=== PATIENT | male | born 1975 | race American Indian/Alaskan Native ===

== ENCOUNTER 2018-02-04 14:32 | Outpatient (CLI) | payer OTHER ==
[2018-02-04 15:14] LABS: Alanine Aminotransferase 9 units/L (7-56); Albumin 3.5 g/dL (3.9-5); BUN/Creatinine Ratio 11; Blood Urea Nitrogen 36 mg/dL (9-20); Calcium 9.2 mg/dL (8.4-10.2); Hemolysis Index 13
== END 2018-02-04 14:33 | disposition home or self-care (01) ==
LOC: LAB 14:32
PROVIDERS: ATTEND Internal Medicine
DX: E11.65 Type 2 diabetes mellitus with hyperglycemia (principal)
CPT/HCPCS: 36415; 80053

== ENCOUNTER 2018-03-17 09:54 | Emergency (ER) | payer MEDICAID, OTHER ==
[2018-03-17] MEDS ORDERED: ZOFRAN IV ONE (12:42)
[2018-03-17] MEDS ORDERED: PROTONIX IV ONE (12:42)
[2018-03-17] MEDS ORDERED: NACL 0.9% 50 ML ONE (12:56)
[2018-03-17] MEDS ORDERED: PROTONIX 80 MG in NACL 0.9% 100 ML IV SCH (13:00)
[2018-03-17 13:04] LABS: Basophils % (Auto) 0.8 % (0.0-1.8); Eosinophils % (Auto) 0.2 % (0.0-4.3); Hemoglobin 12.8 gm/dl (11.8-15.2); Lymphocytes # (Auto) 0.9 K/mm3 (1.2-5.4); Lymphocytes % (Auto) 19.4 % (13.4-35.0); Mean Corpuscular HGB Conc 34 % (32-34); Mean Corpuscular Hemoglobin 30 pg (28-32); Mean Corpuscular Volume 90 fl (84-94); Monocytes # (Auto) 0.3 K/mm3 (0.0-0.8); Platelet Count 244 K/mm3 (140-440); Red Blood Count 4.22 M/mm3 (3.65-5.03); Red Cell Distribution Width 13.9 % (13.2-15.2)
[2018-03-17 13:12] LABS: INR 0.89 (0.87-1.13)
--- NOTE | 2018-03-17 13:12 | Emergency Department Report ---
ED General Adult HPI - General Chief complaint: High BP Time Seen by Provider: 03/17/18 12:06 Source: patient Mode of arrival: Wheelchair Limitations: Physical Limitation - History of Present Illness Initial comments: Patient presents to the emergency department with a chief complaint of abdominal pain with nausea vomiting. Patient states the symptoms started this morning and after multiple episodes of vomiting he began to have some blood with his emesis. Patient states this has happened to him before and he think is due to his diabetes. Patient describes as normal pain is sharp and diffuse and denies anything making it better or worse. -: Sudden Location: abdomen Radiation: non-radiation Severity scale (0 -10): 8 Quality: burning, sharp Consistency: constant Improves with: none Worsens with: none Associated Symptoms: denies other symptoms Treatments Prior to Arrival: none - Related Data Previous Rx's Medication Instructions Recorded Last Taken Type Esomeprazole Magnesium [NexIUM] 20 mg PO QDAY #30 suspdr.pkt 03/17/18 Unknown Rx HYDROcodone/APAP 5-325 [Anderson 1 each PO Q6HR PRN #15 tablet 03/17/18 Unknown Rx 5/325] Metoclopramide [Reglan] 10 mg PO TID #21 tab 03/17/18 Unknown Rx Ondansetron [Zofran Odt] 4 mg PO Q4HR PRN #20 tab.rapdis 03/17/18 Unknown Rx Allergies Allergy/AdvReac Type Severity Reaction Status Date / Time No Known Allergies Allergy Verified 03/17/18 11:54 ED Review of Systems ROS: Stated complaint: Other details as noted in HPI Comment: All other systems reviewed and negative Constitutional: denies: chills, fever Eyes: denies: eye pain, eye discharge, vision change ENT: denies: ear pain, throat pain Respiratory: denies: cough, shortness of breath, wheezing Cardiovascular: denies: chest pain, palpitations Endocrine: no symptoms reported Gastrointestinal: abdominal pain, nausea, vomiting. denies: diarrhea Genitourinary: denies: urgency, dysuria Musculoskeletal: denies: back pain, joint swelling, arthralgia Skin: denies: rash, lesions Neurological: denies: headache, weakness, paresthesias Psychiatric: denies: anxiety, depression Hematological/Lymphatic: denies: easy bleeding, easy bruising ED Past Medical Hx - Past Medical History Previous Medical History?: Yes Hx Hypertension: Yes Hx Diabetes: Yes Hx Renal Disease: Yes - Surgical History Past Surgical History?: Yes Additional Surgical History: right foot amputation - Social History Smoking Status: Current Every Day Smoker Substance Use Type: None - Medications Home Medications: Home Medications Medication Instructions Recorded Confirmed Last Taken Type Esomeprazole Magnesium [NexIUM] 20 mg PO QDAY #30 suspdr.pkt 03/17/18 Unknown Rx HYDROcodone/APAP 5-325 [Anderson 1 each PO Q6HR PRN #15 tablet 03/17/18 Unknown Rx 5/325] Metoclopramide [Reglan] 10 mg PO TID #21 tab 03/17/18 Unknown Rx Ondansetron [Zofran Odt] 4 mg PO Q4HR PRN #20 tab.rapdis 03/17/18 Unknown Rx ED Physical Exam - General Limitations: Physical Limitation General appearance: alert, in no apparent distress - Head Head exam: Present: atraumatic, normocephalic - Eye Eye exam: Present: normal appearance, PERRL, EOMI - ENT ENT exam: Present: mucous membranes moist - Neck Neck exam: Present: normal inspection - Respiratory Respiratory exam: Present: normal lung sounds bilaterally. Absent: respiratory distress, wheezes, rales, rhonchi - Cardiovascular Cardiovascular Exam: Present: normal rhythm, tachycardia. Absent: systolic murmur, diastolic murmur, rubs, gallop - GI/Abdominal GI/Abdominal exam: Present: soft, tenderness, normal bowel sounds, other ( tenderness to palpation diffusely). Absent: distended - Rectal Rectal exam: Present: deferred - Extremities Exam Extremities exam: Present: normal inspection - Back Exam Back exam: Present: normal inspection - Neurological Exam Neurological exam: Present: alert, oriented X3, CN II-XII intact. Absent: motor sensory deficit - Psychiatric Psychiatric exam: Present: normal affect, normal mood - Skin Skin exam: Present: warm, dry, intact, normal color. Absent: rash ED Course Vital Signs 03/17/18 03/17/18 03/17/18 11:54 12:20 12:21 Temperature 99.2 F Pulse Rate 122 H 107 H Respiratory 16 13 Rate Blood Pressure 193/146 Blood Pressure 168/103 [right] O2 Sat by Pulse 98 99 98 Oximetry 03/17/18 03/17/18 03/17/18 12:30 13:00 13:30 Temperature Pulse Rate 101 H 97 H 102 H Respiratory 14 14 18 Rate Blood Pressure 190/101 159/88 165/96 Blood Pressure [right] O2 Sat by Pulse 96 96 97 Oximetry 03/17/18 03/17/18 03/17/18 14:36 15:00 15:30 Temperature Pulse Rate 108 H 111 H 103 H Respiratory 13 17 Rate Blood Pressure 177/118 177/118 158/106 Blood Pressure [right] O2 Sat by Pulse 98 99 Oximetry 03/17/18 16:00 Temperature Pulse Rate 102 H Respiratory 17 Rate Blood Pressure 177/109 Blood Pressure [right] O2 Sat by Pulse 96 Oximetry ED Medical Decision Making - Lab Data Result diagrams: 03/17/18 12:46 03/17/18 12:46 Lab Results 03/17/18 03/17/18 03/17/18 Range/Units 11:41 12:46 12:46 WBC 4.5 (4.5-11.0) K/mm3 RBC 4.22 (3.65-5.03) M/mm3 Hgb 12.8 (11.8-15.2) gm/dl Hct 38.0 (35.5-45.6) % MCV 90 (84-94) fl MCH 30 (28-32) pg MCHC 34 (32-34) % RDW 13.9 (13.2-15.2) % Plt Count 244 (140-440) K/mm3 Lymph % (Auto) 19.4 (13.4-35.0) % [place] % (Auto) 6.0 (0.0-7.3) % Eos % (Auto) 0.2 (0.0-4.3) % Baso % (Auto) 0.8 (0.0-1.8) % Lymph # 0.9 L (1.2-5.4) K/mm3 [place] # 0.3 (0.0-0.8) K/mm3 Eos # 0.0 (0.0-0.4) K/mm3 Baso # 0.0 (0.0-0.1) K/mm3 Seg Neutrophils % 73.6 H (40.0-70.0) % Seg Neutrophils # 3.3 (1.8-7.7) K/mm3 PT 12.5 (12.2-14.9) Sec. INR 0.89 (0.87-1.13) APTT 21.5 L (24.2-36.6) Sec. Sodium (137-145) mmol/L Potassium (3.6-5.0) mmol/L Chloride (98-107) mmol/L Carbon Dioxide (22-30) mmol/L Anion Gap mmol/L BUN (9-20) mg/dL Creatinine (0.8-1.5) mg/dL Estimated GFR ml/min BUN/Creatinine Ratio % Glucose (75-100) mg/dL POC Glucose 200 H (70-105) Calcium (8.4-10.2) mg/dL Total Bilirubin (0.1-1.2) mg/dL AST (5-40) units/L ALT (7-56) units/L Alkaline Phosphatase (35-129) units/L Total Protein (6.3-8.2) g/dL Albumin (3.9-5) g/dL Albumin/Globulin Ratio % Lipase (13-60) units/L 03/17/18 Range/Units 12:46 WBC (4.5-11.0) K/mm3 RBC (3.65-5.03) M/mm3 Hgb (11.8-15.2) gm/dl Hct (35.5-45.6) % MCV (84-94) fl MCH (28-32) pg MCHC (32-34) % RDW (13.2-15.2) % Plt Count (140-440) K/mm3 Lymph % (Auto) (13.4-35.0) % [place] % (Auto) (0.0-7.3) % Eos % (Auto) (0.0-4.3) % Baso % (Auto) (0.0-1.8) % Lymph # (1.2-5.4) K/mm3 [place] # (0.0-0.8) K/mm3 Eos # (0.0-0.4) K/mm3 Baso # (0.0-0.1) K/mm3 Seg Neutrophils % (40.0-70.0) % Seg Neutrophils # (1.8-7.7) K/mm3 PT (12.2-14.9) Sec. INR (0.87-1.13) APTT (24.2-36.6) Sec. Sodium 144 (137-145) mmol/L Potassium 4.1 (3.6-5.0) mmol/L Chloride 100.8 (98-107) mmol/L Carbon Dioxide 25 (22-30) mmol/L Anion Gap 22 mmol/L BUN 39 H (9-20) mg/dL Creatinine 3.7 H (0.8-1.5) mg/dL Estimated GFR 22 ml/min BUN/Creatinine Ratio 11 % Glucose 226 H (75-100) mg/dL POC Glucose (70-105) Calcium 10.2 (8.4-10.2) mg/dL Total Bilirubin 0.40 (0.1-1.2) mg/dL AST 22 (5-40) units/L ALT 14 (7-56) units/L Alkaline Phosphatase 120 (35-129) units/L Total Protein 7.4 (6.3-8.2) g/dL Albumin 3.7 L (3.9-5) g/dL Albumin/Globulin Ratio 1.0 % Lipase 12 L (13-60) units/L - Radiology Data Referring Physician: DANIELLA SHELTON Patient Name: JAVI SAN Date of : 1975 Sex: Male Report Date: 2018-03-17 Report Status: [place] [id number] Cat Scan Report Signed Patient: JAVI SAN MR#: [id number] : 1975 Acct :[id number] Age/Sex: 42 / M ADM Date: 03/17/18 Loc: ED Attending Dr: Ordering Physician: DANIELLA SHELTON MD Date of Service: 03/17/18 Procedure(s): CT abdomen pelvis wo con Accession Number(s): [id number] cc: DANIELLA SHELTON MD CT ABDOMEN PELVIS WITHOUT CONTRAST: HISTORY: abdominal pain. COMPARISON: none. TECHNIQUE: Helical CT in 1.25mm intervals without IV contrast. Sagittal and coronal reconstructions. FINDINGS: Lung bases: Normal. Liver: Normal. Biliary system: Normal. Pancreas: Normal. Spleen: Normal. Kidneys/ureters/bladder: There is marked distention of the bladder. No bladder filling defect or wall abnormality is appreciated. The kidneys and collecting systems are unremarkable. Adrenal glands: Normal. Aorta: Normal. Intestines: Normal. Appendix: Normal. Pelvic viscera: Normal. Ascites: None. Adenopathy: None. Musculoskeletal: Normal. IMPRESSION: No acute inflammatory process. Distended bladder. Correlate for bladder obstruction. Transcribed By: TTR Dictated By: LÁZARO ORTIZ JR, MD Electronically Authenticated By: LÁZARO ORTIZ JR, MD Signed Date/Time: 02/24 DD/ 13 TD/TT: 03/17/181414 Critical care attestation.: If time is entered above; I have spent that time in minutes in the direct care of this critically ill patient, excluding procedure time. ED Disposition Clinical Impression: Gastritis, Nausea & vomiting, Abdominal pain Disposition: TO HOME OR SELFCARE Is pt being admited?: No Does the pt Need Aspirin: No Condition: Stable Instructions: Gastritis (ED), Abdominal Pain (ED), Acute Nausea and Vomiting ( ED) Additional Instructions: return if worse Prescriptions: Esomeprazole Magnesium [NexIUM] 20 mg PO QDAY #30 suspdr.pkt HYDROcodone/APAP 5-325 [Anderson 5/325] 1 each PO Q6HR PRN #15 tablet PRN Reason: Pain Metoclopramide [Reglan] 10 mg PO TID #21 tab Ondansetron [Zofran Odt] 4 mg PO Q4HR PRN #20 tab.rapdis PRN Reason: Nausea Referrals: [facility] [Provider Group] - 3-5 Days YAZMIN FELIX MD [Staff Physician] - 3-5 Days Time of Disposition: 16:34
[2018-03-17 13:13] LABS: Partial Thromboplastin Time 21.5 Sec. (24.2-36.6)
[2018-03-17 13:27] LABS: Albumin 3.7 g/dL (3.9-5); Calcium 10.2 mg/dL (8.4-10.2)
--- NOTE | 2018-03-17 14:16 | Cat Scan Report ---
CT ABDOMEN PELVIS WITHOUT CONTRAST: HISTORY: abdominal pain. COMPARISON: none. TECHNIQUE: Helical CT in 1.25mm intervals without IV contrast. Sagittal and coronal reconstructions. FINDINGS: Lung bases: Normal. Liver: Normal. Biliary system: Normal. Pancreas: Normal. Spleen: Normal. Kidneys/ureters/bladder: There is marked distention of the bladder. No bladder filling defect or wall abnormality is appreciated. The kidneys and collecting systems are unremarkable. Adrenal glands: Normal. Aorta: Normal. Intestines: Normal. Appendix: Normal. Pelvic viscera: Normal. Ascites: None. Adenopathy: None. Musculoskeletal: Normal. IMPRESSION: No acute inflammatory process. Distended bladder. Correlate for bladder obstruction.
[2018-03-17] MEDS ORDERED: HALDOL IM ONE ×2 (14:27→14:38)
[2018-03-17 17:05] VITALS: BP 173/106
== END 2018-03-17 17:00 | disposition home or self-care (01) ==
LOC: XRAY 09:54 → ED 09:54 → EDSTATUS 10:32 → ED 17:00
DX: K29.70 Gastritis, unspecified, without bleeding (principal); R11.2 Nausea with vomiting, unspecified; I12.9 Hypertensive chronic kidney disease with stage 1 through stage 4 chronic kidney disease, or unspecified chronic kidney disease; E11.22 Type 2 diabetes mellitus with diabetic chronic kidney disease; N18.9 Chronic kidney disease, unspecified; F17.200 Nicotine dependence, unspecified, uncomplicated; Z89.431 Acquired absence of right foot
CPT/HCPCS: 36415; 74176; 80053; 82962; 83690; 85025; 85610; 85730; 96372; 96374; 96375; 99284; C9113; J1630; J2405

== ENCOUNTER 2018-03-27 11:24 | Outpatient (CLI) | payer OTHER ==
--- NOTE | 2018-03-27 17:59 | XRay Report ---
FINAL REPORT EXAM: XR KNEE 1-2V RT HISTORY: DEPRESSION, DIABETES, NERVE DAMAGE, DISABILITY EXAM TECHNIQUE: Frontal and lateral views right knee Comparison: None FINDINGS: t there is no evidence of fracture, subluxation, lytic or blastic change or periosteal reaction. There to be loss of space of the medial and lateral compartments of the tibiofemoral joint. The soft tissues are notable for evidence of atherosclerotic vascular calcification. IMPRESSION: 1. No evidence of acute bony abnormality. 2. Possible degenerative change tibiofemoral joint. If further imaging is required, MRI may be helpful. 3. Atherosclerotic vascular calcification.
--- NOTE | 2018-03-27 18:15 | XRay Report ---
FINAL REPORT EXAM: XR SHOULDER BILAT 2+V HISTORY: DEPRESSION, DIABETES, NERVE DAMAGE, DISABILITY EXAM TECHNIQUE: Frontal and Y-views both shoulders FINDINGS: The bony structures are unremarkable in appearance. The joint spaces appear to be maintained. The soft tissues are unremarkable. IMPRESSION: 1. No plain film evidence of bony or soft tissue abnormality. If further imaging is required, MRI may be helpful.
== END 2018-03-27 11:25 | disposition home or self-care (01) ==
LOC: XRAY 11:24
PROVIDERS: ATTEND Internal Medicine
DX: Z02.71 Encounter for disability determination (principal); I70.0 Atherosclerosis of aorta; E11.9 Type 2 diabetes mellitus without complications; F32.9 Major depressive disorder, single episode, unspecified; I10 Essential (primary) hypertension; Z87.891 Personal history of nicotine dependence

== ENCOUNTER 2018-07-10 17:04 | Outpatient (CLI) | payer MEDICAID ==
[2018-07-10 17:41] LABS: Basophils % (Auto) 0.7 % (0.0-1.8); Eosinophils # (Auto) 0.1 K/mm3 (0.0-0.4); Eosinophils % (Auto) 1.9 % (0.0-4.3); Hematocrit 36.4 % (35.5-45.6); Lymphocytes # (Auto) 1.3 K/mm3 (1.2-5.4); Lymphocytes % (Auto) 28.7 % (13.4-35.0); Mean Corpuscular HGB Conc 33 % (32-34); Mean Corpuscular Volume 91 fl (84-94); Monocytes # (Auto) 0.2 K/mm3 (0.0-0.8); Monocytes % (Auto) 4.7 % (0.0-7.3); Platelet Count 238 K/mm3 (140-440); Red Blood Count 3.98 M/mm3 (3.65-5.03); Red Cell Distribution Width 13.9 % (13.2-15.2)
[2018-07-10 17:50] LABS: Creatinine,Urine 88.3 mg/dL (0.1-20.0)
[2018-07-10 18:01] LABS: BUN/Creatinine Ratio 9; Blood Urea Nitrogen 38 mg/dL (9-20); Calcium 8.4 mg/dL (8.4-10.2)
[2018-07-10 18:02] LABS: Alanine Aminotransferase 9 units/L (7-56); Albumin 3.6 g/dL (3.9-5); Hemolysis Index 11
[2018-07-10 18:03] LABS: Protein/Creatinine Ratio,Urine 3.9
[2018-07-10 18:21] LABS: Bacteria,Urine 1+ /HPF (Negative); Bilirubin,Urine NEG (Negative); Blood,Urine NEG (Negative); Color,Urine Yellow (Yellow); Urobilinogen,Urine < 2.0 mg/dL (<2.0)
[2018-07-10 18:23] LABS: Protein,Urine >500 mg/dL (Negative)
== END 2018-07-10 17:05 | disposition home or self-care (01) ==
LOC: LAB 17:04
PROVIDERS: ATTEND Internal Medicine Nephrology
DX: I12.9 Hypertensive chronic kidney disease with stage 1 through stage 4 chronic kidney disease, or unspecified chronic kidney disease (principal); N18.4 Chronic kidney disease, stage 4 (severe); Z87.891 Personal history of nicotine dependence
CPT/HCPCS: 36415; 80053; 81001; 82570; 83970; 84100; 84156; 85025

== ENCOUNTER 2018-08-22 11:22 | Emergency (ER) | payer MEDICAID ==
[2018-08-22] MEDS ORDERED: HumuLIN R IV ONE ×3 (11:54→18:02)
[2018-08-22] MEDS ORDERED: NACL 0.9% 1000 ML 1,000 ML IV ONE ×4 (11:54→17:39)
--- NOTE | 2018-08-22 11:58 | Emergency Department Report ---
- General Chief complaint: Hyperglycemia Stated complaint: HIGH SUGAR/BLOOD PRESSURE Time Seen by Provider: 08/22/18 11:43 Source: EMS Mode of arrival: Ambulatory Limitations: No Limitations - History of Present Illness Initial comments: 42-year-old male with a past medical history of diabetes currently on insulin, hypertension, and chronic renal insufficiency presents to the hospital for high sugar and high blood pressure. Patient states he feels good other than pain at his left upper arm where AV fistula versus graft was placed 2 days ago. He has somewhat slowed speech but is alert and oriented and requesting water to drink because he is thirsty. He states his family called EMS. He denies nausea, vomiting, abdominal pain, cough, shortness of breath, or fever. 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 Patient states he did not take his blood pressure or insulin this morning but he is having difficulty remembering. EMS reports that family gave unknown dose of 70/30 this morning prior to arrival. - Related Data Previous Rx's Medication Instructions Recorded Last Taken Type Esomeprazole Magnesium [NexIUM] 20 mg PO QDAY #30 suspdr.pkt 03/17/18 Unknown Rx HYDROcodone/APAP 5-325 [[place] 1 each PO Q6HR PRN #15 tablet 03/17/18 Unknown Rx 5/325] Metoclopramide [Reglan] 10 mg PO TID #21 tab 03/17/18 Unknown Rx Ondansetron [Zofran Odt] 4 mg PO Q4HR PRN #20 tab.rapdis 03/17/18 Unknown Rx Allergies Allergy/AdvReac Type Severity Reaction Status Date / Time No Known Allergies Allergy Verified 03/17/18 11:54 ED Review of Systems ROS: Stated complaint: HIGH SUGAR/BLOOD PRESSURE Other details as noted in HPI Comment: All other systems reviewed and negative ED Past Medical Hx - Past Medical History Hx Hypertension: Yes Hx Diabetes: Yes Hx Renal Disease: Yes (chronic renal insufficiency) - Surgical History Additional Surgical History: right foot amputation. 08/2018 left arm AV access for dialysis - Social History Smoking Status: Current Every Day Smoker Substance Use Type: None - Medications Home Medications: Home Medications Medication Instructions Recorded Confirmed Last Taken Type Esomeprazole Magnesium [NexIUM] 20 mg PO QDAY #30 suspdr.pkt 03/17/18 Unknown Rx HYDROcodone/APAP 5-325 [[place] 1 each PO Q6HR PRN #15 tablet 03/17/18 Unknown Rx 5/325] Metoclopramide [Reglan] 10 mg PO TID #21 tab 03/17/18 Unknown Rx Ondansetron [Zofran Odt] 4 mg PO Q4HR PRN #20 tab.rapdis 03/17/18 Unknown Rx ED Physical Exam - General Limitations: No Limitations - Other Other exam information: General: No limitations, patient is alert in no acute distress Head exam: Atraumatic, normocephalic Eyes exam: Normal appearance, pupils equal reactive to light, extraocular movements intact ENT: Moist mucous membrane, normal oropharynx Neck exam: Normal inspection, full range of motion, no meningismus nontender Respiratory exam: Clear to auscultation bilateral, no wheezes, rales, crackles Cardiovascular: Normal rate and rhythm, normal heart sounds Abdomen: Soft, nondistended, and nontender, with normal bowel sounds, no rebound, or guarding Extremity: Full range of motion, left upper arm surgical site of fistula/graft with positive thrill. Some ecchymosis at the site without warmth or erythema. Tender to palpation. Peg intact without wound dehiscence or drainage. Back: Normal Inspection, full range of motion, no tenderness Neurologic: Alert, slow speech but clear, oriented x3, cranial nerves intact, no motor or sensory deficit Psychiatric: normal affect, normal mood Skin: Warm, dry, intact ED Course Vital Signs 08/22/18 08/22/18 08/22/18 11:56 12:00 12:16 Temperature 98 F Pulse Rate 83 Respiratory 16 Rate Blood Pressure 189/107 189/107 Blood Pressure 189/107 [Right] O2 Sat by Pulse 99 98 97 Oximetry 08/22/18 08/22/18 08/22/18 12:30 12:32 12:45 Temperature Pulse Rate 75 Respiratory Rate Blood Pressure 189/107 189/107 Blood Pressure [Right] O2 Sat by Pulse 96 98 Oximetry 08/22/18 08/22/18 08/22/18 12:50 13:00 13:15 Temperature Pulse Rate Respiratory 16 11 L 10 L Rate Blood Pressure 183/108 Blood Pressure [Right] O2 Sat by Pulse 97 98 Oximetry 08/22/18 08/22/18 08/22/18 13:31 13:45 14:00 Temperature Pulse Rate Respiratory 13 11 L 10 L Rate Blood Pressure 183/108 151/92 Blood Pressure [Right] O2 Sat by Pulse 98 97 Oximetry 08/22/18 08/22/18 08/22/18 14:15 14:30 15:00 Temperature Pulse Rate Respiratory 9 L 12 9 L Rate Blood Pressure 148/95 150/89 Blood Pressure [Right] O2 Sat by Pulse 97 96 Oximetry 08/22/18 08/22/18 08/22/18 15:15 15:30 15:45 Temperature Pulse Rate Respiratory 9 L 11 L 14 Rate Blood Pressure 155/91 155/91 Blood Pressure [Right] O2 Sat by Pulse 98 97 97 Oximetry 08/22/18 08/22/18 08/22/18 16:00 16:15 16:30 Temperature Pulse Rate Respiratory 10 L 10 L 10 L Rate Blood Pressure 167/95 155/91 154/87 Blood Pressure [Right] O2 Sat by Pulse 96 98 97 Oximetry 08/22/18 08/22/18 08/22/18 16:45 17:00 17:15 Temperature Pulse Rate Respiratory 9 L 9 L 10 L Rate Blood Pressure 154/87 142/83 154/87 Blood Pressure [Right] O2 Sat by Pulse 97 95 96 Oximetry 08/22/18 08/22/18 08/22/18 17:30 17:49 18:01 Temperature Pulse Rate Respiratory 10 L Rate Blood Pressure 140/81 140/81 140/81 Blood Pressure [Right] O2 Sat by Pulse 94 100 72 L Oximetry 08/22/18 08/22/18 08/22/18 18:31 18:46 19:00 Temperature Pulse Rate Respiratory Rate Blood Pressure 165/90 165/90 156/90 Blood Pressure [Right] O2 Sat by Pulse 97 96 Oximetry ED Medical Decision Making - Lab Data Result diagrams: 08/22/18 12:02 08/22/18 12:02 Lab Results 08/22/18 08/22/18 08/22/18 Range/Units 12:02 12:02 12:02 WBC 3.5 L (4.5-11.0) K/mm3 RBC 4.01 (3.65-5.03) M/mm3 Hgb 12.2 (11.8-15.2) gm/dl Hct 36.7 (35.5-45.6) % MCV 92 (84-94) fl MCH 31 (28-32) pg MCHC 33 (32-34) % RDW 13.1 L (13.2-15.2) % Plt Count 248 (140-440) K/mm3 Lymph % (Auto) 28.7 (13.4-35.0) % [place] % (Auto) 6.6 (0.0-7.3) % Eos % (Auto) 2.2 (0.0-4.3) % Baso % (Auto) 0.6 (0.0-1.8) % Lymph # 1.0 L (1.2-5.4) K/mm3 [place] # 0.2 (0.0-0.8) K/mm3 Eos # 0.1 (0.0-0.4) K/mm3 Baso # 0.0 (0.0-0.1) K/mm3 Seg Neutrophils % 61.9 (40.0-70.0) % Seg Neutrophils # 2.1 (1.8-7.7) K/mm3 VBG pH 7.304 L (7.320-7.420) Sodium 129 L (137-145) mmol/L Potassium 4.5 (3.6-5.0) mmol/L Chloride 91.1 L (98-107) mmol/L Carbon Dioxide 25 (22-30) mmol/L Anion Gap 17 mmol/L BUN 45 H (9-20) mg/dL Creatinine 4.6 H (0.8-1.5) mg/dL Estimated GFR 17 ml/min BUN/Creatinine Ratio 10 % Glucose 563 H* (75-100) mg/dL POC Glucose (70-105) Calcium 9.1 (8.4-10.2) mg/dL Phosphorus (2.5-4.5) mg/dL Magnesium (1.7-2.3) mg/dL Total Bilirubin 0.30 (0.1-1.2) mg/dL AST 18 (5-40) units/L ALT < 5 L (7-56) units/L Alkaline Phosphatase 110 (35-129) units/L Total Protein 7.0 (6.3-8.2) g/dL Albumin 3.7 L (3.9-5) g/dL Albumin/Globulin Ratio 1.1 % Urine Color (Yellow) Urine Turbidity (Clear) Urine pH (5.0-7.0) Ur Specific [place] (1.003-1.030) Urine Protein (Negative) mg/dL Urine Glucose (UA) (Negative) mg/dL Urine Ketones (Negative) mg/dL Urine Blood (Negative) Urine Nitrite (Negative) Urine Bilirubin (Negative) Urine Urobilinogen (<2.0) mg/dL Ur Leukocyte Esterase (Negative) Urine WBC (Auto) (0.0-6.0) /HPF Urine RBC (Auto) (0.0-6.0) /HPF U Epithel Cells (Auto) (0-13.0) /HPF Urine Bacteria (Auto) (Negative) /HPF 08/22/18 08/22/18 08/22/18 Range/Units 12:02 12:12 12:57 WBC (4.5-11.0) K/mm3 RBC (3.65-5.03) M/mm3 Hgb (11.8-15.2) gm/dl Hct (35.5-45.6) % MCV (84-94) fl MCH (28-32) pg MCHC (32-34) % RDW (13.2-15.2) % Plt Count (140-440) K/mm3 Lymph % (Auto) (13.4-35.0) % [place] % (Auto) (0.0-7.3) % Eos % (Auto) (0.0-4.3) % Baso % (Auto) (0.0-1.8) % Lymph # (1.2-5.4) K/mm3 [place] # (0.0-0.8) K/mm3 Eos # (0.0-0.4) K/mm3 Baso # (0.0-0.1) K/mm3 Seg Neutrophils % (40.0-70.0) % Seg Neutrophils # (1.8-7.7) K/mm3 VBG pH (7.320-7.420) Sodium (137-145) mmol/L Potassium (3.6-5.0) mmol/L Chloride (98-107) mmol/L Carbon Dioxide (22-30) mmol/L Anion Gap mmol/L BUN (9-20) mg/dL Creatinine (0.8-1.5) mg/dL Estimated GFR ml/min BUN/Creatinine Ratio % Glucose (75-100) mg/dL POC Glucose 471 H (70-105) Calcium (8.4-10.2) mg/dL Phosphorus 3.40 (2.5-4.5) mg/dL Magnesium 2.30 (1.7-2.3) mg/dL Total Bilirubin (0.1-1.2) mg/dL AST (5-40) units/L ALT (7-56) units/L Alkaline Phosphatase (35-129) units/L Total Protein (6.3-8.2) g/dL Albumin (3.9-5) g/dL Albumin/Globulin Ratio % Urine Color Straw (Yellow) Urine Turbidity Clear (Clear) Urine pH 5.0 (5.0-7.0) Ur Specific [place] 1.013 (1.003-1.030) Urine Protein 100 mg/dl (Negative) mg/dL Urine Glucose (UA) >=500 (Negative) mg/dL Urine Ketones Tr (Negative) mg/dL Urine Blood Sm (Negative) Urine Nitrite Neg (Negative) Urine Bilirubin Neg (Negative) Urine Urobilinogen < 2.0 (<2.0) mg/dL Ur Leukocyte Esterase Neg (Negative) Urine WBC (Auto) 1.0 (0.0-6.0) /HPF Urine RBC (Auto) 1.0 (0.0-6.0) /HPF U Epithel Cells (Auto) < 1.0 (0-13.0) /HPF Urine Bacteria (Auto) 1+ (Negative) /HPF 08/22/18 08/22/18 08/22/18 Range/Units 13:14 14:02 14:52 WBC (4.5-11.0) K/mm3 RBC (3.65-5.03) M/mm3 Hgb (11.8-15.2) gm/dl Hct (35.5-45.6) % MCV (84-94) fl MCH (28-32) pg MCHC (32-34) % RDW (13.2-15.2) % Plt Count (140-440) K/mm3 Lymph % (Auto) (13.4-35.0) % [place] % (Auto) (0.0-7.3) % Eos % (Auto) (0.0-4.3) % Baso % (Auto) (0.0-1.8) % Lymph # (1.2-5.4) K/mm3 [place] # (0.0-0.8) K/mm3 Eos # (0.0-0.4) K/mm3 Baso # (0.0-0.1) K/mm3 Seg Neutrophils % (40.0-70.0) % Seg Neutrophils # (1.8-7.7) K/mm3 VBG pH (7.320-7.420) Sodium (137-145) mmol/L Potassium (3.6-5.0) mmol/L Chloride (98-107) mmol/L Carbon Dioxide (22-30) mmol/L Anion Gap mmol/L BUN (9-20) mg/dL Creatinine (0.8-1.5) mg/dL Estimated GFR ml/min BUN/Creatinine Ratio % Glucose (75-100) mg/dL POC Glucose 436 H 312 H 287 H (70-105) Calcium (8.4-10.2) mg/dL Phosphorus (2.5-4.5) mg/dL Magnesium (1.7-2.3) mg/dL Total Bilirubin (0.1-1.2) mg/dL AST (5-40) units/L ALT (7-56) units/L Alkaline Phosphatase (35-129) units/L Total Protein (6.3-8.2) g/dL Albumin (3.9-5) g/dL Albumin/Globulin Ratio % Urine Color (Yellow) Urine Turbidity (Clear) Urine pH (5.0-7.0) Ur Specific [place] (1.003-1.030) Urine Protein (Negative) mg/dL Urine Glucose (UA) (Negative) mg/dL Urine Ketones (Negative) mg/dL Urine Blood (Negative) Urine Nitrite (Negative) Urine Bilirubin (Negative) Urine Urobilinogen (<2.0) mg/dL Ur Leukocyte Esterase (Negative) Urine WBC (Auto) (0.0-6.0) /HPF Urine RBC (Auto) (0.0-6.0) /HPF U Epithel Cells (Auto) (0-13.0) /HPF Urine Bacteria (Auto) (Negative) /HPF 08/22/18 Range/Units 16:41 WBC (4.5-11.0) K/mm3 RBC (3.65-5.03) M/mm3 Hgb (11.8-15.2) gm/dl Hct (35.5-45.6) % MCV (84-94) fl MCH (28-32) pg MCHC (32-34) % RDW (13.2-15.2) % Plt Count (140-440) K/mm3 Lymph % (Auto) (13.4-35.0) % [place] % (Auto) (0.0-7.3) % Eos % (Auto) (0.0-4.3) % Baso % (Auto) (0.0-1.8) % Lymph # (1.2-5.4) K/mm3 [place] # (0.0-0.8) K/mm3 Eos # (0.0-0.4) K/mm3 Baso # (0.0-0.1) K/mm3 Seg Neutrophils % (40.0-70.0) % Seg Neutrophils # (1.8-7.7) K/mm3 VBG pH (7.320-7.420) Sodium (137-145) mmol/L Potassium (3.6-5.0) mmol/L Chloride (98-107) mmol/L Carbon Dioxide (22-30) mmol/L Anion Gap mmol/L BUN (9-20) mg/dL Creatinine (0.8-1.5) mg/dL Estimated GFR ml/min BUN/Creatinine Ratio % Glucose (75-100) mg/dL POC Glucose 235 H (70-105) Calcium (8.4-10.2) mg/dL Phosphorus (2.5-4.5) mg/dL Magnesium (1.7-2.3) mg/dL Total Bilirubin (0.1-1.2) mg/dL AST (5-40) units/L ALT (7-56) units/L Alkaline Phosphatase (35-129) units/L Total Protein (6.3-8.2) g/dL Albumin (3.9-5) g/dL Albumin/Globulin Ratio % Urine Color (Yellow) Urine Turbidity (Clear) Urine pH (5.0-7.0) Ur Specific [place] (1.003-1.030) Urine Protein (Negative) mg/dL Urine Glucose (UA) (Negative) mg/dL Urine Ketones (Negative) mg/dL Urine Blood (Negative) Urine Nitrite (Negative) Urine Bilirubin (Negative) Urine Urobilinogen (<2.0) mg/dL Ur Leukocyte Esterase (Negative) Urine WBC (Auto) (0.0-6.0) /HPF Urine RBC (Auto) (0.0-6.0) /HPF U Epithel Cells (Auto) (0-13.0) /HPF Urine Bacteria (Auto) (Negative) /HPF - EKG Data -: EKG Interpreted by Me EKG shows normal: sinus rhythm, axis (qrs 51), QRS complexes (rsd 94), ST-T waves (no stemi) Rate: normal (75) - Medical Decision Making Patient had an extended below ED stay. His sugar was elevated but no signs of DKA. His blood pressure was elevated but no signs of hypertensive emergency. BP improved at the clonidine. Creatinine is stable. Patient received several liters of normal saline in the ED before he was able to produce a urine sample. Patient glucose was in the 200s prior to receiving additional insulin. He will be discharged home to take his medications as prescribed. - Differential Diagnosis DKA, infection, hypertensive emergency, HHNK Critical Care Time: No Critical care attestation.: If time is entered above; I have spent that time in minutes in the direct care of this critically ill patient, excluding procedure time. ED Disposition Clinical Impression: Uncontrolled diabetes mellitus, Uncontrolled hypertension Disposition: DC-01 TO HOME OR SELFCARE Is pt being admited?: No Does the pt Need Aspirin: No Condition: Stable Instructions: Hypertension (ED), Diabetes Mellitus Type 2 in Adults (ED) Additional Instructions: Continue your medication as prescribed. Follow up with your doctor or the clinic/doctor provided. Return if symptoms worsen as indicated by your discharge instructions Referrals: DAT MIKE MD [Primary Care Provider] - 3-5 Days Time of Disposition: 19:25
[2018-08-22] MEDS ORDERED: CATAPRES PO ONE (12:06)
[2018-08-22 12:34] LABS: Basophils % (Auto) 0.6 % (0.0-1.8); Eosinophils # (Auto) 0.1 K/mm3 (0.0-0.4); Eosinophils % (Auto) 2.2 % (0.0-4.3); Hematocrit 36.7 % (35.5-45.6); Hemoglobin 12.2 gm/dl (11.8-15.2); Lymphocytes % (Auto) 28.7 % (13.4-35.0); Mean Corpuscular HGB Conc 33 % (32-34); Mean Corpuscular Volume 92 fl (84-94); Monocytes # (Auto) 0.2 K/mm3 (0.0-0.8); Monocytes % (Auto) 6.6 % (0.0-7.3); Platelet Count 248 K/mm3 (140-440); Red Blood Count 4.01 M/mm3 (3.65-5.03); Red Cell Distribution Width 13.1 % (13.2-15.2)
[2018-08-22] MEDS ORDERED: D50W (25GM) Syringe IV PRN (12:43)
[2018-08-22 12:49] LABS: Albumin 3.7 g/dL (3.9-5); BUN/Creatinine Ratio 10; Blood Urea Nitrogen 45 mg/dL (9-20); Calcium 9.1 mg/dL (8.4-10.2); Hemolysis Index 5
[2018-08-22] MEDS ORDERED: HumuLIN R 100 UNITS in NACL 0.9% 99 ML IV SCH (13:00)
[2018-08-22 13:10] LABS: Alanine Aminotransferase < 5 units/L (7-56)
[2018-08-22] MEDS ORDERED: NACL 0.9% 100 ML ONE (15:49)
[2018-08-22 18:51] LABS: Bacteria,Urine 1+ /HPF (Negative); Bilirubin,Urine NEG (Negative); Blood,Urine SM (Negative); Color,Urine Straw (Yellow); Urobilinogen,Urine < 2.0 mg/dL (<2.0)
[2018-08-22 20:52] VITALS: BP 138/74
== END 2018-08-22 20:43 | disposition home or self-care (01) ==
LOC: ED 11:22
DX: E11.65 Type 2 diabetes mellitus with hyperglycemia (principal); I10 Essential (primary) hypertension
CPT/HCPCS: 36415; 80053; 81001; 82805; 82962; 83735; 84100; 85025; 93005; 93010; 96361; 96374; 96376; 99284; J7030; J1815

== ENCOUNTER 2018-11-06 08:08 | Inpatient (IN) | payer MEDICAID ==
[2018-11-06] MEDS ORDERED: CALCIUM CHLORIDE IV ONE ×2 (08:15→10:02)
[2018-11-06] MEDS ORDERED: NACL 0.9% 1000 ML 1,000 ML ONE ×2 (08:15→16:27)
[2018-11-06] MEDS ORDERED: ADRENALIN ONE (08:15)
[2018-11-06] MEDS ORDERED: ARTIFICIAL TEARS OPHTH OINT OU PRN (08:26)
[2018-11-06] MEDS ORDERED: VASELINE LIP THERAPY TP PRN (08:26)
[2018-11-06] MEDS ORDERED: NACL 0.9% 1000 ML 1,000 ML IV ONE ×5 (08:33→13:11)
[2018-11-06] MEDS ORDERED: MAXIPIME/NS 2 GM/100 ML 2 GM/100 ML BAG IV ONE (08:35)
--- NOTE | 2018-11-06 08:35 | Emergency Department Report ---
ED General Adult HPI - General Stated complaint: DIABETIC COMA Time Seen by Provider: 11/06/18 08:08 Source: EMS Mode of arrival: Stretcher Limitations: Altered Mental Status, Physical Limitation - History of Present Illness Initial comments: Patient is a 42-year-old male that presents to the emergency room for unresponsiveness. Patient's last known well time 10 PM night prior. Patient brought in by EMS patient's had his sugar checked by EMS read high. Patient is a known noncompliant diabetic. Illness report received. EMS states the patient was found down in feces and urine. Mother called EMS. Mother stated to EMS that the patient is noncompliant with his insulin. -: Sudden Treatments Prior to Arrival: none - Related Data Previous Rx's Medication Instructions Recorded Last Taken Type Esomeprazole Magnesium [NexIUM] 20 mg PO QDAY #30 suspdr.pkt 03/17/18 Unknown Rx HYDROcodone/APAP 5-325 [[place] 1 each PO Q6HR PRN #15 tablet 03/17/18 Unknown Rx 5/325] Metoclopramide [Reglan] 10 mg PO TID #21 tab 03/17/18 Unknown Rx Ondansetron [Zofran Odt] 4 mg PO Q4HR PRN #20 tab.rapdis 03/17/18 Unknown Rx Allergies Allergy/AdvReac Type Severity Reaction Status Date / Time No Known Allergies Allergy Verified 03/17/18 11:54 ED Review of Systems ROS: Stated complaint: DIABETIC COMA Other details as noted in HPI Comment: Unobtainable due to pts medical conditions ED Past Medical Hx - Past Medical History Previous Medical History?: Yes Hx Hypertension: Yes Hx Diabetes: Yes Hx Renal Disease: Yes (chronic renal insufficiency) - Surgical History Past Surgical History?: Yes Additional Surgical History: right foot amputation. 08/2018 left arm AV access for dialysis - Family History Family history: no significant - Social History Smoking Status: Current Every Day Smoker Substance Use Type: None - Medications Home Medications: Home Medications Medication Instructions Recorded Confirmed Last Taken Type Esomeprazole Magnesium [NexIUM] 20 mg PO QDAY #30 suspdr.pkt 03/17/18 Unknown Rx HYDROcodone/APAP 5-325 [[place] 1 each PO Q6HR PRN #15 tablet 03/17/18 Unknown Rx 5/325] Metoclopramide [Reglan] 10 mg PO TID #21 tab 03/17/18 Unknown Rx Ondansetron [Zofran Odt] 4 mg PO Q4HR PRN #20 tab.rapdis 03/17/18 Unknown Rx ED Physical Exam - General Limitations: Altered Mental Status, Physical Limitation General appearance: obtunded - Head Head exam: Present: atraumatic, normocephalic - Eye Eye exam: Present: other (peoples fixed and dilated) - ENT ENT exam: Present: mucous membranes dry - Neck Neck exam: Present: normal inspection - Respiratory Respiratory exam: Present: decreased breath sounds - Cardiovascular Cardiovascular Exam: Present: regular rate, normal rhythm, tachycardia - GI/Abdominal GI/Abdominal exam: Present: soft - Rectal Rectal exam: Present: deferred - Extremities Exam Extremities exam: Present: normal inspection - Neurological Exam Neurological exam: Present: altered - Expanded Neurological Exam Expanded Best Eye Response (Ericka): (1) no response Best Motor Response (Ericka): (1) no motor response Best Verbal Response ([place]): (1) no verbal response [place] Total: 3 - Skin Skin exam: Present: warm, dry, intact, normal color. Absent: rash ED Course Vital Signs 11/06/18 11/06/18 11/06/18 08:02 08:21 08:28 Temperature Pulse Rate 69 Pulse Rate [ Right Radial] Respiratory 8 L Rate Blood Pressure 95/26 90/44 95/23 Blood Pressure [Left] O2 Sat by Pulse 98 100 Oximetry 11/06/18 11/06/18 11/06/18 08:40 09:00 09:19 Temperature Pulse Rate 122 H 116 H 115 H Pulse Rate [ Right Radial] Respiratory 24 25 H 100 H Rate Blood Pressure 187/62 99/33 126/45 Blood Pressure 91/26 [Left] O2 Sat by Pulse 100 100 100 Oximetry 11/06/18 11/06/18 11/06/18 09:21 09:41 10:01 Temperature Pulse Rate 209 H 188 H Pulse Rate [ Right Radial] Respiratory 26 H 23 24 Rate Blood Pressure 91/26 88/32 83/31 Blood Pressure [Left] O2 Sat by Pulse 100 100 100 Oximetry 11/06/18 11/06/18 11/06/18 10:21 10:38 10:41 Temperature Pulse Rate Pulse Rate [ Right Radial] Respiratory 23 35 H 33 H Rate Blood Pressure 79/21 87/36 Blood Pressure [Left] O2 Sat by Pulse 100 100 100 Oximetry 11/06/18 11/06/18 11/06/18 10:42 11:01 11:05 Temperature 93.2 F L Pulse Rate 105 H Pulse Rate [ Right Radial] Respiratory 41 H Rate Blood Pressure 96/39 Blood Pressure [Left] O2 Sat by Pulse 100 Oximetry 11/06/18 11/06/18 11/06/18 11:25 11:36 11:40 Temperature Pulse Rate 20 L Pulse Rate [ Right Radial] Respiratory 26 H Rate Blood Pressure 96/37 82/34 91/36 Blood Pressure [Left] O2 Sat by Pulse 100 100 100 Oximetry 11/06/18 11/06/18 11/06/18 12:00 12:20 14:22 Temperature Pulse Rate 106 H Pulse Rate [ 105 H Right Radial] Respiratory 24 25 H Rate Blood Pressure 89/37 96/39 Blood Pressure [Left] O2 Sat by Pulse 100 100 Oximetry - Reevaluation(s) Reevaluation #1: Patient brought in by EMS. Report received from EMS. Patient intubated upon arrival. Patient intubated without difficulty, See procedure note. Prior to arrival cardiology consultation for abnormal EKG sent over by EMS. 11/06/18 08:05 Dr. Cevallos cardio at bedside. Patient went into cardiac arrest, see code note./ 11/06/18 08:15 Patient had spontaneous return of circulation. 11/06/18 08:22 Patient's blood pressure better. The patient on the ventilator. Chest x-ray done. 11/06/18 08:40 Central line placed. Timeout done. See procedure note. Central line placed in the right femoral without difficulty. Epi drip will be started after central line placed 11/06/18 09:35 Will be given fluids. Patient's in DKA and will be given DKA protocol along with insulin and calcium. Patient will be given bicarbonate for acidosis. 11/06/18 10:[address] We'll continue to monitor blood pressure and increase e pinephrine drip and give fluids 11/06/18 11:18 Reevaluation #2: Discussed case with family. Family wants everything done and wants patient to be a full code 11/06/18 12:15 Discussed all results with family. Patient will be admitted to the hospitalist service and into the ICU. Family agrees to plan of care. 11/06/18 12:32 She will be given more fluids and Kayexalate. 11/06/18 13:15 - Consultations Consultation #1: Dr. cevallos at bedside 11/06/18 08:20 Discussed case again with Dr. Cevallos and Dr. Cevallos's to see the patient 11/06/18 10:10 Consultation #2: Hospitalist consulted for admission. Hospitalist to admit patient. Hospitalist to assume care patient. 11/06/18 12:32 - Central Line Placement Right Femoral Consent Obtained: emergent situation Time Out Performed: Yes Patient Placed on Monitor/Pulse Ox: Yes MD Prep: mask, gown, gloves Central Line Prep: Chlorhexidine scrub, sterile drapes applied Ultrasound Used for Placement: Yes Central Line Lumen Inserted: triple Bloods Obtained for Lab: Yes Central Line Position: good blood return, all ports aspirated, flus, sutured in place with 2-0 Dressing Applied: Tegaderm Patient Tolerated Procedure: well Complications: none - EJ/Peripheral Line Neck L Time Out Performed: Yes Indications: nurses unable to establis Skin Cleansed in Sterile Fashion: Yes Size: 20 Dressing Placed: Tegaderm Patient Tolerated Procedure: well - Intubation Time Out Performed: Yes Sedative: Etomidate Paralytic: Succinylcholine Laryngoscope: fiberoptic video scope Size: 4 Assist Device Used: fiberoptic device ET Tube Size: 7.5 Tube Secured Depth (cm): 24 Tube Secured Location: teeth Tube Placement Confirmation: visualized tube passing t, equal breath sounds bilat, no breath sounds over epi, confirmation by capnometr Patient Tolerated Procedure: well Intubation Complications: none ED Medical Decision Making - Lab Data Result diagrams: 11/06/18 09:02 11/06/18 14:15 - EKG Data -: EKG Interpreted by Me EKG shows normal: sinus rhythm, axis Rate: tachycardia - EKG Data Interpretation: LVH, other (wide QRS complex. Spiked T waves.) - Radiology Data Radiology results: report reviewed, image reviewed interpreted by me: X-ray done and it shows good position of ET tube. CT HEAD WITHOUT CONTRAST: IMPRESSION: No acute intracranial process. Mild volume loss and chronic white matter changes. Few small chronic lacunar infarcts as described. - Medical Decision Making Patient is a 42-year-old male that presents emergency room for unresponsive episode. Patient minimally responsive upon arrival in the ER. Patient was intubated immediately. After intubation patient had a cardiac arrest and during recess cessation. Had spontaneous return of circulation. Patient placed on epi drip. Patient given multiple saline boluses. Patient has multiple lab abnormalities to include but not limited to metabolic acidosis, DKA, hyperkalemia, elevated WBC. Patient admits since the ICU and to the hospitalist service. Patient's CT of the head negative. Patient's chest x-ray shows ET tube in good place. Patient given patient also had a left EJ placed for immediate access on arrival. - Differential Diagnosis DKA. Acidosis. Unresponsive. Prolonged downtime Critical Care Time: Yes Critical care attestation.: If time is entered above; I have spent that time in minutes in the direct care of this critically ill patient, excluding procedure time. Critical Care Time: 80 minutes ED Disposition Clinical Impression: Unresponsive, Cardiac arrest, Signs of return of spontaneous circulation, Metabolic acidosis DKA (diabetic ketoacidoses) Qualifiers: Diabetes mellitus type: type 2 Diabetes mellitus complication detail: with coma Qualified Code(s): E11.11 - Type 2 diabetes mellitus with ketoacidosis with coma Hypotension Qualifiers: Hypotension type: unspecified hypotension type Qualified Code(s): I95.9 - Hypotension, unspecified Disposition: DC-09 OP ADMIT IP TO THIS HOSP Is pt being admited?: Yes Does the pt Need Aspirin: No Condition: Critical Time of Disposition: 13:16
[2018-11-06] MEDS ORDERED: SUBLIMAZE IV PRN (08:37)
--- NOTE | 2018-11-06 08:46 | XRay Report ---
AP CHEST: HISTORY: Endotracheal tube placement The endotracheal tube terminates 6 cm superior to the rolando. Nasogastric tube terminates in the cardia of the stomach. AP view of the chest demonstrates a normal mediastinal and cardiac contour with clear lungs and normal bony and soft tissue structures. IMPRESSION: Unremarkable AP chest.
[2018-11-06 09:33] LABS: Mean Corpuscular HGB Conc 26 % (32-34); Monocytes % (Auto) 4.1 % (0.0-7.3); Platelet Count 268 K/mm3 (140-440); Red Cell Distribution Width 15.7 % (13.2-15.2)
[2018-11-06 09:38] LABS: Hematocrit 40.4 % (35.5-45.6); Hemoglobin 10.5 gm/dl (11.8-15.2); Mean Corpuscular Volume 119 fl (84-94)
[2018-11-06 09:44] LABS: Albumin 2.9 g/dL (3.9-5)
[2018-11-06] MEDS ORDERED: ADRENALIN 8 MG in NACL 0.9% 250ML 242 ML IV ONE (10:00)
[2018-11-06] MEDS ORDERED: D50W (25GM) Syringe IV PRN ×2 (10:02→13:45)
[2018-11-06 10:54] LABS: Calcium 7.8 mg/dL (8.4-10.2)
--- NOTE | 2018-11-06 10:59 | Consultation ---
History of Present Illness Consult date: 11/06/18 History of present illness: This 42-year-old patient brought in by injection molding supervisor because he was found unconscious on the floor at home. History mainly obtained by talking to your doctor and underwent emergency squad who brought him to the hospital. Because he is known to have diabetes mellitus blood sugar was checked and it is very high. On the way to the hospital patient was bagged for respirations. In the emergency room patient was intubated after giving succinyl choline. EKG was done which revealed wide QRS complexes and there was ST depression in inferior leads and some ST elevation in anterior leads. At this point to STEMI was called. Dr. Francie Olsen was in the catheter builder therefore he requested me to go on to see the patient for evaluation STEMI and any further cardiac intervention to be done. Patient had a bradycardia and wide QRS complexes. Then he went into asystole and pulseless electrical activity. Started CPR. At this point we did not know his laboratory findings. CPR was done along with ACLS. The rhythm was checked intermittently and there was no rhythm. After stopping CPR patient noted to have rhythm. EKG done did not reveal any evidence of acute myocardial infarction. He was noted to have peaked T waves. Subsequently his lab data revealed potassium of 7.7 stage V kidney disease, very high liver enzymes in 1999. Patient was given insulin along with bicarbonate. His glucose came back thousand 419 mg percent. He had marked acidosis and the blood gases and also lactic acidosis was high at 9. Patient was also given IV normal saline and epinephrine drip. Patient was placed on respirator. His pupils were fixed and dilated. At this point I'm waiting to talk to patient his mother to get more history. Also we will talk to report severe anoxic brain damage. Past History Past Medical History: ESRD (patient has AV fistula for hemodialysis since August of this year. It was felt he was not getting it to lately. Patient also has history of amputation of toes for PAD. No definite history of coronary artery disease), hypertension Medications and Allergies Allergies Allergy/AdvReac Type Severity Reaction Status Date / Time No Known Allergies Allergy Verified 03/17/18 11:54 Home Medications Medication Instructions Recorded Confirmed Last Taken Type Esomeprazole Magnesium [NexIUM] 20 mg PO QDAY #30 suspdr.pkt 03/17/18 Unknown Rx HYDROcodone/APAP 5-325 [[place] 1 each PO Q6HR PRN #15 tablet 03/17/18 Unknown Rx 5/325] Metoclopramide [Reglan] 10 mg PO TID #21 tab 03/17/18 Unknown Rx Ondansetron [Zofran Odt] 4 mg PO Q4HR PRN #20 tab.rapdis 03/17/18 Unknown Rx Active Meds: Active Medications Dextrose (D50w (25gm) Syringe) 0 ml IV PRN PRN PRN Reason: Hypoglycemia Fentanyl (Sublimaze) 50 mcg IV Q10MIN PRN PRN Reason: ANALGESIA Hydrophilic Ointment (Vaseline Lip Therapy) 1 applic TP Q2HR PRN PRN Reason: Dry Lips Fentanyl Citrate (Fentanyl Drip Premix) 2,000 mcg in 100 mls @ 4.309 mls/hr IV TITR MARIAJOSE; Protocol Epinephrine 8 mg/ Sodium (Chloride) 250 mls @ 3.75 mls/hr IV TITR ONE; Protocol Stop: 11/09/18 04:39 Last Titration: 11/06/18 10:41 Dose: 4 mcg/min, 7.5 mls/hr Documented by: Insulin Human Regular 100 (units/ Sodium Chloride) 100 mls @ 1 mls/hr IV TITR MARIAJOSE; Protocol Sodium Chloride (Nacl 0.9% 1000 Ml) 1,000 mls @ 999 mls/hr IV BOLUS ONE Stop: 11/06/18 11:02 Last Admin: 11/06/18 10:36 Dose: 999 mls/hr Documented by: Multi-Ingred Cream/Lotion/Oil/Oint (Artificial Tears Ophth Oint) 1 applic OU Q4HR PRN PRN Reason: Dry Eye(s) Physical Examination Vital Signs BP Pulse Ox 95/26 98 11/06/18 08:02 11/06/18 08:02 HEENT: Positive: Other (patient is intubated. Not responsive. Not on any IV sedation. Pupils are fixed and dilated.) Cardiac: Positive: S1/S2. Negative: Audible Murmur Lungs: Positive: clear to auscultation Abdomen: Positive: Unremarkable, Soft, Active Bowel Sounds Extremities: Present: Cool. Absent: edema Results 11/06/18 09:02 11/06/18 09:02 Cardiac Enzymes 11/06/18 Range/Units 09:02 AST 2679 H (5-40) units/L CBC 11/06/18 Range/Units 09:02 WBC 20.1 H (4.5-11.0) K/mm3 RBC 3.40 L (3.65-5.03) M/mm3 Hgb 10.5 L (11.8-15.2) gm/dl Hct 40.4 (35.5-45.6) % Plt Count 268 (140-440) K/mm3 Comprehensive Metabolic Panel 11/06/18 Range/Units 09:02 Sodium 129 L (137-145) mmol/L Potassium 7.7 H* (3.6-5.0) mmol/L Chloride 79.7 L (98-107) mmol/L Carbon Dioxide 4 L* (22-30) mmol/L BUN 93 H (9-20) mg/dL Creatinine 7.4 H (0.8-1.5) mg/dL Glucose 1469 H* (75-100) mg/dL Calcium 9.0 (8.4-10.2) mg/dL AST 2679 H (5-40) units/L ALT 1175 H (7-56) units/L Alkaline Phosphatase 124 (35-129) units/L Total Protein 6.1 L (6.3-8.2) g/dL Albumin 2.9 L (3.9-5) g/dL EKG interpretations - Telemetry EKG Rhythm: Marked Bradycardia - EKG Sinus rhythms and dysrhythmias: sinus arrest or pause Ventricular dysrhythmias: idioventricular escape rh AV and intraventricular conduction: intraventricular conducti Repolarization changes or abnormalities: Suggestive of hyperkalemia (wide QRS complexes and ST depression evaluation probably all due to severe hyperkalemia. The last EKG does not show any ST elevation but continues to show peaked T waves.) Assessment and Plan Cardiopulmonary arrest. Severe hyperkalemia. Lactic acidosis and respiratory acidosis. Diabetic ketoacidosis. End stage renal disease not compliant with the hemodialysis. History of hypertension. History of peripheral vascular disease. Anoxic encephalopathy. Minimal troponin elevation. Discussion; supportive care. When his mother arrives Will discuss and make DO NOT RESUSCITATE and possibility disconnect life support.
[2018-11-06 11:05] LABS: Band Neutrophils # (Manual) 3.6 K/mm3; Basophils % (Manual) 0 % (0.0-1.8); Eosinophils % (Manual) 0 % (0.0-4.3); Total Cells Counted 100
[2018-11-06 11:06] LABS: Macrocytosis 2+; Platelet Estimate Consistent w Auto
[2018-11-06 11:23] LABS: Bilirubin,Urine NEG (Negative); Blood,Urine SM (Negative); Color,Urine Straw (Yellow); Urobilinogen,Urine < 2.0 mg/dL (<2.0); WBC,Urine < 1.0 /HPF (0.0-6.0)
[2018-11-06 11:30] LABS: Amphetamine Screen,Urine PRESUMPTIVE NEGATIVE; Benzodiazepines Screen,Urine PRESUMPTIVE NEGATIVE; Cocaine Screen,Urine PRESUMPTIVE NEGATIVE; Methadone Screen,Urine PRESUMPTIVE NEGATIVE; Opiate Screen,Urine PRESUMPTIVE NEGATIVE
[2018-11-06] MEDS: HumuLIN R 100 UNITS in NACL 0.9% 99 ML IV SCH ×2 (11:32→21:36)
[2018-11-06 11:46] LABS: Cannabinoid Screen,Urine PRESUMPTIVE POSITIVE
--- NOTE | 2018-11-06 11:52 | Cat Scan Report ---
CT HEAD WITHOUT CONTRAST: HISTORY: Altered mental status. TECHNIQUE: Sequential 2.5mm CT images. COMPARISON: MR brain without contrast dated 09/25/18. FINDINGS: Cerebral Parenchyma: Mild cortical volume loss and mild chronic white matter changes are identified. Chronic lacunar infarcts are identified in the left thalamus and right subinsular region. No large chronic infarct. Cerebellum: Within normal limits. Brainstem: Within normal limits. Ventricles: Normal. Sella: Normal. Extra-axial spaces: Normal. Basal Cisterns: Normal. Intracranial Hemorrhage: None. Midline Shift: None. Calvarium: Normal. Sinuses: Normal. Mastoid Air Cells: Normal. Visualized Orbits: Normal. IMPRESSION: No acute intracranial process. Mild volume loss and chronic white matter changes. Few small chronic lacunar infarcts as described.
[2018-11-06 12:38] LABS: Calcium 8.4 mg/dL (8.4-10.2)
[2018-11-06] MEDS ORDERED: SODIUM CHLORIDE FLUSH SYRINGE 10 ML IV PRN (12:42)
--- NOTE | 2018-11-06 12:44 | History and Physical Report ---
History of Present Illness Chief complaint: Unresponsive History of present illness: 42 YO Male with ESRD on HD, HTN, DM, PAD, Nicotine Dependence presents to ED for evaluation. Pt is unable to provide history. Pt history taken from EMS, ED Staff, and patient family who is at bedside during exam. As per family, the carmen harris was in his usual state of health around bedtime at 2200hrs. Pt was found down and unresponsive by family today this morning. EMS notified, and upon arrival the patient was found to be in distress. Pt Intubated and placed on vent support. Pt transported to [facility]. Pt seen and evaluated in ED and found to have STEMI, Acute on Chronic Renal Failure, Acidosis, Acute Respiratory Failure, Sepsis, and DKA. Pt experienced cardiac arrest in ED and was treated IAW ACLS protocol with return of perfusing cardiac rhythm. Pt found to have signs of Anoxic Brain Injury. Pt admitted to ICU and initiated on sepsis protocol and treated with IVF resuscitation therapy, IV pressor support. Pt has poor prognosi s. Neurology consulted in ED, Cardiology consulted in ED, and Nephrology team consulted in ED. No further history obtainable. Past History Past Medical History: ESRD (patient has AV fistula for hemodialysis since August of this year. It was felt he was not getting it to lately. Patient also has history of amputation of toes for PAD. No definite history of coronary artery disease), hypertension Past Surgical History: Other (Right Foot Surgery, AV Fistula) Social history: single, smoking. denies: alcohol abuse, prescription drug abuse Family history: diabetes, hypertension Medications and Allergies Allergies Allergy/AdvReac Type Severity Reaction Status Date / Time No Known Allergies Allergy Verified 03/17/18 11:54 Home Medications Medication Instructions Recorded Confirmed Last Taken Type Esomeprazole Magnesium [NexIUM] 20 mg PO QDAY #30 suspdr.pkt 03/17/18 Unknown Rx HYDROcodone/APAP 5-325 [[place] 1 each PO Q6HR PRN #15 tablet 03/17/18 Unknown Rx 5/325] Metoclopramide [Reglan] 10 mg PO TID #21 tab 03/17/18 Unknown Rx Ondansetron [Zofran Odt] 4 mg PO Q4HR PRN #20 tab.rapdis 03/17/18 Unknown Rx Active Meds: Active Medications Dextrose (D50w (25gm) Syringe) 0 ml IV PRN PRN PRN Reason: Hypoglycemia Fentanyl (Sublimaze) 50 mcg IV Q10MIN PRN PRN Reason: ANALGESIA Hydrophilic Ointment (Vaseline Lip Therapy) 1 applic TP Q2HR PRN PRN Reason: Dry Lips Fentanyl Citrate (Fentanyl Drip Premix) 2,000 mcg in 100 mls @ 4.309 mls/hr IV TITR MARIAJOSE; Protocol Epinephrine 8 mg/ Sodium (Chloride) 250 mls @ 3.75 mls/hr IV TITR ONE; Protocol Stop: 11/09/18 04:39 Last Titration: 11/06/18 11:35 Dose: 7 mcg/min, 13.125 mls/hr Documented by: Insulin Human Regular 100 (units/ Sodium Chloride) 100 mls @ 1 mls/hr IV TITR MARIAJOSE; Protocol Last Admin: 11/06/18 11:32 Dose: 8 units/hr, 8 mls/hr Documented by: Multi-Ingred Cream/Lotion/Oil/Oint (Artificial Tears Ophth Oint) 1 applic OU Q4HR PRN PRN Reason: Dry Eye(s) Review of Systems ROS unobtainable: due to endotracheal tube, due to mental status Exam - Constitutional Vitals: Temp Pulse Resp BP Pulse Ox 93.2 F L 106 H 25 H 96/39 100 11/06/18 10:42 11/06/18 12:20 11/06/18 12:20 11/06/18 12:20 11/06/18 12:20 General appearance: Present: severe distress - EENT Eyes: Present: irregular pupil, mydriasis - Neck Neck: Present: supple, normal ROM - Respiratory Respiratory effort: labored Respiratory: bilateral: diminished, rhonchi - Cardiovascular Heart Sounds: Present: S1 & S2. Absent: rub, click Peripheral Pulses: abnormal (1+,= bilaterally) - Abdominal General gastrointestinal: Present: soft, non-tender, non-distended, normal bowel sounds Male genitourinary: Present: normal - Integumentary Integumentary: Present: clear, dry, clammy, decreased turgor - Musculoskeletal Musculoskeletal: generalized weakness - Psychiatric Psychiatric: no appropriate mood/affect, no intact judgment & insight, no memory intact - Neurologic Neurologic: no CNII-XII intact, focal deficits, no moves all extremities, no gait normal Results - Labs CBC & Chem 7: 11/06/18 09:02 11/06/18 15:21 Labs: Abnormal lab results 11/06/18 11/06/18 11/06/18 Range/Units 08:22 09:02 09:02 WBC 20.1 H (4.5-11.0) K/mm3 RBC 3.40 L (3.65-5.03) M/mm3 Hgb 10.5 L (11.8-15.2) gm/dl MCV 119 H (84-94) fl MCHC 26 L (32-34) % RDW 15.7 H (13.2-15.2) % Seg Neutrophils % 80.1 H (40.0-70.0) % Seg Neuts % (Manual) 76.0 H (40.0-70.0) % Lymphocytes % (Manual) 4.0 L (13.4-35.0) % Nucleated RBC % 1.0 H (0.0-0.9) % Seg Neutrophils # 16.1 H (1.8-7.7) K/mm3 Seg Neutrophils # Man 15.3 H (1.8-7.7) K/mm3 Lymphocytes # (Manual) 0.8 L (1.2-5.4) K/mm3 POC ABG pH (7.35-7.45) Sodium 129 L (137-145) mmol/L Potassium 7.7 H* (3.6-5.0) mmol/L Chloride 79.7 L (98-107) mmol/L Carbon Dioxide 4 L* (22-30) mmol/L BUN 93 H (9-20) mg/dL Creatinine 7.4 H (0.8-1.5) mg/dL Glucose 1469 H* (75-100) mg/dL POC Glucose > 500 H (70-105) Lactic Acid (0.7-2.0) mmol/L Calcium (8.4-10.2) mg/dL Phosphorus (2.5-4.5) mg/dL Magnesium (1.7-2.3) mg/dL AST 2679 H (5-40) units/L ALT 1175 H (7-56) units/L Total Protein 6.1 L (6.3-8.2) g/dL Albumin 2.9 L (3.9-5) g/dL Salicylates (2.8-20.0) mg/dL Acetaminophen (10.0-30.0) ug/mL 11/06/18 11/06/18 11/06/18 Range/Units 09:02 09:02 09:02 WBC (4.5-11.0) K/mm3 RBC (3.65-5.03) M/mm3 Hgb (11.8-15.2) gm/dl MCV (84-94) fl MCHC (32-34) % RDW (13.2-15.2) % Seg Neutrophils % (40.0-70.0) % Seg Neuts % (Manual) (40.0-70.0) % Lymphocytes % (Manual) (13.4-35.0) % Nucleated RBC % (0.0-0.9) % Seg Neutrophils # (1.8-7.7) K/mm3 Seg Neutrophils # Man (1.8-7.7) K/mm3 Lymphocytes # (Manual) (1.2-5.4) K/mm3 POC ABG pH (7.35-7.45) Sodium (137-145) mmol/L Potassium (3.6-5.0) mmol/L Chloride (98-107) mmol/L Carbon Dioxide (22-30) mmol/L BUN (9-20) mg/dL Creatinine (0.8-1.5) mg/dL Glucose (75-100) mg/dL POC Glucose (70-105) Lactic Acid 9.40 H* (0.7-2.0) mmol/L Calcium (8.4-10.2) mg/dL Phosphorus (2.5-4.5) mg/dL Magnesium (1.7-2.3) mg/dL AST (5-40) units/L ALT (7-56) units/L Total Protein (6.3-8.2) g/dL Albumin (3.9-5) g/dL Salicylates < 0.3 L (2.8-20.0) mg/dL Acetaminophen < 5.0 L (10.0-30.0) ug/mL 11/06/18 11/06/18 11/06/18 Range/Units 09:03 10:19 10:19 WBC (4.5-11.0) K/mm3 RBC (3.65-5.03) M/mm3 Hgb (11.8-15.2) gm/dl MCV (84-94) fl MCHC (32-34) % RDW (13.2-15.2) % Seg Neutrophils % (40.0-70.0) % Seg Neuts % (Manual) (40.0-70.0) % Lymphocytes % (Manual) (13.4-35.0) % Nucleated RBC % (0.0-0.9) % Seg Neutrophils # (1.8-7.7) K/mm3 Seg Neutrophils # Man (1.8-7.7) K/mm3 Lymphocytes # (Manual) (1.2-5.4) K/mm3 POC ABG pH 6.841 L (7.35-7.45) Sodium 131 L (137-145) mmol/L Potassium 8.9 H* (3.6-5.0) mmol/L Chloride 85.3 L (98-107) mmol/L Carbon Dioxide 6 L* (22-30) mmol/L BUN 90 H (9-20) mg/dL Creatinine 7.1 H (0.8-1.5) mg/dL Glucose 1353 H* (75-100) mg/dL POC Glucose (70-105) Lactic Acid (0.7-2.0) mmol/L Calcium 7.8 L (8.4-10.2) mg/dL Phosphorus 14.50 H (2.5-4.5) mg/dL Magnesium 2.70 H (1.7-2.3) mg/dL AST (5-40) units/L ALT (7-56) units/L Total Protein (6.3-8.2) g/dL Albumin (3.9-5) g/dL Salicylates (2.8-20.0) mg/dL Acetaminophen (10.0-30.0) ug/mL 11/06/18 Range/Units 12:07 WBC (4.5-11.0) K/mm3 RBC (3.65-5.03) M/mm3 Hgb (11.8-15.2) gm/dl MCV (84-94) fl MCHC (32-34) % RDW (13.2-15.2) % Seg Neutrophils % (40.0-70.0) % Seg Neuts % (Manual) (40.0-70.0) % Lymphocytes % (Manual) (13.4-35.0) % Nucleated RBC % (0.0-0.9) % Seg Neutrophils # (1.8-7.7) K/mm3 Seg Neutrophils # Man (1.8-7.7) K/mm3 Lymphocytes # (Manual) (1.2-5.4) K/mm3 POC ABG pH (7.35-7.45) Sodium 135 L (137-145) mmol/L Potassium (3.6-5.0) mmol/L Chloride 88.4 L (98-107) mmol/L Carbon Dioxide (22-30) mmol/L BUN 89 H (9-20) mg/dL Creatinine 7.2 H (0.8-1.5) mg/dL Glucose (75-100) mg/dL POC Glucose (70-105) Lactic Acid (0.7-2.0) mmol/L Calcium (8.4-10.2) mg/dL Phosphorus (2.5-4.5) mg/dL Magnesium (1.7-2.3) mg/dL AST (5-40) units/L ALT (7-56) units/L Total Protein (6.3-8.2) g/dL Albumin (3.9-5) g/dL Salicylates (2.8-20.0) mg/dL Acetaminophen (10.0-30.0) ug/mL Assessment and Plan - Patient Problems (1) Respiratory failure Current Visit: Yes Status: Acute Qualifiers: Chronicity: acute Respiratory failure complication: hypoxia Qualified Code(s): J96.01 - Acute respiratory failure with hypoxia Plan to address problem: Admit to ICU, Pulmonary consulted in ED, Pt intubated on vent support, wean vent as tolerated, supplemental oxygen, ABG, chest x ray, The high probability of a clinically significant, sudden or life threatening deterioration of the [neuro, cardiac, renal, respiratory] system(s) required my full and direct attention, intervention and personal management. The aggregate critical care time was [65] minutes. This time is in addition to time spent performing reported procedures but includes the following: [x] Data Review and interpretation [x] Patient assessment and monitoring of vital signs [x] Documentation [x] Medication orders and management Extra 35 minutes dedicated to family counseling regarding care plan and patient prognosis. (2) Anoxic brain injury Current Visit: Yes Status: Acute Plan to address problem: CT head, neurology consulted, supportive care. Apnea test as per neurology team. (3) ARF (acute renal failure) with tubular necrosis Current Visit: Yes Status: Acute Plan to address problem: IVF resuscitation therapy, nephrology consulted in ED, repeat bmp, supportive care. (4) Cardiac arrest Current Visit: Yes Status: Acute Plan to address problem: S/P ACLS with return of perfusing rhythm, Cardiology consulted in ED. (5) DKA (diabetic ketoacidoses) Current Visit: Yes Status: Acute Qualifiers: Diabetes mellitus type: type 2 Diabetes mellitus complication detail: with coma Qualified Code(s): E11.11 - Type 2 diabetes mellitus with ketoacidosis with coma Plan to address problem: DKA protocol: IVF resuscitation therapy, serial bmp, insulin drip, serial BMP, monitor uop q shift, monitor anion gap, (6) Metabolic acidosis Current Visit: Yes Status: Acute Plan to address problem: IVF resuscitation therapy, IV bicarbonate therapy (7) ESRD (end stage renal disease) on dialysis Current Visit: Yes Status: Acute Plan to address problem: Nephrology consulted, supportive care, Poor prognosis, dialysis as per renal team. (8) DVT prophylaxis Current Visit: Yes Status: Acute Plan to address problem: SCD to BLE while in bed,
[2018-11-06] MEDS ORDERED: KIONEX PR ONE (13:12)
[2018-11-06] MEDS ORDERED: NACL 0.9% 1000 ML IV ONE (13:45)
[2018-11-06] MEDS ORDERED: VANCOMYCIN 1,750 MG in NACL 0.9% 500 ML 500 ML IV ONE (13:45)
[2018-11-06] MEDS ORDERED: HumuLIN R 100 UNITS in NACL 0.9% 99 ML IV SCH (14:00)
[2018-11-06] MEDS ORDERED: VANCOMYCIN PHARMACY TO DOSE IV SCH (14:00)
[2018-11-06] MEDS: LEVOPHED DRIP 4 MG/NS 250 ML 4 MG/250 ML BAG IV SCH ×2 (14:50→22:28)
[2018-11-06 15:12] LABS: Calcium 8.4 mg/dL (8.4-10.2)
[2018-11-06 16:19] LABS: Calcium 8.2 mg/dL (8.4-10.2)
--- NOTE | 2018-11-06 16:31 | Consultation ---
History of Present Illness - Reason for Consult Consult date: 11/06/18 acute renal failure - History of Present Illness This is a 42 y/o M with PMH of CKD Stage 4 not on HD, s/p left AVF (placed around September of 2018 per mother, maturing, not ready use), HTN, DM Type 2 on insulin, hx of seizure, and PAD who was found unresponsive this morning by his family. Pt was intubated and currently on ventilator in the ICU. Cardiology evaluated pt for STEMI, s/p cardiac arrest, ACLS protocol implemented with return of rhythm. Neurology consulted. We were consulted to evaluate this pt who has GENEVIEVE on CKD. Labs showed worsening renal function with SCr level of 7.3, K+ 6.0, CO2 4, lactic acid 8.5, BS >1200, and phosphorus of 13.00. I spoke with our office staff, last visit was in September of 2018 and lab work in August of 2018 showed SCr level of 4.6 with GFR 17. Pt also had left AVF placed around September of 2018 per mother. Pt seen in ICU intubated on ventilator. Past History Past Medical History: ESRD (patient has AV fistula for hemodialysis since August of this year. It was felt he was not getting it to lately. Patient also has history of amputation of toes for PAD. No definite history of coronary artery disease), hypertension Past Surgical History: Other (Right Foot Surgery, AV Fistula) Social history: single, smoking. denies: alcohol abuse, prescription drug abuse Family history: diabetes, hypertension Medications and Allergies Allergies Allergy/AdvReac Type Severity Reaction Status Date / Time No Known Allergies Allergy Verified 03/17/18 11:54 Home Medications Medication Instructions Recorded Confirmed Last Taken Type Esomeprazole Magnesium [NexIUM] 20 mg PO QDAY #30 suspdr.pkt 03/17/18 Unknown Rx HYDROcodone/APAP 5-325 [[place] 1 each PO Q6HR PRN #15 tablet 03/17/18 Unknown Rx 5/325] Metoclopramide [Reglan] 10 mg PO TID #21 tab 03/17/18 Unknown Rx Ondansetron [Zofran Odt] 4 mg PO Q4HR PRN #20 tab.rapdis 03/17/18 Unknown Rx Active Meds: Active Medications Dextrose (D50w (25gm) Syringe) 0 ml IV PRN PRN PRN Reason: Hypoglycemia Fentanyl (Sublimaze) 50 mcg IV Q10MIN PRN PRN Reason: ANALGESIA Hydrophilic Ointment (Vaseline Lip Therapy) 1 applic TP Q2HR PRN PRN Reason: Dry Lips Fentanyl Citrate (Fentanyl Drip Premix) 2,000 mcg in 100 mls @ 4.309 mls/hr IV TITR MARIAJOSE; Protocol Epinephrine 8 mg/ Sodium (Chloride) 250 mls @ 3.75 mls/hr IV TITR ONE; Protocol Stop: 11/09/18 04:39 Last Titration: 11/06/18 14:50 Dose: 10 mcg/min, 18.75 mls/hr Documented by: Insulin Human Regular 100 (units/ Sodium Chloride) 100 mls @ 1 mls/hr IV TITR MARIAJOSE; Protocol Last Titration: 11/06/18 13:19 Dose: 8 units/hr, 8 mls/hr Documented by: Norepinephrine (Levophed Drip 4 Mg/Ns 250 Ml) 4 mg in 250 mls @ 7.5 mls/hr IV TITR MARIAJOSE; Protocol Multi-Ingred Cream/Lotion/Oil/Oint (Artificial Tears Ophth Oint) 1 applic OU Q4HR PRN PRN Reason: Dry Eye(s) Sodium Chloride (Sodium Chloride Flush Syringe 10 Ml) 10 ml IV BID MARIAJOSE Sodium Chloride (Sodium Chloride Flush Syringe 10 Ml) 10 ml IV PRN PRN PRN Reason: LINE FLUSH Review of Systems ROS unobtainable: due to endotracheal tube, due to mental status Exam - Vital Signs Vital signs: Vital Signs BP Pulse Ox 95/26 98 11/06/18 08:02 11/06/18 08:02 - General Appearance General appearance: intubated EENT: ATNC Respiratory: Decreased Breath Sounds (intubated on ventilator ) Heart: tachycardia, S1S2, other (ACCESS: Left AVF +thrill and bruit noted (maturing not ready for use)) Gastrointestinal: Present: normoactive bowel sounds (orogastric tube intact) Integumentary: warm and dry Neurologic: other (intubated on ventilator) Musculoskeletal: Present: other (no edema to BLE) Psychiatric: other (unable to assess) Results - Lab Results 11/06/18 09:02 11/06/18 15:21 Most recent lab results Calcium 8.2 mg/dL (8.4-10.2) L 11/06/18 15:21 Phosphorus 13.00 mg/dL (2.5-4.5) H 11/06/18 14:15 Magnesium 2.60 mg/dL (1.7-2.3) H 11/06/18 14:15 Assessment and Plan Acute Kidney Injury secondary to ischemic ATN from hypotension, cardiac arrest, in setting of underlying hx CKD 4: High Anion Gap Metabolic Acidosis with elevated lactic acidosis with DKA: Hyperkalemia: Hyperphosphatemia: - Renal function reviewed, SCr level was 7.3 today - Per discussion with our office, pt had a SCr level of 4.6 with GFR 17 from labs in August of 2018 (Last office visit September of 2018) - Pt hemodynamically unstable for initiation of HD at this time, on maximum Epi drip and also started on second pressor Levaphed with BP in low 90s systolic. We will monitor renal function very closely and electrolytes with medical management. If renal function doesn't significantly improve or worsens or if no improvement in electrolytes and acid base disorders, pt will need dialysis catheter placement (AVF maturing and likely not ready to use) and start on HD. Mother agreeable to HD in case needed. - S/p sodium bicarbonate and kayexalate for hyperkalemia management - Started on pressors - S/p NS Boluses - Will defer to primary team for preference on IV fluids in setting of DKA management - Repeat BMP q 4 hrs per DKA protocol - Renally dose meds - Salgado Catheter: Yes - Renal plan d/w Dr Marti S/p Cardiopulmonary arrest. STEMI: - S/p CPR and ACLS protocol - Cardiology on board Diabetic Ketoacidosis. - On insulin drip - IV fluids as per primary team - Serial BMP - As per primary team Acute Encephalopathy - Neurology evaluated pt, Hypoxic brain injury with evidence of brainstem brainstem function being present per neurology note - As per Neurology
--- NOTE | 2018-11-06 16:59 | Consultation ---
Past History Past Medical History: ESRD (patient has AV fistula for hemodialysis since August of this year. It was felt he was not getting it to lately. Patient also has history of amputation of toes for PAD. No definite history of coronary artery disease), hypertension Past Surgical History: Other (Right Foot Surgery, AV Fistula) Social history: single, smoking. denies: alcohol abuse, prescription drug abuse Family history: diabetes, hypertension Medications and Allergies Allergies Allergy/AdvReac Type Severity Reaction Status Date / Time No Known Allergies Allergy Verified 03/17/18 11:54 Home Medications Medication Instructions Recorded Confirmed Last Taken Type Esomeprazole Magnesium [NexIUM] 20 mg PO QDAY #30 suspdr.pkt 03/17/18 Unknown Rx HYDROcodone/APAP 5-325 [[place] 1 each PO Q6HR PRN #15 tablet 03/17/18 Unknown Rx 5/325] Metoclopramide [Reglan] 10 mg PO TID #21 tab 03/17/18 Unknown Rx Ondansetron [Zofran Odt] 4 mg PO Q4HR PRN #20 tab.rapdis 03/17/18 Unknown Rx Active Meds: Active Medications Dextrose (D50w (25gm) Syringe) 0 ml IV PRN PRN PRN Reason: Hypoglycemia Fentanyl (Sublimaze) 50 mcg IV Q10MIN PRN PRN Reason: ANALGESIA Hydrophilic Ointment (Vaseline Lip Therapy) 1 applic TP Q2HR PRN PRN Reason: Dry Lips Fentanyl Citrate (Fentanyl Drip Premix) 2,000 mcg in 100 mls @ 4.309 mls/hr IV TITR MARIAJOSE; Protocol Epinephrine 8 mg/ Sodium (Chloride) 250 mls @ 3.75 mls/hr IV TITR ONE; Protocol Stop: 11/09/18 04:39 Last Titration: 11/06/18 14:50 Dose: 10 mcg/min, 18.75 mls/hr Documented by: Insulin Human Regular 100 (units/ Sodium Chloride) 100 mls @ 1 mls/hr IV TITR MARIAJOSE; Protocol Last Titration: 11/06/18 13:19 Dose: 8 units/hr, 8 mls/hr Documented by: Norepinephrine (Levophed Drip 4 Mg/Ns 250 Ml) 4 mg in 250 mls @ 7.5 mls/hr IV TITR MARIAJOSE; Protocol Last Admin: 11/06/18 14:50 Dose: 2 mcg/min, 7.5 mls/hr Documented by: Levetiracetam 1,000 mg/ (Dextrose) 110 mls @ 400 mls/hr IV DAILY MARIAJOSE Multi-Ingred Cream/Lotion/Oil/Oint (Artificial Tears Ophth Oint) 1 applic OU Q4HR PRN PRN Reason: Dry Eye(s) Sodium Chloride (Sodium Chloride Flush Syringe 10 Ml) 10 ml IV BID MARIAJOSE Sodium Chloride (Sodium Chloride Flush Syringe 10 Ml) 10 ml IV PRN PRN PRN Reason: LINE FLUSH Physical Examination - Vital Signs Vital Signs: Vital Signs BP Pulse Ox 95/26 98 11/06/18 08:02 11/06/18 08:02 Results - Laboratory Findings CBC and BMP: 11/06/18 09:02 11/06/18 15:21 Abnormal Lab Findings: Abnormal Labs 11/06/18 11/06/18 11/06/18 08:22 09:02 09:02 WBC 20.1 H RBC 3.40 L Hgb 10.5 L MCV 119 H MCHC 26 L RDW 15.7 H Seg Neutrophils % 80.1 H Seg Neuts % (Manual) 76.0 H Lymphocytes % (Manual) 4.0 L Nucleated RBC % 1.0 H Seg Neutrophils # 16.1 H Seg Neutrophils # Man 15.3 H Lymphocytes # (Manual) 0.8 L POC ABG pH POC ABG pCO2 POC ABG pO2 VBG pH Sodium 129 L Potassium 7.7 H* Chloride 79.7 L Carbon Dioxide 4 L* BUN 93 H Creatinine 7.4 H Glucose 1469 H* POC Glucose > 500 H Lactic Acid Calcium Phosphorus Magnesium AST 2679 H ALT 1175 H Total Protein 6.1 L Albumin 2.9 L Salicylates Acetaminophen 11/06/18 11/06/18 11/06/18 09:02 09:02 09:02 WBC RBC Hgb MCV MCHC RDW Seg Neutrophils % Seg Neuts % (Manual) Lymphocytes % (Manual) Nucleated RBC % Seg Neutrophils # Seg Neutrophils # Man Lymphocytes # (Manual) POC ABG pH POC ABG pCO2 POC ABG pO2 VBG pH Sodium Potassium Chloride Carbon Dioxide BUN Creatinine Glucose POC Glucose Lactic Acid 9.40 H* Calcium Phosphorus Magnesium AST ALT Total Protein Albumin Salicylates < 0.3 L Acetaminophen < 5.0 L 11/06/18 11/06/18 11/06/18 09:03 10:19 10:19 WBC RBC Hgb MCV MCHC RDW Seg Neutrophils % Seg Neuts % (Manual) Lymphocytes % (Manual) Nucleated RBC % Seg Neutrophils # Seg Neutrophils # Man Lymphocytes # (Manual) POC ABG pH 6.841 L POC ABG pCO2 POC ABG pO2 VBG pH Sodium 131 L Potassium 8.9 H* Chloride 85.3 L Carbon Dioxide 6 L* BUN 90 H Creatinine 7.1 H Glucose 1353 H* POC Glucose Lactic Acid Calcium 7.8 L Phosphorus 14.50 H Magnesium 2.70 H AST ALT Total Protein Albumin Salicylates Acetaminophen 11/06/18 11/06/18 11/06/18 12:07 13:22 13:22 WBC RBC Hgb MCV MCHC RDW Seg Neutrophils % Seg Neuts % (Manual) Lymphocytes % (Manual) Nucleated RBC % Seg Neutrophils # Seg Neutrophils # Man Lymphocytes # (Manual) POC ABG pH POC ABG pCO2 POC ABG pO2 VBG pH 6.982 L* Sodium 135 L Potassium 7.0 H* D Chloride 88.4 L Carbon Dioxide 5 L* BUN 89 H Creatinine 7.2 H Glucose 1326 H* POC Glucose Lactic Acid 8.50 H* Calcium Phosphorus Magnesium AST ALT Total Protein Albumin Salicylates Acetaminophen 11/06/18 11/06/18 11/06/18 14:15 14:15 15:21 WBC RBC Hgb MCV MCHC RDW Seg Neutrophils % Seg Neuts % (Manual) Lymphocytes % (Manual) Nucleated RBC % Seg Neutrophils # Seg Neutrophils # Man Lymphocytes # (Manual) POC ABG pH POC ABG pCO2 POC ABG pO2 VBG pH Sodium Potassium 6.6 H* 6.0 H Chloride 95.3 L 93.3 L Carbon Dioxide 4 L* 6 L* BUN 83 H 91 H Creatinine 6.9 H 7.3 H Glucose 1205 H* 1174 H* POC Glucose Lactic Acid Calcium 8.2 L Phosphorus 13.00 H Magnesium 2.60 H AST ALT Total Protein Albumin Salicylates Acetaminophen 11/06/18 11/06/18 15:21 16:33 WBC RBC Hgb MCV MCHC RDW Seg Neutrophils % Seg Neuts % (Manual) Lymphocytes % (Manual) Nucleated RBC % Seg Neutrophils # Seg Neutrophils # Man Lymphocytes # (Manual) POC ABG pH 7.004 L POC ABG pCO2 33.0 L POC ABG pO2 178 H VBG pH Sodium Potassium Chloride Carbon Dioxide BUN Creatinine Glucose POC Glucose Lactic Acid 7.60 H* Calcium Phosphorus Magnesium AST ALT Total Protein Albumin Salicylates Acetaminophen
[2018-11-06] MEDS ORDERED: KEPPRA 1,000 MG in D5W 100 ML IV SCH (17:00)
--- NOTE | 2018-11-06 17:19 | Consultation ---
Past History Past Medical History: ESRD (patient has AV fistula for hemodialysis since August of this year. It was felt he was not getting it to lately. Patient also has history of amputation of toes for PAD. No definite history of coronary artery disease), hypertension Past Surgical History: Other (Right Foot Surgery, AV Fistula) Social history: single, smoking. denies: alcohol abuse, prescription drug abuse Family history: diabetes, hypertension Medications and Allergies Allergies Allergy/AdvReac Type Severity Reaction Status Date / Time No Known Allergies Allergy Verified 03/17/18 11:54 Home Medications Medication Instructions Recorded Confirmed Last Taken Type Esomeprazole Magnesium [NexIUM] 20 mg PO QDAY #30 suspdr.pkt 03/17/18 Unknown Rx HYDROcodone/APAP 5-325 [[place] 1 each PO Q6HR PRN #15 tablet 03/17/18 Unknown Rx 5/325] Metoclopramide [Reglan] 10 mg PO TID #21 tab 03/17/18 Unknown Rx Ondansetron [Zofran Odt] 4 mg PO Q4HR PRN #20 tab.rapdis 03/17/18 Unknown Rx Active Meds: Active Medications Dextrose (D50w (25gm) Syringe) 0 ml IV PRN PRN PRN Reason: Hypoglycemia Fentanyl (Sublimaze) 50 mcg IV Q10MIN PRN PRN Reason: ANALGESIA Hydrophilic Ointment (Vaseline Lip Therapy) 1 applic TP Q2HR PRN PRN Reason: Dry Lips Fentanyl Citrate (Fentanyl Drip Premix) 2,000 mcg in 100 mls @ 4.309 mls/hr IV TITR MARIAJOSE; Protocol Epinephrine 8 mg/ Sodium (Chloride) 250 mls @ 3.75 mls/hr IV TITR ONE; Protocol Stop: 11/09/18 04:39 Last Titration: 11/06/18 14:50 Dose: 10 mcg/min, 18.75 mls/hr Documented by: Insulin Human Regular 100 (units/ Sodium Chloride) 100 mls @ 1 mls/hr IV TITR MARIAJOSE; Protocol Last Titration: 11/06/18 13:19 Dose: 8 units/hr, 8 mls/hr Documented by: Norepinephrine (Levophed Drip 4 Mg/Ns 250 Ml) 4 mg in 250 mls @ 7.5 mls/hr IV TITR MARIAJOSE; Protocol Last Admin: 11/06/18 14:50 Dose: 2 mcg/min, 7.5 mls/hr Documented by: Levetiracetam (Keppra 1,000 Mg/Ns 0.75% 100ml) 1,000 mg in 100 mls @ 400 mls/hr IV Q24HR MARIAJOSE Multi-Ingred Cream/Lotion/Oil/Oint (Artificial Tears Ophth Oint) 1 applic OU Q4HR PRN PRN Reason: Dry Eye(s) Sodium Chloride (Sodium Chloride Flush Syringe 10 Ml) 10 ml IV BID MARIAJOSE Sodium Chloride (Sodium Chloride Flush Syringe 10 Ml) 10 ml IV PRN PRN PRN Reason: LINE FLUSH Physical Examination - Vital Signs Vital Signs: Vital Signs BP Pulse Ox 95/26 98 11/06/18 08:02 11/06/18 08:02 Results - Laboratory Findings CBC and BMP: 11/06/18 09:02 11/06/18 15:21 Abnormal Lab Findings: Abnormal Labs 11/06/18 11/06/18 11/06/18 08:22 09:02 09:02 WBC 20.1 H RBC 3.40 L Hgb 10.5 L MCV 119 H MCHC 26 L RDW 15.7 H Seg Neutrophils % 80.1 H Seg Neuts % (Manual) 76.0 H Lymphocytes % (Manual) 4.0 L Nucleated RBC % 1.0 H Seg Neutrophils # 16.1 H Seg Neutrophils # Man 15.3 H Lymphocytes # (Manual) 0.8 L POC ABG pH POC ABG pCO2 POC ABG pO2 VBG pH Sodium 129 L Potassium 7.7 H* Chloride 79.7 L Carbon Dioxide 4 L* BUN 93 H Creatinine 7.4 H Glucose 1469 H* POC Glucose > 500 H Lactic Acid Calcium Phosphorus Magnesium AST 2679 H ALT 1175 H Total Protein 6.1 L Albumin 2.9 L Salicylates Acetaminophen 11/06/18 11/06/18 11/06/18 09:02 09:02 09:02 WBC RBC Hgb MCV MCHC RDW Seg Neutrophils % Seg Neuts % (Manual) Lymphocytes % (Manual) Nucleated RBC % Seg Neutrophils # Seg Neutrophils # Man Lymphocytes # (Manual) POC ABG pH POC ABG pCO2 POC ABG pO2 VBG pH Sodium Potassium Chloride Carbon Dioxide BUN Creatinine Glucose POC Glucose Lactic Acid 9.40 H* Calcium Phosphorus Magnesium AST ALT Total Protein Albumin Salicylates < 0.3 L Acetaminophen < 5.0 L 11/06/18 11/06/18 11/06/18 09:03 10:19 10:19 WBC RBC Hgb MCV MCHC RDW Seg Neutrophils % Seg Neuts % (Manual) Lymphocytes % (Manual) Nucleated RBC % Seg Neutrophils # Seg Neutrophils # Man Lymphocytes # (Manual) POC ABG pH 6.841 L POC ABG pCO2 POC ABG pO2 VBG pH Sodium 131 L Potassium 8.9 H* Chloride 85.3 L Carbon Dioxide 6 L* BUN 90 H Creatinine 7.1 H Glucose 1353 H* POC Glucose Lactic Acid Calcium 7.8 L Phosphorus 14.50 H Magnesium 2.70 H AST ALT Total Protein Albumin Salicylates Acetaminophen 11/06/18 11/06/18 11/06/18 12:07 13:22 13:22 WBC RBC Hgb MCV MCHC RDW Seg Neutrophils % Seg Neuts % (Manual) Lymphocytes % (Manual) Nucleated RBC % Seg Neutrophils # Seg Neutrophils # Man Lymphocytes # (Manual) POC ABG pH POC ABG pCO2 POC ABG pO2 VBG pH 6.982 L* Sodium 135 L Potassium 7.0 H* D Chloride 88.4 L Carbon Dioxide 5 L* BUN 89 H Creatinine 7.2 H Glucose 1326 H* POC Glucose Lactic Acid 8.50 H* Calcium Phosphorus Magnesium AST ALT Total Protein Albumin Salicylates Acetaminophen 11/06/18 11/06/18 11/06/18 14:15 14:15 15:21 WBC RBC Hgb MCV MCHC RDW Seg Neutrophils % Seg Neuts % (Manual) Lymphocytes % (Manual) Nucleated RBC % Seg Neutrophils # Seg Neutrophils # Man Lymphocytes # (Manual) POC ABG pH POC ABG pCO2 POC ABG pO2 VBG pH Sodium Potassium 6.6 H* 6.0 H Chloride 95.3 L 93.3 L Carbon Dioxide 4 L* 6 L* BUN 83 H 91 H Creatinine 6.9 H 7.3 H Glucose 1205 H* 1174 H* POC Glucose Lactic Acid Calcium 8.2 L Phosphorus 13.00 H Magnesium 2.60 H AST ALT Total Protein Albumin Salicylates Acetaminophen 11/06/18 11/06/18 15:21 16:33 WBC RBC Hgb MCV MCHC RDW Seg Neutrophils % Seg Neuts % (Manual) Lymphocytes % (Manual) Nucleated RBC % Seg Neutrophils # Seg Neutrophils # Man Lymphocytes # (Manual) POC ABG pH 7.004 L POC ABG pCO2 33.0 L POC ABG pO2 178 H VBG pH Sodium Potassium Chloride Carbon Dioxide BUN Creatinine Glucose POC Glucose Lactic Acid 7.60 H* Calcium Phosphorus Magnesium AST ALT Total Protein Albumin Salicylates Acetaminophen Assessment and Plan Mr. 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 Patient was brought to the emergency room by the family member right away and he developed a cardiac arrest while in the emergency room. Patient was resuscitated and workup showed STEMI. Patient was taken to cardiac Sales Project Manager and transferred to the intensive care unit. Patient has a history of seizure but he stopped taking seizure medication about 6 months ago. Family could not say whether this unresponsiveness was as a result of seizure or not. Physical examination. Patient is verbally unresponsive on ventilator. No spontaneous movement of the extremities. Sternal rub did not elicit any response. Pupils are sluggishly reactive to light. Corneal reflexes present and occasional intermittent eye closure was noted. Reflexes :No reflexes were present in the extremities and plantar response was absent. Impression. 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 Recommendation: Since patient has a history of seizure, he should be started on Keppra thousand milligrams IV daily Continue other supportive care for ketoacidosis and bed side dialysis as needed.
--- NOTE | 2018-11-06 17:44 | Consultation ---
History of Present Illness Consult date: 11/06/18 Requesting physician: ELDA RAMÍREZ Reason for consult: other (Acute Hypoxemic Respiratory Failure; STEMI) History of present illness: PULMONARY/CCM CONSULT NOTE (Full dictation # [id number]) Please see dictated notes for full details The high probability of a clinically significant, sudden or life-threatening deterioration of the [cardiac, neurologic, respiratory and renal] system(s) required my full and direct attention, intervention and personal management. The aggregate critical care time was [40] minutes without overlap. Time includes spent on; [x] Data Review and interpretation [x] Patient assessment and monitoring of vital signs [x] Documentation [x] Medication orders and management Past History Past Medical History: ESRD (patient has AV fistula for hemodialysis since August of this year. It was felt he was not getting it to lately. Patient also has history of amputation of toes for PAD. No definite history of coronary artery disease), hypertension Past Surgical History: Other (Right Foot Surgery, AV Fistula) Social history: single, smoking. denies: alcohol abuse, prescription drug abuse Family history: diabetes, hypertension Medications and Allergies Allergies Allergy/AdvReac Type Severity Reaction Status Date / Time No Known Allergies Allergy Verified 03/17/18 11:54 Home Medications Medication Instructions Recorded Confirmed Last Taken Type Esomeprazole Magnesium [NexIUM] 20 mg PO QDAY #30 suspdr.pkt 03/17/18 Unknown Rx HYDROcodone/APAP 5-325 [[place] 1 each PO Q6HR PRN #15 tablet 03/17/18 Unknown Rx 5/325] Metoclopramide [Reglan] 10 mg PO TID #21 tab 03/17/18 Unknown Rx Ondansetron [Zofran Odt] 4 mg PO Q4HR PRN #20 tab.rapdis 03/17/18 Unknown Rx Active Meds: Active Medications Dextrose (D50w (25gm) Syringe) 0 ml IV PRN PRN PRN Reason: Hypoglycemia Fentanyl (Sublimaze) 50 mcg IV Q10MIN PRN PRN Reason: ANALGESIA Hydrophilic Ointment (Vaseline Lip Therapy) 1 applic TP Q2HR PRN PRN Reason: Dry Lips Fentanyl Citrate (Fentanyl Drip Premix) 2,000 mcg in 100 mls @ 4.309 mls/hr IV TITR MARIAJOSE; Protocol Epinephrine 8 mg/ Sodium (Chloride) 250 mls @ 3.75 mls/hr IV TITR ONE; Protocol Stop: 11/09/18 04:39 Last Titration: 11/06/18 14:50 Dose: 10 mcg/min, 18.75 mls/hr Documented by: Insulin Human Regular 100 (units/ Sodium Chloride) 100 mls @ 1 mls/hr IV TITR MARIAJOSE; Protocol Last Titration: 11/06/18 15:00 Dose: 8 units/hr, 8 mls/hr Documented by: Norepinephrine (Levophed Drip 4 Mg/Ns 250 Ml) 4 mg in 250 mls @ 7.5 mls/hr IV TITR MARIAJOSE; Protocol Last Titration: 11/06/18 15:50 Dose: 10 mcg/min, 37.5 mls/hr Documented by: Levetiracetam (Keppra 1,000 Mg/Ns 0.75% 100ml) 1,000 mg in 100 mls @ 400 mls/hr IV Q24HR MARIAJOSE Sodium Bicarbonate 150 meq/ (Dextrose) 1,150 mls @ 150 mls/hr IV DIRECT MARIAJOSE Stop: 11/09/18 01:39 Multi-Ingred Cream/Lotion/Oil/Oint (Artificial Tears Ophth Oint) 1 applic OU Q4HR PRN PRN Reason: Dry Eye(s) Sodium Chloride (Sodium Chloride Flush Syringe 10 Ml) 10 ml IV BID MARIAJOSE Sodium Chloride (Sodium Chloride Flush Syringe 10 Ml) 10 ml IV PRN PRN PRN Reason: LINE FLUSH Physical Examination Vital signs: Vital Signs BP Pulse Ox 95/26 98 11/06/18 08:02 11/06/18 08:02 Results - Laboratory Findings CBC and BMP: 11/06/18 09:02 11/06/18 17:34 ABG POC ABG pH 7.004 (7.35-7.45) L 11/06/18 16:33 POC ABG pCO2 33.0 (35-45) L 11/06/18 16:33 POC ABG pO2 178 (80-105) H 11/06/18 16:33 POC ABG HCO3 8.2 (22-26 mml/L) 11/06/18 16:33 POC ABG Total CO2 9 (23-27mmol/L) 11/06/18 16:33 POC ABG O2 Sat 99 11/06/18 16:33 Abnormal lab findings: Abnormal Labs 11/06/18 11/06/18 11/06/18 08:22 09:02 09:02 WBC 20.1 H RBC 3.40 L Hgb 10.5 L MCV 119 H MCHC 26 L RDW 15.7 H Seg Neutrophils % 80.1 H Seg Neuts % (Manual) 76.0 H Lymphocytes % (Manual) 4.0 L Nucleated RBC % 1.0 H Seg Neutrophils # 16.1 H Seg Neutrophils # Man 15.3 H Lymphocytes # (Manual) 0.8 L POC ABG pH POC ABG pCO2 POC ABG pO2 VBG pH Sodium 129 L Potassium 7.7 H* Chloride 79.7 L Carbon Dioxide 4 L* BUN 93 H Creatinine 7.4 H Glucose 1469 H* POC Glucose > 500 H Lactic Acid Calcium Phosphorus Magnesium AST 2679 H ALT 1175 H Total Protein 6.1 L Albumin 2.9 L Salicylates Acetaminophen 11/06/18 11/06/18 11/06/18 09:02 09:02 09:02 WBC RBC Hgb MCV MCHC RDW Seg Neutrophils % Seg Neuts % (Manual) Lymphocytes % (Manual) Nucleated RBC % Seg Neutrophils # Seg Neutrophils # Man Lymphocytes # (Manual) POC ABG pH POC ABG pCO2 POC ABG pO2 VBG pH Sodium Potassium Chloride Carbon Dioxide BUN Creatinine Glucose POC Glucose Lactic Acid 9.40 H* Calcium Phosphorus Magnesium AST ALT Total Protein Albumin Salicylates < 0.3 L Acetaminophen < 5.0 L 11/06/18 11/06/18 11/06/18 09:03 10:19 10:19 WBC RBC Hgb MCV MCHC RDW Seg Neutrophils % Seg Neuts % (Manual) Lymphocytes % (Manual) Nucleated RBC % Seg Neutrophils # Seg Neutrophils # Man Lymphocytes # (Manual) POC ABG pH 6.841 L POC ABG pCO2 POC ABG pO2 VBG pH Sodium 131 L Potassium 8.9 H* Chloride 85.3 L Carbon Dioxide 6 L* BUN 90 H Creatinine 7.1 H Glucose 1353 H* POC Glucose Lactic Acid Calcium 7.8 L Phosphorus 14.50 H Magnesium 2.70 H AST ALT Total Protein Albumin Salicylates Acetaminophen 11/06/18 11/06/18 11/06/18 12:07 13:22 13:22 WBC RBC Hgb MCV MCHC RDW Seg Neutrophils % Seg Neuts % (Manual) Lymphocytes % (Manual) Nucleated RBC % Seg Neutrophils # Seg Neutrophils # Man Lymphocytes # (Manual) POC ABG pH POC ABG pCO2 POC ABG pO2 VBG pH 6.982 L* Sodium 135 L Potassium 7.0 H* D Chloride 88.4 L Carbon Dioxide 5 L* BUN 89 H Creatinine 7.2 H Glucose 1326 H* POC Glucose Lactic Acid 8.50 H* Calcium Phosphorus Magnesium AST ALT Total Protein Albumin Salicylates Acetaminophen 11/06/18 11/06/18 11/06/18 14:15 14:15 15:21 WBC RBC Hgb MCV MCHC RDW Seg Neutrophils % Seg Neuts % (Manual) Lymphocytes % (Manual) Nucleated RBC % Seg Neutrophils # Seg Neutrophils # Man Lymphocytes # (Manual) POC ABG pH POC ABG pCO2 POC ABG pO2 VBG pH Sodium Potassium 6.6 H* 6.0 H Chloride 95.3 L 93.3 L Carbon Dioxide 4 L* 6 L* BUN 83 H 91 H Creatinine 6.9 H 7.3 H Glucose 1205 H* 1174 H* POC Glucose Lactic Acid Calcium 8.2 L Phosphorus 13.00 H Magnesium 2.60 H AST ALT Total Protein Albumin Salicylates Acetaminophen 11/06/18 11/06/18 15:21 16:33 WBC RBC Hgb MCV MCHC RDW Seg Neutrophils % Seg Neuts % (Manual) Lymphocytes % (Manual) Nucleated RBC % Seg Neutrophils # Seg Neutrophils # Man Lymphocytes # (Manual) POC ABG pH 7.004 L POC ABG pCO2 33.0 L POC ABG pO2 178 H VBG pH Sodium Potassium Chloride Carbon Dioxide BUN Creatinine Glucose POC Glucose Lactic Acid 7.60 H* Calcium Phosphorus Magnesium AST ALT Total Protein Albumin Salicylates Acetaminophen
[2018-11-06] MEDS: KEPPRA 1,000 MG/NS 0.75% 100ML 1,000 MG/100 ML BAG IV SCH (17:59)
[2018-11-06] MEDS ORDERED: SODIUM BICARBONATE 150 MEQ in D5W 1,000 ML IV SCH (18:00)
[2018-11-06 18:25] LABS: Calcium 7.7 mg/dL (8.4-10.2)
[2018-11-06] MEDS: fentaNYL DRIP Premix 2,000 MCG/100 ML BAG IV SCH (19:05)
[2018-11-06] MEDS ORDERED: VANCOMYCIN/NS 1 GM/250 ML 1 GM/250 ML BAG IV SCH (20:00)
[2018-11-06 20:29] LABS: Calcium 7.4 mg/dL (8.4-10.2)
--- NOTE | 2018-11-06 20:36 | XRay Report ---
PROCEDURE: XR CHEST 1V AP TECHNIQUE: Chest radiograph single view. HISTORY: ETT position COMPARISONS: None . FINDINGS: Heart: Normal. Mediastinum/Vessels: Normal. Lungs/Pleural space: Lungs are expanded. There are no infiltrates, effusions or pneumothoraces.. Bony thorax: No acute osseous abnormality. Life support devices: Endotracheal tube is in the midtrachea. NG tube is in stomach. There is a left- sided central venous catheter. The tip is in superior vena cava.. IMPRESSION: Heart size is normal. Lungs are expanded. There are no infiltrates, effusions or pneumothoraces.. Endotracheal tube is in the midtrachea. NG tube is in stomach. There is a left-sided central venous c atheter. The tip is in superior vena cava.. This document is electronically signed by Jonathan Fuchs MD., Nov 06 2018 09:33:47 PM ET
[2018-11-06] MEDS: STERILE WATER IV SCH (20:38)
[2018-11-06] MEDS: SODIUM BICARBONATE IV SCH (20:38)
[2018-11-06] MEDS: SODIUM CHLORIDE FLUSH SYRINGE 10 ML IV SCH (22:27)
[2018-11-06] MEDS: PROTONIX IV SCH (22:27)
[2018-11-06] MEDS: ZOSYN/NS 2.25 GM/50ML 2.25 GM/50 ML BAG IV SCH (22:27)
[2018-11-06] MEDS: TYLENOL FEEDTUBE PRN (22:33)
[2018-11-06 22:57] LABS: Calcium 7.5 mg/dL (8.4-10.2)
--- NOTE | 2018-11-07 05:04 | XRay Report ---
PROCEDURE: XR CHEST 1V AP TECHNIQUE: Chest radiograph single view. HISTORY: follow up respiratory failure COMPARISONS: November 06 . FINDINGS: ET tube in satisfactory position, unchanged. There is an NG tube in the stomach with the distal end not seen on this radiograph. Cardiac silhouette is not enlarged. No new areas of airspace consolidation or pleural effusions. The pulmonary vasculature is within normal limits. IMPRESSION: ET tube and NG tube in place. Stable radiograph with no evidence of acute disease. This document is electronically signed by Jack Conn MD., November 07 2018 06:02:29 AM ET
[2018-11-07] MEDS: SODIUM BICARBONATE IV SCH ×2 (05:51→14:15)
[2018-11-07] MEDS: STERILE WATER IV SCH ×2 (05:51→14:15)
[2018-11-07 06:51] LABS: Calcium 7.6 mg/dL (8.4-10.2)
[2018-11-07] MEDS: ZOSYN/NS 2.25 GM/50ML 2.25 GM/50 ML BAG IV SCH ×3 (07:15→21:49)
[2018-11-07 07:26] LABS: Calcium 7.6 mg/dL (8.4-10.2)
[2018-11-07] MEDS: D5W/0.45% NACL/KCL 20 MEQ 20 MEQ/1,000 ML BAG IV SCH ×2 (08:35→17:33)
[2018-11-07] MEDS: PROTONIX IV SCH ×2 (09:12→19:55)
[2018-11-07] MEDS: KEPPRA 1,000 MG/NS 0.75% 100ML 1,000 MG/100 ML BAG IV SCH (09:12)
[2018-11-07] MEDS: SODIUM CHLORIDE FLUSH SYRINGE 10 ML IV SCH ×2 (09:16→21:49)
--- NOTE | 2018-11-07 10:08 | Consultation ---
History of Present Illness - Reason for Consult Consult date: 11/07/18 end stage renal disease Past History Past Medical History: ESRD (patient has AV fistula for hemodialysis since August of this year. It was felt he was not getting it to lately. Patient also has history of amputation of toes for PAD. No definite history of coronary artery disease), hypertension Past Surgical History: Other (Right Foot Surgery, AV Fistula) Social history: single, smoking. denies: alcohol abuse, prescription drug abuse Family history: diabetes, hypertension Medications and Allergies Allergies Allergy/AdvReac Type Severity Reaction Status Date / Time No Known Allergies Allergy Verified 03/17/18 11:54 Home Medications Medication Instructions Recorded Confirmed Last Taken Type Esomeprazole Magnesium [NexIUM] 20 mg PO QDAY #30 suspdr.pkt 03/17/18 Unknown Rx HYDROcodone/APAP 5-325 [[place] 1 each PO Q6HR PRN #15 tablet 03/17/18 Unknown Rx 5/325] Metoclopramide [Reglan] 10 mg PO TID #21 tab 03/17/18 Unknown Rx Ondansetron [Zofran Odt] 4 mg PO Q4HR PRN #20 tab.rapdis 03/17/18 Unknown Rx Active Meds: Active Medications Acetaminophen (Tylenol) 650 mg FEEDTUBE Q6H PRN PRN Reason: Fever >101 Last Admin: 11/06/18 22:33 Dose: 650 mg Documented by: Chlorpromazine HCl (Thorazine) 10 mg PO Q6H PRN PRN Reason: Hiccups Dextrose (D50w (25gm) Syringe) 0 ml IV PRN PRN PRN Reason: Hypoglycemia Fentanyl (Sublimaze) 50 mcg IV Q10MIN PRN PRN Reason: ANALGESIA Hydrophilic Ointment (Vaseline Lip Therapy) 1 applic TP Q2HR PRN PRN Reason: Dry Lips Fentanyl Citrate (Fentanyl Drip Premix) 2,000 mcg in 100 mls @ 4.309 mls/hr IV TITR MARIAJOSE; Protocol Last Titration: 11/07/18 08:38 Dose: 1 mcg/kg/hr, 4.309 mls/hr Documented by: Epinephrine 8 mg/ Sodium (Chloride) 250 mls @ 3.75 mls/hr IV TITR ONE; Protocol Stop: 11/09/18 04:39 Last Titration: 11/06/18 23:49 Dose: 0 mcg/min, 0 mls/hr Documented by: Insulin Human Regular 100 (units/ Sodium Chloride) 100 mls @ 1 mls/hr IV TITR MARIAJOSE; Protocol Last Titration: 11/07/18 09:47 Dose: 5 units/hr, 5 mls/hr Documented by: Norepinephrine (Levophed Drip 4 Mg/Ns 250 Ml) 4 mg in 250 mls @ 7.5 mls/hr IV TITR MARIAJOSE; Protocol Last Titration: 11/07/18 05:50 Dose: 0 mcg/min, 0 mls/hr Documented by: Levetiracetam (Keppra 1,000 Mg/Ns 0.75% 100ml) 1,000 mg in 100 mls @ 400 mls/hr IV Q24HR MARIAJOSE Last Admin: 11/07/18 09:12 Dose: 400 mls/hr Documented by: Sodium Bicarbonate 150 meq/ (Sterile Water) 1,150 mls @ 150 mls/hr IV DIRECT MARIAJOSE Stop: 11/09/18 03:39 Last Admin: 11/07/18 05:51 Dose: 150 mls/hr Documented by: Piperacillin Sod/Tazobactam Sod (Zosyn/Ns 2.25 Gm/50ml) 2.25 gm in 50 mls @ 100 mls/hr IV Q8HR MARIAJOSE; Protocol Last Admin: 11/07/18 07:15 Dose: 100 mls/hr Documented by: Potassium Chloride/Dextrose/Sod Cl (D5w/0.45% Nacl/Kcl 20 Meq) 20 meq in 1,000 mls @ 125 mls/hr IV DIRECT MARIAJOSE Last Admin: 11/07/18 08:35 Dose: 125 mls/hr Documented by: Multi-Ingred Cream/Lotion/Oil/Oint (Artificial Tears Ophth Oint) 1 applic OU Q4HR PRN PRN Reason: Dry Eye(s) Pantoprazole Sodium (Protonix) 40 mg IV Q12H MARIAJOSE Last Admin: 11/07/18 09:12 Dose: 40 mg Documented by: Sodium Chloride (Sodium Chloride Flush Syringe 10 Ml) 10 ml IV BID MARIAJOSE Last Admin: 11/07/18 09:16 Dose: 10 ml Documented by: Sodium Chloride (Sodium Chloride Flush Syringe 10 Ml) 10 ml IV PRN PRN PRN Reason: LINE FLUSH Exam - Vital Signs Vital signs: Vital Signs BP Pulse Ox 95/26 98 11/06/18 08:02 11/06/18 08:02 Results - Lab Results 11/06/18 09:02 11/07/18 06:35 Most recent lab results Calcium 7.6 mg/dL (8.4-10.2) L 11/07/18 06:35 Phosphorus 13.00 mg/dL (2.5-4.5) H 11/06/18 14:15 Magnesium 2.60 mg/dL (1.7-2.3) H 11/06/18 14:15
--- NOTE | 2018-11-07 10:16 | Progress Note ---
Assessment and Plan Acute Kidney Injury secondary to ischemic ATN from hypotension, cardiac arrest, in setting of underlying hx CKD 4: S/P High Anion Gap Metabolic Acidosis with elevated lactic acidosis with DKA: S/P Hyperkalemia: Hyperphosphatemia: - Renal function reviewed, SCr level is 8.6 today and yesterday's was 7.3, UOP 325 ml in the last 24 hours - Patient's renal function has not improved and he has minimal urine output, will proceed hemodialysis initiation - Patient has a left AVF that was placed by Dr. Mcnulty on 08/17/18, will cannulate access for dialysis use - Spoke with patient's mother today over the phone who is agreeable for hemodialysis to be initiated today - We will hemodialyze patient today for gentle UF and clearance using his Left AVF - Patient is now off pressor support - Will D/C sodium bicarbonate drip as Acidosis is better - On D5W/0.45%NS/20 meq KCL@ 125 ml/hr for now - Renally dose medications - Salgado Catheter: Yes - Obtain daily weights - Monitor I/O's - Assess dialysis needs daily - Renal plan reviewed Dr. Marti S/p Cardiopulmonary arrest. STEMI: -S/P CPR and ACLS protocol -Now off pressor support -Cardiology on board Diabetic Ketoacidosis. - On insulin drip - On IV fluids - As per primary team Acute Encephalopathy History of Seizure: -Neurology evaluated pt, Hypoxic brain injury with evidence of brainstem brainstem function being present per neurology -On IV Keppra -As per Neurology Subjective Date of service: 11/07/18 Principal diagnosis: CKD, DKA Interval history: Patient seen lying in bed, intubated and unresponsive. No family at bedside. Objective - Vital Signs Vital signs: Vital Signs - 12hr 11/06/18 11/06/18 11/06/18 22:15 22:31 22:45 Temperature Pulse Rate 120 H 118 H 117 H Pulse Rate [ From Monitor] Respiratory 31 H 29 H 29 H Rate Blood Pressure 173/63 154/62 154/62 O2 Sat by Pulse 99 99 Oximetry 11/06/18 11/06/18 11/06/18 23:01 23:15 23:27 Temperature Pulse Rate 116 H 117 H Pulse Rate [ From Monitor] Respiratory 30 H 30 H Rate Blood Pressure 132/56 132/56 142/56 O2 Sat by Pulse 98 100 100 Oximetry 11/06/18 11/06/18 11/07/18 23:31 23:45 00:00 Temperature Pulse Rate 113 H 113 H Pulse Rate [ 109 H From Monitor] Respiratory 30 H 30 H 30 H Rate Blood Pressure 135/54 135/54 O2 Sat by Pulse 99 100 100 Oximetry 11/07/18 11/07/18 11/07/18 00:01 00:09 00:15 Temperature 102.3 F H Pulse Rate 109 H 107 H Pulse Rate [ From Monitor] Respiratory 28 H 29 H Rate Blood Pressure 133/58 133/58 O2 Sat by Pulse 100 Oximetry 11/07/18 11/07/18 11/07/18 00:30 00:45 01:01 Temperature Pulse Rate 108 H 106 H 104 H Pulse Rate [ From Monitor] Respiratory 30 H 30 H 27 H Rate Blood Pressure 125/58 133/58 134/58 O2 Sat by Pulse 99 100 100 Oximetry 11/07/18 11/07/18 11/07/18 01:15 01:30 01:45 Temperature Pulse Rate 104 H 103 H 102 H Pulse Rate [ From Monitor] Respiratory 28 H 28 H 28 H Rate Blood Pressure 125/58 134/58 120/58 O2 Sat by Pulse Oximetry 11/07/18 11/07/18 11/07/18 02:00 02:15 02:31 Temperature Pulse Rate 102 H 102 H 101 H Pulse Rate [ From Monitor] Respiratory 30 H 31 H 30 H Rate Blood Pressure 117/63 114/54 106/55 O2 Sat by Pulse 100 100 100 Oximetry 11/07/18 11/07/18 11/07/18 02:45 03:00 03:15 Temperature Pulse Rate 102 H 100 H 100 H Pulse Rate [ From Monitor] Respiratory 30 H 28 H 31 H Rate Blood Pressure 105/55 113/59 113/59 O2 Sat by Pulse 100 100 Oximetry 11/07/18 11/07/18 11/07/18 03:24 03:30 03:45 Temperature 100.7 F H Pulse Rate 100 H 99 H Pulse Rate [ From Monitor] Respiratory 30 H 30 H Rate Blood Pressure 107/61 107/61 O2 Sat by Pulse 100 Oximetry 11/07/18 11/07/18 11/07/18 04:00 04:15 04:23 Temperature 101.2 F H Pulse Rate 99 H 99 H Pulse Rate [ From Monitor] Respiratory 30 H 30 H Rate Blood Pressure 112/63 122/66 O2 Sat by Pulse 100 100 Oximetry 11/07/18 11/07/18 11/07/18 04:31 04:45 05:01 Temperature Pulse Rate 100 H 101 H 99 H Pulse Rate [ From Monitor] Respiratory 28 H 25 H 28 H Rate Blood Pressure 126/66 126/66 113/52 O2 Sat by Pulse 100 100 Oximetry 11/07/18 11/07/18 11/07/18 05:15 05:30 05:45 Temperature Pulse Rate 99 H 98 H 100 H Pulse Rate [ From Monitor] Respiratory 28 H 31 H 25 H Rate Blood Pressure 113/52 111/57 111/57 O2 Sat by Pulse 100 Oximetry 11/07/18 11/07/18 11/07/18 06:00 06:01 06:15 Temperature Pulse Rate 101 H 105 H Pulse Rate [ 101 H From Monitor] Respiratory 30 H 27 H 30 H Rate Blood Pressure 104/62 104/62 O2 Sat by Pulse 100 100 100 Oximetry 11/07/18 11/07/18 11/07/18 06:31 06:45 07:01 Temperature Pulse Rate 99 H 101 H 102 H Pulse Rate [ From Monitor] Respiratory 30 H 28 H 31 H Rate Blood Pressure 118/63 125/69 137/91 O2 Sat by Pulse 100 100 100 Oximetry 11/07/18 11/07/18 11/07/18 07:15 07:31 07:45 Temperature Pulse Rate 102 H 103 H 107 H Pulse Rate [ From Monitor] Respiratory 25 H 27 H 16 Rate Blood Pressure 137/91 145/83 145/83 O2 Sat by Pulse 100 100 Oximetry 11/07/18 11/07/18 11/07/18 08:00 08:15 08:31 Temperature 99.6 F Pulse Rate 110 H 111 H 109 H Pulse Rate [ From Monitor] Respiratory 30 H 30 H 17 Rate Blood Pressure 166/88 166/88 170/91 O2 Sat by Pulse 100 100 100 Oximetry 11/07/18 11/07/18 11/07/18 08:45 09:01 09:15 Temperature Pulse Rate 106 H 104 H 104 H Pulse Rate [ From Monitor] Respiratory 26 H 30 H 19 Rate Blood Pressure 170/91 136/64 128/71 O2 Sat by Pulse 100 99 100 Oximetry 06/01/19 06/01/19 09:31 09:45 Temperature Pulse Rate 105 H 104 H Pulse Rate [ From Monitor] Respiratory 14 17 Rate Blood Pressure 132/69 132/69 O2 Sat by Pulse 96 Oximetry - General Appearance General appearance: sedated on ventilator, intubated, fatigue EENT: ATNC Neck: no JVD, supple Respiratory: Present: Decreased Breath Sounds, Other (Intubated) Cardiology: S1S2 Gastrointestinal: normoactive bowel sounds Integumentary: warm and dry Neurologic: other (Unresponsive and intubated) Musculoskeletal: other (No edema) - Lab 11/07/18 10:50 11/07/18 06:35 Most recent lab results Calcium 7.6 mg/dL (8.4-10.2) L 11/07/18 06:35 Phosphorus 13.00 mg/dL (2.5-4.5) H 11/06/18 14:15 Magnesium 2.60 mg/dL (1.7-2.3) H 11/06/18 14:15 Medications & Allergies - Medications Allergies/Adverse Reactions: Allergies No Known Allergies Allergy (Verified 03/17/18 11:54) Home Medications: Home Medications Medication Instructions Recorded Confirmed Last Taken Type Esomeprazole Magnesium [NexIUM] 20 mg PO QDAY #30 suspdr.pkt 03/17/18 11/07/18 Unknown Rx HYDROcodone/APAP 5-325 [[place] 1 each PO Q6HR PRN #15 tablet 03/17/18 11/07/18 Unknown Rx 5/325] Metoclopramide [Reglan] 10 mg PO TID #21 tab 03/17/18 11/07/18 Unknown Rx Ondansetron [Zofran Odt] 4 mg PO Q4HR PRN #20 tab.rapdis 03/17/18 11/07/18 Unknown Rx Active Medications: Generic Name Dose Route Start Last Admin Trade Name Freq PRN Reason Stop Dose Admin Acetaminophen 650 mg 11/06/18 22:22 11/06/18 22:33 Tylenol FEEDTUBE 650 mg Q6H PRN Administration Fever >101 Chlorpromazine HCl 10 mg 11/07/18 08:07 Thorazine PO Q6H PRN Hiccups Dextrose 0 ml 11/06/18 13:45 D50w (25gm) Syringe IV PRN PRN Hypoglycemia Fentanyl 50 mcg 11/06/18 08:37 Sublimaze IV Q10MIN PRN ANALGESIA Hydrophilic Ointment 1 applic 11/06/18 08:26 Vaseline Lip Therapy TP Q2HR PRN Dry Lips Fentanyl Citrate 2,000 mcg in 100 mls @ 4.309 mls/hr 11/06/18 10:00 11/07/18 08:38 Fentanyl Drip Premix IV 1 mcg/kg/hr TITR MARIAJOSE 4.309 mls/hr Titration Protocol 1 MCG/KG/HR Epinephrine 8 mg/ Sodium 250 mls @ 3.75 mls/hr 11/06/18 10:00 11/06/18 23:49 Chloride IV 11/09/18 04:39 0 mcg/min TITR ONE 0 mls/hr Titration Protocol 2 MCG/MIN Insulin Human Regular 100 100 mls @ 1 mls/hr 11/06/18 11:00 11/07/18 09:47 units/ Sodium Chloride IV 5 units/hr TITR MRAIAJOSE 5 mls/hr Titration Protocol 1 UNITS/HR Norepinephrine 4 mg in 250 mls @ 7.5 mls/hr 11/06/18 16:00 11/07/18 05:50 Levophed Drip 4 Mg/Ns 250 Ml IV 0 mcg/min TITR MARIAJOSE 0 mls/hr Titration Protocol 2 MCG/MIN Levetiracetam 1,000 mg in 100 mls @ 400 mls/hr 11/06/18 18:00 11/07/18 09:12 Keppra 1,000 Mg/Ns 0.75% 100ml IV 400 mls/hr Q24HR MARIAJOSE Administration Sodium Bicarbonate 150 meq/ 1,150 mls @ 150 mls/hr 11/06/18 20:00 11/07/18 05:51 Sterile Water IV 11/09/18 03:39 150 mls/hr DIRECT MARIAJOSE Administration Piperacillin Sod/Tazobactam Sod 2.25 gm in 50 mls @ 100 mls/hr 11/06/18 22:00 11/07/18 07:15 Zosyn/Ns 2.25 Gm/50ml IV 100 mls/hr Q8HR MARIAJOSE Administration Protocol Potassium Chloride/Dextrose/Sod Cl 20 meq in 1,000 mls @ 125 mls/hr 11/07/18 09:00 11/07/18 08:35 D5w/0.45% Nacl/Kcl 20 Meq IV 125 mls/hr DIRECT MARIAJOSE Administration Multi-Ingred Cream/Lotion/Oil/Oint 1 applic 11/06/18 08:26 Artificial Tears Ophth Oint OU Q4HR PRN Dry Eye(s) Pantoprazole Sodium 40 mg 11/06/18 20:00 11/07/18 09:12 Protonix IV 40 mg Q12H MARIAJOSE Administration Sodium Chloride 10 ml 11/06/18 22:00 11/07/18 09:16 Sodium Chloride Flush Syringe 10 Ml IV 10 ml BID MARIAJOSE Administration Sodium Chloride 10 ml 11/06/18 12:42 Sodium Chloride Flush Syringe 10 Ml IV PRN PRN LINE FLUSH
[2018-11-07 11:05] LABS: Basophils % (Auto) 0.1 % (0.0-1.8); Eosinophils % (Auto) 0.1 % (0.0-4.3); Hematocrit 25.3 % (35.5-45.6); Hemoglobin 8.7 gm/dl (11.8-15.2); Lymphocytes # (Auto) 1.1 K/mm3 (1.2-5.4); Lymphocytes % (Auto) 9.7 % (13.4-35.0); Mean Corpuscular HGB Conc 34 % (32-34); Mean Corpuscular Volume 89 fl (84-94); Monocytes # (Auto) 0.8 K/mm3 (0.0-0.8); Monocytes % (Auto) 6.8 % (0.0-7.3); Platelet Count 150 K/mm3 (140-440); Red Blood Count 2.85 M/mm3 (3.65-5.03); Red Cell Distribution Width 14.1 % (13.2-15.2)
[2018-11-07 11:27] LABS: Calcium 7.3 mg/dL (8.4-10.2)
--- NOTE | 2018-11-07 12:04 | Progress Note ---
Assessment and Plan 42yo AAM: 1. s/p cardiopulmonary arrest * likely multi-factorial * acute and severe electrolyte disturbance * volume overload * unlikely primary cardiac event * hypotension/sinus tachycardia * on pressors 2. DKA/severe metabolic acidemia 3. Prob anoxic brain injury * neurology following 4. Anemia 5. esrd on hd 6. pad 7. tobacco abuse 8. shock liver optimize bg/lytes - per primary and icu team tte pending wean pressors poor prognosis Consider adding heparin for dvt prophylaxis will follow - Patient Problems (1) ARF (acute renal failure) with tubular necrosis Current Visit: Yes Status: Acute (2) Anoxic brain injury Current Visit: Yes Status: Acute (3) Cardiac arrest Current Visit: Yes Status: Acute (4) DKA (diabetic ketoacidoses) Current Visit: Yes Status: Acute Qualifiers: Diabetes mellitus type: type 2 Diabetes mellitus complication detail: with coma Qualified Code(s): E11.11 - Type 2 diabetes mellitus with ketoacidosis w ith coma (5) ESRD (end stage renal disease) on dialysis Current Visit: Yes Status: Acute (6) Hypotension Current Visit: Yes Status: Acute Qualifiers: Hypotension type: unspecified hypotension type Qualified Code(s): I95.9 - Hypotension, unspecified (7) Metabolic acidosis Current Visit: Yes Status: Acute (8) Unresponsive Current Visit: Yes Status: Acute Subjective Date of service: 11/07/18 Principal diagnosis: CKD, DKA Interval history: intubated, nonresponsive Objective Vital Signs Temp Pulse Pulse Pulse Resp BP Pulse Ox 11/07/18 11:15 107 H 30 H 140/71 98 11/07/18 11:01 133 H 19 128/71 99 11/07/18 11:00 105 H 140/71 100 11/07/18 10:45 111 H 17 128/71 100 11/07/18 10:31 108 H 17 128/71 100 11/07/18 10:15 104 H 18 128/71 100 11/07/18 10:01 105 H 18 128/71 97 11/07/18 10:00 113 H 11/07/18 09:45 104 H 17 132/69 11/07/18 09:31 105 H 14 132/69 96 11/07/18 09:15 104 H 19 128/71 100 11/07/18 09:01 104 H 30 H 136/64 99 11/07/18 08:45 106 H 26 H 170/91 100 11/07/18 08:31 109 H 17 170/91 100 11/07/18 08:15 111 H 30 H 166/88 100 11/07/18 08:00 99.6 F 110 H 30 H 166/88 100 11/07/18 07:45 107 H 16 145/83 100 11/07/18 07:31 103 H 27 H 145/83 100 11/07/18 07:15 102 H 25 H 137/91 11/07/18 07:01 102 H 31 H 137/91 100 11/07/18 06:45 101 H 28 H 125/69 100 11/07/18 06:31 99 H 30 H 118/63 100 11/07/18 06:15 105 H 30 H 104/62 100 11/07/18 06:01 101 H 27 H 104/62 100 11/07/18 06:00 101 H 30 H 100 11/07/18 05:45 100 H 25 H 111/57 11/07/18 05:30 98 H 31 H 111/57 100 11/07/18 05:15 99 H 28 H 113/52 11/07/18 05:01 99 H 28 H 113/52 100 11/07/18 04:45 101 H 25 H 126/66 11/07/18 04:31 100 H 28 H 126/66 100 11/07/18 04:23 101.2 F H 11/07/18 04:15 99 H 30 H 122/66 100 11/07/18 04:00 99 H 30 H 112/63 100 11/07/18 03:45 99 H 30 H 107/61 11/07/18 03:30 100 H 30 H 107/61 100 11/07/18 03:24 100.7 F H 11/07/18 03:15 100 H 31 H 113/59 11/07/18 03:00 100 H 28 H 113/59 100 11/07/18 02:45 102 H 30 H 105/55 100 11/07/18 02:31 101 H 30 H 106/55 100 11/07/18 02:15 102 H 31 H 114/54 100 11/07/18 02:00 102 H 30 H 117/63 100 11/07/18 01:45 102 H 28 H 120/58 11/07/18 01:30 103 H 28 H 134/58 11/07/18 01:15 104 H 28 H 125/58 11/07/18 01:01 104 H 27 H 134/58 100 11/07/18 00:45 106 H 30 H 133/58 100 11/07/18 00:30 108 H 30 H 125/58 99 11/07/18 00:15 107 H 29 H 133/58 11/07/18 00:09 102.3 F H 11/07/18 00:01 109 H 28 H 133/58 100 11/07/18 00:00 109 H 30 H 100 11/06/18 23:45 113 H 30 H 135/54 11/06/18 23:31 113 H 30 H 135/54 11/06/18 23:27 142/56 11/06/18 23:15 117 H 30 H 132/56 11/06/18 23:01 116 H 30 H 132/56 98 11/06/18 22:45 117 H 29 H 154/62 11/06/18 22:31 118 H 29 H 154/62 11/06/18 22:15 120 H 31 H 173/63 11/06/18 22:01 129 H 37 H 173/63 11/06/18 22:00 129 H 11/06/18 21:45 126 H 31 H 160/55 11/06/18 21:33 102.6 F H 11/06/18 21:31 127 H 32 H 156/60 11/06/18 21:15 127 H 31 H 150/63 11/06/18 21:01 128 H 34 H 160/55 11/06/18 20:45 130 H 32 H 134/56 11/06/18 20:31 131 H 31 H 134/56 11/06/18 20:15 129 H 32 H 160/56 11/06/18 20:01 129 H 35 H 155/59 11/06/18 20:00 129 H 30 H 100 11/06/18 19:51 131 H 29 H 155/59 11/06/18 19:49 155/59 100 11/06/18 19:41 132 H 31 H 109/40 100 11/06/18 19:31 132 H 31 H 147/60 11/06/18 19:27 98.1 F 11/06/18 19:21 131 H 29 H 145/52 100 11/06/18 19:11 131 H 30 H 109/40 100 11/06/18 19:01 133 H 31 H 109/40 100 11/06/18 18:51 125 H 27 H 109/40 100 11/06/18 18:41 126 H 28 H 116/37 100 11/06/18 18:31 122 H 26 H 116/37 100 11/06/18 18:21 121 H 30 H 123/42 100 11/06/18 18:11 121 H 28 H 108/36 100 11/06/18 18:01 119 H 20 108/36 11/06/18 17:51 118 H 39 H 104/38 11/06/18 17:50 129 H 11/06/18 17:41 118 H 24 91/43 11/06/18 17:31 118 H 24 91/43 11/06/18 17:21 118 H 25 H 102/40 100 11/06/18 17:11 115 H 24 99/36 100 11/06/18 17:01 114 H 24 99/36 100 11/06/18 16:51 114 H 19 92/45 11/06/18 16:41 113 H 21 109/37 100 11/06/18 16:31 114 H 25 H 109/37 100 11/06/18 16:30 100 11/06/18 16:27 114 H 108/38 11/06/18 16:21 113 H 24 108/38 100 11/06/18 16:11 113 H 23 110/33 100 11/06/18 16:01 112 H 26 H 110/33 100 11/06/18 15:57 112 H 26 H 100 11/06/18 15:15 110 H 11/06/18 15:10 99 F 11/06/18 15:05 108 H 76/35 99 11/06/18 14:30 18 88/30 100 11/06/18 14:22 105 H 11/06/18 14:20 22 77/31 100 11/06/18 14:10 104 H 37 H 76/32 100 11/06/18 14:00 103 H 27 H 80/32 100 11/06/18 13:50 105 H 23 85/37 100 11/06/18 13:40 209 H 23 92/28 11/06/18 13:30 207 H 41 H 90/30 11/06/18 13:20 210 H 36 H 89/31 11/06/18 13:10 106 H 20 89/37 11/06/18 13:00 117 H 16 86/36 11/06/18 12:50 115 H 35 H 91/35 11/06/18 12:40 212 H 35 H 92/43 11/06/18 12:30 222 H 23 83/40 11/06/18 12:20 106 H 25 H 96/39 11/06/18 12:00 24 89/37 100 - Physical Examination HEENT: Positive: Other (patient is intubated. Not responsive. Not on any IV sedation. Pupils are fixed and dilated.) Abdomen: Positive: Unremarkable, Soft, Active Bowel Sounds Extremities: Present: Cool. Absent: edema - Labs and Meds CBC 11/07/18 Range/Units 10:50 WBC 11.3 H (4.5-11.0) K/mm3 RBC 2.85 L (3.65-5.03) M/mm3 Hgb 8.7 L (11.8-15.2) gm/dl Hct 25.3 L D (35.5-45.6) % Plt Count 150 (140-440) K/mm3 Lymph # 1.1 L (1.2-5.4) K/mm3 [place] # 0.8 (0.0-0.8) K/mm3 Eos # 0.0 (0.0-0.4) K/mm3 Baso # 0.0 (0.0-0.1) K/mm3 Comprehensive Metabolic Panel 11/06/18 11/06/18 11/06/18 Range/Units 12:07 14:15 15:21 Sodium 135 L 137 138 (137-145) mmol/L Potassium 7.0 H* D 6.6 H* 6.0 H (3.6-5.0) mmol/L Chloride 88.4 L 95.3 L 93.3 L (98-107) mmol/L Carbon Dioxide 5 L* 4 L* 6 L* (22-30) mmol/L BUN 89 H 83 H 91 H (9-20) mg/dL Creatinine 7.2 H 6.9 H 7.3 H (0.8-1.5) mg/dL Glucose 1326 H* 1205 H* 1174 H* (75-100) mg/dL Calcium 8.4 8.4 8.2 L (8.4-10.2) mg/dL 11/06/18 11/06/18 11/06/18 Range/Units 17:34 19:30 20:40 Sodium 140 142 (137-145) mmol/L Potassium 5.5 H 4.9 (3.6-5.0) mmol/L Chloride 97.4 L 97.7 L (98-107) mmol/L Carbon Dioxide 10 L 11 L (22-30) mmol/L BUN 88 H 87 H (9-20) mg/dL Creatinine 7.5 H 7.6 H (0.8-1.5) mg/dL Glucose 1054 H* 954 H* 907 H* (75-100) mg/dL Calcium 7.7 L 7.4 L (8.4-10.2) mg/dL 11/06/18 11/06/18 11/07/18 Range/Units 22:05 23:35 01:25 Sodium 143 (137-145) mmol/L Potassium 4.2 (3.6-5.0) mmol/L Chloride 99.6 (98-107) mmol/L Carbon Dioxide 13 L (22-30) mmol/L BUN 86 H (9-20) mg/dL Creatinine 7.8 H (0.8-1.5) mg/dL Glucose 822 H* 726 H* 602 H* (75-100) mg/dL Calcium 7.5 L (8.4-10.2) mg/dL 11/07/18 11/07/18 11/07/18 Range/Units 03:20 06:35 10:50 Sodium 149 H 153 H 154 H (137-145) mmol/L Potassium 3.7 3.2 L 3.2 L (3.6-5.0) mmol/L Chloride 106.2 109.7 H 110.2 H (98-107) mmol/L Carbon Dioxide 16 L 23 D 26 (22-30) mmol/L BUN 86 H 84 H 82 H (9-20) mg/dL Creatinine 8.3 H 8.6 H 8.3 H (0.8-1.5) mg/dL Glucose 499.2 H 249 H 186 H (75-100) mg/dL Calcium 7.6 L 7.6 L 7.3 L (8.4-10.2) mg/dL - EKG Sinus rhythms and dysrhythmias: sinus arrest or pause Ventricular dysrhythmias: idioventricular escape rh AV and intraventricular conduction: intraventricular conducti Repolarization changes or abnormalities: Suggestive of hyperkalemia (wide QRS complexes and ST depression evaluation probably all due to severe hyperkalemia. The last EKG does not show any ST elevation but continues to show peaked T waves.)
--- NOTE | 2018-11-07 12:28 | Consultation ---
PULMONARY CRITICAL CARE CONSULTATION CONSULTING PHYSICIAN: Dr. Mendoza. REASON FOR CONSULTATION: Acute hypoxemic respiratory failure, on mechanical ventilatory support, status post cardiac arrest. CHIEF COMPLAINT AND HISTORY OF PRESENT ILLNESS: The patient is a 42-year-old male with past medical history indeed significant amongst other things for a diagnosis of end-stage renal disease, on dialysis, but also I believe diabetes, who according to his family was last spoken to by his mother the night before presentation. At that time, he was complaining of having some trouble with his diabetes medications. Reportedly by the time the family got to his house the next time he was found down and unresponsive by his family. There had been suggestion of bloody emesis or hematemesis. Emergency medical services on arrival found the patient in distress. It seems like he was intubated, placed on the ventilator and transported. Reportedly he also had a cardiac arrest while he was in the ambulance. This is per the patient's mother. He was brought into the Emergency Room as a code STEMI. In the Emergency Room here, he again suffered another cardiac arrest. ACLS protocol, CPR and there was return of spontaneous circulation. He was found to be septic, to be in diabetic ketoacidosis. Cardiology was consulted in the Emergency Room. The feeling was that supportive care should be the way to go. His initial rhythm was felt to be a widened QRS complex secondary to hyperkalemia and probably non-ST elevations, but rather peaked Q waves. When I stopped by to see him, he was actually beginning to respond. Earlier arterial blood gases had revealed a severe metabolic acidosis, and we were in the process of replacing his bicarbonate. He was also being hyperventilated in the short term to try and compensate. I do not have any history of tobacco use or abuse at this time, but ultimately his sister in the room describes him as an everyday smoker. I am unable to quantify it. This really is as much of the history of presentation as I have. PAST MEDICAL HISTORY: Hypertension, diabetes, end-stage renal disease, reportedly on dialysis. PAST SURGICAL HISTORY: He has a left upper extremity AV graft. MEDICATIONS: He was on at the time I stopped by to see him were reviewed. Pertinent medications included the following: He was on epinephrine drip going at 10 mcg per minute. Insulin drip, I believe it was going at 3 units per hour. Keppra had been ordered 1 gram IV q.24. Levophed drip was going at 8 mcg per minute. ALLERGIES: No known drug allergies. DIET: Thin gentleman. Family denies acute weight loss or gain in the preceding few weeks to months. FAMILY AND SOCIAL HISTORY: Lives in the community. He is described as a daily smoker. They had denied alcohol or illicit drug use or abuse. Family history is otherwise noncontributory. REVIEW OF SYSTEMS: Unobtainable secondary to patient's medical and mental condition. Since he has been here, no seizure activity. No gross hematochezia or melena. No gross hematuria, no hematemesis, no bloody tracheal secretions. He did have a cardiac arrest in the Emergency Room. PHYSICAL EXAMINATION: VITAL SIGNS: At presentation in the Emergency Room, review of the vital signs shows that initial temperature was 93.2 degrees Fahrenheit rectally with a pulse of 105, respiratory rate of 41, blood pressure was 95/26 at presentation, O2 sats were 98%, inspired oxygen concentration was not recorded. When I stopped by to see him, his O2 sats were 98% and that was on the assist control mode of ventilation, tidal volume 450, set rate of 12, PEEP of 6 on 40% FiO2. GENERAL: He is a middle-aged male. Normocephalic, atraumatic, on the mechanical ventilator with moderately increased respiratory effort even on the ventilator. HEAD, EYES, EARS, NOSE AND THROAT: He is anicteric. No conjunctival erythema. Oropharynx is moist. Endotracheal tube is taped in place around 24 cm at the lips. NECK: Grossly, no palpable lymph nodes in the supraclavicular or submandibular lymph node chains. No gross jugular venous distention. LUNGS: Auscultation of both lung grant, bibasilar inspiratory rhonchi, no wheezing. HEART: Heart sounds 1 and 2 are heard. They were regular in rate and rhythm at the time of my evaluation without overt rubs or murmurs. ABDOMEN: Soft, flat. Bowel sounds are positive, nontender. No palpable hepatosplenomegaly. EXTREMITIES: Without overt digital clubbing, no cyanosis, no pedal edema. Pedal pulses are weak bilaterally in the bases. He does have a left upper extremity AV graft. NEUROLOGIC: Pupils are equal, round, about 3 mm, reactive to light. Extraocular muscle movements could not be assessed. He did have a good cough response to deep suctioning. He had spontaneous movements to all his extremities and appeared to try to localize my hands doing a sternal rub. SKIN: The skin was of poor turgor without overt cellulitis or rash. LABORATORY DATA: From my review, white cell count 20,100, hemoglobin 10.5, hematocrit 40.4, platelet count 268, 18% band neutrophils were reported. Arterial blood gas showed a pH of 6.84 at presentation. PO2 and PCO2 were not recorded. The most recent ABG showed a pH of 7.00, pCO2 of 33, pO2 of 178 that was on 40% FiO2 on the above-mentioned vent settings. Presentation serum sodium was 131, potassium was 8.9, chloride was 85, bicarbonate was 6, BUN was 90, creatinine was 7.1, and glucose was 1353. Anion gap was 49. Lactic acid was 9.4. Phosphorus 14.5, magnesium 2.7. AST was 2679, ALT 1175. Albumin was low at 2.9. Urinalysis was negative for nitrites and leukocyte esterase and really unremarkable. Urine drug screen was positive only for THC. Also, alcohol, aspirin and Tylenol levels were nondetectable. Two sets of blood cultures are no growth to date. A CT scan of his head was done at presentation. I have reviewed the CT report, no acute intracranial abnormality and no obvious evidence of overt anoxic encephalopathy was reported. He does have some small microvascular changes. A chest x-ray shows an endotracheal tube tip right in a little bit high at the upper border of the clavicular heads, maybe about 7 and 8 cm above the rolando. No gross pneumothorax, mild interstitial edema, no gross cardiomegaly, no gross bony fractures that I can see. ASSESSMENT: 1. Acute hypoxemic respiratory failure, on mechanical ventilator support. 2. Diabetic ketoacidosis. 3. Severe metabolic acidosis. 4. Severe sepsis with shock. 5. Acute encephalopathy that appears to be toxic metabolic. 6. End-stage renal disease, on dialysis. 7. Hyperkalemia at presentation. 8. Diabetes. 9. Peripheral vascular disease. 10. Anemia that is macrocytic. 11. Elevated serum transaminases, likely representing shock liver. 12. Mild hyponatremia, pseudohyponatremia actually. 13. Lactic acidosis. PLAN: The elevated liver enzymes suggest a significant amount of shock liver and probably being down for a while; however, he has shown some significant neurologic improvements at this stage. He certainly is not brain and may well show signs of overall improvement. It might be that a neuroglycopenia and not anoxic encephalopathy might be at play here. The plan will be from a respiratory standpoint to increase the set minute ventilation to compensate for the metabolic acidosis. The rate will be increased to 30. We will repeat arterial blood gases in short course. In the meantime, I will push 2 amps of bicarbonate in light of his severe hypotension at this point and I will start him on a bicarbonate drip. I will go ahead and mix that in D5W for now but quickly transition it to mix it in sterile water because of his diabetic ketoacidosis. Oxygen will be weaned to keep sats greater than or equal to 90%. Aspiration precautions will be maintained. Ventilator-associated pneumonia bundle has been introduced. Bronchodilators and pulmonary hygiene will be per the respiratory therapist. Vasopressors will be weaned to keep mean arterial pressures greater than or equal to over 65 mmHg. Aggressive volume resuscitation will also be done in the short course. I will have them bolus him a liter of normal saline at this point and then continue with the D5W with a bicarbonate drip. A CRP level will be ordered. I will empirically start him on broad-spectrum antibiotic therapy, deescalate based on results of clinical and microbiologic data. He is going to be placed on GI prophylaxis as well as DVT prophylaxis. I have a rather low suspicion for venous thromboembolic event at this time. We will follow him clinically for now. Flu and pneumonia vaccination will be addressed per protocol. Thank you very much for the consult dear Dr. Mendoza. We will follow along closely and make further recommendations as picture progresses/becomes clearer. JOB# [id number] CARMEL/VIRGIE ARAGON
[2018-11-07] MEDS: HumuLIN R 100 UNITS in NACL 0.9% 99 ML IV SCH (13:10)
[2018-11-07 13:57] LABS: Calcium 7.4 mg/dL (8.4-10.2)
--- NOTE | 2018-11-07 14:03 | Progress Note ---
Assessment and Plan Assessment and plan: 42 YO Male with ESRD on HD, HTN, DM, PAD, Nicotine Dependence presents to ED for evaluation. Pt is unable to provide history. Pt history taken from EMS, ED Staff, and patient family who is at bedside during exam. As per family, the patient was in his usual state of health around bedtime at 2200hrs. Pt was found down and unresponsive by family today this morning. EMS notified, and upon arrival the patient was found to be in distress. Pt Intubated and placed on vent support. Pt transported to [facility]. Pt seen and evaluated in ED and found to have STEMI, Acute on Chronic Renal Failure, Acidosis, Acute Respiratory Failure, Sepsis, and DKA. Pt experienced cardiac arrest in ED and was treated IAW ACLS protocol with return of perfusing cardiac rhythm. Pt found to have signs of Anoxic Brain Injury. Pt admitted to ICU and initiated on sepsis protocol and treated with IVF resuscitation therapy, IV pressor support. Pt has poor prognosis. Neurology consulted in ED, Cardiology consulted in ED, and Nephrology team consulted in ED. No further history obtainable. Acute Hypoxic Respiratory failure S/P Cardiopulmonary Arrest-unknown etiology DKA Severe metabolic Acidosis Anoxic Encephalopathy Seizure Disorder Acute Kidney Injury secondary to ischemic ATN from hypotension, cardiac arrest, in setting of underlying hx CKD 4 Cardiogenic Shock S/P High Anion Gap Metabolic Acidosis with elevated lactic acidosis with DKA- Improving S/P Hyperkalemia Hypokalemaia Hyperphosphatemia Anemia of chronic disease PAD Shock Liver Plan Continue supportive care Cardiology, Pulmonary and Nephrology input noted Anticipate HD today Switch to D5W/0.45%NS/20 meq KCL@ 125 ml/hr for now Monitor and replace electrolytes as needed IV keppra Poor Prognosis Abx per ID The high probability of a clinically significant, sudden or life threatening deterioration of the [neuro, cardiac, renal, respiratory] system(s) required my full and direct attention, intervention and personal management. The aggregate critical care time was [65] minutes. This time is in addition to time spent performing reported procedures but includes the following: [x] Data Review and interpretation [x] Patient assessment and monitoring of vital signs [x] Documentation [x] Medication orders and management History Interval history: Patient seen and examined, intubated, non responsive, no family present. no other adverse event reported by nursing staff. Hospitalist Physical - Physical exam Narrative exam: VITAL SIGNS: Reviewed. GENERAL: The patient appeared well nourished and normally developed, on full mechanical ventilation and non responsive despite no sedation. Vital signs as documented. HEAD: No signs of head trauma. EYES: Pupils are equal. EARS: unable to assess MOUTH: ETT in place NECK: No adenopathy, no JVD. CHEST: Diminished CARDIAC: Regular rate and rhythm. S1 and S2, without murmurs, gallops, or rubs. VASCULAR: lEFT AV GRAFT. +thrill. Peripheral pulses normal and equal in all extremities. ABDOMEN: Soft, non tender and non distended. No rebound or guarding, and no masses palpated. OGT noted MUSCULOSKELETAL: Good range of motion of all major joints. Extremities without clubbing, cyanosis or edema. NEUROLOGIC EXAM: unresponsive. PSYCHIATRIC: unable to examine. SKIN: No rash or lesions. - Constitutional Vitals: Temp Pulse Resp BP Pulse Ox 100.0 F H 101 H 28 H 147/84 100 11/07/18 12:00 11/07/18 13:45 11/07/18 13:15 11/07/18 13:45 11/07/18 13:15 General appearance: Present: severe distress Results - Labs CBC & Chem 7: 11/07/18 10:50 11/07/18 13:20 Labs: Laboratory Last Values WBC 11.3 K/mm3 (4.5-11.0) H 11/07/18 10:50 RBC 2.85 M/mm3 (3.65-5.03) L 11/07/18 10:50 Hgb 8.7 gm/dl (11.8-15.2) L 11/07/18 10:50 Hct 25.3 % (35.5-45.6) L D 11/07/18 10:50 MCV 89 fl (84-94) 11/07/18 10:50 MCH 30 pg (28-32) 11/07/18 10:50 MCHC 34 % (32-34) 11/07/18 10:50 RDW 14.1 % (13.2-15.2) 11/07/18 10:50 Plt Count 150 K/mm3 (140-440) 11/07/18 10:50 Lymph % (Auto) 9.7 % (13.4-35.0) L 11/07/18 10:50 [place] % (Auto) 6.8 % (0.0-7.3) 11/07/18 10:50 Eos % (Auto) 0.1 % (0.0-4.3) 11/07/18 10:50 Baso % (Auto) 0.1 % (0.0-1.8) 11/07/18 10:50 Lymph # 1.1 K/mm3 (1.2-5.4) L 11/07/18 10:50 [place] # 0.8 K/mm3 (0.0-0.8) 11/07/18 10:50 Eos # 0.0 K/mm3 (0.0-0.4) 11/07/18 10:50 Baso # 0.0 K/mm3 (0.0-0.1) 11/07/18 10:50 Add Manual Diff Complete 11/06/18 09:02 Total Counted 100 11/06/18 09:02 Seg Neutrophils % 83.3 % (40.0-70.0) H 11/07/18 10:50 Seg Neuts % (Manual) 76.0 % (40.0-70.0) H 11/06/18 09:02 18.0 % 11/06/18 09:02 4.0 % (13.4-35.0) L 11/06/18 09:02 Reactive Lymphs % (Man) 0 % 11/06/18 09:02 2.0 % (0.0-7.3) 11/06/18 09:02 0 % (0.0-4.3) 11/06/18 09:02 0 % (0.0-1.8) 11/06/18 09:02 0 % 11/06/18 09:02 0 % 11/06/18 09:02 0 % 11/06/18 09:02 0 % 11/06/18 09:02 Nucleated RBC % 1.0 % (0.0-0.9) H 11/06/18 09:02 Seg Neutrophils # 9.4 K/mm3 (1.8-7.7) H 11/07/18 10:50 Seg Neutrophils # Man 15.3 K/mm3 (1.8-7.7) H 11/06/18 09:02 Band Neutrophils # 3.6 K/mm3 11/06/18 09:02 0.8 K/mm3 (1.2-5.4) L 11/06/18 09:02 Abs React Lymphs (Man) 0.0 K/mm3 11/06/18 09:02 0.4 K/mm3 (0.0-0.8) 11/06/18 09:02 0.0 K/mm3 (0.0-0.4) 11/06/18 09:02 0.0 K/mm3 (0.0-0.1) 11/06/18 09:02 0.0 K/mm3 11/06/18 09:02 0.0 K/mm3 11/06/18 09:02 0.0 K/mm3 11/06/18 09:02 Blast Cells # 0.0 K/mm3 11/06/18 09:02 WBC Morphology Not Reportable 11/06/18 09:02 Hypersegmented Neuts Not Reportable 11/06/18 09:02 Hyposegmented Neuts Not Reportable 11/06/18 09:02 Hypogranular Neuts Not Reportable 11/06/18 09:02 Not Reportable 11/06/18 09:02 Not Reportable 11/06/18 09:02 Not Reportable 11/06/18 09:02 Not Reportable 11/06/18 09:02 Not Reportable 11/06/18 09:02 Not Reportable 11/06/18 09:02 Consistent w auto 11/06/18 09:02 Not Reportable 11/06/18 09:02 Plt Clumps, EDTA Not Reportable 11/06/18 09:02 Not Reportable 11/06/18 09:02 Not Reportable 11/06/18 09:02 Not Reportable 11/06/18 09:02 Plt Morphology Comment Not Reportable 11/06/18 09:02 RBC Morphology Not Reportable 11/06/18 09:02 Dimorphic RBCs Not Reportable 11/06/18 09:02 Not Reportable 11/06/18 09:02 Not Reportable 11/06/18 09:02 Not Reportable 11/06/18 09:02 Not Reportable 11/06/18 09:02 Not Reportable 11/06/18 09:02 2+ 11/06/18 09:02 Not Reportable 11/06/18 09:02 Not Reportable 11/06/18 09:02 Not Reportable 11/06/18 09:02 Not Reportable 11/06/18 09:02 Not Reportable 11/06/18 09:02 Not Reportable 11/06/18 09:02 Not Reportable 11/06/18 09:02 Not Reportable 11/06/18 09:02 Not Reportable 11/06/18 09:02 Not Reportable 11/06/18 09:02 Not Reportable 11/06/18 09:02 Not Reportable 11/06/18 09:02 Not Reportable 11/06/18 09:02 Acanthocytes (Spur) Not Reportable 11/06/18 09:02 Rouleaux Not Reportable 11/06/18 09:02 Not Reportable 11/06/18 09:02 Not Reportable 11/06/18 09:02 Not Reportable 11/06/18 09:02 Not Reportable 11/06/18 09:02 Hem Pathologist Commnt No 11/06/18 09:02 POC ABG pH 7.441 (7.35-7.45) 11/07/18 04:47 POC ABG pCO2 30.3 (35-45) L 11/07/18 04:47 POC ABG pO2 153 (80-105) H 11/07/18 04:47 POC ABG HCO3 20.6 (22-26 mml/L) 11/07/18 04:47 POC ABG Total CO2 22 (23-27mmol/L) 11/07/18 04:47 POC ABG O2 Sat 99 11/07/18 04:47 POC ABG Base Excess -4 ((-2) - (+3)mmol/L) 11/07/18 04:47 VBG pH 6.982 (7.320-7.420) L* 11/06/18 13:22 30 % 11/07/18 04:47 Sodium 154 mmol/L (137-145) H 11/07/18 10:50 Potassium 3.1 mmol/L (3.6-5.0) L 11/07/18 13:20 Chloride 103.1 mmol/L (98-107) 11/07/18 13:20 Carbon Dioxide 26 mmol/L (22-30) 11/07/18 13:20 17 mmol/L 11/07/18 13:20 BUN 50 mg/dL (9-20) H 11/07/18 13:20 5.0 mg/dL (0.8-1.5) H 11/07/18 13:20 Estimated GFR 16 ml/min 11/07/18 13:20 10 % 11/07/18 13:20 Glucose 176 mg/dL (75-100) H 11/07/18 13:20 POC Glucose 190 (70-105) H 11/07/18 13:13 Lactic Acid 2.50 mmol/L (0.7-2.0) H* 11/07/18 12:05 Calcium 7.4 mg/dL (8.4-10.2) L 11/07/18 13:20 Phosphorus 13.00 mg/dL (2.5-4.5) H 11/06/18 14:15 Magnesium 2.60 mg/dL (1.7-2.3) H 11/06/18 14:15 0.20 mg/dL (0.1-1.2) 11/06/18 09:02 AST 2679 units/L (5-40) H 11/06/18 09:02 ALT 1175 units/L (7-56) H 11/06/18 09:02 124 units/L (35-129) 11/06/18 09:02 58 units/L (55-170) 11/06/18 09:02 0.027 ng/mL (0.00-0.029) 11/06/18 09:02 1.90 mg/dL (0.00-1.30) H 11/06/18 19:30 6.1 g/dL (6.3-8.2) L 11/06/18 09:02 2.9 g/dL (3.9-5) L 11/06/18 09:02 0.9 % 11/06/18 09:02 Straw (Yellow) 11/06/18 10:38 Clear (Clear) 11/06/18 10:38 5.0 (5.0-7.0) 11/06/18 10:38 Ur Specific Spur 1.014 (1.003-1.030) 11/06/18 10:38 100 mg/dl mg/dL (Negative) 11/06/18 10:38 >=500 mg/dL (Negative) 11/06/18 10:38 20 mg/dL (Negative) 11/06/18 10:38 Sm (Negative) 11/06/18 10:38 Neg (Negative) 11/06/18 10:38 Neg (Negative) 11/06/18 10:38 < 2.0 mg/dL (<2.0) 11/06/18 10:38 Ur Leukocyte Esterase Neg (Negative) 11/06/18 10:38 < 1.0 /HPF (0.0-6.0) 11/06/18 10:38 2.0 /HPF (0.0-6.0) 11/06/18 10:38 U Epithel Cells (Auto) < 1.0 /HPF (0-13.0) 11/06/18 10:38 Salicylates < 0.3 mg/dL (2.8-20.0) L 11/06/18 09:02 Presumptive negative 11/06/18 10:38 Presumptive negative 11/06/18 10:38 Acetaminophen < 5.0 ug/mL (10.0-30.0) L 11/06/18 09:02 Ur Barbiturates Screen Presumptive negative 11/06/18 10:38 Ur Phencyclidine Scrn Presumptive negative 11/06/18 10:38 Ur Amphetamines Screen Presumptive negative 11/06/18 10:38 U Benzodiazepines Scrn Presumptive negative 11/06/18 10:38 Presumptive negative 11/06/18 10:38 U Marijuana (THC) Screen Presumptive positive 11/06/18 10:38 Disclamer 11/06/18 10:38 Plasma/Serum Alcohol < 0.01 % (0-0.07) 11/06/18 09:02 Blood Type A POSITIVE 11/06/18 14:15 Antibody Screen Not Reportable 11/06/18 14:15 JANIS Antibody Screen Negative 11/06/18 14:15 Active Medications - Current Medications Current Medications: Generic Name Dose Route Start Last Admin Trade Name Freq PRN Reason Stop Dose Admin Acetaminophen 650 mg 11/06/18 22:22 11/06/18 22:33 Tylenol FEEDTUBE 650 mg Q6H PRN Administration Fever >101 Chlorpromazine HCl 10 mg 11/07/18 08:07 Thorazine PO Q6H PRN Hiccups Dextrose 0 ml 11/06/18 13:45 D50w (25gm) Syringe IV PRN PRN Hypoglycemia Fentanyl 50 mcg 11/06/18 08:37 Sublimaze IV Q10MIN PRN ANALGESIA Hydrophilic Ointment 1 applic 11/06/18 08:26 Vaseline Lip Therapy TP Q2HR PRN Dry Lips Fentanyl Citrate 2,000 mcg in 100 mls @ 4.309 mls/hr 11/06/18 10:00 11/07/18 11:00 Fentanyl Drip Premix IV 1 mcg/kg/hr TITR MARIAJOSE 4.309 mls/hr Titration Protocol 1 MCG/KG/HR Epinephrine 8 mg/ Sodium 250 mls @ 3.75 mls/hr 11/06/18 10:00 11/06/18 23:49 Chloride IV 11/09/18 04:39 0 mcg/min TITR ONE 0 mls/hr Titration Protocol 2 MCG/MIN Insulin Human Regular 100 100 mls @ 1 mls/hr 11/06/18 11:00 11/07/18 11:50 units/ Sodium Chloride IV 2.5 units/hr TITR MARIAJOSE 2.5 mls/hr Titration Protocol 1 UNITS/HR Norepinephrine 4 mg in 250 mls @ 7.5 mls/hr 11/06/18 16:00 11/07/18 05:50 Levophed Drip 4 Mg/Ns 250 Ml IV 0 mcg/min TITR MARIAJOSE 0 mls/hr Titration Protocol 2 MCG/MIN Levetiracetam 1,000 mg in 100 mls @ 400 mls/hr 11/06/18 18:00 11/07/18 09:12 Keppra 1,000 Mg/Ns 0.75% 100ml IV 400 mls/hr Q24HR MARIAJOSE Administration Sodium Bicarbonate 150 meq/ 1,150 mls @ 150 mls/hr 11/06/18 20:00 11/07/18 05:51 Sterile Water IV 11/09/18 03:39 150 mls/hr DIRECT MARIAJOSE Administration Piperacillin Sod/Tazobactam Sod 2.25 gm in 50 mls @ 100 mls/hr 11/06/18 22:00 11/07/18 07:15 Zosyn/Ns 2.25 Gm/50ml IV 100 mls/hr Q8HR MARIAJOSE Administration Protocol Potassium Chloride/Dextrose/Sod Cl 20 meq in 1,000 mls @ 125 mls/hr 11/07/18 09:00 11/07/18 08:35 D5w/0.45% Nacl/Kcl 20 Meq IV 125 mls/hr DIRECT MARIAJOSE Administration Multi-Ingred Cream/Lotion/Oil/Oint 1 applic 11/06/18 08:26 Artificial Tears Ophth Oint OU Q4HR PRN Dry Eye(s) Pantoprazole Sodium 40 mg 11/06/18 20:00 11/07/18 09:12 Protonix IV 40 mg Q12H MARIAJOSE Administration Sodium Chloride 10 ml 11/06/18 22:00 11/07/18 09:16 Sodium Chloride Flush Syringe 10 Ml IV 10 ml BID MARIAJOSE Administration Sodium Chloride 10 ml 11/06/18 12:42 Sodium Chloride Flush Syringe 10 Ml IV PRN PRN LINE FLUSH
[2018-11-07 14:08] LABS: Hepatitis B Surface Antigen Non-Reactive (Negative); Hepatitis C Virus Antibody Non-Reactive (NonReactive)
[2018-11-07] MEDS: fentaNYL DRIP Premix 2,000 MCG/100 ML BAG IV SCH (14:14)
--- NOTE | 2018-11-07 14:41 | Progress Note ---
Assessment and Plan Acute hypoxemic respiratory failure, on mechanical ventilator support. Diabetic ketoacidosis. Severe metabolic acidosis. Severe sepsis with shock. Acute encephalopathy that appears to be toxic metabolic. End-stage renal disease, on dialysis. Hyperkalemia at presentation. Diabetes. Peripheral vascular disease. Anemia that is macrocytic. Elevated serum transaminases, likely representing shock liver. Mild hyponatremia, pseudohyponatremia actually. Lactic acidosis. - begin daily SAT's and SBT assessment in am as tolerated - AMS is currently a rate limiting factor to safe extubation - prn sedation target for RASS 0 to -1 - wean off vasopressors for MAP > 65 mmHg - continue to wean supplemental oxygen to keep O2 sats > 90% - continue empiric AB's for now (de-escalate based on clinical and radiologic data) - continue bronchodilators with pulmonary hygiene per RT - Lung protective strategies - VAP bundle addressed - HD/UF as tolerated for toxin and volume clearance - neurology evaluation ongoing - Monitor renal indices closely - continue to avoid nephrotoxic agents, adjust all medications for CrCL - Strict intake and output monitoring - continue enteral nutrition as tolerated - continue accuchecks with glycemic control per SSI for target glucose of 140- 180 mg/dL - Maintenance of sleep -wake cycle - Mobility protocol for pressure ulcer prophylaxis - continue GI & VTE prophylaxis - Influenza and pneumonia vaccination per protocol PROGNOSIS: GUARDED CONDITION: CRITICAL CODE STATUS: FULL CODE The high probability of a clinically significant, sudden or life-threatening deterioration of the [respiratory, neurology, renal] system(s) required my full and direct attention, intervention and personal management. The aggregate critical care time was [35] minutes without overlap. Time includes spent on; [x] Data Review and interpretation [x] Patient assessment and monitoring of vital signs [x] Documentation [x] Medication orders and management Subjective Date of service: 11/07/18 Principal diagnosis: Ac hypoxemic resp failure; DKA; Severe sepsis with shock; ESRD on dialysis Interval history: Patient is seen today for: Acute hypoxemic respiratory failure on MVS; DKA; Severe metabolic acidosis; Severe sepsis with shock; Acute encephalopathy that appears to be toxic metabolic; ESRD on dialysis; DM II; Peripheral vascular disease. Seen and examined at bedside; 24hour events reviewed; nursing and respiratory care staff consulted; no adverse overnight events reported to me; remains on MVS; now with some bothersome myoclonic type jerks and twitches; not following commands; weaning off vasopressors and acid-base balance improved; No emesis or overt aspiration Objective Vital Signs - 12hr 11/07/18 11/07/18 11/07/18 02:45 03:00 03:15 Temperature Pulse Rate 102 H 100 H 100 H Pulse Rate [ From Monitor] Respiratory 30 H 28 H 31 H Rate Blood Pressure 105/55 113/59 113/59 O2 Sat by Pulse 100 100 Oximetry O2 Sat by Pulse Oximetry [ Anterior Bilateral Throughout] 11/07/18 11/07/18 11/07/18 03:24 03:30 03:45 Temperature 100.7 F H Pulse Rate 100 H 99 H Pulse Rate [ From Monitor] Respiratory 30 H 30 H Rate Blood Pressure 107/61 107/61 O2 Sat by Pulse 100 Oximetry O2 Sat by Pulse Oximetry [ Anterior Bilateral Throughout] 11/07/18 11/07/18 11/07/18 04:00 04:15 04:23 Temperature 101.2 F H Pulse Rate 99 H 99 H Pulse Rate [ From Monitor] Respiratory 30 H 30 H Rate Blood Pressure 112/63 122/66 O2 Sat by Pulse 100 100 Oximetry O2 Sat by Pulse Oximetry [ Anterior Bilateral Throughout] 11/07/18 11/07/18 11/07/18 04:31 04:45 05:01 Temperature Pulse Rate 100 H 101 H 99 H Pulse Rate [ From Monitor] Respiratory 28 H 25 H 28 H Rate Blood Pressure 126/66 126/66 113/52 O2 Sat by Pulse 100 100 Oximetry O2 Sat by Pulse Oximetry [ Anterior Bilateral Throughout] 11/07/18 11/07/18 11/07/18 05:15 05:30 05:45 Temperature Pulse Rate 99 H 98 H 100 H Pulse Rate [ From Monitor] Respiratory 28 H 31 H 25 H Rate Blood Pressure 113/52 111/57 111/57 O2 Sat by Pulse 100 Oximetry O2 Sat by Pulse Oximetry [ Anterior Bilateral Throughout] 11/07/18 11/07/18 11/07/18 06:00 06:01 06:15 Temperature Pulse Rate 101 H 105 H Pulse Rate [ 101 H From Monitor] Respiratory 30 H 27 H 30 H Rate Blood Pressure 104/62 104/62 O2 Sat by Pulse 100 100 100 Oximetry O2 Sat by Pulse Oximetry [ Anterior Bilateral Throughout] 11/07/18 11/07/18 11/07/18 06:31 06:45 07:01 Temperature Pulse Rate 99 H 101 H 102 H Pulse Rate [ From Monitor] Respiratory 30 H 28 H 31 H Rate Blood Pressure 118/63 125/69 137/91 O2 Sat by Pulse 100 100 100 Oximetry O2 Sat by Pulse Oximetry [ Anterior Bilateral Throughout] 11/07/18 11/07/18 11/07/18 07:15 07:31 07:45 Temperature Pulse Rate 102 H 103 H 107 H Pulse Rate [ From Monitor] Respiratory 25 H 27 H 16 Rate Blood Pressure 137/91 145/83 145/83 O2 Sat by Pulse 100 100 Oximetry O2 Sat by Pulse Oximetry [ Anterior Bilateral Throughout] 11/07/18 11/07/18 11/07/18 08:00 08:15 08:31 Temperature 99.6 F Pulse Rate 110 H 111 H 109 H Pulse Rate [ From Monitor] Respiratory 30 H 30 H 17 Rate Blood Pressure 166/88 166/88 170/91 O2 Sat by Pulse 100 100 100 Oximetry O2 Sat by Pulse Oximetry [ Anterior Bilateral Throughout] 11/07/18 11/07/18 11/07/18 08:45 09:01 09:15 Temperature Pulse Rate 106 H 104 H 104 H Pulse Rate [ From Monitor] Respiratory 26 H 30 H 19 Rate Blood Pressure 170/91 136/64 128/71 O2 Sat by Pulse 100 99 100 Oximetry O2 Sat by Pulse Oximetry [ Anterior Bilateral Throughout] 11/07/18 11/07/18 11/07/18 09:31 09:45 10:00 Temperature Pulse Rate 105 H 104 H 113 H Pulse Rate [ From Monitor] Respiratory 14 17 Rate Blood Pressure 132/69 132/69 O2 Sat by Pulse 96 Oximetry O2 Sat by Pulse Oximetry [ Anterior Bilateral Throughout] 11/07/18 11/07/18 11/07/18 10:01 10:15 10:31 Temperature Pulse Rate 105 H 104 H 108 H Pulse Rate [ From Monitor] Respiratory 18 18 17 Rate Blood Pressure 128/71 128/71 128/71 O2 Sat by Pulse 97 100 100 Oximetry O2 Sat by Pulse Oximetry [ Anterior Bilateral Throughout] 11/07/18 11/07/18 11/07/18 10:45 11:00 11:01 Temperature Pulse Rate 111 H 105 H 133 H Pulse Rate [ From Monitor] Respiratory 17 19 Rate Blood Pressure 128/71 140/71 128/71 O2 Sat by Pulse 100 100 99 Oximetry O2 Sat by Pulse Oximetry [ Anterior Bilateral Throughout] 11/07/18 11/07/18 11/07/18 11:15 11:30 11:31 Temperature Pulse Rate 107 H 103 H Pulse Rate [ From Monitor] Respiratory 30 H 30 H Rate Blood Pressure 140/71 129/68 O2 Sat by Pulse 98 99 Oximetry O2 Sat by Pulse 100 Oximetry [ Anterior Bilateral Throughout] 11/07/18 11/07/18 11/07/18 11:45 12:00 12:01 Temperature 100.0 F H Pulse Rate 102 H 99 H 99 H Pulse Rate [ From Monitor] Respiratory 30 H 30 H Rate Blood Pressure 134/74 116/68 116/68 O2 Sat by Pulse 99 100 99 Oximetry O2 Sat by Pulse Oximetry [ Anterior Bilateral Throughout] 11/07/18 11/07/18 11/07/18 12:15 12:30 12:31 Temperature Pulse Rate 98 H 101 H 101 H Pulse Rate [ From Monitor] Respiratory 30 H 30 H Rate Blood Pressure 116/68 126/76 126/76 O2 Sat by Pulse 99 Oximetry O2 Sat by Pulse Oximetry [ Anterior Bilateral Throughout] 11/07/18 11/07/18 11/07/18 12:45 13:00 13:01 Temperature Pulse Rate 101 H 100 H 100 H Pulse Rate [ From Monitor] Respiratory 30 H 30 H Rate Blood Pressure 126/76 127/77 127/77 O2 Sat by Pulse 99 Oximetry O2 Sat by Pulse Oximetry [ Anterior Bilateral Throughout] 11/07/18 11/07/18 11/07/18 13:15 13:30 13:45 Temperature Pulse Rate 100 H 100 H 101 H Pulse Rate [ From Monitor] Respiratory 28 H Rate Blood Pressure 127/77 140/80 147/84 O2 Sat by Pulse 100 Oximetry O2 Sat by Pulse Oximetry [ Anterior Bilateral Throughout] Constitutional: appears uncomfortable, other (middle aged AAM, normocephalic and atraumatic on MVS) Eyes: non-icteric ENT: oropharynx moist, other (ETT 25 cm FITO) Neck: supple, no lymphadenopathy, no JVD Effort: mildly labored Ascultation: Bilateral: diminished breath sounds, rhonchi Percussion: Bilateral: not dull Cardiovascular: regular rate and rhythm Gastrointestinal: normoactive bowel sounds, soft, non-tender, non-distended Integumentary: rash Extremities: no cyanosis, no edema, pulses normal, no ischemia or petechiae Neurologic: pupils equal and round (minimally reactive), unable to assess Psychiatric: other (unable to assess re: AMS) CBC and BMP: 11/08/18 04:23 11/08/18 04:23 ABG, PT/INR, D-dimer: ABG POC ABG pH 7.441 (7.35-7.45) 11/07/18 04:47 POC ABG pCO2 30.3 (35-45) L 11/07/18 04:47 POC ABG pO2 153 (80-105) H 11/07/18 04:47 POC ABG HCO3 20.6 (22-26 mml/L) 11/07/18 04:47 POC ABG Total CO2 22 (23-27mmol/L) 11/07/18 04:47 POC ABG O2 Sat 99 11/07/18 04:47 Abnormal lab findings: Abnormal Labs 11/06/18 11/06/18 11/06/18 08:22 09:02 09:02 WBC 20.1 H RBC 3.40 L Hgb 10.5 L Hct MCV 119 H MCHC 26 L RDW 15.7 H Lymph % (Auto) Lymph # Seg Neutrophils % 80.1 H Seg Neuts % (Manual) 76.0 H Lymphocytes % (Manual) 4.0 L Nucleated RBC % 1.0 H Seg Neutrophils # 16.1 H Seg Neutrophils # Man 15.3 H Lymphocytes # (Manual) 0.8 L POC ABG pH POC ABG pCO2 POC ABG pO2 VBG pH Sodium 129 L Potassium 7.7 H* Chloride 79.7 L Carbon Dioxide 4 L* BUN 93 H Creatinine 7.4 H Glucose 1469 H* POC Glucose > 500 H Lactic Acid Calcium Phosphorus Magnesium AST 2679 H ALT 1175 H C-Reactive Protein Total Protein 6.1 L Albumin 2.9 L Salicylates Acetaminophen 11/06/18 11/06/18 11/06/18 09:02 09:02 09:02 WBC RBC Hgb Hct MCV MCHC RDW Lymph % (Auto) Lymph # Seg Neutrophils % Seg Neuts % (Manual) Lymphocytes % (Manual) Nucleated RBC % Seg Neutrophils # Seg Neutrophils # Man Lymphocytes # (Manual) POC ABG pH POC ABG pCO2 POC ABG pO2 VBG pH Sodium Potassium Chloride Carbon Dioxide BUN Creatinine Glucose POC Glucose Lactic Acid 9.40 H* Calcium Phosphorus Magnesium AST ALT C-Reactive Protein Total Protein Albumin Salicylates < 0.3 L Acetaminophen < 5.0 L 11/06/18 11/06/18 11/06/18 09:03 10:19 10:19 WBC RBC Hgb Hct MCV MCHC RDW Lymph % (Auto) Lymph # Seg Neutrophils % Seg Neuts % (Manual) Lymphocytes % (Manual) Nucleated RBC % Seg Neutrophils # Seg Neutrophils # Man Lymphocytes # (Manual) POC ABG pH 6.841 L POC ABG pCO2 POC ABG pO2 VBG pH Sodium 131 L Potassium 8.9 H* Chloride 85.3 L Carbon Dioxide 6 L* BUN 90 H Creatinine 7.1 H Glucose 1353 H* POC Glucose Lactic Acid Calcium 7.8 L Phosphorus 14.50 H Magnesium 2.70 H AST ALT C-Reactive Protein Total Protein Albumin Salicylates Acetaminophen 11/06/18 11/06/18 11/06/18 12:07 13:22 13:22 WBC RBC Hgb Hct MCV MCHC RDW Lymph % (Auto) Lymph # Seg Neutrophils % Seg Neuts % (Manual) Lymphocytes % (Manual) Nucleated RBC % Seg Neutrophils # Seg Neutrophils # Man Lymphocytes # (Manual) POC ABG pH POC ABG pCO2 POC ABG pO2 VBG pH 6.982 L* Sodium 135 L Potassium 7.0 H* D Chloride 88.4 L Carbon Dioxide 5 L* BUN 89 H Creatinine 7.2 H Glucose 1326 H* POC Glucose Lactic Acid 8.50 H* Calcium Phosphorus Magnesium AST ALT C-Reactive Protein Total Protein Albumin Salicylates Acetaminophen 11/06/18 11/06/18 11/06/18 14:15 14:15 15:21 WBC RBC Hgb Hct MCV MCHC RDW Lymph % (Auto) Lymph # Seg Neutrophils % Seg Neuts % (Manual) Lymphocytes % (Manual) Nucleated RBC % Seg Neutrophils # Seg Neutrophils # Man Lymphocytes # (Manual) POC ABG pH POC ABG pCO2 POC ABG pO2 VBG pH Sodium Potassium 6.6 H* 6.0 H Chloride 95.3 L 93.3 L Carbon Dioxide 4 L* 6 L* BUN 83 H 91 H Creatinine 6.9 H 7.3 H Glucose 1205 H* 1174 H* POC Glucose Lactic Acid Calcium 8.2 L Phosphorus 13.00 H Magnesium 2.60 H AST ALT C-Reactive Protein Total Protein Albumin Salicylates Acetaminophen 11/06/18 11/06/18 11/06/18 15:21 16:14 16:33 WBC RBC Hgb Hct MCV MCHC RDW Lymph % (Auto) Lymph # Seg Neutrophils % Seg Neuts % (Manual) Lymphocytes % (Manual) Nucleated RBC % Seg Neutrophils # Seg Neutrophils # Man Lymphocytes # (Manual) POC ABG pH 7.004 L POC ABG pCO2 33.0 L POC ABG pO2 178 H VBG pH Sodium Potassium Chloride Carbon Dioxide BUN Creatinine Glucose POC Glucose > 500 H Lactic Acid 7.60 H* Calcium Phosphorus Magnesium AST ALT C-Reactive Protein Total Protein Albumin Salicylates Acetaminophen 11/06/18 11/06/18 11/06/18 17:34 19:30 19:30 WBC RBC Hgb Hct MCV MCHC RDW Lymph % (Auto) Lymph # Seg Neutrophils % Seg Neuts % (Manual) Lymphocytes % (Manual) Nucleated RBC % Seg Neutrophils # Seg Neutrophils # Man Lymphocytes # (Manual) POC ABG pH POC ABG pCO2 POC ABG pO2 VBG pH Sodium Potassium 5.5 H Chloride 97.4 L 97.7 L Carbon Dioxide 10 L 11 L BUN 88 H 87 H Creatinine 7.5 H 7.6 H Glucose 1054 H* 954 H* POC Glucose Lactic Acid Calcium 7.7 L 7.4 L Phosphorus Magnesium AST ALT C-Reactive Protein 1.90 H Total Protein Albumin Salicylates Acetaminophen 11/06/18 11/06/18 11/06/18 20:31 20:40 20:40 WBC RBC Hgb Hct MCV MCHC RDW Lymph % (Auto) Lymph # Seg Neutrophils % Seg Neuts % (Manual) Lymphocytes % (Manual) Nucleated RBC % Seg Neutrophils # Seg Neutrophils # Man Lymphocytes # (Manual) POC ABG pH 7.245 L POC ABG pCO2 POC ABG pO2 132 H VBG pH Sodium Potassium Chloride Carbon Dioxide BUN Creatinine Glucose 907 H* POC Glucose Lactic Acid 4.40 H* Calcium Phosphorus Magnesium AST ALT C-Reactive Protein Total Protein Albumin Salicylates Acetaminophen 11/06/18 11/06/18 11/06/18 22:05 22:40 23:35 WBC RBC Hgb Hct MCV MCHC RDW Lymph % (Auto) Lymph # Seg Neutrophils % Seg Neuts % (Manual) Lymphocytes % (Manual) Nucleated RBC % Seg Neutrophils # Seg Neutrophils # Man Lymphocytes # (Manual) POC ABG pH POC ABG pCO2 POC ABG pO2 VBG pH Sodium Potassium Chloride Carbon Dioxide 13 L BUN 86 H Creatinine 7.8 H Glucose 822 H* 726 H* POC Glucose Lactic Acid 3.40 H* Calcium 7.5 L Phosphorus Magnesium AST ALT C-Reactive Protein Total Protein Albumin Salicylates Acetaminophen 11/07/18 11/07/18 11/07/18 01:25 01:26 03:15 WBC RBC Hgb Hct MCV MCHC RDW Lymph % (Auto) Lymph # Seg Neutrophils % Seg Neuts % (Manual) Lymphocytes % (Manual) Nucleated RBC % Seg Neutrophils # Seg Neutrophils # Man Lymphocytes # (Manual) POC ABG pH POC ABG pCO2 POC ABG pO2 VBG pH Sodium Potassium Chloride Carbon Dioxide BUN Creatinine Glucose 602 H* POC Glucose > 500 H > 500 H Lactic Acid Calcium Phosphorus Magnesium AST ALT C-Reactive Protein Total Protein Albumin Salicylates Acetaminophen 11/07/18 11/07/18 11/07/18 03:20 04:32 04:47 WBC RBC Hgb Hct MCV MCHC RDW Lymph % (Auto) Lymph # Seg Neutrophils % Seg Neuts % (Manual) Lymphocytes % (Manual) Nucleated RBC % Seg Neutrophils # Seg Neutrophils # Man Lymphocytes # (Manual) POC ABG pH POC ABG pCO2 30.3 L POC ABG pO2 153 H VBG pH Sodium 149 H Potassium Chloride Carbon Dioxide 16 L BUN 86 H Creatinine 8.3 H Glucose 499.2 H POC Glucose 360 H Lactic Acid Calcium 7.6 L Phosphorus Magnesium AST ALT C-Reactive Protein Total Protein Albumin Salicylates Acetaminophen 11/07/18 11/07/18 11/07/18 05:26 06:35 06:36 WBC RBC Hgb Hct MCV MCHC RDW Lymph % (Auto) Lymph # Seg Neutrophils % Seg Neuts % (Manual) Lymphocytes % (Manual) Nucleated RBC % Seg Neutrophils # Seg Neutrophils # Man Lymphocytes # (Manual) POC ABG pH POC ABG pCO2 POC ABG pO2 VBG pH Sodium 153 H Potassium 3.2 L Chloride 109.7 H Carbon Dioxide BUN 84 H Creatinine 8.6 H Glucose 249 H POC Glucose 341 H 274 H Lactic Acid Calcium 7.6 L Phosphorus Magnesium AST ALT C-Reactive Protein Total Protein Albumin Salicylates Acetaminophen 11/07/18 11/07/18 11/07/18 07:33 09:00 09:52 WBC RBC Hgb Hct MCV MCHC RDW Lymph % (Auto) Lymph # Seg Neutrophils % Seg Neuts % (Manual) Lymphocytes % (Manual) Nucleated RBC % Seg Neutrophils # Seg Neutrophils # Man Lymphocytes # (Manual) POC ABG pH POC ABG pCO2 POC ABG pO2 VBG pH Sodium Potassium Chloride Carbon Dioxide BUN Creatinine Glucose POC Glucose 243 H 182 H 227 H Lactic Acid Calcium Phosphorus Magnesium AST ALT C-Reactive Protein Total Protein Albumin Salicylates Acetaminophen 11/07/18 11/07/18 11/07/18 10:50 10:50 10:50 WBC 11.3 H RBC 2.85 L Hgb 8.7 L Hct 25.3 L D MCV MCHC RDW Lymph % (Auto) 9.7 L Lymph # 1.1 L Seg Neutrophils % 83.3 H Seg Neuts % (Manual) Lymphocytes % (Manual) Nucleated RBC % Seg Neutrophils # 9.4 H Seg Neutrophils # Man Lymphocytes # (Manual) POC ABG pH POC ABG pCO2 POC ABG pO2 VBG pH Sodium 154 H Potassium 3.2 L Chloride 110.2 H Carbon Dioxide BUN 82 H Creatinine 8.3 H Glucose 186 H POC Glucose 200 H Lactic Acid Calcium 7.3 L Phosphorus Magnesium AST ALT C-Reactive Protein Total Protein Albumin Salicylates Acetaminophen 11/07/18 11/07/18 11/07/18 12:00 12:05 13:13 WBC RBC Hgb Hct MCV MCHC RDW Lymph % (Auto) Lymph # Seg Neutrophils % Seg Neuts % (Manual) Lymphocytes % (Manual) Nucleated RBC % Seg Neutrophils # Seg Neutrophils # Man Lymphocytes # (Manual) POC ABG pH POC ABG pCO2 POC ABG pO2 VBG pH Sodium Potassium Chloride Carbon Dioxide BUN Creatinine Glucose POC Glucose 179 H 190 H Lactic Acid 2.50 H* Calcium Phosphorus Magnesium AST ALT C-Reactive Protein Total Protein Albumin Salicylates Acetaminophen 11/07/18 13:20 WBC RBC Hgb Hct MCV MCHC RDW Lymph % (Auto) Lymph # Seg Neutrophils % Seg Neuts % (Manual) Lymphocytes % (Manual) Nucleated RBC % Seg Neutrophils # Seg Neutrophils # Man Lymphocytes # (Manual) POC ABG pH POC ABG pCO2 POC ABG pO2 VBG pH Sodium Potassium 3.1 L Chloride Carbon Dioxide BUN 50 H Creatinine 5.0 H Glucose 176 H POC Glucose Lactic Acid Calcium 7.4 L Phosphorus Magnesium AST ALT C-Reactive Protein Total Protein Albumin Salicylates Acetaminophen Chest x-ray: image reviewed (ETT in better position after advancement; no new infiltrates otherwise)
[2018-11-07] MEDS ORDERED: D50W (25GM) Syringe IV PRN (16:46)
[2018-11-07] MEDS: HumuLIN R SUB-Q SCH (18:13)
[2018-11-07] MEDS: THORAZINE PO PRN (22:00)
[2018-11-08] MEDS: HumuLIN R SUB-Q SCH ×5 (00:48→23:33)
[2018-11-08] MEDS: D5W/0.45% NACL/KCL 20 MEQ 20 MEQ/1,000 ML BAG IV SCH (01:27)
[2018-11-08] MEDS: APRESOLINE IV PRN (01:35)
--- NOTE | 2018-11-08 04:32 | XRay Report ---
PROCEDURE: XR CHEST 1V AP TECHNIQUE: Chest radiograph single view. HISTORY: follow up respiratory failure COMPARISONS: November 07, 2018 . FINDINGS: Heart: Normal. Mediastinum/Vessels: Normal. Lungs/Pleural space: Lungs are expanded. There are no infiltrates, effusions or pneumothoraces.. Bony thorax: No acute osseous abnormality. Life support devices: The endotracheal tube is in the mid trachea. NG tube is in the stomach.. IMPRESSION: The heart size is normal.. Lungs are expanded. There are no infiltrates, effusions or pneumothoraces.. The endotracheal tube is in the mid trachea. NG tube is in the stomach.. This document is electronically signed by Jonathan Fuchs MD., November 08 2018 05:30:44 AM ET
[2018-11-08 05:35] LABS: Basophils % (Auto) 0.2 % (0.0-1.8); Eosinophils % (Auto) 0.1 % (0.0-4.3); Hematocrit 26.7 % (35.5-45.6); Hemoglobin 9.3 gm/dl (11.8-15.2); Lymphocytes # (Auto) 1.4 K/mm3 (1.2-5.4); Lymphocytes % (Auto) 14.6 % (13.4-35.0); Mean Corpuscular HGB Conc 35 % (32-34); Mean Corpuscular Volume 90 fl (84-94); Monocytes # (Auto) 0.5 K/mm3 (0.0-0.8); Monocytes % (Auto) 4.8 % (0.0-7.3); Platelet Count 130 K/mm3 (140-440); Red Blood Count 2.98 M/mm3 (3.65-5.03); Red Cell Distribution Width 14.3 % (13.2-15.2)
[2018-11-08] MEDS: ZOSYN/NS 2.25 GM/50ML 2.25 GM/50 ML BAG IV SCH ×3 (06:04→21:12)
[2018-11-08] MEDS: THORAZINE PO PRN ×2 (06:05→21:59)
[2018-11-08 06:08] LABS: Calcium 7.3 mg/dL (8.4-10.2)
[2018-11-08] MEDS ORDERED: NACL 0.9% 1000 ML 1,000 ML IV SCH (08:00)
[2018-11-08] MEDS: PROTONIX IV SCH ×2 (08:23→20:55)
[2018-11-08] MEDS: KCL 10MEQ/100ML 10 MEQ/100 ML BAG IV SCH ×4 (08:26→11:35)
[2018-11-08 09:02] LABS: Albumin 2.6 g/dL (3.9-5); Bilirubin,Direct 0.3 mg/dL (0-0.2)
[2018-11-08] MEDS: SODIUM CHLORIDE FLUSH SYRINGE 10 ML IV SCH ×2 (09:39→21:18)
[2018-11-08] MEDS: KEPPRA 1,000 MG/NS 0.75% 100ML 1,000 MG/100 ML BAG IV SCH (09:39)
--- NOTE | 2018-11-08 10:06 | Progress Note ---
Assessment and Plan Acute Kidney Injury secondary to ischemic ATN from hypotension, cardiac arrest, in setting of underlying hx CKD 4: Severe Renal Failure, requiring hemodialysis initiation: S/P High Anion Gap Metabolic Acidosis with elevated lactic acidosis with DKA: S/P Hyperkalemia: S/P Hyperphosphatemia: Hypokalemia: - Renal function reviewed, SCr level is 6.3 today, yesterday was 8.6. S/P first hemodialysis treatment yesterday - We will hemodialyze patient tomorrow for gentle UF and clearance using his Left AVF (using 17 gauge needles) - Hypokalemia- receiving KCl 10 meq IV x 4 bags. - CXR today-Lungs are expanded. No infiltrates or effusions. - Renally dose medications - Salgado Catheter: Yes - Obtain daily weights - Monitor I/O's- UOP 975 ml recorded - Assess dialysis needs daily - Renal plan reviewed Dr. Marti S/p Cardiopulmonary arrest. STEMI: -S/P CPR and ACLS protocol -Now off pressor support -Cardiology on board 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 per neurology -On IV Keppra -As per Neurology Subjective Date of service: 11/08/18 Principal diagnosis: CKD, DKA Interval history: Patient seen lying in bed, intubated and unresponsive. No family at bedside. Objective - Vital Signs Vital signs: Vital Signs - 12hr 11/07/18 11/07/18 11/07/18 22:31 22:59 23:01 Temperature Pulse Rate 96 H 96 H 104 H Pulse Rate [ From Monitor] Respiratory 19 19 Rate Blood Pressure 179/92 158/86 186/99 O2 Sat by Pulse 100 100 97 Oximetry 11/07/18 11/07/18 11/07/18 23:05 23:31 23:47 Temperature 99.5 F Pulse Rate 104 H 100 H Pulse Rate [ From Monitor] Respiratory 17 20 Rate Blood Pressure 186/99 182/92 O2 Sat by Pulse 100 97 Oximetry 11/08/18 11/08/18 11/08/18 00:00 00:01 00:31 Temperature Pulse Rate 99 H 99 H Pulse Rate [ 99 H From Monitor] Respiratory 20 20 19 Rate Blood Pressure 154/87 182/92 O2 Sat by Pulse 97 97 96 Oximetry 11/08/18 11/08/18 11/08/18 01:01 01:31 01:35 Temperature Pulse Rate 96 H 96 H 105 H Pulse Rate [ From Monitor] Respiratory 20 17 Rate Blood Pressure 175/98 181/103 181/103 O2 Sat by Pulse 98 99 Oximetry 11/08/18 11/08/18 11/08/18 02:01 02:31 03:01 Temperature Pulse Rate 100 H 100 H 98 H Pulse Rate [ From Monitor] Respiratory 18 19 17 Rate Blood Pressure 178/96 159/94 168/94 O2 Sat by Pulse 99 97 98 Oximetry 11/08/18 11/08/18 11/08/18 03:06 03:31 03:38 Temperature 100.3 F H Pulse Rate 100 H 103 H Pulse Rate [ From Monitor] Respiratory 20 Rate Blood Pressure 168/94 171/91 O2 Sat by Pulse 100 96 Oximetry 11/08/18 11/08/18 11/08/18 04:00 04:01 04:31 Temperature Pulse Rate 104 H 100 H Pulse Rate [ 104 H From Monitor] Respiratory 20 20 20 Rate Blood Pressure 166/95 160/95 O2 Sat by Pulse 96 96 96 Oximetry 11/08/18 11/08/18 11/08/18 05:01 05:31 06:01 Temperature Pulse Rate 100 H 99 H 98 H Pulse Rate [ From Monitor] Respiratory 20 20 20 Rate Blood Pressure 153/93 176/89 181/98 O2 Sat by Pulse 97 98 98 Oximetry 11/08/18 11/08/18 11/08/18 06:31 07:01 07:31 Temperature Pulse Rate 96 H 96 H 102 H Pulse Rate [ From Monitor] Respiratory 18 18 20 Rate Blood Pressure 184/101 175/100 178/101 O2 Sat by Pulse 99 98 97 Oximetry 11/08/18 11/08/18 11/08/18 08:00 08:01 08:31 Temperature 100.3 F H Pulse Rate 101 H 102 H 100 H Pulse Rate [ From Monitor] Respiratory 20 20 Rate Blood Pressure 145/85 160/89 160/89 O2 Sat by Pulse 100 95 99 Oximetry 11/08/18 09:01 Temperature Pulse Rate 98 H Pulse Rate [ From Monitor] Respiratory 20 Rate Blood Pressure 145/85 O2 Sat by Pulse 96 Oximetry - General Appearance General appearance: sedated on ventilator, intubated EENT: ATNC Neck: no JVD, supple Respiratory: Present: Decreased Breath Sounds, Other (intubated) Cardiology: tachycardia, S1S2 Gastrointestinal: normoactive bowel sounds Integumentary: warm and dry Neurologic: other (Sedated and intubated) Musculoskeletal: other (has mild non-pitting edema to BLE) - Lab 11/08/18 04:23 11/08/18 04:23 Most recent lab results Calcium 7.3 mg/dL (8.4-10.2) L 11/08/18 04:23 Phosphorus 2.50 mg/dL (2.5-4.5) 11/08/18 04:23 Magnesium 2.60 mg/dL (1.7-2.3) H 11/06/18 14:15 Medications & Allergies - Medications Allergies/Adverse Reactions: Allergies No Known Allergies Allergy (Verified 03/17/18 11:54) Home Medications: Home Medications Medication Instructions Recorded Confirmed Last Taken Type Esomeprazole Magnesium [NexIUM] 20 mg PO QDAY #30 suspdr.pkt 03/17/18 11/07/18 Unknown Rx HYDROcodone/APAP 5-325 [[place] 1 each PO Q6HR PRN #15 tablet 03/17/18 11/07/18 Unknown Rx 5/325] Metoclopramide [Reglan] 10 mg PO TID #21 tab 03/17/18 11/07/18 Unknown Rx Ondansetron [Zofran Odt] 4 mg PO Q4HR PRN #20 tab.rapdis 03/17/18 11/07/18 Unknown Rx Active Medications: Generic Name Dose Route Start Last Admin Trade Name Freq PRN Reason Stop Dose Admin Acetaminophen 650 mg 11/06/18 22:22 11/06/18 22:33 Tylenol FEEDTUBE 650 mg Q6H PRN Administration Fever >101 Chlorpromazine HCl 10 mg 11/07/18 08:07 11/08/18 06:05 Thorazine PO 10 mg Q6H PRN Administration Hiccups Dextrose 50 ml 11/07/18 16:46 D50w (25gm) Syringe IV PRN PRN Hypoglycemia Fentanyl 50 mcg 11/06/18 08:37 Sublimaze IV Q10MIN PRN ANALGESIA Hydralazine HCl 10 mg 11/08/18 00:56 11/08/18 01:35 Apresoline IV 10 mg Q4H PRN Administration Hypertension Hydrophilic Ointment 1 applic 11/06/18 08:26 Vaseline Lip Therapy TP Q2HR PRN Dry Lips Fentanyl Citrate 2,000 mcg in 100 mls @ 4.309 mls/hr 11/06/18 10:00 11/07/18 14:14 Fentanyl Drip Premix IV 1 mcg/kg/hr TITR MARIAJOSE 4.309 mls/hr Administration Protocol 1 MCG/KG/HR Epinephrine 8 mg/ Sodium 250 mls @ 3.75 mls/hr 11/06/18 10:00 11/06/18 23:49 Chloride IV 11/09/18 04:39 0 mcg/min TITR ONE 0 mls/hr Titration Protocol 2 MCG/MIN Norepinephrine 4 mg in 250 mls @ 7.5 mls/hr 11/06/18 16:00 11/07/18 05:50 Levophed Drip 4 Mg/Ns 250 Ml IV 0 mcg/min TITR MARIAJOSE 0 mls/hr Titration Protocol 2 MCG/MIN Levetiracetam 1,000 mg in 100 mls @ 400 mls/hr 11/06/18 18:00 11/08/18 09:39 Keppra 1,000 Mg/Ns 0.75% 100ml IV 400 mls/hr Q24HR MARIAJOSE Administration Sodium Bicarbonate 150 meq/ 1,150 mls @ 150 mls/hr 11/06/18 20:00 11/07/18 14:15 Sterile Water IV 11/09/18 03:39 150 mls/hr DIRECT MARIAJOSE Administration Piperacillin Sod/Tazobactam Sod 2.25 gm in 50 mls @ 100 mls/hr 11/06/18 22:00 11/08/18 06:04 Zosyn/Ns 2.25 Gm/50ml IV 100 mls/hr Q8HR MARIAJOSE Administration Protocol Potassium Chloride 10 meq in 100 mls @ 100 mls/hr 11/08/18 08:00 11/08/18 09:38 Kcl 10meq/100ml IV 11/08/18 11:59 100 mls/hr Q1H MARIAJOSE Administration Sodium Chloride 1,000 mls @ 75 mls/hr 11/08/18 08:00 11/08/18 08:27 Nacl 0.9% 1000 Ml IV 75 mls/hr DIRECT MARIAJOSE Administration Insulin Human Isoph/Insulin Regular 20 unit 11/07/18 18:00 11/08/18 08:23 Humulin 70/30 SUB-Q 20 unit BIDDIAB MARIAJOSE Administration Insulin Human Regular 0 units 11/07/18 18:00 11/08/18 06:04 Humulin R SUB-Q 4 units Q6HR MARIAJOSE Administration Protocol Multi-Ingred Cream/Lotion/Oil/Oint 1 applic 11/06/18 08:26 Artificial Tears Ophth Oint OU Q4HR PRN Dry Eye(s) Pantoprazole Sodium 40 mg 11/06/18 20:00 11/08/18 08:23 Protonix IV 40 mg Q12H MARIAJOSE Administration Sodium Chloride 10 ml 11/06/18 22:00 11/08/18 09:39 Sodium Chloride Flush Syringe 10 Ml IV 10 ml BID MARIAJOSE Administration Sodium Chloride 10 ml 11/06/18 12:42 Sodium Chloride Flush Syringe 10 Ml IV PRN PRN LINE FLUSH
--- NOTE | 2018-11-08 12:20 | Progress Note ---
Assessment and Plan 42yo AAM: 1. s/p cardiopulmonary arrest * likely multi-factorial * acute and severe electrolyte disturbance * volume overload * unlikely primary cardiac event * hypotension/sinus tachycardia * on pressors 2. DKA/severe metabolic acidemia 3. Prob anoxic brain injury * neurology following 4. Anemia 5. esrd on hd 6. pad 7. tobacco abuse 8. shock liver 9. 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 underway * hold heparin products optimize bg/lytes - per primary and icu team tte pending wean pressors poor prognosis will follow - Patient Problems (1) ARF (acute renal failure) with tubular necrosis Current Visit: Yes Status: Acute (2) Anoxic brain injury Current Visit: Yes Status: Acute (3) Cardiac arrest Current Visit: Yes Status: Acute (4) DKA (diabetic ketoacidoses) Current Visit: Yes Status: Acute Qualifiers: Diabetes mellitus type: type 2 Diabetes mellitus complication detail: with coma Qualified Code(s): E11.11 - Type 2 diabetes mellitus with ketoacidosis with coma (5) ESRD (end stage renal disease) on dialysis Current Visit: Yes Status: Acute (6) Hypotension Current Visit: Yes Status: Acute Qualifiers: Hypotension type: unspecified hypotension type Qualified Code(s): I95.9 - Hypotension, unspecified (7) Metabolic acidosis Current Visit: Yes Status: Acute (8) Unresponsive Current Visit: Yes Status: Acute Subjective Principal diagnosis: CKD, DKA Interval history: intubated, nonresponsive >30 min spent in the care of this critically ill pt. Objective Vital Signs Temp Pulse Pulse Resp BP Pulse Ox Pulse Ox 11/08/18 10:31 98 H 20 153/91 100 11/08/18 10:00 102 H 20 153/91 97 11/08/18 09:31 107 H 20 145/85 99 11/08/18 09:01 98 H 20 145/85 96 11/08/18 08:31 100 H 20 160/89 99 11/08/18 08:01 102 H 20 160/89 95 11/08/18 08:00 100.3 F H 101 H 145/85 100 11/08/18 07:31 102 H 20 178/101 97 11/08/18 07:01 96 H 18 175/100 98 11/08/18 06:31 96 H 18 184/101 99 11/08/18 06:01 98 H 20 181/98 98 11/08/18 05:31 99 H 20 176/89 98 11/08/18 05:01 100 H 20 153/93 97 11/08/18 04:31 100 H 20 160/95 96 11/08/18 04:01 104 H 20 166/95 96 11/08/18 04:00 104 H 20 96 11/08/18 03:38 100.3 F H 11/08/18 03:31 103 H 20 171/91 96 11/08/18 03:06 100 H 168/94 100 11/08/18 03:01 98 H 17 168/94 98 11/08/18 02:31 100 H 19 159/94 97 11/08/18 02:01 100 H 18 178/96 99 11/08/18 01:35 105 H 181/103 11/08/18 01:31 96 H 17 181/103 99 11/08/18 01:01 96 H 20 175/98 98 11/08/18 00:31 99 H 19 182/92 96 11/08/18 00:01 99 H 20 154/87 97 11/08/18 00:00 99 H 20 97 11/07/18 23:47 99.5 F 11/07/18 23:31 100 H 20 182/92 97 11/07/18 23:05 104 H 17 186/99 100 11/07/18 23:01 104 H 19 186/99 97 11/07/18 22:59 96 H 158/86 100 11/07/18 22:31 96 H 19 179/92 100 11/07/18 22:01 99 H 17 177/96 97 11/07/18 22:00 96 H 11/07/18 21:31 100 H 18 174/95 97 11/07/18 21:01 99 H 19 169/93 97 11/07/18 20:30 99 H 20 180/89 100 11/07/18 20:01 100 H 17 158/86 11/07/18 20:00 99.4 F 100 H 97 11/07/18 19:55 97 H 158/86 100 11/07/18 19:31 98 H 16 154/84 98 11/07/18 19:01 97 H 17 160/83 97 11/07/18 18:31 98 H 16 159/91 98 11/07/18 18:01 100 H 19 142/78 98 11/07/18 17:45 97 H 22 146/83 100 11/07/18 17:31 103 H 17 145/83 100 11/07/18 17:15 99 H 17 140/80 99 11/07/18 17:01 98 H 20 132/72 97 11/07/18 16:46 101 H 20 145/80 98 11/07/18 16:31 102 H 20 145/80 98 11/07/18 16:15 102 H 20 147/80 100 11/07/18 16:01 100 H 20 131/76 11/07/18 16:00 98.8 F 100 11/07/18 15:45 98 H 22 140/83 11/07/18 15:35 99 H 134/78 100 11/07/18 15:31 99 H 19 134/78 98 11/07/18 15:15 101 H 21 140/83 100 11/07/18 15:07 100.0 F H 102 H 28 H 145/81 100 11/07/18 15:01 105 H 18 140/83 100 11/07/18 14:45 102 H 31 H 142/79 100 11/07/18 14:31 103 H 30 H 142/79 99 11/07/18 14:15 103 H 30 H 136/80 100 11/07/18 14:01 102 H 30 H 136/80 100 11/07/18 14:00 101 H 136/80 11/07/18 13:45 102 H 30 H 140/80 100 11/07/18 13:31 100 H 28 H 140/80 100 11/07/18 13:30 100 H 140/80 11/07/18 13:15 100 H 28 H 127/77 100 11/07/18 13:01 100 H 30 H 127/77 99 11/07/18 13:00 100 H 127/77 11/07/18 12:45 101 H 30 H 126/76 11/07/18 12:31 101 H 30 H 126/76 99 11/07/18 12:30 101 H 126/76 11/07/18 12:15 98 H 30 H 116/68 - Physical Examination HEENT: Positive: Other (patient is intubated. Not responsive. Not on any IV sedation. Pupils are fixed and dilated.) Abdomen: Positive: Unremarkable, Soft, Active Bowel Sounds Extremities: Present: Cool. Absent: edema - Labs and Meds Cardiac Enzymes 11/08/18 Range/Units 08:00 AST 932 H (5-40) units/L CBC 11/08/18 Range/Units 04:23 WBC 9.8 (4.5-11.0) K/mm3 RBC 2.98 L (3.65-5.03) M/mm3 Hgb 9.3 L (11.8-15.2) gm/dl Hct 26.7 L (35.5-45.6) % Plt Count 130 L (140-440) K/mm3 Lymph # 1.4 (1.2-5.4) K/mm3 [place] # 0.5 (0.0-0.8) K/mm3 Eos # 0.0 (0.0-0.4) K/mm3 Baso # 0.0 (0.0-0.1) K/mm3 Comprehensive Metabolic Panel 11/07/18 11/08/18 11/08/18 Range/Units 13:20 04:23 08:00 Sodium 143 D 144 (137-145) mmol/L Potassium 3.1 L 3.0 L (3.6-5.0) mmol/L Chloride 103.1 102.2 (98-107) mmol/L Carbon Dioxide 26 26 (22-30) mmol/L BUN 50 H 44 H (9-20) mg/dL Creatinine 5.0 H 6.3 H (0.8-1.5) mg/dL Glucose 176 H 245 H (75-100) mg/dL Calcium 7.4 L 7.3 L (8.4-10.2) mg/dL Direct Bilirubin 0.3 H (0-0.2) mg/dL Indirect Bilirubin 0.3 mg/dL AST 932 H (5-40) units/L ALT 582 H (7-56) units/L Alkaline Phosphatase 104 (35-129) units/L Total Protein 5.4 L (6.3-8.2) g/dL Albumin 2.6 L (3.9-5) g/dL - EKG Sinus rhythms and dysrhythmias: sinus arrest or pause Ventricular dysrhythmias: idioventricular escape rh AV and intraventricular conduction: intraventricular conducti Repolarization changes or abnormalities: Suggestive of hyperkalemia (wide QRS complexes and ST depression evaluation probably all due to severe hyperkalemia. The last EKG does not show any ST elevation but continues to show peaked T waves.)
[2018-11-08] MEDS: fentaNYL DRIP Premix 2,000 MCG/100 ML BAG IV SCH ×2 (13:42→21:59)
[2018-11-08] MEDS ORDERED: HEPARIN SUB-Q SCH (14:00)
--- NOTE | 2018-11-08 16:18 | Progress Note ---
Assessment and Plan Acute hypoxemic respiratory failure, on mechanical ventilator support. Diabetic ketoacidosis. Severe metabolic acidosis. Severe sepsis with shock. Acute encephalopathy that appears to be toxic metabolic. End-stage renal disease, on dialysis. Hyperkalemia at presentation. Diabetes. Peripheral vascular disease. Anemia that is macrocytic. Elevated serum transaminases, likely representing shock liver. Mild hyponatremia, pseudohyponatremia actually. Lactic acidosis. (AMS is currently a rate limiting factor to safe extubation and he will likely need a tracheostomy) - continue daily SAT's and SBT assessment in am as tolerated - prn sedation target for RASS 0 to -1 - wean off vasopressors for MAP > 65 mmHg (off now) - continue to wean supplemental oxygen to keep O2 sats > 90% - continue empiric AB's for now (de-escalate based on clinical and radiologic data) - continue bronchodilators with pulmonary hygiene per RT - Lung protective strategies - VAP bundle addressed - HD/UF as tolerated for toxin and volume clearance - neurology evaluation ongoing - Monitor renal indices closely - continue to avoid nephrotoxic agents, adjust all medications for CrCL - Strict intake and output monitoring - continue enteral nutrition as tolerated - continue accuchecks with glycemic control per SSI for target glucose of 140- 180 mg/dL - Maintenance of sleep -wake cycle - Mobility protocol for pressure ulcer prophylaxis - continue GI & VTE prophylaxis - Influenza and pneumonia vaccination per protocol PROGNOSIS: GUARDED CONDITION: CRITICAL CODE STATUS: FULL CODE The high probability of a clinically significant, sudden or life-threatening deterioration of the [respiratory, neurology, renal] system(s) required my full and direct attention, intervention and personal management. The aggregate critical care time was [31] minutes without overlap. Time includes spent on; [x] Data Review and interpretation [x] Patient assessment and monitoring of vital signs [x] Documentation [x] Medication orders and management Subjective Date of service: 11/08/18 Principal diagnosis: Ac hypoxemic resp failure; DKA; Severe sepsis with shock; ESRD on dialysis Interval history: Patient is seen today for: Acute hypoxemic respiratory failure on MVS; DKA; Ayah re metabolic acidosis; Severe sepsis with shock; Acute encephalopathy that appears to be toxic metabolic; ESRD on dialysis; DM II; Peripheral vascular disease. Seen and examined at bedside; 24hour events reviewed; nursing and respiratory care staff consulted; no adverse overnight events reported to me; remains on MVS; AMS is persistent; with intermittent myoclonic type jerks; no emesis or overt aspiration. Objective Vital Signs - 12hr 11/08/18 11/08/18 11/08/18 04:31 05:01 05:31 Temperature Pulse Rate 100 H 100 H 99 H Respiratory 20 20 20 Rate Blood Pressure 160/95 153/93 176/89 O2 Sat by Pulse 96 97 98 Oximetry 11/08/18 11/08/18 11/08/18 06:01 06:31 07:01 Temperature Pulse Rate 98 H 96 H 96 H Respiratory 20 18 18 Rate Blood Pressure 181/98 184/101 175/100 O2 Sat by Pulse 98 99 98 Oximetry 11/08/18 11/08/18 11/08/18 07:31 08:00 08:01 Temperature 100.3 F H Pulse Rate 102 H 101 H 102 H Respiratory 20 20 Rate Blood Pressure 178/101 145/85 160/89 O2 Sat by Pulse 97 100 95 Oximetry 11/08/18 11/08/18 11/08/18 08:31 09:01 09:31 Temperature Pulse Rate 100 H 98 H 107 H Respiratory 20 20 20 Rate Blood Pressure 160/89 145/85 145/85 O2 Sat by Pulse 99 96 99 Oximetry 11/08/18 11/08/18 11/08/18 10:00 10:31 11:01 Temperature Pulse Rate 102 H 98 H 96 H Respiratory 20 20 20 Rate Blood Pressure 153/91 153/91 153/91 O2 Sat by Pulse 97 100 100 Oximetry 11/08/18 11/08/18 11/08/18 11:31 12:00 12:01 Temperature 99.1 F Pulse Rate 96 H 98 H Respiratory 20 16 Rate Blood Pressure 154/89 163/92 O2 Sat by Pulse 100 97 98 Oximetry 11/08/18 11/08/18 11/08/18 12:24 12:30 12:31 Temperature Pulse Rate 96 H 95 H 95 H Respiratory 22 19 Rate Blood Pressure 160/87 163/58 160/87 O2 Sat by Pulse 100 100 100 Oximetry 11/08/18 11/08/18 11/08/18 13:01 13:31 15:57 Temperature 100.6 F H Pulse Rate 96 H 96 H Respiratory 17 18 Rate Blood Pressure 160/83 160/83 O2 Sat by Pulse 98 100 Oximetry Constitutional: appears uncomfortable, other (middle aged AAM, normocephalic and atraumatic on MVS) Eyes: non-icteric ENT: oropharynx moist, other (ETT 25 cm FITO) Neck: supple, no lymphadenopathy, no JVD Effort: mildly labored Ascultation: Bilateral: diminished breath sounds, rhonchi Percussion: Bilateral: not dull Cardiovascular: regular rate and rhythm Gastrointestinal: normoactive bowel sounds, soft, non-tender, non-distended Integumentary: rash Extremities: no cyanosis, no edema, pulses normal, no ischemia or petechiae Neurologic: pupils equal and round (minimally reactive), unable to assess, other (intermittent myoclonic type jerks) Psychiatric: other (unable to assess re: AMS) CBC and BMP: 11/09/18 06:02 11/09/18 06:02 ABG, PT/INR, D-dimer: ABG POC ABG pH 7.520 (7.35-7.45) H 11/08/18 04:17 POC ABG pCO2 36.2 (35-45) 11/08/18 04:17 POC ABG pO2 111 (80-105) H 11/08/18 04:17 POC ABG HCO3 29.6 (22-26 mml/L) 11/08/18 04:17 POC ABG Total CO2 31 (23-27mmol/L) 11/08/18 04:17 POC ABG O2 Sat 99 11/08/18 04:17 Abnormal lab findings: Abnormal Labs 11/06/18 11/06/18 11/06/18 08:22 09:02 09:02 WBC 20.1 H RBC 3.40 L Hgb 10.5 L Hct MCV 119 H MCHC 26 L RDW 15.7 H Plt Count Lymph % (Auto) Lymph # Seg Neutrophils % 80.1 H Seg Neuts % (Manual) 76.0 H Lymphocytes % (Manual) 4.0 L Nucleated RBC % 1.0 H Seg Neutrophils # 16.1 H Seg Neutrophils # Man 15.3 H Lymphocytes # (Manual) 0.8 L POC ABG pH POC ABG pCO2 POC ABG pO2 VBG pH Sodium 129 L Potassium 7.7 H* Chloride 79.7 L Carbon Dioxide 4 L* BUN 93 H Creatinine 7.4 H Glucose 1469 H* POC Glucose > 500 H Lactic Acid Calcium Phosphorus Magnesium Direct Bilirubin AST 2679 H ALT 1175 H C-Reactive Protein Total Protein 6.1 L Albumin 2.9 L Salicylates Acetaminophen 11/06/18 11/06/18 11/06/18 09:02 09:02 09:02 WBC RBC Hgb Hct MCV MCHC RDW Plt Count Lymph % (Auto) Lymph # Seg Neutrophils % Seg Neuts % (Manual) Lymphocytes % (Manual) Nucleated RBC % Seg Neutrophils # Seg Neutrophils # Man Lymphocytes # (Manual) POC ABG pH POC ABG pCO2 POC ABG pO2 VBG pH Sodium Potassium Chloride Carbon Dioxide BUN Creatinine Glucose POC Glucose Lactic Acid 9.40 H* Calcium Phosphorus Magnesium Direct Bilirubin AST ALT C-Reactive Protein Total Protein Albumin Salicylates < 0.3 L Acetaminophen < 5.0 L 11/06/18 11/06/18 11/06/18 09:03 10:19 10:19 WBC RBC Hgb Hct MCV MCHC RDW Plt Count Lymph % (Auto) Lymph # Seg Neutrophils % Seg Neuts % (Manual) Lymphocytes % (Manual) Nucleated RBC % Seg Neutrophils # Seg Neutrophils # Man Lymphocytes # (Manual) POC ABG pH 6.841 L POC ABG pCO2 POC ABG pO2 VBG pH Sodium 131 L Potassium 8.9 H* Chloride 85.3 L Carbon Dioxide 6 L* BUN 90 H Creatinine 7.1 H Glucose 1353 H* POC Glucose Lactic Acid Calcium 7.8 L Phosphorus 14.50 H Magnesium 2.70 H Direct Bilirubin AST ALT C-Reactive Protein Total Protein Albumin Salicylates Acetaminophen 11/06/18 11/06/18 11/06/18 12:07 13:22 13:22 WBC RBC Hgb Hct MCV MCHC RDW Plt Count Lymph % (Auto) Lymph # Seg Neutrophils % Seg Neuts % (Manual) Lymphocytes % (Manual) Nucleated RBC % Seg Neutrophils # Seg Neutrophils # Man Lymphocytes # (Manual) POC ABG pH POC ABG pCO2 POC ABG pO2 VBG pH 6.982 L* Sodium 135 L Potassium 7.0 H* D Chloride 88.4 L Carbon Dioxide 5 L* BUN 89 H Creatinine 7.2 H Glucose 1326 H* POC Glucose Lactic Acid 8.50 H* Calcium Phosphorus Magnesium Direct Bilirubin AST ALT C-Reactive Protein Total Protein Albumin Salicylates Acetaminophen 11/06/18 11/06/18 11/06/18 14:15 14:15 15:21 WBC RBC Hgb Hct MCV MCHC RDW Plt Count Lymph % (Auto) Lymph # Seg Neutrophils % Seg Neuts % (Manual) Lymphocytes % (Manual) Nucleated RBC % Seg Neutrophils # Seg Neutrophils # Man Lymphocytes # (Manual) POC ABG pH POC ABG pCO2 POC ABG pO2 VBG pH Sodium Potassium 6.6 H* 6.0 H Chloride 95.3 L 93.3 L Carbon Dioxide 4 L* 6 L* BUN 83 H 91 H Creatinine 6.9 H 7.3 H Glucose 1205 H* 1174 H* POC Glucose Lactic Acid Calcium 8.2 L Phosphorus 13.00 H Magnesium 2.60 H Direct Bilirubin AST ALT C-Reactive Protein Total Protein Albumin Salicylates Acetaminophen 11/06/18 11/06/18 11/06/18 15:21 16:14 16:33 WBC RBC Hgb Hct MCV MCHC RDW Plt Count Lymph % (Auto) Lymph # Seg Neutrophils % Seg Neuts % (Manual) Lymphocytes % (Manual) Nucleated RBC % Seg Neutrophils # Seg Neutrophils # Man Lymphocytes # (Manual) POC ABG pH 7.004 L POC ABG pCO2 33.0 L POC ABG pO2 178 H VBG pH Sodium Potassium Chloride Carbon Dioxide BUN Creatinine Glucose POC Glucose > 500 H Lactic Acid 7.60 H* Calcium Phosphorus Magnesium Direct Bilirubin AST ALT C-Reactive Protein Total Protein Albumin Salicylates Acetaminophen 11/06/18 11/06/18 11/06/18 17:34 19:30 19:30 WBC RBC Hgb Hct MCV MCHC RDW Plt Count Lymph % (Auto) Lymph # Seg Neutrophils % Seg Neuts % (Manual) Lymphocytes % (Manual) Nucleated RBC % Seg Neutrophils # Seg Neutrophils # Man Lymphocytes # (Manual) POC ABG pH POC ABG pCO2 POC ABG pO2 VBG pH Sodium Potassium 5.5 H Chloride 97.4 L 97.7 L Carbon Dioxide 10 L 11 L BUN 88 H 87 H Creatinine 7.5 H 7.6 H Glucose 1054 H* 954 H* POC Glucose Lactic Acid Calcium 7.7 L 7.4 L Phosphorus Magnesium Direct Bilirubin AST ALT C-Reactive Protein 1.90 H Total Protein Albumin Salicylates Acetaminophen 11/06/18 11/06/18 11/06/18 20:31 20:40 20:40 WBC RBC Hgb Hct MCV MCHC RDW Plt Count Lymph % (Auto) Lymph # Seg Neutrophils % Seg Neuts % (Manual) Lymphocytes % (Manual) Nucleated RBC % Seg Neutrophils # Seg Neutrophils # Man Lymphocytes # (Manual) POC ABG pH 7.245 L POC ABG pCO2 POC ABG pO2 132 H VBG pH Sodium Potassium Chloride Carbon Dioxide BUN Creatinine Glucose 907 H* POC Glucose Lactic Acid 4.40 H* Calcium Phosphorus Magnesium Direct Bilirubin AST ALT C-Reactive Protein Total Protein Albumin Salicylates Acetaminophen 11/06/18 11/06/18 11/06/18 22:05 22:40 23:35 WBC RBC Hgb Hct MCV MCHC RDW Plt Count Lymph % (Auto) Lymph # Seg Neutrophils % Seg Neuts % (Manual) Lymphocytes % (Manual) Nucleated RBC % Seg Neutrophils # Seg Neutrophils # Man Lymphocytes # (Manual) POC ABG pH POC ABG pCO2 POC ABG pO2 VBG pH Sodium Potassium Chloride Carbon Dioxide 13 L BUN 86 H Creatinine 7.8 H Glucose 822 H* 726 H* POC Glucose Lactic Acid 3.40 H* Calcium 7.5 L Phosphorus Magnesium Direct Bilirubin AST ALT C-Reactive Protein Total Protein Albumin Salicylates Acetaminophen 11/07/18 11/07/18 11/07/18 01:25 01:26 03:15 WBC RBC Hgb Hct MCV MCHC RDW Plt Count Lymph % (Auto) Lymph # Seg Neutrophils % Seg Neuts % (Manual) Lymphocytes % (Manual) Nucleated RBC % Seg Neutrophils # Seg Neutrophils # Man Lymphocytes # (Manual) POC ABG pH POC ABG pCO2 POC ABG pO2 VBG pH Sodium Potassium Chloride Carbon Dioxide BUN Creatinine Glucose 602 H* POC Glucose > 500 H > 500 H Lactic Acid Calcium Phosphorus Magnesium Direct Bilirubin AST ALT C-Reactive Protein Total Protein Albumin Salicylates Acetaminophen 11/07/18 11/07/18 11/07/18 03:20 04:32 04:47 WBC RBC Hgb Hct MCV MCHC RDW Plt Count Lymph % (Auto) Lymph # Seg Neutrophils % Seg Neuts % (Manual) Lymphocytes % (Manual) Nucleated RBC % Seg Neutrophils # Seg Neutrophils # Man Lymphocytes # (Manual) POC ABG pH POC ABG pCO2 30.3 L POC ABG pO2 153 H VBG pH Sodium 149 H Potassium Chloride Carbon Dioxide 16 L BUN 86 H Creatinine 8.3 H Glucose 499.2 H POC Glucose 360 H Lactic Acid Calcium 7.6 L Phosphorus Magnesium Direct Bilirubin AST ALT C-Reactive Protein Total Protein Albumin Salicylates Acetaminophen 0611/07/18 11/07/18 05:26 06:35 06:36 WBC RBC Hgb Hct MCV MCHC RDW Plt Count Lymph % (Auto) Lymph # Seg Neutrophils % Seg Neuts % (Manual) Lymphocytes % (Manual) Nucleated RBC % Seg Neutrophils # Seg Neutrophils # Man Lymphocytes # (Manual) POC ABG pH POC ABG pCO2 POC ABG pO2 VBG pH Sodium 153 H Potassium 3.2 L Chloride 109.7 H Carbon Dioxide BUN 84 H Creatinine 8.6 H Glucose 249 H POC Glucose 341 H 274 H Lactic Acid Calcium 7.6 L Phosphorus Magnesium Direct Bilirubin AST ALT C-Reactive Protein Total Protein Albumin Salicylates Acetaminophen 11/07/18 11/07/18 11/07/18 07:33 09:00 09:52 WBC RBC Hgb Hct MCV MCHC RDW Plt Count Lymph % (Auto) Lymph # Seg Neutrophils % Seg Neuts % (Manual) Lymphocytes % (Manual) Nucleated RBC % Seg Neutrophils # Seg Neutrophils # Man Lymphocytes # (Manual) POC ABG pH POC ABG pCO2 POC ABG pO2 VBG pH Sodium Potassium Chloride Carbon Dioxide BUN Creatinine Glucose POC Glucose 243 H 182 H 227 H Lactic Acid Calcium Phosphorus Magnesium Direct Bilirubin AST ALT C-Reactive Protein Total Protein Albumin Salicylates Acetaminophen 11/07/18 11/07/18 11/07/18 10:50 10:50 10:50 WBC 11.3 H RBC 2.85 L Hgb 8.7 L Hct 25.3 L D MCV MCHC RDW Plt Count Lymph % (Auto) 9.7 L Lymph # 1.1 L Seg Neutrophils % 83.3 H Seg Neuts % (Manual) Lymphocytes % (Manual) Nucleated RBC % Seg Neutrophils # 9.4 H Seg Neutrophils # Man Lymphocytes # (Manual) POC ABG pH POC ABG pCO2 POC ABG pO2 VBG pH Sodium 154 H Potassium 3.2 L Chloride 110.2 H Carbon Dioxide BUN 82 H Creatinine 8.3 H Glucose 186 H POC Glucose 200 H Lactic Acid Calcium 7.3 L Phosphorus Magnesium Direct Bilirubin AST ALT C-Reactive Protein Total Protein Albumin Salicylates Acetaminophen 11/07/18 11/07/18 11/07/18 12:00 12:05 13:13 WBC RBC Hgb Hct MCV MCHC RDW Plt Count Lymph % (Auto) Lymph # Seg Neutrophils % Seg Neuts % (Manual) Lymphocytes % (Manual) Nucleated RBC % Seg Neutrophils # Seg Neutrophils # Man Lymphocytes # (Manual) POC ABG pH POC ABG pCO2 POC ABG pO2 VBG pH Sodium Potassium Chloride Carbon Dioxide BUN Creatinine Glucose POC Glucose 179 H 190 H Lactic Acid 2.50 H* Calcium Phosphorus Magnesium Direct Bilirubin AST ALT C-Reactive Protein Total Protein Albumin Salicylates Acetaminophen 11/07/18 11/07/18 11/07/18 13:20 14:05 15:18 WBC RBC Hgb Hct MCV MCHC RDW Plt Count Lymph % (Auto) Lymph # Seg Neutrophils % Seg Neuts % (Manual) Lymphocytes % (Manual) Nucleated RBC % Seg Neutrophils # Seg Neutrophils # Man Lymphocytes # (Manual) POC ABG pH POC ABG pCO2 POC ABG pO2 VBG pH Sodium Potassium 3.1 L Chloride Carbon Dioxide BUN 50 H Creatinine 5.0 H Glucose 176 H POC Glucose 189 H 215 H Lactic Acid Calcium 7.4 L Phosphorus Magnesium Direct Bilirubin AST ALT C-Reactive Protein Total Protein Albumin Salicylates Acetaminophen 11/07/18 11/07/18 11/07/18 16:25 17:37 23:23 WBC RBC Hgb Hct MCV MCHC RDW Plt Count Lymph % (Auto) Lymph # Seg Neutrophils % Seg Neuts % (Manual) Lymphocytes % (Manual) Nucleated RBC % Seg Neutrophils # Seg Neutrophils # Man Lymphocytes # (Manual) POC ABG pH POC ABG pCO2 POC ABG pO2 VBG pH Sodium Potassium Chloride Carbon Dioxide BUN Creatinine Glucose POC Glucose 180 H 215 H 234 H Lactic Acid Calcium Phosphorus Magnesium Direct Bilirubin AST ALT C-Reactive Protein Total Protein Albumin Salicylates Acetaminophen 11/08/18 11/08/18 11/08/18 04:17 04:23 04:23 WBC RBC 2.98 L Hgb 9.3 L Hct 26.7 L MCV MCHC 35 H RDW Plt Count 130 L Lymph % (Auto) Lymph # Seg Neutrophils % 80.3 H Seg Neuts % (Manual) Lymphocytes % (Manual) Nucleated RBC % Seg Neutrophils # 7.8 H Seg Neutrophils # Man Lymphocytes # (Manual) POC ABG pH 7.520 H POC ABG pCO2 POC ABG pO2 111 H VBG pH Sodium Potassium 3.0 L Chloride Carbon Dioxide BUN 44 H Creatinine 6.3 H Glucose 245 H POC Glucose Lactic Acid Calcium 7.3 L Phosphorus Magnesium Direct Bilirubin AST ALT C-Reactive Protein Total Protein Albumin Salicylates Acetaminophen 11/08/18 11/08/18 11/08/18 05:19 08:00 08:00 WBC RBC Hgb Hct MCV MCHC RDW Plt Count Lymph % (Auto) Lymph # Seg Neutrophils % Seg Neuts % (Manual) Lymphocytes % (Manual) Nucleated RBC % Seg Neutrophils # Seg Neutrophils # Man Lymphocytes # (Manual) POC ABG pH POC ABG pCO2 POC ABG pO2 VBG pH Sodium Potassium Chloride Carbon Dioxide BUN Creatinine Glucose POC Glucose 253 H Lactic Acid 2.70 H* Calcium Phosphorus Magnesium Direct Bilirubin 0.3 H AST 932 H ALT 582 H C-Reactive Protein Total Protein 5.4 L Albumin 2.6 L Salicylates Acetaminophen 11/08/18 11:36 WBC RBC Hgb Hct MCV MCHC RDW Plt Count Lymph % (Auto) Lymph # Seg Neutrophils % Seg Neuts % (Manual) Lymphocytes % (Manual) Nucleated RBC % Seg Neutrophils # Seg Neutrophils # Man Lymphocytes # (Manual) POC ABG pH POC ABG pCO2 POC ABG pO2 VBG pH Sodium Potassium Chloride Carbon Dioxide BUN Creatinine Glucose POC Glucose 197 H Lactic Acid Calcium Phosphorus Magnesium Direct Bilirubin AST ALT C-Reactive Protein Total Protein Albumin Salicylates Acetaminophen Chest x-ray: image reviewed (no focal infiltrate; ETT in good position) Allied health notes reviewed: nursing
--- NOTE | 2018-11-08 17:50 | Progress Note ---
Assessment and Plan Assessment and plan: 42 YO Male with ESRD on HD, HTN, DM, PAD, Nicotine Dependence presents to ED for evaluation. Pt is unable to provide history. Pt history taken from EMS, ED Staff, and patient family who is at bedside during exam. As per family, the patient was in his usual state of health around bedtime at 2200hrs. Pt was found down and unresponsive by family today this morning. EMS notified, and upon arrival the patient was found to be in distress. Pt Intubated and placed on vent support. Pt transported to [facility]. Pt seen and evaluated in ED and found to have STEMI, Acute on Chronic Renal Failure, Acidosis, Acute Respiratory Failure, Sepsis, and DKA. Pt experienced cardiac arrest in ED and was treated IAW ACLS protocol with return of perfusing cardiac rhythm. Pt found to have signs of Anoxic Brain Injury. Pt admitted to ICU and initiated on sepsis protocol and treated with IVF resuscitation therapy, IV pressor support. Pt has poor prognosis. Neurology consulted in ED, Cardiology consulted in ED, and Nephrology team consulted in ED. No further history obtainable. Acute Hypoxic Respiratory failure S/P Cardiopulmonary Arrest-unknown etiology DKA-corrected Severe metabolic Acidosis Anoxic Encephalopathy Thrombocytopenia possible HIT Seizure Disorder Acute Kidney Injury secondary to ischemic ATN from hypotension, cardiac arrest, in setting of underlying hx CKD 4 Cardiogenic Shock S/P High Anion Gap Metabolic Acidosis with elevated lactic acidosis with DKA- Improving S/P Hyperkalemia Hypokalemaia Hyperphosphatemia Anemia of chronic disease PAD Shock Liver Plan Continue supportive care Hold anticoagulation, check HIT Replace K Stop D5 Check LFT Cardiology, Pulmonary and Nephrology input noted Anticipate HD today again Monitor and replace electrolytes as needed IV keppra Poor Prognosis Abx per ID The high probability of a clinically significant, sudden or life threatening deterioration of the [neuro, cardiac, renal, respiratory] system(s) required my full and direct attention, intervention and personal management. The aggregate critical care time was [65] minutes. This time is in addition to time spent performing reported procedures but includes the following: [x] Data Review and interpretation [x] Patient assessment and monitoring of vital signs [x] Documentation [x] Medication orders and management History Interval history: Patient seen and examined, intubated, non responsive, no family present. grimaces with noxious stimuli no other adverse event reported by nursing staff. Hospitalist Physical - Physical exam Narrative exam: VITAL SIGNS: Reviewed. GENERAL: The patient appeared well nourished and normally developed, on full m echanical ventilation and non responsive despite no sedation. Vital signs as documented. HEAD: No signs of head trauma. EYES: Pupils are equal. EARS: unable to assess MOUTH: ETT in place NECK: No adenopathy, no JVD. CHEST: Diminished CARDIAC: Regular rate and rhythm. S1 and S2, without murmurs, gallops, or rubs. VASCULAR: lEFT AV GRAFT. +thrill. Peripheral pulses normal and equal in all extremities. ABDOMEN: Soft, non tender and non distended. No rebound or guarding, and no masses palpated. OGT noted MUSCULOSKELETAL: Good range of motion of all major joints. Extremities without clubbing, cyanosis or edema. NEUROLOGIC EXAM: unresponsive. PSYCHIATRIC: unable to examine. SKIN: No rash or lesions. - Constitutional Vitals: Temp Pulse Resp BP Pulse Ox 100.6 F H 96 H 18 160/83 100 11/08/18 15:57 11/08/18 13:31 11/08/18 13:31 11/08/18 13:31 11/08/18 13:31 General appearance: Present: severe distress Results - Labs CBC & Chem 7: 11/08/18 04:23 11/08/18 04:23 Labs: Laboratory Last Values WBC 9.8 K/mm3 (4.5-11.0) 11/08/18 04:23 RBC 2.98 M/mm3 (3.65-5.03) L 11/08/18 04:23 Hgb 9.3 gm/dl (11.8-15.2) L 11/08/18 04:23 Hct 26.7 % (35.5-45.6) L 11/08/18 04:23 MCV 90 fl (84-94) 11/08/18 04:23 MCH 31 pg (28-32) 11/08/18 04:23 MCHC 35 % (32-34) H 11/08/18 04:23 RDW 14.3 % (13.2-15.2) 11/08/18 04:23 Plt Count 130 K/mm3 (140-440) L 11/08/18 04:23 Lymph % (Auto) 14.6 % (13.4-35.0) 11/08/18 04:23 [place] % (Auto) 4.8 % (0.0-7.3) 11/08/18 04:23 Eos % (Auto) 0.1 % (0.0-4.3) 11/08/18 04:23 Baso % (Auto) 0.2 % (0.0-1.8) 11/08/18 04:23 Lymph # 1.4 K/mm3 (1.2-5.4) 11/08/18 04:23 Lawrence # 0.5 K/mm3 (0.0-0.8) 11/08/18 04:23 Eos # 0.0 K/mm3 (0.0-0.4) 11/08/18 04: Baso # 0.0 K/mm3 (0.0-0.1) 11/08/18 04:23 Add Manual Diff Complete 11/06/18 09:02 Total Counted 100 11/06/18 09:02 Seg Neutrophils % 80.3 % (40.0-70.0) H 11/08/18 04:23 Seg Neuts % (Manual) 76.0 % (40.0-70.0) H 11/06/18 09:02 18.0 % 11/06/18 09:02 4.0 % (13.4-35.0) L 11/06/18 09:02 Reactive Lymphs % (Man) 0 % 11/06/18 09:02 2.0 % (0.0-7.3) 11/06/18 09:02 0 % (0.0-4.3) 11/06/18 09:02 0 % (0.0-1.8) 11/06/18 09:02 0 % 11/06/18 09:02 0 % 11/06/18 09:02 0 % 11/06/18 09:02 0 % 11/06/18 09:02 Nucleated RBC % 1.0 % (0.0-0.9) H 11/06/18 09:02 Seg Neutrophils # 7.8 K/mm3 (1.8-7.7) H 11/08/18 04:23 Seg Neutrophils # Man 15.3 K/mm3 (1.8-7.7) H 11/06/18 09:02 Band Neutrophils # 3.6 K/mm3 11/06/18 09:02 0.8 K/mm3 (1.2-5.4) L 11/06/18 09:02 Abs React Lymphs (Man) 0.0 K/mm3 11/06/18 09:02 0.4 K/mm3 (0.0-0.8) 11/06/18 09:02 0.0 K/mm3 (0.0-0.4) 11/06/18 09:02 0.0 K/mm3 (0.0-0.1) 11/06/18 09:02 0.0 K/mm3 11/06/18 09:02 0.0 K/mm3 11/06/18 09:02 0.0 K/mm3 11/06/18 09:02 Blast Cells # 0.0 K/mm3 11/06/18 09:02 WBC Morphology Not Reportable 11/06/18 09:02 Hypersegmented Neuts Not Reportable 11/06/18 09:02 Hyposegmented Neuts Not Reportable 11/06/18 09:02 Hypogranular Neuts Not Reportable 11/06/18 09:02 Not Reportable 11/06/18 09:02 Not Reportable 11/06/18 09:02 Not Reportable 11/06/18 09:02 Not Reportable 11/06/18 09:02 Not Reportable 11/06/18 09:02 Not Reportable 11/06/18 09:02 Consistent w auto 11/06/18 09:02 Not Reportable 11/06/18 09:02 Plt Clumps, EDTA Not Reportable 11/06/18 09:02 Not Reportable 11/06/18 09:02 Not Reportable 11/06/18 09:02 Not Reportable 11/06/18 09:02 Plt Morphology Comment Not Reportable 11/06/18 09:02 RBC Morphology Not Reportable 11/06/18 09:02 Dimorphic RBCs Not Reportable 11/06/18 09:02 Not Reportable 11/06/18 09:02 Not Reportable 11/06/18 09:02 Not Reportable 11/06/18 09:02 Not Reportable 11/06/18 09:02 Not Reportable 11/06/18 09:02 2+ 11/06/18 09:02 Not Reportable 11/06/18 09:02 Not Reportable 11/06/18 09:02 Not Reportable 11/06/18 09:02 Not Reportable 11/06/18 09:02 Not Reportable 11/06/18 09:02 Not Reportable 11/06/18 09:02 Not Reportable 11/06/18 09:02 Not Reportable 11/06/18 09:02 Not Reportable 11/06/18 09:02 Not Reportable 11/06/18 09:02 Not Reportable 11/06/18 09:02 Not Reportable 11/06/18 09:02 Not Reportable 11/06/18 09:02 Acanthocytes (Spur) Not Reportable 11/06/18 09:02 Rouleaux Not Reportable 11/06/18 09:02 Not Reportable 11/06/18 09:02 Not Reportable 11/06/18 09:02 Not Reportable 11/06/18 09:02 Not Reportable 11/06/18 09:02 Hem Pathologist Commnt No 11/06/18 09:02 POC ABG pH 7.520 (7.35-7.45) H 11/08/18 04:17 POC ABG pCO2 36.2 (35-45) 11/08/18 04:17 POC ABG pO2 111 (80-105) H 11/08/18 04:17 POC ABG HCO3 29.6 (22-26 mml/L) 11/08/18 04:17 POC ABG Total CO2 31 (23-27mmol/L) 11/08/18 04:17 POC ABG O2 Sat 99 11/08/18 04:17 POC ABG Base Excess 7 ((-2) - (+3)mmol/L) 11/08/18 04:17 VBG pH 6.982 (7.320-7.420) L* 11/06/18 13:22 25 % 11/08/18 04:17 Sodium 144 mmol/L (137-145) 11/08/18 04:23 Potassium 3.0 mmol/L (3.6-5.0) L 11/08/18 04:23 Chloride 102.2 mmol/L (98-107) 11/08/18 04:23 Carbon Dioxide 26 mmol/L (22-30) 11/08/18 04:23 19 mmol/L 11/08/18 04:23 BUN 44 mg/dL (9-20) H 11/08/18 04:23 6.3 mg/dL (0.8-1.5) H 11/08/18 04:23 Estimated GFR 12 ml/min 11/08/18 04:23 7 % 11/08/18 04:23 Glucose 245 mg/dL (75-100) H 11/08/18 04:23 POC Glucose 100 (70-105) 11/08/18 17:04 Lactic Acid 2.70 mmol/L (0.7-2.0) H* 11/08/18 08:00 Calcium 7.3 mg/dL (8.4-10.2) L 11/08/18 04:23 Phosphorus 2.50 mg/dL (2.5-4.5) 11/08/18 04:23 Magnesium 2.60 mg/dL (1.7-2.3) H 11/06/18 14:15 0.60 mg/dL (0.1-1.2) 11/08/18 08:00 0.3 mg/dL (0-0.2) H 11/08/18 08:00 0.3 mg/dL 11/08/18 08:00 AST 932 units/L (5-40) H 11/08/18 08:00 ALT 582 units/L (7-56) H 11/08/18 08:00 104 units/L (35-129) 11/08/18 08:00 58 units/L (55-170) 11/06/18 09:02 0.027 ng/mL (0.00-0.029) 11/06/18 09:02 1.90 mg/dL (0.00-1.30) H 11/06/18 19:30 5.4 g/dL (6.3-8.2) L 11/08/18 08:00 2.6 g/dL (3.9-5) L 11/08/18 08:00 0.9 % 11/08/18 08:00 Straw (Yellow) 11/06/18 10:38 Clear (Clear) 11/06/18 10:38 5.0 (5.0-7.0) 11/06/18 10:38 Ur Specific [place] 1.014 (1.003-1.030) 11/06/18 10:38 100 mg/dl mg/dL (Negative) 11/06/18 10:38 >=500 mg/dL (Negative) 11/06/18 10:38 20 mg/dL (Negative) 11/06/18 10:38 Sm (Negative) 11/06/18 10:38 Neg (Negative) 11/06/18 10:38 Neg (Negative) 11/06/18 10:38 < 2.0 mg/dL (<2.0) 11/06/18 10:38 Ur Leukocyte Esterase Neg (Negative) 11/06/18 10:38 < 1.0 /HPF (0.0-6.0) 11/06/18 10:38 2.0 /HPF (0.0-6.0) 11/06/18 10:38 U Epithel Cells (Auto) < 1.0 /HPF (0-13.0) 11/06/18 10:38 Random Vancomycin 13.2 ug/mL (0-40.0) 11/08/18 04:23 Salicylates < 0.3 mg/dL (2.8-20.0) L 11/06/18 09:02 Presumptive negative 11/06/18 10:38 Presumptive negative 11/06/18 10:38 Acetaminophen < 5.0 ug/mL (10.0-30.0) L 11/06/18 09:02 Ur Barbiturates Screen Presumptive negative 11/06/18 10:38 Ur Phencyclidine Scrn Presumptive negative 11/06/18 10:38 Ur Amphetamines Screen Presumptive negative 11/06/18 10:38 U Benzodiazepines Scrn Presumptive negative 11/06/18 10:38 Presumptive negative 11/06/18 10:38 U Marijuana (THC) Screen Presumptive positive 11/06/18 10:38 Disclamer 11/06/18 10:38 Plasma/Serum Alcohol < 0.01 % (0-0.07) 11/06/18 09:02 Hepatitis A IgM Ab Non-reactive (NonReactive) 11/07/18 13:20 Hep Bs Antigen Non-reactive (Negative) 11/07/18 13:20 Hep B Core IgM Ab Non-reactive (NonReactive) 11/07/18 13:20 Non-reactive (NonReactive) 11/07/18 13:20 Blood Type A POSITIVE 11/06/18 14:15 Antibody Screen Not Reportable 11/06/18 14:15 JANIS Antibody Screen Negative 11/06/18 14:15 Active Medications - Current Medications Current Medications: Generic Name Dose Route Start Last Admin Trade Name Freq PRN Reason Stop Dose Admin Acetaminophen 650 mg 11/06/18 22:22 11/06/18 22:33 Tylenol FEEDTUBE 650 mg Q6H PRN Administration Fever >101 Chlorpromazine HCl 10 mg 11/07/18 08:07 11/08/18 06:05 Thorazine PO 10 mg Q6H PRN Administration Hiccups Dextrose 50 ml 11/07/18 16:46 D50w (25gm) Syringe IV PRN PRN Hypoglycemia Fentanyl 50 mcg 11/06/18 08:37 Sublimaze IV Q10MIN PRN ANALGESIA Hydralazine HCl 10 mg 11/08/18 00:56 11/08/18 01:35 Apresoline IV 10 mg Q4H PRN Administration Hypertension Hydrophilic Ointment 1 applic 11/06/18 08:26 Vaseline Lip Therapy TP Q2HR PRN Dry Lips Fentanyl Citrate 2,000 mcg in 100 mls @ 4.309 mls/hr 11/06/18 10:00 11/08/18 13:42 Fentanyl Drip Premix IV 1 mcg/kg/hr TITR MARIAJOSE 4.309 mls/hr Administration Protocol 1 MCG/KG/HR Epinephrine 8 mg/ Sodium 250 mls @ 3.75 mls/hr 11/06/18 10:00 11/06/18 23:49 Chloride IV 11/09/18 04:39 0 mcg/min TITR ONE 0 mls/hr Titration Protocol 2 MCG/MIN Norepinephrine 4 mg in 250 mls @ 7.5 mls/hr 11/06/18 16:00 11/07/18 05:50 Levophed Drip 4 Mg/Ns 250 Ml IV 0 mcg/min TITR MARIAJOSE 0 mls/hr Titration Protocol 2 MCG/MIN Levetiracetam 1,000 mg in 100 mls @ 400 mls/hr 11/06/18 18:00 11/08/18 09:39 Keppra 1,000 Mg/Ns 0.75% 100ml IV 400 mls/hr Q24HR MARIAJOSE Administration Sodium Bicarbonate 150 meq/ 1,150 mls @ 150 mls/hr 11/06/18 20:00 11/07/18 14 :15 Sterile Water IV 11/09/18 03:39 150 mls/hr DIRECT MARIAJOSE Administration Piperacillin Sod/Tazobactam Sod 2.25 gm in 50 mls @ 100 mls/hr 11/06/18 22:00 11/08/18 13:45 Zosyn/Ns 2.25 Gm/50ml IV 100 mls/hr Q8HR MARIAJOSE Administration Protocol Sodium Chloride 1,000 mls @ 75 mls/hr 11/08/18 08:00 11/08/18 08:27 Nacl 0.9% 1000 Ml IV 75 mls/hr DIRECT MARIAJOSE Administration Insulin Human Isoph/Insulin Regular 20 unit 11/07/18 18:00 11/08/18 08:23 Humulin 70/30 SUB-Q 20 unit BIDDIAB MARIAJOSE Administration Insulin Human Regular 0 units 11/07/18 18:00 11/08/18 12:35 Humulin R SUB-Q 2 units Q6HR MARIAJOSE Administration Protocol Multi-Ingred Cream/Lotion/Oil/Oint 1 applic 11/06/18 08:26 Artificial Tears Ophth Oint OU Q4HR PRN Dry Eye(s) Pantoprazole Sodium 40 mg 11/06/18 20:00 11/08/18 08:23 Protonix IV 40 mg Q12H MARIAJOSE Administration Sodium Chloride 10 ml 11/06/18 22:00 11/08/18 09:39 Sodium Chloride Flush Syringe 10 Ml IV 10 ml BID MARIAJOSE Administration Sodium Chloride 10 ml 11/06/18 12:42 Sodium Chloride Flush Syringe 10 Ml IV PRN PRN LINE FLUSH Nutrition/Malnutrition Assess - Dietary Evaluation Nutrition/Malnutrition Findings: Nutrition Notes Start: 11/07/18 14:40 Freq: Status: Active Protocol: Document 11/07/18 14:41 RM (Rec: 11/07/18 14:51 RM [id number]) Nutrition Notes Need for Assessment generated from: MD Order Initial or Follow up Assessment Current Diagnosis Acute Kidney Injury,Diabetes Other Pertinent Diagnosis ESRD on HD, PAD, Anoxic brain injury, Cardiopulmonary arrest Current Diet No diet ordered Labs/Tests Na 153 Pertinent Medications Reviewed Height 6 ft 2 in Weight 86.183 kg [place] Body Weight (kg) 86.36 BMI 24.3 Subjective/Other Information Consulted for evaluate nutritional intake. Pt on vent. Burn Absent Trauma Absent #1 Nutrition Diagnosis Inadequate oral intake Etiology on vent As Evidenced by Signs and Symptoms no diet ordered Is patient on ventilator? Yes Is Patient Ambulatory and/or Out of Bed No REE-([facility]-confined to bed) [phone] Calculation Used for Recommendations [facility] Additional Notes Protein Needs: 103-172g (1.2- 2g/kg) Fluid Needs: 1 ml/kcal Nutrition Intervention Change Diet Order: TF consult Nutrition Support: Once consulted Glucerna 1.2 at 75 ml/hr Water flush of 200 mls q 4 hrs until hypernatremia resolves. Water flush of 120 mls q 4 hrs once hypernatremia resolves. Kcal 2,160 Protein (gm) 108 Fluid (mL) 1,449 Goal #1 TF consult Anticipated Discharge Needs: Unable to determine at this time Follow-Up By: 11/10/18 Additional Comments Follow for TF consult
[2018-11-08] MEDS ORDERED: SIMPLE SYRUP FEEDTUBE PRN ×2 (18:38)
[2018-11-08] MEDS ORDERED: PANCREAZE DR 10,500 UNIT FEEDTUBE PRN (18:38)
[2018-11-08] MEDS ORDERED: SODIUM BICARBONATE FEEDTUBE PRN (18:38)
[2018-11-09] MEDS ORDERED: NACL 0.9% 500 ML 500 ML IV ONE (00:45)
--- NOTE | 2018-11-09 04:27 | XRay Report ---
PROCEDURE: XR CHEST 1V AP TECHNIQUE: Chest radiograph single view. HISTORY: follow up respiratory failure COMPARISONS: 11/08/2018 . FINDINGS: Satisfactory endotracheal and enteric tubes. No mediastinal shift. Cardiac silhouette is not enlarged . No pneumothorax, effusion, or focal pulmonary opacity identified. No acute skeletal findings. IMPRESSION: Satisfactory appearance of the patient's support apparatus without pneumothorax or significant change compared to 11/08/2018. This document is electronically signed by Oliver Kincaid MD., November 09 2018 05:26:06 AM ET
[2018-11-09] MEDS: HumuLIN R SUB-Q SCH ×4 (05:30→23:55)
[2018-11-09] MEDS: ZOSYN/NS 2.25 GM/50ML 2.25 GM/50 ML BAG IV SCH ×3 (06:13→21:39)
[2018-11-09 06:44] LABS: Hematocrit 26.7 % (35.5-45.6); Hemoglobin 9.2 gm/dl (11.8-15.2); Mean Corpuscular HGB Conc 34 % (32-34); Mean Corpuscular Volume 91 fl (84-94); Platelet Count 101 K/mm3 (140-440); Red Blood Count 2.95 M/mm3 (3.65-5.03); Red Cell Distribution Width 14.1 % (13.2-15.2)
[2018-11-09 06:53] LABS: Albumin 2.6 g/dL (3.9-5); Calcium 7.2 mg/dL (8.4-10.2)
[2018-11-09] MEDS ORDERED: SODIUM BICARBONATE FEEDTUBE PRN (08:05)
[2018-11-09] MEDS ORDERED: PANCREAZE DR 10,500 UNIT FEEDTUBE PRN (08:05)
[2018-11-09] MEDS ORDERED: SIMPLE SYRUP FEEDTUBE PRN ×2 (08:05)
--- NOTE | 2018-11-09 09:38 | Progress Note ---
Assessment and Plan Assessment and plan: --S/P Cardiopulmonary Arrest-unknown etiology Continue supportive care, ventilatory support, nebulizers --Anoxic Encephalopathy; neurology evaluation, supportive care Poor prognosis --Acute Hypoxic Respiratory failure; continue ventilatory support Nebulizers, pulmonary following, wean as tolerated and extubate --Acute kidney injury; secondary to ATN Nephrology following, hemodialysis per schedule --DKA-corrected; closely monitor blood sugars Accu-Chek sliding scale coverage and ADA diet, insulin as needed --Severe metabolic Acidosis; multifactorial closely monitor --Thrombocytopenia possible HIT; hematology oncology evaluation If needed --Seizure Disorder; seizure precautions Antiepileptic medications, urology following --Acute Kidney Injury secondary to ischemic ATN from hypotension, underlying hx CKD 4: Avoid nephrotoxins, nephrology following --Cardiogenic Shock; supportive care, management per cardiology --Anemia of chronic disease; monitor H&H and transfuse as needed --Severe malnutrition/nutritional supplements, nutrition consult; --PAD; continue current management --Shock Liver; with transaminitis, trending down supportive care --DVT prophylaxis; SCDs --Full CODE STATUS Very poor prognosis. plan of care is reviewed with the patient's nurse Critical care time 35 minutes History Interval history: Patient seen and examined medical records reviewed Intubated on ventilatory support No new events reported by the nursing Vital signs noted Hospitalist Physical - Constitutional Vitals: Temp Pulse Resp BP Pulse Ox 99.8 F H 98 H 24 153/69 100 11/09/18 04:00 11/09/18 08:37 11/09/18 06:00 11/09/18 08:37 11/09/18 08:37 General appearance: Present: severe distress, well-nourished, other (intubated on ventilatory support) - EENT Eyes: Present: PERRL, EOM intact - Neck Neck: Present: supple, normal ROM - Respiratory Respiratory effort: normal Respiratory: bilateral: diminished, negative: rales, rhonchi, wheezing - Cardiovascular Rhythm: regular Heart Sounds: Present: S1 & S2 - Extremities Extremities: no ischemia, No edema - Abdominal General gastrointestinal: soft, non-tender, non-distended, normal bowel sounds - Integumentary Integumentary: Present: clear, warm - Psychiatric Psychiatric: other (intubated on vent) - Neurologic Neurologic: other (intubated on vent) Results - Labs CBC & Chem 7: 11/09/18 06:02 11/09/18 06:02 Labs: Laboratory Last Values WBC 9.8 K/mm3 (4.5-11.0) 11/09/18 06:02 RBC 2.95 M/mm3 (3.65-5.03) L 11/09/18 06:02 Hgb 9.2 gm/dl (11.8-15.2) L 11/09/18 06:02 Hct 26.7 % (35.5-45.6) L 11/09/18 06:02 MCV 91 fl (84-94) 11/09/18 06:02 MCH 31 pg (28-32) 11/09/18 06:02 MCHC 34 % (32-34) 11/09/18 06:02 RDW 14.1 % (13.2-15.2) 11/09/18 06:02 Plt Count 101 K/mm3 (140-440) L 11/09/18 06:02 Lymph % (Auto) 14.6 % (13.4-35.0) 11/08/18 04:23 [place] % (Auto) 4.8 % (0.0-7.3) 11/08/18 04:23 Eos % (Auto) 0.1 % (0.0-4.3) 11/08/18 04:23 Baso % (Auto) 0.2 % (0.0-1.8) 11/08/18 04:23 Lymph # 1.4 K/mm3 (1.2-5.4) 11/08/18 04:23 [place] # 0.5 K/mm3 (0.0-0.8) 11/08/18 04:23 Eos # 0.0 K/mm3 (0.0-0.4) 11/08/18 04:23 Baso # 0.0 K/mm3 (0.0-0.1) 11/08/18 04:23 Add Manual Diff Complete 11/06/18 09:02 Total Counted 100 11/06/18 09:02 Seg Neutrophils % 80.3 % (40.0-70.0) H 11/08/18 04:23 Seg Neuts % (Manual) 76.0 % (40.0-70.0) H 11/06/18 09:02 18.0 % 11/06/18 09:02 4.0 % (13.4-35.0) L 11/06/18 09:02 Reactive Lymphs % (Man) 0 % 11/06/18 09:02 2.0 % (0.0-7.3) 11/06/18 09:02 0 % (0.0-4.3) 11/06/18 09:02 0 % (0.0-1.8) 11/06/18 09:02 0 % 11/06/18 09:02 0 % 11/06/18 09:02 0 % 11/06/18 09:02 0 % 11/06/18 09:02 Nucleated RBC % 1.0 % (0.0-0.9) H 11/06/18 09:02 Seg Neutrophils # 7.8 K/mm3 (1.8-7.7) H 11/08/18 04:23 Seg Neutrophils # Man 15.3 K/mm3 (1.8-7.7) H 11/06/18 09:02 Band Neutrophils # 3.6 K/mm3 11/06/18 09:02 0.8 K/mm3 (1.2-5.4) L 11/06/18 09:02 Abs React Lymphs (Man) 0.0 K/mm3 11/06/18 09:02 0.4 K/mm3 (0.0-0.8) 11/06/18 09:02 0.0 K/mm3 (0.0-0.4) 11/06/18 09:02 0.0 K/mm3 (0.0-0.1) 11/06/18 09:02 0.0 K/mm3 11/06/18 09:02 0.0 K/mm3 11/06/18 09:02 0.0 K/mm3 11/06/18 09:02 Blast Cells # 0.0 K/mm3 11/06/18 09:02 WBC Morphology Not Reportable 11/06/18 09:02 Hypersegmented Neuts Not Reportable 11/06/18 09:02 Hyposegmented Neuts Not Reportable 11/06/18 09:02 Hypogranular Neuts Not Reportable 11/06/18 09:02 Not Reportable 11/06/18 09:02 Not Reportable 11/06/18 09:02 Not Reportable 11/06/18 09:02 Not Reportable 11/06/18 09:02 Not Reportable 11/06/18 09:02 Not Reportable 11/06/18 09:02 Consistent w auto 11/06/18 09:02 Not Reportable 11/06/18 09:02 Plt Clumps, EDTA Not Reportable 11/06/18 09:02 Not Reportable 11/06/18 09:02 Not Reportable 11/06/18 09:02 Not Reportable 11/06/18 09:02 Plt Morphology Comment Not Reportable 11/06/18 09:02 RBC Morphology Not Reportable 11/06/18 09:02 Dimorphic RBCs Not Reportable 11/06/18 09:02 Not Reportable 11/06/18 09:02 Not Reportable 11/06/18 09:02 Not Reportable 11/06/18 09:02 Not Reportable 11/06/18 09:02 Not Reportable 11/06/18 09:02 2+ 11/06/18 09:02 Not Reportable 11/06/18 09:02 Not Reportable 11/06/18 09:02 Not Reportable 11/06/18 09:02 Not Reportable 11/06/18 09:02 Not Reportable 11/06/18 09:02 Not Reportable 11/06/18 09:02 Not Reportable 11/06/18 09:02 Not Reportable 11/06/18 09:02 Not Reportable 11/06/18 09:02 Not Reportable 11/06/18 09:02 Not Reportable 11/06/18 09:02 Not Reportable 11/06/18 09:02 Not Reportable 11/06/18 09:02 Acanthocytes (Spur) Not Reportable 11/06/18 09:02 Rouleaux Not Reportable 11/06/18 09:02 Not Reportable 11/06/18 09:02 Not Reportable 11/06/18 09:02 Not Reportable 11/06/18 09:02 Not Reportable 11/06/18 09:02 Hem Pathologist Commnt No 11/06/18 09:02 POC ABG pH 7.437 (7.35-7.45) 11/09/18 03:48 POC ABG pCO2 40.8 (35-45) 11/09/18 03:48 POC ABG pO2 108 (80-105) H 11/09/18 03:48 POC ABG HCO3 27.5 (22-26 mml/L) 11/09/18 03:48 POC ABG Total CO2 29 (23-27mmol/L) 11/09/18 03:48 POC ABG O2 Sat 98 11/09/18 03:48 POC ABG Base Excess 3 ((-2) - (+3)mmol/L) 11/09/18 03:48 VBG pH 6.982 (7.320-7.420) L* 11/06/18 13:22 25 % 11/09/18 03:48 Sodium 150 mmol/L (137-145) H 11/09/18 06:02 Potassium 3.6 mmol/L (3.6-5.0) 11/09/18 06:02 Chloride 108.3 mmol/L (98-107) H 11/09/18 06:02 Carbon Dioxide 27 mmol/L (22-30) 11/09/18 06:02 18 mmol/L 11/09/18 06:02 BUN 44 mg/dL (9-20) H 11/09/18 06:02 7.7 mg/dL (0.8-1.5) H 11/09/18 06:02 Estimated GFR 9 ml/min 11/09/18 06:02 6 % 11/09/18 06:02 Glucose 102 mg/dL (75-100) H 11/09/18 06:02 POC Glucose 100 (70-105) 11/09/18 05:31 Lactic Acid 2.70 mmol/L (0.7-2.0) H* 11/08/18 08:00 Calcium 7.2 mg/dL (8.4-10.2) L 11/09/18 06:02 Phosphorus 2.50 mg/dL (2.5-4.5) 11/08/18 04:23 Magnesium 2.60 mg/dL (1.7-2.3) H 11/06/18 14:15 0.70 mg/dL (0.1-1.2) 11/09/18 06:02 0.3 mg/dL (0-0.2) H 11/08/18 08:00 0.3 mg/dL 11/08/18 08:00 AST 554 units/L (5-40) H 11/09/18 06:02 ALT 461 units/L (7-56) H 11/09/18 06:02 120 units/L (35-129) 11/09/18 06:02 58 units/L (55-170) 11/06/18 09:02 0.027 ng/mL (0.00-0.029) 11/06/18 09:02 1.90 mg/dL (0.00-1.30) H 11/06/18 19:30 5.1 g/dL (6.3-8.2) L 11/09/18 06:02 2.6 g/dL (3.9-5) L 11/09/18 06:02 1.0 % 11/09/18 06:02 Straw (Yellow) 11/06/18 10:38 Clear (Clear) 11/06/18 10:38 5.0 (5.0-7.0) 11/06/18 10:38 Ur Specific [place] 1.014 (1.003-1.030) 11/06/18 10:38 100 mg/dl mg/dL (Negative) 11/06/18 10:38 >=500 mg/dL (Negative) 11/06/18 10:38 20 mg/dL (Negative) 11/06/18 10:38 Sm (Negative) 11/06/18 10:38 Neg (Negative) 11/06/18 10:38 Neg (Negative) 11/06/18 10:38 < 2.0 mg/dL (<2.0) 11/06/18 10:38 Ur Leukocyte Esterase Neg (Negative) 11/06/18 10:38 < 1.0 /HPF (0.0-6.0) 11/06/18 10:38 2.0 /HPF (0.0-6.0) 11/06/18 10:38 U Epithel Cells (Auto) < 1.0 /HPF (0-13.0) 11/06/18 10:38 Random Vancomycin 13.2 ug/mL (0-40.0) 11/08/18 04:23 Salicylates < 0.3 mg/dL (2.8-20.0) L 11/06/18 09:02 Presumptive negative 11/06/18 10:38 Presumptive negative 11/06/18 10:38 Acetaminophen < 5.0 ug/mL (10.0-30.0) L 11/06/18 09:02 Ur Barbiturates Screen Presumptive negative 11/06/18 10:38 Ur Phencyclidine Scrn Presumptive negative 11/06/18 10:38 Ur Amphetamines Screen Presumptive negative 11/06/18 10:38 U Benzodiazepines Scrn Presumptive negative 11/06/18 10:38 Presumptive negative 11/06/18 10:38 U Marijuana (THC) Screen Presumptive positive 11/06/18 10:38 Disclamer 11/06/18 10:38 Plasma/Serum Alcohol < 0.01 % (0-0.07) 11/06/18 09:02 Hepatitis A IgM Ab Non-reactive (NonReactive) 11/07/18 13:20 Hep Bs Antigen Non-reactive (Negative) 11/07/18 13:20 Hep B Core IgM Ab Non-reactive (NonReactive) 11/07/18 13:20 Non-reactive (NonReactive) 11/07/18 13:20 Blood Type A POSITIVE 11/06/18 14:15 Antibody Screen Not Reportable 11/06/18 14:15 JANIS Antibody Screen Negative 11/06/18 14:15 Active Medications - Current Medications Current Medications: Generic Name Dose Route Start Last Admin Trade Name Freq PRN Reason Stop Dose Admin Acetaminophen 650 mg 11/06/18 22:22 11/06/18 22:33 Tylenol FEEDTUBE 650 mg Q6H PRN Administration Fever >101 Lipase/Protease/Amylase 1 each 11/08/18 18:38 Pancreaze 10,500 Unit FEEDTUBE PRN PRN For Clogged Feeding Tube Chlorpromazine HCl 10 mg 11/07/18 08:07 11/08/18 21:59 Thorazine PO 10 mg Q6H PRN Administration Hiccups Dextrose 50 ml 11/07/18 16:46 D50w (25gm) Syringe IV PRN PRN Hypoglycemia Fentanyl 50 mcg 11/06/18 08:37 Sublimaze IV Q10MIN PRN ANALGESIA Hydralazine HCl 10 mg 11/08/18 00:56 11/08/18 01:35 Apresoline IV 10 mg Q4H PRN Administration Hypertension Hydrophilic Ointment 1 applic 11/06/18 08:26 Vaseline Lip Therapy TP Q2HR PRN Dry Lips Fentanyl Citrate 2,000 mcg in 100 mls @ 4.309 mls/hr 11/06/18 10:00 11/08/18 21:59 Fentanyl Drip Premix IV 1 mcg/kg/hr TITR MARIAJOSE 4.309 mls/hr Administration Protocol 1 MCG/KG/HR Norepinephrine 4 mg in 250 mls @ 7.5 mls/hr 11/06/18 16:00 11/07/18 05:50 Levophed Drip 4 Mg/Ns 250 Ml IV 0 mcg/min TITR MARIAJOSE 0 mls/hr Titration Protocol 2 MCG/MIN Piperacillin Sod/Tazobactam Sod 2.25 gm in 50 mls @ 100 mls/hr 11/06/18 22:00 11/09/18 06:13 Zosyn/Ns 2.25 Gm/50ml IV 100 mls/hr Q8HR MARIAJOSE Administration Protocol Levetiracetam 1,000 mg/ 110 mls @ 412.5 mls/hr 11/09/18 10:00 Dextrose IV 11/09/18 23:59 Q12HR [facility] Insulin Human Isoph/Insulin Regular 20 unit 11/07/18 18:00 11/09/18 00:39 Humulin 70/30 SUB-Q 12 unit BIDDIAB [facility] Administration Insulin Human Regular 0 units 11/07/18 18:00 11/09/18 05:30 Humulin R SUB-Q Not Given Q6HR [facility] Protocol Lansoprazole 30 mg 11/09/18 10:00 Prevacid Solutab FEEDTUBE BID [facility] Levetiracetam 1,000 mg 11/10/18 10:00 Keppra PO BID [facility] Multi-Ingred Cream/Lotion/Oil/Oint 1 applic 11/06/18 08:26 Artificial Tears Ophth Oint OU Q4HR PRN Dry Eye(s) Simple Syrup 15 ml 11/08/18 18:38 Simple Syrup FEEDTUBE PRN PRN Hypoglycemia Simple Syrup 30 ml 11/08/18 18:38 Simple Syrup FEEDTUBE PRN PRN Hypoglycemia Sodium Bicarbonate 325 mg 11/08/18 18:38 Sodium Bicarbonate FEEDTUBE PRN PRN For Clogged Feeding Tube Sodium Chloride 10 ml 11/06/18 22:00 11/08/18 21:18 Sodium Chloride Flush Syringe 10 Ml IV 10 ml BID MARIAJOSE Administration Sodium Chloride 10 ml 11/06/18 12:42 Sodium Chloride Flush Syringe 10 Ml IV PRN PRN LINE FLUSH Nutrition/Malnutrition Assess - Dietary Evaluation Nutrition/Malnutrition Findings: Nutrition Notes Start: 11/07/18 14:40 Freq: Status: Active Protocol: Document 11/07/18 14:41 RM (Rec: 11/07/18 14:51 RM [id number]) Nutrition Notes Need for Assessment generated from: MD Order Initial or Follow up Assessment Current Diagnosis Acute Kidney Injury,Diabetes Other Pertinent Diagnosis ESRD on HD, PAD, Anoxic brain injury, Cardiopulmonary arrest Current Diet No diet ordered Labs/Tests Na 153 Pertinent Medications Reviewed Height 6 ft 2 in Weight 86.183 kg [place] Body Weight (kg) 86.36 BMI 24.3 Subjective/Other Information Consulted for evaluate nutritional intake. Pt on vent. Burn Absent Trauma Absent #1 Nutrition Diagnosis Inadequate oral intake Etiology on vent As Evidenced by Signs and Symptoms no diet ordered Is patient on ventilator? Yes Is Patient Ambulatory and/or Out of Bed No REE-([facility]-confined to bed) [phone] Calculation Used for Recommendations [facility] Additional Notes Protein Needs: 103-172g (1.2- 2g/kg) Fluid Needs: 1 ml/kcal Nutrition Intervention Change Diet Order: TF consult Nutrition Support: Once consulted Glucerna 1.2 at 75 ml/hr Water flush of 200 mls q 4 hrs until hypernatremia resolves. Water flush of 120 mls q 4 hrs once hypernatremia resolves. Kcal 2,160 Protein (gm) 108 Fluid (mL) 1,449 Goal #1 TF consult Anticipated Discharge Needs: Unable to determine at this time Follow-Up By: 11/10/18 Additional Comments Follow for TF consult
--- NOTE | 2018-11-09 09:56 | Progress Note ---
Assessment and Plan Acute Kidney Injury secondary to ischemic ATN from hypotension, cardiac arrest, in setting of underlying hx CKD 4: Severe Renal Failure, requiring hemodialysis initiation: S/P High Anion Gap Metabolic Acidosis with elevated lactic acidosis with DKA: S/P Hyperkalemia: S/P Hyperphosphatemia: Hypernatremia: Hypokalemia, Resolving: - Renal function reviewed, SCr level is 7.7 today, yesterday was 6.3. GFR 9 ml/min. - We will hemodialyze patient today for clearance only, using his Left AVF with 17 gauge needles - UOP was 1500 ml last 24 hours and had 700 ml output since 6 a.m this morning per RN - Strict monitoring of I/O's - CXR today-No infiltrates or effusion - Hypernatremia- No UF with HD today. Start free water flushes of 250 ml every 4 hours via NG tube - Monitor BMP daily - Renally dose medications - Avoid Nephrotoxic agents - Obtain daily weights - Salgado Catheter: Yes - Assess dialysis needs daily - Renal plan formulated with Dr. Marti S/p Cardiopulmonary arrest. STEMI: -S/P CPR and ACLS protocol -Now off pressor support -Cardiology on board 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 per neurology -On IV Keppra -As per Neurology Subjective Date of service: 11/09/18 Principal diagnosis: Ac hypoxemic resp failure; DKA; Severe sepsis with shock; ESRD on dialysis Interval history: Patient seen lying in bed, remains intubated and unresponsive. No family at bedside. Objective - Vital Signs Vital signs: Vital Signs - 12hr 11/08/18 11/08/18 11/08/18 22:00 22:01 22:31 Temperature Pulse Rate 108 H 152 H 112 H Pulse Rate [ From Monitor] Respiratory 26 H 20 Rate Respiratory 39 H Rate [ Generalized] Blood Pressure 162/87 184/108 O2 Sat by Pulse 100 100 Oximetry 11/08/18 11/08/18 11/08/18 23:00 23:15 23:31 Temperature Pulse Rate 108 H 105 H 102 H Pulse Rate [ From Monitor] Respiratory 20 20 20 Rate Respiratory Rate [ Generalized] Blood Pressure 132/75 134/73 134/73 O2 Sat by Pulse 97 100 100 Oximetry 11/08/18 11/08/18 11/09/18 23:47 23:55 00:00 Temperature 100.9 F H Pulse Rate 100 H Pulse Rate [ 98 H From Monitor] Respiratory 19 Rate Respiratory Rate [ Generalized] Blood Pressure 134/73 O2 Sat by Pulse 100 98 Oximetry 11/09/18 11/09/18 11/09/18 00:01 00:31 01:01 Temperature Pulse Rate 98 H 99 H 99 H Pulse Rate [ From Monitor] Respiratory 19 21 17 Rate Respiratory Rate [ Generalized] Blood Pressure 157/84 157/84 157/90 O2 Sat by Pulse 98 100 99 Oximetry 11/09/18 11/09/18 11/09/18 01:31 02:01 02:31 Temperature Pulse Rate 102 H 101 H 100 H Pulse Rate [ From Monitor] Respiratory 21 21 22 Rate Respiratory Rate [ Generalized] Blood Pressure 157/90 155/87 155/87 O2 Sat by Pulse 100 98 100 Oximetry 11/09/18 11/09/18 11/09/18 03:01 03:30 03:48 Temperature Pulse Rate 100 H 99 H 99 H Pulse Rate [ From Monitor] Respiratory 23 24 Rate Respiratory Rate [ Generalized] Blood Pressure 153/89 153/89 153/89 O2 Sat by Pulse 99 100 100 Oximetry 11/09/18 11/09/18 11/09/18 04:00 04:01 04:31 Temperature 99.8 F H Pulse Rate 101 H 101 H Pulse Rate [ 101 H From Monitor] Respiratory 25 H 25 H 25 H Rate Respiratory Rate [ Generalized] Blood Pressure 153/79 153/79 O2 Sat by Pulse 98 98 100 Oximetry 11/09/18 11/09/18 11/09/18 05:01 05:31 06:00 Temperature Pulse Rate 98 H 105 H 100 H Pulse Rate [ From Monitor] Respiratory 26 H 19 24 Rate Respiratory Rate [ Generalized] Blood Pressure 143/87 143/87 144/97 O2 Sat by Pulse 99 100 98 Oximetry 11/09/18 11/09/18 08:37 08:50 Temperature Pulse Rate 98 H 96 H Pulse Rate [ From Monitor] Respiratory 11 L Rate Respiratory Rate [ Generalized] Blood Pressure 153/69 160/88 O2 Sat by Pulse 100 100 Oximetry - General Appearance General appearance: well-developed, sedated on ventilator, intubated EENT: ATNC, PERRL Neck: no JVD, supple Respiratory: Present: Decreased Breath Sounds Cardiology: tachycardia, S1S2 Gastrointestinal: normoactive bowel sounds Integumentary: warm and dry Neurologic: alert and oriented x3 Musculoskeletal: other (trace edema to feet) - Lab 11/09/18 06:02 11/09/18 06:02 Most recent lab results Calcium 7.2 mg/dL (8.4-10.2) L 11/09/18 06:02 Phosphorus 2.50 mg/dL (2.5-4.5) 11/08/18 04:23 Magnesium 2.60 mg/dL (1.7-2.3) H 11/06/18 14:15 Medications & Allergies - Medications Allergies/Adverse Reactions: Allergies No Known Allergies Allergy (Verified 03/17/18 11:54) Home Medications: Home Medications Medication Instructions Recorded Confirmed Last Taken Type Esomeprazole Magnesium [NexIUM] 20 mg PO QDAY #30 suspdr.pkt 03/17/18 11/07/18 Unknown Rx HYDROcodone/APAP 5-325 [[place] 1 each PO Q6HR PRN #15 tablet 03/17/18 11/07/18 Unknown Rx 5/325] Metoclopramide [Reglan] 10 mg PO TID #21 tab 03/17/18 11/07/18 Unknown Rx Ondansetron [Zofran Odt] 4 mg PO Q4HR PRN #20 tab.rapdis 03/17/18 11/07/18 Unknown Rx Active Medications: Generic Name Dose Route Start Last Admin Trade Name Freq PRN Reason Stop Dose Admin Acetaminophen 650 mg 11/06/18 22:22 11/06/18 22:33 Tylenol FEEDTUBE 650 mg Q6H PRN Administration Fever >101 Lipase/Protease/Amylase 1 each 11/08/18 18:38 Pancreazraji [place] 10,500 Unit FEEDTUBE PRN PRN For Clogged Feeding Tube Chlorpromazine HCl 10 mg 11/07/18 08:07 11/08/18 21:59 Thorazine PO 10 mg Q6H PRN Administration Hiccups Dextrose 50 ml 11/07/18 16:46 D50w (25gm) Syringe IV PRN PRN Hypoglycemia Fentanyl 50 mcg 11/06/18 08:37 Sublimaze IV Q10MIN PRN ANALGESIA Hydralazine HCl 10 mg 11/08/18 00:56 11/08/18 01:35 Apresoline IV 10 mg Q4H PRN Administration Hypertension Hydrophilic Ointment 1 applic 11/06/18 08:26 Vaseline Lip Therapy TP Q2HR PRN Dry Lips Fentanyl Citrate 2,000 mcg in 100 mls @ 4.309 mls/hr 11/06/18 10:00 11/08/18 21:59 Fentanyl Drip Premix IV 1 mcg/kg/hr TITR MARIAJOSE 4.309 mls/hr Administration Protocol 1 MCG/KG/HR Norepinephrine 4 mg in 250 mls @ 7.5 mls/hr 11/06/18 16:00 11/07/18 05:50 Levophed Drip 4 Mg/Ns 250 Ml IV 0 mcg/min TITR MARIAJOSE 0 mls/hr Titration Protocol 2 MCG/MIN Piperacillin Sod/Tazobactam Sod 2.25 gm in 50 mls @ 100 mls/hr 11/06/18 22:00 11/09/18 06:13 Zosyn/Ns 2.25 Gm/50ml IV 100 mls/hr Q8HR MARIAJOSE Administration Protocol Levetiracetam 1,000 mg/ 110 mls @ 412.5 mls/hr 11/09/18 10:00 Dextrose IV 11/09/18 23:59 Q12HR [facility] Insulin Human Isoph/Insulin Regular 20 unit 11/07/18 18:00 11/09/18 00:39 Humulin 70/30 SUB-Q 12 unit BIDDIAB [facility] Administration Insulin Human Regular 0 units 11/07/18 18:00 11/09/18 05:30 Humulin R SUB-Q Not Given Q6HR [facility] Protocol Lansoprazole 30 mg 11/09/18 10:00 Prevacid Solutab FEEDTUBE BID [facility] Levetiracetam 1,000 mg 11/10/18 10:00 Keppra PO BID [facility] Multi-Ingred Cream/Lotion/Oil/Oint 1 applic 11/06/18 08:26 Artificial Tears Ophth Oint OU Q4HR PRN Dry Eye(s) Simple Syrup 15 ml 11/08/18 18:38 Simple Syrup FEEDTUBE PRN PRN Hypoglycemia Simple Syrup 30 ml 11/08/18 18:38 Simple Syrup FEEDTUBE PRN PRN Hypoglycemia Sodium Bicarbonate 325 mg 11/08/18 18:38 Sodium Bicarbonate FEEDTUBE PRN PRN For Clogged Feeding Tube Sodium Chloride 10 ml 11/06/18 22:00 11/08/18 21:18 Sodium Chloride Flush Syringe 10 Ml IV 10 ml BID MARIAJOSE Administration Sodium Chloride 10 ml 11/06/18 12:42 Sodium Chloride Flush Syringe 10 Ml IV PRN PRN LINE FLUSH
[2018-11-09] MEDS ORDERED: KEPPRA 1,000 MG/NS 0.75% 100ML 1,000 MG/100 ML BAG IV SCH (10:00)
--- NOTE | 2018-11-09 11:49 | Progress Note ---
Assessment and Plan Await echo. Continue supportive measures. Overall poor prognosis. The patient has been seen in conjunction with Dr. Loving who agrees with the assessment and plan of care. - Patient Problems (1) Cardiopulmonary arrest Current Visit: Yes Status: Acute (2) DKA (diabetic ketoacidoses) Current Visit: Yes Status: Acute Qualifiers: Diabetes mellitus type: type 2 Diabetes mellitus complication detail: with coma Qualified Code(s): E11.11 - Type 2 diabetes mellitus with ketoacidosis with coma (3) Metabolic acidosis Current Visit: Yes Status: Acute (4) Anoxic brain injury Current Visit: Yes Status: Suspected (5) ESRD (end stage renal disease) on dialysis Current Visit: Yes Status: Chronic (6) Anemia Current Visit: Yes Status: Acute (7) Thrombocytopenia Current Visit: Yes Status: Acute (8) PAD (peripheral artery disease) Current Visit: Yes Status: Chronic (9) History of seizures Current Visit: Yes Status: Chronic (10) Tobacco use Current Visit: Yes Status: Chronic Subjective Date of service: 11/09/18 Principal diagnosis: Ac hypoxemic resp failure; DKA; Severe sepsis with shock; ESRD on dialysis Interval history: pt remains intubated, nonresponsive, receiving HD. no family at bedside. Objective Last Vital Signs Temp 98.7 F 11/09/18 09:30 Pulse 95 H 11/09/18 10:30 Resp 10 L 11/09/18 09:30 BP 151/87 11/09/18 10:30 Pulse Ox 100 11/09/18 09:30 - Physical Examination General: Other (intubated, unresponsive) HEENT: Positive: Other (patient is intubated. Not responsive. Not on any IV sedation. Pupils are fixed and dilated.) Cardiac: Positive: Reg Rate and Rhythm, S1/S2 Lungs: Positive: Decreased Breath Sounds, Oxygen, Ventilated Respirations Abdomen: Positive: Unremarkable, Soft, Active Bowel Sounds Extremities: Present: Cool. Absent: edema - Labs and Meds Cardiac Enzymes 11/09/18 Range/Units 06:02 AST 554 H (5-40) units/L CBC 11/09/18 Range/Units 06:02 WBC 9.8 (4.5-11.0) K/mm3 RBC 2.95 L (3.65-5.03) M/mm3 Hgb 9.2 L (11.8-15.2) gm/dl Hct 26.7 L (35.5-45.6) % Plt Count 101 L (140-440) K/mm3 Comprehensive Metabolic Panel 11/09/18 Range/Units 06:02 Sodium 150 H (137-145) mmol/L Potassium 3.6 (3.6-5.0) mmol/L Chloride 108.3 H (98-107) mmol/L Carbon Dioxide 27 (22-30) mmol/L BUN 44 H (9-20) mg/dL Creatinine 7.7 H (0.8-1.5) mg/dL Glucose 102 H (75-100) mg/dL Calcium 7.2 L (8.4-10.2) mg/dL AST 554 H (5-40) units/L ALT 461 H (7-56) units/L Alkaline Phosphatase 120 (35-129) units/L Total Protein 5.1 L (6.3-8.2) g/dL Albumin 2.6 L (3.9-5) g/dL - Imaging and Cardiology EKG: report reviewed, image reviewed Echo: pending - Telemetry EKG Rhythm: Sinus Rhythm - EKG Sinus rhythms and dysrhythmias: sinus arrest or pause Ventricular dysrhythmias: idioventricular escape rh AV and intraventricular conduction: intraventricular conducti Repolarization changes or abnormalities: Suggestive of hyperkalemia (wide QRS complexes and ST depression evaluation probably all due to severe hyperkalemia. The last EKG does not show any ST elevation but continues to show peaked T waves.)
--- NOTE | 2018-11-09 12:39 | Progress Note ---
Assessment and Plan Acute hypoxemic respiratory failure, on mechanical ventilator support. Diabetic ketoacidosis. Severe metabolic acidosis. Severe sepsis with shock. Acute encephalopathy that appears to be toxic metabolic. End-stage renal disease, on dialysis. Hyperkalemia at presentation. Diabetes. Peripheral vascular disease. Anemia that is macrocytic. Elevated serum transaminases, likely representing shock liver. Mild hyponatremia, pseudohyponatremia actually. Lactic acidosis. (AMS is currently a rate limiting factor to safe extubation and he will likely need a tracheostomy) - discontinue ramirez catheter at this point - repeat lactate level - stop AB's after 5 days of negative blood cultures - will repeat EEG and depending on prognosis per neurology will decide on early vs late tracheostomy - consider Provigil - continue daily SAT's and SBT assessment in am as tolerated - prn sedation target for RASS 0 to -1 - wean off vasopressors for MAP > 65 mmHg (off now) - continue to wean supplemental oxygen to keep O2 sats > 90% - continue empiric AB's for now (de-escalate based on clinical and radiologic d jerome) - continue bronchodilators with pulmonary hygiene per RT - Lung protective strategies - VAP bundle addressed - HD/UF as tolerated for toxin and volume clearance - neurology evaluation ongoing - Monitor renal indices closely - continue to avoid nephrotoxic agents, adjust all medications for CrCL - Strict intake and output monitoring - continue enteral nutrition as tolerated - continue accuchecks with glycemic control per SSI for target glucose of 140- 180 mg/dL - Maintenance of sleep -wake cycle - Mobility protocol for pressure ulcer prophylaxis - continue GI & VTE prophylaxis - Influenza and pneumonia vaccination per protocol PROGNOSIS: GUARDED CONDITION: CRITICAL CODE STATUS: FULL CODE The high probability of a clinically significant, sudden or life-threatening deterioration of the [respiratory, neurology, renal] system(s) required my full and direct attention, intervention and personal management. The aggregate critical care time was [34] minutes without overlap. Time includes spent on; [x] Data Review and interpretation [x] Patient assessment and monitoring of vital signs [x] Documentation [x] Medication orders and management Subjective Date of service: 11/09/18 Principal diagnosis: Ac hypoxemic resp failure; DKA; Severe sepsis with shock; ESRD on dialysis Interval history: Patient is seen today for: Acute hypoxemic respiratory failure on MVS; DKA; Severe metabolic acidosis; Severe sepsis with shock; Acute encephalopathy that appears to be toxic metabolic; ESRD on dialysis; DM II; Peripheral vascular disease. Seen and examined at bedside; 24hour events reviewed; nursing and respiratory care staff consulted; no adverse overnight events reported to me; remains on MVS; AMS is persistent; with intermittent myoclonic type jerks; discussed care paln at length with his mother; no emesis or overt aspiration and tolerating tube feeds; keppra increased to bid dosing s/p breakthrough seizure; remains on empiric AB's Objective Vital Signs - 12hr 11/09/18 11/09/18 11/09/18 01:01 01:31 02:01 Temperature Pulse Rate 99 H 102 H 101 H Pulse Rate [ From Monitor] Respiratory 17 21 21 Rate Blood Pressure 157/90 157/90 155/87 O2 Sat by Pulse 99 100 98 Oximetry O2 Sat by Pulse Oximetry [ Anterior Bilateral Throughout] 11/09/18 11/09/18 11/09/18 02:31 03:01 03:30 Temperature Pulse Rate 100 H 100 H 99 H Pulse Rate [ From Monitor] Respiratory 22 23 24 Rate Blood Pressure 155/87 153/89 153/89 O2 Sat by Pulse 100 99 100 Oximetry O2 Sat by Pulse Oximetry [ Anterior Bilateral Throughout] 11/09/18 11/09/18 11/09/18 03:48 04:00 04:01 Temperature 99.8 F H Pulse Rate 99 H 101 H Pulse Rate [ 101 H From Monitor] Respiratory 25 H 25 H Rate Blood Pressure 153/89 153/79 O2 Sat by Pulse 100 98 98 Oximetry O2 Sat by Pulse Oximetry [ Anterior Bilateral Throughout] 11/09/18 11/09/18 11/09/18 04:31 05:01 05:31 Temperature Pulse Rate 101 H 98 H 105 H Pulse Rate [ From Monitor] Respiratory 25 H 26 H 19 Rate Blood Pressure 153/79 143/87 143/87 O2 Sat by Pulse 100 99 100 Oximetry O2 Sat by Pulse Oximetry [ Anterior Bilateral Throughout] 11/09/18 11/09/18 11/09/18 06:00 08:37 08:50 Temperature Pulse Rate 100 H 98 H 96 H Pulse Rate [ From Monitor] Respiratory 24 11 L Rate Blood Pressure 144/97 153/69 160/88 O2 Sat by Pulse 98 100 100 Oximetry O2 Sat by Pulse Oximetry [ Anterior Bilateral Throughout] 11/09/18 11/09/18 11/09/18 09:30 09:45 10:00 Temperature 98.7 F Pulse Rate 96 H 93 H 96 H Pulse Rate [ From Monitor] Respiratory 10 L Rate Blood Pressure 160/88 155/89 147/86 O2 Sat by Pulse Oximetry O2 Sat by Pulse 100 Oximetry [ Anterior Bilateral Throughout] 11/09/18 11/09/18 11/09/18 10:15 10:30 10:45 Temperature Pulse Rate 93 H 95 H 95 H Pulse Rate [ From Monitor] Respiratory Rate Blood Pressure 143/84 151/87 148/87 O2 Sat by Pulse Oximetry O2 Sat by Pulse Oximetry [ Anterior Bilateral Throughout] 11/09/18 11/09/18 11/09/18 11:00 11:15 11:30 Temperature Pulse Rate 94 H 97 H 92 H Pulse Rate [ From Monitor] Respiratory Rate Blood Pressure 161/91 146/85 146/86 O2 Sat by Pulse Oximetry O2 Sat by Pulse Oximetry [ Anterior Bilateral Throughout] 11/09/18 11/09/18 11/09/18 11:45 12:00 12:15 Temperature Pulse Rate 96 H 92 H 103 H Pulse Rate [ From Monitor] Respiratory Rate Blood Pressure 147/96 150/105 179/99 O2 Sat by Pulse Oximetry O2 Sat by Pulse Oximetry [ Anterior Bilateral Throughout] 11/09/18 12:30 Temperature Pulse Rate 105 H Pulse Rate [ From Monitor] Respiratory Rate Blood Pressure 179/92 O2 Sat by Pulse Oximetry O2 Sat by Pulse Oximetry [ Anterior Bilateral Throughout] Constitutional: appears uncomfortable, other (middle aged AAM, normocephalic and atraumatic on MVS) Eyes: non-icteric ENT: oropharynx moist, other (ETT 25 cm FITO) Neck: supple, no lymphadenopathy, no JVD Effort: mildly labored Ascultation: Bilateral: diminished breath sounds, rhonchi Percussion: Bilateral: not dull Cardiovascular: regular rate and rhythm Gastrointestinal: normoactive bowel sounds, soft, non-tender, non-distended Integumentary: rash Extremities: no cyanosis, no edema, pulses normal, no ischemia or petechiae Neurologic: pupils equal and round (minimally reactive), unable to assess, other (intermittent myoclonic type jerks) Psychiatric: other (unable to assess re: AMS) CBC and BMP: 11/10/18 05:00 11/10/18 05:00 ABG, PT/INR, D-dimer: ABG POC ABG pH 7.437 (7.35-7.45) 11/09/18 03:48 POC ABG pCO2 40.8 (35-45) 11/09/18 03:48 POC ABG pO2 108 (80-105) H 11/09/18 03:48 POC ABG HCO3 27.5 (22-26 mml/L) 11/09/18 03:48 POC ABG Total CO2 29 (23-27mmol/L) 11/09/18 03:48 POC ABG O2 Sat 98 11/09/18 03:48 Abnormal lab findings: Abnormal Labs 11/06/18 11/06/18 11/06/18 08:22 09:02 09:02 WBC 20.1 H RBC 3.40 L Hgb 10.5 L Hct MCV 119 H MCHC 26 L RDW 15.7 H Plt Count Lymph % (Auto) Lymph # Seg Neutrophils % 80.1 H Seg Neuts % (Manual) 76.0 H Lymphocytes % (Manual) 4.0 L Nucleated RBC % 1.0 H Seg Neutrophils # 16.1 H Seg Neutrophils # Man 15.3 H Lymphocytes # (Manual) 0.8 L POC ABG pH POC ABG pCO2 POC ABG pO2 VBG pH Sodium 129 L Potassium 7.7 H* Chloride 79.7 L Carbon Dioxide 4 L* BUN 93 H Creatinine 7.4 H Glucose 1469 H* POC Glucose > 500 H Lactic Acid Calcium Phosphorus Magnesium Direct Bilirubin AST 2679 H ALT 1175 H C-Reactive Protein Total Protein 6.1 L Albumin 2.9 L Salicylates Acetaminophen 11/06/18 11/06/18 11/06/18 09:02 09:02 09:02 WBC RBC Hgb Hct MCV MCHC RDW Plt Count Lymph % (Auto) Lymph # Seg Neutrophils % Seg Neuts % (Manual) Lymphocytes % (Manual) Nucleated RBC % Seg Neutrophils # Seg Neutrophils # Man Lymphocytes # (Manual) POC ABG pH POC ABG pCO2 POC ABG pO2 VBG pH Sodium Potassium Chloride Carbon Dioxide BUN Creatinine Glucose POC Glucose Lactic Acid 9.40 H* Calcium Phosphorus Magnesium Direct Bilirubin AST ALT C-Reactive Protein Total Protein Albumin Salicylates < 0.3 L Acetaminophen < 5.0 L 11/06/18 11/06/18 11/06/18 09:03 10:19 10:19 WBC RBC Hgb Hct MCV MCHC RDW Plt Count Lymph % (Auto) Lymph # Seg Neutrophils % Seg Neuts % (Manual) Lymphocytes % (Manual) Nucleated RBC % Seg Neutrophils # Seg Neutrophils # Man Lymphocytes # (Manual) POC ABG pH 6.841 L POC ABG pCO2 POC ABG pO2 VBG pH Sodium 131 L Potassium 8.9 H* Chloride 85.3 L Carbon Dioxide 6 L* BUN 90 H Creatinine 7.1 H Glucose 1353 H* POC Glucose Lactic Acid Calcium 7.8 L Phosphorus 14.50 H Magnesium 2.70 H Direct Bilirubin AST ALT C-Reactive Protein Total Protein Albumin Salicylates Acetaminophen 11/06/18 11/06/18 11/06/18 12:07 13:22 13:22 WBC RBC Hgb Hct MCV MCHC RDW Plt Count Lymph % (Auto) Lymph # Seg Neutrophils % Seg Neuts % (Manual) Lymphocytes % (Manual) Nucleated RBC % Seg Neutrophils # Seg Neutrophils # Man Lymphocytes # (Manual) POC ABG pH POC ABG pCO2 POC ABG pO2 VBG pH 6.982 L* Sodium 135 L Potassium 7.0 H* D Chloride 88.4 L Carbon Dioxide 5 L* BUN 89 H Creatinine 7.2 H Glucose 1326 H* POC Glucose Lactic Acid 8.50 H* Calcium Phosphorus Magnesium Direct Bilirubin AST ALT C-Reactive Protein Total Protein Albumin Salicylates Acetaminophen 11/06/18 11/06/18 11/06/18 14:15 14:15 15:21 WBC RBC Hgb Hct MCV MCHC RDW Plt Count Lymph % (Auto) Lymph # Seg Neutrophils % Seg Neuts % (Manual) Lymphocytes % (Manual) Nucleated RBC % Seg Neutrophils # Seg Neutrophils # Man Lymphocytes # (Manual) POC ABG pH POC ABG pCO2 POC ABG pO2 VBG pH Sodium Potassium 6.6 H* 6.0 H Chloride 95.3 L 93.3 L Carbon Dioxide 4 L* 6 L* BUN 83 H 91 H Creatinine 6.9 H 7.3 H Glucose 1205 H* 1174 H* POC Glucose Lactic Acid Calcium 8.2 L Phosphorus 13.00 H Magnesium 2.60 H Direct Bilirubin AST ALT C-Reactive Protein Total Protein Albumin Salicylates Acetaminophen 11/06/18 11/06/18 11/06/18 15:21 16:14 16:33 WBC RBC Hgb Hct MCV MCHC RDW Plt Count Lymph % (Auto) Lymph # Seg Neutrophils % Seg Neuts % (Manual) Lymphocytes % (Manual) Nucleated RBC % Seg Neutrophils # Seg Neutrophils # Man Lymphocytes # (Manual) POC ABG pH 7.004 L POC ABG pCO2 33.0 L POC ABG pO2 178 H VBG pH Sodium Potassium Chloride Carbon Dioxide BUN Creatinine Glucose POC Glucose > 500 H Lactic Acid 7.60 H* Calcium Phosphorus Magnesium Direct Bilirubin AST ALT C-Reactive Protein Total Protein Albumin Salicylates Acetaminophen 11/06/18 11/06/18 11/06/18 17:34 19:30 19:30 WBC RBC Hgb Hct MCV MCHC RDW Plt Count Lymph % (Auto) Lymph # Seg Neutrophils % Seg Neuts % (Manual) Lymphocytes % (Manual) Nucleated RBC % Seg Neutrophils # Seg Neutrophils # Man Lymphocytes # (Manual) POC ABG pH POC ABG pCO2 POC ABG pO2 VBG pH Sodium Potassium 5.5 H Chloride 97.4 L 97.7 L Carbon Dioxide 10 L 11 L BUN 88 H 87 H Creatinine 7.5 H 7.6 H Glucose 1054 H* 954 H* POC Glucose Lactic Acid Calcium 7.7 L 7.4 L Phosphorus Magnesium Direct Bilirubin AST ALT C-Reactive Protein 1.90 H Total Protein Albumin Salicylates Acetaminophen 11/06/18 11/06/18 11/06/18 20:31 20:40 20:40 WBC RBC Hgb Hct MCV MCHC RDW Plt Count Lymph % (Auto) Lymph # Seg Neutrophils % Seg Neuts % (Manual) Lymphocytes % (Manual) Nucleated RBC % Seg Neutrophils # Seg Neutrophils # Man Lymphocytes # (Manual) POC ABG pH 7.245 L POC ABG pCO2 POC ABG pO2 132 H VBG pH Sodium Potassium Chloride Carbon Dioxide BUN Creatinine Glucose 907 H* POC Glucose Lactic Acid 4.40 H* Calcium Phosphorus Magnesium Direct Bilirubin AST ALT C-Reactive Protein Total Protein Albumin Salicylates Acetaminophen 11/06/18 11/06/18 11/06/18 22:05 22:40 23:35 WBC RBC Hgb Hct MCV MCHC RDW Plt Count Lymph % (Auto) Lymph # Seg Neutrophils % Seg Neuts % (Manual) Lymphocytes % (Manual) Nucleated RBC % Seg Neutrophils # Seg Neutrophils # Man Lymphocytes # (Manual) POC ABG pH POC ABG pCO2 POC ABG pO2 VBG pH Sodium Potassium Chloride Carbon Dioxide 13 L BUN 86 H Creatinine 7.8 H Glucose 822 H* 726 H* POC Glucose Lactic Acid 3.40 H* Calcium 7.5 L Phosphorus Magnesium Direct Bilirubin AST ALT C-Reactive Protein Total Protein Albumin Salicylates Acetaminophen 11/07/18 11/07/18 11/07/18 01:25 01:26 03:15 WBC RBC Hgb Hct MCV MCHC RDW Plt Count Lymph % (Auto) Lymph # Seg Neutrophils % Seg Neuts % (Manual) Lymphocytes % (Manual) Nucleated RBC % Seg Neutrophils # Seg Neutrophils # Man Lymphocytes # (Manual) POC ABG pH POC ABG pCO2 POC ABG pO2 VBG pH Sodium Potassium Chloride Carbon Dioxide BUN Creatinine Glucose 602 H* POC Glucose > 500 H > 500 H Lactic Acid Calcium Phosphorus Magnesium Direct Bilirubin AST ALT C-Reactive Protein Total Protein Albumin Salicylates Acetaminophen 11/07/18 11/07/18 11/07/18 03:20 04:32 04:47 WBC RBC Hgb Hct MCV MCHC RDW Plt Count Lymph % (Auto) Lymph # Seg Neutrophils % Seg Neuts % (Manual) Lymphocytes % (Manual) Nucleated RBC % Seg Neutrophils # Seg Neutrophils # Man Lymphocytes # (Manual) POC ABG pH POC ABG pCO2 30.3 L POC ABG pO2 153 H VBG pH Sodium 149 H Potassium Chloride Carbon Dioxide 16 L BUN 86 H Creatinine 8.3 H Glucose 499.2 H POC Glucose 360 H Lactic Acid Calcium 7.6 L Phosphorus Magnesium Direct Bilirubin AST ALT C-Reactive Protein Total Protein Albumin Salicylates Acetaminophen 11/07/18 11/07/18 11/07/18 05:26 06:35 06:36 WBC RBC Hgb Hct MCV MCHC RDW Plt Count Lymph % (Auto) Lymph # Seg Neutrophils % Seg Neuts % (Manual) Lymphocytes % (Manual) Nucleated RBC % Seg Neutrophils # Seg Neutrophils # Man Lymphocytes # (Manual) POC ABG pH POC ABG pCO2 POC ABG pO2 VBG pH Sodium 153 H Potassium 3.2 L Chloride 109.7 H Carbon Dioxide BUN 84 H Creatinine 8.6 H Glucose 249 H POC Glucose 341 H 274 H Lactic Acid Calcium 7.6 L Phosphorus Magnesium Direct Bilirubin AST ALT C-Reactive Protein Total Protein Albumin Salicylates Acetaminophen 11/07/18 11/07/18 11/07/18 07:33 09:00 09:52 WBC RBC Hgb Hct MCV MCHC RDW Plt Count Lymph % (Auto) Lymph # Seg Neutrophils % Seg Neuts % (Manual) Lymphocytes % (Manual) Nucleated RBC % Seg Neutrophils # Seg Neutrophils # Man Lymphocytes # (Manual) POC ABG pH POC ABG pCO2 POC ABG pO2 VBG pH Sodium Potassium Chloride Carbon Dioxide BUN Creatinine Glucose POC Glucose 243 H 182 H 227 H Lactic Acid Calcium Phosphorus Magnesium Direct Bilirubin AST ALT C-Reactive Protein Total Protein Albumin Salicylates Acetaminophen 11/07/18 11/07/18 11/07/18 10:50 10:50 10:50 WBC 11.3 H RBC 2.85 L Hgb 8.7 L Hct 25.3 L D MCV MCHC RDW Plt Count Lymph % (Auto) 9.7 L Lymph # 1.1 L Seg Neutrophils % 83.3 H Seg Neuts % (Manual) Lymphocytes % (Manual) Nucleated RBC % Seg Neutrophils # 9.4 H Seg Neutrophils # Man Lymphocytes # (Manual) POC ABG pH POC ABG pCO2 POC ABG pO2 VBG pH Sodium 154 H Potassium 3.2 L Chloride 110.2 H Carbon Dioxide BUN 82 H Creatinine 8.3 H Glucose 186 H POC Glucose 200 H Lactic Acid Calcium 7.3 L Phosphorus Magnesium Direct Bilirubin AST ALT C-Reactive Protein Total Protein Albumin Salicylates Acetaminophen 11/07/18 11/07/18 11/07/18 12:00 12:05 13:13 WBC RBC Hgb Hct MCV MCHC RDW Plt Count Lymph % (Auto) Lymph # Seg Neutrophils % Seg Neuts % (Manual) Lymphocytes % (Manual) Nucleated RBC % Seg Neutrophils # Seg Neutrophils # Man Lymphocytes # (Manual) POC ABG pH POC ABG pCO2 POC ABG pO2 VBG pH Sodium Potassium Chloride Carbon Dioxide BUN Creatinine Glucose POC Glucose 179 H 190 H Lactic Acid 2.50 H* Calcium Phosphorus Magnesium Direct Bilirubin AST ALT C-Reactive Protein Total Protein Albumin Salicylates Acetaminophen 11/07/18 11/07/18 11/07/18 13:20 14:05 15:18 WBC RBC Hgb Hct MCV MCHC RDW Plt Count Lymph % (Auto) Lymph # Seg Neutrophils % Seg Neuts % (Manual) Lymphocytes % (Manual) Nucleated RBC % Seg Neutrophils # Seg Neutrophils # Man Lymphocytes # (Manual) POC ABG pH POC ABG pCO2 POC ABG pO2 VBG pH Sodium Potassium 3.1 L Chloride Carbon Dioxide BUN 50 H Creatinine 5.0 H Glucose 176 H POC Glucose 189 H 215 H Lactic Acid Calcium 7.4 L Phosphorus Magnesium Direct Bilirubin AST ALT C-Reactive Protein Total Protein Albumin Salicylates Acetaminophen 11/07/18 11/07/18 11/07/18 16:25 17:37 23:23 WBC RBC Hgb Hct MCV MCHC RDW Plt Count Lymph % (Auto) Lymph # Seg Neutrophils % Seg Neuts % (Manual) Lymphocytes % (Manual) Nucleated RBC % Seg Neutrophils # Seg Neutrophils # Man Lymphocytes # (Manual) POC ABG pH POC ABG pCO2 POC ABG pO2 VBG pH Sodium Potassium Chloride Carbon Dioxide BUN Creatinine Glucose POC Glucose 180 H 215 H 234 H Lactic Acid Calcium Phosphorus Magnesium Direct Bilirubin AST ALT C-Reactive Protein Total Protein Albumin Salicylates Acetaminophen 11/08/18 11/08/18 11/08/18 04:17 04:23 04:23 WBC RBC 2.98 L Hgb 9.3 L Hct 26.7 L MCV MCHC 35 H RDW Plt Count 130 L Lymph % (Auto) Lymph # Seg Neutrophils % 80.3 H Seg Neuts % (Manual) Lymphocytes % (Manual) Nucleated RBC % Seg Neutrophils # 7.8 H Seg Neutrophils # Man Lymphocytes # (Manual) POC ABG pH 7.520 H POC ABG pCO2 POC ABG pO2 111 H VBG pH Sodium Potassium 3.0 L Chloride Carbon Dioxide BUN 44 H Creatinine 6.3 H Glucose 245 H POC Glucose Lactic Acid Calcium 7.3 L Phosphorus Magnesium Direct Bilirubin AST ALT C-Reactive Protein Total Protein Albumin Salicylates Acetaminophen 11/08/18 11/08/18 11/08/18 05:19 08:00 08:00 WBC RBC Hgb Hct MCV MCHC RDW Plt Count Lymph % (Auto) Lymph # Seg Neutrophils % Seg Neuts % (Manual) Lymphocytes % (Manual) Nucleated RBC % Seg Neutrophils # Seg Neutrophils # Man Lymphocytes # (Manual) POC ABG pH POC ABG pCO2 POC ABG pO2 VBG pH Sodium Potassium Chloride Carbon Dioxide BUN Creatinine Glucose POC Glucose 253 H Lactic Acid 2.70 H* Calcium Phosphorus Magnesium Direct Bilirubin 0.3 H AST 932 H ALT 582 H C-Reactive Protein Total Protein 5.4 L Albumin 2.6 L Salicylates Acetaminophen 11/08/18 11/08/18 11/08/18 11:36 17:51 23:28 WBC RBC Hgb Hct MCV MCHC RDW Plt Count Lymph % (Auto) Lymph # Seg Neutrophils % Seg Neuts % (Manual) Lymphocytes % (Manual) Nucleated RBC % Seg Neutrophils # Seg Neutrophils # Man Lymphocytes # (Manual) POC ABG pH 7.459 H POC ABG pCO2 POC ABG pO2 108 H VBG pH Sodium Potassium Chloride Carbon Dioxide BUN Creatinine Glucose POC Glucose 197 H 418 H Lactic Acid Calcium Phosphorus Magnesium Direct Bilirubin AST ALT C-Reactive Protein Total Protein Albumin Salicylates Acetaminophen 11/09/18 11/09/18 11/09/18 00:39 02:20 03:48 WBC RBC Hgb Hct MCV MCHC RDW Plt Count Lymph % (Auto) Lymph # Seg Neutrophils % Seg Neuts % (Manual) Lymphocytes % (Manual) Nucleated RBC % Seg Neutrophils # Seg Neutrophils # Man Lymphocytes # (Manual) POC ABG pH POC ABG pCO2 POC ABG pO2 108 H VBG pH Sodium Potassium Chloride Carbon Dioxide BUN Creatinine Glucose POC Glucose 471 H 254 H Lactic Acid Calcium Phosphorus Magnesium Direct Bilirubin AST ALT C-Reactive Protein Total Protein Albumin Salicylates Acetaminophen 11/09/18 11/09/18 06:02 06:02 WBC RBC 2.95 L Hgb 9.2 L Hct 26.7 L MCV MCHC RDW Plt Count 101 L Lymph % (Auto) Lymph # Seg Neutrophils % Seg Neuts % (Manual) Lymphocytes % (Manual) Nucleated RBC % Seg Neutrophils # Seg Neutrophils # Man Lymphocytes # (Manual) POC ABG pH POC ABG pCO2 POC ABG pO2 VBG pH Sodium 150 H Potassium Chloride 108.3 H Carbon Dioxide BUN 44 H Creatinine 7.7 H Glucose 102 H POC Glucose Lactic Acid Calcium 7.2 L Phosphorus Magnesium Direct Bilirubin AST 554 H ALT 461 H C-Reactive Protein Total Protein 5.1 L Albumin 2.6 L Salicylates Acetaminophen Allied health notes reviewed: nursing
[2018-11-09] MEDS: KEPPRA 1,000 MG in D5W 100 ML IV SCH ×2 (13:26→22:17)
[2018-11-09] MEDS: PREVACID SOLUTAB FEEDTUBE SCH ×2 (13:27→21:39)
[2018-11-09] MEDS: SODIUM CHLORIDE FLUSH SYRINGE 10 ML IV SCH ×2 (13:29→21:40)
[2018-11-09] MEDS ORDERED: NACL 0.9% 1000 ML 2,000 ML ONE (17:45)
[2018-11-09] MEDS: fentaNYL DRIP Premix 2,000 MCG/100 ML BAG IV SCH (19:15)
[2018-11-09] MEDS: THORAZINE PO PRN (21:39)
--- NOTE | 2018-11-10 05:09 | XRay Report ---
PROCEDURE: XR CHEST 1V AP TECHNIQUE: Chest radiograph single view. HISTORY: follow up respiratory failure COMPARISONS: 11/09/2018 . FINDINGS: Heart: Normal. Mediastinum/Vessels: Normal. Lungs/Pleural space: There are no infiltrates or effusions.. Bony thorax: No acute osseous abnormality. Life support devices: The ET tube and NG tube appear in good position.. IMPRESSION: No acute cardiopulmonary abnormality. Normal position of the ET tube and NG tube. This document is electronically signed by Lewis Saravia MD., November 10 2018 06:06:57 AM ET
[2018-11-10] MEDS: HumuLIN R SUB-Q SCH ×4 (05:35→23:39)
[2018-11-10] MEDS: ZOSYN/NS 2.25 GM/50ML 2.25 GM/50 ML BAG IV SCH ×3 (05:36→21:59)
[2018-11-10] MEDS: THORAZINE PO PRN (05:36)
[2018-11-10] MEDS: APRESOLINE IV PRN ×2 (05:36→12:11)
[2018-11-10 05:55] LABS: Calcium 7.3 mg/dL (8.4-10.2)
[2018-11-10 06:06] LABS: Hematocrit 26.6 % (35.5-45.6); Hemoglobin 8.9 gm/dl (11.8-15.2); Mean Corpuscular HGB Conc 34 % (32-34); Mean Corpuscular Volume 90 fl (84-94); Platelet Count 100 K/mm3 (140-440); Red Blood Count 2.95 M/mm3 (3.65-5.03); Red Cell Distribution Width 14.3 % (13.2-15.2)
[2018-11-10 07:42] LABS: Total Cells Counted 100
[2018-11-10 07:43] LABS: Anisocytosis 1+; Basophils % (Manual) 0 % (0.0-1.8); Hypochromasia 1+
[2018-11-10 07:44] LABS: Platelet Estimate Consistent w Auto
[2018-11-10] MEDS: KEPPRA PO SCH ×2 (09:01→21:59)
[2018-11-10] MEDS: PREVACID SOLUTAB FEEDTUBE SCH ×2 (09:01→21:59)
[2018-11-10] MEDS: SODIUM CHLORIDE FLUSH SYRINGE 10 ML IV SCH ×2 (09:01→23:40)
--- NOTE | 2018-11-10 10:23 | Progress Note ---
Assessment and Plan Acute Kidney Injury secondary to ischemic ATN from hypotension, cardiac arrest, in setting of underlying hx CKD 4: Severe Renal Failure, requiring hemodialysis initiation: S/P High Anion Gap Metabolic Acidosis with elevated lactic acidosis with DKA: S/P Hyperkalemia: S/P Hyperphosphatemia: Hypernatremia: Hypokalemia, Resolving: - s/p HD yesterday, HD again today with no UF. - UOP was 1500 ml last 24 hours and had 700 ml output since 6 a.m this morning per RN - Strict monitoring of I/O's - CXR today-No infiltrates or effusion - Hypernatremia- On free water flushes of 250 ml every 4 hours via NG tube - Monitor BMP daily - Renally dose medications - Avoid Nephrotoxic agents - Obtain daily weights - Salgado Catheter: Yes - Assess dialysis needs daily - Renal plan formulated with Dr. Marti S/p Cardiopulmonary arrest. STEMI: Hypoxic respiratory failure: -S/P CPR and ACLS protocol -Now off pressor support -Cardiology on board -Intubated on Vent. 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 per neurology -On IV Keppra -As per Neurology Plan d/w Family at bedside. Critical Care time: 36 minutes Bran Young MD [phone] Subjective Date of service: 11/10/18 Principal diagnosis: Ac hypoxemic resp failure; DKA; Severe sepsis with shock; ESRD on dialysis Interval history: Intubated on Vent. Tolerated HD yesterday. Objective - Exam Narrative Exam: General appearance: well-developed, sedated on ventilator, intubated EENT: ATNC, PERRL Neck: no JVD, supple Respiratory: Present: Decreased Breath Sounds Cardiology: tachycardia, S1S2 Gastrointestinal: normoactive bowel sounds Integumentary: warm and dry Neurologic: alert and oriented x3 Musculoskeletal: other (trace edema to feet) - Vital Signs Vital signs: Vital Signs - 12hr 11/09/18 11/09/18 11/09/18 22:34 22:54 23:01 Temperature 99 F Pulse Rate 101 H Respiratory 25 H 28 H Rate Blood Pressure 146/83 O2 Sat by Pulse 98 Oximetry 11/09/18 11/09/18 11/09/18 23:11 23:18 23:31 Temperature Pulse Rate 97 H 97 H 100 H Respiratory 26 H 26 H Rate Blood Pressure 146/83 153/85 O2 Sat by Pulse 100 98 Oximetry 11/09/18 11/10/18 11/10/18 23:32 00:01 00:31 Temperature Pulse Rate 98 H 99 H 101 H Respiratory 20 27 H 29 H Rate Blood Pressure 153/85 153/76 154/82 O2 Sat by Pulse 100 98 98 Oximetry 11/10/18 11/10/18 11/10/18 01:00 01:01 01:31 Temperature Pulse Rate 99 H 100 H Respiratory 25 H 29 H 30 H Rate Blood Pressure 153/76 143/80 O2 Sat by Pulse 100 98 Oximetry 11/10/18 11/10/18 11/10/18 02:01 02:31 03:01 Temperature Pulse Rate 99 H 101 H 107 H Respiratory 28 H 30 H 20 Rate Blood Pressure 147/79 145/79 160/89 O2 Sat by Pulse 98 98 98 Oximetry 11/10/18 11/10/18 11/10/18 03:21 03:31 04:00 Temperature 100.4 F H Pulse Rate 103 H 118 H Respiratory 20 25 H Rate Blood Pressure 156/84 149/86 O2 Sat by Pulse 98 100 Oximetry 11/10/18 11/10/18 11/10/18 04:01 04:31 05:01 Temperature Pulse Rate 101 H 108 H 109 H Respiratory 20 20 20 Rate Blood Pressure 149/86 170/92 172/100 O2 Sat by Pulse 98 97 99 Oximetry 11/10/18 11/10/18 11/10/18 05:31 05:36 06:01 Temperature Pulse Rate 108 H 106 H 112 H Respiratory 26 H 22 Rate Blood Pressure 172/90 172/90 137/53 O2 Sat by Pulse 98 100 Oximetry 11/10/18 11/10/18 11/10/18 06:31 07:01 07:31 Temperature Pulse Rate 104 H 100 H 112 H Respiratory 24 24 16 Rate Blood Pressure 141/105 133/72 133/72 O2 Sat by Pulse 98 97 100 Oximetry 11/10/18 11/10/18 11/10/18 08:00 08:01 08:31 Temperature 98.2 F Pulse Rate 98 H 100 H Respiratory 20 20 20 Rate Blood Pressure 117/64 148/80 O2 Sat by Pulse 100 98 98 Oximetry 11/10/18 11/10/18 11/10/18 09:01 09:31 10:00 Temperature Pulse Rate 95 H 94 H 100 H Respiratory 20 20 Rate Blood Pressure 138/75 141/75 O2 Sat by Pulse 98 98 Oximetry 11/10/18 10:01 Temperature Pulse Rate 91 H Respiratory 20 Rate Blood Pressure 110/59 O2 Sat by Pulse 98 Oximetry - Lab 11/10/18 05:00 11/10/18 05:00 Most recent lab results Calcium 7.3 mg/dL (8.4-10.2) L 11/10/18 05:00 Phosphorus 2.50 mg/dL (2.5-4.5) 11/08/18 04:23 Magnesium 2.60 mg/dL (1.7-2.3) H 11/06/18 14:15 Medications & Allergies - Medications Allergies/Adverse Reactions: Allergies No Known Allergies Allergy (Verified 03/17/18 11:54) Home Medications: Home Medications Medication Instructions Recorded Confirmed Last Taken Type Esomeprazole Magnesium [NexIUM] 20 mg PO QDAY #30 suspdr.pkt 03/17/18 11/07/18 Unknown Rx HYDROcodone/APAP 5-325 [[place] 1 each PO Q6HR PRN #15 tablet 03/17/18 11/07/18 Unknown Rx 5/325] Metoclopramide [Reglan] 10 mg PO TID #21 tab 03/17/18 11/07/18 Unknown Rx Ondansetron [Zofran Odt] 4 mg PO Q4HR PRN #20 tab.rapdis 03/17/18 11/07/18 Unknown Rx Active Medications: Generic Name Dose Route Start Last Admin Trade Name Freq PRN Reason Stop Dose Admin Acetaminophen 650 mg 11/06/18 22:22 11/06/18 22:33 Tylenol FEEDTUBE 650 mg Q6H PRN Administration Fever >101 Lipase/Protease/Amylase 1 each 11/08/18 18:[address] 10,500 Unit FEEDTUBE PRN PRN For Clogged Feeding Tube Chlorpromazine HCl 10 mg 11/07/18 08:07 11/10/18 05:36 Thorazine PO 10 mg Q6H PRN Administration Hiccups Dextrose 50 ml 11/07/18 16:46 D50w (25gm) Syringe IV PRN PRN Hypoglycemia Fentanyl 50 mcg 11/06/18 08:37 Sublimaze IV Q10MIN PRN ANALGESIA Hydralazine HCl 10 mg 11/08/18 00:56 11/10/18 05:36 Apresoline IV 10 mg Q4H PRN Administration Hypertension Hydrophilic Ointment 1 applic 11/06/18 08:26 Vaseline Lip Therapy TP Q2HR PRN Dry Lips Fentanyl Citrate 2,000 mcg in 100 mls @ 4.309 mls/hr 11/06/18 10:00 11/09/18 19:15 Fentanyl Drip Premix IV 1 mcg/kg/hr TITR MARIAJOSE 4.309 mls/hr Administration Protocol 1 MCG/KG/HR Piperacillin Sod/Tazobactam Sod 2.25 gm in 50 mls @ 100 mls/hr 11/06/18 22:00 11/10/18 05:36 Zosyn/Ns 2.25 Gm/50ml IV 11/10/18 23:59 100 mls/hr Q8HR MARIAJOSE Administration Protocol Insulin Human Isoph/Insulin Regular 20 unit 11/07/18 18:00 11/10/18 08:51 Humulin 70/30 SUB-Q 20 unit BIDDIAB MARIAJOSE Administration Insulin Human Regular 0 units 11/07/18 18:00 11/10/18 05:35 Humulin R SUB-Q 4 units Q6HR MARIAJOSE Administration Protocol Lansoprazole 30 mg 11/09/18 10:00 11/10/18 09:01 Prevacid Solutab FEEDTUBE 30 mg BID MARIAJOSE Administration Levetiracetam 1,000 mg 11/10/18 10:00 11/10/18 09:01 Keppra PO 1,000 mg BID MARIAJOSE Administration Multi-Ingred Cream/Lotion/Oil/Oint 1 applic 11/06/18 08:26 Artificial Tears Ophth Oint OU Q4HR PRN Dry Eye(s) Simple Syrup 15 ml 11/08/18 18:38 Simple Syrup FEEDTUBE PRN PRN Hypoglycemia Simple Syrup 30 ml 11/08/18 18:38 Simple Syrup FEEDTUBE PRN PRN Hypoglycemia Sodium Bicarbonate 325 mg 11/08/18 18:38 Sodium Bicarbonate FEEDTUBE PRN PRN For Clogged Feeding Tube Sodium Chloride 10 ml 11/06/18 22:00 11/10/18 09:01 Sodium Chloride Flush Syringe 10 Ml IV 10 ml BID MARIAJOSE Administration Sodium Chloride 10 ml 11/06/18 12:42 Sodium Chloride Flush Syringe 10 Ml IV PRN PRN LINE FLUSH
[2018-11-10] MEDS ORDERED: NACL 0.9% 100 ML IV PRN ×2 (11:02→11:26)
--- NOTE | 2018-11-10 11:12 | Progress Note ---
Assessment and Plan Assessment and plan: --Acute Hypoxic Respiratory failure; continue ventilatory support Nebulizers, pulmonary following, wean as tolerated and extubate Possible trach and PEG if no improvement --S/P Cardiopulmonary Arrest-unknown etiology Continue supportive care, ventilatory support, nebulizers --Anoxic Encephalopathy; neurology following, supportive care Poor prognosis, follow EEG --DKA-corrected; uncontrolled blood sugars Accu-Chek sliding scale coverage and ADA diet, 7030 insulin Increase the dose Dose and adjust as needed --Severe metabolic Acidosis; multifactorial closely monitor --Thrombocytopenia possible HIT; hematology oncology evaluation If needed --Seizure Disorder; seizure precautions Antiepileptic medications, neurology following --Acute Kidney Injury secondary to ischemic ATN from hypotension, underlying hx CKD 4: Avoid nephrotoxins, nephrology following Hemodialysis per schedule --Cardiogenic Shock; supportive care, management per cardiology --Anemia of chronic disease; monitor H&H and transfuse as needed --Severe malnutrition/nutritional supplements, nutrition consult; --PAD; continue current management --Shock Liver; with transaminitis, trending down supportive care --DVT prophylaxis; SCDs --Full CODE STATUS Very poor prognosis. plan of care is reviewed with the patient's nurse and patient's mother at the bedside Critical care time 34 minutes History Interval history: Assessment and examined this morning medical records reviewed Patient's mother is at the bedside Patient remains intubated on ventilator support No new events reported by the nursing Vital signs noted Hospitalist Physical - Constitutional Vitals: Temp Pulse Resp BP Pulse Ox 98.2 F 94 H 8 L 110/59 100 11/10/18 08:00 11/10/18 10:32 11/10/18 10:32 11/10/18 10:32 11/10/18 10:32 General appearance: Present: no acute distress, well-nourished, other (intubated on ventilatory support) - EENT Eyes: Present: PERRL, EOM intact - Neck Neck: Present: supple, normal ROM - Respiratory Respiratory effort: normal Respiratory: bilateral: diminished, rhonchi, negative: rales, wheezing - Cardiovascular Rhythm: regular Heart Sounds: Present: S1 & S2 - Extremities Extremities: no ischemia, No edema - Abdominal General gastrointestinal: soft, non-tender, non-distended, normal bowel sounds - Integumentary Integumentary: Present: clear, warm - Psychiatric Psychiatric: other (intubated on vent) - Neurologic Neurologic: other (intubated on vent) Results - Labs CBC & Chem 7: 11/10/18 05:00 11/10/18 05:00 Labs: Laboratory Last Values WBC 10.2 K/mm3 (4.5-11.0) 11/10/18 05:00 RBC 2.95 M/mm3 (3.65-5.03) L 11/10/18 05:00 Hgb 8.9 gm/dl (11.8-15.2) L 11/10/18 05:00 Hct 26.6 % (35.5-45.6) L 11/10/18 05:00 MCV 90 fl (84-94) 11/10/18 05:00 MCH 30 pg (28-32) 11/10/18 05:00 MCHC 34 % (32-34) 11/10/18 05:00 RDW 14.3 % (13.2-15.2) 11/10/18 05:00 Plt Count 100 K/mm3 (140-440) L 11/10/18 05:00 Lymph % (Auto) [place] [facility] 11/10/18 05:00 [place] % (Auto) [facility] 11/10/18 05:00 Eos % (Auto) [facility] [facility] 11/10/18 05:00 Baso % (Auto) [place] [facility] 11/10/18 05:00 Lymph # [facility] 11/10/18 05:00 [place] # [facility] 11/10/18 05:00 Eos # [facility] 11/10/18 05:00 Baso # [facility] 11/10/18 05:00 Add Manual Diff Complete 11/10/18 05:00 Total Counted 100 11/10/18 05:00 Seg Neutrophils % [facility] 11/10/18 05:00 Seg Neuts % (Manual) 63.0 % (40.0-70.0) 11/10/18 05:00 10.0 % 11/10/18 05:00 15.0 % (13.4-35.0) 11/10/18 05:00 Reactive Lymphs % (Man) 0 % 11/10/18 05:00 8.0 % (0.0-7.3) H 11/10/18 05:00 4.0 % (0.0-4.3) 11/10/18 05:00 0 % (0.0-1.8) 11/10/18 05:00 0 % 11/10/18 05:00 0 % 11/10/18 05:00 0 % 11/10/18 05:00 0 % 11/10/18 05:00 Nucleated RBC % Not Reportable 11/10/18 05:00 Seg Neutrophils # [facility] [facility] 11/10/18 05:00 Seg Neutrophils # Man 6.4 K/mm3 (1.8-7.7) 11/10/18 05:00 Band Neutrophils # 1.0 K/mm3 11/10/18 05:00 1.5 K/mm3 (1.2-5.4) 11/10/18 05:00 Abs React Lymphs (Man) 0.0 K/mm3 11/10/18 05:00 0.8 K/mm3 (0.0-0.8) 11/10/18 05:00 0.4 K/mm3 (0.0-0.4) 11/10/18 05:00 0.0 K/mm3 (0.0-0.1) 11/10/18 05:00 0.0 K/mm3 11/10/18 05:00 0.0 K/mm3 11/10/18 05:00 0.0 K/mm3 11/10/18 05:00 Blast Cells # 0.0 K/mm3 11/10/18 05:00 WBC Morphology Not Reportable 11/10/18 05:00 Hypersegmented Neuts Not Reportable 11/10/18 05:00 Hyposegmented Neuts Not Reportable 11/10/18 05:00 Hypogranular Neuts Not Reportable 11/10/18 05:00 Not Reportable 11/10/18 05:00 Not Reportable 11/10/18 05:00 Not Reportable 11/10/18 05:00 Not Reportable 11/10/18 05:00 Not Reportable 11/10/18 05:00 Not Reportable 11/10/18 05:00 Consistent w auto 11/10/18 05:00 Not Reportable 11/10/18 05:00 Plt Clumps, EDTA Not Reportable 11/10/18 05:00 Not Reportable 11/10/18 05:00 Not Reportable 11/10/18 05:00 Not Reportable 11/10/18 05:00 Plt Morphology Comment Not Reportable 11/10/18 05:00 RBC Morphology Not Reportable 11/10/18 05:00 Dimorphic RBCs Not Reportable 11/10/18 05:00 Not Reportable 11/10/18 05:00 1+ 11/10/18 05:00 Not Reportable 11/10/18 05:00 1+ 11/10/18 05:00 Not Reportable 11/10/18 05:00 Not Reportable 11/10/18 05:00 Not Reportable 11/10/18 05:00 Not Reportable 11/10/18 05:00 Not Reportable 11/10/18 05:00 Not Reportable 11/10/18 05:00 Not Reportable 11/10/18 05:00 Not Reportable 11/10/18 05:00 Not Reportable 11/10/18 05:00 Not Reportable 11/10/18 05:00 Not Reportable 11/10/18 05:00 Not Reportable 11/10/18 05:00 Not Reportable 11/10/18 05:00 Not Reportable 11/10/18 05:00 Not Reportable 11/10/18 05:00 Acanthocytes (Spur) Not Reportable 11/10/18 05:00 Rouleaux Not Reportable 11/10/18 05:00 Not Reportable 11/10/18 05:00 Not Reportable 11/10/18 05:00 Not Reportable 11/10/18 05:00 Not Reportable 11/10/18 05:00 Hem Pathologist Commnt No 11/10/18 05:00 POC ABG pH 7.428 (7.35-7.45) 11/09/18 18:49 POC ABG pCO2 46.2 (35-45) H 11/09/18 18:49 POC ABG pO2 104 (80-105) 11/09/18 18:49 POC ABG HCO3 30.5 (22-26 mml/L) 11/09/18 18:49 POC ABG Total CO2 32 (23-27mmol/L) 11/09/18 18:49 POC ABG O2 Sat 98 11/09/18 18:49 POC ABG Base Excess 6 ((-2) - (+3)mmol/L) 11/09/18 18:49 VBG pH 6.982 (7.320-7.420) L* 11/06/18 13:22 25 % 11/09/18 18:49 Sodium 143 mmol/L (137-145) 11/10/18 05:00 Potassium 4.3 mmol/L (3.6-5.0) 11/10/18 05:00 Chloride 101.6 mmol/L (98-107) 11/10/18 05:00 Carbon Dioxide 27 mmol/L (22-30) 11/10/18 05:00 19 mmol/L 11/10/18 05:00 BUN 33 mg/dL (9-20) H 11/10/18 05:00 6.8 mg/dL (0.8-1.5) H 11/10/18 05:00 Estimated GFR 11 ml/min 11/10/18 05:00 5 % 11/10/18 05:00 Glucose 251 mg/dL (75-100) H 11/10/18 05:00 POC Glucose 242 (70-105) H 11/10/18 05:16 Lactic Acid 2.70 mmol/L (0.7-2.0) H* 11/08/18 08:00 Calcium 7.3 mg/dL (8.4-10.2) L 11/10/18 05:00 Phosphorus 2.50 mg/dL (2.5-4.5) 11/08/18 04:23 Magnesium 2.60 mg/dL (1.7-2.3) H 11/06/18 14:15 0.70 mg/dL (0.1-1.2) 11/09/18 06:02 0.3 mg/dL (0-0.2) H 11/08/18 08:00 0.3 mg/dL 11/08/18 08:00 AST 554 units/L (5-40) H 11/09/18 06:02 ALT 461 units/L (7-56) H 11/09/18 06:02 120 units/L (35-129) 11/09/18 06:02 58 units/L (55-170) 11/06/18 09:02 0.027 ng/mL (0.00-0.029) 11/06/18 09:02 1.90 mg/dL (0.00-1.30) H 11/06/18 19:30 5.1 g/dL (6.3-8.2) L 11/09/18 06:02 2.6 g/dL (3.9-5) L 11/09/18 06:02 1.0 % 11/09/18 06:02 Straw (Yellow) 11/06/18 10:38 Clear (Clear) 11/06/18 10:38 5.0 (5.0-7.0) 11/06/18 10:38 Ur Specific [place] 1.014 (1.003-1.030) 11/06/18 10:38 100 mg/dl mg/dL (Negative) 11/06/18 10:38 >=500 mg/dL (Negative) 11/06/18 10:38 20 mg/dL (Negative) 11/06/18 10:38 Sm (Negative) 11/06/18 10:38 Neg (Negative) 11/06/18 10:38 Neg (Negative) 11/06/18 10:38 < 2.0 mg/dL (<2.0) 11/06/18 10:38 Ur Leukocyte Esterase Neg (Negative) 11/06/18 10:38 < 1.0 /HPF (0.0-6.0) 11/06/18 10:38 2.0 /HPF (0.0-6.0) 11/06/18 10:38 U Epithel Cells (Auto) < 1.0 /HPF (0-13.0) 11/06/18 10:38 Random Vancomycin 13.2 ug/mL (0-40.0) 11/08/18 04:23 Salicylates < 0.3 mg/dL (2.8-20.0) L 11/06/18 09:02 Presumptive negative 11/06/18 10:38 Presumptive negative 11/06/18 10:38 Acetaminophen < 5.0 ug/mL (10.0-30.0) L 11/06/18 09:02 Ur Barbiturates Screen Presumptive negative 11/06/18 10:38 Ur Phencyclidine Scrn Presumptive negative 11/06/18 10:38 Ur Amphetamines Screen Presumptive negative 11/06/18 10:38 U Benzodiazepines Scrn Presumptive negative 11/06/18 10:38 Presumptive negative 11/06/18 10:38 U Marijuana (THC) Screen Presumptive positive 11/06/18 10:38 Disclamer 11/06/18 10:38 Plasma/Serum Alcohol < 0.01 % (0-0.07) 11/06/18 09:02 Hepatitis A IgM Ab Non-reactive (NonReactive) 11/07/18 13:20 Hep Bs Antigen Non-reactive (Negative) 11/07/18 13:20 Hep B Core IgM Ab Non-reactive (NonReactive) 11/07/18 13:20 Non-reactive (NonReactive) 11/07/18 13:20 Blood Type A POSITIVE 11/06/18 14:15 Antibody Screen Not Reportable 11/06/18 14:15 JANIS Antibody Screen Negative 11/06/18 14:15 Active Medications - Current Medications Current Medications: Generic Name Dose Route Start Last Admin Trade Name Freq PRN Reason Stop Dose Admin Acetaminophen 650 mg 11/06/18 22:22 11/06/18 22:33 Tylenol FEEDTUBE 650 mg Q6H PRN Administration Fever >101 Lipase/Protease/Amylase 1 each 11/08/18 18:[address] 10,500 Unit FEEDTUBE PRN PRN For Clogged Feeding Tube Chlorpromazine HCl 10 mg 11/07/18 08:07 11/10/18 05:36 Thorazine PO 10 mg Q6H PRN Administration Hiccups Dextrose 50 ml 11/07/18 16:46 D50w (25gm) Syringe IV PRN PRN Hypoglycemia Fentanyl 50 mcg 11/06/18 08:37 Sublimaze IV Q10MIN PRN ANALGESIA Hydralazine HCl 10 mg 11/08/18 00:56 11/10/18 05:36 Apresoline IV 10 mg Q4H PRN Administration Hypertension Hydrophilic Ointment 1 applic 11/06/18 08:26 Vaseline Lip Therapy TP Q2HR PRN Dry Lips Fentanyl Citrate 2,000 mcg in 100 mls @ 4.309 mls/hr 11/06/18 10:00 11/09/18 19:15 Fentanyl Drip Premix IV 1 mcg/kg/hr TITR MARIAJOSE 4.309 mls/hr Administration Protocol 1 MCG/KG/HR Piperacillin Sod/Tazobactam Sod 2.25 gm in 50 mls @ 100 mls/hr 11/06/18 22:00 11/10/18 05:36 Zosyn/Ns 2.25 Gm/50ml IV 11/10/18 23:59 100 mls/hr Q8HR MARIAJOSE Administration Protocol Sodium Chloride 100 mls @ 999 mls/hr 11/10/18 11:02 Nacl 0.9% IV MARY PRN Hypotension Insulin Human Isoph/Insulin Regular 22 unit 11/10/18 11:09 Humulin 70/30 SUB-Q BIDDIAB MARIAJOSE Insulin Human Regular 0 units 11/07/18 18:00 11/10/18 05:35 Humulin R SUB-Q 4 units Q6HR MARIAJOSE Administration Protocol Lansoprazole 30 mg 11/09/18 10:00 11/10/18 09:01 Prevacid Solutab FEEDTUBE 30 mg BID MARIAJOSE Administration Levetiracetam 1,000 mg 11/10/18 10:00 11/10/18 09:01 Keppra PO 1,000 mg BID MARIAJOSE Administration Multi-Ingred Cream/Lotion/Oil/Oint 1 applic 11/06/18 08:26 Artificial Tears Ophth Oint OU Q4HR PRN Dry Eye(s) Simple Syrup 15 ml 11/08/18 18:38 Simple Syrup FEEDTUBE PRN PRN Hypoglycemia Simple Syrup 30 ml 11/08/18 18:38 Simple Syrup FEEDTUBE PRN PRN Hypoglycemia Sodium Bicarbonate 325 mg 11/08/18 18:38 Sodium Bicarbonate FEEDTUBE PRN PRN For Clogged Feeding Tube Sodium Chloride 10 ml 11/06/18 22:00 11/10/18 09:01 Sodium Chloride Flush Syringe 10 Ml IV 10 ml BID MARIAJOSE Administration Sodium Chloride 10 ml 11/06/18 12:42 Sodium Chloride Flush Syringe 10 Ml IV PRN PRN LINE FLUSH Nutrition/Malnutrition Assess - Dietary Evaluation Nutrition/Malnutrition Findings: Nutrition Notes Start: 11/07/18 14:40 Freq: Status: Active Protocol: Document 11/09/18 13:10 LP (Rec: 11/09/18 13:15 LP [id number]) Nutrition Notes Initial or Follow up Reassessment Current Diagnosis CKD (stage V CKD),Diabetes Other Pertinent Diagnosis on HD, PAD, Anoxic brain injury, Cardiopulmonary arrest Current Diet Glucerna 1.2 at 20ml/hr Labs/Tests Na 150 BUN 44 CR 7.7 Pertinent Medications Reviewed Height 6 ft 2 in Weight 109 kg [place] Body Weight (kg) 86.36 BMI 30.8 Subjective/Other Information Consult for TF. Pt continue on vent. Wt change noted and could be due to fluid retention. Burn Absent Trauma Absent #1 Nutrition Diagnosis Inadequate oral intake Diagnosis Progress(for reassessment Continues documentation) Is patient on ventilator? Yes Is Patient Ambulatory and/or Out of Bed No REE-([place]-St. Jeor-confined to bed) 2480.328 Kcal/Kg value to use for calculation 20 Approximate Energy Requirements Using 2180 kcal/Kg Calculation Used for Recommendations Kcal/kg Additional Notes Protein Needs: 103-172g (1.2- 2g/kg) Fluid Needs: 1 ml/kcal Nutrition Intervention Change Diet Order: TF Nutrition Support: Glucerna 1.2 at 75ml/hr 250ml q4h for hypernatremia 100ml q4h once resolved Kcal 2,160 Protein (gm) 108 Fluid (mL) 1,449 Goal #1 Meet at least 80% of kcal and protein needs Anticipated Discharge Needs: Unable to determine at this time Follow-Up By: 11/11/18 Additional Comments Follow for TF start/tolerance
--- NOTE | 2018-11-10 11:12 | Progress Note ---
Assessment and Plan Acute hypoxemic respiratory failure, on mechanical ventilator support. Diabetic ketoacidosis. Severe metabolic acidosis. Severe sepsis with shock. Acute encephalopathy that appears to be toxic metabolic. End-stage renal disease, on dialysis. Hyperkalemia at presentation. Diabetes. Peripheral vascular disease. Anemia that is macrocytic. Elevated serum transaminases, likely representing shock liver. Mild hyponatremia, pseudohyponatremia actually. Lactic acidosis. (AMS is currently a rate limiting factor to safe extubation and he will likely need a tracheostomy) - discontinued ramirez catheter but now retaining; will add flomax -reduced free water to 100 mls q4h as hypernatremia resolved - repeat lactate level pending - will stop AB's after 5 days of negative blood cultures (NGTD) - will repeat EEG today and depending on prognosis per neurology will decide on early vs late tracheostomy - Provigil started - baclofen for myoclonic activity / hiccups - continue daily SAT's and SBT assessment in am as tolerated - prn sedation target for RASS 0 to -1 - wean off vasopressors for MAP > 65 mmHg (off now) - continue to wean supplemental oxygen to keep O2 sats > 90% - continue empiric AB's for now (de-escalate based on clinical and radiologic data) - continue bronchodilators with pulmonary hygiene per RT - Lung protective strategies - VAP bundle addressed - continue HD/UF as tolerated for toxin and volume clearance - neurology evaluation ongoing - Monitor renal indices closely - continue to avoid nephrotoxic agents, adjust all medications for CrCL - Strict intake and output monitoring - continue enteral nutrition as tolerated - continue accuchecks with glycemic control per SSI for target glucose of 140- 180 mg/dL - Maintenance of sleep -wake cycle - Mobility protocol for pressure ulcer prophylaxis - continue GI & VTE prophylaxis - Influenza and pneumonia vaccination per protocol PROGNOSIS: GUARDED CONDITION: CRITICAL CODE STATUS: FULL CODE The high probability of a clinically significant, sudden or life-threatening deterioration of the [respiratory, neurology, renal] system(s) required my full and direct attention, intervention and personal management. The aggregate critical care time was [35] minutes without overlap. Time includes spent on; [x] Data Review and interpretation [x] Patient assessment and monitoring of vital signs [x] Documentation [x] Medication orders and management Subjective Date of service: 11/10/18 Principal diagnosis: Ac hypoxemic resp failure; DKA; Severe sepsis with shock; ESRD on dialysis Interval history: Patient is seen today for: Acute hypoxemic respiratory failure on MVS; DKA; Severe metabolic acidosis; Severe sepsis with shock; Acute encephalopathy that appears to be toxic metabolic; ESRD on dialysis; DM II; Peripheral vascular disease. Seen and examined at bedside; 24hour events reviewed; nursing and respiratory care staff consulted; no adverse overnight events reported to me; remains on MVS; AMS is persistent; still with "hiccup-like" activity even on fentanyl drip; no emesis or overt aspiration; tenuously tolerated PSV trial earlier Objective Vital Signs - 12hr 11/09/18 11/09/18 11/09/18 23:18 23:31 23:32 Temperature Pulse Rate 97 H 100 H 98 H Respiratory 26 H 20 Rate Blood Pressure 153/85 153/85 O2 Sat by Pulse 98 100 Oximetry 11/10/18 11/10/18 11/10/18 00:01 00:31 01:00 Temperature Pulse Rate 99 H 101 H Respiratory 27 H 29 H 25 H Rate Blood Pressure 153/76 154/82 O2 Sat by Pulse 98 98 Oximetry 11/10/18 11/10/18 11/10/18 01:01 01:31 02:01 Temperature Pulse Rate 99 H 100 H 99 H Respiratory 29 H 30 H 28 H Rate Blood Pressure 153/76 143/80 147/79 O2 Sat by Pulse 100 98 98 Oximetry 11/10/18 11/10/18 11/10/18 02:31 03:01 03:21 Temperature 100.4 F H Pulse Rate 101 H 107 H Respiratory 30 H 20 Rate Blood Pressure 145/79 160/89 O2 Sat by Pulse 98 98 Oximetry 11/10/18 11/10/18 11/10/18 03:31 04:00 04:01 Temperature Pulse Rate 103 H 118 H 101 H Respiratory 20 25 H 20 Rate Blood Pressure 156/84 149/86 149/86 O2 Sat by Pulse 98 100 98 Oximetry 11/10/18 11/10/18 11/10/18 04:31 05:01 05:31 Temperature Pulse Rate 108 H 109 H 108 H Respiratory 20 20 26 H Rate Blood Pressure 170/92 172/100 172/90 O2 Sat by Pulse 97 99 98 Oximetry 11/10/18 11/10/18 11/10/18 05:36 06:01 06:31 Temperature Pulse Rate 106 H 112 H 104 H Respiratory 22 24 Rate Blood Pressure 172/90 137/53 141/105 O2 Sat by Pulse 100 98 Oximetry 11/10/18 11/10/18 11/10/18 07:01 07:31 08:00 Temperature 98.2 F Pulse Rate 100 H 112 H Respiratory 24 16 20 Rate Blood Pressure 133/72 133/72 O2 Sat by Pulse 97 100 100 Oximetry 11/10/18 11/10/18 11/10/18 08:01 08:31 09:01 Temperature Pulse Rate 98 H 100 H 95 H Respiratory 20 20 20 Rate Blood Pressure 117/64 148/80 138/75 O2 Sat by Pulse 98 98 98 Oximetry 11/10/18 11/10/18 11/10/18 09:31 10:00 10:01 Temperature Pulse Rate 94 H 100 H 91 H Respiratory 20 20 Rate Blood Pressure 141/75 110/59 O2 Sat by Pulse 98 98 Oximetry 11/10/18 10:32 Temperature Pulse Rate 94 H Respiratory 8 L Rate Blood Pressure 110/59 O2 Sat by Pulse 100 Oximetry Constitutional: appears uncomfortable, other (middle aged AAM, normocephalic and atraumatic on MVS) Eyes: non-icteric ENT: oropharynx moist, other (ETT 25 cm FITO) Neck: supple, no lymphadenopathy, no JVD Effort: mildly labored Ascultation: Bilateral: clear, diminished breath sounds Percussion: Bilateral: not dull Cardiovascular: regular rate and rhythm Gastrointestinal: normoactive bowel sounds, soft, non-tender, non-distended Integumentary: rash Extremities: no cyanosis, no edema, pulses normal, no ischemia or petechiae Neurologic: pupils equal and round (minimally reactive), unable to assess, other (intermittent myoclonic type jerks) Psychiatric: other (unable to assess re: AMS) CBC and BMP: 11/10/18 05:00 11/10/18 05:00 ABG, PT/INR, D-dimer: ABG POC ABG pH 7.428 (7.35-7.45) 11/09/18 18:49 POC ABG pCO2 46.2 (35-45) H 11/09/18 18:49 POC ABG pO2 104 (80-105) 11/09/18 18:49 POC ABG HCO3 30.5 (22-26 mml/L) 11/09/18 18:49 POC ABG Total CO2 32 (23-27mmol/L) 11/09/18 18:49 POC ABG O2 Sat 98 11/09/18 18:49 Abnormal lab findings: Abnormal Labs 11/06/18 11/06/18 11/06/18 08:22 09:02 09:02 WBC 20.1 H RBC 3.40 L Hgb 10.5 L Hct MCV 119 H MCHC 26 L RDW 15.7 H Plt Count Lymph % (Auto) Lymph # Seg Neutrophils % 80.1 H Seg Neuts % (Manual) 76.0 H Lymphocytes % (Manual) 4.0 L Monocytes % (Manual) Nucleated RBC % 1.0 H Seg Neutrophils # 16.1 H Seg Neutrophils # Man 15.3 H Lymphocytes # (Manual) 0.8 L POC ABG pH POC ABG pCO2 POC ABG pO2 VBG pH Sodium 129 L Potassium 7.7 H* Chloride 79.7 L Carbon Dioxide 4 L* BUN 93 H Creatinine 7.4 H Glucose 1469 H* POC Glucose > 500 H Lactic Acid Calcium Phosphorus Magnesium Direct Bilirubin AST 2679 H ALT 1175 H C-Reactive Protein Total Protein 6.1 L Albumin 2.9 L Salicylates Acetaminophen 11/06/18 11/06/18 11/06/18 09:02 09:02 09:02 WBC RBC Hgb Hct MCV MCHC RDW Plt Count Lymph % (Auto) Lymph # Seg Neutrophils % Seg Neuts % (Manual) Lymphocytes % (Manual) Monocytes % (Manual) Nucleated RBC % Seg Neutrophils # Seg Neutrophils # Man Lymphocytes # (Manual) POC ABG pH POC ABG pCO2 POC ABG pO2 VBG pH Sodium Potassium Chloride Carbon Dioxide BUN Creatinine Glucose POC Glucose Lactic Acid 9.40 H* Calcium Phosphorus Magnesium Direct Bilirubin AST ALT C-Reactive Protein Total Protein Albumin Salicylates < 0.3 L Acetaminophen < 5.0 L 11/06/18 11/06/18 11/06/18 09:03 10:19 10:19 WBC RBC Hgb Hct MCV MCHC RDW Plt Count Lymph % (Auto) Lymph # Seg Neutrophils % Seg Neuts % (Manual) Lymphocytes % (Manual) Monocytes % (Manual) Nucleated RBC % Seg Neutrophils # Seg Neutrophils # Man Lymphocytes # (Manual) POC ABG pH 6.841 L POC ABG pCO2 POC ABG pO2 VBG pH Sodium 131 L Potassium 8.9 H* Chloride 85.3 L Carbon Dioxide 6 L* BUN 90 H Creatinine 7.1 H Glucose 1353 H* POC Glucose Lactic Acid Calcium 7.8 L Phosphorus 14.50 H Magnesium 2.70 H Direct Bilirubin AST ALT C-Reactive Protein Total Protein Albumin Salicylates Acetaminophen 11/06/18 11/06/18 11/06/18 12:07 13:22 13:22 WBC RBC Hgb Hct MCV MCHC RDW Plt Count Lymph % (Auto) Lymph # Seg Neutrophils % Seg Neuts % (Manual) Lymphocytes % (Manual) Monocytes % (Manual) Nucleated RBC % Seg Neutrophils # Seg Neutrophils # Man Lymphocytes # (Manual) POC ABG pH POC ABG pCO2 POC ABG pO2 VBG pH 6.982 L* Sodium 135 L Potassium 7.0 H* D Chloride 88.4 L Carbon Dioxide 5 L* BUN 89 H Creatinine 7.2 H Glucose 1326 H* POC Glucose Lactic Acid 8.50 H* Calcium Phosphorus Magnesium Direct Bilirubin AST ALT C-Reactive Protein Total Protein Albumin Salicylates Acetaminophen 11/06/18 11/06/18 11/06/18 14:15 14:15 15:21 WBC RBC Hgb Hct MCV MCHC RDW Plt Count Lymph % (Auto) Lymph # Seg Neutrophils % Seg Neuts % (Manual) Lymphocytes % (Manual) Monocytes % (Manual) Nucleated RBC % Seg Neutrophils # Seg Neutrophils # Man Lymphocytes # (Manual) POC ABG pH POC ABG pCO2 POC ABG pO2 VBG pH Sodium Potassium 6.6 H* 6.0 H Chloride 95.3 L 93.3 L Carbon Dioxide 4 L* 6 L* BUN 83 H 91 H Creatinine 6.9 H 7.3 H Glucose 1205 H* 1174 H* POC Glucose Lactic Acid Calcium 8.2 L Phosphorus 13.00 H Magnesium 2.60 H Direct Bilirubin AST ALT C-Reactive Protein Total Protein Albumin Salicylates Acetaminophen 11/06/18 11/06/18 11/06/18 15:21 16:14 16:33 WBC RBC Hgb Hct MCV MCHC RDW Plt Count Lymph % (Auto) Lymph # Seg Neutrophils % Seg Neuts % (Manual) Lymphocytes % (Manual) Monocytes % (Manual) Nucleated RBC % Seg Neutrophils # Seg Neutrophils # Man Lymphocytes # (Manual) POC ABG pH 7.004 L POC ABG pCO2 33.0 L POC ABG pO2 178 H VBG pH Sodium Potassium Chloride Carbon Dioxide BUN Creatinine Glucose POC Glucose > 500 H Lactic Acid 7.60 H* Calcium Phosphorus Magnesium Direct Bilirubin AST ALT C-Reactive Protein Total Protein Albumin Salicylates Acetaminophen 11/06/18 11/06/18 11/06/18 17:34 19:30 19:30 WBC RBC Hgb Hct MCV MCHC RDW Plt Count Lymph % (Auto) Lymph # Seg Neutrophils % Seg Neuts % (Manual) Lymphocytes % (Manual) Monocytes % (Manual) Nucleated RBC % Seg Neutrophils # Seg Neutrophils # Man Lymphocytes # (Manual) POC ABG pH POC ABG pCO2 POC ABG pO2 VBG pH Sodium Potassium 5.5 H Chloride 97.4 L 97.7 L Carbon Dioxide 10 L 11 L BUN 88 H 87 H Creatinine 7.5 H 7.6 H Glucose 1054 H* 954 H* POC Glucose Lactic Acid Calcium 7.7 L 7.4 L Phosphorus Magnesium Direct Bilirubin AST ALT C-Reactive Protein 1.90 H Total Protein Albumin Salicylates Acetaminophen 11/06/18 11/06/18 11/06/18 20:31 20:40 20:40 WBC RBC Hgb Hct MCV MCHC RDW Plt Count Lymph % (Auto) Lymph # Seg Neutrophils % Seg Neuts % (Manual) Lymphocytes % (Manual) Monocytes % (Manual) Nucleated RBC % Seg Neutrophils # Seg Neutrophils # Man Lymphocytes # (Manual) POC ABG pH 7.245 L POC ABG pCO2 POC ABG pO2 132 H VBG pH Sodium Potassium Chloride Carbon Dioxide BUN Creatinine Glucose 907 H* POC Glucose Lactic Acid 4.40 H* Calcium Phosphorus Magnesium Direct Bilirubin AST ALT C-Reactive Protein Total Protein Albumin Salicylates Acetaminophen 11/06/18 11/06/18 11/06/18 22:05 22:40 23:35 WBC RBC Hgb Hct MCV MCHC RDW Plt Count Lymph % (Auto) Lymph # Seg Neutrophils % Seg Neuts % (Manual) Lymphocytes % (Manual) Monocytes % (Manual) Nucleated RBC % Seg Neutrophils # Seg Neutrophils # Man Lymphocytes # (Manual) POC ABG pH POC ABG pCO2 POC ABG pO2 VBG pH Sodium Potassium Chloride Carbon Dioxide 13 L BUN 86 H Creatinine 7.8 H Glucose 822 H* 726 H* POC Glucose Lactic Acid 3.40 H* Calcium 7.5 L Phosphorus Magnesium Direct Bilirubin AST ALT C-Reactive Protein Total Protein Albumin Salicylates Acetaminophen 11/07/18 11/07/18 11/07/18 01:25 01:26 03:15 WBC RBC Hgb Hct MCV MCHC RDW Plt Count Lymph % (Auto) Lymph # Seg Neutrophils % Seg Neuts % (Manual) Lymphocytes % (Manual) Monocytes % (Manual) Nucleated RBC % Seg Neutrophils # Seg Neutrophils # Man Lymphocytes # (Manual) POC ABG pH POC ABG pCO2 POC ABG pO2 VBG pH Sodium Potassium Chloride Carbon Dioxide BUN Creatinine Glucose 602 H* POC Glucose > 500 H > 500 H Lactic Acid Calcium Phosphorus Magnesium Direct Bilirubin AST ALT C-Reactive Protein Total Protein Albumin Salicylates Acetaminophen 11/07/18 11/07/18 11/07/18 03:20 04:32 04:47 WBC RBC Hgb Hct MCV MCHC RDW Plt Count Lymph % (Auto) Lymph # Seg Neutrophils % Seg Neuts % (Manual) Lymphocytes % (Manual) Monocytes % (Manual) Nucleated RBC % Seg Neutrophils # Seg Neutrophils # Man Lymphocytes # (Manual) POC ABG pH POC ABG pCO2 30.3 L POC ABG pO2 153 H VBG pH Sodium 149 H Potassium Chloride Carbon Dioxide 16 L BUN 86 H Creatinine 8.3 H Glucose 499.2 H POC Glucose 360 H Lactic Acid Calcium 7.6 L Phosphorus Magnesium Direct Bilirubin AST ALT C-Reactive Protein Total Protein Albumin Salicylates Acetaminophen 11/07/18 11/07/18 11/07/18 05:26 06:35 06:36 WBC RBC Hgb Hct MCV MCHC RDW Plt Count Lymph % (Auto) Lymph # Seg Neutrophils % Seg Neuts % (Manual) Lymphocytes % (Manual) Monocytes % (Manual) Nucleated RBC % Seg Neutrophils # Seg Neutrophils # Man Lymphocytes # (Manual) POC ABG pH POC ABG pCO2 POC ABG pO2 VBG pH Sodium 153 H Potassium 3.2 L Chloride 109.7 H Carbon Dioxide BUN 84 H Creatinine 8.6 H Glucose 249 H POC Glucose 341 H 274 H Lactic Acid Calcium 7.6 L Phosphorus Magnesium Direct Bilirubin AST ALT C-Reactive Protein Total Protein Albumin Salicylates Acetaminophen 11/07/18 11/07/18 11/07/18 07:33 09:00 09:52 WBC RBC Hgb Hct MCV MCHC RDW Plt Count Lymph % (Auto) Lymph # Seg Neutrophils % Seg Neuts % (Manual) Lymphocytes % (Manual) Monocytes % (Manual) Nucleated RBC % Seg Neutrophils # Seg Neutrophils # Man Lymphocytes # (Manual) POC ABG pH POC ABG pCO2 POC ABG pO2 VBG pH Sodium Potassium Chloride Carbon Dioxide BUN Creatinine Glucose POC Glucose 243 H 182 H 227 H Lactic Acid Calcium Phosphorus Magnesium Direct Bilirubin AST ALT C-Reactive Protein Total Protein Albumin Salicylates Acetaminophen 11/07/18 11/07/18 11/07/18 10:50 10:50 10:50 WBC 11.3 H RBC 2.85 L Hgb 8.7 L Hct 25.3 L D MCV MCHC RDW Plt Count Lymph % (Auto) 9.7 L Lymph # 1.1 L Seg Neutrophils % 83.3 H Seg Neuts % (Manual) Lymphocytes % (Manual) Monocytes % (Manual) Nucleated RBC % Seg Neutrophils # 9.4 H Seg Neutrophils # Man Lymphocytes # (Manual) POC ABG pH POC ABG pCO2 POC ABG pO2 VBG pH Sodium 154 H Potassium 3.2 L Chloride 110.2 H Carbon Dioxide BUN 82 H Creatinine 8.3 H Glucose 186 H POC Glucose 200 H Lactic Acid Calcium 7.3 L Phosphorus Magnesium Direct Bilirubin AST ALT C-Reactive Protein Total Protein Albumin Salicylates Acetaminophen 11/07/18 11/07/18 11/07/18 12:00 12:05 13:13 WBC RBC Hgb Hct MCV MCHC RDW Plt Count Lymph % (Auto) Lymph # Seg Neutrophils % Seg Neuts % (Manual) Lymphocytes % (Manual) Monocytes % (Manual) Nucleated RBC % Seg Neutrophils # Seg Neutrophils # Man Lymphocytes # (Manual) POC ABG pH POC ABG pCO2 POC ABG pO2 VBG pH Sodium Potassium Chloride Carbon Dioxide BUN Creatinine Glucose POC Glucose 179 H 190 H Lactic Acid 2.50 H* Calcium Phosphorus Magnesium Direct Bilirubin AST ALT C-Reactive Protein Total Protein Albumin Salicylates Acetaminophen 11/07/18 11/07/18 11/07/18 13:20 14:05 15:18 WBC RBC Hgb Hct MCV MCHC RDW Plt Count Lymph % (Auto) Lymph # Seg Neutrophils % Seg Neuts % (Manual) Lymphocytes % (Manual) Monocytes % (Manual) Nucleated RBC % Seg Neutrophils # Seg Neutrophils # Man Lymphocytes # (Manual) POC ABG pH POC ABG pCO2 POC ABG pO2 VBG pH Sodium Potassium 3.1 L Chloride Carbon Dioxide BUN 50 H Creatinine 5.0 H Glucose 176 H POC Glucose 189 H 215 H Lactic Acid Calcium 7.4 L Phosphorus Magnesium Direct Bilirubin AST ALT C-Reactive Protein Total Protein Albumin Salicylates Acetaminophen 11/07/18 11/07/18 11/07/18 16:25 17:37 23:23 WBC RBC Hgb Hct MCV MCHC RDW Plt Count Lymph % (Auto) Lymph # Seg Neutrophils % Seg Neuts % (Manual) Lymphocytes % (Manual) Monocytes % (Manual) Nucleated RBC % Seg Neutrophils # Seg Neutrophils # Man Lymphocytes # (Manual) POC ABG pH POC ABG pCO2 POC ABG pO2 VBG pH Sodium Potassium Chloride Carbon Dioxide BUN Creatinine Glucose POC Glucose 180 H 215 H 234 H Lactic Acid Calcium Phosphorus Magnesium Direct Bilirubin AST ALT C-Reactive Protein Total Protein Albumin Salicylates Acetaminophen 11/08/18 11/08/18 11/08/18 04:17 04:23 04:23 WBC RBC 2.98 L Hgb 9.3 L Hct 26.7 L MCV MCHC 35 H RDW Plt Count 130 L Lymph % (Auto) Lymph # Seg Neutrophils % 80.3 H Seg Neuts % (Manual) Lymphocytes % (Manual) Monocytes % (Manual) Nucleated RBC % Seg Neutrophils # 7.8 H Seg Neutrophils # Man Lymphocytes # (Manual) POC ABG pH 7.520 H POC ABG pCO2 POC ABG pO2 111 H VBG pH Sodium Potassium 3.0 L Chloride Carbon Dioxide BUN 44 H Creatinine 6.3 H Glucose 245 H POC Glucose Lactic Acid Calcium 7.3 L Phosphorus Magnesium Direct Bilirubin AST ALT C-Reactive Protein Total Protein Albumin Salicylates Acetaminophen 11/08/18 11/08/18 11/08/18 05:19 08:00 08:00 WBC RBC Hgb Hct MCV MCHC RDW Plt Count Lymph % (Auto) Lymph # Seg Neutrophils % Seg Neuts % (Manual) Lymphocytes % (Manual) Monocytes % (Manual) Nucleated RBC % Seg Neutrophils # Seg Neutrophils # Man Lymphocytes # (Manual) POC ABG pH POC ABG pCO2 POC ABG pO2 VBG pH Sodium Potassium Chloride Carbon Dioxide BUN Creatinine Glucose POC Glucose 253 H Lactic Acid 2.70 H* Calcium Phosphorus Magnesium Direct Bilirubin 0.3 H AST 932 H ALT 582 H C-Reactive Protein Total Protein 5.4 L Albumin 2.6 L Salicylates Acetaminophen 11/08/18 11/08/18 11/08/18 11:36 17:51 23:28 WBC RBC Hgb Hct MCV MCHC RDW Plt Count Lymph % (Auto) Lymph # Seg Neutrophils % Seg Neuts % (Manual) Lymphocytes % (Manual) Monocytes % (Manual) Nucleated RBC % Seg Neutrophils # Seg Neutrophils # Man Lymphocytes # (Manual) POC ABG pH 7.459 H POC ABG pCO2 POC ABG pO2 108 H VBG pH Sodium Potassium Chloride Carbon Dioxide BUN Creatinine Glucose POC Glucose 197 H 418 H Lactic Acid Calcium Phosphorus Magnesium Direct Bilirubin AST ALT C-Reactive Protein Total Protein Albumin Salicylates Acetaminophen 11/09/18 11/09/18 11/09/18 00:39 02:20 03:48 WBC RBC Hgb Hct MCV MCHC RDW Plt Count Lymph % (Auto) Lymph # Seg Neutrophils % Seg Neuts % (Manual) Lymphocytes % (Manual) Monocytes % (Manual) Nucleated RBC % Seg Neutrophils # Seg Neutrophils # Man Lymphocytes # (Manual) POC ABG pH POC ABG pCO2 POC ABG pO2 108 H VBG pH Sodium Potassium Chloride Carbon Dioxide BUN Creatinine Glucose POC Glucose 471 H 254 H Lactic Acid Calcium Phosphorus Magnesium Direct Bilirubin AST ALT C-Reactive Protein Total Protein Albumin Salicylates Acetaminophen 11/09/18 11/09/18 11/09/18 06:02 06:02 17:49 WBC RBC 2.95 L Hgb 9.2 L Hct 26.7 L MCV MCHC RDW Plt Count 101 L Lymph % (Auto) Lymph # Seg Neutrophils % Seg Neuts % (Manual) Lymphocytes % (Manual) Monocytes % (Manual) Nucleated RBC % Seg Neutrophils # Seg Neutrophils # Man Lymphocytes # (Manual) POC ABG pH POC ABG pCO2 POC ABG pO2 VBG pH Sodium 150 H Potassium Chloride 108.3 H Carbon Dioxide BUN 44 H Creatinine 7.7 H Glucose 102 H POC Glucose 184 H Lactic Acid Calcium 7.2 L Phosphorus Magnesium Direct Bilirubin AST 554 H ALT 461 H C-Reactive Protein Total Protein 5.1 L Albumin 2.6 L Salicylates Acetaminophen 11/09/18 11/09/18 11/10/18 18:49 23:32 05:00 WBC RBC Hgb Hct MCV MCHC RDW Plt Count Lymph % (Auto) Lymph # Seg Neutrophils % Seg Neuts % (Manual) Lymphocytes % (Manual) Monocytes % (Manual) Nucleated RBC % Seg Neutrophils # Seg Neutrophils # Man Lymphocytes # (Manual) POC ABG pH POC ABG pCO2 46.2 H POC ABG pO2 VBG pH Sodium Potassium Chloride Carbon Dioxide BUN 33 H Creatinine 6.8 H Glucose 251 H POC Glucose 150 H Lactic Acid Calcium 7.3 L Phosphorus Magnesium Direct Bilirubin AST ALT C-Reactive Protein Total Protein Albumin Salicylates Acetaminophen 11/10/18 11/10/18 05:00 05:16 WBC RBC 2.95 L Hgb 8.9 L Hct 26.6 L MCV MCHC RDW Plt Count 100 L Lymph % (Auto) Lymph # Seg Neutrophils % Seg Neuts % (Manual) Lymphocytes % (Manual) Monocytes % (Manual) 8.0 H Nucleated RBC % Seg Neutrophils # Seg Neutrophils # Man Lymphocytes # (Manual) POC ABG pH POC ABG pCO2 POC ABG pO2 VBG pH Sodium Potassium Chloride Carbon Dioxide BUN Creatinine Glucose POC Glucose 242 H Lactic Acid Calcium Phosphorus Magnesium Direct Bilirubin AST ALT C-Reactive Protein Total Protein Albumin Salicylates Acetaminophen Chest x-ray: image reviewed (ETT in good position; normal CXR otherwise) Allied health notes reviewed: nursing
--- NOTE | 2018-11-10 11:26 | Progress Note ---
Assessment and Plan Echo reviewed - EF 30-35%, mild MR and TR. Can consider addition of BB and/or ACEI/ARB if BPs permit. Continue supportive measures. Overall poor prognosis. The patient has been seen in conjunction with Dr. Loving who agrees with the assessment and plan of care. - Patient Problems (1) Cardiopulmonary arrest Current Visit: Yes Status: Acute (2) Cardiomyopathy Current Visit: Yes Status: Acute (3) DKA (diabetic ketoacidoses) Current Visit: Yes Status: Acute Qualifiers: Diabetes mellitus type: type 2 Diabetes mellitus complication detail: with coma Qualified Code(s): E11.11 - Type 2 diabetes mellitus with ketoacidosis with coma (4) Metabolic acidosis Current Visit: Yes Status: Acute (5) Anoxic brain injury Current Visit: Yes Status: Suspected (6) ESRD (end stage renal disease) on dialysis Current Visit: Yes Status: Chronic (7) Anemia Current Visit: Yes Status: Acute (8) Thrombocytopenia Current Visit: Yes Status: Acute (9) PAD (peripheral artery disease) Current Visit: Yes Status: Chronic (10) History of seizures Current Visit: Yes Status: Chronic (11) Tobacco use Current Visit: Yes Status: Chronic Subjective Date of service: 11/10/18 Principal diagnosis: Ac hypoxemic resp failure; DKA; Severe sepsis with shock; ESRD on dialysis Interval history: pt remains intubated, nonresponsive. mother at bedside. Objective Last Vital Signs Temp 98.2 F 11/10/18 08:00 Pulse 94 H 11/10/18 11:01 Resp 27 H 11/10/18 11:01 BP 151/59 11/10/18 11:01 Pulse Ox 100 11/10/18 11:01 - Physical Examination General: Other (intubated, unresponsive) HEENT: Positive: Other (patient is intubated. Not responsive. Not on any IV sedation. Pupils are fixed and dilated.) Cardiac: Positive: Reg Rate and Rhythm, S1/S2 Lungs: Positive: Oxygen, Ventilated Respirations Abdomen: Positive: Unremarkable, Soft, Active Bowel Sounds Extremities: Present: Cool. Absent: edema - Labs and Meds CBC 11/10/18 Range/Units 05:00 WBC 10.2 (4.5-11.0) K/mm3 RBC 2.95 L (3.65-5.03) M/mm3 Hgb 8.9 L (11.8-15.2) gm/dl Hct 26.6 L (35.5-45.6) % Plt Count 100 L (140-440) K/mm3 Lymph # [employer] [place] # [employer] Eos # [employer] Baso # [employer] Comprehensive Metabolic Panel 11/10/18 Range/Units 05:00 Sodium 143 (137-145) mmol/L Potassium 4.3 (3.6-5.0) mmol/L Chloride 101.6 (98-107) mmol/L Carbon Dioxide 27 (22-30) mmol/L BUN 33 H (9-20) mg/dL Creatinine 6.8 H (0.8-1.5) mg/dL Glucose 251 H (75-100) mg/dL Calcium 7.3 L (8.4-10.2) mg/dL - Imaging and Cardiology EKG: report reviewed, image reviewed Echo: pending - EKG Sinus rhythms and dysrhythmias: sinus arrest or pause Ventricular dysrhythmias: idioventricular escape rh AV and intraventricular conduction: intraventricular conducti Repolarization changes or abnormalities: Suggestive of hyperkalemia (wide QRS complexes and ST depression evaluation probably all due to severe hyperkalemia. The last EKG does not show any ST elevation but continues to show peaked T waves.) - Allied health notes Allied health notes reviewed: nursing
[2018-11-10] MEDS: FLOMAX PO SCH (13:46)
[2018-11-10] MEDS: LIORESAL PO SCH ×2 (13:46→19:52)
[2018-11-10] MEDS: fentaNYL DRIP Premix 2,000 MCG/100 ML BAG IV SCH (18:49)
--- NOTE | 2018-11-11 02:25 | XRay Report ---
PROCEDURE: XR CHEST 1V AP TECHNIQUE: Chest radiograph single view. HISTORY: Follow up respiratory failure COMPARISONS: Several priors, most recent dated November 10, 2018. FINDINGS: Heart: Unchanged. Mediastinum/Vessels: Normal. Lungs/Pleural space: Normal. Bony thorax: No acute osseous abnormality. Life support devices: Endotracheal tube terminates 6 cm proximal to the [place]. An orogastric tube ov erlies the stomach. IMPRESSION: 1. There is no focal consolidation or pleural effusion. 2. Endotracheal and orogastric tubes are properly positioned. This document is electronically signed by Gordo Colin DO., November 11 2018 02:23:25 AM ET
[2018-11-11] MEDS: APRESOLINE IV PRN ×2 (04:48→07:34)
[2018-11-11 05:24] LABS: Hematocrit 27.4 % (35.5-45.6); Hemoglobin 9.1 gm/dl (11.8-15.2); Mean Corpuscular HGB Conc 33 % (32-34); Mean Corpuscular Volume 92 fl (84-94); Red Blood Count 2.98 M/mm3 (3.65-5.03); Red Cell Distribution Width 14.2 % (13.2-15.2)
[2018-11-11 05:47] LABS: Albumin 2.3 g/dL (3.9-5); Calcium 7.9 mg/dL (8.4-10.2)
[2018-11-11] MEDS: HumuLIN R SUB-Q SCH ×3 (06:07→18:19)
[2018-11-11 06:36] LABS: Anisocytosis 1+; Basophils % (Manual) 0 % (0.0-1.8); Platelet Estimate Consistent w Auto; Total Cells Counted 100
[2018-11-11 06:37] LABS: Platelet Count 114 K/mm3 (140-440)
[2018-11-11] MEDS: TYLENOL FEEDTUBE PRN (07:33)
[2018-11-11] MEDS: LIORESAL PO SCH ×3 (07:34→21:44)
--- NOTE | 2018-11-11 09:10 | Progress Note ---
Assessment and Plan Assessment and plan: --S/P Cardiopulmonary Arrest-unknown etiology Continue supportive care, ventilatory support, nebulizers --Acute Hypoxic Respiratory failure; on ventilatory support Nebulizers, pulmonary following, wean as tolerated and extubate Possible trach and PEG if no improvement --Anoxic Encephalopathy; neurology following, supportive care Poor prognosis, follow EEG --DKA-corrected; uncontrolled blood sugars Accu-Chek sliding scale coverage and ADA diet, 7030 insulin Increase the dose Dose and adjust as needed --Severe metabolic Acidosis; multifactorial closely monitor --Thrombocytopenia possible HIT; hematology oncology evaluation If needed --Seizure Disorder; seizure precautions Antiepileptic medications, neurology following --Acute Kidney Injury secondary to ischemic ATN from hypotension, underlying hx CKD 4: Avoid nephrotoxins, nephrology following Hemodialysis per schedule --Cardiogenic Shock; supportive care, management per cardiology --Anemia of chronic disease; monitor H&H and transfuse as needed --Severe malnutrition/nutritional supplements, nutrition consult; --PAD; continue current management --Shock Liver; with transaminitis, trending down supportive care --DVT prophylaxis; SCDs --Full CODE STATUS Very poor prognosis. plan of care is reviewed with the patient's nurse and patient's mother at the bedside Critical care time 34 minutes History Interval history: Patient seen and examined medical records reviewed Remains intubated on ventilatory support No new events reported by the nursing Vital signs noted Hospitalist Physical - Constitutional Vitals: Temp Pulse Resp BP Pulse Ox 100.1 F H 108 H 28 H 113/56 98 11/11/18 08:00 11/11/18 08:29 11/11/18 08:01 11/11/18 08:29 11/11/18 08:29 General appearance: Present: no acute distress, well-nourished, other (intubated on ventilatory support) - EENT Eyes: Absent: scleral icterus, conjunctival injection - Neck Neck: Present: supple - Respiratory Respiratory effort: normal Respiratory: bilateral: diminished, rhonchi, negative: rales, wheezing - Cardiovascular Rhythm: regular Heart Sounds: Present: S1 & S2 - Extremities Extremities: no ischemia, No edema - Abdominal General gastrointestinal: soft, non-tender, non-distended, normal bowel sounds - Integumentary Integumentary: Present: clear, warm - Psychiatric Psychiatric: other (intubated on vent) - Neurologic Neurologic: other (intubated on vent) Results - Labs CBC & Chem 7: 11/11/18 04:24 11/11/18 04:24 Labs: Laboratory Last Values WBC 10.4 K/mm3 (4.5-11.0) 11/11/18 04:24 RBC 2.98 M/mm3 (3.65-5.03) L 11/11/18 04:24 Hgb 9.1 gm/dl (11.8-15.2) L 11/11/18 04:24 Hct 27.4 % (35.5-45.6) L 11/11/18 04:24 MCV 92 fl (84-94) 11/11/18 04:24 MCH 30 pg (28-32) 11/11/18 04:24 MCHC 33 % (32-34) 11/11/18 04:24 RDW 14.2 % (13.2-15.2) 11/11/18 04:24 Plt Count 114 K/mm3 (140-440) L 11/11/18 04:24 Lymph % (Auto) [employer] Operator 11/11/18 04:24 Morrison % (Auto) [employer] Operator 11/11/18 04:24 Eos % (Auto) [employer] Operator 11/11/18 04:24 Baso % (Auto) [employer] Operator 11/11/18 04:24 Lymph # [employer] Operator 11/11/18 04:24 Morrison # [employer] Operator 11/11/18 04:24 Eos # [employer] Operator 11/11/18 04:24 Baso # [employer] Operator 11/11/18 04:24 Add Manual Diff Complete 11/11/18 04:24 Total Counted 100 11/11/18 04:24 Seg Neutrophils % [employer] Operator 11/11/18 04:24 Seg Neuts % (Manual) 66.0 % (40.0-70.0) 11/11/18 04:24 0 % 11/11/18 04:24 22.0 % (13.4-35.0) 11/11/18 04:24 Reactive Lymphs % (Man) 0 % 11/11/18 04:24 10.0 % (0.0-7.3) H 11/11/18 04:24 2.0 % (0.0-4.3) 11/11/18 04:24 0 % (0.0-1.8) 11/11/18 04:24 0 % 11/11/18 04:24 0 % 11/11/18 04:24 0 % 11/11/18 04:24 0 % 11/11/18 04:24 Nucleated RBC % Not Reportable 11/11/18 04:24 Seg Neutrophils # [employer] Operator 11/11/18 04:24 Seg Neutrophils # Man 6.9 K/mm3 (1.8-7.7) 11/11/18 04:24 Band Neutrophils # 0.0 K/mm3 11/11/18 04:24 2.3 K/mm3 (1.2-5.4) 11/11/18 04:24 Abs React Lymphs (Man) 0.0 K/mm3 11/11/18 04:24 1.0 K/mm3 (0.0-0.8) H 11/11/18 04:24 0.2 K/mm3 (0.0-0.4) 11/11/18 04:24 0.0 K/mm3 (0.0-0.1) 11/11/18 04:24 0.0 K/mm3 11/11/18 04:24 0.0 K/mm3 11/11/18 04:24 0.0 K/mm3 11/11/18 04:24 Blast Cells # 0.0 K/mm3 11/11/18 04:24 WBC Morphology Not Reportable 11/11/18 04:24 Hypersegmented Neuts Not Reportable 11/11/18 04:24 Hyposegmented Neuts Not Reportable 11/11/18 04:24 Hypogranular Neuts Not Reportable 11/11/18 04:24 Not Reportable 11/11/18 04:24 Not Reportable 11/11/18 04:24 Not Reportable 11/11/18 04:24 Not Reportable 11/11/18 04:24 Not Reportable 11/11/18 04:24 Not Reportable 11/11/18 04:24 Consistent w auto 11/11/18 04:24 Not Reportable 11/11/18 04:24 Plt Clumps, EDTA Not Reportable 11/11/18 04:24 Not Reportable 11/11/18 04:24 Not Reportable 11/11/18 04:24 Not Reportable 11/11/18 04:24 Plt Morphology Comment Not Reportable 11/11/18 04:24 RBC Morphology Not Reportable 11/11/18 04:24 Dimorphic RBCs Not Reportable 11/11/18 04:24 Not Reportable 11/11/18 04:24 Not Reportable 11/11/18 04:24 Not Reportable 11/11/18 04:24 1+ 11/11/18 04:24 Not Reportable 11/11/18 04:24 Not Reportable 11/11/18 04:24 Not Reportable 11/11/18 04:24 Not Reportable 11/11/18 04:24 Not Reportable 11/11/18 04:24 Not Reportable 11/11/18 04:24 Not Reportable 11/11/18 04:24 Not Reportable 11/11/18 04:24 Not Reportable 11/11/18 04:24 Not Reportable 11/11/18 04:24 Not Reportable 11/11/18 04:24 Not Reportable 11/11/18 04:24 Not Reportable 11/11/18 04:24 Not Reportable 11/11/18 04:24 Not Reportable 11/11/18 04:24 Acanthocytes (Spur) Not Reportable 11/11/18 04:24 Rouleaux Not Reportable 11/11/18 04:24 Not Reportable 11/11/18 04:24 Not Reportable 11/11/18 04:24 Not Reportable 11/11/18 04:24 Not Reportable 11/11/18 04:24 Hem Pathologist Commnt No 11/11/18 04:24 POC ABG pH 7.418 (7.35-7.45) 11/11/18 05:31 POC ABG pCO2 48.8 (35-45) H 11/11/18 05:31 POC ABG pO2 109 (80-105) H 11/11/18 05:31 POC ABG HCO3 31.5 (22-26 mml/L) 11/11/18 05:31 POC ABG Total CO2 33 (23-27mmol/L) 11/11/18 05:31 POC ABG O2 Sat 98 11/11/18 05:31 POC ABG Base Excess 7 ((-2) - (+3)mmol/L) 11/11/18 05:31 VBG pH 6.982 (7.320-7.420) L* 11/06/18 13:22 25 % 11/11/18 05:31 Sodium 142 mmol/L (137-145) 11/11/18 04:24 Potassium 3.9 mmol/L (3.6-5.0) 11/11/18 04:24 Chloride 101.2 mmol/L (98-107) 11/11/18 04:24 Carbon Dioxide 27 mmol/L (22-30) 11/11/18 04:24 18 mmol/L 11/11/18 04:24 BUN 23 mg/dL (9-20) H 11/11/18 04:24 5.5 mg/dL (0.8-1.5) H 11/11/18 04:24 Estimated GFR 14 ml/min 11/11/18 04:24 4 % 11/11/18 04:24 Glucose 147 mg/dL (75-100) H 11/11/18 04:24 POC Glucose 172 (70-105) H 11/11/18 05:27 Lactic Acid 2.70 mmol/L (0.7-2.0) H* 11/08/18 08:00 Calcium 7.9 mg/dL (8.4-10.2) L 11/11/18 04:24 Phosphorus 2.50 mg/dL (2.5-4.5) 11/08/18 04:23 Magnesium 2.60 mg/dL (1.7-2.3) H 11/06/18 14:15 0.30 mg/dL (0.1-1.2) 11/11/18 04:24 0.3 mg/dL (0-0.2) H 11/08/18 08:00 0.3 mg/dL 11/08/18 08:00 AST 152 units/L (5-40) H 11/11/18 04:24 ALT 247 units/L (7-56) H 11/11/18 04:24 128 units/L (35-129) 11/11/18 04:24 58 units/L (55-170) 11/06/18 09:02 0.027 ng/mL (0.00-0.029) 11/06/18 09:02 1.90 mg/dL (0.00-1.30) H 11/06/18 19:30 6.3 g/dL (6.3-8.2) D 11/11/18 04:24 2.3 g/dL (3.9-5) L 11/11/18 04:24 0.6 % 11/11/18 04:24 Straw (Yellow) 11/06/18 10:38 Clear (Clear) 11/06/18 10:38 5.0 (5.0-7.0) 11/06/18 10:38 Ur Specific [place] 1.014 (1.003-1.030) 11/06/18 10:38 100 mg/dl mg/dL (Negative) 11/06/18 10:38 >=500 mg/dL (Negative) 11/06/18 10:38 20 mg/dL (Negative) 11/06/18 10:38 Sm (Negative) 11/06/18 10:38 Neg (Negative) 11/06/18 10:38 Neg (Negative) 11/06/18 10:38 < 2.0 mg/dL (<2.0) 11/06/18 10:38 Ur Leukocyte Esterase Neg (Negative) 11/06/18 10:38 < 1.0 /HPF (0.0-6.0) 11/06/18 10:38 2.0 /HPF (0.0-6.0) 11/06/18 10:38 U Epithel Cells (Auto) < 1.0 /HPF (0-13.0) 11/06/18 10:38 Random Vancomycin 13.2 ug/mL (0-40.0) 11/08/18 04:23 Salicylates < 0.3 mg/dL (2.8-20.0) L 11/06/18 09:02 Presumptive negative 11/06/18 10:38 Presumptive negative 11/06/18 10:38 Acetaminophen < 5.0 ug/mL (10.0-30.0) L 11/06/18 09:02 Ur Barbiturates Screen Presumptive negative 11/06/18 10:38 Ur Phencyclidine Scrn Presumptive negative 11/06/18 10:38 Ur Amphetamines Screen Presumptive negative 11/06/18 10:38 U Benzodiazepines Scrn Presumptive negative 11/06/18 10:38 Presumptive negative 11/06/18 10:38 U Marijuana (THC) Screen Presumptive positive 11/06/18 10:38 Disclamer 11/06/18 10:38 Plasma/Serum Alcohol < 0.01 % (0-0.07) 11/06/18 09:02 Hepatitis A IgM Ab Non-reactive (NonReactive) 11/07/18 13:20 Hep Bs Antigen Non-reactive (Negative) 11/07/18 13:20 Hep B Core IgM Ab Non-reactive (NonReactive) 11/07/18 13:20 Non-reactive (NonReactive) 11/07/18 13:20 Blood Type A POSITIVE 11/06/18 14:15 Antibody Screen Not Reportable 11/06/18 14:15 JANIS Antibody Screen Negative 11/06/18 14:15 Active Medications - Current Medications Current Medications: Generic Name Dose Route Start Last Admin Trade Name Freq PRN Reason Stop Dose Admin Acetaminophen 650 mg 11/06/18 22:22 11/11/18 07:33 Tylenol FEEDTUBE 650 mg Q6H PRN Administration Fever >101 Lipase/Protease/Amylase 1 each 11/08/18 18:[address] 10,500 Unit FEEDTUBE PRN PRN For Clogged Feeding Tube Baclofen 5 mg 11/10/18 14:00 11/11/18 07:34 Lioresal PO 5 mg TID MARIAJOSE Administration Chlorpromazine HCl 10 mg 11/07/18 08:07 11/10/18 05:36 Thorazine PO 10 mg Q6H PRN Administration Hiccups Dextrose 50 ml 11/07/18 16:46 11/10/18 23:43 D50w (25gm) Syringe IV 50 ml PRN PRN Administration Hypoglycemia Fentanyl 50 mcg 11/06/18 08:37 Sublimaze IV Q10MIN PRN ANALGESIA Hydralazine HCl 10 mg 11/08/18 00:56 11/11/18 07:34 Apresoline IV 10 mg Q4H PRN Administration Hypertension Hydrophilic Ointment 1 applic 11/06/18 08:26 11/10/18 19:52 Vaseline Lip Therapy TP 1 applic Q2HR PRN Administration Dry Lips Fentanyl Citrate 2,000 mcg in 100 mls @ 4.309 mls/hr 11/06/18 10:00 11/10/18 18:49 Fentanyl Drip Premix IV 1 mcg/kg/hr TITR MARIAJOSE 4.309 mls/hr Administration Protocol 1 MCG/KG/HR Sodium Chloride 100 mls @ 999 mls/hr 11/10/18 11:02 Nacl 0.9% IV MARY PRN Hypotension Sodium Chloride 100 mls @ 999 mls/hr 11/10/18 11:26 Nacl 0.9% IV MARY PRN Hypotension Insulin Human Isoph/Insulin Regular 22 unit 11/10/18 17:00 11/11/18 07:33 Humulin 70/30 SUB-Q 22 unit BIDDIAB MARIAJOSE Administration Insulin Human Regular 0 units 11/07/18 18:00 11/11/18 06:07 Humulin R SUB-Q 3 units Q6HR MARIAJOSE Administration Protocol Lansoprazole 30 mg 11/09/18 10:00 11/10/18 21:59 Prevacid Solutab FEEDTUBE 30 mg BID MARIAJOSE Administration Levetiracetam 1,000 mg 11/10/18 10:00 11/10/18 21:59 Keppra PO 1,000 mg BID MARIAJOSE Administration Modafinil 100 mg 11/11/18 10:00 Provigil PO QAM MARIAJOSE Multi-Ingred Cream/Lotion/Oil/Oint 1 applic 11/06/18 08:26 Artificial Tears Ophth Oint OU Q4HR PRN Dry Eye(s) Simple Syrup 15 ml 11/08/18 18:38 Simple Syrup FEEDTUBE PRN PRN Hypoglycemia Simple Syrup 30 ml 11/08/18 18:38 Simple Syrup FEEDTUBE PRN PRN Hypoglycemia Sodium Bicarbonate 325 mg 11/08/18 18:38 Sodium Bicarbonate FEEDTUBE PRN PRN For Clogged Feeding Tube Sodium Chloride 10 ml 11/06/18 22:00 11/10/18 23:40 Sodium Chloride Flush Syringe 10 Ml IV Not Given BID MARIAJOSE Sodium Chloride 10 ml 11/06/18 12:42 Sodium Chloride Flush Syringe 10 Ml IV PRN PRN LINE FLUSH Tamsulosin HCl 0.4 mg 11/10/18 13:00 11/10/18 13:46 Flomax PO 0.4 mg QDAY MARIAJOSE Administration Nutrition/Malnutrition Assess - Dietary Evaluation Nutrition/Malnutrition Findings: Nutrition Notes Start: 11/07/18 14:40 Freq: Status: Active Protocol: Document 11/09/18 13:10 LP (Rec: 11/09/18 13:15 LP [id number]) Nutrition Notes Initial or Follow up Reassessment Current Diagnosis CKD (stage V CKD),Diabetes Other Pertinent Diagnosis on HD, PAD, Anoxic brain injury, Cardiopulmonary arrest Current Diet Glucerna 1.2 at 20ml/hr Labs/Tests Na 150 BUN 44 CR 7.7 Pertinent Medications Reviewed Height 6 ft 2 in Weight 109 kg [place] Body Weight (kg) 86.36 BMI 30.8 Subjective/Other Information Consult for TF. Pt continue on vent. Wt change noted and could be due to fluid retention. Burn Absent Trauma Absent #1 Nutrition Diagnosis Inadequate oral intake Diagnosis Progress(for reassessment Continues documentation) Is patient on ventilator? Yes Is Patient Ambulatory and/or Out of Bed No REE-([facility]-confined to bed) 2480.328 Kcal/Kg value to use for calculation 20 Approximate Energy Requirements Using 2180 kcal/Kg Calculation Used for Recommendations Kcal/kg Additional Notes Protein Needs: 103-172g (1.2- 2g/kg) Fluid Needs: 1 ml/kcal Nutrition Intervention Change Diet Order: TF Nutrition Support: Glucerna 1.2 at 75ml/hr 250ml q4h for hypernatremia 100ml q4h once resolved Kcal 2,160 Protein (gm) 108 Fluid (mL) 1,449 Goal #1 Meet at least 80% of kcal and protein needs Anticipated Discharge Needs: Unable to determine at this time Follow-Up By: 11/11/18 Additional Comments Follow for TF start/tolerance
--- NOTE | 2018-11-11 10:14 | Progress Note ---
Assessment and Plan Can consider addition of BB and/or ACEI/ARB if BPs permit. Continue supportive measures. Overall poor prognosis. The patient has been seen in conjunction with Dr. Loving who agrees with the assessment and plan of care. - Patient Problems (1) Cardiopulmonary arrest Current Visit: Yes Status: Acute (2) Cardiomyopathy Current Visit: Yes Status: Acute (3) DKA (diabetic ketoacidoses) Current Visit: Yes Status: Acute Qualifiers: Diabetes mellitus type: type 2 Diabetes mellitus complication detail: with coma Qualified Code(s): E11.11 - Type 2 diabetes mellitus with ketoacidosis with coma (4) Metabolic acidosis Current Visit: Yes Status: Acute (5) Anoxic brain injury Current Visit: Yes Status: Suspected (6) ESRD (end stage renal disease) on dialysis Current Visit: Yes Status: Chronic (7) Anemia Current Visit: Yes Status: Acute (8) Thrombocytopenia Current Visit: Yes Status: Acute (9) PAD (peripheral artery disease) Current Visit: Yes Status: Chronic (10) History of seizures Current Visit: Yes Status: Chronic (11) Tobacco use Current Visit: Yes Status: Chronic Subjective Date of service: 11/11/18 Principal diagnosis: Ac hypoxemic resp failure; DKA; Severe sepsis with shock; ESRD on dialysis Interval history: pt remains intubated, nonresponsive. Objective Last Vital Signs Temp 100.1 F H 11/11/18 08:00 Pulse 120 H 11/11/18 09:00 Resp 27 H 11/11/18 09:00 BP 115/70 11/11/18 09:00 Pulse Ox 96 11/11/18 09:00 - Physical Examination General: Other (intubated, unresponsive) HEENT: Positive: Other (patient is intubated. Not responsive. Not on any IV sedation. Pupils are fixed and dilated.) Cardiac: Positive: Reg Rate and Rhythm, S1/S2 Abdomen: Positive: Unremarkable, Soft, Active Bowel Sounds Extremities: Present: Cool. Absent: edema - Labs and Meds Cardiac Enzymes 11/11/18 Range/Units 04:24 AST 152 H (5-40) units/L CBC 11/11/18 Range/Units 04:24 WBC 10.4 (4.5-11.0) K/mm3 RBC 2.98 L (3.65-5.03) M/mm3 Hgb 9.1 L (11.8-15.2) gm/dl Hct 27.4 L (35.5-45.6) % Plt Count 114 L (140-440) K/mm3 Lymph # Scheduling Representative [place] # Scheduling Representative Eos # Scheduling Representative Baso # Scheduling Representative Comprehensive Metabolic Panel 11/11/18 Range/Units 04:24 Sodium 142 (137-145) mmol/L Potassium 3.9 (3.6-5.0) mmol/L Chloride 101.2 (98-107) mmol/L Carbon Dioxide 27 (22-30) mmol/L BUN 23 H (9-20) mg/dL Creatinine 5.5 H (0.8-1.5) mg/dL Glucose 147 H (75-100) mg/dL Calcium 7.9 L (8.4-10.2) mg/dL AST 152 H (5-40) units/L ALT 247 H (7-56) units/L Alkaline Phosphatase 128 (35-129) units/L Total Protein 6.3 D (6.3-8.2) g/dL Albumin 2.3 L (3.9-5) g/dL - Imaging and Cardiology EKG: report reviewed, image reviewed Echo: report reviewed (EF 30-35%, mild MR and TR. ) - Telemetry EKG Rhythm: Sinus Rhythm - EKG Sinus rhythms and dysrhythmias: sinus arrest or pause Ventricular dysrhythmias: idioventricular escape rh AV and intraventricular conduction: intraventricular conducti Repolarization changes or abnormalities: Suggestive of hyperkalemia (wide QRS complexes and ST depression evaluation probably all due to severe hyperkalemia. The last EKG does not show any ST elevation but continues to show peaked T waves.) - Allied health notes Allied health notes reviewed: nursing
[2018-11-11] MEDS ORDERED: NACL 0.9% 100 ML IV PRN (10:33)
--- NOTE | 2018-11-11 10:35 | Progress Note ---
Assessment and Plan Acute Kidney Injury secondary to ischemic ATN from hypotension, cardiac arrest, in setting of underlying hx CKD 4: Severe Renal Failure, requiring hemodialysis initiation: S/P High Anion Gap Metabolic Acidosis with elevated lactic acidosis with DKA: S/P Hyperkalemia: S/P Hyperphosphatemia: Hypernatremia: Hypokalemia, Resolving: - s/p HD yesterday, HD again today with no UF. - UOP was 1500 ml last 24 hours and had 700 ml output since 6 a.m this morning per RN - Strict monitoring of I/O's - CXR today-No infiltrates or effusion - Hypernatremia- On free water flushes of 250 ml every 4 hours via NG tube - Monitor BMP daily - Renally dose medications - Avoid Nephrotoxic agents - Obtain daily weights - Salgado Catheter: Yes - Assess dialysis needs daily - Renal plan formulated with Dr. Marti S/p Cardiopulmonary arrest. STEMI: Hypoxic respiratory failure: -S/P CPR and ACLS protocol -Now off pressor support -Cardiology on board -Intubated on Vent. 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 per neurology -On IV Keppra -As per Neurology Critical Care time: 35 minutes Bran Young MD [phone] Subjective Date of service: 11/11/18 Principal diagnosis: Ac hypoxemic resp failure; DKA; Severe sepsis with shock; ESRD on dialysis Interval history: Intubated on Vent. Tolerated HD yesterday. Objective - Exam Narrative Exam: General appearance: well-developed, sedated on ventilator, intubated EENT: ATNC, PERRL Neck: no JVD, supple Respiratory: Present: Decreased Breath Sounds Cardiology: tachycardia, S1S2 Gastrointestinal: normoactive bowel sounds Integumentary: warm and dry Neurologic: alert and oriented x3 Musculoskeletal: other (trace edema to feet) - Vital Signs Vital signs: Vital Signs - 12hr 11/10/18 11/10/18 11/10/18 23:00 23:30 23:57 Temperature 99.3 F Pulse Rate 103 H 90 Pulse Rate [ From Monitor] Respiratory 19 20 Rate Blood Pressure 147/98 140/84 O2 Sat by Pulse 100 99 Oximetry 11/11/18 11/11/18 11/11/18 00:00 00:30 01:00 Temperature Pulse Rate 85 82 82 Pulse Rate [ From Monitor] Respiratory 20 20 20 Rate Blood Pressure 133/77 130/81 132/83 O2 Sat by Pulse 100 98 99 Oximetry 11/11/18 11/11/18 11/11/18 01:09 01:30 02:00 Temperature Pulse Rate 80 84 86 Pulse Rate [ From Monitor] Respiratory 20 20 Rate Blood Pressure 132/83 154/100 149/89 O2 Sat by Pulse 100 98 100 Oximetry 11/11/18 11/11/18 11/11/18 02:30 03:00 03:31 Temperature Pulse Rate 87 88 91 H Pulse Rate [ From Monitor] Respiratory 20 22 23 Rate Blood Pressure 146/91 145/91 O2 Sat by Pulse 99 99 98 Oximetry 11/11/18 11/11/18 11/11/18 03:41 04:00 04:31 Temperature 99.6 F Pulse Rate 88 100 H Pulse Rate [ From Monitor] Respiratory 26 H 20 Rate Blood Pressure 175/100 220/112 O2 Sat by Pulse 100 99 100 Oximetry 11/11/18 11/11/18 11/11/18 04:48 04:53 05:00 Temperature Pulse Rate 123 H 114 H 112 H Pulse Rate [ From Monitor] Respiratory 21 Rate Blood Pressure 213/115 162/88 140/80 O2 Sat by Pulse 100 98 Oximetry 11/11/18 11/11/18 11/11/18 05:30 06:00 06:30 Temperature Pulse Rate 114 H 109 H 106 H Pulse Rate [ From Monitor] Respiratory 17 20 20 Rate Blood Pressure 147/75 130/71 129/73 O2 Sat by Pulse 97 95 96 Oximetry 11/11/18 11/11/18 11/11/18 07:00 07:30 07:34 Temperature Pulse Rate 110 H 110 H 105 H Pulse Rate [ From Monitor] Respiratory 24 28 H Rate Blood Pressure 161/81 164/92 164/92 O2 Sat by Pulse 96 98 Oximetry 11/11/18 11/11/18 11/11/18 08:00 08:01 08:29 Temperature 100.1 F H Pulse Rate 111 H 108 H Pulse Rate [ 109 H From Monitor] Respiratory 28 H 28 H Rate Blood Pressure 113/66 113/56 O2 Sat by Pulse 99 98 98 Oximetry 11/11/18 11/11/18 11/11/18 08:30 09:00 09:30 Temperature Pulse Rate 110 H 120 H 110 H Pulse Rate [ From Monitor] Respiratory 27 H 27 H 20 Rate Blood Pressure 113/56 115/70 121/73 O2 Sat by Pulse 96 96 96 Oximetry 11/11/18 10:00 Temperature Pulse Rate 106 H Pulse Rate [ From Monitor] Respiratory 20 Rate Blood Pressure 117/74 O2 Sat by Pulse 96 Oximetry - Lab 11/11/18 04:24 11/11/18 04:24 Most recent lab results Calcium 7.9 mg/dL (8.4-10.2) L 11/11/18 04:24 Phosphorus 2.50 mg/dL (2.5-4.5) 11/08/18 04:23 Magnesium 2.60 mg/dL (1.7-2.3) H 11/06/18 14:15 Medications & Allergies - Medications Allergies/Adverse Reactions: Allergies No Known Allergies Allergy (Verified 03/17/18 11:54) Home Medications: Home Medications Medication Instructions Recorded Confirmed Last Taken Type Esomeprazole Magnesium [NexIUM] 20 mg PO QDAY #30 suspdr.pkt 03/17/18 11/07/18 Unknown Rx HYDROcodone/APAP 5-325 [[place] 1 each PO Q6HR PRN #15 tablet 03/17/18 11/07/18 Unknown Rx 5/325] Metoclopramide [Reglan] 10 mg PO TID #21 tab 03/17/18 11/07/18 Unknown Rx Ondansetron [Zofran Odt] 4 mg PO Q4HR PRN #20 tab.rapdis 03/17/18 11/07/18 Unknown Rx Active Medications: Generic Name Dose Route Start Last Admin Trade Name Freq PRN Reason Stop Dose Admin Acetaminophen 650 mg 11/06/18 22:22 11/11/18 07:33 Tylenol FEEDTUBE 650 mg Q6H PRN Administration Fever >101 Lipase/Protease/Amylase 1 each 11/08/18 18:38 Pancreaze 10,500 Unit FEEDTUBE PRN PRN For Clogged Feeding Tube Baclofen 5 mg 11/10/18 14:00 11/11/18 07:34 Lioresal PO 5 mg TID MARIAJOSE Administration Chlorpromazine HCl 10 mg 11/07/18 08:07 11/10/18 05:36 Thorazine PO 10 mg Q6H PRN Administration Hiccups Dextrose 50 ml 11/07/18 16:46 11/10/18 23:43 D50w (25gm) Syringe IV 50 ml PRN PRN Administration Hypoglycemia Fentanyl 50 mcg 11/06/18 08:37 Sublimaze IV Q10MIN PRN ANALGESIA Hydralazine HCl 10 mg 11/08/18 00:56 11/11/18 07:34 Apresoline IV 10 mg Q4H PRN Administration Hypertension Hydrophilic Ointment 1 applic 11/06/18 08:26 11/10/18 19:52 Vaseline Lip Therapy TP 1 applic Q2HR PRN Administration Dry Lips Fentanyl Citrate 2,000 mcg in 100 mls @ 4.309 mls/hr 11/06/18 10:00 11/10/18 18:49 Fentanyl Drip Premix IV 1 mcg/kg/hr TITR MARIAJOSE 4.309 mls/hr Administration Protocol 1 MCG/KG/HR Sodium Chloride 100 mls @ 999 mls/hr 11/10/18 11:02 Nacl 0.9% IV MARY PRN Hypotension Sodium Chloride 100 mls @ 999 mls/hr 11/10/18 11:26 Nacl 0.9% IV MARY PRN Hypotension Sodium Chloride 100 mls @ 999 mls/hr 11/11/18 10:33 Nacl 0.9% IV MARY PRN Hypotension Insulin Human Isoph/Insulin Regular 22 unit 11/10/18 17:00 11/11/18 07:33 Humulin 70/30 SUB-Q 22 unit BIDDIAB MARIAJOSE Administration Insulin Human Regular 0 units 11/07/18 18:00 11/11/18 06:07 Humulin R SUB-Q 3 units Q6HR MARIAJOSE Administration Protocol Lansoprazole 30 mg 11/09/18 10:00 11/10/18 21:59 Prevacid Solutab FEEDTUBE 30 mg BID MARIAJOSE Administration Levetiracetam 1,000 mg 11/10/18 10:00 11/10/18 21:59 Keppra PO 1,000 mg BID MARIAJOSE Administration Modafinil 100 mg 11/11/18 10:00 Provigil PO QAM MARIAJOSE Multi-Ingred Cream/Lotion/Oil/Oint 1 applic 11/06/18 08:26 Artificial Tears Ophth Oint OU Q4HR PRN Dry Eye(s) Simple Syrup 15 ml 11/08/18 18:38 Simple Syrup FEEDTUBE PRN PRN Hypoglycemia Simple Syrup 30 ml 11/08/18 18:38 Simple Syrup FEEDTUBE PRN PRN Hypoglycemia Sodium Bicarbonate 325 mg 11/08/18 18:38 Sodium Bicarbonate FEEDTUBE PRN PRN For Clogged Feeding Tube Sodium Chloride 10 ml 11/06/18 22:00 11/10/18 23:40 Sodium Chloride Flush Syringe 10 Ml IV Not Given BID MARIAJOSE Sodium Chloride 10 ml 11/06/18 12:42 Sodium Chloride Flush Syringe 10 Ml IV PRN PRN LINE FLUSH Tamsulosin HCl 0.4 mg 11/10/18 13:00 11/10/18 13:46 Flomax PO 0.4 mg QDAY MARIAJOSE Administration
[2018-11-11] MEDS: PROVIGIL PO SCH (11:05)
[2018-11-11] MEDS: KEPPRA PO SCH ×2 (11:05→21:44)
[2018-11-11] MEDS: PREVACID SOLUTAB FEEDTUBE SCH ×2 (11:05→21:44)
[2018-11-11] MEDS: FLOMAX PO SCH (11:05)
[2018-11-11] MEDS: SODIUM CHLORIDE FLUSH SYRINGE 10 ML IV SCH ×2 (11:06→21:45)
[2018-11-11] MEDS: fentaNYL DRIP Premix 2,000 MCG/100 ML BAG IV SCH (11:59)
--- NOTE | 2018-11-11 12:06 | Progress Note ---
Assessment and Plan This is doctor eliud dictating the progress note on Stephanie Mae 42-year-old male with a history of diabetes and and stage renal disease who was admitted with anorexic brain injury and was seen by me few days ago. Today the patient seems much better. Physical examination. Patient opens his eyes when his name is called. Has spontaneous blinking pupils react to light and accommodation extraocular movement is intact. Painful stimuli results into grimacing no spontaneous movement of extremities generalized areflexia. No response to plantar stimulation. Impression. 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 I have refilled the EEG which does not show any epileptiform activity or seizure activity. The background rhythm is a little slow other than that EEG is normal. Recommendation. Continue Keppra as prescribed. Prognosis for meaningful recovery seems to be good. Subjective Principal diagnosis: Ac hypoxemic resp failure; DKA; Severe sepsis with shock; ESRD on dialysis Objective - Vital Sign Vital Signs - 12hr 11/11/18 11/11/18 11/11/18 00:00 00:30 01:00 Temperature Pulse Rate 85 82 82 Pulse Rate [ From Monitor] Respiratory 20 20 20 Rate Blood Pressure 133/77 130/81 132/83 O2 Sat by Pulse 100 98 99 Oximetry 11/11/18 11/11/18 11/11/18 01:09 01:30 02:00 Temperature Pulse Rate 80 84 86 Pulse Rate [ From Monitor] Respiratory 20 20 Rate Blood Pressure 132/83 154/100 149/89 O2 Sat by Pulse 100 98 100 Oximetry 11/11/18 11/11/18 11/11/18 02:30 03:00 03:31 Temperature Pulse Rate 87 88 91 H Pulse Rate [ From Monitor] Respiratory 20 22 23 Rate Blood Pressure 146/91 145/91 O2 Sat by Pulse 99 99 98 Oximetry 11/11/18 11/11/18 11/11/18 03:41 04:00 04:31 Temperature 99.6 F Pulse Rate 88 100 H Pulse Rate [ From Monitor] Respiratory 26 H 20 Rate Blood Pressure 175/100 220/112 O2 Sat by Pulse 100 99 100 Oximetry 11/11/18 11/11/18 11/11/18 04:48 04:53 05:00 Temperature Pulse Rate 123 H 114 H 112 H Pulse Rate [ From Monitor] Respiratory 21 Rate Blood Pressure 213/115 162/88 140/80 O2 Sat by Pulse 100 98 Oximetry 11/11/18 11/11/18 11/11/18 05:30 06:00 06:30 Temperature Pulse Rate 114 H 109 H 106 H Pulse Rate [ From Monitor] Respiratory 17 20 20 Rate Blood Pressure 147/75 130/71 129/73 O2 Sat by Pulse 97 95 96 Oximetry 11/11/18 11/11/18 11/11/18 07:00 07:30 07:34 Temperature Pulse Rate 110 H 110 H 105 H Pulse Rate [ From Monitor] Respiratory 24 28 H Rate Blood Pressure 161/81 164/92 164/92 O2 Sat by Pulse 96 98 Oximetry 11/11/18 11/11/18 11/11/18 08:00 08:01 08:29 Temperature 100.1 F H Pulse Rate 111 H 108 H Pulse Rate [ 109 H From Monitor] Respiratory 28 H 28 H Rate Blood Pressure 113/66 113/56 O2 Sat by Pulse 99 98 98 Oximetry 11/11/18 11/11/18 11/11/18 08:30 09:00 09:30 Temperature Pulse Rate 110 H 120 H 110 H Pulse Rate [ From Monitor] Respiratory 27 H 27 H 20 Rate Blood Pressure 113/56 115/70 121/73 O2 Sat by Pulse 96 96 96 Oximetry 11/11/18 11/11/18 11/11/18 10:00 10:30 11:00 Temperature Pulse Rate 106 H 106 H 108 H Pulse Rate [ From Monitor] Respiratory 20 7 L 20 Rate Blood Pressure 117/74 114/78 126/75 O2 Sat by Pulse 96 98 97 Oximetry - Laboratory Findings CBC and BMP: 11/11/18 04:24 11/11/18 04:24 Abnormal Lab Findings: Abnormal Labs 11/06/18 11/06/18 11/06/18 08:22 09:02 09:02 WBC 20.1 H RBC 3.40 L Hgb 10.5 L Hct MCV 119 H MCHC 26 L RDW 15.7 H Plt Count Lymph % (Auto) Lymph # Seg Neutrophils % 80.1 H Seg Neuts % (Manual) 76.0 H Lymphocytes % (Manual) 4.0 L Monocytes % (Manual) Nucleated RBC % 1.0 H Seg Neutrophils # 16.1 H Seg Neutrophils # Man 15.3 H Lymphocytes # (Manual) 0.8 L Monocytes # (Manual) POC ABG pH POC ABG pCO2 POC ABG pO2 VBG pH Sodium 129 L Potassium 7.7 H* Chloride 79.7 L Carbon Dioxide 4 L* BUN 93 H Creatinine 7.4 H Glucose 1469 H* POC Glucose > 500 H Lactic Acid Calcium Phosphorus Magnesium Direct Bilirubin AST 2679 H ALT 1175 H C-Reactive Protein Total Protein 6.1 L Albumin 2.9 L Salicylates Acetaminophen 11/06/18 11/06/18 11/06/18 09:02 09:02 09:02 WBC RBC Hgb Hct MCV MCHC RDW Plt Count Lymph % (Auto) Lymph # Seg Neutrophils % Seg Neuts % (Manual) Lymphocytes % (Manual) Monocytes % (Manual) Nucleated RBC % Seg Neutrophils # Seg Neutrophils # Man Lymphocytes # (Manual) Monocytes # (Manual) POC ABG pH POC ABG pCO2 POC ABG pO2 VBG pH Sodium Potassium Chloride Carbon Dioxide BUN Creatinine Glucose POC Glucose Lactic Acid 9.40 H* Calcium Phosphorus Magnesium Direct Bilirubin AST ALT C-Reactive Protein Total Protein Albumin Salicylates < 0.3 L Acetaminophen < 5.0 L 11/06/18 11/06/18 11/06/18 09:03 10:19 10:19 WBC RBC Hgb Hct MCV MCHC RDW Plt Count Lymph % (Auto) Lymph # Seg Neutrophils % Seg Neuts % (Manual) Lymphocytes % (Manual) Monocytes % (Manual) Nucleated RBC % Seg Neutrophils # Seg Neutrophils # Man Lymphocytes # (Manual) Monocytes # (Manual) POC ABG pH 6.841 L POC ABG pCO2 POC ABG pO2 VBG pH Sodium 131 L Potassium 8.9 H* Chloride 85.3 L Carbon Dioxide 6 L* BUN 90 H Creatinine 7.1 H Glucose 1353 H* POC Glucose Lactic Acid Calcium 7.8 L Phosphorus 14.50 H Magnesium 2.70 H Direct Bilirubin AST ALT C-Reactive Protein Total Protein Albumin Salicylates Acetaminophen 11/06/18 11/06/18 11/06/18 12:07 13:22 13:22 WBC RBC Hgb Hct MCV MCHC RDW Plt Count Lymph % (Auto) Lymph # Seg Neutrophils % Seg Neuts % (Manual) Lymphocytes % (Manual) Monocytes % (Manual) Nucleated RBC % Seg Neutrophils # Seg Neutrophils # Man Lymphocytes # (Manual) Monocytes # (Manual) POC ABG pH POC ABG pCO2 POC ABG pO2 VBG pH 6.982 L* Sodium 135 L Potassium 7.0 H* D Chloride 88.4 L Carbon Dioxide 5 L* BUN 89 H Creatinine 7.2 H Glucose 1326 H* POC Glucose Lactic Acid 8.50 H* Calcium Phosphorus Magnesium Direct Bilirubin AST ALT C-Reactive Protein Total Protein Albumin Salicylates Acetaminophen 11/06/18 11/06/18 11/06/18 14:15 14:15 15:21 WBC RBC Hgb Hct MCV MCHC RDW Plt Count Lymph % (Auto) Lymph # Seg Neutrophils % Seg Neuts % (Manual) Lymphocytes % (Manual) Monocytes % (Manual) Nucleated RBC % Seg Neutrophils # Seg Neutrophils # Man Lymphocytes # (Manual) Monocytes # (Manual) POC ABG pH POC ABG pCO2 POC ABG pO2 VBG pH Sodium Potassium 6.6 H* 6.0 H Chloride 95.3 L 93.3 L Carbon Dioxide 4 L* 6 L* BUN 83 H 91 H Creatinine 6.9 H 7.3 H Glucose 1205 H* 1174 H* POC Glucose Lactic Acid Calcium 8.2 L Phosphorus 13.00 H Magnesium 2.60 H Direct Bilirubin AST ALT C-Reactive Protein Total Protein Albumin Salicylates Acetaminophen 11/06/18 11/06/18 11/06/18 15:21 16:14 16:33 WBC RBC Hgb Hct MCV MCHC RDW Plt Count Lymph % (Auto) Lymph # Seg Neutrophils % Seg Neuts % (Manual) Lymphocytes % (Manual) Monocytes % (Manual) Nucleated RBC % Seg Neutrophils # Seg Neutrophils # Man Lymphocytes # (Manual) Monocytes # (Manual) POC ABG pH 7.004 L POC ABG pCO2 33.0 L POC ABG pO2 178 H VBG pH Sodium Potassium Chloride Carbon Dioxide BUN Creatinine Glucose POC Glucose > 500 H Lactic Acid 7.60 H* Calcium Phosphorus Magnesium Direct Bilirubin AST ALT C-Reactive Protein Total Protein Albumin Salicylates Acetaminophen 11/06/18 11/06/18 11/06/18 17:34 19:30 19:30 WBC RBC Hgb Hct MCV MCHC RDW Plt Count Lymph % (Auto) Lymph # Seg Neutrophils % Seg Neuts % (Manual) Lymphocytes % (Manual) Monocytes % (Manual) Nucleated RBC % Seg Neutrophils # Seg Neutrophils # Man Lymphocytes # (Manual) Monocytes # (Manual) POC ABG pH POC ABG pCO2 POC ABG pO2 VBG pH Sodium Potassium 5.5 H Chloride 97.4 L 97.7 L Carbon Dioxide 10 L 11 L BUN 88 H 87 H Creatinine 7.5 H 7.6 H Glucose 1054 H* 954 H* POC Glucose Lactic Acid Calcium 7.7 L 7.4 L Phosphorus Magnesium Direct Bilirubin AST ALT C-Reactive Protein 1.90 H Total Protein Albumin Salicylates Acetaminophen 11/06/18 11/06/18 11/06/18 20:31 20:40 20:40 WBC RBC Hgb Hct MCV MCHC RDW Plt Count Lymph % (Auto) Lymph # Seg Neutrophils % Seg Neuts % (Manual) Lymphocytes % (Manual) Monocytes % (Manual) Nucleated RBC % Seg Neutrophils # Seg Neutrophils # Man Lymphocytes # (Manual) Monocytes # (Manual) POC ABG pH 7.245 L POC ABG pCO2 POC ABG pO2 132 H VBG pH Sodium Potassium Chloride Carbon Dioxide BUN Creatinine Glucose 907 H* POC Glucose Lactic Acid 4.40 H* Calcium Phosphorus Magnesium Direct Bilirubin AST ALT C-Reactive Protein Total Protein Albumin Salicylates Acetaminophen 11/06/18 11/06/18 11/06/18 22:05 22:40 23:35 WBC RBC Hgb Hct MCV MCHC RDW Plt Count Lymph % (Auto) Lymph # Seg Neutrophils % Seg Neuts % (Manual) Lymphocytes % (Manual) Monocytes % (Manual) Nucleated RBC % Seg Neutrophils # Seg Neutrophils # Man Lymphocytes # (Manual) Monocytes # (Manual) POC ABG pH POC ABG pCO2 POC ABG pO2 VBG pH Sodium Potassium Chloride Carbon Dioxide 13 L BUN 86 H Creatinine 7.8 H Glucose 822 H* 726 H* POC Glucose Lactic Acid 3.40 H* Calcium 7.5 L Phosphorus Magnesium Direct Bilirubin AST ALT C-Reactive Protein Total Protein Albumin Salicylates Acetaminophen 11/07/18 11/07/18 11/07/18 01:25 01:26 03:15 WBC RBC Hgb Hct MCV MCHC RDW Plt Count Lymph % (Auto) Lymph # Seg Neutrophils % Seg Neuts % (Manual) Lymphocytes % (Manual) Monocytes % (Manual) Nucleated RBC % Seg Neutrophils # Seg Neutrophils # Man Lymphocytes # (Manual) Monocytes # (Manual) POC ABG pH POC ABG pCO2 POC ABG pO2 VBG pH Sodium Potassium Chloride Carbon Dioxide BUN Creatinine Glucose 602 H* POC Glucose > 500 H > 500 H Lactic Acid Calcium Phosphorus Magnesium Direct Bilirubin AST ALT C-Reactive Protein Total Protein Albumin Salicylates Acetaminophen 11/07/18 11/07/18 11/07/18 03:20 04:32 04:47 WBC RBC Hgb Hct MCV MCHC RDW Plt Count Lymph % (Auto) Lymph # Seg Neutrophils % Seg Neuts % (Manual) Lymphocytes % (Manual) Monocytes % (Manual) Nucleated RBC % Seg Neutrophils # Seg Neutrophils # Man Lymphocytes # (Manual) Monocytes # (Manual) POC ABG pH POC ABG pCO2 30.3 L POC ABG pO2 153 H VBG pH Sodium 149 H Potassium Chloride Carbon Dioxide 16 L BUN 86 H Creatinine 8.3 H Glucose 499.2 H POC Glucose 360 H Lactic Acid Calcium 7.6 L Phosphorus Magnesium Direct Bilirubin AST ALT C-Reactive Protein Total Protein Albumin Salicylates Acetaminophen 11/07/18 11/07/18 11/07/18 05:26 06:35 06:36 WBC RBC Hgb Hct MCV MCHC RDW Plt Count Lymph % (Auto) Lymph # Seg Neutrophils % Seg Neuts % (Manual) Lymphocytes % (Manual) Monocytes % (Manual) Nucleated RBC % Seg Neutrophils # Seg Neutrophils # Man Lymphocytes # (Manual) Monocytes # (Manual) POC ABG pH POC ABG pCO2 POC ABG pO2 VBG pH Sodium 153 H Potassium 3.2 L Chloride 109.7 H Carbon Dioxide BUN 84 H Creatinine 8.6 H Glucose 249 H POC Glucose 341 H 274 H Lactic Acid Calcium 7.6 L Phosphorus Magnesium Direct Bilirubin AST ALT C-Reactive Protein Total Protein Albumin Salicylates Acetaminophen 11/07/18 11/07/18 11/07/18 07:33 09:00 09:52 WBC RBC Hgb Hct MCV MCHC RDW Plt Count Lymph % (Auto) Lymph # Seg Neutrophils % Seg Neuts % (Manual) Lymphocytes % (Manual) Monocytes % (Manual) Nucleated RBC % Seg Neutrophils # Seg Neutrophils # Man Lymphocytes # (Manual) Monocytes # (Manual) POC ABG pH POC ABG pCO2 POC ABG pO2 VBG pH Sodium Potassium Chloride Carbon Dioxide BUN Creatinine Glucose POC Glucose 243 H 182 H 227 H Lactic Acid Calcium Phosphorus Magnesium Direct Bilirubin AST ALT C-Reactive Protein Total Protein Albumin Salicylates Acetaminophen 11/07/18 11/07/18 11/07/18 10:50 10:50 10:50 WBC 11.3 H RBC 2.85 L Hgb 8.7 L Hct 25.3 L D MCV MCHC RDW Plt Count Lymph % (Auto) 9.7 L Lymph # 1.1 L Seg Neutrophils % 83.3 H Seg Neuts % (Manual) Lymphocytes % (Manual) Monocytes % (Manual) Nucleated RBC % Seg Neutrophils # 9.4 H Seg Neutrophils # Man Lymphocytes # (Manual) Monocytes # (Manual) POC ABG pH POC ABG pCO2 POC ABG pO2 VBG pH Sodium 154 H Potassium 3.2 L Chloride 110.2 H Carbon Dioxide BUN 82 H Creatinine 8.3 H Glucose 186 H POC Glucose 200 H Lactic Acid Calcium 7.3 L Phosphorus Magnesium Direct Bilirubin AST ALT C-Reactive Protein Total Protein Albumin Salicylates Acetaminophen 11/07/18 11/07/18 11/07/18 12:00 12:05 13:13 WBC RBC Hgb Hct MCV MCHC RDW Plt Count Lymph % (Auto) Lymph # Seg Neutrophils % Seg Neuts % (Manual) Lymphocytes % (Manual) Monocytes % (Manual) Nucleated RBC % Seg Neutrophils # Seg Neutrophils # Man Lymphocytes # (Manual) Monocytes # (Manual) POC ABG pH POC ABG pCO2 POC ABG pO2 VBG pH Sodium Potassium Chloride Carbon Dioxide BUN Creatinine Glucose POC Glucose 179 H 190 H Lactic Acid 2.50 H* Calcium Phosphorus Magnesium Direct Bilirubin AST ALT C-Reactive Protein Total Protein Albumin Salicylates Acetaminophen 11/07/18 11/07/18 11/07/18 13:20 14:05 15:18 WBC RBC Hgb Hct MCV MCHC RDW Plt Count Lymph % (Auto) Lymph # Seg Neutrophils % Seg Neuts % (Manual) Lymphocytes % (Manual) Monocytes % (Manual) Nucleated RBC % Seg Neutrophils # Seg Neutrophils # Man Lymphocytes # (Manual) Monocytes # (Manual) POC ABG pH POC ABG pCO2 POC ABG pO2 VBG pH Sodium Potassium 3.1 L Chloride Carbon Dioxide BUN 50 H Creatinine 5.0 H Glucose 176 H POC Glucose 189 H 215 H Lactic Acid Calcium 7.4 L Phosphorus Magnesium Direct Bilirubin AST ALT C-Reactive Protein Total Protein Albumin Salicylates Acetaminophen 11/07/18 11/07/18 11/07/18 16:25 17:37 23:23 WBC RBC Hgb Hct MCV MCHC RDW Plt Count Lymph % (Auto) Lymph # Seg Neutrophils % Seg Neuts % (Manual) Lymphocytes % (Manual) Monocytes % (Manual) Nucleated RBC % Seg Neutrophils # Seg Neutrophils # Man Lymphocytes # (Manual) Monocytes # (Manual) POC ABG pH POC ABG pCO2 POC ABG pO2 VBG pH Sodium Potassium Chloride Carbon Dioxide BUN Creatinine Glucose POC Glucose 180 H 215 H 234 H Lactic Acid Calcium Phosphorus Magnesium Direct Bilirubin AST ALT C-Reactive Protein Total Protein Albumin Salicylates Acetaminophen 11/08/18 11/08/18 11/08/18 04:17 04:23 04:23 WBC RBC 2.98 L Hgb 9.3 L Hct 26.7 L MCV MCHC 35 H RDW Plt Count 130 L Lymph % (Auto) Lymph # Seg Neutrophils % 80.3 H Seg Neuts % (Manual) Lymphocytes % (Manual) Monocytes % (Manual) Nucleated RBC % Seg Neutrophils # 7.8 H Seg Neutrophils # Man Lymphocytes # (Manual) Monocytes # (Manual) POC ABG pH 7.520 H POC ABG pCO2 POC ABG pO2 111 H VBG pH Sodium Potassium 3.0 L Chloride Carbon Dioxide BUN 44 H Creatinine 6.3 H Glucose 245 H POC Glucose Lactic Acid Calcium 7.3 L Phosphorus Magnesium Direct Bilirubin AST ALT C-Reactive Protein Total Protein Albumin Salicylates Acetaminophen 11/08/18 11/08/18 11/08/18 05:19 08:00 08:00 WBC RBC Hgb Hct MCV MCHC RDW Plt Count Lymph % (Auto) Lymph # Seg Neutrophils % Seg Neuts % (Manual) Lymphocytes % (Manual) Monocytes % (Manual) Nucleated RBC % Seg Neutrophils # Seg Neutrophils # Man Lymphocytes # (Manual) Monocytes # (Manual) POC ABG pH POC ABG pCO2 POC ABG pO2 VBG pH Sodium Potassium Chloride Carbon Dioxide BUN Creatinine Glucose POC Glucose 253 H Lactic Acid 2.70 H* Calcium Phosphorus Magnesium Direct Bilirubin 0.3 H AST 932 H ALT 582 H C-Reactive Protein Total Protein 5.4 L Albumin 2.6 L Salicylates Acetaminophen 11/08/18 11/08/18 11/08/18 11:36 17:51 23:28 WBC RBC Hgb Hct MCV MCHC RDW Plt Count Lymph % (Auto) Lymph # Seg Neutrophils % Seg Neuts % (Manual) Lymphocytes % (Manual) Monocytes % (Manual) Nucleated RBC % Seg Neutrophils # Seg Neutrophils # Man Lymphocytes # (Manual) Monocytes # (Manual) POC ABG pH 7.459 H POC ABG pCO2 POC ABG pO2 108 H VBG pH Sodium Potassium Chloride Carbon Dioxide BUN Creatinine Glucose POC Glucose 197 H 418 H Lactic Acid Calcium Phosphorus Magnesium Direct Bilirubin AST ALT C-Reactive Protein Total Protein Albumin Salicylates Acetaminophen 11/09/18 11/09/18 11/09/18 00:39 02:20 03:48 WBC RBC Hgb Hct MCV MCHC RDW Plt Count Lymph % (Auto) Lymph # Seg Neutrophils % Seg Neuts % (Manual) Lymphocytes % (Manual) Monocytes % (Manual) Nucleated RBC % Seg Neutrophils # Seg Neutrophils # Man Lymphocytes # (Manual) Monocytes # (Manual) POC ABG pH POC ABG pCO2 POC ABG pO2 108 H VBG pH Sodium Potassium Chloride Carbon Dioxide BUN Creatinine Glucose POC Glucose 471 H 254 H Lactic Acid Calcium Phosphorus Magnesium Direct Bilirubin AST ALT C-Reactive Protein Total Protein Albumin Salicylates Acetaminophen 11/09/18 11/09/18 11/09/18 06:02 06:02 17:49 WBC RBC 2.95 L Hgb 9.2 L Hct 26.7 L MCV MCHC RDW Plt Count 101 L Lymph % (Auto) Lymph # Seg Neutrophils % Seg Neuts % (Manual) Lymphocytes % (Manual) Monocytes % (Manual) Nucleated RBC % Seg Neutrophils # Seg Neutrophils # Man Lymphocytes # (Manual) Monocytes # (Manual) POC ABG pH POC ABG pCO2 POC ABG pO2 VBG pH Sodium 150 H Potassium Chloride 108.3 H Carbon Dioxide BUN 44 H Creatinine 7.7 H Glucose 102 H POC Glucose 184 H Lactic Acid Calcium 7.2 L Phosphorus Magnesium Direct Bilirubin AST 554 H ALT 461 H C-Reactive Protein Total Protein 5.1 L Albumin 2.6 L Salicylates Acetaminophen 11/09/18 11/09/18 11/10/18 18:49 23:32 05:00 WBC RBC Hgb Hct MCV MCHC RDW Plt Count Lymph % (Auto) Lymph # Seg Neutrophils % Seg Neuts % (Manual) Lymphocytes % (Manual) Monocytes % (Manual) Nucleated RBC % Seg Neutrophils # Seg Neutrophils # Man Lymphocytes # (Manual) Monocytes # (Manual) POC ABG pH POC ABG pCO2 46.2 H POC ABG pO2 VBG pH Sodium Potassium Chloride Carbon Dioxide BUN 33 H Creatinine 6.8 H Glucose 251 H POC Glucose 150 H Lactic Acid Calcium 7.3 L Phosphorus Magnesium Direct Bilirubin AST ALT C-Reactive Protein Total Protein Albumin Salicylates Acetaminophen 11/10/18 11/10/18 11/10/18 05:00 05:16 11:47 WBC RBC 2.95 L Hgb 8.9 L Hct 26.6 L MCV MCHC RDW Plt Count 100 L Lymph % (Auto) Lymph # Seg Neutrophils % Seg Neuts % (Manual) Lymphocytes % (Manual) Monocytes % (Manual) 8.0 H Nucleated RBC % Seg Neutrophils # Seg Neutrophils # Man Lymphocytes # (Manual) Monocytes # (Manual) POC ABG pH POC ABG pCO2 POC ABG pO2 VBG pH Sodium Potassium Chloride Carbon Dioxide BUN Creatinine Glucose POC Glucose 242 H 261 H Lactic Acid Calcium Phosphorus Magnesium Direct Bilirubin AST ALT C-Reactive Protein Total Protein Albumin Salicylates Acetaminophen 11/10/18 11/10/18 11/11/18 17:32 23:39 00:26 WBC RBC Hgb Hct MCV MCHC RDW Plt Count Lymph % (Auto) Lymph # Seg Neutrophils % Seg Neuts % (Manual) Lymphocytes % (Manual) Monocytes % (Manual) Nucleated RBC % Seg Neutrophils # Seg Neutrophils # Man Lymphocytes # (Manual) Monocytes # (Manual) POC ABG pH POC ABG pCO2 POC ABG pO2 VBG pH Sodium Potassium Chloride Carbon Dioxide BUN Creatinine Glucose POC Glucose 194 H 60 L 124 H Lactic Acid Calcium Phosphorus Magnesium Direct Bilirubin AST ALT C-Reactive Protein Total Protein Albumin Salicylates Acetaminophen 11/11/18 11/11/18 11/11/18 04:24 04:24 05:27 WBC RBC 2.98 L Hgb 9.1 L Hct 27.4 L MCV MCHC RDW Plt Count 114 L Lymph % (Auto) Lymph # Seg Neutrophils % Seg Neuts % (Manual) Lymphocytes % (Manual) Monocytes % (Manual) 10.0 H Nucleated RBC % Seg Neutrophils # Seg Neutrophils # Man Lymphocytes # (Manual) Monocytes # (Manual) 1.0 H POC ABG pH POC ABG pCO2 POC ABG pO2 VBG pH Sodium Potassium Chloride Carbon Dioxide BUN 23 H Creatinine 5.5 H Glucose 147 H POC Glucose 172 H Lactic Acid Calcium 7.9 L Phosphorus Magnesium Direct Bilirubin AST 152 H ALT 247 H C-Reactive Protein Total Protein Albumin 2.3 L Salicylates Acetaminophen 11/11/18 05:31 WBC RBC Hgb Hct MCV MCHC RDW Plt Count Lymph % (Auto) Lymph # Seg Neutrophils % Seg Neuts % (Manual) Lymphocytes % (Manual) Monocytes % (Manual) Nucleated RBC % Seg Neutrophils # Seg Neutrophils # Man Lymphocytes # (Manual) Monocytes # (Manual) POC ABG pH POC ABG pCO2 48.8 H POC ABG pO2 109 H VBG pH Sodium Potassium Chloride Carbon Dioxide BUN Creatinine Glucose POC Glucose Lactic Acid Calcium Phosphorus Magnesium Direct Bilirubin AST ALT C-Reactive Protein Total Protein Albumin Salicylates Acetaminophen
--- NOTE | 2018-11-11 13:25 | Progress Note ---
Assessment and Plan Acute hypoxemic respiratory failure, on mechanical ventilator support. Diabetic ketoacidosis. Severe metabolic acidosis. Severe sepsis with shock. Acute encephalopathy that appears to be toxic metabolic. End-stage renal disease, on dialysis. Hyperkalemia at presentation. Diabetes. Peripheral vascular disease. Anemia that is macrocytic. Elevated serum transaminases, likely representing shock liver. Mild hyponatremia, pseudohyponatremia actually. Lactic acidosis. (AMS is currently a rate limiting factor to safe extubation and he will likely need a tracheostomy) - EEG Impression noted re: [Anoxic brain injury with interval improvement of clinical status. I have reviewed the EEG which does not show any epileptiform activity or seizure activity. The background rhythm is a little slow other than that EEG is normal] - will follow clinically for a few more days before deciding on tracheostomy vs trial of extubation - continue Provigil - continue baclofen for myoclonic activity / hiccups - continue daily SAT's and SBT assessment in am as tolerated - prn sedation target for RASS 0 to -1 - wean off vasopressors for MAP > 65 mmHg (off now) - continue to wean supplemental oxygen to keep O2 sats > 90% - continue empiric AB's for now (de-escalate based on clinical and radiologic data) - continue bronchodilators with pulmonary hygiene per RT - Lung protective strategies - VAP bundle addressed - continue HD/UF as tolerated for toxin and volume clearance - neurology evaluation ongoing - Monitor renal indices closely - continue to avoid nephrotoxic agents, adjust all medications for CrCL - Strict intake and output monitoring - continue enteral nutrition as tolerated - continue accuchecks with glycemic control per SSI for target glucose of 140- 180 mg/dL - Maintenance of sleep -wake cycle - Mobility protocol for pressure ulcer prophylaxis - continue GI & VTE prophylaxis - Influenza and pneumonia vaccination per protocol ... care plan discussed at length with mother at bedside PROGNOSIS: GUARDED CONDITION: CRITICAL CODE STATUS: FULL CODE The high probability of a clinically significant, sudden or life-threatening deterioration of the [respiratory, neurology, renal] system(s) required my full and direct attention, intervention and personal management. The aggregate critical care time was [36] minutes without overlap. Time includes spent on; [x] Data Review and interpretation [x] Patient assessment and monitoring of vital signs [x] Documentation [x] Medication orders and management Subjective Date of service: 11/11/18 Principal diagnosis: Ac hypoxemic resp failure; DKA; Severe sepsis with shock; ESRD on dialysis Interval history: Patient is seen today for: Acute hypoxemic respiratory failure on MVS; DKA; Severe metabolic acidosis; Severe sepsis with shock; Acute encephalopathy that appears to be toxic metabolic; ESRD on dialysis; DM II; Peripheral vascular disease. Seen and examined at bedside; 24hour events reviewed; nursing and respiratory care staff consulted; no adverse overnight events reported to me; remains on MVS; AMS is persistent; mother visiting; no emesis or overt aspiration; no overt seizure activity Objective Vital Signs - 12hr 11/11/18 11/11/18 11/11/18 01:30 02:00 02:30 Temperature Pulse Rate 84 86 87 Pulse Rate [ From Monitor] Respiratory 20 20 20 Rate Blood Pressure 154/100 149/89 146/91 O2 Sat by Pulse 98 100 99 Oximetry 11/11/18 11/11/18 11/11/18 03:00 03:31 03:41 Temperature Pulse Rate 88 91 H Pulse Rate [ From Monitor] Respiratory 22 23 Rate Blood Pressure 145/91 O2 Sat by Pulse 99 98 100 Oximetry 11/11/18 11/11/18 11/11/18 04:00 04:31 04:48 Temperature 99.6 F Pulse Rate 88 100 H 123 H Pulse Rate [ From Monitor] Respiratory 26 H 20 Rate Blood Pressure 175/100 220/112 213/115 O2 Sat by Pulse 99 100 Oximetry 11/11/18 11/11/18 11/11/18 04:53 05:00 05:30 Temperature Pulse Rate 114 H 112 H 114 H Pulse Rate [ From Monitor] Respiratory 21 17 Rate Blood Pressure 162/88 140/80 147/75 O2 Sat by Pulse 100 98 97 Oximetry 11/11/18 11/11/18 11/11/18 06:00 06:30 07:00 Temperature Pulse Rate 109 H 106 H 110 H Pulse Rate [ From Monitor] Respiratory 20 20 24 Rate Blood Pressure 130/71 129/73 161/81 O2 Sat by Pulse 95 96 96 Oximetry 11/11/18 11/11/18 11/11/18 07:30 07:34 08:00 Temperature 100.1 F H Pulse Rate 110 H 105 H Pulse Rate [ 109 H From Monitor] Respiratory 28 H 28 H Rate Blood Pressure 164/92 164/92 O2 Sat by Pulse 98 99 Oximetry 11/11/18 11/11/18 11/11/18 08:01 08:29 08:30 Temperature Pulse Rate 111 H 108 H 110 H Pulse Rate [ From Monitor] Respiratory 28 H 27 H Rate Blood Pressure 113/66 113/56 113/56 O2 Sat by Pulse 98 98 96 Oximetry 11/11/18 11/11/18 11/11/18 09:00 09:30 10:00 Temperature Pulse Rate 120 H 110 H 106 H Pulse Rate [ From Monitor] Respiratory 27 H 20 20 Rate Blood Pressure 115/70 121/73 117/74 O2 Sat by Pulse 96 96 96 Oximetry 11/11/18 11/11/18 11/11/18 10:30 11:00 11:30 Temperature Pulse Rate 106 H 108 H 112 H Pulse Rate [ From Monitor] Respiratory 7 L 20 20 Rate Blood Pressure 114/78 126/75 136/85 O2 Sat by Pulse 98 97 96 Oximetry 11/11/18 11/11/18 11/11/18 12:00 12:09 12:30 Temperature 99.5 F Pulse Rate 108 H 112 H 109 H Pulse Rate [ 113 H From Monitor] Respiratory 19 13 14 Rate Blood Pressure 138/83 138/83 142/80 O2 Sat by Pulse 97 100 96 Oximetry 11/11/18 11/11/18 12:35 13:00 Temperature 99.8 F H Pulse Rate 110 H Pulse Rate [ From Monitor] Respiratory 25 H Rate Blood Pressure 147/82 O2 Sat by Pulse 97 Oximetry Constitutional: appears uncomfortable, other (middle aged AAM, normocephalic and atraumatic on MVS) Eyes: non-icteric ENT: oropharynx moist, other (ETT 25 cm FITO) Neck: supple, no lymphadenopathy, no JVD Effort: mildly labored Ascultation: Bilateral: clear, rhonchi Percussion: Bilateral: not dull Cardiovascular: regular rate and rhythm Gastrointestinal: normoactive bowel sounds, soft, non-tender, non-distended Integumentary: rash Extremities: no cyanosis, no edema, pulses normal, no ischemia or petechiae Neurologic: pupils equal and round (minimally reactive), unable to assess, other (intermittent myoclonic type jerks) Psychiatric: other (unable to assess re: AMS) CBC and BMP: 11/14/18 04:57 11/14/18 04:57 ABG, PT/INR, D-dimer: ABG POC ABG pH 7.418 (7.35-7.45) 11/11/18 05:31 POC ABG pCO2 48.8 (35-45) H 11/11/18 05:31 POC ABG pO2 109 (80-105) H 11/11/18 05:31 POC ABG HCO3 31.5 (22-26 mml/L) 11/11/18 05:31 POC ABG Total CO2 33 (23-27mmol/L) 11/11/18 05:31 POC ABG O2 Sat 98 11/11/18 05:31 Abnormal lab findings: Abnormal Labs 11/06/18 11/06/18 11/06/18 08:22 09:02 09:02 WBC 20.1 H RBC 3.40 L Hgb 10.5 L Hct MCV 119 H MCHC 26 L RDW 15.7 H Plt Count Lymph % (Auto) Lymph # Seg Neutrophils % 80.1 H Seg Neuts % (Manual) 76.0 H Lymphocytes % (Manual) 4.0 L Monocytes % (Manual) Nucleated RBC % 1.0 H Seg Neutrophils # 16.1 H Seg Neutrophils # Man 15.3 H Lymphocytes # (Manual) 0.8 L Monocytes # (Manual) POC ABG pH POC ABG pCO2 POC ABG pO2 VBG pH Sodium 129 L Potassium 7.7 H* Chloride 79.7 L Carbon Dioxide 4 L* BUN 93 H Creatinine 7.4 H Glucose 1469 H* POC Glucose > 500 H Lactic Acid Calcium Phosphorus Magnesium Direct Bilirubin AST 2679 H ALT 1175 H C-Reactive Protein Total Protein 6.1 L Albumin 2.9 L Salicylates Acetaminophen 11/06/18 11/06/18 11/06/18 09:02 09:02 09:02 WBC RBC Hgb Hct MCV MCHC RDW Plt Count Lymph % (Auto) Lymph # Seg Neutrophils % Seg Neuts % (Manual) Lymphocytes % (Manual) Monocytes % (Manual) Nucleated RBC % Seg Neutrophils # Seg Neutrophils # Man Lymphocytes # (Manual) Monocytes # (Manual) POC ABG pH POC ABG pCO2 POC ABG pO2 VBG pH Sodium Potassium Chloride Carbon Dioxide BUN Creatinine Glucose POC Glucose Lactic Acid 9.40 H* Calcium Phosphorus Magnesium Direct Bilirubin AST ALT C-Reactive Protein Total Protein Albumin Salicylates < 0.3 L Acetaminophen < 5.0 L 05/11/06/18 11/06/18 09:03 10:19 10:19 WBC RBC Hgb Hct MCV MCHC RDW Plt Count Lymph % (Auto) Lymph # Seg Neutrophils % Seg Neuts % (Manual) Lymphocytes % (Manual) Monocytes % (Manual) Nucleated RBC % Seg Neutrophils # Seg Neutrophils # Man Lymphocytes # (Manual) Monocytes # (Manual) POC ABG pH 6.841 L POC ABG pCO2 POC ABG pO2 VBG pH Sodium 131 L Potassium 8.9 H* Chloride 85.3 L Carbon Dioxide 6 L* BUN 90 H Creatinine 7.1 H Glucose 1353 H* POC Glucose Lactic Acid Calcium 7.8 L Phosphorus 14.50 H Magnesium 2.70 H Direct Bilirubin AST ALT C-Reactive Protein Total Protein Albumin Salicylates Acetaminophen 11/06/18 11/06/18 11/06/18 12:07 13:22 13:22 WBC RBC Hgb Hct MCV MCHC RDW Plt Count Lymph % (Auto) Lymph # Seg Neutrophils % Seg Neuts % (Manual) Lymphocytes % (Manual) Monocytes % (Manual) Nucleated RBC % Seg Neutrophils # Seg Neutrophils # Man Lymphocytes # (Manual) Monocytes # (Manual) POC ABG pH POC ABG pCO2 POC ABG pO2 VBG pH 6.982 L* Sodium 135 L Potassium 7.0 H* D Chloride 88.4 L Carbon Dioxide 5 L* BUN 89 H Creatinine 7.2 H Glucose 1326 H* POC Glucose Lactic Acid 8.50 H* Calcium Phosphorus Magnesium Direct Bilirubin AST ALT C-Reactive Protein Total Protein Albumin Salicylates Acetaminophen 11/06/18 11/06/18 11/06/18 14:15 14:15 15:21 WBC RBC Hgb Hct MCV MCHC RDW Plt Count Lymph % (Auto) Lymph # Seg Neutrophils % Seg Neuts % (Manual) Lymphocytes % (Manual) Monocytes % (Manual) Nucleated RBC % Seg Neutrophils # Seg Neutrophils # Man Lymphocytes # (Manual) Monocytes # (Manual) POC ABG pH POC ABG pCO2 POC ABG pO2 VBG pH Sodium Potassium 6.6 H* 6.0 H Chloride 95.3 L 93.3 L Carbon Dioxide 4 L* 6 L* BUN 83 H 91 H Creatinine 6.9 H 7.3 H Glucose 1205 H* 1174 H* POC Glucose Lactic Acid Calcium 8.2 L Phosphorus 13.00 H Magnesium 2.60 H Direct Bilirubin AST ALT C-Reactive Protein Total Protein Albumin Salicylates Acetaminophen 11/06/18 11/06/18 11/06/18 15:21 16:14 16:33 WBC RBC Hgb Hct MCV MCHC RDW Plt Count Lymph % (Auto) Lymph # Seg Neutrophils % Seg Neuts % (Manual) Lymphocytes % (Manual) Monocytes % (Manual) Nucleated RBC % Seg Neutrophils # Seg Neutrophils # Man Lymphocytes # (Manual) Monocytes # (Manual) POC ABG pH 7.004 L POC ABG pCO2 33.0 L POC ABG pO2 178 H VBG pH Sodium Potassium Chloride Carbon Dioxide BUN Creatinine Glucose POC Glucose > 500 H Lactic Acid 7.60 H* Calcium Phosphorus Magnesium Direct Bilirubin AST ALT C-Reactive Protein Total Protein Albumin Salicylates Acetaminophen 11/06/18 11/06/18 11/06/18 17:34 19:30 19:30 WBC RBC Hgb Hct MCV MCHC RDW Plt Count Lymph % (Auto) Lymph # Seg Neutrophils % Seg Neuts % (Manual) Lymphocytes % (Manual) Monocytes % (Manual) Nucleated RBC % Seg Neutrophils # Seg Neutrophils # Man Lymphocytes # (Manual) Monocytes # (Manual) POC ABG pH POC ABG pCO2 POC ABG pO2 VBG pH Sodium Potassium 5.5 H Chloride 97.4 L 97.7 L Carbon Dioxide 10 L 11 L BUN 88 H 87 H Creatinine 7.5 H 7.6 H Glucose 1054 H* 954 H* POC Glucose Lactic Acid Calcium 7.7 L 7.4 L Phosphorus Magnesium Direct Bilirubin AST ALT C-Reactive Protein 1.90 H Total Protein Albumin Salicylates Acetaminophen 11/06/18 11/06/18 11/06/18 20:31 20:40 20:40 WBC RBC Hgb Hct MCV MCHC RDW Plt Count Lymph % (Auto) Lymph # Seg Neutrophils % Seg Neuts % (Manual) Lymphocytes % (Manual) Monocytes % (Manual) Nucleated RBC % Seg Neutrophils # Seg Neutrophils # Man Lymphocytes # (Manual) Monocytes # (Manual) POC ABG pH 7.245 L POC ABG pCO2 POC ABG pO2 132 H VBG pH Sodium Potassium Chloride Carbon Dioxide BUN Creatinine Glucose 907 H* POC Glucose Lactic Acid 4.40 H* Calcium Phosphorus Magnesium Direct Bilirubin AST ALT C-Reactive Protein Total Protein Albumin Salicylates Acetaminophen 11/06/18 11/06/18 11/06/18 22:05 22:40 23:35 WBC RBC Hgb Hct MCV MCHC RDW Plt Count Lymph % (Auto) Lymph # Seg Neutrophils % Seg Neuts % (Manual) Lymphocytes % (Manual) Monocytes % (Manual) Nucleated RBC % Seg Neutrophils # Seg Neutrophils # Man Lymphocytes # (Manual) Monocytes # (Manual) POC ABG pH POC ABG pCO2 POC ABG pO2 VBG pH Sodium Potassium Chloride Carbon Dioxide 13 L BUN 86 H Creatinine 7.8 H Glucose 822 H* 726 H* POC Glucose Lactic Acid 3.40 H* Calcium 7.5 L Phosphorus Magnesium Direct Bilirubin AST ALT C-Reactive Protein Total Protein Albumin Salicylates Acetaminophen 11/07/18 11/07/18 11/07/18 01:25 01:26 03:15 WBC RBC Hgb Hct MCV MCHC RDW Plt Count Lymph % (Auto) Lymph # Seg Neutrophils % Seg Neuts % (Manual) Lymphocytes % (Manual) Monocytes % (Manual) Nucleated RBC % Seg Neutrophils # Seg Neutrophils # Man Lymphocytes # (Manual) Monocytes # (Manual) POC ABG pH POC ABG pCO2 POC ABG pO2 VBG pH Sodium Potassium Chloride Carbon Dioxide BUN Creatinine Glucose 602 H* POC Glucose > 500 H > 500 H Lactic Acid Calcium Phosphorus Magnesium Direct Bilirubin AST ALT C-Reactive Protein Total Protein Albumin Salicylates Acetaminophen 11/07/18 11/07/18 11/07/18 03:20 04:32 04:47 WBC RBC Hgb Hct MCV MCHC RDW Plt Count Lymph % (Auto) Lymph # Seg Neutrophils % Seg Neuts % (Manual) Lymphocytes % (Manual) Monocytes % (Manual) Nucleated RBC % Seg Neutrophils # Seg Neutrophils # Man Lymphocytes # (Manual) Monocytes # (Manual) POC ABG pH POC ABG pCO2 30.3 L POC ABG pO2 153 H VBG pH Sodium 149 H Potassium Chloride Carbon Dioxide 16 L BUN 86 H Creatinine 8.3 H Glucose 499.2 H POC Glucose 360 H Lactic Acid Calcium 7.6 L Phosphorus Magnesium Direct Bilirubin AST ALT C-Reactive Protein Total Protein Albumin Salicylates Acetaminophen 11/07/18 11/07/18 11/07/18 05:26 06:35 06:36 WBC RBC Hgb Hct MCV MCHC RDW Plt Count Lymph % (Auto) Lymph # Seg Neutrophils % Seg Neuts % (Manual) Lymphocytes % (Manual) Monocytes % (Manual) Nucleated RBC % Seg Neutrophils # Seg Neutrophils # Man Lymphocytes # (Manual) Monocytes # (Manual) POC ABG pH POC ABG pCO2 POC ABG pO2 VBG pH Sodium 153 H Potassium 3.2 L Chloride 109.7 H Carbon Dioxide BUN 84 H Creatinine 8.6 H Glucose 249 H POC Glucose 341 H 274 H Lactic Acid Calcium 7.6 L Phosphorus Magnesium Direct Bilirubin AST ALT C-Reactive Protein Total Protein Albumin Salicylates Acetaminophen 11/07/18 11/07/18 11/07/18 07:33 09:00 09:52 WBC RBC Hgb Hct MCV MCHC RDW Plt Count Lymph % (Auto) Lymph # Seg Neutrophils % Seg Neuts % (Manual) Lymphocytes % (Manual) Monocytes % (Manual) Nucleated RBC % Seg Neutrophils # Seg Neutrophils # Man Lymphocytes # (Manual) Monocytes # (Manual) POC ABG pH POC ABG pCO2 POC ABG pO2 VBG pH Sodium Potassium Chloride Carbon Dioxide BUN Creatinine Glucose POC Glucose 243 H 182 H 227 H Lactic Acid Calcium Phosphorus Magnesium Direct Bilirubin AST ALT C-Reactive Protein Total Protein Albumin Salicylates Acetaminophen 11/07/18 11/07/18 11/07/18 10:50 10:50 10:50 WBC 11.3 H RBC 2.85 L Hgb 8.7 L Hct 25.3 L D MCV MCHC RDW Plt Count Lymph % (Auto) 9.7 L Lymph # 1.1 L Seg Neutrophils % 83.3 H Seg Neuts % (Manual) Lymphocytes % (Manual) Monocytes % (Manual) Nucleated RBC % Seg Neutrophils # 9.4 H Seg Neutrophils # Man Lymphocytes # (Manual) Monocytes # (Manual) POC ABG pH POC ABG pCO2 POC ABG pO2 VBG pH Sodium 154 H Potassium 3.2 L Chloride 110.2 H Carbon Dioxide BUN 82 H Creatinine 8.3 H Glucose 186 H POC Glucose 200 H Lactic Acid Calcium 7.3 L Phosphorus Magnesium Direct Bilirubin AST ALT C-Reactive Protein Total Protein Albumin Salicylates Acetaminophen 11/07/18 11/07/18 11/07/18 12:00 12:05 13:13 WBC RBC Hgb Hct MCV MCHC RDW Plt Count Lymph % (Auto) Lymph # Seg Neutrophils % Seg Neuts % (Manual) Lymphocytes % (Manual) Monocytes % (Manual) Nucleated RBC % Seg Neutrophils # Seg Neutrophils # Man Lymphocytes # (Manual) Monocytes # (Manual) POC ABG pH POC ABG pCO2 POC ABG pO2 VBG pH Sodium Potassium Chloride Carbon Dioxide BUN Creatinine Glucose POC Glucose 179 H 190 H Lactic Acid 2.50 H* Calcium Phosphorus Magnesium Direct Bilirubin AST ALT C-Reactive Protein Total Protein Albumin Salicylates Acetaminophen 11/07/18 11/07/18 11/07/18 13:20 14:05 15:18 WBC RBC Hgb Hct MCV MCHC RDW Plt Count Lymph % (Auto) Lymph # Seg Neutrophils % Seg Neuts % (Manual) Lymphocytes % (Manual) Monocytes % (Manual) Nucleated RBC % Seg Neutrophils # Seg Neutrophils # Man Lymphocytes # (Manual) Monocytes # (Manual) POC ABG pH POC ABG pCO2 POC ABG pO2 VBG pH Sodium Potassium 3.1 L Chloride Carbon Dioxide BUN 50 H Creatinine 5.0 H Glucose 176 H POC Glucose 189 H 215 H Lactic Acid Calcium 7.4 L Phosphorus Magnesium Direct Bilirubin AST ALT C-Reactive Protein Total Protein Albumin Salicylates Acetaminophen 11/07/18 11/07/18 11/07/18 16:25 17:37 23:23 WBC RBC Hgb Hct MCV MCHC RDW Plt Count Lymph % (Auto) Lymph # Seg Neutrophils % Seg Neuts % (Manual) Lymphocytes % (Manual) Monocytes % (Manual) Nucleated RBC % Seg Neutrophils # Seg Neutrophils # Man Lymphocytes # (Manual) Monocytes # (Manual) POC ABG pH POC ABG pCO2 POC ABG pO2 VBG pH Sodium Potassium Chloride Carbon Dioxide BUN Creatinine Glucose POC Glucose 180 H 215 H 234 H Lactic Acid Calcium Phosphorus Magnesium Direct Bilirubin AST ALT C-Reactive Protein Total Protein Albumin Salicylates Acetaminophen 11/08/18 11/08/18 11/08/18 04:17 04:23 04:23 WBC RBC 2.98 L Hgb 9.3 L Hct 26.7 L MCV MCHC 35 H RDW Plt Count 130 L Lymph % (Auto) Lymph # Seg Neutrophils % 80.3 H Seg Neuts % (Manual) Lymphocytes % (Manual) Monocytes % (Manual) Nucleated RBC % Seg Neutrophils # 7.8 H Seg Neutrophils # Man Lymphocytes # (Manual) Monocytes # (Manual) POC ABG pH 7.520 H POC ABG pCO2 POC ABG pO2 111 H VBG pH Sodium Potassium 3.0 L Chloride Carbon Dioxide BUN 44 H Creatinine 6.3 H Glucose 245 H POC Glucose Lactic Acid Calcium 7.3 L Phosphorus Magnesium Direct Bilirubin AST ALT C-Reactive Protein Total Protein Albumin Salicylates Acetaminophen 11/08/18 11/08/18 11/08/18 05:19 08:00 08:00 WBC RBC Hgb Hct MCV MCHC RDW Plt Count Lymph % (Auto) Lymph # Seg Neutrophils % Seg Neuts % (Manual) Lymphocytes % (Manual) Monocytes % (Manual) Nucleated RBC % Seg Neutrophils # Seg Neutrophils # Man Lymphocytes # (Manual) Monocytes # (Manual) POC ABG pH POC ABG pCO2 POC ABG pO2 VBG pH Sodium Potassium Chloride Carbon Dioxide BUN Creatinine Glucose POC Glucose 253 H Lactic Acid 2.70 H* Calcium Phosphorus Magnesium Direct Bilirubin 0.3 H AST 932 H ALT 582 H C-Reactive Protein Total Protein 5.4 L Albumin 2.6 L Salicylates Acetaminophen 11/08/18 11/08/18 11/08/18 11:36 17:51 23:28 WBC RBC Hgb Hct MCV MCHC RDW Plt Count Lymph % (Auto) Lymph # Seg Neutrophils % Seg Neuts % (Manual) Lymphocytes % (Manual) Monocytes % (Manual) Nucleated RBC % Seg Neutrophils # Seg Neutrophils # Man Lymphocytes # (Manual) Monocytes # (Manual) POC ABG pH 7.459 H POC ABG pCO2 POC ABG pO2 108 H VBG pH Sodium Potassium Chloride Carbon Dioxide BUN Creatinine Glucose POC Glucose 197 H 418 H Lactic Acid Calcium Phosphorus Magnesium Direct Bilirubin AST ALT C-Reactive Protein Total Protein Albumin Salicylates Acetaminophen 11/09/18 11/09/18 11/09/18 00:39 02:20 03:48 WBC RBC Hgb Hct MCV MCHC RDW Plt Count Lymph % (Auto) Lymph # Seg Neutrophils % Seg Neuts % (Manual) Lymphocytes % (Manual) Monocytes % (Manual) Nucleated RBC % Seg Neutrophils # Seg Neutrophils # Man Lymphocytes # (Manual) Monocytes # (Manual) POC ABG pH POC ABG pCO2 POC ABG pO2 108 H VBG pH Sodium Potassium Chloride Carbon Dioxide BUN Creatinine Glucose POC Glucose 471 H 254 H Lactic Acid Calcium Phosphorus Magnesium Direct Bilirubin AST ALT C-Reactive Protein Total Protein Albumin Salicylates Acetaminophen 11/09/18 11/09/18 11/09/18 06:02 06:02 17:49 WBC RBC 2.95 L Hgb 9.2 L Hct 26.7 L MCV MCHC RDW Plt Count 101 L Lymph % (Auto) Lymph # Seg Neutrophils % Seg Neuts % (Manual) Lymphocytes % (Manual) Monocytes % (Manual) Nucleated RBC % Seg Neutrophils # Seg Neutrophils # Man Lymphocytes # (Manual) Monocytes # (Manual) POC ABG pH POC ABG pCO2 POC ABG pO2 VBG pH Sodium 150 H Potassium Chloride 108.3 H Carbon Dioxide BUN 44 H Creatinine 7.7 H Glucose 102 H POC Glucose 184 H Lactic Acid Calcium 7.2 L Phosphorus Magnesium Direct Bilirubin AST 554 H ALT 461 H C-Reactive Protein Total Protein 5.1 L Albumin 2.6 L Salicylates Acetaminophen 11/09/18 11/09/18 11/10/18 18:49 23:32 05:00 WBC RBC Hgb Hct MCV MCHC RDW Plt Count Lymph % (Auto) Lymph # Seg Neutrophils % Seg Neuts % (Manual) Lymphocytes % (Manual) Monocytes % (Manual) Nucleated RBC % Seg Neutrophils # Seg Neutrophils # Man Lymphocytes # (Manual) Monocytes # (Manual) POC ABG pH POC ABG pCO2 46.2 H POC ABG pO2 VBG pH Sodium Potassium Chloride Carbon Dioxide BUN 33 H Creatinine 6.8 H Glucose 251 H POC Glucose 150 H Lactic Acid Calcium 7.3 L Phosphorus Magnesium Direct Bilirubin AST ALT C-Reactive Protein Total Protein Albumin Salicylates Acetaminophen 11/10/18 11/10/18 11/10/18 05:00 05:16 11:47 WBC RBC 2.95 L Hgb 8.9 L Hct 26.6 L MCV MCHC RDW Plt Count 100 L Lymph % (Auto) Lymph # Seg Neutrophils % Seg Neuts % (Manual) Lymphocytes % (Manual) Monocytes % (Manual) 8.0 H Nucleated RBC % Seg Neutrophils # Seg Neutrophils # Man Lymphocytes # (Manual) Monocytes # (Manual) POC ABG pH POC ABG pCO2 POC ABG pO2 VBG pH Sodium Potassium Chloride Carbon Dioxide BUN Creatinine Glucose POC Glucose 242 H 261 H Lactic Acid Calcium Phosphorus Magnesium Direct Bilirubin AST ALT C-Reactive Protein Total Protein Albumin Salicylates Acetaminophen 11/10/18 11/10/18 11/11/18 17:32 23:39 00:26 WBC RBC Hgb Hct MCV MCHC RDW Plt Count Lymph % (Auto) Lymph # Seg Neutrophils % Seg Neuts % (Manual) Lymphocytes % (Manual) Monocytes % (Manual) Nucleated RBC % Seg Neutrophils # Seg Neutrophils # Man Lymphocytes # (Manual) Monocytes # (Manual) POC ABG pH POC ABG pCO2 POC ABG pO2 VBG pH Sodium Potassium Chloride Carbon Dioxide BUN Creatinine Glucose POC Glucose 194 H 60 L 124 H Lactic Acid Calcium Phosphorus Magnesium Direct Bilirubin AST ALT C-Reactive Protein Total Protein Albumin Salicylates Acetaminophen 11/11/18 11/11/18 11/11/18 04:24 04:24 05:27 WBC RBC 2.98 L Hgb 9.1 L Hct 27.4 L MCV MCHC RDW Plt Count 114 L Lymph % (Auto) Lymph # Seg Neutrophils % Seg Neuts % (Manual) Lymphocytes % (Manual) Monocytes % (Manual) 10.0 H Nucleated RBC % Seg Neutrophils # Seg Neutrophils # Man Lymphocytes # (Manual) Monocytes # (Manual) 1.0 H POC ABG pH POC ABG pCO2 POC ABG pO2 VBG pH Sodium Potassium Chloride Carbon Dioxide BUN 23 H Creatinine 5.5 H Glucose 147 H POC Glucose 172 H Lactic Acid Calcium 7.9 L Phosphorus Magnesium Direct Bilirubin AST 152 H ALT 247 H C-Reactive Protein Total Protein Albumin 2.3 L Salicylates Acetaminophen 11/11/18 11/11/18 05:31 12:11 WBC RBC Hgb Hct MCV MCHC RDW Plt Count Lymph % (Auto) Lymph # Seg Neutrophils % Seg Neuts % (Manual) Lymphocytes % (Manual) Monocytes % (Manual) Nucleated RBC % Seg Neutrophils # Seg Neutrophils # Man Lymphocytes # (Manual) Monocytes # (Manual) POC ABG pH POC ABG pCO2 48.8 H POC ABG pO2 109 H VBG pH Sodium Potassium Chloride Carbon Dioxide BUN Creatinine Glucose POC Glucose 343 H Lactic Acid Calcium Phosphorus Magnesium Direct Bilirubin AST ALT C-Reactive Protein Total Protein Albumin Salicylates Acetaminophen Chest x-ray: image reviewed Allied health notes reviewed: nursing
[2018-11-11] MEDS ORDERED: SIMPLE SYRUP FEEDTUBE PRN ×2 (14:53)
[2018-11-11] MEDS ORDERED: PANCREAZE DR 10,500 UNIT FEEDTUBE PRN (14:53)
[2018-11-11] MEDS ORDERED: SODIUM BICARBONATE FEEDTUBE PRN (14:53)
[2018-11-12] MEDS: APRESOLINE IV PRN ×3 (01:38→11:38)
[2018-11-12 05:31] LABS: Basophils % (Auto) 0.3 % (0.0-1.8); Eosinophils # (Auto) 0.1 K/mm3 (0.0-0.4); Eosinophils % (Auto) 0.9 % (0.0-4.3); Hematocrit 26.9 % (35.5-45.6); Lymphocytes # (Auto) 0.8 K/mm3 (1.2-5.4); Lymphocytes % (Auto) 12.7 % (13.4-35.0); Mean Corpuscular HGB Conc 33 % (32-34); Mean Corpuscular Volume 92 fl (84-94); Monocytes % (Auto) 14.9 % (0.0-7.3); Platelet Count 176 K/mm3 (140-440); Red Blood Count 2.91 M/mm3 (3.65-5.03); Red Cell Distribution Width 14.6 % (13.2-15.2)
[2018-11-12 05:55] LABS: Albumin 2.9 g/dL (3.9-5); Calcium 9.3 mg/dL (8.4-10.2)
[2018-11-12] MEDS: HumuLIN R SUB-Q SCH ×4 (06:33→17:29)
--- NOTE | 2018-11-12 07:25 | Progress Note ---
History Interval history: Patient seen and examined records reviewed The patient remains intubated on ventilatory support Mild agitation. Uncontrolled blood pressures Vital Signs reviewed Hospitalist Physical - Constitutional Vitals: Temp Pulse Resp BP Pulse Ox 99.8 F H 99 H 20 133/73 95 11/12/18 04:00 11/12/18 06:30 11/12/18 06:30 11/12/18 06:30 11/12/18 06:30 General appearance: Present: no acute distress, well-nourished, other (intubated on vent) - EENT Eyes: Present: PERRL, EOM intact - Neck Neck: Present: supple, normal ROM - Respiratory Respiratory effort: normal Respiratory: bilateral: diminished, negative: rales, rhonchi, wheezing - Cardiovascular Rhythm: regular Heart Sounds: Present: S1 & S2 - Extremities Extremities: no ischemia, No edema - Abdominal General gastrointestinal: soft, non-tender, non-distended, normal bowel sounds - Integumentary Integumentary: Present: clear, warm - Psychiatric Psychiatric: other (unresponsive on vent) - Neurologic Neurologic: other (noncommunicative on vent) Results - Labs CBC & Chem 7: 11/12/18 04:44 11/12/18 04:44 Labs: Laboratory Last Values WBC 6.6 K/mm3 (4.5-11.0) 11/12/18 04:44 RBC 2.91 M/mm3 (3.65-5.03) L 11/12/18 04:44 Hgb 9.0 gm/dl (11.8-15.2) L 11/12/18 04:44 Hct 26.9 % (35.5-45.6) L 11/12/18 04:44 MCV 92 fl (84-94) 11/12/18 04:44 MCH 31 pg (28-32) 11/12/18 04:44 MCHC 33 % (32-34) 11/12/18 04:44 RDW 14.6 % (13.2-15.2) 11/12/18 04:44 Plt Count 176 K/mm3 (140-440) 11/12/18 04:44 Lymph % (Auto) 12.7 % (13.4-35.0) L 11/12/18 04:44 [place] % (Auto) 14.9 % (0.0-7.3) H 11/12/18 04:44 Eos % (Auto) 0.9 % (0.0-4.3) 11/12/18 04:44 Baso % (Auto) 0.3 % (0.0-1.8) 11/12/18 04:44 Lymph # 0.8 K/mm3 (1.2-5.4) L 11/12/18 04:44 Potter # 1.0 K/mm3 (0.0-0.8) H 11/12/18 04:44 Eos # 0.1 K/mm3 (0.0-0.4) 11/12/18 04:44 Baso # 0.0 K/mm3 (0.0-0.1) 11/12/18 04:44 Add Manual Diff Complete 11/11/18 04:24 Total Counted 100 11/11/18 04:24 Seg Neutrophils % 71.2 % (40.0-70.0) H 11/12/18 04:44 Seg Neuts % (Manual) 66.0 % (40.0-70.0) 11/11/18 04:24 0 % 11/11/18 04:24 22.0 % (13.4-35.0) 11/11/18 04:24 Reactive Lymphs % (Man) 0 % 11/11/18 04:24 10.0 % (0.0-7.3) H 11/11/18 04:24 2.0 % (0.0-4.3) 11/11/18 04:24 0 % (0.0-1.8) 11/11/18 04:24 0 % 11/11/18 04:24 0 % 11/11/18 04:24 0 % 11/11/18 04:24 0 % 11/11/18 04:24 Nucleated RBC % Not Reportable 11/11/18 04:24 Seg Neutrophils # 4.7 K/mm3 (1.8-7.7) 11/12/18 04:44 Seg Neutrophils # Man 6.9 K/mm3 (1.8-7.7) 11/11/18 04:24 Band Neutrophils # 0.0 K/mm3 11/11/18 04:24 2.3 K/mm3 (1.2-5.4) 11/11/18 04:24 Abs React Lymphs (Man) 0.0 K/mm3 11/11/18 04:24 1.0 K/mm3 (0.0-0.8) H 11/11/18 04:24 0.2 K/mm3 (0.0-0.4) 11/11/18 04:24 0.0 K/mm3 (0.0-0.1) 11/11/18 04:24 0.0 K/mm3 11/11/18 04:24 0.0 K/mm3 11/11/18 04:24 0.0 K/mm3 11/11/18 04:24 Blast Cells # 0.0 K/mm3 11/11/18 04:24 WBC Morphology Not Reportable 11/11/18 04:24 Hypersegmented Neuts Not Reportable 11/11/18 04:24 Hyposegmented Neuts Not Reportable 11/11/18 04:24 Hypogranular Neuts Not Reportable 11/11/18 04:24 Not Reportable 11/11/18 04:24 Not Reportable 11/11/18 04:24 Not Reportable 11/11/18 04:24 Not Reportable 11/11/18 04:24 Not Reportable 11/11/18 04:24 Not Reportable 11/11/18 04:24 Consistent w auto 11/11/18 04:24 Not Reportable 11/11/18 04:24 Plt Clumps, EDTA Not Reportable 11/11/18 04:24 Not Reportable 11/11/18 04:24 Not Reportable 11/11/18 04:24 Not Reportable 11/11/18 04:24 Plt Morphology Comment Not Reportable 11/11/18 04:24 RBC Morphology Not Reportable 11/11/18 04:24 Dimorphic RBCs Not Reportable 11/11/18 04:24 Not Reportable 11/11/18 04:24 Not Reportable 11/11/18 04:24 Not Reportable 11/11/18 04:24 1+ 11/11/18 04:24 Not Reportable 11/11/18 04:24 Not Reportable 11/11/18 04:24 Not Reportable 11/11/18 04:24 Not Reportable 11/11/18 04:24 Not Reportable 11/11/18 04:24 Not Reportable 11/11/18 04:24 Not Reportable 11/11/18 04:24 Not Reportable 11/11/18 04:24 Not Reportable 11/11/18 04:24 Not Reportable 11/11/18 04:24 Not Reportable 11/11/18 04:24 Not Reportable 11/11/18 04:24 Not Reportable 11/11/18 04:24 Not Reportable 11/11/18 04:24 Not Reportable 11/11/18 04:24 Acanthocytes (Spur) Not Reportable 11/11/18 04:24 Rouleaux Not Reportable 11/11/18 04:24 Not Reportable 11/11/18 04:24 Not Reportable 11/11/18 04:24 Not Reportable 11/11/18 04:24 Not Reportable 11/11/18 04:24 Hem Pathologist Commnt No 11/11/18 04:24 POC ABG pH 7.418 (7.35-7.45) 11/11/18 05:31 POC ABG pCO2 48.8 (35-45) H 11/11/18 05:31 POC ABG pO2 109 (80-105) H 11/11/18 05:31 POC ABG HCO3 31.5 (22-26 mml/L) 11/11/18 05:31 POC ABG Total CO2 33 (23-27mmol/L) 11/11/18 05:31 POC ABG O2 Sat 98 11/11/18 05:31 POC ABG Base Excess 7 ((-2) - (+3)mmol/L) 11/11/18 05:31 VBG pH 6.982 (7.320-7.420) L* 11/06/18 13:22 25 % 11/11/18 05:31 Sodium 142 mmol/L (137-145) 11/12/18 04:44 Potassium 4.3 mmol/L (3.6-5.0) 11/12/18 04:44 Chloride 100.0 mmol/L (98-107) 11/12/18 04:44 Carbon Dioxide 27 mmol/L (22-30) 11/12/18 04:44 19 mmol/L 11/12/18 04:44 BUN 22 mg/dL (9-20) H 11/12/18 04:44 5.0 mg/dL (0.8-1.5) H 11/12/18 04:44 Estimated GFR 16 ml/min 11/12/18 04:44 4 % 11/12/18 04:44 Glucose 288 mg/dL (75-100) H 11/12/18 04:44 POC Glucose 151 (70-105) H 11/12/18 00:11 Lactic Acid 2.70 mmol/L (0.7-2.0) H* 11/08/18 08:00 Calcium 9.3 mg/dL (8.4-10.2) D 11/12/18 04:44 Phosphorus 3.50 mg/dL (2.5-4.5) 11/12/18 04:44 Magnesium 2.00 mg/dL (1.7-2.3) 11/12/18 04:44 0.20 mg/dL (0.1-1.2) 11/12/18 04:44 0.3 mg/dL (0-0.2) H 11/08/18 08:00 0.3 mg/dL 11/08/18 08:00 AST 88 units/L (5-40) H 11/12/18 04:44 ALT 187 units/L (7-56) H 11/12/18 04:44 124 units/L (35-129) 11/12/18 04:44 58 units/L (55-170) 11/06/18 09:02 0.027 ng/mL (0.00-0.029) 11/06/18 09:02 1.90 mg/dL (0.00-1.30) H 11/06/18 19:30 6.5 g/dL (6.3-8.2) 11/12/18 04:44 2.9 g/dL (3.9-5) L 11/12/18 04:44 0.8 % 11/12/18 04:44 Straw (Yellow) 11/06/18 10:38 Clear (Clear) 11/06/18 10:38 5.0 (5.0-7.0) 11/06/18 10:38 Ur Specific [place] 1.014 (1.003-1.030) 11/06/18 10:38 100 mg/dl mg/dL (Negative) 11/06/18 10:38 >=500 mg/dL (Negative) 11/06/18 10:38 20 mg/dL (Negative) 11/06/18 10:38 Sm (Negative) 11/06/18 10:38 Neg (Negative) 11/06/18 10:38 Neg (Negative) 11/06/18 10:38 < 2.0 mg/dL (<2.0) 11/06/18 10:38 Ur Leukocyte Esterase Neg (Negative) 11/06/18 10:38 < 1.0 /HPF (0.0-6.0) 11/06/18 10:38 2.0 /HPF (0.0-6.0) 11/06/18 10:38 U Epithel Cells (Auto) < 1.0 /HPF (0-13.0) 11/06/18 10:38 Random Vancomycin 13.2 ug/mL (0-40.0) 11/08/18 04:23 Salicylates < 0.3 mg/dL (2.8-20.0) L 11/06/18 09:02 Presumptive negative 11/06/18 10:38 Presumptive negative 11/06/18 10:38 Acetaminophen < 5.0 ug/mL (10.0-30.0) L 11/06/18 09:02 Ur Barbiturates Screen Presumptive negative 11/06/18 10:38 Ur Phencyclidine Scrn Presumptive negative 11/06/18 10:38 Ur Amphetamines Screen Presumptive negative 11/06/18 10:38 U Benzodiazepines Scrn Presumptive negative 11/06/18 10:38 Presumptive negative 11/06/18 10:38 U Marijuana (THC) Screen Presumptive positive 11/06/18 10:38 Disclamer 11/06/18 10:38 Plasma/Serum Alcohol < 0.01 % (0-0.07) 11/06/18 09:02 Hepatitis A IgM Ab Non-reactive (NonReactive) 11/07/18 13:20 Hep Bs Antigen Non-reactive (Negative) 11/07/18 13:20 Hep B Core IgM Ab Non-reactive (NonReactive) 11/07/18 13:20 Non-reactive (NonReactive) 11/07/18 13:20 Blood Type A POSITIVE 11/06/18 14:15 Antibody Screen Not Reportable 11/06/18 14:15 JANIS Antibody Screen Negative 11/06/18 14:15 Active Medications - Current Medications Current Medications: Generic Name Dose Route Start Last Admin Trade Name Freq PRN Reason Stop Dose Admin Acetaminophen 650 mg 11/06/18 22:22 11/11/18 07:33 Tylenol FEEDTUBE 650 mg Q6H PRN Administration Fever >101 Lipase/Protease/Amylase 1 each 11/08/18 18:38 Pancreazraji [place] 10,500 Unit FEEDTUBE PRN PRN For Clogged Feeding Tube Baclofen 5 mg 11/10/18 14:00 11/11/18 21:44 Lioresal PO 5 mg TID MARIAJOSE Administration Chlorpromazine HCl 10 mg 11/07/18 08:07 11/10/18 05:36 Thorazine PO 10 mg Q6H PRN Administration Hiccups Dextrose 50 ml 11/07/18 16:46 11/10/18 23:43 D50w (25gm) Syringe IV 50 ml PRN PRN Administration Hypoglycemia Fentanyl 50 mcg 11/06/18 08:37 Sublimaze IV Q10MIN PRN ANALGESIA Hydralazine HCl 10 mg 11/08/18 00:56 11/12/18 01:38 Apresoline IV 10 mg Q4H PRN Administration Hypertension Hydrophilic Ointment 1 applic 11/06/18 08:26 11/10/18 19:52 Vaseline Lip Therapy TP 1 applic Q2HR PRN Administration Dry Lips Fentanyl Citrate 2,000 mcg in 100 mls @ 4.309 mls/hr 11/06/18 10:00 11/11/18 11:59 Fentanyl Drip Premix IV 1 mcg/kg/hr TITR MARIAJOSE 4.309 mls/hr Administration Protocol 1 MCG/KG/HR Sodium Chloride 100 mls @ 999 mls/hr 11/10/18 11:26 Nacl 0.9% IV MARY PRN Hypotension Insulin Human Isoph/Insulin Regular 22 unit 11/10/18 17:00 11/11/18 16:10 Humulin 70/30 SUB-Q 22 unit BIDDIAB MARIAJOSE Administration Insulin Human Regular 0 units 11/07/18 18:00 11/12/18 06:33 Humulin R SUB-Q 6 units Q6HR MARIAJOSE Administration Protocol Lansoprazole 30 mg 11/09/18 10:00 11/11/18 21:44 Prevacid Solutab FEEDTUBE 30 mg BID MARIAJOSE Administration Levetiracetam 1,000 mg 11/10/18 10:00 11/11/18 21:44 Keppra PO 1,000 mg BID MARIAJOSE Administration Modafinil 100 mg 11/11/18 10:00 11/11/18 11:05 Provigil PO 100 mg QAM MARIAJOSE Administration Multi-Ingred Cream/Lotion/Oil/Oint 1 applic 11/06/18 08:26 Artificial Tears Ophth Oint OU Q4HR PRN Dry Eye(s) Simple Syrup 15 ml 11/08/18 18:38 Simple Syrup FEEDTUBE PRN PRN Hypoglycemia Simple Syrup 30 ml 11/08/18 18:38 Simple Syrup FEEDTUBE PRN PRN Hypoglycemia Sodium Bicarbonate 325 mg 11/08/18 18:38 Sodium Bicarbonate FEEDTUBE PRN PRN For Clogged Feeding Tube Sodium Chloride 10 ml 11/06/18 22:00 11/11/18 21:45 Sodium Chloride Flush Syringe 10 Ml IV 10 ml BID MARIAJOSE Administration Sodium Chloride 10 ml 11/06/18 12:42 Sodium Chloride Flush Syringe 10 Ml IV PRN PRN LINE FLUSH Tamsulosin HCl 0.4 mg 11/10/18 13:00 11/11/18 11:05 Flomax PO 0.4 mg QDAY MARIAJOSE Administration Nutrition/Malnutrition Assess - Dietary Evaluation Nutrition/Malnutrition Findings: Nutrition Notes Start: 11/07/18 14:4 0 Freq: Status: Active Protocol: Document 11/11/18 14:40 RM (Rec: 11/11/18 14:53 RM [id number]) Nutrition Notes Initial or Follow up Reassessment Current Diagnosis CKD (stage V CKD),Diabetes Other Pertinent Diagnosis on HD, PAD, Anoxic brain injury, Cardiopulmonary arrest , AMS Current Diet Glucerna 1.2 at 75 ml/hr Labs/Tests Na 142 Pertinent Medications Reviewed Height 6 ft 2 in Weight 108.8 kg [place] Body Weight (kg) 86.36 BMI 30.8 Subjective/Other Information Observed Gucerna 1.2 infusing at goal rate. Percent of energy/protein needs met: 99%/100% Burn Absent Trauma Absent #1 Nutrition Diagnosis Inadequate oral intake Diagnosis Progress(for reassessment Continues documentation) Is patient on ventilator? Yes Is Patient Ambulatory and/or Out of Bed No REE-([place]-confined to bed) 2477.928 Kcal/Kg value to use for calculation 20 Approximate Energy Requirements Using 2176 kcal/Kg Calculation Used for Recommendations Kcal/kg Additional Notes Protein Needs: 103-172g (1.2- 2g/kg) Fluid Needs: 1 ml/kcal Nutrition Intervention Nutrition Support: Glucerna 1.2 at 75ml/hr 100ml q4h Kcal 2,160 Protein (gm) 108 Fluid (mL) 1,449 Goal #1 Continue to meet at least 80% of kcal and protein needs Anticipated Discharge Needs: Unable to determine at this time Follow-Up By: 11/20/18 Additional Comments Follow for TF tolerance
[2018-11-12] MEDS: fentaNYL DRIP Premix 2,000 MCG/100 ML BAG IV SCH ×2 (08:04→08:11)
[2018-11-12] MEDS: LIORESAL PO SCH ×3 (08:10→21:00)
--- NOTE | 2018-11-12 08:14 | XRay Report ---
AP CHEST :11/12/18 07:56 CLINICAL: Intubated.Follow up respiratory failure. COMPARISON:The previous day. FINDINGS: The endotracheal tube is in satisfactory position. The feeding tube tip is below the diaphragm. The lungs are normally expanded and clear. No airspace disease or pleural effusion. Normal heart and pulmonary vessels. No pneumothorax. IMPRESSION: Normal chest.No congestive heart failure or pneumonia.
--- NOTE | 2018-11-12 08:21 | Progress Note ---
Assessment and Plan Acute hypoxemic respiratory failure, on mechanical ventilator support. Diabetic ketoacidosis. Severe metabolic acidosis. Severe sepsis with shock. Acute encephalopathy that appears to be toxic metabolic. End-stage renal disease, on dialysis. Hyperkalemia at presentation. Anemia that is macrocytic. Elevated serum transaminases, likely representing shock liver. Hypernatremia, improved Lactic acidosis. - Place intra-arterial line for invasive BP monitoring, BP was 220/110 this morning, responded marginally to IV hydrallazine -SBT once hemodynamics are normal -Follow up HIT panel, in the interim continue with SCDs for VTE prophylaxis - continue daily SAT's and SBT -adjust insulin therapy for better glycemic control. -goal blood glucose of 140-180 mg/dL - sedation target for RASS 0 to -1 - wean off vasopressors for MAP > 65 mmHg - continue to wean supplemental oxygen to keep O2 sats > 90% - continue empiric AB's for now (de-escalate based on clinical and radiologic data) - continue bronchodilators with pulmonary hygiene per RT - Lung protective strategies - VAP bundle addressed - continue HD/UF as tolerated for toxin and volume clearance - neurology evaluation ongoing - continue to avoid nephrotoxic agents, adjust all medications for CrCL - Strict intake and output monitoring - continue enteral nutrition as tolerated - continue accuchecks with glycemic control per SSI for target glucose of 140- 180 mg/dL - Maintenance of sleep -wake cycle - Mobility protocol for pressure ulcer prevention - continue stress ulcer prophylaxis - Influenza and pneumonia vaccination per protocol PROGNOSIS: GUARDED CONDITION: CRITICAL CODE STATUS: FULL CODE The high probability of a clinically significant, sudden or life-threatening deterioration of the [respiratory, neurology, renal, endocrine] system(s) required my full and direct attention, intervention and personal management. The aggregate critical care time was [35] minutes without overlap. Time includes spent on; [x] Data Review and interpretation [x] Patient assessment and monitoring of vital signs [x] Documentation [x] Medication orders and management Discussed care extensively with his mother. Answered all her questions. Subjective Date of service: 11/12/18 Principal diagnosis: Ac hypoxemic resp failure; DKA; Severe sepsis with shock; ESRD on dialysis Interval history: Patient is seen today for: Acute hypoxemic respiratory failure on MVS; DKA; Severe metabolic acidosis; Severe sepsis with shock; Acute encephalopathy that appears to be toxic metabolic; ESRD on dialysis; DM II; Peripheral vascular disease. Seen and examined at bedside; 24hour events reviewed; nursing and respiratory care staff consulted; no adverse overnight events reported to me; remains on MVS; AMS is persistent; still with encephalopathy, appears to posture with minimal stimulation; hypertensive this morning, with elevated blood glucose levels Objective Vital Signs - 12hr 11/11/18 11/11/18 11/11/18 20:30 21:00 21:30 Temperature Pulse Rate 101 H 101 H 95 H Respiratory 20 20 20 Rate Blood Pressure 141/93 132/86 129/84 O2 Sat by Pulse 99 98 99 Oximetry 11/11/18 11/11/18 11/11/18 22:00 22:30 22:47 Temperature Pulse Rate 101 H 112 H 101 H Respiratory 23 20 20 Rate Blood Pressure 155/91 180/102 O2 Sat by Pulse 98 98 100 Oximetry 11/11/18 11/11/18 11/12/18 23:00 23:30 00:00 Temperature 99.0 F Pulse Rate 105 H 105 H 135 H Respiratory 19 25 H 23 Rate Blood Pressure 173/94 162/88 185/85 O2 Sat by Pulse 99 96 97 Oximetry 11/12/18 11/12/18 11/12/18 00:30 01:00 01:30 Temperature Pulse Rate 106 H 108 H 101 H Respiratory 20 20 20 Rate Blood Pressure 147/84 158/88 186/102 O2 Sat by Pulse 95 97 98 Oximetry 11/12/18 11/12/18 11/12/18 01:38 02:00 02:30 Temperature Pulse Rate 101 H 99 H 97 H Respiratory 20 20 Rate Blood Pressure 175/97 125/66 130/70 O2 Sat by Pulse 97 98 Oximetry 11/12/18 11/12/18 11/12/18 03:00 03:30 04:00 Temperature 99.8 F H Pulse Rate 120 H 111 H 117 H Respiratory 19 20 15 Rate Blood Pressure 139/64 136/69 155/79 O2 Sat by Pulse 97 99 96 Oximetry 11/12/18 11/12/18 11/12/18 04:23 04:30 05:00 Temperature Pulse Rate 114 H 117 H 123 H Respiratory 20 16 Rate Blood Pressure 161/90 164/89 164/83 O2 Sat by Pulse 100 97 97 Oximetry 11/12/18 11/12/18 11/12/18 05:30 06:00 06:30 Temperature Pulse Rate 110 H 102 H 99 H Respiratory 20 20 20 Rate Blood Pressure 125/69 133/73 O2 Sat by Pulse 97 95 95 Oximetry 11/12/18 11/12/18 11/12/18 07:45 07:46 07:50 Temperature 99.0 F Pulse Rate 104 H 104 H Respiratory Rate Blood Pressure 210/103 210/103 O2 Sat by Pulse 95 Oximetry Constitutional: appears uncomfortable, other (middle aged AAM, normocephalic and atraumatic on MVS) Eyes: non-icteric ENT: oropharynx moist, other (ETT 25 cm FITO) Neck: supple, no lymphadenopathy, no JVD Effort: mildly labored Ascultation: Bilateral: clear, diminished breath sounds, rhonchi Percussion: Bilateral: not dull Cardiovascular: regular rate and rhythm, other (S1,S2, no murmurs, gallops or rubs) Gastrointestinal: normoactive bowel sounds, soft, non-tender, non-distended Integumentary: rash Extremities: no cyanosis, no edema, pulses normal, no ischemia or petechiae Neurologic: pupils equal and round (minimally reactive), unable to assess, other (intermittent myoclonic type jerks) Psychiatric: other (unable to assess re: AMS) CBC and BMP: 11/13/18 04:14 11/13/18 04:14 ABG, PT/INR, D-dimer: ABG POC ABG pH 7.418 (7.35-7.45) 11/11/18 05:31 POC ABG pCO2 48.8 (35-45) H 11/11/18 05:31 POC ABG pO2 109 (80-105) H 11/11/18 05:31 POC ABG HCO3 31.5 (22-26 mml/L) 11/11/18 05:31 POC ABG Total CO2 33 (23-27mmol/L) 11/11/18 05:31 POC ABG O2 Sat 98 11/11/18 05:31 Abnormal lab findings: Abnormal Labs 11/06/18 11/06/18 11/06/18 08:22 09:02 09:02 WBC 20.1 H RBC 3.40 L Hgb 10.5 L Hct MCV 119 H MCHC 26 L RDW 15.7 H Plt Count Lymph % (Auto) [place] % (Auto) Lymph # [place] # Seg Neutrophils % 80.1 H Seg Neuts % (Manual) 76.0 H Lymphocytes % (Manual) 4.0 L Monocytes % (Manual) Nucleated RBC % 1.0 H Seg Neutrophils # 16.1 H Seg Neutrophils # Man 15.3 H Lymphocytes # (Manual) 0.8 L Monocytes # (Manual) POC ABG pH POC ABG pCO2 POC ABG pO2 VBG pH Sodium 129 L Potassium 7.7 H* Chloride 79.7 L Carbon Dioxide 4 L* BUN 93 H Creatinine 7.4 H Glucose 1469 H* POC Glucose > 500 H Lactic Acid Calcium Phosphorus Magnesium Direct Bilirubin AST 2679 H ALT 1175 H C-Reactive Protein Total Protein 6.1 L Albumin 2.9 L Salicylates Acetaminophen 11/06/18 11/06/18 11/06/18 09:02 09:02 09:02 WBC RBC Hgb Hct MCV MCHC RDW Plt Count Lymph % (Auto) [place] % (Auto) Lymph # [place] # Seg Neutrophils % Seg Neuts % (Manual) Lymphocytes % (Manual) Monocytes % (Manual) Nucleated RBC % Seg Neutrophils # Seg Neutrophils # Man Lymphocytes # (Manual) Monocytes # (Manual) POC ABG pH POC ABG pCO2 POC ABG pO2 VBG pH Sodium Potassium Chloride Carbon Dioxide BUN Creatinine Glucose POC Glucose Lactic Acid 9.40 H* Calcium Phosphorus Magnesium Direct Bilirubin AST ALT C-Reactive Protein Total Protein Albumin Salicylates < 0.3 L Acetaminophen < 5.0 L 11/06/18 11/06/18 11/06/18 09:03 10:19 10:19 WBC RBC Hgb Hct MCV MCHC RDW Plt Count Lymph % (Auto) [place] % (Auto) Lymph # [place] # Seg Neutrophils % Seg Neuts % (Manual) Lymphocytes % (Manual) Monocytes % (Manual) Nucleated RBC % Seg Neutrophils # Seg Neutrophils # Man Lymphocytes # (Manual) Monocytes # (Manual) POC ABG pH 6.841 L POC ABG pCO2 POC ABG pO2 VBG pH Sodium 131 L Potassium 8.9 H* Chloride 85.3 L Carbon Dioxide 6 L* BUN 90 H Creatinine 7.1 H Glucose 1353 H* POC Glucose Lactic Acid Calcium 7.8 L Phosphorus 14.50 H Magnesium 2.70 H Direct Bilirubin AST ALT C-Reactive Protein Total Protein Albumin Salicylates Acetaminophen 11/06/18 11/06/18 11/06/18 12:07 13:22 13:22 WBC RBC Hgb Hct MCV MCHC RDW Plt Count Lymph % (Auto) [place] % (Auto) Lymph # [place] # Seg Neutrophils % Seg Neuts % (Manual) Lymphocytes % (Manual) Monocytes % (Manual) Nucleated RBC % Seg Neutrophils # Seg Neutrophils # Man Lymphocytes # (Manual) Monocytes # (Manual) POC ABG pH POC ABG pCO2 POC ABG pO2 VBG pH 6.982 L* Sodium 135 L Potassium 7.0 H* D Chloride 88.4 L Carbon Dioxide 5 L* BUN 89 H Creatinine 7.2 H Glucose 1326 H* POC Glucose Lactic Acid 8.50 H* Calcium Phosphorus Magnesium Direct Bilirubin AST ALT C-Reactive Protein Total Protein Albumin Salicylates Acetaminophen 11/06/18 11/06/18 11/06/18 14:15 14:15 15:21 WBC RBC Hgb Hct MCV MCHC RDW Plt Count Lymph % (Auto) [place] % (Auto) Lymph # [place] # Seg Neutrophils % Seg Neuts % (Manual) Lymphocytes % (Manual) Monocytes % (Manual) Nucleated RBC % Seg Neutrophils # Seg Neutrophils # Man Lymphocytes # (Manual) Monocytes # (Manual) POC ABG pH POC ABG pCO2 POC ABG pO2 VBG pH Sodium Potassium 6.6 H* 6.0 H Chloride 95.3 L 93.3 L Carbon Dioxide 4 L* 6 L* BUN 83 H 91 H Creatinine 6.9 H 7.3 H Glucose 1205 H* 1174 H* POC Glucose Lactic Acid Calcium 8.2 L Phosphorus 13.00 H Magnesium 2.60 H Direct Bilirubin AST ALT C-Reactive Protein Total Protein Albumin Salicylates Acetaminophen 11/06/18 11/06/18 11/06/18 15:21 16:14 16:33 WBC RBC Hgb Hct MCV MCHC RDW Plt Count Lymph % (Auto) [place] % (Auto) Lymph # [place] # Seg Neutrophils % Seg Neuts % (Manual) Lymphocytes % (Manual) Monocytes % (Manual) Nucleated RBC % Seg Neutrophils # Seg Neutrophils # Man Lymphocytes # (Manual) Monocytes # (Manual) POC ABG pH 7.004 L POC ABG pCO2 33.0 L POC ABG pO2 178 H VBG pH Sodium Potassium Chloride Carbon Dioxide BUN Creatinine Glucose POC Glucose > 500 H Lactic Acid 7.60 H* Calcium Phosphorus Magnesium Direct Bilirubin AST ALT C-Reactive Protein Total Protein Albumin Salicylates Acetaminophen 0511/06/18 11/06/18 17:34 19:30 19:30 WBC RBC Hgb Hct MCV MCHC RDW Plt Count Lymph % (Auto) [place] % (Auto) Lymph # [place] # Seg Neutrophils % Seg Neuts % (Manual) Lymphocytes % (Manual) Monocytes % (Manual) Nucleated RBC % Seg Neutrophils # Seg Neutrophils # Man Lymphocytes # (Manual) Monocytes # (Manual) POC ABG pH POC ABG pCO2 POC ABG pO2 VBG pH Sodium Potassium 5.5 H Chloride 97.4 L 97.7 L Carbon Dioxide 10 L 11 L BUN 88 H 87 H Creatinine 7.5 H 7.6 H Glucose 1054 H* 954 H* POC Glucose Lactic Acid Calcium 7.7 L 7.4 L Phosphorus Magnesium Direct Bilirubin AST ALT C-Reactive Protein 1.90 H Total Protein Albumin Salicylates Acetaminophen 11/06/18 11/06/18 11/06/18 20:31 20:40 20:40 WBC RBC Hgb Hct MCV MCHC RDW Plt Count Lymph % (Auto) [place] % (Auto) Lymph # [place] # Seg Neutrophils % Seg Neuts % (Manual) Lymphocytes % (Manual) Monocytes % (Manual) Nucleated RBC % Seg Neutrophils # Seg Neutrophils # Man Lymphocytes # (Manual) Monocytes # (Manual) POC ABG pH 7.245 L POC ABG pCO2 POC ABG pO2 132 H VBG pH Sodium Potassium Chloride Carbon Dioxide BUN Creatinine Glucose 907 H* POC Glucose Lactic Acid 4.40 H* Calcium Phosphorus Magnesium Direct Bilirubin AST ALT C-Reactive Protein Total Protein Albumin Salicylates Acetaminophen 11/06/18 11/06/18 11/06/18 22:05 22:40 23:35 WBC RBC Hgb Hct MCV MCHC RDW Plt Count Lymph % (Auto) [place] % (Auto) Lymph # [place] # Seg Neutrophils % Seg Neuts % (Manual) Lymphocytes % (Manual) Monocytes % (Manual) Nucleated RBC % Seg Neutrophils # Seg Neutrophils # Man Lymphocytes # (Manual) Monocytes # (Manual) POC ABG pH POC ABG pCO2 POC ABG pO2 VBG pH Sodium Potassium Chloride Carbon Dioxide 13 L BUN 86 H Creatinine 7.8 H Glucose 822 H* 726 H* POC Glucose Lactic Acid 3.40 H* Calcium 7.5 L Phosphorus Magnesium Direct Bilirubin AST ALT C-Reactive Protein Total Protein Albumin Salicylates Acetaminophen 11/07/18 11/07/18 11/07/18 01:25 01:26 03:15 WBC RBC Hgb Hct MCV MCHC RDW Plt Count Lymph % (Auto) [place] % (Auto) Lymph # [place] # Seg Neutrophils % Seg Neuts % (Manual) Lymphocytes % (Manual) Monocytes % (Manual) Nucleated RBC % Seg Neutrophils # Seg Neutrophils # Man Lymphocytes # (Manual) Monocytes # (Manual) POC ABG pH POC ABG pCO2 POC ABG pO2 VBG pH Sodium Potassium Chloride Carbon Dioxide BUN Creatinine Glucose 602 H* POC Glucose > 500 H > 500 H Lactic Acid Calcium Phosphorus Magnesium Direct Bilirubin AST ALT C-Reactive Protein Total Protein Albumin Salicylates Acetaminophen 11/07/18 11/07/18 11/07/18 03:20 04:32 04:47 WBC RBC Hgb Hct MCV MCHC RDW Plt Count Lymph % (Auto) [place] % (Auto) Lymph # [place] # Seg Neutrophils % Seg Neuts % (Manual) Lymphocytes % (Manual) Monocytes % (Manual) Nucleated RBC % Seg Neutrophils # Seg Neutrophils # Man Lymphocytes # (Manual) Monocytes # (Manual) POC ABG pH POC ABG pCO2 30.3 L POC ABG pO2 153 H VBG pH Sodium 149 H Potassium Chloride Carbon Dioxide 16 L BUN 86 H Creatinine 8.3 H Glucose 499.2 H POC Glucose 360 H Lactic Acid Calcium 7.6 L Phosphorus Magnesium Direct Bilirubin AST ALT C-Reactive Protein Total Protein Albumin Salicylates Acetaminophen 11/07/18 11/07/18 11/07/18 05:26 06:35 06:36 WBC RBC Hgb Hct MCV MCHC RDW Plt Count Lymph % (Auto) [place] % (Auto) Lymph # [place] # Seg Neutrophils % Seg Neuts % (Manual) Lymphocytes % (Manual) Monocytes % (Manual) Nucleated RBC % Seg Neutrophils # Seg Neutrophils # Man Lymphocytes # (Manual) Monocytes # (Manual) POC ABG pH POC ABG pCO2 POC ABG pO2 VBG pH Sodium 153 H Potassium 3.2 L Chloride 109.7 H Carbon Dioxide BUN 84 H Creatinine 8.6 H Glucose 249 H POC Glucose 341 H 274 H Lactic Acid Calcium 7.6 L Phosphorus Magnesium Direct Bilirubin AST ALT C-Reactive Protein Total Protein Albumin Salicylates Acetaminophen 11/07/18 11/07/18 11/07/18 07:33 09:00 09:52 WBC RBC Hgb Hct MCV MCHC RDW Plt Count Lymph % (Auto) [place] % (Auto) Lymph # [place] # Seg Neutrophils % Seg Neuts % (Manual) Lymphocytes % (Manual) Monocytes % (Manual) Nucleated RBC % Seg Neutrophils # Seg Neutrophils # Man Lymphocytes # (Manual) Monocytes # (Manual) POC ABG pH POC ABG pCO2 POC ABG pO2 VBG pH Sodium Potassium Chloride Carbon Dioxide BUN Creatinine Glucose POC Glucose 243 H 182 H 227 H Lactic Acid Calcium Phosphorus Magnesium Direct Bilirubin AST ALT C-Reactive Protein Total Protein Albumin Salicylates Acetaminophen 11/07/18 11/07/18 11/07/18 10:50 10:50 10:50 WBC 11.3 H RBC 2.85 L Hgb 8.7 L Hct 25.3 L D MCV MCHC RDW Plt Count Lymph % (Auto) 9.7 L [place] % (Auto) Lymph # 1.1 L [place] # Seg Neutrophils % 83.3 H Seg Neuts % (Manual) Lymphocytes % (Manual) Monocytes % (Manual) Nucleated RBC % Seg Neutrophils # 9.4 H Seg Neutrophils # Man Lymphocytes # (Manual) Monocytes # (Manual) POC ABG pH POC ABG pCO2 POC ABG pO2 VBG pH Sodium 154 H Potassium 3.2 L Chloride 110.2 H Carbon Dioxide BUN 82 H Creatinine 8.3 H Glucose 186 H POC Glucose 200 H Lactic Acid Calcium 7.3 L Phosphorus Magnesium Direct Bilirubin AST ALT C-Reactive Protein Total Protein Albumin Salicylates Acetaminophen 11/07/18 11/07/18 11/07/18 12:00 12:05 13:13 WBC RBC Hgb Hct MCV MCHC RDW Plt Count Lymph % (Auto) [place] % (Auto) Lymph # [place] # Seg Neutrophils % Seg Neuts % (Manual) Lymphocytes % (Manual) Monocytes % (Manual) Nucleated RBC % Seg Neutrophils # Seg Neutrophils # Man Lymphocytes # (Manual) Monocytes # (Manual) POC ABG pH POC ABG pCO2 POC ABG pO2 VBG pH Sodium Potassium Chloride Carbon Dioxide BUN Creatinine Glucose POC Glucose 179 H 190 H Lactic Acid 2.50 H* Calcium Phosphorus Magnesium Direct Bilirubin AST ALT C-Reactive Protein Total Protein Albumin Salicylates Acetaminophen 11/07/18 11/07/18 11/07/18 13:20 14:05 15:18 WBC RBC Hgb Hct MCV MCHC RDW Plt Count Lymph % (Auto) [place] % (Auto) Lymph # [place] # Seg Neutrophils % Seg Neuts % (Manual) Lymphocytes % (Manual) Monocytes % (Manual) Nucleated RBC % Seg Neutrophils # Seg Neutrophils # Man Lymphocytes # (Manual) Monocytes # (Manual) POC ABG pH POC ABG pCO2 POC ABG pO2 VBG pH Sodium Potassium 3.1 L Chloride Carbon Dioxide BUN 50 H Creatinine 5.0 H Glucose 176 H POC Glucose 189 H 215 H Lactic Acid Calcium 7.4 L Phosphorus Magnesium Direct Bilirubin AST ALT C-Reactive Protein Total Protein Albumin Salicylates Acetaminophen 11/07/18 11/07/18 11/07/18 16:25 17:37 23:23 WBC RBC Hgb Hct MCV MCHC RDW Plt Count Lymph % (Auto) [place] % (Auto) Lymph # [place] # Seg Neutrophils % Seg Neuts % (Manual) Lymphocytes % (Manual) Monocytes % (Manual) Nucleated RBC % Seg Neutrophils # Seg Neutrophils # Man Lymphocytes # (Manual) Monocytes # (Manual) POC ABG pH POC ABG pCO2 POC ABG pO2 VBG pH Sodium Potassium Chloride Carbon Dioxide BUN Creatinine Glucose POC Glucose 180 H 215 H 234 H Lactic Acid Calcium Phosphorus Magnesium Direct Bilirubin AST ALT C-Reactive Protein Total Protein Albumin Salicylates Acetaminophen 11/08/18 11/08/18 11/08/18 04:17 04:23 04:23 WBC RBC 2.98 L Hgb 9.3 L Hct 26.7 L MCV MCHC 35 H RDW Plt Count 130 L Lymph % (Auto) [place] % (Auto) Lymph # [place] # Seg Neutrophils % 80.3 H Seg Neuts % (Manual) Lymphocytes % (Manual) Monocytes % (Manual) Nucleated RBC % Seg Neutrophils # 7.8 H Seg Neutrophils # Man Lymphocytes # (Manual) Monocytes # (Manual) POC ABG pH 7.520 H POC ABG pCO2 POC ABG pO2 111 H VBG pH Sodium Potassium 3.0 L Chloride Carbon Dioxide BUN 44 H Creatinine 6.3 H Glucose 245 H POC Glucose Lactic Acid Calcium 7.3 L Phosphorus Magnesium Direct Bilirubin AST ALT C-Reactive Protein Total Protein Albumin Salicylates Acetaminophen 11/08/18 11/08/18 11/08/18 05:19 08:00 08:00 WBC RBC Hgb Hct MCV MCHC RDW Plt Count Lymph % (Auto) [place] % (Auto) Lymph # [place] # Seg Neutrophils % Seg Neuts % (Manual) Lymphocytes % (Manual) Monocytes % (Manual) Nucleated RBC % Seg Neutrophils # Seg Neutrophils # Man Lymphocytes # (Manual) Monocytes # (Manual) POC ABG pH POC ABG pCO2 POC ABG pO2 VBG pH Sodium Potassium Chloride Carbon Dioxide BUN Creatinine Glucose POC Glucose 253 H Lactic Acid 2.70 H* Calcium Phosphorus Magnesium Direct Bilirubin 0.3 H AST 932 H ALT 582 H C-Reactive Protein Total Protein 5.4 L Albumin 2.6 L Salicylates Acetaminophen 11/08/18 11/08/18 11/08/18 11:36 17:51 23:28 WBC RBC Hgb Hct MCV MCHC RDW Plt Count Lymph % (Auto) [place] % (Auto) Lymph # [place] # Seg Neutrophils % Seg Neuts % (Manual) Lymphocytes % (Manual) Monocytes % (Manual) Nucleated RBC % Seg Neutrophils # Seg Neutrophils # Man Lymphocytes # (Manual) Monocytes # (Manual) POC ABG pH 7.459 H POC ABG pCO2 POC ABG pO2 108 H VBG pH Sodium Potassium Chloride Carbon Dioxide BUN Creatinine Glucose POC Glucose 197 H 418 H Lactic Acid Calcium Phosphorus Magnesium Direct Bilirubin AST ALT C-Reactive Protein Total Protein Albumin Salicylates Acetaminophen 11/09/18 11/09/18 11/09/18 00:39 02:20 03:48 WBC RBC Hgb Hct MCV MCHC RDW Plt Count Lymph % (Auto) [place] % (Auto) Lymph # [place] # Seg Neutrophils % Seg Neuts % (Manual) Lymphocytes % (Manual) Monocytes % (Manual) Nucleated RBC % Seg Neutrophils # Seg Neutrophils # Man Lymphocytes # (Manual) Monocytes # (Manual) POC ABG pH POC ABG pCO2 POC ABG pO2 108 H VBG pH Sodium Potassium Chloride Carbon Dioxide BUN Creatinine Glucose POC Glucose 471 H 254 H Lactic Acid Calcium Phosphorus Magnesium Direct Bilirubin AST ALT C-Reactive Protein Total Protein Albumin Salicylates Acetaminophen 11/09/18 11/09/18 11/09/18 06:02 06:02 17:49 WBC RBC 2.95 L Hgb 9.2 L Hct 26.7 L MCV MCHC RDW Plt Count 101 L Lymph % (Auto) [place] % (Auto) Lymph # [place] # Seg Neutrophils % Seg Neuts % (Manual) Lymphocytes % (Manual) Monocytes % (Manual) Nucleated RBC % Seg Neutrophils # Seg Neutrophils # Man Lymphocytes # (Manual) Monocytes # (Manual) POC ABG pH POC ABG pCO2 POC ABG pO2 VBG pH Sodium 150 H Potassium Chloride 108.3 H Carbon Dioxide BUN 44 H Creatinine 7.7 H Glucose 102 H POC Glucose 184 H Lactic Acid Calcium 7.2 L Phosphorus Magnesium Direct Bilirubin AST 554 H ALT 461 H C-Reactive Protein Total Protein 5.1 L Albumin 2.6 L Salicylates Acetaminophen 11/09/18 11/09/18 11/10/18 18:49 23:32 05:00 WBC RBC Hgb Hct MCV MCHC RDW Plt Count Lymph % (Auto) [place] % (Auto) Lymph # [place] # Seg Neutrophils % Seg Neuts % (Manual) Lymphocytes % (Manual) Monocytes % (Manual) Nucleated RBC % Seg Neutrophils # Seg Neutrophils # Man Lymphocytes # (Manual) Monocytes # (Manual) POC ABG pH POC ABG pCO2 46.2 H POC ABG pO2 VBG pH Sodium Potassium Chloride Carbon Dioxide BUN 33 H Creatinine 6.8 H Glucose 251 H POC Glucose 150 H Lactic Acid Calcium 7.3 L Phosphorus Magnesium Direct Bilirubin AST ALT C-Reactive Protein Total Protein Albumin Salicylates Acetaminophen 11/10/18 11/10/18 11/10/18 05:00 05:16 11:47 WBC RBC 2.95 L Hgb 8.9 L Hct 26.6 L MCV MCHC RDW Plt Count 100 L Lymph % (Auto) [place] % (Auto) Lymph # [place] # Seg Neutrophils % Seg Neuts % (Manual) Lymphocytes % (Manual) Monocytes % (Manual) 8.0 H Nucleated RBC % Seg Neutrophils # Seg Neutrophils # Man Lymphocytes # (Manual) Monocytes # (Manual) POC ABG pH POC ABG pCO2 POC ABG pO2 VBG pH Sodium Potassium Chloride Carbon Dioxide BUN Creatinine Glucose POC Glucose 242 H 261 H Lactic Acid Calcium Phosphorus Magnesium Direct Bilirubin AST ALT C-Reactive Protein Total Protein Albumin Salicylates Acetaminophen 11/10/18 11/10/18 11/11/18 17:32 23:39 00:26 WBC RBC Hgb Hct MCV MCHC RDW Plt Count Lymph % (Auto) [place] % (Auto) Lymph # [place] # Seg Neutrophils % Seg Neuts % (Manual) Lymphocytes % (Manual) Monocytes % (Manual) Nucleated RBC % Seg Neutrophils # Seg Neutrophils # Man Lymphocytes # (Manual) Monocytes # (Manual) POC ABG pH POC ABG pCO2 POC ABG pO2 VBG pH Sodium Potassium Chloride Carbon Dioxide BUN Creatinine Glucose POC Glucose 194 H 60 L 124 H Lactic Acid Calcium Phosphorus Magnesium Direct Bilirubin AST ALT C-Reactive Protein Total Protein Albumin Salicylates Acetaminophen 11/11/18 11/11/18 11/11/18 04:24 04:24 05:27 WBC RBC 2.98 L Hgb 9.1 L Hct 27.4 L MCV MCHC RDW Plt Count 114 L Lymph % (Auto) [place] % (Auto) Lymph # [place] # Seg Neutrophils % Seg Neuts % (Manual) Lymphocytes % (Manual) Monocytes % (Manual) 10.0 H Nucleated RBC % Seg Neutrophils # Seg Neutrophils # Man Lymphocytes # (Manual) Monocytes # (Manual) 1.0 H POC ABG pH POC ABG pCO2 POC ABG pO2 VBG pH Sodium Potassium Chloride Carbon Dioxide BUN 23 H Creatinine 5.5 H Glucose 147 H POC Glucose 172 H Lactic Acid Calcium 7.9 L Phosphorus Magnesium Direct Bilirubin AST 152 H ALT 247 H C-Reactive Protein Total Protein Albumin 2.3 L Salicylates Acetaminophen 11/11/18 11/11/18 11/11/18 05:31 12:11 17:12 WBC RBC Hgb Hct MCV MCHC RDW Plt Count Lymph % (Auto) [place] % (Auto) Lymph # [place] # Seg Neutrophils % Seg Neuts % (Manual) Lymphocytes % (Manual) Monocytes % (Manual) Nucleated RBC % Seg Neutrophils # Seg Neutrophils # Man Lymphocytes # (Manual) Monocytes # (Manual) POC ABG pH POC ABG pCO2 48.8 H POC ABG pO2 109 H VBG pH Sodium Potassium Chloride Carbon Dioxide BUN Creatinine Glucose POC Glucose 343 H 188 H Lactic Acid Calcium Phosphorus Magnesium Direct Bilirubin AST ALT C-Reactive Protein Total Protein Albumin Salicylates Acetaminophen 11/11/18 11/12/18 11/12/18 23:41 00:11 04:44 WBC RBC 2.91 L Hgb 9.0 L Hct 26.9 L MCV MCHC RDW Plt Count Lymph % (Auto) 12.7 L [place] % (Auto) 14.9 H Lymph # 0.8 L [place] # 1.0 H Seg Neutrophils % 71.2 H Seg Neuts % (Manual) Lymphocytes % (Manual) Monocytes % (Manual) Nucleated RBC % Seg Neutrophils # Seg Neutrophils # Man Lymphocytes # (Manual) Monocytes # (Manual) POC ABG pH POC ABG pCO2 POC ABG pO2 VBG pH Sodium Potassium Chloride Carbon Dioxide BUN Creatinine Glucose POC Glucose 145 H 151 H Lactic Acid Calcium Phosphorus Magnesium Direct Bilirubin AST ALT C-Reactive Protein Total Protein Albumin Salicylates Acetaminophen 11/12/18 04:44 WBC RBC Hgb Hct MCV MCHC RDW Plt Count Lymph % (Auto) [place] % (Auto) Lymph # [place] # Seg Neutrophils % Seg Neuts % (Manual) Lymphocytes % (Manual) Monocytes % (Manual) Nucleated RBC % Seg Neutrophils # Seg Neutrophils # Man Lymphocytes # (Manual) Monocytes # (Manual) POC ABG pH POC ABG pCO2 POC ABG pO2 VBG pH Sodium Potassium Chloride Carbon Dioxide BUN 22 H Creatinine 5.0 H Glucose 288 H POC Glucose Lactic Acid Calcium Phosphorus Magnesium Direct Bilirubin AST 88 H ALT 187 H C-Reactive Protein Total Protein Albumin 2.9 L Salicylates Acetaminophen Chest x-ray: image reviewed (ETT in position, no acute pulmoanry infiltrates no owen) Allied health notes reviewed: nursing
[2018-11-12] MEDS ORDERED: NACL 0.9% 1000 ML 1,000 ML ONE (08:42)
[2018-11-12] MEDS ORDERED: APRESOLINE IV ONE (09:00)
[2018-11-12] MEDS: KEPPRA PO SCH (09:49)
[2018-11-12] MEDS: PREVACID SOLUTAB FEEDTUBE SCH ×2 (09:49→22:00)
[2018-11-12] MEDS: FLOMAX PO SCH (09:49)
[2018-11-12] MEDS: PROVIGIL PO SCH (09:50)
[2018-11-12] MEDS: SODIUM CHLORIDE FLUSH SYRINGE 10 ML IV SCH ×2 (09:50→22:00)
[2018-11-12] MEDS: APRESOLINE PO SCH ×3 (10:30→22:00)
--- NOTE | 2018-11-12 10:52 | Progress Note ---
Assessment and Plan Optimize BPs - initiate lopressor, hydralazine also initiated today per primary team. Continue supportive measures. The patient has been seen in conjunction with Dr. Loving who agrees with the assessment and plan of care. - Patient Problems (1) Cardiopulmonary arrest Current Visit: Yes Status: Acute (2) Cardiomyopathy Current Visit: Yes Status: Acute (3) DKA (diabetic ketoacidoses) Current Visit: Yes Status: Acute Qualifiers: Diabetes mellitus type: type 2 Diabetes mellitus complication detail: with coma Qualified Code(s): E11.11 - Type 2 diabetes mellitus with ketoacidosis with coma (4) Metabolic acidosis Current Visit: Yes Status: Acute (5) Anoxic brain injury Current Visit: Yes Status: Suspected (6) ESRD (end stage renal disease) on dialysis Current Visit: Yes Status: Chronic (7) Anemia Current Visit: Yes Status: Acute (8) Thrombocytopenia Current Visit: Yes Status: Acute (9) PAD (peripheral artery disease) Current Visit: Yes Status: Chronic (10) History of seizures Current Visit: Yes Status: Chronic (11) Tobacco use Current Visit: Yes Status: Chronic Subjective Date of service: 11/12/18 Principal diagnosis: Ac hypoxemic resp failure; DKA; Severe sepsis with shock; ESRD on dialysis Interval history: pt remains intubated, nonresponsive. BPs elevated. Objective Last Vital Signs Temp 99.0 F 11/12/18 07:46 Pulse 124 H 11/12/18 09:05 Resp 20 11/12/18 06:30 BP 194/94 11/12/18 09:05 Pulse Ox 95 11/12/18 07:50 - Physical Examination General: Other (intubated, unresponsive) HEENT: Positive: Other (patient is intubated. Not responsive. Not on any IV sedation. Pupils are fixed and dilated.) Cardiac: Positive: Regular Rhythm, S1/S2 Lungs: Positive: Ventilated Respirations Abdomen: Positive: Unremarkable, Soft, Active Bowel Sounds Extremities: Present: Cool. Absent: edema - Labs and Meds Cardiac Enzymes 11/12/18 Range/Units 04:44 AST 88 H (5-40) units/L CBC 11/12/18 Range/Units 04:44 WBC 6.6 (4.5-11.0) K/mm3 RBC 2.91 L (3.65-5.03) M/mm3 Hgb 9.0 L (11.8-15.2) gm/dl Hct 26.9 L (35.5-45.6) % Plt Count 176 (140-440) K/mm3 Lymph # 0.8 L (1.2-5.4) K/mm3 [place] # 1.0 H (0.0-0.8) K/mm3 Eos # 0.1 (0.0-0.4) K/mm3 Baso # 0.0 (0.0-0.1) K/mm3 Comprehensive Metabolic Panel 11/12/18 Range/Units 04:44 Sodium 142 (137-145) mmol/L Potassium 4.3 (3.6-5.0) mmol/L Chloride 100.0 (98-107) mmol/L Carbon Dioxide 27 (22-30) mmol/L BUN 22 H (9-20) mg/dL Creatinine 5.0 H (0.8-1.5) mg/dL Glucose 288 H (75-100) mg/dL Calcium 9.3 D (8.4-10.2) mg/dL AST 88 H (5-40) units/L ALT 187 H (7-56) units/L Alkaline Phosphatase 124 (35-129) units/L Total Protein 6.5 (6.3-8.2) g/dL Albumin 2.9 L (3.9-5) g/dL - Imaging and Cardiology EKG: report reviewed, image reviewed Echo: report reviewed (EF 30-35%, mild MR and TR. ) - EKG Sinus rhythms and dysrhythmias: sinus arrest or pause Ventricular dysrhythmias: idioventricular escape rh AV and intraventricular conduction: intraventricular conducti Repolarization changes or abnormalities: Suggestive of hyperkalemia (wide QRS complexes and ST depression evaluation probably all due to severe hyperkalemia. The last EKG does not show any ST elevation but continues to show peaked T waves.) - Allied health notes Allied health notes reviewed: nursing
--- NOTE | 2018-11-12 11:07 | Progress Note ---
Assessment and Plan Acute Kidney Injury secondary to ischemic ATN from hypotension, cardiac arrest, in setting of underlying hx CKD 4: Severe Renal Failure, requiring hemodialysis initiation: S/P High Anion Gap Metabolic Acidosis with elevated lactic acidosis with DKA: S/P Hyperkalemia: S/P Hyperphosphatemia: Hypernatremia: Hypokalemia, Resolving: - no indication for HD today - Strict monitoring of I/O's - Hypernatremia- On free water flushes of 250 ml every 4 hours via NG tube - Monitor BMP daily - Renally dose medications - Avoid Nephrotoxic agents - Obtain daily weights - Salgado Catheter: Yes - Assess dialysis needs daily S/p Cardiopulmonary arrest. STEMI: Hypoxic respiratory failure: -S/P CPR and ACLS protocol -Now off pressor support -Cardiology on board -Intubated on Vent. 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 per neurology -On IV Keppra -As per Neurology Nitish Marti MD [phone] Subjective Date of service: 11/12/18 Principal diagnosis: Ac hypoxemic resp failure; DKA; Severe sepsis with shock; ESRD on dialysis Interval history: intubated, mother at bedside, all questions answered Objective - Vital Signs Vital signs: Vital Signs - 12hr 11/11/18 11/12/18 11/12/18 23:30 00:00 00:30 Temperature 99.0 F Pulse Rate 105 H 135 H 106 H Respiratory 25 H 23 20 Rate Blood Pressure 162/88 185/85 147/84 O2 Sat by Pulse 96 97 95 Oximetry 11/12/18 11/12/18 11/12/18 01:00 01:30 01:38 Temperature Pulse Rate 108 H 101 H 101 H Respiratory 20 20 Rate Blood Pressure 158/88 186/102 175/97 O2 Sat by Pulse 97 98 Oximetry 11/12/18 11/12/18 11/12/18 02:00 02:30 03:00 Temperature Pulse Rate 99 H 97 H 120 H Respiratory 20 20 19 Rate Blood Pressure 125/66 130/70 139/64 O2 Sat by Pulse 97 98 97 Oximetry 11/12/18 11/12/18 11/12/18 03:30 04:00 04:23 Temperature 99.8 F H Pulse Rate 111 H 117 H 114 H Respiratory 20 15 Rate Blood Pressure 136/69 155/79 161/90 O2 Sat by Pulse 99 96 100 Oximetry 11/12/18 11/12/18 11/12/18 04:30 05:00 05:30 Temperature Pulse Rate 117 H 123 H 110 H Respiratory 20 16 20 Rate Blood Pressure 164/89 164/83 O2 Sat by Pulse 97 97 97 Oximetry 11/12/18 11/12/18 11/12/18 06:00 06:30 07:45 Temperature Pulse Rate 102 H 99 H 104 H Respiratory 20 20 Rate Blood Pressure 125/69 133/73 210/103 O2 Sat by Pulse 95 95 Oximetry 11/12/18 11/12/18 11/12/18 07:46 07:50 09:05 Temperature 99.0 F Pulse Rate 104 H 124 H Respiratory Rate Blood Pressure 210/103 194/94 O2 Sat by Pulse 95 Oximetry - General Appearance General appearance: well-developed, well-nourished, sedated on ventilator EENT: ATNC, PERRL, mucous membranes moist Neck: no JVD, no carotid bruit Respiratory: Present: Clear to Ascultation. Absent: Rales, Ronchi Cardiology: regular Gastrointestinal: normoactive bowel sounds, no tenderness, no distended Integumentary: no rash, warm and dry Neurologic: other (intubated) Musculoskeletal: other (trace pitting edema in BLE) Psychiatric: other (intubated) - Lab 11/12/18 04:44 11/12/18 04:44 Most recent lab results Calcium 9.3 mg/dL (8.4-10.2) D 11/12/18 04:44 Phosphorus 3.50 mg/dL (2.5-4.5) 11/12/18 04:44 Magnesium 2.00 mg/dL (1.7-2.3) 11/12/18 04:44 Medications & Allergies - Medications Allergies/Adverse Reactions: Allergies No Known Allergies Allergy (Verified 03/17/18 11:54) Home Medications: Home Medications Medication Instructions Recorded Confirmed Last Taken Type Esomeprazole Magnesium [NexIUM] 20 mg PO QDAY #30 suspdr.pkt 03/17/18 11/07/18 Unknown Rx HYDROcodone/APAP 5-325 [[place] 1 each PO Q6HR PRN #15 tablet 03/17/18 11/07/18 Unknown Rx 5/325] Metoclopramide [Reglan] 10 mg PO TID #21 tab 03/17/18 11/07/18 Unknown Rx Ondansetron [Zofran Odt] 4 mg PO Q4HR PRN #20 tab.rapdis 03/17/18 11/07/18 Unknown Rx Active Medications: Generic Name Dose Route Start Last Admin Trade Name Freq PRN Reason Stop Dose Admin Acetaminophen 650 mg 11/06/18 22:22 11/11/18 07:33 Tylenol FEEDTUBE 650 mg Q6H PRN Administration Fever >101 Lipase/Protease/Amylase 1 each 11/08/18 18:[address] 10,500 Unit FEEDTUBE PRN PRN For Clogged Feeding Tube Baclofen 5 mg 11/10/18 14:00 11/12/18 08:10 Lioresal PO 5 mg TID MARIAJOSE Administration Chlorpromazine HCl 10 mg 11/07/18 08:07 11/10/18 05:36 Thorazine PO 10 mg Q6H PRN Administration Hiccups Dextrose 50 ml 11/07/18 16:46 11/10/18 23:43 D50w (25gm) Syringe IV 50 ml PRN PRN Administration Hypoglycemia Fentanyl 50 mcg 11/06/18 08:37 Sublimaze IV Q10MIN PRN ANALGESIA Hydralazine HCl 10 mg 11/08/18 00:56 11/12/18 07:45 Apresoline IV 10 mg Q4H PRN Administration Hypertension Hydralazine HCl 25 mg 11/12/18 09:00 Apresoline PO Q8HR [facility] Hydrophilic Ointment 1 applic 11/06/18 08:26 11/10/18 19:52 Vaseline Lip Therapy TP 1 applic Q2HR PRN Administration Dry Lips Fentanyl Citrate 2,000 mcg in 100 mls @ 4.309 mls/hr 11/06/18 10:00 11/12/18 08:11 Fentanyl Drip Premix IV 1 mcg/kg/hr TITR MARIAJOSE 4.309 mls/hr Administration Protocol 1 MCG/KG/HR Sodium Chloride 100 mls @ 999 mls/hr 11/10/18 11:26 Nacl 0.9% IV MARY PRN Hypotension Insulin Human Isoph/Insulin Regular 22 unit 11/10/18 17:00 11/12/18 07:48 Humulin 70/30 SUB-Q 22 unit BIDDIAB MARIAJOSE Administration Insulin Human Regular 0 units 11/07/18 18:00 11/12/18 06:33 Humulin R SUB-Q 6 units Q6HR MARIAJOSE Administration Protocol Lansoprazole 30 mg 11/09/18 10:00 11/12/18 09:49 Prevacid Solutab FEEDTUBE 30 mg BID MARIAJOSE Administration Levetiracetam 1,000 mg 11/10/18 10:00 11/12/18 09:49 Keppra PO 1,000 mg BID MARIAJOSE Administration Lorazepam 2 mg 11/12/18 08:31 Ativan IV Q4H PRN Agitation Metoprolol Tartrate 50 mg 11/12/18 11:00 Lopressor PO BID MARIAJOSE Modafinil 100 mg 11/11/18 10:00 11/12/18 09:50 Provigil PO 100 mg QAM MARIAJOSE Administration Multi-Ingred Cream/Lotion/Oil/Oint 1 applic 11/06/18 08:26 Artificial Tears Ophth Oint OU Q4HR PRN Dry Eye(s) Simple Syrup 15 ml 11/08/18 18:38 Simple Syrup FEEDTUBE PRN PRN Hypoglycemia Simple Syrup 30 ml 11/08/18 18:38 Simple Syrup FEEDTUBE PRN PRN Hypoglycemia Sodium Bicarbonate 325 mg 11/08/18 18:38 Sodium Bicarbonate FEEDTUBE PRN PRN For Clogged Feeding Tube Sodium Chloride 10 ml 11/06/18 22:00 11/12/18 09:50 Sodium Chloride Flush Syringe 10 Ml IV 10 ml BID MARIAJOSE Administration Sodium Chloride 10 ml 11/06/18 12:42 Sodium Chloride Flush Syringe 10 Ml IV PRN PRN LINE FLUSH Tamsulosin HCl 0.4 mg 11/10/18 13:00 11/12/18 09:49 Flomax PO 0.4 mg QDAY MARIAJOSE Administration
[2018-11-12] MEDS: LOPRESSOR PO SCH ×2 (11:39→22:00)
[2018-11-12] MEDS: ATIVAN IV PRN ×2 (12:35→18:11)
[2018-11-12] MEDS ORDERED: HumuLIN R SUB-Q ONE (13:00)
[2018-11-12] MEDS ORDERED: CARDENE 50 MG in NACL 0.9% 250ML 230 ML IV SCH (13:00)
[2018-11-12 16:02] LABS: Heparin-Induced Platelet Antib Positive (Negative); Unfractionated Heparin Negative (Negative)
--- NOTE | 2018-11-12 17:04 | Progress Note ---
Assessment and Plan Assessment and plan: --Accelerated hypertension; continue metoprolol, nicardipine IV hydralazine when necessary, add by mouth hydralazine If no improvement to start Cardene drip --S/P Cardiopulmonary Arrest-unknown etiology Continue supportive care, ventilatory support, nebulizers --Acute Hypoxic Respiratory failure; on ventilatory support Nebulizers, pulmonary following, wean as tolerated and extubate Possible trach and PEG if no improvement --Anoxic Encephalopathy; neurology following, supportive care Poor prognosis, follow EEG --DKA-corrected; uncontrolled blood sugars Accu-Chek sliding scale coverage and ADA diet, 7030 insulin Increase the dose Dose and adjust as needed --Severe metabolic Acidosis; multifactorial closely monitor --Thrombocytopenia possible HIT; hematology oncology evaluation If needed --Seizure Disorder; seizure precautions Antiepileptic medications, neurology following --Acute Kidney Injury secondary to ischemic ATN from hypotension, underlying hx CKD 4: Avoid nephrotoxins, nephrology following Hemodialysis per schedule --Cardiogenic Shock; supportive care, management per cardiology --Anemia of chronic disease; monitor H&H and transfuse as needed --Severe malnutrition/nutritional supplements, nutrition consult; --PAD; continue current management --Shock Liver; with transaminitis, trending down supportive care --DVT prophylaxis; SCDs --Full CODE STATUS Very poor prognosis. plan of care is reviewed with the patient's nurse and patient's mother at the bedside Critical care time 32 minutes History Interval history: Patient seen and examined medical records reviewed No new events reported by the nursing Patient remains intubated on ventilatory support Vital signs reviewed The patient's uncontrolled Hospitalist Physical - Constitutional Vitals: Temp Pulse Resp BP Pulse Ox 99.4 F 89 19 147/81 100 11/12/18 15:55 11/12/18 15:56 11/12/18 15:00 11/12/18 15:56 11/12/18 15:56 General appearance: Present: no acute distress, well-nourished, other (intubated on vent) - EENT Eyes: Present: PERRL, EOM intact - Neck Neck: Present: supple, normal ROM - Respiratory Respiratory effort: normal Respiratory: bilateral: diminished, rhonchi, negative: rales, wheezing - Cardiovascular Rhythm: regular Heart Sounds: Present: S1 & S2 - Extremities Extremities: no ischemia, No edema - Abdominal General gastrointestinal: soft, non-tender, non-distended, normal bowel sounds - Integumentary Integumentary: Present: clear, warm - Psychiatric Psychiatric: other (unresponsive on vent) - Neurologic Neurologic: other (noncommunicative unresponsive on vent) Results - Labs CBC & Chem 7: 11/12/18 04:44 11/12/18 04:44 Labs: Laboratory Last Values WBC 6.6 K/mm3 (4.5-11.0) 11/12/18 04:44 RBC 2.91 M/mm3 (3.65-5.03) L 11/12/18 04:44 Hgb 9.0 gm/dl (11.8-15.2) L 11/12/18 04:44 Hct 26.9 % (35.5-45.6) L 11/12/18 04:44 MCV 92 fl (84-94) 11/12/18 04:44 MCH 31 pg (28-32) 11/12/18 04:44 MCHC 33 % (32-34) 11/12/18 04:44 RDW 14.6 % (13.2-15.2) 11/12/18 04:44 Plt Count 176 K/mm3 (140-440) 11/12/18 04:44 Lymph % (Auto) 12.7 % (13.4-35.0) L 11/12/18 04:44 [place] % (Auto) 14.9 % (0.0-7.3) H 11/12/18 04:44 Eos % (Auto) 0.9 % (0.0-4.3) 11/12/18 04:44 Baso % (Auto) 0.3 % (0.0-1.8) 11/12/18 04:44 Lymph # 0.8 K/mm3 (1.2-5.4) L 11/12/18 04:44 [place] # 1.0 K/mm3 (0.0-0.8) H 11/12/18 04:44 Eos # 0.1 K/mm3 (0.0-0.4) 11/12/18 04:44 Baso # 0.0 K/mm3 (0.0-0.1) 11/12/18 04:44 Add Manual Diff Complete 11/11/18 04:24 Total Counted 100 11/11/18 04:24 Seg Neutrophils % 71.2 % (40.0-70.0) H 11/12/18 04:44 Seg Neuts % (Manual) 66.0 % (40.0-70.0) 11/11/18 04:24 0 % 11/11/18 04:24 22.0 % (13.4-35.0) 11/11/18 04:24 Reactive Lymphs % (Man) 0 % 11/11/18 04:24 10.0 % (0.0-7.3) H 11/11/18 04:24 2.0 % (0.0-4.3) 11/11/18 04:24 0 % (0.0-1.8) 11/11/18 04:24 0 % 11/11/18 04:24 0 % 11/11/18 04:24 0 % 11/11/18 04:24 0 % 11/11/18 04:24 Nucleated RBC % Not Reportable 11/11/18 04:24 Seg Neutrophils # 4.7 K/mm3 (1.8-7.7) 11/12/18 04:44 Seg Neutrophils # Man 6.9 K/mm3 (1.8-7.7) 11/11/18 04:24 Band Neutrophils # 0.0 K/mm3 11/11/18 04:24 2.3 K/mm3 (1.2-5.4) 11/11/18 04:24 Abs React Lymphs (Man) 0.0 K/mm3 11/11/18 04:24 1.0 K/mm3 (0.0-0.8) H 11/11/18 04:24 0.2 K/mm3 (0.0-0.4) 11/11/18 04:24 0.0 K/mm3 (0.0-0.1) 11/11/18 04:24 0.0 K/mm3 11/11/18 04:24 0.0 K/mm3 11/11/18 04:24 0.0 K/mm3 11/11/18 04:24 Blast Cells # 0.0 K/mm3 11/11/18 04:24 WBC Morphology Not Reportable 11/11/18 04:24 Hypersegmented Neuts Not Reportable 11/11/18 04:24 Hyposegmented Neuts Not Reportable 11/11/18 04:24 Hypogranular Neuts Not Reportable 11/11/18 04:24 Not Reportable 11/11/18 04:24 Not Reportable 11/11/18 04:24 Not Reportable 11/11/18 04:24 Not Reportable 11/11/18 04:24 Not Reportable 11/11/18 04:24 Not Reportable 11/11/18 04:24 Consistent w auto 11/11/18 04:24 Not Reportable 11/11/18 04:24 Plt Clumps, EDTA Not Reportable 11/11/18 04:24 Not Reportable 11/11/18 04:24 Not Reportable 11/11/18 04:24 Not Reportable 11/11/18 04:24 Plt Morphology Comment Not Reportable 11/11/18 04:24 RBC Morphology Not Reportable 11/11/18 04:24 Dimorphic RBCs Not Reportable 11/11/18 04:24 Not Reportable 11/11/18 04:24 Not Reportable 11/11/18 04:24 Not Reportable 11/11/18 04:24 1+ 11/11/18 04:24 Not Reportable 11/11/18 04:24 Not Reportable 11/11/18 04:24 Not Reportable 11/11/18 04:24 Not Reportable 11/11/18 04:24 Not Reportable 11/11/18 04:24 Not Reportable 11/11/18 04:24 Not Reportable 11/11/18 04:24 Not Reportable 11/11/18 04:24 Not Reportable 11/11/18 04:24 Not Reportable 11/11/18 04:24 Not Reportable 11/11/18 04:24 Not Reportable 11/11/18 04:24 Not Reportable 11/11/18 04:24 Not Reportable 11/11/18 04:24 Not Reportable 11/11/18 04:24 Acanthocytes (Spur) Not Reportable 11/11/18 04:24 Rouleaux Not Reportable 11/11/18 04:24 Not Reportable 11/11/18 04:24 Not Reportable 11/11/18 04:24 Not Reportable 11/11/18 04:24 Not Reportable 11/11/18 04:24 Hem Pathologist Commnt No 11/11/18 04:24 Heparin Anti-Xa, Unfract Negative (Negative) 11/08/18 21:59 POC ABG pH 7.418 (7.35-7.45) 11/11/18 05:31 POC ABG pCO2 48.8 (35-45) H 11/11/18 05:31 POC ABG pO2 109 (80-105) H 11/11/18 05:31 POC ABG HCO3 31.5 (22-26 mml/L) 11/11/18 05:31 POC ABG Total CO2 33 (23-27mmol/L) 11/11/18 05:31 POC ABG O2 Sat 98 11/11/18 05:31 POC ABG Base Excess 7 ((-2) - (+3)mmol/L) 11/11/18 05:31 VBG pH 6.982 (7.320-7.420) L* 11/06/18 13:22 25 % 11/11/18 05:31 Sodium 142 mmol/L (137-145) 11/12/18 04:44 Potassium 4.3 mmol/L (3.6-5.0) 11/12/18 04:44 Chloride 100.0 mmol/L (98-107) 11/12/18 04:44 Carbon Dioxide 27 mmol/L (22-30) 11/12/18 04:44 19 mmol/L 11/12/18 04:44 BUN 22 mg/dL (9-20) H 11/12/18 04:44 5.0 mg/dL (0.8-1.5) H 11/12/18 04:44 Estimated GFR 16 ml/min 11/12/18 04:44 4 % 11/12/18 04:44 Glucose 288 mg/dL (75-100) H 11/12/18 04:44 POC Glucose 437 (70-105) H 11/12/18 12:28 Lactic Acid 2.70 mmol/L (0.7-2.0) H* 11/08/18 08:00 Calcium 9.3 mg/dL (8.4-10.2) D 11/12/18 04:44 Phosphorus 3.50 mg/dL (2.5-4.5) 11/12/18 04:44 Magnesium 2.00 mg/dL (1.7-2.3) 11/12/18 04:44 0.20 mg/dL (0.1-1.2) 11/12/18 04:44 0.3 mg/dL (0-0.2) H 11/08/18 08:00 0.3 mg/dL 11/08/18 08:00 AST 88 units/L (5-40) H 11/12/18 04:44 ALT 187 units/L (7-56) H 11/12/18 04:44 124 units/L (35-129) 11/12/18 04:44 58 units/L (55-170) 11/06/18 09:02 0.027 ng/mL (0.00-0.029) 11/06/18 09:02 1.90 mg/dL (0.00-1.30) H 11/06/18 19:30 6.5 g/dL (6.3-8.2) 11/12/18 04:44 2.9 g/dL (3.9-5) L 11/12/18 04:44 0.8 % 11/12/18 04:44 Straw (Yellow) 11/06/18 10:38 Clear (Clear) 11/06/18 10:38 5.0 (5.0-7.0) 11/06/18 10:38 Ur Specific [place] 1.014 (1.003-1.030) 11/06/18 10:38 100 mg/dl mg/dL (Negative) 11/06/18 10:38 >=500 mg/dL (Negative) 11/06/18 10:38 20 mg/dL (Negative) 11/06/18 10:38 Sm (Negative) 11/06/18 10:38 Neg (Negative) 11/06/18 10:38 Neg (Negative) 11/06/18 10:38 < 2.0 mg/dL (<2.0) 11/06/18 10:38 Ur Leukocyte Esterase Neg (Negative) 11/06/18 10:38 < 1.0 /HPF (0.0-6.0) 11/06/18 10:38 2.0 /HPF (0.0-6.0) 11/06/18 10:38 U Epithel Cells (Auto) < 1.0 /HPF (0-13.0) 11/06/18 10:38 Random Vancomycin 13.2 ug/mL (0-40.0) 11/08/18 04:23 Salicylates < 0.3 mg/dL (2.8-20.0) L 11/06/18 09:02 Presumptive negative 11/06/18 10:38 Presumptive negative 11/06/18 10:38 Acetaminophen < 5.0 ug/mL (10.0-30.0) L 11/06/18 09:02 Ur Barbiturates Screen Presumptive negative 11/06/18 10:38 Ur Phencyclidine Scrn Presumptive negative 11/06/18 10:38 Ur Amphetamines Screen Presumptive negative 11/06/18 10:38 U Benzodiazepines Scrn Presumptive negative 11/06/18 10:38 Presumptive negative 11/06/18 10:38 U Marijuana (THC) Screen Presumptive positive 11/06/18 10:38 Disclamer 11/06/18 10:38 Plasma/Serum Alcohol < 0.01 % (0-0.07) 11/06/18 09:02 Heparin-induced Plt Ab Positive (Negative) H 11/08/18 21:59 UF Heparin High Dose 0 % Release 11/08/18 21:59 DEBORA UFH Low Dose 0.1 0 % Release 11/08/18 21:59 DEBORA UFH Low Dose 0.5 0 % Release 11/08/18 21:59 Hepatitis A IgM Ab Non-reactive (NonReactive) 11/07/18 13:20 Hep Bs Antigen Non-reactive (Negative) 11/07/18 13:20 Hep B Core IgM Ab Non-reactive (NonReactive) 11/07/18 13:20 Non-reactive (NonReactive) 11/07/18 13:20 Blood Type A POSITIVE 11/06/18 14:15 Antibody Screen Not Reportable 11/06/18 14:15 JANIS Antibody Screen Negative 11/06/18 14:15 Active Medications - Current Medications Current Medications: Generic Name Dose Route Start Last Admin Trade Name Freq PRN Reason Stop Dose Admin Acetaminophen 650 mg 11/06/18 22:22 11/11/18 07:33 Tylenol FEEDTUBE 650 mg Q6H PRN Administration Fever >101 Lipase/Protease/Amylase 1 each 11/08/18 18:38 Pancreaze 10,500 Unit FEEDTUBE PRN PRN For Clogged Feeding Tube Baclofen 5 mg 11/10/18 14:00 11/12/18 14:09 Lioresal PO 5 mg TID MARIAJOSE Administration Chlorpromazine HCl 10 mg 11/07/18 08:07 11/10/18 05:36 Thorazine PO 10 mg Q6H PRN Administration Hiccups Clonazepam 0.5 mg 11/12/18 16:49 Klonopin PO Q12H PRN myoclonic jerks Dextrose 50 ml 11/07/18 16:46 11/10/18 23:43 D50w (25gm) Syringe IV 50 ml PRN PRN Administration Hypoglycemia Fentanyl 50 mcg 11/06/18 08:37 Sublimaze IV Q10MIN PRN ANALGESIA Hydralazine HCl 10 mg 11/08/18 00:56 11/12/18 11:38 Apresoline IV 10 mg Q4H PRN Administration Hypertension Hydralazine HCl 25 mg 11/12/18 09:00 11/12/18 14:30 Apresoline PO 25 mg Q8HR MARIAJOSE Administration Hydrophilic Ointment 1 applic 11/06/18 08:26 11/10/18 19:52 Vaseline Lip Therapy TP 1 applic Q2HR PRN Administration Dry Lips Fentanyl Citrate 2,000 mcg in 100 mls @ 4.309 mls/hr 11/06/18 10:00 11/12/18 11:30 Fentanyl Drip Premix IV 1 mcg/kg/hr TITR MARIAJOSE 4.309 mls/hr Titration Protocol 1 MCG/KG/HR Sodium Chloride 100 mls @ 999 mls/hr 11/10/18 11:26 Nacl 0.9% IV MARY PRN Hypotension Nicardipine HCl 50 mg/ Sodium 250 mls @ 25 mls/hr 11/12/18 13:00 Chloride IV TITR MARIAJOSE Protocol 5 MG/HR Levetiracetam 750 mg/ Dextrose 107.5 mls @ 400 mls/hr 11/12/18 22:00 IV Q12HR MARIAJOSE Insulin Human Isoph/Insulin Regular 28 unit 11/12/18 17:00 11/12/18 16:25 Humulin 70/30 SUB-Q 28 unit BIDDIAB MARIAJOSE Administration Insulin Human Regular 0 units 11/07/18 18:00 11/12/18 12:32 Humulin R SUB-Q Not Given Q6HR [facility] Protocol Lansoprazole 30 mg 11/09/18 10:00 11/12/18 09:49 Prevacid Solutab FEEDTUBE 30 mg BID MARIAJOSE Administration Lorazepam 2 mg 11/12/18 08:31 11/12/18 12:35 Ativan IV 2 mg Q4H PRN Administration Agitation Metoprolol Tartrate 50 mg 11/12/18 11:00 11/12/18 11:39 Lopressor PO 50 mg BID MARIAJOSE Administration Modafinil 100 mg 11/11/18 10:00 11/12/18 09:50 Provigil PO 100 mg QAM MARIAJOSE Administration Multi-Ingred Cream/Lotion/Oil/Oint 1 applic 11/06/18 08:26 Artificial Tears Ophth Oint OU Q4HR PRN Dry Eye(s) Simple Syrup 15 ml 11/08/18 18:38 Simple Syrup FEEDTUBE PRN PRN Hypoglycemia Simple Syrup 30 ml 11/08/18 18:38 Simple Syrup FEEDTUBE PRN PRN Hypoglycemia Sodium Bicarbonate 325 mg 11/08/18 18:38 Sodium Bicarbonate FEEDTUBE PRN PRN For Clogged Feeding Tube Sodium Chloride 10 ml 11/06/18 22:00 11/12/18 09:50 Sodium Chloride Flush Syringe 10 Ml IV 10 ml BID MARIAJOSE Administration Sodium Chloride 10 ml 11/06/18 12:42 Sodium Chloride Flush Syringe 10 Ml IV PRN PRN LINE FLUSH Tamsulosin HCl 0.4 mg 11/10/18 13:00 11/12/18 09:49 Flomax PO 0.4 mg QDAY MARIAJOSE Administration Nutrition/Malnutrition Assess - Dietary Evaluation Nutrition/Malnutrition Findings: Nutrition Notes Start: 11/07/18 14:40 Freq: Status: Active Protocol: Document 11/11/18 14:40 RM (Rec: 11/11/18 14:53 RM [id number]) Nutrition Notes Initial or Follow up Reassessment Current Diagnosis CKD (stage V CKD),Diabetes Other Pertinent Diagnosis on HD, PAD, Anoxic brain injury, Cardiopulmonary arrest , AMS Current Diet Glucerna 1.2 at 75 ml/hr Labs/Tests Na 142 Pertinent Medications Reviewed Height 6 ft 2 in Weight 108.8 kg [place] Body Weight (kg) 86.36 BMI 30.8 Subjective/Other Information Observed Gucerna 1.2 infusing at goal rate. Percent of energy/protein needs met: 99%/100% Burn Absent Trauma Absent #1 Nutrition Diagnosis Inadequate oral intake Diagnosis Progress(for reassessment Continues documentation) Is patient on ventilator? Yes Is Patient Ambulatory and/or Out of Bed No REE-([facility]-confined to bed) 2477.928 Kcal/Kg value to use for calculation 20 Approximate Energy Requirements Using 2176 kcal/Kg Calculation Used for Recommendations Kcal/kg Additional Notes Protein Needs: 103-172g (1.2- 2g/kg) Fluid Needs: 1 ml/kcal Nutrition Intervention Nutrition Support: Glucerna 1.2 at 75ml/hr 100ml q4h Kcal 2,160 Protein (gm) 108 Fluid (mL) 1,449 Goal #1 Continue to meet at least 80% of kcal and protein needs Anticipated Discharge Needs: Unable to determine at this time Follow-Up By: 11/20/18 Additional Comments Follow for TF tolerance
--- NOTE | 2018-11-12 17:27 | Progress Note ---
Assessment and Plan This is a this is Dr. Ally Jacinto dictating the progress note on. Patient continues to be verbally unresponsive. Nurse reported that patient developed episodic jerking movement more frequent in the morning. Jerking ALL 4 extremities. Mother was at the bedside she reported that patient had sustained contraction of all 4 extremities happened a few times. Currently his gait. Keppra 500 mg by mouth twice a day. Had EEG which did not show any seizure activity. Patient had increased blood pressure, for which fentanyl has been started again. Physical examination. Verbally unresponsive has spontaneous blinking. Extraocular movement is intact movement of extremities. Generalized hypermobility of reflex you with no response to plantar stimulation.. Impression : #1. Hypoxic brain injury with probable recurrence of seizures i.e. Tonic seizure #2. Frequent intermittent Myoclonic jerks Recommendation. #1 we will need to increase Keppra to 750 mg every 12 hour IV. #2. Please administer 0.5 mg clonazepam by mouth prn myoclonic jerks. Subjective Principal diagnosis: Ac hypoxemic resp failure; DKA; Severe sepsis with shock; ESRD on dialysis Objective - Vital Sign Vital Signs - 12hr 11/12/18 11/12/18 11/12/18 05:30 06:00 06:30 Temperature Pulse Rate 110 H 102 H 99 H Respiratory 20 20 20 Rate Blood Pressure 125/69 133/73 O2 Sat by Pulse 97 95 95 Oximetry 11/12/18 11/12/18 11/12/18 07:00 07:31 07:45 Temperature Pulse Rate 98 H 111 H 104 H Respiratory 20 20 Rate Blood Pressure 143/89 207/85 210/103 O2 Sat by Pulse 96 95 Oximetry 11/12/18 11/12/18 11/12/18 07:46 07:50 08:00 Temperature 99.0 F Pulse Rate 104 H 121 H Respiratory 20 Rate Blood Pressure 210/103 204/103 O2 Sat by Pulse 95 95 Oximetry 11/12/18 11/12/18 11/12/18 08:31 09:01 09:05 Temperature Pulse Rate 122 H 126 H 124 H Respiratory 19 16 Rate Blood Pressure 194/94 194/94 194/94 O2 Sat by Pulse 100 98 Oximetry 11/12/18 11/12/18 11/12/18 09:31 10:00 10:30 Temperature Pulse Rate 113 H 114 H 103 H Respiratory 20 12 13 Rate Blood Pressure 194/94 156/69 131/64 O2 Sat by Pulse 99 98 99 Oximetry 11/12/18 11/12/18 11/12/18 11:01 11:30 11:38 Temperature Pulse Rate 117 H 117 H Respiratory 18 Rate Blood Pressure 190/91 203/80 203/80 O2 Sat by Pulse 99 100 Oximetry 11/12/18 11/12/18 11/12/18 11:39 12:00 12:01 Temperature 98.9 F Pulse Rate 116 H 134 H Respiratory 24 Rate Blood Pressure 176/68 172/92 O2 Sat by Pulse 100 Oximetry 11/12/18 11/12/18 11/12/18 12:13 12:31 13:00 Temperature Pulse Rate 116 H 100 H 90 Respiratory 20 20 Rate Blood Pressure 176/68 134/69 118/64 O2 Sat by Pulse 95 100 100 Oximetry 11/12/18 11/12/18 11/12/18 13:30 14:00 14:30 Temperature Pulse Rate 87 86 90 Respiratory 20 20 20 Rate Blood Pressure 123/74 121/76 140/77 O2 Sat by Pulse 100 100 100 Oximetry 11/12/18 11/12/18 11/12/18 15:00 15:55 15:56 Temperature 99.4 F Pulse Rate 89 89 Respiratory 19 Rate Blood Pressure 147/81 147/81 O2 Sat by Pulse 100 100 Oximetry - Laboratory Findings CBC and BMP: 11/12/18 04:44 11/12/18 04:44 Abnormal Lab Findings: Abnormal Labs 11/06/18 11/06/18 11/06/18 08:22 09:02 09:02 WBC 20.1 H RBC 3.40 L Hgb 10.5 L Hct MCV 119 H MCHC 26 L RDW 15.7 H Plt Count Lymph % (Auto) Spink % (Auto) Lymph # Spink # Seg Neutrophils % 80.1 H Seg Neuts % (Manual) 76.0 H Lymphocytes % (Manual) 4.0 L Monocytes % (Manual) Nucleated RBC % 1.0 H Seg Neutrophils # 16.1 H Seg Neutrophils # Man 15.3 H Lymphocytes # (Manual) 0.8 L Monocytes # (Manual) POC ABG pH POC ABG pCO2 POC ABG pO2 VBG pH Sodium 129 L Potassium 7.7 H* Chloride 79.7 L Carbon Dioxide 4 L* BUN 93 H Creatinine 7.4 H Glucose 1469 H* POC Glucose > 500 H Lactic Acid Calcium Phosphorus Magnesium Direct Bilirubin AST 2679 H ALT 1175 H C-Reactive Protein Total Protein 6.1 L Albumin 2.9 L Salicylates Acetaminophen Heparin-induced Plt Ab 11/06/18 11/06/18 11/06/18 09:02 09:02 09:02 WBC RBC Hgb Hct MCV MCHC RDW Plt Count Lymph % (Auto) Spink % (Auto) Lymph # Spink # Seg Neutrophils % Seg Neuts % (Manual) Lymphocytes % (Manual) Monocytes % (Manual) Nucleated RBC % Seg Neutrophils # Seg Neutrophils # Man Lymphocytes # (Manual) Monocytes # (Manual) POC ABG pH POC ABG pCO2 POC ABG pO2 VBG pH Sodium Potassium Chloride Carbon Dioxide BUN Creatinine Glucose POC Glucose Lactic Acid 9.40 H* Calcium Phosphorus Magnesium Direct Bilirubin AST ALT C-Reactive Protein Total Protein Albumin Salicylates < 0.3 L Acetaminophen < 5.0 L Heparin-induced Plt Ab 11/06/18 11/06/18 11/06/18 09:03 10:19 10:19 WBC RBC Hgb Hct MCV MCHC RDW Plt Count Lymph % (Auto) Spink % (Auto) Lymph # Spink # Seg Neutrophils % Seg Neuts % (Manual) Lymphocytes % (Manual) Monocytes % (Manual) Nucleated RBC % Seg Neutrophils # Seg Neutrophils # Man Lymphocytes # (Manual) Monocytes # (Manual) POC ABG pH 6.841 L POC ABG pCO2 POC ABG pO2 VBG pH Sodium 131 L Potassium 8.9 H* Chloride 85.3 L Carbon Dioxide 6 L* BUN 90 H Creatinine 7.1 H Glucose 1353 H* POC Glucose Lactic Acid Calcium 7.8 L Phosphorus 14.50 H Magnesium 2.70 H Direct Bilirubin AST ALT C-Reactive Protein Total Protein Albumin Salicylates Acetaminophen Heparin-induced Plt Ab 11/06/18 11/06/18 11/06/18 12:07 13:22 13:22 WBC RBC Hgb Hct MCV MCHC RDW Plt Count Lymph % (Auto) Spink % (Auto) Lymph # Spink # Seg Neutrophils % Seg Neuts % (Manual) Lymphocytes % (Manual) Monocytes % (Manual) Nucleated RBC % Seg Neutrophils # Seg Neutrophils # Man Lymphocytes # (Manual) Monocytes # (Manual) POC ABG pH POC ABG pCO2 POC ABG pO2 VBG pH 6.982 L* Sodium 135 L Potassium 7.0 H* D Chloride 88.4 L Carbon Dioxide 5 L* BUN 89 H Creatinine 7.2 H Glucose 1326 H* POC Glucose Lactic Acid 8.50 H* Calcium Phosphorus Magnesium Direct Bilirubin AST ALT C-Reactive Protein Total Protein Albumin Salicylates Acetaminophen Heparin-induced Plt Ab 11/06/18 11/06/18 11/06/18 14:15 14:15 15:21 WBC RBC Hgb Hct MCV MCHC RDW Plt Count Lymph % (Auto) Spink % (Auto) Lymph # Spink # Seg Neutrophils % Seg Neuts % (Manual) Lymphocytes % (Manual) Monocytes % (Manual) Nucleated RBC % Seg Neutrophils # Seg Neutrophils # Man Lymphocytes # (Manual) Monocytes # (Manual) POC ABG pH POC ABG pCO2 POC ABG pO2 VBG pH Sodium Potassium 6.6 H* 6.0 H Chloride 95.3 L 93.3 L Carbon Dioxide 4 L* 6 L* BUN 83 H 91 H Creatinine 6.9 H 7.3 H Glucose 1205 H* 1174 H* POC Glucose Lactic Acid Calcium 8.2 L Phosphorus 13.00 H Magnesium 2.60 H Direct Bilirubin AST ALT C-Reactive Protein Total Protein Albumin Salicylates Acetaminophen Heparin-induced Plt Ab 11/06/18 11/06/18 11/06/18 15:21 16:14 16:33 WBC RBC Hgb Hct MCV MCHC RDW Plt Count Lymph % (Auto) Spink % (Auto) Lymph # Spink # Seg Neutrophils % Seg Neuts % (Manual) Lymphocytes % (Manual) Monocytes % (Manual) Nucleated RBC % Seg Neutrophils # Seg Neutrophils # Man Lymphocytes # (Manual) Monocytes # (Manual) POC ABG pH 7.004 L POC ABG pCO2 33.0 L POC ABG pO2 178 H VBG pH Sodium Potassium Chloride Carbon Dioxide BUN Creatinine Glucose POC Glucose > 500 H Lactic Acid 7.60 H* Calcium Phosphorus Magnesium Direct Bilirubin AST ALT C-Reactive Protein Total Protein Albumin Salicylates Acetaminophen Heparin-induced Plt Ab 11/06/18 11/06/18 11/06/18 17:34 19:30 19:30 WBC RBC Hgb Hct MCV MCHC RDW Plt Count Lymph % (Auto) Spink % (Auto) Lymph # Spink # Seg Neutrophils % Seg Neuts % (Manual) Lymphocytes % (Manual) Monocytes % (Manual) Nucleated RBC % Seg Neutrophils # Seg Neutrophils # Man Lymphocytes # (Manual) Monocytes # (Manual) POC ABG pH POC ABG pCO2 POC ABG pO2 VBG pH Sodium Potassium 5.5 H Chloride 97.4 L 97.7 L Carbon Dioxide 10 L 11 L BUN 88 H 87 H Creatinine 7.5 H 7.6 H Glucose 1054 H* 954 H* POC Glucose Lactic Acid Calcium 7.7 L 7.4 L Phosphorus Magnesium Direct Bilirubin AST ALT C-Reactive Protein 1.90 H Total Protein Albumin Salicylates Acetaminophen Heparin-induced Plt Ab 11/06/18 11/06/18 11/06/18 20:31 20:40 20:40 WBC RBC Hgb Hct MCV MCHC RDW Plt Count Lymph % (Auto) Spink % (Auto) Lymph # Spink # Seg Neutrophils % Seg Neuts % (Manual) Lymphocytes % (Manual) Monocytes % (Manual) Nucleated RBC % Seg Neutrophils # Seg Neutrophils # Man Lymphocytes # (Manual) Monocytes # (Manual) POC ABG pH 7.245 L POC ABG pCO2 POC ABG pO2 132 H VBG pH Sodium Potassium Chloride Carbon Dioxide BUN Creatinine Glucose 907 H* POC Glucose Lactic Acid 4.40 H* Calcium Phosphorus Magnesium Direct Bilirubin AST ALT C-Reactive Protein Total Protein Albumin Salicylates Acetaminophen Heparin-induced Plt Ab 11/06/18 11/06/18 11/06/18 22:05 22:40 23:35 WBC RBC Hgb Hct MCV MCHC RDW Plt Count Lymph % (Auto) Spink % (Auto) Lymph # Spink # Seg Neutrophils % Seg Neuts % (Manual) Lymphocytes % (Manual) Monocytes % (Manual) Nucleated RBC % Seg Neutrophils # Seg Neutrophils # Man Lymphocytes # (Manual) Monocytes # (Manual) POC ABG pH POC ABG pCO2 POC ABG pO2 VBG pH Sodium Potassium Chloride Carbon Dioxide 13 L BUN 86 H Creatinine 7.8 H Glucose 822 H* 726 H* POC Glucose Lactic Acid 3.40 H* Calcium 7.5 L Phosphorus Magnesium Direct Bilirubin AST ALT C-Reactive Protein Total Protein Albumin Salicylates Acetaminophen Heparin-induced Plt Ab 11/07/18 11/07/18 11/07/18 01:25 01:26 03:15 WBC RBC Hgb Hct MCV MCHC RDW Plt Count Lymph % (Auto) Spink % (Auto) Lymph # Spink # Seg Neutrophils % Seg Neuts % (Manual) Lymphocytes % (Manual) Monocytes % (Manual) Nucleated RBC % Seg Neutrophils # Seg Neutrophils # Man Lymphocytes # (Manual) Monocytes # (Manual) POC ABG pH POC ABG pCO2 POC ABG pO2 VBG pH Sodium Potassium Chloride Carbon Dioxide BUN Creatinine Glucose 602 H* POC Glucose > 500 H > 500 H Lactic Acid Calcium Phosphorus Magnesium Direct Bilirubin AST ALT C-Reactive Protein Total Protein Albumin Salicylates Acetaminophen Heparin-induced Plt Ab 11/07/18 11/07/18 11/07/18 03:20 04:32 04:47 WBC RBC Hgb Hct MCV MCHC RDW Plt Count Lymph % (Auto) Spink % (Auto) Lymph # Spink # Seg Neutrophils % Seg Neuts % (Manual) Lymphocytes % (Manual) Monocytes % (Manual) Nucleated RBC % Seg Neutrophils # Seg Neutrophils # Man Lymphocytes # (Manual) Monocytes # (Manual) POC ABG pH POC ABG pCO2 30.3 L POC ABG pO2 153 H VBG pH Sodium 149 H Potassium Chloride Carbon Dioxide 16 L BUN 86 H Creatinine 8.3 H Glucose 499.2 H POC Glucose 360 H Lactic Acid Calcium 7.6 L Phosphorus Magnesium Direct Bilirubin AST ALT C-Reactive Protein Total Protein Albumin Salicylates Acetaminophen Heparin-induced Plt Ab 11/07/18 11/07/18 11/07/18 05:26 06:35 06:36 WBC RBC Hgb Hct MCV MCHC RDW Plt Count Lymph % (Auto) Spink % (Auto) Lymph # Spink # Seg Neutrophils % Seg Neuts % (Manual) Lymphocytes % (Manual) Monocytes % (Manual) Nucleated RBC % Seg Neutrophils # Seg Neutrophils # Man Lymphocytes # (Manual) Monocytes # (Manual) POC ABG pH POC ABG pCO2 POC ABG pO2 VBG pH Sodium 153 H Potassium 3.2 L Chloride 109.7 H Carbon Dioxide BUN 84 H Creatinine 8.6 H Glucose 249 H POC Glucose 341 H 274 H Lactic Acid Calcium 7.6 L Phosphorus Magnesium Direct Bilirubin AST ALT C-Reactive Protein Total Protein Albumin Salicylates Acetaminophen Heparin-induced Plt Ab 11/07/18 11/07/18 11/07/18 07:33 09:00 09:52 WBC RBC Hgb Hct MCV MCHC RDW Plt Count Lymph % (Auto) Spink % (Auto) Lymph # Spink # Seg Neutrophils % Seg Neuts % (Manual) Lymphocytes % (Manual) Monocytes % (Manual) Nucleated RBC % Seg Neutrophils # Seg Neutrophils # Man Lymphocytes # (Manual) Monocytes # (Manual) POC ABG pH POC ABG pCO2 POC ABG pO2 VBG pH Sodium Potassium Chloride Carbon Dioxide BUN Creatinine Glucose POC Glucose 243 H 182 H 227 H Lactic Acid Calcium Phosphorus Magnesium Direct Bilirubin AST ALT C-Reactive Protein Total Protein Albumin Salicylates Acetaminophen Heparin-induced Plt Ab 11/07/18 11/07/18 11/07/18 10:50 10:50 10:50 WBC 11.3 H RBC 2.85 L Hgb 8.7 L Hct 25.3 L D MCV MCHC RDW Plt Count Lymph % (Auto) 9.7 L Spink % (Auto) Lymph # 1.1 L Spink # Seg Neutrophils % 83.3 H Seg Neuts % (Manual) Lymphocytes % (Manual) Monocytes % (Manual) Nucleated RBC % Seg Neutrophils # 9.4 H Seg Neutrophils # Man Lymphocytes # (Manual) Monocytes # (Manual) POC ABG pH POC ABG pCO2 POC ABG pO2 VBG pH Sodium 154 H Potassium 3.2 L Chloride 110.2 H Carbon Dioxide BUN 82 H Creatinine 8.3 H Glucose 186 H POC Glucose 200 H Lactic Acid Calcium 7.3 L Phosphorus Magnesium Direct Bilirubin AST ALT C-Reactive Protein Total Protein Albumin Salicylates Acetaminophen Heparin-induced Plt Ab 11/07/18 11/07/18 11/07/18 12:00 12:05 13:13 WBC RBC Hgb Hct MCV MCHC RDW Plt Count Lymph % (Auto) Spink % (Auto) Lymph # Spink # Seg Neutrophils % Seg Neuts % (Manual) Lymphocytes % (Manual) Monocytes % (Manual) Nucleated RBC % Seg Neutrophils # Seg Neutrophils # Man Lymphocytes # (Manual) Monocytes # (Manual) POC ABG pH POC ABG pCO2 POC ABG pO2 VBG pH Sodium Potassium Chloride Carbon Dioxide BUN Creatinine Glucose POC Glucose 179 H 190 H Lactic Acid 2.50 H* Calcium Phosphorus Magnesium Direct Bilirubin AST ALT C-Reactive Protein Total Protein Albumin Salicylates Acetaminophen Heparin-induced Plt Ab 11/07/18 11/07/18 11/07/18 13:20 14:05 15:18 WBC RBC Hgb Hct MCV MCHC RDW Plt Count Lymph % (Auto) Spink % (Auto) Lymph # Spink # Seg Neutrophils % Seg Neuts % (Manual) Lymphocytes % (Manual) Monocytes % (Manual) Nucleated RBC % Seg Neutrophils # Seg Neutrophils # Man Lymphocytes # (Manual) Monocytes # (Manual) POC ABG pH POC ABG pCO2 POC ABG pO2 VBG pH Sodium Potassium 3.1 L Chloride Carbon Dioxide BUN 50 H Creatinine 5.0 H Glucose 176 H POC Glucose 189 H 215 H Lactic Acid Calcium 7.4 L Phosphorus Magnesium Direct Bilirubin AST ALT C-Reactive Protein Total Protein Albumin Salicylates Acetaminophen Heparin-induced Plt Ab 11/07/18 11/07/18 11/07/18 16:25 17:37 23:23 WBC RBC Hgb Hct MCV MCHC RDW Plt Count Lymph % (Auto) Spink % (Auto) Lymph # Spink # Seg Neutrophils % Seg Neuts % (Manual) Lymphocytes % (Manual) Monocytes % (Manual) Nucleated RBC % Seg Neutrophils # Seg Neutrophils # Man Lymphocytes # (Manual) Monocytes # (Manual) POC ABG pH POC ABG pCO2 POC ABG pO2 VBG pH Sodium Potassium Chloride Carbon Dioxide BUN Creatinine Glucose POC Glucose 180 H 215 H 234 H Lactic Acid Calcium Phosphorus Magnesium Direct Bilirubin AST ALT C-Reactive Protein Total Protein Albumin Salicylates Acetaminophen Heparin-induced Plt Ab 11/08/18 11/08/18 11/08/18 04:17 04:23 04:23 WBC RBC 2.98 L Hgb 9.3 L Hct 26.7 L MCV MCHC 35 H RDW Plt Count 130 L Lymph % (Auto) Spink % (Auto) Lymph # Spink # Seg Neutrophils % 80.3 H Seg Neuts % (Manual) Lymphocytes % (Manual) Monocytes % (Manual) Nucleated RBC % Seg Neutrophils # 7.8 H Seg Neutrophils # Man Lymphocytes # (Manual) Monocytes # (Manual) POC ABG pH 7.520 H POC ABG pCO2 POC ABG pO2 111 H VBG pH Sodium Potassium 3.0 L Chloride Carbon Dioxide BUN 44 H Creatinine 6.3 H Glucose 245 H POC Glucose Lactic Acid Calcium 7.3 L Phosphorus Magnesium Direct Bilirubin AST ALT C-Reactive Protein Total Protein Albumin Salicylates Acetaminophen Heparin-induced Plt Ab 11/08/18 11/08/18 11/08/18 05:19 08:00 08:00 WBC RBC Hgb Hct MCV MCHC RDW Plt Count Lymph % (Auto) Spink % (Auto) Lymph # Spink # Seg Neutrophils % Seg Neuts % (Manual) Lymphocytes % (Manual) Monocytes % (Manual) Nucleated RBC % Seg Neutrophils # Seg Neutrophils # Man Lymphocytes # (Manual) Monocytes # (Manual) POC ABG pH POC ABG pCO2 POC ABG pO2 VBG pH Sodium Potassium Chloride Carbon Dioxide BUN Creatinine Glucose POC Glucose 253 H Lactic Acid 2.70 H* Calcium Phosphorus Magnesium Direct Bilirubin 0.3 H AST 932 H ALT 582 H C-Reactive Protein Total Protein 5.4 L Albumin 2.6 L Salicylates Acetaminophen Heparin-induced Plt Ab 11/08/18 11/08/18 11/08/18 11:36 17:51 21:59 WBC RBC Hgb Hct MCV MCHC RDW Plt Count Lymph % (Auto) Spink % (Auto) Lymph # Spink # Seg Neutrophils % Seg Neuts % (Manual) Lymphocytes % (Manual) Monocytes % (Manual) Nucleated RBC % Seg Neutrophils # Seg Neutrophils # Man Lymphocytes # (Manual) Monocytes # (Manual) POC ABG pH 7.459 H POC ABG pCO2 POC ABG pO2 108 H VBG pH Sodium Potassium Chloride Carbon Dioxide BUN Creatinine Glucose POC Glucose 197 H Lactic Acid Calcium Phosphorus Magnesium Direct Bilirubin AST ALT C-Reactive Protein Total Protein Albumin Salicylates Acetaminophen Heparin-induced Plt Ab Positive H 11/08/18 11/09/18 11/09/18 23:28 00:39 02:20 WBC RBC Hgb Hct MCV MCHC RDW Plt Count Lymph % (Auto) Spink % (Auto) Lymph # Spink # Seg Neutrophils % Seg Neuts % (Manual) Lymphocytes % (Manual) Monocytes % (Manual) Nucleated RBC % Seg Neutrophils # Seg Neutrophils # Man Lymphocytes # (Manual) Monocytes # (Manual) POC ABG pH POC ABG pCO2 POC ABG pO2 VBG pH Sodium Potassium Chloride Carbon Dioxide BUN Creatinine Glucose POC Glucose 418 H 471 H 254 H Lactic Acid Calcium Phosphorus Magnesium Direct Bilirubin AST ALT C-Reactive Protein Total Protein Albumin Salicylates Acetaminophen Heparin-induced Plt Ab 11/09/18 11/09/18 11/09/18 03:48 06:02 06:02 WBC RBC 2.95 L Hgb 9.2 L Hct 26.7 L MCV MCHC RDW Plt Count 101 L Lymph % (Auto) Spink % (Auto) Lymph # Spink # Seg Neutrophils % Seg Neuts % (Manual) Lymphocytes % (Manual) Monocytes % (Manual) Nucleated RBC % Seg Neutrophils # Seg Neutrophils # Man Lymphocytes # (Manual) Monocytes # (Manual) POC ABG pH POC ABG pCO2 POC ABG pO2 108 H VBG pH Sodium 150 H Potassium Chloride 108.3 H Carbon Dioxide BUN 44 H Creatinine 7.7 H Glucose 102 H POC Glucose Lactic Acid Calcium 7.2 L Phosphorus Magnesium Direct Bilirubin AST 554 H ALT 461 H C-Reactive Protein Total Protein 5.1 L Albumin 2.6 L Salicylates Acetaminophen Heparin-induced Plt Ab 11/09/18 11/09/18 11/09/18 17:49 18:49 23:32 WBC RBC Hgb Hct MCV MCHC RDW Plt Count Lymph % (Auto) Spink % (Auto) Lymph # Spink # Seg Neutrophils % Seg Neuts % (Manual) Lymphocytes % (Manual) Monocytes % (Manual) Nucleated RBC % Seg Neutrophils # Seg Neutrophils # Man Lymphocytes # (Manual) Monocytes # (Manual) POC ABG pH POC ABG pCO2 46.2 H POC ABG pO2 VBG pH Sodium Potassium Chloride Carbon Dioxide BUN Creatinine Glucose POC Glucose 184 H 150 H Lactic Acid Calcium Phosphorus Magnesium Direct Bilirubin AST ALT C-Reactive Protein Total Protein Albumin Salicylates Acetaminophen Heparin-induced Plt Ab 11/10/18 11/10/18 11/10/18 05:00 05:00 05:16 WBC RBC 2.95 L Hgb 8.9 L Hct 26.6 L MCV MCHC RDW Plt Count 100 L Lymph % (Auto) Spink % (Auto) Lymph # Spink # Seg Neutrophils % Seg Neuts % (Manual) Lymphocytes % (Manual) Monocytes % (Manual) 8.0 H Nucleated RBC % Seg Neutrophils # Seg Neutrophils # Man Lymphocytes # (Manual) Monocytes # (Manual) POC ABG pH POC ABG pCO2 POC ABG pO2 VBG pH Sodium Potassium Chloride Carbon Dioxide BUN 33 H Creatinine 6.8 H Glucose 251 H POC Glucose 242 H Lactic Acid Calcium 7.3 L Phosphorus Magnesium Direct Bilirubin AST ALT C-Reactive Protein Total Protein Albumin Salicylates Acetaminophen Heparin-induced Plt Ab 11/10/18 11/10/18 11/10/18 11:47 17:32 23:39 WBC RBC Hgb Hct MCV MCHC RDW Plt Count Lymph % (Auto) Spink % (Auto) Lymph # Spink # Seg Neutrophils % Seg Neuts % (Manual) Lymphocytes % (Manual) Monocytes % (Manual) Nucleated RBC % Seg Neutrophils # Seg Neutrophils # Man Lymphocytes # (Manual) Monocytes # (Manual) POC ABG pH POC ABG pCO2 POC ABG pO2 VBG pH Sodium Potassium Chloride Carbon Dioxide BUN Creatinine Glucose POC Glucose 261 H 194 H 60 L Lactic Acid Calcium Phosphorus Magnesium Direct Bilirubin AST ALT C-Reactive Protein Total Protein Albumin Salicylates Acetaminophen Heparin-induced Plt Ab 11/11/18 11/11/18 11/11/18 00:26 04:24 04:24 WBC RBC 2.98 L Hgb 9.1 L Hct 27.4 L MCV MCHC RDW Plt Count 114 L Lymph % (Auto) Spink % (Auto) Lymph # Spink # Seg Neutrophils % Seg Neuts % (Manual) Lymphocytes % (Manual) Monocytes % (Manual) 10.0 H Nucleated RBC % Seg Neutrophils # Seg Neutrophils # Man Lymphocytes # (Manual) Monocytes # (Manual) 1.0 H POC ABG pH POC ABG pCO2 POC ABG pO2 VBG pH Sodium Potassium Chloride Carbon Dioxide BUN 23 H Creatinine 5.5 H Glucose 147 H POC Glucose 124 H Lactic Acid Calcium 7.9 L Phosphorus Magnesium Direct Bilirubin AST 152 H ALT 247 H C-Reactive Protein Total Protein Albumin 2.3 L Salicylates Acetaminophen Heparin-induced Plt Ab 11/11/18 11/11/18 11/11/18 05:27 05:31 12:11 WBC RBC Hgb Hct MCV MCHC RDW Plt Count Lymph % (Auto) Spink % (Auto) Lymph # Spink # Seg Neutrophils % Seg Neuts % (Manual) Lymphocytes % (Manual) Monocytes % (Manual) Nucleated RBC % Seg Neutrophils # Seg Neutrophils # Man Lymphocytes # (Manual) Monocytes # (Manual) POC ABG pH POC ABG pCO2 48.8 H POC ABG pO2 109 H VBG pH Sodium Potassium Chloride Carbon Dioxide BUN Creatinine Glucose POC Glucose 172 H 343 H Lactic Acid Calcium Phosphorus Magnesium Direct Bilirubin AST ALT C-Reactive Protein Total Protein Albumin Salicylates Acetaminophen Heparin-induced Plt Ab 11/11/18 11/11/18 11/12/18 17:12 23:41 00:11 WBC RBC Hgb Hct MCV MCHC RDW Plt Count Lymph % (Auto) Spink % (Auto) Lymph # Spink # Seg Neutrophils % Seg Neuts % (Manual) Lymphocytes % (Manual) Monocytes % (Manual) Nucleated RBC % Seg Neutrophils # Seg Neutrophils # Man Lymphocytes # (Manual) Monocytes # (Manual) POC ABG pH POC ABG pCO2 POC ABG pO2 VBG pH Sodium Potassium Chloride Carbon Dioxide BUN Creatinine Glucose POC Glucose 188 H 145 H 151 H Lactic Acid Calcium Phosphorus Magnesium Direct Bilirubin AST ALT C-Reactive Protein Total Protein Albumin Salicylates Acetaminophen Heparin-induced Plt Ab 11/12/18 11/12/18 11/12/18 04:44 04:44 11:48 WBC RBC 2.91 L Hgb 9.0 L Hct 26.9 L MCV MCHC RDW Plt Count Lymph % (Auto) 12.7 L Spink % (Auto) 14.9 H Lymph # 0.8 L Spink # 1.0 H Seg Neutrophils % 71.2 H Seg Neuts % (Manual) Lymphocytes % (Manual) Monocytes % (Manual) Nucleated RBC % Seg Neutrophils # Seg Neutrophils # Man Lymphocytes # (Manual) Monocytes # (Manual) POC ABG pH POC ABG pCO2 POC ABG pO2 VBG pH Sodium Potassium Chloride Carbon Dioxide BUN 22 H Creatinine 5.0 H Glucose 288 H POC Glucose 414 H Lactic Acid Calcium Phosphorus Magnesium Direct Bilirubin AST 88 H ALT 187 H C-Reactive Protein Total Protein Albumin 2.9 L Salicylates Acetaminophen Heparin-induced Plt Ab 11/12/18 11/12/18 12:28 17:13 WBC RBC Hgb Hct MCV MCHC RDW Plt Count Lymph % (Auto) Spink % (Auto) Lymph # Spink # Seg Neutrophils % Seg Neuts % (Manual) Lymphocytes % (Manual) Monocytes % (Manual) Nucleated RBC % Seg Neutrophils # Seg Neutrophils # Man Lymphocytes # (Manual) Monocytes # (Manual) POC ABG pH POC ABG pCO2 POC ABG pO2 VBG pH Sodium Potassium Chloride Carbon Dioxide BUN Creatinine Glucose POC Glucose 437 H 251 H Lactic Acid Calcium Phosphorus Magnesium Direct Bilirubin AST ALT C-Reactive Protein Total Protein Albumin Salicylates Acetaminophen Heparin-induced Plt Ab
[2018-11-12] MEDS: KEPPRA 750 MG in D5W 100 ML IV SCH (22:00)
[2018-11-13] MEDS: HumuLIN R SUB-Q SCH ×4 (00:40→19:32)
--- NOTE | 2018-11-13 03:21 | XRay Report ---
PROCEDURE: XR CHEST 1V AP TECHNIQUE: Chest radiograph single view. HISTORY: follow up respiratory failure COMPARISONS: 11/11/2018 . FINDINGS/ IMPRESSION: The endotracheal tube ends 10 cm above the [place]. This can be advanced approximately 7 cm for more appropriate positioning. The nasogastric tube ends at the distal esophagus approximately 3 cm from the gastroesophageal juncti on. Recommend approximately 14 cm advancement of the NG tube. The cardiomediastinal silhouette is normal. No sizable pleural effusion or pneumothorax. Lucency projecting over the left lateral chest wall soft tissues peripherally possibly skin fold. Cor relate clinically. This document is electronically signed by Evan Albarado MD., November 13 2018 03:19:33 AM ET
[2018-11-13] MEDS: fentaNYL DRIP Premix 2,000 MCG/100 ML BAG IV SCH (04:34)
[2018-11-13 05:15] LABS: Basophils % (Auto) 0.3 % (0.0-1.8); Eosinophils # (Auto) 0.1 K/mm3 (0.0-0.4); Eosinophils % (Auto) 2.2 % (0.0-4.3); Lymphocytes # (Auto) 1.2 K/mm3 (1.2-5.4); Lymphocytes % (Auto) 21.5 % (13.4-35.0); Mean Corpuscular HGB Conc 33 % (32-34); Mean Corpuscular Volume 92 fl (84-94); Monocytes # (Auto) 0.9 K/mm3 (0.0-0.8); Monocytes % (Auto) 15.8 % (0.0-7.3); Platelet Count 226 K/mm3 (140-440); Red Blood Count 2.62 M/mm3 (3.65-5.03); Red Cell Distribution Width 14.5 % (13.2-15.2)
[2018-11-13 05:37] LABS: Calcium 8.5 mg/dL (8.4-10.2)
[2018-11-13] MEDS: APRESOLINE PO SCH ×3 (06:44→21:58)
--- NOTE | 2018-11-13 07:44 | Progress Note ---
Assessment and Plan Acute hypoxemic respiratory failure, on mechanical ventilator support. Diabetic ketoacidosis. Severe metabolic acidosis. Severe sepsis with shock. Acute encephalopathy that appears to be toxic metabolic. End-stage renal disease, on dialysis. Hyperkalemia at presentation. Anemia that is macrocytic. Elevated serum transaminases, likely representing shock liver. Hypernatremia, improved Lactic acidosis. - continue daily SAT's and SBT as tolerated -adjust insulin therapy for better glycemic control. -goal blood glucose of 140-180 mg/dL - sedation target for RASS 0 to -1 - continue to wean supplemental oxygen to keep O2 sats > 90% - continue empiric AB's for now (de-escalate based on clinical and radiological data) - continue bronchodilators with pulmonary hygiene per RT - Lung protective strategies - VAP bundle addressed - continue HD/UF as tolerated for toxin and volume clearance - continue to adjust all medications for CrCL - continue enteral nutrition as tolerated - continue accuchecks with glycemic control per SSI for target glucose of 140- 180 mg/dL - Mobility protocol for pressure ulcer prevention - continue stress ulcer prophylaxis - Influenza and pneumonia vaccination per protocol For tracheostomy and PEG placement. Surgical consult has been placed PROGNOSIS: GUARDED CONDITION: CRITICAL CODE STATUS: FULL CODE The high probability of a clinically significant, sudden or life-threatening deterioration of the [respiratory, neurology, renal, endocrine] system(s) required my full and direct attention, intervention and personal management. The aggregate critical care time was [31] minutes without overlap. Time includes spent on; [x] Data Review and interpretation [x] Patient assessment and monitoring of vital signs [x] Documentation [x] Medication orders and management Discussed care extensively with his mother. Answered all her questions. Subjective Date of service: 11/13/18 Principal diagnosis: Ac hypoxemic resp failure; DKA; Severe sepsis with shock; ESRD on dialysis Interval history: Patient is seen today for: Acute hypoxemic respiratory failure on MVS; DKA; Severe metabolic acidosis; Severe sepsis with shock; Acute encephalopathy that appears to be toxic metabolic; ESRD on dialysis; DM II; Peripheral vascular disease. Seen and examined at bedside; 24hour events reviewed; nursing and respiratory care staff consulted; no adverse overnight events reported to me; remains on MVS; AMS is persistent; still with encephalopathy, appears to posture with minimal stimulation; no fevers, no vomiting Objective Vital Signs - 12hr 11/12/18 11/12/1819 19:58 20:00 20:30 Temperature 98.7 F Pulse Rate 97 H 98 H 95 H Pulse Rate [ From Monitor] Pulse Rate [ Left Dorsalis Pedis] Respiratory 20 20 Rate Blood Pressure 127/68 201/102 155/80 O2 Sat by Pulse 100 100 100 Oximetry 11/12/18 11/12/18 11/12/18 21:00 21:30 22:00 Temperature Pulse Rate 94 H 93 H 91 H Pulse Rate [ From Monitor] Pulse Rate [ Left Dorsalis Pedis] Respiratory 20 20 20 Rate Blood Pressure 125/60 136/77 148/85 O2 Sat by Pulse 100 100 100 Oximetry 11/12/18 11/12/18 11/12/18 22:30 23:00 23:18 Temperature 99.8 F H Pulse Rate 89 101 H Pulse Rate [ From Monitor] Pulse Rate [ Left Dorsalis Pedis] Respiratory 20 17 Rate Blood Pressure 145/83 145/83 O2 Sat by Pulse 100 99 Oximetry 11/12/18 11/12/18 11/13/18 23:30 23:41 00:00 Temperature Pulse Rate 99 H 94 H 82 Pulse Rate [ From Monitor] Pulse Rate [ Left Dorsalis Pedis] Respiratory 20 20 20 Rate Blood Pressure 160/88 160/88 143/80 O2 Sat by Pulse 99 99 99 Oximetry 11/13/18 11/13/18 11/13/18 00:30 00:32 01:00 Temperature Pulse Rate 85 99 H 80 Pulse Rate [ From Monitor] Pulse Rate [ Left Dorsalis Pedis] Respiratory 20 20 Rate Blood Pressure 157/88 157/88 143/77 O2 Sat by Pulse 99 100 100 Oximetry 11/13/18 11/13/18 11/13/18 01:30 02:01 02:30 Temperature Pulse Rate 81 86 92 H Pulse Rate [ From Monitor] Pulse Rate [ Left Dorsalis Pedis] Respiratory 20 20 20 Rate Blood Pressure 133/75 173/88 179/96 O2 Sat by Pulse 100 100 100 Oximetry 11/13/18 11/13/18 11/13/18 03:00 03:30 03:39 Temperature Pulse Rate 92 H 93 H 95 H Pulse Rate [ From Monitor] Pulse Rate [ Left Dorsalis Pedis] Respiratory 20 20 Rate Blood Pressure 183/99 188/96 137/67 O2 Sat by Pulse 100 99 98 Oximetry 11/13/18 11/13/18 11/13/18 04:00 04:30 05:01 Temperature 99.5 F Pulse Rate 98 H 97 H 93 H Pulse Rate [ 93 H From Monitor] Pulse Rate [ 93 H Left Dorsalis Pedis] Respiratory 20 20 20 Rate Blood Pressure 168/88 162/81 141/77 O2 Sat by Pulse 98 97 99 Oximetry 11/13/18 11/13/18 11/13/18 05:30 06:00 06:44 Temperature Pulse Rate 89 87 Pulse Rate [ From Monitor] Pulse Rate [ Left Dorsalis Pedis] Respiratory 20 20 Rate Blood Pressure 143/80 150/86 167/89 O2 Sat by Pulse 100 100 Oximetry Constitutional: no acute distress, other (middle aged AAM, normocephalic and atraumatic on MVS) Eyes: non-icteric ENT: oropharynx moist, other (ETT 25 cm FITO) Neck: supple, no lymphadenopathy, no JVD Effort: normal Ascultation: Bilateral: clear, diminished breath sounds, rhonchi Percussion: Bilateral: not dull Cardiovascular: regular rate and rhythm, other (S1,S2, no murmurs, gallops or rubs) Gastrointestinal: normoactive bowel sounds, soft, non-tender, non-distended Integumentary: rash Extremities: no cyanosis, no edema, pulses normal, no ischemia or petechiae Neurologic: pupils equal and round (minimally reactive), unable to assess, other (intermittent myoclonic type jerks) Psychiatric: other (unable to assess re: AMS) CBC and BMP: 11/18/18 04:24 11/19/18 04:24 ABG, PT/INR, D-dimer: ABG POC ABG pH 7.418 (7.35-7.45) 11/11/18 05:31 POC ABG pCO2 48.8 (35-45) H 11/11/18 05:31 POC ABG pO2 109 (80-105) H 11/11/18 05:31 POC ABG HCO3 31.5 (22-26 mml/L) 11/11/18 05:31 POC ABG Total CO2 33 (23-27mmol/L) 11/11/18 05:31 POC ABG O2 Sat 98 11/11/18 05:31 Abnormal lab findings: Abnormal Labs 05/3111/06/18 11/06/18 08:22 09:02 09:02 WBC 20.1 H RBC 3.40 L Hgb 10.5 L Hct MCV 119 H MCHC 26 L RDW 15.7 H Plt Count Lymph % (Auto) [place] % (Auto) Lymph # [place] # Seg Neutrophils % 80.1 H Seg Neuts % (Manual) 76.0 H Lymphocytes % (Manual) 4.0 L Monocytes % (Manual) Nucleated RBC % 1.0 H Seg Neutrophils # 16.1 H Seg Neutrophils # Man 15.3 H Lymphocytes # (Manual) 0.8 L Monocytes # (Manual) POC ABG pH POC ABG pCO2 POC ABG pO2 VBG pH Sodium 129 L Potassium 7.7 H* Chloride 79.7 L Carbon Dioxide 4 L* BUN 93 H Creatinine 7.4 H Glucose 1469 H* POC Glucose > 500 H Lactic Acid Calcium Phosphorus Magnesium Direct Bilirubin AST 2679 H ALT 1175 H C-Reactive Protein Total Protein 6.1 L Albumin 2.9 L Salicylates Acetaminophen Heparin-induced Plt Ab 11/06/18 11/06/18 11/06/18 09:02 09:02 09:02 WBC RBC Hgb Hct MCV MCHC RDW Plt Count Lymph % (Auto) [place] % (Auto) Lymph # [place] # Seg Neutrophils % Seg Neuts % (Manual) Lymphocytes % (Manual) Monocytes % (Manual) Nucleated RBC % Seg Neutrophils # Seg Neutrophils # Man Lymphocytes # (Manual) Monocytes # (Manual) POC ABG pH POC ABG pCO2 POC ABG pO2 VBG pH Sodium Potassium Chloride Carbon Dioxide BUN Creatinine Glucose POC Glucose Lactic Acid 9.40 H* Calcium Phosphorus Magnesium Direct Bilirubin AST ALT C-Reactive Protein Total Protein Albumin Salicylates < 0.3 L Acetaminophen < 5.0 L Heparin-induced Plt Ab 11/06/18 11/06/18 11/06/18 09:03 10:19 10:19 WBC RBC Hgb Hct MCV MCHC RDW Plt Count Lymph % (Auto) [place] % (Auto) Lymph # [place] # Seg Neutrophils % Seg Neuts % (Manual) Lymphocytes % (Manual) Monocytes % (Manual) Nucleated RBC % Seg Neutrophils # Seg Neutrophils # Man Lymphocytes # (Manual) Monocytes # (Manual) POC ABG pH 6.841 L POC ABG pCO2 POC ABG pO2 VBG pH Sodium 131 L Potassium 8.9 H* Chloride 85.3 L Carbon Dioxide 6 L* BUN 90 H Creatinine 7.1 H Glucose 1353 H* POC Glucose Lactic Acid Calcium 7.8 L Phosphorus 14.50 H Magnesium 2.70 H Direct Bilirubin AST ALT C-Reactive Protein Total Protein Albumin Salicylates Acetaminophen Heparin-induced Plt Ab 11/06/18 11/06/18 11/06/18 12:07 13:22 13:22 WBC RBC Hgb Hct MCV MCHC RDW Plt Count Lymph % (Auto) [place] % (Auto) Lymph # [place] # Seg Neutrophils % Seg Neuts % (Manual) Lymphocytes % (Manual) Monocytes % (Manual) Nucleated RBC % Seg Neutrophils # Seg Neutrophils # Man Lymphocytes # (Manual) Monocytes # (Manual) POC ABG pH POC ABG pCO2 POC ABG pO2 VBG pH 6.982 L* Sodium 135 L Potassium 7.0 H* D Chloride 88.4 L Carbon Dioxide 5 L* BUN 89 H Creatinine 7.2 H Glucose 1326 H* POC Glucose Lactic Acid 8.50 H* Calcium Phosphorus Magnesium Direct Bilirubin AST ALT C-Reactive Protein Total Protein Albumin Salicylates Acetaminophen Heparin-induced Plt Ab 11/06/18 11/06/18 11/06/18 14:15 14:15 15:21 WBC RBC Hgb Hct MCV MCHC RDW Plt Count Lymph % (Auto) [place] % (Auto) Lymph # [place] # Seg Neutrophils % Seg Neuts % (Manual) Lymphocytes % (Manual) Monocytes % (Manual) Nucleated RBC % Seg Neutrophils # Seg Neutrophils # Man Lymphocytes # (Manual) Monocytes # (Manual) POC ABG pH POC ABG pCO2 POC ABG pO2 VBG pH Sodium Potassium 6.6 H* 6.0 H Chloride 95.3 L 93.3 L Carbon Dioxide 4 L* 6 L* BUN 83 H 91 H Creatinine 6.9 H 7.3 H Glucose 1205 H* 1174 H* POC Glucose Lactic Acid Calcium 8.2 L Phosphorus 13.00 H Magnesium 2.60 H Direct Bilirubin AST ALT C-Reactive Protein Total Protein Albumin Salicylates Acetaminophen Heparin-induced Plt Ab 11/06/18 11/06/18 11/06/18 15:21 16:14 16:33 WBC RBC Hgb Hct MCV MCHC RDW Plt Count Lymph % (Auto) [place] % (Auto) Lymph # [place] # Seg Neutrophils % Seg Neuts % (Manual) Lymphocytes % (Manual) Monocytes % (Manual) Nucleated RBC % Seg Neutrophils # Seg Neutrophils # Man Lymphocytes # (Manual) Monocytes # (Manual) POC ABG pH 7.004 L POC ABG pCO2 33.0 L POC ABG pO2 178 H VBG pH Sodium Potassium Chloride Carbon Dioxide BUN Creatinine Glucose POC Glucose > 500 H Lactic Acid 7.60 H* Calcium Phosphorus Magnesium Direct Bilirubin AST ALT C-Reactive Protein Total Protein Albumin Salicylates Acetaminophen Heparin-induced Plt Ab 11/06/18 11/06/18 11/06/18 17:34 19:30 19:30 WBC RBC Hgb Hct MCV MCHC RDW Plt Count Lymph % (Auto) [place] % (Auto) Lymph # [place] # Seg Neutrophils % Seg Neuts % (Manual) Lymphocytes % (Manual) Monocytes % (Manual) Nucleated RBC % Seg Neutrophils # Seg Neutrophils # Man Lymphocytes # (Manual) Monocytes # (Manual) POC ABG pH POC ABG pCO2 POC ABG pO2 VBG pH Sodium Potassium 5.5 H Chloride 97.4 L 97.7 L Carbon Dioxide 10 L 11 L BUN 88 H 87 H Creatinine 7.5 H 7.6 H Glucose 1054 H* 954 H* POC Glucose Lactic Acid Calcium 7.7 L 7.4 L Phosphorus Magnesium Direct Bilirubin AST ALT C-Reactive Protein 1.90 H Total Protein Albumin Salicylates Acetaminophen Heparin-induced Plt Ab 11/06/18 11/06/18 11/06/18 20:31 20:40 20:40 WBC RBC Hgb Hct MCV MCHC RDW Plt Count Lymph % (Auto) [place] % (Auto) Lymph # [place] # Seg Neutrophils % Seg Neuts % (Manual) Lymphocytes % (Manual) Monocytes % (Manual) Nucleated RBC % Seg Neutrophils # Seg Neutrophils # Man Lymphocytes # (Manual) Monocytes # (Manual) POC ABG pH 7.245 L POC ABG pCO2 POC ABG pO2 132 H VBG pH Sodium Potassium Chloride Carbon Dioxide BUN Creatinine Glucose 907 H* POC Glucose Lactic Acid 4.40 H* Calcium Phosphorus Magnesium Direct Bilirubin AST ALT C-Reactive Protein Total Protein Albumin Salicylates Acetaminophen Heparin-induced Plt Ab 11/06/18 11/06/18 11/06/18 22:05 22:40 23:35 WBC RBC Hgb Hct MCV MCHC RDW Plt Count Lymph % (Auto) [place] % (Auto) Lymph # [place] # Seg Neutrophils % Seg Neuts % (Manual) Lymphocytes % (Manual) Monocytes % (Manual) Nucleated RBC % Seg Neutrophils # Seg Neutrophils # Man Lymphocytes # (Manual) Monocytes # (Manual) POC ABG pH POC ABG pCO2 POC ABG pO2 VBG pH Sodium Potassium Chloride Carbon Dioxide 13 L BUN 86 H Creatinine 7.8 H Glucose 822 H* 726 H* POC Glucose Lactic Acid 3.40 H* Calcium 7.5 L Phosphorus Magnesium Direct Bilirubin AST ALT C-Reactive Protein Total Protein Albumin Salicylates Acetaminophen Heparin-induced Plt Ab 11/07/18 11/07/18 11/07/18 01:25 01:26 03:15 WBC RBC Hgb Hct MCV MCHC RDW Plt Count Lymph % (Auto) [place] % (Auto) Lymph # [place] # Seg Neutrophils % Seg Neuts % (Manual) Lymphocytes % (Manual) Monocytes % (Manual) Nucleated RBC % Seg Neutrophils # Seg Neutrophils # Man Lymphocytes # (Manual) Monocytes # (Manual) POC ABG pH POC ABG pCO2 POC ABG pO2 VBG pH Sodium Potassium Chloride Carbon Dioxide BUN Creatinine Glucose 602 H* POC Glucose > 500 H > 500 H Lactic Acid Calcium Phosphorus Magnesium Direct Bilirubin AST ALT C-Reactive Protein Total Protein Albumin Salicylates Acetaminophen Heparin-induced Plt Ab 11/07/18 11/07/18 11/07/18 03:20 04:32 04:47 WBC RBC Hgb Hct MCV MCHC RDW Plt Count Lymph % (Auto) [place] % (Auto) Lymph # [place] # Seg Neutrophils % Seg Neuts % (Manual) Lymphocytes % (Manual) Monocytes % (Manual) Nucleated RBC % Seg Neutrophils # Seg Neutrophils # Man Lymphocytes # (Manual) Monocytes # (Manual) POC ABG pH POC ABG pCO2 30.3 L POC ABG pO2 153 H VBG pH Sodium 149 H Potassium Chloride Carbon Dioxide 16 L BUN 86 H Creatinine 8.3 H Glucose 499.2 H POC Glucose 360 H Lactic Acid Calcium 7.6 L Phosphorus Magnesium Direct Bilirubin AST ALT C-Reactive Protein Total Protein Albumin Salicylates Acetaminophen Heparin-induced Plt Ab 11/07/18 11/07/18 11/07/18 05:26 06:35 06:36 WBC RBC Hgb Hct MCV MCHC RDW Plt Count Lymph % (Auto) [place] % (Auto) Lymph # [place] # Seg Neutrophils % Seg Neuts % (Manual) Lymphocytes % (Manual) Monocytes % (Manual) Nucleated RBC % Seg Neutrophils # Seg Neutrophils # Man Lymphocytes # (Manual) Monocytes # (Manual) POC ABG pH POC ABG pCO2 POC ABG pO2 VBG pH Sodium 153 H Potassium 3.2 L Chloride 109.7 H Carbon Dioxide BUN 84 H Creatinine 8.6 H Glucose 249 H POC Glucose 341 H 274 H Lactic Acid Calcium 7.6 L Phosphorus Magnesium Direct Bilirubin AST ALT C-Reactive Protein Total Protein Albumin Salicylates Acetaminophen Heparin-induced Plt Ab 11/07/18 11/07/18 11/07/18 07:33 09:00 09:52 WBC RBC Hgb Hct MCV MCHC RDW Plt Count Lymph % (Auto) [place] % (Auto) Lymph # [place] # Seg Neutrophils % Seg Neuts % (Manual) Lymphocytes % (Manual) Monocytes % (Manual) Nucleated RBC % Seg Neutrophils # Seg Neutrophils # Man Lymphocytes # (Manual) Monocytes # (Manual) POC ABG pH POC ABG pCO2 POC ABG pO2 VBG pH Sodium Potassium Chloride Carbon Dioxide BUN Creatinine Glucose POC Glucose 243 H 182 H 227 H Lactic Acid Calcium Phosphorus Magnesium Direct Bilirubin AST ALT C-Reactive Protein Total Protein Albumin Salicylates Acetaminophen Heparin-induced Plt Ab 11/07/18 11/07/18 11/07/18 10:50 10:50 10:50 WBC 11.3 H RBC 2.85 L Hgb 8.7 L Hct 25.3 L D MCV MCHC RDW Plt Count Lymph % (Auto) 9.7 L [place] % (Auto) Lymph # 1.1 L [place] # Seg Neutrophils % 83.3 H Seg Neuts % (Manual) Lymphocytes % (Manual) Monocytes % (Manual) Nucleated RBC % Seg Neutrophils # 9.4 H Seg Neutrophils # Man Lymphocytes # (Manual) Monocytes # (Manual) POC ABG pH POC ABG pCO2 POC ABG pO2 VBG pH Sodium 154 H Potassium 3.2 L Chloride 110.2 H Carbon Dioxide BUN 82 H Creatinine 8.3 H Glucose 186 H POC Glucose 200 H Lactic Acid Calcium 7.3 L Phosphorus Magnesium Direct Bilirubin AST ALT C-Reactive Protein Total Protein Albumin Salicylates Acetaminophen Heparin-induced Plt Ab 11/07/18 11/07/18 11/07/18 12:00 12:05 13:13 WBC RBC Hgb Hct MCV MCHC RDW Plt Count Lymph % (Auto) [place] % (Auto) Lymph # [place] # Seg Neutrophils % Seg Neuts % (Manual) Lymphocytes % (Manual) Monocytes % (Manual) Nucleated RBC % Seg Neutrophils # Seg Neutrophils # Man Lymphocytes # (Manual) Monocytes # (Manual) POC ABG pH POC ABG pCO2 POC ABG pO2 VBG pH Sodium Potassium Chloride Carbon Dioxide BUN Creatinine Glucose POC Glucose 179 H 190 H Lactic Acid 2.50 H* Calcium Phosphorus Magnesium Direct Bilirubin AST ALT C-Reactive Protein Total Protein Albumin Salicylates Acetaminophen Heparin-induced Plt Ab 11/07/18 11/07/18 11/07/18 13:20 14:05 15:18 WBC RBC Hgb Hct MCV MCHC RDW Plt Count Lymph % (Auto) [place] % (Auto) Lymph # [place] # Seg Neutrophils % Seg Neuts % (Manual) Lymphocytes % (Manual) Monocytes % (Manual) Nucleated RBC % Seg Neutrophils # Seg Neutrophils # Man Lymphocytes # (Manual) Monocytes # (Manual) POC ABG pH POC ABG pCO2 POC ABG pO2 VBG pH Sodium Potassium 3.1 L Chloride Carbon Dioxide BUN 50 H Creatinine 5.0 H Glucose 176 H POC Glucose 189 H 215 H Lactic Acid Calcium 7.4 L Phosphorus Magnesium Direct Bilirubin AST ALT C-Reactive Protein Total Protein Albumin Salicylates Acetaminophen Heparin-induced Plt Ab 11/07/18 11/07/18 11/07/18 16:25 17:37 23:23 WBC RBC Hgb Hct MCV MCHC RDW Plt Count Lymph % (Auto) [place] % (Auto) Lymph # [place] # Seg Neutrophils % Seg Neuts % (Manual) Lymphocytes % (Manual) Monocytes % (Manual) Nucleated RBC % Seg Neutrophils # Seg Neutrophils # Man Lymphocytes # (Manual) Monocytes # (Manual) POC ABG pH POC ABG pCO2 POC ABG pO2 VBG pH Sodium Potassium Chloride Carbon Dioxide BUN Creatinine Glucose POC Glucose 180 H 215 H 234 H Lactic Acid Calcium Phosphorus Magnesium Direct Bilirubin AST ALT C-Reactive Protein Total Protein Albumin Salicylates Acetaminophen Heparin-induced Plt Ab 11/08/18 11/08/18 11/08/18 04:17 04:23 04:23 WBC RBC 2.98 L Hgb 9.3 L Hct 26.7 L MCV MCHC 35 H RDW Plt Count 130 L Lymph % (Auto) [place] % (Auto) Lymph # [place] # Seg Neutrophils % 80.3 H Seg Neuts % (Manual) Lymphocytes % (Manual) Monocytes % (Manual) Nucleated RBC % Seg Neutrophils # 7.8 H Seg Neutrophils # Man Lymphocytes # (Manual) Monocytes # (Manual) POC ABG pH 7.520 H POC ABG pCO2 POC ABG pO2 111 H VBG pH Sodium Potassium 3.0 L Chloride Carbon Dioxide BUN 44 H Creatinine 6.3 H Glucose 245 H POC Glucose Lactic Acid Calcium 7.3 L Phosphorus Magnesium Direct Bilirubin AST ALT C-Reactive Protein Total Protein Albumin Salicylates Acetaminophen Heparin-induced Plt Ab 11/08/18 11/08/18 11/08/18 05:19 08:00 08:00 WBC RBC Hgb Hct MCV MCHC RDW Plt Count Lymph % (Auto) [place] % (Auto) Lymph # [place] # Seg Neutrophils % Seg Neuts % (Manual) Lymphocytes % (Manual) Monocytes % (Manual) Nucleated RBC % Seg Neutrophils # Seg Neutrophils # Man Lymphocytes # (Manual) Monocytes # (Manual) POC ABG pH POC ABG pCO2 POC ABG pO2 VBG pH Sodium Potassium Chloride Carbon Dioxide BUN Creatinine Glucose POC Glucose 253 H Lactic Acid 2.70 H* Calcium Phosphorus Magnesium Direct Bilirubin 0.3 H AST 932 H ALT 582 H C-Reactive Protein Total Protein 5.4 L Albumin 2.6 L Salicylates Acetaminophen Heparin-induced Plt Ab 11/08/18 11/08/18 11/08/18 11:36 17:51 21:59 WBC RBC Hgb Hct MCV MCHC RDW Plt Count Lymph % (Auto) [place] % (Auto) Lymph # [place] # Seg Neutrophils % Seg Neuts % (Manual) Lymphocytes % (Manual) Monocytes % (Manual) Nucleated RBC % Seg Neutrophils # Seg Neutrophils # Man Lymphocytes # (Manual) Monocytes # (Manual) POC ABG pH 7.459 H POC ABG pCO2 POC ABG pO2 108 H VBG pH Sodium Potassium Chloride Carbon Dioxide BUN Creatinine Glucose POC Glucose 197 H Lactic Acid Calcium Phosphorus Magnesium Direct Bilirubin AST ALT C-Reactive Protein Total Protein Albumin Salicylates Acetaminophen Heparin-induced Plt Ab Positive H 11/08/18 11/09/18 11/09/18 23:28 00:39 02:20 WBC RBC Hgb Hct MCV MCHC RDW Plt Count Lymph % (Auto) [place] % (Auto) Lymph # [place] # Seg Neutrophils % Seg Neuts % (Manual) Lymphocytes % (Manual) Monocytes % (Manual) Nucleated RBC % Seg Neutrophils # Seg Neutrophils # Man Lymphocytes # (Manual) Monocytes # (Manual) POC ABG pH POC ABG pCO2 POC ABG pO2 VBG pH Sodium Potassium Chloride Carbon Dioxide BUN Creatinine Glucose POC Glucose 418 H 471 H 254 H Lactic Acid Calcium Phosphorus Magnesium Direct Bilirubin AST ALT C-Reactive Protein Total Protein Albumin Salicylates Acetaminophen Heparin-induced Plt Ab 11/09/18 11/09/18 11/09/18 03:48 06:02 06:02 WBC RBC 2.95 L Hgb 9.2 L Hct 26.7 L MCV MCHC RDW Plt Count 101 L Lymph % (Auto) [place] % (Auto) Lymph # [place] # Seg Neutrophils % Seg Neuts % (Manual) Lymphocytes % (Manual) Monocytes % (Manual) Nucleated RBC % Seg Neutrophils # Seg Neutrophils # Man Lymphocytes # (Manual) Monocytes # (Manual) POC ABG pH POC ABG pCO2 POC ABG pO2 108 H VBG pH Sodium 150 H Potassium Chloride 108.3 H Carbon Dioxide BUN 44 H Creatinine 7.7 H Glucose 102 H POC Glucose Lactic Acid Calcium 7.2 L Phosphorus Magnesium Direct Bilirubin AST 554 H ALT 461 H C-Reactive Protein Total Protein 5.1 L Albumin 2.6 L Salicylates Acetaminophen Heparin-induced Plt Ab 11/09/18 11/09/18 11/09/18 17:49 18:49 23:32 WBC RBC Hgb Hct MCV MCHC RDW Plt Count Lymph % (Auto) [place] % (Auto) Lymph # [place] # Seg Neutrophils % Seg Neuts % (Manual) Lymphocytes % (Manual) Monocytes % (Manual) Nucleated RBC % Seg Neutrophils # Seg Neutrophils # Man Lymphocytes # (Manual) Monocytes # (Manual) POC ABG pH POC ABG pCO2 46.2 H POC ABG pO2 VBG pH Sodium Potassium Chloride Carbon Dioxide BUN Creatinine Glucose POC Glucose 184 H 150 H Lactic Acid Calcium Phosphorus Magnesium Direct Bilirubin AST ALT C-Reactive Protein Total Protein Albumin Salicylates Acetaminophen Heparin-induced Plt Ab 11/10/18 11/10/18 11/10/18 02:52 05:00 05:00 WBC RBC 2.95 L Hgb 8.9 L Hct 26.6 L MCV MCHC RDW Plt Count 100 L Lymph % (Auto) [place] % (Auto) Lymph # [place] # Seg Neutrophils % Seg Neuts % (Manual) Lymphocytes % (Manual) Monocytes % (Manual) 8.0 H Nucleated RBC % Seg Neutrophils # Seg Neutrophils # Man Lymphocytes # (Manual) Monocytes # (Manual) POC ABG pH POC ABG pCO2 POC ABG pO2 VBG pH Sodium Potassium Chloride Carbon Dioxide BUN 33 H Creatinine 6.8 H Glucose 251 H POC Glucose 186 H Lactic Acid Calcium 7.3 L Phosphorus Magnesium Direct Bilirubin AST ALT C-Reactive Protein Total Protein Albumin Salicylates Acetaminophen Heparin-induced Plt Ab 11/10/18 11/10/18 11/10/18 05:16 11:47 17:32 WBC RBC Hgb Hct MCV MCHC RDW Plt Count Lymph % (Auto) [place] % (Auto) Lymph # [place] # Seg Neutrophils % Seg Neuts % (Manual) Lymphocytes % (Manual) Monocytes % (Manual) Nucleated RBC % Seg Neutrophils # Seg Neutrophils # Man Lymphocytes # (Manual) Monocytes # (Manual) POC ABG pH POC ABG pCO2 POC ABG pO2 VBG pH Sodium Potassium Chloride Carbon Dioxide BUN Creatinine Glucose POC Glucose 242 H 261 H 194 H Lactic Acid Calcium Phosphorus Magnesium Direct Bilirubin AST ALT C-Reactive Protein Total Protein Albumin Salicylates Acetaminophen Heparin-induced Plt Ab 11/10/18 11/11/18 11/11/18 23:39 00:26 04:24 WBC RBC 2.98 L Hgb 9.1 L Hct 27.4 L MCV MCHC RDW Plt Count 114 L Lymph % (Auto) [place] % (Auto) Lymph # [place] # Seg Neutrophils % Seg Neuts % (Manual) Lymphocytes % (Manual) Monocytes % (Manual) 10.0 H Nucleated RBC % Seg Neutrophils # Seg Neutrophils # Man Lymphocytes # (Manual) Monocytes # (Manual) 1.0 H POC ABG pH POC ABG pCO2 POC ABG pO2 VBG pH Sodium Potassium Chloride Carbon Dioxide BUN Creatinine Glucose POC Glucose 60 L 124 H Lactic Acid Calcium Phosphorus Magnesium Direct Bilirubin AST ALT C-Reactive Protein Total Protein Albumin Salicylates Acetaminophen Heparin-induced Plt Ab 11/11/18 11/11/18 11/11/18 04:24 05:27 05:31 WBC RBC Hgb Hct MCV MCHC RDW Plt Count Lymph % (Auto) [place] % (Auto) Lymph # [place] # Seg Neutrophils % Seg Neuts % (Manual) Lymphocytes % (Manual) Monocytes % (Manual) Nucleated RBC % Seg Neutrophils # Seg Neutrophils # Man Lymphocytes # (Manual) Monocytes # (Manual) POC ABG pH POC ABG pCO2 48.8 H POC ABG pO2 109 H VBG pH Sodium Potassium Chloride Carbon Dioxide BUN 23 H Creatinine 5.5 H Glucose 147 H POC Glucose 172 H Lactic Acid Calcium 7.9 L Phosphorus Magnesium Direct Bilirubin AST 152 H ALT 247 H C-Reactive Protein Total Protein Albumin 2.3 L Salicylates Acetaminophen Heparin-induced Plt Ab 11/11/18 11/11/18 11/11/18 12:11 17:12 23:41 WBC RBC Hgb Hct MCV MCHC RDW Plt Count Lymph % (Auto) [place] % (Auto) Lymph # [place] # Seg Neutrophils % Seg Neuts % (Manual) Lymphocytes % (Manual) Monocytes % (Manual) Nucleated RBC % Seg Neutrophils # Seg Neutrophils # Man Lymphocytes # (Manual) Monocytes # (Manual) POC ABG pH POC ABG pCO2 POC ABG pO2 VBG pH Sodium Potassium Chloride Carbon Dioxide BUN Creatinine Glucose POC Glucose 343 H 188 H 145 H Lactic Acid Calcium Phosphorus Magnesium Direct Bilirubin AST ALT C-Reactive Protein Total Protein Albumin Salicylates Acetaminophen Heparin-induced Plt Ab 11/12/18 11/12/18 11/12/18 00:11 04:44 04:44 WBC RBC 2.91 L Hgb 9.0 L Hct 26.9 L MCV MCHC RDW Plt Count Lymph % (Auto) 12.7 L [place] % (Auto) 14.9 H Lymph # 0.8 L [place] # 1.0 H Seg Neutrophils % 71.2 H Seg Neuts % (Manual) Lymphocytes % (Manual) Monocytes % (Manual) Nucleated RBC % Seg Neutrophils # Seg Neutrophils # Man Lymphocytes # (Manual) Monocytes # (Manual) POC ABG pH POC ABG pCO2 POC ABG pO2 VBG pH Sodium Potassium Chloride Carbon Dioxide BUN 22 H Creatinine 5.0 H Glucose 288 H POC Glucose 151 H Lactic Acid Calcium Phosphorus Magnesium Direct Bilirubin AST 88 H ALT 187 H C-Reactive Protein Total Protein Albumin 2.9 L Salicylates Acetaminophen Heparin-induced Plt Ab 11/12/18 11/12/18 11/12/18 11:48 12:28 17:13 WBC RBC Hgb Hct MCV MCHC RDW Plt Count Lymph % (Auto) [place] % (Auto) Lymph # Hyde # Seg Neutrophils % Seg Neuts % (Manual) Lymphocytes % (Manual) Monocytes % (Manual) Nucleated RBC % Seg Neutrophils # Seg Neutrophils # Man Lymphocytes # (Manual) Monocytes # (Manual) POC ABG pH POC ABG pCO2 POC ABG pO2 VBG pH Sodium Potassium Chloride Carbon Dioxide BUN Creatinine Glucose POC Glucose 414 H 437 H 251 H Lactic Acid Calcium Phosphorus Magnesium Direct Bilirubin AST ALT C-Reactive Protein Total Protein Albumin Salicylates Acetaminophen Heparin-induced Plt Ab 06/12/2511/13/18 11/13/18 00:43 04:14 04:14 WBC RBC 2.62 L Hgb 8.0 L Hct 24.0 L MCV MCHC RDW Plt Count Lymph % (Auto) Hyde % (Auto) 15.8 H Lymph # Hyde # 0.9 H Seg Neutrophils % Seg Neuts % (Manual) Lymphocytes % (Manual) Monocytes % (Manual) Nucleated RBC % Seg Neutrophils # Seg Neutrophils # Man Lymphocytes # (Manual) Monocytes # (Manual) POC ABG pH POC ABG pCO2 POC ABG pO2 VBG pH Sodium Potassium Chloride Carbon Dioxide BUN 32 H Creatinine 6.9 H Glucose 190 H POC Glucose 149 H Lactic Acid Calcium Phosphorus Magnesium Direct Bilirubin AST ALT C-Reactive Protein Total Protein Albumin Salicylates Acetaminophen Heparin-induced Plt Ab 11/13/18 05:53 WBC RBC Hgb Hct MCV MCHC RDW Plt Count Lymph % (Auto) Hyde % (Auto) Lymph # [place] # Seg Neutrophils % Seg Neuts % (Manual) Lymphocytes % (Manual) Monocytes % (Manual) Nucleated RBC % Seg Neutrophils # Seg Neutrophils # Man Lymphocytes # (Manual) Monocytes # (Manual) POC ABG pH POC ABG pCO2 POC ABG pO2 VBG pH Sodium Potassium Chloride Carbon Dioxide BUN Creatinine Glucose POC Glucose 270 H Lactic Acid Calcium Phosphorus Magnesium Direct Bilirubin AST ALT C-Reactive Protein Total Protein Albumin Salicylates Acetaminophen Heparin-induced Plt Ab Chest x-ray: image reviewed Allied health notes reviewed: nursing
--- NOTE | 2018-11-13 08:57 | Progress Note ---
Assessment and Plan Acute Kidney Injury secondary to ischemic ATN from hypotension, cardiac arrest, in setting of underlying hx CKD 4: Severe Renal Failure, requiring hemodialysis initiation: S/P High Anion Gap Metabolic Acidosis with elevated lactic acidosis with DKA: S/P Hyperkalemia: S/P Hyperphosphatemia: Hypernatremia: Hypokalemia, Resolving: - HD today for clearance and UF 1-2 L - Strict monitoring of I/O's - Hypernatremia- On free water flushes of 250 ml every 4 hours via NG tube - Monitor BMP daily - Renally dose medications - Avoid Nephrotoxic agents - Obtain daily weights - Salgado Catheter: Yes - Assess dialysis needs daily S/p Cardiopulmonary arrest. STEMI: Hypoxic respiratory failure: -S/P CPR and ACLS protocol -Now off pressor support -Cardiology on board -Intubated on Vent. 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 per neurology -On IV Keppra -As per Neurology Nitish Marti MD [phone] Subjective Date of service: 11/13/18 Principal diagnosis: Ac hypoxemic resp failure; DKA; Severe sepsis with shock; ESRD on dialysis Interval history: sedated and intubated, no family at bedside Objective - Vital Signs Vital signs: Vital Signs - 12hr 11/12/18 11/12/18 11/12/18 21:00 21:30 22:00 Temperature Pulse Rate 94 H 93 H 91 H Pulse Rate [ From Monitor] Pulse Rate [ Left Dorsalis Pedis] Respiratory 20 20 20 Rate Blood Pressure 125/60 136/77 148/85 O2 Sat by Pulse 100 100 100 Oximetry 11/12/18 11/12/18 11/12/18 22:30 23:00 23:18 Temperature 99.8 F H Pulse Rate 89 101 H Pulse Rate [ From Monitor] Pulse Rate [ Left Dorsalis Pedis] Respiratory 20 17 Rate Blood Pressure 145/83 145/83 O2 Sat by Pulse 100 99 Oximetry 11/12/18 11/12/18 11/13/18 23:30 23:41 00:00 Temperature Pulse Rate 99 H 94 H 82 Pulse Rate [ From Monitor] Pulse Rate [ Left Dorsalis Pedis] Respiratory 20 20 20 Rate Blood Pressure 160/88 160/88 143/80 O2 Sat by Pulse 99 99 99 Oximetry 11/13/18 11/13/18 11/13/18 00:30 00:32 01:00 Temperature Pulse Rate 85 99 H 80 Pulse Rate [ From Monitor] Pulse Rate [ Left Dorsalis Pedis] Respiratory 20 20 Rate Blood Pressure 157/88 157/88 143/77 O2 Sat by Pulse 99 100 100 Oximetry 11/13/18 11/13/18 11/13/18 01:30 02:01 02:30 Temperature Pulse Rate 81 86 92 H Pulse Rate [ From Monitor] Pulse Rate [ Left Dorsalis Pedis] Respiratory 20 20 20 Rate Blood Pressure 133/75 173/88 179/96 O2 Sat by Pulse 100 100 100 Oximetry 11/13/18 11/13/18 11/13/18 03:00 03:30 03:39 Temperature Pulse Rate 92 H 93 H 95 H Pulse Rate [ From Monitor] Pulse Rate [ Left Dorsalis Pedis] Respiratory 20 20 Rate Blood Pressure 183/99 188/96 137/67 O2 Sat by Pulse 100 99 98 Oximetry 11/13/18 11/13/18 11/13/18 04:00 04:30 05:01 Temperature 99.5 F Pulse Rate 98 H 97 H 93 H Pulse Rate [ 93 H From Monitor] Pulse Rate [ 93 H Left Dorsalis Pedis] Respiratory 20 20 20 Rate Blood Pressure 168/88 162/81 141/77 O2 Sat by Pulse 98 97 99 Oximetry 11/13/18 11/13/18 11/13/18 05:30 06:00 06:44 Temperature Pulse Rate 89 87 Pulse Rate [ From Monitor] Pulse Rate [ Left Dorsalis Pedis] Respiratory 20 20 Rate Blood Pressure 143/80 150/86 167/89 O2 Sat by Pulse 100 100 Oximetry - General Appearance General appearance: well-developed, well-nourished, intubated EENT: ATNC, PERRL, mucous membranes dry Neck: no JVD, no carotid bruit Respiratory: Present: Clear to Ascultation Cardiology: regular, tachycardia, S1S2 Gastrointestinal: normoactive bowel sounds, no tenderness, no distended Integumentary: no rash, warm and dry Neurologic: other (intubated) Musculoskeletal: other (trace pitting edema in BLE) Psychiatric: other (intubated) - Lab 11/13/18 04:14 11/13/18 04:14 Most recent lab results Calcium 8.5 mg/dL (8.4-10.2) 11/13/18 04:14 Phosphorus 3.50 mg/dL (2.5-4.5) 11/12/18 04:44 Magnesium 2.00 mg/dL (1.7-2.3) 11/12/18 04:44 Medications & Allergies - Medications Allergies/Adverse Reactions: Allergies No Known Allergies Allergy (Verified 03/17/18 11:54) Home Medications: Home Medications Medication Instructions Recorded Confirmed Last Taken Type Esomeprazole Magnesium [NexIUM] 20 mg PO QDAY #30 suspdr.pkt 03/17/18 11/07/18 Unknown Rx HYDROcodone/APAP 5-325 [Cadiz 1 each PO Q6HR PRN #15 tablet 03/17/18 11/07/18 Unknown Rx 5/325] Metoclopramide [Reglan] 10 mg PO TID #21 tab 03/17/18 11/07/18 Unknown Rx Ondansetron [Zofran Odt] 4 mg PO Q4HR PRN #20 tab.rapdis 03/17/18 11/07/18 Unknown Rx Active Medications: Generic Name Dose Route Start Last Admin Trade Name Freq PRN Reason Stop Dose Admin Acetaminophen 650 mg 11/06/18 22:22 11/11/18 07:33 Tylenol FEEDTUBE 650 mg Q6H PRN Administration Fever >101 Lipase/Protease/Amylase 1 each 11/08/18 18:38 Pancreclara Whatley 10,500 Unit FEEDTUBE PRN PRN For Clogged Feeding Tube Baclofen 5 mg 11/10/18 14:00 11/12/18 21:00 Lioresal PO 5 mg TID MARIAJOSE Administration Chlorpromazine HCl 10 mg 11/07/18 08:07 11/10/18 05:36 Thorazine PO 10 mg Q6H PRN Administration Hiccups Clonazepam 0.5 mg 11/12/18 16:49 Klonopin PO Q12H PRN myoclonic jerks Dextrose 50 ml 11/07/18 16:46 11/10/18 23:43 D50w (25gm) Syringe IV 50 ml PRN PRN Administration Hypoglycemia Fentanyl 50 mcg 11/06/18 08:37 Sublimaze IV Q10MIN PRN ANALGESIA Hydralazine HCl 10 mg 11/08/18 00:56 11/12/18 11:38 Apresoline IV 10 mg Q4H PRN Administration Hypertension Hydralazine HCl 25 mg 11/12/18 09:00 11/13/18 06:44 Apresoline PO 25 mg Q8HR MARIAJOSE Administration Hydrophilic Ointment 1 applic 11/06/18 08:26 11/10/18 19:52 Vaseline Lip Therapy TP 1 applic Q2HR PRN Administration Dry Lips Fentanyl Citrate 2,000 mcg in 100 mls @ 4.309 mls/hr 11/06/18 10:00 11/13/18 04:34 Fentanyl Drip Premix IV 1 mcg/kg/hr TITR MARIAJOSE 4.309 mls/hr Administration Protocol 1 MCG/KG/HR Sodium Chloride 100 mls @ 999 mls/hr 11/10/18 11:26 Nacl 0.9% IV MARY PRN Hypotension Nicardipine HCl 50 mg/ Sodium 250 mls @ 25 mls/hr 11/12/18 13:00 Chloride IV TITR MARIAJOSE Protocol 5 MG/HR Levetiracetam 750 mg/ Dextrose 107.5 mls @ 400 mls/hr 11/12/18 22:00 11/12/18 22:00 IV 400 mls/hr Q12HR MARIAJOSE Administration Insulin Human Isoph/Insulin Regular 28 unit 11/12/18 17:00 11/12/18 16:25 Humulin 70/30 SUB-Q 28 unit BIDDIAB MARIAJOSE Administration Insulin Human Regular 0 units 11/07/18 18:00 11/13/18 06:44 Humulin R SUB-Q 6 units Q6HR MARIAJOSE Administration Protocol Lansoprazole 30 mg 11/09/18 10:00 11/12/18 22:00 Prevacid Solutab FEEDTUBE 30 mg BID MARIAJOSE Administration Lorazepam 2 mg 11/12/18 08:31 11/12/18 18:11 Ativan IV 2 mg Q4H PRN Administration Agitation Metoprolol Tartrate 50 mg 11/12/18 11:00 11/12/18 22:00 Lopressor PO 50 mg BID MARIAJOSE Administration Modafinil 100 mg 11/11/18 10:00 11/12/18 09:50 Provigil PO 100 mg QAM MARIAJOSE Administration Multi-Ingred Cream/Lotion/Oil/Oint 1 applic 11/06/18 08:26 Artificial Tears Ophth Oint OU Q4HR PRN Dry Eye(s) Simple Syrup 15 ml 11/08/18 18:38 Simple Syrup FEEDTUBE PRN PRN Hypoglycemia Simple Syrup 30 ml 11/08/18 18:38 Simple Syrup FEEDTUBE PRN PRN Hypoglycemia Sodium Bicarbonate 325 mg 11/08/18 18:38 Sodium Bicarbonate FEEDTUBE PRN PRN For Clogged Feeding Tube Sodium Chloride 10 ml 11/06/18 22:00 11/12/18 22:00 Sodium Chloride Flush Syringe 10 Ml IV 10 ml BID MARIAJOSE Administration Sodium Chloride 10 ml 11/06/18 12:42 Sodium Chloride Flush Syringe 10 Ml IV PRN PRN LINE FLUSH Tamsulosin HCl 0.4 mg 11/10/18 13:00 11/12/18 09:49 Flomax PO 0.4 mg QDAY MARIAJOSE Administration
[2018-11-13] MEDS: ATIVAN IV PRN ×2 (09:23→23:10)
[2018-11-13] MEDS: LOPRESSOR PO SCH ×2 (10:29→21:57)
[2018-11-13] MEDS: PREVACID SOLUTAB FEEDTUBE SCH ×2 (10:29→21:58)
[2018-11-13] MEDS: PROVIGIL PO SCH (10:29)
[2018-11-13] MEDS: SODIUM CHLORIDE FLUSH SYRINGE 10 ML IV SCH ×2 (10:31→22:00)
--- NOTE | 2018-11-13 10:31 | Progress Note ---
Assessment and Plan Currently stable cardiac status. Continue supportive measures. Will follow peripherally over the weekend. The patient has been seen in conjunction with Dr. Loving who agrees with the assessment and plan of care. - Patient Problems (1) Cardiopulmonary arrest Current Visit: Yes Status: Acute (2) Cardiomyopathy Current Visit: Yes Status: Acute (3) DKA (diabetic ketoacidoses) Current Visit: Yes Status: Acute Qualifiers: Diabetes mellitus type: type 2 Diabetes mellitus complication detail: with coma Qualified Code(s): E11.11 - Type 2 diabetes mellitus with ketoacidosis with coma (4) Metabolic acidosis Current Visit: Yes Status: Acute (5) Anoxic brain injury Current Visit: Yes Status: Suspected (6) ESRD (end stage renal disease) on dialysis Current Visit: Yes Status: Chronic (7) Anemia Current Visit: Yes Status: Acute (8) Thrombocytopenia Current Visit: Yes Status: Acute (9) PAD (peripheral artery disease) Current Visit: Yes Status: Chronic (10) History of seizures Current Visit: Yes Status: Chronic (11) Tobacco use Current Visit: Yes Status: Chronic Subjective Date of service: 11/13/18 Principal diagnosis: Ac hypoxemic resp failure; DKA; Severe sepsis with shock; ESRD on dialysis Interval history: pt remains intubated, nonresponsive. in SR/SB on tele. Objective Last Vital Signs Temp 99.5 F 11/13/18 04:00 Pulse 96 H 11/13/18 10:29 Resp 20 11/13/18 06:00 BP 175/79 11/13/18 10:29 Pulse Ox 100 11/13/18 06:00 - Physical Examination General: Other (intubated, unresponsive) HEENT: Positive: Other (patient is intubated. Not responsive. Not on any IV sedation. Pupils are fixed and dilated.) Cardiac: Positive: Regular Rhythm, S1/S2 Lungs: Positive: Decreased Breath Sounds, Oxygen, Ventilated Respirations Abdomen: Positive: Unremarkable, Soft, Active Bowel Sounds Extremities: Present: Cool. Absent: edema - Labs and Meds CBC 11/13/18 Range/Units 04:14 WBC 5.6 (4.5-11.0) K/mm3 RBC 2.62 L (3.65-5.03) M/mm3 Hgb 8.0 L (11.8-15.2) gm/dl Hct 24.0 L (35.5-45.6) % Plt Count 226 (140-440) K/mm3 Lymph # 1.2 (1.2-5.4) K/mm3 [place]val # 0.9 H (0.0-0.8) K/mm3 Eos # 0.1 (0.0-0.4) K/mm3 Baso # 0.0 (0.0-0.1) K/mm3 Comprehensive Metabolic Panel 11/13/18 Range/Units 04:14 Sodium 141 (137-145) mmol/L Potassium 3.9 (3.6-5.0) mmol/L Chloride 98.4 (98-107) mmol/L Carbon Dioxide 28 (22-30) mmol/L BUN 32 H (9-20) mg/dL Creatinine 6.9 H (0.8-1.5) mg/dL Glucose 190 H (75-100) mg/dL Calcium 8.5 (8.4-10.2) mg/dL - Imaging and Cardiology EKG: report reviewed, image reviewed Echo: report reviewed (EF 30-35%, mild MR and TR. ) - EKG Sinus rhythms and dysrhythmias: sinus arrest or pause Ventricular dysrhythmias: idioventricular escape rh AV and intraventricular conduction: intraventricular conducti Repolarization changes or abnormalities: Suggestive of hyperkalemia (wide QRS complexes and ST depression evaluation probably all due to severe hyperkalemia. The last EKG does not show any ST elevation but continues to show peaked T waves.) - Allied health notes Allied health notes reviewed: nursing
[2018-11-13] MEDS: FLOMAX PO SCH (10:41)
[2018-11-13] MEDS: KEPPRA 750 MG in D5W 100 ML IV SCH ×2 (10:43→22:13)
[2018-11-13] MEDS: ELIQUIS FEEDTUBE SCH ×2 (11:00→21:58)
[2018-11-13] MEDS ORDERED: NACL 0.9% 1000 ML 2,000 ML ONE (13:43)
--- NOTE | 2018-11-13 16:19 | Progress Note ---
Assessment and Plan Patient is verbally unresponsive. Doesn't seem to be as alert as he was yesterday. He was given Provigil 100 mg in the morning for improving his arousal. Patient's pupils react to light and accommodation. Extraocular movement is intact. Corneal reflexes are present. No spontaneous movement of extremities. Generalized hypo reflexia in all 4 extremities with no response to plantar stimulation. Impression. End stage renal disease with anoxic encephalopathy. Currently unresponsive to verbal stimulation and no evidence of voluntary cortical activities although brain stem function is intact. Patient's current mental status is due to elevated BUN and creatinine from his renal failure.in addition to anoxic encephalopathy. He is getting dialysis today. After dialysis and influence of Provigil he is expected to show some improvement of his current mental status. Plan. We'll continue to follow and made recommendations as needed. Subjective Principal diagnosis: Ac hypoxemic resp failure; DKA; Severe sepsis with shock; ESRD on dialysis Objective - Vital Sign Vital Signs - 12hr 11/13/18 11/13/18 11/13/18 04:30 05:01 05:30 Pulse Rate 97 H 93 H 89 Pulse Rate [ From Monitor] Pulse Rate [ Left Dorsalis Pedis] Respiratory 20 20 20 Rate Blood Pressure 162/81 141/77 143/80 O2 Sat by Pulse 97 99 100 Oximetry 11/13/18 11/13/18 11/13/18 06:00 06:30 06:44 Pulse Rate 87 91 H Pulse Rate [ From Monitor] Pulse Rate [ Left Dorsalis Pedis] Respiratory 20 20 Rate Blood Pressure 150/86 167/89 167/89 O2 Sat by Pulse 100 100 Oximetry 11/13/18 11/13/18 11/13/18 07:00 07:30 08:00 Pulse Rate 87 89 87 Pulse Rate [ 90 From Monitor] Pulse Rate [ 90 Left Dorsalis Pedis] Respiratory 20 21 20 Rate Blood Pressure 160/90 159/88 162/91 O2 Sat by Pulse 100 100 100 Oximetry 11/13/18 11/13/18 11/13/18 08:30 09:01 09:31 Pulse Rate 88 91 H 88 Pulse Rate [ From Monitor] Pulse Rate [ Left Dorsalis Pedis] Respiratory 20 20 8 L Rate Blood Pressure 180/98 162/91 180/98 O2 Sat by Pulse 100 99 99 Oximetry 06/07/19 06/07/19 06/07/19 10:00 10:01 10:29 Pulse Rate 90 96 H 96 H Pulse Rate [ From Monitor] Pulse Rate [ Left Dorsalis Pedis] Respiratory 20 Rate Blood Pressure 180/98 175/79 O2 Sat by Pulse 98 Oximetry 11/13/18 11/13/18 11/13/18 10:31 11:01 11:31 Pulse Rate 95 H 92 H 100 H Pulse Rate [ From Monitor] Pulse Rate [ Left Dorsalis Pedis] Respiratory 20 20 21 Rate Blood Pressure 180/98 180/98 180/98 O2 Sat by Pulse 99 99 100 Oximetry 11/13/18 11/13/18 11/13/18 12:00 12:01 12:31 Pulse Rate 89 88 88 Pulse Rate [ From Monitor] Pulse Rate [ Left Dorsalis Pedis] Respiratory 18 17 Rate Blood Pressure 142/62 180/98 180/98 O2 Sat by Pulse 99 99 99 Oximetry - Laboratory Findings CBC and BMP: 11/13/18 04:14 11/13/18 04:14 Abnormal Lab Findings: Abnormal Labs 11/06/18 11/06/18 11/06/18 08:22 09:02 09:02 WBC 20.1 H RBC 3.40 L Hgb 10.5 L Hct MCV 119 H MCHC 26 L RDW 15.7 H Plt Count Lymph % (Auto) [place] % (Auto) Lymph # [place] # Seg Neutrophils % 80.1 H Seg Neuts % (Manual) 76.0 H Lymphocytes % (Manual) 4.0 L Monocytes % (Manual) Nucleated RBC % 1.0 H Seg Neutrophils # 16.1 H Seg Neutrophils # Man 15.3 H Lymphocytes # (Manual) 0.8 L Monocytes # (Manual) POC ABG pH POC ABG pCO2 POC ABG pO2 VBG pH Sodium 129 L Potassium 7.7 H* Chloride 79.7 L Carbon Dioxide 4 L* BUN 93 H Creatinine 7.4 H Glucose 1469 H* POC Glucose > 500 H Lactic Acid Calcium Phosphorus Magnesium Direct Bilirubin AST 2679 H ALT 1175 H C-Reactive Protein Total Protein 6.1 L Albumin 2.9 L Salicylates Acetaminophen Heparin-induced Plt Ab 11/06/18 11/06/18 11/06/18 09:02 09:02 09:02 WBC RBC Hgb Hct MCV MCHC RDW Plt Count Lymph % (Auto) [place] % (Auto) Lymph # [place] # Seg Neutrophils % Seg Neuts % (Manual) Lymphocytes % (Manual) Monocytes % (Manual) Nucleated RBC % Seg Neutrophils # Seg Neutrophils # Man Lymphocytes # (Manual) Monocytes # (Manual) POC ABG pH POC ABG pCO2 POC ABG pO2 VBG pH Sodium Potassium Chloride Carbon Dioxide BUN Creatinine Glucose POC Glucose Lactic Acid 9.40 H* Calcium Phosphorus Magnesium Direct Bilirubin AST ALT C-Reactive Protein Total Protein Albumin Salicylates < 0.3 L Acetaminophen < 5.0 L Heparin-induced Plt Ab 11/06/18 11/06/18 11/06/18 09:03 10:19 10:19 WBC RBC Hgb Hct MCV MCHC RDW Plt Count Lymph % (Auto) [place] % (Auto) Lymph # [place] # Seg Neutrophils % Seg Neuts % (Manual) Lymphocytes % (Manual) Monocytes % (Manual) Nucleated RBC % Seg Neutrophils # Seg Neutrophils # Man Lymphocytes # (Manual) Monocytes # (Manual) POC ABG pH 6.841 L POC ABG pCO2 POC ABG pO2 VBG pH Sodium 131 L Potassium 8.9 H* Chloride 85.3 L Carbon Dioxide 6 L* BUN 90 H Creatinine 7.1 H Glucose 1353 H* POC Glucose Lactic Acid Calcium 7.8 L Phosphorus 14.50 H Magnesium 2.70 H Direct Bilirubin AST ALT C-Reactive Protein Total Protein Albumin Salicylates Acetaminophen Heparin-induced Plt Ab 11/06/18 11/06/18 11/06/18 12:07 13:22 13:22 WBC RBC Hgb Hct MCV MCHC RDW Plt Count Lymph % (Auto) [place] % (Auto) Lymph # [place] # Seg Neutrophils % Seg Neuts % (Manual) Lymphocytes % (Manual) Monocytes % (Manual) Nucleated RBC % Seg Neutrophils # Seg Neutrophils # Man Lymphocytes # (Manual) Monocytes # (Manual) POC ABG pH POC ABG pCO2 POC ABG pO2 VBG pH 6.982 L* Sodium 135 L Potassium 7.0 H* D Chloride 88.4 L Carbon Dioxide 5 L* BUN 89 H Creatinine 7.2 H Glucose 1326 H* POC Glucose Lactic Acid 8.50 H* Calcium Phosphorus Magnesium Direct Bilirubin AST ALT C-Reactive Protein Total Protein Albumin Salicylates Acetaminophen Heparin-induced Plt Ab 11/06/18 11/06/18 11/06/18 14:15 14:15 15:21 WBC RBC Hgb Hct MCV MCHC RDW Plt Count Lymph % (Auto) [place] % (Auto) Lymph # [place] # Seg Neutrophils % Seg Neuts % (Manual) Lymphocytes % (Manual) Monocytes % (Manual) Nucleated RBC % Seg Neutrophils # Seg Neutrophils # Man Lymphocytes # (Manual) Monocytes # (Manual) POC ABG pH POC ABG pCO2 POC ABG pO2 VBG pH Sodium Potassium 6.6 H* 6.0 H Chloride 95.3 L 93.3 L Carbon Dioxide 4 L* 6 L* BUN 83 H 91 H Creatinine 6.9 H 7.3 H Glucose 1205 H* 1174 H* POC Glucose Lactic Acid Calcium 8.2 L Phosphorus 13.00 H Magnesium 2.60 H Direct Bilirubin AST ALT C-Reactive Protein Total Protein Albumin Salicylates Acetaminophen Heparin-induced Plt Ab 11/06/18 11/06/18 11/06/18 15:21 16:14 16:33 WBC RBC Hgb Hct MCV MCHC RDW Plt Count Lymph % (Auto) [place] % (Auto) Lymph # [place] # Seg Neutrophils % Seg Neuts % (Manual) Lymphocytes % (Manual) Monocytes % (Manual) Nucleated RBC % Seg Neutrophils # Seg Neutrophils # Man Lymphocytes # (Manual) Monocytes # (Manual) POC ABG pH 7.004 L POC ABG pCO2 33.0 L POC ABG pO2 178 H VBG pH Sodium Potassium Chloride Carbon Dioxide BUN Creatinine Glucose POC Glucose > 500 H Lactic Acid 7.60 H* Calcium Phosphorus Magnesium Direct Bilirubin AST ALT C-Reactive Protein Total Protein Albumin Salicylates Acetaminophen Heparin-induced Plt Ab 11/06/18 11/06/18 11/06/18 17:34 19:30 19:30 WBC RBC Hgb Hct MCV MCHC RDW Plt Count Lymph % (Auto) [place] % (Auto) Lymph # [place] # Seg Neutrophils % Seg Neuts % (Manual) Lymphocytes % (Manual) Monocytes % (Manual) Nucleated RBC % Seg Neutrophils # Seg Neutrophils # Man Lymphocytes # (Manual) Monocytes # (Manual) POC ABG pH POC ABG pCO2 POC ABG pO2 VBG pH Sodium Potassium 5.5 H Chloride 97.4 L 97.7 L Carbon Dioxide 10 L 11 L BUN 88 H 87 H Creatinine 7.5 H 7.6 H Glucose 1054 H* 954 H* POC Glucose Lactic Acid Calcium 7.7 L 7.4 L Phosphorus Magnesium Direct Bilirubin AST ALT C-Reactive Protein 1.90 H Total Protein Albumin Salicylates Acetaminophen Heparin-induced Plt Ab 11/06/18 11/06/18 11/06/18 20:31 20:40 20:40 WBC RBC Hgb Hct MCV MCHC RDW Plt Count Lymph % (Auto) [place] % (Auto) Lymph # [place] # Seg Neutrophils % Seg Neuts % (Manual) Lymphocytes % (Manual) Monocytes % (Manual) Nucleated RBC % Seg Neutrophils # Seg Neutrophils # Man Lymphocytes # (Manual) Monocytes # (Manual) POC ABG pH 7.245 L POC ABG pCO2 POC ABG pO2 132 H VBG pH Sodium Potassium Chloride Carbon Dioxide BUN Creatinine Glucose 907 H* POC Glucose Lactic Acid 4.40 H* Calcium Phosphorus Magnesium Direct Bilirubin AST ALT C-Reactive Protein Total Protein Albumin Salicylates Acetaminophen Heparin-induced Plt Ab 11/06/18 11/06/18 11/06/18 22:05 22:40 23:35 WBC RBC Hgb Hct MCV MCHC RDW Plt Count Lymph % (Auto) [place] % (Auto) Lymph # [place] # Seg Neutrophils % Seg Neuts % (Manual) Lymphocytes % (Manual) Monocytes % (Manual) Nucleated RBC % Seg Neutrophils # Seg Neutrophils # Man Lymphocytes # (Manual) Monocytes # (Manual) POC ABG pH POC ABG pCO2 POC ABG pO2 VBG pH Sodium Potassium Chloride Carbon Dioxide 13 L BUN 86 H Creatinine 7.8 H Glucose 822 H* 726 H* POC Glucose Lactic Acid 3.40 H* Calcium 7.5 L Phosphorus Magnesium Direct Bilirubin AST ALT C-Reactive Protein Total Protein Albumin Salicylates Acetaminophen Heparin-induced Plt Ab 11/07/18 11/07/18 11/07/18 01:25 01:26 03:15 WBC RBC Hgb Hct MCV MCHC RDW Plt Count Lymph % (Auto) [place] % (Auto) Lymph # [place] # Seg Neutrophils % Seg Neuts % (Manual) Lymphocytes % (Manual) Monocytes % (Manual) Nucleated RBC % Seg Neutrophils # Seg Neutrophils # Man Lymphocytes # (Manual) Monocytes # (Manual) POC ABG pH POC ABG pCO2 POC ABG pO2 VBG pH Sodium Potassium Chloride Carbon Dioxide BUN Creatinine Glucose 602 H* POC Glucose > 500 H > 500 H Lactic Acid Calcium Phosphorus Magnesium Direct Bilirubin AST ALT C-Reactive Protein Total Protein Albumin Salicylates Acetaminophen Heparin-induced Plt Ab 11/07/18 11/07/18 11/07/18 03:20 04:32 04:47 WBC RBC Hgb Hct MCV MCHC RDW Plt Count Lymph % (Auto) [place] % (Auto) Lymph # [place] # Seg Neutrophils % Seg Neuts % (Manual) Lymphocytes % (Manual) Monocytes % (Manual) Nucleated RBC % Seg Neutrophils # Seg Neutrophils # Man Lymphocytes # (Manual) Monocytes # (Manual) POC ABG pH POC ABG pCO2 30.3 L POC ABG pO2 153 H VBG pH Sodium 149 H Potassium Chloride Carbon Dioxide 16 L BUN 86 H Creatinine 8.3 H Glucose 499.2 H POC Glucose 360 H Lactic Acid Calcium 7.6 L Phosphorus Magnesium Direct Bilirubin AST ALT C-Reactive Protein Total Protein Albumin Salicylates Acetaminophen Heparin-induced Plt Ab 11/07/18 11/07/18 11/07/18 05:26 06:35 06:36 WBC RBC Hgb Hct MCV MCHC RDW Plt Count Lymph % (Auto) [place] % (Auto) Lymph # [place] # Seg Neutrophils % Seg Neuts % (Manual) Lymphocytes % (Manual) Monocytes % (Manual) Nucleated RBC % Seg Neutrophils # Seg Neutrophils # Man Lymphocytes # (Manual) Monocytes # (Manual) POC ABG pH POC ABG pCO2 POC ABG pO2 VBG pH Sodium 153 H Potassium 3.2 L Chloride 109.7 H Carbon Dioxide BUN 84 H Creatinine 8.6 H Glucose 249 H POC Glucose 341 H 274 H Lactic Acid Calcium 7.6 L Phosphorus Magnesium Direct Bilirubin AST ALT C-Reactive Protein Total Protein Albumin Salicylates Acetaminophen Heparin-induced Plt Ab 11/07/18 11/07/18 11/07/18 07:33 09:00 09:52 WBC RBC Hgb Hct MCV MCHC RDW Plt Count Lymph % (Auto) [place] % (Auto) Lymph # [place] # Seg Neutrophils % Seg Neuts % (Manual) Lymphocytes % (Manual) Monocytes % (Manual) Nucleated RBC % Seg Neutrophils # Seg Neutrophils # Man Lymphocytes # (Manual) Monocytes # (Manual) POC ABG pH POC ABG pCO2 POC ABG pO2 VBG pH Sodium Potassium Chloride Carbon Dioxide BUN Creatinine Glucose POC Glucose 243 H 182 H 227 H Lactic Acid Calcium Phosphorus Magnesium Direct Bilirubin AST ALT C-Reactive Protein Total Protein Albumin Salicylates Acetaminophen Heparin-induced Plt Ab 11/07/18 11/07/18 11/07/18 10:50 10:50 10:50 WBC 11.3 H RBC 2.85 L Hgb 8.7 L Hct 25.3 L D MCV MCHC RDW Plt Count Lymph % (Auto) 9.7 L [place] % (Auto) Lymph # 1.1 L [place] # Seg Neutrophils % 83.3 H Seg Neuts % (Manual) Lymphocytes % (Manual) Monocytes % (Manual) Nucleated RBC % Seg Neutrophils # 9.4 H Seg Neutrophils # Man Lymphocytes # (Manual) Monocytes # (Manual) POC ABG pH POC ABG pCO2 POC ABG pO2 VBG pH Sodium 154 H Potassium 3.2 L Chloride 110.2 H Carbon Dioxide BUN 82 H Creatinine 8.3 H Glucose 186 H POC Glucose 200 H Lactic Acid Calcium 7.3 L Phosphorus Magnesium Direct Bilirubin AST ALT C-Reactive Protein Total Protein Albumin Salicylates Acetaminophen Heparin-induced Plt Ab 11/07/18 11/07/18 11/07/18 12:00 12:05 13:13 WBC RBC Hgb Hct MCV MCHC RDW Plt Count Lymph % (Auto) [place] % (Auto) Lymph # [place] # Seg Neutrophils % Seg Neuts % (Manual) Lymphocytes % (Manual) Monocytes % (Manual) Nucleated RBC % Seg Neutrophils # Seg Neutrophils # Man Lymphocytes # (Manual) Monocytes # (Manual) POC ABG pH POC ABG pCO2 POC ABG pO2 VBG pH Sodium Potassium Chloride Carbon Dioxide BUN Creatinine Glucose POC Glucose 179 H 190 H Lactic Acid 2.50 H* Calcium Phosphorus Magnesium Direct Bilirubin AST ALT C-Reactive Protein Total Protein Albumin Salicylates Acetaminophen Heparin-induced Plt Ab 11/07/18 11/07/18 11/07/18 13:20 14:05 15:18 WBC RBC Hgb Hct MCV MCHC RDW Plt Count Lymph % (Auto) [place] % (Auto) Lymph # [place] # Seg Neutrophils % Seg Neuts % (Manual) Lymphocytes % (Manual) Monocytes % (Manual) Nucleated RBC % Seg Neutrophils # Seg Neutrophils # Man Lymphocytes # (Manual) Monocytes # (Manual) POC ABG pH POC ABG pCO2 POC ABG pO2 VBG pH Sodium Potassium 3.1 L Chloride Carbon Dioxide BUN 50 H Creatinine 5.0 H Glucose 176 H POC Glucose 189 H 215 H Lactic Acid Calcium 7.4 L Phosphorus Magnesium Direct Bilirubin AST ALT C-Reactive Protein Total Protein Albumin Salicylates Acetaminophen Heparin-induced Plt Ab 11/07/18 11/07/18 11/07/18 16:25 17:37 23:23 WBC RBC Hgb Hct MCV MCHC RDW Plt Count Lymph % (Auto) [place] % (Auto) Lymph # [place] # Seg Neutrophils % Seg Neuts % (Manual) Lymphocytes % (Manual) Monocytes % (Manual) Nucleated RBC % Seg Neutrophils # Seg Neutrophils # Man Lymphocytes # (Manual) Monocytes # (Manual) POC ABG pH POC ABG pCO2 POC ABG pO2 VBG pH Sodium Potassium Chloride Carbon Dioxide BUN Creatinine Glucose POC Glucose 180 H 215 H 234 H Lactic Acid Calcium Phosphorus Magnesium Direct Bilirubin AST ALT C-Reactive Protein Total Protein Albumin Salicylates Acetaminophen Heparin-induced Plt Ab 11/08/18 11/08/18 11/08/18 04:17 04:23 04:23 WBC RBC 2.98 L Hgb 9.3 L Hct 26.7 L MCV MCHC 35 H RDW Plt Count 130 L Lymph % (Auto) [place] % (Auto) Lymph # [place] # Seg Neutrophils % 80.3 H Seg Neuts % (Manual) Lymphocytes % (Manual) Monocytes % (Manual) Nucleated RBC % Seg Neutrophils # 7.8 H Seg Neutrophils # Man Lymphocytes # (Manual) Monocytes # (Manual) POC ABG pH 7.520 H POC ABG pCO2 POC ABG pO2 111 H VBG pH Sodium Potassium 3.0 L Chloride Carbon Dioxide BUN 44 H Creatinine 6.3 H Glucose 245 H POC Glucose Lactic Acid Calcium 7.3 L Phosphorus Magnesium Direct Bilirubin AST ALT C-Reactive Protein Total Protein Albumin Salicylates Acetaminophen Heparin-induced Plt Ab 11/08/18 11/08/18 11/08/18 05:19 08:00 08:00 WBC RBC Hgb Hct MCV MCHC RDW Plt Count Lymph % (Auto) [place] % (Auto) Lymph # [place] # Seg Neutrophils % Seg Neuts % (Manual) Lymphocytes % (Manual) Monocytes % (Manual) Nucleated RBC % Seg Neutrophils # Seg Neutrophils # Man Lymphocytes # (Manual) Monocytes # (Manual) POC ABG pH POC ABG pCO2 POC ABG pO2 VBG pH Sodium Potassium Chloride Carbon Dioxide BUN Creatinine Glucose POC Glucose 253 H Lactic Acid 2.70 H* Calcium Phosphorus Magnesium Direct Bilirubin 0.3 H AST 932 H ALT 582 H C-Reactive Protein Total Protein 5.4 L Albumin 2.6 L Salicylates Acetaminophen Heparin-induced Plt Ab 11/08/18 11/08/18 11/08/18 11:36 17:51 21:59 WBC RBC Hgb Hct MCV MCHC RDW Plt Count Lymph % (Auto) [place] % (Auto) Lymph # [place] # Seg Neutrophils % Seg Neuts % (Manual) Lymphocytes % (Manual) Monocytes % (Manual) Nucleated RBC % Seg Neutrophils # Seg Neutrophils # Man Lymphocytes # (Manual) Monocytes # (Manual) POC ABG pH 7.459 H POC ABG pCO2 POC ABG pO2 108 H VBG pH Sodium Potassium Chloride Carbon Dioxide BUN Creatinine Glucose POC Glucose 197 H Lactic Acid Calcium Phosphorus Magnesium Direct Bilirubin AST ALT C-Reactive Protein Total Protein Albumin Salicylates Acetaminophen Heparin-induced Plt Ab Positive H 11/08/18 11/09/18 11/09/18 23:28 00:39 02:20 WBC RBC Hgb Hct MCV MCHC RDW Plt Count Lymph % (Auto) [place] % (Auto) Lymph # [place] # Seg Neutrophils % Seg Neuts % (Manual) Lymphocytes % (Manual) Monocytes % (Manual) Nucleated RBC % Seg Neutrophils # Seg Neutrophils # Man Lymphocytes # (Manual) Monocytes # (Manual) POC ABG pH POC ABG pCO2 POC ABG pO2 VBG pH Sodium Potassium Chloride Carbon Dioxide BUN Creatinine Glucose POC Glucose 418 H 471 H 254 H Lactic Acid Calcium Phosphorus Magnesium Direct Bilirubin AST ALT C-Reactive Protein Total Protein Albumin Salicylates Acetaminophen Heparin-induced Plt Ab 11/09/18 11/09/18 11/09/18 03:48 06:02 06:02 WBC RBC 2.95 L Hgb 9.2 L Hct 26.7 L MCV MCHC RDW Plt Count 101 L Lymph % (Auto) [place] % (Auto) Lymph # [place] # Seg Neutrophils % Seg Neuts % (Manual) Lymphocytes % (Manual) Monocytes % (Manual) Nucleated RBC % Seg Neutrophils # Seg Neutrophils # Man Lymphocytes # (Manual) Monocytes # (Manual) POC ABG pH POC ABG pCO2 POC ABG pO2 108 H VBG pH Sodium 150 H Potassium Chloride 108.3 H Carbon Dioxide BUN 44 H Creatinine 7.7 H Glucose 102 H POC Glucose Lactic Acid Calcium 7.2 L Phosphorus Magnesium Direct Bilirubin AST 554 H ALT 461 H C-Reactive Protein Total Protein 5.1 L Albumin 2.6 L Salicylates Acetaminophen Heparin-induced Plt Ab 11/09/18 11/09/18 11/09/18 17:49 18:49 23:32 WBC RBC Hgb Hct MCV MCHC RDW Plt Count Lymph % (Auto) [place] % (Auto) Lymph # [place] # Seg Neutrophils % Seg Neuts % (Manual) Lymphocytes % (Manual) Monocytes % (Manual) Nucleated RBC % Seg Neutrophils # Seg Neutrophils # Man Lymphocytes # (Manual) Monocytes # (Manual) POC ABG pH POC ABG pCO2 46.2 H POC ABG pO2 VBG pH Sodium Potassium Chloride Carbon Dioxide BUN Creatinine Glucose POC Glucose 184 H 150 H Lactic Acid Calcium Phosphorus Magnesium Direct Bilirubin AST ALT C-Reactive Protein Total Protein Albumin Salicylates Acetaminophen Heparin-induced Plt Ab 11/10/18 11/10/18 11/10/18 02:52 05:00 05:00 WBC RBC 2.95 L Hgb 8.9 L Hct 26.6 L MCV MCHC RDW Plt Count 100 L Lymph % (Auto) [place] % (Auto) Lymph # [place] # Seg Neutrophils % Seg Neuts % (Manual) Lymphocytes % (Manual) Monocytes % (Manual) 8.0 H Nucleated RBC % Seg Neutrophils # Seg Neutrophils # Man Lymphocytes # (Manual) Monocytes # (Manual) POC ABG pH POC ABG pCO2 POC ABG pO2 VBG pH Sodium Potassium Chloride Carbon Dioxide BUN 33 H Creatinine 6.8 H Glucose 251 H POC Glucose 186 H Lactic Acid Calcium 7.3 L Phosphorus Magnesium Direct Bilirubin AST ALT C-Reactive Protein Total Protein Albumin Salicylates Acetaminophen Heparin-induced Plt Ab 11/10/18 11/10/18 11/10/18 05:16 11:47 17:32 WBC RBC Hgb Hct MCV MCHC RDW Plt Count Lymph % (Auto) [place] % (Auto) Lymph # [place] # Seg Neutrophils % Seg Neuts % (Manual) Lymphocytes % (Manual) Monocytes % (Manual) Nucleated RBC % Seg Neutrophils # Seg Neutrophils # Man Lymphocytes # (Manual) Monocytes # (Manual) POC ABG pH POC ABG pCO2 POC ABG pO2 VBG pH Sodium Potassium Chloride Carbon Dioxide BUN Creatinine Glucose POC Glucose 242 H 261 H 194 H Lactic Acid Calcium Phosphorus Magnesium Direct Bilirubin AST ALT C-Reactive Protein Total Protein Albumin Salicylates Acetaminophen Heparin-induced Plt Ab 11/10/18 11/11/18 11/11/18 23:39 00:26 04:24 WBC RBC 2.98 L Hgb 9.1 L Hct 27.4 L MCV MCHC RDW Plt Count 114 L Lymph % (Auto) [place] % (Auto) Lymph # [place] # Seg Neutrophils % Seg Neuts % (Manual) Lymphocytes % (Manual) Monocytes % (Manual) 10.0 H Nucleated RBC % Seg Neutrophils # Seg Neutrophils # Man Lymphocytes # (Manual) Monocytes # (Manual) 1.0 H POC ABG pH POC ABG pCO2 POC ABG pO2 VBG pH Sodium Potassium Chloride Carbon Dioxide BUN Creatinine Glucose POC Glucose 60 L 124 H Lactic Acid Calcium Phosphorus Magnesium Direct Bilirubin AST ALT C-Reactive Protein Total Protein Albumin Salicylates Acetaminophen Heparin-induced Plt Ab 11/11/18 11/11/18 11/11/18 04:24 05:27 05:31 WBC RBC Hgb Hct MCV MCHC RDW Plt Count Lymph % (Auto) [place] % (Auto) Lymph # [place] # Seg Neutrophils % Seg Neuts % (Manual) Lymphocytes % (Manual) Monocytes % (Manual) Nucleated RBC % Seg Neutrophils # Seg Neutrophils # Man Lymphocytes # (Manual) Monocytes # (Manual) POC ABG pH POC ABG pCO2 48.8 H POC ABG pO2 109 H VBG pH Sodium Potassium Chloride Carbon Dioxide BUN 23 H Creatinine 5.5 H Glucose 147 H POC Glucose 172 H Lactic Acid Calcium 7.9 L Phosphorus Magnesium Direct Bilirubin AST 152 H ALT 247 H C-Reactive Protein Total Protein Albumin 2.3 L Salicylates Acetaminophen Heparin-induced Plt Ab 11/11/18 11/11/18 11/11/18 12:11 17:12 23:41 WBC RBC Hgb Hct MCV MCHC RDW Plt Count Lymph % (Auto) [place] % (Auto) Lymph # [place] # Seg Neutrophils % Seg Neuts % (Manual) Lymphocytes % (Manual) Monocytes % (Manual) Nucleated RBC % Seg Neutrophils # Seg Neutrophils # Man Lymphocytes # (Manual) Monocytes # (Manual) POC ABG pH POC ABG pCO2 POC ABG pO2 VBG pH Sodium Potassium Chloride Carbon Dioxide BUN Creatinine Glucose POC Glucose 343 H 188 H 145 H Lactic Acid Calcium Phosphorus Magnesium Direct Bilirubin AST ALT C-Reactive Protein Total Protein Albumin Salicylates Acetaminophen Heparin-induced Plt Ab 11/12/18 11/12/18 11/12/18 00:11 04:44 04:44 WBC RBC 2.91 L Hgb 9.0 L Hct 26.9 L MCV MCHC RDW Plt Count Lymph % (Auto) 12.7 L [place] % (Auto) 14.9 H Lymph # 0.8 L [place] # 1.0 H Seg Neutrophils % 71.2 H Seg Neuts % (Manual) Lymphocytes % (Manual) Monocytes % (Manual) Nucleated RBC % Seg Neutrophils # Seg Neutrophils # Man Lymphocytes # (Manual) Monocytes # (Manual) POC ABG pH POC ABG pCO2 POC ABG pO2 VBG pH Sodium Potassium Chloride Carbon Dioxide BUN 22 H Creatinine 5.0 H Glucose 288 H POC Glucose 151 H Lactic Acid Calcium Phosphorus Magnesium Direct Bilirubin AST 88 H ALT 187 H C-Reactive Protein Total Protein Albumin 2.9 L Salicylates Acetaminophen Heparin-induced Plt Ab 11/12/18 11/12/18 11/12/18 11:48 12:28 17:13 WBC RBC Hgb Hct MCV MCHC RDW Plt Count Lymph % (Auto) [place] % (Auto) Lymph # [place] # Seg Neutrophils % Seg Neuts % (Manual) Lymphocytes % (Manual) Monocytes % (Manual) Nucleated RBC % Seg Neutrophils # Seg Neutrophils # Man Lymphocytes # (Manual) Monocytes # (Manual) POC ABG pH POC ABG pCO2 POC ABG pO2 VBG pH Sodium Potassium Chloride Carbon Dioxide BUN Creatinine Glucose POC Glucose 414 H 437 H 251 H Lactic Acid Calcium Phosphorus Magnesium Direct Bilirubin AST ALT C-Reactive Protein Total Protein Albumin Salicylates Acetaminophen Heparin-induced Plt Ab 11/13/18 11/13/18 11/13/18 00:43 04:14 04:14 WBC RBC 2.62 L Hgb 8.0 L Hct 24.0 L MCV MCHC RDW Plt Count Lymph % (Auto) [place] % (Auto) 15.8 H Lymph # [place] # 0.9 H Seg Neutrophils % Seg Neuts % (Manual) Lymphocytes % (Manual) Monocytes % (Manual) Nucleated RBC % Seg Neutrophils # Seg Neutrophils # Man Lymphocytes # (Manual) Monocytes # (Manual) POC ABG pH POC ABG pCO2 POC ABG pO2 VBG pH Sodium Potassium Chloride Carbon Dioxide BUN 32 H Creatinine 6.9 H Glucose 190 H POC Glucose 149 H Lactic Acid Calcium Phosphorus Magnesium Direct Bilirubin AST ALT C-Reactive Protein Total Protein Albumin Salicylates Acetaminophen Heparin-induced Plt Ab 11/13/18 11/13/18 05:53 10:40 WBC RBC Hgb Hct MCV MCHC RDW Plt Count Lymph % (Auto) [place] % (Auto) Lymph # [place] # Seg Neutrophils % Seg Neuts % (Manual) Lymphocytes % (Manual) Monocytes % (Manual) Nucleated RBC % Seg Neutrophils # Seg Neutrophils # Man Lymphocytes # (Manual) Monocytes # (Manual) POC ABG pH POC ABG pCO2 POC ABG pO2 VBG pH Sodium Potassium Chloride Carbon Dioxide BUN Creatinine Glucose POC Glucose 270 H 405 H Lactic Acid Calcium Phosphorus Magnesium Direct Bilirubin AST ALT C-Reactive Protein Total Protein Albumin Salicylates Acetaminophen Heparin-induced Plt Ab
--- NOTE | 2018-11-13 16:26 | Progress Note ---
Assessment and Plan Assessment and plan: --S/P Cardiopulmonary Arrest-unknown etiology Continue supportive care, ventilatory support, nebulizers --Anoxic Encephalopathy; neurology following, supportive care Poor prognosis, follow EEG --Acute Hypoxic Respiratory failure; on ventilatory support Nebulizers, pulmonary following, wean as tolerated and extubate Possible trach and PEG if no improvement --Accelerated hypertension; continue metoprolol, nicardipine IV hydralazine when necessary, add by mouth hydralazine If no improvement to start Cardene drip --DKA-corrected; uncontrolled blood sugars Accu-Chek sliding scale coverage and ADA diet, 7030 insulin Increase the dose Dose and adjust as needed --Severe metabolic Acidosis; multifactorial closely monitor --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 closely monitor platelets --Seizure Disorder; seizure precautions Antiepileptic medications, neurology following, EEG findings noted --Acute Kidney Injury secondary to ischemic ATN from hypotension, underlying hx CKD 4: Nephrology initiate hemodialysis, avoid nephrotoxins --Cardiogenic Shock; supportive care, management per cardiology --Anemia of chronic disease; monitor H&H and transfuse as needed --Severe malnutrition/nutritional supplements, nutrition consult; --PAD; continue current management --Shock Liver; with transaminitis, trending down supportive care --DVT prophylaxis; SCDs --Full CODE STATUS Very poor prognosis. Plan of care is reviewed with the patient's mother at bedside plan of care is reviewed with the patient's nurse and case management Critical care time 33 minutes History Interval history: Patient seen and examined medical records reviewed Patient remains intubated on ventilator support, unresponsive No new events reported by the nursing Vital signs noted Hospitalist Physical - Constitutional Vitals: Temp Pulse Resp BP Pulse Ox 99.5 F 88 17 180/98 99 11/13/18 04:00 11/13/18 12:31 11/13/18 12:31 11/13/18 12:31 11/13/18 12:31 General appearance: Present: no acute distress, well-nourished, other (intubated on vent) - EENT Eyes: Present: PERRL, EOM intact - Neck Neck: Present: supple, normal ROM - Respiratory Respiratory effort: normal Respiratory: bilateral: diminished, rhonchi, negative: rales, wheezing - Cardiovascular Rhythm: regular Heart Sounds: Present: S1 & S2 - Extremities Extremities: no ischemia, No edema - Abdominal General gastrointestinal: soft, non-tender, non-distended, normal bowel sounds - Integumentary Integumentary: Present: clear, warm - Psychiatric Psychiatric: other (intubated on vent) - Neurologic Neurologic: other (intubated on vent) Results - Labs CBC & Chem 7: 11/13/18 04:14 11/13/18 04:14 Labs: Laboratory Last Values WBC 5.6 K/mm3 (4.5-11.0) 11/13/18 04:14 RBC 2.62 M/mm3 (3.65-5.03) L 11/13/18 04:14 Hgb 8.0 gm/dl (11.8-15.2) L 11/13/18 04:14 Hct 24.0 % (35.5-45.6) L 11/13/18 04:14 MCV 92 fl (84-94) 11/13/18 04:14 MCH 31 pg (28-32) 11/13/18 04:14 MCHC 33 % (32-34) 11/13/18 04:14 RDW 14.5 % (13.2-15.2) 11/13/18 04:14 Plt Count 226 K/mm3 (140-440) 11/13/18 04:14 Lymph % (Auto) 21.5 % (13.4-35.0) 11/13/18 04:14 [place] % (Auto) 15.8 % (0.0-7.3) H 11/13/18 04:14 Eos % (Auto) 2.2 % (0.0-4.3) 11/13/18 04:14 Baso % (Auto) 0.3 % (0.0-1.8) 11/13/18 04:14 Lymph # 1.2 K/mm3 (1.2-5.4) 11/13/18 04:14 [place] # 0.9 K/mm3 (0.0-0.8) H 11/13/18 04:14 Eos # 0.1 K/mm3 (0.0-0.4) 11/13/18 04:14 Baso # 0.0 K/mm3 (0.0-0.1) 11/13/18 04:14 Add Manual Diff Complete 11/11/18 04:24 Total Counted 100 11/11/18 04:24 Seg Neutrophils % 60.2 % (40.0-70.0) 11/13/18 04:14 Seg Neuts % (Manual) 66.0 % (40.0-70.0) 11/11/18 04:24 0 % 11/11/18 04:24 22.0 % (13.4-35.0) 11/11/18 04:24 Reactive Lymphs % (Man) 0 % 11/11/18 04:24 10.0 % (0.0-7.3) H 11/11/18 04:24 2.0 % (0.0-4.3) 11/11/18 04:24 0 % (0.0-1.8) 11/11/18 04:24 0 % 11/11/18 04:24 0 % 11/11/18 04:24 0 % 11/11/18 04:24 0 % 11/11/18 04:24 Nucleated RBC % Not Reportable 11/11/18 04:24 Seg Neutrophils # 3.4 K/mm3 (1.8-7.7) 11/13/18 04:14 Seg Neutrophils # Man 6.9 K/mm3 (1.8-7.7) 11/11/18 04:24 Band Neutrophils # 0.0 K/mm3 11/11/18 04:24 2.3 K/mm3 (1.2-5.4) 11/11/18 04:24 Abs React Lymphs (Man) 0.0 K/mm3 11/11/18 04:24 1.0 K/mm3 (0.0-0.8) H 11/11/18 04:24 0.2 K/mm3 (0.0-0.4) 11/11/18 04:24 0.0 K/mm3 (0.0-0.1) 11/11/18 04:24 0.0 K/mm3 11/11/18 04:24 0.0 K/mm3 11/11/18 04:24 0.0 K/mm3 11/11/18 04:24 Blast Cells # 0.0 K/mm3 11/11/18 04:24 WBC Morphology Not Reportable 11/11/18 04:24 Hypersegmented Neuts Not Reportable 11/11/18 04:24 Hyposegmented Neuts Not Reportable 11/11/18 04:24 Hypogranular Neuts Not Reportable 11/11/18 04:24 Not Reportable 11/11/18 04:24 Not Reportable 11/11/18 04:24 Not Reportable 11/11/18 04:24 Not Reportable 11/11/18 04:24 Not Reportable 11/11/18 04:24 Not Reportable 11/11/18 04:24 Consistent w auto 11/11/18 04:24 Not Reportable 11/11/18 04:24 Plt Clumps, EDTA Not Reportable 11/11/18 04:24 Not Reportable 11/11/18 04:24 Not Reportable 11/11/18 04:24 Not Reportable 11/11/18 04:24 Plt Morphology Comment Not Reportable 11/11/18 04:24 RBC Morphology Not Reportable 11/11/18 04:24 Dimorphic RBCs Not Reportable 11/11/18 04:24 Not Reportable 11/11/18 04:24 Not Reportable 11/11/18 04:24 Not Reportable 11/11/18 04:24 1+ 11/11/18 04:24 Not Reportable 11/11/18 04:24 Not Reportable 11/11/18 04:24 Not Reportable 11/11/18 04:24 Not Reportable 11/11/18 04:24 Not Reportable 11/11/18 04:24 Not Reportable 11/11/18 04:24 Not Reportable 11/11/18 04:24 Not Reportable 11/11/18 04:24 Not Reportable 11/11/18 04:24 Not Reportable 11/11/18 04:24 Not Reportable 11/11/18 04:24 Not Reportable 11/11/18 04:24 Not Reportable 11/11/18 04:24 Not Reportable 11/11/18 04:24 Not Reportable 11/11/18 04:24 Acanthocytes (Spur) Not Reportable 11/11/18 04:24 Rouleaux Not Reportable 11/11/18 04:24 Not Reportable 11/11/18 04:24 Not Reportable 11/11/18 04:24 Not Reportable 11/11/18 04:24 Not Reportable 11/11/18 04:24 Hem Pathologist Commnt No 11/11/18 04:24 Heparin Anti-Xa, Unfract Negative (Negative) 11/08/18 21:59 POC ABG pH 7.418 (7.35-7.45) 11/11/18 05:31 POC ABG pCO2 48.8 (35-45) H 11/11/18 05:31 POC ABG pO2 109 (80-105) H 11/11/18 05:31 POC ABG HCO3 31.5 (22-26 mml/L) 11/11/18 05:31 POC ABG Total CO2 33 (23-27mmol/L) 11/11/18 05:31 POC ABG O2 Sat 98 11/11/18 05:31 POC ABG Base Excess 7 ((-2) - (+3)mmol/L) 11/11/18 05:31 VBG pH 6.982 (7.320-7.420) L* 11/06/18 13:22 25 % 11/11/18 05:31 Sodium 141 mmol/L (137-145) 11/13/18 04:14 Potassium 3.9 mmol/L (3.6-5.0) 11/13/18 04:14 Chloride 98.4 mmol/L (98-107) 11/13/18 04:14 Carbon Dioxide 28 mmol/L (22-30) 11/13/18 04:14 19 mmol/L 11/13/18 04:14 BUN 32 mg/dL (9-20) H 11/13/18 04:14 6.9 mg/dL (0.8-1.5) H 11/13/18 04:14 Estimated GFR 11 ml/min 11/13/18 04:14 5 % 11/13/18 04:14 Glucose 190 mg/dL (75-100) H 11/13/18 04:14 POC Glucose 405 (70-105) H 11/13/18 10:40 Lactic Acid 2.70 mmol/L (0.7-2.0) H* 11/08/18 08:00 Calcium 8.5 mg/dL (8.4-10.2) 11/13/18 04:14 Phosphorus 3.50 mg/dL (2.5-4.5) 11/12/18 04:44 Magnesium 2.00 mg/dL (1.7-2.3) 11/12/18 04:44 0.20 mg/dL (0.1-1.2) 11/12/18 04:44 0.3 mg/dL (0-0.2) H 11/08/18 08:00 0.3 mg/dL 11/08/18 08:00 AST 88 units/L (5-40) H 11/12/18 04:44 ALT 187 units/L (7-56) H 11/12/18 04:44 124 units/L (35-129) 11/12/18 04:44 58 units/L (55-170) 11/06/18 09:02 0.027 ng/mL (0.00-0.029) 11/06/18 09:02 1.90 mg/dL (0.00-1.30) H 11/06/18 19:30 6.5 g/dL (6.3-8.2) 11/12/18 04:44 2.9 g/dL (3.9-5) L 11/12/18 04:44 0.8 % 11/12/18 04:44 See scanned result 11/08/18 21:59 Straw (Yellow) 11/06/18 10:38 Clear (Clear) 11/06/18 10:38 5.0 (5.0-7.0) 11/06/18 10:38 Ur Specific [place] 1.014 (1.003-1.030) 11/06/18 10:38 100 mg/dl mg/dL (Negative) 11/06/18 10:38 >=500 mg/dL (Negative) 11/06/18 10:38 20 mg/dL (Negative) 11/06/18 10:38 Sm (Negative) 11/06/18 10:38 Neg (Negative) 11/06/18 10:38 Neg (Negative) 11/06/18 10:38 < 2.0 mg/dL (<2.0) 11/06/18 10:38 Ur Leukocyte Esterase Neg (Negative) 11/06/18 10:38 < 1.0 /HPF (0.0-6.0) 11/06/18 10:38 2.0 /HPF (0.0-6.0) 11/06/18 10:38 U Epithel Cells (Auto) < 1.0 /HPF (0-13.0) 11/06/18 10:38 Random Vancomycin 13.2 ug/mL (0-40.0) 11/08/18 04:23 Salicylates < 0.3 mg/dL (2.8-20.0) L 11/06/18 09:02 Presumptive negative 11/06/18 10:38 Presumptive negative 11/06/18 10:38 Acetaminophen < 5.0 ug/mL (10.0-30.0) L 11/06/18 09:02 Ur Barbiturates Screen Presumptive negative 11/06/18 10:38 Ur Phencyclidine Scrn Presumptive negative 11/06/18 10:38 Ur Amphetamines Screen Presumptive negative 11/06/18 10:38 U Benzodiazepines Scrn Presumptive negative 11/06/18 10:38 Presumptive negative 11/06/18 10:38 U Marijuana (THC) Screen Presumptive positive 11/06/18 10:38 Disclamer 11/06/18 10:38 Plasma/Serum Alcohol < 0.01 % (0-0.07) 11/06/18 09:02 Heparin-induced Plt Ab Positive (Negative) H 11/08/18 21:59 UF Heparin High Dose 0 % Release 11/08/18 21:59 DEBORA UFH Low Dose 0.1 0 % Release 11/08/18 21:59 DEBORA UFH Low Dose 0.5 0 % Release 11/08/18 21:59 Hepatitis A IgM Ab Non-reactive (NonReactive) 11/07/18 13:20 Hep Bs Antigen Non-reactive (Negative) 11/07/18 13:20 Hep B Core IgM Ab Non-reactive (NonReactive) 11/07/18 13:20 Non-reactive (NonReactive) 11/07/18 13:20 Blood Type A POSITIVE 11/06/18 14:15 Antibody Screen Not Reportable 11/06/18 14:15 JANIS Antibody Screen Negative 11/06/18 14:15 Active Medications - Current Medications Current Medications: Generic Name Dose Route Start Last Admin Trade Name Freq PRN Reason Stop Dose Admin Acetaminophen 650 mg 11/06/18 22:22 11/11/18 07:33 Tylenol FEEDTUBE 650 mg Q6H PRN Administration Fever >101 Lipase/Protease/Amylase 1 each 11/08/18 18:[address] 10,500 Unit FEEDTUBE PRN PRN For Clogged Feeding Tube Apixaban 2.5 mg 11/13/18 10:00 11/13/18 11:00 Eliquis FEEDTUBE 2.5 mg BID MARIAJOSE Administration Chlorpromazine HCl 10 mg 11/07/18 08:07 11/10/18 05:36 Thorazine PO 10 mg Q6H PRN Administration Hiccups Clonazepam 0.5 mg 11/12/18 16:49 Klonopin PO Q12H PRN myoclonic jerks Dextrose 50 ml 11/07/18 16:46 11/10/18 23:43 D50w (25gm) Syringe IV 50 ml PRN PRN Administration Hypoglycemia Fentanyl 50 mcg 11/06/18 08:37 Sublimaze IV Q10MIN PRN ANALGESIA Hydralazine HCl 10 mg 11/08/18 00:56 11/12/18 11:38 Apresoline IV 10 mg Q4H PRN Administration Hypertension Hydralazine HCl 25 mg 11/12/18 09:00 11/13/18 06:44 Apresoline PO 25 mg Q8HR MARIAJOSE Administration Hydrophilic Ointment 1 applic 11/06/18 08:26 11/10/18 19:52 Vaseline Lip Therapy TP 1 applic Q2HR PRN Administration Dry Lips Fentanyl Citrate 2,000 mcg in 100 mls @ 4.309 mls/hr 11/06/18 10:00 11/13/18 04:34 Fentanyl Drip Premix IV 1 mcg/kg/hr TITR MARIAJOSE 4.309 mls/hr Administration Protocol 1 MCG/KG/HR Sodium Chloride 100 mls @ 999 mls/hr 11/10/18 11:26 Nacl 0.9% IV MARY PRN Hypotension Nicardipine HCl 50 mg/ Sodium 250 mls @ 25 mls/hr 11/12/18 13:00 Chloride IV TITR MARIAJOSE Protocol 5 MG/HR Levetiracetam 750 mg/ Dextrose 107.5 mls @ 400 mls/hr 11/12/18 22:00 11/13/18 10:43 IV 400 mls/hr Q12HR MARIAJOSE Administration Insulin Human Isoph/Insulin Regular 28 unit 11/12/18 17:00 11/13/18 10:39 Humulin 70/30 SUB-Q 28 unit BIDDIAB MARIAJOSE Administration Insulin Human Regular 0 units 11/07/18 18:00 11/13/18 12:12 Humulin R SUB-Q 10 units Q6HR MARIAJOSE Administration Protocol Lansoprazole 30 mg 11/09/18 10:00 11/13/18 10:29 Prevacid Solutab FEEDTUBE 30 mg BID MARIAJOSE Administration Lorazepam 2 mg 11/12/18 08:31 11/13/18 09:23 Ativan IV 2 mg Q4H PRN Administration Agitation Metoprolol Tartrate 50 mg 11/12/18 11:00 11/13/18 10:29 Lopressor PO 50 mg BID MARIAJOSE Administration Modafinil 100 mg 11/11/18 10:00 11/13/18 10:29 Provigil PO 100 mg QAM MARIAJOSE Administration Multi-Ingred Cream/Lotion/Oil/Oint 1 applic 11/06/18 08:26 Artificial Tears Ophth Oint OU Q4HR PRN Dry Eye(s) Simple Syrup 15 ml 11/08/18 18:38 Simple Syrup FEEDTUBE PRN PRN Hypoglycemia Simple Syrup 30 ml 11/08/18 18:38 Simple Syrup FEEDTUBE PRN PRN Hypoglycemia Sodium Bicarbonate 325 mg 11/08/18 18:38 Sodium Bicarbonate FEEDTUBE PRN PRN For Clogged Feeding Tube Sodium Chloride 10 ml 11/06/18 22:00 11/13/18 10:31 Sodium Chloride Flush Syringe 10 Ml IV 10 ml BID MARIAJOSE Administration Sodium Chloride 10 ml 11/06/18 12:42 11/13/18 10:30 Sodium Chloride Flush Syringe 10 Ml IV 10 ml PRN PRN Administration LINE FLUSH Tamsulosin HCl 0.4 mg 11/10/18 13:00 11/13/18 10:41 Flomax PO 0.4 mg QDAY MARIAJOSE Administration Nutrition/Malnutrition Assess - Dietary Evaluation Nutrition/Malnutrition Findings: Nutrition Notes Start: 11/07/18 14:40 Freq: Status: Active Protocol: Document 11/11/18 14:40 RM (Rec: 11/11/18 14:53 RM [id number]) Nutrition Notes Initial or Follow up Reassessment Current Diagnosis CKD (stage V CKD),Diabetes Other Pertinent Diagnosis on HD, PAD, Anoxic brain injury, Cardiopulmonary arrest , AMS Current Diet Glucerna 1.2 at 75 ml/hr Labs/Tests Na 142 Pertinent Medications Reviewed Height 6 ft 2 in Weight 108.8 kg [place] Body Weight (kg) 86.36 BMI 30.8 Subjective/Other Information Observed Gucerna 1.2 infusing at goal rate. Percent of energy/protein needs met: 99%/100% Burn Absent Trauma Absent #1 Nutrition Diagnosis Inadequate oral intake Diagnosis Progress(for reassessment Continues documentation) Is patient on ventilator? Yes Is Patient Ambulatory and/or Out of Bed No REE-([place]-confined to bed) 2477.928 Kcal/Kg value to use for calculation 20 Approximate Energy Requirements Using 2176 kcal/Kg Calculation Used for Recommendations Kcal/kg Additional Notes Protein Needs: 103-172g (1.2- 2g/kg) Fluid Needs: 1 ml/kcal Nutrition Intervention Nutrition Support: Glucerna 1.2 at 75ml/hr 100ml q4h Kcal 2,160 Protein (gm) 108 Fluid (mL) 1,449 Goal #1 Continue to meet at least 80% of kcal and protein needs Anticipated Discharge Needs: Unable to determine at this time Follow-Up By: 11/20/18 Additional Comments Follow for TF tolerance
[2018-11-14] MEDS: HumuLIN R SUB-Q SCH ×4 (00:16→18:12)
[2018-11-14 05:30] LABS: Basophils % (Auto) 0.3 % (0.0-1.8); Eosinophils % (Auto) 0.3 % (0.0-4.3); Hematocrit 25.2 % (35.5-45.6); Hemoglobin 8.3 gm/dl (11.8-15.2); Lymphocytes # (Auto) 0.9 K/mm3 (1.2-5.4); Lymphocytes % (Auto) 15.8 % (13.4-35.0); Mean Corpuscular HGB Conc 33 % (32-34); Mean Corpuscular Volume 92 fl (84-94); Monocytes # (Auto) 0.9 K/mm3 (0.0-0.8); Monocytes % (Auto) 15.8 % (0.0-7.3); Platelet Count 279 K/mm3 (140-440); Red Blood Count 2.75 M/mm3 (3.65-5.03); Red Cell Distribution Width 14.1 % (13.2-15.2)
[2018-11-14 05:38] LABS: Calcium 8.8 mg/dL (8.4-10.2)
[2018-11-14] MEDS: APRESOLINE PO SCH ×3 (06:14→22:49)
[2018-11-14] MEDS: APRESOLINE IV PRN (08:34)
[2018-11-14] MEDS: KEPPRA 750 MG in D5W 100 ML IV SCH ×2 (10:50→22:49)
[2018-11-14] MEDS: PROVIGIL PO SCH (10:51)
[2018-11-14] MEDS: SODIUM CHLORIDE FLUSH SYRINGE 10 ML IV SCH ×2 (10:51→22:58)
[2018-11-14] MEDS: PREVACID SOLUTAB FEEDTUBE SCH ×2 (10:51→22:48)
[2018-11-14] MEDS: FLOMAX PO SCH (10:51)
[2018-11-14] MEDS: ELIQUIS FEEDTUBE SCH ×2 (10:51→22:49)
--- NOTE | 2018-11-14 11:25 | Progress Note ---
Assessment and Plan Acute Kidney Injury secondary to ischemic ATN from hypotension, cardiac arrest, in setting of underlying hx CKD 4: Severe Renal Failure, requiring hemodialysis initiation: S/P High Anion Gap Metabolic Acidosis with elevated lactic acidosis with DKA: S/P Hyperkalemia: S/P Hyperphosphatemia: Hypernatremia: Hypokalemia, Resolving: - s/p HD yesterday, HD again today with no UF. - Strict monitoring of I/O's - Hypernatremia- On free water flushes of 250 ml every 4 hours via NG tube - Monitor BMP daily - Renally dose medications - Avoid Nephrotoxic agents - Obtain daily weights - Salgado Catheter: Yes - Assess dialysis needs daily S/p Cardiopulmonary arrest. STEMI: Hypoxic respiratory failure: -S/P CPR and ACLS protocol -Now off pressor support -Cardiology on board -Intubated on Vent. 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 per neurology -On IV Keppra -As per Neurology Bran Young MD [phone] Subjective Date of service: 11/14/18 Principal diagnosis: Ac hypoxemic resp failure; DKA; Severe sepsis with shock; ESRD on dialysis Interval history: HD today. Objective - Exam Narrative Exam: General appearance: well-developed, sedated on ventilator, intubated EENT: ATNC, PERRL Neck: no JVD, supple Respiratory: Present: Decreased Breath Sounds Cardiology: tachycardia, S1S2 Gastrointestinal: normoactive bowel sounds Integumentary: warm and dry Neurologic: alert and oriented x3 Musculoskeletal: other (trace edema to feet) - Vital Signs Vital signs: Vital Signs - 12hr 11/13/18 11/13/18 11/14/18 23:30 23:33 00:00 Temperature Pulse Rate 115 H 116 H 105 H Respiratory 24 23 22 Rate Blood Pressure 148/100 148/100 172/94 O2 Sat by Pulse 98 98 98 Oximetry 11/14/18 11/14/18 11/14/18 00:30 01:00 01:30 Temperature Pulse Rate 97 H 91 H 89 Respiratory 20 20 20 Rate Blood Pressure 166/92 162/92 170/96 O2 Sat by Pulse 99 99 99 Oximetry 11/14/18 11/14/18 11/14/18 02:00 02:30 03:00 Temperature Pulse Rate 95 H 88 85 Respiratory 20 17 20 Rate Blood Pressure 162/102 156/70 156/70 O2 Sat by Pulse 97 98 99 Oximetry 11/14/18 11/14/18 11/14/18 03:16 03:30 03:46 Temperature 98.8 F Pulse Rate 84 83 Respiratory 20 Rate Blood Pressure 133/57 140/82 O2 Sat by Pulse 99 99 Oximetry 11/14/18 11/14/18 11/14/18 04:00 04:30 05:00 Temperature Pulse Rate 82 81 82 Respiratory 20 20 20 Rate Blood Pressure 141/90 149/89 149/89 O2 Sat by Pulse 100 100 100 Oximetry 11/14/18 11/14/18 11/14/18 05:30 06:00 06:14 Temperature Pulse Rate 81 87 87 Respiratory 21 20 Rate Blood Pressure 174/99 182/99 172/68 O2 Sat by Pulse 100 100 Oximetry 11/14/18 11/14/18 11/14/18 08:00 08:34 09:26 Temperature 97.5 F L Pulse Rate 85 98 H Respiratory Rate Blood Pressure 175/94 153/61 O2 Sat by Pulse 99 Oximetry - Lab 11/14/18 04:57 11/14/18 04:57 Most recent lab results Calcium 8.8 mg/dL (8.4-10.2) 11/14/18 04:57 Phosphorus 3.50 mg/dL (2.5-4.5) 11/12/18 04:44 Magnesium 2.00 mg/dL (1.7-2.3) 11/12/18 04:44 Medications & Allergies - Medications Allergies/Adverse Reactions: Allergies No Known Allergies Allergy (Verified 03/17/18 11:54) Home Medications: Home Medications Medication Instructions Recorded Confirmed Last Taken Type Esomeprazole Magnesium [NexIUM] 20 mg PO QDAY #30 suspdr.pkt 03/17/18 11/07/18 Unknown Rx HYDROcodone/APAP 5-325 [[place] 1 each PO Q6HR PRN #15 tablet 03/17/18 11/07/18 Unknown Rx 5/325] Metoclopramide [Reglan] 10 mg PO TID #21 tab 10/09/18 06/01/19 Unknown Rx Ondansetron [Zofran Odt] 4 mg PO Q4HR PRN #20 tab.rapdis 03/17/18 11/07/18 Unknown Rx Active Medications: Generic Name Dose Route Start Last Admin Trade Name Freq PRN Reason Stop Dose Admin Acetaminophen 650 mg 11/06/18 22:22 11/11/18 07:33 Tylenol FEEDTUBE 650 mg Q6H PRN Administration Fever >101 Lipase/Protease/Amylase 1 each 11/08/18 18:38 Pancreaze 10,500 Unit FEEDTUBE PRN PRN For Clogged Feeding Tube Apixaban 2.5 mg 11/13/18 10:00 11/14/18 10:51 Eliquis FEEDTUBE 2.5 mg BID MARIAJOSE Administration Chlorpromazine HCl 10 mg 11/07/18 08:07 11/10/18 05:36 Thorazine PO 10 mg Q6H PRN Administration Hiccups Clonazepam 0.5 mg 11/12/18 16:49 11/13/18 23:10 Klonopin PO 0.5 mg Q12H PRN Administration myoclonic jerks Dextrose 50 ml 11/07/18 16:46 11/10/18 23:43 D50w (25gm) Syringe IV 50 ml PRN PRN Administration Hypoglycemia Fentanyl 50 mcg 11/06/18 08:37 Sublimaze IV Q10MIN PRN ANALGESIA Hydralazine HCl 10 mg 11/08/18 00:56 11/14/18 08:34 Apresoline IV 10 mg Q4H PRN Administration Hypertension Hydralazine HCl 50 mg 11/14/18 09:16 Apresoline PO Q8HR [facility] Hydrophilic Ointment 1 applic 11/06/18 08:26 11/10/18 19:52 Vaseline Lip Therapy TP 1 applic Q2HR PRN Administration Dry Lips Fentanyl Citrate 2,000 mcg in 100 mls @ 4.309 mls/hr 11/06/18 10:00 11/13/18 04:34 Fentanyl Drip Premix IV 1 mcg/kg/hr TITR MARIAJOSE 4.309 mls/hr Administration Protocol 1 MCG/KG/HR Sodium Chloride 100 mls @ 999 mls/hr 11/10/18 11:26 Nacl 0.9% IV MARY PRN Hypotension Nicardipine HCl 50 mg/ Sodium 250 mls @ 25 mls/hr 11/12/18 13:00 Chloride IV TITR MARIAJOSE Protocol 5 MG/HR Levetiracetam 750 mg/ Dextrose 107.5 mls @ 400 mls/hr 11/12/18 22:00 11/14/18 10:50 IV 400 mls/hr Q12HR MARIAJOSE Administration Insulin Human Isoph/Insulin Regular 32 unit 11/14/18 10:18 Humulin 70/30 SUB-Q BIDDIAB MARIAJOSE Insulin Human Regular 0 units 11/07/18 18:00 11/14/18 06:15 Humulin R SUB-Q 6 units Q6HR MARIAJOSE Administration Protocol Lansoprazole 30 mg 11/09/18 10:00 11/14/18 10:51 Prevacid Solutab FEEDTUBE 30 mg BID MARIAJOSE Administration Lorazepam 2 mg 11/12/18 08:31 11/13/18 23:10 Ativan IV 2 mg Q4H PRN Administration Agitation Metoprolol Tartrate 50 mg 11/14/18 10:00 Lopressor PO Q6H MARIAJOSE Modafinil 100 mg 11/11/18 10:00 11/14/18 10:51 Provigil PO 100 mg QAM MARIAJOSE Administration Multi-Ingred Cream/Lotion/Oil/Oint 1 applic 11/06/18 08:26 Artificial Tears Ophth Oint OU Q4HR PRN Dry Eye(s) Simple Syrup 15 ml 11/08/18 18:38 Simple Syrup FEEDTUBE PRN PRN Hypoglycemia Simple Syrup 30 ml 11/08/18 18:38 Simple Syrup FEEDTUBE PRN PRN Hypoglycemia Sodium Bicarbonate 325 mg 11/08/18 18:38 Sodium Bicarbonate FEEDTUBE PRN PRN For Clogged Feeding Tube Sodium Chloride 10 ml 11/06/18 22:00 11/14/18 10:51 Sodium Chloride Flush Syringe 10 Ml IV 10 ml BID MARIAJOSE Administration Sodium Chloride 10 ml 11/06/18 12:42 11/13/18 10:30 Sodium Chloride Flush Syringe 10 Ml IV 10 ml PRN PRN Administration LINE FLUSH Tamsulosin HCl 0.4 mg 11/10/18 13:00 11/14/18 10:51 Flomax PO 0.4 mg QDAY MARIAJOSE Administration
--- NOTE | 2018-11-14 11:27 | Progress Note ---
Assessment and Plan Add hydralazine for hypertension. Continue supportive care and other cardiac management. Patient has been seen in conjunction with Dr. Loving, who agrees with assessment and plan. - Patient Problems (1) Cardiopulmonary arrest Current Visit: Yes Status: Acute (2) Cardiomyopathy Current Visit: Yes Status: Acute (3) Hypertension Current Visit: Yes Status: Acute (4) Hypotension Current Visit: Yes Status: Resolved Qualifiers: Hypotension type: unspecified hypotension type Qualified Code(s): I95.9 - Hypotension, unspecified (5) Anemia Current Visit: Yes Status: Acute (6) DKA (diabetic ketoacidoses) Current Visit: Yes Status: Acute Qualifiers: Diabetes mellitus type: type 2 Diabetes mellitus complication detail: with coma Qualified Code(s): E11.11 - Type 2 diabetes mellitus with ketoacidosis with coma (7) Metabolic acidosis Current Visit: Yes Status: Acute (8) Unresponsive Current Visit: Yes Status: Acute (9) Thrombocytopenia Current Visit: Yes Status: Acute (10) History of seizures Current Visit: Yes Status: Chronic (11) PAD (peripheral artery disease) Current Visit: Yes Status: Chronic (12) Tobacco use Current Visit: Yes Status: Chronic (13) Anoxic brain injury Current Visit: Yes Status: Suspected Subjective Date of service: 11/14/18 Principal diagnosis: Ac hypoxemic resp failure; DKA; Severe sepsis with shock; ESRD on dialysis Interval history: Patient remains intubated with no purposeful responses to stimuli. He is hypertensive. Objective Last Vital Signs Temp 97.5 F L 11/14/18 08:00 Pulse 98 H 11/14/18 09:26 Resp 20 11/14/18 06:00 BP 153/61 11/14/18 09:26 Pulse Ox 99 11/14/18 09:26 - Physical Examination General: Other (intubated, unresponsive) HEENT: Positive: Other (patient is intubated. Not responsive. Not on any IV sedation. Pupils are fixed and dilated.) Neck: Positive: neck supple Cardiac: Positive: Reg Rate and Rhythm Lungs: Positive: clear to auscultation Neuro: Positive: Other (Unresponsive) Abdomen: Positive: Unremarkable, Soft, Active Bowel Sounds Skin: Positive: Clear Musculoskeletal: other (No purposeful movement.) Extremities: Present: normal, Cool. Absent: edema - Labs and Meds CBC 06/08/19 Range/Units 04:57 WBC 5.4 (4.5-11.0) K/mm3 RBC 2.75 L (3.65-5.03) M/mm3 Hgb 8.3 L (11.8-15.2) gm/dl Hct 25.2 L (35.5-45.6) % Plt Count 279 (140-440) K/mm3 Lymph # 0.9 L (1.2-5.4) K/mm3 Beckham # 0.9 H (0.0-0.8) K/mm3 Eos # 0.0 (0.0-0.4) K/mm3 Baso # 0.0 (0.0-0.1) K/mm3 Comprehensive Metabolic Panel 11/14/18 Range/Units 04:57 Sodium 136 L (137-145) mmol/L Potassium 4.7 D (3.6-5.0) mmol/L Chloride 96.7 L (98-107) mmol/L Carbon Dioxide 29 (22-30) mmol/L BUN 25 H (9-20) mg/dL Creatinine 5.3 H (0.8-1.5) mg/dL Glucose 235 H (75-100) mg/dL Calcium 8.8 (8.4-10.2) mg/dL - Imaging and Cardiology EKG: report reviewed, image reviewed Echo: report reviewed (EF 30-35%, mild MR and TR. ) - Telemetry EKG Rhythm: Sinus Rhythm - EKG Sinus rhythms and dysrhythmias: sinus arrest or pause Ventricular dysrhythmias: idioventricular escape rh AV and intraventricular conduction: intraventricular conducti Repolarization changes or abnormalities: Suggestive of hyperkalemia (wide QRS complexes and ST depression evaluation probably all due to severe hyperkalemia. The last EKG does not show any ST elevation but continues to show peaked T waves.) - Allied health notes Allied health notes reviewed: nursing
[2018-11-14] MEDS ORDERED: NACL 0.9% 100 ML IV PRN (11:33)
[2018-11-14] MEDS: LOPRESSOR PO SCH ×3 (12:00→22:51)
--- NOTE | 2018-11-14 14:45 | Progress Note ---
Assessment and Plan Assessment and plan: --Acute Hypoxic Respiratory failure; on ventilatory support weaning parameters, wean as tolerated and extubate Possible trach and PEG if no improvement --S/P Cardiopulmonary Arrest-unknown etiology ventilatory support, nebulizers --Anoxic Encephalopathy; neurology following, supportive care Poor prognosis, follow EEG --Accelerated hypertension; controlled today continue current antihypertensives and when necessary medications --DKA-corrected; uncontrolled blood sugars Accu-Chek sliding scale coverage and ADA diet, 70/30 insulin, adjust the dose Dose as needed --Severe metabolic Acidosis; multifactorial closely monitor --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 Plan of care is reviewed with the patient's mother in de tail plan of care is reviewed with the patient's nurse Critical care time 33 minutes History Interval history: Patient seen and examined medical records reviewed No new events reported by the nursing staff Remains intubated on vent, on weaning pattern meters Vital signs reviewed Hospitalist Physical - Constitutional Vitals: Temp Pulse Resp BP Pulse Ox 97.7 F 88 20 161/85 100 11/14/18 12:00 11/14/18 13:30 11/14/18 13:30 11/14/18 13:30 11/14/18 13:30 General appearance: Present: no acute distress, well-nourished, other (intubated on vent) - EENT Eyes: Present: PERRL, EOM intact - Neck Neck: Present: supple, normal ROM - Respiratory Respiratory effort: normal Respiratory: bilateral: diminished, negative: rales, rhonchi, wheezing - Cardiovascular Rhythm: regular Heart Sounds: Present: S1 & S2 - Extremities Extremities: no ischemia, No edema - Abdominal General gastrointestinal: soft, non-tender, non-distended, normal bowel sounds - Integumentary Integumentary: Present: clear, warm - Psychiatric Psychiatric: other (intubated on vent) - Neurologic Neurologic: other (intubated on vent) Results - Labs CBC & Chem 7: 11/14/18 04:57 11/14/18 04:57 Labs: Laboratory Last Values WBC 5.4 K/mm3 (4.5-11.0) 11/14/18 04:57 RBC 2.75 M/mm3 (3.65-5.03) L 11/14/18 04:57 Hgb 8.3 gm/dl (11.8-15.2) L 11/14/18 04:57 Hct 25.2 % (35.5-45.6) L 11/14/18 04:57 MCV 92 fl (84-94) 11/14/18 04:57 MCH 30 pg (28-32) 11/14/18 04:57 MCHC 33 % (32-34) 11/14/18 04:57 RDW 14.1 % (13.2-15.2) 11/14/18 04:57 Plt Count 279 K/mm3 (140-440) 11/14/18 04:57 Lymph % (Auto) 15.8 % (13.4-35.0) 11/14/18 04:57 [place] % (Auto) 15.8 % (0.0-7.3) H 11/14/18 04:57 Eos % (Auto) 0.3 % (0.0-4.3) 11/14/18 04:57 Baso % (Auto) 0.3 % (0.0-1.8) 11/14/18 04:57 Lymph # 0.9 K/mm3 (1.2-5.4) L 11/14/18 04:57 [place] # 0.9 K/mm3 (0.0-0.8) H 11/14/18 04:57 Eos # 0.0 K/mm3 (0.0-0.4) 11/14/18 04:57 Baso # 0.0 K/mm3 (0.0-0.1) 11/14/18 04:57 Add Manual Diff Complete 11/11/18 04:24 Total Counted 100 11/11/18 04:24 Seg Neutrophils % 67.8 % (40.0-70.0) 11/14/18 04:57 Seg Neuts % (Manual) 66.0 % (40.0-70.0) 11/11/18 04:24 0 % 11/11/18 04:24 22.0 % (13.4-35.0) 11/11/18 04:24 Reactive Lymphs % (Man) 0 % 11/11/18 04:24 10.0 % (0.0-7.3) H 11/11/18 04:24 2.0 % (0.0-4.3) 11/11/18 04:24 0 % (0.0-1.8) 11/11/18 04:24 0 % 11/11/18 04:24 0 % 11/11/18 04:24 0 % 11/11/18 04:24 0 % 11/11/18 04:24 Nucleated RBC % Not Reportable 11/11/18 04:24 Seg Neutrophils # 3.7 K/mm3 (1.8-7.7) 11/14/18 04:57 Seg Neutrophils # Man 6.9 K/mm3 (1.8-7.7) 11/11/18 04:24 Band Neutrophils # 0.0 K/mm3 11/11/18 04:24 2.3 K/mm3 (1.2-5.4) 11/11/18 04:24 Abs React Lymphs (Man) 0.0 K/mm3 11/11/18 04:24 1.0 K/mm3 (0.0-0.8) H 11/11/18 04:24 0.2 K/mm3 (0.0-0.4) 11/11/18 04:24 0.0 K/mm3 (0.0-0.1) 11/11/18 04:24 0.0 K/mm3 11/11/18 04:24 0.0 K/mm3 11/11/18 04:24 0.0 K/mm3 11/11/18 04:24 Blast Cells # 0.0 K/mm3 11/11/18 04:24 WBC Morphology Not Reportable 11/11/18 04:24 Hypersegmented Neuts Not Reportable 11/11/18 04:24 Hyposegmented Neuts Not Reportable 11/11/18 04:24 Hypogranular Neuts Not Reportable 11/11/18 04:24 Not Reportable 11/11/18 04:24 Not Reportable 11/11/18 04:24 Not Reportable 11/11/18 04:24 Not Reportable 11/11/18 04:24 Not Reportable 11/11/18 04:24 Not Reportable 11/11/18 04:24 Consistent w auto 11/11/18 04:24 Not Reportable 11/11/18 04:24 Plt Clumps, EDTA Not Reportable 11/11/18 04:24 Not Reportable 11/11/18 04:24 Not Reportable 11/11/18 04:24 Not Reportable 11/11/18 04:24 Plt Morphology Comment Not Reportable 11/11/18 04:24 RBC Morphology Not Reportable 11/11/18 04:24 Dimorphic RBCs Not Reportable 11/11/18 04:24 Not Reportable 11/11/18 04:24 Not Reportable 11/11/18 04:24 Not Reportable 11/11/18 04:24 1+ 11/11/18 04:24 Not Reportable 11/11/18 04:24 Not Reportable 11/11/18 04:24 Not Reportable 11/11/18 04:24 Not Reportable 11/11/18 04:24 Not Reportable 11/11/18 04:24 Not Reportable 11/11/18 04:24 Not Reportable 11/11/18 04:24 Not Reportable 11/11/18 04:24 Not Reportable 11/11/18 04:24 Not Reportable 11/11/18 04:24 Not Reportable 11/11/18 04:24 Not Reportable 11/11/18 04:24 Not Reportable 11/11/18 04:24 Not Reportable 11/11/18 04:24 Not Reportable 11/11/18 04:24 Acanthocytes (Spur) Not Reportable 11/11/18 04:24 Rouleaux Not Reportable 11/11/18 04:24 Not Reportable 11/11/18 04:24 Not Reportable 11/11/18 04:24 Not Reportable 11/11/18 04:24 Not Reportable 11/11/18 04:24 Hem Pathologist Commnt No 11/11/18 04:24 Heparin Anti-Xa, Unfract Negative (Negative) 11/08/18 21:59 POC ABG pH 7.418 (7.35-7.45) 11/11/18 05:31 POC ABG pCO2 48.8 (35-45) H 11/11/18 05:31 POC ABG pO2 109 (80-105) H 11/11/18 05:31 POC ABG HCO3 31.5 (22-26 mml/L) 11/11/18 05:31 POC ABG Total CO2 33 (23-27mmol/L) 11/11/18 05:31 POC ABG O2 Sat 98 11/11/18 05:31 POC ABG Base Excess 7 ((-2) - (+3)mmol/L) 11/11/18 05:31 VBG pH 6.982 (7.320-7.420) L* 11/06/18 13:22 25 % 11/11/18 05:31 Sodium 136 mmol/L (137-145) L 11/14/18 04:57 Potassium 4.7 mmol/L (3.6-5.0) D 11/14/18 04:57 Chloride 96.7 mmol/L (98-107) L 11/14/18 04:57 Carbon Dioxide 29 mmol/L (22-30) 11/14/18 04:57 15 mmol/L 11/14/18 04:57 BUN 25 mg/dL (9-20) H 11/14/18 04:57 5.3 mg/dL (0.8-1.5) H 11/14/18 04:57 Estimated GFR 15 ml/min 11/14/18 04:57 5 % 11/14/18 04:57 Glucose 235 mg/dL (75-100) H 11/14/18 04:57 POC Glucose 272 (70-105) H 11/14/18 11:37 Lactic Acid 2.70 mmol/L (0.7-2.0) H* 11/08/18 08:00 Calcium 8.8 mg/dL (8.4-10.2) 11/14/18 04:57 Phosphorus 3.50 mg/dL (2.5-4.5) 11/12/18 04:44 Magnesium 2.00 mg/dL (1.7-2.3) 11/12/18 04:44 0.20 mg/dL (0.1-1.2) 11/12/18 04:44 0.3 mg/dL (0-0.2) H 11/08/18 08:00 0.3 mg/dL 11/08/18 08:00 AST 88 units/L (5-40) H 11/12/18 04:44 ALT 187 units/L (7-56) H 11/12/18 04:44 124 units/L (35-129) 11/12/18 04:44 58 units/L (55-170) 11/06/18 09:02 0.027 ng/mL (0.00-0.029) 11/06/18 09:02 1.90 mg/dL (0.00-1.30) H 11/06/18 19:30 6.5 g/dL (6.3-8.2) 11/12/18 04:44 2.9 g/dL (3.9-5) L 11/12/18 04:44 0.8 % 11/12/18 04:44 See scanned result 11/08/18 21:59 Straw (Yellow) 11/06/18 10:38 Clear (Clear) 11/06/18 10:38 5.0 (5.0-7.0) 11/06/18 10:38 Ur Specific [place] 1.014 (1.003-1.030) 11/06/18 10:38 100 mg/dl mg/dL (Negative) 11/06/18 10:38 >=500 mg/dL (Negative) 11/06/18 10:38 20 mg/dL (Negative) 11/06/18 10:38 Sm (Negative) 11/06/18 10:38 Neg (Negative) 11/06/18 10:38 Neg (Negative) 11/06/18 10:38 < 2.0 mg/dL (<2.0) 11/06/18 10:38 Ur Leukocyte Esterase Neg (Negative) 11/06/18 10:38 < 1.0 /HPF (0.0-6.0) 11/06/18 10:38 2.0 /HPF (0.0-6.0) 11/06/18 10:38 U Epithel Cells (Auto) < 1.0 /HPF (0-13.0) 11/06/18 10:38 Random Vancomycin 13.2 ug/mL (0-40.0) 11/08/18 04:23 Salicylates < 0.3 mg/dL (2.8-20.0) L 11/06/18 09:02 Presumptive negative 11/06/18 10:38 Presumptive negative 11/06/18 10:38 Acetaminophen < 5.0 ug/mL (10.0-30.0) L 11/06/18 09:02 Ur Barbiturates Screen Presumptive negative 11/06/18 10:38 Ur Phencyclidine Scrn Presumptive negative 11/06/18 10:38 Ur Amphetamines Screen Presumptive negative 11/06/18 10:38 U Benzodiazepines Scrn Presumptive negative 11/06/18 10:38 Presumptive negative 11/06/18 10:38 U Marijuana (THC) Screen Presumptive positive 11/06/18 10:38 Disclamer 11/06/18 10:38 Plasma/Serum Alcohol < 0.01 % (0-0.07) 11/06/18 09:02 Heparin-induced Plt Ab Positive (Negative) H 11/08/18 21:59 UF Heparin High Dose 0 % Release 11/08/18 21:59 DEBORA UFH Low Dose 0.1 0 % Release 11/08/18 21:59 DEBORA UFH Low Dose 0.5 0 % Release 11/08/18 21:59 Hepatitis A IgM Ab Non-reactive (NonReactive) 11/07/18 13:20 Hep Bs Antigen Non-reactive (Negative) 11/07/18 13:20 Hep B Core IgM Ab Non-reactive (NonReactive) 11/07/18 13:20 Non-reactive (NonReactive) 11/07/18 13:20 Blood Type A POSITIVE 11/06/18 14:15 Antibody Screen Not Reportable 11/06/18 14:15 JANIS Antibody Screen Negative 11/06/18 14:15 Active Medications - Current Medications Current Medications: Generic Name Dose Route Start Last Admin Trade Name Freq PRN Reason Stop Dose Admin Acetaminophen 650 mg 11/06/18 22:22 11/11/18 07:33 Tylenol FEEDTUBE 650 mg Q6H PRN Administration Fever >101 Lipase/Protease/Amylase 1 each 11/08/18 18:38 Pancreaze 10,500 Unit FEEDTUBE PRN PRN For Clogged Feeding Tube Apixaban 2.5 mg 11/13/18 10:00 11/14/18 10:51 Eliquis FEEDTUBE 2.5 mg BID MARIAJOSE Administration Chlorpromazine HCl 10 mg 11/07/18 08:07 11/10/18 05:36 Thorazine PO 10 mg Q6H PRN Administration Hiccups Clonazepam 0.5 mg 11/12/18 16:49 11/13/18 23:10 Klonopin PO 0.5 mg Q12H PRN Administration myoclonic jerks Dextrose 50 ml 11/07/18 16:46 11/10/18 23:43 D50w (25gm) Syringe IV 50 ml PRN PRN Administration Hypoglycemia Fentanyl 50 mcg 11/06/18 08:37 Sublimaze IV Q10MIN PRN ANALGESIA Hydralazine HCl 10 mg 11/08/18 00:56 11/14/18 08:34 Apresoline IV 10 mg Q4H PRN Administration Hypertension Hydralazine HCl 50 mg 11/14/18 09:16 Apresoline PO Q8HR MARIAJOSE Hydrophilic Ointment 1 applic 11/06/18 08:26 11/10/18 19:52 Vaseline Lip Therapy TP 1 applic Q2HR PRN Administration Dry Lips Fentanyl Citrate 2,000 mcg in 100 mls @ 4.309 mls/hr 11/06/18 10:00 11/13/18 04:34 Fentanyl Drip Premix IV 1 mcg/kg/hr TITR MARIAJOSE 4.309 mls/hr Administration Protocol 1 MCG/KG/HR Sodium Chloride 100 mls @ 999 mls/hr 11/10/18 11:26 Nacl 0.9% IV MARY PRN Hypotension Nicardipine HCl 50 mg/ Sodium 250 mls @ 25 mls/hr 11/12/18 13:00 Chloride IV TITR MARIAJOSE Protocol 5 MG/HR Levetiracetam 750 mg/ Dextrose 107.5 mls @ 400 mls/hr 11/12/18 22:00 11/14/18 10:50 IV 400 mls/hr Q12HR MARIAJOSE Administration Sodium Chloride 100 mls @ 999 mls/hr 11/14/18 11:33 Nacl 0.9% IV MARY PRN Hypotension Insulin Human Isoph/Insulin Regular 32 unit 11/14/18 10:18 Humulin 70/30 SUB-Q BIDDIAB MARIAJOSE Insulin Human Regular 0 units 11/07/18 18:00 11/14/18 12:17 Humulin R SUB-Q 6 units Q6HR MARIAJOSE Administration Protocol Lansoprazole 30 mg 11/09/18 10:00 11/14/18 10:51 Prevacid Solutab FEEDTUBE 30 mg BID MARIAJOSE Administration Lorazepam 2 mg 11/12/18 08:31 11/13/18 23:10 Ativan IV 2 mg Q4H PRN Administration Agitation Metoprolol Tartrate 50 mg 11/14/18 10:00 11/14/18 12:00 Lopressor PO 50 mg Q6H MARIAJOSE Administration Modafinil 100 mg 11/11/18 10:00 11/14/18 10:51 Provigil PO 100 mg QAM MARIAJOSE Administration Multi-Ingred Cream/Lotion/Oil/Oint 1 applic 11/06/18 08:26 Artificial Tears Ophth Oint OU Q4HR PRN Dry Eye(s) Simple Syrup 15 ml 11/08/18 18:38 Simple Syrup FEEDTUBE PRN PRN Hypoglycemia Simple Syrup 30 ml 11/08/18 18:38 Simple Syrup FEEDTUBE PRN PRN Hypoglycemia Sodium Bicarbonate 325 mg 11/08/18 18:38 Sodium Bicarbonate FEEDTUBE PRN PRN For Clogged Feeding Tube Sodium Chloride 10 ml 11/06/18 22:00 11/14/18 10:51 Sodium Chloride Flush Syringe 10 Ml IV 10 ml BID MARIAJOSE Administration Sodium Chloride 10 ml 11/06/18 12:42 11/13/18 10:30 Sodium Chloride Flush Syringe 10 Ml IV 10 ml PRN PRN Administration LINE FLUSH Tamsulosin HCl 0.4 mg 11/10/18 13:00 11/14/18 10:51 Flomax PO 0.4 mg QDAY MARIAJOSE Administration Nutrition/Malnutrition Assess - Dietary Evaluation Nutrition/Malnutrition Findings: Nutrition Notes Start: 11/07/18 14:40 Freq: Status: Active Protocol: Document 11/11/18 14:40 RM (Rec: 11/11/18 14:53 RM [id number]) Nutrition Notes Initial or Follow up Reassessment Current Diagnosis CKD (stage V CKD),Diabetes Other Pertinent Diagnosis on HD, PAD, Anoxic brain injury, Cardiopulmonary arrest , AMS Current Diet Glucerna 1.2 at 75 ml/hr Labs/Tests Na 142 Pertinent Medications Reviewed Height 6 ft 2 in Weight 108.8 kg [place] Body Weight (kg) 86.36 BMI 30.8 Subjective/Other Information Observed Gucerna 1.2 infusing at goal rate. Percent of energy/protein needs met: 99%/100% Burn Absent Trauma Absent #1 Nutrition Diagnosis Inadequate oral intake Diagnosis Progress(for reassessment Continues documentation) Is patient on ventilator? Yes Is Patient Ambulatory and/or Out of Bed No REE-([facility]-confined to bed) 2477.928 Kcal/Kg value to use for calculation 20 Approximate Energy Requirements Using 2176 kcal/Kg Calculation Used for Recommendations Kcal/kg Additional Notes Protein Needs: 103-172g (1.2- 2g/kg) Fluid Needs: 1 ml/kcal Nutrition Intervention Nutrition Support: Glucerna 1.2 at 75ml/hr 100ml q4h Kcal 2,160 Protein (gm) 108 Fluid (mL) 1,449 Goal #1 Continue to meet at least 80% of kcal and protein needs Anticipated Discharge Needs: Unable to determine at this time Follow-Up By: 11/20/18 Additional Comments Follow for TF tolerance
--- NOTE | 2018-11-14 15:15 | Progress Note ---
Assessment and Plan Acute hypoxemic respiratory failure, on mechanical ventilator support. Diabetic ketoacidosis. Severe metabolic acidosis. Severe sepsis with shock. Acute encephalopathy that appears to be toxic metabolic. End-stage renal disease, on dialysis. Hyperkalemia at presentation. Diabetes. Peripheral vascular disease. Anemia that is macrocytic. Elevated serum transaminases, likely representing shock liver. Mild hyponatremia, pseudohyponatremia actually. Lactic acidosis. (AMS is currently a rate limiting factor to safe extubation and he will likely need a tracheostomy) - get bladder scan +/- ramirez re-insertion - continue daily SAT's and SBT assessment in am as tolerated - prn sedation target for RASS 0 to -1 - wean off vasopressors for MAP > 65 mmHg (off now) - continue to wean supplemental oxygen to keep O2 sats > 90% - EEG Impression noted re: [Anoxic brain injury with interval improvement of clinical status. I have reviewed the EEG which does not show any epileptiform activity or seizure activity. The background rhythm is a little slow other than that EEG is normal] - will follow clinically for a few more days before deciding on tracheostomy vs trial of extubation - continue Provigil - continue baclofen for myoclonic activity / hiccups - follow clinically off AB's for now ) - continue bronchodilators with pulmonary hygiene per RT - Lung protective strategies - VAP bundle addressed - continue HD/UF as tolerated for toxin and volume clearance - neurology evaluation ongoing - Monitor renal indices closely - continue to avoid nephrotoxic agents, adjust all medications for CrCL - Strict intake and output monitoring - continue enteral nutrition as tolerated - continue accuchecks with glycemic control per SSI for target glucose of 140- 180 mg/dL - Maintenance of sleep -wake cycle - Mobility protocol for pressure ulcer prophylaxis - continue GI & VTE prophylaxis - Influenza and pneumonia vaccination per protocol ... care plan discussed at length with mother at bedside PROGNOSIS: GUARDED CONDITION: CRITICAL CODE STATUS: FULL CODE The high probability of a clinically significant, sudden or life-threatening deterioration of the [respiratory, neurology, renal] system(s) required my full and direct attention, intervention and personal management. The aggregate critical care time was [31] minutes without overlap. Time includes spent on; [x] Data Review and interpretation [x] Patient assessment and monitoring of vital signs [x] Documentation [x] Medication orders and management Subjective Date of service: 11/14/18 Principal diagnosis: Ac hypoxemic resp failure; DKA; Severe sepsis with shock; ESRD on dialysis Interval history: Patient is seen today for: Acute hypoxemic respiratory failure on MVS; DKA; Severe metabolic acidosis; Severe sepsis with shock; Acute encephalopathy that appears to be toxic metabolic; ESRD on dialysis; DM II; Peripheral vascular disease. Seen and examined at bedside; 24hour events reviewed; nursing and respiratory care staff consulted; no adverse overnight events reported to me; remains on MVS; tolerating PSV trials well; AMS is persistent but no overt seizures or merlin posturing; no emesis or overt aspiration Objective Vital Signs - 12hr 11/14/18 11/14/18 11/14/18 03:16 03:30 03:46 Temperature 98.8 F Pulse Rate 84 83 Respiratory 20 Rate Blood Pressure 133/57 140/82 O2 Sat by Pulse 99 99 Oximetry 11/14/18 11/14/18 11/14/18 04:00 04:30 05:00 Temperature Pulse Rate 82 81 82 Respiratory 20 20 20 Rate Blood Pressure 141/90 149/89 149/89 O2 Sat by Pulse 100 100 100 Oximetry 11/14/18 11/14/18 11/14/18 05:30 06:00 06:14 Temperature Pulse Rate 81 87 87 Respiratory 21 20 Rate Blood Pressure 174/99 182/99 172/68 O2 Sat by Pulse 100 100 Oximetry 11/14/18 11/14/18 11/14/18 06:30 07:00 07:30 Temperature Pulse Rate 87 85 84 Respiratory 20 20 21 Rate Blood Pressure 186/98 187/100 191/109 O2 Sat by Pulse 100 99 99 Oximetry 11/14/18 11/14/18 11/14/18 08:00 08:30 08:34 Temperature 97.5 F L Pulse Rate 85 87 85 Respiratory 20 21 Rate Blood Pressure 177/94 175/94 175/94 O2 Sat by Pulse 99 99 Oximetry 11/14/18 11/14/18 11/14/18 09:00 09:26 09:30 Temperature Pulse Rate 102 H 98 H 99 H Respiratory 20 29 H 20 Rate Blood Pressure 179/89 153/61 169/89 O2 Sat by Pulse 99 99 99 Oximetry 11/14/18 11/14/18 11/14/18 10:00 10:30 11:00 Temperature Pulse Rate 98 H 95 H 93 H Respiratory 14 19 12 Rate Blood Pressure 153/80 138/78 149/86 O2 Sat by Pulse 99 99 99 Oximetry 11/14/18 11/14/18 11/14/18 11:30 12:00 12:30 Temperature 97.7 F Pulse Rate 105 H 98 H 104 H Respiratory 16 17 11 L Rate Blood Pressure 161/89 163/88 169/97 O2 Sat by Pulse 100 99 99 Oximetry 11/14/18 11/14/18 11/14/18 13:00 13:18 13:30 Temperature Pulse Rate 89 104 H 88 Respiratory 16 12 20 Rate Blood Pressure 156/86 169/97 161/85 O2 Sat by Pulse 100 99 100 Oximetry Constitutional: appears uncomfortable, other (middle aged AAM, normocephalic and atraumatic on MVS) Eyes: non-icteric ENT: oropharynx moist, other (ETT 25 cm FITO) Neck: supple, no lymphadenopathy, no JVD Effort: mildly labored Ascultation: Bilateral: clear, diminished breath sounds Percussion: Bilateral: not dull Cardiovascular: regular rate and rhythm Gastrointestinal: normoactive bowel sounds, soft, non-tender, non-distended Integumentary: rash Extremities: no cyanosis, pulses normal, no ischemia or petechiae, edema Neurologic: pupils equal and round (minimally reactive), unable to assess, other (intermittent myoclonic type jerks) Psychiatric: other (unable to assess re: AMS) CBC and BMP: 11/15/18 04:50 11/15/18 04:50 ABG, PT/INR, D-dimer: ABG POC ABG pH 7.418 (7.35-7.45) 11/11/18 05:31 POC ABG pCO2 48.8 (35-45) H 11/11/18 05:31 POC ABG pO2 109 (80-105) H 11/11/18 05:31 POC ABG HCO3 31.5 (22-26 mml/L) 11/11/18 05:31 POC ABG Total CO2 33 (23-27mmol/L) 11/11/18 05:31 POC ABG O2 Sat 98 11/11/18 05:31 Abnormal lab findings: Abnormal Labs 11/06/18 11/06/18 11/06/18 08:22 09:02 09:02 WBC 20.1 H RBC 3.40 L Hgb 10.5 L Hct MCV 119 H MCHC 26 L RDW 15.7 H Plt Count Lymph % (Auto) Porter % (Auto) Lymph # Porter # Seg Neutrophils % 80.1 H Seg Neuts % (Manual) 76.0 H Lymphocytes % (Manual) 4.0 L Monocytes % (Manual) Nucleated RBC % 1.0 H Seg Neutrophils # 16.1 H Seg Neutrophils # Man 15.3 H Lymphocytes # (Manual) 0.8 L Monocytes # (Manual) POC ABG pH POC ABG pCO2 POC ABG pO2 VBG pH Sodium 129 L Potassium 7.7 H* Chloride 79.7 L Carbon Dioxide 4 L* BUN 93 H Creatinine 7.4 H Glucose 1469 H* POC Glucose > 500 H Lactic Acid Calcium Phosphorus Magnesium Direct Bilirubin AST 2679 H ALT 1175 H C-Reactive Protein Total Protein 6.1 L Albumin 2.9 L Salicylates Acetaminophen Heparin-induced Plt Ab 11/06/18 11/06/18 11/06/18 09:02 09:02 09:02 WBC RBC Hgb Hct MCV MCHC RDW Plt Count Lymph % (Auto) Porter % (Auto) Lymph # [place] # Seg Neutrophils % Seg Neuts % (Manual) Lymphocytes % (Manual) Monocytes % (Manual) Nucleated RBC % Seg Neutrophils # Seg Neutrophils # Man Lymphocytes # (Manual) Monocytes # (Manual) POC ABG pH POC ABG pCO2 POC ABG pO2 VBG pH Sodium Potassium Chloride Carbon Dioxide BUN Creatinine Glucose POC Glucose Lactic Acid 9.40 H* Calcium Phosphorus Magnesium Direct Bilirubin AST ALT C-Reactive Protein Total Protein Albumin Salicylates < 0.3 L Acetaminophen < 5.0 L Heparin-induced Plt Ab 11/06/18 11/06/18 11/06/18 09:03 10:19 10:19 WBC RBC Hgb Hct MCV MCHC RDW Plt Count Lymph % (Auto) Porter % (Auto) Lymph # Porter # Seg Neutrophils % Seg Neuts % (Manual) Lymphocytes % (Manual) Monocytes % (Manual) Nucleated RBC % Seg Neutrophils # Seg Neutrophils # Man Lymphocytes # (Manual) Monocytes # (Manual) POC ABG pH 6.841 L POC ABG pCO2 POC ABG pO2 VBG pH Sodium 131 L Potassium 8.9 H* Chloride 85.3 L Carbon Dioxide 6 L* BUN 90 H Creatinine 7.1 H Glucose 1353 H* POC Glucose Lactic Acid Calcium 7.8 L Phosphorus 14.50 H Magnesium 2.70 H Direct Bilirubin AST ALT C-Reactive Protein Total Protein Albumin Salicylates Acetaminophen Heparin-induced Plt Ab 11/06/18 11/06/18 11/06/18 12:07 13:22 13:22 WBC RBC Hgb Hct MCV MCHC RDW Plt Count Lymph % (Auto) [place] % (Auto) Lymph # Porter # Seg Neutrophils % Seg Neuts % (Manual) Lymphocytes % (Manual) Monocytes % (Manual) Nucleated RBC % Seg Neutrophils # Seg Neutrophils # Man Lymphocytes # (Manual) Monocytes # (Manual) POC ABG pH POC ABG pCO2 POC ABG pO2 VBG pH 6.982 L* Sodium 135 L Potassium 7.0 H* D Chloride 88.4 L Carbon Dioxide 5 L* BUN 89 H Creatinine 7.2 H Glucose 1326 H* POC Glucose Lactic Acid 8.50 H* Calcium Phosphorus Magnesium Direct Bilirubin AST ALT C-Reactive Protein Total Protein Albumin Salicylates Acetaminophen Heparin-induced Plt Ab 11/06/18 11/06/18 11/06/18 14:15 14:15 15:21 WBC RBC Hgb Hct MCV MCHC RDW Plt Count Lymph % (Auto) Porter % (Auto) Lymph # [place] # Seg Neutrophils % Seg Neuts % (Manual) Lymphocytes % (Manual) Monocytes % (Manual) Nucleated RBC % Seg Neutrophils # Seg Neutrophils # Man Lymphocytes # (Manual) Monocytes # (Manual) POC ABG pH POC ABG pCO2 POC ABG pO2 VBG pH Sodium Potassium 6.6 H* 6.0 H Chloride 95.3 L 93.3 L Carbon Dioxide 4 L* 6 L* BUN 83 H 91 H Creatinine 6.9 H 7.3 H Glucose 1205 H* 1174 H* POC Glucose Lactic Acid Calcium 8.2 L Phosphorus 13.00 H Magnesium 2.60 H Direct Bilirubin AST ALT C-Reactive Protein Total Protein Albumin Salicylates Acetaminophen Heparin-induced Plt Ab 11/06/18 11/06/18 11/06/18 15:21 16:14 16:33 WBC RBC Hgb Hct MCV MCHC RDW Plt Count Lymph % (Auto) Porter % (Auto) Lymph # [place] # Seg Neutrophils % Seg Neuts % (Manual) Lymphocytes % (Manual) Monocytes % (Manual) Nucleated RBC % Seg Neutrophils # Seg Neutrophils # Man Lymphocytes # (Manual) Monocytes # (Manual) POC ABG pH 7.004 L POC ABG pCO2 33.0 L POC ABG pO2 178 H VBG pH Sodium Potassium Chloride Carbon Dioxide BUN Creatinine Glucose POC Glucose > 500 H Lactic Acid 7.60 H* Calcium Phosphorus Magnesium Direct Bilirubin AST ALT C-Reactive Protein Total Protein Albumin Salicylates Acetaminophen Heparin-induced Plt Ab 11/06/18 11/06/18 11/06/18 17:34 19:30 19:30 WBC RBC Hgb Hct MCV MCHC RDW Plt Count Lymph % (Auto) Porter % (Auto) Lymph # Porter # Seg Neutrophils % Seg Neuts % (Manual) Lymphocytes % (Manual) Monocytes % (Manual) Nucleated RBC % Seg Neutrophils # Seg Neutrophils # Man Lymphocytes # (Manual) Monocytes # (Manual) POC ABG pH POC ABG pCO2 POC ABG pO2 VBG pH Sodium Potassium 5.5 H Chloride 97.4 L 97.7 L Carbon Dioxide 10 L 11 L BUN 88 H 87 H Creatinine 7.5 H 7.6 H Glucose 1054 H* 954 H* POC Glucose Lactic Acid Calcium 7.7 L 7.4 L Phosphorus Magnesium Direct Bilirubin AST ALT C-Reactive Protein 1.90 H Total Protein Albumin Salicylates Acetaminophen Heparin-induced Plt Ab 11/06/18 11/06/18 11/06/18 20:31 20:40 20:40 WBC RBC Hgb Hct MCV MCHC RDW Plt Count Lymph % (Auto) [place] % (Auto) Lymph # Porter # Seg Neutrophils % Seg Neuts % (Manual) Lymphocytes % (Manual) Monocytes % (Manual) Nucleated RBC % Seg Neutrophils # Seg Neutrophils # Man Lymphocytes # (Manual) Monocytes # (Manual) POC ABG pH 7.245 L POC ABG pCO2 POC ABG pO2 132 H VBG pH Sodium Potassium Chloride Carbon Dioxide BUN Creatinine Glucose 907 H* POC Glucose Lactic Acid 4.40 H* Calcium Phosphorus Magnesium Direct Bilirubin AST ALT C-Reactive Protein Total Protein Albumin Salicylates Acetaminophen Heparin-induced Plt Ab 11/06/18 11/06/18 11/06/18 22:05 22:40 23:35 WBC RBC Hgb Hct MCV MCHC RDW Plt Count Lymph % (Auto) [place] % (Auto) Lymph # [place] # Seg Neutrophils % Seg Neuts % (Manual) Lymphocytes % (Manual) Monocytes % (Manual) Nucleated RBC % Seg Neutrophils # Seg Neutrophils # Man Lymphocytes # (Manual) Monocytes # (Manual) POC ABG pH POC ABG pCO2 POC ABG pO2 VBG pH Sodium Potassium Chloride Carbon Dioxide 13 L BUN 86 H Creatinine 7.8 H Glucose 822 H* 726 H* POC Glucose Lactic Acid 3.40 H* Calcium 7.5 L Phosphorus Magnesium Direct Bilirubin AST ALT C-Reactive Protein Total Protein Albumin Salicylates Acetaminophen Heparin-induced Plt Ab 11/07/18 11/07/18 11/07/18 01:25 01:26 03:15 WBC RBC Hgb Hct MCV MCHC RDW Plt Count Lymph % (Auto) [place] % (Auto) Lymph # [place] # Seg Neutrophils % Seg Neuts % (Manual) Lymphocytes % (Manual) Monocytes % (Manual) Nucleated RBC % Seg Neutrophils # Seg Neutrophils # Man Lymphocytes # (Manual) Monocytes # (Manual) POC ABG pH POC ABG pCO2 POC ABG pO2 VBG pH Sodium Potassium Chloride Carbon Dioxide BUN Creatinine Glucose 602 H* POC Glucose > 500 H > 500 H Lactic Acid Calcium Phosphorus Magnesium Direct Bilirubin AST ALT C-Reactive Protein Total Protein Albumin Salicylates Acetaminophen Heparin-induced Plt Ab 11/07/18 11/07/18 11/07/18 03:20 04:32 04:47 WBC RBC Hgb Hct MCV MCHC RDW Plt Count Lymph % (Auto) [place] % (Auto) Lymph # [place] # Seg Neutrophils % Seg Neuts % (Manual) Lymphocytes % (Manual) Monocytes % (Manual) Nucleated RBC % Seg Neutrophils # Seg Neutrophils # Man Lymphocytes # (Manual) Monocytes # (Manual) POC ABG pH POC ABG pCO2 30.3 L POC ABG pO2 153 H VBG pH Sodium 149 H Potassium Chloride Carbon Dioxide 16 L BUN 86 H Creatinine 8.3 H Glucose 499.2 H POC Glucose 360 H Lactic Acid Calcium 7.6 L Phosphorus Magnesium Direct Bilirubin AST ALT C-Reactive Protein Total Protein Albumin Salicylates Acetaminophen Heparin-induced Plt Ab 11/07/18 11/07/18 11/07/18 05:26 06:35 06:36 WBC RBC Hgb Hct MCV MCHC RDW Plt Count Lymph % (Auto) Porter % (Auto) Lymph # [place] # Seg Neutrophils % Seg Neuts % (Manual) Lymphocytes % (Manual) Monocytes % (Manual) Nucleated RBC % Seg Neutrophils # Seg Neutrophils # Man Lymphocytes # (Manual) Monocytes # (Manual) POC ABG pH POC ABG pCO2 POC ABG pO2 VBG pH Sodium 153 H Potassium 3.2 L Chloride 109.7 H Carbon Dioxide BUN 84 H Creatinine 8.6 H Glucose 249 H POC Glucose 341 H 274 H Lactic Acid Calcium 7.6 L Phosphorus Magnesium Direct Bilirubin AST ALT C-Reactive Protein Total Protein Albumin Salicylates Acetaminophen Heparin-induced Plt Ab 11/07/18 11/07/18 11/07/18 07:33 09:00 09:52 WBC RBC Hgb Hct MCV MCHC RDW Plt Count Lymph % (Auto) Porter % (Auto) Lymph # [place] # Seg Neutrophils % Seg Neuts % (Manual) Lymphocytes % (Manual) Monocytes % (Manual) Nucleated RBC % Seg Neutrophils # Seg Neutrophils # Man Lymphocytes # (Manual) Monocytes # (Manual) POC ABG pH POC ABG pCO2 POC ABG pO2 VBG pH Sodium Potassium Chloride Carbon Dioxide BUN Creatinine Glucose POC Glucose 243 H 182 H 227 H Lactic Acid Calcium Phosphorus Magnesium Direct Bilirubin AST ALT C-Reactive Protein Total Protein Albumin Salicylates Acetaminophen Heparin-induced Plt Ab 11/07/18 11/07/18 11/07/18 10:50 10:50 10:50 WBC 11.3 H RBC 2.85 L Hgb 8.7 L Hct 25.3 L D MCV MCHC RDW Plt Count Lymph % (Auto) 9.7 L Porter % (Auto) Lymph # 1.1 L Porter # Seg Neutrophils % 83.3 H Seg Neuts % (Manual) Lymphocytes % (Manual) Monocytes % (Manual) Nucleated RBC % Seg Neutrophils # 9.4 H Seg Neutrophils # Man Lymphocytes # (Manual) Monocytes # (Manual) POC ABG pH POC ABG pCO2 POC ABG pO2 VBG pH Sodium 154 H Potassium 3.2 L Chloride 110.2 H Carbon Dioxide BUN 82 H Creatinine 8.3 H Glucose 186 H POC Glucose 200 H Lactic Acid Calcium 7.3 L Phosphorus Magnesium Direct Bilirubin AST ALT C-Reactive Protein Total Protein Albumin Salicylates Acetaminophen Heparin-induced Plt Ab 11/07/18 11/07/18 11/07/18 12:00 12:05 13:13 WBC RBC Hgb Hct MCV MCHC RDW Plt Count Lymph % (Auto) [place] % (Auto) Lymph # [place] # Seg Neutrophils % Seg Neuts % (Manual) Lymphocytes % (Manual) Monocytes % (Manual) Nucleated RBC % Seg Neutrophils # Seg Neutrophils # Man Lymphocytes # (Manual) Monocytes # (Manual) POC ABG pH POC ABG pCO2 POC ABG pO2 VBG pH Sodium Potassium Chloride Carbon Dioxide BUN Creatinine Glucose POC Glucose 179 H 190 H Lactic Acid 2.50 H* Calcium Phosphorus Magnesium Direct Bilirubin AST ALT C-Reactive Protein Total Protein Albumin Salicylates Acetaminophen Heparin-induced Plt Ab 11/07/18 11/07/18 11/07/18 13:20 14:05 15:18 WBC RBC Hgb Hct MCV MCHC RDW Plt Count Lymph % (Auto) [place] % (Auto) Lymph # [place] # Seg Neutrophils % Seg Neuts % (Manual) Lymphocytes % (Manual) Monocytes % (Manual) Nucleated RBC % Seg Neutrophils # Seg Neutrophils # Man Lymphocytes # (Manual) Monocytes # (Manual) POC ABG pH POC ABG pCO2 POC ABG pO2 VBG pH Sodium Potassium 3.1 L Chloride Carbon Dioxide BUN 50 H Creatinine 5.0 H Glucose 176 H POC Glucose 189 H 215 H Lactic Acid Calcium 7.4 L Phosphorus Magnesium Direct Bilirubin AST ALT C-Reactive Protein Total Protein Albumin Salicylates Acetaminophen Heparin-induced Plt Ab 11/07/18 11/07/18 11/07/18 16:25 17:37 23:23 WBC RBC Hgb Hct MCV MCHC RDW Plt Count Lymph % (Auto) Porter % (Auto) Lymph # [place] # Seg Neutrophils % Seg Neuts % (Manual) Lymphocytes % (Manual) Monocytes % (Manual) Nucleated RBC % Seg Neutrophils # Seg Neutrophils # Man Lymphocytes # (Manual) Monocytes # (Manual) POC ABG pH POC ABG pCO2 POC ABG pO2 VBG pH Sodium Potassium Chloride Carbon Dioxide BUN Creatinine Glucose POC Glucose 180 H 215 H 234 H Lactic Acid Calcium Phosphorus Magnesium Direct Bilirubin AST ALT C-Reactive Protein Total Protein Albumin Salicylates Acetaminophen Heparin-induced Plt Ab 11/08/18 11/08/18 11/08/18 04:17 04:23 04:23 WBC RBC 2.98 L Hgb 9.3 L Hct 26.7 L MCV MCHC 35 H RDW Plt Count 130 L Lymph % (Auto) Porter % (Auto) Lymph # Porter # Seg Neutrophils % 80.3 H Seg Neuts % (Manual) Lymphocytes % (Manual) Monocytes % (Manual) Nucleated RBC % Seg Neutrophils # 7.8 H Seg Neutrophils # Man Lymphocytes # (Manual) Monocytes # (Manual) POC ABG pH 7.520 H POC ABG pCO2 POC ABG pO2 111 H VBG pH Sodium Potassium 3.0 L Chloride Carbon Dioxide BUN 44 H Creatinine 6.3 H Glucose 245 H POC Glucose Lactic Acid Calcium 7.3 L Phosphorus Magnesium Direct Bilirubin AST ALT C-Reactive Protein Total Protein Albumin Salicylates Acetaminophen Heparin-induced Plt Ab 11/08/18 11/08/18 11/08/18 05:19 08:00 08:00 WBC RBC Hgb Hct MCV MCHC RDW Plt Count Lymph % (Auto) [place] % (Auto) Lymph # [place] # Seg Neutrophils % Seg Neuts % (Manual) Lymphocytes % (Manual) Monocytes % (Manual) Nucleated RBC % Seg Neutrophils # Seg Neutrophils # Man Lymphocytes # (Manual) Monocytes # (Manual) POC ABG pH POC ABG pCO2 POC ABG pO2 VBG pH Sodium Potassium Chloride Carbon Dioxide BUN Creatinine Glucose POC Glucose 253 H Lactic Acid 2.70 H* Calcium Phosphorus Magnesium Direct Bilirubin 0.3 H AST 932 H ALT 582 H C-Reactive Protein Total Protein 5.4 L Albumin 2.6 L Salicylates Acetaminophen Heparin-induced Plt Ab 11/08/18 11/08/18 11/08/18 11:36 17:51 21:59 WBC RBC Hgb Hct MCV MCHC RDW Plt Count Lymph % (Auto) Porter % (Auto) Lymph # [place] # Seg Neutrophils % Seg Neuts % (Manual) Lymphocytes % (Manual) Monocytes % (Manual) Nucleated RBC % Seg Neutrophils # Seg Neutrophils # Man Lymphocytes # (Manual) Monocytes # (Manual) POC ABG pH 7.459 H POC ABG pCO2 POC ABG pO2 108 H VBG pH Sodium Potassium Chloride Carbon Dioxide BUN Creatinine Glucose POC Glucose 197 H Lactic Acid Calcium Phosphorus Magnesium Direct Bilirubin AST ALT C-Reactive Protein Total Protein Albumin Salicylates Acetaminophen Heparin-induced Plt Ab Positive H 11/08/18 11/09/18 11/09/18 23:28 00:39 02:20 WBC RBC Hgb Hct MCV MCHC RDW Plt Count Lymph % (Auto) [place] % (Auto) Lymph # [place] # Seg Neutrophils % Seg Neuts % (Manual) Lymphocytes % (Manual) Monocytes % (Manual) Nucleated RBC % Seg Neutrophils # Seg Neutrophils # Man Lymphocytes # (Manual) Monocytes # (Manual) POC ABG pH POC ABG pCO2 POC ABG pO2 VBG pH Sodium Potassium Chloride Carbon Dioxide BUN Creatinine Glucose POC Glucose 418 H 471 H 254 H Lactic Acid Calcium Phosphorus Magnesium Direct Bilirubin AST ALT C-Reactive Protein Total Protein Albumin Salicylates Acetaminophen Heparin-induced Plt Ab 06/08/2511/09/18 11/09/18 03:48 06:02 06:02 WBC RBC 2.95 L Hgb 9.2 L Hct 26.7 L MCV MCHC RDW Plt Count 101 L Lymph % (Auto) Porter % (Auto) Lymph # Porter # Seg Neutrophils % Seg Neuts % (Manual) Lymphocytes % (Manual) Monocytes % (Manual) Nucleated RBC % Seg Neutrophils # Seg Neutrophils # Man Lymphocytes # (Manual) Monocytes # (Manual) POC ABG pH POC ABG pCO2 POC ABG pO2 108 H VBG pH Sodium 150 H Potassium Chloride 108.3 H Carbon Dioxide BUN 44 H Creatinine 7.7 H Glucose 102 H POC Glucose Lactic Acid Calcium 7.2 L Phosphorus Magnesium Direct Bilirubin AST 554 H ALT 461 H C-Reactive Protein Total Protein 5.1 L Albumin 2.6 L Salicylates Acetaminophen Heparin-induced Plt Ab 11/09/18 11/09/18 11/09/18 17:49 18:49 23:32 WBC RBC Hgb Hct MCV MCHC RDW Plt Count Lymph % (Auto) [place] % (Auto) Lymph # [place] # Seg Neutrophils % Seg Neuts % (Manual) Lymphocytes % (Manual) Monocytes % (Manual) Nucleated RBC % Seg Neutrophils # Seg Neutrophils # Man Lymphocytes # (Manual) Monocytes # (Manual) POC ABG pH POC ABG pCO2 46.2 H POC ABG pO2 VBG pH Sodium Potassium Chloride Carbon Dioxide BUN Creatinine Glucose POC Glucose 184 H 150 H Lactic Acid Calcium Phosphorus Magnesium Direct Bilirubin AST ALT C-Reactive Protein Total Protein Albumin Salicylates Acetaminophen Heparin-induced Plt Ab 11/10/18 11/10/18 11/10/18 02:52 05:00 05:00 WBC RBC 2.95 L Hgb 8.9 L Hct 26.6 L MCV MCHC RDW Plt Count 100 L Lymph % (Auto) Porter % (Auto) Lymph # Porter # Seg Neutrophils % Seg Neuts % (Manual) Lymphocytes % (Manual) Monocytes % (Manual) 8.0 H Nucleated RBC % Seg Neutrophils # Seg Neutrophils # Man Lymphocytes # (Manual) Monocytes # (Manual) POC ABG pH POC ABG pCO2 POC ABG pO2 VBG pH Sodium Potassium Chloride Carbon Dioxide BUN 33 H Creatinine 6.8 H Glucose 251 H POC Glucose 186 H Lactic Acid Calcium 7.3 L Phosphorus Magnesium Direct Bilirubin AST ALT C-Reactive Protein Total Protein Albumin Salicylates Acetaminophen Heparin-induced Plt Ab 11/10/18 11/10/18 11/10/18 05:16 11:47 17:32 WBC RBC Hgb Hct MCV MCHC RDW Plt Count Lymph % (Auto) [place] % (Auto) Lymph # [place] # Seg Neutrophils % Seg Neuts % (Manual) Lymphocytes % (Manual) Monocytes % (Manual) Nucleated RBC % Seg Neutrophils # Seg Neutrophils # Man Lymphocytes # (Manual) Monocytes # (Manual) POC ABG pH POC ABG pCO2 POC ABG pO2 VBG pH Sodium Potassium Chloride Carbon Dioxide BUN Creatinine Glucose POC Glucose 242 H 261 H 194 H Lactic Acid Calcium Phosphorus Magnesium Direct Bilirubin AST ALT C-Reactive Protein Total Protein Albumin Salicylates Acetaminophen Heparin-induced Plt Ab 11/10/18 11/11/18 11/11/18 23:39 00:26 04:24 WBC RBC 2.98 L Hgb 9.1 L Hct 27.4 L MCV MCHC RDW Plt Count 114 L Lymph % (Auto) [place] % (Auto) Lymph # [place] # Seg Neutrophils % Seg Neuts % (Manual) Lymphocytes % (Manual) Monocytes % (Manual) 10.0 H Nucleated RBC % Seg Neutrophils # Seg Neutrophils # Man Lymphocytes # (Manual) Monocytes # (Manual) 1.0 H POC ABG pH POC ABG pCO2 POC ABG pO2 VBG pH Sodium Potassium Chloride Carbon Dioxide BUN Creatinine Glucose POC Glucose 60 L 124 H Lactic Acid Calcium Phosphorus Magnesium Direct Bilirubin AST ALT C-Reactive Protein Total Protein Albumin Salicylates Acetaminophen Heparin-induced Plt Ab 11/11/18 11/11/18 11/11/18 04:24 05:27 05:31 WBC RBC Hgb Hct MCV MCHC RDW Plt Count Lymph % (Auto) [place] % (Auto) Lymph # [place] # Seg Neutrophils % Seg Neuts % (Manual) Lymphocytes % (Manual) Monocytes % (Manual) Nucleated RBC % Seg Neutrophils # Seg Neutrophils # Man Lymphocytes # (Manual) Monocytes # (Manual) POC ABG pH POC ABG pCO2 48.8 H POC ABG pO2 109 H VBG pH Sodium Potassium Chloride Carbon Dioxide BUN 23 H Creatinine 5.5 H Glucose 147 H POC Glucose 172 H Lactic Acid Calcium 7.9 L Phosphorus Magnesium Direct Bilirubin AST 152 H ALT 247 H C-Reactive Protein Total Protein Albumin 2.3 L Salicylates Acetaminophen Heparin-induced Plt Ab 06/05/19 06/05/19 06/05/19 12:11 17:12 23:41 WBC RBC Hgb Hct MCV MCHC RDW Plt Count Lymph % (Auto) [place] % (Auto) Lymph # [place] # Seg Neutrophils % Seg Neuts % (Manual) Lymphocytes % (Manual) Monocytes % (Manual) Nucleated RBC % Seg Neutrophils # Seg Neutrophils # Man Lymphocytes # (Manual) Monocytes # (Manual) POC ABG pH POC ABG pCO2 POC ABG pO2 VBG pH Sodium Potassium Chloride Carbon Dioxide BUN Creatinine Glucose POC Glucose 343 H 188 H 145 H Lactic Acid Calcium Phosphorus Magnesium Direct Bilirubin AST ALT C-Reactive Protein Total Protein Albumin Salicylates Acetaminophen Heparin-induced Plt Ab 11/12/18 11/12/18 11/12/18 00:11 04:44 04:44 WBC RBC 2.91 L Hgb 9.0 L Hct 26.9 L MCV MCHC RDW Plt Count Lymph % (Auto) 12.7 L [place] % (Auto) 14.9 H Lymph # 0.8 L [place] # 1.0 H Seg Neutrophils % 71.2 H Seg Neuts % (Manual) Lymphocytes % (Manual) Monocytes % (Manual) Nucleated RBC % Seg Neutrophils # Seg Neutrophils # Man Lymphocytes # (Manual) Monocytes # (Manual) POC ABG pH POC ABG pCO2 POC ABG pO2 VBG pH Sodium Potassium Chloride Carbon Dioxide BUN 22 H Creatinine 5.0 H Glucose 288 H POC Glucose 151 H Lactic Acid Calcium Phosphorus Magnesium Direct Bilirubin AST 88 H ALT 187 H C-Reactive Protein Total Protein Albumin 2.9 L Salicylates Acetaminophen Heparin-induced Plt Ab 11/12/18 11/12/18 11/12/18 11:48 12:28 17:13 WBC RBC Hgb Hct MCV MCHC RDW Plt Count Lymph % (Auto) [place] % (Auto) Lymph # [place] # Seg Neutrophils % Seg Neuts % (Manual) Lymphocytes % (Manual) Monocytes % (Manual) Nucleated RBC % Seg Neutrophils # Seg Neutrophils # Man Lymphocytes # (Manual) Monocytes # (Manual) POC ABG pH POC ABG pCO2 POC ABG pO2 VBG pH Sodium Potassium Chloride Carbon Dioxide BUN Creatinine Glucose POC Glucose 414 H 437 H 251 H Lactic Acid Calcium Phosphorus Magnesium Direct Bilirubin AST ALT C-Reactive Protein Total Protein Albumin Salicylates Acetaminophen Heparin-induced Plt Ab 11/13/18 11/13/18 11/13/18 00:43 04:14 04:14 WBC RBC 2.62 L Hgb 8.0 L Hct 24.0 L MCV MCHC RDW Plt Count Lymph % (Auto) [place] % (Auto) 15.8 H Lymph # [place] # 0.9 H Seg Neutrophils % Seg Neuts % (Manual) Lymphocytes % (Manual) Monocytes % (Manual) Nucleated RBC % Seg Neutrophils # Seg Neutrophils # Man Lymphocytes # (Manual) Monocytes # (Manual) POC ABG pH POC ABG pCO2 POC ABG pO2 VBG pH Sodium Potassium Chloride Carbon Dioxide BUN 32 H Creatinine 6.9 H Glucose 190 H POC Glucose 149 H Lactic Acid Calcium Phosphorus Magnesium Direct Bilirubin AST ALT C-Reactive Protein Total Protein Albumin Salicylates Acetaminophen Heparin-induced Plt Ab 11/13/18 11/13/18 11/13/18 05:53 10:40 12:05 WBC RBC Hgb Hct MCV MCHC RDW Plt Count Lymph % (Auto) [place] % (Auto) Lymph # [place] # Seg Neutrophils % Seg Neuts % (Manual) Lymphocytes % (Manual) Monocytes % (Manual) Nucleated RBC % Seg Neutrophils # Seg Neutrophils # Man Lymphocytes # (Manual) Monocytes # (Manual) POC ABG pH POC ABG pCO2 POC ABG pO2 VBG pH Sodium Potassium Chloride Carbon Dioxide BUN Creatinine Glucose POC Glucose 270 H 405 H 361 H Lactic Acid Calcium Phosphorus Magnesium Direct Bilirubin AST ALT C-Reactive Protein Total Protein Albumin Salicylates Acetaminophen Heparin-induced Plt Ab 11/13/18 11/13/18 11/14/18 18:48 23:55 04:57 WBC RBC 2.75 L Hgb 8.3 L Hct 25.2 L MCV MCHC RDW Plt Count Lymph % (Auto) [place] % (Auto) 15.8 H Lymph # 0.9 L [place] # 0.9 H Seg Neutrophils % Seg Neuts % (Manual) Lymphocytes % (Manual) Monocytes % (Manual) Nucleated RBC % Seg Neutrophils # Seg Neutrophils # Man Lymphocytes # (Manual) Monocytes # (Manual) POC ABG pH POC ABG pCO2 POC ABG pO2 VBG pH Sodium Potassium Chloride Carbon Dioxide BUN Creatinine Glucose POC Glucose 202 H 254 H Lactic Acid Calcium Phosphorus Magnesium Direct Bilirubin AST ALT C-Reactive Protein Total Protein Albumin Salicylates Acetaminophen Heparin-induced Plt Ab 11/14/18 11/14/18 11/14/18 04:57 05:33 11:37 WBC RBC Hgb Hct MCV MCHC RDW Plt Count Lymph % (Auto) [place] % (Auto) Lymph # [place] # Seg Neutrophils % Seg Neuts % (Manual) Lymphocytes % (Manual) Monocytes % (Manual) Nucleated RBC % Seg Neutrophils # Seg Neutrophils # Man Lymphocytes # (Manual) Monocytes # (Manual) POC ABG pH POC ABG pCO2 POC ABG pO2 VBG pH Sodium 136 L Potassium Chloride 96.7 L Carbon Dioxide BUN 25 H Creatinine 5.3 H Glucose 235 H POC Glucose 242 H 272 H Lactic Acid Calcium Phosphorus Magnesium Direct Bilirubin AST ALT C-Reactive Protein Total Protein Albumin Salicylates Acetaminophen Heparin-induced Plt Ab Chest x-ray: other (none ordered) Allied health notes reviewed: nursing
[2018-11-14] MEDS ORDERED: NACL 0.9% 1000 ML 2,000 ML ONE (21:44)
[2018-11-15] MEDS: HumuLIN R SUB-Q SCH ×4 (00:11→18:00)
[2018-11-15 05:09] LABS: Basophils % (Auto) 0.4 % (0.0-1.8); Eosinophils # (Auto) 0.1 K/mm3 (0.0-0.4); Eosinophils % (Auto) 1.3 % (0.0-4.3); Hematocrit 25.4 % (35.5-45.6); Hemoglobin 8.5 gm/dl (11.8-15.2); Lymphocytes # (Auto) 1.3 K/mm3 (1.2-5.4); Lymphocytes % (Auto) 17.3 % (13.4-35.0); Mean Corpuscular HGB Conc 34 % (32-34); Mean Corpuscular Volume 92 fl (84-94); Monocytes # (Auto) 1.1 K/mm3 (0.0-0.8); Monocytes % (Auto) 14.5 % (0.0-7.3); Platelet Count 356 K/mm3 (140-440); Red Blood Count 2.76 M/mm3 (3.65-5.03); Red Cell Distribution Width 14.1 % (13.2-15.2)
[2018-11-15 05:31] LABS: Alanine Aminotransferase 69 units/L (7-56); Albumin 2.7 g/dL (3.9-5); BUN/Creatinine Ratio 4; Blood Urea Nitrogen 21 mg/dL (9-20); Calcium 8.4 mg/dL (8.4-10.2); Hemolysis Index 2
[2018-11-15] MEDS: fentaNYL DRIP Premix 2,000 MCG/100 ML BAG IV SCH (05:36)
[2018-11-15] MEDS: LOPRESSOR PO SCH ×4 (05:37→21:29)
[2018-11-15] MEDS: APRESOLINE PO SCH ×3 (05:38→21:22)
--- NOTE | 2018-11-15 09:26 | Progress Note ---
Assessment and Plan Assessment and plan: --Acute Hypoxic Respiratory failure; on ventilatory support weaning parameters, wean as tolerated and extubate Possible trach and PEG if no improvement --S/P Cardiopulmonary Arrest-unknown etiology ventilatory support, nebulizers --Anoxic Encephalopathy; neurology following, supportive care Poor prognosis, follow EEG --Accelerated hypertension; controlled today continue current antihypertensives and when necessary medications --DKA-corrected; uncontrolled blood sugars Accu-Chek sliding scale coverage and ADA diet, 70/30 insulin, adjust the dose Dose as needed --Severe metabolic Acidosis; multifactorial closely monitor --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 Plan of care is reviewed with the patient's mother in [facility] Critical care time 33 minutes Brief History; 42-year-old male patient with significant history of end-stage renal disease on hemodialysis hypertension and diabetes mellitus noncompliant with medications was found by family on the floor unconscious in his feces and urine, was brought to the emergency room, noted to be in DKA and diabetic coma.,Hyperkalemia and severe acidosis. Patient also had wide QRS with nonspecific T-wave changes, very high transaminases possible shock liver and was evaluated by cardiology patient went into cardiac arrest and CPR was done per ACLS protocol, patient was intubated on ventilatory support and transferred to ICU. 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 History Interval history: Patient seen and examined medical records reviewed Remains intubated on ventilatory support On the meantime meters Vital signs noted Hospitalist Physical - Constitutional Vitals: Temp Pulse Resp BP Pulse Ox 98.5 F 80 15 132/81 99 11/15/18 04:00 11/15/18 06:30 11/15/18 06:30 11/15/18 06:30 11/15/18 06:30 General appearance: Present: no acute distress, well-nourished, other (intubated on vent) - EENT Eyes: Present: PERRL, EOM intact - Neck Neck: Present: supple, normal ROM - Respiratory Respiratory effort: normal Respiratory: bilateral: diminished, rhonchi, negative: rales, wheezing - Cardiovascular Heart Sounds: Present: S1 & S2 - Extremities Extremities: no ischemia, pulses intact Peripheral Pulses: within normal limits - Abdominal General gastrointestinal: soft, non-tender, non-distended, normal bowel sounds - Integumentary Integumentary: Present: clear, warm - Psychiatric Psychiatric: other (un responsive intubated on vent) - Neurologic Neurologic: other (unresponsive intubated on vent ) Results - Labs CBC & Chem 7: 11/15/18 04:50 11/15/18 04:50 Labs: Laboratory Last Values WBC 7.5 K/mm3 (4.5-11.0) 11/15/18 04:50 RBC 2.76 M/mm3 (3.65-5.03) L 11/15/18 04:50 Hgb 8.5 gm/dl (11.8-15.2) L 11/15/18 04:50 Hct 25.4 % (35.5-45.6) L 11/15/18 04:50 MCV 92 fl (84-94) 11/15/18 04:50 MCH 31 pg (28-32) 11/15/18 04:50 MCHC 34 % (32-34) 11/15/18 04:50 RDW 14.1 % (13.2-15.2) 11/15/18 04:50 Plt Count 356 K/mm3 (140-440) 11/15/18 04:50 Lymph % (Auto) 17.3 % (13.4-35.0) 11/15/18 04:50 [place] % (Auto) 14.5 % (0.0-7.3) H 11/15/18 04:50 Eos % (Auto) 1.3 % (0.0-4.3) 11/15/18 04:50 Baso % (Auto) 0.4 % (0.0-1.8) 11/15/18 04:50 Lymph # 1.3 K/mm3 (1.2-5.4) 11/15/18 04:50 [place] # 1.1 K/mm3 (0.0-0.8) H 11/15/18 04:50 Eos # 0.1 K/mm3 (0.0-0.4) 11/15/18 04:50 Baso # 0.0 K/mm3 (0.0-0.1) 11/15/18 04:50 Add Manual Diff Complete 11/11/18 04:24 Total Counted 100 11/11/18 04:24 Seg Neutrophils % 66.5 % (40.0-70.0) 11/15/18 04:50 Seg Neuts % (Manual) 66.0 % (40.0-70.0) 11/11/18 04:24 0 % 11/11/18 04:24 22.0 % (13.4-35.0) 11/11/18 04:24 Reactive Lymphs % (Man) 0 % 11/11/18 04:24 10.0 % (0.0-7.3) H 11/11/18 04:24 2.0 % (0.0-4.3) 11/11/18 04:24 0 % (0.0-1.8) 11/11/18 04:24 0 % 11/11/18 04:24 0 % 11/11/18 04:24 0 % 11/11/18 04:24 0 % 11/11/18 04:24 Nucleated RBC % Not Reportable 11/11/18 04:24 Seg Neutrophils # 5.0 K/mm3 (1.8-7.7) 11/15/18 04:50 Seg Neutrophils # Man 6.9 K/mm3 (1.8-7.7) 11/11/18 04:24 Band Neutrophils # 0.0 K/mm3 11/11/18 04:24 2.3 K/mm3 (1.2-5.4) 11/11/18 04:24 Abs React Lymphs (Man) 0.0 K/mm3 11/11/18 04:24 1.0 K/mm3 (0.0-0.8) H 11/11/18 04:24 0.2 K/mm3 (0.0-0.4) 11/11/18 04:24 0.0 K/mm3 (0.0-0.1) 11/11/18 04:24 0.0 K/mm3 11/11/18 04:24 0.0 K/mm3 11/11/18 04:24 0.0 K/mm3 11/11/18 04:24 Blast Cells # 0.0 K/mm3 11/11/18 04:24 WBC Morphology Not Reportable 11/11/18 04:24 Hypersegmented Neuts Not Reportable 11/11/18 04:24 Hyposegmented Neuts Not Reportable 11/11/18 04:24 Hypogranular Neuts Not Reportable 11/11/18 04:24 Not Reportable 11/11/18 04:24 Not Reportable 11/11/18 04:24 Not Reportable 11/11/18 04:24 Not Reportable 11/11/18 04:24 Not Reportable 11/11/18 04:24 Not Reportable 11/11/18 04:24 Consistent w auto 11/11/18 04:24 Not Reportable 11/11/18 04:24 Plt Clumps, EDTA Not Reportable 11/11/18 04:24 Not Reportable 11/11/18 04:24 Not Reportable 11/11/18 04:24 Not Reportable 11/11/18 04:24 Plt Morphology Comment Not Reportable 11/11/18 04:24 RBC Morphology Not Reportable 11/11/18 04:24 Dimorphic RBCs Not Reportable 11/11/18 04:24 Not Reportable 11/11/18 04:24 Not Reportable 11/11/18 04:24 Not Reportable 11/11/18 04:24 1+ 11/11/18 04:24 Not Reportable 11/11/18 04:24 Not Reportable 11/11/18 04:24 Not Reportable 11/11/18 04:24 Not Reportable 11/11/18 04:24 Not Reportable 11/11/18 04:24 Not Reportable 11/11/18 04:24 Not Reportable 11/11/18 04:24 Not Reportable 11/11/18 04:24 Not Reportable 11/11/18 04:24 Not Reportable 11/11/18 04:24 Not Reportable 11/11/18 04:24 Not Reportable 11/11/18 04:24 Not Reportable 11/11/18 04:24 Not Reportable 11/11/18 04:24 Not Reportable 11/11/18 04:24 Acanthocytes (Spur) Not Reportable 11/11/18 04:24 Rouleaux Not Reportable 11/11/18 04:24 Not Reportable 11/11/18 04:24 Not Reportable 11/11/18 04:24 Not Reportable 11/11/18 04:24 Not Reportable 11/11/18 04:24 Hem Pathologist Commnt No 11/11/18 04:24 Heparin Anti-Xa, Unfract Negative (Negative) 11/08/18 21:59 POC ABG pH 7.418 (7.35-7.45) 11/11/18 05:31 POC ABG pCO2 48.8 (35-45) H 11/11/18 05:31 POC ABG pO2 109 (80-105) H 11/11/18 05:31 POC ABG HCO3 31.5 (22-26 mml/L) 11/11/18 05:31 POC ABG Total CO2 33 (23-27mmol/L) 11/11/18 05:31 POC ABG O2 Sat 98 11/11/18 05:31 POC ABG Base Excess 7 ((-2) - (+3)mmol/L) 11/11/18 05:31 VBG pH 6.982 (7.320-7.420) L* 11/06/18 13:22 25 % 11/11/18 05:31 Sodium 138 mmol/L (137-145) 11/15/18 04:50 Potassium 3.9 mmol/L (3.6-5.0) 11/15/18 04:50 Chloride 95.2 mmol/L (98-107) L 11/15/18 04:50 Carbon Dioxide 30 mmol/L (22-30) 11/15/18 04:50 17 mmol/L 11/15/18 04:50 BUN 21 mg/dL (9-20) H 11/15/18 04:50 4.8 mg/dL (0.8-1.5) H 11/15/18 04:50 Estimated GFR 16 ml/min 11/15/18 04:50 4 % 11/15/18 04:50 Glucose 126 mg/dL (75-100) H 11/15/18 04:50 POC Glucose 150 (70-105) H 11/15/18 06:01 10.1 % (4-6) H 11/15/18 04:50 Lactic Acid 2.70 mmol/L (0.7-2.0) H* 11/08/18 08:00 Calcium 8.4 mg/dL (8.4-10.2) 11/15/18 04:50 Phosphorus 3.50 mg/dL (2.5-4.5) 11/12/18 04:44 Magnesium 2.00 mg/dL (1.7-2.3) 11/12/18 04:44 < 0.20 mg/dL (0.1-1.2) 11/15/18 04:50 0.3 mg/dL (0-0.2) H 11/08/18 08:00 0.3 mg/dL 11/08/18 08:00 AST 32 units/L (5-40) 11/15/18 04:50 ALT 69 units/L (7-56) H 11/15/18 04:50 100 units/L (35-129) 11/15/18 04:50 58 units/L (55-170) 11/06/18 09:02 0.027 ng/mL (0.00-0.029) 11/06/18 09:02 1.90 mg/dL (0.00-1.30) H 11/06/18 19:30 7.1 g/dL (6.3-8.2) 11/15/18 04:50 2.7 g/dL (3.9-5) L 11/15/18 04:50 0.6 % 11/15/18 04:50 See scanned result 11/08/18 21:59 Straw (Yellow) 11/06/18 10:38 Clear (Clear) 11/06/18 10:38 5.0 (5.0-7.0) 11/06/18 10:38 Ur Specific [place] 1.014 (1.003-1.030) 11/06/18 10:38 100 mg/dl mg/dL (Negative) 11/06/18 10:38 >=500 mg/dL (Negative) 11/06/18 10:38 20 mg/dL (Negative) 11/06/18 10:38 Sm (Negative) 11/06/18 10:38 Neg (Negative) 11/06/18 10:38 Neg (Negative) 11/06/18 10:38 < 2.0 mg/dL (<2.0) 11/06/18 10:38 Ur Leukocyte Esterase Neg (Negative) 11/06/18 10:38 < 1.0 /HPF (0.0-6.0) 11/06/18 10:38 2.0 /HPF (0.0-6.0) 11/06/18 10:38 U Epithel Cells (Auto) < 1.0 /HPF (0-13.0) 11/06/18 10:38 Random Vancomycin 13.2 ug/mL (0-40.0) 11/08/18 04:23 Salicylates < 0.3 mg/dL (2.8-20.0) L 11/06/18 09:02 Presumptive negative 11/06/18 10:38 Presumptive negative 11/06/18 10:38 Acetaminophen < 5.0 ug/mL (10.0-30.0) L 11/06/18 09:02 Ur Barbiturates Screen Presumptive negative 11/06/18 10:38 Ur Phencyclidine Scrn Presumptive negative 11/06/18 10:38 Ur Amphetamines Screen Presumptive negative 11/06/18 10:38 U Benzodiazepines Scrn Presumptive negative 11/06/18 10:38 Presumptive negative 11/06/18 10:38 U Marijuana (THC) Screen Presumptive positive 11/06/18 10:38 Disclamer 11/06/18 10:38 Plasma/Serum Alcohol < 0.01 % (0-0.07) 11/06/18 09:02 Heparin-induced Plt Ab Positive (Negative) H 11/08/18 21:59 UF Heparin High Dose 0 % Release 11/08/18 21:59 DEBORA UFH Low Dose 0.1 0 % Release 11/08/18 21:59 [place]A UFH Low Dose 0.5 0 % Release 11/08/18 21:59 Hepatitis A IgM Ab Non-reactive (NonReactive) 11/07/18 13:20 Hep Bs Antigen Non-reactive (Negative) 11/07/18 13:20 Hep B Core IgM Ab Non-reactive (NonReactive) 11/07/18 13:20 Non-reactive (NonReactive) 11/07/18 13:20 Blood Type A POSITIVE 11/06/18 14:15 Antibody Screen Not Reportable 11/06/18 14:15 JANIS Antibody Screen Negative 11/06/18 14:15 Active Medications - Current Medications Current Medications: Generic Name Dose Route Start Last Admin Trade Name Freq PRN Reason Stop Dose Admin Acetaminophen 650 mg 11/06/18 22:22 11/11/18 07:33 Tylenol FEEDTUBE 650 mg Q6H PRN Administration Fever >101 Lipase/Protease/Amylase 1 each 11/08/18 18:[address] 10,500 Unit FEEDTUBE PRN PRN For Clogged Feeding Tube Apixaban 2.5 mg 11/13/18 10:00 11/14/18 22:49 Eliquis FEEDTUBE 2.5 mg BID MARIAJOSE Administration Chlorpromazine HCl 10 mg 11/07/18 08:07 11/10/18 05:36 Thorazine PO 10 mg Q6H PRN Administration Hiccups Clonazepam 0.5 mg 11/12/18 16:49 11/13/18 23:10 Klonopin PO 0.5 mg Q12H PRN Administration myoclonic jerks Dextrose 50 ml 11/07/18 16:46 11/10/18 23:43 D50w (25gm) Syringe IV 50 ml PRN PRN Administration Hypoglycemia Fentanyl 50 mcg 11/06/18 08:37 Sublimaze IV Q10MIN PRN ANALGESIA Hydralazine HCl 10 mg 11/08/18 00:56 11/14/18 08:34 Apresoline IV 10 mg Q4H PRN Administration Hypertension Hydralazine HCl 50 mg 11/14/18 09:16 11/15/18 05:38 Apresoline PO 50 mg Q8HR MARIAJOSE Administration Hydrophilic Ointment 1 applic 11/06/18 08:26 11/10/18 19:52 Vaseline Lip Therapy TP 1 applic Q2HR PRN Administration Dry Lips Fentanyl Citrate 2,000 mcg in 100 mls @ 4.309 mls/hr 11/06/18 10:00 11/15/18 08:58 Fentanyl Drip Premix IV 0 mcg/kg/hr TITR MARIAJOSE 0 mls/hr Titration Protocol 1 MCG/KG/HR Nicardipine HCl 50 mg/ Sodium 250 mls @ 25 mls/hr 11/12/18 13:00 Chloride IV TITR MARIAJOSE Protocol 5 MG/HR Levetiracetam 750 mg/ Dextrose 107.5 mls @ 400 mls/hr 11/12/18 22:00 11/14/18 22:49 IV 400 mls/hr Q12HR MARIAJOSE Administration Sodium Chloride 100 mls @ 999 mls/hr 11/14/18 11:33 Nacl 0.9% IV MARY PRN Hypotension Insulin Human Isoph/Insulin Regular 32 unit 11/14/18 10:18 11/15/18 08:51 Humulin 70/30 SUB-Q 32 unit BIDDIAB MARIAJOSE Administration Insulin Human Regular 0 units 11/07/18 18:00 11/15/18 06:08 Humulin R SUB-Q Not Given Q6HR [facility] Protocol Lansoprazole 30 mg 11/09/18 10:00 11/14/18 22:48 Prevacid Solutab FEEDTUBE 30 mg BID MARIAJOSE Administration Lorazepam 2 mg 11/12/18 08:31 11/13/18 23:10 Ativan IV 2 mg Q4H PRN Administration Agitation Metoprolol Tartrate 50 mg 11/14/18 10:00 11/15/18 05:37 Lopressor PO 50 mg Q6H MARIAJOSE Administration Modafinil 100 mg 11/11/18 10:00 11/14/18 10:51 Provigil PO 100 mg QAM MARIAJOSE Administration Multi-Ingred Cream/Lotion/Oil/Oint 1 applic 11/06/18 08:26 Artificial Tears Ophth Oint OU Q4HR PRN Dry Eye(s) Simple Syrup 15 ml 11/08/18 18:38 Simple Syrup FEEDTUBE PRN PRN Hypoglycemia Simple Syrup 30 ml 11/08/18 18:38 Simple Syrup FEEDTUBE PRN PRN Hypoglycemia Sodium Bicarbonate 325 mg 11/08/18 18:38 Sodium Bicarbonate FEEDTUBE PRN PRN For Clogged Feeding Tube Sodium Chloride 10 ml 11/06/18 22:00 11/14/18 22:58 Sodium Chloride Flush Syringe 10 Ml IV 10 ml BID MARIAJOSE Administration Sodium Chloride 10 ml 11/06/18 12:42 11/13/18 10:30 Sodium Chloride Flush Syringe 10 Ml IV 10 ml PRN PRN Administration LINE FLUSH Tamsulosin HCl 0.4 mg 11/10/18 13:00 11/14/18 10:51 Flomax PO 0.4 mg QDAY MARIAJOSE Administration Nutrition/Malnutrition Assess - Dietary Evaluation Nutrition/Malnutrition Findings: Nutrition Notes Start: 11/07/18 14:40 Freq: Status: Active Protocol: Document 11/11/18 14:40 RM (Rec: 11/11/18 14:53 RM [id number]) Nutrition Notes Initial or Follow up Reassessment Current Diagnosis CKD (stage V CKD),Diabetes Other Pertinent Diagnosis on HD, PAD, Anoxic brain injury, Cardiopulmonary arrest , AMS Current Diet Glucerna 1.2 at 75 ml/hr Labs/Tests Na 142 Pertinent Medications Reviewed Height 6 ft 2 in Weight 108.8 kg [place] Body Weight (kg) 86.36 BMI 30.8 Subjective/Other Information Observed Gucerna 1.2 infusing at goal rate. Percent of energy/protein needs met: 99%/100% Burn Absent Trauma Absent #1 Nutrition Diagnosis Inadequate oral intake Diagnosis Progress(for reassessment Continues documentation) Is patient on ventilator? Yes Is Patient Ambulatory and/or Out of Bed No REE-([facility] [place]-confined to bed) 2477.928 Kcal/Kg value to use for calculation 20 Approximate Energy Requirements Using 2176 kcal/Kg Calculation Used for Recommendations Kcal/kg Additional Notes Protein Needs: 103-172g (1.2- 2g/kg) Fluid Needs: 1 ml/kcal Nutrition Intervention Nutrition Support: Glucerna 1.2 at 75ml/hr 100ml q4h Kcal 2,160 Protein (gm) 108 Fluid (mL) 1,449 Goal #1 Continue to meet at least 80% of kcal and protein needs Anticipated Discharge Needs: Unable to determine at this time Follow-Up By: 11/20/18 Additional Comments Follow for TF tolerance
--- NOTE | 2018-11-15 10:06 | Progress Note ---
Assessment and Plan Stable cardiac status. Continue supportive care. - Patient Problems (1) Cardiopulmonary arrest Current Visit: Yes Status: Acute (2) Respiratory failure Current Visit: Yes Status: Acute Qualifiers: Chronicity: acute Respiratory failure complication: hypoxia Qualified Code(s): J96.01 - Acute respiratory failure with hypoxia (3) Anoxic brain injury Current Visit: Yes Status: Suspected (4) DKA (diabetic ketoacidoses) Current Visit: Yes Status: Acute Qualifiers: Diabetes mellitus type: type 2 Diabetes mellitus complication detail: with coma Qualified Code(s): E11.11 - Type 2 diabetes mellitus with ketoacidosis with coma (5) Cardiomyopathy Current Visit: Yes Status: Acute (6) Hypertension Current Visit: Yes Status: Chronic Qualifiers: Hypertension type: essential hypertension Qualified Code(s): I10 - Essential (primary) hypertension (7) ESRD (end stage renal disease) on dialysis Current Visit: Yes Status: Chronic (8) Anemia Current Visit: Yes Status: Acute Subjective Date of service: 11/15/18 Principal diagnosis: Ac hypoxemic resp failure; DKA; Severe sepsis with shock; ESRD on dialysis Interval history: Opens his eyes with painful stimuli. However, no purposeful response as such. Objective Vital Signs Last Vital Signs Temp 98.5 F 11/15/18 04:00 Pulse 80 11/15/18 06:30 Resp 15 11/15/18 06:30 BP 132/81 11/15/18 06:30 Pulse Ox 99 11/15/18 06:30 - Physical Examination General: No Apparent Distress, Other (intubated, unresponsive) HEENT: Positive: Normocephaly, Mucus Membranes Moist Neck: Positive: neck supple, trachea midline Cardiac: Positive: Reg Rate and Rhythm, S1/S2 Lungs: Positive: clear to auscultation Neuro: Positive: Other (Unresponsive) Abdomen: Positive: Soft, Active Bowel Sounds Skin: Positive: Clear Musculoskeletal: other (No purposeful movement.) Extremities: Present: normal, Cool. Absent: edema - Labs and Meds Cardiac Enzymes 11/15/18 Range/Units 04:50 AST 32 (5-40) units/L CBC 11/15/18 Range/Units 04:50 WBC 7.5 (4.5-11.0) K/mm3 RBC 2.76 L (3.65-5.03) M/mm3 Hgb 8.5 L (11.8-15.2) gm/dl Hct 25.4 L (35.5-45.6) % Plt Count 356 (140-440) K/mm3 Lymph # 1.3 (1.2-5.4) K/mm3 [place] # 1.1 H (0.0-0.8) K/mm3 Eos # 0.1 (0.0-0.4) K/mm3 Baso # 0.0 (0.0-0.1) K/mm3 Comprehensive Metabolic Panel 11/15/18 Range/Units 04:50 Sodium 138 (137-145) mmol/L Potassium 3.9 (3.6-5.0) mmol/L Chloride 95.2 L (98-107) mmol/L Carbon Dioxide 30 (22-30) mmol/L BUN 21 H (9-20) mg/dL Creatinine 4.8 H (0.8-1.5) mg/dL Glucose 126 H (75-100) mg/dL Calcium 8.4 (8.4-10.2) mg/dL AST 32 (5-40) units/L ALT 69 H (7-56) units/L Alkaline Phosphatase 100 (35-129) units/L Total Protein 7.1 (6.3-8.2) g/dL Albumin 2.7 L (3.9-5) g/dL - Imaging and Cardiology EKG: image reviewed Echo: report reviewed (EF 30-35%, mild MR and TR. ) - Telemetry EKG Rhythm: Sinus Rhythm - EKG Sinus rhythms and dysrhythmias: sinus arrest or pause Ventricular dysrhythmias: idioventricular escape rh AV and intraventricular conduction: intraventricular conducti Repolarization changes or abnormalities: Suggestive of hyperkalemia (wide QRS complexes and ST depression evaluation probably all due to severe hyperkalemia. The last EKG does not show any ST elevation but continues to show peaked T waves.) - Allied health notes Allied health notes reviewed: nursing
[2018-11-15] MEDS: KEPPRA 750 MG in D5W 100 ML IV SCH ×2 (11:13→21:21)
[2018-11-15] MEDS: PROVIGIL PO SCH (11:14)
[2018-11-15] MEDS: FLOMAX PO SCH (11:15)
[2018-11-15] MEDS: ELIQUIS FEEDTUBE SCH ×2 (11:15→21:21)
[2018-11-15] MEDS: PREVACID SOLUTAB FEEDTUBE SCH ×2 (11:15→21:21)
[2018-11-15] MEDS: SODIUM CHLORIDE FLUSH SYRINGE 10 ML IV SCH ×2 (11:16→21:23)
--- NOTE | 2018-11-15 11:47 | Progress Note ---
Assessment and Plan Acute Kidney Injury secondary to ischemic ATN from hypotension, cardiac arrest, in setting of underlying hx CKD 4: Severe Renal Failure, requiring hemodialysis initiation: S/P High Anion Gap Metabolic Acidosis with elevated lactic acidosis with DKA: S/P Hyperkalemia: S/P Hyperphosphatemia: Hypernatremia: Hypokalemia, Resolving: - s/p HD yesterday, no HD today. - Strict monitoring of I/O's - Hypernatremia- On free water flushes of 250 ml every 4 hours via NG tube - Monitor BMP daily - Renally dose medications - Avoid Nephrotoxic agents - Obtain daily weights - Salgado Catheter: Yes - Assess dialysis needs daily S/p Cardiopulmonary arrest. STEMI: Hypoxic respiratory failure: -S/P CPR and ACLS protocol -Now off pressor support -Cardiology on board -Intubated on Vent. 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 per neurology -On IV Keppra -As per Neurology Bran Young MD [phone] Subjective Date of service: 11/15/18 Principal diagnosis: Ac hypoxemic resp failure; DKA; Severe sepsis with shock; ESRD on dialysis Interval history: s/p HD yesterday. Objective - Exam Narrative Exam: General appearance: well-developed, sedated on ventilator, intubated EENT: ATNC, PERRL Neck: no JVD, supple Respiratory: Present: Decreased Breath Sounds Cardiology: tachycardia, S1S2 Gastrointestinal: normoactive bowel sounds Integumentary: warm and dry Neurologic: alert and oriented x3 Musculoskeletal: other (trace edema to feet) - Vital Signs Vital signs: Vital Signs - 12hr 11/15/18 11/15/18 11/15/18 00:00 00:24 00:30 Temperature 97.9 F Pulse Rate 85 86 87 Pulse Rate [ 85 From Monitor] Respiratory 20 20 Rate Blood Pressure 143/87 145/63 148/97 O2 Sat by Pulse 100 99 100 Oximetry 11/15/18 11/15/18 11/15/18 01:00 01:30 02:00 Temperature Pulse Rate 87 87 92 H Pulse Rate [ From Monitor] Respiratory 20 20 20 Rate Blood Pressure 146/87 154/88 153/85 O2 Sat by Pulse 100 100 100 Oximetry 11/15/18 11/15/18 11/15/18 02:30 03:00 03:19 Temperature Pulse Rate 91 H 93 H 100 H Pulse Rate [ From Monitor] Respiratory 20 20 Rate Blood Pressure 142/80 155/83 143/54 O2 Sat by Pulse 100 100 100 Oximetry 11/15/18 11/15/18 11/15/18 03:27 03:30 04:00 Temperature 98.5 F Pulse Rate 86 93 H 92 H Pulse Rate [ 82 From Monitor] Respiratory 20 20 Rate Blood Pressure 137/74 141/83 O2 Sat by Pulse 100 100 Oximetry 11/15/18 11/15/18 11/15/18 04:30 05:00 05:30 Temperature Pulse Rate 106 H 90 93 H Pulse Rate [ From Monitor] Respiratory 14 19 8 L Rate Blood Pressure 211/123 139/75 162/85 O2 Sat by Pulse 98 100 99 Oximetry 11/15/18 11/15/18 11/15/18 05:37 06:00 06:30 Temperature Pulse Rate 93 H 90 80 Pulse Rate [ From Monitor] Respiratory 15 15 Rate Blood Pressure 162/85 147/76 132/81 O2 Sat by Pulse 99 99 Oximetry 11/15/18 11/15/18 11/15/18 07:20 10:57 11:13 Temperature Pulse Rate 80 92 H 87 Pulse Rate [ From Monitor] Respiratory 12 16 Rate Blood Pressure 132/81 151/84 131/58 O2 Sat by Pulse 99 99 Oximetry - Lab 11/15/18 04:50 11/15/18 04:50 Most recent lab results Calcium 8.4 mg/dL (8.4-10.2) 11/15/18 04:50 Phosphorus 3.50 mg/dL (2.5-4.5) 11/12/18 04:44 Magnesium 2.00 mg/dL (1.7-2.3) 11/12/18 04:44 Medications & Allergies - Medications Allergies/Adverse Reactions: Allergies No Known Allergies Allergy (Verified 03/17/18 11:54) Home Medications: Home Medications Medication Instructions Recorded Confirmed Last Taken Type Esomeprazole Magnesium [NexIUM] 20 mg PO QDAY #30 suspdr.pkt 03/17/18 11/07/18 Unknown Rx HYDROcodone/APAP 5-325 [[place] 1 each PO Q6HR PRN #15 tablet 03/17/18 11/07/18 Unknown Rx 5/325] Metoclopramide [Reglan] 10 mg PO TID #21 tab 03/17/18 11/07/18 Unknown Rx Ondansetron [Zofran Odt] 4 mg PO Q4HR PRN #20 tab.rapdis 03/17/18 11/07/18 Unknown Rx Active Medications: Generic Name Dose Route Start Last Admin Trade Name Freq PRN Reason Stop Dose Admin Acetaminophen 650 mg 11/06/18 22:22 11/11/18 07:33 Tylenol FEEDTUBE 650 mg Q6H PRN Administration Fever >101 Lipase/Protease/Amylase 1 each 11/08/18 18:[address] 10,500 Unit FEEDTUBE PRN PRN For Clogged Feeding Tube Apixaban 2.5 mg 11/13/18 10:00 11/15/18 11:15 Eliquis FEEDTUBE 2.5 mg BID MARIAJOSE Administration Chlorpromazine HCl 10 mg 11/07/18 08:07 11/10/18 05:36 Thorazine PO 10 mg Q6H PRN Administration Hiccups Clonazepam 0.5 mg 11/12/18 16:49 11/13/18 23:10 Klonopin PO 0.5 mg Q12H PRN Administration myoclonic jerks Dextrose 50 ml 11/07/18 16:46 11/10/18 23:43 D50w (25gm) Syringe IV 50 ml PRN PRN Administration Hypoglycemia Fentanyl 50 mcg 11/06/18 08:37 Sublimaze IV Q10MIN PRN ANALGESIA Hydralazine HCl 10 mg 11/08/18 00:56 11/14/18 08:34 Apresoline IV 10 mg Q4H PRN Administration Hypertension Hydralazine HCl 50 mg 11/14/18 09:16 11/15/18 05:38 Apresoline PO 50 mg Q8HR MARIAJOSE Administration Hydrophilic Ointment 1 applic 11/06/18 08:26 11/10/18 19:52 Vaseline Lip Therapy TP 1 applic Q2HR PRN Administration Dry Lips Fentanyl Citrate 2,000 mcg in 100 mls @ 4.309 mls/hr 11/06/18 10:00 11/15/18 08:58 Fentanyl Drip Premix IV 0 mcg/kg/hr TITR MARIAJOSE 0 mls/hr Titration Protocol 1 MCG/KG/HR Nicardipine HCl 50 mg/ Sodium 250 mls @ 25 mls/hr 11/12/18 13:00 Chloride IV TITR MARIAJOSE Protocol 5 MG/HR Levetiracetam 750 mg/ Dextrose 107.5 mls @ 400 mls/hr 11/12/18 22:00 11/15/18 11:13 IV 400 mls/hr Q12HR MARIAJOSE Administration Sodium Chloride 100 mls @ 999 mls/hr 11/14/18 11:33 Nacl 0.9% IV MARY PRN Hypotension Insulin Human Isoph/Insulin Regular 32 unit 11/14/18 10:18 11/15/18 08:51 Humulin 70/30 SUB-Q 32 unit BIDDIAB MARIAJOSE Administration Insulin Human Regular 0 units 11/07/18 18:00 11/15/18 06:08 Humulin R SUB-Q Not Given Q6HR MARIAJOSE Protocol Lansoprazole 30 mg 11/09/18 10:00 11/15/18 11:15 Prevacid Solutab FEEDTUBE 30 mg BID MARIAJOSE Administration Lorazepam 2 mg 11/12/18 08:31 11/13/18 23:10 Ativan IV 2 mg Q4H PRN Administration Agitation Metoprolol Tartrate 50 mg 11/14/18 10:00 11/15/18 11:13 Lopressor PO 50 mg Q6H MARIAJOSE Administration Modafinil 100 mg 11/11/18 10:00 11/15/18 11:14 Provigil PO 100 mg QAM MARIAJOSE Administration Multi-Ingred Cream/Lotion/Oil/Oint 1 applic 11/06/18 08:26 Artificial Tears Ophth Oint OU Q4HR PRN Dry Eye(s) Simple Syrup 15 ml 11/08/18 18:38 Simple Syrup FEEDTUBE PRN PRN Hypoglycemia Simple Syrup 30 ml 11/08/18 18:38 Simple Syrup FEEDTUBE PRN PRN Hypoglycemia Sodium Bicarbonate 325 mg 11/08/18 18:38 Sodium Bicarbonate FEEDTUBE PRN PRN For Clogged Feeding Tube Sodium Chloride 10 ml 11/06/18 22:00 11/15/18 11:16 Sodium Chloride Flush Syringe 10 Ml IV 10 ml BID MARIAJOSE Administration Sodium Chloride 10 ml 11/06/18 12:42 11/13/18 10:30 Sodium Chloride Flush Syringe 10 Ml IV 10 ml PRN PRN Administration LINE FLUSH Tamsulosin HCl 0.4 mg 11/10/18 13:00 11/15/18 11:15 Flomax PO 0.4 mg QDAY MARIAJOSE Administration
[2018-11-15] MEDS: ATIVAN IV PRN (14:25)
--- NOTE | 2018-11-15 14:38 | Progress Note ---
Assessment and Plan Acute hypoxemic respiratory failure, on mechanical ventilator support. Diabetic ketoacidosis. Severe metabolic acidosis. Severe sepsis with shock. Acute encephalopathy that appears to be toxic metabolic. End-stage renal disease, on dialysis. Hyperkalemia at presentation. Diabetes. Peripheral vascular disease. Anemia that is macrocytic. Elevated serum transaminases, likely representing shock liver. Mild hyponatremia, pseudohyponatremia actually. Lactic acidosis. (AMS remains a rate limiting factor to safe extubation and he will likely need a tracheostomy) - ETT changed out successfully - continue daily SAT's and SBT assessment in am as tolerated - prn sedation target for RASS 0 to -1 - wean off vasopressors for MAP > 65 mmHg (off now) - continue to wean supplemental oxygen to keep O2 sats > 90% - EEG Impression noted re: [Anoxic brain injury with interval improvement of clinical status. I have reviewed the EEG which does not show any epileptiform activity or seizure activity. The background rhythm is a little slow other than that EEG is normal] - will follow clinically for a few more days before deciding on tracheostomy vs trial of extubation - continue Provigil - continue baclofen for myoclonic activity / hiccups - follow clinically off AB's for now ) - continue bronchodilators with pulmonary hygiene per RT - Lung protective strategies - VAP bundle addressed - continue HD/UF as tolerated for toxin and volume clearance - neurology evaluation ongoing - Monitor renal indices closely - continue to avoid nephrotoxic agents, adjust all medications for CrCL - Strict intake and output monitoring - continue enteral nutrition as tolerated - continue accuchecks with glycemic control per SSI for target glucose of 140- 180 mg/dL - Maintenance of sleep -wake cycle - Mobility protocol for pressure ulcer prophylaxis - continue GI & VTE prophylaxis - Influenza and pneumonia vaccination per protocol ... care plan discussed at length with mother at bedside PROGNOSIS: GUARDED CONDITION: CRITICAL CODE STATUS: FULL CODE The high probability of a clinically significant, sudden or life-threatening deterioration of the [respiratory, neurology, renal] system(s) required my full and direct attention, intervention and personal management. The aggregate critical care time was [35] minutes without overlap. Time includes spent on; [x] Data Review and interpretation [x] Patient assessment and monitoring of vital signs [x] Documentation [x] Medication orders and management Subjective Date of service: 11/15/18 Principal diagnosis: Ac hypoxemic resp failure; DKA; Severe sepsis with shock; ESRD on dialysis Interval history: Patient is seen today for: Acute hypoxemic respiratory failure on MVS; DKA; Severe metabolic acidosis; Severe sepsis with shock; Acute encephalopathy that appears to be toxic metabolic; ESRD on dialysis; DM II; Peripheral vascular disease. Seen and examined at bedside; 24hour events reviewed; nursing and respiratory care staff consulted; no adverse overnight events reported to me; remains on MVS; ETT cuff blown and tube changed; AMS is persistent; tolerating daytime SBT's; no N/V/F/C Objective Vital Signs - 12hr 11/15/18 11/15/18 11/15/18 03:00 03:19 03:27 Temperature Pulse Rate 93 H 100 H 86 Pulse Rate [ From Monitor] Respiratory 20 Rate Blood Pressure 155/83 143/54 O2 Sat by Pulse 100 100 Oximetry 11/15/18 11/15/18 11/15/18 03:30 04:00 04:30 Temperature 98.5 F Pulse Rate 93 H 92 H 106 H Pulse Rate [ 82 From Monitor] Respiratory 20 20 14 Rate Blood Pressure 137/74 141/83 211/123 O2 Sat by Pulse 100 100 98 Oximetry 11/15/18 11/15/18 11/15/18 05:00 05:30 05:37 Temperature Pulse Rate 90 93 H 93 H Pulse Rate [ From Monitor] Respiratory 19 8 L Rate Blood Pressure 139/75 162/85 162/85 O2 Sat by Pulse 100 99 Oximetry 11/15/18 11/15/18 11/15/18 06:00 06:30 07:20 Temperature Pulse Rate 90 80 80 Pulse Rate [ From Monitor] Respiratory 15 15 12 Rate Blood Pressure 147/76 132/81 132/81 O2 Sat by Pulse 99 99 99 Oximetry 11/15/18 11/15/18 11/15/18 10:57 11:13 13:16 Temperature Pulse Rate 92 H 87 93 H Pulse Rate [ From Monitor] Respiratory 16 Rate Blood Pressure 151/84 131/58 152/59 O2 Sat by Pulse 99 Oximetry 11/15/18 13:44 Temperature Pulse Rate 93 H Pulse Rate [ From Monitor] Respiratory 22 Rate Blood Pressure 171/68 O2 Sat by Pulse 100 Oximetry Constitutional: appears uncomfortable, other (middle aged AAM, normocephalic and atraumatic on MVS) Eyes: non-icteric ENT: oropharynx moist, other (ETT 25 cm FITO) Neck: supple, no lymphadenopathy, no JVD Effort: mildly labored Ascultation: Bilateral: diminished breath sounds, rhonchi Percussion: Bilateral: not dull Cardiovascular: regular rate and rhythm Gastrointestinal: normoactive bowel sounds, soft, non-tender, non-distended Integumentary: rash Extremities: no cyanosis, pulses normal, no ischemia or petechiae, edema Neurologic: pupils equal and round (minimally reactive), unable to assess, other (intermittent myoclonic type jerks) Psychiatric: other (unable to assess re: AMS) CBC and BMP: 11/16/18 04:49 11/16/18 04:49 ABG, PT/INR, D-dimer: ABG POC ABG pH 7.418 (7.35-7.45) 11/11/18 05:31 POC ABG pCO2 48.8 (35-45) H 11/11/18 05:31 POC ABG pO2 109 (80-105) H 11/11/18 05:31 POC ABG HCO3 31.5 (22-26 mml/L) 11/11/18 05:31 POC ABG Total CO2 33 (23-27mmol/L) 11/11/18 05:31 POC ABG O2 Sat 98 11/11/18 05:31 Abnormal lab findings: Abnormal Labs 11/06/18 11/06/18 11/06/18 08:22 09:02 09:02 WBC 20.1 H RBC 3.40 L Hgb 10.5 L Hct MCV 119 H MCHC 26 L RDW 15.7 H Plt Count Lymph % (Auto) Rankin % (Auto) Lymph # Rankin # Seg Neutrophils % 80.1 H Seg Neuts % (Manual) 76.0 H Lymphocytes % (Manual) 4.0 L Monocytes % (Manual) Nucleated RBC % 1.0 H Seg Neutrophils # 16.1 H Seg Neutrophils # Man 15.3 H Lymphocytes # (Manual) 0.8 L Monocytes # (Manual) POC ABG pH POC ABG pCO2 POC ABG pO2 VBG pH Sodium 129 L Potassium 7.7 H* Chloride 79.7 L Carbon Dioxide 4 L* BUN 93 H Creatinine 7.4 H Glucose 1469 H* POC Glucose > 500 H Hemoglobin A1c Lactic Acid Calcium Phosphorus Magnesium Direct Bilirubin AST 2679 H ALT 1175 H C-Reactive Protein Total Protein 6.1 L Albumin 2.9 L Salicylates Acetaminophen Heparin-induced Plt Ab 11/06/18 11/06/18 11/06/18 09:02 09:02 09:02 WBC RBC Hgb Hct MCV MCHC RDW Plt Count Lymph % (Auto) Rankin % (Auto) Lymph # Rankin # Seg Neutrophils % Seg Neuts % (Manual) Lymphocytes % (Manual) Monocytes % (Manual) Nucleated RBC % Seg Neutrophils # Seg Neutrophils # Man Lymphocytes # (Manual) Monocytes # (Manual) POC ABG pH POC ABG pCO2 POC ABG pO2 VBG pH Sodium Potassium Chloride Carbon Dioxide BUN Creatinine Glucose POC Glucose Hemoglobin A1c Lactic Acid 9.40 H* Calcium Phosphorus Magnesium Direct Bilirubin AST ALT C-Reactive Protein Total Protein Albumin Salicylates < 0.3 L Acetaminophen < 5.0 L Heparin-induced Plt Ab 11/06/18 11/06/18 11/06/18 09:03 10:19 10:19 WBC RBC Hgb Hct MCV MCHC RDW Plt Count Lymph % (Auto) Rankin % (Auto) Lymph # Rankin # Seg Neutrophils % Seg Neuts % (Manual) Lymphocytes % (Manual) Monocytes % (Manual) Nucleated RBC % Seg Neutrophils # Seg Neutrophils # Man Lymphocytes # (Manual) Monocytes # (Manual) POC ABG pH 6.841 L POC ABG pCO2 POC ABG pO2 VBG pH Sodium 131 L Potassium 8.9 H* Chloride 85.3 L Carbon Dioxide 6 L* BUN 90 H Creatinine 7.1 H Glucose 1353 H* POC Glucose Hemoglobin A1c Lactic Acid Calcium 7.8 L Phosphorus 14.50 H Magnesium 2.70 H Direct Bilirubin AST ALT C-Reactive Protein Total Protein Albumin Salicylates Acetaminophen Heparin-induced Plt Ab 11/06/18 11/06/18 11/06/18 12:07 13:22 13:22 WBC RBC Hgb Hct MCV MCHC RDW Plt Count Lymph % (Auto) Rankin % (Auto) Lymph # Rankin # Seg Neutrophils % Seg Neuts % (Manual) Lymphocytes % (Manual) Monocytes % (Manual) Nucleated RBC % Seg Neutrophils # Seg Neutrophils # Man Lymphocytes # (Manual) Monocytes # (Manual) POC ABG pH POC ABG pCO2 POC ABG pO2 VBG pH 6.982 L* Sodium 135 L Potassium 7.0 H* D Chloride 88.4 L Carbon Dioxide 5 L* BUN 89 H Creatinine 7.2 H Glucose 1326 H* POC Glucose Hemoglobin A1c Lactic Acid 8.50 H* Calcium Phosphorus Magnesium Direct Bilirubin AST ALT C-Reactive Protein Total Protein Albumin Salicylates Acetaminophen Heparin-induced Plt Ab 11/06/18 11/06/18 11/06/18 14:15 14:15 15:21 WBC RBC Hgb Hct MCV MCHC RDW Plt Count Lymph % (Auto) Rankin % (Auto) Lymph # Rankin # Seg Neutrophils % Seg Neuts % (Manual) Lymphocytes % (Manual) Monocytes % (Manual) Nucleated RBC % Seg Neutrophils # Seg Neutrophils # Man Lymphocytes # (Manual) Monocytes # (Manual) POC ABG pH POC ABG pCO2 POC ABG pO2 VBG pH Sodium Potassium 6.6 H* 6.0 H Chloride 95.3 L 93.3 L Carbon Dioxide 4 L* 6 L* BUN 83 H 91 H Creatinine 6.9 H 7.3 H Glucose 1205 H* 1174 H* POC Glucose Hemoglobin A1c Lactic Acid Calcium 8.2 L Phosphorus 13.00 H Magnesium 2.60 H Direct Bilirubin AST ALT C-Reactive Protein Total Protein Albumin Salicylates Acetaminophen Heparin-induced Plt Ab 11/06/18 11/06/18 11/06/18 15:21 16:14 16:33 WBC RBC Hgb Hct MCV MCHC RDW Plt Count Lymph % (Auto) Rankin % (Auto) Lymph # Rankin # Seg Neutrophils % Seg Neuts % (Manual) Lymphocytes % (Manual) Monocytes % (Manual) Nucleated RBC % Seg Neutrophils # Seg Neutrophils # Man Lymphocytes # (Manual) Monocytes # (Manual) POC ABG pH 7.004 L POC ABG pCO2 33.0 L POC ABG pO2 178 H VBG pH Sodium Potassium Chloride Carbon Dioxide BUN Creatinine Glucose POC Glucose > 500 H Hemoglobin A1c Lactic Acid 7.60 H* Calcium Phosphorus Magnesium Direct Bilirubin AST ALT C-Reactive Protein Total Protein Albumin Salicylates Acetaminophen Heparin-induced Plt Ab 11/06/18 11/06/18 11/06/18 17:34 19:30 19:30 WBC RBC Hgb Hct MCV MCHC RDW Plt Count Lymph % (Auto) Rankin % (Auto) Lymph # Rankin # Seg Neutrophils % Seg Neuts % (Manual) Lymphocytes % (Manual) Monocytes % (Manual) Nucleated RBC % Seg Neutrophils # Seg Neutrophils # Man Lymphocytes # (Manual) Monocytes # (Manual) POC ABG pH POC ABG pCO2 POC ABG pO2 VBG pH Sodium Potassium 5.5 H Chloride 97.4 L 97.7 L Carbon Dioxide 10 L 11 L BUN 88 H 87 H Creatinine 7.5 H 7.6 H Glucose 1054 H* 954 H* POC Glucose Hemoglobin A1c Lactic Acid Calcium 7.7 L 7.4 L Phosphorus Magnesium Direct Bilirubin AST ALT C-Reactive Protein 1.90 H Total Protein Albumin Salicylates Acetaminophen Heparin-induced Plt Ab 11/06/18 11/06/18 11/06/18 20:31 20:40 20:40 WBC RBC Hgb Hct MCV MCHC RDW Plt Count Lymph % (Auto) Rankin % (Auto) Lymph # Rankin # Seg Neutrophils % Seg Neuts % (Manual) Lymphocytes % (Manual) Monocytes % (Manual) Nucleated RBC % Seg Neutrophils # Seg Neutrophils # Man Lymphocytes # (Manual) Monocytes # (Manual) POC ABG pH 7.245 L POC ABG pCO2 POC ABG pO2 132 H VBG pH Sodium Potassium Chloride Carbon Dioxide BUN Creatinine Glucose 907 H* POC Glucose Hemoglobin A1c Lactic Acid 4.40 H* Calcium Phosphorus Magnesium Direct Bilirubin AST ALT C-Reactive Protein Total Protein Albumin Salicylates Acetaminophen Heparin-induced Plt Ab 11/06/18 11/06/18 11/06/18 22:05 22:40 23:35 WBC RBC Hgb Hct MCV MCHC RDW Plt Count Lymph % (Auto) Rankin % (Auto) Lymph # Rankin # Seg Neutrophils % Seg Neuts % (Manual) Lymphocytes % (Manual) Monocytes % (Manual) Nucleated RBC % Seg Neutrophils # Seg Neutrophils # Man Lymphocytes # (Manual) Monocytes # (Manual) POC ABG pH POC ABG pCO2 POC ABG pO2 VBG pH Sodium Potassium Chloride Carbon Dioxide 13 L BUN 86 H Creatinine 7.8 H Glucose 822 H* 726 H* POC Glucose Hemoglobin A1c Lactic Acid 3.40 H* Calcium 7.5 L Phosphorus Magnesium Direct Bilirubin AST ALT C-Reactive Protein Total Protein Albumin Salicylates Acetaminophen Heparin-induced Plt Ab 11/07/18 11/07/18 11/07/18 01:25 01:26 03:15 WBC RBC Hgb Hct MCV MCHC RDW Plt Count Lymph % (Auto) Rankin % (Auto) Lymph # Rankin # Seg Neutrophils % Seg Neuts % (Manual) Lymphocytes % (Manual) Monocytes % (Manual) Nucleated RBC % Seg Neutrophils # Seg Neutrophils # Man Lymphocytes # (Manual) Monocytes # (Manual) POC ABG pH POC ABG pCO2 POC ABG pO2 VBG pH Sodium Potassium Chloride Carbon Dioxide BUN Creatinine Glucose 602 H* POC Glucose > 500 H > 500 H Hemoglobin A1c Lactic Acid Calcium Phosphorus Magnesium Direct Bilirubin AST ALT C-Reactive Protein Total Protein Albumin Salicylates Acetaminophen Heparin-induced Plt Ab 11/07/18 11/07/18 11/07/18 03:20 04:32 04:47 WBC RBC Hgb Hct MCV MCHC RDW Plt Count Lymph % (Auto) Rankin % (Auto) Lymph # Rankin # Seg Neutrophils % Seg Neuts % (Manual) Lymphocytes % (Manual) Monocytes % (Manual) Nucleated RBC % Seg Neutrophils # Seg Neutrophils # Man Lymphocytes # (Manual) Monocytes # (Manual) POC ABG pH POC ABG pCO2 30.3 L POC ABG pO2 153 H VBG pH Sodium 149 H Potassium Chloride Carbon Dioxide 16 L BUN 86 H Creatinine 8.3 H Glucose 499.2 H POC Glucose 360 H Hemoglobin A1c Lactic Acid Calcium 7.6 L Phosphorus Magnesium Direct Bilirubin AST ALT C-Reactive Protein Total Protein Albumin Salicylates Acetaminophen Heparin-induced Plt Ab 11/07/18 11/07/18 11/07/18 05:26 06:35 06:36 WBC RBC Hgb Hct MCV MCHC RDW Plt Count Lymph % (Auto) Rankin % (Auto) Lymph # Rankin # Seg Neutrophils % Seg Neuts % (Manual) Lymphocytes % (Manual) Monocytes % (Manual) Nucleated RBC % Seg Neutrophils # Seg Neutrophils # Man Lymphocytes # (Manual) Monocytes # (Manual) POC ABG pH POC ABG pCO2 POC ABG pO2 VBG pH Sodium 153 H Potassium 3.2 L Chloride 109.7 H Carbon Dioxide BUN 84 H Creatinine 8.6 H Glucose 249 H POC Glucose 341 H 274 H Hemoglobin A1c Lactic Acid Calcium 7.6 L Phosphorus Magnesium Direct Bilirubin AST ALT C-Reactive Protein Total Protein Albumin Salicylates Acetaminophen Heparin-induced Plt Ab 11/07/18 11/07/18 11/07/18 07:33 09:00 09:52 WBC RBC Hgb Hct MCV MCHC RDW Plt Count Lymph % (Auto) Rankin % (Auto) Lymph # Rankin # Seg Neutrophils % Seg Neuts % (Manual) Lymphocytes % (Manual) Monocytes % (Manual) Nucleated RBC % Seg Neutrophils # Seg Neutrophils # Man Lymphocytes # (Manual) Monocytes # (Manual) POC ABG pH POC ABG pCO2 POC ABG pO2 VBG pH Sodium Potassium Chloride Carbon Dioxide BUN Creatinine Glucose POC Glucose 243 H 182 H 227 H Hemoglobin A1c Lactic Acid Calcium Phosphorus Magnesium Direct Bilirubin AST ALT C-Reactive Protein Total Protein Albumin Salicylates Acetaminophen Heparin-induced Plt Ab 11/07/18 11/07/18 11/07/18 10:50 10:50 10:50 WBC 11.3 H RBC 2.85 L Hgb 8.7 L Hct 25.3 L D MCV MCHC RDW Plt Count Lymph % (Auto) 9.7 L Rankin % (Auto) Lymph # 1.1 L Rankin # Seg Neutrophils % 83.3 H Seg Neuts % (Manual) Lymphocytes % (Manual) Monocytes % (Manual) Nucleated RBC % Seg Neutrophils # 9.4 H Seg Neutrophils # Man Lymphocytes # (Manual) Monocytes # (Manual) POC ABG pH POC ABG pCO2 POC ABG pO2 VBG pH Sodium 154 H Potassium 3.2 L Chloride 110.2 H Carbon Dioxide BUN 82 H Creatinine 8.3 H Glucose 186 H POC Glucose 200 H Hemoglobin A1c Lactic Acid Calcium 7.3 L Phosphorus Magnesium Direct Bilirubin AST ALT C-Reactive Protein Total Protein Albumin Salicylates Acetaminophen Heparin-induced Plt Ab 11/07/18 11/07/18 11/07/18 12:00 12:05 13:13 WBC RBC Hgb Hct MCV MCHC RDW Plt Count Lymph % (Auto) Rankin % (Auto) Lymph # Rankin # Seg Neutrophils % Seg Neuts % (Manual) Lymphocytes % (Manual) Monocytes % (Manual) Nucleated RBC % Seg Neutrophils # Seg Neutrophils # Man Lymphocytes # (Manual) Monocytes # (Manual) POC ABG pH POC ABG pCO2 POC ABG pO2 VBG pH Sodium Potassium Chloride Carbon Dioxide BUN Creatinine Glucose POC Glucose 179 H 190 H Hemoglobin A1c Lactic Acid 2.50 H* Calcium Phosphorus Magnesium Direct Bilirubin AST ALT C-Reactive Protein Total Protein Albumin Salicylates Acetaminophen Heparin-induced Plt Ab 11/07/18 11/07/18 11/07/18 13:20 14:05 15:18 WBC RBC Hgb Hct MCV MCHC RDW Plt Count Lymph % (Auto) Rankin % (Auto) Lymph # Rankin # Seg Neutrophils % Seg Neuts % (Manual) Lymphocytes % (Manual) Monocytes % (Manual) Nucleated RBC % Seg Neutrophils # Seg Neutrophils # Man Lymphocytes # (Manual) Monocytes # (Manual) POC ABG pH POC ABG pCO2 POC ABG pO2 VBG pH Sodium Potassium 3.1 L Chloride Carbon Dioxide BUN 50 H Creatinine 5.0 H Glucose 176 H POC Glucose 189 H 215 H Hemoglobin A1c Lactic Acid Calcium 7.4 L Phosphorus Magnesium Direct Bilirubin AST ALT C-Reactive Protein Total Protein Albumin Salicylates Acetaminophen Heparin-induced Plt Ab 11/07/18 11/07/18 11/07/18 16:25 17:37 23:23 WBC RBC Hgb Hct MCV MCHC RDW Plt Count Lymph % (Auto) Rankin % (Auto) Lymph # Rankin # Seg Neutrophils % Seg Neuts % (Manual) Lymphocytes % (Manual) Monocytes % (Manual) Nucleated RBC % Seg Neutrophils # Seg Neutrophils # Man Lymphocytes # (Manual) Monocytes # (Manual) POC ABG pH POC ABG pCO2 POC ABG pO2 VBG pH Sodium Potassium Chloride Carbon Dioxide BUN Creatinine Glucose POC Glucose 180 H 215 H 234 H Hemoglobin A1c Lactic Acid Calcium Phosphorus Magnesium Direct Bilirubin AST ALT C-Reactive Protein Total Protein Albumin Salicylates Acetaminophen Heparin-induced Plt Ab 11/08/18 11/08/18 11/08/18 04:17 04:23 04:23 WBC RBC 2.98 L Hgb 9.3 L Hct 26.7 L MCV MCHC 35 H RDW Plt Count 130 L Lymph % (Auto) Rankin % (Auto) Lymph # Rankin # Seg Neutrophils % 80.3 H Seg Neuts % (Manual) Lymphocytes % (Manual) Monocytes % (Manual) Nucleated RBC % Seg Neutrophils # 7.8 H Seg Neutrophils # Man Lymphocytes # (Manual) Monocytes # (Manual) POC ABG pH 7.520 H POC ABG pCO2 POC ABG pO2 111 H VBG pH Sodium Potassium 3.0 L Chloride Carbon Dioxide BUN 44 H Creatinine 6.3 H Glucose 245 H POC Glucose Hemoglobin A1c Lactic Acid Calcium 7.3 L Phosphorus Magnesium Direct Bilirubin AST ALT C-Reactive Protein Total Protein Albumin Salicylates Acetaminophen Heparin-induced Plt Ab 11/08/18 11/08/18 11/08/18 05:19 08:00 08:00 WBC RBC Hgb Hct MCV MCHC RDW Plt Count Lymph % (Auto) Rankin % (Auto) Lymph # Rankin # Seg Neutrophils % Seg Neuts % (Manual) Lymphocytes % (Manual) Monocytes % (Manual) Nucleated RBC % Seg Neutrophils # Seg Neutrophils # Man Lymphocytes # (Manual) Monocytes # (Manual) POC ABG pH POC ABG pCO2 POC ABG pO2 VBG pH Sodium Potassium Chloride Carbon Dioxide BUN Creatinine Glucose POC Glucose 253 H Hemoglobin A1c Lactic Acid 2.70 H* Calcium Phosphorus Magnesium Direct Bilirubin 0.3 H AST 932 H ALT 582 H C-Reactive Protein Total Protein 5.4 L Albumin 2.6 L Salicylates Acetaminophen Heparin-induced Plt Ab 11/08/18 11/08/18 11/08/18 11:36 17:51 21:59 WBC RBC Hgb Hct MCV MCHC RDW Plt Count Lymph % (Auto) Rankin % (Auto) Lymph # Rankin # Seg Neutrophils % Seg Neuts % (Manual) Lymphocytes % (Manual) Monocytes % (Manual) Nucleated RBC % Seg Neutrophils # Seg Neutrophils # Man Lymphocytes # (Manual) Monocytes # (Manual) POC ABG pH 7.459 H POC ABG pCO2 POC ABG pO2 108 H VBG pH Sodium Potassium Chloride Carbon Dioxide BUN Creatinine Glucose POC Glucose 197 H Hemoglobin A1c Lactic Acid Calcium Phosphorus Magnesium Direct Bilirubin AST ALT C-Reactive Protein Total Protein Albumin Salicylates Acetaminophen Heparin-induced Plt Ab Positive H 11/08/18 11/09/18 11/09/18 23:28 00:39 02:20 WBC RBC Hgb Hct MCV MCHC RDW Plt Count Lymph % (Auto) Rankin % (Auto) Lymph # Rankin # Seg Neutrophils % Seg Neuts % (Manual) Lymphocytes % (Manual) Monocytes % (Manual) Nucleated RBC % Seg Neutrophils # Seg Neutrophils # Man Lymphocytes # (Manual) Monocytes # (Manual) POC ABG pH POC ABG pCO2 POC ABG pO2 VBG pH Sodium Potassium Chloride Carbon Dioxide BUN Creatinine Glucose POC Glucose 418 H 471 H 254 H Hemoglobin A1c Lactic Acid Calcium Phosphorus Magnesium Direct Bilirubin AST ALT C-Reactive Protein Total Protein Albumin Salicylates Acetaminophen Heparin-induced Plt Ab 11/09/18 11/09/18 11/09/18 03:48 06:02 06:02 WBC RBC 2.95 L Hgb 9.2 L Hct 26.7 L MCV MCHC RDW Plt Count 101 L Lymph % (Auto) Rankin % (Auto) Lymph # Rankin # Seg Neutrophils % Seg Neuts % (Manual) Lymphocytes % (Manual) Monocytes % (Manual) Nucleated RBC % Seg Neutrophils # Seg Neutrophils # Man Lymphocytes # (Manual) Monocytes # (Manual) POC ABG pH POC ABG pCO2 POC ABG pO2 108 H VBG pH Sodium 150 H Potassium Chloride 108.3 H Carbon Dioxide BUN 44 H Creatinine 7.7 H Glucose 102 H POC Glucose Hemoglobin A1c Lactic Acid Calcium 7.2 L Phosphorus Magnesium Direct Bilirubin AST 554 H ALT 461 H C-Reactive Protein Total Protein 5.1 L Albumin 2.6 L Salicylates Acetaminophen Heparin-induced Plt Ab 11/09/18 11/09/18 11/09/18 17:49 18:49 23:32 WBC RBC Hgb Hct MCV MCHC RDW Plt Count Lymph % (Auto) Rankin % (Auto) Lymph # Rankin # Seg Neutrophils % Seg Neuts % (Manual) Lymphocytes % (Manual) Monocytes % (Manual) Nucleated RBC % Seg Neutrophils # Seg Neutrophils # Man Lymphocytes # (Manual) Monocytes # (Manual) POC ABG pH POC ABG pCO2 46.2 H POC ABG pO2 VBG pH Sodium Potassium Chloride Carbon Dioxide BUN Creatinine Glucose POC Glucose 184 H 150 H Hemoglobin A1c Lactic Acid Calcium Phosphorus Magnesium Direct Bilirubin AST ALT C-Reactive Protein Total Protein Albumin Salicylates Acetaminophen Heparin-induced Plt Ab 11/10/18 11/10/18 11/10/18 02:52 05:00 05:00 WBC RBC 2.95 L Hgb 8.9 L Hct 26.6 L MCV MCHC RDW Plt Count 100 L Lymph % (Auto) Rankin % (Auto) Lymph # Rankin # Seg Neutrophils % Seg Neuts % (Manual) Lymphocytes % (Manual) Monocytes % (Manual) 8.0 H Nucleated RBC % Seg Neutrophils # Seg Neutrophils # Man Lymphocytes # (Manual) Monocytes # (Manual) POC ABG pH POC ABG pCO2 POC ABG pO2 VBG pH Sodium Potassium Chloride Carbon Dioxide BUN 33 H Creatinine 6.8 H Glucose 251 H POC Glucose 186 H Hemoglobin A1c Lactic Acid Calcium 7.3 L Phosphorus Magnesium Direct Bilirubin AST ALT C-Reactive Protein Total Protein Albumin Salicylates Acetaminophen Heparin-induced Plt Ab 11/10/18 11/10/18 11/10/18 05:16 11:47 17:32 WBC RBC Hgb Hct MCV MCHC RDW Plt Count Lymph % (Auto) Rankin % (Auto) Lymph # Rankin # Seg Neutrophils % Seg Neuts % (Manual) Lymphocytes % (Manual) Monocytes % (Manual) Nucleated RBC % Seg Neutrophils # Seg Neutrophils # Man Lymphocytes # (Manual) Monocytes # (Manual) POC ABG pH POC ABG pCO2 POC ABG pO2 VBG pH Sodium Potassium Chloride Carbon Dioxide BUN Creatinine Glucose POC Glucose 242 H 261 H 194 H Hemoglobin A1c Lactic Acid Calcium Phosphorus Magnesium Direct Bilirubin AST ALT C-Reactive Protein Total Protein Albumin Salicylates Acetaminophen Heparin-induced Plt Ab 11/10/18 11/11/18 11/11/18 23:39 00:26 04:24 WBC RBC 2.98 L Hgb 9.1 L Hct 27.4 L MCV MCHC RDW Plt Count 114 L Lymph % (Auto) Rankin % (Auto) Lymph # Rankin # Seg Neutrophils % Seg Neuts % (Manual) Lymphocytes % (Manual) Monocytes % (Manual) 10.0 H Nucleated RBC % Seg Neutrophils # Seg Neutrophils # Man Lymphocytes # (Manual) Monocytes # (Manual) 1.0 H POC ABG pH POC ABG pCO2 POC ABG pO2 VBG pH Sodium Potassium Chloride Carbon Dioxide BUN Creatinine Glucose POC Glucose 60 L 124 H Hemoglobin A1c Lactic Acid Calcium Phosphorus Magnesium Direct Bilirubin AST ALT C-Reactive Protein Total Protein Albumin Salicylates Acetaminophen Heparin-induced Plt Ab 11/11/18 11/11/18 11/11/18 04:24 05:27 05:31 WBC RBC Hgb Hct MCV MCHC RDW Plt Count Lymph % (Auto) Rankin % (Auto) Lymph # Rankin # Seg Neutrophils % Seg Neuts % (Manual) Lymphocytes % (Manual) Monocytes % (Manual) Nucleated RBC % Seg Neutrophils # Seg Neutrophils # Man Lymphocytes # (Manual) Monocytes # (Manual) POC ABG pH POC ABG pCO2 48.8 H POC ABG pO2 109 H VBG pH Sodium Potassium Chloride Carbon Dioxide BUN 23 H Creatinine 5.5 H Glucose 147 H POC Glucose 172 H Hemoglobin A1c Lactic Acid Calcium 7.9 L Phosphorus Magnesium Direct Bilirubin AST 152 H ALT 247 H C-Reactive Protein Total Protein Albumin 2.3 L Salicylates Acetaminophen Heparin-induced Plt Ab 11/11/18 11/11/18 11/11/18 12:11 17:12 23:41 WBC RBC Hgb Hct MCV MCHC RDW Plt Count Lymph % (Auto) Rankin % (Auto) Lymph # Rankin # Seg Neutrophils % Seg Neuts % (Manual) Lymphocytes % (Manual) Monocytes % (Manual) Nucleated RBC % Seg Neutrophils # Seg Neutrophils # Man Lymphocytes # (Manual) Monocytes # (Manual) POC ABG pH POC ABG pCO2 POC ABG pO2 VBG pH Sodium Potassium Chloride Carbon Dioxide BUN Creatinine Glucose POC Glucose 343 H 188 H 145 H Hemoglobin A1c Lactic Acid Calcium Phosphorus Magnesium Direct Bilirubin AST ALT C-Reactive Protein Total Protein Albumin Salicylates Acetaminophen Heparin-induced Plt Ab 11/12/18 11/12/18 11/12/18 00:11 04:44 04:44 WBC RBC 2.91 L Hgb 9.0 L Hct 26.9 L MCV MCHC RDW Plt Count Lymph % (Auto) 12.7 L Rankin % (Auto) 14.9 H Lymph # 0.8 L Rankin # 1.0 H Seg Neutrophils % 71.2 H Seg Neuts % (Manual) Lymphocytes % (Manual) Monocytes % (Manual) Nucleated RBC % Seg Neutrophils # Seg Neutrophils # Man Lymphocytes # (Manual) Monocytes # (Manual) POC ABG pH POC ABG pCO2 POC ABG pO2 VBG pH Sodium Potassium Chloride Carbon Dioxide BUN 22 H Creatinine 5.0 H Glucose 288 H POC Glucose 151 H Hemoglobin A1c Lactic Acid Calcium Phosphorus Magnesium Direct Bilirubin AST 88 H ALT 187 H C-Reactive Protein Total Protein Albumin 2.9 L Salicylates Acetaminophen Heparin-induced Plt Ab 11/12/18 11/12/18 11/12/18 11:48 12:28 17:13 WBC RBC Hgb Hct MCV MCHC RDW Plt Count Lymph % (Auto) [place] % (Auto) Lymph # Rank[place] # Seg Neutrophils % Seg Neuts % (Manual) Lymphocytes % (Manual) Monocytes % (Manual) Nucleated RBC % Seg Neutrophils # Seg Neutrophils # Man Lymphocytes # (Manual) Monocytes # (Manual) POC ABG pH POC ABG pCO2 POC ABG pO2 VBG pH Sodium Potassium Chloride Carbon Dioxide BUN Creatinine Glucose POC Glucose 414 H 437 H 251 H Hemoglobin A1c Lactic Acid Calcium Phosphorus Magnesium Direct Bilirubin AST ALT C-Reactive Protein Total Protein Albumin Salicylates Acetaminophen Heparin-induced Plt Ab 11/13/18 11/13/18 11/13/18 00:43 04:14 04:14 WBC RBC 2.62 L Hgb 8.0 L Hct 24.0 L MCV MCHC RDW Plt Count Lymph % (Auto) [place] % (Auto) 15.8 H Lymph # [place] # 0.9 H Seg Neutrophils % Seg Neuts % (Manual) Lymphocytes % (Manual) Monocytes % (Manual) Nucleated RBC % Seg Neutrophils # Seg Neutrophils # Man Lymphocytes # (Manual) Monocytes # (Manual) POC ABG pH POC ABG pCO2 POC ABG pO2 VBG pH Sodium Potassium Chloride Carbon Dioxide BUN 32 H Creatinine 6.9 H Glucose 190 H POC Glucose 149 H Hemoglobin A1c Lactic Acid Calcium Phosphorus Magnesium Direct Bilirubin AST ALT C-Reactive Protein Total Protein Albumin Salicylates Acetaminophen Heparin-induced Plt Ab 11/13/18 11/13/18 11/13/18 05:53 10:40 12:05 WBC RBC Hgb Hct MCV MCHC RDW Plt Count Lymph % (Auto) [place] % (Auto) Lymph # [place] # Seg Neutrophils % Seg Neuts % (Manual) Lymphocytes % (Manual) Monocytes % (Manual) Nucleated RBC % Seg Neutrophils # Seg Neutrophils # Man Lymphocytes # (Manual) Monocytes # (Manual) POC ABG pH POC ABG pCO2 POC ABG pO2 VBG pH Sodium Potassium Chloride Carbon Dioxide BUN Creatinine Glucose POC Glucose 270 H 405 H 361 H Hemoglobin A1c Lactic Acid Calcium Phosphorus Magnesium Direct Bilirubin AST ALT C-Reactive Protein Total Protein Albumin Salicylates Acetaminophen Heparin-induced Plt Ab 11/13/18 11/13/18 11/14/18 18:48 23:55 04:57 WBC RBC 2.75 L Hgb 8.3 L Hct 25.2 L MCV MCHC RDW Plt Count Lymph % (Auto) [place] % (Auto) 15.8 H Lymph # 0.9 L Rankin # 0.9 H Seg Neutrophils % Seg Neuts % (Manual) Lymphocytes % (Manual) Monocytes % (Manual) Nucleated RBC % Seg Neutrophils # Seg Neutrophils # Man Lymphocytes # (Manual) Monocytes # (Manual) POC ABG pH POC ABG pCO2 POC ABG pO2 VBG pH Sodium Potassium Chloride Carbon Dioxide BUN Creatinine Glucose POC Glucose 202 H 254 H Hemoglobin A1c Lactic Acid Calcium Phosphorus Magnesium Direct Bilirubin AST ALT C-Reactive Protein Total Protein Albumin Salicylates Acetaminophen Heparin-induced Plt Ab 11/14/18 11/14/18 11/14/18 04:57 05:33 11:37 WBC RBC Hgb Hct MCV MCHC RDW Plt Count Lymph % (Auto) [place] % (Auto) Lymph # [place] # Seg Neutrophils % Seg Neuts % (Manual) Lymphocytes % (Manual) Monocytes % (Manual) Nucleated RBC % Seg Neutrophils # Seg Neutrophils # Man Lymphocytes # (Manual) Monocytes # (Manual) POC ABG pH POC ABG pCO2 POC ABG pO2 VBG pH Sodium 136 L Potassium Chloride 96.7 L Carbon Dioxide BUN 25 H Creatinine 5.3 H Glucose 235 H POC Glucose 242 H 272 H Hemoglobin A1c Lactic Acid Calcium Phosphorus Magnesium Direct Bilirubin AST ALT C-Reactive Protein Total Protein Albumin Salicylates Acetaminophen Heparin-induced Plt Ab 11/14/18 11/14/18 11/15/18 18:08 23:21 04:50 WBC RBC 2.76 L Hgb 8.5 L Hct 25.4 L MCV MCHC RDW Plt Count Lymph % (Auto) [place] % (Auto) 14.5 H Lymph # [place] # 1.1 H Seg Neutrophils % Seg Neuts % (Manual) Lymphocytes % (Manual) Monocytes % (Manual) Nucleated RBC % Seg Neutrophils # Seg Neutrophils # Man Lymphocytes # (Manual) Monocytes # (Manual) POC ABG pH POC ABG pCO2 POC ABG pO2 VBG pH Sodium Potassium Chloride Carbon Dioxide BUN Creatinine Glucose POC Glucose 166 H 185 H Hemoglobin A1c Lactic Acid Calcium Phosphorus Magnesium Direct Bilirubin AST ALT C-Reactive Protein Total Protein Albumin Salicylates Acetaminophen Heparin-induced Plt Ab 11/15/18 11/15/18 11/15/18 04:50 04:50 06:01 WBC RBC Hgb Hct MCV MCHC RDW Plt Count Lymph % (Auto) [place] % (Auto) Lymph # [place] # Seg Neutrophils % Seg Neuts % (Manual) Lymphocytes % (Manual) Monocytes % (Manual) Nucleated RBC % Seg Neutrophils # Seg Neutrophils # Man Lymphocytes # (Manual) Monocytes # (Manual) POC ABG pH POC ABG pCO2 POC ABG pO2 VBG pH Sodium Potassium Chloride 95.2 L Carbon Dioxide BUN 21 H Creatinine 4.8 H Glucose 126 H POC Glucose 150 H Hemoglobin A1c 10.1 H Lactic Acid Calcium Phosphorus Magnesium Direct Bilirubin AST ALT 69 H C-Reactive Protein Total Protein Albumin 2.7 L Salicylates Acetaminophen Heparin-induced Plt Ab 11/15/18 13:06 WBC RBC Hgb Hct MCV MCHC RDW Plt Count Lymph % (Auto) [place] % (Auto) Lymph # [place] # Seg Neutrophils % Seg Neuts % (Manual) Lymphocytes % (Manual) Monocytes % (Manual) Nucleated RBC % Seg Neutrophils # Seg Neutrophils # Man Lymphocytes # (Manual) Monocytes # (Manual) POC ABG pH POC ABG pCO2 POC ABG pO2 VBG pH Sodium Potassium Chloride Carbon Dioxide BUN Creatinine Glucose POC Glucose 191 H Hemoglobin A1c Lactic Acid Calcium Phosphorus Magnesium Direct Bilirubin AST ALT C-Reactive Protein Total Protein Albumin Salicylates Acetaminophen Heparin-induced Plt Ab Allied health notes reviewed: nursing
[2018-11-16] MEDS: HumuLIN R SUB-Q SCH ×4 (01:30→17:44)
[2018-11-16] MEDS: LOPRESSOR PO SCH ×4 (03:38→21:25)
[2018-11-16 05:48] LABS: Basophils % (Auto) 0.4 % (0.0-1.8); Eosinophils # (Auto) 0.1 K/mm3 (0.0-0.4); Eosinophils % (Auto) 0.7 % (0.0-4.3); Hematocrit 23.4 % (35.5-45.6); Lymphocytes # (Auto) 1.5 K/mm3 (1.2-5.4); Mean Corpuscular HGB Conc 34 % (32-34); Mean Corpuscular Volume 90 fl (84-94); Monocytes # (Auto) 1.2 K/mm3 (0.0-0.8); Monocytes % (Auto) 14.1 % (0.0-7.3); Platelet Count 354 K/mm3 (140-440); Red Cell Distribution Width 14.2 % (13.2-15.2)
[2018-11-16 06:10] LABS: Alanine Aminotransferase 48 units/L (7-56); Albumin 2.2 g/dL (3.9-5); BUN/Creatinine Ratio 5; Blood Urea Nitrogen 39 mg/dL (9-20); Calcium 8.3 mg/dL (8.4-10.2); Hemolysis Index 10
[2018-11-16 06:11] LABS: Bilirubin,Direct < 0.2 mg/dL (0-0.2)
[2018-11-16] MEDS: APRESOLINE PO SCH ×3 (06:46→21:26)
--- NOTE | 2018-11-16 08:58 | Progress Note ---
Assessment and Plan Severe renal failure due to GENEVIEVE on CKD, now ESRD on HD S/P High Anion Gap Metabolic Acidosis with elevated lactic acidosis with DKA: S/P Hyperkalemia: S/P Hyperphosphatemia: Hypernatremia: Hypokalemia, Resolving: - HD today for clearance and volume removal - Strict monitoring of I/O's - Hypernatremia- resolved On free water flushes of 250 ml every 4 hours via NG tube - Monitor BMP daily - Renally dose medications - Avoid Nephrotoxic agents - Obtain daily weights - Salgado Catheter: Yes - Assess dialysis needs daily S/p Cardiopulmonary arrest. STEMI: Hypoxic respiratory failure: -S/P CPR and ACLS protocol -Now off pressor support -Cardiology on board -Intubated on Vent. 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 per neurology -On IV Keppra -As per Neurology Subjective Date of service: 11/16/18 Principal diagnosis: Ac hypoxemic resp failure; DKA; Severe sepsis with shock; ESRD on dialysis Interval history: intubated, seen during HD Objective - Vital Signs Vital signs: Vital Signs - 12hr 11/15/18 11/15/18 11/15/18 21:00 21:16 21:22 Temperature Pulse Rate 91 H 92 H 94 H Pulse Rate [ From Monitor] Respiratory 20 20 Rate Respiratory Rate [ Generalized] Blood Pressure 155/80 155/80 155/80 O2 Sat by Pulse 100 100 Oximetry 11/15/18 11/15/18 11/15/18 21:29 21:30 21:46 Temperature Pulse Rate 92 H 93 H 92 H Pulse Rate [ From Monitor] Respiratory 20 20 Rate Respiratory Rate [ Generalized] Blood Pressure 155/80 155/80 155/80 O2 Sat by Pulse 100 100 Oximetry 11/15/18 11/15/18 11/15/18 22:00 22:12 22:16 Temperature Pulse Rate 91 H 87 86 Pulse Rate [ From Monitor] Respiratory 20 20 20 Rate Respiratory 12 Rate [ Generalized] Blood Pressure 153/83 153/83 153/83 O2 Sat by Pulse 100 100 100 Oximetry 11/15/18 11/15/18 11/15/18 22:30 22:46 23:00 Temperature Pulse Rate 87 85 92 H Pulse Rate [ From Monitor] Respiratory 20 20 20 Rate Respiratory Rate [ Generalized] Blood Pressure 153/83 153/83 153/84 O2 Sat by Pulse 100 100 100 Oximetry 11/15/18 11/15/18 11/15/18 23:16 23:30 23:46 Temperature Pulse Rate 88 89 90 Pulse Rate [ From Monitor] Respiratory 20 20 20 Rate Respiratory Rate [ Generalized] Blood Pressure 153/84 153/84 153/84 O2 Sat by Pulse 100 100 100 Oximetry 11/16/18 11/16/18 11/16/18 00:00 00:16 00:22 Temperature 97.4 F L Pulse Rate 90 94 H 90 Pulse Rate [ 96 H From Monitor] Respiratory 20 20 Rate Respiratory Rate [ Generalized] Blood Pressure 138/76 138/76 135/65 O2 Sat by Pulse 100 100 100 Oximetry 11/16/18 11/16/18 11/16/18 00:30 00:46 01:00 Temperature Pulse Rate 89 90 99 H Pulse Rate [ From Monitor] Respiratory 20 20 16 Rate Respiratory Rate [ Generalized] Blood Pressure 138/76 138/76 133/75 O2 Sat by Pulse 100 100 100 Oximetry 11/16/18 11/16/18 11/16/18 01:16 01:30 01:46 Temperature Pulse Rate 91 H 89 90 Pulse Rate [ From Monitor] Respiratory 20 20 20 Rate Respiratory Rate [ Generalized] Blood Pressure 133/75 133/75 133/75 O2 Sat by Pulse 100 100 100 Oximetry 11/16/18 11/16/18 11/16/18 02:00 02:16 02:30 Temperature Pulse Rate 92 H 87 88 Pulse Rate [ From Monitor] Respiratory 20 20 20 Rate Respiratory Rate [ Generalized] Blood Pressure 133/79 133/79 133/79 O2 Sat by Pulse 100 100 100 Oximetry 11/16/18 11/16/18 11/16/18 02:46 03:00 03:16 Temperature Pulse Rate 92 H 89 93 H Pulse Rate [ From Monitor] Respiratory 20 20 20 Rate Respiratory Rate [ Generalized] Blood Pressure 133/79 139/81 139/81 O2 Sat by Pulse 100 100 100 Oximetry 11/16/18 11/16/18 11/16/18 03:30 03:34 03:38 Temperature Pulse Rate 94 H 91 H 96 H Pulse Rate [ From Monitor] Respiratory 13 Rate Respiratory Rate [ Generalized] Blood Pressure 139/81 155/73 168/76 O2 Sat by Pulse 100 100 Oximetry 11/16/18 11/16/18 11/16/18 03:46 04:00 04:16 Temperature 99.0 F Pulse Rate 93 H 88 82 Pulse Rate [ 94 H From Monitor] Respiratory 20 20 20 Rate Respiratory Rate [ Generalized] Blood Pressure 139/81 126/81 126/81 O2 Sat by Pulse 100 100 100 Oximetry 11/16/18 11/16/18 11/16/18 04:30 04:46 05:00 Temperature Pulse Rate 79 78 79 Pulse Rate [ From Monitor] Respiratory 20 20 20 Rate Respiratory Rate [ Generalized] Blood Pressure 126/81 126/81 117/75 O2 Sat by Pulse 100 100 100 Oximetry 11/16/18 11/16/18 11/16/18 05:16 05:30 05:46 Temperature Pulse Rate 81 83 87 Pulse Rate [ From Monitor] Respiratory 20 20 20 Rate Respiratory Rate [ Generalized] Blood Pressure 117/75 117/75 117/75 O2 Sat by Pulse 100 100 100 Oximetry 11/16/18 11/16/18 11/16/18 06:00 06:16 06:30 Temperature Pulse Rate 86 85 84 Pulse Rate [ From Monitor] Respiratory 21 20 20 Rate Respiratory Rate [ Generalized] Blood Pressure 143/76 143/76 143/76 O2 Sat by Pulse 100 100 100 Oximetry 11/16/18 11/16/18 11/16/18 06:46 07:00 07:16 Temperature Pulse Rate 85 90 85 Pulse Rate [ From Monitor] Respiratory 20 20 20 Rate Respiratory Rate [ Generalized] Blood Pressure 143/76 157/79 157/79 O2 Sat by Pulse 100 100 100 Oximetry 11/16/18 11/16/18 11/16/18 07:30 08:00 08:40 Temperature 99.8 F H Pulse Rate 83 88 Pulse Rate [ From Monitor] Respiratory 20 Rate Respiratory Rate [ Generalized] Blood Pressure 157/79 137/71 O2 Sat by Pulse 100 100 Oximetry - General Appearance General appearance: well-developed, well-nourished, intubated EENT: ATNC, PERRL Neck: no JVD, no carotid bruit Respiratory: Present: Clear to Ascultation Cardiology: regular, S1S2 Gastrointestinal: normoactive bowel sounds, no tenderness, no distended Integumentary: no rash, warm and dry Neurologic: other (intubated) Musculoskeletal: other (no edema in BLE) Psychiatric: other (intubated) - Lab 11/16/18 04:49 11/16/18 04:49 Most recent lab results Calcium 8.3 mg/dL (8.4-10.2) L 11/16/18 04:49 Phosphorus 3.50 mg/dL (2.5-4.5) 11/12/18 04:44 Magnesium 2.00 mg/dL (1.7-2.3) 11/12/18 04:44 Medications & Allergies - Medications Allergies/Adverse Reactions: Allergies No Known Allergies Allergy (Verified 03/17/18 11:54) Home Medications: Home Medications Medication Instructions Recorded Confirmed Last Taken Type Esomeprazole Magnesium [NexIUM] 20 mg PO QDAY #30 suspdr.pkt 03/17/18 11/07/18 Unknown Rx HYDROcodone/APAP 5-325 [[place] 1 each PO Q6HR PRN #15 tablet 03/17/18 11/07/18 Unknown Rx 5/325] Metoclopramide [Reglan] 10 mg PO TID #21 tab 03/17/18 11/07/18 Unknown Rx Ondansetron [Zofran Odt] 4 mg PO Q4HR PRN #20 tab.rapdis 03/17/18 11/07/18 Unknown Rx Active Medications: Generic Name Dose Route Start Last Admin Trade Name Freq PRN Reason Stop Dose Admin Acetaminophen 650 mg 11/06/18 22:22 11/11/18 07:33 Tylenol FEEDTUBE 650 mg Q6H PRN Administration Fever >101 Lipase/Protease/Amylase 1 each 11/08/18 18:38 Pancreazraji [place] 10,500 Unit FEEDTUBE PRN PRN For Clogged Feeding Tube Apixaban 2.5 mg 11/13/18 10:00 11/15/18 21:21 Eliquis FEEDTUBE 2.5 mg BID MARIAJOSE Administration Chlorpromazine HCl 10 mg 11/07/18 08:07 11/10/18 05:36 Thorazine PO 10 mg Q6H PRN Administration Hiccups Clonazepam 0.5 mg 11/12/18 16:49 11/13/18 23:10 Klonopin PO 0.5 mg Q12H PRN Administration myoclonic jerks Dextrose 50 ml 11/07/18 16:46 11/10/18 23:43 D50w (25gm) Syringe IV 50 ml PRN PRN Administration Hypoglycemia Fentanyl 50 mcg 11/06/18 08:37 Sublimaze IV Q10MIN PRN ANALGESIA Hydralazine HCl 10 mg 11/08/18 00:56 11/14/18 08:34 Apresoline IV 10 mg Q4H PRN Administration Hypertension Hydralazine HCl 50 mg 11/14/18 09:16 11/16/18 06:46 Apresoline PO 50 mg Q8HR MARIAJOSE Administration Hydrophilic Ointment 1 applic 11/06/18 08:26 11/10/18 19:52 Vaseline Lip Therapy TP 1 applic Q2HR PRN Administration Dry Lips Fentanyl Citrate 2,000 mcg in 100 mls @ 4.309 mls/hr 11/06/18 10:00 11/15/18 17:00 Fentanyl Drip Premix IV 1 mcg/kg/hr TITR MARIAJOSE 4.309 mls/hr Titration Protocol 1 MCG/KG/HR Levetiracetam 750 mg/ Dextrose 107.5 mls @ 400 mls/hr 11/12/18 22:00 11/15/18 21:21 IV 400 mls/hr Q12HR MARIAJOSE Administration Sodium Chloride 100 mls @ 999 mls/hr 11/14/18 11:33 Nacl 0.9% IV MARY PRN Hypotension Insulin Human Isoph/Insulin Regular 32 unit 11/14/18 10:18 11/15/18 18:12 Humulin 70/30 SUB-Q 32 unit BIDDIAB MARIAJOSE Administration Insulin Human Regular 0 units 11/07/18 18:00 11/16/18 06:47 Humulin R SUB-Q 8 units Q6HR MARIAJOSE Administration Protocol Lansoprazole 30 mg 11/09/18 10:00 11/15/18 21:21 Prevacid Solutab FEEDTUBE 30 mg BID MARIAJOSE Administration Lorazepam 2 mg 11/12/18 08:31 11/15/18 14:25 Ativan IV 2 mg Q4H PRN Administration Agitation Metoprolol Tartrate 50 mg 11/14/18 10:00 11/16/18 03:38 Lopressor PO 50 mg Q6H MARIAJOSE Administration Modafinil 100 mg 11/11/18 10:00 11/15/18 11:14 Provigil PO 100 mg QAM MARIAJOSE Administration Multi-Ingred Cream/Lotion/Oil/Oint 1 applic 11/06/18 08:26 Artificial Tears Ophth Oint OU Q4HR PRN Dry Eye(s) Simple Syrup 15 ml 11/08/18 18:38 Simple Syrup FEEDTUBE PRN PRN Hypoglycemia Simple Syrup 30 ml 11/08/18 18:38 Simple Syrup FEEDTUBE PRN PRN Hypoglycemia Sodium Bicarbonate 325 mg 11/08/18 18:38 Sodium Bicarbonate FEEDTUBE PRN PRN For Clogged Feeding Tube Sodium Chloride 10 ml 11/06/18 22:00 11/15/18 21:23 Sodium Chloride Flush Syringe 10 Ml IV 10 ml BID MARIAJOSE Administration Sodium Chloride 10 ml 11/06/18 12:42 11/13/18 10:30 Sodium Chloride Flush Syringe 10 Ml IV 10 ml PRN PRN Administration LINE FLUSH Tamsulosin HCl 0.4 mg 11/10/18 13:00 11/15/18 11:15 Flomax PO 0.4 mg QDAY MARIAJOSE Administration
[2018-11-16] MEDS: PREVACID SOLUTAB FEEDTUBE SCH ×2 (09:05→21:34)
[2018-11-16] MEDS: PROVIGIL PO SCH (09:05)
[2018-11-16] MEDS: FLOMAX PO SCH (09:05)
[2018-11-16] MEDS: ELIQUIS FEEDTUBE SCH ×2 (09:05→21:35)
[2018-11-16] MEDS: SODIUM CHLORIDE FLUSH SYRINGE 10 ML IV SCH ×2 (09:06→21:35)
[2018-11-16] MEDS: KEPPRA 750 MG in D5W 100 ML IV SCH ×2 (09:06→21:40)
[2018-11-16] MEDS ORDERED: NACL 0.9% 1000 ML 2,000 ML ONE (10:24)
--- NOTE | 2018-11-16 11:07 | Progress Note ---
Assessment and Plan Acute hypoxemic respiratory failure, on mechanical ventilator support. Diabetic ketoacidosis. Severe metabolic acidosis. Severe sepsis with shock. Acute encephalopathy that appears to be toxic metabolic. End-stage renal disease, on dialysis. Hyperkalemia at presentation. Diabetes. Peripheral vascular disease. Anemia that is macrocytic. Elevated serum transaminases, likely representing shock liver. Mild hyponatremia, pseudohyponatremia actually. Lactic acidosis. (AMS remains a rate limiting factor to safe extubation and he will likely need a tracheostomy) - tracheostomy and PEg shortly - continue daily SAT's and SBT assessment in am as tolerated - prn sedation target for RASS 0 to -1 - wean off vasopressors for MAP > 65 mmHg (off now) - continue to wean supplemental oxygen to keep O2 sats > 90% - EEG Impression noted re: [Anoxic brain injury with interval improvement of cli nical status. I have reviewed the EEG which does not show any epileptiform activity or seizure activity. The background rhythm is a little slow other than that EEG is normal] - will follow clinically for a few more days before deciding on tracheostomy vs trial of extubation - continue Provigil - continue baclofen for myoclonic activity / hiccups - follow clinically off AB's for now ) - continue bronchodilators with pulmonary hygiene per RT - Lung protective strategies - VAP bundle addressed - continue HD/UF as tolerated for toxin and volume clearance - neurology evaluation ongoing - Monitor renal indices closely - continue to avoid nephrotoxic agents, adjust all medications for CrCL - Strict intake and output monitoring - continue enteral nutrition as tolerated - continue accuchecks with glycemic control per SSI for target glucose of 140- 180 mg/dL - Maintenance of sleep -wake cycle - Mobility protocol for pressure ulcer prophylaxis - continue GI & VTE prophylaxis - Influenza and pneumonia vaccination per protocol ... care plan discussed at length with mother at bedside PROGNOSIS: GUARDED CONDITION: CRITICAL CODE STATUS: FULL CODE The high probability of a clinically significant, sudden or life-threatening deterioration of the [respiratory, neurology, renal] system(s) required my full and direct attention, intervention and personal management. The aggregate critical care time was [32] minutes without overlap. Time includes spent on; [x] Data Review and interpretation [x] Patient assessment and monitoring of vital signs [x] Documentation [x] Medication orders and management Subjective Date of service: 11/16/18 Principal diagnosis: Ac hypoxemic resp failure; DKA; Severe sepsis with shock; ESRD on dialysis Interval history: Patient is seen today for: Acute hypoxemic respiratory failure on MVS; DKA; Severe metabolic acidosis; Severe sepsis with shock; Acute encephalopathy that appears to be toxic metabolic; ESRD on dialysis; DM II; Peripheral vascular disease. Seen and examined at bedside; 24hour events reviewed; nursing and respiratory care staff consulted; no adverse overnight events reported to me; remains on MVS; AMS is persistent; tolerating dialysis without vasopressor support; No seizures reported Objective Vital Signs - 12hr 11/15/18 11/15/18 11/15/18 23:16 23:30 23:46 Temperature Pulse Rate 88 89 90 Pulse Rate [ From Monitor] Respiratory 20 20 20 Rate Blood Pressure 153/84 153/84 153/84 O2 Sat by Pulse 100 100 100 Oximetry 11/16/18 11/16/18 11/16/18 00:00 00:16 00:22 Temperature 97.4 F L Pulse Rate 90 94 H 90 Pulse Rate [ 96 H From Monitor] Respiratory 20 20 Rate Blood Pressure 138/76 138/76 135/65 O2 Sat by Pulse 100 100 100 Oximetry 11/16/18 11/16/18 11/16/18 00:30 00:46 01:00 Temperature Pulse Rate 89 90 99 H Pulse Rate [ From Monitor] Respiratory 20 20 16 Rate Blood Pressure 138/76 138/76 133/75 O2 Sat by Pulse 100 100 100 Oximetry 11/16/18 11/16/18 11/16/18 01:16 01:30 01:46 Temperature Pulse Rate 91 H 89 90 Pulse Rate [ From Monitor] Respiratory 20 20 20 Rate Blood Pressure 133/75 133/75 133/75 O2 Sat by Pulse 100 100 100 Oximetry 11/16/18 11/16/18 11/16/18 02:00 02:16 02:30 Temperature Pulse Rate 92 H 87 88 Pulse Rate [ From Monitor] Respiratory 20 20 20 Rate Blood Pressure 133/79 133/79 133/79 O2 Sat by Pulse 100 100 100 Oximetry 11/16/18 11/16/18 11/16/18 02:46 03:00 03:16 Temperature Pulse Rate 92 H 89 93 H Pulse Rate [ From Monitor] Respiratory 20 20 20 Rate Blood Pressure 133/79 139/81 139/81 O2 Sat by Pulse 100 100 100 Oximetry 11/16/18 11/16/18 11/16/18 03:30 03:34 03:38 Temperature Pulse Rate 94 H 91 H 96 H Pulse Rate [ From Monitor] Respiratory 13 Rate Blood Pressure 139/81 155/73 168/76 O2 Sat by Pulse 100 100 Oximetry 11/16/18 11/16/18 11/16/18 03:46 04:00 04:16 Temperature 99.0 F Pulse Rate 93 H 88 82 Pulse Rate [ 94 H From Monitor] Respiratory 20 20 20 Rate Blood Pressure 139/81 126/81 126/81 O2 Sat by Pulse 100 100 100 Oximetry 11/16/18 11/16/18 11/16/18 04:30 04:46 05:00 Temperature Pulse Rate 79 78 79 Pulse Rate [ From Monitor] Respiratory 20 20 20 Rate Blood Pressure 126/81 126/81 117/75 O2 Sat by Pulse 100 100 100 Oximetry 11/16/18 11/16/18 11/16/18 05:16 05:30 05:46 Temperature Pulse Rate 81 83 87 Pulse Rate [ From Monitor] Respiratory 20 20 20 Rate Blood Pressure 117/75 117/75 117/75 O2 Sat by Pulse 100 100 100 Oximetry 11/16/18 11/16/18 11/16/18 06:00 06:16 06:30 Temperature Pulse Rate 86 85 84 Pulse Rate [ From Monitor] Respiratory 21 20 20 Rate Blood Pressure 143/76 143/76 143/76 O2 Sat by Pulse 100 100 100 Oximetry 11/16/18 11/16/18 11/16/18 06:46 07:00 07:16 Temperature Pulse Rate 85 90 85 Pulse Rate [ From Monitor] Respiratory 20 20 20 Rate Blood Pressure 143/76 157/79 157/79 O2 Sat by Pulse 100 100 100 Oximetry 11/16/18 11/16/18 11/16/18 07:30 08:00 08:40 Temperature 99.8 F H Pulse Rate 83 88 Pulse Rate [ From Monitor] Respiratory 20 Rate Blood Pressure 157/79 137/71 O2 Sat by Pulse 100 100 Oximetry 11/16/18 09:19 Temperature Pulse Rate 99 H Pulse Rate [ From Monitor] Respiratory Rate Blood Pressure 99/75 O2 Sat by Pulse Oximetry Constitutional: appears uncomfortable, other (middle aged AAM, normocephalic and atraumatic on MVS) Eyes: non-icteric ENT: oropharynx moist, other (ETT 25 cm FITO) Neck: supple, no lymphadenopathy, no JVD Effort: mildly labored Ascultation: Bilateral: diminished breath sounds, rhonchi Percussion: Bilateral: not dull Cardiovascular: regular rate and rhythm Gastrointestinal: normoactive bowel sounds, soft, non-tender, non-distended Integumentary: rash Extremities: no cyanosis, pulses normal, no ischemia or petechiae, edema Neurologic: pupils equal and round (minimally reactive), unable to assess, other (intermittent myoclonic type jerks) Psychiatric: other (unable to assess re: AMS) CBC and BMP: 11/23/18 04:39 11/23/18 04:39 ABG, PT/INR, D-dimer: ABG POC ABG pH 7.418 (7.35-7.45) 11/11/18 05:31 POC ABG pCO2 48.8 (35-45) H 11/11/18 05:31 POC ABG pO2 109 (80-105) H 11/11/18 05:31 POC ABG HCO3 31.5 (22-26 mml/L) 11/11/18 05:31 POC ABG Total CO2 33 (23-27mmol/L) 11/11/18 05:31 POC ABG O2 Sat 98 11/11/18 05:31 Abnormal lab findings: Abnormal Labs 11/06/18 11/06/18 11/06/18 08:22 09:02 09:02 WBC 20.1 H RBC 3.40 L Hgb 10.5 L Hct MCV 119 H MCHC 26 L RDW 15.7 H Plt Count Lymph % (Auto) Morris % (Auto) Lymph # Morris # Seg Neutrophils % 80.1 H Seg Neuts % (Manual) 76.0 H Lymphocytes % (Manual) 4.0 L Monocytes % (Manual) Nucleated RBC % 1.0 H Seg Neutrophils # 16.1 H Seg Neutrophils # Man 15.3 H Lymphocytes # (Manual) 0.8 L Monocytes # (Manual) POC ABG pH POC ABG pCO2 POC ABG pO2 VBG pH Sodium 129 L Potassium 7.7 H* Chloride 79.7 L Carbon Dioxide 4 L* BUN 93 H Creatinine 7.4 H Glucose 1469 H* POC Glucose > 500 H Hemoglobin A1c Lactic Acid Calcium Phosphorus Magnesium Direct Bilirubin AST 2679 H ALT 1175 H C-Reactive Protein Total Protein 6.1 L Albumin 2.9 L Salicylates Acetaminophen Heparin-induced Plt Ab 11/06/18 11/06/18 11/06/18 09:02 09:02 09:02 WBC RBC Hgb Hct MCV MCHC RDW Plt Count Lymph % (Auto) Morris % (Auto) Lymph # Morris # Seg Neutrophils % Seg Neuts % (Manual) Lymphocytes % (Manual) Monocytes % (Manual) Nucleated RBC % Seg Neutrophils # Seg Neutrophils # Man Lymphocytes # (Manual) Monocytes # (Manual) POC ABG pH POC ABG pCO2 POC ABG pO2 VBG pH Sodium Potassium Chloride Carbon Dioxide BUN Creatinine Glucose POC Glucose Hemoglobin A1c Lactic Acid 9.40 H* Calcium Phosphorus Magnesium Direct Bilirubin AST ALT C-Reactive Protein Total Protein Albumin Salicylates < 0.3 L Acetaminophen < 5.0 L Heparin-induced Plt Ab 11/06/18 11/06/18 11/06/18 09:03 10:19 10:19 WBC RBC Hgb Hct MCV MCHC RDW Plt Count Lymph % (Auto) Morris % (Auto) Lymph # Morris # Seg Neutrophils % Seg Neuts % (Manual) Lymphocytes % (Manual) Monocytes % (Manual) Nucleated RBC % Seg Neutrophils # Seg Neutrophils # Man Lymphocytes # (Manual) Monocytes # (Manual) POC ABG pH 6.841 L POC ABG pCO2 POC ABG pO2 VBG pH Sodium 131 L Potassium 8.9 H* Chloride 85.3 L Carbon Dioxide 6 L* BUN 90 H Creatinine 7.1 H Glucose 1353 H* POC Glucose Hemoglobin A1c Lactic Acid Calcium 7.8 L Phosphorus 14.50 H Magnesium 2.70 H Direct Bilirubin AST ALT C-Reactive Protein Total Protein Albumin Salicylates Acetaminophen Heparin-induced Plt Ab 11/06/18 11/06/18 11/06/18 12:07 13:22 13:22 WBC RBC Hgb Hct MCV MCHC RDW Plt Count Lymph % (Auto) Morris % (Auto) Lymph # Morris # Seg Neutrophils % Seg Neuts % (Manual) Lymphocytes % (Manual) Monocytes % (Manual) Nucleated RBC % Seg Neutrophils # Seg Neutrophils # Man Lymphocytes # (Manual) Monocytes # (Manual) POC ABG pH POC ABG pCO2 POC ABG pO2 VBG pH 6.982 L* Sodium 135 L Potassium 7.0 H* D Chloride 88.4 L Carbon Dioxide 5 L* BUN 89 H Creatinine 7.2 H Glucose 1326 H* POC Glucose Hemoglobin A1c Lactic Acid 8.50 H* Calcium Phosphorus Magnesium Direct Bilirubin AST ALT C-Reactive Protein Total Protein Albumin Salicylates Acetaminophen Heparin-induced Plt Ab 11/06/18 11/06/18 11/06/18 14:15 14:15 15:21 WBC RBC Hgb Hct MCV MCHC RDW Plt Count Lymph % (Auto) Morris % (Auto) Lymph # Morris # Seg Neutrophils % Seg Neuts % (Manual) Lymphocytes % (Manual) Monocytes % (Manual) Nucleated RBC % Seg Neutrophils # Seg Neutrophils # Man Lymphocytes # (Manual) Monocytes # (Manual) POC ABG pH POC ABG pCO2 POC ABG pO2 VBG pH Sodium Potassium 6.6 H* 6.0 H Chloride 95.3 L 93.3 L Carbon Dioxide 4 L* 6 L* BUN 83 H 91 H Creatinine 6.9 H 7.3 H Glucose 1205 H* 1174 H* POC Glucose Hemoglobin A1c Lactic Acid Calcium 8.2 L Phosphorus 13.00 H Magnesium 2.60 H Direct Bilirubin AST ALT C-Reactive Protein Total Protein Albumin Salicylates Acetaminophen Heparin-induced Plt Ab 11/06/18 11/06/18 11/06/18 15:21 16:14 16:33 WBC RBC Hgb Hct MCV MCHC RDW Plt Count Lymph % (Auto) Morris % (Auto) Lymph # Morris # Seg Neutrophils % Seg Neuts % (Manual) Lymphocytes % (Manual) Monocytes % (Manual) Nucleated RBC % Seg Neutrophils # Seg Neutrophils # Man Lymphocytes # (Manual) Monocytes # (Manual) POC ABG pH 7.004 L POC ABG pCO2 33.0 L POC ABG pO2 178 H VBG pH Sodium Potassium Chloride Carbon Dioxide BUN Creatinine Glucose POC Glucose > 500 H Hemoglobin A1c Lactic Acid 7.60 H* Calcium Phosphorus Magnesium Direct Bilirubin AST ALT C-Reactive Protein Total Protein Albumin Salicylates Acetaminophen Heparin-induced Plt Ab 11/06/18 11/06/18 11/06/18 17:34 19:30 19:30 WBC RBC Hgb Hct MCV MCHC RDW Plt Count Lymph % (Auto) [place] % (Auto) Lymph # Morris # Seg Neutrophils % Seg Neuts % (Manual) Lymphocytes % (Manual) Monocytes % (Manual) Nucleated RBC % Seg Neutrophils # Seg Neutrophils # Man Lymphocytes # (Manual) Monocytes # (Manual) POC ABG pH POC ABG pCO2 POC ABG pO2 VBG pH Sodium Potassium 5.5 H Chloride 97.4 L 97.7 L Carbon Dioxide 10 L 11 L BUN 88 H 87 H Creatinine 7.5 H 7.6 H Glucose 1054 H* 954 H* POC Glucose Hemoglobin A1c Lactic Acid Calcium 7.7 L 7.4 L Phosphorus Magnesium Direct Bilirubin AST ALT C-Reactive Protein 1.90 H Total Protein Albumin Salicylates Acetaminophen Heparin-induced Plt Ab 11/06/18 11/06/18 11/06/18 20:31 20:40 20:40 WBC RBC Hgb Hct MCV MCHC RDW Plt Count Lymph % (Auto) [place] % (Auto) Lymph # Morris # Seg Neutrophils % Seg Neuts % (Manual) Lymphocytes % (Manual) Monocytes % (Manual) Nucleated RBC % Seg Neutrophils # Seg Neutrophils # Man Lymphocytes # (Manual) Monocytes # (Manual) POC ABG pH 7.245 L POC ABG pCO2 POC ABG pO2 132 H VBG pH Sodium Potassium Chloride Carbon Dioxide BUN Creatinine Glucose 907 H* POC Glucose Hemoglobin A1c Lactic Acid 4.40 H* Calcium Phosphorus Magnesium Direct Bilirubin AST ALT C-Reactive Protein Total Protein Albumin Salicylates Acetaminophen Heparin-induced Plt Ab 11/06/18 11/06/18 11/06/18 22:05 22:40 23:35 WBC RBC Hgb Hct MCV MCHC RDW Plt Count Lymph % (Auto) [place] % (Auto) Lymph # Morris # Seg Neutrophils % Seg Neuts % (Manual) Lymphocytes % (Manual) Monocytes % (Manual) Nucleated RBC % Seg Neutrophils # Seg Neutrophils # Man Lymphocytes # (Manual) Monocytes # (Manual) POC ABG pH POC ABG pCO2 POC ABG pO2 VBG pH Sodium Potassium Chloride Carbon Dioxide 13 L BUN 86 H Creatinine 7.8 H Glucose 822 H* 726 H* POC Glucose Hemoglobin A1c Lactic Acid 3.40 H* Calcium 7.5 L Phosphorus Magnesium Direct Bilirubin AST ALT C-Reactive Protein Total Protein Albumin Salicylates Acetaminophen Heparin-induced Plt Ab 11/07/18 11/07/18 11/07/18 01:25 01:26 03:15 WBC RBC Hgb Hct MCV MCHC RDW Plt Count Lymph % (Auto) [place] % (Auto) Lymph # Morris # Seg Neutrophils % Seg Neuts % (Manual) Lymphocytes % (Manual) Monocytes % (Manual) Nucleated RBC % Seg Neutrophils # Seg Neutrophils # Man Lymphocytes # (Manual) Monocytes # (Manual) POC ABG pH POC ABG pCO2 POC ABG pO2 VBG pH Sodium Potassium Chloride Carbon Dioxide BUN Creatinine Glucose 602 H* POC Glucose > 500 H > 500 H Hemoglobin A1c Lactic Acid Calcium Phosphorus Magnesium Direct Bilirubin AST ALT C-Reactive Protein Total Protein Albumin Salicylates Acetaminophen Heparin-induced Plt Ab 11/07/18 11/07/18 11/07/18 03:20 04:32 04:47 WBC RBC Hgb Hct MCV MCHC RDW Plt Count Lymph % (Auto) [place] % (Auto) Lymph # Morris # Seg Neutrophils % Seg Neuts % (Manual) Lymphocytes % (Manual) Monocytes % (Manual) Nucleated RBC % Seg Neutrophils # Seg Neutrophils # Man Lymphocytes # (Manual) Monocytes # (Manual) POC ABG pH POC ABG pCO2 30.3 L POC ABG pO2 153 H VBG pH Sodium 149 H Potassium Chloride Carbon Dioxide 16 L BUN 86 H Creatinine 8.3 H Glucose 499.2 H POC Glucose 360 H Hemoglobin A1c Lactic Acid Calcium 7.6 L Phosphorus Magnesium Direct Bilirubin AST ALT C-Reactive Protein Total Protein Albumin Salicylates Acetaminophen Heparin-induced Plt Ab 11/07/18 11/07/18 11/07/18 05:26 06:35 06:36 WBC RBC Hgb Hct MCV MCHC RDW Plt Count Lymph % (Auto) [place] % (Auto) Lymph # Morris # Seg Neutrophils % Seg Neuts % (Manual) Lymphocytes % (Manual) Monocytes % (Manual) Nucleated RBC % Seg Neutrophils # Seg Neutrophils # Man Lymphocytes # (Manual) Monocytes # (Manual) POC ABG pH POC ABG pCO2 POC ABG pO2 VBG pH Sodium 153 H Potassium 3.2 L Chloride 109.7 H Carbon Dioxide BUN 84 H Creatinine 8.6 H Glucose 249 H POC Glucose 341 H 274 H Hemoglobin A1c Lactic Acid Calcium 7.6 L Phosphorus Magnesium Direct Bilirubin AST ALT C-Reactive Protein Total Protein Albumin Salicylates Acetaminophen Heparin-induced Plt Ab 11/07/18 11/07/18 11/07/18 07:33 09:00 09:52 WBC RBC Hgb Hct MCV MCHC RDW Plt Count Lymph % (Auto) [place] % (Auto) Lymph # Morris # Seg Neutrophils % Seg Neuts % (Manual) Lymphocytes % (Manual) Monocytes % (Manual) Nucleated RBC % Seg Neutrophils # Seg Neutrophils # Man Lymphocytes # (Manual) Monocytes # (Manual) POC ABG pH POC ABG pCO2 POC ABG pO2 VBG pH Sodium Potassium Chloride Carbon Dioxide BUN Creatinine Glucose POC Glucose 243 H 182 H 227 H Hemoglobin A1c Lactic Acid Calcium Phosphorus Magnesium Direct Bilirubin AST ALT C-Reactive Protein Total Protein Albumin Salicylates Acetaminophen Heparin-induced Plt Ab 11/07/18 11/07/18 11/07/18 10:50 10:50 10:50 WBC 11.3 H RBC 2.85 L Hgb 8.7 L Hct 25.3 L D MCV MCHC RDW Plt Count Lymph % (Auto) 9.7 L Morris % (Auto) Lymph # 1.1 L Morris # Seg Neutrophils % 83.3 H Seg Neuts % (Manual) Lymphocytes % (Manual) Monocytes % (Manual) Nucleated RBC % Seg Neutrophils # 9.4 H Seg Neutrophils # Man Lymphocytes # (Manual) Monocytes # (Manual) POC ABG pH POC ABG pCO2 POC ABG pO2 VBG pH Sodium 154 H Potassium 3.2 L Chloride 110.2 H Carbon Dioxide BUN 82 H Creatinine 8.3 H Glucose 186 H POC Glucose 200 H Hemoglobin A1c Lactic Acid Calcium 7.3 L Phosphorus Magnesium Direct Bilirubin AST ALT C-Reactive Protein Total Protein Albumin Salicylates Acetaminophen Heparin-induced Plt Ab 11/07/18 11/07/18 11/07/18 12:00 12:05 13:13 WBC RBC Hgb Hct MCV MCHC RDW Plt Count Lymph % (Auto) [place] % (Auto) Lymph # Morris # Seg Neutrophils % Seg Neuts % (Manual) Lymphocytes % (Manual) Monocytes % (Manual) Nucleated RBC % Seg Neutrophils # Seg Neutrophils # Man Lymphocytes # (Manual) Monocytes # (Manual) POC ABG pH POC ABG pCO2 POC ABG pO2 VBG pH Sodium Potassium Chloride Carbon Dioxide BUN Creatinine Glucose POC Glucose 179 H 190 H Hemoglobin A1c Lactic Acid 2.50 H* Calcium Phosphorus Magnesium Direct Bilirubin AST ALT C-Reactive Protein Total Protein Albumin Salicylates Acetaminophen Heparin-induced Plt Ab 11/07/18 11/07/18 11/07/18 13:20 14:05 15:18 WBC RBC Hgb Hct MCV MCHC RDW Plt Count Lymph % (Auto) [place] % (Auto) Lymph # Morris # Seg Neutrophils % Seg Neuts % (Manual) Lymphocytes % (Manual) Monocytes % (Manual) Nucleated RBC % Seg Neutrophils # Seg Neutrophils # Man Lymphocytes # (Manual) Monocytes # (Manual) POC ABG pH POC ABG pCO2 POC ABG pO2 VBG pH Sodium Potassium 3.1 L Chloride Carbon Dioxide BUN 50 H Creatinine 5.0 H Glucose 176 H POC Glucose 189 H 215 H Hemoglobin A1c Lactic Acid Calcium 7.4 L Phosphorus Magnesium Direct Bilirubin AST ALT C-Reactive Protein Total Protein Albumin Salicylates Acetaminophen Heparin-induced Plt Ab 11/07/18 11/07/18 11/07/18 16:25 17:37 23:23 WBC RBC Hgb Hct MCV MCHC RDW Plt Count Lymph % (Auto) Morris % (Auto) Lymph # Morris # Seg Neutrophils % Seg Neuts % (Manual) Lymphocytes % (Manual) Monocytes % (Manual) Nucleated RBC % Seg Neutrophils # Seg Neutrophils # Man Lymphocytes # (Manual) Monocytes # (Manual) POC ABG pH POC ABG pCO2 POC ABG pO2 VBG pH Sodium Potassium Chloride Carbon Dioxide BUN Creatinine Glucose POC Glucose 180 H 215 H 234 H Hemoglobin A1c Lactic Acid Calcium Phosphorus Magnesium Direct Bilirubin AST ALT C-Reactive Protein Total Protein Albumin Salicylates Acetaminophen Heparin-induced Plt Ab 11/08/18 11/08/18 11/08/18 04:17 04:23 04:23 WBC RBC 2.98 L Hgb 9.3 L Hct 26.7 L MCV MCHC 35 H RDW Plt Count 130 L Lymph % (Auto) Morris % (Auto) Lymph # Morris # Seg Neutrophils % 80.3 H Seg Neuts % (Manual) Lymphocytes % (Manual) Monocytes % (Manual) Nucleated RBC % Seg Neutrophils # 7.8 H Seg Neutrophils # Man Lymphocytes # (Manual) Monocytes # (Manual) POC ABG pH 7.520 H POC ABG pCO2 POC ABG pO2 111 H VBG pH Sodium Potassium 3.0 L Chloride Carbon Dioxide BUN 44 H Creatinine 6.3 H Glucose 245 H POC Glucose Hemoglobin A1c Lactic Acid Calcium 7.3 L Phosphorus Magnesium Direct Bilirubin AST ALT C-Reactive Protein Total Protein Albumin Salicylates Acetaminophen Heparin-induced Plt Ab 11/08/18 11/08/18 11/08/18 05:19 08:00 08:00 WBC RBC Hgb Hct MCV MCHC RDW Plt Count Lymph % (Auto) [place] % (Auto) Lymph # Morris # Seg Neutrophils % Seg Neuts % (Manual) Lymphocytes % (Manual) Monocytes % (Manual) Nucleated RBC % Seg Neutrophils # Seg Neutrophils # Man Lymphocytes # (Manual) Monocytes # (Manual) POC ABG pH POC ABG pCO2 POC ABG pO2 VBG pH Sodium Potassium Chloride Carbon Dioxide BUN Creatinine Glucose POC Glucose 253 H Hemoglobin A1c Lactic Acid 2.70 H* Calcium Phosphorus Magnesium Direct Bilirubin 0.3 H AST 932 H ALT 582 H C-Reactive Protein Total Protein 5.4 L Albumin 2.6 L Salicylates Acetaminophen Heparin-induced Plt Ab 11/08/18 11/08/18 11/08/18 11:36 17:51 21:59 WBC RBC Hgb Hct MCV MCHC RDW Plt Count Lymph % (Auto) [place] % (Auto) Lymph # Morris # Seg Neutrophils % Seg Neuts % (Manual) Lymphocytes % (Manual) Monocytes % (Manual) Nucleated RBC % Seg Neutrophils # Seg Neutrophils # Man Lymphocytes # (Manual) Monocytes # (Manual) POC ABG pH 7.459 H POC ABG pCO2 POC ABG pO2 108 H VBG pH Sodium Potassium Chloride Carbon Dioxide BUN Creatinine Glucose POC Glucose 197 H Hemoglobin A1c Lactic Acid Calcium Phosphorus Magnesium Direct Bilirubin AST ALT C-Reactive Protein Total Protein Albumin Salicylates Acetaminophen Heparin-induced Plt Ab Positive H 11/08/18 11/09/18 11/09/18 23:28 00:39 02:20 WBC RBC Hgb Hct MCV MCHC RDW Plt Count Lymph % (Auto) [place] % (Auto) Lymph # Morris # Seg Neutrophils % Seg Neuts % (Manual) Lymphocytes % (Manual) Monocytes % (Manual) Nucleated RBC % Seg Neutrophils # Seg Neutrophils # Man Lymphocytes # (Manual) Monocytes # (Manual) POC ABG pH POC ABG pCO2 POC ABG pO2 VBG pH Sodium Potassium Chloride Carbon Dioxide BUN Creatinine Glucose POC Glucose 418 H 471 H 254 H Hemoglobin A1c Lactic Acid Calcium Phosphorus Magnesium Direct Bilirubin AST ALT C-Reactive Protein Total Protein Albumin Salicylates Acetaminophen Heparin-induced Plt Ab 11/09/18 11/09/18 11/09/18 03:48 06:02 06:02 WBC RBC 2.95 L Hgb 9.2 L Hct 26.7 L MCV MCHC RDW Plt Count 101 L Lymph % (Auto) Morris % (Auto) Lymph # Morris # Seg Neutrophils % Seg Neuts % (Manual) Lymphocytes % (Manual) Monocytes % (Manual) Nucleated RBC % Seg Neutrophils # Seg Neutrophils # Man Lymphocytes # (Manual) Monocytes # (Manual) POC ABG pH POC ABG pCO2 POC ABG pO2 108 H VBG pH Sodium 150 H Potassium Chloride 108.3 H Carbon Dioxide BUN 44 H Creatinine 7.7 H Glucose 102 H POC Glucose Hemoglobin A1c Lactic Acid Calcium 7.2 L Phosphorus Magnesium Direct Bilirubin AST 554 H ALT 461 H C-Reactive Protein Total Protein 5.1 L Albumin 2.6 L Salicylates Acetaminophen Heparin-induced Plt Ab 11/09/18 11/09/18 11/09/18 17:49 18:49 23:32 WBC RBC Hgb Hct MCV MCHC RDW Plt Count Lymph % (Auto) [place] % (Auto) Lymph # Morris # Seg Neutrophils % Seg Neuts % (Manual) Lymphocytes % (Manual) Monocytes % (Manual) Nucleated RBC % Seg Neutrophils # Seg Neutrophils # Man Lymphocytes # (Manual) Monocytes # (Manual) POC ABG pH POC ABG pCO2 46.2 H POC ABG pO2 VBG pH Sodium Potassium Chloride Carbon Dioxide BUN Creatinine Glucose POC Glucose 184 H 150 H Hemoglobin A1c Lactic Acid Calcium Phosphorus Magnesium Direct Bilirubin AST ALT C-Reactive Protein Total Protein Albumin Salicylates Acetaminophen Heparin-induced Plt Ab 11/10/18 11/10/18 11/10/18 02:52 05:00 05:00 WBC RBC 2.95 L Hgb 8.9 L Hct 26.6 L MCV MCHC RDW Plt Count 100 L Lymph % (Auto) Morris % (Auto) Lymph # Morris # Seg Neutrophils % Seg Neuts % (Manual) Lymphocytes % (Manual) Monocytes % (Manual) 8.0 H Nucleated RBC % Seg Neutrophils # Seg Neutrophils # Man Lymphocytes # (Manual) Monocytes # (Manual) POC ABG pH POC ABG pCO2 POC ABG pO2 VBG pH Sodium Potassium Chloride Carbon Dioxide BUN 33 H Creatinine 6.8 H Glucose 251 H POC Glucose 186 H Hemoglobin A1c Lactic Acid Calcium 7.3 L Phosphorus Magnesium Direct Bilirubin AST ALT C-Reactive Protein Total Protein Albumin Salicylates Acetaminophen Heparin-induced Plt Ab 11/10/18 11/10/18 11/10/18 05:16 11:47 17:32 WBC RBC Hgb Hct MCV MCHC RDW Plt Count Lymph % (Auto) [place] % (Auto) Lymph # Morris # Seg Neutrophils % Seg Neuts % (Manual) Lymphocytes % (Manual) Monocytes % (Manual) Nucleated RBC % Seg Neutrophils # Seg Neutrophils # Man Lymphocytes # (Manual) Monocytes # (Manual) POC ABG pH POC ABG pCO2 POC ABG pO2 VBG pH Sodium Potassium Chloride Carbon Dioxide BUN Creatinine Glucose POC Glucose 242 H 261 H 194 H Hemoglobin A1c Lactic Acid Calcium Phosphorus Magnesium Direct Bilirubin AST ALT C-Reactive Protein Total Protein Albumin Salicylates Acetaminophen Heparin-induced Plt Ab 11/10/18 11/11/18 11/11/18 23:39 00:26 04:24 WBC RBC 2.98 L Hgb 9.1 L Hct 27.4 L MCV MCHC RDW Plt Count 114 L Lymph % (Auto) Morris % (Auto) Lymph # Morris # Seg Neutrophils % Seg Neuts % (Manual) Lymphocytes % (Manual) Monocytes % (Manual) 10.0 H Nucleated RBC % Seg Neutrophils # Seg Neutrophils # Man Lymphocytes # (Manual) Monocytes # (Manual) 1.0 H POC ABG pH POC ABG pCO2 POC ABG pO2 VBG pH Sodium Potassium Chloride Carbon Dioxide BUN Creatinine Glucose POC Glucose 60 L 124 H Hemoglobin A1c Lactic Acid Calcium Phosphorus Magnesium Direct Bilirubin AST ALT C-Reactive Protein Total Protein Albumin Salicylates Acetaminophen Heparin-induced Plt Ab 11/11/18 11/11/18 11/11/18 04:24 05:27 05:31 WBC RBC Hgb Hct MCV MCHC RDW Plt Count Lymph % (Auto) Morris % (Auto) Lymph # Morris # Seg Neutrophils % Seg Neuts % (Manual) Lymphocytes % (Manual) Monocytes % (Manual) Nucleated RBC % Seg Neutrophils # Seg Neutrophils # Man Lymphocytes # (Manual) Monocytes # (Manual) POC ABG pH POC ABG pCO2 48.8 H POC ABG pO2 109 H VBG pH Sodium Potassium Chloride Carbon Dioxide BUN 23 H Creatinine 5.5 H Glucose 147 H POC Glucose 172 H Hemoglobin A1c Lactic Acid Calcium 7.9 L Phosphorus Magnesium Direct Bilirubin AST 152 H ALT 247 H C-Reactive Protein Total Protein Albumin 2.3 L Salicylates Acetaminophen Heparin-induced Plt Ab 11/11/18 11/11/18 11/11/18 12:11 17:12 23:41 WBC RBC Hgb Hct MCV MCHC RDW Plt Count Lymph % (Auto) Morris % (Auto) Lymph # Morris # Seg Neutrophils % Seg Neuts % (Manual) Lymphocytes % (Manual) Monocytes % (Manual) Nucleated RBC % Seg Neutrophils # Seg Neutrophils # Man Lymphocytes # (Manual) Monocytes # (Manual) POC ABG pH POC ABG pCO2 POC ABG pO2 VBG pH Sodium Potassium Chloride Carbon Dioxide BUN Creatinine Glucose POC Glucose 343 H 188 H 145 H Hemoglobin A1c Lactic Acid Calcium Phosphorus Magnesium Direct Bilirubin AST ALT C-Reactive Protein Total Protein Albumin Salicylates Acetaminophen Heparin-induced Plt Ab 11/12/18 11/12/18 11/12/18 00:11 04:44 04:44 WBC RBC 2.91 L Hgb 9.0 L Hct 26.9 L MCV MCHC RDW Plt Count Lymph % (Auto) 12.7 L Morris % (Auto) 14.9 H Lymph # 0.8 L Morris # 1.0 H Seg Neutrophils % 71.2 H Seg Neuts % (Manual) Lymphocytes % (Manual) Monocytes % (Manual) Nucleated RBC % Seg Neutrophils # Seg Neutrophils # Man Lymphocytes # (Manual) Monocytes # (Manual) POC ABG pH POC ABG pCO2 POC ABG pO2 VBG pH Sodium Potassium Chloride Carbon Dioxide BUN 22 H Creatinine 5.0 H Glucose 288 H POC Glucose 151 H Hemoglobin A1c Lactic Acid Calcium Phosphorus Magnesium Direct Bilirubin AST 88 H ALT 187 H C-Reactive Protein Total Protein Albumin 2.9 L Salicylates Acetaminophen Heparin-induced Plt Ab 11/12/18 11/12/18 11/12/18 11:48 12:28 17:13 WBC RBC Hgb Hct MCV MCHC RDW Plt Count Lymph % (Auto) Morris % (Auto) Lymph # Morris # Seg Neutrophils % Seg Neuts % (Manual) Lymphocytes % (Manual) Monocytes % (Manual) Nucleated RBC % Seg Neutrophils # Seg Neutrophils # Man Lymphocytes # (Manual) Monocytes # (Manual) POC ABG pH POC ABG pCO2 POC ABG pO2 VBG pH Sodium Potassium Chloride Carbon Dioxide BUN Creatinine Glucose POC Glucose 414 H 437 H 251 H Hemoglobin A1c Lactic Acid Calcium Phosphorus Magnesium Direct Bilirubin AST ALT C-Reactive Protein Total Protein Albumin Salicylates Acetaminophen Heparin-induced Plt Ab 11/13/18 11/13/18 11/13/18 00:43 04:14 04:14 WBC RBC 2.62 L Hgb 8.0 L Hct 24.0 L MCV MCHC RDW Plt Count Lymph % (Auto) Morris % (Auto) 15.8 H Lymph # Morris # 0.9 H Seg Neutrophils % Seg Neuts % (Manual) Lymphocytes % (Manual) Monocytes % (Manual) Nucleated RBC % Seg Neutrophils # Seg Neutrophils # Man Lymphocytes # (Manual) Monocytes # (Manual) POC ABG pH POC ABG pCO2 POC ABG pO2 VBG pH Sodium Potassium Chloride Carbon Dioxide BUN 32 H Creatinine 6.9 H Glucose 190 H POC Glucose 149 H Hemoglobin A1c Lactic Acid Calcium Phosphorus Magnesium Direct Bilirubin AST ALT C-Reactive Protein Total Protein Albumin Salicylates Acetaminophen Heparin-induced Plt Ab 11/13/18 11/13/18 11/13/18 05:53 10:40 12:05 WBC RBC Hgb Hct MCV MCHC RDW Plt Count Lymph % (Auto) Morris % (Auto) Lymph # Morris # Seg Neutrophils % Seg Neuts % (Manual) Lymphocytes % (Manual) Monocytes % (Manual) Nucleated RBC % Seg Neutrophils # Seg Neutrophils # Man Lymphocytes # (Manual) Monocytes # (Manual) POC ABG pH POC ABG pCO2 POC ABG pO2 VBG pH Sodium Potassium Chloride Carbon Dioxide BUN Creatinine Glucose POC Glucose 270 H 405 H 361 H Hemoglobin A1c Lactic Acid Calcium Phosphorus Magnesium Direct Bilirubin AST ALT C-Reactive Protein Total Protein Albumin Salicylates Acetaminophen Heparin-induced Plt Ab 11/13/18 11/13/18 11/14/18 18:48 23:55 04:57 WBC RBC 2.75 L Hgb 8.3 L Hct 25.2 L MCV MCHC RDW Plt Count Lymph % (Auto) Morris % (Auto) 15.8 H Lymph # 0.9 L Morris # 0.9 H Seg Neutrophils % Seg Neuts % (Manual) Lymphocytes % (Manual) Monocytes % (Manual) Nucleated RBC % Seg Neutrophils # Seg Neutrophils # Man Lymphocytes # (Manual) Monocytes # (Manual) POC ABG pH POC ABG pCO2 POC ABG pO2 VBG pH Sodium Potassium Chloride Carbon Dioxide BUN Creatinine Glucose POC Glucose 202 H 254 H Hemoglobin A1c Lactic Acid Calcium Phosphorus Magnesium Direct Bilirubin AST ALT C-Reactive Protein Total Protein Albumin Salicylates Acetaminophen Heparin-induced Plt Ab 11/14/18 11/14/18 11/14/18 04:57 05:33 11:37 WBC RBC Hgb Hct MCV MCHC RDW Plt Count Lymph % (Auto) Morris % (Auto) Lymph # Morris # Seg Neutrophils % Seg Neuts % (Manual) Lymphocytes % (Manual) Monocytes % (Manual) Nucleated RBC % Seg Neutrophils # Seg Neutrophils # Man Lymphocytes # (Manual) Monocytes # (Manual) POC ABG pH POC ABG pCO2 POC ABG pO2 VBG pH Sodium 136 L Potassium Chloride 96.7 L Carbon Dioxide BUN 25 H Creatinine 5.3 H Glucose 235 H POC Glucose 242 H 272 H Hemoglobin A1c Lactic Acid Calcium Phosphorus Magnesium Direct Bilirubin AST ALT C-Reactive Protein Total Protein Albumin Salicylates Acetaminophen Heparin-induced Plt Ab 0611/14/18 11/15/18 18:08 23:21 04:50 WBC RBC 2.76 L Hgb 8.5 L Hct 25.4 L MCV MCHC RDW Plt Count Lymph % (Auto) Morris % (Auto) 14.5 H Lymph # Morris # 1.1 H Seg Neutrophils % Seg Neuts % (Manual) Lymphocytes % (Manual) Monocytes % (Manual) Nucleated RBC % Seg Neutrophils # Seg Neutrophils # Man Lymphocytes # (Manual) Monocytes # (Manual) POC ABG pH POC ABG pCO2 POC ABG pO2 VBG pH Sodium Potassium Chloride Carbon Dioxide BUN Creatinine Glucose POC Glucose 166 H 185 H Hemoglobin A1c Lactic Acid Calcium Phosphorus Magnesium Direct Bilirubin AST ALT C-Reactive Protein Total Protein Albumin Salicylates Acetaminophen Heparin-induced Plt Ab 11/15/18 11/15/18 11/15/18 04:50 04:50 06:01 WBC RBC Hgb Hct MCV MCHC RDW Plt Count Lymph % (Auto) Morris % (Auto) Lymph # Morris # Seg Neutrophils % Seg Neuts % (Manual) Lymphocytes % (Manual) Monocytes % (Manual) Nucleated RBC % Seg Neutrophils # Seg Neutrophils # Man Lymphocytes # (Manual) Monocytes # (Manual) POC ABG pH POC ABG pCO2 POC ABG pO2 VBG pH Sodium Potassium Chloride 95.2 L Carbon Dioxide BUN 21 H Creatinine 4.8 H Glucose 126 H POC Glucose 150 H Hemoglobin A1c 10.1 H Lactic Acid Calcium Phosphorus Magnesium Direct Bilirubin AST ALT 69 H C-Reactive Protein Total Protein Albumin 2.7 L Salicylates Acetaminophen Heparin-induced Plt Ab 11/15/18 11/15/18 11/16/18 13:06 18:08 00:39 WBC RBC Hgb Hct MCV MCHC RDW Plt Count Lymph % (Auto) Morris % (Auto) Lymph # Morris # Seg Neutrophils % Seg Neuts % (Manual) Lymphocytes % (Manual) Monocytes % (Manual) Nucleated RBC % Seg Neutrophils # Seg Neutrophils # Man Lymphocytes # (Manual) Monocytes # (Manual) POC ABG pH POC ABG pCO2 POC ABG pO2 VBG pH Sodium Potassium Chloride Carbon Dioxide BUN Creatinine Glucose POC Glucose 191 H 114 H 147 H Hemoglobin A1c Lactic Acid Calcium Phosphorus Magnesium Direct Bilirubin AST ALT C-Reactive Protein Total Protein Albumin Salicylates Acetaminophen Heparin-induced Plt Ab 11/16/18 11/16/18 11/16/18 04:49 04:49 06:09 WBC RBC 2.60 L Hgb 8.0 L Hct 23.4 L MCV MCHC RDW Plt Count Lymph % (Auto) Morris % (Auto) 14.1 H Lymph # Morris # 1.2 H Seg Neutrophils % Seg Neuts % (Manual) Lymphocytes % (Manual) Monocytes % (Manual) Nucleated RBC % Seg Neutrophils # Seg Neutrophils # Man Lymphocytes # (Manual) Monocytes # (Manual) POC ABG pH POC ABG pCO2 POC ABG pO2 VBG pH Sodium 136 L Potassium Chloride 94.1 L Carbon Dioxide BUN 39 H Creatinine 7.4 H D Glucose 243 H POC Glucose 308 H Hemoglobin A1c Lactic Acid Calcium 8.3 L Phosphorus Magnesium Direct Bilirubin AST ALT C-Reactive Protein Total Protein Albumin 2.2 L Salicylates Acetaminophen Heparin-induced Plt Ab 11/16/18 08:52 WBC RBC Hgb Hct MCV MCHC RDW Plt Count Lymph % (Auto) Morris % (Auto) Lymph # Morris # Seg Neutrophils % Seg Neuts % (Manual) Lymphocytes % (Manual) Monocytes % (Manual) Nucleated RBC % Seg Neutrophils # Seg Neutrophils # Man Lymphocytes # (Manual) Monocytes # (Manual) POC ABG pH POC ABG pCO2 POC ABG pO2 VBG pH Sodium Potassium Chloride Carbon Dioxide BUN Creatinine Glucose POC Glucose 278 H Hemoglobin A1c Lactic Acid Calcium Phosphorus Magnesium Direct Bilirubin AST ALT C-Reactive Protein Total Protein Albumin Salicylates Acetaminophen Heparin-induced Plt Ab Allied health notes reviewed: nursing
--- NOTE | 2018-11-16 11:26 | Progress Note ---
Assessment and Plan Currently stable cardiac status. VSS. Continue supportive measures. Can consider addition of ACEI/ARB in setting of CMP if BPs permit, cont BB. ? Pt initiated on Eliquis per critical care team. No current apparent cardiac indication for systemic AC. Can consider ischemic evaluation if/when medically stabilized and pending neuro status improves. The patient has been seen in conjunction with Dr. Allen who agrees with the assessment and plan of care. - Patient Problems (1) Cardiopulmonary arrest Current Visit: Yes Status: Acute (2) Cardiomyopathy Current Visit: Yes Status: Acute (3) DKA (diabetic ketoacidoses) Current Visit: Yes Status: Acute Qualifiers: Diabetes mellitus type: type 2 Diabetes mellitus complication detail: with coma Qualified Code(s): E11.11 - Type 2 diabetes mellitus with ketoacidosis with coma (4) Metabolic acidosis Current Visit: Yes Status: Acute (5) Anoxic brain injury Current Visit: Yes Status: Suspected (6) ESRD (end stage renal disease) on dialysis Current Visit: Yes Status: Chronic (7) Anemia Current Visit: Yes Status: Acute (8) Thrombocytopenia Current Visit: Yes Status: Acute (9) PAD (peripheral artery disease) Current Visit: Yes Status: Chronic (10) History of seizures Current Visit: Yes Status: Chronic (11) Tobacco use Current Visit: Yes Status: Chronic Subjective Date of service: 11/16/18 Principal diagnosis: Ac hypoxemic resp failure; DKA; Severe sepsis with shock; ESRD on dialysis Interval history: pt remains intubated, nonresponsive. in SR on tele. mother at bedside. Objective Last Vital Signs Temp 99.8 F H 11/16/18 08:00 Pulse 99 H 11/16/18 09:19 Resp 20 11/16/18 07:30 BP 99/75 11/16/18 09:19 Pulse Ox 100 11/16/18 08:40 - Physical Examination General: Other (intubated, unresponsive) HEENT: Positive: Normocephaly, Mucus Membranes Moist Neck: Positive: neck supple, trachea midline Cardiac: Positive: Reg Rate and Rhythm, S1/S2 Lungs: Positive: Decreased Breath Sounds Neuro: Positive: Other (Unresponsive) Abdomen: Positive: Soft, Active Bowel Sounds Skin: Positive: Clear Musculoskeletal: other (No purposeful movement.) Extremities: Present: normal, Cool. Absent: edema - Labs and Meds Cardiac Enzymes 11/16/18 Range/Units 04:49 AST 30 (5-40) units/L CBC 11/16/18 Range/Units 04:49 WBC 8.3 (4.5-11.0) K/mm3 RBC 2.60 L (3.65-5.03) M/mm3 Hgb 8.0 L (11.8-15.2) gm/dl Hct 23.4 L (35.5-45.6) % Plt Count 354 (140-440) K/mm3 Lymph # 1.5 (1.2-5.4) K/mm3 Coos # 1.2 H (0.0-0.8) K/mm3 Eos # 0.1 (0.0-0.4) K/mm3 Baso # 0.0 (0.0-0.1) K/mm3 Comprehensive Metabolic Panel 11/16/18 Range/Units 04:49 Sodium 136 L (137-145) mmol/L Potassium 4.5 (3.6-5.0) mmol/L Chloride 94.1 L (98-107) mmol/L Carbon Dioxide 27 (22-30) mmol/L BUN 39 H (9-20) mg/dL Creatinine 7.4 H D (0.8-1.5) mg/dL Glucose 243 H (75-100) mg/dL Calcium 8.3 L (8.4-10.2) mg/dL Direct Bilirubin < 0.2 (0-0.2) mg/dL Indirect Bilirubin 0.0 mg/dL AST 30 (5-40) units/L ALT 48 (7-56) units/L Alkaline Phosphatase 94 (35-129) units/L Total Protein 6.5 (6.3-8.2) g/dL Albumin 2.2 L (3.9-5) g/dL - Imaging and Cardiology EKG: image reviewed Echo: report reviewed (EF 30-35%, mild MR and TR. ) - EKG Sinus rhythms and dysrhythmias: sinus arrest or pause Ventricular dysrhythmias: idioventricular escape rh AV and intraventricular conduction: intraventricular conducti Repolarization changes or abnormalities: Suggestive of hyperkalemia (wide QRS complexes and ST depression evaluation probably all due to severe hyperkalemia. The last EKG does not show any ST elevation but continues to show peaked T waves.) - Allied health notes Allied health notes reviewed: nursing
--- NOTE | 2018-11-16 12:03 | Progress Note ---
Assessment and Plan Assessment and plan: --S/P Cardiopulmonary Arrest-unknown etiology ventilatory support, nebulizers --Anoxic Encephalopathy; neurology following, supportive care Poor prognosis, follow EEG --Acute Hypoxic Respiratory failure; on ventilatory support weaning parameters, wean as tolerated and extubate Possible trach and PEG if no improvement --Accelerated hypertension; controlled today continue current antihypertensives and when necessary medications --DKA-corrected; uncontrolled blood sugars Accu-Chek sliding scale coverage and ADA diet, 70/30 insulin, adjust the dose Dose as needed --Severe metabolic Acidosis; multifactorial closely monitor --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 Plan of care is reviewed with the patient's mother in [facility] Critical care time 33 minutes Disposition : Possible trach and peg, transfer to Hospice /HHS /LTAC History Interval history: Patient remains intubated on vent. On weaning parameters Surg planning trach and PEG. Vital signs stable Hospitalist Physical - Constitutional Vitals: Temp Pulse Resp BP Pulse Ox 99.8 F H 95 H 20 90/63 100 11/16/18 08:00 11/16/18 11:57 11/16/18 07:30 11/16/18 11:57 11/16/18 11:57 General appearance: Present: no acute distress, well-nourished, other (intubated on vent) - EENT Eyes: Present: PERRL - Neck Neck: Present: supple, normal ROM - Respiratory Respiratory effort: normal Respiratory: bilateral: diminished, rhonchi, negative: rales, wheezing - Cardiovascular Rhythm: regular Heart Sounds: Present: S1 & S2 - Extremities Extremities: no ischemia, No edema - Abdominal General gastrointestinal: soft, non-tender, non-distended, normal bowel sounds, hypoactive bowel sounds - Integumentary Integumentary: Present: clear, warm - Psychiatric Psychiatric: other (on vent) - Neurologic Neurologic: other (on vent) Results - Labs CBC & Chem 7: 11/16/18 04:49 11/16/18 04:49 Labs: Laboratory Last Values WBC 8.3 K/mm3 (4.5-11.0) 11/16/18 04:49 RBC 2.60 M/mm3 (3.65-5.03) L 11/16/18 04:49 Hgb 8.0 gm/dl (11.8-15.2) L 11/16/18 04:49 Hct 23.4 % (35.5-45.6) L 11/16/18 04:49 MCV 90 fl (84-94) 11/16/18 04:49 MCH 31 pg (28-32) 11/16/18 04:49 MCHC 34 % (32-34) 11/16/18 04:49 RDW 14.2 % (13.2-15.2) 11/16/18 04:49 Plt Count 354 K/mm3 (140-440) 11/16/18 04:49 Lymph % (Auto) 18.0 % (13.4-35.0) 11/16/18 04:49 [place] % (Auto) 14.1 % (0.0-7.3) H 11/16/18 04:49 Eos % (Auto) 0.7 % (0.0-4.3) 11/16/18 04:49 Baso % (Auto) 0.4 % (0.0-1.8) 11/16/18 04:49 Lymph # 1.5 K/mm3 (1.2-5.4) 11/16/18 04:49 [place] # 1.2 K/mm3 (0.0-0.8) H 11/16/18 04:49 Eos # 0.1 K/mm3 (0.0-0.4) 11/16/18 04:49 Baso # 0.0 K/mm3 (0.0-0.1) 11/16/18 04:49 Add Manual Diff Complete 11/11/18 04:24 Total Counted 100 11/11/18 04:24 Seg Neutrophils % 66.8 % (40.0-70.0) 11/16/18 04:49 Seg Neuts % (Manual) 66.0 % (40.0-70.0) 11/11/18 04:24 0 % 11/11/18 04:24 22.0 % (13.4-35.0) 11/11/18 04:24 Reactive Lymphs % (Man) 0 % 11/11/18 04:24 10.0 % (0.0-7.3) H 11/11/18 04:24 2.0 % (0.0-4.3) 11/11/18 04:24 0 % (0.0-1.8) 11/11/18 04:24 0 % 11/11/18 04:24 0 % 11/11/18 04:24 0 % 11/11/18 04:24 0 % 11/11/18 04:24 Nucleated RBC % Not Reportable 11/11/18 04:24 Seg Neutrophils # 5.5 K/mm3 (1.8-7.7) 11/16/18 04:49 Seg Neutrophils # Man 6.9 K/mm3 (1.8-7.7) 11/11/18 04:24 Band Neutrophils # 0.0 K/mm3 11/11/18 04:24 2.3 K/mm3 (1.2-5.4) 11/11/18 04:24 Abs React Lymphs (Man) 0.0 K/mm3 11/11/18 04:24 1.0 K/mm3 (0.0-0.8) H 11/11/18 04:24 0.2 K/mm3 (0.0-0.4) 11/11/18 04:24 0.0 K/mm3 (0.0-0.1) 11/11/18 04:24 0.0 K/mm3 11/11/18 04:24 0.0 K/mm3 11/11/18 04:24 0.0 K/mm3 11/11/18 04:24 Blast Cells # 0.0 K/mm3 11/11/18 04:24 WBC Morphology Not Reportable 11/11/18 04:24 Hypersegmented Neuts Not Reportable 11/11/18 04:24 Hyposegmented Neuts Not Reportable 11/11/18 04:24 Hypogranular Neuts Not Reportable 11/11/18 04:24 Not Reportable 11/11/18 04:24 Not Reportable 11/11/18 04:24 Not Reportable 11/11/18 04:24 Not Reportable 11/11/18 04:24 Not Reportable 11/11/18 04:24 Not Reportable 11/11/18 04:24 Consistent w auto 11/11/18 04:24 Not Reportable 11/11/18 04:24 Plt Clumps, EDTA Not Reportable 11/11/18 04:24 Not Reportable 11/11/18 04:24 Not Reportable 11/11/18 04:24 Not Reportable 11/11/18 04:24 Plt Morphology Comment Not Reportable 11/11/18 04:24 RBC Morphology Not Reportable 11/11/18 04:24 Dimorphic RBCs Not Reportable 11/11/18 04:24 Not Reportable 11/11/18 04:24 Not Reportable 11/11/18 04:24 Not Reportable 11/11/18 04:24 1+ 11/11/18 04:24 Not Reportable 11/11/18 04:24 Not Reportable 11/11/18 04:24 Not Reportable 11/11/18 04:24 Not Reportable 11/11/18 04:24 Not Reportable 11/11/18 04:24 Not Reportable 11/11/18 04:24 Not Reportable 11/11/18 04:24 Not Reportable 11/11/18 04:24 Not Reportable 11/11/18 04:24 Not Reportable 11/11/18 04:24 Not Reportable 11/11/18 04:24 Not Reportable 11/11/18 04:24 Not Reportable 11/11/18 04:24 Not Reportable 11/11/18 04:24 Not Reportable 11/11/18 04:24 Acanthocytes (Spur) Not Reportable 11/11/18 04:24 Rouleaux Not Reportable 11/11/18 04:24 Not Reportable 11/11/18 04:24 Not Reportable 11/11/18 04:24 Not Reportable 11/11/18 04:24 Not Reportable 11/11/18 04:24 Hem Pathologist Commnt No 11/11/18 04:24 Heparin Anti-Xa, Unfract Negative (Negative) 11/08/18 21:59 POC ABG pH 7.418 (7.35-7.45) 11/11/18 05:31 POC ABG pCO2 48.8 (35-45) H 11/11/18 05:31 POC ABG pO2 109 (80-105) H 11/11/18 05:31 POC ABG HCO3 31.5 (22-26 mml/L) 11/11/18 05:31 POC ABG Total CO2 33 (23-27mmol/L) 11/11/18 05:31 POC ABG O2 Sat 98 11/11/18 05:31 POC ABG Base Excess 7 ((-2) - (+3)mmol/L) 11/11/18 05:31 VBG pH 6.982 (7.320-7.420) L* 11/06/18 13:22 25 % 11/11/18 05:31 Sodium 136 mmol/L (137-145) L 11/16/18 04:49 Potassium 4.5 mmol/L (3.6-5.0) 11/16/18 04:49 Chloride 94.1 mmol/L (98-107) L 11/16/18 04:49 Carbon Dioxide 27 mmol/L (22-30) 11/16/18 04:49 19 mmol/L 11/16/18 04:49 BUN 39 mg/dL (9-20) H 11/16/18 04:49 7.4 mg/dL (0.8-1.5) H D 11/16/18 04:49 Estimated GFR 10 ml/min 11/16/18 04:49 5 % 11/16/18 04:49 Glucose 243 mg/dL (75-100) H 11/16/18 04:49 POC Glucose 278 (70-105) H 11/16/18 08:52 10.1 % (4-6) H 11/15/18 04:50 Lactic Acid 2.70 mmol/L (0.7-2.0) H* 11/08/18 08:00 Calcium 8.3 mg/dL (8.4-10.2) L 11/16/18 04:49 Phosphorus 3.50 mg/dL (2.5-4.5) 11/12/18 04:44 Magnesium 2.00 mg/dL (1.7-2.3) 11/12/18 04:44 < 0.20 mg/dL (0.1-1.2) 11/16/18 04:49 < 0.2 mg/dL (0-0.2) 11/16/18 04:49 0.0 mg/dL 11/16/18 04:49 AST 30 units/L (5-40) 11/16/18 04:49 ALT 48 units/L (7-56) 11/16/18 04:49 94 units/L (35-129) 11/16/18 04:49 58 units/L (55-170) 11/06/18 09:02 0.027 ng/mL (0.00-0.029) 11/06/18 09:02 1.90 mg/dL (0.00-1.30) H 11/06/18 19:30 6.5 g/dL (6.3-8.2) 11/16/18 04:49 2.2 g/dL (3.9-5) L 11/16/18 04:49 0.5 % 11/16/18 04:49 See scanned result 11/08/18 21:59 Straw (Yellow) 11/06/18 10:38 Clear (Clear) 11/06/18 10:38 5.0 (5.0-7.0) 11/06/18 10:38 Ur Specific [place] 1.014 (1.003-1.030) 11/06/18 10:38 100 mg/dl mg/dL (Negative) 11/06/18 10:38 >=500 mg/dL (Negative) 11/06/18 10:38 20 mg/dL (Negative) 11/06/18 10:38 Sm (Negative) 11/06/18 10:38 Neg (Negative) 11/06/18 10:38 Neg (Negative) 11/06/18 10:38 < 2.0 mg/dL (<2.0) 11/06/18 10:38 Ur Leukocyte Esterase Neg (Negative) 11/06/18 10:38 < 1.0 /HPF (0.0-6.0) 11/06/18 10:38 2.0 /HPF (0.0-6.0) 11/06/18 10:38 U Epithel Cells (Auto) < 1.0 /HPF (0-13.0) 11/06/18 10:38 Random Vancomycin 13.2 ug/mL (0-40.0) 11/08/18 04:23 Salicylates < 0.3 mg/dL (2.8-20.0) L 11/06/18 09:02 Presumptive negative 11/06/18 10:38 Presumptive negative 11/06/18 10:38 Acetaminophen < 5.0 ug/mL (10.0-30.0) L 11/06/18 09:02 Ur Barbiturates Screen Presumptive negative 11/06/18 10:38 Ur Phencyclidine Scrn Presumptive negative 11/06/18 10:38 Ur Amphetamines Screen Presumptive negative 11/06/18 10:38 U Benzodiazepines Scrn Presumptive negative 11/06/18 10:38 Presumptive negative 11/06/18 10:38 U Marijuana (THC) Screen Presumptive positive 11/06/18 10:38 Disclamer 11/06/18 10:38 Plasma/Serum Alcohol < 0.01 % (0-0.07) 11/06/18 09:02 Heparin-induced Plt Ab Positive (Negative) H 11/08/18 21:59 UF Heparin High Dose 0 % Release 11/08/18 21:59 DEBORA UFH Low Dose 0.1 0 % Release 11/08/18 21:59 DEBORA UFH Low Dose 0.5 0 % Release 11/08/18 21:59 Hepatitis A IgM Ab Non-reactive (NonReactive) 11/07/18 13:20 Hep Bs Antigen Non-reactive (Negative) 11/07/18 13:20 Hep B Core IgM Ab Non-reactive (NonReactive) 11/07/18 13:20 Non-reactive (NonReactive) 11/07/18 13:20 Blood Type A POSITIVE 11/06/18 14:15 Antibody Screen Not Reportable 11/06/18 14:15 JANIS Antibody Screen Negative 11/06/18 14:15 Active Medications - Current Medications Current Medications: Generic Name Dose Route Start Last Admin Trade Name Freq PRN Reason Stop Dose Admin Acetaminophen 650 mg 11/06/18 22:22 11/11/18 07:33 Tylenol FEEDTUBE 650 mg Q6H PRN Administration Fever >101 Lipase/Protease/Amylase 1 each 11/08/18 18:38 Pancreclara Whatley 10,500 Unit FEEDTUBE PRN PRN For Clogged Feeding Tube Apixaban 2.5 mg 11/13/18 10:00 11/16/18 09:05 Eliquis FEEDTUBE 2.5 mg BID MARIAJOSE Administration Chlorpromazine HCl 10 mg 11/07/18 08:07 11/10/18 05:36 Thorazine PO 10 mg Q6H PRN Administration Hiccups Clonazepam 0.5 mg 11/12/18 16:49 11/13/18 23:10 Klonopin PO 0.5 mg Q12H PRN Administration myoclonic jerks Dextrose 50 ml 11/07/18 16:46 11/10/18 23:43 D50w (25gm) Syringe IV 50 ml PRN PRN Administration Hypoglycemia Fentanyl 50 mcg 11/06/18 08:37 Sublimaze IV Q10MIN PRN ANALGESIA Hydralazine HCl 10 mg 11/08/18 00:56 11/14/18 08:34 Apresoline IV 10 mg Q4H PRN Administration Hypertension Hydralazine HCl 50 mg 11/14/18 09:16 11/16/18 06:46 Apresoline PO 50 mg Q8HR MARIAJOSE Administration Hydrophilic Ointment 1 applic 11/06/18 08:26 11/10/18 19:52 Vaseline Lip Therapy TP 1 applic Q2HR PRN Administration Dry Lips Fentanyl Citrate 2,000 mcg in 100 mls @ 4.309 mls/hr 11/06/18 10:00 11/15/18 17:00 Fentanyl Drip Premix IV 1 mcg/kg/hr TITR MARIAJOSE 4.309 mls/hr Titration Protocol 1 MCG/KG/HR Levetiracetam 750 mg/ Dextrose 107.5 mls @ 400 mls/hr 11/12/18 22:00 11/16/18 09:06 IV 400 mls/hr Q12HR MARIAJOSE Administration Sodium Chloride 100 mls @ 999 mls/hr 11/14/18 11:33 Nacl 0.9% IV MARY PRN Hypotension Insulin Human Isoph/Insulin Regular 36 unit 11/16/18 12:02 Humulin 70/30 SUB-Q BIDDIAB MARIAJOSE Insulin Human Regular 0 units 11/07/18 18:00 11/16/18 06:47 Humulin R SUB-Q 8 units Q6HR MARIAJOSE Administration Protocol Lansoprazole 30 mg 11/09/18 10:00 11/16/18 09:05 Prevacid Solutab FEEDTUBE 30 mg BID MARIAJOSE Administration Lorazepam 2 mg 11/12/18 08:31 11/15/18 14:25 Ativan IV 2 mg Q4H PRN Administration Agitation Metoprolol Tartrate 50 mg 11/14/18 10:00 11/16/18 09:19 Lopressor PO Not Given Q6H MARIAJOSE Modafinil 100 mg 11/11/18 10:00 11/16/18 09:05 Provigil PO 100 mg QAM MARIAJOSE Administration Multi-Ingred Cream/Lotion/Oil/Oint 1 applic 11/06/18 08:26 Artificial Tears Ophth Oint OU Q4HR PRN Dry Eye(s) Simple Syrup 15 ml 11/08/18 18:38 Simple Syrup FEEDTUBE PRN PRN Hypoglycemia Simple Syrup 30 ml 11/08/18 18:38 Simple Syrup FEEDTUBE PRN PRN Hypoglycemia Sodium Bicarbonate 325 mg 11/08/18 18:38 Sodium Bicarbonate FEEDTUBE PRN PRN For Clogged Feeding Tube Sodium Chloride 10 ml 11/06/18 22:00 11/16/18 09:06 Sodium Chloride Flush Syringe 10 Ml IV 10 ml BID MARIAJOSE Administration Sodium Chloride 10 ml 11/06/18 12:42 11/13/18 10:30 Sodium Chloride Flush Syringe 10 Ml IV 10 ml PRN PRN Administration LINE FLUSH Tamsulosin HCl 0.4 mg 11/10/18 13:00 11/16/18 09:05 Flomax PO 0.4 mg QDAY MARIAJOSE Administration Nutrition/Malnutrition Assess - Dietary Evaluation Nutrition/Malnutrition Findings: Nutrition Notes Start: 11/07/18 14 :40 Freq: Status: Active Protocol: Document 11/11/18 14:40 RM (Rec: 11/11/18 14:53 RM [id number]) Nutrition Notes Initial or Follow up Reassessment Current Diagnosis CKD (stage V CKD),Diabetes Other Pertinent Diagnosis on HD, PAD, Anoxic brain injury, Cardiopulmonary arrest , AMS Current Diet Glucerna 1.2 at 75 ml/hr Labs/Tests Na 142 Pertinent Medications Reviewed Height 6 ft 2 in Weight 108.8 kg [place] Body Weight (kg) 86.36 BMI 30.8 Subjective/Other Information Observed Gucerna 1.2 infusing at goal rate. Percent of energy/protein needs met: 99%/100% Burn Absent Trauma Absent #1 Nutrition Diagnosis Inadequate oral intake Diagnosis Progress(for reassessment Continues documentation) Is patient on ventilator? Yes Is Patient Ambulatory and/or Out of Bed No REE-([place]-[facility] Jeor-confined to bed) 2477.928 Kcal/Kg value to use for calculation 20 Approximate Energy Requirements Using 2176 kcal/Kg Calculation Used for Recommendations Kcal/kg Additional Notes Protein Needs: 103-172g (1.2- 2g/kg) Fluid Needs: 1 ml/kcal Nutrition Intervention Nutrition Support: Glucerna 1.2 at 75ml/hr 100ml q4h Kcal 2,160 Protein (gm) 108 Fluid (mL) 1,449 Goal #1 Continue to meet at least 80% of kcal and protein needs Anticipated Discharge Needs: Unable to determine at this time Follow-Up By: 11/20/18 Additional Comments Follow for TF tolerance
--- NOTE | 2018-11-16 13:58 | Consultation ---
History of Present Illness Consult date: 11/16/18 Reason for consult: other (trach/PEG eval) Requesting physician: KENNETH HUNG Chief complaint: respiratory failure - History of present illness History of present illness: 42yo M with ESRD on HD, HTN, DM, PAD, Nicotine Dependence who was found down at home. Patient is brought to the emergency department and had a cardiac arrest. Patient was resuscitated and admitted to ICU. He was assessed to have an anoxic brain injury. He has not shown any signs of progress at this point. Family wishes to continue full care. We are being asked to see him for consideration of tracheostomy and PEG tube placement. Patient unable to participate in interview. History obtained from mother and chart. Past History Past Medical History: ESRD (patient has AV fistula for hemodialysis since August of this year. It was felt he was not getting it to lately. Patient also has history of amputation of toes for PAD. No definite history of coronary artery disease), hypertension Past Surgical History: Other (Right Foot Surgery, AV Fistula) Social history: single, smoking. denies: alcohol abuse, prescription drug abuse Family history: diabetes, hypertension Medications and Allergies Allergies Allergy/AdvReac Type Severity Reaction Status Date / Time No Known Allergies Allergy Verified 03/17/18 11:54 Home Medications Medication Instructions Recorded Confirmed Last Taken Type Esomeprazole Magnesium [NexIUM] 20 mg PO QDAY #30 suspdr.pkt 03/17/18 11/07/18 Unknown Rx HYDROcodone/APAP 5-325 [Talmo 1 each PO Q6HR PRN #15 tablet 03/17/18 11/07/18 Unknown Rx 5/325] Metoclopramide [Reglan] 10 mg PO TID #21 tab 03/17/18 11/07/18 Unknown Rx Ondansetron [Zofran Odt] 4 mg PO Q4HR PRN #20 tab.rapdis 03/17/18 11/07/18 Unknown Rx Active Meds: Active Medications Acetaminophen (Tylenol) 650 mg FEEDTUBE Q6H PRN PRN Reason: Fever >101 Last Admin: 11/11/18 07:33 Dose: 650 mg Documented by: Lipase/Protease/Amylase (Macho Whatley 10,500 Unit) 1 each FEEDTUBE PRN PRN PRN Reason: For Clogged Feeding Tube Apixaban (Eliquis) 2.5 mg FEEDTUBE BID MARIAJOSE Last Admin: 11/16/18 09:05 Dose: 2.5 mg Documented by: Chlorpromazine HCl (Thorazine) 10 mg PO Q6H PRN PRN Reason: Hiccups Last Admin: 11/10/18 05:36 Dose: 10 mg Documented by: Clonazepam (Klonopin) 0.5 mg PO Q12H PRN PRN Reason: myoclonic jerks Last Admin: 11/13/18 23:10 Dose: 0.5 mg Documented by: Dextrose (D50w (25gm) Syringe) 50 ml IV PRN PRN PRN Reason: Hypoglycemia Last Admin: 11/10/18 23:43 Dose: 50 ml Documented by: Fentanyl (Sublimaze) 50 mcg IV Q10MIN PRN PRN Reason: ANALGESIA Hydralazine HCl (Apresoline) 10 mg IV Q4H PRN PRN Reason: Hypertension Last Admin: 11/14/18 08:34 Dose: 10 mg Documented by: Hydralazine HCl (Apresoline) 50 mg PO Q8HR MARIAJOSE Last Admin: 11/16/18 06:46 Dose: 50 mg Documented by: Hydrophilic Ointment (Vaseline Lip Therapy) 1 applic TP Q2HR PRN PRN Reason: Dry Lips Last Admin: 11/10/18 19:52 Dose: 1 applic Documented by: Fentanyl Citrate (Fentanyl Drip Premix) 2,000 mcg in 100 mls @ 4.309 mls/hr IV TITR MARIAJOSE; Protocol Last Titration: 11/15/18 17:00 Dose: 1 mcg/kg/hr, 4.309 mls/hr Documented by: Levetiracetam 750 mg/ Dextrose 107.5 mls @ 400 mls/hr IV Q12HR MARIAJOSE Last Admin: 11/16/18 09:06 Dose: 400 mls/hr Documented by: Sodium Chloride (Nacl 0.9%) 100 mls @ 999 mls/hr IV MARY PRN PRN Reason: Hypotension Insulin Human Isoph/Insulin Regular (Humulin 70/30) 36 unit SUB-Q BID MARIAJOSE Insulin Human Regular (Humulin R) 0 units SUB-Q Q6HR MARIAJOSE; Protocol Last Admin: 11/16/18 06:47 Dose: 8 units Documented by: Lansoprazole (Prevacid Solutab) 30 mg FEEDTUBE BID MARIAJOSE Last Admin: 11/16/18 09:05 Dose: 30 mg Documented by: Lorazepam (Ativan) 2 mg IV Q4H PRN PRN Reason: Agitation Last Admin: 11/15/18 14:25 Dose: 2 mg Documented by: Metoprolol Tartrate (Lopressor) 50 mg PO Q6H [facility] Last Admin: 11/16/18 09:19 Dose: Not Given Documented by: Modafinil (Provigil) 100 mg PO QAM [facility] Last Admin: 11/16/18 09:05 Dose: 100 mg Documented by: Multi-Ingred Cream/Lotion/Oil/Oint (Artificial Tears Ophth Oint) 1 applic OU Q4HR PRN PRN Reason: Dry Eye(s) Simple Syrup (Simple Syrup) 15 ml FEEDTUBE PRN PRN PRN Reason: Hypoglycemia Simple Syrup (Simple Syrup) 30 ml FEEDTUBE PRN PRN PRN Reason: Hypoglycemia Sodium Bicarbonate (Sodium Bicarbonate) 325 mg FEEDTUBE PRN PRN PRN Reason: For Clogged Feeding Tube Sodium Chloride (Sodium Chloride Flush Syringe 10 Ml) 10 ml IV BID [facility] Last Admin: 11/16/18 09:06 Dose: 10 ml Documented by: Sodium Chloride (Sodium Chloride Flush Syringe 10 Ml) 10 ml IV PRN PRN PRN Reason: LINE FLUSH Last Admin: 11/13/18 10:30 Dose: 10 ml Documented by: Tamsulosin HCl (Flomax) 0.4 mg PO QDAY [facility] Last Admin: 11/16/18 09:05 Dose: 0.4 mg Documented by: Review of Systems ROS unobtainable: due to endotracheal tube, due to mental status Exam Vital Signs BP Pulse Ox 95/26 98 11/06/18 08:02 11/06/18 08:02 - General physical appearance Positive: no distress, no pain, other (minimally responsive) - ENT Positive: other (ETT in place) - Neck Positive: no masses, no bruits, trachea midline, no venous distension, other (no arterial pulsation appreciated. Trachea easily palpable.) - Respiratory Positive: normal expansion, normal respiratory effort - Cardiovascular Rhythm: regular - Abdomen Abdomen: Present: soft. Absent: tender, distended, guarding, rigid, wound, surgical scars - Integumentary no rash, no growths, no abnormal pigmentation Results - Labs 11/16/18 04:49 11/16/18 04:49 Abnormal lab results 11/15/18 11/16/18 11/16/18 Range/Units 18:08 00:39 04:49 RBC 2.60 L (3.65-5.03) M/mm3 Hgb 8.0 L (11.8-15.2) gm/dl Hct 23.4 L (35.5-45.6) % [place] % (Auto) 14.1 H (0.0-7.3) % [place] # 1.2 H (0.0-0.8) K/mm3 Sodium (137-145) mmol/L Chloride (98-107) mmol/L BUN (9-20) mg/dL Creatinine (0.8-1.5) mg/dL Glucose (75-100) mg/dL POC Glucose 114 H 147 H (70-105) Calcium (8.4-10.2) mg/dL Albumin (3.9-5) g/dL 11/16/18 11/16/18 11/16/18 Range/Units 04:49 06:09 08:52 RBC (3.65-5.03) M/mm3 Hgb (11.8-15.2) gm/dl Hct (35.5-45.6) % [place] % (Auto) (0.0-7.3) % [place] # (0.0-0.8) K/mm3 Sodium 136 L (137-145) mmol/L Chloride 94.1 L (98-107) mmol/L BUN 39 H (9-20) mg/dL Creatinine 7.4 H D (0.8-1.5) mg/dL Glucose 243 H (75-100) mg/dL POC Glucose 308 H 278 H (70-105) Calcium 8.3 L (8.4-10.2) mg/dL Albumin 2.2 L (3.9-5) g/dL 11/16/18 Range/Units 11:53 RBC (3.65-5.03) M/mm3 Hgb (11.8-15.2) gm/dl Hct (35.5-45.6) % [place] % (Auto) (0.0-7.3) % [place] # (0.0-0.8) K/mm3 Sodium (137-145) mmol/L Chloride (98-107) mmol/L BUN (9-20) mg/dL Creatinine (0.8-1.5) mg/dL Glucose (75-100) mg/dL POC Glucose 178 H (70-105) Calcium (8.4-10.2) mg/dL Albumin (3.9-5) g/dL Diabetes panel 11/16/18 Range/Units 04:49 Sodium 136 L (137-145) mmol/L Potassium 4.5 (3.6-5.0) mmol/L Chloride 94.1 L (98-107) mmol/L Carbon Dioxide 27 (22-30) mmol/L BUN 39 H (9-20) mg/dL Creatinine 7.4 H D (0.8-1.5) mg/dL Glucose 243 H (75-100) mg/dL Calcium 8.3 L (8.4-10.2) mg/dL AST 30 (5-40) units/L ALT 48 (7-56) units/L Alkaline Phosphatase 94 (35-129) units/L Total Protein 6.5 (6.3-8.2) g/dL Albumin 2.2 L (3.9-5) g/dL Calcium panel 11/16/18 Range/Units 04:49 Calcium 8.3 L (8.4-10.2) mg/dL Albumin 2.2 L (3.9-5) g/dL Pituitary panel 11/16/18 Range/Units 04:49 Sodium 136 L (137-145) mmol/L Potassium 4.5 (3.6-5.0) mmol/L Chloride 94.1 L (98-107) mmol/L Carbon Dioxide 27 (22-30) mmol/L BUN 39 H (9-20) mg/dL Creatinine 7.4 H D (0.8-1.5) mg/dL Glucose 243 H (75-100) mg/dL Calcium 8.3 L (8.4-10.2) mg/dL Adrenal panel 11/16/18 Range/Units 04:49 Sodium 136 L (137-145) mmol/L Potassium 4.5 (3.6-5.0) mmol/L Chloride 94.1 L (98-107) mmol/L Carbon Dioxide 27 (22-30) mmol/L BUN 39 H (9-20) mg/dL Creatinine 7.4 H D (0.8-1.5) mg/dL Glucose 243 H (75-100) mg/dL Calcium 8.3 L (8.4-10.2) mg/dL Total Bilirubin < 0.20 (0.1-1.2) mg/dL AST 30 (5-40) units/L ALT 48 (7-56) units/L Alkaline Phosphatase 94 (35-129) units/L Total Protein 6.5 (6.3-8.2) g/dL Albumin 2.2 L (3.9-5) g/dL - Imaging Chest x-ray: report reviewed, image reviewed Assessment and Plan - Patient Problems (1) Respiratory failure Current Visit: Yes Status: Acute Qualifiers: Chronicity: acute Respiratory failure complication: hypoxia Qualified Code(s): J96.01 - Acute respiratory failure with hypoxia Plan to address problem: Pt stable. Patient appears to be an acceptable candidate for bedside percutaneous tracheostomy and PEG tube placement. Procedure, risks, benefits were discussed with mother. Verbal consent was obtained. I will get written consent at a later date. I'll begin making arrangements for the procedures. Please call with any questions Time=40min
[2018-11-16] MEDS: fentaNYL DRIP Premix 2,000 MCG/100 ML BAG IV SCH (16:10)
[2018-11-17] MEDS: HumuLIN R SUB-Q SCH ×4 (00:57→18:03)
[2018-11-17 04:58] LABS: Basophils % (Auto) 0.2 % (0.0-1.8); Eosinophils # (Auto) 0.1 K/mm3 (0.0-0.4); Eosinophils % (Auto) 0.7 % (0.0-4.3); Hematocrit 23.5 % (35.5-45.6); Hemoglobin 7.9 gm/dl (11.8-15.2); Lymphocytes # (Auto) 1.4 K/mm3 (1.2-5.4); Mean Corpuscular HGB Conc 34 % (32-34); Mean Corpuscular Volume 91 fl (84-94); Monocytes # (Auto) 1.1 K/mm3 (0.0-0.8); Monocytes % (Auto) 10.3 % (0.0-7.3); Platelet Count 417 K/mm3 (140-440); Red Blood Count 2.58 M/mm3 (3.65-5.03); Red Cell Distribution Width 14.1 % (13.2-15.2)
[2018-11-17 05:12] LABS: Calcium 8.7 mg/dL (8.4-10.2)
[2018-11-17] MEDS: LOPRESSOR PO SCH ×3 (05:33→17:00)
[2018-11-17] MEDS: APRESOLINE PO SCH ×2 (05:33→13:03)
--- NOTE | 2018-11-17 07:49 | Progress Note ---
Assessment and Plan Acute hypoxemic respiratory failure, on mechanical ventilator support. Diabetic ketoacidosis. Severe metabolic acidosis. Severe sepsis with shock. Acute encephalopathy that appears to be toxic metabolic. End-stage renal disease, on dialysis. Hyperkalemia at presentation. Anemia that is macrocytic. Elevated serum transaminases, likely representing shock liver. Hypernatremia, improved Lactic acidosis. - Discontinue intra-arterial line -SBT daily, did not tolerate it this morning -continue insulin therapy forglycemic control. -goal blood glucose of 140-180 mg/dL - sedation target for RASS 0 to -1, on low dose fentanyl as a continuous infusion, will discontinue it once he has his tracheosotmy placed. Plan to use intermittent dosing - continue to wean supplemental oxygen to keep O2 sats > 90% - continue bronchodilators with pulmonary hygiene per RT - Lung protective strategies - VAP bundle addressed - continue HD/UF as tolerated for toxin and volume clearance - continue to avoid nephrotoxic agents, adjust all medications for CrCL - continue enteral nutrition as tolerated -Aspiration precautions, keep HOB >40 - Maintenance of sleep -wake cycle - Mobility protocol for pressure ulcer prevention - continue stress ulcer prophylaxis - Influenza and pneumonia vaccination per protocol PROGNOSIS: GUARDED CONDITION: CRITICAL CODE STATUS: FULL CODE The high probability of a clinically significant, sudden or life-threatening deterioration of the [respiratory, endocrine] system(s) required my full and direct attention, intervention and personal management. The aggregate critical care time was [31] minutes without overlap. Time includes spent on; [x] Data Review and interpretation [x] Patient assessment and monitoring of vital signs [x] Documentation [x] Medication orders and management Discussed care extensively in ICU-IDT rounds Subjective Date of service: 11/17/18 Principal diagnosis: Ac hypoxemic resp failure; DKA; Severe sepsis with shock; ESRD on dialysis Interval history: Patient is seen today for: Acute hypoxemic respiratory failure on MVS; DKA; Severe metabolic acidosis; Severe sepsis with shock; Acute encephalopathy that appears to be toxic metabolic; ESRD on dialysis; DM II; Peripheral vascular disease. Seen and examined at bedside; 24hour events reviewed; nursing and respiratory care staff consulted; no adverse overnight events reported to me; remains on MVS; AMS is persistent; still with encephalopathy, appears to posture with minimal stimulation; Objective Vital Signs - 12hr 11/16/18 11/16/18 11/16/18 20:01 20:13 20:15 Temperature Pulse Rate 97 H 96 H 94 H Pulse Rate [ 106 H From Monitor] Respiratory 28 H 20 Rate Respiratory 12 Rate [ Generalized] Blood Pressure 162/80 159/76 140/80 O2 Sat by Pulse 100 100 100 Oximetry 11/16/18 11/16/18 11/16/18 20:30 20:45 21:00 Temperature Pulse Rate 98 H 108 H 97 H Pulse Rate [ From Monitor] Respiratory 21 16 20 Rate Respiratory Rate [ Generalized] Blood Pressure 158/84 151/79 131/72 O2 Sat by Pulse 100 100 99 Oximetry 11/16/18 11/16/18 11/16/18 21:15 21:25 21:26 Temperature Pulse Rate 95 H 95 H 95 H Pulse Rate [ From Monitor] Respiratory 20 Rate Respiratory Rate [ Generalized] Blood Pressure 123/71 109/90 109/90 O2 Sat by Pulse 99 Oximetry 11/16/18 11/16/18 11/16/18 21:30 21:35 21:45 Temperature Pulse Rate 94 H 96 H 92 H Pulse Rate [ 95 H From Monitor] Respiratory 20 20 20 Rate Respiratory Rate [ Generalized] Blood Pressure 125/74 135/79 O2 Sat by Pulse 99 100 100 Oximetry 11/16/18 11/16/18 11/16/18 22:00 22:15 22:30 Temperature Pulse Rate 96 H 96 H 94 H Pulse Rate [ From Monitor] Respiratory 20 22 20 Rate Respiratory Rate [ Generalized] Blood Pressure 156/82 131/84 152/83 O2 Sat by Pulse 99 100 100 Oximetry 11/16/18 11/16/18 11/16/18 22:45 23:00 23:15 Temperature Pulse Rate 96 H 97 H Pulse Rate [ From Monitor] Respiratory 20 20 26 H Rate Respiratory Rate [ Generalized] Blood Pressure 152/88 153/76 152/83 O2 Sat by Pulse 100 100 99 Oximetry 11/16/18 11/16/18 11/16/18 23:30 23:35 23:36 Temperature Pulse Rate 96 H 96 H 96 H Pulse Rate [ 95 H From Monitor] Respiratory 20 20 20 Rate Respiratory Rate [ Generalized] Blood Pressure 146/78 146/78 O2 Sat by Pulse 100 100 100 Oximetry 11/16/18 11/16/18 11/16/18 23:43 23:45 23:46 Temperature 99.6 F Pulse Rate 94 H 94 H Pulse Rate [ From Monitor] Respiratory 20 20 Rate Respiratory Rate [ Generalized] Blood Pressure 135/68 146/78 O2 Sat by Pulse 100 100 Oximetry 11/17/18 11/17/18 11/17/18 00:00 00:01 00:15 Temperature Pulse Rate 95 H 94 H 93 H Pulse Rate [ From Monitor] Respiratory 20 20 20 Rate Respiratory Rate [ Generalized] Blood Pressure 150/85 150/85 131/70 O2 Sat by Pulse 100 100 100 Oximetry 11/17/18 11/17/18 11/17/18 00:30 00:45 01:00 Temperature Pulse Rate 94 H 94 H 95 H Pulse Rate [ From Monitor] Respiratory 20 20 20 Rate Respiratory Rate [ Generalized] Blood Pressure 142/78 139/75 140/73 O2 Sat by Pulse 100 100 100 Oximetry 11/17/18 11/17/18 11/17/18 01:15 01:30 01:45 Temperature Pulse Rate 95 H 106 H 98 H Pulse Rate [ From Monitor] Respiratory 20 21 20 Rate Respiratory Rate [ Generalized] Blood Pressure 135/70 135/70 125/74 O2 Sat by Pulse 100 100 100 Oximetry 11/17/18 11/17/18 11/17/18 02:00 02:15 02:31 Temperature Pulse Rate 102 H 97 H 100 H Pulse Rate [ 95 H From Monitor] Respiratory 21 20 20 Rate Respiratory 12 Rate [ Generalized] Blood Pressure 142/78 134/76 127/76 O2 Sat by Pulse 100 100 100 Oximetry 11/17/18 11/17/18 11/17/18 02:45 03:00 03:15 Temperature Pulse Rate 97 H 98 H 95 H Pulse Rate [ From Monitor] Respiratory 20 21 20 Rate Respiratory Rate [ Generalized] Blood Pressure 141/72 146/78 142/77 O2 Sat by Pulse 100 100 100 Oximetry 11/17/18 11/17/18 11/17/18 03:30 03:42 03:45 Temperature 98.3 F Pulse Rate 94 H 100 H Pulse Rate [ From Monitor] Respiratory 20 7 L Rate Respiratory Rate [ Generalized] Blood Pressure 143/74 140/74 O2 Sat by Pulse 100 99 Oximetry 11/17/18 11/17/18 11/17/18 04:00 04:15 04:30 Temperature Pulse Rate 103 H 102 H 98 H Pulse Rate [ 95 H From Monitor] Respiratory 20 16 20 Rate Respiratory Rate [ Generalized] Blood Pressure 140/56 148/79 148/73 O2 Sat by Pulse 100 100 100 Oximetry 11/17/18 11/17/18 11/17/18 04:45 05:00 05:15 Temperature Pulse Rate 97 H 97 H 102 H Pulse Rate [ From Monitor] Respiratory 20 20 20 Rate Respiratory Rate [ Generalized] Blood Pressure 151/77 135/70 140/74 O2 Sat by Pulse 100 100 100 Oximetry 11/17/18 11/17/18 11/17/18 05:30 05:33 05:40 Temperature Pulse Rate 101 H 103 H 102 H Pulse Rate [ 102 H From Monitor] Respiratory 20 20 Rate Respiratory Rate [ Generalized] Blood Pressure 138/71 133/53 O2 Sat by Pulse 100 100 Oximetry Constitutional: appears uncomfortable, other (middle aged AAM, normocephalic and atraumatic on MVS) Eyes: non-icteric ENT: oropharynx moist, other (ETT 25 cm FITO) Neck: supple, no lymphadenopathy, no JVD Effort: normal Ascultation: Bilateral: clear, diminished breath sounds, rhonchi Percussion: Bilateral: not dull Cardiovascular: regular rate and rhythm Gastrointestinal: normoactive bowel sounds, soft, non-tender, non-distended Integumentary: rash Extremities: no cyanosis, pulses normal, no ischemia or petechiae, edema Neurologic: pupils equal and round (minimally reactive), unable to assess, other (intermittent myoclonic type jerks) Psychiatric: other (unable to assess re: AMS) CBC and BMP: 11/18/18 04:24 11/19/18 04:24 ABG, PT/INR, D-dimer: ABG POC ABG pH 7.481 (7.35-7.45) H 11/17/18 05:12 POC ABG pCO2 44.9 (35-45) 11/17/18 05:12 POC ABG pO2 95 (80-105) 11/17/18 05:12 POC ABG HCO3 33.5 (22-26 mml/L) 11/17/18 05:12 POC ABG Total CO2 35 (23-27mmol/L) 11/17/18 05:12 POC ABG O2 Sat 98 11/17/18 05:12 Abnormal lab findings: Abnormal Labs 11/06/18 11/06/18 11/06/18 08:22 09:02 09:02 WBC 20.1 H RBC 3.40 L Hgb 10.5 L Hct MCV 119 H MCHC 26 L RDW 15.7 H Plt Count Lymph % (Auto) [place] % (Auto) Lymph # [place] # Seg Neutrophils % 80.1 H Seg Neuts % (Manual) 76.0 H Lymphocytes % (Manual) 4.0 L Monocytes % (Manual) Nucleated RBC % 1.0 H Seg Neutrophils # 16.1 H Seg Neutrophils # Man 15.3 H Lymphocytes # (Manual) 0.8 L Monocytes # (Manual) POC ABG pH POC ABG pCO2 POC ABG pO2 VBG pH Sodium 129 L Potassium 7.7 H* Chloride 79.7 L Carbon Dioxide 4 L* BUN 93 H Creatinine 7.4 H Glucose 1469 H* POC Glucose > 500 H Hemoglobin A1c Lactic Acid Calcium Phosphorus Magnesium Direct Bilirubin AST 2679 H ALT 1175 H C-Reactive Protein Total Protein 6.1 L Albumin 2.9 L Salicylates Acetaminophen Heparin-induced Plt Ab 11/06/18 11/06/18 11/06/18 09:02 09:02 09:02 WBC RBC Hgb Hct MCV MCHC RDW Plt Count Lymph % (Auto) [place] % (Auto) Lymph # [place] # Seg Neutrophils % Seg Neuts % (Manual) Lymphocytes % (Manual) Monocytes % (Manual) Nucleated RBC % Seg Neutrophils # Seg Neutrophils # Man Lymphocytes # (Manual) Monocytes # (Manual) POC ABG pH POC ABG pCO2 POC ABG pO2 VBG pH Sodium Potassium Chloride Carbon Dioxide BUN Creatinine Glucose POC Glucose Hemoglobin A1c Lactic Acid 9.40 H* Calcium Phosphorus Magnesium Direct Bilirubin AST ALT C-Reactive Protein Total Protein Albumin Salicylates < 0.3 L Acetaminophen < 5.0 L Heparin-induced Plt Ab 11/06/18 11/06/18 11/06/18 09:03 10:19 10:19 WBC RBC Hgb Hct MCV MCHC RDW Plt Count Lymph % (Auto) [place] % (Auto) Lymph # [place] # Seg Neutrophils % Seg Neuts % (Manual) Lymphocytes % (Manual) Monocytes % (Manual) Nucleated RBC % Seg Neutrophils # Seg Neutrophils # Man Lymphocytes # (Manual) Monocytes # (Manual) POC ABG pH 6.841 L POC ABG pCO2 POC ABG pO2 VBG pH Sodium 131 L Potassium 8.9 H* Chloride 85.3 L Carbon Dioxide 6 L* BUN 90 H Creatinine 7.1 H Glucose 1353 H* POC Glucose Hemoglobin A1c Lactic Acid Calcium 7.8 L Phosphorus 14.50 H Magnesium 2.70 H Direct Bilirubin AST ALT C-Reactive Protein Total Protein Albumin Salicylates Acetaminophen Heparin-induced Plt Ab 11/06/18 11/06/18 11/06/18 12:07 13:22 13:22 WBC RBC Hgb Hct MCV MCHC RDW Plt Count Lymph % (Auto) [place] % (Auto) Lymph # [place] # Seg Neutrophils % Seg Neuts % (Manual) Lymphocytes % (Manual) Monocytes % (Manual) Nucleated RBC % Seg Neutrophils # Seg Neutrophils # Man Lymphocytes # (Manual) Monocytes # (Manual) POC ABG pH POC ABG pCO2 POC ABG pO2 VBG pH 6.982 L* Sodium 135 L Potassium 7.0 H* D Chloride 88.4 L Carbon Dioxide 5 L* BUN 89 H Creatinine 7.2 H Glucose 1326 H* POC Glucose Hemoglobin A1c Lactic Acid 8.50 H* Calcium Phosphorus Magnesium Direct Bilirubin AST ALT C-Reactive Protein Total Protein Albumin Salicylates Acetaminophen Heparin-induced Plt Ab 11/06/18 11/06/18 11/06/18 14:15 14:15 15:21 WBC RBC Hgb Hct MCV MCHC RDW Plt Count Lymph % (Auto) [place] % (Auto) Lymph # [place] # Seg Neutrophils % Seg Neuts % (Manual) Lymphocytes % (Manual) Monocytes % (Manual) Nucleated RBC % Seg Neutrophils # Seg Neutrophils # Man Lymphocytes # (Manual) Monocytes # (Manual) POC ABG pH POC ABG pCO2 POC ABG pO2 VBG pH Sodium Potassium 6.6 H* 6.0 H Chloride 95.3 L 93.3 L Carbon Dioxide 4 L* 6 L* BUN 83 H 91 H Creatinine 6.9 H 7.3 H Glucose 1205 H* 1174 H* POC Glucose Hemoglobin A1c Lactic Acid Calcium 8.2 L Phosphorus 13.00 H Magnesium 2.60 H Direct Bilirubin AST ALT C-Reactive Protein Total Protein Albumin Salicylates Acetaminophen Heparin-induced Plt Ab 11/06/18 11/06/18 11/06/18 15:21 16:14 16:33 WBC RBC Hgb Hct MCV MCHC RDW Plt Count Lymph % (Auto) [place] % (Auto) Lymph # [place] # Seg Neutrophils % Seg Neuts % (Manual) Lymphocytes % (Manual) Monocytes % (Manual) Nucleated RBC % Seg Neutrophils # Seg Neutrophils # Man Lymphocytes # (Manual) Monocytes # (Manual) POC ABG pH 7.004 L POC ABG pCO2 33.0 L POC ABG pO2 178 H VBG pH Sodium Potassium Chloride Carbon Dioxide BUN Creatinine Glucose POC Glucose > 500 H Hemoglobin A1c Lactic Acid 7.60 H* Calcium Phosphorus Magnesium Direct Bilirubin AST ALT C-Reactive Protein Total Protein Albumin Salicylates Acetaminophen Heparin-induced Plt Ab 11/06/18 11/06/18 11/06/18 17:34 19:30 19:30 WBC RBC Hgb Hct MCV MCHC RDW Plt Count Lymph % (Auto) [place] % (Auto) Lymph # [place] # Seg Neutrophils % Seg Neuts % (Manual) Lymphocytes % (Manual) Monocytes % (Manual) Nucleated RBC % Seg Neutrophils # Seg Neutrophils # Man Lymphocytes # (Manual) Monocytes # (Manual) POC ABG pH POC ABG pCO2 POC ABG pO2 VBG pH Sodium Potassium 5.5 H Chloride 97.4 L 97.7 L Carbon Dioxide 10 L 11 L BUN 88 H 87 H Creatinine 7.5 H 7.6 H Glucose 1054 H* 954 H* POC Glucose Hemoglobin A1c Lactic Acid Calcium 7.7 L 7.4 L Phosphorus Magnesium Direct Bilirubin AST ALT C-Reactive Protein 1.90 H Total Protein Albumin Salicylates Acetaminophen Heparin-induced Plt Ab 11/06/18 11/06/18 11/06/18 20:31 20:40 20:40 WBC RBC Hgb Hct MCV MCHC RDW Plt Count Lymph % (Auto) [place] % (Auto) Lymph # [place] # Seg Neutrophils % Seg Neuts % (Manual) Lymphocytes % (Manual) Monocytes % (Manual) Nucleated RBC % Seg Neutrophils # Seg Neutrophils # Man Lymphocytes # (Manual) Monocytes # (Manual) POC ABG pH 7.245 L POC ABG pCO2 POC ABG pO2 132 H VBG pH Sodium Potassium Chloride Carbon Dioxide BUN Creatinine Glucose 907 H* POC Glucose Hemoglobin A1c Lactic Acid 4.40 H* Calcium Phosphorus Magnesium Direct Bilirubin AST ALT C-Reactive Protein Total Protein Albumin Salicylates Acetaminophen Heparin-induced Plt Ab 11/06/18 11/06/18 11/06/18 22:05 22:40 23:35 WBC RBC Hgb Hct MCV MCHC RDW Plt Count Lymph % (Auto) [place] % (Auto) Lymph # [place] # Seg Neutrophils % Seg Neuts % (Manual) Lymphocytes % (Manual) Monocytes % (Manual) Nucleated RBC % Seg Neutrophils # Seg Neutrophils # Man Lymphocytes # (Manual) Monocytes # (Manual) POC ABG pH POC ABG pCO2 POC ABG pO2 VBG pH Sodium Potassium Chloride Carbon Dioxide 13 L BUN 86 H Creatinine 7.8 H Glucose 822 H* 726 H* POC Glucose Hemoglobin A1c Lactic Acid 3.40 H* Calcium 7.5 L Phosphorus Magnesium Direct Bilirubin AST ALT C-Reactive Protein Total Protein Albumin Salicylates Acetaminophen Heparin-induced Plt Ab 11/07/18 11/07/18 11/07/18 01:25 01:26 03:15 WBC RBC Hgb Hct MCV MCHC RDW Plt Count Lymph % (Auto) [place] % (Auto) Lymph # [place] # Seg Neutrophils % Seg Neuts % (Manual) Lymphocytes % (Manual) Monocytes % (Manual) Nucleated RBC % Seg Neutrophils # Seg Neutrophils # Man Lymphocytes # (Manual) Monocytes # (Manual) POC ABG pH POC ABG pCO2 POC ABG pO2 VBG pH Sodium Potassium Chloride Carbon Dioxide BUN Creatinine Glucose 602 H* POC Glucose > 500 H > 500 H Hemoglobin A1c Lactic Acid Calcium Phosphorus Magnesium Direct Bilirubin AST ALT C-Reactive Protein Total Protein Albumin Salicylates Acetaminophen Heparin-induced Plt Ab 11/07/18 11/07/18 11/07/18 03:20 04:32 04:47 WBC RBC Hgb Hct MCV MCHC RDW Plt Count Lymph % (Auto) [place] % (Auto) Lymph # [place] # Seg Neutrophils % Seg Neuts % (Manual) Lymphocytes % (Manual) Monocytes % (Manual) Nucleated RBC % Seg Neutrophils # Seg Neutrophils # Man Lymphocytes # (Manual) Monocytes # (Manual) POC ABG pH POC ABG pCO2 30.3 L POC ABG pO2 153 H VBG pH Sodium 149 H Potassium Chloride Carbon Dioxide 16 L BUN 86 H Creatinine 8.3 H Glucose 499.2 H POC Glucose 360 H Hemoglobin A1c Lactic Acid Calcium 7.6 L Phosphorus Magnesium Direct Bilirubin AST ALT C-Reactive Protein Total Protein Albumin Salicylates Acetaminophen Heparin-induced Plt Ab 11/07/18 11/07/18 11/07/18 05:26 06:35 06:36 WBC RBC Hgb Hct MCV MCHC RDW Plt Count Lymph % (Auto) [place] % (Auto) Lymph # [place] # Seg Neutrophils % Seg Neuts % (Manual) Lymphocytes % (Manual) Monocytes % (Manual) Nucleated RBC % Seg Neutrophils # Seg Neutrophils # Man Lymphocytes # (Manual) Monocytes # (Manual) POC ABG pH POC ABG pCO2 POC ABG pO2 VBG pH Sodium 153 H Potassium 3.2 L Chloride 109.7 H Carbon Dioxide BUN 84 H Creatinine 8.6 H Glucose 249 H POC Glucose 341 H 274 H Hemoglobin A1c Lactic Acid Calcium 7.6 L Phosphorus Magnesium Direct Bilirubin AST ALT C-Reactive Protein Total Protein Albumin Salicylates Acetaminophen Heparin-induced Plt Ab 11/07/18 11/07/18 11/07/18 07:33 09:00 09:52 WBC RBC Hgb Hct MCV MCHC RDW Plt Count Lymph % (Auto) [place] % (Auto) Lymph # [place] # Seg Neutrophils % Seg Neuts % (Manual) Lymphocytes % (Manual) Monocytes % (Manual) Nucleated RBC % Seg Neutrophils # Seg Neutrophils # Man Lymphocytes # (Manual) Monocytes # (Manual) POC ABG pH POC ABG pCO2 POC ABG pO2 VBG pH Sodium Potassium Chloride Carbon Dioxide BUN Creatinine Glucose POC Glucose 243 H 182 H 227 H Hemoglobin A1c Lactic Acid Calcium Phosphorus Magnesium Direct Bilirubin AST ALT C-Reactive Protein Total Protein Albumin Salicylates Acetaminophen Heparin-induced Plt Ab 11/07/18 11/07/18 11/07/18 10:50 10:50 10:50 WBC 11.3 H RBC 2.85 L Hgb 8.7 L Hct 25.3 L D MCV MCHC RDW Plt Count Lymph % (Auto) 9.7 L [place] % (Auto) Lymph # 1.1 L [place] # Seg Neutrophils % 83.3 H Seg Neuts % (Manual) Lymphocytes % (Manual) Monocytes % (Manual) Nucleated RBC % Seg Neutrophils # 9.4 H Seg Neutrophils # Man Lymphocytes # (Manual) Monocytes # (Manual) POC ABG pH POC ABG pCO2 POC ABG pO2 VBG pH Sodium 154 H Potassium 3.2 L Chloride 110.2 H Carbon Dioxide BUN 82 H Creatinine 8.3 H Glucose 186 H POC Glucose 200 H Hemoglobin A1c Lactic Acid Calcium 7.3 L Phosphorus Magnesium Direct Bilirubin AST ALT C-Reactive Protein Total Protein Albumin Salicylates Acetaminophen Heparin-induced Plt Ab 11/07/18 11/07/18 11/07/18 12:00 12:05 13:13 WBC RBC Hgb Hct MCV MCHC RDW Plt Count Lymph % (Auto) [place] % (Auto) Lymph # [place] # Seg Neutrophils % Seg Neuts % (Manual) Lymphocytes % (Manual) Monocytes % (Manual) Nucleated RBC % Seg Neutrophils # Seg Neutrophils # Man Lymphocytes # (Manual) Monocytes # (Manual) POC ABG pH POC ABG pCO2 POC ABG pO2 VBG pH Sodium Potassium Chloride Carbon Dioxide BUN Creatinine Glucose POC Glucose 179 H 190 H Hemoglobin A1c Lactic Acid 2.50 H* Calcium Phosphorus Magnesium Direct Bilirubin AST ALT C-Reactive Protein Total Protein Albumin Salicylates Acetaminophen Heparin-induced Plt Ab 11/07/18 11/07/18 11/07/18 13:20 14:05 15:18 WBC RBC Hgb Hct MCV MCHC RDW Plt Count Lymph % (Auto) [place] % (Auto) Lymph # [place] # Seg Neutrophils % Seg Neuts % (Manual) Lymphocytes % (Manual) Monocytes % (Manual) Nucleated RBC % Seg Neutrophils # Seg Neutrophils # Man Lymphocytes # (Manual) Monocytes # (Manual) POC ABG pH POC ABG pCO2 POC ABG pO2 VBG pH Sodium Potassium 3.1 L Chloride Carbon Dioxide BUN 50 H Creatinine 5.0 H Glucose 176 H POC Glucose 189 H 215 H Hemoglobin A1c Lactic Acid Calcium 7.4 L Phosphorus Magnesium Direct Bilirubin AST ALT C-Reactive Protein Total Protein Albumin Salicylates Acetaminophen Heparin-induced Plt Ab 11/07/18 11/07/18 11/07/18 16:25 17:37 23:23 WBC RBC Hgb Hct MCV MCHC RDW Plt Count Lymph % (Auto) [place] % (Auto) Lymph # [place] # Seg Neutrophils % Seg Neuts % (Manual) Lymphocytes % (Manual) Monocytes % (Manual) Nucleated RBC % Seg Neutrophils # Seg Neutrophils # Man Lymphocytes # (Manual) Monocytes # (Manual) POC ABG pH POC ABG pCO2 POC ABG pO2 VBG pH Sodium Potassium Chloride Carbon Dioxide BUN Creatinine Glucose POC Glucose 180 H 215 H 234 H Hemoglobin A1c Lactic Acid Calcium Phosphorus Magnesium Direct Bilirubin AST ALT C-Reactive Protein Total Protein Albumin Salicylates Acetaminophen Heparin-induced Plt Ab 11/08/18 11/08/18 11/08/18 04:17 04:23 04:23 WBC RBC 2.98 L Hgb 9.3 L Hct 26.7 L MCV MCHC 35 H RDW Plt Count 130 L Lymph % (Auto) [place] % (Auto) Lymph # [place] # Seg Neutrophils % 80.3 H Seg Neuts % (Manual) Lymphocytes % (Manual) Monocytes % (Manual) Nucleated RBC % Seg Neutrophils # 7.8 H Seg Neutrophils # Man Lymphocytes # (Manual) Monocytes # (Manual) POC ABG pH 7.520 H POC ABG pCO2 POC ABG pO2 111 H VBG pH Sodium Potassium 3.0 L Chloride Carbon Dioxide BUN 44 H Creatinine 6.3 H Glucose 245 H POC Glucose Hemoglobin A1c Lactic Acid Calcium 7.3 L Phosphorus Magnesium Direct Bilirubin AST ALT C-Reactive Protein Total Protein Albumin Salicylates Acetaminophen Heparin-induced Plt Ab 11/08/18 11/08/18 11/08/18 05:19 08:00 08:00 WBC RBC Hgb Hct MCV MCHC RDW Plt Count Lymph % (Auto) [place] % (Auto) Lymph # [place] # Seg Neutrophils % Seg Neuts % (Manual) Lymphocytes % (Manual) Monocytes % (Manual) Nucleated RBC % Seg Neutrophils # Seg Neutrophils # Man Lymphocytes # (Manual) Monocytes # (Manual) POC ABG pH POC ABG pCO2 POC ABG pO2 VBG pH Sodium Potassium Chloride Carbon Dioxide BUN Creatinine Glucose POC Glucose 253 H Hemoglobin A1c Lactic Acid 2.70 H* Calcium Phosphorus Magnesium Direct Bilirubin 0.3 H AST 932 H ALT 582 H C-Reactive Protein Total Protein 5.4 L Albumin 2.6 L Salicylates Acetaminophen Heparin-induced Plt Ab 11/08/18 11/08/18 11/08/18 11:36 17:51 21:59 WBC RBC Hgb Hct MCV MCHC RDW Plt Count Lymph % (Auto) [place] % (Auto) Lymph # [place] # Seg Neutrophils % Seg Neuts % (Manual) Lymphocytes % (Manual) Monocytes % (Manual) Nucleated RBC % Seg Neutrophils # Seg Neutrophils # Man Lymphocytes # (Manual) Monocytes # (Manual) POC ABG pH 7.459 H POC ABG pCO2 POC ABG pO2 108 H VBG pH Sodium Potassium Chloride Carbon Dioxide BUN Creatinine Glucose POC Glucose 197 H Hemoglobin A1c Lactic Acid Calcium Phosphorus Magnesium Direct Bilirubin AST ALT C-Reactive Protein Total Protein Albumin Salicylates Acetaminophen Heparin-induced Plt Ab Positive H 11/08/18 11/09/18 11/09/18 23:28 00:39 02:20 WBC RBC Hgb Hct MCV MCHC RDW Plt Count Lymph % (Auto) [place] % (Auto) Lymph # [place] # Seg Neutrophils % Seg Neuts % (Manual) Lymphocytes % (Manual) Monocytes % (Manual) Nucleated RBC % Seg Neutrophils # Seg Neutrophils # Man Lymphocytes # (Manual) Monocytes # (Manual) POC ABG pH POC ABG pCO2 POC ABG pO2 VBG pH Sodium Potassium Chloride Carbon Dioxide BUN Creatinine Glucose POC Glucose 418 H 471 H 254 H Hemoglobin A1c Lactic Acid Calcium Phosphorus Magnesium Direct Bilirubin AST ALT C-Reactive Protein Total Protein Albumin Salicylates Acetaminophen Heparin-induced Plt Ab 11/09/18 11/09/18 11/09/18 03:48 06:02 06:02 WBC RBC 2.95 L Hgb 9.2 L Hct 26.7 L MCV MCHC RDW Plt Count 101 L Lymph % (Auto) [place] % (Auto) Lymph # [place] # Seg Neutrophils % Seg Neuts % (Manual) Lymphocytes % (Manual) Monocytes % (Manual) Nucleated RBC % Seg Neutrophils # Seg Neutrophils # Man Lymphocytes # (Manual) Monocytes # (Manual) POC ABG pH POC ABG pCO2 POC ABG pO2 108 H VBG pH Sodium 150 H Potassium Chloride 108.3 H Carbon Dioxide BUN 44 H Creatinine 7.7 H Glucose 102 H POC Glucose Hemoglobin A1c Lactic Acid Calcium 7.2 L Phosphorus Magnesium Direct Bilirubin AST 554 H ALT 461 H C-Reactive Protein Total Protein 5.1 L Albumin 2.6 L Salicylates Acetaminophen Heparin-induced Plt Ab 11/09/18 11/09/18 11/09/18 17:49 18:49 23:32 WBC RBC Hgb Hct MCV MCHC RDW Plt Count Lymph % (Auto) [place] % (Auto) Lymph # [place] # Seg Neutrophils % Seg Neuts % (Manual) Lymphocytes % (Manual) Monocytes % (Manual) Nucleated RBC % Seg Neutrophils # Seg Neutrophils # Man Lymphocytes # (Manual) Monocytes # (Manual) POC ABG pH POC ABG pCO2 46.2 H POC ABG pO2 VBG pH Sodium Potassium Chloride Carbon Dioxide BUN Creatinine Glucose POC Glucose 184 H 150 H Hemoglobin A1c Lactic Acid Calcium Phosphorus Magnesium Direct Bilirubin AST ALT C-Reactive Protein Total Protein Albumin Salicylates Acetaminophen Heparin-induced Plt Ab 11/10/18 11/10/18 11/10/18 02:52 05:00 05:00 WBC RBC 2.95 L Hgb 8.9 L Hct 26.6 L MCV MCHC RDW Plt Count 100 L Lymph % (Auto) [place] % (Auto) Lymph # [place] # Seg Neutrophils % Seg Neuts % (Manual) Lymphocytes % (Manual) Monocytes % (Manual) 8.0 H Nucleated RBC % Seg Neutrophils # Seg Neutrophils # Man Lymphocytes # (Manual) Monocytes # (Manual) POC ABG pH POC ABG pCO2 POC ABG pO2 VBG pH Sodium Potassium Chloride Carbon Dioxide BUN 33 H Creatinine 6.8 H Glucose 251 H POC Glucose 186 H Hemoglobin A1c Lactic Acid Calcium 7.3 L Phosphorus Magnesium Direct Bilirubin AST ALT C-Reactive Protein Total Protein Albumin Salicylates Acetaminophen Heparin-induced Plt Ab 11/10/18 11/10/18 11/10/18 05:16 11:47 17:32 WBC RBC Hgb Hct MCV MCHC RDW Plt Count Lymph % (Auto) [place] % (Auto) Lymph # [place] # Seg Neutrophils % Seg Neuts % (Manual) Lymphocytes % (Manual) Monocytes % (Manual) Nucleated RBC % Seg Neutrophils # Seg Neutrophils # Man Lymphocytes # (Manual) Monocytes # (Manual) POC ABG pH POC ABG pCO2 POC ABG pO2 VBG pH Sodium Potassium Chloride Carbon Dioxide BUN Creatinine Glucose POC Glucose 242 H 261 H 194 H Hemoglobin A1c Lactic Acid Calcium Phosphorus Magnesium Direct Bilirubin AST ALT C-Reactive Protein Total Protein Albumin Salicylates Acetaminophen Heparin-induced Plt Ab 11/10/18 11/11/18 11/11/18 23:39 00:26 04:24 WBC RBC 2.98 L Hgb 9.1 L Hct 27.4 L MCV MCHC RDW Plt Count 114 L Lymph % (Auto) [place] % (Auto) Lymph # [place] # Seg Neutrophils % Seg Neuts % (Manual) Lymphocytes % (Manual) Monocytes % (Manual) 10.0 H Nucleated RBC % Seg Neutrophils # Seg Neutrophils # Man Lymphocytes # (Manual) Monocytes # (Manual) 1.0 H POC ABG pH POC ABG pCO2 POC ABG pO2 VBG pH Sodium Potassium Chloride Carbon Dioxide BUN Creatinine Glucose POC Glucose 60 L 124 H Hemoglobin A1c Lactic Acid Calcium Phosphorus Magnesium Direct Bilirubin AST ALT C-Reactive Protein Total Protein Albumin Salicylates Acetaminophen Heparin-induced Plt Ab 11/11/18 11/11/18 11/11/18 04:24 05:27 05:31 WBC RBC Hgb Hct MCV MCHC RDW Plt Count Lymph % (Auto) [place] % (Auto) Lymph # [place] # Seg Neutrophils % Seg Neuts % (Manual) Lymphocytes % (Manual) Monocytes % (Manual) Nucleated RBC % Seg Neutrophils # Seg Neutrophils # Man Lymphocytes # (Manual) Monocytes # (Manual) POC ABG pH POC ABG pCO2 48.8 H POC ABG pO2 109 H VBG pH Sodium Potassium Chloride Carbon Dioxide BUN 23 H Creatinine 5.5 H Glucose 147 H POC Glucose 172 H Hemoglobin A1c Lactic Acid Calcium 7.9 L Phosphorus Magnesium Direct Bilirubin AST 152 H ALT 247 H C-Reactive Protein Total Protein Albumin 2.3 L Salicylates Acetaminophen Heparin-induced Plt Ab 11/11/18 11/11/18 11/11/18 12:11 17:12 23:41 WBC RBC Hgb Hct MCV MCHC RDW Plt Count Lymph % (Auto) [place] % (Auto) Lymph # [place] # Seg Neutrophils % Seg Neuts % (Manual) Lymphocytes % (Manual) Monocytes % (Manual) Nucleated RBC % Seg Neutrophils # Seg Neutrophils # Man Lymphocytes # (Manual) Monocytes # (Manual) POC ABG pH POC ABG pCO2 POC ABG pO2 VBG pH Sodium Potassium Chloride Carbon Dioxide BUN Creatinine Glucose POC Glucose 343 H 188 H 145 H Hemoglobin A1c Lactic Acid Calcium Phosphorus Magnesium Direct Bilirubin AST ALT C-Reactive Protein Total Protein Albumin Salicylates Acetaminophen Heparin-induced Plt Ab 11/12/18 11/12/18 11/12/18 00:11 04:44 04:44 WBC RBC 2.91 L Hgb 9.0 L Hct 26.9 L MCV MCHC RDW Plt Count Lymph % (Auto) 12.7 L [place] % (Auto) 14.9 H Lymph # 0.8 L [place] # 1.0 H Seg Neutrophils % 71.2 H Seg Neuts % (Manual) Lymphocytes % (Manual) Monocytes % (Manual) Nucleated RBC % Seg Neutrophils # Seg Neutrophils # Man Lymphocytes # (Manual) Monocytes # (Manual) POC ABG pH POC ABG pCO2 POC ABG pO2 VBG pH Sodium Potassium Chloride Carbon Dioxide BUN 22 H Creatinine 5.0 H Glucose 288 H POC Glucose 151 H Hemoglobin A1c Lactic Acid Calcium Phosphorus Magnesium Direct Bilirubin AST 88 H ALT 187 H C-Reactive Protein Total Protein Albumin 2.9 L Salicylates Acetaminophen Heparin-induced Plt Ab 11/12/18 11/12/18 11/12/18 11:48 12:28 17:13 WBC RBC Hgb Hct MCV MCHC RDW Plt Count Lymph % (Auto) [place] % (Auto) Lymph # [place] # Seg Neutrophils % Seg Neuts % (Manual) Lymphocytes % (Manual) Monocytes % (Manual) Nucleated RBC % Seg Neutrophils # Seg Neutrophils # Man Lymphocytes # (Manual) Monocytes # (Manual) POC ABG pH POC ABG pCO2 POC ABG pO2 VBG pH Sodium Potassium Chloride Carbon Dioxide BUN Creatinine Glucose POC Glucose 414 H 437 H 251 H Hemoglobin A1c Lactic Acid Calcium Phosphorus Magnesium Direct Bilirubin AST ALT C-Reactive Protein Total Protein Albumin Salicylates Acetaminophen Heparin-induced Plt Ab 11/13/18 11/13/18 11/13/18 00:43 04:14 04:14 WBC RBC 2.62 L Hgb 8.0 L Hct 24.0 L MCV MCHC RDW Plt Count Lymph % (Auto) [place] % (Auto) 15.8 H Lymph # [place] # 0.9 H Seg Neutrophils % Seg Neuts % (Manual) Lymphocytes % (Manual) Monocytes % (Manual) Nucleated RBC % Seg Neutrophils # Seg Neutrophils # Man Lymphocytes # (Manual) Monocytes # (Manual) POC ABG pH POC ABG pCO2 POC ABG pO2 VBG pH Sodium Potassium Chloride Carbon Dioxide BUN 32 H Creatinine 6.9 H Glucose 190 H POC Glucose 149 H Hemoglobin A1c Lactic Acid Calcium Phosphorus Magnesium Direct Bilirubin AST ALT C-Reactive Protein Total Protein Albumin Salicylates Acetaminophen Heparin-induced Plt Ab 11/13/18 11/13/18 11/13/18 05:53 10:40 12:05 WBC RBC Hgb Hct MCV MCHC RDW Plt Count Lymph % (Auto) [place] % (Auto) Lymph # [place] # Seg Neutrophils % Seg Neuts % (Manual) Lymphocytes % (Manual) Monocytes % (Manual) Nucleated RBC % Seg Neutrophils # Seg Neutrophils # Man Lymphocytes # (Manual) Monocytes # (Manual) POC ABG pH POC ABG pCO2 POC ABG pO2 VBG pH Sodium Potassium Chloride Carbon Dioxide BUN Creatinine Glucose POC Glucose 270 H 405 H 361 H Hemoglobin A1c Lactic Acid Calcium Phosphorus Magnesium Direct Bilirubin AST ALT C-Reactive Protein Total Protein Albumin Salicylates Acetaminophen Heparin-induced Plt Ab 11/13/18 11/13/18 11/14/18 18:48 23:55 04:57 WBC RBC 2.75 L Hgb 8.3 L Hct 25.2 L MCV MCHC RDW Plt Count Lymph % (Auto) [place] % (Auto) 15.8 H Lymph # 0.9 L [place] # 0.9 H Seg Neutrophils % Seg Neuts % (Manual) Lymphocytes % (Manual) Monocytes % (Manual) Nucleated RBC % Seg Neutrophils # Seg Neutrophils # Man Lymphocytes # (Manual) Monocytes # (Manual) POC ABG pH POC ABG pCO2 POC ABG pO2 VBG pH Sodium Potassium Chloride Carbon Dioxide BUN Creatinine Glucose POC Glucose 202 H 254 H Hemoglobin A1c Lactic Acid Calcium Phosphorus Magnesium Direct Bilirubin AST ALT C-Reactive Protein Total Protein Albumin Salicylates Acetaminophen Heparin-induced Plt Ab 11/14/18 11/14/18 11/14/18 04:57 05:33 11:37 WBC RBC Hgb Hct MCV MCHC RDW Plt Count Lymph % (Auto) [place] % (Auto) Lymph # [place] # Seg Neutrophils % Seg Neuts % (Manual) Lymphocytes % (Manual) Monocytes % (Manual) Nucleated RBC % Seg Neutrophils # Seg Neutrophils # Man Lymphocytes # (Manual) Monocytes # (Manual) POC ABG pH POC ABG pCO2 POC ABG pO2 VBG pH Sodium 136 L Potassium Chloride 96.7 L Carbon Dioxide BUN 25 H Creatinine 5.3 H Glucose 235 H POC Glucose 242 H 272 H Hemoglobin A1c Lactic Acid Calcium Phosphorus Magnesium Direct Bilirubin AST ALT C-Reactive Protein Total Protein Albumin Salicylates Acetaminophen Heparin-induced Plt Ab 11/14/18 11/14/18 11/15/18 18:08 23:21 04:50 WBC RBC 2.76 L Hgb 8.5 L Hct 25.4 L MCV MCHC RDW Plt Count Lymph % (Auto) [place] % (Auto) 14.5 H Lymph # [place] # 1.1 H Seg Neutrophils % Seg Neuts % (Manual) Lymphocytes % (Manual) Monocytes % (Manual) Nucleated RBC % Seg Neutrophils # Seg Neutrophils # Man Lymphocytes # (Manual) Monocytes # (Manual) POC ABG pH POC ABG pCO2 POC ABG pO2 VBG pH Sodium Potassium Chloride Carbon Dioxide BUN Creatinine Glucose POC Glucose 166 H 185 H Hemoglobin A1c Lactic Acid Calcium Phosphorus Magnesium Direct Bilirubin AST ALT C-Reactive Protein Total Protein Albumin Salicylates Acetaminophen Heparin-induced Plt Ab 11/15/18 11/15/18 11/15/18 04:50 04:50 06:01 WBC RBC Hgb Hct MCV MCHC RDW Plt Count Lymph % (Auto) [place] % (Auto) Lymph # [place] # Seg Neutrophils % Seg Neuts % (Manual) Lymphocytes % (Manual) Monocytes % (Manual) Nucleated RBC % Seg Neutrophils # Seg Neutrophils # Man Lymphocytes # (Manual) Monocytes # (Manual) POC ABG pH POC ABG pCO2 POC ABG pO2 VBG pH Sodium Potassium Chloride 95.2 L Carbon Dioxide BUN 21 H Creatinine 4.8 H Glucose 126 H POC Glucose 150 H Hemoglobin A1c 10.1 H Lactic Acid Calcium Phosphorus Magnesium Direct Bilirubin AST ALT 69 H C-Reactive Protein Total Protein Albumin 2.7 L Salicylates Acetaminophen Heparin-induced Plt Ab 11/15/18 11/15/18 11/16/18 13:06 18:08 00:39 WBC RBC Hgb Hct MCV MCHC RDW Plt Count Lymph % (Auto) [place] % (Auto) Lymph # [place] # Seg Neutrophils % Seg Neuts % (Manual) Lymphocytes % (Manual) Monocytes % (Manual) Nucleated RBC % Seg Neutrophils # Seg Neutrophils # Man Lymphocytes # (Manual) Monocytes # (Manual) POC ABG pH POC ABG pCO2 POC ABG pO2 VBG pH Sodium Potassium Chloride Carbon Dioxide BUN Creatinine Glucose POC Glucose 191 H 114 H 147 H Hemoglobin A1c Lactic Acid Calcium Phosphorus Magnesium Direct Bilirubin AST ALT C-Reactive Protein Total Protein Albumin Salicylates Acetaminophen Heparin-induced Plt Ab 11/16/18 11/16/18 11/16/18 04:49 04:49 06:09 WBC RBC 2.60 L Hgb 8.0 L Hct 23.4 L MCV MCHC RDW Plt Count Lymph % (Auto) [place] % (Auto) 14.1 H Lymph # [place] # 1.2 H Seg Neutrophils % Seg Neuts % (Manual) Lymphocytes % (Manual) Monocytes % (Manual) Nucleated RBC % Seg Neutrophils # Seg Neutrophils # Man Lymphocytes # (Manual) Monocytes # (Manual) POC ABG pH POC ABG pCO2 POC ABG pO2 VBG pH Sodium 136 L Potassium Chloride 94.1 L Carbon Dioxide BUN 39 H Creatinine 7.4 H D Glucose 243 H POC Glucose 308 H Hemoglobin A1c Lactic Acid Calcium 8.3 L Phosphorus Magnesium Direct Bilirubin AST ALT C-Reactive Protein Total Protein Albumin 2.2 L Salicylates Acetaminophen Heparin-induced Plt Ab 11/16/18 11/16/18 11/16/18 08:52 11:53 17:11 WBC RBC Hgb Hct MCV MCHC RDW Plt Count Lymph % (Auto) [place] % (Auto) Lymph # [place] # Seg Neutrophils % Seg Neuts % (Manual) Lymphocytes % (Manual) Monocytes % (Manual) Nucleated RBC % Seg Neutrophils # Seg Neutrophils # Man Lymphocytes # (Manual) Monocytes # (Manual) POC ABG pH POC ABG pCO2 POC ABG pO2 VBG pH Sodium Potassium Chloride Carbon Dioxide BUN Creatinine Glucose POC Glucose 278 H 178 H 173 H Hemoglobin A1c Lactic Acid Calcium Phosphorus Magnesium Direct Bilirubin AST ALT C-Reactive Protein Total Protein Albumin Salicylates Acetaminophen Heparin-induced Plt Ab 11/16/18 11/17/18 11/17/18 21:27 00:08 04:45 WBC RBC 2.58 L Hgb 7.9 L Hct 23.5 L MCV MCHC RDW Plt Count Lymph % (Auto) [place] % (Auto) 10.3 H Lymph # [place] # 1.1 H Seg Neutrophils % 74.8 H Seg Neuts % (Manual) Lymphocytes % (Manual) Monocytes % (Manual) Nucleated RBC % Seg Neutrophils # Seg Neutrophils # Man Lymphocytes # (Manual) Monocytes # (Manual) POC ABG pH POC ABG pCO2 POC ABG pO2 VBG pH Sodium Potassium Chloride Carbon Dioxide BUN Creatinine Glucose POC Glucose 206 H 151 H Hemoglobin A1c Lactic Acid Calcium Phosphorus Magnesium Direct Bilirubin AST ALT C-Reactive Protein Total Protein Albumin Salicylates Acetaminophen Heparin-induced Plt Ab 11/17/18 11/17/18 11/17/18 04:45 05:12 05:31 WBC RBC Hgb Hct MCV MCHC RDW Plt Count Lymph % (Auto) [place] % (Auto) Lymph # [place] # Seg Neutrophils % Seg Neuts % (Manual) Lymphocytes % (Manual) Monocytes % (Manual) Nucleated RBC % Seg Neutrophils # Seg Neutrophils # Man Lymphocytes # (Manual) Monocytes # (Manual) POC ABG pH 7.481 H POC ABG pCO2 POC ABG pO2 VBG pH Sodium 136 L Potassium Chloride 94.4 L Carbon Dioxide BUN 38 H Creatinine 6.8 H Glucose POC Glucose 111 H Hemoglobin A1c Lactic Acid Calcium Phosphorus Magnesium 2.40 H Direct Bilirubin AST ALT C-Reactive Protein Total Protein Albumin Salicylates Acetaminophen Heparin-induced Plt Ab Allied health notes reviewed: nursing
[2018-11-17] MEDS: SODIUM CHLORIDE FLUSH SYRINGE 10 ML IV SCH (09:15)
--- NOTE | 2018-11-17 09:31 | Progress Note ---
Assessment and Plan Currently stable cardiac status. VSS. Continue supportive measures. Can consider addition of ACEI/ARB in setting of CMP if BPs permit, cont BB. ? Pt initiated on Eliquis per critical care team. Tele reviewed, no current apparent cardiac indication for systemic AC. Pt noted to be increasingly anemic, consider d/c of Eliquis per primary/critical care team. The patient has been seen in conjunction with Dr. Allen who agrees with the assessment and plan of care. - Patient Problems (1) Cardiopulmonary arrest Current Visit: Yes Status: Acute (2) Cardiomyopathy Current Visit: Yes Status: Acute (3) DKA (diabetic ketoacidoses) Current Visit: Yes Status: Acute Qualifiers: Diabetes mellitus type: type 2 Diabetes mellitus complication detail: with coma Qualified Code(s): E11.11 - Type 2 diabetes mellitus with ketoacidosis with coma (4) Metabolic acidosis Current Visit: Yes Status: Acute (5) Anoxic brain injury Current Visit: Yes Status: Suspected (6) ESRD (end stage renal disease) on dialysis Current Visit: Yes Status: Chronic (7) Anemia Current Visit: Yes Status: Acute (8) Thrombocytopenia Current Visit: Yes Status: Acute (9) PAD (peripheral artery disease) Current Visit: Yes Status: Chronic (10) History of seizures Current Visit: Yes Status: Chronic (11) Tobacco use Current Visit: Yes Status: Chronic Subjective Date of service: 11/17/18 Principal diagnosis: Ac hypoxemic resp failure; DKA; Severe sepsis with shock; ESRD on dialysis Interval history: pt remains intubated, nonresponsive. in SR on tele. Objective Last Vital Signs Temp 98.3 F 11/17/18 03:42 Pulse 100 H 11/17/18 09:00 Resp 20 11/17/18 09:00 BP 169/92 11/17/18 09:00 Pulse Ox 100 11/17/18 09:00 - Physical Examination General: Other (intubated, unresponsive) HEENT: Positive: Normocephaly, Mucus Membranes Moist Neck: Positive: neck supple, trachea midline Cardiac: Positive: Reg Rate and Rhythm, S1/S2 Lungs: Positive: Ventilated Respirations Neuro: Positive: Other (Unresponsive) Abdomen: Positive: Soft, Active Bowel Sounds Skin: Positive: Clear Musculoskeletal: other (No purposeful movement.) Extremities: Present: normal, Cool. Absent: edema - Labs and Meds CBC 11/17/18 Range/Units 04:45 WBC 10.3 (4.5-11.0) K/mm3 RBC 2.58 L (3.65-5.03) M/mm3 Hgb 7.9 L (11.8-15.2) gm/dl Hct 23.5 L (35.5-45.6) % Plt Count 417 (140-440) K/mm3 Lymph # 1.4 (1.2-5.4) K/mm3 [place] # 1.1 H (0.0-0.8) K/mm3 Eos # 0.1 (0.0-0.4) K/mm3 Baso # 0.0 (0.0-0.1) K/mm3 Comprehensive Metabolic Panel 11/17/18 Range/Units 04:45 Sodium 136 L (137-145) mmol/L Potassium 4.5 (3.6-5.0) mmol/L Chloride 94.4 L (98-107) mmol/L Carbon Dioxide 29 (22-30) mmol/L BUN 38 H (9-20) mg/dL Creatinine 6.8 H (0.8-1.5) mg/dL Glucose 95 (75-100) mg/dL Calcium 8.7 (8.4-10.2) mg/dL - Imaging and Cardiology EKG: image reviewed Echo: report reviewed (EF 30-35%, mild MR and TR. ) - EKG Sinus rhythms and dysrhythmias: sinus arrest or pause Ventricular dysrhythmias: idioventricular escape rh AV and intraventricular conduction: intraventricular conducti Repolarization changes or abnormalities: Suggestive of hyperkalemia (wide QRS complexes and ST depression evaluation probably all due to severe hyperkalemia. The last EKG does not show any ST elevation but continues to show peaked T waves.) - Allied health notes Allied health notes reviewed: nursing
[2018-11-17] MEDS: KEPPRA 750 MG in D5W 100 ML IV SCH (09:43)
[2018-11-17] MEDS: PREVACID SOLUTAB FEEDTUBE SCH (09:44)
[2018-11-17] MEDS: FLOMAX PO SCH (09:44)
[2018-11-17] MEDS: PROVIGIL PO SCH (09:44)
[2018-11-17] MEDS ORDERED: NACL 0.9% 100 ML IV PRN (09:54)
--- NOTE | 2018-11-17 09:55 | Progress Note ---
Assessment and Plan Acute Kidney Injury secondary to ischemic ATN from hypotension, cardiac arrest, in setting of underlying hx CKD 4: Severe Renal Failure, requiring hemodialysis initiation: S/P High Anion Gap Metabolic Acidosis with elevated lactic acidosis with DKA: S/P Hyperkalemia: S/P Hyperphosphatemia: Hypernatremia: Hypokalemia, Resolving: - HD today. - Strict monitoring of I/O's - Hypernatremia- On free water flushes of 250 ml every 4 hours via NG tube - Monitor BMP daily - Renally dose medications - Avoid Nephrotoxic agents - Obtain daily weights - Salgado Catheter: Yes - Assess dialysis needs daily S/p Cardiopulmonary arrest. STEMI: Hypoxic respiratory failure: -S/P CPR and ACLS protocol -Now off pressor support -Cardiology on board -Intubated on Vent. 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 per neurology -On IV Keppra -As per Neurology Bran Young MD [phone] Subjective Date of service: 11/17/18 Principal diagnosis: Ac hypoxemic resp failure; DKA; Severe sepsis with shock; ESRD on dialysis Interval history: Intubated on Vent. Objective - Exam Narrative Exam: General appearance: well-developed, sedated on ventilator, intubated EENT: ATNC, PERRL Neck: no JVD, supple Respiratory: Present: Decreased Breath Sounds Cardiology: tachycardia, S1S2 Gastrointestinal: normoactive bowel sounds Integumentary: warm and dry Neurologic: alert and oriented x3 Musculoskeletal: other (trace edema to feet) - Vital Signs Vital signs: Vital Signs - 12hr 11/16/18 11/16/18 11/16/18 22:00 22:15 22:30 Temperature Pulse Rate 96 H 96 H 94 H Pulse Rate [ From Monitor] Respiratory 20 22 20 Rate Respiratory Rate [ Generalized] Blood Pressure 156/82 131/84 152/83 O2 Sat by Pulse 99 100 100 Oximetry 11/16/18 11/16/18 11/16/18 22:45 23:00 23:15 Temperature Pulse Rate 96 H 97 H Pulse Rate [ From Monitor] Respiratory 20 20 26 H Rate Respiratory Rate [ Generalized] Blood Pressure 152/88 153/76 152/83 O2 Sat by Pulse 100 100 99 Oximetry 11/16/18 11/16/18 11/16/18 23:30 23:35 23:36 Temperature Pulse Rate 96 H 96 H 96 H Pulse Rate [ 95 H From Monitor] Respiratory 20 20 20 Rate Respiratory Rate [ Generalized] Blood Pressure 146/78 146/78 O2 Sat by Pulse 100 100 100 Oximetry 11/16/18 11/16/18 11/16/18 23:43 23:45 23:46 Temperature 99.6 F Pulse Rate 94 H 94 H Pulse Rate [ From Monitor] Respiratory 20 20 Rate Respiratory Rate [ Generalized] Blood Pressure 135/68 146/78 O2 Sat by Pulse 100 100 Oximetry 11/17/18 11/17/18 11/17/18 00:00 00:01 00:15 Temperature Pulse Rate 95 H 94 H 93 H Pulse Rate [ From Monitor] Respiratory 20 20 20 Rate Respiratory Rate [ Generalized] Blood Pressure 150/85 150/85 131/70 O2 Sat by Pulse 100 100 100 Oximetry 11/17/18 11/17/18 11/17/18 00:30 00:45 01:00 Temperature Pulse Rate 94 H 94 H 95 H Pulse Rate [ From Monitor] Respiratory 20 20 20 Rate Respiratory Rate [ Generalized] Blood Pressure 142/78 139/75 140/73 O2 Sat by Pulse 100 100 100 Oximetry 11/17/18 11/17/18 11/17/18 01:15 01:30 01:45 Temperature Pulse Rate 95 H 106 H 98 H Pulse Rate [ From Monitor] Respiratory 20 21 20 Rate Respiratory Rate [ Generalized] Blood Pressure 135/70 135/70 125/74 O2 Sat by Pulse 100 100 100 Oximetry 11/17/18 11/17/18 11/17/18 02:00 02:15 02:31 Temperature Pulse Rate 102 H 97 H 100 H Pulse Rate [ 95 H From Monitor] Respiratory 21 20 20 Rate Respiratory 12 Rate [ Generalized] Blood Pressure 142/78 134/76 127/76 O2 Sat by Pulse 100 100 100 Oximetry 11/17/18 11/17/18 11/17/18 02:45 03:00 03:15 Temperature Pulse Rate 97 H 98 H 95 H Pulse Rate [ From Monitor] Respiratory 20 21 20 Rate Respiratory Rate [ Generalized] Blood Pressure 141/72 146/78 142/77 O2 Sat by Pulse 100 100 100 Oximetry 11/17/18 11/17/18 11/17/18 03:30 03:42 03:45 Temperature 98.3 F Pulse Rate 94 H 100 H Pulse Rate [ From Monitor] Respiratory 20 7 L Rate Respiratory Rate [ Generalized] Blood Pressure 143/74 140/74 O2 Sat by Pulse 100 99 Oximetry 11/17/18 11/17/18 11/17/18 04:00 04:15 04:30 Temperature Pulse Rate 103 H 102 H 98 H Pulse Rate [ 95 H From Monitor] Respiratory 20 16 20 Rate Respiratory Rate [ Generalized] Blood Pressure 140/56 148/79 148/73 O2 Sat by Pulse 100 100 100 Oximetry 11/17/18 11/17/18 11/17/18 04:45 05:00 05:15 Temperature Pulse Rate 97 H 97 H 102 H Pulse Rate [ From Monitor] Respiratory 20 20 20 Rate Respiratory Rate [ Generalized] Blood Pressure 151/77 135/70 140/74 O2 Sat by Pulse 100 100 100 Oximetry 11/17/18 11/17/18 11/17/18 05:30 05:33 05:40 Temperature Pulse Rate 101 H 103 H 102 H Pulse Rate [ 102 H From Monitor] Respiratory 20 20 Rate Respiratory Rate [ Generalized] Blood Pressure 138/71 133/53 O2 Sat by Pulse 100 100 Oximetry 11/17/18 11/17/18 11/17/18 05:45 06:00 06:15 Temperature Pulse Rate 101 H 100 H 97 H Pulse Rate [ From Monitor] Respiratory 20 20 20 Rate Respiratory Rate [ Generalized] Blood Pressure 140/72 138/71 137/75 O2 Sat by Pulse 100 100 100 Oximetry 11/17/18 11/17/18 11/17/18 06:30 06:45 07:00 Temperature Pulse Rate 102 H 97 H 98 H Pulse Rate [ From Monitor] Respiratory 17 20 20 Rate Respiratory Rate [ Generalized] Blood Pressure 145/77 145/81 140/79 O2 Sat by Pulse 100 100 99 Oximetry 11/17/18 11/17/18 11/17/18 07:15 07:30 07:45 Temperature Pulse Rate 100 H 97 H 99 H Pulse Rate [ From Monitor] Respiratory 19 20 20 Rate Respiratory Rate [ Generalized] Blood Pressure 140/79 149/72 143/77 O2 Sat by Pulse 100 100 99 Oximetry 11/17/18 11/17/18 11/17/18 08:00 08:15 08:21 Temperature Pulse Rate 98 H 99 H 99 H Pulse Rate [ From Monitor] Respiratory 20 20 Rate Respiratory Rate [ Generalized] Blood Pressure 150/85 155/88 155/88 O2 Sat by Pulse 100 100 100 Oximetry 11/17/18 11/17/18 11/17/18 08:30 08:45 09:00 Temperature Pulse Rate 97 H 100 H 100 H Pulse Rate [ From Monitor] Respiratory 20 20 20 Rate Respiratory Rate [ Generalized] Blood Pressure 148/87 157/92 169/92 O2 Sat by Pulse 100 100 100 Oximetry 11/17/18 09:45 Temperature Pulse Rate 100 H Pulse Rate [ From Monitor] Respiratory Rate Respiratory Rate [ Generalized] Blood Pressure 136/66 O2 Sat by Pulse Oximetry - Lab 11/17/18 04:45 11/17/18 04:45 Most recent lab results Calcium 8.7 mg/dL (8.4-10.2) 11/17/18 04:45 Phosphorus 3.50 mg/dL (2.5-4.5) 11/12/18 04:44 Magnesium 2.40 mg/dL (1.7-2.3) H 11/17/18 04:45 Medications & Allergies - Medications Allergies/Adverse Reactions: Allergies No Known Allergies Allergy (Verified 03/17/18 11:54) Home Medications: Home Medications Medication Instructions Recorded Confirmed Last Taken Type Esomeprazole Magnesium [NexIUM] 20 mg PO QDAY #30 suspdr.pkt 03/17/18 11/07/18 Unknown Rx HYDROcodone/APAP 5-325 [[place] 1 each PO Q6HR PRN #15 tablet 03/17/18 11/07/18 Unknown Rx 5/325] Metoclopramide [Reglan] 10 mg PO TID #21 tab 03/17/18 11/07/18 Unknown Rx Ondansetron [Zofran Odt] 4 mg PO Q4HR PRN #20 tab.rapdis 03/17/18 11/07/18 Unknown Rx Active Medications: Generic Name Dose Route Start Last Admin Trade Name Freq PRN Reason Stop Dose Admin Acetaminophen 650 mg 11/06/18 22:22 11/11/18 07:33 Tylenol FEEDTUBE 650 mg Q6H PRN Administration Fever >101 Lipase/Protease/Amylase 1 each 11/08/18 18:38 Pancreaze 10,500 Unit FEEDTUBE PRN PRN For Clogged Feeding Tube Apixaban 2.5 mg 11/13/18 10:00 11/16/18 21:35 Eliquis FEEDTUBE 2.5 mg BID MARIAJOSE Administration Chlorpromazine HCl 10 mg 11/07/18 08:07 11/10/18 05:36 Thorazine PO 10 mg Q6H PRN Administration Hiccups Clonazepam 0.5 mg 11/12/18 16:49 11/13/18 23:10 Klonopin PO 0.5 mg Q12H PRN Administration myoclonic jerks Dextrose 50 ml 11/07/18 16:46 11/10/18 23:43 D50w (25gm) Syringe IV 50 ml PRN PRN Administration Hypoglycemia Fentanyl 50 mcg 11/06/18 08:37 Sublimaze IV Q10MIN PRN ANALGESIA Hydralazine HCl 10 mg 11/08/18 00:56 11/14/18 08:34 Apresoline IV 10 mg Q4H PRN Administration Hypertension Hydralazine HCl 50 mg 11/14/18 09:16 11/17/18 05:33 Apresoline PO 50 mg Q8HR MARIAJOSE Administration Hydrophilic Ointment 1 applic 11/06/18 08:26 11/10/18 19:52 Vaseline Lip Therapy TP 1 applic Q2HR PRN Administration Dry Lips Fentanyl Citrate 2,000 mcg in 100 mls @ 4.309 mls/hr 11/06/18 10:00 11/16/18 16:10 Fentanyl Drip Premix IV 0.5 mcg/kg/hr TITR MARIAJOSE 2.155 mls/hr Administration Protocol 1 MCG/KG/HR Levetiracetam 750 mg/ Dextrose 107.5 mls @ 400 mls/hr 11/12/18 22:00 11/17/18 09:43 IV 11/17/18 23:59 400 mls/hr Q12HR MARIAJOSE Administration Sodium Chloride 100 mls @ 999 mls/hr 11/14/18 11:33 Nacl 0.9% IV MARY PRN Hypotension Sodium Chloride 100 mls @ 999 mls/hr 11/17/18 09:54 Nacl 0.9% IV MARY PRN Hypotension Insulin Human Isoph/Insulin Regular 36 unit 11/16/18 22:00 11/17/18 09:45 Humulin 70/30 SUB-Q 36 unit BID MARIAJOSE Administration Insulin Human Regular 0 units 11/07/18 18:00 11/17/18 05:31 Humulin R SUB-Q Not Given Q6HR [facility] Protocol Lansoprazole 30 mg 11/09/18 10:00 11/17/18 09:44 Prevacid Solutab FEEDTUBE 30 mg BID MARIAJOSE Administration Levetiracetam 750 mg 11/18/18 10:00 Keppra PO BID MARIAJOSE Lorazepam 2 mg 11/12/18 08:31 11/15/18 14:25 Ativan IV 2 mg Q4H PRN Administration Agitation Metoprolol Tartrate 50 mg 11/14/18 10:00 11/17/18 09:45 Lopressor PO 50 mg Q6H MARIAJOSE Administration Modafinil 200 mg 11/17/18 10:00 11/17/18 09:44 Provigil PO 200 mg QAM MARIAJOSE Administration Multi-Ingred Cream/Lotion/Oil/Oint 1 applic 11/06/18 08:26 Artificial Tears Ophth Oint OU Q4HR PRN Dry Eye(s) Simple Syrup 15 ml 11/08/18 18:38 Simple Syrup FEEDTUBE PRN PRN Hypoglycemia Simple Syrup 30 ml 11/08/18 18:38 Simple Syrup FEEDTUBE PRN PRN Hypoglycemia Sodium Bicarbonate 325 mg 11/08/18 18:38 Sodium Bicarbonate FEEDTUBE PRN PRN For Clogged Feeding Tube Sodium Chloride 10 ml 11/06/18 22:00 11/16/18 21:35 Sodium Chloride Flush Syringe 10 Ml IV 10 ml BID MARAIJOSE Administration Sodium Chloride 10 ml 11/06/18 12:42 11/13/18 10:30 Sodium Chloride Flush Syringe 10 Ml IV 10 ml PRN PRN Administration LINE FLUSH Tamsulosin HCl 0.4 mg 11/10/18 13:00 11/17/18 09:44 Flomax PO 0.4 mg QDAY MARIAJOSE Administration
--- NOTE | 2018-11-17 10:38 | XRay Report ---
AP ABDOMEN: HISTORY: Dobbhoff placement. The feeding tube terminates in the fundus of the stomach. The abdominal gas pattern is unremarkable. No masses or organomegaly is identified and there is no gross evidence of free air or fluid. No significant soft tissue calcifications are noted. IMPRESSION: Unremarkable abdomen.
--- NOTE | 2018-11-17 10:44 | Progress Note ---
Assessment and Plan - Patient Problems (1) Respiratory failure Current Visit: Yes Status: Acute Qualifiers: Chronicity: acute Respiratory failure complication: hypoxia Qualified Code(s): J96.01 - Acute respiratory failure with hypoxia Plan to address problem: Pt stable. Patient appears to be an acceptable candidate for bedside percutaneous tracheostomy and PEG tube placement. Procedure, risks, benefits were discussed with mother. Written consent was obtained. Procedure scheduled for this at 1400. Please call with any questions Time=15min Subjective Date of service: 11/17/18 Patient Reports: Positive: other (no new events) Objective Vital Signs - 12hr 11/16/18 11/16/18 11/16/18 22:45 23:00 23:15 Temperature Pulse Rate 96 H 97 H Pulse Rate [ From Monitor] Respiratory 20 20 26 H Rate Respiratory Rate [ Generalized] Blood Pressure 152/88 153/76 152/83 O2 Sat by Pulse 100 100 99 Oximetry 11/16/18 11/16/18 11/16/18 23:30 23:35 23:36 Temperature Pulse Rate 96 H 96 H 96 H Pulse Rate [ 95 H From Monitor] Respiratory 20 20 20 Rate Respiratory Rate [ Generalized] Blood Pressure 146/78 146/78 O2 Sat by Pulse 100 100 100 Oximetry 11/16/18 11/16/18 11/16/18 23:43 23:45 23:46 Temperature 99.6 F Pulse Rate 94 H 94 H Pulse Rate [ From Monitor] Respiratory 20 20 Rate Respiratory Rate [ Generalized] Blood Pressure 135/68 146/78 O2 Sat by Pulse 100 100 Oximetry 11/17/18 11/17/18 11/17/18 00:00 00:01 00:15 Temperature Pulse Rate 95 H 94 H 93 H Pulse Rate [ From Monitor] Respiratory 20 20 20 Rate Respiratory Rate [ Generalized] Blood Pressure 150/85 150/85 131/70 O2 Sat by Pulse 100 100 100 Oximetry 11/17/18 11/17/18 11/17/18 00:30 00:45 01:00 Temperature Pulse Rate 94 H 94 H 95 H Pulse Rate [ From Monitor] Respiratory 20 20 20 Rate Respiratory Rate [ Generalized] Blood Pressure 142/78 139/75 140/73 O2 Sat by Pulse 100 100 100 Oximetry 11/17/18 11/17/18 11/17/18 01:15 01:30 01:45 Temperature Pulse Rate 95 H 106 H 98 H Pulse Rate [ From Monitor] Respiratory 20 21 20 Rate Respiratory Rate [ Generalized] Blood Pressure 135/70 135/70 125/74 O2 Sat by Pulse 100 100 100 Oximetry 11/17/18 11/17/18 11/17/18 02:00 02:15 02:31 Temperature Pulse Rate 102 H 97 H 100 H Pulse Rate [ 95 H From Monitor] Respiratory 21 20 20 Rate Respiratory 12 Rate [ Generalized] Blood Pressure 142/78 134/76 127/76 O2 Sat by Pulse 100 100 100 Oximetry 11/17/18 11/17/18 11/17/18 02:45 03:00 03:15 Temperature Pulse Rate 97 H 98 H 95 H Pulse Rate [ From Monitor] Respiratory 20 21 20 Rate Respiratory Rate [ Generalized] Blood Pressure 141/72 146/78 142/77 O2 Sat by Pulse 100 100 100 Oximetry 11/17/18 11/17/18 11/17/18 03:30 03:42 03:45 Temperature 98.3 F Pulse Rate 94 H 100 H Pulse Rate [ From Monitor] Respiratory 20 7 L Rate Respiratory Rate [ Generalized] Blood Pressure 143/74 140/74 O2 Sat by Pulse 100 99 Oximetry 11/17/18 11/17/18 11/17/18 04:00 04:15 04:30 Temperature Pulse Rate 103 H 102 H 98 H Pulse Rate [ 95 H From Monitor] Respiratory 20 16 20 Rate Respiratory Rate [ Generalized] Blood Pressure 140/56 148/79 148/73 O2 Sat by Pulse 100 100 100 Oximetry 11/17/18 11/17/18 11/17/18 04:45 05:00 05:15 Temperature Pulse Rate 97 H 97 H 102 H Pulse Rate [ From Monitor] Respiratory 20 20 20 Rate Respiratory Rate [ Generalized] Blood Pressure 151/77 135/70 140/74 O2 Sat by Pulse 100 100 100 Oximetry 11/17/18 11/17/18 11/17/18 05:30 05:33 05:40 Temperature Pulse Rate 101 H 103 H 102 H Pulse Rate [ 102 H From Monitor] Respiratory 20 20 Rate Respiratory Rate [ Generalized] Blood Pressure 138/71 133/53 O2 Sat by Pulse 100 100 Oximetry 11/17/18 11/17/18 11/17/18 05:45 06:00 06:15 Temperature Pulse Rate 101 H 100 H 97 H Pulse Rate [ From Monitor] Respiratory 20 20 20 Rate Respiratory Rate [ Generalized] Blood Pressure 140/72 138/71 137/75 O2 Sat by Pulse 100 100 100 Oximetry 11/17/18 11/17/18 11/17/18 06:30 06:45 07:00 Temperature Pulse Rate 102 H 97 H 98 H Pulse Rate [ From Monitor] Respiratory 17 20 20 Rate Respiratory Rate [ Generalized] Blood Pressure 145/77 145/81 140/79 O2 Sat by Pulse 100 100 99 Oximetry 11/17/18 11/17/18 11/17/18 07:15 07:30 07:45 Temperature Pulse Rate 100 H 97 H 99 H Pulse Rate [ From Monitor] Respiratory 19 20 20 Rate Respiratory Rate [ Generalized] Blood Pressure 140/79 149/72 143/77 O2 Sat by Pulse 100 100 99 Oximetry 11/17/18 11/17/18 11/17/18 08:00 08:15 08:21 Temperature Pulse Rate 98 H 99 H 99 H Pulse Rate [ From Monitor] Respiratory 20 20 Rate Respiratory Rate [ Generalized] Blood Pressure 150/85 155/88 155/88 O2 Sat by Pulse 100 100 100 Oximetry 11/17/18 11/17/18 11/17/18 08:30 08:45 09:00 Temperature Pulse Rate 97 H 100 H 100 H Pulse Rate [ From Monitor] Respiratory 20 20 20 Rate Respiratory Rate [ Generalized] Blood Pressure 148/87 157/92 169/92 O2 Sat by Pulse 100 100 100 Oximetry 11/17/18 09:45 Temperature Pulse Rate 100 H Pulse Rate [ From Monitor] Respiratory Rate Respiratory Rate [ Generalized] Blood Pressure 136/66 O2 Sat by Pulse Oximetry - General physical appearance no distress, no pain, other (minimally responsive to stimuli) - Neck no masses, no bruits, trachea midline, no lymphadectomy, no venous distension - Respiratory normal expansion, normal respiratory effort - Abdomen soft, not distended - Integumentary no rash, no growths, no abnormal pigmentation - Labs 11/17/18 04:45 11/17/18 04:45 Diabetes panel 11/17/18 Range/Units 04:45 Sodium 136 L (137-145) mmol/L Potassium 4.5 (3.6-5.0) mmol/L Chloride 94.4 L (98-107) mmol/L Carbon Dioxide 29 (22-30) mmol/L BUN 38 H (9-20) mg/dL Creatinine 6.8 H (0.8-1.5) mg/dL Glucose 95 (75-100) mg/dL Calcium 8.7 (8.4-10.2) mg/dL Calcium panel 11/17/18 Range/Units 04:45 Calcium 8.7 (8.4-10.2) mg/dL Pituitary panel 11/17/18 Range/Units 04:45 Sodium 136 L (137-145) mmol/L Potassium 4.5 (3.6-5.0) mmol/L Chloride 94.4 L (98-107) mmol/L Carbon Dioxide 29 (22-30) mmol/L BUN 38 H (9-20) mg/dL Creatinine 6.8 H (0.8-1.5) mg/dL Glucose 95 (75-100) mg/dL Calcium 8.7 (8.4-10.2) mg/dL Adrenal panel 11/17/18 Range/Units 04:45 Sodium 136 L (137-145) mmol/L Potassium 4.5 (3.6-5.0) mmol/L Chloride 94.4 L (98-107) mmol/L Carbon Dioxide 29 (22-30) mmol/L BUN 38 H (9-20) mg/dL Creatinine 6.8 H (0.8-1.5) mg/dL Glucose 95 (75-100) mg/dL Calcium 8.7 (8.4-10.2) mg/dL
--- NOTE | 2018-11-17 15:21 | Progress Note ---
Assessment and Plan --S/P Cardiopulmonary Arrest-unknown etiology ventilatory support, nebulizers --Anoxic Encephalopathy; neurology following, supportive care Poor prognosis, follow EEG --Acute Hypoxic Respiratory failure; on ventilatory support weaning parameters, wean as tolerated and extubate Possible trach and PEG if no improvement --Accelerated hypertension; controlled today continue current antihypertensives and when necessary medications --DKA-corrected; uncontrolled blood sugars Accu-Chek sliding scale coverage and ADA diet, 70/30 insulin, adjust the dose Dose as needed --Severe metabolic Acidosis; multifactorial closely monitor --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 Plan of care is reviewed with the patient's mother in detail Critical care time 33 minutes Disposition : Possible trach and peg, transfer to Hospice /[facility] /[facility] Brief History 42 YO Male with ESRD on HD, HTN, DM, PAD, Nicotine Dependence presents to ED for evaluation. As per family, the patient was in his usual state of health around bedtime at 2200hrs. Pt was found down and unresponsive by family the next morning. EMS notified, and upon arrival the patient was found to be in distress. Pt Intubated and placed on vent support. Pt transported to [facility]. Pt seen and evaluated in ED and found to have STEMI, Acute on Chronic Renal Failure, Acidosis, Acute Respiratory Failure, Sepsis, and DKA. Pt experienced cardiac arrest in ED and was treated IAW ACLS protocol with return of perfusing cardiac rhythm. Pt found to have signs of Anoxic Brain Injury. Pt admitted to ICU and initiated on sepsis protocol and treated with IVF resuscitation therapy, IV pressor support. Pt has poor prognosis. Neurology , Cardiology ,pulm and Nephrology are following,receiving HD per nephrology, Vent dependent with poor prognosis, planning Trach and PEG and placement. Disposition : Trach and PEG and placement Hospitalist Physical General appearance: Present: no acute distress, well-nourished, other (intubated on vent) - EENT Eyes: Present: PERRL - Neck Neck: Present: supple, normal ROM - Respiratory Respiratory effort: normal Respiratory: bilateral: diminished, rhonchi, negative: rales, wheezing - Cardiovascular Rhythm: regular Heart Sounds: Present: S1 & S2 - Extremities Extremities: no ischemia, No edema - Abdominal General gastrointestinal: soft, non-tender, non-distended, normal bowel sounds, hypoactive bowel sounds - Integumentary Integumentary: Present: clear, warm - Psychiatric Psychiatric: other (on vent) - Neurologic Neurologic: other (on vent) Subjective Date of service: 11/17/18 Principal diagnosis: Ac hypoxemic resp failure; DKA; Severe sepsis with shock; ESRD on dialysis Interval history: Patient seen and examined Remain intubated, tolerating tube feeding Plan for trach and PEG soon Objective - Constitutional Vitals: Vital Signs - 12hr 11/17/18 11/17/18 11/17/18 03:30 03:42 03:45 Temperature 98.3 F Pulse Rate 94 H 100 H Pulse Rate [ From Monitor] Respiratory 20 7 L Rate Blood Pressure 143/74 140/74 O2 Sat by Pulse 100 99 Oximetry 11/17/18 11/17/18 11/17/18 04:00 04:15 04:30 Temperature Pulse Rate 103 H 102 H 98 H Pulse Rate [ 95 H From Monitor] Respiratory 20 16 20 Rate Blood Pressure 140/56 148/79 148/73 O2 Sat by Pulse 100 100 100 Oximetry 11/17/18 11/17/18 11/17/18 04:45 05:00 05:15 Temperature Pulse Rate 97 H 97 H 102 H Pulse Rate [ From Monitor] Respiratory 20 20 20 Rate Blood Pressure 151/77 135/70 140/74 O2 Sat by Pulse 100 100 100 Oximetry 11/17/18 11/17/18 11/17/18 05:30 05:33 05:40 Temperature Pulse Rate 101 H 103 H 102 H Pulse Rate [ 102 H From Monitor] Respiratory 20 20 Rate Blood Pressure 138/71 133/53 O2 Sat by Pulse 100 100 Oximetry 11/17/18 11/17/18 11/17/18 05:45 06:00 06:15 Temperature Pulse Rate 101 H 100 H 97 H Pulse Rate [ From Monitor] Respiratory 20 20 20 Rate Blood Pressure 140/72 138/71 137/75 O2 Sat by Pulse 100 100 100 Oximetry 11/17/18 11/17/18 11/17/18 06:30 06:45 07:00 Temperature Pulse Rate 102 H 97 H 98 H Pulse Rate [ From Monitor] Respiratory 17 20 20 Rate Blood Pressure 145/77 145/81 140/79 O2 Sat by Pulse 100 100 99 Oximetry 11/17/18 11/17/18 11/17/18 07:15 07:30 07:45 Temperature Pulse Rate 100 H 97 H 99 H Pulse Rate [ From Monitor] Respiratory 19 20 20 Rate Blood Pressure 140/79 149/72 143/77 O2 Sat by Pulse 100 100 99 Oximetry 11/17/18 11/17/18 11/17/18 08:00 08:15 08:21 Temperature 97.6 F Pulse Rate 98 H 99 H 99 H Pulse Rate [ From Monitor] Respiratory 20 20 Rate Blood Pressure 150/85 155/88 155/88 O2 Sat by Pulse 100 100 100 Oximetry 11/17/18 11/17/18 11/17/18 08:30 08:45 09:00 Temperature Pulse Rate 97 H 100 H 100 H Pulse Rate [ From Monitor] Respiratory 20 20 20 Rate Blood Pressure 148/87 157/92 169/92 O2 Sat by Pulse 100 100 100 Oximetry 11/17/18 11/17/18 11/17/18 09:15 09:30 09:45 Temperature Pulse Rate 100 H 100 H 101 H Pulse Rate [ From Monitor] Respiratory 20 20 20 Rate Blood Pressure 153/73 157/89 156/83 O2 Sat by Pulse 100 100 100 Oximetry 11/17/18 11/17/18 11/17/18 10:00 10:15 10:30 Temperature Pulse Rate 102 H 103 H 99 H Pulse Rate [ From Monitor] Respiratory 15 20 20 Rate Blood Pressure 136/86 187/86 174/94 O2 Sat by Pulse 100 100 100 Oximetry 11/17/18 11/17/18 11/17/18 10:45 11:00 11:15 Temperature Pulse Rate 99 H 102 H 100 H Pulse Rate [ From Monitor] Respiratory 20 20 17 Rate Blood Pressure 171/96 163/86 169/92 O2 Sat by Pulse 100 100 100 Oximetry 11/17/18 11/17/18 11/17/18 11:30 11:45 12:00 Temperature 98.9 F Pulse Rate 89 86 Pulse Rate [ From Monitor] Respiratory Rate Blood Pressure 168/87 175/92 170/89 O2 Sat by Pulse 100 100 100 Oximetry 11/17/18 11/17/18 11/17/18 12:04 12:15 12:30 Temperature Pulse Rate 85 85 86 Pulse Rate [ From Monitor] Respiratory Rate Blood Pressure 176/98 176/98 165/89 O2 Sat by Pulse 100 100 100 Oximetry 11/17/18 11/17/18 11/17/18 12:45 13:00 13:03 Temperature Pulse Rate 85 85 86 Pulse Rate [ From Monitor] Respiratory Rate Blood Pressure 165/87 162/83 162/83 O2 Sat by Pulse 100 100 Oximetry 11/17/18 11/17/18 11/17/18 13:15 13:30 13:45 Temperature Pulse Rate 87 90 92 H Pulse Rate [ From Monitor] Respiratory Rate Blood Pressure 154/82 152/78 139/74 O2 Sat by Pulse 100 100 100 Oximetry 11/17/18 11/17/18 14:00 14:15 Temperature Pulse Rate 92 H 93 H Pulse Rate [ From Monitor] Respiratory Rate Blood Pressure 149/77 132/72 O2 Sat by Pulse 100 100 Oximetry - Labs CBC & Chem 7: 11/18/18 04:24 11/18/18 04:24 Labs: Abnormal lab results 11/16/18 11/16/18 11/17/18 Range/Units 17:11 21:27 00:08 RBC (3.65-5.03) M/mm3 Hgb (11.8-15.2) gm/dl Hct (35.5-45.6) % [place] % (Auto) (0.0-7.3) % [place] # (0.0-0.8) K/mm3 Seg Neutrophils % (40.0-70.0) % POC ABG pH (7.35-7.45) Sodium (137-145) mmol/L Chloride (98-107) mmol/L BUN (9-20) mg/dL Creatinine (0.8-1.5) mg/dL POC Glucose 173 H 206 H 151 H (70-105) Magnesium (1.7-2.3) mg/dL 11/17/18 11/17/18 11/17/18 Range/Units 04:45 04:45 05:12 RBC 2.58 L (3.65-5.03) M/mm3 Hgb 7.9 L (11.8-15.2) gm/dl Hct 23.5 L (35.5-45.6) % [place] % (Auto) 10.3 H (0.0-7.3) % [place] # 1.1 H (0.0-0.8) K/mm3 Seg Neutrophils % 74.8 H (40.0-70.0) % POC ABG pH 7.481 H (7.35-7.45) Sodium 136 L (137-145) mmol/L Chloride 94.4 L (98-107) mmol/L BUN 38 H (9-20) mg/dL Creatinine 6.8 H (0.8-1.5) mg/dL POC Glucose (70-105) Magnesium 2.40 H (1.7-2.3) mg/dL 11/17/18 11/17/18 Range/Units 05:31 12:10 RBC (3.65-5.03) M/mm3 Hgb (11.8-15.2) gm/dl Hct (35.5-45.6) % [place] % (Auto) (0.0-7.3) % [place] # (0.0-0.8) K/mm3 Seg Neutrophils % (40.0-70.0) % POC ABG pH (7.35-7.45) Sodium (137-145) mmol/L Chloride (98-107) mmol/L BUN (9-20) mg/dL Creatinine (0.8-1.5) mg/dL POC Glucose 111 H 174 H (70-105) Magnesium (1.7-2.3) mg/dL
[2018-11-18] MEDS: KEPPRA 750 MG in D5W 100 ML IV SCH (02:06)
[2018-11-18] MEDS: APRESOLINE PO SCH ×4 (02:06→21:43)
[2018-11-18] MEDS: LOPRESSOR PO SCH ×5 (02:06→21:43)
[2018-11-18] MEDS: PREVACID SOLUTAB FEEDTUBE SCH ×3 (02:07→21:44)
[2018-11-18] MEDS: HumuLIN R SUB-Q SCH ×4 (02:07→19:32)
[2018-11-18] MEDS: SODIUM CHLORIDE FLUSH SYRINGE 10 ML IV SCH ×3 (02:07→21:46)
[2018-11-18] MEDS: fentaNYL DRIP Premix 2,000 MCG/100 ML BAG IV SCH (04:45)
[2018-11-18 04:56] LABS: Basophils # (Auto) 0.1 K/mm3 (0.0-0.1); Basophils % (Auto) 0.6 % (0.0-1.8); Eosinophils % (Auto) 0.3 % (0.0-4.3); Hemoglobin 8.2 gm/dl (11.8-15.2); Lymphocytes # (Auto) 1.6 K/mm3 (1.2-5.4); Lymphocytes % (Auto) 14.5 % (13.4-35.0); Mean Corpuscular HGB Conc 34 % (32-34); Mean Corpuscular Volume 90 fl (84-94); Monocytes # (Auto) 1.4 K/mm3 (0.0-0.8); Monocytes % (Auto) 12.7 % (0.0-7.3); Platelet Count 448 K/mm3 (140-440); Red Blood Count 2.66 M/mm3 (3.65-5.03)
[2018-11-18 05:32] LABS: Calcium 8.6 mg/dL (8.4-10.2)
[2018-11-18] MEDS: THORAZINE PO PRN (07:58)
[2018-11-18] MEDS: KEPPRA PO SCH ×2 (09:13→21:42)
[2018-11-18] MEDS: PROVIGIL PO SCH (09:15)
[2018-11-18] MEDS: FLOMAX PO SCH (09:17)
--- NOTE | 2018-11-18 11:06 | Progress Note ---
Assessment and Plan Currently stable cardiac status. VSS. Continue supportive measures. Can consider addition of ACEI/ARB in setting of CMP if BPs permit and if okay with nephrology, cont BB. Can consider ischemic evaluation if/when medically stabilized and if neuro status improves. Nothing further to add from cardiac perspective at this time. Will follow on as needed basis. The patient has been seen in conjunction with Dr. Allen who agrees with the assessment and plan of care. - Patient Problems (1) Cardiopulmonary arrest Current Visit: Yes Status: Acute (2) Cardiomyopathy Current Visit: Yes Status: Acute (3) DKA (diabetic ketoacidoses) Current Visit: Yes Status: Acute Qualifiers: Diabetes mellitus type: type 2 Diabetes mellitus complication detail: with coma Qualified Code(s): E11.11 - Type 2 diabetes mellitus with ketoacidosis with coma (4) Metabolic acidosis Current Visit: Yes Status: Acute (5) Anoxic brain injury Current Visit: Yes Status: Suspected (6) ESRD (end stage renal disease) on dialysis Current Visit: Yes Status: Chronic (7) Anemia Current Visit: Yes Status: Acute (8) Thrombocytopenia Current Visit: Yes Status: Acute (9) PAD (peripheral artery disease) Current Visit: Yes Status: Chronic (10) History of seizures Current Visit: Yes Status: Chronic (11) Tobacco use Current Visit: Yes Status: Chronic Subjective Date of service: 11/18/18 Principal diagnosis: Ac hypoxemic resp failure; DKA; Severe sepsis with shock; ESRD on dialysis Interval history: pt remains intubated, nonresponsive. in SR on tele. Objective Last Vital Signs Temp 100.0 F H 11/18/18 08:46 Pulse 100 H 11/18/18 09:15 Resp 20 11/17/18 18:30 BP 141/78 11/18/18 09:15 Pulse Ox 100 11/18/18 08:00 - Physical Examination General: Other (intubated, unresponsive) HEENT: Positive: Normocephaly, Mucus Membranes Moist Neck: Positive: neck supple, trachea midline Cardiac: Positive: Reg Rate and Rhythm, S1/S2 Lungs: Positive: Ventilated Respirations Neuro: Positive: Other (Unresponsive) Abdomen: Positive: Soft, Active Bowel Sounds Skin: Positive: Clear Musculoskeletal: other (No purposeful movement.) Extremities: Present: normal, Cool. Absent: edema - Labs and Meds CBC 11/18/18 Range/Units 04:24 WBC 10.7 (4.5-11.0) K/mm3 RBC 2.66 L (3.65-5.03) M/mm3 Hgb 8.2 L (11.8-15.2) gm/dl Hct 24.0 L (35.5-45.6) % Plt Count 448 H (140-440) K/mm3 Lymph # 1.6 (1.2-5.4) K/mm3 [place] # 1.4 H (0.0-0.8) K/mm3 Eos # 0.0 (0.0-0.4) K/mm3 Baso # 0.1 (0.0-0.1) K/mm3 Comprehensive Metabolic Panel 11/18/18 Range/Units 04:24 Sodium 136 L (137-145) mmol/L Potassium 4.5 (3.6-5.0) mmol/L Chloride 93.1 L (98-107) mmol/L Carbon Dioxide 28 (22-30) mmol/L BUN 30 H (9-20) mg/dL Creatinine 5.9 H (0.8-1.5) mg/dL Glucose 211 H (75-100) mg/dL Calcium 8.6 (8.4-10.2) mg/dL - Imaging and Cardiology EKG: image reviewed Echo: report reviewed (EF 30-35%, mild MR and TR. ) - EKG Sinus rhythms and dysrhythmias: sinus arrest or pause Ventricular dysrhythmias: idioventricular escape rh AV and intraventricular conduction: intraventricular conducti Repolarization changes or abnormalities: Suggestive of hyperkalemia (wide QRS complexes and ST depression evaluation probably all due to severe hyperkalemia. The last EKG does not show any ST elevation but continues to show peaked T waves.) - Allied health notes Allied health notes reviewed: nursing
[2018-11-18] MEDS: TYLENOL FEEDTUBE PRN (11:54)
--- NOTE | 2018-11-18 13:43 | Progress Note ---
Assessment and Plan Acute Kidney Injury secondary to ischemic ATN from hypotension, cardiac arrest, in setting of underlying CKD stage 4, dialysis dependent: Severe Renal Failure, requiring hemodialysis initiation: - Renal function reviewed, SCr level is 5.9 today, yesterday was 6.8. GFR 13 ml/min. - S/P hemodialysis yesterday. Will likely need HD tomorrow. Place on T,T,S schedule for now. - Anemia of CKD-Start Epogen 20,000 unit with HD - Strict monitoring of I/O's - Renally dose medications - Avoid Nephrotoxic agents - Obtain daily weights - [place] Catheter: Yes - Monitor BMP daily S/p Cardiopulmonary arrest. STEMI: -S/P CPR and ACLS protocol -Now off pressor support -Cardiology on board S/P Diabetic Ketoacidosis: Diabetes Mellitus: - S/P insulin drip - On SQ insulin - As per primary team Acute Encephalopathy History of Seizure: -S/P IV Keppra, now on po Keppra -As per Neurology Subjective Date of service: 11/18/18 Principal diagnosis: Ac hypoxemic resp failure; DKA; Severe sepsis with shock; ESRD on dialysis Interval history: Patient seen lying in bed, remains intubated and unresponsive. No family at bedside. Objective - Vital Signs Vital signs: Vital Signs - 12hr 11/18/18 11/18/18 11/18/18 02:00 02:30 03:00 Temperature 99.8 F H Pulse Rate 96 H 95 H 96 H Pulse Rate [ From Monitor] Respiratory Rate Blood Pressure 135/76 131/73 134/76 O2 Sat by Pulse 100 100 100 Oximetry 11/18/18 11/18/18 11/18/18 03:30 04:00 04:30 Temperature 99.7 F H Pulse Rate 100 H 95 H 92 H Pulse Rate [ 95 H From Monitor] Respiratory Rate Blood Pressure 141/65 133/75 138/76 O2 Sat by Pulse 100 100 100 Oximetry 11/18/18 11/18/18 11/18/18 04:42 04:47 05:00 Temperature Pulse Rate 98 H 95 H 99 H Pulse Rate [ From Monitor] Respiratory Rate Blood Pressure 138/76 149/80 146/79 O2 Sat by Pulse 100 100 Oximetry 11/18/18 11/18/18 11/18/18 05:03 05:30 06:00 Temperature Pulse Rate 100 H 96 H 88 Pulse Rate [ From Monitor] Respiratory Rate Blood Pressure 146/79 153/82 143/76 O2 Sat by Pulse 100 100 Oximetry 11/18/18 11/18/18 11/18/18 06:30 07:00 07:30 Temperature Pulse Rate 92 H 93 H 94 H Pulse Rate [ From Monitor] Respiratory Rate Blood Pressure 151/77 149/69 144/76 O2 Sat by Pulse 100 100 100 Oximetry 11/18/18 11/18/18 11/18/18 08:00 08:30 08:32 Temperature 100.0 F H Pulse Rate 95 H 100 H 100 H Pulse Rate [ 93 H From Monitor] Respiratory 20 Rate Blood Pressure 134/78 129/78 O2 Sat by Pulse 100 100 Oximetry 11/18/18 11/18/18 11/18/18 08:46 09:01 09:15 Temperature 100.0 F H Pulse Rate 97 H 100 H Pulse Rate [ From Monitor] Respiratory Rate Blood Pressure 117/78 141/78 O2 Sat by Pulse 100 Oximetry 11/18/18 11/18/18 11/18/18 09:30 10:00 10:30 Temperature Pulse Rate 99 H 89 93 H Pulse Rate [ From Monitor] Respiratory Rate Blood Pressure 154/76 162/84 158/88 O2 Sat by Pulse 100 100 100 Oximetry 11/18/18 11/18/18 11/18/18 11:00 11:50 12:00 Temperature 100.8 F H Pulse Rate 90 92 H Pulse Rate [ From Monitor] Respiratory 18 Rate Blood Pressure 145/84 129/79 O2 Sat by Pulse 100 100 Oximetry - General Appearance General appearance: sedated on ventilator, intubated EENT: ATNC Neck: no JVD, supple Respiratory: Present: Decreased Breath Sounds Cardiology: S1S2 Gastrointestinal: normoactive bowel sounds Integumentary: warm and dry Neurologic: other (Sedated and intubated) Musculoskeletal: other (mild edema) - Lab 11/18/18 04:24 11/18/18 04:24 Most recent lab results Calcium 8.6 mg/dL (8.4-10.2) 11/18/18 04:24 Phosphorus 3.50 mg/dL (2.5-4.5) 11/12/18 04:44 Magnesium 2.40 mg/dL (1.7-2.3) H 11/17/18 04:45 Medications & Allergies - Medications Allergies/Adverse Reactions: Allergies No Known Allergies Allergy (Verified 03/17/18 11:54) Home Medications: Home Medications Medication Instructions Recorded Confirmed Last Taken Type Esomeprazole Magnesium [NexIUM] 20 mg PO QDAY #30 suspdr.pkt 03/17/18 11/07/18 Unknown Rx HYDROcodone/APAP 5-325 [[place] 1 each PO Q6HR PRN #15 tablet 03/17/18 11/07/18 Unknown Rx 5/325] Metoclopramide [Reglan] 10 mg PO TID #21 tab 03/17/18 11/07/18 Unknown Rx Ondansetron [Zofran Odt] 4 mg PO Q4HR PRN #20 tab.rapdis 03/17/18 11/07/18 Unknown Rx Active Medications: Generic Name Dose Route Start Last Admin Trade Name Freq PRN Reason Stop Dose Admin Acetaminophen 650 mg 11/06/18 22:22 11/18/18 11:54 Tylenol FEEDTUBE 650 mg Q6H PRN Administration Fever >101 Lipase/Protease/Amylase 1 each 11/08/18 18:[address] 10,500 Unit FEEDTUBE PRN PRN For Clogged Feeding Tube Chlorpromazine HCl 10 mg 11/07/18 08:07 11/18/18 07:58 Thorazine PO 10 mg Q6H PRN Administration Hiccups Clonazepam 0.5 mg 11/12/18 16:49 11/13/18 23:10 Klonopin PO 0.5 mg Q12H PRN Administration myoclonic jerks Dextrose 50 ml 11/07/18 16:46 11/10/18 23:43 D50w (25gm) Syringe IV 50 ml PRN PRN Administration Hypoglycemia Fentanyl 50 mcg 11/06/18 08:37 Sublimaze IV Q10MIN PRN ANALGESIA Hydralazine HCl 10 mg 11/08/18 00:56 11/14/18 08:34 Apresoline IV 10 mg Q4H PRN Administration Hypertension Hydralazine HCl 50 mg 11/14/18 09:16 11/18/18 05:03 Apresoline PO 50 mg Q8HR MARIAJOSE Administration Hydrophilic Ointment 1 applic 11/06/18 08:26 11/10/18 19:52 Vaseline Lip Therapy TP 1 applic Q2HR PRN Administration Dry Lips Fentanyl Citrate 2,000 mcg in 100 mls @ 4.309 mls/hr 11/06/18 10:00 11/18/18 04:45 Fentanyl Drip Premix IV 0.5 mcg/kg/hr TITR MARIAJOSE 2.155 mls/hr Administration Protocol 1 MCG/KG/HR Sodium Chloride 100 mls @ 999 mls/hr 11/14/18 11:33 Nacl 0.9% IV MARY PRN Hypotension Insulin Human Isoph/Insulin Regular 36 unit 11/16/18 22:00 11/18/18 09:13 Humulin 70/30 SUB-Q 36 unit BID MARIAJOSE Administration Insulin Human Regular 0 units 11/07/18 18:00 11/18/18 11:53 Humulin R SUB-Q 3 units Q6HR MARIAJOSE Administration Protocol Lansoprazole 30 mg 11/09/18 10:00 11/18/18 09:15 Prevacid Solutab FEEDTUBE 30 mg BID MARIAJOSE Administration Levetiracetam 750 mg 11/18/18 10:00 11/18/18 09:13 Keppra PO 750 mg BID MARIAJOSE Administration Lorazepam 2 mg 11/12/18 08:31 11/15/18 14:25 Ativan IV 2 mg Q4H PRN Administration Agitation Metoprolol Tartrate 50 mg 11/14/18 10:00 11/18/18 09:15 Lopressor PO 50 mg Q6H MARIAJOSE Administration Modafinil 200 mg 11/17/18 10:00 11/18/18 09:15 Provigil PO 200 mg QAM MARIAJOSE Administration Multi-Ingred Cream/Lotion/Oil/Oint 1 applic 11/06/18 08:26 Artificial Tears Ophth Oint OU Q4HR PRN Dry Eye(s) Simple Syrup 15 ml 11/08/18 18:38 Simple Syrup FEEDTUBE PRN PRN Hypoglycemia Simple Syrup 30 ml 11/08/18 18:38 Simple Syrup FEEDTUBE PRN PRN Hypoglycemia Sodium Bicarbonate 325 mg 11/08/18 18:38 Sodium Bicarbonate FEEDTUBE PRN PRN For Clogged Feeding Tube Sodium Chloride 10 ml 11/06/18 22:00 11/18/18 09:26 Sodium Chloride Flush Syringe 10 Ml IV 10 ml BID MARIAJOSE Administration Sodium Chloride 10 ml 11/06/18 12:42 11/13/18 10:30 Sodium Chloride Flush Syringe 10 Ml IV 10 ml PRN PRN Administration LINE FLUSH Tamsulosin HCl 0.4 mg 11/10/18 13:00 11/18/18 09:17 Flomax PO 0.4 mg QDAY MARIAJOSE Administration
[2018-11-18 14:04] LABS: Bacteria,Urine 3+ /HPF (Negative); Bilirubin,Urine NEG (Negative); Blood,Urine MOD (Negative); Color,Urine Yellow (Yellow); Mucus,Urine 1+ /HPF; Urobilinogen,Urine < 2.0 mg/dL (<2.0)
[2018-11-18 14:10] LABS: Protein,Urine >500 mg/dL (Negative); WBC,Urine > 182.0 /HPF (0.0-6.0)
--- NOTE | 2018-11-18 17:14 | Progress Note ---
Assessment and Plan /S/P Cardiopulmonary Arrest- Possibly from renal failure with severe DKA and underlying CHF 2d echo showed Ef 30-35% cont ventilatory support, nebulizers, monitor ins/os /Anoxic Encephalopathy; from cardiac arrest neurology following, supportive care Poor prognosis, follow EEG /-Acute Hypoxic Respiratory failure; on ventilatory support cont weaning parameters, failed to extubate Possible trach and PEG tomorrow /-Accelerated hypertension; better controlled now, cont to monitor / DKA-corrected; uncontrolled blood sugars, a1c 10.1 Accu-Chek sliding scale coverage and ADA diet, on 70/30 insulin, adjust the dose Dose as needed /-Severe metabolic Acidosis; from /-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 closely monitor platelets /-Seizure Disorder; seizure precautions cont Antiepileptic medications, neurology following, EEG findings noted /-Acute Kidney Injury secondary to ischemic ATN from hypotension, Hemodialysis per schedule nephrology following /-Cardiogenic Shock; improved /-Anemia of chronic disease; monitor H&H and transfuse as needed /-Severe malnutrition/nutritional supplements, nutrition consult; /-PAD; no statin for abnormal liver function /-Shock Liver; with transaminitis, trending down, cont to monitor, supportive care /CHF with EF 30-35% - monitor volume status, cardiology following --DVT prophylaxis; SCDs --Full CODE STATUS Very poor prognosis. Plan of care is reviewed with the patient's mother in detail Critical care time 33 minutes Disposition : Possible trach and peg, will need placement Brief History 42 YO Male with ESRD on HD, HTN, DM, PAD, Nicotine Dependence presents to ED for evaluation. As per family, the patient was in his usual state of health around bedtime at 2200hrs. Pt was found down and unresponsive by family the next morning. EMS notified, and upon arrival the patient was found to be in distress. Pt Intubated and placed on vent support. Pt transported to [facility]. Pt seen and evaluated in ED and found to have STEMI, Acute on Chronic Renal Failure, Acidosis, Acute Respiratory Failure, Sepsis, and DKA. Pt experienced cardiac arrest in ED and was treated IAW ACLS protocol with return of perfusing cardiac rhythm. Pt found to have signs of Anoxic Brain Injury. Pt admitted to ICU and initiated on sepsis protocol and treated with IVF resuscitation therapy, IV pressor support. Pt has poor prognosis. Neurology , Cardiology ,pulm and Nephrology are following,receiving HD per nephrology, Vent dependent with poor prognosis, planning Trach and PEG and placement. Hospitalist Physical General appearance: Present: no acute distress, well-nourished, other (intubated on vent) - EENT Eyes: Present: PERRL - Neck Neck: Present: supple, normal ROM - Respiratory Respiratory effort: normal Respiratory: bilateral: diminished, rhonchi, negative: rales, wheezing - Cardiovascular Rhythm: regular Heart Sounds: Present: S1 & S2 - Extremities Extremities: no ischemia, No edema - Abdominal General gastrointestinal: soft, non-tender, non-distended, normal bowel sounds, hypoactive bowel sounds - Integumentary Integumentary: Present: clear, warm - Psychiatric Psychiatric: other (on vent) - Neurologic Neurologic: other (on vent) Subjective Date of service: 11/18/18 Principal diagnosis: Ac hypoxemic resp failure; DKA; Severe sepsis with shock; ESRD on dialysis Interval history: Patient seen and examined Remain intubated, tolerating tube feeding Plan for trach and PEG tomorrow Objective - Constitutional Vitals: Vital Signs - 12hr 11/18/18 11/18/18 11/18/18 05:30 06:00 06:30 Temperature Pulse Rate 96 H 88 92 H Pulse Rate [ From Monitor] Respiratory Rate Blood Pressure 153/82 143/76 151/77 O2 Sat by Pulse 100 100 100 Oximetry 11/18/18 11/18/18 11/18/18 07:00 07:30 08:00 Temperature 100.0 F H Pulse Rate 93 H 94 H 95 H Pulse Rate [ 93 H From Monitor] Respiratory 20 Rate Blood Pressure 149/69 144/76 134/78 O2 Sat by Pulse 100 100 100 Oximetry 11/18/18 11/18/18 11/18/18 08:30 08:32 08:46 Temperature 100.0 F H Pulse Rate 100 H 100 H Pulse Rate [ From Monitor] Respiratory Rate Blood Pressure 129/78 O2 Sat by Pulse 100 Oximetry 11/18/18 11/18/18 11/18/18 09:01 09:15 09:30 Temperature Pulse Rate 97 H 100 H 99 H Pulse Rate [ From Monitor] Respiratory Rate Blood Pressure 117/78 141/78 154/76 O2 Sat by Pulse 100 100 Oximetry 11/18/18 11/18/18 11/18/18 10:00 10:30 11:00 Temperature Pulse Rate 89 93 H 90 Pulse Rate [ From Monitor] Respiratory Rate Blood Pressure 162/84 158/88 145/84 O2 Sat by Pulse 100 100 100 Oximetry 11/18/18 11/18/18 11/18/18 11:30 11:50 12:00 Temperature 100.8 F H Pulse Rate 91 H 92 H 96 H Pulse Rate [ 96 H From Monitor] Respiratory 18 Rate Blood Pressure 161/90 129/79 146/85 O2 Sat by Pulse 100 100 100 Oximetry 11/18/18 11/18/18 11/18/18 12:30 13:00 13:30 Temperature Pulse Rate 93 H 99 H 92 H Pulse Rate [ From Monitor] Respiratory Rate Blood Pressure 125/77 123/67 113/71 O2 Sat by Pulse 100 100 100 Oximetry 11/18/18 11/18/18 11/18/18 14:00 14:30 15:00 Temperature Pulse Rate 89 90 93 H Pulse Rate [ From Monitor] Respiratory Rate Blood Pressure 130/74 126/75 140/79 O2 Sat by Pulse 100 100 100 Oximetry 11/18/18 11/18/18 11/18/18 15:29 15:30 16:00 Temperature 99.1 F Pulse Rate 91 H 92 H 92 H Pulse Rate [ 92 H From Monitor] Respiratory 16 Rate Blood Pressure 136/73 136/73 144/80 O2 Sat by Pulse 100 100 100 Oximetry 11/18/18 11/18/18 11/18/18 16:30 16:43 17:00 Temperature Pulse Rate 100 H 99 H 97 H Pulse Rate [ From Monitor] Respiratory Rate Blood Pressure 156/85 156/85 149/88 O2 Sat by Pulse 98 99 Oximetry - Labs CBC & Chem 7: 11/18/18 04:24 11/19/18 04:24 Labs: Abnormal lab results 11/17/18 11/18/18 11/18/18 Range/Units 23:23 04:24 04:24 RBC 2.66 L (3.65-5.03) M/mm3 Hgb 8.2 L (11.8-15.2) gm/dl Hct 24.0 L (35.5-45.6) % Plt Count 448 H (140-440) K/mm3 Brule % (Auto) 12.7 H (0.0-7.3) % Brule # 1.4 H (0.0-0.8) K/mm3 Seg Neutrophils % 71.9 H (40.0-70.0) % Sodium 136 L (137-145) mmol/L Chloride 93.1 L (98-107) mmol/L BUN 30 H (9-20) mg/dL Creatinine 5.9 H (0.8-1.5) mg/dL Glucose 211 H (75-100) mg/dL POC Glucose 243 H (70-105) Urine WBC (Auto) (0.0-6.0) /HPF 11/18/18 11/18/18 11/18/18 Range/Units 05:26 11:48 12:01 RBC (3.65-5.03) M/mm3 Hgb (11.8-15.2) gm/dl Hct (35.5-45.6) % Plt Count (140-440) K/mm3 Brule % (Auto) (0.0-7.3) % Brule # (0.0-0.8) K/mm3 Seg Neutrophils % (40.0-70.0) % Sodium (137-145) mmol/L Chloride (98-107) mmol/L BUN (9-20) mg/dL Creatinine (0.8-1.5) mg/dL Glucose (75-100) mg/dL POC Glucose 205 H 162 H (70-105) Urine WBC (Auto) > 182.0 H (0.0-6.0) /HPF
--- NOTE | 2018-11-18 17:39 | Progress Note ---
Assessment and Plan - Patient Problems (1) Respiratory failure Current Visit: Yes Status: Acute Qualifiers: Chronicity: acute Respiratory failure complication: hypoxia Qualified Code(s): J96.01 - Acute respiratory failure with hypoxia Plan to address problem: Pt stable. Patient appears to be an acceptable candidate for bedside percutaneous tracheostomy and PEG tube placement. Procedure scheduled for this at 1400. Please call with any questions Time=10min Subjective Date of service: 11/18/18 Patient Reports: Positive: other (no new issues) Objective Vital Signs - 12hr 11/18/18 11/18/18 11/18/18 06:00 06:30 07:00 Temperature Pulse Rate 88 92 H 93 H Pulse Rate [ From Monitor] Respiratory Rate Blood Pressure 143/76 151/77 149/69 O2 Sat by Pulse 100 100 100 Oximetry 11/18/18 11/18/18 11/18/18 07:30 08:00 08:30 Temperature 100.0 F H Pulse Rate 94 H 95 H 100 H Pulse Rate [ 93 H From Monitor] Respiratory 20 Rate Blood Pressure 144/76 134/78 129/78 O2 Sat by Pulse 100 100 100 Oximetry 11/18/18 11/18/18 11/18/18 08:32 08:46 09:01 Temperature 100.0 F H Pulse Rate 100 H 97 H Pulse Rate [ From Monitor] Respiratory Rate Blood Pressure 117/78 O2 Sat by Pulse 100 Oximetry 11/18/18 11/18/18 11/18/18 09:15 09:30 10:00 Temperature Pulse Rate 100 H 99 H 89 Pulse Rate [ From Monitor] Respiratory Rate Blood Pressure 141/78 154/76 162/84 O2 Sat by Pulse 100 100 Oximetry 11/18/18 11/18/18 11/18/18 10:30 11:00 11:30 Temperature Pulse Rate 93 H 90 91 H Pulse Rate [ From Monitor] Respiratory Rate Blood Pressure 158/88 145/84 161/90 O2 Sat by Pulse 100 100 100 Oximetry 11/18/18 11/18/18 11/18/18 11:50 12:00 12:30 Temperature 100.8 F H Pulse Rate 92 H 96 H 93 H Pulse Rate [ 96 H From Monitor] Respiratory 18 Rate Blood Pressure 129/79 146/85 125/77 O2 Sat by Pulse 100 100 100 Oximetry 11/18/18 11/18/18 11/18/18 13:00 13:30 14:00 Temperature Pulse Rate 99 H 92 H 89 Pulse Rate [ From Monitor] Respiratory Rate Blood Pressure 123/67 113/71 130/74 O2 Sat by Pulse 100 100 100 Oximetry 11/18/18 11/18/18 11/18/18 14:30 15:00 15:29 Temperature Pulse Rate 90 93 H 91 H Pulse Rate [ From Monitor] Respiratory 16 Rate Blood Pressure 126/75 140/79 136/73 O2 Sat by Pulse 100 100 100 Oximetry 11/18/18 11/18/18 11/18/18 15:30 16:00 16:30 Temperature 99.1 F Pulse Rate 92 H 92 H 100 H Pulse Rate [ 92 H From Monitor] Respiratory Rate Blood Pressure 136/73 144/80 156/85 O2 Sat by Pulse 100 100 98 Oximetry 11/18/18 11/18/18 16:43 17:00 Temperature Pulse Rate 99 H 97 H Pulse Rate [ From Monitor] Respiratory Rate Blood Pressure 156/85 149/88 O2 Sat by Pulse 99 Oximetry - General physical appearance no distress, no pain, other (not interactive) - ENT other (ETT in place) - Respiratory normal expansion, normal respiratory effort - Abdomen soft, not distended - Labs 11/18/18 04:24 11/18/18 04:24 Diabetes panel 11/18/18 Range/Units 04:24 Sodium 136 L (137-145) mmol/L Potassium 4.5 (3.6-5.0) mmol/L Chloride 93.1 L (98-107) mmol/L Carbon Dioxide 28 (22-30) mmol/L BUN 30 H (9-20) mg/dL Creatinine 5.9 H (0.8-1.5) mg/dL Glucose 211 H (75-100) mg/dL Calcium 8.6 (8.4-10.2) mg/dL Calcium panel 11/18/18 Range/Units 04:24 Calcium 8.6 (8.4-10.2) mg/dL Pituitary panel 11/18/18 Range/Units 04:24 Sodium 136 L (137-145) mmol/L Potassium 4.5 (3.6-5.0) mmol/L Chloride 93.1 L (98-107) mmol/L Carbon Dioxide 28 (22-30) mmol/L BUN 30 H (9-20) mg/dL Creatinine 5.9 H (0.8-1.5) mg/dL Glucose 211 H (75-100) mg/dL Calcium 8.6 (8.4-10.2) mg/dL Adrenal panel 11/18/18 Range/Units 04:24 Sodium 136 L (137-145) mmol/L Potassium 4.5 (3.6-5.0) mmol/L Chloride 93.1 L (98-107) mmol/L Carbon Dioxide 28 (22-30) mmol/L BUN 30 H (9-20) mg/dL Creatinine 5.9 H (0.8-1.5) mg/dL Glucose 211 H (75-100) mg/dL Calcium 8.6 (8.4-10.2) mg/dL
[2018-11-19] MEDS: LOPRESSOR PO SCH ×4 (02:53→21:23)
[2018-11-19 05:35] LABS: Calcium 9.5 mg/dL (8.4-10.2)
[2018-11-19] MEDS: HumuLIN R SUB-Q SCH ×4 (06:27→17:27)
[2018-11-19] MEDS: APRESOLINE PO SCH ×3 (06:54→21:23)
--- NOTE | 2018-11-19 06:55 | Progress Note ---
Assessment and Plan Acute hypoxemic respiratory failure, on mechanical ventilator support. Diabetic ketoacidosis. Severe metabolic acidosis. Severe sepsis with shock. Acute encephalopathy that appears to be toxic metabolic. End-stage renal disease, on dialysis. Hyperkalemia at presentation. Anemia that is macrocytic. Elevated serum transaminases, likely representing shock liver. Hypernatremia, improved Lactic acidosis. - continue daily SAT's and SBT as tolerated -goal blood glucose of 140-180 mg/dL - sedation target for RASS 0 to -1 , on fentanyl at 0.5mcg - continue to wean supplemental oxygen to keep O2 sats > 90% - continue empiric AB's for now (de-escalate based on clinical and radiological data) - continue bronchodilators with pulmonary hygiene per RT - Lung protective strategies - VAP bundle addressed - continue HD/UF as tolerated for toxin and volume clearance - continue to adjust all medications for CrCL - continue enteral nutrition as tolerated - continue accuchecks with glycemic control per SSI for target glucose of 140- 180 mg/dL - Mobility protocol for pressure ulcer prevention - continue stress ulcer prophylaxis - Influenza and pneumonia vaccination per protocol For tracheostomy and PEG placement, tomorrow PROGNOSIS: GUARDED CONDITION: CRITICAL CODE STATUS: FULL CODE The high probability of a clinically significant, sudden or life-threatening deterioration of the [respiratory, neurology, renal, endocrine] system(s) required my full and direct attention, intervention and personal management. The aggregate critical care time was [31] minutes without overlap. Time includes spent on; [x] Data Review and interpretation [x] Patient assessment and monitoring of vital signs [x] Documentation [x] Medication orders and management Discussed care extensively with his mother. Answered all her questions. Subjective Date of service: 11/18/18 Principal diagnosis: Ac hypoxemic resp failure; DKA; Severe sepsis with shock; ESRD on dialysis Interval history: Patient is seen today for: Acute hypoxemic respiratory failure on MVS; DKA; Severe metabolic acidosis; Severe sepsis with shock; Acute encephalopathy that appears to be toxic metabolic; ESRD on dialysis; DM II; Peripheral vascular disease. Seen and examined at bedside; 24hour events reviewed; nursing and respiratory care staff consulted; no adverse overnight events reported to me; remains on MVS; AMS is persistent; still with encephalopathy, appears to posture with minimal stimulation; no fevers, no vomiting Mother at the bed side. Currently on PSV 20/6, tidal volumes of 1200. Spontaneous eye opening. NO documented fevers in the last 24 hours. Acceptable blood pressure Objective Vital Signs - 12hr 11/18/18 11/18/18 11/18/18 19:00 19:30 19:46 Temperature Pulse Rate 92 H 87 92 H Pulse Rate [ From Monitor] Respiratory Rate Blood Pressure 162/97 132/83 159/95 O2 Sat by Pulse 100 100 99 Oximetry 11/18/18 11/18/18 11/18/18 20:00 20:30 21:00 Temperature 100.0 F H Pulse Rate 100 H 96 H 93 H Pulse Rate [ 94 H From Monitor] Respiratory 22 15 20 Rate Blood Pressure 167/93 131/79 138/83 O2 Sat by Pulse 100 100 100 Oximetry 11/18/18 11/18/18 11/18/18 21:30 21:43 22:00 Temperature Pulse Rate 92 H 98 H 95 H Pulse Rate [ From Monitor] Respiratory 20 20 Rate Blood Pressure 155/89 155/89 149/90 O2 Sat by Pulse 100 100 Oximetry 11/18/18 11/18/18 11/18/18 22:30 23:00 23:15 Temperature Pulse Rate 87 93 H 98 H Pulse Rate [ From Monitor] Respiratory 20 20 20 Rate Blood Pressure 141/81 143/73 143/73 O2 Sat by Pulse 100 99 100 Oximetry 11/18/18 11/19/18 11/19/18 23:30 00:00 00:30 Temperature 99.8 F H Pulse Rate 89 93 H 99 H Pulse Rate [ 94 H From Monitor] Respiratory 20 20 20 Rate Blood Pressure 129/75 154/86 151/81 O2 Sat by Pulse 100 99 100 Oximetry 11/19/18 11/19/18 11/19/18 01:00 01:30 02:00 Temperature Pulse Rate 96 H 95 H 97 H Pulse Rate [ From Monitor] Respiratory 20 20 20 Rate Blood Pressure 145/74 145/78 159/88 O2 Sat by Pulse 99 100 100 Oximetry 11/19/18 11/19/18 11/19/18 02:30 03:00 03:30 Temperature Pulse Rate 101 H 101 H 96 H Pulse Rate [ From Monitor] Respiratory 19 20 20 Rate Blood Pressure 158/79 165/91 146/78 O2 Sat by Pulse 100 100 100 Oximetry 11/19/18 11/19/18 11/19/18 03:37 03:57 04:00 Temperature 100.5 F H Pulse Rate 97 H 102 H Pulse Rate [ 94 H From Monitor] Respiratory 20 Rate Blood Pressure 146/78 157/90 O2 Sat by Pulse 100 100 Oximetry 11/19/18 11/19/18 11/19/18 04:30 05:00 05:30 Temperature Pulse Rate 101 H 104 H 99 H Pulse Rate [ From Monitor] Respiratory 20 20 20 Rate Blood Pressure 159/86 165/88 169/92 O2 Sat by Pulse 99 100 100 Oximetry 11/19/18 06:00 Temperature Pulse Rate 102 H Pulse Rate [ From Monitor] Respiratory 20 Rate Blood Pressure 172/100 O2 Sat by Pulse 100 Oximetry Constitutional: no acute distress, other (middle aged AAM, normocephalic and atraumatic on MVS) Eyes: non-icteric ENT: oropharynx moist, other (ETT 25 cm FITO) Neck: supple, no lymphadenopathy, no JVD Effort: normal Ascultation: Bilateral: clear, diminished breath sounds, rhonchi Percussion: Bilateral: not dull Cardiovascular: regular rate and rhythm, other (S1,S2, no murmurs, gallops or rubs) Gastrointestinal: normoactive bowel sounds, soft, non-tender, non-distended Integumentary: rash Extremities: no cyanosis, no edema, pulses normal, no ischemia or petechiae Neurologic: pupils equal and round (minimally reactive), unable to assess, other (intermittent myoclonic type jerks) Psychiatric: other (unable to assess re: AMS) CBC and BMP: 11/18/18 04:24 11/19/18 04:24 ABG, PT/INR, D-dimer: ABG POC ABG pH 7.481 (7.35-7.45) H 11/17/18 05:12 POC ABG pCO2 44.9 (35-45) 11/17/18 05:12 POC ABG pO2 95 (80-105) 11/17/18 05:12 POC ABG HCO3 33.5 (22-26 mml/L) 11/17/18 05:12 POC ABG Total CO2 35 (23-27mmol/L) 11/17/18 05:12 POC ABG O2 Sat 98 11/17/18 05:12 Abnormal lab findings: Abnormal Labs 11/06/18 11/06/18 11/06/18 08:22 09:02 09:02 WBC 20.1 H RBC 3.40 L Hgb 10.5 L Hct MCV 119 H MCHC 26 L RDW 15.7 H Plt Count Lymph % (Auto) [place] % (Auto) Lymph # [place] # Seg Neutrophils % 80.1 H Seg Neuts % (Manual) 76.0 H Lymphocytes % (Manual) 4.0 L Monocytes % (Manual) Nucleated RBC % 1.0 H Seg Neutrophils # 16.1 H Seg Neutrophils # Man 15.3 H Lymphocytes # (Manual) 0.8 L Monocytes # (Manual) POC ABG pH POC ABG pCO2 POC ABG pO2 VBG pH Sodium 129 L Potassium 7.7 H* Chloride 79.7 L Carbon Dioxide 4 L* BUN 93 H Creatinine 7.4 H Glucose 1469 H* POC Glucose > 500 H Hemoglobin A1c Lactic Acid Calcium Phosphorus Magnesium Direct Bilirubin AST 2679 H ALT 1175 H C-Reactive Protein Total Protein 6.1 L Albumin 2.9 L Urine WBC (Auto) Salicylates Acetaminophen Heparin-induced Plt Ab 11/06/18 11/06/18 11/06/18 09:02 09:02 09:02 WBC RBC Hgb Hct MCV MCHC RDW Plt Count Lymph % (Auto) [place] % (Auto) Lymph # [place] # Seg Neutrophils % Seg Neuts % (Manual) Lymphocytes % (Manual) Monocytes % (Manual) Nucleated RBC % Seg Neutrophils # Seg Neutrophils # Man Lymphocytes # (Manual) Monocytes # (Manual) POC ABG pH POC ABG pCO2 POC ABG pO2 VBG pH Sodium Potassium Chloride Carbon Dioxide BUN Creatinine Glucose POC Glucose Hemoglobin A1c Lactic Acid 9.40 H* Calcium Phosphorus Magnesium Direct Bilirubin AST ALT C-Reactive Protein Total Protein Albumin Urine WBC (Auto) Salicylates < 0.3 L Acetaminophen < 5.0 L Heparin-induced Plt Ab 11/06/18 11/06/18 11/06/18 09:03 10:19 10:19 WBC RBC Hgb Hct MCV MCHC RDW Plt Count Lymph % (Auto) [place] % (Auto) Lymph # [place] # Seg Neutrophils % Seg Neuts % (Manual) Lymphocytes % (Manual) Monocytes % (Manual) Nucleated RBC % Seg Neutrophils # Seg Neutrophils # Man Lymphocytes # (Manual) Monocytes # (Manual) POC ABG pH 6.841 L POC ABG pCO2 POC ABG pO2 VBG pH Sodium 131 L Potassium 8.9 H* Chloride 85.3 L Carbon Dioxide 6 L* BUN 90 H Creatinine 7.1 H Glucose 1353 H* POC Glucose Hemoglobin A1c Lactic Acid Calcium 7.8 L Phosphorus 14.50 H Magnesium 2.70 H Direct Bilirubin AST ALT C-Reactive Protein Total Protein Albumin Urine WBC (Auto) Salicylates Acetaminophen Heparin-induced Plt Ab 11/06/18 11/06/18 11/06/18 12:07 13:22 13:22 WBC RBC Hgb Hct MCV MCHC RDW Plt Count Lymph % (Auto) [place] % (Auto) Lymph # [place] # Seg Neutrophils % Seg Neuts % (Manual) Lymphocytes % (Manual) Monocytes % (Manual) Nucleated RBC % Seg Neutrophils # Seg Neutrophils # Man Lymphocytes # (Manual) Monocytes # (Manual) POC ABG pH POC ABG pCO2 POC ABG pO2 VBG pH 6.982 L* Sodium 135 L Potassium 7.0 H* D Chloride 88.4 L Carbon Dioxide 5 L* BUN 89 H Creatinine 7.2 H Glucose 1326 H* POC Glucose Hemoglobin A1c Lactic Acid 8.50 H* Calcium Phosphorus Magnesium Direct Bilirubin AST ALT C-Reactive Protein Total Protein Albumin Urine WBC (Auto) Salicylates Acetaminophen Heparin-induced Plt Ab 11/06/18 11/06/18 11/06/18 14:15 14:15 15:21 WBC RBC Hgb Hct MCV MCHC RDW Plt Count Lymph % (Auto) [place] % (Auto) Lymph # [place] # Seg Neutrophils % Seg Neuts % (Manual) Lymphocytes % (Manual) Monocytes % (Manual) Nucleated RBC % Seg Neutrophils # Seg Neutrophils # Man Lymphocytes # (Manual) Monocytes # (Manual) POC ABG pH POC ABG pCO2 POC ABG pO2 VBG pH Sodium Potassium 6.6 H* 6.0 H Chloride 95.3 L 93.3 L Carbon Dioxide 4 L* 6 L* BUN 83 H 91 H Creatinine 6.9 H 7.3 H Glucose 1205 H* 1174 H* POC Glucose Hemoglobin A1c Lactic Acid Calcium 8.2 L Phosphorus 13.00 H Magnesium 2.60 H Direct Bilirubin AST ALT C-Reactive Protein Total Protein Albumin Urine WBC (Auto) Salicylates Acetaminophen Heparin-induced Plt Ab 11/06/18 11/06/18 11/06/18 15:21 16:14 16:33 WBC RBC Hgb Hct MCV MCHC RDW Plt Count Lymph % (Auto) [place] % (Auto) Lymph # [place] # Seg Neutrophils % Seg Neuts % (Manual) Lymphocytes % (Manual) Monocytes % (Manual) Nucleated RBC % Seg Neutrophils # Seg Neutrophils # Man Lymphocytes # (Manual) Monocytes # (Manual) POC ABG pH 7.004 L POC ABG pCO2 33.0 L POC ABG pO2 178 H VBG pH Sodium Potassium Chloride Carbon Dioxide BUN Creatinine Glucose POC Glucose > 500 H Hemoglobin A1c Lactic Acid 7.60 H* Calcium Phosphorus Magnesium Direct Bilirubin AST ALT C-Reactive Protein Total Protein Albumin Urine WBC (Auto) Salicylates Acetaminophen Heparin-induced Plt Ab 11/06/18 11/06/18 11/06/18 17:34 19:30 19:30 WBC RBC Hgb Hct MCV MCHC RDW Plt Count Lymph % (Auto) [place] % (Auto) Lymph # [place] # Seg Neutrophils % Seg Neuts % (Manual) Lymphocytes % (Manual) Monocytes % (Manual) Nucleated RBC % Seg Neutrophils # Seg Neutrophils # Man Lymphocytes # (Manual) Monocytes # (Manual) POC ABG pH POC ABG pCO2 POC ABG pO2 VBG pH Sodium Potassium 5.5 H Chloride 97.4 L 97.7 L Carbon Dioxide 10 L 11 L BUN 88 H 87 H Creatinine 7.5 H 7.6 H Glucose 1054 H* 954 H* POC Glucose Hemoglobin A1c Lactic Acid Calcium 7.7 L 7.4 L Phosphorus Magnesium Direct Bilirubin AST ALT C-Reactive Protein 1.90 H Total Protein Albumin Urine WBC (Auto) Salicylates Acetaminophen Heparin-induced Plt Ab 11/06/18 11/06/18 11/06/18 20:31 20:40 20:40 WBC RBC Hgb Hct MCV MCHC RDW Plt Count Lymph % (Auto) [place] % (Auto) Lymph # [place] # Seg Neutrophils % Seg Neuts % (Manual) Lymphocytes % (Manual) Monocytes % (Manual) Nucleated RBC % Seg Neutrophils # Seg Neutrophils # Man Lymphocytes # (Manual) Monocytes # (Manual) POC ABG pH 7.245 L POC ABG pCO2 POC ABG pO2 132 H VBG pH Sodium Potassium Chloride Carbon Dioxide BUN Creatinine Glucose 907 H* POC Glucose Hemoglobin A1c Lactic Acid 4.40 H* Calcium Phosphorus Magnesium Direct Bilirubin AST ALT C-Reactive Protein Total Protein Albumin Urine WBC (Auto) Salicylates Acetaminophen Heparin-induced Plt Ab 11/06/18 11/06/18 11/06/18 22:05 22:40 23:35 WBC RBC Hgb Hct MCV MCHC RDW Plt Count Lymph % (Auto) [place] % (Auto) Lymph # [place] # Seg Neutrophils % Seg Neuts % (Manual) Lymphocytes % (Manual) Monocytes % (Manual) Nucleated RBC % Seg Neutrophils # Seg Neutrophils # Man Lymphocytes # (Manual) Monocytes # (Manual) POC ABG pH POC ABG pCO2 POC ABG pO2 VBG pH Sodium Potassium Chloride Carbon Dioxide 13 L BUN 86 H Creatinine 7.8 H Glucose 822 H* 726 H* POC Glucose Hemoglobin A1c Lactic Acid 3.40 H* Calcium 7.5 L Phosphorus Magnesium Direct Bilirubin AST ALT C-Reactive Protein Total Protein Albumin Urine WBC (Auto) Salicylates Acetaminophen Heparin-induced Plt Ab 11/07/18 11/07/18 11/07/18 01:25 01:26 03:15 WBC RBC Hgb Hct MCV MCHC RDW Plt Count Lymph % (Auto) [place] % (Auto) Lymph # [place] # Seg Neutrophils % Seg Neuts % (Manual) Lymphocytes % (Manual) Monocytes % (Manual) Nucleated RBC % Seg Neutrophils # Seg Neutrophils # Man Lymphocytes # (Manual) Monocytes # (Manual) POC ABG pH POC ABG pCO2 POC ABG pO2 VBG pH Sodium Potassium Chloride Carbon Dioxide BUN Creatinine Glucose 602 H* POC Glucose > 500 H > 500 H Hemoglobin A1c Lactic Acid Calcium Phosphorus Magnesium Direct Bilirubin AST ALT C-Reactive Protein Total Protein Albumin Urine WBC (Auto) Salicylates Acetaminophen Heparin-induced Plt Ab 11/07/18 11/07/18 11/07/18 03:20 04:32 04:47 WBC RBC Hgb Hct MCV MCHC RDW Plt Count Lymph % (Auto) [place] % (Auto) Lymph # [place] # Seg Neutrophils % Seg Neuts % (Manual) Lymphocytes % (Manual) Monocytes % (Manual) Nucleated RBC % Seg Neutrophils # Seg Neutrophils # Man Lymphocytes # (Manual) Monocytes # (Manual) POC ABG pH POC ABG pCO2 30.3 L POC ABG pO2 153 H VBG pH Sodium 149 H Potassium Chloride Carbon Dioxide 16 L BUN 86 H Creatinine 8.3 H Glucose 499.2 H POC Glucose 360 H Hemoglobin A1c Lactic Acid Calcium 7.6 L Phosphorus Magnesium Direct Bilirubin AST ALT C-Reactive Protein Total Protein Albumin Urine WBC (Auto) Salicylates Acetaminophen Heparin-induced Plt Ab 11/07/18 11/07/18 11/07/18 05:26 06:35 06:36 WBC RBC Hgb Hct MCV MCHC RDW Plt Count Lymph % (Auto) [place] % (Auto) Lymph # [place] # Seg Neutrophils % Seg Neuts % (Manual) Lymphocytes % (Manual) Monocytes % (Manual) Nucleated RBC % Seg Neutrophils # Seg Neutrophils # Man Lymphocytes # (Manual) Monocytes # (Manual) POC ABG pH POC ABG pCO2 POC ABG pO2 VBG pH Sodium 153 H Potassium 3.2 L Chloride 109.7 H Carbon Dioxide BUN 84 H Creatinine 8.6 H Glucose 249 H POC Glucose 341 H 274 H Hemoglobin A1c Lactic Acid Calcium 7.6 L Phosphorus Magnesium Direct Bilirubin AST ALT C-Reactive Protein Total Protein Albumin Urine WBC (Auto) Salicylates Acetaminophen Heparin-induced Plt Ab 11/07/18 11/07/18 11/07/18 07:33 09:00 09:52 WBC RBC Hgb Hct MCV MCHC RDW Plt Count Lymph % (Auto) [place] % (Auto) Lymph # [place] # Seg Neutrophils % Seg Neuts % (Manual) Lymphocytes % (Manual) Monocytes % (Manual) Nucleated RBC % Seg Neutrophils # Seg Neutrophils # Man Lymphocytes # (Manual) Monocytes # (Manual) POC ABG pH POC ABG pCO2 POC ABG pO2 VBG pH Sodium Potassium Chloride Carbon Dioxide BUN Creatinine Glucose POC Glucose 243 H 182 H 227 H Hemoglobin A1c Lactic Acid Calcium Phosphorus Magnesium Direct Bilirubin AST ALT C-Reactive Protein Total Protein Albumin Urine WBC (Auto) Salicylates Acetaminophen Heparin-induced Plt Ab 11/07/18 11/07/18 11/07/18 10:50 10:50 10:50 WBC 11.3 H RBC 2.85 L Hgb 8.7 L Hct 25.3 L D MCV MCHC RDW Plt Count Lymph % (Auto) 9.7 L [place] % (Auto) Lymph # 1.1 L [place] # Seg Neutrophils % 83.3 H Seg Neuts % (Manual) Lymphocytes % (Manual) Monocytes % (Manual) Nucleated RBC % Seg Neutrophils # 9.4 H Seg Neutrophils # Man Lymphocytes # (Manual) Monocytes # (Manual) POC ABG pH POC ABG pCO2 POC ABG pO2 VBG pH Sodium 154 H Potassium 3.2 L Chloride 110.2 H Carbon Dioxide BUN 82 H Creatinine 8.3 H Glucose 186 H POC Glucose 200 H Hemoglobin A1c Lactic Acid Calcium 7.3 L Phosphorus Magnesium Direct Bilirubin AST ALT C-Reactive Protein Total Protein Albumin Urine WBC (Auto) Salicylates Acetaminophen Heparin-induced Plt Ab 11/07/18 11/07/18 11/07/18 12:00 12:05 13:13 WBC RBC Hgb Hct MCV MCHC RDW Plt Count Lymph % (Auto) [place] % (Auto) Lymph # [place] # Seg Neutrophils % Seg Neuts % (Manual) Lymphocytes % (Manual) Monocytes % (Manual) Nucleated RBC % Seg Neutrophils # Seg Neutrophils # Man Lymphocytes # (Manual) Monocytes # (Manual) POC ABG pH POC ABG pCO2 POC ABG pO2 VBG pH Sodium Potassium Chloride Carbon Dioxide BUN Creatinine Glucose POC Glucose 179 H 190 H Hemoglobin A1c Lactic Acid 2.50 H* Calcium Phosphorus Magnesium Direct Bilirubin AST ALT C-Reactive Protein Total Protein Albumin Urine WBC (Auto) Salicylates Acetaminophen Heparin-induced Plt Ab 11/07/18 11/07/18 11/07/18 13:20 14:05 15:18 WBC RBC Hgb Hct MCV MCHC RDW Plt Count Lymph % (Auto) [place] % (Auto) Lymph # [place] # Seg Neutrophils % Seg Neuts % (Manual) Lymphocytes % (Manual) Monocytes % (Manual) Nucleated RBC % Seg Neutrophils # Seg Neutrophils # Man Lymphocytes # (Manual) Monocytes # (Manual) POC ABG pH POC ABG pCO2 POC ABG pO2 VBG pH Sodium Potassium 3.1 L Chloride Carbon Dioxide BUN 50 H Creatinine 5.0 H Glucose 176 H POC Glucose 189 H 215 H Hemoglobin A1c Lactic Acid Calcium 7.4 L Phosphorus Magnesium Direct Bilirubin AST ALT C-Reactive Protein Total Protein Albumin Urine WBC (Auto) Salicylates Acetaminophen Heparin-induced Plt Ab 11/07/18 11/07/18 11/07/18 16:25 17:37 23:23 WBC RBC Hgb Hct MCV MCHC RDW Plt Count Lymph % (Auto) [place] % (Auto) Lymph # [place] # Seg Neutrophils % Seg Neuts % (Manual) Lymphocytes % (Manual) Monocytes % (Manual) Nucleated RBC % Seg Neutrophils # Seg Neutrophils # Man Lymphocytes # (Manual) Monocytes # (Manual) POC ABG pH POC ABG pCO2 POC ABG pO2 VBG pH Sodium Potassium Chloride Carbon Dioxide BUN Creatinine Glucose POC Glucose 180 H 215 H 234 H Hemoglobin A1c Lactic Acid Calcium Phosphorus Magnesium Direct Bilirubin AST ALT C-Reactive Protein Total Protein Albumin Urine WBC (Auto) Salicylates Acetaminophen Heparin-induced Plt Ab 11/08/18 11/08/18 11/08/18 04:17 04:23 04:23 WBC RBC 2.98 L Hgb 9.3 L Hct 26.7 L MCV MCHC 35 H RDW Plt Count 130 L Lymph % (Auto) [place] % (Auto) Lymph # [place] # Seg Neutrophils % 80.3 H Seg Neuts % (Manual) Lymphocytes % (Manual) Monocytes % (Manual) Nucleated RBC % Seg Neutrophils # 7.8 H Seg Neutrophils # Man Lymphocytes # (Manual) Monocytes # (Manual) POC ABG pH 7.520 H POC ABG pCO2 POC ABG pO2 111 H VBG pH Sodium Potassium 3.0 L Chloride Carbon Dioxide BUN 44 H Creatinine 6.3 H Glucose 245 H POC Glucose Hemoglobin A1c Lactic Acid Calcium 7.3 L Phosphorus Magnesium Direct Bilirubin AST ALT C-Reactive Protein Total Protein Albumin Urine WBC (Auto) Salicylates Acetaminophen Heparin-induced Plt Ab 11/08/18 11/08/18 11/08/18 05:19 08:00 08:00 WBC RBC Hgb Hct MCV MCHC RDW Plt Count Lymph % (Auto) [place] % (Auto) Lymph # [place] # Seg Neutrophils % Seg Neuts % (Manual) Lymphocytes % (Manual) Monocytes % (Manual) Nucleated RBC % Seg Neutrophils # Seg Neutrophils # Man Lymphocytes # (Manual) Monocytes # (Manual) POC ABG pH POC ABG pCO2 POC ABG pO2 VBG pH Sodium Potassium Chloride Carbon Dioxide BUN Creatinine Glucose POC Glucose 253 H Hemoglobin A1c Lactic Acid 2.70 H* Calcium Phosphorus Magnesium Direct Bilirubin 0.3 H AST 932 H ALT 582 H C-Reactive Protein Total Protein 5.4 L Albumin 2.6 L Urine WBC (Auto) Salicylates Acetaminophen Heparin-induced Plt Ab 11/08/18 11/08/18 11/08/18 11:36 17:51 21:59 WBC RBC Hgb Hct MCV MCHC RDW Plt Count Lymph % (Auto) [place] % (Auto) Lymph # [place] # Seg Neutrophils % Seg Neuts % (Manual) Lymphocytes % (Manual) Monocytes % (Manual) Nucleated RBC % Seg Neutrophils # Seg Neutrophils # Man Lymphocytes # (Manual) Monocytes # (Manual) POC ABG pH 7.459 H POC ABG pCO2 POC ABG pO2 108 H VBG pH Sodium Potassium Chloride Carbon Dioxide BUN Creatinine Glucose POC Glucose 197 H Hemoglobin A1c Lactic Acid Calcium Phosphorus Magnesium Direct Bilirubin AST ALT C-Reactive Protein Total Protein Albumin Urine WBC (Auto) Salicylates Acetaminophen Heparin-induced Plt Ab Positive H 11/08/18 11/09/18 11/09/18 23:28 00:39 02:20 WBC RBC Hgb Hct MCV MCHC RDW Plt Count Lymph % (Auto) [place] % (Auto) Lymph # [place] # Seg Neutrophils % Seg Neuts % (Manual) Lymphocytes % (Manual) Monocytes % (Manual) Nucleated RBC % Seg Neutrophils # Seg Neutrophils # Man Lymphocytes # (Manual) Monocytes # (Manual) POC ABG pH POC ABG pCO2 POC ABG pO2 VBG pH Sodium Potassium Chloride Carbon Dioxide BUN Creatinine Glucose POC Glucose 418 H 471 H 254 H Hemoglobin A1c Lactic Acid Calcium Phosphorus Magnesium Direct Bilirubin AST ALT C-Reactive Protein Total Protein Albumin Urine WBC (Auto) Salicylates Acetaminophen Heparin-induced Plt Ab 11/09/18 11/09/18 11/09/18 03:48 06:02 06:02 WBC RBC 2.95 L Hgb 9.2 L Hct 26.7 L MCV MCHC RDW Plt Count 101 L Lymph % (Auto) [place] % (Auto) Lymph # [place] # Seg Neutrophils % Seg Neuts % (Manual) Lymphocytes % (Manual) Monocytes % (Manual) Nucleated RBC % Seg Neutrophils # Seg Neutrophils # Man Lymphocytes # (Manual) Monocytes # (Manual) POC ABG pH POC ABG pCO2 POC ABG pO2 108 H VBG pH Sodium 150 H Potassium Chloride 108.3 H Carbon Dioxide BUN 44 H Creatinine 7.7 H Glucose 102 H POC Glucose Hemoglobin A1c Lactic Acid Calcium 7.2 L Phosphorus Magnesium Direct Bilirubin AST 554 H ALT 461 H C-Reactive Protein Total Protein 5.1 L Albumin 2.6 L Urine WBC (Auto) Salicylates Acetaminophen Heparin-induced Plt Ab 11/09/18 11/09/18 11/09/18 17:49 18:49 23:32 WBC RBC Hgb Hct MCV MCHC RDW Plt Count Lymph % (Auto) [place] % (Auto) Lymph # [place] # Seg Neutrophils % Seg Neuts % (Manual) Lymphocytes % (Manual) Monocytes % (Manual) Nucleated RBC % Seg Neutrophils # Seg Neutrophils # Man Lymphocytes # (Manual) Monocytes # (Manual) POC ABG pH POC ABG pCO2 46.2 H POC ABG pO2 VBG pH Sodium Potassium Chloride Carbon Dioxide BUN Creatinine Glucose POC Glucose 184 H 150 H Hemoglobin A1c Lactic Acid Calcium Phosphorus Magnesium Direct Bilirubin AST ALT C-Reactive Protein Total Protein Albumin Urine WBC (Auto) Salicylates Acetaminophen Heparin-induced Plt Ab 11/10/18 11/10/18 11/10/18 02:52 05:00 05:00 WBC RBC 2.95 L Hgb 8.9 L Hct 26.6 L MCV MCHC RDW Plt Count 100 L Lymph % (Auto) [place] % (Auto) Lymph # [place] # Seg Neutrophils % Seg Neuts % (Manual) Lymphocytes % (Manual) Monocytes % (Manual) 8.0 H Nucleated RBC % Seg Neutrophils # Seg Neutrophils # Man Lymphocytes # (Manual) Monocytes # (Manual) POC ABG pH POC ABG pCO2 POC ABG pO2 VBG pH Sodium Potassium Chloride Carbon Dioxide BUN 33 H Creatinine 6.8 H Glucose 251 H POC Glucose 186 H Hemoglobin A1c Lactic Acid Calcium 7.3 L Phosphorus Magnesium Direct Bilirubin AST ALT C-Reactive Protein Total Protein Albumin Urine WBC (Auto) Salicylates Acetaminophen Heparin-induced Plt Ab 11/10/18 11/10/18 11/10/18 05:16 11:47 17:32 WBC RBC Hgb Hct MCV MCHC RDW Plt Count Lymph % (Auto) [place] % (Auto) Lymph # [place] # Seg Neutrophils % Seg Neuts % (Manual) Lymphocytes % (Manual) Monocytes % (Manual) Nucleated RBC % Seg Neutrophils # Seg Neutrophils # Man Lymphocytes # (Manual) Monocytes # (Manual) POC ABG pH POC ABG pCO2 POC ABG pO2 VBG pH Sodium Potassium Chloride Carbon Dioxide BUN Creatinine Glucose POC Glucose 242 H 261 H 194 H Hemoglobin A1c Lactic Acid Calcium Phosphorus Magnesium Direct Bilirubin AST ALT C-Reactive Protein Total Protein Albumin Urine WBC (Auto) Salicylates Acetaminophen Heparin-induced Plt Ab 11/10/18 11/11/18 11/11/18 23:39 00:26 04:24 WBC RBC 2.98 L Hgb 9.1 L Hct 27.4 L MCV MCHC RDW Plt Count 114 L Lymph % (Auto) [place] % (Auto) Lymph # [place] # Seg Neutrophils % Seg Neuts % (Manual) Lymphocytes % (Manual) Monocytes % (Manual) 10.0 H Nucleated RBC % Seg Neutrophils # Seg Neutrophils # Man Lymphocytes # (Manual) Monocytes # (Manual) 1.0 H POC ABG pH POC ABG pCO2 POC ABG pO2 VBG pH Sodium Potassium Chloride Carbon Dioxide BUN Creatinine Glucose POC Glucose 60 L 124 H Hemoglobin A1c Lactic Acid Calcium Phosphorus Magnesium Direct Bilirubin AST ALT C-Reactive Protein Total Protein Albumin Urine WBC (Auto) Salicylates Acetaminophen Heparin-induced Plt Ab 11/11/18 11/11/18 11/11/18 04:24 05:27 05:31 WBC RBC Hgb Hct MCV MCHC RDW Plt Count Lymph % (Auto) [place] % (Auto) Lymph # [place] # Seg Neutrophils % Seg Neuts % (Manual) Lymphocytes % (Manual) Monocytes % (Manual) Nucleated RBC % Seg Neutrophils # Seg Neutrophils # Man Lymphocytes # (Manual) Monocytes # (Manual) POC ABG pH POC ABG pCO2 48.8 H POC ABG pO2 109 H VBG pH Sodium Potassium Chloride Carbon Dioxide BUN 23 H Creatinine 5.5 H Glucose 147 H POC Glucose 172 H Hemoglobin A1c Lactic Acid Calcium 7.9 L Phosphorus Magnesium Direct Bilirubin AST 152 H ALT 247 H C-Reactive Protein Total Protein Albumin 2.3 L Urine WBC (Auto) Salicylates Acetaminophen Heparin-induced Plt Ab 11/11/18 11/11/18 11/11/18 12:11 17:12 23:41 WBC RBC Hgb Hct MCV MCHC RDW Plt Count Lymph % (Auto) [place] % (Auto) Lymph # [place] # Seg Neutrophils % Seg Neuts % (Manual) Lymphocytes % (Manual) Monocytes % (Manual) Nucleated RBC % Seg Neutrophils # Seg Neutrophils # Man Lymphocytes # (Manual) Monocytes # (Manual) POC ABG pH POC ABG pCO2 POC ABG pO2 VBG pH Sodium Potassium Chloride Carbon Dioxide BUN Creatinine Glucose POC Glucose 343 H 188 H 145 H Hemoglobin A1c Lactic Acid Calcium Phosphorus Magnesium Direct Bilirubin AST ALT C-Reactive Protein Total Protein Albumin Urine WBC (Auto) Salicylates Acetaminophen Heparin-induced Plt Ab 11/12/18 11/12/18 11/12/18 00:11 04:44 04:44 WBC RBC 2.91 L Hgb 9.0 L Hct 26.9 L MCV MCHC RDW Plt Count Lymph % (Auto) 12.7 L [place] % (Auto) 14.9 H Lymph # 0.8 L [place] # 1.0 H Seg Neutrophils % 71.2 H Seg Neuts % (Manual) Lymphocytes % (Manual) Monocytes % (Manual) Nucleated RBC % Seg Neutrophils # Seg Neutrophils # Man Lymphocytes # (Manual) Monocytes # (Manual) POC ABG pH POC ABG pCO2 POC ABG pO2 VBG pH Sodium Potassium Chloride Carbon Dioxide BUN 22 H Creatinine 5.0 H Glucose 288 H POC Glucose 151 H Hemoglobin A1c Lactic Acid Calcium Phosphorus Magnesium Direct Bilirubin AST 88 H ALT 187 H C-Reactive Protein Total Protein Albumin 2.9 L Urine WBC (Auto) Salicylates Acetaminophen Heparin-induced Plt Ab 11/12/18 11/12/18 11/12/18 11:48 12:28 17:13 WBC RBC Hgb Hct MCV MCHC RDW Plt Count Lymph % (Auto) [place] % (Auto) Lymph # [place] # Seg Neutrophils % Seg Neuts % (Manual) Lymphocytes % (Manual) Monocytes % (Manual) Nucleated RBC % Seg Neutrophils # Seg Neutrophils # Man Lymphocytes # (Manual) Monocytes # (Manual) POC ABG pH POC ABG pCO2 POC ABG pO2 VBG pH Sodium Potassium Chloride Carbon Dioxide BUN Creatinine Glucose POC Glucose 414 H 437 H 251 H Hemoglobin A1c Lactic Acid Calcium Phosphorus Magnesium Direct Bilirubin AST ALT C-Reactive Protein Total Protein Albumin Urine WBC (Auto) Salicylates Acetaminophen Heparin-induced Plt Ab 11/13/18 11/13/18 11/13/18 00:43 04:14 04:14 WBC RBC 2.62 L Hgb 8.0 L Hct 24.0 L MCV MCHC RDW Plt Count Lymph % (Auto) [place] % (Auto) 15.8 H Lymph # [place] # 0.9 H Seg Neutrophils % Seg Neuts % (Manual) Lymphocytes % (Manual) Monocytes % (Manual) Nucleated RBC % Seg Neutrophils # Seg Neutrophils # Man Lymphocytes # (Manual) Monocytes # (Manual) POC ABG pH POC ABG pCO2 POC ABG pO2 VBG pH Sodium Potassium Chloride Carbon Dioxide BUN 32 H Creatinine 6.9 H Glucose 190 H POC Glucose 149 H Hemoglobin A1c Lactic Acid Calcium Phosphorus Magnesium Direct Bilirubin AST ALT C-Reactive Protein Total Protein Albumin Urine WBC (Auto) Salicylates Acetaminophen Heparin-induced Plt Ab 11/13/18 11/13/18 11/13/18 05:53 10:40 12:05 WBC RBC Hgb Hct MCV MCHC RDW Plt Count Lymph % (Auto) [place] % (Auto) Lymph # [place] # Seg Neutrophils % Seg Neuts % (Manual) Lymphocytes % (Manual) Monocytes % (Manual) Nucleated RBC % Seg Neutrophils # Seg Neutrophils # Man Lymphocytes # (Manual) Monocytes # (Manual) POC ABG pH POC ABG pCO2 POC ABG pO2 VBG pH Sodium Potassium Chloride Carbon Dioxide BUN Creatinine Glucose POC Glucose 270 H 405 H 361 H Hemoglobin A1c Lactic Acid Calcium Phosphorus Magnesium Direct Bilirubin AST ALT C-Reactive Protein Total Protein Albumin Urine WBC (Auto) Salicylates Acetaminophen Heparin-induced Plt Ab 11/13/18 11/13/18 11/14/18 18:48 23:55 04:57 WBC RBC 2.75 L Hgb 8.3 L Hct 25.2 L MCV MCHC RDW Plt Count Lymph % (Auto) [place] % (Auto) 15.8 H Lymph # 0.9 L [place] # 0.9 H Seg Neutrophils % Seg Neuts % (Manual) Lymphocytes % (Manual) Monocytes % (Manual) Nucleated RBC % Seg Neutrophils # Seg Neutrophils # Man Lymphocytes # (Manual) Monocytes # (Manual) POC ABG pH POC ABG pCO2 POC ABG pO2 VBG pH Sodium Potassium Chloride Carbon Dioxide BUN Creatinine Glucose POC Glucose 202 H 254 H Hemoglobin A1c Lactic Acid Calcium Phosphorus Magnesium Direct Bilirubin AST ALT C-Reactive Protein Total Protein Albumin Urine WBC (Auto) Salicylates Acetaminophen Heparin-induced Plt Ab 11/14/18 11/14/18 11/14/18 04:57 05:33 11:37 WBC RBC Hgb Hct MCV MCHC RDW Plt Count Lymph % (Auto) [place] % (Auto) Lymph # [place] # Seg Neutrophils % Seg Neuts % (Manual) Lymphocytes % (Manual) Monocytes % (Manual) Nucleated RBC % Seg Neutrophils # Seg Neutrophils # Man Lymphocytes # (Manual) Monocytes # (Manual) POC ABG pH POC ABG pCO2 POC ABG pO2 VBG pH Sodium 136 L Potassium Chloride 96.7 L Carbon Dioxide BUN 25 H Creatinine 5.3 H Glucose 235 H POC Glucose 242 H 272 H Hemoglobin A1c Lactic Acid Calcium Phosphorus Magnesium Direct Bilirubin AST ALT C-Reactive Protein Total Protein Albumin Urine WBC (Auto) Salicylates Acetaminophen Heparin-induced Plt Ab 11/14/18 11/14/18 11/15/18 18:08 23:21 04:50 WBC RBC 2.76 L Hgb 8.5 L Hct 25.4 L MCV MCHC RDW Plt Count Lymph % (Auto) [place] % (Auto) 14.5 H Lymph # [place] # 1.1 H Seg Neutrophils % Seg Neuts % (Manual) Lymphocytes % (Manual) Monocytes % (Manual) Nucleated RBC % Seg Neutrophils # Seg Neutrophils # Man Lymphocytes # (Manual) Monocytes # (Manual) POC ABG pH POC ABG pCO2 POC ABG pO2 VBG pH Sodium Potassium Chloride Carbon Dioxide BUN Creatinine Glucose POC Glucose 166 H 185 H Hemoglobin A1c Lactic Acid Calcium Phosphorus Magnesium Direct Bilirubin AST ALT C-Reactive Protein Total Protein Albumin Urine WBC (Auto) Salicylates Acetaminophen Heparin-induced Plt Ab 11/15/18 11/15/18 11/15/18 04:50 04:50 06:01 WBC RBC Hgb Hct MCV MCHC RDW Plt Count Lymph % (Auto) [place] % (Auto) Lymph # [place] # Seg Neutrophils % Seg Neuts % (Manual) Lymphocytes % (Manual) Monocytes % (Manual) Nucleated RBC % Seg Neutrophils # Seg Neutrophils # Man Lymphocytes # (Manual) Monocytes # (Manual) POC ABG pH POC ABG pCO2 POC ABG pO2 VBG pH Sodium Potassium Chloride 95.2 L Carbon Dioxide BUN 21 H Creatinine 4.8 H Glucose 126 H POC Glucose 150 H Hemoglobin A1c 10.1 H Lactic Acid Calcium Phosphorus Magnesium Direct Bilirubin AST ALT 69 H C-Reactive Protein Total Protein Albumin 2.7 L Urine WBC (Auto) Salicylates Acetaminophen Heparin-induced Plt Ab 11/15/18 11/15/18 11/16/18 13:06 18:08 00:39 WBC RBC Hgb Hct MCV MCHC RDW Plt Count Lymph % (Auto) [place] % (Auto) Lymph # [place] # Seg Neutrophils % Seg Neuts % (Manual) Lymphocytes % (Manual) Monocytes % (Manual) Nucleated RBC % Seg Neutrophils # Seg Neutrophils # Man Lymphocytes # (Manual) Monocytes # (Manual) POC ABG pH POC ABG pCO2 POC ABG pO2 VBG pH Sodium Potassium Chloride Carbon Dioxide BUN Creatinine Glucose POC Glucose 191 H 114 H 147 H Hemoglobin A1c Lactic Acid Calcium Phosphorus Magnesium Direct Bilirubin AST ALT C-Reactive Protein Total Protein Albumin Urine WBC (Auto) Salicylates Acetaminophen Heparin-induced Plt Ab 11/16/18 11/16/18 11/16/18 04:49 04:49 06:09 WBC RBC 2.60 L Hgb 8.0 L Hct 23.4 L MCV MCHC RDW Plt Count Lymph % (Auto) [place] % (Auto) 14.1 H Lymph # [place] # 1.2 H Seg Neutrophils % Seg Neuts % (Manual) Lymphocytes % (Manual) Monocytes % (Manual) Nucleated RBC % Seg Neutrophils # Seg Neutrophils # Man Lymphocytes # (Manual) Monocytes # (Manual) POC ABG pH POC ABG pCO2 POC ABG pO2 VBG pH Sodium 136 L Potassium Chloride 94.1 L Carbon Dioxide BUN 39 H Creatinine 7.4 H D Glucose 243 H POC Glucose 308 H Hemoglobin A1c Lactic Acid Calcium 8.3 L Phosphorus Magnesium Direct Bilirubin AST ALT C-Reactive Protein Total Protein Albumin 2.2 L Urine WBC (Auto) Salicylates Acetaminophen Heparin-induced Plt Ab 11/16/18 11/16/18 11/16/18 08:52 11:53 17:11 WBC RBC Hgb Hct MCV MCHC RDW Plt Count Lymph % (Auto) [place] % (Auto) Lymph # [place] # Seg Neutrophils % Seg Neuts % (Manual) Lymphocytes % (Manual) Monocytes % (Manual) Nucleated RBC % Seg Neutrophils # Seg Neutrophils # Man Lymphocytes # (Manual) Monocytes # (Manual) POC ABG pH POC ABG pCO2 POC ABG pO2 VBG pH Sodium Potassium Chloride Carbon Dioxide BUN Creatinine Glucose POC Glucose 278 H 178 H 173 H Hemoglobin A1c Lactic Acid Calcium Phosphorus Magnesium Direct Bilirubin AST ALT C-Reactive Protein Total Protein Albumin Urine WBC (Auto) Salicylates Acetaminophen Heparin-induced Plt Ab 11/16/18 11/17/18 11/17/18 21:27 00:08 04:45 WBC RBC 2.58 L Hgb 7.9 L Hct 23.5 L MCV MCHC RDW Plt Count Lymph % (Auto) [place] % (Auto) 10.3 H Lymph # [place] # 1.1 H Seg Neutrophils % 74.8 H Seg Neuts % (Manual) Lymphocytes % (Manual) Monocytes % (Manual) Nucleated RBC % Seg Neutrophils # Seg Neutrophils # Man Lymphocytes # (Manual) Monocytes # (Manual) POC ABG pH POC ABG pCO2 POC ABG pO2 VBG pH Sodium Potassium Chloride Carbon Dioxide BUN Creatinine Glucose POC Glucose 206 H 151 H Hemoglobin A1c Lactic Acid Calcium Phosphorus Magnesium Direct Bilirubin AST ALT C-Reactive Protein Total Protein Albumin Urine WBC (Auto) Salicylates Acetaminophen Heparin-induced Plt Ab 11/17/18 11/17/18 11/17/18 04:45 05:12 05:31 WBC RBC Hgb Hct MCV MCHC RDW Plt Count Lymph % (Auto) [place] % (Auto) Lymph # [place] # Seg Neutrophils % Seg Neuts % (Manual) Lymphocytes % (Manual) Monocytes % (Manual) Nucleated RBC % Seg Neutrophils # Seg Neutrophils # Man Lymphocytes # (Manual) Monocytes # (Manual) POC ABG pH 7.481 H POC ABG pCO2 POC ABG pO2 VBG pH Sodium 136 L Potassium Chloride 94.4 L Carbon Dioxide BUN 38 H Creatinine 6.8 H Glucose POC Glucose 111 H Hemoglobin A1c Lactic Acid Calcium Phosphorus Magnesium 2.40 H Direct Bilirubin AST ALT C-Reactive Protein Total Protein Albumin Urine WBC (Auto) Salicylates Acetaminophen Heparin-induced Plt Ab 11/17/18 11/17/18 11/18/18 12:10 23:23 04:24 WBC RBC 2.66 L Hgb 8.2 L Hct 24.0 L MCV MCHC RDW Plt Count 448 H Lymph % (Auto) [place] % (Auto) 12.7 H Lymph # [place] # 1.4 H Seg Neutrophils % 71.9 H Seg Neuts % (Manual) Lymphocytes % (Manual) Monocytes % (Manual) Nucleated RBC % Seg Neutrophils # Seg Neutrophils # Man Lymphocytes # (Manual) Monocytes # (Manual) POC ABG pH POC ABG pCO2 POC ABG pO2 VBG pH Sodium Potassium Chloride Carbon Dioxide BUN Creatinine Glucose POC Glucose 174 H 243 H Hemoglobin A1c Lactic Acid Calcium Phosphorus Magnesium Direct Bilirubin AST ALT C-Reactive Protein Total Protein Albumin Urine WBC (Auto) Salicylates Acetaminophen Heparin-induced Plt Ab 11/18/18 11/18/18 11/18/18 04:24 05:26 11:48 WBC RBC Hgb Hct MCV MCHC RDW Plt Count Lymph % (Auto) [place] % (Auto) Lymph # [place] # Seg Neutrophils % Seg Neuts % (Manual) Lymphocytes % (Manual) Monocytes % (Manual) Nucleated RBC % Seg Neutrophils # Seg Neutrophils # Man Lymphocytes # (Manual) Monocytes # (Manual) POC ABG pH POC ABG pCO2 POC ABG pO2 VBG pH Sodium 136 L Potassium Chloride 93.1 L Carbon Dioxide BUN 30 H Creatinine 5.9 H Glucose 211 H POC Glucose 205 H 162 H Hemoglobin A1c Lactic Acid Calcium Phosphorus Magnesium Direct Bilirubin AST ALT C-Reactive Protein Total Protein Albumin Urine WBC (Auto) Salicylates Acetaminophen Heparin-induced Plt Ab 11/18/18 11/18/18 11/18/18 12:01 19:37 23:21 WBC RBC Hgb Hct MCV MCHC RDW Plt Count Lymph % (Auto) [place] % (Auto) Lymph # [place] # Seg Neutrophils % Seg Neuts % (Manual) Lymphocytes % (Manual) Monocytes % (Manual) Nucleated RBC % Seg Neutrophils # Seg Neutrophils # Man Lymphocytes # (Manual) Monocytes # (Manual) POC ABG pH POC ABG pCO2 POC ABG pO2 VBG pH Sodium Potassium Chloride Carbon Dioxide BUN Creatinine Glucose POC Glucose 207 H 245 H Hemoglobin A1c Lactic Acid Calcium Phosphorus Magnesium Direct Bilirubin AST ALT C-Reactive Protein Total Protein Albumin Urine WBC (Auto) > 182.0 H Salicylates Acetaminophen Heparin-induced Plt Ab 11/19/18 11/19/18 04:24 05:21 WBC RBC Hgb Hct MCV MCHC RDW Plt Count Lymph % (Auto) [place] % (Auto) Lymph # [place] # Seg Neutrophils % Seg Neuts % (Manual) Lymphocytes % (Manual) Monocytes % (Manual) Nucleated RBC % Seg Neutrophils # Seg Neutrophils # Man Lymphocytes # (Manual) Monocytes # (Manual) POC ABG pH POC ABG pCO2 POC ABG pO2 VBG pH Sodium 134 L Potassium 5.4 H Chloride 89.8 L Carbon Dioxide BUN 54 H Creatinine 8.0 H Glucose 240 H POC Glucose 234 H Hemoglobin A1c Lactic Acid Calcium Phosphorus Magnesium Direct Bilirubin AST ALT C-Reactive Protein Total Protein Albumin Urine WBC (Auto) Salicylates Acetaminophen Heparin-induced Plt Ab Allied health notes reviewed: nursing
--- NOTE | 2018-11-19 09:00 | Progress Note ---
Assessment and Plan Acute hypoxemic respiratory failure, on mechanical ventilator support. Diabetic ketoacidosis. Severe metabolic acidosis. Severe sepsis with shock. Acute encephalopathy that appears to be toxic metabolic. End-stage renal disease, on dialysis. Hyperkalemia at presentation. Anemia that is macrocytic. Elevated serum transaminases Hypernatremia, improved Lactic acidosis. - hold enteric nutrition fro PEG/Trach placement today -q4 accucheck, avoid hypoglycemia -Supportive HD -Trach and PEG placement this afternoon -Continue all current care as documented below -goal blood glucose of 140-180 mg/dL - sedation target for RASS 0 to -1, on low dose fentanyl as a continuous infusion, will discontinue it once he has his tracheostomy placed. Plan to use intermittent dosing - continue to wean supplemental oxygen to keep O2 sats > 90% - continue bronchodilators with pulmonary hygiene per RT - Lung protective strategies - VAP bundle addressed - continue HD/UF as tolerated for toxin and volume clearance - continue to avoid nephrotoxic agents, adjust all medications for CrCL -Aspiration precautions, keep HOB >40 - Maintenance of sleep -wake cycle - Mobility protocol for pressure ulcer prevention - continue stress ulcer prophylaxis - Influenza and pneumonia vaccination per protocol PROGNOSIS: GUARDED CONDITION: CRITICAL CODE STATUS: FULL CODE Discussed care extensively in ICU-IDT rounds Subjective Date of service: 11/19/18 Principal diagnosis: Ac hypoxemic resp failure; DKA; Severe sepsis with shock; ESRD on dialysis Interval history: Patient is seen today for: Acute hypoxemic respiratory failure on MVS; DKA; Severe metabolic acidosis; Severe sepsis with shock; Acute encephalopathy that appears to be toxic metabolic; ESRD on dialysis; DM II; Peripheral vascular disease. Seen and examined at bedside; 24hour events reviewed; nursing and respiratory care staff consulted; no adverse overnight events reported to me; remains on MVS; AMS is persistent, but opens eyes on verbal and tactile stimulation. Tmax 100.5 at 4am, remains on fentanyl at 0.5mcg, continuos infusion, currently getting HD, plan for trach and PEG this afternoon Objective Vital Signs - 12hr 11/18/18 11/18/18 11/18/18 21:30 21:43 22:00 Temperature Pulse Rate 92 H 98 H 95 H Pulse Rate [ From Monitor] Respiratory 20 20 Rate Blood Pressure 155/89 155/89 149/90 O2 Sat by Pulse 100 100 Oximetry 11/18/18 11/18/18 11/18/18 22:30 23:00 23:15 Temperature Pulse Rate 87 93 H 98 H Pulse Rate [ From Monitor] Respiratory 20 20 20 Rate Blood Pressure 141/81 143/73 143/73 O2 Sat by Pulse 100 99 100 Oximetry 11/18/18 11/19/18 11/19/18 23:30 00:00 00:30 Temperature 99.8 F H Pulse Rate 89 93 H 99 H Pulse Rate [ 94 H From Monitor] Respiratory 20 20 20 Rate Blood Pressure 129/75 154/86 151/81 O2 Sat by Pulse 100 99 100 Oximetry 11/19/18 11/19/18 11/19/18 01:00 01:30 02:00 Temperature Pulse Rate 96 H 95 H 97 H Pulse Rate [ From Monitor] Respiratory 20 20 20 Rate Blood Pressure 145/74 145/78 159/88 O2 Sat by Pulse 99 100 100 Oximetry 11/19/18 11/19/18 11/19/18 02:30 02:53 03:00 Temperature Pulse Rate 101 H 101 H Pulse Rate [ From Monitor] Respiratory 19 20 Rate Blood Pressure 158/79 156/86 165/91 O2 Sat by Pulse 100 100 Oximetry 11/19/18 11/19/18 11/19/18 03:30 03:37 03:57 Temperature 100.5 F H Pulse Rate 96 H 97 H Pulse Rate [ From Monitor] Respiratory 20 Rate Blood Pressure 146/78 146/78 O2 Sat by Pulse 100 100 Oximetry 11/19/18 11/19/18 11/19/18 04:00 04:30 05:00 Temperature Pulse Rate 102 H 101 H 104 H Pulse Rate [ 94 H From Monitor] Respiratory 20 20 20 Rate Blood Pressure 157/90 159/86 165/88 O2 Sat by Pulse 100 99 100 Oximetry 11/19/18 11/19/18 11/19/18 05:30 06:00 06:30 Temperature Pulse Rate 99 H 102 H 103 H Pulse Rate [ From Monitor] Respiratory 20 20 20 Rate Blood Pressure 169/92 172/100 170/94 O2 Sat by Pulse 100 100 100 Oximetry 11/19/18 11/19/18 11/19/18 06:54 07:00 07:30 Temperature Pulse Rate 101 H 93 H Pulse Rate [ From Monitor] Respiratory 20 20 Rate Blood Pressure 160/86 152/88 150/85 O2 Sat by Pulse 100 100 Oximetry 11/19/18 11/19/18 08:00 08:29 Temperature 97.6 F Pulse Rate 94 H 100 H Pulse Rate [ 94 H From Monitor] Respiratory 20 Rate Blood Pressure 164/91 O2 Sat by Pulse 100 Oximetry Constitutional: no acute distress, other (middle aged AAM, normocephalic and atraumatic on MVS) Eyes: non-icteric ENT: oropharynx moist, other (ETT 25 cm FITO) Neck: supple, no lymphadenopathy, no JVD Effort: normal Ascultation: Bilateral: clear, diminished breath sounds, rhonchi Percussion: Bilateral: not dull Cardiovascular: regular rate and rhythm, other (S1,S2, no murmurs, gallops or rubs) Gastrointestinal: normoactive bowel sounds, soft, non-tender, non-distended Integumentary: rash Extremities: no cyanosis, pulses normal, no ischemia or petechiae, edema Neurologic: pupils equal and round (minimally reactive), unable to assess, other Psychiatric: other (unable to assess re: AMS) CBC and BMP: 11/20/18 10:25 11/20/18 17:45 ABG, PT/INR, D-dimer: ABG POC ABG pH 7.481 (7.35-7.45) H 11/17/18 05:12 POC ABG pCO2 44.9 (35-45) 11/17/18 05:12 POC ABG pO2 95 (80-105) 11/17/18 05:12 POC ABG HCO3 33.5 (22-26 mml/L) 11/17/18 05:12 POC ABG Total CO2 35 (23-27mmol/L) 11/17/18 05:12 POC ABG O2 Sat 98 11/17/18 05:12 Abnormal lab findings: Abnormal Labs 11/06/18 11/06/18 11/06/18 08:22 09:02 09:02 WBC 20.1 H RBC 3.40 L Hgb 10.5 L Hct MCV 119 H MCHC 26 L RDW 15.7 H Plt Count Lymph % (Auto) Taylor % (Auto) Lymph # Taylor # Seg Neutrophils % 80.1 H Seg Neuts % (Manual) 76.0 H Lymphocytes % (Manual) 4.0 L Monocytes % (Manual) Nucleated RBC % 1.0 H Seg Neutrophils # 16.1 H Seg Neutrophils # Man 15.3 H Lymphocytes # (Manual) 0.8 L Monocytes # (Manual) POC ABG pH POC ABG pCO2 POC ABG pO2 VBG pH Sodium 129 L Potassium 7.7 H* Chloride 79.7 L Carbon Dioxide 4 L* BUN 93 H Creatinine 7.4 H Glucose 1469 H* POC Glucose > 500 H Hemoglobin A1c Lactic Acid Calcium Phosphorus Magnesium Direct Bilirubin AST 2679 H ALT 1175 H C-Reactive Protein Total Protein 6.1 L Albumin 2.9 L Urine WBC (Auto) Salicylates Acetaminophen Heparin-induced Plt Ab 11/06/18 11/06/18 11/06/18 09:02 09:02 09:02 WBC RBC Hgb Hct MCV MCHC RDW Plt Count Lymph % (Auto) Taylor % (Auto) Lymph # Taylor # Seg Neutrophils % Seg Neuts % (Manual) Lymphocytes % (Manual) Monocytes % (Manual) Nucleated RBC % Seg Neutrophils # Seg Neutrophils # Man Lymphocytes # (Manual) Monocytes # (Manual) POC ABG pH POC ABG pCO2 POC ABG pO2 VBG pH Sodium Potassium Chloride Carbon Dioxide BUN Creatinine Glucose POC Glucose Hemoglobin A1c Lactic Acid 9.40 H* Calcium Phosphorus Magnesium Direct Bilirubin AST ALT C-Reactive Protein Total Protein Albumin Urine WBC (Auto) Salicylates < 0.3 L Acetaminophen < 5.0 L Heparin-induced Plt Ab 11/06/18 11/06/18 11/06/18 09:03 10:19 10:19 WBC RBC Hgb Hct MCV MCHC RDW Plt Count Lymph % (Auto) Taylor % (Auto) Lymph # Taylor # Seg Neutrophils % Seg Neuts % (Manual) Lymphocytes % (Manual) Monocytes % (Manual) Nucleated RBC % Seg Neutrophils # Seg Neutrophils # Man Lymphocytes # (Manual) Monocytes # (Manual) POC ABG pH 6.841 L POC ABG pCO2 POC ABG pO2 VBG pH Sodium 131 L Potassium 8.9 H* Chloride 85.3 L Carbon Dioxide 6 L* BUN 90 H Creatinine 7.1 H Glucose 1353 H* POC Glucose Hemoglobin A1c Lactic Acid Calcium 7.8 L Phosphorus 14.50 H Magnesium 2.70 H Direct Bilirubin AST ALT C-Reactive Protein Total Protein Albumin Urine WBC (Auto) Salicylates Acetaminophen Heparin-induced Plt Ab 11/06/18 11/06/18 11/06/18 12:07 13:22 13:22 WBC RBC Hgb Hct MCV MCHC RDW Plt Count Lymph % (Auto) Taylor % (Auto) Lymph # Taylor # Seg Neutrophils % Seg Neuts % (Manual) Lymphocytes % (Manual) Monocytes % (Manual) Nucleated RBC % Seg Neutrophils # Seg Neutrophils # Man Lymphocytes # (Manual) Monocytes # (Manual) POC ABG pH POC ABG pCO2 POC ABG pO2 VBG pH 6.982 L* Sodium 135 L Potassium 7.0 H* D Chloride 88.4 L Carbon Dioxide 5 L* BUN 89 H Creatinine 7.2 H Glucose 1326 H* POC Glucose Hemoglobin A1c Lactic Acid 8.50 H* Calcium Phosphorus Magnesium Direct Bilirubin AST ALT C-Reactive Protein Total Protein Albumin Urine WBC (Auto) Salicylates Acetaminophen Heparin-induced Plt Ab 11/06/18 11/06/18 11/06/18 14:15 14:15 15:21 WBC RBC Hgb Hct MCV MCHC RDW Plt Count Lymph % (Auto) Taylor % (Auto) Lymph # Taylor # Seg Neutrophils % Seg Neuts % (Manual) Lymphocytes % (Manual) Monocytes % (Manual) Nucleated RBC % Seg Neutrophils # Seg Neutrophils # Man Lymphocytes # (Manual) Monocytes # (Manual) POC ABG pH POC ABG pCO2 POC ABG pO2 VBG pH Sodium Potassium 6.6 H* 6.0 H Chloride 95.3 L 93.3 L Carbon Dioxide 4 L* 6 L* BUN 83 H 91 H Creatinine 6.9 H 7.3 H Glucose 1205 H* 1174 H* POC Glucose Hemoglobin A1c Lactic Acid Calcium 8.2 L Phosphorus 13.00 H Magnesium 2.60 H Direct Bilirubin AST ALT C-Reactive Protein Total Protein Albumin Urine WBC (Auto) Salicylates Acetaminophen Heparin-induced Plt Ab 11/06/18 11/06/18 11/06/18 15:21 16:14 16:33 WBC RBC Hgb Hct MCV MCHC RDW Plt Count Lymph % (Auto) Taylor % (Auto) Lymph # Taylor # Seg Neutrophils % Seg Neuts % (Manual) Lymphocytes % (Manual) Monocytes % (Manual) Nucleated RBC % Seg Neutrophils # Seg Neutrophils # Man Lymphocytes # (Manual) Monocytes # (Manual) POC ABG pH 7.004 L POC ABG pCO2 33.0 L POC ABG pO2 178 H VBG pH Sodium Potassium Chloride Carbon Dioxide BUN Creatinine Glucose POC Glucose > 500 H Hemoglobin A1c Lactic Acid 7.60 H* Calcium Phosphorus Magnesium Direct Bilirubin AST ALT C-Reactive Protein Total Protein Albumin Urine WBC (Auto) Salicylates Acetaminophen Heparin-induced Plt Ab 11/06/18 11/06/18 11/06/18 17:34 19:30 19:30 WBC RBC Hgb Hct MCV MCHC RDW Plt Count Lymph % (Auto) Taylor % (Auto) Lymph # Taylor # Seg Neutrophils % Seg Neuts % (Manual) Lymphocytes % (Manual) Monocytes % (Manual) Nucleated RBC % Seg Neutrophils # Seg Neutrophils # Man Lymphocytes # (Manual) Monocytes # (Manual) POC ABG pH POC ABG pCO2 POC ABG pO2 VBG pH Sodium Potassium 5.5 H Chloride 97.4 L 97.7 L Carbon Dioxide 10 L 11 L BUN 88 H 87 H Creatinine 7.5 H 7.6 H Glucose 1054 H* 954 H* POC Glucose Hemoglobin A1c Lactic Acid Calcium 7.7 L 7.4 L Phosphorus Magnesium Direct Bilirubin AST ALT C-Reactive Protein 1.90 H Total Protein Albumin Urine WBC (Auto) Salicylates Acetaminophen Heparin-induced Plt Ab 11/06/18 11/06/18 11/06/18 20:31 20:40 20:40 WBC RBC Hgb Hct MCV MCHC RDW Plt Count Lymph % (Auto) Taylor % (Auto) Lymph # Taylor # Seg Neutrophils % Seg Neuts % (Manual) Lymphocytes % (Manual) Monocytes % (Manual) Nucleated RBC % Seg Neutrophils # Seg Neutrophils # Man Lymphocytes # (Manual) Monocytes # (Manual) POC ABG pH 7.245 L POC ABG pCO2 POC ABG pO2 132 H VBG pH Sodium Potassium Chloride Carbon Dioxide BUN Creatinine Glucose 907 H* POC Glucose Hemoglobin A1c Lactic Acid 4.40 H* Calcium Phosphorus Magnesium Direct Bilirubin AST ALT C-Reactive Protein Total Protein Albumin Urine WBC (Auto) Salicylates Acetaminophen Heparin-induced Plt Ab 11/06/18 11/06/18 11/06/18 22:05 22:40 23:35 WBC RBC Hgb Hct MCV MCHC RDW Plt Count Lymph % (Auto) Taylor % (Auto) Lymph # Taylor # Seg Neutrophils % Seg Neuts % (Manual) Lymphocytes % (Manual) Monocytes % (Manual) Nucleated RBC % Seg Neutrophils # Seg Neutrophils # Man Lymphocytes # (Manual) Monocytes # (Manual) POC ABG pH POC ABG pCO2 POC ABG pO2 VBG pH Sodium Potassium Chloride Carbon Dioxide 13 L BUN 86 H Creatinine 7.8 H Glucose 822 H* 726 H* POC Glucose Hemoglobin A1c Lactic Acid 3.40 H* Calcium 7.5 L Phosphorus Magnesium Direct Bilirubin AST ALT C-Reactive Protein Total Protein Albumin Urine WBC (Auto) Salicylates Acetaminophen Heparin-induced Plt Ab 11/07/18 11/07/18 11/07/18 01:25 01:26 03:15 WBC RBC Hgb Hct MCV MCHC RDW Plt Count Lymph % (Auto) Taylor % (Auto) Lymph # Taylor # Seg Neutrophils % Seg Neuts % (Manual) Lymphocytes % (Manual) Monocytes % (Manual) Nucleated RBC % Seg Neutrophils # Seg Neutrophils # Man Lymphocytes # (Manual) Monocytes # (Manual) POC ABG pH POC ABG pCO2 POC ABG pO2 VBG pH Sodium Potassium Chloride Carbon Dioxide BUN Creatinine Glucose 602 H* POC Glucose > 500 H > 500 H Hemoglobin A1c Lactic Acid Calcium Phosphorus Magnesium Direct Bilirubin AST ALT C-Reactive Protein Total Protein Albumin Urine WBC (Auto) Salicylates Acetaminophen Heparin-induced Plt Ab 11/07/18 11/07/18 11/07/18 03:20 04:32 04:47 WBC RBC Hgb Hct MCV MCHC RDW Plt Count Lymph % (Auto) Taylor % (Auto) Lymph # Taylor # Seg Neutrophils % Seg Neuts % (Manual) Lymphocytes % (Manual) Monocytes % (Manual) Nucleated RBC % Seg Neutrophils # Seg Neutrophils # Man Lymphocytes # (Manual) Monocytes # (Manual) POC ABG pH POC ABG pCO2 30.3 L POC ABG pO2 153 H VBG pH Sodium 149 H Potassium Chloride Carbon Dioxide 16 L BUN 86 H Creatinine 8.3 H Glucose 499.2 H POC Glucose 360 H Hemoglobin A1c Lactic Acid Calcium 7.6 L Phosphorus Magnesium Direct Bilirubin AST ALT C-Reactive Protein Total Protein Albumin Urine WBC (Auto) Salicylates Acetaminophen Heparin-induced Plt Ab 11/07/18 11/07/18 11/07/18 05:26 06:35 06:36 WBC RBC Hgb Hct MCV MCHC RDW Plt Count Lymph % (Auto) Taylor % (Auto) Lymph # Taylor # Seg Neutrophils % Seg Neuts % (Manual) Lymphocytes % (Manual) Monocytes % (Manual) Nucleated RBC % Seg Neutrophils # Seg Neutrophils # Man Lymphocytes # (Manual) Monocytes # (Manual) POC ABG pH POC ABG pCO2 POC ABG pO2 VBG pH Sodium 153 H Potassium 3.2 L Chloride 109.7 H Carbon Dioxide BUN 84 H Creatinine 8.6 H Glucose 249 H POC Glucose 341 H 274 H Hemoglobin A1c Lactic Acid Calcium 7.6 L Phosphorus Magnesium Direct Bilirubin AST ALT C-Reactive Protein Total Protein Albumin Urine WBC (Auto) Salicylates Acetaminophen Heparin-induced Plt Ab 11/07/18 11/07/18 11/07/18 07:33 09:00 09:52 WBC RBC Hgb Hct MCV MCHC RDW Plt Count Lymph % (Auto) Taylor % (Auto) Lymph # Taylor # Seg Neutrophils % Seg Neuts % (Manual) Lymphocytes % (Manual) Monocytes % (Manual) Nucleated RBC % Seg Neutrophils # Seg Neutrophils # Man Lymphocytes # (Manual) Monocytes # (Manual) POC ABG pH POC ABG pCO2 POC ABG pO2 VBG pH Sodium Potassium Chloride Carbon Dioxide BUN Creatinine Glucose POC Glucose 243 H 182 H 227 H Hemoglobin A1c Lactic Acid Calcium Phosphorus Magnesium Direct Bilirubin AST ALT C-Reactive Protein Total Protein Albumin Urine WBC (Auto) Salicylates Acetaminophen Heparin-induced Plt Ab 11/07/18 11/07/18 11/07/18 10:50 10:50 10:50 WBC 11.3 H RBC 2.85 L Hgb 8.7 L Hct 25.3 L D MCV MCHC RDW Plt Count Lymph % (Auto) 9.7 L Taylor % (Auto) Lymph # 1.1 L Taylor # Seg Neutrophils % 83.3 H Seg Neuts % (Manual) Lymphocytes % (Manual) Monocytes % (Manual) Nucleated RBC % Seg Neutrophils # 9.4 H Seg Neutrophils # Man Lymphocytes # (Manual) Monocytes # (Manual) POC ABG pH POC ABG pCO2 POC ABG pO2 VBG pH Sodium 154 H Potassium 3.2 L Chloride 110.2 H Carbon Dioxide BUN 82 H Creatinine 8.3 H Glucose 186 H POC Glucose 200 H Hemoglobin A1c Lactic Acid Calcium 7.3 L Phosphorus Magnesium Direct Bilirubin AST ALT C-Reactive Protein Total Protein Albumin Urine WBC (Auto) Salicylates Acetaminophen Heparin-induced Plt Ab 11/07/18 11/07/18 11/07/18 12:00 12:05 13:13 WBC RBC Hgb Hct MCV MCHC RDW Plt Count Lymph % (Auto) Taylor % (Auto) Lymph # Taylor # Seg Neutrophils % Seg Neuts % (Manual) Lymphocytes % (Manual) Monocytes % (Manual) Nucleated RBC % Seg Neutrophils # Seg Neutrophils # Man Lymphocytes # (Manual) Monocytes # (Manual) POC ABG pH POC ABG pCO2 POC ABG pO2 VBG pH Sodium Potassium Chloride Carbon Dioxide BUN Creatinine Glucose POC Glucose 179 H 190 H Hemoglobin A1c Lactic Acid 2.50 H* Calcium Phosphorus Magnesium Direct Bilirubin AST ALT C-Reactive Protein Total Protein Albumin Urine WBC (Auto) Salicylates Acetaminophen Heparin-induced Plt Ab 11/07/18 11/07/18 11/07/18 13:20 14:05 15:18 WBC RBC Hgb Hct MCV MCHC RDW Plt Count Lymph % (Auto) Taylor % (Auto) Lymph # Taylor # Seg Neutrophils % Seg Neuts % (Manual) Lymphocytes % (Manual) Monocytes % (Manual) Nucleated RBC % Seg Neutrophils # Seg Neutrophils # Man Lymphocytes # (Manual) Monocytes # (Manual) POC ABG pH POC ABG pCO2 POC ABG pO2 VBG pH Sodium Potassium 3.1 L Chloride Carbon Dioxide BUN 50 H Creatinine 5.0 H Glucose 176 H POC Glucose 189 H 215 H Hemoglobin A1c Lactic Acid Calcium 7.4 L Phosphorus Magnesium Direct Bilirubin AST ALT C-Reactive Protein Total Protein Albumin Urine WBC (Auto) Salicylates Acetaminophen Heparin-induced Plt Ab 11/07/18 11/07/18 11/07/18 16:25 17:37 23:23 WBC RBC Hgb Hct MCV MCHC RDW Plt Count Lymph % (Auto) Taylor % (Auto) Lymph # Taylor # Seg Neutrophils % Seg Neuts % (Manual) Lymphocytes % (Manual) Monocytes % (Manual) Nucleated RBC % Seg Neutrophils # Seg Neutrophils # Man Lymphocytes # (Manual) Monocytes # (Manual) POC ABG pH POC ABG pCO2 POC ABG pO2 VBG pH Sodium Potassium Chloride Carbon Dioxide BUN Creatinine Glucose POC Glucose 180 H 215 H 234 H Hemoglobin A1c Lactic Acid Calcium Phosphorus Magnesium Direct Bilirubin AST ALT C-Reactive Protein Total Protein Albumin Urine WBC (Auto) Salicylates Acetaminophen Heparin-induced Plt Ab 11/08/18 11/08/18 11/08/18 04:17 04:23 04:23 WBC RBC 2.98 L Hgb 9.3 L Hct 26.7 L MCV MCHC 35 H RDW Plt Count 130 L Lymph % (Auto) Taylor % (Auto) Lymph # Taylor # Seg Neutrophils % 80.3 H Seg Neuts % (Manual) Lymphocytes % (Manual) Monocytes % (Manual) Nucleated RBC % Seg Neutrophils # 7.8 H Seg Neutrophils # Man Lymphocytes # (Manual) Monocytes # (Manual) POC ABG pH 7.520 H POC ABG pCO2 POC ABG pO2 111 H VBG pH Sodium Potassium 3.0 L Chloride Carbon Dioxide BUN 44 H Creatinine 6.3 H Glucose 245 H POC Glucose Hemoglobin A1c Lactic Acid Calcium 7.3 L Phosphorus Magnesium Direct Bilirubin AST ALT C-Reactive Protein Total Protein Albumin Urine WBC (Auto) Salicylates Acetaminophen Heparin-induced Plt Ab 11/08/18 11/08/18 11/08/18 05:19 08:00 08:00 WBC RBC Hgb Hct MCV MCHC RDW Plt Count Lymph % (Auto) Taylor % (Auto) Lymph # Taylor # Seg Neutrophils % Seg Neuts % (Manual) Lymphocytes % (Manual) Monocytes % (Manual) Nucleated RBC % Seg Neutrophils # Seg Neutrophils # Man Lymphocytes # (Manual) Monocytes # (Manual) POC ABG pH POC ABG pCO2 POC ABG pO2 VBG pH Sodium Potassium Chloride Carbon Dioxide BUN Creatinine Glucose POC Glucose 253 H Hemoglobin A1c Lactic Acid 2.70 H* Calcium Phosphorus Magnesium Direct Bilirubin 0.3 H AST 932 H ALT 582 H C-Reactive Protein Total Protein 5.4 L Albumin 2.6 L Urine WBC (Auto) Salicylates Acetaminophen Heparin-induced Plt Ab 11/08/18 11/08/18 11/08/18 11:36 17:51 21:59 WBC RBC Hgb Hct MCV MCHC RDW Plt Count Lymph % (Auto) Taylor % (Auto) Lymph # Taylor # Seg Neutrophils % Seg Neuts % (Manual) Lymphocytes % (Manual) Monocytes % (Manual) Nucleated RBC % Seg Neutrophils # Seg Neutrophils # Man Lymphocytes # (Manual) Monocytes # (Manual) POC ABG pH 7.459 H POC ABG pCO2 POC ABG pO2 108 H VBG pH Sodium Potassium Chloride Carbon Dioxide BUN Creatinine Glucose POC Glucose 197 H Hemoglobin A1c Lactic Acid Calcium Phosphorus Magnesium Direct Bilirubin AST ALT C-Reactive Protein Total Protein Albumin Urine WBC (Auto) Salicylates Acetaminophen Heparin-induced Plt Ab Positive H 11/08/18 11/09/18 11/09/18 23:28 00:39 02:20 WBC RBC Hgb Hct MCV MCHC RDW Plt Count Lymph % (Auto) Taylor % (Auto) Lymph # Taylor # Seg Neutrophils % Seg Neuts % (Manual) Lymphocytes % (Manual) Monocytes % (Manual) Nucleated RBC % Seg Neutrophils # Seg Neutrophils # Man Lymphocytes # (Manual) Monocytes # (Manual) POC ABG pH POC ABG pCO2 POC ABG pO2 VBG pH Sodium Potassium Chloride Carbon Dioxide BUN Creatinine Glucose POC Glucose 418 H 471 H 254 H Hemoglobin A1c Lactic Acid Calcium Phosphorus Magnesium Direct Bilirubin AST ALT C-Reactive Protein Total Protein Albumin Urine WBC (Auto) Salicylates Acetaminophen Heparin-induced Plt Ab 11/09/18 11/09/18 11/09/18 03:48 06:02 06:02 WBC RBC 2.95 L Hgb 9.2 L Hct 26.7 L MCV MCHC RDW Plt Count 101 L Lymph % (Auto) Taylor % (Auto) Lymph # Taylor # Seg Neutrophils % Seg Neuts % (Manual) Lymphocytes % (Manual) Monocytes % (Manual) Nucleated RBC % Seg Neutrophils # Seg Neutrophils # Man Lymphocytes # (Manual) Monocytes # (Manual) POC ABG pH POC ABG pCO2 POC ABG pO2 108 H VBG pH Sodium 150 H Potassium Chloride 108.3 H Carbon Dioxide BUN 44 H Creatinine 7.7 H Glucose 102 H POC Glucose Hemoglobin A1c Lactic Acid Calcium 7.2 L Phosphorus Magnesium Direct Bilirubin AST 554 H ALT 461 H C-Reactive Protein Total Protein 5.1 L Albumin 2.6 L Urine WBC (Auto) Salicylates Acetaminophen Heparin-induced Plt Ab 11/09/18 11/09/18 11/09/18 17:49 18:49 23:32 WBC RBC Hgb Hct MCV MCHC RDW Plt Count Lymph % (Auto) Taylor % (Auto) Lymph # Taylor # Seg Neutrophils % Seg Neuts % (Manual) Lymphocytes % (Manual) Monocytes % (Manual) Nucleated RBC % Seg Neutrophils # Seg Neutrophils # Man Lymphocytes # (Manual) Monocytes # (Manual) POC ABG pH POC ABG pCO2 46.2 H POC ABG pO2 VBG pH Sodium Potassium Chloride Carbon Dioxide BUN Creatinine Glucose POC Glucose 184 H 150 H Hemoglobin A1c Lactic Acid Calcium Phosphorus Magnesium Direct Bilirubin AST ALT C-Reactive Protein Total Protein Albumin Urine WBC (Auto) Salicylates Acetaminophen Heparin-induced Plt Ab 11/10/18 11/10/18 11/10/18 02:52 05:00 05:00 WBC RBC 2.95 L Hgb 8.9 L Hct 26.6 L MCV MCHC RDW Plt Count 100 L Lymph % (Auto) Taylor % (Auto) Lymph # Taylor # Seg Neutrophils % Seg Neuts % (Manual) Lymphocytes % (Manual) Monocytes % (Manual) 8.0 H Nucleated RBC % Seg Neutrophils # Seg Neutrophils # Man Lymphocytes # (Manual) Monocytes # (Manual) POC ABG pH POC ABG pCO2 POC ABG pO2 VBG pH Sodium Potassium Chloride Carbon Dioxide BUN 33 H Creatinine 6.8 H Glucose 251 H POC Glucose 186 H Hemoglobin A1c Lactic Acid Calcium 7.3 L Phosphorus Magnesium Direct Bilirubin AST ALT C-Reactive Protein Total Protein Albumin Urine WBC (Auto) Salicylates Acetaminophen Heparin-induced Plt Ab 11/10/18 11/10/18 11/10/18 05:16 11:47 17:32 WBC RBC Hgb Hct MCV MCHC RDW Plt Count Lymph % (Auto) Taylor % (Auto) Lymph # Taylor # Seg Neutrophils % Seg Neuts % (Manual) Lymphocytes % (Manual) Monocytes % (Manual) Nucleated RBC % Seg Neutrophils # Seg Neutrophils # Man Lymphocytes # (Manual) Monocytes # (Manual) POC ABG pH POC ABG pCO2 POC ABG pO2 VBG pH Sodium Potassium Chloride Carbon Dioxide BUN Creatinine Glucose POC Glucose 242 H 261 H 194 H Hemoglobin A1c Lactic Acid Calcium Phosphorus Magnesium Direct Bilirubin AST ALT C-Reactive Protein Total Protein Albumin Urine WBC (Auto) Salicylates Acetaminophen Heparin-induced Plt Ab 11/10/18 11/11/18 11/11/18 23:39 00:26 04:24 WBC RBC 2.98 L Hgb 9.1 L Hct 27.4 L MCV MCHC RDW Plt Count 114 L Lymph % (Auto) Taylor % (Auto) Lymph # Taylor # Seg Neutrophils % Seg Neuts % (Manual) Lymphocytes % (Manual) Monocytes % (Manual) 10.0 H Nucleated RBC % Seg Neutrophils # Seg Neutrophils # Man Lymphocytes # (Manual) Monocytes # (Manual) 1.0 H POC ABG pH POC ABG pCO2 POC ABG pO2 VBG pH Sodium Potassium Chloride Carbon Dioxide BUN Creatinine Glucose POC Glucose 60 L 124 H Hemoglobin A1c Lactic Acid Calcium Phosphorus Magnesium Direct Bilirubin AST ALT C-Reactive Protein Total Protein Albumin Urine WBC (Auto) Salicylates Acetaminophen Heparin-induced Plt Ab 11/11/18 11/11/18 11/11/18 04:24 05:27 05:31 WBC RBC Hgb Hct MCV MCHC RDW Plt Count Lymph % (Auto) Taylor % (Auto) Lymph # Taylor # Seg Neutrophils % Seg Neuts % (Manual) Lymphocytes % (Manual) Monocytes % (Manual) Nucleated RBC % Seg Neutrophils # Seg Neutrophils # Man Lymphocytes # (Manual) Monocytes # (Manual) POC ABG pH POC ABG pCO2 48.8 H POC ABG pO2 109 H VBG pH Sodium Potassium Chloride Carbon Dioxide BUN 23 H Creatinine 5.5 H Glucose 147 H POC Glucose 172 H Hemoglobin A1c Lactic Acid Calcium 7.9 L Phosphorus Magnesium Direct Bilirubin AST 152 H ALT 247 H C-Reactive Protein Total Protein Albumin 2.3 L Urine WBC (Auto) Salicylates Acetaminophen Heparin-induced Plt Ab 11/11/18 11/11/18 11/11/18 12:11 17:12 23:41 WBC RBC Hgb Hct MCV MCHC RDW Plt Count Lymph % (Auto) Taylor % (Auto) Lymph # Taylor # Seg Neutrophils % Seg Neuts % (Manual) Lymphocytes % (Manual) Monocytes % (Manual) Nucleated RBC % Seg Neutrophils # Seg Neutrophils # Man Lymphocytes # (Manual) Monocytes # (Manual) POC ABG pH POC ABG pCO2 POC ABG pO2 VBG pH Sodium Potassium Chloride Carbon Dioxide BUN Creatinine Glucose POC Glucose 343 H 188 H 145 H Hemoglobin A1c Lactic Acid Calcium Phosphorus Magnesium Direct Bilirubin AST ALT C-Reactive Protein Total Protein Albumin Urine WBC (Auto) Salicylates Acetaminophen Heparin-induced Plt Ab 11/12/18 11/12/18 11/12/18 00:11 04:44 04:44 WBC RBC 2.91 L Hgb 9.0 L Hct 26.9 L MCV MCHC RDW Plt Count Lymph % (Auto) 12.7 L Taylor % (Auto) 14.9 H Lymph # 0.8 L Taylor # 1.0 H Seg Neutrophils % 71.2 H Seg Neuts % (Manual) Lymphocytes % (Manual) Monocytes % (Manual) Nucleated RBC % Seg Neutrophils # Seg Neutrophils # Man Lymphocytes # (Manual) Monocytes # (Manual) POC ABG pH POC ABG pCO2 POC ABG pO2 VBG pH Sodium Potassium Chloride Carbon Dioxide BUN 22 H Creatinine 5.0 H Glucose 288 H POC Glucose 151 H Hemoglobin A1c Lactic Acid Calcium Phosphorus Magnesium Direct Bilirubin AST 88 H ALT 187 H C-Reactive Protein Total Protein Albumin 2.9 L Urine WBC (Auto) Salicylates Acetaminophen Heparin-induced Plt Ab 11/12/18 11/12/18 11/12/18 11:48 12:28 17:13 WBC RBC Hgb Hct MCV MCHC RDW Plt Count Lymph % (Auto) Taylor % (Auto) Lymph # Taylor # Seg Neutrophils % Seg Neuts % (Manual) Lymphocytes % (Manual) Monocytes % (Manual) Nucleated RBC % Seg Neutrophils # Seg Neutrophils # Man Lymphocytes # (Manual) Monocytes # (Manual) POC ABG pH POC ABG pCO2 POC ABG pO2 VBG pH Sodium Potassium Chloride Carbon Dioxide BUN Creatinine Glucose POC Glucose 414 H 437 H 251 H Hemoglobin A1c Lactic Acid Calcium Phosphorus Magnesium Direct Bilirubin AST ALT C-Reactive Protein Total Protein Albumin Urine WBC (Auto) Salicylates Acetaminophen Heparin-induced Plt Ab 11/13/18 11/13/18 11/13/18 00:43 04:14 04:14 WBC RBC 2.62 L Hgb 8.0 L Hct 24.0 L MCV MCHC RDW Plt Count Lymph % (Auto) Taylor % (Auto) 15.8 H Lymph # Taylor # 0.9 H Seg Neutrophils % Seg Neuts % (Manual) Lymphocytes % (Manual) Monocytes % (Manual) Nucleated RBC % Seg Neutrophils # Seg Neutrophils # Man Lymphocytes # (Manual) Monocytes # (Manual) POC ABG pH POC ABG pCO2 POC ABG pO2 VBG pH Sodium Potassium Chloride Carbon Dioxide BUN 32 H Creatinine 6.9 H Glucose 190 H POC Glucose 149 H Hemoglobin A1c Lactic Acid Calcium Phosphorus Magnesium Direct Bilirubin AST ALT C-Reactive Protein Total Protein Albumin Urine WBC (Auto) Salicylates Acetaminophen Heparin-induced Plt Ab 11/13/18 11/13/18 11/13/18 05:53 10:40 12:05 WBC RBC Hgb Hct MCV MCHC RDW Plt Count Lymph % (Auto) Taylor % (Auto) Lymph # Taylor # Seg Neutrophils % Seg Neuts % (Manual) Lymphocytes % (Manual) Monocytes % (Manual) Nucleated RBC % Seg Neutrophils # Seg Neutrophils # Man Lymphocytes # (Manual) Monocytes # (Manual) POC ABG pH POC ABG pCO2 POC ABG pO2 VBG pH Sodium Potassium Chloride Carbon Dioxide BUN Creatinine Glucose POC Glucose 270 H 405 H 361 H Hemoglobin A1c Lactic Acid Calcium Phosphorus Magnesium Direct Bilirubin AST ALT C-Reactive Protein Total Protein Albumin Urine WBC (Auto) Salicylates Acetaminophen Heparin-induced Plt Ab 11/13/18 11/13/18 11/14/18 18:48 23:55 04:57 WBC RBC 2.75 L Hgb 8.3 L Hct 25.2 L MCV MCHC RDW Plt Count Lymph % (Auto) Taylor % (Auto) 15.8 H Lymph # 0.9 L Taylor # 0.9 H Seg Neutrophils % Seg Neuts % (Manual) Lymphocytes % (Manual) Monocytes % (Manual) Nucleated RBC % Seg Neutrophils # Seg Neutrophils # Man Lymphocytes # (Manual) Monocytes # (Manual) POC ABG pH POC ABG pCO2 POC ABG pO2 VBG pH Sodium Potassium Chloride Carbon Dioxide BUN Creatinine Glucose POC Glucose 202 H 254 H Hemoglobin A1c Lactic Acid Calcium Phosphorus Magnesium Direct Bilirubin AST ALT C-Reactive Protein Total Protein Albumin Urine WBC (Auto) Salicylates Acetaminophen Heparin-induced Plt Ab 11/14/18 11/14/18 11/14/18 04:57 05:33 11:37 WBC RBC Hgb Hct MCV MCHC RDW Plt Count Lymph % (Auto) Taylor % (Auto) Lymph # Taylor # Seg Neutrophils % Seg Neuts % (Manual) Lymphocytes % (Manual) Monocytes % (Manual) Nucleated RBC % Seg Neutrophils # Seg Neutrophils # Man Lymphocytes # (Manual) Monocytes # (Manual) POC ABG pH POC ABG pCO2 POC ABG pO2 VBG pH Sodium 136 L Potassium Chloride 96.7 L Carbon Dioxide BUN 25 H Creatinine 5.3 H Glucose 235 H POC Glucose 242 H 272 H Hemoglobin A1c Lactic Acid Calcium Phosphorus Magnesium Direct Bilirubin AST ALT C-Reactive Protein Total Protein Albumin Urine WBC (Auto) Salicylates Acetaminophen Heparin-induced Plt Ab 11/14/18 11/14/18 11/15/18 18:08 23:21 04:50 WBC RBC 2.76 L Hgb 8.5 L Hct 25.4 L MCV MCHC RDW Plt Count Lymph % (Auto) Taylor % (Auto) 14.5 H Lymph # Taylor # 1.1 H Seg Neutrophils % Seg Neuts % (Manual) Lymphocytes % (Manual) Monocytes % (Manual) Nucleated RBC % Seg Neutrophils # Seg Neutrophils # Man Lymphocytes # (Manual) Monocytes # (Manual) POC ABG pH POC ABG pCO2 POC ABG pO2 VBG pH Sodium Potassium Chloride Carbon Dioxide BUN Creatinine Glucose POC Glucose 166 H 185 H Hemoglobin A1c Lactic Acid Calcium Phosphorus Magnesium Direct Bilirubin AST ALT C-Reactive Protein Total Protein Albumin Urine WBC (Auto) Salicylates Acetaminophen Heparin-induced Plt Ab 11/15/18 11/15/18 11/15/18 04:50 04:50 06:01 WBC RBC Hgb Hct MCV MCHC RDW Plt Count Lymph % (Auto) Taylor % (Auto) Lymph # Taylor # Seg Neutrophils % Seg Neuts % (Manual) Lymphocytes % (Manual) Monocytes % (Manual) Nucleated RBC % Seg Neutrophils # Seg Neutrophils # Man Lymphocytes # (Manual) Monocytes # (Manual) POC ABG pH POC ABG pCO2 POC ABG pO2 VBG pH Sodium Potassium Chloride 95.2 L Carbon Dioxide BUN 21 H Creatinine 4.8 H Glucose 126 H POC Glucose 150 H Hemoglobin A1c 10.1 H Lactic Acid Calcium Phosphorus Magnesium Direct Bilirubin AST ALT 69 H C-Reactive Protein Total Protein Albumin 2.7 L Urine WBC (Auto) Salicylates Acetaminophen Heparin-induced Plt Ab 11/15/18 11/15/18 11/16/18 13:06 18:08 00:39 WBC RBC Hgb Hct MCV MCHC RDW Plt Count Lymph % (Auto) Taylor % (Auto) Lymph # Taylor # Seg Neutrophils % Seg Neuts % (Manual) Lymphocytes % (Manual) Monocytes % (Manual) Nucleated RBC % Seg Neutrophils # Seg Neutrophils # Man Lymphocytes # (Manual) Monocytes # (Manual) POC ABG pH POC ABG pCO2 POC ABG pO2 VBG pH Sodium Potassium Chloride Carbon Dioxide BUN Creatinine Glucose POC Glucose 191 H 114 H 147 H Hemoglobin A1c Lactic Acid Calcium Phosphorus Magnesium Direct Bilirubin AST ALT C-Reactive Protein Total Protein Albumin Urine WBC (Auto) Salicylates Acetaminophen Heparin-induced Plt Ab 11/16/18 11/16/18 11/16/18 04:49 04:49 06:09 WBC RBC 2.60 L Hgb 8.0 L Hct 23.4 L MCV MCHC RDW Plt Count Lymph % (Auto) Taylor % (Auto) 14.1 H Lymph # Taylor # 1.2 H Seg Neutrophils % Seg Neuts % (Manual) Lymphocytes % (Manual) Monocytes % (Manual) Nucleated RBC % Seg Neutrophils # Seg Neutrophils # Man Lymphocytes # (Manual) Monocytes # (Manual) POC ABG pH POC ABG pCO2 POC ABG pO2 VBG pH Sodium 136 L Potassium Chloride 94.1 L Carbon Dioxide BUN 39 H Creatinine 7.4 H D Glucose 243 H POC Glucose 308 H Hemoglobin A1c Lactic Acid Calcium 8.3 L Phosphorus Magnesium Direct Bilirubin AST ALT C-Reactive Protein Total Protein Albumin 2.2 L Urine WBC (Auto) Salicylates Acetaminophen Heparin-induced Plt Ab 11/16/18 11/16/18 11/16/18 08:52 11:53 17:11 WBC RBC Hgb Hct MCV MCHC RDW Plt Count Lymph % (Auto) Taylor % (Auto) Lymph # Taylor # Seg Neutrophils % Seg Neuts % (Manual) Lymphocytes % (Manual) Monocytes % (Manual) Nucleated RBC % Seg Neutrophils # Seg Neutrophils # Man Lymphocytes # (Manual) Monocytes # (Manual) POC ABG pH POC ABG pCO2 POC ABG pO2 VBG pH Sodium Potassium Chloride Carbon Dioxide BUN Creatinine Glucose POC Glucose 278 H 178 H 173 H Hemoglobin A1c Lactic Acid Calcium Phosphorus Magnesium Direct Bilirubin AST ALT C-Reactive Protein Total Protein Albumin Urine WBC (Auto) Salicylates Acetaminophen Heparin-induced Plt Ab 11/16/18 11/17/18 11/17/18 21:27 00:08 04:45 WBC RBC 2.58 L Hgb 7.9 L Hct 23.5 L MCV MCHC RDW Plt Count Lymph % (Auto) Taylor % (Auto) 10.3 H Lymph # Taylor # 1.1 H Seg Neutrophils % 74.8 H Seg Neuts % (Manual) Lymphocytes % (Manual) Monocytes % (Manual) Nucleated RBC % Seg Neutrophils # Seg Neutrophils # Man Lymphocytes # (Manual) Monocytes # (Manual) POC ABG pH POC ABG pCO2 POC ABG pO2 VBG pH Sodium Potassium Chloride Carbon Dioxide BUN Creatinine Glucose POC Glucose 206 H 151 H Hemoglobin A1c Lactic Acid Calcium Phosphorus Magnesium Direct Bilirubin AST ALT C-Reactive Protein Total Protein Albumin Urine WBC (Auto) Salicylates Acetaminophen Heparin-induced Plt Ab 11/17/18 11/17/18 11/17/18 04:45 05:12 05:31 WBC RBC Hgb Hct MCV MCHC RDW Plt Count Lymph % (Auto) Taylor % (Auto) Lymph # Taylor # Seg Neutrophils % Seg Neuts % (Manual) Lymphocytes % (Manual) Monocytes % (Manual) Nucleated RBC % Seg Neutrophils # Seg Neutrophils # Man Lymphocytes # (Manual) Monocytes # (Manual) POC ABG pH 7.481 H POC ABG pCO2 POC ABG pO2 VBG pH Sodium 136 L Potassium Chloride 94.4 L Carbon Dioxide BUN 38 H Creatinine 6.8 H Glucose POC Glucose 111 H Hemoglobin A1c Lactic Acid Calcium Phosphorus Magnesium 2.40 H Direct Bilirubin AST ALT C-Reactive Protein Total Protein Albumin Urine WBC (Auto) Salicylates Acetaminophen Heparin-induced Plt Ab 11/17/18 11/17/18 11/18/18 12:10 23:23 04:24 WBC RBC 2.66 L Hgb 8.2 L Hct 24.0 L MCV MCHC RDW Plt Count 448 H Lymph % (Auto) Taylor % (Auto) 12.7 H Lymph # Taylor # 1.4 H Seg Neutrophils % 71.9 H Seg Neuts % (Manual) Lymphocytes % (Manual) Monocytes % (Manual) Nucleated RBC % Seg Neutrophils # Seg Neutrophils # Man Lymphocytes # (Manual) Monocytes # (Manual) POC ABG pH POC ABG pCO2 POC ABG pO2 VBG pH Sodium Potassium Chloride Carbon Dioxide BUN Creatinine Glucose POC Glucose 174 H 243 H Hemoglobin A1c Lactic Acid Calcium Phosphorus Magnesium Direct Bilirubin AST ALT C-Reactive Protein Total Protein Albumin Urine WBC (Auto) Salicylates Acetaminophen Heparin-induced Plt Ab 11/18/18 11/18/18 11/18/18 04:24 05:26 11:48 WBC RBC Hgb Hct MCV MCHC RDW Plt Count Lymph % (Auto) Taylor % (Auto) Lymph # Taylor # Seg Neutrophils % Seg Neuts % (Manual) Lymphocytes % (Manual) Monocytes % (Manual) Nucleated RBC % Seg Neutrophils # Seg Neutrophils # Man Lymphocytes # (Manual) Monocytes # (Manual) POC ABG pH POC ABG pCO2 POC ABG pO2 VBG pH Sodium 136 L Potassium Chloride 93.1 L Carbon Dioxide BUN 30 H Creatinine 5.9 H Glucose 211 H POC Glucose 205 H 162 H Hemoglobin A1c Lactic Acid Calcium Phosphorus Magnesium Direct Bilirubin AST ALT C-Reactive Protein Total Protein Albumin Urine WBC (Auto) Salicylates Acetaminophen Heparin-induced Plt Ab 11/18/18 11/18/18 11/18/18 12:01 19:37 23:21 WBC RBC Hgb Hct MCV MCHC RDW Plt Count Lymph % (Auto) Taylor % (Auto) Lymph # Taylor # Seg Neutrophils % Seg Neuts % (Manual) Lymphocytes % (Manual) Monocytes % (Manual) Nucleated RBC % Seg Neutrophils # Seg Neutrophils # Man Lymphocytes # (Manual) Monocytes # (Manual) POC ABG pH POC ABG pCO2 POC ABG pO2 VBG pH Sodium Potassium Chloride Carbon Dioxide BUN Creatinine Glucose POC Glucose 207 H 245 H Hemoglobin A1c Lactic Acid Calcium Phosphorus Magnesium Direct Bilirubin AST ALT C-Reactive Protein Total Protein Albumin Urine WBC (Auto) > 182.0 H Salicylates Acetaminophen Heparin-induced Plt Ab 11/19/18 11/19/18 04:24 05:21 WBC RBC Hgb Hct MCV MCHC RDW Plt Count Lymph % (Auto) Taylor % (Auto) Lymph # Taylor # Seg Neutrophils % Seg Neuts % (Manual) Lymphocytes % (Manual) Monocytes % (Manual) Nucleated RBC % Seg Neutrophils # Seg Neutrophils # Man Lymphocytes # (Manual) Monocytes # (Manual) POC ABG pH POC ABG pCO2 POC ABG pO2 VBG pH Sodium 134 L Potassium 5.4 H Chloride 89.8 L Carbon Dioxide BUN 54 H Creatinine 8.0 H Glucose 240 H POC Glucose 234 H Hemoglobin A1c Lactic Acid Calcium Phosphorus Magnesium Direct Bilirubin AST ALT C-Reactive Protein Total Protein Albumin Urine WBC (Auto) Salicylates Acetaminophen Heparin-induced Plt Ab Allied health notes reviewed: RT (Daily weaning trials as tolerated)
[2018-11-19] MEDS: FLOMAX PO SCH (09:13)
[2018-11-19] MEDS: KEPPRA PO SCH ×2 (09:13→21:23)
[2018-11-19] MEDS: PREVACID SOLUTAB FEEDTUBE SCH ×2 (09:13→21:23)
[2018-11-19] MEDS: PROVIGIL PO SCH (09:14)
[2018-11-19] MEDS: PROCRIT IV PRN (10:11)
[2018-11-19] MEDS ORDERED: ROCEPHIN/NS 1 GM/50 ML 1 GM/50 ML BAG IV SCH (12:00)
--- NOTE | 2018-11-19 12:15 | Progress Note ---
Assessment and Plan Patient is awake. He has spontaneous blinking. Pupils react to light. Her spontaneous eye movement. Continues to be verbally unresponsive. Eyes are open but does not make any eye contact. No spontaneous movement of the extremities. Generalized hyporeflexia. Patient did not have any recurrence of seizures since he has been on Keppra 750 mg twice a day. Today's lab shows evidence of UTI. Talked with the hospitalist, she is planning to start antibiotics. Patient's BUN and creatinine is is high getting dialysis.. We'll get PEG tube and trach today. Talked with her mother in detail about the patient's prognosis. Recommendation.. #1. Avoid all sedation unless absolutely necessary as it will help him wean off ventilator #2. Continue supportive care. Subjective Principal diagnosis: Ac hypoxemic resp failure; DKA; Severe sepsis with shock; ESRD on dialysis Objective - Vital Sign Vital Signs - 12hr 11/19/18 11/19/18 11/19/18 00:30 01:00 01:30 Temperature Pulse Rate 99 H 96 H 95 H Pulse Rate [ From Monitor] Respiratory 20 20 20 Rate Blood Pressure 151/81 145/74 145/78 O2 Sat by Pulse 100 99 100 Oximetry O2 Sat by Pulse Oximetry [ Anterior Bilateral Throughout] 11/19/18 11/19/18 11/19/18 02:00 02:30 02:53 Temperature Pulse Rate 97 H 101 H Pulse Rate [ From Monitor] Respiratory 20 19 Rate Blood Pressure 159/88 158/79 156/86 O2 Sat by Pulse 100 100 Oximetry O2 Sat by Pulse Oximetry [ Anterior Bilateral Throughout] 11/19/18 11/19/18 11/19/18 03:00 03:30 03:37 Temperature Pulse Rate 101 H 96 H 97 H Pulse Rate [ From Monitor] Respiratory 20 20 Rate Blood Pressure 165/91 146/78 146/78 O2 Sat by Pulse 100 100 100 Oximetry O2 Sat by Pulse Oximetry [ Anterior Bilateral Throughout] 11/19/18 11/19/18 11/19/18 03:57 04:00 04:30 Temperature 100.5 F H Pulse Rate 102 H 101 H Pulse Rate [ 94 H From Monitor] Respiratory 20 20 Rate Blood Pressure 157/90 159/86 O2 Sat by Pulse 100 99 Oximetry O2 Sat by Pulse Oximetry [ Anterior Bilateral Throughout] 11/19/18 11/19/18 11/19/18 05:00 05:30 06:00 Temperature Pulse Rate 104 H 99 H 102 H Pulse Rate [ From Monitor] Respiratory 20 20 20 Rate Blood Pressure 165/88 169/92 172/100 O2 Sat by Pulse 100 100 100 Oximetry O2 Sat by Pulse Oximetry [ Anterior Bilateral Throughout] 11/19/18 11/19/18 11/19/18 06:30 06:54 07:00 Temperature Pulse Rate 103 H 101 H Pulse Rate [ From Monitor] Respiratory 20 20 Rate Blood Pressure 170/94 160/86 152/88 O2 Sat by Pulse 100 100 Oximetry O2 Sat by Pulse Oximetry [ Anterior Bilateral Throughout] 11/19/18 11/19/18 11/19/18 07:30 08:00 08:29 Temperature 97.8 F Pulse Rate 93 H 94 H 100 H Pulse Rate [ 94 H From Monitor] Respiratory 20 20 Rate Blood Pressure 150/85 164/91 O2 Sat by Pulse 100 100 Oximetry O2 Sat by Pulse Oximetry [ Anterior Bilateral Throughout] 11/19/18 11/19/18 11/19/18 08:30 08:40 08:45 Temperature 97.8 F Pulse Rate 95 H 94 H 91 H Pulse Rate [ From Monitor] Respiratory 20 Rate Blood Pressure 180/90 180/90 152/78 O2 Sat by Pulse 100 Oximetry O2 Sat by Pulse 100 Oximetry [ Anterior Bilateral Throughout] 11/19/18 11/19/18 11/19/18 09:00 09:15 09:29 Temperature Pulse Rate 92 H 94 H 94 H Pulse Rate [ From Monitor] Respiratory 20 Rate Blood Pressure 137/82 136/78 125/77 O2 Sat by Pulse 100 100 Oximetry O2 Sat by Pulse Oximetry [ Anterior Bilateral Throughout] 11/19/18 11/19/18 11/19/18 09:30 09:45 10:00 Temperature Pulse Rate 95 H 95 H 93 H Pulse Rate [ From Monitor] Respiratory 20 20 Rate Blood Pressure 125/77 120/74 119/73 O2 Sat by Pulse 100 100 Oximetry O2 Sat by Pulse Oximetry [ Anterior Bilateral Throughout] 11/19/18 11/19/18 11/19/18 10:15 10:30 10:33 Temperature Pulse Rate 92 H 89 90 Pulse Rate [ From Monitor] Respiratory 20 Rate Blood Pressure 118/72 111/73 111/73 O2 Sat by Pulse 100 Oximetry O2 Sat by Pulse Oximetry [ Anterior Bilateral Throughout] 11/19/18 11/19/18 11/19/18 10:45 11:00 11:15 Temperature Pulse Rate 94 H 106 H 102 H Pulse Rate [ From Monitor] Respiratory Rate Blood Pressure 120/77 154/92 143/84 O2 Sat by Pulse Oximetry O2 Sat by Pulse Oximetry [ Anterior Bilateral Throughout] 11/19/18 11/19/18 11:30 11:40 Temperature Pulse Rate 95 H 101 H Pulse Rate [ From Monitor] Respiratory Rate Blood Pressure 113/73 102/69 O2 Sat by Pulse Oximetry O2 Sat by Pulse Oximetry [ Anterior Bilateral Throughout] - Laboratory Findings CBC and BMP: 11/18/18 04:24 11/19/18 04:24 Abnormal Lab Findings: Abnormal Labs 11/06/18 11/06/18 11/06/18 08:22 09:02 09:02 WBC 20.1 H RBC 3.40 L Hgb 10.5 L Hct MCV 119 H MCHC 26 L RDW 15.7 H Plt Count Lymph % (Auto) [place] % (Auto) Lymph # [place] # Seg Neutrophils % 80.1 H Seg Neuts % (Manual) 76.0 H Lymphocytes % (Manual) 4.0 L Monocytes % (Manual) Nucleated RBC % 1.0 H Seg Neutrophils # 16.1 H Seg Neutrophils # Man 15.3 H Lymphocytes # (Manual) 0.8 L Monocytes # (Manual) POC ABG pH POC ABG pCO2 POC ABG pO2 VBG pH Sodium 129 L Potassium 7.7 H* Chloride 79.7 L Carbon Dioxide 4 L* BUN 93 H Creatinine 7.4 H Glucose 1469 H* POC Glucose > 500 H Hemoglobin A1c Lactic Acid Calcium Phosphorus Magnesium Direct Bilirubin AST 2679 H ALT 1175 H C-Reactive Protein Total Protein 6.1 L Albumin 2.9 L Urine WBC (Auto) Salicylates Acetaminophen Heparin-induced Plt Ab 11/06/18 11/06/18 11/06/18 09:02 09:02 09:02 WBC RBC Hgb Hct MCV MCHC RDW Plt Count Lymph % (Auto) [place] % (Auto) Lymph # [place] # Seg Neutrophils % Seg Neuts % (Manual) Lymphocytes % (Manual) Monocytes % (Manual) Nucleated RBC % Seg Neutrophils # Seg Neutrophils # Man Lymphocytes # (Manual) Monocytes # (Manual) POC ABG pH POC ABG pCO2 POC ABG pO2 VBG pH Sodium Potassium Chloride Carbon Dioxide BUN Creatinine Glucose POC Glucose Hemoglobin A1c Lactic Acid 9.40 H* Calcium Phosphorus Magnesium Direct Bilirubin AST ALT C-Reactive Protein Total Protein Albumin Urine WBC (Auto) Salicylates < 0.3 L Acetaminophen < 5.0 L Heparin-induced Plt Ab 11/06/18 11/06/18 11/06/18 09:03 10:19 10:19 WBC RBC Hgb Hct MCV MCHC RDW Plt Count Lymph % (Auto) [place] % (Auto) Lymph # [place] # Seg Neutrophils % Seg Neuts % (Manual) Lymphocytes % (Manual) Monocytes % (Manual) Nucleated RBC % Seg Neutrophils # Seg Neutrophils # Man Lymphocytes # (Manual) Monocytes # (Manual) POC ABG pH 6.841 L POC ABG pCO2 POC ABG pO2 VBG pH Sodium 131 L Potassium 8.9 H* Chloride 85.3 L Carbon Dioxide 6 L* BUN 90 H Creatinine 7.1 H Glucose 1353 H* POC Glucose Hemoglobin A1c Lactic Acid Calcium 7.8 L Phosphorus 14.50 H Magnesium 2.70 H Direct Bilirubin AST ALT C-Reactive Protein Total Protein Albumin Urine WBC (Auto) Salicylates Acetaminophen Heparin-induced Plt Ab 11/06/18 11/06/18 11/06/18 12:07 13:22 13:22 WBC RBC Hgb Hct MCV MCHC RDW Plt Count Lymph % (Auto) [place] % (Auto) Lymph # [place] # Seg Neutrophils % Seg Neuts % (Manual) Lymphocytes % (Manual) Monocytes % (Manual) Nucleated RBC % Seg Neutrophils # Seg Neutrophils # Man Lymphocytes # (Manual) Monocytes # (Manual) POC ABG pH POC ABG pCO2 POC ABG pO2 VBG pH 6.982 L* Sodium 135 L Potassium 7.0 H* D Chloride 88.4 L Carbon Dioxide 5 L* BUN 89 H Creatinine 7.2 H Glucose 1326 H* POC Glucose Hemoglobin A1c Lactic Acid 8.50 H* Calcium Phosphorus Magnesium Direct Bilirubin AST ALT C-Reactive Protein Total Protein Albumin Urine WBC (Auto) Salicylates Acetaminophen Heparin-induced Plt Ab 11/06/18 11/06/18 11/06/18 14:15 14:15 15:21 WBC RBC Hgb Hct MCV MCHC RDW Plt Count Lymph % (Auto) [place] % (Auto) Lymph # [place] # Seg Neutrophils % Seg Neuts % (Manual) Lymphocytes % (Manual) Monocytes % (Manual) Nucleated RBC % Seg Neutrophils # Seg Neutrophils # Man Lymphocytes # (Manual) Monocytes # (Manual) POC ABG pH POC ABG pCO2 POC ABG pO2 VBG pH Sodium Potassium 6.6 H* 6.0 H Chloride 95.3 L 93.3 L Carbon Dioxide 4 L* 6 L* BUN 83 H 91 H Creatinine 6.9 H 7.3 H Glucose 1205 H* 1174 H* POC Glucose Hemoglobin A1c Lactic Acid Calcium 8.2 L Phosphorus 13.00 H Magnesium 2.60 H Direct Bilirubin AST ALT C-Reactive Protein Total Protein Albumin Urine WBC (Auto) Salicylates Acetaminophen Heparin-induced Plt Ab 11/06/18 11/06/18 11/06/18 15:21 16:14 16:33 WBC RBC Hgb Hct MCV MCHC RDW Plt Count Lymph % (Auto) [place] % (Auto) Lymph # [place] # Seg Neutrophils % Seg Neuts % (Manual) Lymphocytes % (Manual) Monocytes % (Manual) Nucleated RBC % Seg Neutrophils # Seg Neutrophils # Man Lymphocytes # (Manual) Monocytes # (Manual) POC ABG pH 7.004 L POC ABG pCO2 33.0 L POC ABG pO2 178 H VBG pH Sodium Potassium Chloride Carbon Dioxide BUN Creatinine Glucose POC Glucose > 500 H Hemoglobin A1c Lactic Acid 7.60 H* Calcium Phosphorus Magnesium Direct Bilirubin AST ALT C-Reactive Protein Total Protein Albumin Urine WBC (Auto) Salicylates Acetaminophen Heparin-induced Plt Ab 11/06/18 11/06/18 11/06/18 17:34 19:30 19:30 WBC RBC Hgb Hct MCV MCHC RDW Plt Count Lymph % (Auto) [place] % (Auto) Lymph # [place] # Seg Neutrophils % Seg Neuts % (Manual) Lymphocytes % (Manual) Monocytes % (Manual) Nucleated RBC % Seg Neutrophils # Seg Neutrophils # Man Lymphocytes # (Manual) Monocytes # (Manual) POC ABG pH POC ABG pCO2 POC ABG pO2 VBG pH Sodium Potassium 5.5 H Chloride 97.4 L 97.7 L Carbon Dioxide 10 L 11 L BUN 88 H 87 H Creatinine 7.5 H 7.6 H Glucose 1054 H* 954 H* POC Glucose Hemoglobin A1c Lactic Acid Calcium 7.7 L 7.4 L Phosphorus Magnesium Direct Bilirubin AST ALT C-Reactive Protein 1.90 H Total Protein Albumin Urine WBC (Auto) Salicylates Acetaminophen Heparin-induced Plt Ab 11/06/18 11/06/18 11/06/18 20:31 20:40 20:40 WBC RBC Hgb Hct MCV MCHC RDW Plt Count Lymph % (Auto) [place] % (Auto) Lymph # [place] # Seg Neutrophils % Seg Neuts % (Manual) Lymphocytes % (Manual) Monocytes % (Manual) Nucleated RBC % Seg Neutrophils # Seg Neutrophils # Man Lymphocytes # (Manual) Monocytes # (Manual) POC ABG pH 7.245 L POC ABG pCO2 POC ABG pO2 132 H VBG pH Sodium Potassium Chloride Carbon Dioxide BUN Creatinine Glucose 907 H* POC Glucose Hemoglobin A1c Lactic Acid 4.40 H* Calcium Phosphorus Magnesium Direct Bilirubin AST ALT C-Reactive Protein Total Protein Albumin Urine WBC (Auto) Salicylates Acetaminophen Heparin-induced Plt Ab 11/06/18 11/06/18 11/06/18 22:05 22:40 23:35 WBC RBC Hgb Hct MCV MCHC RDW Plt Count Lymph % (Auto) [place] % (Auto) Lymph # [place] # Seg Neutrophils % Seg Neuts % (Manual) Lymphocytes % (Manual) Monocytes % (Manual) Nucleated RBC % Seg Neutrophils # Seg Neutrophils # Man Lymphocytes # (Manual) Monocytes # (Manual) POC ABG pH POC ABG pCO2 POC ABG pO2 VBG pH Sodium Potassium Chloride Carbon Dioxide 13 L BUN 86 H Creatinine 7.8 H Glucose 822 H* 726 H* POC Glucose Hemoglobin A1c Lactic Acid 3.40 H* Calcium 7.5 L Phosphorus Magnesium Direct Bilirubin AST ALT C-Reactive Protein Total Protein Albumin Urine WBC (Auto) Salicylates Acetaminophen Heparin-induced Plt Ab 11/07/18 11/07/18 11/07/18 01:25 01:26 03:15 WBC RBC Hgb Hct MCV MCHC RDW Plt Count Lymph % (Auto) [place] % (Auto) Lymph # [place] # Seg Neutrophils % Seg Neuts % (Manual) Lymphocytes % (Manual) Monocytes % (Manual) Nucleated RBC % Seg Neutrophils # Seg Neutrophils # Man Lymphocytes # (Manual) Monocytes # (Manual) POC ABG pH POC ABG pCO2 POC ABG pO2 VBG pH Sodium Potassium Chloride Carbon Dioxide BUN Creatinine Glucose 602 H* POC Glucose > 500 H > 500 H Hemoglobin A1c Lactic Acid Calcium Phosphorus Magnesium Direct Bilirubin AST ALT C-Reactive Protein Total Protein Albumin Urine WBC (Auto) Salicylates Acetaminophen Heparin-induced Plt Ab 11/07/18 11/07/18 11/07/18 03:20 04:32 04:47 WBC RBC Hgb Hct MCV MCHC RDW Plt Count Lymph % (Auto) [place] % (Auto) Lymph # [place] # Seg Neutrophils % Seg Neuts % (Manual) Lymphocytes % (Manual) Monocytes % (Manual) Nucleated RBC % Seg Neutrophils # Seg Neutrophils # Man Lymphocytes # (Manual) Monocytes # (Manual) POC ABG pH POC ABG pCO2 30.3 L POC ABG pO2 153 H VBG pH Sodium 149 H Potassium Chloride Carbon Dioxide 16 L BUN 86 H Creatinine 8.3 H Glucose 499.2 H POC Glucose 360 H Hemoglobin A1c Lactic Acid Calcium 7.6 L Phosphorus Magnesium Direct Bilirubin AST ALT C-Reactive Protein Total Protein Albumin Urine WBC (Auto) Salicylates Acetaminophen Heparin-induced Plt Ab 11/07/18 11/07/18 11/07/18 05:26 06:35 06:36 WBC RBC Hgb Hct MCV MCHC RDW Plt Count Lymph % (Auto) [place] % (Auto) Lymph # [place] # Seg Neutrophils % Seg Neuts % (Manual) Lymphocytes % (Manual) Monocytes % (Manual) Nucleated RBC % Seg Neutrophils # Seg Neutrophils # Man Lymphocytes # (Manual) Monocytes # (Manual) POC ABG pH POC ABG pCO2 POC ABG pO2 VBG pH Sodium 153 H Potassium 3.2 L Chloride 109.7 H Carbon Dioxide BUN 84 H Creatinine 8.6 H Glucose 249 H POC Glucose 341 H 274 H Hemoglobin A1c Lactic Acid Calcium 7.6 L Phosphorus Magnesium Direct Bilirubin AST ALT C-Reactive Protein Total Protein Albumin Urine WBC (Auto) Salicylates Acetaminophen Heparin-induced Plt Ab 11/07/18 11/07/18 11/07/18 07:33 09:00 09:52 WBC RBC Hgb Hct MCV MCHC RDW Plt Count Lymph % (Auto) [place] % (Auto) Lymph # [place] # Seg Neutrophils % Seg Neuts % (Manual) Lymphocytes % (Manual) Monocytes % (Manual) Nucleated RBC % Seg Neutrophils # Seg Neutrophils # Man Lymphocytes # (Manual) Monocytes # (Manual) POC ABG pH POC ABG pCO2 POC ABG pO2 VBG pH Sodium Potassium Chloride Carbon Dioxide BUN Creatinine Glucose POC Glucose 243 H 182 H 227 H Hemoglobin A1c Lactic Acid Calcium Phosphorus Magnesium Direct Bilirubin AST ALT C-Reactive Protein Total Protein Albumin Urine WBC (Auto) Salicylates Acetaminophen Heparin-induced Plt Ab 11/07/18 11/07/18 11/07/18 10:50 10:50 10:50 WBC 11.3 H RBC 2.85 L Hgb 8.7 L Hct 25.3 L D MCV MCHC RDW Plt Count Lymph % (Auto) 9.7 L [place] % (Auto) Lymph # 1.1 L [place] # Seg Neutrophils % 83.3 H Seg Neuts % (Manual) Lymphocytes % (Manual) Monocytes % (Manual) Nucleated RBC % Seg Neutrophils # 9.4 H Seg Neutrophils # Man Lymphocytes # (Manual) Monocytes # (Manual) POC ABG pH POC ABG pCO2 POC ABG pO2 VBG pH Sodium 154 H Potassium 3.2 L Chloride 110.2 H Carbon Dioxide BUN 82 H Creatinine 8.3 H Glucose 186 H POC Glucose 200 H Hemoglobin A1c Lactic Acid Calcium 7.3 L Phosphorus Magnesium Direct Bilirubin AST ALT C-Reactive Protein Total Protein Albumin Urine WBC (Auto) Salicylates Acetaminophen Heparin-induced Plt Ab 11/07/18 11/07/18 11/07/18 12:00 12:05 13:13 WBC RBC Hgb Hct MCV MCHC RDW Plt Count Lymph % (Auto) [place] % (Auto) Lymph # [place] # Seg Neutrophils % Seg Neuts % (Manual) Lymphocytes % (Manual) Monocytes % (Manual) Nucleated RBC % Seg Neutrophils # Seg Neutrophils # Man Lymphocytes # (Manual) Monocytes # (Manual) POC ABG pH POC ABG pCO2 POC ABG pO2 VBG pH Sodium Potassium Chloride Carbon Dioxide BUN Creatinine Glucose POC Glucose 179 H 190 H Hemoglobin A1c Lactic Acid 2.50 H* Calcium Phosphorus Magnesium Direct Bilirubin AST ALT C-Reactive Protein Total Protein Albumin Urine WBC (Auto) Salicylates Acetaminophen Heparin-induced Plt Ab 11/07/18 11/07/18 11/07/18 13:20 14:05 15:18 WBC RBC Hgb Hct MCV MCHC RDW Plt Count Lymph % (Auto) [place] % (Auto) Lymph # [place] # Seg Neutrophils % Seg Neuts % (Manual) Lymphocytes % (Manual) Monocytes % (Manual) Nucleated RBC % Seg Neutrophils # Seg Neutrophils # Man Lymphocytes # (Manual) Monocytes # (Manual) POC ABG pH POC ABG pCO2 POC ABG pO2 VBG pH Sodium Potassium 3.1 L Chloride Carbon Dioxide BUN 50 H Creatinine 5.0 H Glucose 176 H POC Glucose 189 H 215 H Hemoglobin A1c Lactic Acid Calcium 7.4 L Phosphorus Magnesium Direct Bilirubin AST ALT C-Reactive Protein Total Protein Albumin Urine WBC (Auto) Salicylates Acetaminophen Heparin-induced Plt Ab 11/07/18 11/07/18 11/07/18 16:25 17:37 23:23 WBC RBC Hgb Hct MCV MCHC RDW Plt Count Lymph % (Auto) [place] % (Auto) Lymph # [place] # Seg Neutrophils % Seg Neuts % (Manual) Lymphocytes % (Manual) Monocytes % (Manual) Nucleated RBC % Seg Neutrophils # Seg Neutrophils # Man Lymphocytes # (Manual) Monocytes # (Manual) POC ABG pH POC ABG pCO2 POC ABG pO2 VBG pH Sodium Potassium Chloride Carbon Dioxide BUN Creatinine Glucose POC Glucose 180 H 215 H 234 H Hemoglobin A1c Lactic Acid Calcium Phosphorus Magnesium Direct Bilirubin AST ALT C-Reactive Protein Total Protein Albumin Urine WBC (Auto) Salicylates Acetaminophen Heparin-induced Plt Ab 11/08/18 11/08/18 11/08/18 04:17 04:23 04:23 WBC RBC 2.98 L Hgb 9.3 L Hct 26.7 L MCV MCHC 35 H RDW Plt Count 130 L Lymph % (Auto) [place] % (Auto) Lymph # [place] # Seg Neutrophils % 80.3 H Seg Neuts % (Manual) Lymphocytes % (Manual) Monocytes % (Manual) Nucleated RBC % Seg Neutrophils # 7.8 H Seg Neutrophils # Man Lymphocytes # (Manual) Monocytes # (Manual) POC ABG pH 7.520 H POC ABG pCO2 POC ABG pO2 111 H VBG pH Sodium Potassium 3.0 L Chloride Carbon Dioxide BUN 44 H Creatinine 6.3 H Glucose 245 H POC Glucose Hemoglobin A1c Lactic Acid Calcium 7.3 L Phosphorus Magnesium Direct Bilirubin AST ALT C-Reactive Protein Total Protein Albumin Urine WBC (Auto) Salicylates Acetaminophen Heparin-induced Plt Ab 11/08/18 11/08/18 11/08/18 05:19 08:00 08:00 WBC RBC Hgb Hct MCV MCHC RDW Plt Count Lymph % (Auto) [place] % (Auto) Lymph # [place] # Seg Neutrophils % Seg Neuts % (Manual) Lymphocytes % (Manual) Monocytes % (Manual) Nucleated RBC % Seg Neutrophils # Seg Neutrophils # Man Lymphocytes # (Manual) Monocytes # (Manual) POC ABG pH POC ABG pCO2 POC ABG pO2 VBG pH Sodium Potassium Chloride Carbon Dioxide BUN Creatinine Glucose POC Glucose 253 H Hemoglobin A1c Lactic Acid 2.70 H* Calcium Phosphorus Magnesium Direct Bilirubin 0.3 H AST 932 H ALT 582 H C-Reactive Protein Total Protein 5.4 L Albumin 2.6 L Urine WBC (Auto) Salicylates Acetaminophen Heparin-induced Plt Ab 11/08/18 11/08/18 11/08/18 11:36 17:51 21:59 WBC RBC Hgb Hct MCV MCHC RDW Plt Count Lymph % (Auto) [place] % (Auto) Lymph # [place] # Seg Neutrophils % Seg Neuts % (Manual) Lymphocytes % (Manual) Monocytes % (Manual) Nucleated RBC % Seg Neutrophils # Seg Neutrophils # Man Lymphocytes # (Manual) Monocytes # (Manual) POC ABG pH 7.459 H POC ABG pCO2 POC ABG pO2 108 H VBG pH Sodium Potassium Chloride Carbon Dioxide BUN Creatinine Glucose POC Glucose 197 H Hemoglobin A1c Lactic Acid Calcium Phosphorus Magnesium Direct Bilirubin AST ALT C-Reactive Protein Total Protein Albumin Urine WBC (Auto) Salicylates Acetaminophen Heparin-induced Plt Ab Positive H 11/08/18 11/09/18 11/09/18 23:28 00:39 02:20 WBC RBC Hgb Hct MCV MCHC RDW Plt Count Lymph % (Auto) [place] % (Auto) Lymph # [place] # Seg Neutrophils % Seg Neuts % (Manual) Lymphocytes % (Manual) Monocytes % (Manual) Nucleated RBC % Seg Neutrophils # Seg Neutrophils # Man Lymphocytes # (Manual) Monocytes # (Manual) POC ABG pH POC ABG pCO2 POC ABG pO2 VBG pH Sodium Potassium Chloride Carbon Dioxide BUN Creatinine Glucose POC Glucose 418 H 471 H 254 H Hemoglobin A1c Lactic Acid Calcium Phosphorus Magnesium Direct Bilirubin AST ALT C-Reactive Protein Total Protein Albumin Urine WBC (Auto) Salicylates Acetaminophen Heparin-induced Plt Ab 11/09/18 11/09/18 11/09/18 03:48 06:02 06:02 WBC RBC 2.95 L Hgb 9.2 L Hct 26.7 L MCV MCHC RDW Plt Count 101 L Lymph % (Auto) [place] % (Auto) Lymph # [place] # Seg Neutrophils % Seg Neuts % (Manual) Lymphocytes % (Manual) Monocytes % (Manual) Nucleated RBC % Seg Neutrophils # Seg Neutrophils # Man Lymphocytes # (Manual) Monocytes # (Manual) POC ABG pH POC ABG pCO2 POC ABG pO2 108 H VBG pH Sodium 150 H Potassium Chloride 108.3 H Carbon Dioxide BUN 44 H Creatinine 7.7 H Glucose 102 H POC Glucose Hemoglobin A1c Lactic Acid Calcium 7.2 L Phosphorus Magnesium Direct Bilirubin AST 554 H ALT 461 H C-Reactive Protein Total Protein 5.1 L Albumin 2.6 L Urine WBC (Auto) Salicylates Acetaminophen Heparin-induced Plt Ab 11/09/18 11/09/18 11/09/18 17:49 18:49 23:32 WBC RBC Hgb Hct MCV MCHC RDW Plt Count Lymph % (Auto) [place] % (Auto) Lymph # [place] # Seg Neutrophils % Seg Neuts % (Manual) Lymphocytes % (Manual) Monocytes % (Manual) Nucleated RBC % Seg Neutrophils # Seg Neutrophils # Man Lymphocytes # (Manual) Monocytes # (Manual) POC ABG pH POC ABG pCO2 46.2 H POC ABG pO2 VBG pH Sodium Potassium Chloride Carbon Dioxide BUN Creatinine Glucose POC Glucose 184 H 150 H Hemoglobin A1c Lactic Acid Calcium Phosphorus Magnesium Direct Bilirubin AST ALT C-Reactive Protein Total Protein Albumin Urine WBC (Auto) Salicylates Acetaminophen Heparin-induced Plt Ab 11/10/18 11/10/18 11/10/18 02:52 05:00 05:00 WBC RBC 2.95 L Hgb 8.9 L Hct 26.6 L MCV MCHC RDW Plt Count 100 L Lymph % (Auto) [place] % (Auto) Lymph # [place] # Seg Neutrophils % Seg Neuts % (Manual) Lymphocytes % (Manual) Monocytes % (Manual) 8.0 H Nucleated RBC % Seg Neutrophils # Seg Neutrophils # Man Lymphocytes # (Manual) Monocytes # (Manual) POC ABG pH POC ABG pCO2 POC ABG pO2 VBG pH Sodium Potassium Chloride Carbon Dioxide BUN 33 H Creatinine 6.8 H Glucose 251 H POC Glucose 186 H Hemoglobin A1c Lactic Acid Calcium 7.3 L Phosphorus Magnesium Direct Bilirubin AST ALT C-Reactive Protein Total Protein Albumin Urine WBC (Auto) Salicylates Acetaminophen Heparin-induced Plt Ab 11/10/18 11/10/18 11/10/18 05:16 11:47 17:32 WBC RBC Hgb Hct MCV MCHC RDW Plt Count Lymph % (Auto) [place] % (Auto) Lymph # [place] # Seg Neutrophils % Seg Neuts % (Manual) Lymphocytes % (Manual) Monocytes % (Manual) Nucleated RBC % Seg Neutrophils # Seg Neutrophils # Man Lymphocytes # (Manual) Monocytes # (Manual) POC ABG pH POC ABG pCO2 POC ABG pO2 VBG pH Sodium Potassium Chloride Carbon Dioxide BUN Creatinine Glucose POC Glucose 242 H 261 H 194 H Hemoglobin A1c Lactic Acid Calcium Phosphorus Magnesium Direct Bilirubin AST ALT C-Reactive Protein Total Protein Albumin Urine WBC (Auto) Salicylates Acetaminophen Heparin-induced Plt Ab 11/10/18 11/11/18 11/11/18 23:39 00:26 04:24 WBC RBC 2.98 L Hgb 9.1 L Hct 27.4 L MCV MCHC RDW Plt Count 114 L Lymph % (Auto) [place] % (Auto) Lymph # [place] # Seg Neutrophils % Seg Neuts % (Manual) Lymphocytes % (Manual) Monocytes % (Manual) 10.0 H Nucleated RBC % Seg Neutrophils # Seg Neutrophils # Man Lymphocytes # (Manual) Monocytes # (Manual) 1.0 H POC ABG pH POC ABG pCO2 POC ABG pO2 VBG pH Sodium Potassium Chloride Carbon Dioxide BUN Creatinine Glucose POC Glucose 60 L 124 H Hemoglobin A1c Lactic Acid Calcium Phosphorus Magnesium Direct Bilirubin AST ALT C-Reactive Protein Total Protein Albumin Urine WBC (Auto) Salicylates Acetaminophen Heparin-induced Plt Ab 11/11/18 11/11/18 11/11/18 04:24 05:27 05:31 WBC RBC Hgb Hct MCV MCHC RDW Plt Count Lymph % (Auto) [place] % (Auto) Lymph # [place] # Seg Neutrophils % Seg Neuts % (Manual) Lymphocytes % (Manual) Monocytes % (Manual) Nucleated RBC % Seg Neutrophils # Seg Neutrophils # Man Lymphocytes # (Manual) Monocytes # (Manual) POC ABG pH POC ABG pCO2 48.8 H POC ABG pO2 109 H VBG pH Sodium Potassium Chloride Carbon Dioxide BUN 23 H Creatinine 5.5 H Glucose 147 H POC Glucose 172 H Hemoglobin A1c Lactic Acid Calcium 7.9 L Phosphorus Magnesium Direct Bilirubin AST 152 H ALT 247 H C-Reactive Protein Total Protein Albumin 2.3 L Urine WBC (Auto) Salicylates Acetaminophen Heparin-induced Plt Ab 11/11/18 11/11/18 11/11/18 12:11 17:12 23:41 WBC RBC Hgb Hct MCV MCHC RDW Plt Count Lymph % (Auto) [place] % (Auto) Lymph # [place] # Seg Neutrophils % Seg Neuts % (Manual) Lymphocytes % (Manual) Monocytes % (Manual) Nucleated RBC % Seg Neutrophils # Seg Neutrophils # Man Lymphocytes # (Manual) Monocytes # (Manual) POC ABG pH POC ABG pCO2 POC ABG pO2 VBG pH Sodium Potassium Chloride Carbon Dioxide BUN Creatinine Glucose POC Glucose 343 H 188 H 145 H Hemoglobin A1c Lactic Acid Calcium Phosphorus Magnesium Direct Bilirubin AST ALT C-Reactive Protein Total Protein Albumin Urine WBC (Auto) Salicylates Acetaminophen Heparin-induced Plt Ab 11/12/18 11/12/18 11/12/18 00:11 04:44 04:44 WBC RBC 2.91 L Hgb 9.0 L Hct 26.9 L MCV MCHC RDW Plt Count Lymph % (Auto) 12.7 L [place] % (Auto) 14.9 H Lymph # 0.8 L [place] # 1.0 H Seg Neutrophils % 71.2 H Seg Neuts % (Manual) Lymphocytes % (Manual) Monocytes % (Manual) Nucleated RBC % Seg Neutrophils # Seg Neutrophils # Man Lymphocytes # (Manual) Monocytes # (Manual) POC ABG pH POC ABG pCO2 POC ABG pO2 VBG pH Sodium Potassium Chloride Carbon Dioxide BUN 22 H Creatinine 5.0 H Glucose 288 H POC Glucose 151 H Hemoglobin A1c Lactic Acid Calcium Phosphorus Magnesium Direct Bilirubin AST 88 H ALT 187 H C-Reactive Protein Total Protein Albumin 2.9 L Urine WBC (Auto) Salicylates Acetaminophen Heparin-induced Plt Ab 11/12/18 11/12/18 11/12/18 11:48 12:28 17:13 WBC RBC Hgb Hct MCV MCHC RDW Plt Count Lymph % (Auto) Wharton % (Auto) Lymph # Wharton # Seg Neutrophils % Seg Neuts % (Manual) Lymphocytes % (Manual) Monocytes % (Manual) Nucleated RBC % Seg Neutrophils # Seg Neutrophils # Man Lymphocytes # (Manual) Monocytes # (Manual) POC ABG pH POC ABG pCO2 POC ABG pO2 VBG pH Sodium Potassium Chloride Carbon Dioxide BUN Creatinine Glucose POC Glucose 414 H 437 H 251 H Hemoglobin A1c Lactic Acid Calcium Phosphorus Magnesium Direct Bilirubin AST ALT C-Reactive Protein Total Protein Albumin Urine WBC (Auto) Salicylates Acetaminophen Heparin-induced Plt Ab 11/13/18 11/13/18 11/13/18 00:43 04:14 04:14 WBC RBC 2.62 L Hgb 8.0 L Hct 24.0 L MCV MCHC RDW Plt Count Lymph % (Auto) Wharton % (Auto) 15.8 H Lymph # Wharton # 0.9 H Seg Neutrophils % Seg Neuts % (Manual) Lymphocytes % (Manual) Monocytes % (Manual) Nucleated RBC % Seg Neutrophils # Seg Neutrophils # Man Lymphocytes # (Manual) Monocytes # (Manual) POC ABG pH POC ABG pCO2 POC ABG pO2 VBG pH Sodium Potassium Chloride Carbon Dioxide BUN 32 H Creatinine 6.9 H Glucose 190 H POC Glucose 149 H Hemoglobin A1c Lactic Acid Calcium Phosphorus Magnesium Direct Bilirubin AST ALT C-Reactive Protein Total Protein Albumin Urine WBC (Auto) Salicylates Acetaminophen Heparin-induced Plt Ab 11/13/18 11/13/18 11/13/18 05:53 10:40 12:05 WBC RBC Hgb Hct MCV MCHC RDW Plt Count Lymph % (Auto) Wharton % (Auto) Lymph # [place]arton # Seg Neutrophils % Seg Neuts % (Manual) Lymphocytes % (Manual) Monocytes % (Manual) Nucleated RBC % Seg Neutrophils # Seg Neutrophils # Man Lymphocytes # (Manual) Monocytes # (Manual) POC ABG pH POC ABG pCO2 POC ABG pO2 VBG pH Sodium Potassium Chloride Carbon Dioxide BUN Creatinine Glucose POC Glucose 270 H 405 H 361 H Hemoglobin A1c Lactic Acid Calcium Phosphorus Magnesium Direct Bilirubin AST ALT C-Reactive Protein Total Protein Albumin Urine WBC (Auto) Salicylates Acetaminophen Heparin-induced Plt Ab 11/13/18 11/13/18 11/14/18 18:48 23:55 04:57 WBC RBC 2.75 L Hgb 8.3 L Hct 25.2 L MCV MCHC RDW Plt Count Lymph % (Auto) [place]arton % (Auto) 15.8 H Lymph # 0.9 L [place]arton # 0.9 H Seg Neutrophils % Seg Neuts % (Manual) Lymphocytes % (Manual) Monocytes % (Manual) Nucleated RBC % Seg Neutrophils # Seg Neutrophils # Man Lymphocytes # (Manual) Monocytes # (Manual) POC ABG pH POC ABG pCO2 POC ABG pO2 VBG pH Sodium Potassium Chloride Carbon Dioxide BUN Creatinine Glucose POC Glucose 202 H 254 H Hemoglobin A1c Lactic Acid Calcium Phosphorus Magnesium Direct Bilirubin AST ALT C-Reactive Protein Total Protein Albumin Urine WBC (Auto) Salicylates Acetaminophen Heparin-induced Plt Ab 11/14/18 11/14/18 11/14/18 04:57 05:33 11:37 WBC RBC Hgb Hct MCV MCHC RDW Plt Count Lymph % (Auto) [place]arton % (Auto) Lymph # [place] # Seg Neutrophils % Seg Neuts % (Manual) Lymphocytes % (Manual) Monocytes % (Manual) Nucleated RBC % Seg Neutrophils # Seg Neutrophils # Man Lymphocytes # (Manual) Monocytes # (Manual) POC ABG pH POC ABG pCO2 POC ABG pO2 VBG pH Sodium 136 L Potassium Chloride 96.7 L Carbon Dioxide BUN 25 H Creatinine 5.3 H Glucose 235 H POC Glucose 242 H 272 H Hemoglobin A1c Lactic Acid Calcium Phosphorus Magnesium Direct Bilirubin AST ALT C-Reactive Protein Total Protein Albumin Urine WBC (Auto) Salicylates Acetaminophen Heparin-induced Plt Ab 11/14/18 11/14/18 11/15/18 18:08 23:21 04:50 WBC RBC 2.76 L Hgb 8.5 L Hct 25.4 L MCV MCHC RDW Plt Count Lymph % (Auto) [place]arton % (Auto) 14.5 H Lymph # [place]arton # 1.1 H Seg Neutrophils % Seg Neuts % (Manual) Lymphocytes % (Manual) Monocytes % (Manual) Nucleated RBC % Seg Neutrophils # Seg Neutrophils # Man Lymphocytes # (Manual) Monocytes # (Manual) POC ABG pH POC ABG pCO2 POC ABG pO2 VBG pH Sodium Potassium Chloride Carbon Dioxide BUN Creatinine Glucose POC Glucose 166 H 185 H Hemoglobin A1c Lactic Acid Calcium Phosphorus Magnesium Direct Bilirubin AST ALT C-Reactive Protein Total Protein Albumin Urine WBC (Auto) Salicylates Acetaminophen Heparin-induced Plt Ab 11/15/18 11/15/18 11/15/18 04:50 04:50 06:01 WBC RBC Hgb Hct MCV MCHC RDW Plt Count Lymph % (Auto) [place]arton % (Auto) Lymph # [place] # Seg Neutrophils % Seg Neuts % (Manual) Lymphocytes % (Manual) Monocytes % (Manual) Nucleated RBC % Seg Neutrophils # Seg Neutrophils # Man Lymphocytes # (Manual) Monocytes # (Manual) POC ABG pH POC ABG pCO2 POC ABG pO2 VBG pH Sodium Potassium Chloride 95.2 L Carbon Dioxide BUN 21 H Creatinine 4.8 H Glucose 126 H POC Glucose 150 H Hemoglobin A1c 10.1 H Lactic Acid Calcium Phosphorus Magnesium Direct Bilirubin AST ALT 69 H C-Reactive Protein Total Protein Albumin 2.7 L Urine WBC (Auto) Salicylates Acetaminophen Heparin-induced Plt Ab 11/15/18 11/15/18 11/16/18 13:06 18:08 00:39 WBC RBC Hgb Hct MCV MCHC RDW Plt Count Lymph % (Auto) [place]arton % (Auto) Lymph # [place]arton # Seg Neutrophils % Seg Neuts % (Manual) Lymphocytes % (Manual) Monocytes % (Manual) Nucleated RBC % Seg Neutrophils # Seg Neutrophils # Man Lymphocytes # (Manual) Monocytes # (Manual) POC ABG pH POC ABG pCO2 POC ABG pO2 VBG pH Sodium Potassium Chloride Carbon Dioxide BUN Creatinine Glucose POC Glucose 191 H 114 H 147 H Hemoglobin A1c Lactic Acid Calcium Phosphorus Magnesium Direct Bilirubin AST ALT C-Reactive Protein Total Protein Albumin Urine WBC (Auto) Salicylates Acetaminophen Heparin-induced Plt Ab 11/16/18 11/16/18 11/16/18 04:49 04:49 06:09 WBC RBC 2.60 L Hgb 8.0 L Hct 23.4 L MCV MCHC RDW Plt Count Lymph % (Auto) [place]arton % (Auto) 14.1 H Lymph # Wharton # 1.2 H Seg Neutrophils % Seg Neuts % (Manual) Lymphocytes % (Manual) Monocytes % (Manual) Nucleated RBC % Seg Neutrophils # Seg Neutrophils # Man Lymphocytes # (Manual) Monocytes # (Manual) POC ABG pH POC ABG pCO2 POC ABG pO2 VBG pH Sodium 136 L Potassium Chloride 94.1 L Carbon Dioxide BUN 39 H Creatinine 7.4 H D Glucose 243 H POC Glucose 308 H Hemoglobin A1c Lactic Acid Calcium 8.3 L Phosphorus Magnesium Direct Bilirubin AST ALT C-Reactive Protein Total Protein Albumin 2.2 L Urine WBC (Auto) Salicylates Acetaminophen Heparin-induced Plt Ab 11/16/18 11/16/18 11/16/18 08:52 11:53 17:11 WBC RBC Hgb Hct MCV MCHC RDW Plt Count Lymph % (Auto) Wharton % (Auto) Lymph # [place]arton # Seg Neutrophils % Seg Neuts % (Manual) Lymphocytes % (Manual) Monocytes % (Manual) Nucleated RBC % Seg Neutrophils # Seg Neutrophils # Man Lymphocytes # (Manual) Monocytes # (Manual) POC ABG pH POC ABG pCO2 POC ABG pO2 VBG pH Sodium Potassium Chloride Carbon Dioxide BUN Creatinine Glucose POC Glucose 278 H 178 H 173 H Hemoglobin A1c Lactic Acid Calcium Phosphorus Magnesium Direct Bilirubin AST ALT C-Reactive Protein Total Protein Albumin Urine WBC (Auto) Salicylates Acetaminophen Heparin-induced Plt Ab 11/16/18 11/17/18 11/17/18 21:27 00:08 04:45 WBC RBC 2.58 L Hgb 7.9 L Hct 23.5 L MCV MCHC RDW Plt Count Lymph % (Auto) [place]arton % (Auto) 10.3 H Lymph # [place]arton # 1.1 H Seg Neutrophils % 74.8 H Seg Neuts % (Manual) Lymphocytes % (Manual) Monocytes % (Manual) Nucleated RBC % Seg Neutrophils # Seg Neutrophils # Man Lymphocytes # (Manual) Monocytes # (Manual) POC ABG pH POC ABG pCO2 POC ABG pO2 VBG pH Sodium Potassium Chloride Carbon Dioxide BUN Creatinine Glucose POC Glucose 206 H 151 H Hemoglobin A1c Lactic Acid Calcium Phosphorus Magnesium Direct Bilirubin AST ALT C-Reactive Protein Total Protein Albumin Urine WBC (Auto) Salicylates Acetaminophen Heparin-induced Plt Ab 11/17/18 11/17/18 11/17/18 04:45 05:12 05:31 WBC RBC Hgb Hct MCV MCHC RDW Plt Count Lymph % (Auto) [place]arton % (Auto) Lymph # [place] # Seg Neutrophils % Seg Neuts % (Manual) Lymphocytes % (Manual) Monocytes % (Manual) Nucleated RBC % Seg Neutrophils # Seg Neutrophils # Man Lymphocytes # (Manual) Monocytes # (Manual) POC ABG pH 7.481 H POC ABG pCO2 POC ABG pO2 VBG pH Sodium 136 L Potassium Chloride 94.4 L Carbon Dioxide BUN 38 H Creatinine 6.8 H Glucose POC Glucose 111 H Hemoglobin A1c Lactic Acid Calcium Phosphorus Magnesium 2.40 H Direct Bilirubin AST ALT C-Reactive Protein Total Protein Albumin Urine WBC (Auto) Salicylates Acetaminophen Heparin-induced Plt Ab 11/17/18 11/17/18 11/18/18 12:10 23:23 04:24 WBC RBC 2.66 L Hgb 8.2 L Hct 24.0 L MCV MCHC RDW Plt Count 448 H Lymph % (Auto) [place]arton % (Auto) 12.7 H Lymph # [place]arton # 1.4 H Seg Neutrophils % 71.9 H Seg Neuts % (Manual) Lymphocytes % (Manual) Monocytes % (Manual) Nucleated RBC % Seg Neutrophils # Seg Neutrophils # Man Lymphocytes # (Manual) Monocytes # (Manual) POC ABG pH POC ABG pCO2 POC ABG pO2 VBG pH Sodium Potassium Chloride Carbon Dioxide BUN Creatinine Glucose POC Glucose 174 H 243 H Hemoglobin A1c Lactic Acid Calcium Phosphorus Magnesium Direct Bilirubin AST ALT C-Reactive Protein Total Protein Albumin Urine WBC (Auto) Salicylates Acetaminophen Heparin-induced Plt Ab 11/18/18 11/18/18 11/18/18 04:24 05:26 11:48 WBC RBC Hgb Hct MCV MCHC RDW Plt Count Lymph % (Auto) [place]arton % (Auto) Lymph # [place]arton # Seg Neutrophils % Seg Neuts % (Manual) Lymphocytes % (Manual) Monocytes % (Manual) Nucleated RBC % Seg Neutrophils # Seg Neutrophils # Man Lymphocytes # (Manual) Monocytes # (Manual) POC ABG pH POC ABG pCO2 POC ABG pO2 VBG pH Sodium 136 L Potassium Chloride 93.1 L Carbon Dioxide BUN 30 H Creatinine 5.9 H Glucose 211 H POC Glucose 205 H 162 H Hemoglobin A1c Lactic Acid Calcium Phosphorus Magnesium Direct Bilirubin AST ALT C-Reactive Protein Total Protein Albumin Urine WBC (Auto) Salicylates Acetaminophen Heparin-induced Plt Ab 11/18/18 11/18/18 11/18/18 12:01 19:37 23:21 WBC RBC Hgb Hct MCV MCHC RDW Plt Count Lymph % (Auto) [place]arton % (Auto) Lymph # [place] # Seg Neutrophils % Seg Neuts % (Manual) Lymphocytes % (Manual) Monocytes % (Manual) Nucleated RBC % Seg Neutrophils # Seg Neutrophils # Man Lymphocytes # (Manual) Monocytes # (Manual) POC ABG pH POC ABG pCO2 POC ABG pO2 VBG pH Sodium Potassium Chloride Carbon Dioxide BUN Creatinine Glucose POC Glucose 207 H 245 H Hemoglobin A1c Lactic Acid Calcium Phosphorus Magnesium Direct Bilirubin AST ALT C-Reactive Protein Total Protein Albumin Urine WBC (Auto) > 182.0 H Salicylates Acetaminophen Heparin-induced Plt Ab 11/19/18 11/19/18 04:24 05:21 WBC RBC Hgb Hct MCV MCHC RDW Plt Count Lymph % (Auto) [place]arton % (Auto) Lymph # [place] # Seg Neutrophils % Seg Neuts % (Manual) Lymphocytes % (Manual) Monocytes % (Manual) Nucleated RBC % Seg Neutrophils # Seg Neutrophils # Man Lymphocytes # (Manual) Monocytes # (Manual) POC ABG pH POC ABG pCO2 POC ABG pO2 VBG pH Sodium 134 L Potassium 5.4 H Chloride 89.8 L Carbon Dioxide BUN 54 H Creatinine 8.0 H Glucose 240 H POC Glucose 234 H Hemoglobin A1c Lactic Acid Calcium Phosphorus Magnesium Direct Bilirubin AST ALT C-Reactive Protein Total Protein Albumin Urine WBC (Auto) Salicylates Acetaminophen Heparin-induced Plt Ab
[2018-11-19 12:53] LABS: Hematocrit 24.9 % (35.5-45.6); Hemoglobin 8.3 gm/dl (11.8-15.2); Mean Corpuscular HGB Conc 33 % (32-34); Mean Corpuscular Volume 91 fl (84-94); Platelet Count 479 K/mm3 (140-440); Red Blood Count 2.73 M/mm3 (3.65-5.03); Red Cell Distribution Width 14.2 % (13.2-15.2)
[2018-11-19] MEDS ORDERED: VERSED ONE (13:10)
[2018-11-19] MEDS ORDERED: DIPRIVAN 10 MG/ML IV ONE (13:10)
[2018-11-19] MEDS ORDERED: NACL 0.9% 1000 ML 1,000 ML ONE (13:17)
--- NOTE | 2018-11-19 14:21 | Progress Note ---
Assessment and Plan Severe renal failure due to GENEVIEVE on CKD, now ESRD on HD S/P High Anion Gap Metabolic Acidosis with elevated lactic acidosis with DKA: S/P Hyperkalemia: S/P Hyperphosphatemia: Hypernatremia: Hypokalemia, Resolving: - HD today for clearance and volume removal - Strict monitoring of I/O's - Hypernatremia- resolved On free water flushes of 250 ml every 4 hours via NG tube - Monitor BMP daily - Renally dose medications - Avoid Nephrotoxic agents - Obtain daily weights - Salgado Catheter: Yes - Assess dialysis needs daily S/p Cardiopulmonary arrest. STEMI: Hypoxic respiratory failure: -S/P CPR and ACLS protocol -Now off pressor support -Cardiology on board -Intubated on Vent. 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 per neurology -On IV Keppra -As per Neurology Subjective Date of service: 11/19/18 Principal diagnosis: Ac hypoxemic resp failure; DKA; Severe sepsis with shock; ESRD on dialysis Interval history: intubated, no family at bedside Objective - Vital Signs Vital signs: Vital Signs - 12hr 11/19/18 11/19/18 11/19/18 02:30 02:53 03:00 Temperature Pulse Rate 101 H 101 H Pulse Rate [ From Monitor] Respiratory 19 20 Rate Blood Pressure 158/79 156/86 165/91 O2 Sat by Pulse 100 100 Oximetry O2 Sat by Pulse Oximetry [ Anterior Bilateral Throughout] 11/19/18 11/19/18 11/19/18 03:30 03:37 03:57 Temperature 100.5 F H Pulse Rate 96 H 97 H Pulse Rate [ From Monitor] Respiratory 20 Rate Blood Pressure 146/78 146/78 O2 Sat by Pulse 100 100 Oximetry O2 Sat by Pulse Oximetry [ Anterior Bilateral Throughout] 11/19/18 11/19/18 11/19/18 04:00 04:30 05:00 Temperature Pulse Rate 102 H 101 H 104 H Pulse Rate [ 94 H From Monitor] Respiratory 20 20 20 Rate Blood Pressure 157/90 159/86 165/88 O2 Sat by Pulse 100 99 100 Oximetry O2 Sat by Pulse Oximetry [ Anterior Bilateral Throughout] 0611/19/18 11/19/18 05:30 06:00 06:30 Temperature Pulse Rate 99 H 102 H 103 H Pulse Rate [ From Monitor] Respiratory 20 20 20 Rate Blood Pressure 169/92 172/100 170/94 O2 Sat by Pulse 100 100 100 Oximetry O2 Sat by Pulse Oximetry [ Anterior Bilateral Throughout] 11/19/18 11/19/18 11/19/18 06:54 07:00 07:30 Temperature Pulse Rate 101 H 93 H Pulse Rate [ From Monitor] Respiratory 20 20 Rate Blood Pressure 160/86 152/88 150/85 O2 Sat by Pulse 100 100 Oximetry O2 Sat by Pulse Oximetry [ Anterior Bilateral Throughout] 11/19/18 11/19/18 11/19/18 08:00 08:29 08:30 Temperature 97.8 F 97.8 F Pulse Rate 94 H 100 H 95 H Pulse Rate [ 94 H From Monitor] Respiratory 20 20 Rate Blood Pressure 164/91 180/90 O2 Sat by Pulse 100 100 Oximetry O2 Sat by Pulse 100 Oximetry [ Anterior Bilateral Throughout] 11/19/18 11/19/18 11/19/18 08:40 08:45 09:00 Temperature Pulse Rate 94 H 91 H 92 H Pulse Rate [ From Monitor] Respiratory 20 Rate Blood Pressure 180/90 152/78 137/82 O2 Sat by Pulse 100 Oximetry O2 Sat by Pulse Oximetry [ Anterior Bilateral Throughout] 11/19/18 11/19/18 11/19/18 09:15 09:29 09:30 Temperature Pulse Rate 94 H 94 H 95 H Pulse Rate [ From Monitor] Respiratory 20 Rate Blood Pressure 136/78 125/77 125/77 O2 Sat by Pulse 100 100 Oximetry O2 Sat by Pulse Oximetry [ Anterior Bilateral Throughout] 11/19/18 11/19/18 11/19/18 09:45 10:00 10:15 Temperature Pulse Rate 95 H 93 H 92 H Pulse Rate [ From Monitor] Respiratory 20 Rate Blood Pressure 120/74 119/73 118/72 O2 Sat by Pulse 100 Oximetry O2 Sat by Pulse Oximetry [ Anterior Bilateral Throughout] 11/19/18 11/19/18 11/19/18 10:30 10:33 10:45 Temperature Pulse Rate 89 90 94 H Pulse Rate [ From Monitor] Respiratory 20 Rate Blood Pressure 111/73 111/73 120/77 O2 Sat by Pulse 100 Oximetry O2 Sat by Pulse Oximetry [ Anterior Bilateral Throughout] 11/19/18 11/19/18 11/19/18 11:00 11:15 11:30 Temperature Pulse Rate 99 H 102 H 99 H Pulse Rate [ From Monitor] Respiratory 23 20 Rate Blood Pressure 154/92 143/84 113/73 O2 Sat by Pulse 100 100 Oximetry O2 Sat by Pulse Oximetry [ Anterior Bilateral Throughout] 11/19/18 11/19/18 11/19/18 11:40 11:58 12:00 Temperature 97.2 F L 97.2 F L Pulse Rate 101 H 102 H 98 H Pulse Rate [ 98 H From Monitor] Respiratory 19 20 Rate Blood Pressure 102/69 108/69 112/74 O2 Sat by Pulse 99 Oximetry O2 Sat by Pulse 100 Oximetry [ Anterior Bilateral Throughout] 11/19/18 11/19/18 11/19/18 12:30 13:00 13:30 Temperature Pulse Rate 105 H 108 H 108 H Pulse Rate [ From Monitor] Respiratory 22 20 20 Rate Blood Pressure 141/77 120/69 128/77 O2 Sat by Pulse 99 100 98 Oximetry O2 Sat by Pulse Oximetry [ Anterior Bilateral Throughout] 11/19/18 14:00 Temperature Pulse Rate 110 H Pulse Rate [ From Monitor] Respiratory 20 Rate Blood Pressure 135/68 O2 Sat by Pulse 99 Oximetry O2 Sat by Pulse Oximetry [ Anterior Bilateral Throughout] - General Appearance General appearance: well-developed, well-nourished, intubated EENT: ATNC, PERRL, mucous membranes moist Neck: no JVD, no carotid bruit Respiratory: Present: Clear to Ascultation. Absent: Rales, Ronchi Cardiology: regular, S1S2 Gastrointestinal: normoactive bowel sounds Integumentary: no rash, warm and dry Neurologic: other (intubated) Musculoskeletal: other (trace pitting edema in BLE) Psychiatric: other (intubated ) - Lab 11/19/18 12:41 11/19/18 04:24 Most recent lab results Calcium 9.5 mg/dL (8.4-10.2) 11/19/18 04:24 Phosphorus 3.50 mg/dL (2.5-4.5) 11/12/18 04:44 Magnesium 2.40 mg/dL (1.7-2.3) H 11/17/18 04:45 Medications & Allergies - Medications Allergies/Adverse Reactions: Allergies No Known Allergies Allergy (Verified 03/17/18 11:54) Home Medications: Home Medications Medication Instructions Recorded Confirmed Last Taken Type Esomeprazole Magnesium [NexIUM] 20 mg PO QDAY #30 suspdr.pkt 03/17/18 11/07/18 Unknown Rx HYDROcodone/APAP 5-325 [[place] 1 each PO Q6HR PRN #15 tablet 03/17/18 11/07/18 Unknown Rx 5/325] Metoclopramide [Reglan] 10 mg PO TID #21 tab 03/17/18 11/07/18 Unknown Rx Ondansetron [Zofran Odt] 4 mg PO Q4HR PRN #20 tab.rapdis 03/17/18 11/07/18 Unknown Rx Active Medications: Generic Name Dose Route Start Last Admin Trade Name Freq PRN Reason Stop Dose Admin Acetaminophen 650 mg 11/06/18 22:22 11/18/18 11:54 Tylenol FEEDTUBE 650 mg Q6H PRN Administration Fever >101 Lipase/Protease/Amylase 1 each 11/08/18 18:38 Pancreaze 10,500 Unit FEEDTUBE PRN PRN For Clogged Feeding Tube Chlorpromazine HCl 10 mg 11/07/18 08:07 11/18/18 07:58 Thorazine PO 10 mg Q6H PRN Administration Hiccups Clonazepam 0.5 mg 11/12/18 16:49 11/13/18 23:10 Klonopin PO 0.5 mg Q12H PRN Administration myoclonic jerks Dextrose 50 ml 11/07/18 16:46 11/10/18 23:43 D50w (25gm) Syringe IV 50 ml PRN PRN Administration Hypoglycemia Epoetin Enoc 20,000 unit 11/18/18 13:46 11/19/18 10:11 Procrit IV 20,000 unit MARY PRN Administration hemodialysis Fentanyl 50 mcg 11/06/18 08:37 Sublimaze IV Q10MIN PRN ANALGESIA Hydralazine HCl 10 mg 11/08/18 00:56 11/14/18 08:34 Apresoline IV 10 mg Q4H PRN Administration Hypertension Hydralazine HCl 50 mg 11/14/18 09:16 11/19/18 06:54 Apresoline PO 50 mg Q8HR MARIAJOSE Administration Hydrophilic Ointment 1 applic 11/06/18 08:26 11/10/18 19:52 Vaseline Lip Therapy TP 1 applic Q2HR PRN Administration Dry Lips Fentanyl Citrate 2,000 mcg in 100 mls @ 4.309 mls/hr 11/06/18 10:00 11/18/18 04:45 Fentanyl Drip Premix IV 0.5 mcg/kg/hr TITR MARIAJOSE 2.155 mls/hr Administration Protocol 1 MCG/KG/HR Sodium Chloride 100 mls @ 999 mls/hr 11/14/18 11:33 Nacl 0.9% IV MARY PRN Hypotension Ceftriaxone Sodium 1 gm in 50 mls @ 100 mls/hr 11/19/18 12:00 11/19/18 13:26 Rocephin/Ns 1 Gm/50 Ml IV 100 mls/hr Q12HR MARIAJOSE Administration Protocol Insulin Human Isoph/Insulin Regular 36 unit 11/16/18 22:00 11/19/18 09:14 Humulin 70/30 SUB-Q Not Given BID MARIAJOSE Insulin Human Regular 0 units 11/07/18 18:00 11/19/18 12:16 Humulin R SUB-Q 3 units Q6HR MARIAJOSE Administration Protocol Lansoprazole 30 mg 11/09/18 10:00 11/19/18 09:13 Prevacid Solutab FEEDTUBE 30 mg BID MARIAJOSE Administration Levetiracetam 750 mg 11/18/18 10:00 11/19/18 09:13 Keppra PO 750 mg BID MARIAJOSE Administration Lorazepam 2 mg 11/12/18 08:31 11/15/18 14:25 Ativan IV 2 mg Q4H PRN Administration Agitation Metoprolol Tartrate 50 mg 11/14/18 10:00 11/19/18 02:53 Lopressor PO 50 mg Q6H MARIAJOSE Administration Modafinil 200 mg 11/17/18 10:00 11/19/18 09:14 Provigil PO 200 mg QAM MARIAJOSE Administration Multi-Ingred Cream/Lotion/Oil/Oint 1 applic 11/06/18 08:26 Artificial Tears Ophth Oint OU Q4HR PRN Dry Eye(s) Simple Syrup 15 ml 11/08/18 18:38 Simple Syrup FEEDTUBE PRN PRN Hypoglycemia Simple Syrup 30 ml 11/08/18 18:38 Simple Syrup FEEDTUBE PRN PRN Hypoglycemia Sodium Bicarbonate 325 mg 06/02/19 18:38 Sodium Bicarbonate FEEDTUBE PRN PRN For Clogged Feeding Tube Sodium Chloride 10 ml 11/06/18 22:00 11/18/18 21:46 Sodium Chloride Flush Syringe 10 Ml IV 10 ml BID MARIAJOSE Administration Sodium Chloride 10 ml 11/06/18 12:42 11/13/18 10:30 Sodium Chloride Flush Syringe 10 Ml IV 10 ml PRN PRN Administration LINE FLUSH Tamsulosin HCl 0.4 mg 11/10/18 13:00 11/19/18 09:13 Flomax PO 0.4 mg QDAY MARIAJOSE Administration
--- NOTE | 2018-11-19 14:44 | Procedure Note ---
Date of procedure: 11/19/18 Pre-op diagnosis: respiratory failure Post-op diagnosis: same Procedure: Consent was on the chart. Time out was performed. Sterile prep and drape was done. Anesthesia was managed by anesthesia provider. Lidocaine was used to anesthetize an area about two finger breadths above the sternal notch. Transverse incision was made. Blunt dissection was carried down to trachea. Under bronchoscopic guidance, a finder needle was used to enter the trachea. Thereafter, the introducer needle was inserted. It was approximately at the second tracheal ring. Tract was dilated and tracheostomy tube was easily inserted. Balloon was inflated. Position was rechecked via bronchoscopy through the tracheostomy tube. We were at least 3 cm above the rolando. We had good inspiratory and expiratory volumes. CXR shows the tube to be in good position. There were no apparent complications at the end of the case. Findings: normal anatomy. deep trachea. mildly prominent thyroid gland Implants: 8 Shiley trach Anesthesia: MAC Surgeon: JETT BURRELL Subway Guard: TAYLOR ESCAMILLA (bronch) Estimated blood loss: minimal Pathology: none Condition: stable Disposition: ICU
--- NOTE | 2018-11-19 14:53 | Procedure Note ---
Date of procedure: 11/19/18 Pre-op diagnosis: VDRF Post-op diagnosis: same Procedure: fiberoptic bronchoscopy Findings: Time out performed. Bronchoscope was inserted through an adaptor attached to the ETT. Trachea was examined and was clear without exudate or secretions. The ETT was pulled back slowly to 18 cm until the finder needle was able to be inserted into the trachea by Dr. Haskins. Dr. Haskins performed the tracheostomy. The needle was seen entering the trachea and wire passed towards the rolando. The tracheostomy was then placed in the usual fashion. The balloon was seen in the trachea. The bronchoscope was withdrawn from the ETT and placed through the tracheostomy. The tip of the tracheostomy was 3 cm above the rolando. There was no bleeding or secretions. The bronchoscope was withdrawn and vent hooked to the tracheostomy. Tidal volumes were satisfactory and ETT removed. Anesthesia: JIM Surgeon: TAYLOR ESCAMILLA Estimated blood loss: minimal Pathology: none Condition: stable Disposition: no change
--- NOTE | 2018-11-19 14:58 | Procedure Note ---
Date of procedure: 11/19/18 Pre-op diagnosis: VDRF Post-op diagnosis: same Procedure: PEG tube Findings: Time out performed. Endoscope passed through mouth and into esophagus, using dobhoff tube for guidance. The endoscope was advanced into the stomach. The stomach was unremarkable. The dobhoff tube was removed. The stomach was insufflated and transillumination performed. Transillumination was successful and an appropriate location was chosen on the abdominal wall for placement of PEG. Dr. Burrell performed PEG. Local anesthetic was infiltrated into the skin. A small incision was made using a 11 blade. A needle/breakaway catheter was inserted into the stomach through the incision which was seen entering the stomach by endoscopy. The wire was inserted and grasped with the snare and withdrawn through the mouth along with the endoscope. The PEG tube was attached to the wire and pulled through the mouth and into the stomach. The outer bumper was at 4 cm at the skin. The endoscope was once again placed through the mouth, advanced through the esophagus and into the stomach. The inner bumper was seen to lay flush against the mucosa without tension. The bondy, antrum, fundus of the stomach was unremarkable. The first portion of the duodenum was un remarkable. The stomach was desufflated and the endoscope pulled back into the esophagus. The esophagus was unremarkable. The PEG was assembled in the usual fashion and clamped. The patient tolerated the procedure well. All sharps were disposed of appropriately. Anesthesia: jackie FERNANDEZ Surgeon: TAYLOR ESCAMILLA Web Database Developer: JETT BURRELL ([email or web address]) Estimated blood loss: minimal Pathology: none Condition: stable Disposition: no change
[2018-11-19] MEDS ORDERED: NORMODYNE IV ONE (15:02)
[2018-11-19] MEDS ORDERED: XYLOCAINE MPF 2% ONE (15:02)
--- NOTE | 2018-11-19 15:19 | Consultation ---
History of Present Illness - Reason for Consult Consult date: 11/19/18 UTI Requesting physician: PATT VALLE - History of Present Illness The patient is a 42-year-old male with ESRD on hemodialysis, hypertension, diabetes mellitus, peripheral vascular disease, tobacco abuse was brought into the emergency room on 11/06/2018 after he was noted to be unresponsive and was found down by the family. EMS was called who intubated the patient and brought him to the ED. Patient had a cardiac arrest in the emergency room requiring ACLS. Subsequently, he had ROSC. Patient was noted to be in diabetic ketoacidosis along with metabolic acidosis, acute hypoxic respiratory failure, hyperkalemia and shock. Initial infectious workup was negative and empiric antibiotics were discontinued. Patient has had a prolonged hospital stay with concerns for possible anoxic brain injury. He is being followed by nephrology and neurology. He underwent a scheduled tracheostomy and PEG tube placement today. On 11/17/2018, patient spiked a fever of 101.3F and since then, has had low- grade temperatures. Hence, infectious diseases was consulted. Patient is unable to provide history, history obtained by chart review and by speaking to the bedside nurse. Patient currently has a midline. He had been tolerating tube feeds so far. He has been getting intermittent straight catheterizations. UA showed pyuria with urine culture growing gram-negative rods. Review of Systems: Cannot be obtained due to altered mental status. Past History Past Medical History: ESRD (patient has AV fistula for hemodialysis since August of this year. It was felt he was not getting it to lately. Patient also has history of amputation of toes for PAD. No definite history of coronary artery disease), hypertension Past Surgical History: Other (Right Foot Surgery, AV Fistula) Social history: single, smoking. denies: alcohol abuse, prescription drug abuse Family history: diabetes, hypertension Medications and Allergies Allergies Allergy/AdvReac Type Severity Reaction Status Date / Time No Known Allergies Allergy Verified 03/17/18 11:54 Home Medications Medication Instructions Recorded Confirmed Last Taken Type Esomeprazole Magnesium [NexIUM] 20 mg PO QDAY #30 suspdr.pkt 03/17/18 11/07/18 Unknown Rx HYDROcodone/APAP 5-325 [[place] 1 each PO Q6HR PRN #15 tablet 03/17/18 11/07/18 Unknown Rx 5/325] Metoclopramide [Reglan] 10 mg PO TID #21 tab 03/17/18 11/07/18 Unknown Rx Ondansetron [Zofran Odt] 4 mg PO Q4HR PRN #20 tab.saurabhdis 03/17/18 11/07/18 Unknown Rx Active Meds: Active Medications Acetaminophen (Tylenol) 650 mg FEEDTUBE Q6H PRN PRN Reason: Fever >101 Last Admin: 11/18/18 11:54 Dose: 650 mg Documented by: Lipase/Protease/Amylase (Macho Whatley 10,500 Unit) 1 each FEEDTUBE PRN PRN PRN Reason: For Clogged Feeding Tube Chlorpromazine HCl (Thorazine) 10 mg PO Q6H PRN PRN Reason: Hiccups Last Admin: 11/18/18 07:58 Dose: 10 mg Documented by: Clonazepam (Klonopin) 0.5 mg PO Q12H PRN PRN Reason: myoclonic jerks Last Admin: 11/13/18 23:10 Dose: 0.5 mg Documented by: Dextrose (D50w (25gm) Syringe) 50 ml IV PRN PRN PRN Reason: Hypoglycemia Last Admin: 11/10/18 23:43 Dose: 50 ml Documented by: Epoetin Enoc (Procrit) 20,000 unit IV MARY PRN PRN Reason: hemodialysis Last Admin: 11/19/18 10:11 Dose: 20,000 unit Documented by: Fentanyl (Sublimaze) 50 mcg IV Q10MIN PRN PRN Reason: ANALGESIA Hydralazine HCl (Apresoline) 10 mg IV Q4H PRN PRN Reason: Hypertension Last Admin: 11/14/18 08:34 Dose: 10 mg Documented by: Hydralazine HCl (Apresoline) 50 mg PO Q8HR MARIAJOSE Last Admin: 11/19/18 06:54 Dose: 50 mg Documented by: Hydrophilic Ointment (Vaseline Lip Therapy) 1 applic TP Q2HR PRN PRN Reason: Dry Lips Last Admin: 11/10/18 19:52 Dose: 1 applic Documented by: Fentanyl Citrate (Fentanyl Drip Premix) 2,000 mcg in 100 mls @ 4.309 mls/hr IV TITR MARIAJOSE; Protocol Last Admin: 11/18/18 04:45 Dose: 0.5 mcg/kg/hr, 2.155 mls/hr Documented by: Sodium Chloride (Nacl 0.9%) 100 mls @ 999 mls/hr IV MARY PRN PRN Reason: Hypotension Ceftriaxone Sodium (Rocephin/Ns 1 Gm/50 Ml) 1 gm in 50 mls @ 100 mls/hr IV Q12HR [facility]; Protocol Last Admin: 11/19/18 13:26 Dose: 100 mls/hr Documented by: Insulin Human Isoph/Insulin Regular (Humulin 70/30) 36 unit SUB-Q BID [facility] Last Admin: 11/19/18 09:14 Dose: Not Given Documented by: Insulin Human Regular (Humulin R) 0 units SUB-Q Q6HR [facility]; Protocol Last Admin: 11/19/18 12:16 Dose: 3 units Documented by: Lansoprazole (Prevacid Solutab) 30 mg FEEDTUBE BID [facility] Last Admin: 11/19/18 09:13 Dose: 30 mg Documented by: Levetiracetam (Keppra) 750 mg PO BID [facility] Last Admin: 11/19/18 09:13 Dose: 750 mg Documented by: Lorazepam (Ativan) 2 mg IV Q4H PRN PRN Reason: Agitation Last Admin: 11/15/18 14:25 Dose: 2 mg Documented by: Metoprolol Tartrate (Lopressor) 50 mg PO Q6H [facility] Last Admin: 11/19/18 02:53 Dose: 50 mg Documented by: Modafinil (Provigil) 200 mg PO QAM [facility] Last Admin: 11/19/18 09:14 Dose: 200 mg Documented by: Multi-Ingred Cream/Lotion/Oil/Oint (Artificial Tears Ophth Oint) 1 applic OU Q4HR PRN PRN Reason: Dry Eye(s) Simple Syrup (Simple Syrup) 15 ml FEEDTUBE PRN PRN PRN Reason: Hypoglycemia Simple Syrup (Simple Syrup) 30 ml FEEDTUBE PRN PRN PRN Reason: Hypoglycemia Sodium Bicarbonate (Sodium Bicarbonate) 325 mg FEEDTUBE PRN PRN PRN Reason: For Clogged Feeding Tube Sodium Chloride (Sodium Chloride Flush Syringe 10 Ml) 10 ml IV BID [facility] Last Admin: 11/18/18 21:46 Dose: 10 ml Documented by: Sodium Chloride (Sodium Chloride Flush Syringe 10 Ml) 10 ml IV PRN PRN PRN Reason: LINE FLUSH Last Admin: 11/13/18 10:30 Dose: 10 ml Documented by: Tamsulosin HCl (Flomax) 0.4 mg PO QDAY MARIAJOSE Last Admin: 11/19/18 09:13 Dose: 0.4 mg Documented by: Physical Examination - Physical Exam Narrative exam: Physical Exam: Constitutional: unresponsive Head, Ears, Nose: Normocephalic, atraumatic. External ears, nose normal Eyes: Conjunctivae/corneas clear. No icterus. No ptosis. Neck: trach + Oral: unable to examine Cardiovascular: S1, S2 normal. Respiratory: b/l rhonchi + GI: Soft; bowel sounds normal. No peritoneal signs. PEG + Musculoskeletal: No pedal edema, no cyanosis. LUE AVF + with thrill. Right arm midline + Skin: No rash or abscess Hem/Lymphatic: No palpable cervical or supraclavicular nodes. No lymphangitis Psych: no agitation Neurological: unresponsive - Constitutional Vitals: Vital Signs Temp Pulse Resp BP Pulse Ox 97.2 F L 110 H 20 135/68 99 11/19/18 12:00 11/19/18 14:00 11/19/18 14:00 11/19/18 14:00 11/19/18 14:00 Temperature -Last 24 Hours Temperature 97.2 F Temperature 97.2 F Temperature 97.8 F Temperature 97.8 F Temperature 97.6 F Temperature 100.5 F Temperature 99.8 F Temperature 100.0 F Temperature 99.1 F Results - Labs CBC & Chem 7: 11/19/18 12:41 11/19/18 04:24 Labs: Abnormal lab results 11/18/18 11/18/18 11/19/18 Range/Units 19:37 23:21 04:24 WBC (4.5-11.0) K/mm3 RBC (3.65-5.03) M/mm3 Hgb (11.8-15.2) gm/dl Hct (35.5-45.6) % Plt Count (140-440) K/mm3 Sodium 134 L (137-145) mmol/L Potassium 5.4 H (3.6-5.0) mmol/L Chloride 89.8 L (98-107) mmol/L BUN 54 H (9-20) mg/dL Creatinine 8.0 H (0.8-1.5) mg/dL Glucose 240 H (75-100) mg/dL POC Glucose 207 H 245 H (70-105) 11/19/18 11/19/18 11/19/18 Range/Units 05:21 12:01 12:41 WBC 13.7 H (4.5-11.0) K/mm3 RBC 2.73 L (3.65-5.03) M/mm3 Hgb 8.3 L (11.8-15.2) gm/dl Hct 24.9 L (35.5-45.6) % Plt Count 479 H (140-440) K/mm3 Sodium (137-145) mmol/L Potassium (3.6-5.0) mmol/L Chloride (98-107) mmol/L BUN (9-20) mg/dL Creatinine (0.8-1.5) mg/dL Glucose (75-100) mg/dL POC Glucose 234 H 179 H (70-105) - Imaging and Cardiology Chest x-ray: image reviewed (trach +, no evidence of pneumonia) Assessment and Plan Cultures: 11/06/2018 blood culture: No growth 11/06/2018 urine culture: No growth 11/06/2018 sputum culture: Usual respiratory diana 11/18/2018 blood culture: In process 11/18/2018 urine culture: Gram-negative rods A/P: 42-year-old male with ESRD on hemodialysis, hypertension, diabetes mellitus, peripheral vascular disease, tobacco abuse was brought into the emergency room on 11/06/2018 after he was noted to be unresponsive and was found down by the family. EMS intubated the patient and brought him to the ED. Patient had a cardiac arrest in the emergency room requiring ACLS. Subsequently, he had ROSC. Prolonged hospital stay, concerning for anoxic brain injury, now s/p trach and PEG. 1) Sepsis: new, possibly related to UTI. Per discussion with RN, sample was from I/O cath. UA showed pyuria with urine culture growing gram-negative rods. Chest x-ray today does not suggest any pneumonia. Blood cultures so far have been negative. Treat empirically with Cefepime. 2) Anoxic encephalopathy, status post cardiopulmonary arrest 3) ESRD: On dialysis. Renally dose abx. 4) DM, uncontrolled, admitted with DKA 5) Shock liver on admission, now resolved 6) Reactive thrombocytosis Recs: discontinued Ceftriaxone started IV Cefepime 1 gm q24 hrs renally adjusted f/u fever, WBC and urine culture results D/W Dr. Valle. MD [facility] C: [phone] O: [phone] F: [phone]
--- NOTE | 2018-11-19 15:28 | XRay Report ---
PROCEDURE: XR CHEST 1V AP TECHNIQUE: Chest radiograph single view. HISTORY: S/P TRACH FINDINGS: Single frontal view of the chest was acquired and compared to the prior examination of November 23, 2018. The heart is normal in size. There is minimal right basilar linear atelectasis. There is no acute inf iltrate. There is a tracheostomy. IMPRESSION: Tracheostomy which appears to lie in appropriate position This document is electronically signed by Paul Lackey MD., November 19 2018 03:26:19 PM ET
--- NOTE | 2018-11-19 16:11 | Progress Note ---
Assessment and Plan / Febrile illness with UTI - spiked fever yesterday, urine cx showing gm negative rods - Start on Rocephin, consult ID /S/P Cardiopulmonary Arrest- Possibly from renal failure with severe DKA and underlying CHF 2d echo showed Ef 30-35% cont ventilatory support, nebulizers, monitor ins/os /Anoxic Encephalopathy; from cardiac arrest neurology following, supportive care Poor prognosis, follow EEG /-Acute Hypoxic Respiratory failure; on ventilatory support cont weaning parameters, failed to extubate s/p trach and PEG today /-Accelerated hypertension; Continue current meds when PEG tube is accessible, for now use IV labetalol as needed / DKA-corrected; uncontrolled blood sugars, a1c 10.1 Accu-Chek sliding scale coverage and ADA diet, on 70/30 insulin, adjust the dose Dose as needed / SIRS, POA, likely from DKA and renal failure. 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 closely monitor platelets /-Seizure Disorder; seizure precautions cont Antiepileptic medications, neurology following, EEG findings noted /-Acute Kidney Injury secondary to ischemic ATN from hypotension, Hemodialysis per schedule nephrology following /-Cardiogenic Shock; improved /-Anemia of chronic disease; monitor H&H and transfuse as needed /-Severe malnutrition/nutritional supplements, nutrition consult; /-PAD; no statin for abnormal liver function /-Shock Liver; with transaminitis, trending down, cont to monitor, supportive care /CHF with EF 30-35% - monitor volume status, cardiology following --DVT prophylaxis; SCDs --Full CODE STATUS Very poor prognosis. Plan of care is reviewed with the patient's mother in detail Critical care time 34 minutes Disposition : Possible trach and peg, will need placement Brief History 42 YO Male with ESRD on HD, HTN, DM, PAD, Nicotine Dependence presents to ED for evaluation. As per family, the patient was in his usual state of health around bedtime at 2200hrs. Pt was found down and unresponsive by family the next morning. EMS notified, and upon arrival the patient was found to be in distress. Pt Intubated and placed on vent support. Pt transported to [facility]. Pt seen and evaluated in ED and found to have STEMI, Acute on Chronic Renal Failure, Acidosis, Acute Respiratory Failure, Sepsis, and DKA. Pt experienced cardiac arrest in ED and was treated IAW ACLS protocol with return of perfusing cardiac rhythm. Pt found to have signs of Anoxic Brain Injury. Pt admitted to ICU and initiated on sepsis protocol and treated with IVF resuscitation therapy, IV pressor support. Pt has poor prognosis. Neurology , Cardiology ,pulm and Nephrology are following,receiving HD per nephrology, Vent dependent with poor prognosis, planning Trach and PEG and placement. Hospitalist Physical General appearance: Present: no acute distress, well-nourished, other (intubated on vent) - EENT Eyes: Present: PERRL - Neck Neck: Present: supple, normal ROM - Respiratory Respiratory effort: normal Respiratory: bilateral: diminished, rhonchi, negative: rales, wheezing - Cardiovascular Rhythm: regular Heart Sounds: Present: S1 & S2 - Extremities Extremities: no ischemia, No edema - Abdominal General gastrointestinal: soft, non-tender, non-distended, normal bowel sounds, hypoactive bowel sounds - Integumentary Integumentary: Present: clear, warm - Psychiatric Psychiatric: other (on vent) - Neurologic Neurologic: other (on vent) Subjective Date of service: 11/19/18 Principal diagnosis: Ac hypoxemic resp failure; DKA; Severe sepsis with shock; ESRD on dialysis Interval history: Patient seen and examined Status post HD at bedside Also placed on trach and PEG BP appears to be uncontrolled following trach and PEG placement Objective - Constitutional Vitals: Vital Signs - 12hr 11/19/18 11/19/18 11/19/18 04:30 05:00 05:30 Temperature Pulse Rate 101 H 104 H 99 H Pulse Rate [ From Monitor] Respiratory 20 20 20 Rate Blood Pressure 159/86 165/88 169/92 O2 Sat by Pulse 99 100 100 Oximetry O2 Sat by Pulse Oximetry [ Anterior Bilateral Throughout] 11/19/18 11/19/18 11/19/18 06:00 06:30 06:54 Temperature Pulse Rate 102 H 103 H Pulse Rate [ From Monitor] Respiratory 20 20 Rate Blood Pressure 172/100 170/94 160/86 O2 Sat by Pulse 100 100 Oximetry O2 Sat by Pulse Oximetry [ Anterior Bilateral Throughout] 11/19/18 11/19/18 11/19/18 07:00 07:30 08:00 Temperature 97.8 F Pulse Rate 101 H 93 H 94 H Pulse Rate [ 94 H From Monitor] Respiratory 20 20 20 Rate Blood Pressure 152/88 150/85 164/91 O2 Sat by Pulse 100 100 100 Oximetry O2 Sat by Pulse Oximetry [ Anterior Bilateral Throughout] 11/19/18 11/19/18 11/19/18 08:29 08:30 08:40 Temperature 97.8 F Pulse Rate 100 H 95 H 94 H Pulse Rate [ From Monitor] Respiratory 20 Rate Blood Pressure 180/90 180/90 O2 Sat by Pulse 100 Oximetry O2 Sat by Pulse 100 Oximetry [ Anterior Bilateral Throughout] 11/19/18 11/19/18 11/19/18 08:45 09:00 09:15 Temperature Pulse Rate 91 H 92 H 94 H Pulse Rate [ From Monitor] Respiratory 20 Rate Blood Pressure 152/78 137/82 136/78 O2 Sat by Pulse 100 Oximetry O2 Sat by Pulse Oximetry [ Anterior Bilateral Throughout] 11/19/18 11/19/18 11/19/18 09:29 09:30 09:45 Temperature Pulse Rate 94 H 95 H 95 H Pulse Rate [ From Monitor] Respiratory 20 Rate Blood Pressure 125/77 125/77 120/74 O2 Sat by Pulse 100 100 Oximetry O2 Sat by Pulse Oximetry [ Anterior Bilateral Throughout] 11/19/18 11/19/18 11/19/18 10:00 10:15 10:30 Temperature Pulse Rate 93 H 92 H 89 Pulse Rate [ From Monitor] Respiratory 20 20 Rate Blood Pressure 119/73 118/72 111/73 O2 Sat by Pulse 100 100 Oximetry O2 Sat by Pulse Oximetry [ Anterior Bilateral Throughout] 11/19/18 11/19/18 11/19/18 10:33 10:45 11:00 Temperature Pulse Rate 90 94 H 99 H Pulse Rate [ From Monitor] Respiratory 23 Rate Blood Pressure 111/73 120/77 154/92 O2 Sat by Pulse 100 Oximetry O2 Sat by Pulse Oximetry [ Anterior Bilateral Throughout] 11/19/18 11/19/18 11/19/18 11:15 11:30 11:40 Temperature Pulse Rate 102 H 99 H 101 H Pulse Rate [ From Monitor] Respiratory 20 Rate Blood Pressure 143/84 113/73 102/69 O2 Sat by Pulse 100 Oximetry O2 Sat by Pulse Oximetry [ Anterior Bilateral Throughout] 11/19/18 11/19/18 11/19/18 11:58 12:00 12:30 Temperature 97.2 F L 97.2 F L Pulse Rate 102 H 98 H 105 H Pulse Rate [ 98 H From Monitor] Respiratory 19 20 22 Rate Blood Pressure 108/69 112/74 141/77 O2 Sat by Pulse 99 99 Oximetry O2 Sat by Pulse 100 Oximetry [ Anterior Bilateral Throughout] 11/19/18 11/19/18 11/19/18 13:00 13:30 14:00 Temperature Pulse Rate 108 H 108 H 110 H Pulse Rate [ From Monitor] Respiratory 20 20 20 Rate Blood Pressure 120/69 128/77 135/68 O2 Sat by Pulse 100 98 99 Oximetry O2 Sat by Pulse Oximetry [ Anterior Bilateral Throughout] 11/19/18 14:50 Temperature Pulse Rate 108 H Pulse Rate [ From Monitor] Respiratory Rate Blood Pressure 186/108 O2 Sat by Pulse 100 Oximetry O2 Sat by Pulse Oximetry [ Anterior Bilateral Throughout] - Labs CBC & Chem 7: 11/20/18 10:25 11/20/18 10:25 Labs: Abnormal lab results 11/18/18 11/18/18 11/19/18 Range/Units 19:37 23:21 04:24 WBC (4.5-11.0) K/mm3 RBC (3.65-5.03) M/mm3 Hgb (11.8-15.2) gm/dl Hct (35.5-45.6) % Plt Count (140-440) K/mm3 Sodium 134 L (137-145) mmol/L Potassium 5.4 H (3.6-5.0) mmol/L Chloride 89.8 L (98-107) mmol/L BUN 54 H (9-20) mg/dL Creatinine 8.0 H (0.8-1.5) mg/dL Glucose 240 H (75-100) mg/dL POC Glucose 207 H 245 H (70-105) 11/19/18 11/19/18 11/19/18 Range/Units 05:21 12:01 12:41 WBC 13.7 H (4.5-11.0) K/mm3 RBC 2.73 L (3.65-5.03) M/mm3 Hgb 8.3 L (11.8-15.2) gm/dl Hct 24.9 L (35.5-45.6) % Plt Count 479 H (140-440) K/mm3 Sodium (137-145) mmol/L Potassium (3.6-5.0) mmol/L Chloride (98-107) mmol/L BUN (9-20) mg/dL Creatinine (0.8-1.5) mg/dL Glucose (75-100) mg/dL POC Glucose 234 H 179 H (70-105)
[2018-11-19] MEDS: NORMODYNE IV PRN (17:32)
[2018-11-19] MEDS: MAXIPIME/NS 1 GM/100 ML 1 GM/100 ML BAG IV SCH (18:01)
[2018-11-19] MEDS: fentaNYL DRIP Premix 2,000 MCG/100 ML BAG IV SCH (21:18)
[2018-11-19] MEDS: SODIUM CHLORIDE FLUSH SYRINGE 10 ML IV SCH (21:25)
[2018-11-20] MEDS: HumuLIN R SUB-Q SCH ×5 (00:03→23:55)
[2018-11-20] MEDS: LOPRESSOR PO SCH ×4 (04:05→22:21)
--- NOTE | 2018-11-20 09:12 | Progress Note ---
Assessment and Plan Severe renal failure due to GENEVIEVE on CKD, now ESRD on HD S/P High Anion Gap Metabolic Acidosis with elevated lactic acidosis with DKA: S/P Hyperkalemia: S/P Hyperphosphatemia: Hypernatremia: Hypokalemia, Resolving: - no indication for HD today - Strict monitoring of I/O's - Hypernatremia- resolved - Monitor BMP daily - Renally dose medications - Avoid Nephrotoxic agents - Obtain daily weights - Salgado Catheter: Yes - Assess dialysis needs daily S/p Cardiopulmonary arrest. STEMI: Hypoxic respiratory failure: -S/P CPR and ACLS protocol -Now off pressor support -Cardiology on board -Intubated on Vent. 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 per neurology -On IV Keppra -As per Neurology Subjective Date of service: 11/20/18 Principal diagnosis: Ac hypoxemic resp failure; DKA; Severe sepsis with shock; ESRD on dialysis Objective - Vital Signs Vital signs: Vital Signs - 12hr 11/19/18 11/19/18 11/19/18 21:23 21:30 22:00 Temperature Pulse Rate 108 H 107 H 110 H Pulse Rate [ 110 H From Monitor] Respiratory 20 17 Rate Blood Pressure 168/89 167/93 169/95 O2 Sat by Pulse 100 100 Oximetry O2 Sat by Pulse Oximetry [ Assessment] 11/19/18 11/19/18 11/19/18 22:30 23:00 23:10 Temperature Pulse Rate 98 H 98 H 103 H Pulse Rate [ From Monitor] Respiratory 20 20 Rate Blood Pressure 133/80 123/78 123/78 O2 Sat by Pulse 100 100 100 Oximetry O2 Sat by Pulse Oximetry [ Assessment] 11/19/18 11/20/18 11/20/18 23:30 00:00 00:30 Temperature 99.0 F Pulse Rate 99 H 99 H 101 H Pulse Rate [ 99 H From Monitor] Respiratory 20 20 20 Rate Blood Pressure 147/81 160/88 160/87 O2 Sat by Pulse 100 100 100 Oximetry O2 Sat by Pulse Oximetry [ Assessment] 11/20/18 11/20/18 11/20/18 01:00 01:30 02:00 Temperature Pulse Rate 102 H 103 H 101 H Pulse Rate [ 101 H From Monitor] Respiratory 20 20 20 Rate Blood Pressure 171/89 158/84 151/82 O2 Sat by Pulse 100 100 100 Oximetry O2 Sat by Pulse Oximetry [ Assessment] 11/20/18 11/20/18 11/20/18 02:30 03:00 03:28 Temperature Pulse Rate 106 H 107 H 103 H Pulse Rate [ From Monitor] Respiratory 20 22 Rate Blood Pressure 165/92 167/96 167/96 O2 Sat by Pulse 100 100 100 Oximetry O2 Sat by Pulse Oximetry [ Assessment] 11/20/18 11/20/18 11/20/18 03:30 04:00 04:05 Temperature 98.8 F Pulse Rate 107 H 107 H 105 H Pulse Rate [ 126 H From Monitor] Respiratory 20 20 Rate Blood Pressure 177/101 166/81 166/81 O2 Sat by Pulse 100 100 Oximetry O2 Sat by Pulse Oximetry [ Assessment] 11/20/18 11/20/18 11/20/18 04:30 05:00 05:30 Temperature Pulse Rate 100 H 95 H 100 H Pulse Rate [ From Monitor] Respiratory 20 21 20 Rate Blood Pressure 167/94 160/94 174/96 O2 Sat by Pulse 100 100 100 Oximetry O2 Sat by Pulse Oximetry [ Assessment] 11/20/18 11/20/18 11/20/18 06:00 06:14 06:30 Temperature 98.2 F Pulse Rate 101 H 100 H Pulse Rate [ From Monitor] Respiratory 20 20 Rate Blood Pressure 176/103 154/79 O2 Sat by Pulse 100 100 Oximetry O2 Sat by Pulse Oximetry [ Assessment] 11/20/18 11/20/18 11/20/18 07:00 07:30 07:54 Temperature Pulse Rate 100 H 99 H 99 H Pulse Rate [ From Monitor] Respiratory 20 20 Rate Blood Pressure 140/74 149/82 149/82 O2 Sat by Pulse 100 100 100 Oximetry O2 Sat by Pulse Oximetry [ Assessment] 11/20/18 11/20/18 11/20/18 08:00 08:19 08:29 Temperature 98.5 F Pulse Rate 100 H 110 H Pulse Rate [ 100 H From Monitor] Respiratory 20 Rate Blood Pressure 155/89 O2 Sat by Pulse 100 Oximetry O2 Sat by Pulse 100 Oximetry [ Assessment] 11/20/18 08:31 Temperature Pulse Rate Pulse Rate [ From Monitor] Respiratory Rate Blood Pressure O2 Sat by Pulse 100 Oximetry O2 Sat by Pulse Oximetry [ Assessment] - Lab 11/19/18 12:41 11/19/18 04:24 Most recent lab results Calcium 9.5 mg/dL (8.4-10.2) 11/19/18 04:24 Phosphorus 3.50 mg/dL (2.5-4.5) 11/12/18 04:44 Magnesium 2.40 mg/dL (1.7-2.3) H 11/17/18 04:45 Medications & Allergies - Medications Allergies/Adverse Reactions: Allergies No Known Allergies Allergy (Verified 03/17/18 11:54) Home Medications: Home Medications Medication Instructions Recorded Confirmed Last Taken Type Esomeprazole Magnesium [NexIUM] 20 mg PO QDAY #30 suspdr.pkt 03/17/18 11/07/18 Unknown Rx HYDROcodone/APAP 5-325 [[place] 1 each PO Q6HR PRN #15 tablet 03/17/18 11/07/18 Unknown Rx 5/325] Metoclopramide [Reglan] 10 mg PO TID #21 tab 03/17/18 11/07/18 Unknown Rx Ondansetron [Zofran Odt] 4 mg PO Q4HR PRN #20 tab.rapdis 03/17/18 11/07/18 Unknown Rx Active Medications: Generic Name Dose Route Start Last Admin Trade Name Freq PRN Reason Stop Dose Admin Acetaminophen 650 mg 11/06/18 22:22 11/18/18 11:54 Tylenol FEEDTUBE 650 mg Q6H PRN Administration Fever >101 Lipase/Protease/Amylase 1 each 11/08/18 18:38 Pancreclara [place] 10,500 Unit FEEDTUBE PRN PRN For Clogged Feeding Tube Apixaban 2.5 mg 11/20/18 22:00 Eliquis FEEDTUBE BID MARIAJOSE Chlorpromazine HCl 10 mg 11/07/18 08:07 11/18/18 07:58 Thorazine PO 10 mg Q6H PRN Administration Hiccups Clonazepam 0.5 mg 11/12/18 16:49 11/13/18 23:10 Klonopin PO 0.5 mg Q12H PRN Administration myoclonic jerks Dextrose 50 ml 11/07/18 16:46 11/10/18 23:43 D50w (25gm) Syringe IV 50 ml PRN PRN Administration Hypoglycemia Epoetin Eonc 20,000 unit 11/18/18 13:46 11/19/18 10:11 Procrit IV 20,000 unit MARY PRN Administration hemodialysis Fentanyl 50 mcg 11/06/18 08:37 Sublimaze IV Q10MIN PRN ANALGESIA Hydralazine HCl 10 mg 11/08/18 00:56 11/14/18 08:34 Apresoline IV 10 mg Q4H PRN Administration Hypertension Hydralazine HCl 50 mg 11/14/18 09:16 11/19/18 21:23 Apresoline PO 50 mg Q8HR MARIAJOSE Administration Hydrophilic Ointment 1 applic 11/06/18 08:26 11/10/18 19:52 Vaseline Lip Therapy TP 1 applic Q2HR PRN Administration Dry Lips Fentanyl Citrate 2,000 mcg in 100 mls @ 4.309 mls/hr 11/06/18 10:00 11/19/18 21:18 Fentanyl Drip Premix IV 1 mcg/kg/hr TITR MARIAJOSE 4.309 mls/hr Administration Protocol 1 MCG/KG/HR Sodium Chloride 100 mls @ 999 mls/hr 11/14/18 11:33 Nacl 0.9% IV MARY PRN Hypotension Cefepime HCl 1 gm in 100 mls @ 200 mls/hr 11/19/18 18:00 11/19/18 18:01 Maxipime/Ns 1 Gm/100 Ml IV 200 mls/hr QPM MARIAJOSE Administration Protocol Insulin Human Isoph/Insulin Regular 36 unit 11/16/18 22:00 11/19/18 22:00 Humulin 70/30 SUB-Q 36 unit BID MARIAJOSE Administration Insulin Human Regular 0 units 11/07/18 18:00 11/20/18 06:16 Humulin R SUB-Q 6 units Q6HR MARIAJOSE Administration Protocol Labetalol HCl 10 mg 11/19/18 16:09 11/19/18 17:32 Normodyne IV 10 mg Q4H PRN Administration Hypertension Lansoprazole 30 mg 11/09/18 10:00 11/19/18 21:23 Prevacid Solutab FEEDTUBE 30 mg BID MARIAJOSE Administration Levetiracetam 750 mg 11/18/18 10:00 11/19/18 21:23 Keppra PO 750 mg BID MARIAJOSE Administration Lorazepam 2 mg 11/12/18 08:31 11/15/18 14:25 Ativan IV 2 mg Q4H PRN Administration Agitation Metoprolol Tartrate 50 mg 11/14/18 10:00 11/20/18 04:05 Lopressor PO 50 mg Q6H MARIAJOSE Administration Modafinil 200 mg 11/17/18 10:00 11/19/18 09:14 Provigil PO 200 mg QAM MARIAJOSE Administration Multi-Ingred Cream/Lotion/Oil/Oint 1 applic 11/06/18 08:26 Artificial Tears Ophth Oint OU Q4HR PRN Dry Eye(s) Simple Syrup 15 ml 11/08/18 18:38 Simple Syrup FEEDTUBE PRN PRN Hypoglycemia Simple Syrup 30 ml 11/08/18 18:38 Simple Syrup FEEDTUBE PRN PRN Hypoglycemia Sodium Bicarbonate 325 mg 11/08/18 18:38 Sodium Bicarbonate FEEDTUBE PRN PRN For Clogged Feeding Tube Sodium Chloride 10 ml 11/06/18 22:00 11/19/18 21:25 Sodium Chloride Flush Syringe 10 Ml IV 10 ml BID MARIAJOSE Administration Sodium Chloride 10 ml 11/06/18 12:42 11/13/18 10:30 Sodium Chloride Flush Syringe 10 Ml IV 10 ml PRN PRN Administration LINE FLUSH Tamsulosin HCl 0.4 mg 11/10/18 13:00 11/19/18 09:13 Flomax PO 0.4 mg QDAY MARIAJOSE Administration
[2018-11-20] MEDS: PROVIGIL PO SCH (09:13)
[2018-11-20] MEDS: KEPPRA PO SCH ×2 (09:13→22:21)
[2018-11-20] MEDS: PREVACID SOLUTAB FEEDTUBE SCH ×2 (09:13→22:21)
[2018-11-20] MEDS: FLOMAX PO SCH (09:13)
[2018-11-20] MEDS: SODIUM CHLORIDE FLUSH SYRINGE 10 ML IV SCH (09:14)
[2018-11-20] MEDS: NORMODYNE IV PRN ×2 (09:14→15:24)
--- NOTE | 2018-11-20 10:29 | Progress Note ---
Assessment and Plan Cultures: 11/06/2018 blood culture: No growth 11/06/2018 urine culture: No growth 11/06/2018 sputum culture: Usual respiratory diana 11/18/2018 blood culture: In process 11/18/2018 urine culture: Pseudomonas sensitive to cefepime Assessment: 42-year-old male with ESRD on hemodialysis, hypertension, diabetes mellitus, peripheral vascular disease, tobacco abuse was brought into the emergency room on 11/06/2018 after he was noted to be unresponsive and was found down by the family. EMS intubated the patient and brought him to the ED. Patient had a cardiac arrest in the emergency room requiring ACLS. Subsequently, he had ROSC. Prolonged hospital stay, concerning for anoxic brain injury, now s/p trach and PEG. 1) Sepsis: new, possibly related to UTI. UA showed pyuria with urine culture growing Pseudomonas. Chest x-ray today does not suggest any pneumonia. Blood cultures so far have been negative. On Cefepime. 2) Anoxic encephalopathy, status post cardiopulmonary arrest 3) ESRD: On dialysis. Renally dose abx. 4) DM, uncontrolled, admitted with DKA 5) Shock liver on admission, now resolved 6) Reactive thrombocytosis Recs: continue Cefepime 1 gm q24 hrs renally adjusted D2 check renal US I will be rounding this weekend Joyce Blackwell MD Infectious Diseases Director Special Education [facility] M [phone] O [phone] Subjective Date of service: 11/20/18 Principal diagnosis: Ac hypoxemic resp failure; DKA; Severe sepsis with shock; ESRD on dialysis Interval history: Remains non verbal no fever x 24h. ROS unable to obtain Objective - Exam Narrative Exam: General: unresponsive non verbal on CPAP Head, Ears, Nose: Normocephalic, atraumatic. External ears, nose normal Eyes: Conjunctivae/corneas clear. No icterus. No ptosis. Neck: trach + Oral: unable to examine Cardiovascular: S1, S2 normal. Respiratory: b/l rhonchi + GI: Soft; bowel sounds normal. No peritoneal signs. PEG + Musculoskeletal: No pedal edema, no cyanosis. LUE AVF + with thrill. Right arm midline + Skin: No rash or abscess Hem/Lymphatic: No palpable cervical or supraclavicular nodes. No lymphangitis Psych: no agitation Neurological: unresponsive - Constitutional Vitals: Vital Signs Temp Pulse Resp BP Pulse Ox 98.5 F 112 H 20 180/105 100 11/20/18 08:00 11/20/18 09:14 11/20/18 08:00 11/20/18 09:14 11/20/18 09:33 Temperature -Last 24 Hours Temperature 98.5 F Temperature 98.2 F Temperature 98.8 F Temperature 99.0 F Temperature 100.4 F Temperature 99 F Temperature 97.2 F Temperature 97.2 F - Labs CBC & Chem 7: 11/20/18 10:25 11/19/18 04:24 Labs: Abnormal lab results 11/19/18 11/19/18 11/19/18 Range/Units 12:01 12:41 17:32 WBC 13.7 H (4.5-11.0) K/mm3 RBC 2.73 L (3.65-5.03) M/mm3 Hgb 8.3 L (11.8-15.2) gm/dl Hct 24.9 L (35.5-45.6) % Plt Count 479 H (140-440) K/mm3 POC Glucose 179 H 317 H (70-105) 11/19/18 11/19/18 11/20/18 Range/Units 21:53 23:16 06:03 WBC (4.5-11.0) K/mm3 RBC (3.65-5.03) M/mm3 Hgb (11.8-15.2) gm/dl Hct (35.5-45.6) % Plt Count (140-440) K/mm3 POC Glucose 421 H 396 H 294 H (70-105)
[2018-11-20 10:41] LABS: Hematocrit 23.1 % (35.5-45.6); Hemoglobin 7.8 gm/dl (11.8-15.2); Mean Corpuscular HGB Conc 34 % (32-34); Mean Corpuscular Volume 90 fl (84-94); Platelet Count 444 K/mm3 (140-440); Red Blood Count 2.58 M/mm3 (3.65-5.03); Red Cell Distribution Width 14.4 % (13.2-15.2)
[2018-11-20 11:04] LABS: Calcium 9.1 mg/dL (8.4-10.2)
--- NOTE | 2018-11-20 11:20 | Progress Note ---
Assessment and Plan Acute hypoxemic respiratory failure, on mechanical ventilator support. Diabetic ketoacidosis. Severe metabolic acidosis. Severe sepsis with shock. Acute encephalopathy that appears to be toxic metabolic. End-stage renal disease, on dialysis. Hyperkalemia at presentation. Diabetes. Peripheral vascular disease. Anemia that is macrocytic. Elevated serum transaminases, likely representing shock liver. Mild hyponatremia, pseudohyponatremia actually. Lactic acidosis. (AMS remains a rate limiting factor to safe extubation and he will likely need a tracheostomy) - place on 2 hour SBT as tolerated now - continue daily SAT's and SBT assessment as tolerated - prn sedation target for RASS 0 to -1 - continue to wean supplemental oxygen to keep O2 sats > 90% - EEG Impression noted re: [Anoxic brain injury with interval improvement of clinical status. I have reviewed the EEG which does not show any epileptiform activity or seizure activity. The background rhythm is a little slow other than that EEG is normal] - will follow clinically for a few more days before deciding on tracheostomy vs trial of extubation - continue Provigil - continue baclofen for myoclonic activity / hiccups - follow clinically off AB's for now ) - continue bronchodilators with pulmonary hygiene per RT - Lung protective strategies - VAP bundle addressed - continue HD/UF as tolerated for toxin and volume clearance - neurology evaluation ongoing - Monitor renal indices closely - continue to avoid nephrotoxic agents, adjust all medications for CrCL - Strict intake and output monitoring - continue enteral nutrition as tolerated - continue accuchecks with glycemic control per SSI for target glucose of 140- 180 mg/dL - Maintenance of sleep -wake cycle - Mobility protocol for pressure ulcer prophylaxis - continue GI & VTE prophylaxis - Influenza and pneumonia vaccination per protocol - discharge planning ongoing concurrently .... re-evaluate in am & prn PROGNOSIS: GUARDED CONDITION: CRITICAL CODE STATUS: FULL CODE The high probability of a clinically significant, sudden or life-threatening deterioration of the [respiratory, neurology, renal] system(s) required my full and direct attention, intervention and personal management. The aggregate critical care time was [35] minutes without overlap. Time includes spent on; [x] Data Review and interpretation [x] Patient assessment and monitoring of vital signs [x] Documentation [x] Medication orders and management Subjective Date of service: 11/20/18 Principal diagnosis: Ac hypoxemic resp failure; DKA; Severe sepsis with shock; ESRD on dialysis Interval history: Patient is seen today for: Acute hypoxemic respiratory failure on MVS; DKA; Severe metabolic acidosis; Severe sepsis with shock; Acute encephalopathy that appears to be toxic metabolic; ESRD on dialysis; DM II; Peripheral vascular disease. Seen and examined at bedside; 24hour events reviewed; nursing and respiratory care staff consulted; no adverse overnight events reported to me; remains on MVS; s/p trach and PEG; AMS is persistent; no emesis or overt aspiration; somewhat more alert with more spontaneous eye opening Objective Vital Signs - 12hr 11/19/18 11/20/18 11/20/18 23:30 00:00 00:30 Temperature 99.0 F Pulse Rate 99 H 99 H 101 H Pulse Rate [ 99 H From Monitor] Respiratory 20 20 20 Rate Blood Pressure 147/81 160/88 160/87 O2 Sat by Pulse 100 100 100 Oximetry O2 Sat by Pulse Oximetry [ Assessment] 11/20/18 11/20/18 11/20/18 01:00 01:30 02:00 Temperature Pulse Rate 102 H 103 H 101 H Pulse Rate [ 101 H From Monitor] Respiratory 20 20 20 Rate Blood Pressure 171/89 158/84 151/82 O2 Sat by Pulse 100 100 100 Oximetry O2 Sat by Pulse Oximetry [ Assessment] 11/20/18 11/20/18 11/20/18 02:30 03:00 03:28 Temperature Pulse Rate 106 H 107 H 103 H Pulse Rate [ From Monitor] Respiratory 20 22 Rate Blood Pressure 165/92 167/96 167/96 O2 Sat by Pulse 100 100 100 Oximetry O2 Sat by Pulse Oximetry [ Assessment] 11/20/18 11/20/18 11/20/18 03:30 04:00 04:05 Temperature 98.8 F Pulse Rate 107 H 107 H 105 H Pulse Rate [ 126 H From Monitor] Respiratory 20 20 Rate Blood Pressure 177/101 166/81 166/81 O2 Sat by Pulse 100 100 Oximetry O2 Sat by Pulse Oximetry [ Assessment] 11/20/18 11/20/18 11/20/18 04:30 05:00 05:30 Temperature Pulse Rate 100 H 95 H 100 H Pulse Rate [ From Monitor] Respiratory 20 21 20 Rate Blood Pressure 167/94 160/94 174/96 O2 Sat by Pulse 100 100 100 Oximetry O2 Sat by Pulse Oximetry [ Assessment] 11/20/18 11/20/18 11/20/18 06:00 06:14 06:30 Temperature 98.2 F Pulse Rate 101 H 100 H Pulse Rate [ From Monitor] Respiratory 20 20 Rate Blood Pressure 176/103 154/79 O2 Sat by Pulse 100 100 Oximetry O2 Sat by Pulse Oximetry [ Assessment] 11/20/18 11/20/18 11/20/18 07:00 07:30 07:54 Temperature Pulse Rate 100 H 99 H 99 H Pulse Rate [ From Monitor] Respiratory 20 20 Rate Blood Pressure 140/74 149/82 149/82 O2 Sat by Pulse 100 100 100 Oximetry O2 Sat by Pulse Oximetry [ Assessment] 11/20/18 11/20/18 11/20/18 08:00 08:19 08:29 Temperature 98.5 F Pulse Rate 100 H 110 H Pulse Rate [ 100 H From Monitor] Respiratory 20 Rate Blood Pressure 155/89 O2 Sat by Pulse 100 Oximetry O2 Sat by Pulse 100 Oximetry [ Assessment] 11/20/18 11/20/18 11/20/18 08:31 09:00 09:14 Temperature Pulse Rate 108 H 109 H 112 H Pulse Rate [ From Monitor] Respiratory 12 11 L Rate Blood Pressure 182/99 180/105 180/105 O2 Sat by Pulse 100 100 Oximetry O2 Sat by Pulse Oximetry [ Assessment] 11/20/18 11/20/18 11/20/18 09:30 09:33 10:00 Temperature Pulse Rate 102 H 97 H Pulse Rate [ From Monitor] Respiratory 10 L 10 L Rate Blood Pressure 157/81 165/91 O2 Sat by Pulse 100 100 100 Oximetry O2 Sat by Pulse Oximetry [ Assessment] 11/20/18 11/20/18 10:30 11:00 Temperature Pulse Rate 96 H 98 H Pulse Rate [ From Monitor] Respiratory 18 18 Rate Blood Pressure 167/94 150/88 O2 Sat by Pulse 100 100 Oximetry O2 Sat by Pulse Oximetry [ Assessment] Constitutional: appears uncomfortable, other (middle aged AAM, normocephalic and atraumatic on MVS) Eyes: non-icteric ENT: oropharynx moist, other (s/p tracheostomy) Neck: supple, no lymphadenopathy, no JVD Effort: normal Ascultation: Bilateral: diminished breath sounds, rhonchi Percussion: Bilateral: not dull Cardiovascular: regular rate and rhythm Gastrointestinal: normoactive bowel sounds, soft, non-tender, non-distended Integumentary: rash Extremities: no cyanosis, pulses normal, no ischemia or petechiae, edema Neurologic: pupils equal and round (minimally reactive), unable to assess, other (intermittent myoclonic type jerks) Psychiatric: other (unable to assess re: AMS) CBC and BMP: 11/23/18 04:39 11/23/18 04:39 ABG, PT/INR, D-dimer: ABG POC ABG pH 7.423 (7.35-7.45) 11/20/18 09:40 POC ABG pCO2 44.8 (35-45) 11/20/18 09:40 POC ABG pO2 100 (80-105) 11/20/18 09:40 POC ABG HCO3 29.3 (22-26 mml/L) 11/20/18 09:40 POC ABG Total CO2 31 (23-27mmol/L) 11/20/18 09:40 POC ABG O2 Sat 98 11/20/18 09:40 Abnormal lab findings: Abnormal Labs 11/06/18 11/06/18 11/06/18 08:22 09:02 09:02 WBC 20.1 H RBC 3.40 L Hgb 10.5 L Hct MCV 119 H MCHC 26 L RDW 15.7 H Plt Count Lymph % (Auto) [place] % (Auto) Lymph # [place] # Seg Neutrophils % 80.1 H Seg Neuts % (Manual) 76.0 H Lymphocytes % (Manual) 4.0 L Monocytes % (Manual) Nucleated RBC % 1.0 H Seg Neutrophils # 16.1 H Seg Neutrophils # Man 15.3 H Lymphocytes # (Manual) 0.8 L Monocytes # (Manual) POC ABG pH POC ABG pCO2 POC ABG pO2 VBG pH Sodium 129 L Potassium 7.7 H* Chloride 79.7 L Carbon Dioxide 4 L* BUN 93 H Creatinine 7.4 H Glucose 1469 H* POC Glucose > 500 H Hemoglobin A1c Lactic Acid Calcium Phosphorus Magnesium Direct Bilirubin AST 2679 H ALT 1175 H C-Reactive Protein Total Protein 6.1 L Albumin 2.9 L Urine WBC (Auto) Salicylates Acetaminophen Heparin-induced Plt Ab 11/06/18 11/06/18 11/06/18 09:02 09:02 09:02 WBC RBC Hgb Hct MCV MCHC RDW Plt Count Lymph % (Auto) [place] % (Auto) Lymph # [place] # Seg Neutrophils % Seg Neuts % (Manual) Lymphocytes % (Manual) Monocytes % (Manual) Nucleated RBC % Seg Neutrophils # Seg Neutrophils # Man Lymphocytes # (Manual) Monocytes # (Manual) POC ABG pH POC ABG pCO2 POC ABG pO2 VBG pH Sodium Potassium Chloride Carbon Dioxide BUN Creatinine Glucose POC Glucose Hemoglobin A1c Lactic Acid 9.40 H* Calcium Phosphorus Magnesium Direct Bilirubin AST ALT C-Reactive Protein Total Protein Albumin Urine WBC (Auto) Salicylates < 0.3 L Acetaminophen < 5.0 L Heparin-induced Plt Ab 11/06/18 11/06/18 11/06/18 09:03 10:19 10:19 WBC RBC Hgb Hct MCV MCHC RDW Plt Count Lymph % (Auto) [place] % (Auto) Lymph # [place] # Seg Neutrophils % Seg Neuts % (Manual) Lymphocytes % (Manual) Monocytes % (Manual) Nucleated RBC % Seg Neutrophils # Seg Neutrophils # Man Lymphocytes # (Manual) Monocytes # (Manual) POC ABG pH 6.841 L POC ABG pCO2 POC ABG pO2 VBG pH Sodium 131 L Potassium 8.9 H* Chloride 85.3 L Carbon Dioxide 6 L* BUN 90 H Creatinine 7.1 H Glucose 1353 H* POC Glucose Hemoglobin A1c Lactic Acid Calcium 7.8 L Phosphorus 14.50 H Magnesium 2.70 H Direct Bilirubin AST ALT C-Reactive Protein Total Protein Albumin Urine WBC (Auto) Salicylates Acetaminophen Heparin-induced Plt Ab 11/06/18 11/06/18 11/06/18 12:07 13:22 13:22 WBC RBC Hgb Hct MCV MCHC RDW Plt Count Lymph % (Auto) [place] % (Auto) Lymph # [place] # Seg Neutrophils % Seg Neuts % (Manual) Lymphocytes % (Manual) Monocytes % (Manual) Nucleated RBC % Seg Neutrophils # Seg Neutrophils # Man Lymphocytes # (Manual) Monocytes # (Manual) POC ABG pH POC ABG pCO2 POC ABG pO2 VBG pH 6.982 L* Sodium 135 L Potassium 7.0 H* D Chloride 88.4 L Carbon Dioxide 5 L* BUN 89 H Creatinine 7.2 H Glucose 1326 H* POC Glucose Hemoglobin A1c Lactic Acid 8.50 H* Calcium Phosphorus Magnesium Direct Bilirubin AST ALT C-Reactive Protein Total Protein Albumin Urine WBC (Auto) Salicylates Acetaminophen Heparin-induced Plt Ab 11/06/18 11/06/1811/06/19 14:15 14:15 15:21 WBC RBC Hgb Hct MCV MCHC RDW Plt Count Lymph % (Auto) [place] % (Auto) Lymph # [place] # Seg Neutrophils % Seg Neuts % (Manual) Lymphocytes % (Manual) Monocytes % (Manual) Nucleated RBC % Seg Neutrophils # Seg Neutrophils # Man Lymphocytes # (Manual) Monocytes # (Manual) POC ABG pH POC ABG pCO2 POC ABG pO2 VBG pH Sodium Potassium 6.6 H* 6.0 H Chloride 95.3 L 93.3 L Carbon Dioxide 4 L* 6 L* BUN 83 H 91 H Creatinine 6.9 H 7.3 H Glucose 1205 H* 1174 H* POC Glucose Hemoglobin A1c Lactic Acid Calcium 8.2 L Phosphorus 13.00 H Magnesium 2.60 H Direct Bilirubin AST ALT C-Reactive Protein Total Protein Albumin Urine WBC (Auto) Salicylates Acetaminophen Heparin-induced Plt Ab 11/06/18 11/06/18 11/06/18 15:21 16:14 16:33 WBC RBC Hgb Hct MCV MCHC RDW Plt Count Lymph % (Auto) [place] % (Auto) Lymph # [place] # Seg Neutrophils % Seg Neuts % (Manual) Lymphocytes % (Manual) Monocytes % (Manual) Nucleated RBC % Seg Neutrophils # Seg Neutrophils # Man Lymphocytes # (Manual) Monocytes # (Manual) POC ABG pH 7.004 L POC ABG pCO2 33.0 L POC ABG pO2 178 H VBG pH Sodium Potassium Chloride Carbon Dioxide BUN Creatinine Glucose POC Glucose > 500 H Hemoglobin A1c Lactic Acid 7.60 H* Calcium Phosphorus Magnesium Direct Bilirubin AST ALT C-Reactive Protein Total Protein Albumin Urine WBC (Auto) Salicylates Acetaminophen Heparin-induced Plt Ab 11/06/18 11/06/18 11/06/18 17:34 19:30 19:30 WBC RBC Hgb Hct MCV MCHC RDW Plt Count Lymph % (Auto) [place] % (Auto) Lymph # [place] # Seg Neutrophils % Seg Neuts % (Manual) Lymphocytes % (Manual) Monocytes % (Manual) Nucleated RBC % Seg Neutrophils # Seg Neutrophils # Man Lymphocytes # (Manual) Monocytes # (Manual) POC ABG pH POC ABG pCO2 POC ABG pO2 VBG pH Sodium Potassium 5.5 H Chloride 97.4 L 97.7 L Carbon Dioxide 10 L 11 L BUN 88 H 87 H Creatinine 7.5 H 7.6 H Glucose 1054 H* 954 H* POC Glucose Hemoglobin A1c Lactic Acid Calcium 7.7 L 7.4 L Phosphorus Magnesium Direct Bilirubin AST ALT C-Reactive Protein 1.90 H Total Protein Albumin Urine WBC (Auto) Salicylates Acetaminophen Heparin-induced Plt Ab 11/06/18 11/06/18 11/06/18 20:31 20:40 20:40 WBC RBC Hgb Hct MCV MCHC RDW Plt Count Lymph % (Auto) [place] % (Auto) Lymph # [place] # Seg Neutrophils % Seg Neuts % (Manual) Lymphocytes % (Manual) Monocytes % (Manual) Nucleated RBC % Seg Neutrophils # Seg Neutrophils # Man Lymphocytes # (Manual) Monocytes # (Manual) POC ABG pH 7.245 L POC ABG pCO2 POC ABG pO2 132 H VBG pH Sodium Potassium Chloride Carbon Dioxide BUN Creatinine Glucose 907 H* POC Glucose Hemoglobin A1c Lactic Acid 4.40 H* Calcium Phosphorus Magnesium Direct Bilirubin AST ALT C-Reactive Protein Total Protein Albumin Urine WBC (Auto) Salicylates Acetaminophen Heparin-induced Plt Ab 11/06/18 11/06/18 11/06/18 22:05 22:40 23:35 WBC RBC Hgb Hct MCV MCHC RDW Plt Count Lymph % (Auto) [place] % (Auto) Lymph # [place] # Seg Neutrophils % Seg Neuts % (Manual) Lymphocytes % (Manual) Monocytes % (Manual) Nucleated RBC % Seg Neutrophils # Seg Neutrophils # Man Lymphocytes # (Manual) Monocytes # (Manual) POC ABG pH POC ABG pCO2 POC ABG pO2 VBG pH Sodium Potassium Chloride Carbon Dioxide 13 L BUN 86 H Creatinine 7.8 H Glucose 822 H* 726 H* POC Glucose Hemoglobin A1c Lactic Acid 3.40 H* Calcium 7.5 L Phosphorus Magnesium Direct Bilirubin AST ALT C-Reactive Protein Total Protein Albumin Urine WBC (Auto) Salicylates Acetaminophen Heparin-induced Plt Ab 11/07/18 11/07/18 11/07/18 01:25 01:26 03:15 WBC RBC Hgb Hct MCV MCHC RDW Plt Count Lymph % (Auto) [place] % (Auto) Lymph # [place] # Seg Neutrophils % Seg Neuts % (Manual) Lymphocytes % (Manual) Monocytes % (Manual) Nucleated RBC % Seg Neutrophils # Seg Neutrophils # Man Lymphocytes # (Manual) Monocytes # (Manual) POC ABG pH POC ABG pCO2 POC ABG pO2 VBG pH Sodium Potassium Chloride Carbon Dioxide BUN Creatinine Glucose 602 H* POC Glucose > 500 H > 500 H Hemoglobin A1c Lactic Acid Calcium Phosphorus Magnesium Direct Bilirubin AST ALT C-Reactive Protein Total Protein Albumin Urine WBC (Auto) Salicylates Acetaminophen Heparin-induced Plt Ab 11/07/18 11/07/18 11/07/18 03:20 04:32 04:47 WBC RBC Hgb Hct MCV MCHC RDW Plt Count Lymph % (Auto) [place] % (Auto) Lymph # [place] # Seg Neutrophils % Seg Neuts % (Manual) Lymphocytes % (Manual) Monocytes % (Manual) Nucleated RBC % Seg Neutrophils # Seg Neutrophils # Man Lymphocytes # (Manual) Monocytes # (Manual) POC ABG pH POC ABG pCO2 30.3 L POC ABG pO2 153 H VBG pH Sodium 149 H Potassium Chloride Carbon Dioxide 16 L BUN 86 H Creatinine 8.3 H Glucose 499.2 H POC Glucose 360 H Hemoglobin A1c Lactic Acid Calcium 7.6 L Phosphorus Magnesium Direct Bilirubin AST ALT C-Reactive Protein Total Protein Albumin Urine WBC (Auto) Salicylates Acetaminophen Heparin-induced Plt Ab 11/07/18 11/07/18 11/07/18 05:26 06:35 06:36 WBC RBC Hgb Hct MCV MCHC RDW Plt Count Lymph % (Auto) [place] % (Auto) Lymph # [place] # Seg Neutrophils % Seg Neuts % (Manual) Lymphocytes % (Manual) Monocytes % (Manual) Nucleated RBC % Seg Neutrophils # Seg Neutrophils # Man Lymphocytes # (Manual) Monocytes # (Manual) POC ABG pH POC ABG pCO2 POC ABG pO2 VBG pH Sodium 153 H Potassium 3.2 L Chloride 109.7 H Carbon Dioxide BUN 84 H Creatinine 8.6 H Glucose 249 H POC Glucose 341 H 274 H Hemoglobin A1c Lactic Acid Calcium 7.6 L Phosphorus Magnesium Direct Bilirubin AST ALT C-Reactive Protein Total Protein Albumin Urine WBC (Auto) Salicylates Acetaminophen Heparin-induced Plt Ab 11/07/18 11/07/18 11/07/18 07:33 09:00 09:52 WBC RBC Hgb Hct MCV MCHC RDW Plt Count Lymph % (Auto) [place] % (Auto) Lymph # [place] # Seg Neutrophils % Seg Neuts % (Manual) Lymphocytes % (Manual) Monocytes % (Manual) Nucleated RBC % Seg Neutrophils # Seg Neutrophils # Man Lymphocytes # (Manual) Monocytes # (Manual) POC ABG pH POC ABG pCO2 POC ABG pO2 VBG pH Sodium Potassium Chloride Carbon Dioxide BUN Creatinine Glucose POC Glucose 243 H 182 H 227 H Hemoglobin A1c Lactic Acid Calcium Phosphorus Magnesium Direct Bilirubin AST ALT C-Reactive Protein Total Protein Albumin Urine WBC (Auto) Salicylates Acetaminophen Heparin-induced Plt Ab 11/07/18 11/07/18 11/07/18 10:50 10:50 10:50 WBC 11.3 H RBC 2.85 L Hgb 8.7 L Hct 25.3 L D MCV MCHC RDW Plt Count Lymph % (Auto) 9.7 L [place] % (Auto) Lymph # 1.1 L [place] # Seg Neutrophils % 83.3 H Seg Neuts % (Manual) Lymphocytes % (Manual) Monocytes % (Manual) Nucleated RBC % Seg Neutrophils # 9.4 H Seg Neutrophils # Man Lymphocytes # (Manual) Monocytes # (Manual) POC ABG pH POC ABG pCO2 POC ABG pO2 VBG pH Sodium 154 H Potassium 3.2 L Chloride 110.2 H Carbon Dioxide BUN 82 H Creatinine 8.3 H Glucose 186 H POC Glucose 200 H Hemoglobin A1c Lactic Acid Calcium 7.3 L Phosphorus Magnesium Direct Bilirubin AST ALT C-Reactive Protein Total Protein Albumin Urine WBC (Auto) Salicylates Acetaminophen Heparin-induced Plt Ab 11/07/18 11/07/18 11/07/18 12:00 12:05 13:13 WBC RBC Hgb Hct MCV MCHC RDW Plt Count Lymph % (Auto) [place] % (Auto) Lymph # [place] # Seg Neutrophils % Seg Neuts % (Manual) Lymphocytes % (Manual) Monocytes % (Manual) Nucleated RBC % Seg Neutrophils # Seg Neutrophils # Man Lymphocytes # (Manual) Monocytes # (Manual) POC ABG pH POC ABG pCO2 POC ABG pO2 VBG pH Sodium Potassium Chloride Carbon Dioxide BUN Creatinine Glucose POC Glucose 179 H 190 H Hemoglobin A1c Lactic Acid 2.50 H* Calcium Phosphorus Magnesium Direct Bilirubin AST ALT C-Reactive Protein Total Protein Albumin Urine WBC (Auto) Salicylates Acetaminophen Heparin-induced Plt Ab 11/07/18 11/07/18 11/07/18 13:20 14:05 15:18 WBC RBC Hgb Hct MCV MCHC RDW Plt Count Lymph % (Auto) [place] % (Auto) Lymph # [place] # Seg Neutrophils % Seg Neuts % (Manual) Lymphocytes % (Manual) Monocytes % (Manual) Nucleated RBC % Seg Neutrophils # Seg Neutrophils # Man Lymphocytes # (Manual) Monocytes # (Manual) POC ABG pH POC ABG pCO2 POC ABG pO2 VBG pH Sodium Potassium 3.1 L Chloride Carbon Dioxide BUN 50 H Creatinine 5.0 H Glucose 176 H POC Glucose 189 H 215 H Hemoglobin A1c Lactic Acid Calcium 7.4 L Phosphorus Magnesium Direct Bilirubin AST ALT C-Reactive Protein Total Protein Albumin Urine WBC (Auto) Salicylates Acetaminophen Heparin-induced Plt Ab 11/07/18 11/07/18 11/07/18 16:25 17:37 23:23 WBC RBC Hgb Hct MCV MCHC RDW Plt Count Lymph % (Auto) [place] % (Auto) Lymph # [place] # Seg Neutrophils % Seg Neuts % (Manual) Lymphocytes % (Manual) Monocytes % (Manual) Nucleated RBC % Seg Neutrophils # Seg Neutrophils # Man Lymphocytes # (Manual) Monocytes # (Manual) POC ABG pH POC ABG pCO2 POC ABG pO2 VBG pH Sodium Potassium Chloride Carbon Dioxide BUN Creatinine Glucose POC Glucose 180 H 215 H 234 H Hemoglobin A1c Lactic Acid Calcium Phosphorus Magnesium Direct Bilirubin AST ALT C-Reactive Protein Total Protein Albumin Urine WBC (Auto) Salicylates Acetaminophen Heparin-induced Plt Ab 11/08/18 11/08/18 11/08/18 04:17 04:23 04:23 WBC RBC 2.98 L Hgb 9.3 L Hct 26.7 L MCV MCHC 35 H RDW Plt Count 130 L Lymph % (Auto) [place] % (Auto) Lymph # [place] # Seg Neutrophils % 80.3 H Seg Neuts % (Manual) Lymphocytes % (Manual) Monocytes % (Manual) Nucleated RBC % Seg Neutrophils # 7.8 H Seg Neutrophils # Man Lymphocytes # (Manual) Monocytes # (Manual) POC ABG pH 7.520 H POC ABG pCO2 POC ABG pO2 111 H VBG pH Sodium Potassium 3.0 L Chloride Carbon Dioxide BUN 44 H Creatinine 6.3 H Glucose 245 H POC Glucose Hemoglobin A1c Lactic Acid Calcium 7.3 L Phosphorus Magnesium Direct Bilirubin AST ALT C-Reactive Protein Total Protein Albumin Urine WBC (Auto) Salicylates Acetaminophen Heparin-induced Plt Ab 11/08/18 11/08/18 11/08/18 05:19 08:00 08:00 WBC RBC Hgb Hct MCV MCHC RDW Plt Count Lymph % (Auto) [place] % (Auto) Lymph # [place] # Seg Neutrophils % Seg Neuts % (Manual) Lymphocytes % (Manual) Monocytes % (Manual) Nucleated RBC % Seg Neutrophils # Seg Neutrophils # Man Lymphocytes # (Manual) Monocytes # (Manual) POC ABG pH POC ABG pCO2 POC ABG pO2 VBG pH Sodium Potassium Chloride Carbon Dioxide BUN Creatinine Glucose POC Glucose 253 H Hemoglobin A1c Lactic Acid 2.70 H* Calcium Phosphorus Magnesium Direct Bilirubin 0.3 H AST 932 H ALT 582 H C-Reactive Protein Total Protein 5.4 L Albumin 2.6 L Urine WBC (Auto) Salicylates Acetaminophen Heparin-induced Plt Ab 11/08/18 11/08/18 11/08/18 11:36 17:51 21:59 WBC RBC Hgb Hct MCV MCHC RDW Plt Count Lymph % (Auto) [place] % (Auto) Lymph # [place] # Seg Neutrophils % Seg Neuts % (Manual) Lymphocytes % (Manual) Monocytes % (Manual) Nucleated RBC % Seg Neutrophils # Seg Neutrophils # Man Lymphocytes # (Manual) Monocytes # (Manual) POC ABG pH 7.459 H POC ABG pCO2 POC ABG pO2 108 H VBG pH Sodium Potassium Chloride Carbon Dioxide BUN Creatinine Glucose POC Glucose 197 H Hemoglobin A1c Lactic Acid Calcium Phosphorus Magnesium Direct Bilirubin AST ALT C-Reactive Protein Total Protein Albumin Urine WBC (Auto) Salicylates Acetaminophen Heparin-induced Plt Ab Positive H 11/08/18 11/09/18 11/09/18 23:28 00:39 02:20 WBC RBC Hgb Hct MCV MCHC RDW Plt Count Lymph % (Auto) [place] % (Auto) Lymph # [place] # Seg Neutrophils % Seg Neuts % (Manual) Lymphocytes % (Manual) Monocytes % (Manual) Nucleated RBC % Seg Neutrophils # Seg Neutrophils # Man Lymphocytes # (Manual) Monocytes # (Manual) POC ABG pH POC ABG pCO2 POC ABG pO2 VBG pH Sodium Potassium Chloride Carbon Dioxide BUN Creatinine Glucose POC Glucose 418 H 471 H 254 H Hemoglobin A1c Lactic Acid Calcium Phosphorus Magnesium Direct Bilirubin AST ALT C-Reactive Protein Total Protein Albumin Urine WBC (Auto) Salicylates Acetaminophen Heparin-induced Plt Ab 11/09/18 11/09/18 11/09/18 03:48 06:02 06:02 WBC RBC 2.95 L Hgb 9.2 L Hct 26.7 L MCV MCHC RDW Plt Count 101 L Lymph % (Auto) [place] % (Auto) Lymph # [place] # Seg Neutrophils % Seg Neuts % (Manual) Lymphocytes % (Manual) Monocytes % (Manual) Nucleated RBC % Seg Neutrophils # Seg Neutrophils # Man Lymphocytes # (Manual) Monocytes # (Manual) POC ABG pH POC ABG pCO2 POC ABG pO2 108 H VBG pH Sodium 150 H Potassium Chloride 108.3 H Carbon Dioxide BUN 44 H Creatinine 7.7 H Glucose 102 H POC Glucose Hemoglobin A1c Lactic Acid Calcium 7.2 L Phosphorus Magnesium Direct Bilirubin AST 554 H ALT 461 H C-Reactive Protein Total Protein 5.1 L Albumin 2.6 L Urine WBC (Auto) Salicylates Acetaminophen Heparin-induced Plt Ab 11/09/18 11/09/18 11/09/18 17:49 18:49 23:32 WBC RBC Hgb Hct MCV MCHC RDW Plt Count Lymph % (Auto) [place] % (Auto) Lymph # [place] # Seg Neutrophils % Seg Neuts % (Manual) Lymphocytes % (Manual) Monocytes % (Manual) Nucleated RBC % Seg Neutrophils # Seg Neutrophils # Man Lymphocytes # (Manual) Monocytes # (Manual) POC ABG pH POC ABG pCO2 46.2 H POC ABG pO2 VBG pH Sodium Potassium Chloride Carbon Dioxide BUN Creatinine Glucose POC Glucose 184 H 150 H Hemoglobin A1c Lactic Acid Calcium Phosphorus Magnesium Direct Bilirubin AST ALT C-Reactive Protein Total Protein Albumin Urine WBC (Auto) Salicylates Acetaminophen Heparin-induced Plt Ab 11/10/18 11/10/18 11/10/18 02:52 05:00 05:00 WBC RBC 2.95 L Hgb 8.9 L Hct 26.6 L MCV MCHC RDW Plt Count 100 L Lymph % (Auto) [place] % (Auto) Lymph # [place] # Seg Neutrophils % Seg Neuts % (Manual) Lymphocytes % (Manual) Monocytes % (Manual) 8.0 H Nucleated RBC % Seg Neutrophils # Seg Neutrophils # Man Lymphocytes # (Manual) Monocytes # (Manual) POC ABG pH POC ABG pCO2 POC ABG pO2 VBG pH Sodium Potassium Chloride Carbon Dioxide BUN 33 H Creatinine 6.8 H Glucose 251 H POC Glucose 186 H Hemoglobin A1c Lactic Acid Calcium 7.3 L Phosphorus Magnesium Direct Bilirubin AST ALT C-Reactive Protein Total Protein Albumin Urine WBC (Auto) Salicylates Acetaminophen Heparin-induced Plt Ab 11/10/18 11/10/18 11/10/18 05:16 11:47 17:32 WBC RBC Hgb Hct MCV MCHC RDW Plt Count Lymph % (Auto) [place] % (Auto) Lymph # [place] # Seg Neutrophils % Seg Neuts % (Manual) Lymphocytes % (Manual) Monocytes % (Manual) Nucleated RBC % Seg Neutrophils # Seg Neutrophils # Man Lymphocytes # (Manual) Monocytes # (Manual) POC ABG pH POC ABG pCO2 POC ABG pO2 VBG pH Sodium Potassium Chloride Carbon Dioxide BUN Creatinine Glucose POC Glucose 242 H 261 H 194 H Hemoglobin A1c Lactic Acid Calcium Phosphorus Magnesium Direct Bilirubin AST ALT C-Reactive Protein Total Protein Albumin Urine WBC (Auto) Salicylates Acetaminophen Heparin-induced Plt Ab 11/10/18 11/11/18 11/11/18 23:39 00:26 04:24 WBC RBC 2.98 L Hgb 9.1 L Hct 27.4 L MCV MCHC RDW Plt Count 114 L Lymph % (Auto) [place] % (Auto) Lymph # [place] # Seg Neutrophils % Seg Neuts % (Manual) Lymphocytes % (Manual) Monocytes % (Manual) 10.0 H Nucleated RBC % Seg Neutrophils # Seg Neutrophils # Man Lymphocytes # (Manual) Monocytes # (Manual) 1.0 H POC ABG pH POC ABG pCO2 POC ABG pO2 VBG pH Sodium Potassium Chloride Carbon Dioxide BUN Creatinine Glucose POC Glucose 60 L 124 H Hemoglobin A1c Lactic Acid Calcium Phosphorus Magnesium Direct Bilirubin AST ALT C-Reactive Protein Total Protein Albumin Urine WBC (Auto) Salicylates Acetaminophen Heparin-induced Plt Ab 11/11/18 11/11/18 11/11/18 04:24 05:27 05:31 WBC RBC Hgb Hct MCV MCHC RDW Plt Count Lymph % (Auto) [place] % (Auto) Lymph # [place] # Seg Neutrophils % Seg Neuts % (Manual) Lymphocytes % (Manual) Monocytes % (Manual) Nucleated RBC % Seg Neutrophils # Seg Neutrophils # Man Lymphocytes # (Manual) Monocytes # (Manual) POC ABG pH POC ABG pCO2 48.8 H POC ABG pO2 109 H VBG pH Sodium Potassium Chloride Carbon Dioxide BUN 23 H Creatinine 5.5 H Glucose 147 H POC Glucose 172 H Hemoglobin A1c Lactic Acid Calcium 7.9 L Phosphorus Magnesium Direct Bilirubin AST 152 H ALT 247 H C-Reactive Protein Total Protein Albumin 2.3 L Urine WBC (Auto) Salicylates Acetaminophen Heparin-induced Plt Ab 11/11/18 11/11/18 11/11/18 12:11 17:12 23:41 WBC RBC Hgb Hct MCV MCHC RDW Plt Count Lymph % (Auto) [place] % (Auto) Lymph # [place] # Seg Neutrophils % Seg Neuts % (Manual) Lymphocytes % (Manual) Monocytes % (Manual) Nucleated RBC % Seg Neutrophils # Seg Neutrophils # Man Lymphocytes # (Manual) Monocytes # (Manual) POC ABG pH POC ABG pCO2 POC ABG pO2 VBG pH Sodium Potassium Chloride Carbon Dioxide BUN Creatinine Glucose POC Glucose 343 H 188 H 145 H Hemoglobin A1c Lactic Acid Calcium Phosphorus Magnesium Direct Bilirubin AST ALT C-Reactive Protein Total Protein Albumin Urine WBC (Auto) Salicylates Acetaminophen Heparin-induced Plt Ab 11/12/18 11/12/18 11/12/18 00:11 04:44 04:44 WBC RBC 2.91 L Hgb 9.0 L Hct 26.9 L MCV MCHC RDW Plt Count Lymph % (Auto) 12.7 L [place] % (Auto) 14.9 H Lymph # 0.8 L [place] # 1.0 H Seg Neutrophils % 71.2 H Seg Neuts % (Manual) Lymphocytes % (Manual) Monocytes % (Manual) Nucleated RBC % Seg Neutrophils # Seg Neutrophils # Man Lymphocytes # (Manual) Monocytes # (Manual) POC ABG pH POC ABG pCO2 POC ABG pO2 VBG pH Sodium Potassium Chloride Carbon Dioxide BUN 22 H Creatinine 5.0 H Glucose 288 H POC Glucose 151 H Hemoglobin A1c Lactic Acid Calcium Phosphorus Magnesium Direct Bilirubin AST 88 H ALT 187 H C-Reactive Protein Total Protein Albumin 2.9 L Urine WBC (Auto) Salicylates Acetaminophen Heparin-induced Plt Ab 11/12/18 11/12/18 11/12/18 11:48 12:28 17:13 WBC RBC Hgb Hct MCV MCHC RDW Plt Count Lymph % (Auto) [place] % (Auto) Lymph # [place] # Seg Neutrophils % Seg Neuts % (Manual) Lymphocytes % (Manual) Monocytes % (Manual) Nucleated RBC % Seg Neutrophils # Seg Neutrophils # Man Lymphocytes # (Manual) Monocytes # (Manual) POC ABG pH POC ABG pCO2 POC ABG pO2 VBG pH Sodium Potassium Chloride Carbon Dioxide BUN Creatinine Glucose POC Glucose 414 H 437 H 251 H Hemoglobin A1c Lactic Acid Calcium Phosphorus Magnesium Direct Bilirubin AST ALT C-Reactive Protein Total Protein Albumin Urine WBC (Auto) Salicylates Acetaminophen Heparin-induced Plt Ab 11/13/18 11/13/18 11/13/18 00:43 04:14 04:14 WBC RBC 2.62 L Hgb 8.0 L Hct 24.0 L MCV MCHC RDW Plt Count Lymph % (Auto) [place] % (Auto) 15.8 H Lymph # [place] # 0.9 H Seg Neutrophils % Seg Neuts % (Manual) Lymphocytes % (Manual) Monocytes % (Manual) Nucleated RBC % Seg Neutrophils # Seg Neutrophils # Man Lymphocytes # (Manual) Monocytes # (Manual) POC ABG pH POC ABG pCO2 POC ABG pO2 VBG pH Sodium Potassium Chloride Carbon Dioxide BUN 32 H Creatinine 6.9 H Glucose 190 H POC Glucose 149 H Hemoglobin A1c Lactic Acid Calcium Phosphorus Magnesium Direct Bilirubin AST ALT C-Reactive Protein Total Protein Albumin Urine WBC (Auto) Salicylates Acetaminophen Heparin-induced Plt Ab 11/13/18 11/13/18 11/13/18 05:53 10:40 12:05 WBC RBC Hgb Hct MCV MCHC RDW Plt Count Lymph % (Auto) [place] % (Auto) Lymph # [place] # Seg Neutrophils % Seg Neuts % (Manual) Lymphocytes % (Manual) Monocytes % (Manual) Nucleated RBC % Seg Neutrophils # Seg Neutrophils # Man Lymphocytes # (Manual) Monocytes # (Manual) POC ABG pH POC ABG pCO2 POC ABG pO2 VBG pH Sodium Potassium Chloride Carbon Dioxide BUN Creatinine Glucose POC Glucose 270 H 405 H 361 H Hemoglobin A1c Lactic Acid Calcium Phosphorus Magnesium Direct Bilirubin AST ALT C-Reactive Protein Total Protein Albumin Urine WBC (Auto) Salicylates Acetaminophen Heparin-induced Plt Ab 11/13/18 11/13/18 11/14/18 18:48 23:55 04:57 WBC RBC 2.75 L Hgb 8.3 L Hct 25.2 L MCV MCHC RDW Plt Count Lymph % (Auto) [place] % (Auto) 15.8 H Lymph # 0.9 L [place] # 0.9 H Seg Neutrophils % Seg Neuts % (Manual) Lymphocytes % (Manual) Monocytes % (Manual) Nucleated RBC % Seg Neutrophils # Seg Neutrophils # Man Lymphocytes # (Manual) Monocytes # (Manual) POC ABG pH POC ABG pCO2 POC ABG pO2 VBG pH Sodium Potassium Chloride Carbon Dioxide BUN Creatinine Glucose POC Glucose 202 H 254 H Hemoglobin A1c Lactic Acid Calcium Phosphorus Magnesium Direct Bilirubin AST ALT C-Reactive Protein Total Protein Albumin Urine WBC (Auto) Salicylates Acetaminophen Heparin-induced Plt Ab 11/14/18 11/14/18 11/14/18 04:57 05:33 11:37 WBC RBC Hgb Hct MCV MCHC RDW Plt Count Lymph % (Auto) [place] % (Auto) Lymph # [place] # Seg Neutrophils % Seg Neuts % (Manual) Lymphocytes % (Manual) Monocytes % (Manual) Nucleated RBC % Seg Neutrophils # Seg Neutrophils # Man Lymphocytes # (Manual) Monocytes # (Manual) POC ABG pH POC ABG pCO2 POC ABG pO2 VBG pH Sodium 136 L Potassium Chloride 96.7 L Carbon Dioxide BUN 25 H Creatinine 5.3 H Glucose 235 H POC Glucose 242 H 272 H Hemoglobin A1c Lactic Acid Calcium Phosphorus Magnesium Direct Bilirubin AST ALT C-Reactive Protein Total Protein Albumin Urine WBC (Auto) Salicylates Acetaminophen Heparin-induced Plt Ab 11/14/18 11/14/18 11/15/18 18:08 23:21 04:50 WBC RBC 2.76 L Hgb 8.5 L Hct 25.4 L MCV MCHC RDW Plt Count Lymph % (Auto) [place] % (Auto) 14.5 H Lymph # [place] # 1.1 H Seg Neutrophils % Seg Neuts % (Manual) Lymphocytes % (Manual) Monocytes % (Manual) Nucleated RBC % Seg Neutrophils # Seg Neutrophils # Man Lymphocytes # (Manual) Monocytes # (Manual) POC ABG pH POC ABG pCO2 POC ABG pO2 VBG pH Sodium Potassium Chloride Carbon Dioxide BUN Creatinine Glucose POC Glucose 166 H 185 H Hemoglobin A1c Lactic Acid Calcium Phosphorus Magnesium Direct Bilirubin AST ALT C-Reactive Protein Total Protein Albumin Urine WBC (Auto) Salicylates Acetaminophen Heparin-induced Plt Ab 11/15/18 11/15/18 11/15/18 04:50 04:50 06:01 WBC RBC Hgb Hct MCV MCHC RDW Plt Count Lymph % (Auto) [place] % (Auto) Lymph # [place] # Seg Neutrophils % Seg Neuts % (Manual) Lymphocytes % (Manual) Monocytes % (Manual) Nucleated RBC % Seg Neutrophils # Seg Neutrophils # Man Lymphocytes # (Manual) Monocytes # (Manual) POC ABG pH POC ABG pCO2 POC ABG pO2 VBG pH Sodium Potassium Chloride 95.2 L Carbon Dioxide BUN 21 H Creatinine 4.8 H Glucose 126 H POC Glucose 150 H Hemoglobin A1c 10.1 H Lactic Acid Calcium Phosphorus Magnesium Direct Bilirubin AST ALT 69 H C-Reactive Protein Total Protein Albumin 2.7 L Urine WBC (Auto) Salicylates Acetaminophen Heparin-induced Plt Ab 11/15/18 11/15/18 11/16/18 13:06 18:08 00:39 WBC RBC Hgb Hct MCV MCHC RDW Plt Count Lymph % (Auto) [place] % (Auto) Lymph # [place] # Seg Neutrophils % Seg Neuts % (Manual) Lymphocytes % (Manual) Monocytes % (Manual) Nucleated RBC % Seg Neutrophils # Seg Neutrophils # Man Lymphocytes # (Manual) Monocytes # (Manual) POC ABG pH POC ABG pCO2 POC ABG pO2 VBG pH Sodium Potassium Chloride Carbon Dioxide BUN Creatinine Glucose POC Glucose 191 H 114 H 147 H Hemoglobin A1c Lactic Acid Calcium Phosphorus Magnesium Direct Bilirubin AST ALT C-Reactive Protein Total Protein Albumin Urine WBC (Auto) Salicylates Acetaminophen Heparin-induced Plt Ab 11/16/18 11/16/18 11/16/18 04:49 04:49 06:09 WBC RBC 2.60 L Hgb 8.0 L Hct 23.4 L MCV MCHC RDW Plt Count Lymph % (Auto) [place] % (Auto) 14.1 H Lymph # [place] # 1.2 H Seg Neutrophils % Seg Neuts % (Manual) Lymphocytes % (Manual) Monocytes % (Manual) Nucleated RBC % Seg Neutrophils # Seg Neutrophils # Man Lymphocytes # (Manual) Monocytes # (Manual) POC ABG pH POC ABG pCO2 POC ABG pO2 VBG pH Sodium 136 L Potassium Chloride 94.1 L Carbon Dioxide BUN 39 H Creatinine 7.4 H D Glucose 243 H POC Glucose 308 H Hemoglobin A1c Lactic Acid Calcium 8.3 L Phosphorus Magnesium Direct Bilirubin AST ALT C-Reactive Protein Total Protein Albumin 2.2 L Urine WBC (Auto) Salicylates Acetaminophen Heparin-induced Plt Ab 11/16/18 11/16/18 11/16/18 08:52 11:53 17:11 WBC RBC Hgb Hct MCV MCHC RDW Plt Count Lymph % (Auto) [place] % (Auto) Lymph # [place] # Seg Neutrophils % Seg Neuts % (Manual) Lymphocytes % (Manual) Monocytes % (Manual) Nucleated RBC % Seg Neutrophils # Seg Neutrophils # Man Lymphocytes # (Manual) Monocytes # (Manual) POC ABG pH POC ABG pCO2 POC ABG pO2 VBG pH Sodium Potassium Chloride Carbon Dioxide BUN Creatinine Glucose POC Glucose 278 H 178 H 173 H Hemoglobin A1c Lactic Acid Calcium Phosphorus Magnesium Direct Bilirubin AST ALT C-Reactive Protein Total Protein Albumin Urine WBC (Auto) Salicylates Acetaminophen Heparin-induced Plt Ab 11/16/18 11/17/18 11/17/18 21:27 00:08 04:45 WBC RBC 2.58 L Hgb 7.9 L Hct 23.5 L MCV MCHC RDW Plt Count Lymph % (Auto) [place] % (Auto) 10.3 H Lymph # [place] # 1.1 H Seg Neutrophils % 74.8 H Seg Neuts % (Manual) Lymphocytes % (Manual) Monocytes % (Manual) Nucleated RBC % Seg Neutrophils # Seg Neutrophils # Man Lymphocytes # (Manual) Monocytes # (Manual) POC ABG pH POC ABG pCO2 POC ABG pO2 VBG pH Sodium Potassium Chloride Carbon Dioxide BUN Creatinine Glucose POC Glucose 206 H 151 H Hemoglobin A1c Lactic Acid Calcium Phosphorus Magnesium Direct Bilirubin AST ALT C-Reactive Protein Total Protein Albumin Urine WBC (Auto) Salicylates Acetaminophen Heparin-induced Plt Ab 11/17/18 11/17/18 11/17/18 04:45 05:12 05:31 WBC RBC Hgb Hct MCV MCHC RDW Plt Count Lymph % (Auto) [place] % (Auto) Lymph # [place] # Seg Neutrophils % Seg Neuts % (Manual) Lymphocytes % (Manual) Monocytes % (Manual) Nucleated RBC % Seg Neutrophils # Seg Neutrophils # Man Lymphocytes # (Manual) Monocytes # (Manual) POC ABG pH 7.481 H POC ABG pCO2 POC ABG pO2 VBG pH Sodium 136 L Potassium Chloride 94.4 L Carbon Dioxide BUN 38 H Creatinine 6.8 H Glucose POC Glucose 111 H Hemoglobin A1c Lactic Acid Calcium Phosphorus Magnesium 2.40 H Direct Bilirubin AST ALT C-Reactive Protein Total Protein Albumin Urine WBC (Auto) Salicylates Acetaminophen Heparin-induced Plt Ab 11/17/18 11/17/18 11/18/18 12:10 23:23 04:24 WBC RBC 2.66 L Hgb 8.2 L Hct 24.0 L MCV MCHC RDW Plt Count 448 H Lymph % (Auto) [place] % (Auto) 12.7 H Lymph # [place] # 1.4 H Seg Neutrophils % 71.9 H Seg Neuts % (Manual) Lymphocytes % (Manual) Monocytes % (Manual) Nucleated RBC % Seg Neutrophils # Seg Neutrophils # Man Lymphocytes # (Manual) Monocytes # (Manual) POC ABG pH POC ABG pCO2 POC ABG pO2 VBG pH Sodium Potassium Chloride Carbon Dioxide BUN Creatinine Glucose POC Glucose 174 H 243 H Hemoglobin A1c Lactic Acid Calcium Phosphorus Magnesium Direct Bilirubin AST ALT C-Reactive Protein Total Protein Albumin Urine WBC (Auto) Salicylates Acetaminophen Heparin-induced Plt Ab 11/18/18 11/18/18 11/18/18 04:24 05:26 11:48 WBC RBC Hgb Hct MCV MCHC RDW Plt Count Lymph % (Auto) [place] % (Auto) Lymph # [place] # Seg Neutrophils % Seg Neuts % (Manual) Lymphocytes % (Manual) Monocytes % (Manual) Nucleated RBC % Seg Neutrophils # Seg Neutrophils # Man Lymphocytes # (Manual) Monocytes # (Manual) POC ABG pH POC ABG pCO2 POC ABG pO2 VBG pH Sodium 136 L Potassium Chloride 93.1 L Carbon Dioxide BUN 30 H Creatinine 5.9 H Glucose 211 H POC Glucose 205 H 162 H Hemoglobin A1c Lactic Acid Calcium Phosphorus Magnesium Direct Bilirubin AST ALT C-Reactive Protein Total Protein Albumin Urine WBC (Auto) Salicylates Acetaminophen Heparin-induced Plt Ab 11/18/18 11/18/18 11/18/18 12:01 19:37 23:21 WBC RBC Hgb Hct MCV MCHC RDW Plt Count Lymph % (Auto) [place] % (Auto) Lymph # [place] # Seg Neutrophils % Seg Neuts % (Manual) Lymphocytes % (Manual) Monocytes % (Manual) Nucleated RBC % Seg Neutrophils # Seg Neutrophils # Man Lymphocytes # (Manual) Monocytes # (Manual) POC ABG pH POC ABG pCO2 POC ABG pO2 VBG pH Sodium Potassium Chloride Carbon Dioxide BUN Creatinine Glucose POC Glucose 207 H 245 H Hemoglobin A1c Lactic Acid Calcium Phosphorus Magnesium Direct Bilirubin AST ALT C-Reactive Protein Total Protein Albumin Urine WBC (Auto) > 182.0 H Salicylates Acetaminophen Heparin-induced Plt Ab 11/19/18 11/19/18 11/19/18 04:24 05:21 12:01 WBC RBC Hgb Hct MCV MCHC RDW Plt Count Lymph % (Auto) [place] % (Auto) Lymph # [place] # Seg Neutrophils % Seg Neuts % (Manual) Lymphocytes % (Manual) Monocytes % (Manual) Nucleated RBC % Seg Neutrophils # Seg Neutrophils # Man Lymphocytes # (Manual) Monocytes # (Manual) POC ABG pH POC ABG pCO2 POC ABG pO2 VBG pH Sodium 134 L Potassium 5.4 H Chloride 89.8 L Carbon Dioxide BUN 54 H Creatinine 8.0 H Glucose 240 H POC Glucose 234 H 179 H Hemoglobin A1c Lactic Acid Calcium Phosphorus Magnesium Direct Bilirubin AST ALT C-Reactive Protein Total Protein Albumin Urine WBC (Auto) Salicylates Acetaminophen Heparin-induced Plt Ab 11/19/18 11/19/18 11/19/18 12:41 17:32 21:53 WBC 13.7 H RBC 2.73 L Hgb 8.3 L Hct 24.9 L MCV MCHC RDW Plt Count 479 H Lymph % (Auto) [place] % (Auto) Lymph # [place] # Seg Neutrophils % Seg Neuts % (Manual) Lymphocytes % (Manual) Monocytes % (Manual) Nucleated RBC % Seg Neutrophils # Seg Neutrophils # Man Lymphocytes # (Manual) Monocytes # (Manual) POC ABG pH POC ABG pCO2 POC ABG pO2 VBG pH Sodium Potassium Chloride Carbon Dioxide BUN Creatinine Glucose POC Glucose 317 H 421 H Hemoglobin A1c Lactic Acid Calcium Phosphorus Magnesium Direct Bilirubin AST ALT C-Reactive Protein Total Protein Albumin Urine WBC (Auto) Salicylates Acetaminophen Heparin-induced Plt Ab 11/19/18 11/20/18 11/20/18 23:16 06:03 10:25 WBC 11.9 H RBC 2.58 L Hgb 7.8 L Hct 23.1 L MCV MCHC RDW Plt Count 444 H Lymph % (Auto) [place] % (Auto) Lymph # [place] # Seg Neutrophils % Seg Neuts % (Manual) Lymphocytes % (Manual) Monocytes % (Manual) Nucleated RBC % Seg Neutrophils # Seg Neutrophils # Man Lymphocytes # (Manual) Monocytes # (Manual) POC ABG pH POC ABG pCO2 POC ABG pO2 VBG pH Sodium Potassium Chloride Carbon Dioxide BUN Creatinine Glucose POC Glucose 396 H 294 H Hemoglobin A1c Lactic Acid Calcium Phosphorus Magnesium Direct Bilirubin AST ALT C-Reactive Protein Total Protein Albumin Urine WBC (Auto) Salicylates Acetaminophen Heparin-induced Plt Ab 11/20/18 10:25 WBC RBC Hgb Hct MCV MCHC RDW Plt Count Lymph % (Auto) [place] % (Auto) Lymph # [place] # Seg Neutrophils % Seg Neuts % (Manual) Lymphocytes % (Manual) Monocytes % (Manual) Nucleated RBC % Seg Neutrophils # Seg Neutrophils # Man Lymphocytes # (Manual) Monocytes # (Manual) POC ABG pH POC ABG pCO2 POC ABG pO2 VBG pH Sodium 135 L Potassium 6.1 H* Chloride 89.8 L Carbon Dioxide BUN 55 H Creatinine 8.2 H Glucose 302 H POC Glucose Hemoglobin A1c Lactic Acid Calcium Phosphorus Magnesium Direct Bilirubin AST ALT C-Reactive Protein Total Protein Albumin Urine WBC (Auto) Salicylates Acetaminophen Heparin-induced Plt Ab Chest x-ray: image reviewed (Trach in good position) Allied health notes reviewed: nursing
[2018-11-20] MEDS ORDERED: HumuLIN R IV ONE (12:00)
[2018-11-20] MEDS ORDERED: D50W (25GM) Syringe IV ONE (12:00)
[2018-11-20] MEDS ORDERED: CALCIUM GLUCONATE 2,000 MG in NACL 0.9% 100 ML IV ONE (12:00)
[2018-11-20] MEDS ORDERED: KIONEX PO ONE (12:00)
--- NOTE | 2018-11-20 12:00 | Progress Note ---
Assessment and Plan Severe renal failure due to GENEVIEVE on CKD, now ESRD on HD S/P High Anion Gap Metabolic Acidosis with elevated lactic acidosis with DKA: S/P Hyperkalemia: S/P Hyperphosphatemia: Hypernatremia: Hypokalemia, Resolving: - HD today for hyperkalemia - Strict monitoring of I/O's - Hypernatremia- resolved - Monitor BMP daily - Renally dose medications - Avoid Nephrotoxic agents - Obtain daily weights - Salgado Catheter: Yes - Assess dialysis needs daily S/p Cardiopulmonary arrest. STEMI: Hypoxic respiratory failure: -S/P CPR and ACLS protocol -Now off pressor support -Cardiology on board -Intubated on Vent. 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 per neurology -On IV Keppra -As per Neurology Subjective Date of service: 11/20/18 Principal diagnosis: Ac hypoxemic resp failure; DKA; Severe sepsis with shock; ESRD on dialysis Interval history: status post trach, no family at bedside Objective - Vital Signs Vital signs: Vital Signs - 12hr 11/20/18 11/20/18 11/20/18 00:00 00:30 01:00 Temperature 99.0 F Pulse Rate 99 H 101 H 102 H Pulse Rate [ 99 H From Monitor] Respiratory 20 20 20 Rate Blood Pressure 160/88 160/87 171/89 O2 Sat by Pulse 100 100 100 Oximetry O2 Sat by Pulse Oximetry [ Assessment] 11/20/18 11/20/18 11/20/18 01:30 02:00 02:30 Temperature Pulse Rate 103 H 101 H 106 H Pulse Rate [ 101 H From Monitor] Respiratory 20 20 20 Rate Blood Pressure 158/84 151/82 165/92 O2 Sat by Pulse 100 100 100 Oximetry O2 Sat by Pulse Oximetry [ Assessment] 11/20/18 11/20/18 11/20/18 03:00 03:28 03:30 Temperature Pulse Rate 107 H 103 H 107 H Pulse Rate [ From Monitor] Respiratory 22 20 Rate Blood Pressure 167/96 167/96 177/101 O2 Sat by Pulse 100 100 100 Oximetry O2 Sat by Pulse Oximetry [ Assessment] 11/20/18 11/20/18 11/20/18 04:00 04:05 04:30 Temperature 98.8 F Pulse Rate 107 H 105 H 100 H Pulse Rate [ 126 H From Monitor] Respiratory 20 20 Rate Blood Pressure 166/81 166/81 167/94 O2 Sat by Pulse 100 100 Oximetry O2 Sat by Pulse Oximetry [ Assessment] 11/20/18 11/20/18 11/20/18 05:00 05:30 06:00 Temperature Pulse Rate 95 H 100 H 101 H Pulse Rate [ From Monitor] Respiratory 21 20 20 Rate Blood Pressure 160/94 174/96 176/103 O2 Sat by Pulse 100 100 100 Oximetry O2 Sat by Pulse Oximetry [ Assessment] 11/20/18 11/20/18 11/20/18 06:14 06:30 07:00 Temperature 98.2 F Pulse Rate 100 H 100 H Pulse Rate [ From Monitor] Respiratory 20 20 Rate Blood Pressure 154/79 140/74 O2 Sat by Pulse 100 100 Oximetry O2 Sat by Pulse Oximetry [ Assessment] 11/20/18 11/20/18 11/20/18 07:30 07:54 08:00 Temperature 98.5 F Pulse Rate 99 H 99 H 100 H Pulse Rate [ 100 H From Monitor] Respiratory 20 20 Rate Blood Pressure 149/82 149/82 155/89 O2 Sat by Pulse 100 100 100 Oximetry O2 Sat by Pulse Oximetry [ Assessment] 11/20/18 11/20/18 11/20/18 08:19 08:29 08:31 Temperature Pulse Rate 110 H 108 H Pulse Rate [ From Monitor] Respiratory 12 Rate Blood Pressure 182/99 O2 Sat by Pulse 100 Oximetry O2 Sat by Pulse 100 Oximetry [ Assessment] 11/20/18 11/20/18 11/20/18 09:00 09:14 09:30 Temperature Pulse Rate 109 H 112 H 102 H Pulse Rate [ From Monitor] Respiratory 11 L 10 L Rate Blood Pressure 180/105 180/105 157/81 O2 Sat by Pulse 100 100 Oximetry O2 Sat by Pulse Oximetry [ Assessment] 11/20/18 11/20/18 11/20/18 09:33 10:00 10:30 Temperature Pulse Rate 97 H 96 H Pulse Rate [ From Monitor] Respiratory 10 L 18 Rate Blood Pressure 165/91 167/94 O2 Sat by Pulse 100 100 100 Oximetry O2 Sat by Pulse Oximetry [ Assessment] 11/20/18 11:00 Temperature Pulse Rate 98 H Pulse Rate [ From Monitor] Respiratory 18 Rate Blood Pressure 150/88 O2 Sat by Pulse 100 Oximetry O2 Sat by Pulse Oximetry [ Assessment] - General Appearance General appearance: well-developed, well-nourished EENT: ATNC, PERRL, mucous membranes moist Neck: no JVD, no carotid bruit Respiratory: Present: Decreased Breath Sounds Cardiology: regular, S1S2 Gastrointestinal: normoactive bowel sounds, no tenderness, no distended Integumentary: other (trace pitting edema in BLE) Neurologic: other (does not follow commands) Musculoskeletal: other (trace pitting edema in BLE) Psychiatric: other (does not answer questions) - Lab 11/20/18 10:25 11/20/18 10:25 Most recent lab results Calcium 9.1 mg/dL (8.4-10.2) 11/20/18 10:25 Phosphorus 3.50 mg/dL (2.5-4.5) 11/12/18 04:44 Magnesium 2.40 mg/dL (1.7-2.3) H 11/17/18 04:45 Medications & Allergies - Medications Allergies/Adverse Reactions: Allergies No Known Allergies Allergy (Verified 03/17/18 11:54) Home Medications: Home Medications Medication Instructions Recorded Confirmed Last Taken Type Esomeprazole Magnesium [NexIUM] 20 mg PO QDAY #30 suspdr.pkt 03/17/18 11/07/18 Unknown Rx HYDROcodone/APAP 5-325 [[place] 1 each PO Q6HR PRN #15 tablet 03/17/18 11/07/18 Unknown Rx 5/325] Metoclopramide [Reglan] 10 mg PO TID #21 tab 03/17/18 11/07/18 Unknown Rx Ondansetron [Zofran Odt] 4 mg PO Q4HR PRN #20 tab.rapdis 03/17/18 11/07/18 Unknown Rx Active Medications: Generic Name Dose Route Start Last Admin Trade Name Freq PRN Reason Stop Dose Admin Acetaminophen 650 mg 11/06/18 22:22 11/18/18 11:54 Tylenol FEEDTUBE 650 mg Q6H PRN Administration Fever >101 Lipase/Protease/Amylase 1 each 11/08/18 18:38 Pancreclara [place] 10,500 Unit FEEDTUBE PRN PRN For Clogged Feeding Tube Apixaban 2.5 mg 11/20/18 22:00 Eliquis FEEDTUBE BID MARIAJOSE Chlorpromazine HCl 10 mg 11/07/18 08:07 11/18/18 07:58 Thorazine PO 10 mg Q6H PRN Administration Hiccups Clonazepam 0.5 mg 11/12/18 16:49 11/13/18 23:10 Klonopin PO 0.5 mg Q12H PRN Administration myoclonic jerks Dextrose 50 ml 11/07/18 16:46 11/10/18 23:43 D50w (25gm) Syringe IV 50 ml PRN PRN Administration Hypoglycemia Dextrose 50 ml 11/20/18 12:00 11/20/18 11:40 D50w (25gm) Syringe IV 11/20/18 12:01 50 ml ONCE ONE Administration Epoetin Enoc 20,000 unit 11/18/18 13:46 11/19/18 10:11 Procrit IV 20,000 unit MARY PRN Administration hemodialysis Fentanyl 50 mcg 11/06/18 08:37 Sublimaze IV Q10MIN PRN ANALGESIA Hydralazine HCl 10 mg 11/08/18 00:56 11/14/18 08:34 Apresoline IV 10 mg Q4H PRN Administration Hypertension Hydralazine HCl 50 mg 11/14/18 09:16 11/19/18 21:23 Apresoline PO 50 mg Q8HR MARIAJOSE Administration Hydrophilic Ointment 1 applic 11/06/18 08:26 11/10/18 19:52 Vaseline Lip Therapy TP 1 applic Q2HR PRN Administration Dry Lips Fentanyl Citrate 2,000 mcg in 100 mls @ 4.309 mls/hr 11/06/18 10:00 11/20/18 09:15 Fentanyl Drip Premix IV 0 mcg/kg/hr TITR MARIAJOSE 0 mls/hr Titration Protocol 1 MCG/KG/HR Sodium Chloride 100 mls @ 999 mls/hr 11/14/18 11:33 Nacl 0.9% IV MARY PRN Hypotension Cefepime HCl 1 gm in 100 mls @ 200 mls/hr 11/19/18 18:00 11/19/18 18:01 Maxipime/Ns 1 Gm/100 Ml IV 200 mls/hr QPM MARIAJOSE Administration Protocol Calcium Gluconate 2,000 mg/ 120 mls @ 660 mls/hr 11/20/18 12:00 Sodium Chloride IV 11/20/18 12:10 ONCE ONE Insulin Human Isoph/Insulin Regular 36 unit 11/16/18 22:00 11/20/18 09:13 Humulin 70/30 SUB-Q 36 unit BID MARIAJOSE Administration Insulin Human Regular 0 units 11/07/18 18:00 11/20/18 06:16 Humulin R SUB-Q 6 units Q6HR MARIAJOSE Administration Protocol Insulin Human Regular 10 units 11/20/18 12:00 11/20/18 11:40 Humulin R IV 11/20/18 12:01 10 units ONCE ONE Administration Labetalol HCl 10 mg 11/19/18 16:09 11/20/18 09:14 Normodyne IV 10 mg Q4H PRN Administration Hypertension Lansoprazole 30 mg 11/09/18 10:00 11/20/18 09:13 Prevacid Solutab FEEDTUBE 30 mg BID MARIAJOSE Administration Levetiracetam 750 mg 11/18/18 10:00 11/20/18 09:13 Keppra PO 750 mg BID MARIAJOSE Administration Lorazepam 2 mg 11/12/18 08:31 11/15/18 14:25 Ativan IV 2 mg Q4H PRN Administration Agitation Metoprolol Tartrate 50 mg 11/14/18 10:00 11/20/18 09:14 Lopressor PO 50 mg Q6H MARIAJOSE Administration Modafinil 200 mg 11/17/18 10:00 11/20/18 09:13 Provigil PO 200 mg QAM MARIAJOSE Administration Multi-Ingred Cream/Lotion/Oil/Oint 1 applic 11/06/18 08:26 Artificial Tears Ophth Oint OU Q4HR PRN Dry Eye(s) Simple Syrup 15 ml 11/08/18 18:38 Simple Syrup FEEDTUBE PRN PRN Hypoglycemia Simple Syrup 30 ml 11/08/18 18:38 Simple Syrup FEEDTUBE PRN PRN Hypoglycemia Sodium Bicarbonate 325 mg 11/08/18 18:38 Sodium Bicarbonate FEEDTUBE PRN PRN For Clogged Feeding Tube Sodium Bicarbonate 50 meq 11/20/18 12:00 11/20/18 11:40 Sodium Bicarbonate 50meq Syringe IV 11/20/18 12:01 50 meq ONCE ONE Administration Sodium Chloride 10 ml 11/06/18 22:00 11/20/18 09:14 Sodium Chloride Flush Syringe 10 Ml IV 10 ml BID MARIAJOSE Administration Sodium Chloride 10 ml 11/06/18 12:42 11/13/18 10:30 Sodium Chloride Flush Syringe 10 Ml IV 10 ml PRN PRN Administration LINE FLUSH Sodium Polystyrene Sulfonate 30 gm 11/20/18 12:00 11/20/18 11:40 Kionex PO 11/20/18 12:01 30 gm ONCE ONE Administration Tamsulosin HCl 0.4 mg 11/10/18 13:00 11/20/18 09:13 Flomax PO 0.4 mg QDAY MARIAJOSE Administration
[2018-11-20] MEDS: APRESOLINE IV PRN (12:19)
--- NOTE | 2018-11-20 13:19 | Ultrasound Report ---
ULTRASOUND RENAL INDICATION: Evaluate for stones/hydronephrosis. COMPARISON: 03/17/2018 CT. FINDINGS: Renal sonography suggests mild to moderately increased renal cortical echogenicity, more so on the right. Grossly preserved contours. No hydronephrosis. RIGHT KIDNEY measures 12.1 x 4.4 x 5 cm with cortical thickness of 1.2 cm. LEFT KIDNEY visualization technically limited due to bowel gas, though estimated at 9.9 x 3.7 x 3.8 cm with cortical thickness of 1.6 cm. URINARY BLADDER now suboptimally distended and assessed with exaggerated/thickened wall measuring up to 1.6 cm laterally and posteriorly as on images 20-23. CONCLUSION: Underlying medical renal disease and now suboptimally distended urinary bladder with exaggerated wall thickness sonographically, as described. Please correlate. Thank you for the opportunity to participate in this patient's care.
--- NOTE | 2018-11-20 13:25 | Progress Note ---
Assessment and Plan - Patient Problems (1) Respiratory failure Current Visit: Yes Status: Acute Qualifiers: Chronicity: acute Respiratory failure complication: hypoxia Qualified Code(s): J96.01 - Acute respiratory failure with hypoxia Plan to address problem: Pt stable. s/p trach/PEG -11/19. Appears to be doing well. Will sign off. Please call with questions. Time=10min Subjective Date of service: 11/20/18 Patient Reports: Positive: other (no events o/n. On goal of TF) Objective Vital Signs - 12hr 11/20/18 11/20/18 11/20/18 01:30 02:00 02:30 Temperature Pulse Rate 103 H 101 H 106 H Pulse Rate [ 101 H From Monitor] Respiratory 20 20 20 Rate Blood Pressure 158/84 151/82 165/92 O2 Sat by Pulse 100 100 100 Oximetry O2 Sat by Pulse Oximetry [ Assessment] 11/20/18 11/20/18 11/20/18 03:00 03:28 03:30 Temperature Pulse Rate 107 H 103 H 107 H Pulse Rate [ From Monitor] Respiratory 22 20 Rate Blood Pressure 167/96 167/96 177/101 O2 Sat by Pulse 100 100 100 Oximetry O2 Sat by Pulse Oximetry [ Assessment] 11/20/18 11/20/18 11/20/18 04:00 04:05 04:30 Temperature 98.8 F Pulse Rate 107 H 105 H 100 H Pulse Rate [ 126 H From Monitor] Respiratory 20 20 Rate Blood Pressure 166/81 166/81 167/94 O2 Sat by Pulse 100 100 Oximetry O2 Sat by Pulse Oximetry [ Assessment] 11/20/18 11/20/18 11/20/18 05:00 05:30 06:00 Temperature Pulse Rate 95 H 100 H 101 H Pulse Rate [ From Monitor] Respiratory 21 20 20 Rate Blood Pressure 160/94 174/96 176/103 O2 Sat by Pulse 100 100 100 Oximetry O2 Sat by Pulse Oximetry [ Assessment] 11/20/18 11/20/18 11/20/18 06:14 06:30 07:00 Temperature 98.2 F Pulse Rate 100 H 100 H Pulse Rate [ From Monitor] Respiratory 20 20 Rate Blood Pressure 154/79 140/74 O2 Sat by Pulse 100 100 Oximetry O2 Sat by Pulse Oximetry [ Assessment] 11/20/18 11/20/18 11/20/18 07:30 07:54 08:00 Temperature 98.5 F Pulse Rate 99 H 99 H 100 H Pulse Rate [ 100 H From Monitor] Respiratory 20 20 Rate Blood Pressure 149/82 149/82 155/89 O2 Sat by Pulse 100 100 100 Oximetry O2 Sat by Pulse Oximetry [ Assessment] 11/20/18 11/20/18 11/20/18 08:19 08:29 08:31 Temperature Pulse Rate 110 H 108 H Pulse Rate [ From Monitor] Respiratory 12 Rate Blood Pressure 182/99 O2 Sat by Pulse 100 Oximetry O2 Sat by Pulse 100 Oximetry [ Assessment] 11/20/18 11/20/18 11/20/18 09:00 09:14 09:30 Temperature Pulse Rate 109 H 112 H 102 H Pulse Rate [ From Monitor] Respiratory 11 L 10 L Rate Blood Pressure 180/105 180/105 157/81 O2 Sat by Pulse 100 100 Oximetry O2 Sat by Pulse Oximetry [ Assessment] 11/20/18 11/20/18 11/20/18 09:33 10:00 10:30 Temperature Pulse Rate 97 H 96 H Pulse Rate [ From Monitor] Respiratory 10 L 18 Rate Blood Pressure 165/91 167/94 O2 Sat by Pulse 100 100 100 Oximetry O2 Sat by Pulse Oximetry [ Assessment] 11/20/18 11/20/18 11/20/18 11:00 11:30 12:00 Temperature 98.4 F Pulse Rate 98 H 96 H 103 H Pulse Rate [ 103 H From Monitor] Respiratory 18 10 L 17 Rate Blood Pressure 150/88 156/84 171/86 O2 Sat by Pulse 100 100 100 Oximetry O2 Sat by Pulse Oximetry [ Assessment] 11/20/18 11/20/18 12:19 12:30 Temperature Pulse Rate 104 H 104 H Pulse Rate [ From Monitor] Respiratory 21 Rate Blood Pressure 170/89 157/82 O2 Sat by Pulse 100 Oximetry O2 Sat by Pulse Oximetry [ Assessment] - General physical appearance no distress, no pain, other (minimally responsive) - ENT other (trach in place. No drainage or airleak. No swelling. ) - Respiratory normal expansion, normal respiratory effort - Abdomen soft, not distended, other (PEG in place. ) - Labs 11/20/18 10:25 11/20/18 10:25 Diabetes panel 11/20/18 Range/Units 10:25 Sodium 135 L (137-145) mmol/L Potassium 6.1 H* (3.6-5.0) mmol/L Chloride 89.8 L (98-107) mmol/L Carbon Dioxide 26 (22-30) mmol/L BUN 55 H (9-20) mg/dL Creatinine 8.2 H (0.8-1.5) mg/dL Glucose 302 H (75-100) mg/dL Calcium 9.1 (8.4-10.2) mg/dL Calcium panel 11/20/18 Range/Units 10:25 Calcium 9.1 (8.4-10.2) mg/dL Pituitary panel 11/20/18 Range/Units 10:25 Sodium 135 L (137-145) mmol/L Potassium 6.1 H* (3.6-5.0) mmol/L Chloride 89.8 L (98-107) mmol/L Carbon Dioxide 26 (22-30) mmol/L BUN 55 H (9-20) mg/dL Creatinine 8.2 H (0.8-1.5) mg/dL Glucose 302 H (75-100) mg/dL Calcium 9.1 (8.4-10.2) mg/dL Adrenal panel 11/20/18 Range/Units 10:25 Sodium 135 L (137-145) mmol/L Potassium 6.1 H* (3.6-5.0) mmol/L Chloride 89.8 L (98-107) mmol/L Carbon Dioxide 26 (22-30) mmol/L BUN 55 H (9-20) mg/dL Creatinine 8.2 H (0.8-1.5) mg/dL Glucose 302 H (75-100) mg/dL Calcium 9.1 (8.4-10.2) mg/dL
[2018-11-20] MEDS: APRESOLINE PO SCH ×2 (14:32→22:22)
--- NOTE | 2018-11-20 16:08 | Progress Note ---
Assessment and Plan /Severe hyperkalemia - Kayexalate with PEG tube, also placed on bicarbonate, calcium gluconate, insulin and D50 - Continue to monitor potassium level / Febrile illness with UTI - spiked fever on 11/18, urine cx showing gm negative rods - Started on cefepime, consulted ID /S/P Cardiopulmonary Arrest- Possibly from renal failure with severe DKA and underlying CHF 2d echo showed Ef 30-35% cont ventilatory support, nebulizers, monitor ins/os /Anoxic Encephalopathy; from cardiac arrest neurology following, supportive care Poor prognosis, follow EEG /-Acute Hypoxic Respiratory failure; on ventilatory support failed to extubate s/p trach and PEG on 11/19/ /-Accelerated hypertension; improved Continue current meds with PEG tube, IV labetalol as needed / DKA-corrected; uncontrolled blood sugars, a1c 10.1 Accu-Chek sliding scale coverage and ADA diet, on insulin, adjust the dose Dose as needed / SIRS, POA, likely from DKA and renal failure. 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 closely monitor platelets /-Seizure Disorder; seizure precautions cont Antiepileptic medications, neurology following, EEG findings noted /-Acute Kidney Injury secondary to ischemic ATN from hypotension, Hemodialysis per schedule nephrology following /-Cardiogenic Shock; improved /-Anemia of chronic disease; monitor H&H and transfuse as needed /-Severe malnutrition/nutritional supplements, nutrition consult; /-PAD; no statin for abnormal liver function /-Shock Liver; with transaminitis, trending down, cont to monitor, supportive care /CHF with EF 30-35% - monitor volume status, cardiology following --DVT prophylaxis; SCDs --Full CODE STATUS Very poor prognosis. Plan of care is reviewed with the patient's mother in detail Critical care time 34 minutes Disposition : will need placement Brief History 42 YO Male with ESRD on HD, HTN, DM, PAD, Nicotine Dependence presents to ED for evaluation. As per family, the patient was in his usual state of health around bedtime at 2200hrs. Pt was found down and unresponsive by family the next morning. EMS notified, and upon arrival the patient was found to be in distress. Pt Intubated and placed on vent support. Pt transported to [facility]. Pt seen and evaluated in ED and found to have STEMI, Acute on Chronic Renal Failure, Acidosis, Acute Respiratory Failure, Sepsis, and DKA. Pt experienced cardiac arrest in ED and was treated IAW ACLS protocol with return of perfusing cardiac rhythm. Pt found to have signs of Anoxic Brain Injury. Pt admitted to ICU and initiated on sepsis protocol and treated with IVF resuscitation therapy, IV pressor support. Pt has poor prognosis. Neurology , Cardiology ,pulm and Nephrology are following,receiving HD per nephrology, Vent dependent with poor prognosis, s/p Trach and PEG and placement 11/19. need placement Hospitalist Physical General appearance: Present: no acute distress, well-nourished, other (intubated on vent) - EENT Eyes: Present: PERRL - Neck Neck: Present: supple, normal ROM - Respiratory Respiratory effort: normal Respiratory: bilateral: diminished, rhonchi, negative: rales, wheezing - Cardiovascular Rhythm: regular Heart Sounds: Present: S1 & S2 - Extremities Extremities: no ischemia, No edema - Abdominal General gastrointestinal: soft, non-tender, non-distended, normal bowel sounds, hypoactive bowel sounds - Integumentary Integumentary: Present: clear, warm - Psychiatric Psychiatric: other (on vent) - Neurologic Neurologic: other (on vent) With trach Subjective Date of service: 11/20/18 Principal diagnosis: Ac hypoxemic resp failure; DKA; Severe sepsis with shock; ESRD on dialysis Interval history: Patient seen and examined tolerating TF K level >6 today, had Hd yesterday Objective - Constitutional Vitals: Vital Signs - 12hr 11/20/18 11/20/18 11/20/18 04:30 05:00 05:30 Temperature Pulse Rate 100 H 95 H 100 H Pulse Rate [ From Monitor] Respiratory 20 21 20 Rate Blood Pressure 167/94 160/94 174/96 O2 Sat by Pulse 100 100 100 Oximetry O2 Sat by Pulse Oximetry [ Assessment] 11/20/18 11/20/18 11/20/18 06:00 06:14 06:30 Temperature 98.2 F Pulse Rate 101 H 100 H Pulse Rate [ From Monitor] Respiratory 20 20 Rate Blood Pressure 176/103 154/79 O2 Sat by Pulse 100 100 Oximetry O2 Sat by Pulse Oximetry [ Assessment] 11/20/18 11/20/18 11/20/18 07:00 07:30 07:54 Temperature Pulse Rate 100 H 99 H 99 H Pulse Rate [ From Monitor] Respiratory 20 20 Rate Blood Pressure 140/74 149/82 149/82 O2 Sat by Pulse 100 100 100 Oximetry O2 Sat by Pulse Oximetry [ Assessment] 11/20/18 11/20/18 11/20/18 08:00 08:19 08:29 Temperature 98.5 F Pulse Rate 100 H 110 H Pulse Rate [ 100 H From Monitor] Respiratory 20 Rate Blood Pressure 155/89 O2 Sat by Pulse 100 Oximetry O2 Sat by Pulse 100 Oximetry [ Assessment] 11/20/18 11/20/18 11/20/18 08:31 09:00 09:14 Temperature Pulse Rate 108 H 109 H 112 H Pulse Rate [ From Monitor] Respiratory 12 11 L Rate Blood Pressure 182/99 180/105 180/105 O2 Sat by Pulse 100 100 Oximetry O2 Sat by Pulse Oximetry [ Assessment] 11/20/18 11/20/18 11/20/18 09:30 09:33 10:00 Temperature Pulse Rate 102 H 97 H Pulse Rate [ From Monitor] Respiratory 10 L 10 L Rate Blood Pressure 157/81 165/91 O2 Sat by Pulse 100 100 100 Oximetry O2 Sat by Pulse Oximetry [ Assessment] 11/20/18 11/20/18 11/20/18 10:30 11:00 11:30 Temperature Pulse Rate 96 H 98 H 96 H Pulse Rate [ From Monitor] Respiratory 18 18 10 L Rate Blood Pressure 167/94 150/88 156/84 O2 Sat by Pulse 100 100 100 Oximetry O2 Sat by Pulse Oximetry [ Assessment] 11/20/18 11/20/18 11/20/18 12:00 12:19 12:30 Temperature 98.4 F Pulse Rate 103 H 104 H 104 H Pulse Rate [ 103 H From Monitor] Respiratory 17 21 Rate Blood Pressure 171/86 170/89 157/82 O2 Sat by Pulse 100 100 Oximetry O2 Sat by Pulse Oximetry [ Assessment] 11/20/18 11/20/18 11/20/18 13:00 13:30 14:00 Temperature Pulse Rate 105 H 108 H 109 H Pulse Rate [ From Monitor] Respiratory 11 L 14 20 Rate Blood Pressure 152/78 170/87 170/86 O2 Sat by Pulse 100 100 100 Oximetry O2 Sat by Pulse Oximetry [ Assessment] 11/20/18 11/20/18 11/20/18 14:30 14:32 14:35 Temperature Pulse Rate 109 H 110 H Pulse Rate [ From Monitor] Respiratory 12 Rate Blood Pressure 153/78 153/78 O2 Sat by Pulse 100 100 Oximetry O2 Sat by Pulse Oximetry [ Assessment] 11/20/18 11/20/18 11/20/18 15:00 15:24 15:30 Temperature Pulse Rate 116 H 121 H 111 H Pulse Rate [ From Monitor] Respiratory 30 H 37 H Rate Blood Pressure 167/83 167/83 155/75 O2 Sat by Pulse 100 100 Oximetry O2 Sat by Pulse Oximetry [ Assessment] - Labs CBC & Chem 7: 11/21/18 04:44 11/21/18 04:44 Labs: Abnormal lab results 11/19/18 11/19/18 11/19/18 Range/Units 17:32 21:53 23:16 WBC (4.5-11.0) K/mm3 RBC (3.65-5.03) M/mm3 Hgb (11.8-15.2) gm/dl Hct (35.5-45.6) % Plt Count (140-440) K/mm3 Sodium (137-145) mmol/L Potassium (3.6-5.0) mmol/L Chloride (98-107) mmol/L BUN (9-20) mg/dL Creatinine (0.8-1.5) mg/dL Glucose (75-100) mg/dL POC Glucose 317 H 421 H 396 H (70-105) 11/20/18 11/20/18 11/20/18 Range/Units 06:03 10:25 10:25 WBC 11.9 H (4.5-11.0) K/mm3 RBC 2.58 L (3.65-5.03) M/mm3 Hgb 7.8 L (11.8-15.2) gm/dl Hct 23.1 L (35.5-45.6) % Plt Count 444 H (140-440) K/mm3 Sodium 135 L (137-145) mmol/L Potassium 6.1 H* (3.6-5.0) mmol/L Chloride 89.8 L (98-107) mmol/L BUN 55 H (9-20) mg/dL Creatinine 8.2 H (0.8-1.5) mg/dL Glucose 302 H (75-100) mg/dL POC Glucose 294 H (70-105) 06/14/19 Range/Units 12:39 WBC (4.5-11.0) K/mm3 RBC (3.65-5.03) M/mm3 Hgb (11.8-15.2) gm/dl Hct (35.5-45.6) % Plt Count (140-440) K/mm3 Sodium (137-145) mmol/L Potassium (3.6-5.0) mmol/L Chloride (98-107) mmol/L BUN (9-20) mg/dL Creatinine (0.8-1.5) mg/dL Glucose (75-100) mg/dL POC Glucose 245 H (70-105)
[2018-11-20] MEDS ORDERED: SIMPLE SYRUP FEEDTUBE PRN ×2 (16:59)
[2018-11-20] MEDS ORDERED: PANCREAZE DR 10,500 UNIT FEEDTUBE PRN (16:59)
[2018-11-20] MEDS ORDERED: SODIUM BICARBONATE FEEDTUBE PRN (16:59)
[2018-11-20 18:08] LABS: Calcium 9.3 mg/dL (8.4-10.2)
[2018-11-20] MEDS: MAXIPIME/NS 1 GM/100 ML 1 GM/100 ML BAG IV SCH (20:00)
[2018-11-20] MEDS: PROCRIT IV PRN (21:06)
[2018-11-20] MEDS: ELIQUIS FEEDTUBE SCH (22:21)
[2018-11-21 05:28] LABS: Calcium 9.4 mg/dL (8.4-10.2)
[2018-11-21 05:36] LABS: Basophils # (Auto) 0.1 K/mm3 (0.0-0.1); Basophils % (Auto) 0.9 % (0.0-1.8); Eosinophils % (Auto) 0.4 % (0.0-4.3); Hematocrit 22.3 % (35.5-45.6); Hemoglobin 7.8 gm/dl (11.8-15.2); Lymphocytes # (Auto) 1.7 K/mm3 (1.2-5.4); Lymphocytes % (Auto) 16.9 % (13.4-35.0); Mean Corpuscular HGB Conc 35 % (32-34); Mean Corpuscular Volume 89 fl (84-94); Monocytes % (Auto) 9.5 % (0.0-7.3); Platelet Count 437 K/mm3 (140-440); Red Blood Count 2.51 M/mm3 (3.65-5.03); Red Cell Distribution Width 14.6 % (13.2-15.2)
[2018-11-21] MEDS: HumuLIN R SUB-Q SCH ×4 (06:42→23:48)
[2018-11-21] MEDS: APRESOLINE PO SCH ×4 (06:43→21:24)
[2018-11-21] MEDS: fentaNYL DRIP Premix 2,000 MCG/100 ML BAG IV SCH (06:50)
--- NOTE | 2018-11-21 07:26 | Progress Note ---
Assessment and Plan Acute hypoxemic respiratory failure, on mechanical ventilator support. s/p Tracheosotmy Oropharyngeal dysphagia, s/p PEG Diabetic ketoacidosis. Severe metabolic acidosis. Severe sepsis with shock. Acute encephalopathy that appears to be toxic metabolic. End-stage renal disease, on dialysis. Hyperkalemia at presentation. Anemia that is macrocytic. Elevated serum transaminases Hypernatremia, improved Lactic acidosis. - trach care, airway clearance, secretion mangment -Weaning per protocol, PSV trials -Start ATP trials in the mornign as tolerated -Discontinue fentanyl infusion and start prn intermittent analgesia -Adjust insulin therapy for better glycemic control -Increase evening dose of NPH to 40 units -goal blood glucose of 140-180 mg/dL - continue to wean supplemental oxygen to keep O2 sats > 90% - continue bronchodilators with pulmonary hygiene per RT - Lung protective strategies - VAP bundle addressed - continue HD/UF as tolerated for toxin and volume clearance - continue to avoid nephrotoxic agents, adjust all medications for CrCL -Aspiration precautions, keep HOB >40 - Maintenance of sleep -wake cycle - Mobility protocol for pressure ulcer prevention - continue stress ulcer prophylaxis - Influenza and pneumonia vaccination per protocol PROGNOSIS: GUARDED CONDITION: CRITICAL CODE STATUS: FULL CODE Discussed care extensively with his mother and updated her Subjective Date of service: 11/21/18 Principal diagnosis: Ac hypoxemic resp failure; DKA; Severe sepsis with shock; ESRD on dialysis Interval history: Patient is seen today for: Acute hypoxemic respiratory failure on MVS; DKA; Severe metabolic acidosis; Severe sepsis with shock; Acute encephalopathy that appears to be toxic metabolic; ESRD on dialysis; DM II; Peripheral vascular disease. Seen and examined at bedside; 24hour events reviewed; nursing and respiratory care staff consulted; no adverse overnight events reported to me; remains on MVS; AMS is persistent, but opens eyes on verbal and tactile stimulation. Remains on fentanyl continuos infusion, s/p trach and PEG , mother at the bedside Objective Vital Signs - 12hr 11/20/18 11/20/18 11/20/18 19:30 19:45 20:00 Temperature 99.1 F Pulse Rate 101 H 102 H 102 H Pulse Rate [ 102 H From Monitor] Respiratory 20 20 Rate Blood Pressure 120/66 122/68 116/67 O2 Sat by Pulse 99 100 Oximetry O2 Sat by Pulse Oximetry [ Assessment] 11/20/18 11/20/18 11/20/18 20:10 20:15 20:30 Temperature Pulse Rate 104 H 105 H 103 H Pulse Rate [ From Monitor] Respiratory 21 Rate Blood Pressure 116/76 122/70 119/67 O2 Sat by Pulse 100 100 Oximetry O2 Sat by Pulse Oximetry [ Assessment] 11/20/18 11/20/18 11/20/18 20:45 21:00 21:01 Temperature Pulse Rate 113 H 112 H 116 H Pulse Rate [ From Monitor] Respiratory 30 H Rate Blood Pressure 133/70 150/82 150/82 O2 Sat by Pulse 100 Oximetry O2 Sat by Pulse Oximetry [ Assessment] 11/20/18 11/20/18 11/20/18 21:15 21:30 21:48 Temperature 99.1 F Pulse Rate 110 H 105 H 105 H Pulse Rate [ From Monitor] Respiratory 20 20 Rate Blood Pressure 141/86 107/60 118/67 O2 Sat by Pulse 100 Oximetry O2 Sat by Pulse Oximetry [ Assessment] 11/20/18 11/20/18 11/20/18 22:00 22:21 22:22 Temperature Pulse Rate 106 H 111 H 111 H Pulse Rate [ 109 H From Monitor] Respiratory 20 Rate Blood Pressure 116/61 119/68 119/68 O2 Sat by Pulse 100 Oximetry O2 Sat by Pulse Oximetry [ Assessment] 11/20/18 11/20/18 11/20/18 22:31 22:59 23:00 Temperature Pulse Rate 114 H 109 H 108 H Pulse Rate [ From Monitor] Respiratory 23 20 20 Rate Blood Pressure 139/74 142/81 113/74 O2 Sat by Pulse 100 100 100 Oximetry O2 Sat by Pulse Oximetry [ Assessment] 11/20/18 11/21/18 11/21/18 23:30 00:00 00:30 Temperature 97.9 F Pulse Rate 106 H 107 H 109 H Pulse Rate [ From Monitor] Respiratory 20 20 20 Rate Blood Pressure 135/71 130/66 130/78 O2 Sat by Pulse 100 100 100 Oximetry O2 Sat by Pulse Oximetry [ Assessment] 11/21/18 11/21/18 11/21/18 01:00 01:30 02:00 Temperature Pulse Rate 108 H 109 H 109 H Pulse Rate [ From Monitor] Respiratory 20 20 20 Rate Blood Pressure 136/78 139/82 146/75 O2 Sat by Pulse 100 100 99 Oximetry O2 Sat by Pulse Oximetry [ Assessment] 11/21/18 11/21/1811/21/19 02:30 03:00 03:30 Temperature Pulse Rate 106 H 105 H 106 H Pulse Rate [ From Monitor] Respiratory 19 20 19 Rate Blood Pressure 138/75 132/73 141/81 O2 Sat by Pulse 100 100 100 Oximetry O2 Sat by Pulse Oximetry [ Assessment] 11/21/18 11/21/18 11/21/18 03:37 03:40 04:00 Temperature 99.7 F H Pulse Rate 107 H 107 H Pulse Rate [ From Monitor] Respiratory 20 Rate Blood Pressure 140/80 131/72 O2 Sat by Pulse 100 100 Oximetry O2 Sat by Pulse 107 H Oximetry [ Assessment] 11/21/18 11/21/18 11/21/18 04:30 05:00 05:30 Temperature Pulse Rate 110 H 106 H 107 H Pulse Rate [ From Monitor] Respiratory 20 20 20 Rate Blood Pressure 138/78 133/72 132/76 O2 Sat by Pulse 100 100 100 Oximetry O2 Sat by Pulse Oximetry [ Assessment] 11/21/18 11/21/18 11/21/18 06:00 06:30 06:43 Temperature Pulse Rate 107 H 110 H 106 H Pulse Rate [ From Monitor] Respiratory 20 20 Rate Blood Pressure 132/76 139/81 139/81 O2 Sat by Pulse 100 100 Oximetry O2 Sat by Pulse Oximetry [ Assessment] 11/21/18 07:00 Temperature Pulse Rate 109 H Pulse Rate [ From Monitor] Respiratory 20 Rate Blood Pressure 137/75 O2 Sat by Pulse 99 Oximetry O2 Sat by Pulse Oximetry [ Assessment] Constitutional: no acute distress, other (middle aged AAM, normocephalic and atraumatic on MVS s/p tracheostomy) Eyes: non-icteric ENT: oropharynx moist, other (s/p tracheostomy) Neck: supple, no lymphadenopathy, no JVD Effort: normal Ascultation: Bilateral: clear, diminished breath sounds, rhonchi Percussion: Bilateral: not dull Cardiovascular: regular rate and rhythm, other (S1,S2, no murmurs, gallops or rubs) Gastrointestinal: normoactive bowel sounds, soft, non-tender, non-distended Integumentary: rash Extremities: no cyanosis, pulses normal, no ischemia or petechiae, edema Neurologic: pupils equal and round (minimally reactive), unable to assess, other Psychiatric: other (unable to assess re: AMS) CBC and BMP: 11/21/18 04:44 11/21/18 04:44 ABG, PT/INR, D-dimer: ABG POC ABG pH 7.423 (7.35-7.45) 11/20/18 09:40 POC ABG pCO2 44.8 (35-45) 11/20/18 09:40 POC ABG pO2 100 (80-105) 11/20/18 09:40 POC ABG HCO3 29.3 (22-26 mml/L) 11/20/18 09:40 POC ABG Total CO2 31 (23-27mmol/L) 11/20/18 09:40 POC ABG O2 Sat 98 11/20/18 09:40 Abnormal lab findings: Abnormal Labs 11/06/18 11/06/18 11/06/18 08:22 09:02 09:02 WBC 20.1 H RBC 3.40 L Hgb 10.5 L Hct MCV 119 H MCHC 26 L RDW 15.7 H Plt Count Lymph % (Auto) [place] % (Auto) Lymph # [place] # Seg Neutrophils % 80.1 H Seg Neuts % (Manual) 76.0 H Lymphocytes % (Manual) 4.0 L Monocytes % (Manual) Nucleated RBC % 1.0 H Seg Neutrophils # 16.1 H Seg Neutrophils # Man 15.3 H Lymphocytes # (Manual) 0.8 L Monocytes # (Manual) POC ABG pH POC ABG pCO2 POC ABG pO2 VBG pH Sodium 129 L Potassium 7.7 H* Chloride 79.7 L Carbon Dioxide 4 L* BUN 93 H Creatinine 7.4 H Glucose 1469 H* POC Glucose > 500 H Hemoglobin A1c Lactic Acid Calcium Phosphorus Magnesium Direct Bilirubin AST 2679 H ALT 1175 H C-Reactive Protein Total Protein 6.1 L Albumin 2.9 L Urine WBC (Auto) Salicylates Acetaminophen Heparin-induced Plt Ab 11/06/18 11/06/18 11/06/18 09:02 09:02 09:02 WBC RBC Hgb Hct MCV MCHC RDW Plt Count Lymph % (Auto) [place] % (Auto) Lymph # [place] # Seg Neutrophils % Seg Neuts % (Manual) Lymphocytes % (Manual) Monocytes % (Manual) Nucleated RBC % Seg Neutrophils # Seg Neutrophils # Man Lymphocytes # (Manual) Monocytes # (Manual) POC ABG pH POC ABG pCO2 POC ABG pO2 VBG pH Sodium Potassium Chloride Carbon Dioxide BUN Creatinine Glucose POC Glucose Hemoglobin A1c Lactic Acid 9.40 H* Calcium Phosphorus Magnesium Direct Bilirubin AST ALT C-Reactive Protein Total Protein Albumin Urine WBC (Auto) Salicylates < 0.3 L Acetaminophen < 5.0 L Heparin-induced Plt Ab 11/06/18 11/06/18 11/06/18 09:03 10:19 10:19 WBC RBC Hgb Hct MCV MCHC RDW Plt Count Lymph % (Auto) [place] % (Auto) Lymph # [place] # Seg Neutrophils % Seg Neuts % (Manual) Lymphocytes % (Manual) Monocytes % (Manual) Nucleated RBC % Seg Neutrophils # Seg Neutrophils # Man Lymphocytes # (Manual) Monocytes # (Manual) POC ABG pH 6.841 L POC ABG pCO2 POC ABG pO2 VBG pH Sodium 131 L Potassium 8.9 H* Chloride 85.3 L Carbon Dioxide 6 L* BUN 90 H Creatinine 7.1 H Glucose 1353 H* POC Glucose Hemoglobin A1c Lactic Acid Calcium 7.8 L Phosphorus 14.50 H Magnesium 2.70 H Direct Bilirubin AST ALT C-Reactive Protein Total Protein Albumin Urine WBC (Auto) Salicylates Acetaminophen Heparin-induced Plt Ab 11/06/18 11/06/18 11/06/18 12:07 13:22 13:22 WBC RBC Hgb Hct MCV MCHC RDW Plt Count Lymph % (Auto) [place] % (Auto) Lymph # [place] # Seg Neutrophils % Seg Neuts % (Manual) Lymphocytes % (Manual) Monocytes % (Manual) Nucleated RBC % Seg Neutrophils # Seg Neutrophils # Man Lymphocytes # (Manual) Monocytes # (Manual) POC ABG pH POC ABG pCO2 POC ABG pO2 VBG pH 6.982 L* Sodium 135 L Potassium 7.0 H* D Chloride 88.4 L Carbon Dioxide 5 L* BUN 89 H Creatinine 7.2 H Glucose 1326 H* POC Glucose Hemoglobin A1c Lactic Acid 8.50 H* Calcium Phosphorus Magnesium Direct Bilirubin AST ALT C-Reactive Protein Total Protein Albumin Urine WBC (Auto) Salicylates Acetaminophen Heparin-induced Plt Ab 11/06/18 11/06/18 11/06/18 14:15 14:15 15:21 WBC RBC Hgb Hct MCV MCHC RDW Plt Count Lymph % (Auto) [place] % (Auto) Lymph # [place] # Seg Neutrophils % Seg Neuts % (Manual) Lymphocytes % (Manual) Monocytes % (Manual) Nucleated RBC % Seg Neutrophils # Seg Neutrophils # Man Lymphocytes # (Manual) Monocytes # (Manual) POC ABG pH POC ABG pCO2 POC ABG pO2 VBG pH Sodium Potassium 6.6 H* 6.0 H Chloride 95.3 L 93.3 L Carbon Dioxide 4 L* 6 L* BUN 83 H 91 H Creatinine 6.9 H 7.3 H Glucose 1205 H* 1174 H* POC Glucose Hemoglobin A1c Lactic Acid Calcium 8.2 L Phosphorus 13.00 H Magnesium 2.60 H Direct Bilirubin AST ALT C-Reactive Protein Total Protein Albumin Urine WBC (Auto) Salicylates Acetaminophen Heparin-induced Plt Ab 11/06/18 11/06/18 11/06/18 15:21 16:14 16:33 WBC RBC Hgb Hct MCV MCHC RDW Plt Count Lymph % (Auto) [place] % (Auto) Lymph # [place] # Seg Neutrophils % Seg Neuts % (Manual) Lymphocytes % (Manual) Monocytes % (Manual) Nucleated RBC % Seg Neutrophils # Seg Neutrophils # Man Lymphocytes # (Manual) Monocytes # (Manual) POC ABG pH 7.004 L POC ABG pCO2 33.0 L POC ABG pO2 178 H VBG pH Sodium Potassium Chloride Carbon Dioxide BUN Creatinine Glucose POC Glucose > 500 H Hemoglobin A1c Lactic Acid 7.60 H* Calcium Phosphorus Magnesium Direct Bilirubin AST ALT C-Reactive Protein Total Protein Albumin Urine WBC (Auto) Salicylates Acetaminophen Heparin-induced Plt Ab 11/06/18 11/06/18 11/06/18 17:34 19:30 19:30 WBC RBC Hgb Hct MCV MCHC RDW Plt Count Lymph % (Auto) [place] % (Auto) Lymph # [place] # Seg Neutrophils % Seg Neuts % (Manual) Lymphocytes % (Manual) Monocytes % (Manual) Nucleated RBC % Seg Neutrophils # Seg Neutrophils # Man Lymphocytes # (Manual) Monocytes # (Manual) POC ABG pH POC ABG pCO2 POC ABG pO2 VBG pH Sodium Potassium 5.5 H Chloride 97.4 L 97.7 L Carbon Dioxide 10 L 11 L BUN 88 H 87 H Creatinine 7.5 H 7.6 H Glucose 1054 H* 954 H* POC Glucose Hemoglobin A1c Lactic Acid Calcium 7.7 L 7.4 L Phosphorus Magnesium Direct Bilirubin AST ALT C-Reactive Protein 1.90 H Total Protein Albumin Urine WBC (Auto) Salicylates Acetaminophen Heparin-induced Plt Ab 11/06/18 11/06/18 11/06/18 20:31 20:40 20:40 WBC RBC Hgb Hct MCV MCHC RDW Plt Count Lymph % (Auto) [place] % (Auto) Lymph # [place] # Seg Neutrophils % Seg Neuts % (Manual) Lymphocytes % (Manual) Monocytes % (Manual) Nucleated RBC % Seg Neutrophils # Seg Neutrophils # Man Lymphocytes # (Manual) Monocytes # (Manual) POC ABG pH 7.245 L POC ABG pCO2 POC ABG pO2 132 H VBG pH Sodium Potassium Chloride Carbon Dioxide BUN Creatinine Glucose 907 H* POC Glucose Hemoglobin A1c Lactic Acid 4.40 H* Calcium Phosphorus Magnesium Direct Bilirubin AST ALT C-Reactive Protein Total Protein Albumin Urine WBC (Auto) Salicylates Acetaminophen Heparin-induced Plt Ab 11/06/18 11/06/18 11/06/18 22:05 22:40 23:35 WBC RBC Hgb Hct MCV MCHC RDW Plt Count Lymph % (Auto) [place] % (Auto) Lymph # [place] # Seg Neutrophils % Seg Neuts % (Manual) Lymphocytes % (Manual) Monocytes % (Manual) Nucleated RBC % Seg Neutrophils # Seg Neutrophils # Man Lymphocytes # (Manual) Monocytes # (Manual) POC ABG pH POC ABG pCO2 POC ABG pO2 VBG pH Sodium Potassium Chloride Carbon Dioxide 13 L BUN 86 H Creatinine 7.8 H Glucose 822 H* 726 H* POC Glucose Hemoglobin A1c Lactic Acid 3.40 H* Calcium 7.5 L Phosphorus Magnesium Direct Bilirubin AST ALT C-Reactive Protein Total Protein Albumin Urine WBC (Auto) Salicylates Acetaminophen Heparin-induced Plt Ab 11/07/18 11/07/18 11/07/18 01:25 01:26 03:15 WBC RBC Hgb Hct MCV MCHC RDW Plt Count Lymph % (Auto) [place] % (Auto) Lymph # [place] # Seg Neutrophils % Seg Neuts % (Manual) Lymphocytes % (Manual) Monocytes % (Manual) Nucleated RBC % Seg Neutrophils # Seg Neutrophils # Man Lymphocytes # (Manual) Monocytes # (Manual) POC ABG pH POC ABG pCO2 POC ABG pO2 VBG pH Sodium Potassium Chloride Carbon Dioxide BUN Creatinine Glucose 602 H* POC Glucose > 500 H > 500 H Hemoglobin A1c Lactic Acid Calcium Phosphorus Magnesium Direct Bilirubin AST ALT C-Reactive Protein Total Protein Albumin Urine WBC (Auto) Salicylates Acetaminophen Heparin-induced Plt Ab 11/07/18 11/07/18 11/07/18 03:20 04:32 04:47 WBC RBC Hgb Hct MCV MCHC RDW Plt Count Lymph % (Auto) [place] % (Auto) Lymph # [place] # Seg Neutrophils % Seg Neuts % (Manual) Lymphocytes % (Manual) Monocytes % (Manual) Nucleated RBC % Seg Neutrophils # Seg Neutrophils # Man Lymphocytes # (Manual) Monocytes # (Manual) POC ABG pH POC ABG pCO2 30.3 L POC ABG pO2 153 H VBG pH Sodium 149 H Potassium Chloride Carbon Dioxide 16 L BUN 86 H Creatinine 8.3 H Glucose 499.2 H POC Glucose 360 H Hemoglobin A1c Lactic Acid Calcium 7.6 L Phosphorus Magnesium Direct Bilirubin AST ALT C-Reactive Protein Total Protein Albumin Urine WBC (Auto) Salicylates Acetaminophen Heparin-induced Plt Ab 11/07/18 11/07/18 11/07/18 05:26 06:35 06:36 WBC RBC Hgb Hct MCV MCHC RDW Plt Count Lymph % (Auto) [place] % (Auto) Lymph # [place] # Seg Neutrophils % Seg Neuts % (Manual) Lymphocytes % (Manual) Monocytes % (Manual) Nucleated RBC % Seg Neutrophils # Seg Neutrophils # Man Lymphocytes # (Manual) Monocytes # (Manual) POC ABG pH POC ABG pCO2 POC ABG pO2 VBG pH Sodium 153 H Potassium 3.2 L Chloride 109.7 H Carbon Dioxide BUN 84 H Creatinine 8.6 H Glucose 249 H POC Glucose 341 H 274 H Hemoglobin A1c Lactic Acid Calcium 7.6 L Phosphorus Magnesium Direct Bilirubin AST ALT C-Reactive Protein Total Protein Albumin Urine WBC (Auto) Salicylates Acetaminophen Heparin-induced Plt Ab 11/07/18 11/07/18 11/07/18 07:33 09:00 09:52 WBC RBC Hgb Hct MCV MCHC RDW Plt Count Lymph % (Auto) [place] % (Auto) Lymph # [place] # Seg Neutrophils % Seg Neuts % (Manual) Lymphocytes % (Manual) Monocytes % (Manual) Nucleated RBC % Seg Neutrophils # Seg Neutrophils # Man Lymphocytes # (Manual) Monocytes # (Manual) POC ABG pH POC ABG pCO2 POC ABG pO2 VBG pH Sodium Potassium Chloride Carbon Dioxide BUN Creatinine Glucose POC Glucose 243 H 182 H 227 H Hemoglobin A1c Lactic Acid Calcium Phosphorus Magnesium Direct Bilirubin AST ALT C-Reactive Protein Total Protein Albumin Urine WBC (Auto) Salicylates Acetaminophen Heparin-induced Plt Ab 11/07/18 11/07/18 11/07/18 10:50 10:50 10:50 WBC 11.3 H RBC 2.85 L Hgb 8.7 L Hct 25.3 L D MCV MCHC RDW Plt Count Lymph % (Auto) 9.7 L [place] % (Auto) Lymph # 1.1 L [place] # Seg Neutrophils % 83.3 H Seg Neuts % (Manual) Lymphocytes % (Manual) Monocytes % (Manual) Nucleated RBC % Seg Neutrophils # 9.4 H Seg Neutrophils # Man Lymphocytes # (Manual) Monocytes # (Manual) POC ABG pH POC ABG pCO2 POC ABG pO2 VBG pH Sodium 154 H Potassium 3.2 L Chloride 110.2 H Carbon Dioxide BUN 82 H Creatinine 8.3 H Glucose 186 H POC Glucose 200 H Hemoglobin A1c Lactic Acid Calcium 7.3 L Phosphorus Magnesium Direct Bilirubin AST ALT C-Reactive Protein Total Protein Albumin Urine WBC (Auto) Salicylates Acetaminophen Heparin-induced Plt Ab 11/07/18 11/07/18 11/07/18 12:00 12:05 13:13 WBC RBC Hgb Hct MCV MCHC RDW Plt Count Lymph % (Auto) [place] % (Auto) Lymph # [place] # Seg Neutrophils % Seg Neuts % (Manual) Lymphocytes % (Manual) Monocytes % (Manual) Nucleated RBC % Seg Neutrophils # Seg Neutrophils # Man Lymphocytes # (Manual) Monocytes # (Manual) POC ABG pH POC ABG pCO2 POC ABG pO2 VBG pH Sodium Potassium Chloride Carbon Dioxide BUN Creatinine Glucose POC Glucose 179 H 190 H Hemoglobin A1c Lactic Acid 2.50 H* Calcium Phosphorus Magnesium Direct Bilirubin AST ALT C-Reactive Protein Total Protein Albumin Urine WBC (Auto) Salicylates Acetaminophen Heparin-induced Plt Ab 11/07/18 11/07/18 11/07/18 13:20 14:05 15:18 WBC RBC Hgb Hct MCV MCHC RDW Plt Count Lymph % (Auto) [place] % (Auto) Lymph # [place] # Seg Neutrophils % Seg Neuts % (Manual) Lymphocytes % (Manual) Monocytes % (Manual) Nucleated RBC % Seg Neutrophils # Seg Neutrophils # Man Lymphocytes # (Manual) Monocytes # (Manual) POC ABG pH POC ABG pCO2 POC ABG pO2 VBG pH Sodium Potassium 3.1 L Chloride Carbon Dioxide BUN 50 H Creatinine 5.0 H Glucose 176 H POC Glucose 189 H 215 H Hemoglobin A1c Lactic Acid Calcium 7.4 L Phosphorus Magnesium Direct Bilirubin AST ALT C-Reactive Protein Total Protein Albumin Urine WBC (Auto) Salicylates Acetaminophen Heparin-induced Plt Ab 11/07/18 11/07/18 11/07/18 16:25 17:37 23:23 WBC RBC Hgb Hct MCV MCHC RDW Plt Count Lymph % (Auto) [place] % (Auto) Lymph # [place] # Seg Neutrophils % Seg Neuts % (Manual) Lymphocytes % (Manual) Monocytes % (Manual) Nucleated RBC % Seg Neutrophils # Seg Neutrophils # Man Lymphocytes # (Manual) Monocytes # (Manual) POC ABG pH POC ABG pCO2 POC ABG pO2 VBG pH Sodium Potassium Chloride Carbon Dioxide BUN Creatinine Glucose POC Glucose 180 H 215 H 234 H Hemoglobin A1c Lactic Acid Calcium Phosphorus Magnesium Direct Bilirubin AST ALT C-Reactive Protein Total Protein Albumin Urine WBC (Auto) Salicylates Acetaminophen Heparin-induced Plt Ab 11/08/18 11/08/18 11/08/18 04:17 04:23 04:23 WBC RBC 2.98 L Hgb 9.3 L Hct 26.7 L MCV MCHC 35 H RDW Plt Count 130 L Lymph % (Auto) [place] % (Auto) Lymph # [place] # Seg Neutrophils % 80.3 H Seg Neuts % (Manual) Lymphocytes % (Manual) Monocytes % (Manual) Nucleated RBC % Seg Neutrophils # 7.8 H Seg Neutrophils # Man Lymphocytes # (Manual) Monocytes # (Manual) POC ABG pH 7.520 H POC ABG pCO2 POC ABG pO2 111 H VBG pH Sodium Potassium 3.0 L Chloride Carbon Dioxide BUN 44 H Creatinine 6.3 H Glucose 245 H POC Glucose Hemoglobin A1c Lactic Acid Calcium 7.3 L Phosphorus Magnesium Direct Bilirubin AST ALT C-Reactive Protein Total Protein Albumin Urine WBC (Auto) Salicylates Acetaminophen Heparin-induced Plt Ab 11/08/18 11/08/18 11/08/18 05:19 08:00 08:00 WBC RBC Hgb Hct MCV MCHC RDW Plt Count Lymph % (Auto) [place] % (Auto) Lymph # [place] # Seg Neutrophils % Seg Neuts % (Manual) Lymphocytes % (Manual) Monocytes % (Manual) Nucleated RBC % Seg Neutrophils # Seg Neutrophils # Man Lymphocytes # (Manual) Monocytes # (Manual) POC ABG pH POC ABG pCO2 POC ABG pO2 VBG pH Sodium Potassium Chloride Carbon Dioxide BUN Creatinine Glucose POC Glucose 253 H Hemoglobin A1c Lactic Acid 2.70 H* Calcium Phosphorus Magnesium Direct Bilirubin 0.3 H AST 932 H ALT 582 H C-Reactive Protein Total Protein 5.4 L Albumin 2.6 L Urine WBC (Auto) Salicylates Acetaminophen Heparin-induced Plt Ab 11/08/18 11/08/18 11/08/18 11:36 17:51 21:59 WBC RBC Hgb Hct MCV MCHC RDW Plt Count Lymph % (Auto) [place] % (Auto) Lymph # [place] # Seg Neutrophils % Seg Neuts % (Manual) Lymphocytes % (Manual) Monocytes % (Manual) Nucleated RBC % Seg Neutrophils # Seg Neutrophils # Man Lymphocytes # (Manual) Monocytes # (Manual) POC ABG pH 7.459 H POC ABG pCO2 POC ABG pO2 108 H VBG pH Sodium Potassium Chloride Carbon Dioxide BUN Creatinine Glucose POC Glucose 197 H Hemoglobin A1c Lactic Acid Calcium Phosphorus Magnesium Direct Bilirubin AST ALT C-Reactive Protein Total Protein Albumin Urine WBC (Auto) Salicylates Acetaminophen Heparin-induced Plt Ab Positive H 11/08/18 11/09/18 11/09/18 23:28 00:39 02:20 WBC RBC Hgb Hct MCV MCHC RDW Plt Count Lymph % (Auto) [place] % (Auto) Lymph # [place] # Seg Neutrophils % Seg Neuts % (Manual) Lymphocytes % (Manual) Monocytes % (Manual) Nucleated RBC % Seg Neutrophils # Seg Neutrophils # Man Lymphocytes # (Manual) Monocytes # (Manual) POC ABG pH POC ABG pCO2 POC ABG pO2 VBG pH Sodium Potassium Chloride Carbon Dioxide BUN Creatinine Glucose POC Glucose 418 H 471 H 254 H Hemoglobin A1c Lactic Acid Calcium Phosphorus Magnesium Direct Bilirubin AST ALT C-Reactive Protein Total Protein Albumin Urine WBC (Auto) Salicylates Acetaminophen Heparin-induced Plt Ab 11/09/18 11/09/18 11/09/18 03:48 06:02 06:02 WBC RBC 2.95 L Hgb 9.2 L Hct 26.7 L MCV MCHC RDW Plt Count 101 L Lymph % (Auto) [place] % (Auto) Lymph # [place] # Seg Neutrophils % Seg Neuts % (Manual) Lymphocytes % (Manual) Monocytes % (Manual) Nucleated RBC % Seg Neutrophils # Seg Neutrophils # Man Lymphocytes # (Manual) Monocytes # (Manual) POC ABG pH POC ABG pCO2 POC ABG pO2 108 H VBG pH Sodium 150 H Potassium Chloride 108.3 H Carbon Dioxide BUN 44 H Creatinine 7.7 H Glucose 102 H POC Glucose Hemoglobin A1c Lactic Acid Calcium 7.2 L Phosphorus Magnesium Direct Bilirubin AST 554 H ALT 461 H C-Reactive Protein Total Protein 5.1 L Albumin 2.6 L Urine WBC (Auto) Salicylates Acetaminophen Heparin-induced Plt Ab 11/09/18 11/09/18 11/09/18 17:49 18:49 23:32 WBC RBC Hgb Hct MCV MCHC RDW Plt Count Lymph % (Auto) [place] % (Auto) Lymph # [place] # Seg Neutrophils % Seg Neuts % (Manual) Lymphocytes % (Manual) Monocytes % (Manual) Nucleated RBC % Seg Neutrophils # Seg Neutrophils # Man Lymphocytes # (Manual) Monocytes # (Manual) POC ABG pH POC ABG pCO2 46.2 H POC ABG pO2 VBG pH Sodium Potassium Chloride Carbon Dioxide BUN Creatinine Glucose POC Glucose 184 H 150 H Hemoglobin A1c Lactic Acid Calcium Phosphorus Magnesium Direct Bilirubin AST ALT C-Reactive Protein Total Protein Albumin Urine WBC (Auto) Salicylates Acetaminophen Heparin-induced Plt Ab 11/10/18 11/10/18 11/10/18 02:52 05:00 05:00 WBC RBC 2.95 L Hgb 8.9 L Hct 26.6 L MCV MCHC RDW Plt Count 100 L Lymph % (Auto) [place] % (Auto) Lymph # [place] # Seg Neutrophils % Seg Neuts % (Manual) Lymphocytes % (Manual) Monocytes % (Manual) 8.0 H Nucleated RBC % Seg Neutrophils # Seg Neutrophils # Man Lymphocytes # (Manual) Monocytes # (Manual) POC ABG pH POC ABG pCO2 POC ABG pO2 VBG pH Sodium Potassium Chloride Carbon Dioxide BUN 33 H Creatinine 6.8 H Glucose 251 H POC Glucose 186 H Hemoglobin A1c Lactic Acid Calcium 7.3 L Phosphorus Magnesium Direct Bilirubin AST ALT C-Reactive Protein Total Protein Albumin Urine WBC (Auto) Salicylates Acetaminophen Heparin-induced Plt Ab 11/10/18 11/10/18 11/10/18 05:16 11:47 17:32 WBC RBC Hgb Hct MCV MCHC RDW Plt Count Lymph % (Auto) [place] % (Auto) Lymph # [place] # Seg Neutrophils % Seg Neuts % (Manual) Lymphocytes % (Manual) Monocytes % (Manual) Nucleated RBC % Seg Neutrophils # Seg Neutrophils # Man Lymphocytes # (Manual) Monocytes # (Manual) POC ABG pH POC ABG pCO2 POC ABG pO2 VBG pH Sodium Potassium Chloride Carbon Dioxide BUN Creatinine Glucose POC Glucose 242 H 261 H 194 H Hemoglobin A1c Lactic Acid Calcium Phosphorus Magnesium Direct Bilirubin AST ALT C-Reactive Protein Total Protein Albumin Urine WBC (Auto) Salicylates Acetaminophen Heparin-induced Plt Ab 11/10/18 11/11/18 11/11/18 23:39 00:26 04:24 WBC RBC 2.98 L Hgb 9.1 L Hct 27.4 L MCV MCHC RDW Plt Count 114 L Lymph % (Auto) [place] % (Auto) Lymph # [place] # Seg Neutrophils % Seg Neuts % (Manual) Lymphocytes % (Manual) Monocytes % (Manual) 10.0 H Nucleated RBC % Seg Neutrophils # Seg Neutrophils # Man Lymphocytes # (Manual) Monocytes # (Manual) 1.0 H POC ABG pH POC ABG pCO2 POC ABG pO2 VBG pH Sodium Potassium Chloride Carbon Dioxide BUN Creatinine Glucose POC Glucose 60 L 124 H Hemoglobin A1c Lactic Acid Calcium Phosphorus Magnesium Direct Bilirubin AST ALT C-Reactive Protein Total Protein Albumin Urine WBC (Auto) Salicylates Acetaminophen Heparin-induced Plt Ab 11/11/18 11/11/18 11/11/18 04:24 05:27 05:31 WBC RBC Hgb Hct MCV MCHC RDW Plt Count Lymph % (Auto) [place] % (Auto) Lymph # [place] # Seg Neutrophils % Seg Neuts % (Manual) Lymphocytes % (Manual) Monocytes % (Manual) Nucleated RBC % Seg Neutrophils # Seg Neutrophils # Man Lymphocytes # (Manual) Monocytes # (Manual) POC ABG pH POC ABG pCO2 48.8 H POC ABG pO2 109 H VBG pH Sodium Potassium Chloride Carbon Dioxide BUN 23 H Creatinine 5.5 H Glucose 147 H POC Glucose 172 H Hemoglobin A1c Lactic Acid Calcium 7.9 L Phosphorus Magnesium Direct Bilirubin AST 152 H ALT 247 H C-Reactive Protein Total Protein Albumin 2.3 L Urine WBC (Auto) Salicylates Acetaminophen Heparin-induced Plt Ab 11/11/18 11/11/18 11/11/18 12:11 17:12 23:41 WBC RBC Hgb Hct MCV MCHC RDW Plt Count Lymph % (Auto) [place] % (Auto) Lymph # [place] # Seg Neutrophils % Seg Neuts % (Manual) Lymphocytes % (Manual) Monocytes % (Manual) Nucleated RBC % Seg Neutrophils # Seg Neutrophils # Man Lymphocytes # (Manual) Monocytes # (Manual) POC ABG pH POC ABG pCO2 POC ABG pO2 VBG pH Sodium Potassium Chloride Carbon Dioxide BUN Creatinine Glucose POC Glucose 343 H 188 H 145 H Hemoglobin A1c Lactic Acid Calcium Phosphorus Magnesium Direct Bilirubin AST ALT C-Reactive Protein Total Protein Albumin Urine WBC (Auto) Salicylates Acetaminophen Heparin-induced Plt Ab 11/12/18 11/12/18 11/12/18 00:11 04:44 04:44 WBC RBC 2.91 L Hgb 9.0 L Hct 26.9 L MCV MCHC RDW Plt Count Lymph % (Auto) 12.7 L [place] % (Auto) 14.9 H Lymph # 0.8 L [place] # 1.0 H Seg Neutrophils % 71.2 H Seg Neuts % (Manual) Lymphocytes % (Manual) Monocytes % (Manual) Nucleated RBC % Seg Neutrophils # Seg Neutrophils # Man Lymphocytes # (Manual) Monocytes # (Manual) POC ABG pH POC ABG pCO2 POC ABG pO2 VBG pH Sodium Potassium Chloride Carbon Dioxide BUN 22 H Creatinine 5.0 H Glucose 288 H POC Glucose 151 H Hemoglobin A1c Lactic Acid Calcium Phosphorus Magnesium Direct Bilirubin AST 88 H ALT 187 H C-Reactive Protein Total Protein Albumin 2.9 L Urine WBC (Auto) Salicylates Acetaminophen Heparin-induced Plt Ab 11/12/18 11/12/18 11/12/18 11:48 12:28 17:13 WBC RBC Hgb Hct MCV MCHC RDW Plt Count Lymph % (Auto) [place] % (Auto) Lymph # [place] # Seg Neutrophils % Seg Neuts % (Manual) Lymphocytes % (Manual) Monocytes % (Manual) Nucleated RBC % Seg Neutrophils # Seg Neutrophils # Man Lymphocytes # (Manual) Monocytes # (Manual) POC ABG pH POC ABG pCO2 POC ABG pO2 VBG pH Sodium Potassium Chloride Carbon Dioxide BUN Creatinine Glucose POC Glucose 414 H 437 H 251 H Hemoglobin A1c Lactic Acid Calcium Phosphorus Magnesium Direct Bilirubin AST ALT C-Reactive Protein Total Protein Albumin Urine WBC (Auto) Salicylates Acetaminophen Heparin-induced Plt Ab 11/13/18 11/13/18 11/13/18 00:43 04:14 04:14 WBC RBC 2.62 L Hgb 8.0 L Hct 24.0 L MCV MCHC RDW Plt Count Lymph % (Auto) [place] % (Auto) 15.8 H Lymph # [place] # 0.9 H Seg Neutrophils % Seg Neuts % (Manual) Lymphocytes % (Manual) Monocytes % (Manual) Nucleated RBC % Seg Neutrophils # Seg Neutrophils # Man Lymphocytes # (Manual) Monocytes # (Manual) POC ABG pH POC ABG pCO2 POC ABG pO2 VBG pH Sodium Potassium Chloride Carbon Dioxide BUN 32 H Creatinine 6.9 H Glucose 190 H POC Glucose 149 H Hemoglobin A1c Lactic Acid Calcium Phosphorus Magnesium Direct Bilirubin AST ALT C-Reactive Protein Total Protein Albumin Urine WBC (Auto) Salicylates Acetaminophen Heparin-induced Plt Ab 11/13/18 11/13/18 11/13/18 05:53 10:40 12:05 WBC RBC Hgb Hct MCV MCHC RDW Plt Count Lymph % (Auto) [place] % (Auto) Lymph # [place] # Seg Neutrophils % Seg Neuts % (Manual) Lymphocytes % (Manual) Monocytes % (Manual) Nucleated RBC % Seg Neutrophils # Seg Neutrophils # Man Lymphocytes # (Manual) Monocytes # (Manual) POC ABG pH POC ABG pCO2 POC ABG pO2 VBG pH Sodium Potassium Chloride Carbon Dioxide BUN Creatinine Glucose POC Glucose 270 H 405 H 361 H Hemoglobin A1c Lactic Acid Calcium Phosphorus Magnesium Direct Bilirubin AST ALT C-Reactive Protein Total Protein Albumin Urine WBC (Auto) Salicylates Acetaminophen Heparin-induced Plt Ab 11/13/18 11/13/18 11/14/18 18:48 23:55 04:57 WBC RBC 2.75 L Hgb 8.3 L Hct 25.2 L MCV MCHC RDW Plt Count Lymph % (Auto) [place] % (Auto) 15.8 H Lymph # 0.9 L [place] # 0.9 H Seg Neutrophils % Seg Neuts % (Manual) Lymphocytes % (Manual) Monocytes % (Manual) Nucleated RBC % Seg Neutrophils # Seg Neutrophils # Man Lymphocytes # (Manual) Monocytes # (Manual) POC ABG pH POC ABG pCO2 POC ABG pO2 VBG pH Sodium Potassium Chloride Carbon Dioxide BUN Creatinine Glucose POC Glucose 202 H 254 H Hemoglobin A1c Lactic Acid Calcium Phosphorus Magnesium Direct Bilirubin AST ALT C-Reactive Protein Total Protein Albumin Urine WBC (Auto) Salicylates Acetaminophen Heparin-induced Plt Ab 11/14/18 11/14/18 11/14/18 04:57 05:33 11:37 WBC RBC Hgb Hct MCV MCHC RDW Plt Count Lymph % (Auto) [place] % (Auto) Lymph # [place] # Seg Neutrophils % Seg Neuts % (Manual) Lymphocytes % (Manual) Monocytes % (Manual) Nucleated RBC % Seg Neutrophils # Seg Neutrophils # Man Lymphocytes # (Manual) Monocytes # (Manual) POC ABG pH POC ABG pCO2 POC ABG pO2 VBG pH Sodium 136 L Potassium Chloride 96.7 L Carbon Dioxide BUN 25 H Creatinine 5.3 H Glucose 235 H POC Glucose 242 H 272 H Hemoglobin A1c Lactic Acid Calcium Phosphorus Magnesium Direct Bilirubin AST ALT C-Reactive Protein Total Protein Albumin Urine WBC (Auto) Salicylates Acetaminophen Heparin-induced Plt Ab 11/14/18 11/14/18 11/15/18 18:08 23:21 04:50 WBC RBC 2.76 L Hgb 8.5 L Hct 25.4 L MCV MCHC RDW Plt Count Lymph % (Auto) [place] % (Auto) 14.5 H Lymph # [place] # 1.1 H Seg Neutrophils % Seg Neuts % (Manual) Lymphocytes % (Manual) Monocytes % (Manual) Nucleated RBC % Seg Neutrophils # Seg Neutrophils # Man Lymphocytes # (Manual) Monocytes # (Manual) POC ABG pH POC ABG pCO2 POC ABG pO2 VBG pH Sodium Potassium Chloride Carbon Dioxide BUN Creatinine Glucose POC Glucose 166 H 185 H Hemoglobin A1c Lactic Acid Calcium Phosphorus Magnesium Direct Bilirubin AST ALT C-Reactive Protein Total Protein Albumin Urine WBC (Auto) Salicylates Acetaminophen Heparin-induced Plt Ab 11/15/18 11/15/18 11/15/18 04:50 04:50 06:01 WBC RBC Hgb Hct MCV MCHC RDW Plt Count Lymph % (Auto) [place] % (Auto) Lymph # [place] # Seg Neutrophils % Seg Neuts % (Manual) Lymphocytes % (Manual) Monocytes % (Manual) Nucleated RBC % Seg Neutrophils # Seg Neutrophils # Man Lymphocytes # (Manual) Monocytes # (Manual) POC ABG pH POC ABG pCO2 POC ABG pO2 VBG pH Sodium Potassium Chloride 95.2 L Carbon Dioxide BUN 21 H Creatinine 4.8 H Glucose 126 H POC Glucose 150 H Hemoglobin A1c 10.1 H Lactic Acid Calcium Phosphorus Magnesium Direct Bilirubin AST ALT 69 H C-Reactive Protein Total Protein Albumin 2.7 L Urine WBC (Auto) Salicylates Acetaminophen Heparin-induced Plt Ab 11/15/18 11/15/18 11/16/18 13:06 18:08 00:39 WBC RBC Hgb Hct MCV MCHC RDW Plt Count Lymph % (Auto) [place] % (Auto) Lymph # [place] # Seg Neutrophils % Seg Neuts % (Manual) Lymphocytes % (Manual) Monocytes % (Manual) Nucleated RBC % Seg Neutrophils # Seg Neutrophils # Man Lymphocytes # (Manual) Monocytes # (Manual) POC ABG pH POC ABG pCO2 POC ABG pO2 VBG pH Sodium Potassium Chloride Carbon Dioxide BUN Creatinine Glucose POC Glucose 191 H 114 H 147 H Hemoglobin A1c Lactic Acid Calcium Phosphorus Magnesium Direct Bilirubin AST ALT C-Reactive Protein Total Protein Albumin Urine WBC (Auto) Salicylates Acetaminophen Heparin-induced Plt Ab 11/16/18 11/16/18 11/16/18 04:49 04:49 06:09 WBC RBC 2.60 L Hgb 8.0 L Hct 23.4 L MCV MCHC RDW Plt Count Lymph % (Auto) [place] % (Auto) 14.1 H Lymph # [place] # 1.2 H Seg Neutrophils % Seg Neuts % (Manual) Lymphocytes % (Manual) Monocytes % (Manual) Nucleated RBC % Seg Neutrophils # Seg Neutrophils # Man Lymphocytes # (Manual) Monocytes # (Manual) POC ABG pH POC ABG pCO2 POC ABG pO2 VBG pH Sodium 136 L Potassium Chloride 94.1 L Carbon Dioxide BUN 39 H Creatinine 7.4 H D Glucose 243 H POC Glucose 308 H Hemoglobin A1c Lactic Acid Calcium 8.3 L Phosphorus Magnesium Direct Bilirubin AST ALT C-Reactive Protein Total Protein Albumin 2.2 L Urine WBC (Auto) Salicylates Acetaminophen Heparin-induced Plt Ab 11/16/18 11/16/18 11/16/18 08:52 11:53 17:11 WBC RBC Hgb Hct MCV MCHC RDW Plt Count Lymph % (Auto) [place] % (Auto) Lymph # [place] # Seg Neutrophils % Seg Neuts % (Manual) Lymphocytes % (Manual) Monocytes % (Manual) Nucleated RBC % Seg Neutrophils # Seg Neutrophils # Man Lymphocytes # (Manual) Monocytes # (Manual) POC ABG pH POC ABG pCO2 POC ABG pO2 VBG pH Sodium Potassium Chloride Carbon Dioxide BUN Creatinine Glucose POC Glucose 278 H 178 H 173 H Hemoglobin A1c Lactic Acid Calcium Phosphorus Magnesium Direct Bilirubin AST ALT C-Reactive Protein Total Protein Albumin Urine WBC (Auto) Salicylates Acetaminophen Heparin-induced Plt Ab 11/16/18 11/17/18 11/17/18 21:27 00:08 04:45 WBC RBC 2.58 L Hgb 7.9 L Hct 23.5 L MCV MCHC RDW Plt Count Lymph % (Auto) [place] % (Auto) 10.3 H Lymph # [place] # 1.1 H Seg Neutrophils % 74.8 H Seg Neuts % (Manual) Lymphocytes % (Manual) Monocytes % (Manual) Nucleated RBC % Seg Neutrophils # Seg Neutrophils # Man Lymphocytes # (Manual) Monocytes # (Manual) POC ABG pH POC ABG pCO2 POC ABG pO2 VBG pH Sodium Potassium Chloride Carbon Dioxide BUN Creatinine Glucose POC Glucose 206 H 151 H Hemoglobin A1c Lactic Acid Calcium Phosphorus Magnesium Direct Bilirubin AST ALT C-Reactive Protein Total Protein Albumin Urine WBC (Auto) Salicylates Acetaminophen Heparin-induced Plt Ab 11/17/18 11/17/18 11/17/18 04:45 05:12 05:31 WBC RBC Hgb Hct MCV MCHC RDW Plt Count Lymph % (Auto) [place] % (Auto) Lymph # [place] # Seg Neutrophils % Seg Neuts % (Manual) Lymphocytes % (Manual) Monocytes % (Manual) Nucleated RBC % Seg Neutrophils # Seg Neutrophils # Man Lymphocytes # (Manual) Monocytes # (Manual) POC ABG pH 7.481 H POC ABG pCO2 POC ABG pO2 VBG pH Sodium 136 L Potassium Chloride 94.4 L Carbon Dioxide BUN 38 H Creatinine 6.8 H Glucose POC Glucose 111 H Hemoglobin A1c Lactic Acid Calcium Phosphorus Magnesium 2.40 H Direct Bilirubin AST ALT C-Reactive Protein Total Protein Albumin Urine WBC (Auto) Salicylates Acetaminophen Heparin-induced Plt Ab 11/17/18 11/17/18 11/18/18 12:10 23:23 04:24 WBC RBC 2.66 L Hgb 8.2 L Hct 24.0 L MCV MCHC RDW Plt Count 448 H Lymph % (Auto) [place] % (Auto) 12.7 H Lymph # [place] # 1.4 H Seg Neutrophils % 71.9 H Seg Neuts % (Manual) Lymphocytes % (Manual) Monocytes % (Manual) Nucleated RBC % Seg Neutrophils # Seg Neutrophils # Man Lymphocytes # (Manual) Monocytes # (Manual) POC ABG pH POC ABG pCO2 POC ABG pO2 VBG pH Sodium Potassium Chloride Carbon Dioxide BUN Creatinine Glucose POC Glucose 174 H 243 H Hemoglobin A1c Lactic Acid Calcium Phosphorus Magnesium Direct Bilirubin AST ALT C-Reactive Protein Total Protein Albumin Urine WBC (Auto) Salicylates Acetaminophen Heparin-induced Plt Ab 11/18/18 11/18/18 11/18/18 04:24 05:26 11:48 WBC RBC Hgb Hct MCV MCHC RDW Plt Count Lymph % (Auto) [place] % (Auto) Lymph # [place] # Seg Neutrophils % Seg Neuts % (Manual) Lymphocytes % (Manual) Monocytes % (Manual) Nucleated RBC % Seg Neutrophils # Seg Neutrophils # Man Lymphocytes # (Manual) Monocytes # (Manual) POC ABG pH POC ABG pCO2 POC ABG pO2 VBG pH Sodium 136 L Potassium Chloride 93.1 L Carbon Dioxide BUN 30 H Creatinine 5.9 H Glucose 211 H POC Glucose 205 H 162 H Hemoglobin A1c Lactic Acid Calcium Phosphorus Magnesium Direct Bilirubin AST ALT C-Reactive Protein Total Protein Albumin Urine WBC (Auto) Salicylates Acetaminophen Heparin-induced Plt Ab 11/18/18 11/18/18 11/18/18 12:01 19:37 23:21 WBC RBC Hgb Hct MCV MCHC RDW Plt Count Lymph % (Auto) [place] % (Auto) Lymph # [place] # Seg Neutrophils % Seg Neuts % (Manual) Lymphocytes % (Manual) Monocytes % (Manual) Nucleated RBC % Seg Neutrophils # Seg Neutrophils # Man Lymphocytes # (Manual) Monocytes # (Manual) POC ABG pH POC ABG pCO2 POC ABG pO2 VBG pH Sodium Potassium Chloride Carbon Dioxide BUN Creatinine Glucose POC Glucose 207 H 245 H Hemoglobin A1c Lactic Acid Calcium Phosphorus Magnesium Direct Bilirubin AST ALT C-Reactive Protein Total Protein Albumin Urine WBC (Auto) > 182.0 H Salicylates Acetaminophen Heparin-induced Plt Ab 11/19/18 11/19/18 11/19/18 04:24 05:21 12:01 WBC RBC Hgb Hct MCV MCHC RDW Plt Count Lymph % (Auto) [place] % (Auto) Lymph # [place] # Seg Neutrophils % Seg Neuts % (Manual) Lymphocytes % (Manual) Monocytes % (Manual) Nucleated RBC % Seg Neutrophils # Seg Neutrophils # Man Lymphocytes # (Manual) Monocytes # (Manual) POC ABG pH POC ABG pCO2 POC ABG pO2 VBG pH Sodium 134 L Potassium 5.4 H Chloride 89.8 L Carbon Dioxide BUN 54 H Creatinine 8.0 H Glucose 240 H POC Glucose 234 H 179 H Hemoglobin A1c Lactic Acid Calcium Phosphorus Magnesium Direct Bilirubin AST ALT C-Reactive Protein Total Protein Albumin Urine WBC (Auto) Salicylates Acetaminophen Heparin-induced Plt Ab 11/19/18 11/19/18 11/19/18 12:41 17:32 21:53 WBC 13.7 H RBC 2.73 L Hgb 8.3 L Hct 24.9 L MCV MCHC RDW Plt Count 479 H Lymph % (Auto) [place] % (Auto) Lymph # [place] # Seg Neutrophils % Seg Neuts % (Manual) Lymphocytes % (Manual) Monocytes % (Manual) Nucleated RBC % Seg Neutrophils # Seg Neutrophils # Man Lymphocytes # (Manual) Monocytes # (Manual) POC ABG pH POC ABG pCO2 POC ABG pO2 VBG pH Sodium Potassium Chloride Carbon Dioxide BUN Creatinine Glucose POC Glucose 317 H 421 H Hemoglobin A1c Lactic Acid Calcium Phosphorus Magnesium Direct Bilirubin AST ALT C-Reactive Protein Total Protein Albumin Urine WBC (Auto) Salicylates Acetaminophen Heparin-induced Plt Ab 11/19/18 11/20/18 11/20/18 23:16 06:03 10:25 WBC 11.9 H RBC 2.58 L Hgb 7.8 L Hct 23.1 L MCV MCHC RDW Plt Count 444 H Lymph % (Auto) [place] % (Auto) Lymph # [place] # Seg Neutrophils % Seg Neuts % (Manual) Lymphocytes % (Manual) Monocytes % (Manual) Nucleated RBC % Seg Neutrophils # Seg Neutrophils # Man Lymphocytes # (Manual) Monocytes # (Manual) POC ABG pH POC ABG pCO2 POC ABG pO2 VBG pH Sodium Potassium Chloride Carbon Dioxide BUN Creatinine Glucose POC Glucose 396 H 294 H Hemoglobin A1c Lactic Acid Calcium Phosphorus Magnesium Direct Bilirubin AST ALT C-Reactive Protein Total Protein Albumin Urine WBC (Auto) Salicylates Acetaminophen Heparin-induced Plt Ab 11/20/18 11/20/18 11/20/18 10:25 12:39 16:34 WBC RBC Hgb Hct MCV MCHC RDW Plt Count Lymph % (Auto) [place] % (Auto) Lymph # [place] # Seg Neutrophils % Seg Neuts % (Manual) Lymphocytes % (Manual) Monocytes % (Manual) Nucleated RBC % Seg Neutrophils # Seg Neutrophils # Man Lymphocytes # (Manual) Monocytes # (Manual) POC ABG pH POC ABG pCO2 POC ABG pO2 VBG pH Sodium 135 L Potassium 6.1 H* 5.1 H Chloride 89.8 L Carbon Dioxide BUN 55 H Creatinine 8.2 H Glucose 302 H POC Glucose 245 H Hemoglobin A1c Lactic Acid Calcium Phosphorus Magnesium Direct Bilirubin AST ALT C-Reactive Protein Total Protein Albumin Urine WBC (Auto) Salicylates Acetaminophen Heparin-induced Plt Ab 11/20/18 11/20/18 11/20/18 17:45 18:16 23:12 WBC RBC Hgb Hct MCV MCHC RDW Plt Count Lymph % (Auto) [place] % (Auto) Lymph # [place] # Seg Neutrophils % Seg Neuts % (Manual) Lymphocytes % (Manual) Monocytes % (Manual) Nucleated RBC % Seg Neutrophils # Seg Neutrophils # Man Lymphocytes # (Manual) Monocytes # (Manual) POC ABG pH POC ABG pCO2 POC ABG pO2 VBG pH Sodium Potassium 5.2 H Chloride 90.2 L Carbon Dioxide BUN 60 H Creatinine 8.9 H Glucose 217 H POC Glucose 211 H 320 H Hemoglobin A1c Lactic Acid Calcium Phosphorus Magnesium Direct Bilirubin AST ALT C-Reactive Protein Total Protein Albumin Urine WBC (Auto) Salicylates Acetaminophen Heparin-induced Plt Ab 11/21/18 11/21/18 11/21/18 04:44 04:44 05:32 WBC RBC 2.51 L Hgb 7.8 L Hct 22.3 L MCV MCHC 35 H RDW Plt Count Lymph % (Auto) [place] % (Auto) 9.5 H Lymph # [place] # 1.0 H Seg Neutrophils % 72.3 H Seg Neuts % (Manual) Lymphocytes % (Manual) Monocytes % (Manual) Nucleated RBC % Seg Neutrophils # Seg Neutrophils # Man Lymphocytes # (Manual) Monocytes # (Manual) POC ABG pH POC ABG pCO2 POC ABG pO2 VBG pH Sodium Potassium Chloride 92.7 L Carbon Dioxide BUN 36 H Creatinine 5.9 H Glucose 209 H POC Glucose 203 H Hemoglobin A1c Lactic Acid Calcium Phosphorus 5.50 H Magnesium Direct Bilirubin AST ALT C-Reactive Protein Total Protein Albumin Urine WBC (Auto) Salicylates Acetaminophen Heparin-induced Plt Ab Chest x-ray: image reviewed Allied health notes reviewed: RT (Daily weaning trials as tolerated)
[2018-11-21] MEDS: LOPRESSOR PO SCH ×4 (08:00→21:23)
[2018-11-21] MEDS: APRESOLINE IV PRN (08:11)
[2018-11-21] MEDS: PROVIGIL PO SCH (09:26)
[2018-11-21] MEDS: KEPPRA PO SCH ×2 (09:26→21:24)
[2018-11-21] MEDS: ELIQUIS FEEDTUBE SCH ×2 (09:27→21:24)
[2018-11-21] MEDS: FLOMAX PO SCH (10:51)
[2018-11-21] MEDS: PREVACID SOLUTAB FEEDTUBE SCH ×2 (10:52→21:23)
[2018-11-21] MEDS: SODIUM CHLORIDE FLUSH SYRINGE 10 ML IV SCH ×3 (10:52→21:25)
--- NOTE | 2018-11-21 13:00 | Progress Note ---
Assessment and Plan /Severe hyperkalemia, resolved - s/p Kayexalate with PEG tube, bicarbonate, calcium gluconate, insulin and D50 - Continue to monitor potassium level / Febrile illness with UTI and sepsis - spiked fever on 11/18, urine cx showing gm negative rods - Started on cefepime, consulted ID, follow final cx /S/P Cardiopulmonary Arrest- Possibly from renal failure with severe DKA and underlying CHF 2d echo showed Ef 30-35% cont ventilatory support, nebulizers, monitor ins/os /Anoxic Encephalopathy; from cardiac arrest neurology following, supportive care Poor prognosis, follow EEG /-Acute Hypoxic Respiratory failure; on ventilatory support failed to extubate s/p trach and PEG on 11/19/ /-Accelerated hypertension; improved Continue current meds with PEG tube, IV labetalol as needed / DKA-corrected; uncontrolled blood sugars, a1c 10.1 Accu-Chek sliding scale coverage and ADA diet, on 70/30 insulin, adjust the dose Dose as needed / SIRS, POA, likely from DKA and renal failure. 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 closely monitor platelets /-Seizure Disorder; seizure precautions cont Antiepileptic medications, neurology following, EEG findings noted /-Acute Kidney Injury secondary to ischemic ATN from hypotension, Hemodialysis per schedule nephrology following /-Cardiogenic Shock; improved /-Anemia of chronic disease; monitor H&H and transfuse as needed /-Severe malnutrition/nutritional supplements, nutrition consult; /-PAD; no statin for abnormal liver function /-Shock Liver; with transaminitis, trending down, cont to monitor, supportive care /CHF with EF 30-35% - monitor volume status, cardiology following --DVT prophylaxis; SCDs --Full CODE STATUS Very poor prognosis. Plan of care is reviewed with the patient's mother in detail Critical care time 34 minutes Disposition : will need placement Brief History 42 YO Male with ESRD on HD, HTN, DM, PAD, Nicotine Dependence presents to ED for evaluation. As per family, the patient was in his usual state of health around bedtime at 2200hrs. Pt was found down and unresponsive by family the next morning. EMS notified, and upon arrival the patient was found to be in distress. Pt Intubated and placed on vent support. Pt transported to [facility]. Pt seen and evaluated in ED and found to have STEMI, Acute on Chronic Renal Failure, Acidosis, Acute Respiratory Failure, Sepsis, and DKA. Pt experienced cardiac arrest in ED and was treated IAW ACLS protocol with return of perfusing cardiac rhythm. Pt found to have signs of Anoxic Brain Injury. Pt admitted to ICU and initiated on sepsis protocol and treated with IVF resuscitation therapy, IV pressor support. Pt has poor prognosis. Neurology , Cardiology ,pulm and Nephrology are following,receiving HD per nephrology, Vent dependent with poor prognosis, s/p Trach and PEG and placement 11/19. need placement Hospitalist Physical General appearance: Present: no acute distress, well-nourished, other ( on vent) - EENT Eyes: Present: PERRL - Neck Neck: Present: supple, normal ROM, trach in place - Respiratory Respiratory effort: normal Respiratory: bilateral: diminished, rhonchi, negative: rales, wheezing - Cardiovascular Rhythm: regular Heart Sounds: Present: S1 & S2 - Extremities Extremities: no ischemia, No edema - Abdominal General gastrointestinal: soft, non-tender, non-distended, normal bowel sounds, hypoactive bowel sounds - Integumentary Integumentary: Present: clear, warm - Psychiatric Psychiatric: other (on vent) - Neurologic Neurologic: other (on vent) With trach Subjective Date of service: 11/21/18 Principal diagnosis: Ac hypoxemic resp failure; DKA; Severe sepsis with shock; ESRD on dialysis Interval history: Patient seen and examined tolerating TF still having low-high grade temp Objective - Constitutional Vitals: Vital Signs - 12hr 11/21/18 11/21/18 11/21/18 01:30 02:00 02:30 Temperature Pulse Rate 109 H 109 H 106 H Pulse Rate [ From Monitor] Respiratory 20 20 19 Rate Blood Pressure 139/82 146/75 138/75 O2 Sat by Pulse 100 99 100 Oximetry O2 Sat by Pulse Oximetry [ Assessment] 11/21/18 11/21/18 11/21/18 03:00 03:30 03:37 Temperature Pulse Rate 105 H 106 H Pulse Rate [ From Monitor] Respiratory 20 19 Rate Blood Pressure 132/73 141/81 O2 Sat by Pulse 100 100 Oximetry O2 Sat by Pulse 107 H Oximetry [ Assessment] 11/21/18 11/21/18 11/21/18 03:40 04:00 04:30 Temperature 99.7 F H Pulse Rate 107 H 107 H 110 H Pulse Rate [ 102 H From Monitor] Respiratory 20 20 Rate Blood Pressure 140/80 131/72 138/78 O2 Sat by Pulse 100 100 100 Oximetry O2 Sat by Pulse Oximetry [ Assessment] 11/21/18 11/21/18 11/21/18 05:00 05:30 06:00 Temperature Pulse Rate 106 H 107 H 107 H Pulse Rate [ From Monitor] Respiratory 20 20 20 Rate Blood Pressure 133/72 132/76 132/76 O2 Sat by Pulse 100 100 100 Oximetry O2 Sat by Pulse Oximetry [ Assessment] 11/21/18 11/21/18 11/21/18 06:30 06:43 07:00 Temperature Pulse Rate 110 H 106 H 109 H Pulse Rate [ From Monitor] Respiratory 20 20 Rate Blood Pressure 139/81 139/81 137/75 O2 Sat by Pulse 100 99 Oximetry O2 Sat by Pulse Oximetry [ Assessment] 11/21/18 11/21/18 11/21/18 07:30 07:35 07:41 Temperature Pulse Rate 107 H 109 H Pulse Rate [ From Monitor] Respiratory 20 Rate Blood Pressure 129/74 O2 Sat by Pulse 99 99 Oximetry O2 Sat by Pulse 111 H Oximetry [ Assessment] 11/21/18 11/21/18 11/21/18 07:50 08:00 08:11 Temperature 99.6 F Pulse Rate 108 H 108 H Pulse Rate [ 110 H From Monitor] Respiratory 26 H Rate Blood Pressure 173/86 192/84 O2 Sat by Pulse 100 100 Oximetry O2 Sat by Pulse Oximetry [ Assessment] 11/21/18 11/21/18 11/21/18 08:30 09:00 09:26 Temperature Pulse Rate 110 H 110 H 110 H Pulse Rate [ From Monitor] Respiratory 19 27 H Rate Blood Pressure 155/77 157/78 148/80 O2 Sat by Pulse 100 100 Oximetry O2 Sat by Pulse Oximetry [ Assessment] 11/21/18 11/21/18 11/21/18 09:30 10:00 10:30 Temperature Pulse Rate 110 H 100 H 100 H Pulse Rate [ From Monitor] Respiratory 30 H 34 H 31 H Rate Blood Pressure 152/76 147/81 147/75 O2 Sat by Pulse 100 99 100 Oximetry O2 Sat by Pulse Oximetry [ Assessment] 11/21/18 11/21/18 11/21/18 11:00 11:30 12:00 Temperature Pulse Rate 105 H 102 H Pulse Rate [ 103 H From Monitor] Respiratory 27 H 20 20 Rate Blood Pressure 145/77 127/70 O2 Sat by Pulse 97 100 100 Oximetry O2 Sat by Pulse Oximetry [ Assessment] - Labs CBC & Chem 7: 11/22/18 04:52 11/22/18 04:52 Labs: Abnormal lab results 11/20/18 11/20/18 11/20/18 Range/Units 16:34 17:45 18:16 RBC (3.65-5.03) M/mm3 Hgb (11.8-15.2) gm/dl Hct (35.5-45.6) % MCHC (32-34) % [place] % (Auto) (0.0-7.3) % [place] # (0.0-0.8) K/mm3 Seg Neutrophils % (40.0-70.0) % POC ABG pH (7.35-7.45) POC ABG pO2 (80-105) Potassium 5.1 H 5.2 H (3.6-5.0) mmol/L Chloride 90.2 L (98-107) mmol/L BUN 60 H (9-20) mg/dL Creatinine 8.9 H (0.8-1.5) mg/dL Glucose 217 H (75-100) mg/dL POC Glucose 211 H (70-105) Phosphorus (2.5-4.5) mg/dL 11/20/18 11/21/18 11/21/18 Range/Units 23:12 04:44 04:44 RBC 2.51 L (3.65-5.03) M/mm3 Hgb 7.8 L (11.8-15.2) gm/dl Hct 22.3 L (35.5-45.6) % MCHC 35 H (32-34) % [place] % (Auto) 9.5 H (0.0-7.3) % [place] # 1.0 H (0.0-0.8) K/mm3 Seg Neutrophils % 72.3 H (40.0-70.0) % POC ABG pH (7.35-7.45) POC ABG pO2 (80-105) Potassium (3.6-5.0) mmol/L Chloride 92.7 L (98-107) mmol/L BUN 36 H (9-20) mg/dL Creatinine 5.9 H (0.8-1.5) mg/dL Glucose 209 H (75-100) mg/dL POC Glucose 320 H (70-105) Phosphorus 5.50 H (2.5-4.5) mg/dL 11/21/18 11/21/18 11/21/18 Range/Units 05:32 10:45 12:18 RBC (3.65-5.03) M/mm3 Hgb (11.8-15.2) gm/dl Hct (35.5-45.6) % MCHC (32-34) % [place] % (Auto) (0.0-7.3) % [place] # (0.0-0.8) K/mm3 Seg Neutrophils % (40.0-70.0) % POC ABG pH 7.473 H (7.35-7.45) POC ABG pO2 121 H (80-105) Potassium (3.6-5.0) mmol/L Chloride (98-107) mmol/L BUN (9-20) mg/dL Creatinine (0.8-1.5) mg/dL Glucose (75-100) mg/dL POC Glucose 203 H 149 H (70-105) Phosphorus (2.5-4.5) mg/dL
--- NOTE | 2018-11-21 13:57 | Progress Note ---
Assessment and Plan Severe renal failure due to GENEVIEVE on CKD, now ESRD on HD S/p High Anion Gap Metabolic Acidosis with elevated lactic acidosis with DKA: S/p Hyperkalemia: S/p Hyperphosphatemia: Hypernatremia: - S/p HD yesterday for UF and clearance, UF removed 2 liters - HD again today for UF and clearance - Assess dialysis needs daily - Renally dose medications - Avoid Nephrotoxic agents - Strict intake and output - Renal plan d/w Dr Bojorquez S/p Cardiopulmonary arrest. STEMI: Acute Hypoxic respiratory failure: -S/p CPR and ACLS protocol -Now off pressor support -Cardiology on board -On ventilator via Trach. S/p Diabetic Ketoacidosis: Diabetes Mellitus: - S/p insulin drip - On SQ insulin - As per primary team Acute Encephalopathy History of Seizure: -On IV Keppra -As per Neurology Subjective Date of service: 11/21/18 Principal diagnosis: Ac hypoxemic resp failure; DKA; Severe sepsis with shock; ESRD on dialysis Interval history: Pt seen in ICU, trach on ventilator, no acute distress. No family at bedside Objective - Vital Signs Vital signs: Vital Signs - 12hr 11/21/18 11/21/18 11/21/18 02:00 02:30 03:00 Temperature Pulse Rate 109 H 106 H 105 H Pulse Rate [ From Monitor] Respiratory 20 19 20 Rate Blood Pressure 146/75 138/75 132/73 O2 Sat by Pulse 99 100 100 Oximetry O2 Sat by Pulse Oximetry [ Assessment] 11/21/18 11/21/18 11/21/18 03:30 03:37 03:40 Temperature Pulse Rate 106 H 107 H Pulse Rate [ From Monitor] Respiratory 19 Rate Blood Pressure 141/81 140/80 O2 Sat by Pulse 100 100 Oximetry O2 Sat by Pulse 107 H Oximetry [ Assessment] 11/21/18 11/21/18 11/21/18 04:00 04:30 05:00 Temperature 99.7 F H Pulse Rate 107 H 110 H 106 H Pulse Rate [ 102 H From Monitor] Respiratory 20 20 20 Rate Blood Pressure 131/72 138/78 133/72 O2 Sat by Pulse 100 100 100 Oximetry O2 Sat by Pulse Oximetry [ Assessment] 11/21/18 11/21/18 11/21/18 05:30 06:00 06:30 Temperature Pulse Rate 107 H 107 H 110 H Pulse Rate [ From Monitor] Respiratory 20 20 20 Rate Blood Pressure 132/76 132/76 139/81 O2 Sat by Pulse 100 100 100 Oximetry O2 Sat by Pulse Oximetry [ Assessment] 11/21/18 11/21/18 11/21/18 06:43 07:00 07:30 Temperature Pulse Rate 106 H 109 H 107 H Pulse Rate [ From Monitor] Respiratory 20 20 Rate Blood Pressure 139/81 137/75 129/74 O2 Sat by Pulse 99 99 Oximetry O2 Sat by Pulse Oximetry [ Assessment] 11/21/18 11/21/18 11/21/18 07:35 07:41 07:50 Temperature Pulse Rate 109 H Pulse Rate [ From Monitor] Respiratory Rate Blood Pressure O2 Sat by Pulse 99 100 Oximetry O2 Sat by Pulse 111 H Oximetry [ Assessment] 11/21/18 11/21/18 11/21/18 08:00 08:11 08:30 Temperature 99.6 F Pulse Rate 108 H 108 H 110 H Pulse Rate [ 110 H From Monitor] Respiratory 26 H 19 Rate Blood Pressure 173/86 192/84 155/77 O2 Sat by Pulse 100 100 Oximetry O2 Sat by Pulse Oximetry [ Assessment] 11/21/18 11/21/18 11/21/18 09:00 09:26 09:30 Temperature Pulse Rate 110 H 110 H 110 H Pulse Rate [ From Monitor] Respiratory 27 H 30 H Rate Blood Pressure 157/78 148/80 152/76 O2 Sat by Pulse 100 100 Oximetry O2 Sat by Pulse Oximetry [ Assessment] 11/21/18 11/21/18 11/21/18 10:00 10:30 11:00 Temperature Pulse Rate 100 H 100 H 105 H Pulse Rate [ From Monitor] Respiratory 34 H 31 H 27 H Rate Blood Pressure 147/81 147/75 145/77 O2 Sat by Pulse 99 100 97 Oximetry O2 Sat by Pulse Oximetry [ Assessment] 11/21/18 11/21/18 11/21/18 11:30 12:00 12:30 Temperature 100.2 F H Pulse Rate 102 H 102 H 101 H Pulse Rate [ 103 H From Monitor] Respiratory 20 20 20 Rate Blood Pressure 127/70 126/68 129/72 O2 Sat by Pulse 100 100 100 Oximetry O2 Sat by Pulse Oximetry [ Assessment] 11/21/18 13:00 Temperature Pulse Rate 103 H Pulse Rate [ From Monitor] Respiratory 20 Rate Blood Pressure 126/70 O2 Sat by Pulse 100 Oximetry O2 Sat by Pulse Oximetry [ Assessment] - General Appearance General appearance: other (on ventilator) EENT: ATNC Neck: no JVD Respiratory: Present: Decreased Breath Sounds (trach in place, on ventilator) Cardiology: S1S2, other (ACCESS: Left AVF + thrill and bruit noted) Gastrointestinal: normoactive bowel sounds (PEG tube ) Integumentary: warm and dry Neurologic: other (pt doesn't follow commands) Musculoskeletal: other (trace edema to BLE) Psychiatric: other (unable to assess) - Lab 11/21/18 04:44 11/21/18 04:44 Most recent lab results Calcium 9.4 mg/dL (8.4-10.2) 11/21/18 04:44 Phosphorus 5.50 mg/dL (2.5-4.5) H 11/21/18 04:44 Magnesium 2.40 mg/dL (1.7-2.3) H 11/17/18 04:45 Medications & Allergies - Medications Allergies/Adverse Reactions: Allergies No Known Allergies Allergy (Verified 03/17/18 11:54) Home Medications: Home Medications Medication Instructions Recorded Confirmed Last Taken Type Esomeprazole Magnesium [NexIUM] 20 mg PO QDAY #30 suspdr.pkt 03/17/18 11/07/18 Unknown Rx HYDROcodone/APAP 5-325 [[place] 1 each PO Q6HR PRN #15 tablet 03/17/18 11/07/18 Unknown Rx 5/325] Metoclopramide [Reglan] 10 mg PO TID #21 tab 03/17/18 11/07/18 Unknown Rx Ondansetron [Zofran Odt] 4 mg PO Q4HR PRN #20 tab.rapdis 03/17/18 11/07/18 Unknown Rx Active Medications: Generic Name Dose Route Start Last Admin Trade Name Freq PRN Reason Stop Dose Admin Acetaminophen 650 mg 11/06/18 22:22 11/18/18 11:54 Tylenol FEEDTUBE 650 mg Q6H PRN Administration Fever >101 Lipase/Protease/Amylase 1 each 11/08/18 18:38 Pancreclara [place] 10,500 Unit FEEDTUBE PRN PRN For Clogged Feeding Tube Apixaban 2.5 mg 11/20/18 22:00 11/21/18 09:27 Eliquis FEEDTUBE 2.5 mg BID MARIAJOSE Administration Chlorpromazine HCl 10 mg 11/07/18 08:07 11/18/18 07:58 Thorazine PO 10 mg Q6H PRN Administration Hiccups Clonazepam 0.5 mg 11/12/18 16:49 11/13/18 23:10 Klonopin PO 0.5 mg Q12H PRN Administration myoclonic jerks Dextrose 50 ml 11/07/18 16:46 11/10/18 23:43 D50w (25gm) Syringe IV 50 ml PRN PRN Administration Hypoglycemia Epoetin Enoc 20,000 unit 11/18/18 13:46 11/20/18 21:06 Procrit IV 20,000 unit MARY PRN Administration hemodialysis Fentanyl 50 mcg 11/06/18 08:37 Sublimaze IV Q10MIN PRN ANALGESIA Hydralazine HCl 10 mg 11/08/18 00:56 11/21/18 08:11 Apresoline IV 10 mg Q4H PRN Administration Hypertension Hydralazine HCl 50 mg 11/14/18 09:16 11/21/18 06:43 Apresoline PO 50 mg Q8HR MARIAJOSE Administration Hydrophilic Ointment 1 applic 11/06/18 08:26 11/10/18 19:52 Vaseline Lip Therapy TP 1 applic Q2HR PRN Administration Dry Lips Sodium Chloride 100 mls @ 999 mls/hr 11/14/18 11:33 Nacl 0.9% IV MARY PRN Hypotension Cefepime HCl 1 gm in 100 mls @ 200 mls/hr 11/19/18 18:00 11/20/18 20:00 Maxipime/Ns 1 Gm/100 Ml IV 200 mls/hr QPM MARIAJOSE Administration Protocol Insulin Human Isoph/Insulin Regular 36 unit 11/22/18 08:00 Humulin 70/30 SUB-Q QAMDIAB MARIAJOSE Insulin Human Isoph/Insulin Regular 40 unit 11/21/18 17:00 Humulin 70/30 SUB-Q QPMDIAB MARIAJOSE Insulin Human Regular 0 units 11/07/18 18:00 11/21/18 12:30 Humulin R SUB-Q Not Given Q6HR [facility] Protocol Labetalol HCl 10 mg 11/19/18 16:09 11/20/18 15:24 Normodyne IV 10 mg Q4H PRN Administration Hypertension Lansoprazole 30 mg 11/09/18 10:00 11/21/18 10:52 Prevacid Solutab FEEDTUBE 30 mg BID MARIAJOSE Administration Levetiracetam 750 mg 11/18/18 10:00 11/21/18 09:26 Keppra PO 750 mg BID MARIAJOSE Administration Lorazepam 2 mg 11/12/18 08:31 11/15/18 14:25 Ativan IV 2 mg Q4H PRN Administration Agitation Metoprolol Tartrate 50 mg 11/14/18 10:00 11/21/18 09:26 Lopressor PO 50 mg Q6H MARIAJOSE Administration Modafinil 200 mg 11/17/18 10:00 11/21/18 09:26 Provigil PO 200 mg QAM MARIAJOSE Administration Multi-Ingred Cream/Lotion/Oil/Oint 1 applic 11/06/18 08:26 Artificial Tears Ophth Oint OU Q4HR PRN Dry Eye(s) Simple Syrup 15 ml 11/08/18 18:38 Simple Syrup FEEDTUBE PRN PRN Hypoglycemia Simple Syrup 30 ml 11/08/18 18:38 Simple Syrup FEEDTUBE PRN PRN Hypoglycemia Sodium Bicarbonate 325 mg 11/08/18 18:38 Sodium Bicarbonate FEEDTUBE PRN PRN For Clogged Feeding Tube Sodium Chloride 10 ml 11/06/18 22:00 11/21/18 10:54 Sodium Chloride Flush Syringe 10 Ml IV 10 ml BID MARIAJOSE Administration Sodium Chloride 10 ml 11/06/18 12:42 11/13/18 10:30 Sodium Chloride Flush Syringe 10 Ml IV 10 ml PRN PRN Administration LINE FLUSH Tamsulosin HCl 0.4 mg 11/10/18 13:00 11/21/18 10:51 Flomax PO 0.4 mg QDAY MARIAJOSE Administration
[2018-11-21] MEDS: MAXIPIME/NS 1 GM/100 ML 1 GM/100 ML BAG IV SCH ×2 (18:26→19:49)
--- NOTE | 2018-11-22 03:48 | Progress Note ---
Assessment and Plan Acute hypoxemic respiratory failure, on mechanical ventilator support. s/p Tracheosotmy Oropharyngeal dysphagia, s/p PEG Diabetic ketoacidosis. Severe metabolic acidosis. Severe sepsis with shock. Acute encephalopathy that appears to be toxic metabolic. End-stage renal disease, on dialysis. Hyperkalemia at presentation. Anemia that is macrocytic. Elevated serum transaminases Hypernatremia, improved Lactic acidosis. - trach care, airway clearance, secretion mangment -Weaning per protocol, PSV trials -Start ATP trials as tolerated and per protocol -Discontinue fentanyl infusion and start prn intermittent analgesia -Adjust insulin therapy for better glycemic control -goal blood glucose of 140-180 mg/dL - continue to wean supplemental oxygen to keep O2 sats > 90% - continue bronchodilators with pulmonary hygiene per RT - Lung protective strategies - VAP bundle addressed - continue HD/UF as tolerated for toxin and volume clearance - continue to avoid nephrotoxic agents, adjust all medications for CrCL -Aspiration precautions, keep HOB >40 - Maintenance of sleep -wake cycle - Mobility protocol for pressure ulcer prevention - continue stress ulcer prophylaxis - Influenza and pneumonia vaccination per protocol PROGNOSIS: GUARDED CONDITION: CRITICAL CODE STATUS: FULL CODE Discussed care extensively with his mother and updated her Subjective Date of service: 11/22/18 Principal diagnosis: Ac hypoxemic resp failure; DKA; Severe sepsis with shock; ESRD on dialysis Interval history: Patient is seen today for: Acute hypoxemic respiratory failure on MVS; DKA; Severe metabolic acidosis; Severe sepsis with shock; Acute encephalopathy that appears to be toxic metabolic; ESRD on dialysis; DM II; Peripheral vascular disease. Seen and examined at bedside; 24hour events reviewed; nursing and respiratory care staff consulted; no adverse overnight events reported to me; remains on MVS; AMS is persistent, but opens eyes on verbal and tactile stimulation, s/p trach and PEG , mother at the bedside, tolerating PSV trials Objective Vital Signs - 12hr 11/21/18 11/21/18 11/21/18 16:00 16:15 16:28 Temperature 101.1 F H Pulse Rate 110 H 112 H 120 H Pulse Rate [ 103 H From Monitor] Respiratory 19 Rate Blood Pressure 125/73 130/70 142/81 O2 Sat by Pulse 100 99 Oximetry O2 Sat by Pulse Oximetry [ Anterior Bilateral Throughout] 11/21/18 11/21/18 11/21/18 16:30 16:46 17:00 Temperature Pulse Rate 120 H 119 H 113 H Pulse Rate [ From Monitor] Respiratory 18 21 Rate Blood Pressure 142/81 121/67 128/69 O2 Sat by Pulse 99 100 Oximetry O2 Sat by Pulse Oximetry [ Anterior Bilateral Throughout] 11/21/18 11/21/18 11/21/18 17:15 17:30 17:36 Temperature Pulse Rate 123 H 111 H 111 H Pulse Rate [ From Monitor] Respiratory 22 Rate Blood Pressure 123/64 120/63 120/63 O2 Sat by Pulse 100 Oximetry O2 Sat by Pulse Oximetry [ Anterior Bilateral Throughout] 11/21/18 11/21/18 11/21/18 17:45 18:00 18:15 Temperature Pulse Rate 115 H 117 H 112 H Pulse Rate [ From Monitor] Respiratory 24 Rate Blood Pressure 122/67 117/75 121/71 O2 Sat by Pulse 100 Oximetry O2 Sat by Pulse Oximetry [ Anterior Bilateral Throughout] 11/21/18 11/21/18 11/21/18 18:30 18:40 19:00 Temperature Pulse Rate 112 H 110 H 116 H Pulse Rate [ From Monitor] Respiratory 22 21 Rate Blood Pressure 124/70 120/70 139/72 O2 Sat by Pulse 100 100 Oximetry O2 Sat by Pulse Oximetry [ Anterior Bilateral Throughout] 11/21/18 11/21/18 11/21/18 19:05 19:30 20:00 Temperature 101.1 F H 99.9 F H Pulse Rate 114 H 114 H 115 H Pulse Rate [ From Monitor] Respiratory 20 20 20 Rate Blood Pressure 139/72 131/71 142/65 O2 Sat by Pulse 100 100 Oximetry O2 Sat by Pulse 100 Oximetry [ Anterior Bilateral Throughout] 11/21/18 11/21/18 11/21/18 20:30 20:46 21:00 Temperature Pulse Rate 116 H 114 H 117 H Pulse Rate [ From Monitor] Respiratory 20 20 Rate Blood Pressure 139/74 138/72 141/78 O2 Sat by Pulse 99 99 99 Oximetry O2 Sat by Pulse Oximetry [ Anterior Bilateral Throughout] 11/21/18 11/21/18 11/21/18 21:23 21:24 21:30 Temperature Pulse Rate 116 H 116 H 118 H Pulse Rate [ From Monitor] Respiratory 11 L Rate Blood Pressure 143/80 143/80 144/79 O2 Sat by Pulse 99 Oximetry O2 Sat by Pulse Oximetry [ Anterior Bilateral Throughout] 06/11/21/18 11/21/18 22:00 22:30 23:00 Temperature Pulse Rate 115 H 113 H 111 H Pulse Rate [ From Monitor] Respiratory 26 H 22 20 Rate Blood Pressure 159/68 130/75 142/77 O2 Sat by Pulse 99 99 99 Oximetry O2 Sat by Pulse Oximetry [ Anterior Bilateral Throughout] 11/21/18 11/21/18 11/21/18 23:12 23:30 23:50 Temperature Pulse Rate 112 H 111 H 112 H Pulse Rate [ From Monitor] Respiratory 21 21 20 Rate Blood Pressure 142/77 142/77 128/69 O2 Sat by Pulse 99 99 99 Oximetry O2 Sat by Pulse Oximetry [ Anterior Bilateral Throughout] 11/22/18 11/22/18 00:00 00:20 Temperature 101.0 F H Pulse Rate 111 H 115 H Pulse Rate [ From Monitor] Respiratory 20 Rate Blood Pressure 130/71 129/82 O2 Sat by Pulse 99 100 Oximetry O2 Sat by Pulse Oximetry [ Anterior Bilateral Throughout] Constitutional: no acute distress, other (middle aged AAM, normocephalic and atraumatic on MVS s/p tracheostomy) Eyes: non-icteric ENT: oropharynx moist, other (s/p tracheostomy) Neck: supple, no lymphadenopathy, no JVD Effort: normal Ascultation: Bilateral: clear, diminished breath sounds, rhonchi Percussion: Bilateral: not dull Cardiovascular: regular rate and rhythm, other (S1,S2, no murmurs, gallops or rubs) Gastrointestinal: normoactive bowel sounds, soft, non-tender, non-distended Integumentary: rash Extremities: no cyanosis, pulses normal, no ischemia or petechiae, edema Neurologic: pupils equal and round (minimally reactive), unable to assess, other Psychiatric: other (unable to assess re: AMS) CBC and BMP: 11/26/18 04:34 11/26/18 04:34 ABG, PT/INR, D-dimer: ABG POC ABG pH 7.473 (7.35-7.45) H 11/21/18 10:45 POC ABG pCO2 45.0 (35-45) 11/21/18 10:45 POC ABG pO2 121 (80-105) H 11/21/18 10:45 POC ABG HCO3 33.0 (22-26 mml/L) 11/21/18 10:45 POC ABG Total CO2 34 (23-27mmol/L) 11/21/18 10:45 POC ABG O2 Sat 99 11/21/18 10:45 Abnormal lab findings: Abnormal Labs 11/06/18 11/06/18 11/06/18 08:22 09:02 09:02 WBC 20.1 H RBC 3.40 L Hgb 10.5 L Hct MCV 119 H MCHC 26 L RDW 15.7 H Plt Count Lymph % (Auto) [place] % (Auto) Lymph # [place] # Seg Neutrophils % 80.1 H Seg Neuts % (Manual) 76.0 H Lymphocytes % (Manual) 4.0 L Monocytes % (Manual) Nucleated RBC % 1.0 H Seg Neutrophils # 16.1 H Seg Neutrophils # Man 15.3 H Lymphocytes # (Manual) 0.8 L Monocytes # (Manual) POC ABG pH POC ABG pCO2 POC ABG pO2 VBG pH Sodium 129 L Potassium 7.7 H* Chloride 79.7 L Carbon Dioxide 4 L* BUN 93 H Creatinine 7.4 H Glucose 1469 H* POC Glucose > 500 H Hemoglobin A1c Lactic Acid Calcium Phosphorus Magnesium Direct Bilirubin AST 2679 H ALT 1175 H C-Reactive Protein Total Protein 6.1 L Albumin 2.9 L Urine WBC (Auto) Salicylates Acetaminophen Heparin-induced Plt Ab 11/06/18 11/06/18 11/06/18 09:02 09:02 09:02 WBC RBC Hgb Hct MCV MCHC RDW Plt Count Lymph % (Auto) [place] % (Auto) Lymph # [place] # Seg Neutrophils % Seg Neuts % (Manual) Lymphocytes % (Manual) Monocytes % (Manual) Nucleated RBC % Seg Neutrophils # Seg Neutrophils # Man Lymphocytes # (Manual) Monocytes # (Manual) POC ABG pH POC ABG pCO2 POC ABG pO2 VBG pH Sodium Potassium Chloride Carbon Dioxide BUN Creatinine Glucose POC Glucose Hemoglobin A1c Lactic Acid 9.40 H* Calcium Phosphorus Magnesium Direct Bilirubin AST ALT C-Reactive Protein Total Protein Albumin Urine WBC (Auto) Salicylates < 0.3 L Acetaminophen < 5.0 L Heparin-induced Plt Ab 11/06/18 11/06/18 11/06/18 09:03 10:19 10:19 WBC RBC Hgb Hct MCV MCHC RDW Plt Count Lymph % (Auto) [place] % (Auto) Lymph # [place] # Seg Neutrophils % Seg Neuts % (Manual) Lymphocytes % (Manual) Monocytes % (Manual) Nucleated RBC % Seg Neutrophils # Seg Neutrophils # Man Lymphocytes # (Manual) Monocytes # (Manual) POC ABG pH 6.841 L POC ABG pCO2 POC ABG pO2 VBG pH Sodium 131 L Potassium 8.9 H* Chloride 85.3 L Carbon Dioxide 6 L* BUN 90 H Creatinine 7.1 H Glucose 1353 H* POC Glucose Hemoglobin A1c Lactic Acid Calcium 7.8 L Phosphorus 14.50 H Magnesium 2.70 H Direct Bilirubin AST ALT C-Reactive Protein Total Protein Albumin Urine WBC (Auto) Salicylates Acetaminophen Heparin-induced Plt Ab 11/06/18 11/06/18 11/06/18 12:07 13:22 13:22 WBC RBC Hgb Hct MCV MCHC RDW Plt Count Lymph % (Auto) [place] % (Auto) Lymph # [place] # Seg Neutrophils % Seg Neuts % (Manual) Lymphocytes % (Manual) Monocytes % (Manual) Nucleated RBC % Seg Neutrophils # Seg Neutrophils # Man Lymphocytes # (Manual) Monocytes # (Manual) POC ABG pH POC ABG pCO2 POC ABG pO2 VBG pH 6.982 L* Sodium 135 L Potassium 7.0 H* D Chloride 88.4 L Carbon Dioxide 5 L* BUN 89 H Creatinine 7.2 H Glucose 1326 H* POC Glucose Hemoglobin A1c Lactic Acid 8.50 H* Calcium Phosphorus Magnesium Direct Bilirubin AST ALT C-Reactive Protein Total Protein Albumin Urine WBC (Auto) Salicylates Acetaminophen Heparin-induced Plt Ab 11/06/18 11/06/18 11/06/18 14:15 14:15 15:21 WBC RBC Hgb Hct MCV MCHC RDW Plt Count Lymph % (Auto) [place] % (Auto) Lymph # [place] # Seg Neutrophils % Seg Neuts % (Manual) Lymphocytes % (Manual) Monocytes % (Manual) Nucleated RBC % Seg Neutrophils # Seg Neutrophils # Man Lymphocytes # (Manual) Monocytes # (Manual) POC ABG pH POC ABG pCO2 POC ABG pO2 VBG pH Sodium Potassium 6.6 H* 6.0 H Chloride 95.3 L 93.3 L Carbon Dioxide 4 L* 6 L* BUN 83 H 91 H Creatinine 6.9 H 7.3 H Glucose 1205 H* 1174 H* POC Glucose Hemoglobin A1c Lactic Acid Calcium 8.2 L Phosphorus 13.00 H Magnesium 2.60 H Direct Bilirubin AST ALT C-Reactive Protein Total Protein Albumin Urine WBC (Auto) Salicylates Acetaminophen Heparin-induced Plt Ab 11/06/18 11/06/18 11/06/18 15:21 16:14 16:33 WBC RBC Hgb Hct MCV MCHC RDW Plt Count Lymph % (Auto) [place] % (Auto) Lymph # [place] # Seg Neutrophils % Seg Neuts % (Manual) Lymphocytes % (Manual) Monocytes % (Manual) Nucleated RBC % Seg Neutrophils # Seg Neutrophils # Man Lymphocytes # (Manual) Monocytes # (Manual) POC ABG pH 7.004 L POC ABG pCO2 33.0 L POC ABG pO2 178 H VBG pH Sodium Potassium Chloride Carbon Dioxide BUN Creatinine Glucose POC Glucose > 500 H Hemoglobin A1c Lactic Acid 7.60 H* Calcium Phosphorus Magnesium Direct Bilirubin AST ALT C-Reactive Protein Total Protein Albumin Urine WBC (Auto) Salicylates Acetaminophen Heparin-induced Plt Ab 11/06/18 11/06/18 11/06/18 17:34 19:30 19:30 WBC RBC Hgb Hct MCV MCHC RDW Plt Count Lymph % (Auto) [place] % (Auto) Lymph # [place] # Seg Neutrophils % Seg Neuts % (Manual) Lymphocytes % (Manual) Monocytes % (Manual) Nucleated RBC % Seg Neutrophils # Seg Neutrophils # Man Lymphocytes # (Manual) Monocytes # (Manual) POC ABG pH POC ABG pCO2 POC ABG pO2 VBG pH Sodium Potassium 5.5 H Chloride 97.4 L 97.7 L Carbon Dioxide 10 L 11 L BUN 88 H 87 H Creatinine 7.5 H 7.6 H Glucose 1054 H* 954 H* POC Glucose Hemoglobin A1c Lactic Acid Calcium 7.7 L 7.4 L Phosphorus Magnesium Direct Bilirubin AST ALT C-Reactive Protein 1.90 H Total Protein Albumin Urine WBC (Auto) Salicylates Acetaminophen Heparin-induced Plt Ab 11/06/18 11/06/18 11/06/18 20:31 20:40 20:40 WBC RBC Hgb Hct MCV MCHC RDW Plt Count Lymph % (Auto) [place] % (Auto) Lymph # [place] # Seg Neutrophils % Seg Neuts % (Manual) Lymphocytes % (Manual) Monocytes % (Manual) Nucleated RBC % Seg Neutrophils # Seg Neutrophils # Man Lymphocytes # (Manual) Monocytes # (Manual) POC ABG pH 7.245 L POC ABG pCO2 POC ABG pO2 132 H VBG pH Sodium Potassium Chloride Carbon Dioxide BUN Creatinine Glucose 907 H* POC Glucose Hemoglobin A1c Lactic Acid 4.40 H* Calcium Phosphorus Magnesium Direct Bilirubin AST ALT C-Reactive Protein Total Protein Albumin Urine WBC (Auto) Salicylates Acetaminophen Heparin-induced Plt Ab 11/06/18 11/06/18 11/06/18 22:05 22:40 23:35 WBC RBC Hgb Hct MCV MCHC RDW Plt Count Lymph % (Auto) [place] % (Auto) Lymph # [place] # Seg Neutrophils % Seg Neuts % (Manual) Lymphocytes % (Manual) Monocytes % (Manual) Nucleated RBC % Seg Neutrophils # Seg Neutrophils # Man Lymphocytes # (Manual) Monocytes # (Manual) POC ABG pH POC ABG pCO2 POC ABG pO2 VBG pH Sodium Potassium Chloride Carbon Dioxide 13 L BUN 86 H Creatinine 7.8 H Glucose 822 H* 726 H* POC Glucose Hemoglobin A1c Lactic Acid 3.40 H* Calcium 7.5 L Phosphorus Magnesium Direct Bilirubin AST ALT C-Reactive Protein Total Protein Albumin Urine WBC (Auto) Salicylates Acetaminophen Heparin-induced Plt Ab 11/07/18 11/07/18 11/07/18 01:25 01:26 03:15 WBC RBC Hgb Hct MCV MCHC RDW Plt Count Lymph % (Auto) [place] % (Auto) Lymph # [place] # Seg Neutrophils % Seg Neuts % (Manual) Lymphocytes % (Manual) Monocytes % (Manual) Nucleated RBC % Seg Neutrophils # Seg Neutrophils # Man Lymphocytes # (Manual) Monocytes # (Manual) POC ABG pH POC ABG pCO2 POC ABG pO2 VBG pH Sodium Potassium Chloride Carbon Dioxide BUN Creatinine Glucose 602 H* POC Glucose > 500 H > 500 H Hemoglobin A1c Lactic Acid Calcium Phosphorus Magnesium Direct Bilirubin AST ALT C-Reactive Protein Total Protein Albumin Urine WBC (Auto) Salicylates Acetaminophen Heparin-induced Plt Ab 11/07/18 11/07/18 11/07/18 03:20 04:32 04:47 WBC RBC Hgb Hct MCV MCHC RDW Plt Count Lymph % (Auto) [place] % (Auto) Lymph # [place] # Seg Neutrophils % Seg Neuts % (Manual) Lymphocytes % (Manual) Monocytes % (Manual) Nucleated RBC % Seg Neutrophils # Seg Neutrophils # Man Lymphocytes # (Manual) Monocytes # (Manual) POC ABG pH POC ABG pCO2 30.3 L POC ABG pO2 153 H VBG pH Sodium 149 H Potassium Chloride Carbon Dioxide 16 L BUN 86 H Creatinine 8.3 H Glucose 499.2 H POC Glucose 360 H Hemoglobin A1c Lactic Acid Calcium 7.6 L Phosphorus Magnesium Direct Bilirubin AST ALT C-Reactive Protein Total Protein Albumin Urine WBC (Auto) Salicylates Acetaminophen Heparin-induced Plt Ab 11/07/18 11/07/18 11/07/18 05:26 06:35 06:36 WBC RBC Hgb Hct MCV MCHC RDW Plt Count Lymph % (Auto) [place] % (Auto) Lymph # [place] # Seg Neutrophils % Seg Neuts % (Manual) Lymphocytes % (Manual) Monocytes % (Manual) Nucleated RBC % Seg Neutrophils # Seg Neutrophils # Man Lymphocytes # (Manual) Monocytes # (Manual) POC ABG pH POC ABG pCO2 POC ABG pO2 VBG pH Sodium 153 H Potassium 3.2 L Chloride 109.7 H Carbon Dioxide BUN 84 H Creatinine 8.6 H Glucose 249 H POC Glucose 341 H 274 H Hemoglobin A1c Lactic Acid Calcium 7.6 L Phosphorus Magnesium Direct Bilirubin AST ALT C-Reactive Protein Total Protein Albumin Urine WBC (Auto) Salicylates Acetaminophen Heparin-induced Plt Ab 11/07/18 11/07/18 11/07/18 07:33 09:00 09:52 WBC RBC Hgb Hct MCV MCHC RDW Plt Count Lymph % (Auto) [place] % (Auto) Lymph # [place] # Seg Neutrophils % Seg Neuts % (Manual) Lymphocytes % (Manual) Monocytes % (Manual) Nucleated RBC % Seg Neutrophils # Seg Neutrophils # Man Lymphocytes # (Manual) Monocytes # (Manual) POC ABG pH POC ABG pCO2 POC ABG pO2 VBG pH Sodium Potassium Chloride Carbon Dioxide BUN Creatinine Glucose POC Glucose 243 H 182 H 227 H Hemoglobin A1c Lactic Acid Calcium Phosphorus Magnesium Direct Bilirubin AST ALT C-Reactive Protein Total Protein Albumin Urine WBC (Auto) Salicylates Acetaminophen Heparin-induced Plt Ab 11/07/18 11/07/18 11/07/18 10:50 10:50 10:50 WBC 11.3 H RBC 2.85 L Hgb 8.7 L Hct 25.3 L D MCV MCHC RDW Plt Count Lymph % (Auto) 9.7 L [place] % (Auto) Lymph # 1.1 L [place] # Seg Neutrophils % 83.3 H Seg Neuts % (Manual) Lymphocytes % (Manual) Monocytes % (Manual) Nucleated RBC % Seg Neutrophils # 9.4 H Seg Neutrophils # Man Lymphocytes # (Manual) Monocytes # (Manual) POC ABG pH POC ABG pCO2 POC ABG pO2 VBG pH Sodium 154 H Potassium 3.2 L Chloride 110.2 H Carbon Dioxide BUN 82 H Creatinine 8.3 H Glucose 186 H POC Glucose 200 H Hemoglobin A1c Lactic Acid Calcium 7.3 L Phosphorus Magnesium Direct Bilirubin AST ALT C-Reactive Protein Total Protein Albumin Urine WBC (Auto) Salicylates Acetaminophen Heparin-induced Plt Ab 11/07/18 11/07/18 11/07/18 12:00 12:05 13:13 WBC RBC Hgb Hct MCV MCHC RDW Plt Count Lymph % (Auto) [place] % (Auto) Lymph # [place] # Seg Neutrophils % Seg Neuts % (Manual) Lymphocytes % (Manual) Monocytes % (Manual) Nucleated RBC % Seg Neutrophils # Seg Neutrophils # Man Lymphocytes # (Manual) Monocytes # (Manual) POC ABG pH POC ABG pCO2 POC ABG pO2 VBG pH Sodium Potassium Chloride Carbon Dioxide BUN Creatinine Glucose POC Glucose 179 H 190 H Hemoglobin A1c Lactic Acid 2.50 H* Calcium Phosphorus Magnesium Direct Bilirubin AST ALT C-Reactive Protein Total Protein Albumin Urine WBC (Auto) Salicylates Acetaminophen Heparin-induced Plt Ab 11/07/18 11/07/18 11/07/18 13:20 14:05 15:18 WBC RBC Hgb Hct MCV MCHC RDW Plt Count Lymph % (Auto) [place] % (Auto) Lymph # [place] # Seg Neutrophils % Seg Neuts % (Manual) Lymphocytes % (Manual) Monocytes % (Manual) Nucleated RBC % Seg Neutrophils # Seg Neutrophils # Man Lymphocytes # (Manual) Monocytes # (Manual) POC ABG pH POC ABG pCO2 POC ABG pO2 VBG pH Sodium Potassium 3.1 L Chloride Carbon Dioxide BUN 50 H Creatinine 5.0 H Glucose 176 H POC Glucose 189 H 215 H Hemoglobin A1c Lactic Acid Calcium 7.4 L Phosphorus Magnesium Direct Bilirubin AST ALT C-Reactive Protein Total Protein Albumin Urine WBC (Auto) Salicylates Acetaminophen Heparin-induced Plt Ab 11/07/18 11/07/18 11/07/18 16:25 17:37 23:23 WBC RBC Hgb Hct MCV MCHC RDW Plt Count Lymph % (Auto) [place] % (Auto) Lymph # [place] # Seg Neutrophils % Seg Neuts % (Manual) Lymphocytes % (Manual) Monocytes % (Manual) Nucleated RBC % Seg Neutrophils # Seg Neutrophils # Man Lymphocytes # (Manual) Monocytes # (Manual) POC ABG pH POC ABG pCO2 POC ABG pO2 VBG pH Sodium Potassium Chloride Carbon Dioxide BUN Creatinine Glucose POC Glucose 180 H 215 H 234 H Hemoglobin A1c Lactic Acid Calcium Phosphorus Magnesium Direct Bilirubin AST ALT C-Reactive Protein Total Protein Albumin Urine WBC (Auto) Salicylates Acetaminophen Heparin-induced Plt Ab 11/08/18 11/08/18 11/08/18 04:17 04:23 04:23 WBC RBC 2.98 L Hgb 9.3 L Hct 26.7 L MCV MCHC 35 H RDW Plt Count 130 L Lymph % (Auto) [place] % (Auto) Lymph # [place] # Seg Neutrophils % 80.3 H Seg Neuts % (Manual) Lymphocytes % (Manual) Monocytes % (Manual) Nucleated RBC % Seg Neutrophils # 7.8 H Seg Neutrophils # Man Lymphocytes # (Manual) Monocytes # (Manual) POC ABG pH 7.520 H POC ABG pCO2 POC ABG pO2 111 H VBG pH Sodium Potassium 3.0 L Chloride Carbon Dioxide BUN 44 H Creatinine 6.3 H Glucose 245 H POC Glucose Hemoglobin A1c Lactic Acid Calcium 7.3 L Phosphorus Magnesium Direct Bilirubin AST ALT C-Reactive Protein Total Protein Albumin Urine WBC (Auto) Salicylates Acetaminophen Heparin-induced Plt Ab 11/08/18 11/08/18 11/08/18 05:19 08:00 08:00 WBC RBC Hgb Hct MCV MCHC RDW Plt Count Lymph % (Auto) [place] % (Auto) Lymph # [place] # Seg Neutrophils % Seg Neuts % (Manual) Lymphocytes % (Manual) Monocytes % (Manual) Nucleated RBC % Seg Neutrophils # Seg Neutrophils # Man Lymphocytes # (Manual) Monocytes # (Manual) POC ABG pH POC ABG pCO2 POC ABG pO2 VBG pH Sodium Potassium Chloride Carbon Dioxide BUN Creatinine Glucose POC Glucose 253 H Hemoglobin A1c Lactic Acid 2.70 H* Calcium Phosphorus Magnesium Direct Bilirubin 0.3 H AST 932 H ALT 582 H C-Reactive Protein Total Protein 5.4 L Albumin 2.6 L Urine WBC (Auto) Salicylates Acetaminophen Heparin-induced Plt Ab 11/08/18 11/08/18 11/08/18 11:36 17:51 21:59 WBC RBC Hgb Hct MCV MCHC RDW Plt Count Lymph % (Auto) [place] % (Auto) Lymph # [place] # Seg Neutrophils % Seg Neuts % (Manual) Lymphocytes % (Manual) Monocytes % (Manual) Nucleated RBC % Seg Neutrophils # Seg Neutrophils # Man Lymphocytes # (Manual) Monocytes # (Manual) POC ABG pH 7.459 H POC ABG pCO2 POC ABG pO2 108 H VBG pH Sodium Potassium Chloride Carbon Dioxide BUN Creatinine Glucose POC Glucose 197 H Hemoglobin A1c Lactic Acid Calcium Phosphorus Magnesium Direct Bilirubin AST ALT C-Reactive Protein Total Protein Albumin Urine WBC (Auto) Salicylates Acetaminophen Heparin-induced Plt Ab Positive H 11/08/18 11/09/18 11/09/18 23:28 00:39 02:20 WBC RBC Hgb Hct MCV MCHC RDW Plt Count Lymph % (Auto) [place] % (Auto) Lymph # [place] # Seg Neutrophils % Seg Neuts % (Manual) Lymphocytes % (Manual) Monocytes % (Manual) Nucleated RBC % Seg Neutrophils # Seg Neutrophils # Man Lymphocytes # (Manual) Monocytes # (Manual) POC ABG pH POC ABG pCO2 POC ABG pO2 VBG pH Sodium Potassium Chloride Carbon Dioxide BUN Creatinine Glucose POC Glucose 418 H 471 H 254 H Hemoglobin A1c Lactic Acid Calcium Phosphorus Magnesium Direct Bilirubin AST ALT C-Reactive Protein Total Protein Albumin Urine WBC (Auto) Salicylates Acetaminophen Heparin-induced Plt Ab 11/09/18 11/09/18 11/09/18 03:48 06:02 06:02 WBC RBC 2.95 L Hgb 9.2 L Hct 26.7 L MCV MCHC RDW Plt Count 101 L Lymph % (Auto) [place] % (Auto) Lymph # [place] # Seg Neutrophils % Seg Neuts % (Manual) Lymphocytes % (Manual) Monocytes % (Manual) Nucleated RBC % Seg Neutrophils # Seg Neutrophils # Man Lymphocytes # (Manual) Monocytes # (Manual) POC ABG pH POC ABG pCO2 POC ABG pO2 108 H VBG pH Sodium 150 H Potassium Chloride 108.3 H Carbon Dioxide BUN 44 H Creatinine 7.7 H Glucose 102 H POC Glucose Hemoglobin A1c Lactic Acid Calcium 7.2 L Phosphorus Magnesium Direct Bilirubin AST 554 H ALT 461 H C-Reactive Protein Total Protein 5.1 L Albumin 2.6 L Urine WBC (Auto) Salicylates Acetaminophen Heparin-induced Plt Ab 11/09/18 11/09/18 11/09/18 17:49 18:49 23:32 WBC RBC Hgb Hct MCV MCHC RDW Plt Count Lymph % (Auto) [place] % (Auto) Lymph # [place] # Seg Neutrophils % Seg Neuts % (Manual) Lymphocytes % (Manual) Monocytes % (Manual) Nucleated RBC % Seg Neutrophils # Seg Neutrophils # Man Lymphocytes # (Manual) Monocytes # (Manual) POC ABG pH POC ABG pCO2 46.2 H POC ABG pO2 VBG pH Sodium Potassium Chloride Carbon Dioxide BUN Creatinine Glucose POC Glucose 184 H 150 H Hemoglobin A1c Lactic Acid Calcium Phosphorus Magnesium Direct Bilirubin AST ALT C-Reactive Protein Total Protein Albumin Urine WBC (Auto) Salicylates Acetaminophen Heparin-induced Plt Ab 11/10/18 11/10/18 11/10/18 02:52 05:00 05:00 WBC RBC 2.95 L Hgb 8.9 L Hct 26.6 L MCV MCHC RDW Plt Count 100 L Lymph % (Auto) [place] % (Auto) Lymph # [place] # Seg Neutrophils % Seg Neuts % (Manual) Lymphocytes % (Manual) Monocytes % (Manual) 8.0 H Nucleated RBC % Seg Neutrophils # Seg Neutrophils # Man Lymphocytes # (Manual) Monocytes # (Manual) POC ABG pH POC ABG pCO2 POC ABG pO2 VBG pH Sodium Potassium Chloride Carbon Dioxide BUN 33 H Creatinine 6.8 H Glucose 251 H POC Glucose 186 H Hemoglobin A1c Lactic Acid Calcium 7.3 L Phosphorus Magnesium Direct Bilirubin AST ALT C-Reactive Protein Total Protein Albumin Urine WBC (Auto) Salicylates Acetaminophen Heparin-induced Plt Ab 11/10/18 11/10/18 11/10/18 05:16 11:47 17:32 WBC RBC Hgb Hct MCV MCHC RDW Plt Count Lymph % (Auto) [place] % (Auto) Lymph # [place] # Seg Neutrophils % Seg Neuts % (Manual) Lymphocytes % (Manual) Monocytes % (Manual) Nucleated RBC % Seg Neutrophils # Seg Neutrophils # Man Lymphocytes # (Manual) Monocytes # (Manual) POC ABG pH POC ABG pCO2 POC ABG pO2 VBG pH Sodium Potassium Chloride Carbon Dioxide BUN Creatinine Glucose POC Glucose 242 H 261 H 194 H Hemoglobin A1c Lactic Acid Calcium Phosphorus Magnesium Direct Bilirubin AST ALT C-Reactive Protein Total Protein Albumin Urine WBC (Auto) Salicylates Acetaminophen Heparin-induced Plt Ab 11/10/18 11/11/18 11/11/18 23:39 00:26 04:24 WBC RBC 2.98 L Hgb 9.1 L Hct 27.4 L MCV MCHC RDW Plt Count 114 L Lymph % (Auto) [place] % (Auto) Lymph # [place] # Seg Neutrophils % Seg Neuts % (Manual) Lymphocytes % (Manual) Monocytes % (Manual) 10.0 H Nucleated RBC % Seg Neutrophils # Seg Neutrophils # Man Lymphocytes # (Manual) Monocytes # (Manual) 1.0 H POC ABG pH POC ABG pCO2 POC ABG pO2 VBG pH Sodium Potassium Chloride Carbon Dioxide BUN Creatinine Glucose POC Glucose 60 L 124 H Hemoglobin A1c Lactic Acid Calcium Phosphorus Magnesium Direct Bilirubin AST ALT C-Reactive Protein Total Protein Albumin Urine WBC (Auto) Salicylates Acetaminophen Heparin-induced Plt Ab 11/11/18 11/11/18 11/11/18 04:24 05:27 05:31 WBC RBC Hgb Hct MCV MCHC RDW Plt Count Lymph % (Auto) [place] % (Auto) Lymph # [place] # Seg Neutrophils % Seg Neuts % (Manual) Lymphocytes % (Manual) Monocytes % (Manual) Nucleated RBC % Seg Neutrophils # Seg Neutrophils # Man Lymphocytes # (Manual) Monocytes # (Manual) POC ABG pH POC ABG pCO2 48.8 H POC ABG pO2 109 H VBG pH Sodium Potassium Chloride Carbon Dioxide BUN 23 H Creatinine 5.5 H Glucose 147 H POC Glucose 172 H Hemoglobin A1c Lactic Acid Calcium 7.9 L Phosphorus Magnesium Direct Bilirubin AST 152 H ALT 247 H C-Reactive Protein Total Protein Albumin 2.3 L Urine WBC (Auto) Salicylates Acetaminophen Heparin-induced Plt Ab 11/11/18 11/11/18 11/11/18 12:11 17:12 23:41 WBC RBC Hgb Hct MCV MCHC RDW Plt Count Lymph % (Auto) [place] % (Auto) Lymph # [place] # Seg Neutrophils % Seg Neuts % (Manual) Lymphocytes % (Manual) Monocytes % (Manual) Nucleated RBC % Seg Neutrophils # Seg Neutrophils # Man Lymphocytes # (Manual) Monocytes # (Manual) POC ABG pH POC ABG pCO2 POC ABG pO2 VBG pH Sodium Potassium Chloride Carbon Dioxide BUN Creatinine Glucose POC Glucose 343 H 188 H 145 H Hemoglobin A1c Lactic Acid Calcium Phosphorus Magnesium Direct Bilirubin AST ALT C-Reactive Protein Total Protein Albumin Urine WBC (Auto) Salicylates Acetaminophen Heparin-induced Plt Ab 11/12/18 11/12/18 11/12/18 00:11 04:44 04:44 WBC RBC 2.91 L Hgb 9.0 L Hct 26.9 L MCV MCHC RDW Plt Count Lymph % (Auto) 12.7 L [place] % (Auto) 14.9 H Lymph # 0.8 L [place] # 1.0 H Seg Neutrophils % 71.2 H Seg Neuts % (Manual) Lymphocytes % (Manual) Monocytes % (Manual) Nucleated RBC % Seg Neutrophils # Seg Neutrophils # Man Lymphocytes # (Manual) Monocytes # (Manual) POC ABG pH POC ABG pCO2 POC ABG pO2 VBG pH Sodium Potassium Chloride Carbon Dioxide BUN 22 H Creatinine 5.0 H Glucose 288 H POC Glucose 151 H Hemoglobin A1c Lactic Acid Calcium Phosphorus Magnesium Direct Bilirubin AST 88 H ALT 187 H C-Reactive Protein Total Protein Albumin 2.9 L Urine WBC (Auto) Salicylates Acetaminophen Heparin-induced Plt Ab 11/12/18 11/12/18 11/12/18 11:48 12:28 17:13 WBC RBC Hgb Hct MCV MCHC RDW Plt Count Lymph % (Auto) [place] % (Auto) Lymph # [place] # Seg Neutrophils % Seg Neuts % (Manual) Lymphocytes % (Manual) Monocytes % (Manual) Nucleated RBC % Seg Neutrophils # Seg Neutrophils # Man Lymphocytes # (Manual) Monocytes # (Manual) POC ABG pH POC ABG pCO2 POC ABG pO2 VBG pH Sodium Potassium Chloride Carbon Dioxide BUN Creatinine Glucose POC Glucose 414 H 437 H 251 H Hemoglobin A1c Lactic Acid Calcium Phosphorus Magnesium Direct Bilirubin AST ALT C-Reactive Protein Total Protein Albumin Urine WBC (Auto) Salicylates Acetaminophen Heparin-induced Plt Ab 11/13/18 11/13/18 11/13/18 00:43 04:14 04:14 WBC RBC 2.62 L Hgb 8.0 L Hct 24.0 L MCV MCHC RDW Plt Count Lymph % (Auto) [place] % (Auto) 15.8 H Lymph # [place] # 0.9 H Seg Neutrophils % Seg Neuts % (Manual) Lymphocytes % (Manual) Monocytes % (Manual) Nucleated RBC % Seg Neutrophils # Seg Neutrophils # Man Lymphocytes # (Manual) Monocytes # (Manual) POC ABG pH POC ABG pCO2 POC ABG pO2 VBG pH Sodium Potassium Chloride Carbon Dioxide BUN 32 H Creatinine 6.9 H Glucose 190 H POC Glucose 149 H Hemoglobin A1c Lactic Acid Calcium Phosphorus Magnesium Direct Bilirubin AST ALT C-Reactive Protein Total Protein Albumin Urine WBC (Auto) Salicylates Acetaminophen Heparin-induced Plt Ab 11/13/18 11/13/18 11/13/18 05:53 10:40 12:05 WBC RBC Hgb Hct MCV MCHC RDW Plt Count Lymph % (Auto) [place] % (Auto) Lymph # [place] # Seg Neutrophils % Seg Neuts % (Manual) Lymphocytes % (Manual) Monocytes % (Manual) Nucleated RBC % Seg Neutrophils # Seg Neutrophils # Man Lymphocytes # (Manual) Monocytes # (Manual) POC ABG pH POC ABG pCO2 POC ABG pO2 VBG pH Sodium Potassium Chloride Carbon Dioxide BUN Creatinine Glucose POC Glucose 270 H 405 H 361 H Hemoglobin A1c Lactic Acid Calcium Phosphorus Magnesium Direct Bilirubin AST ALT C-Reactive Protein Total Protein Albumin Urine WBC (Auto) Salicylates Acetaminophen Heparin-induced Plt Ab 11/13/18 11/13/18 11/14/18 18:48 23:55 04:57 WBC RBC 2.75 L Hgb 8.3 L Hct 25.2 L MCV MCHC RDW Plt Count Lymph % (Auto) [place] % (Auto) 15.8 H Lymph # 0.9 L [place] # 0.9 H Seg Neutrophils % Seg Neuts % (Manual) Lymphocytes % (Manual) Monocytes % (Manual) Nucleated RBC % Seg Neutrophils # Seg Neutrophils # Man Lymphocytes # (Manual) Monocytes # (Manual) POC ABG pH POC ABG pCO2 POC ABG pO2 VBG pH Sodium Potassium Chloride Carbon Dioxide BUN Creatinine Glucose POC Glucose 202 H 254 H Hemoglobin A1c Lactic Acid Calcium Phosphorus Magnesium Direct Bilirubin AST ALT C-Reactive Protein Total Protein Albumin Urine WBC (Auto) Salicylates Acetaminophen Heparin-induced Plt Ab 11/14/18 11/14/18 11/14/18 04:57 05:33 11:37 WBC RBC Hgb Hct MCV MCHC RDW Plt Count Lymph % (Auto) [place] % (Auto) Lymph # [place] # Seg Neutrophils % Seg Neuts % (Manual) Lymphocytes % (Manual) Monocytes % (Manual) Nucleated RBC % Seg Neutrophils # Seg Neutrophils # Man Lymphocytes # (Manual) Monocytes # (Manual) POC ABG pH POC ABG pCO2 POC ABG pO2 VBG pH Sodium 136 L Potassium Chloride 96.7 L Carbon Dioxide BUN 25 H Creatinine 5.3 H Glucose 235 H POC Glucose 242 H 272 H Hemoglobin A1c Lactic Acid Calcium Phosphorus Magnesium Direct Bilirubin AST ALT C-Reactive Protein Total Protein Albumin Urine WBC (Auto) Salicylates Acetaminophen Heparin-induced Plt Ab 11/14/18 11/14/18 11/15/18 18:08 23:21 04:50 WBC RBC 2.76 L Hgb 8.5 L Hct 25.4 L MCV MCHC RDW Plt Count Lymph % (Auto) [place] % (Auto) 14.5 H Lymph # [place] # 1.1 H Seg Neutrophils % Seg Neuts % (Manual) Lymphocytes % (Manual) Monocytes % (Manual) Nucleated RBC % Seg Neutrophils # Seg Neutrophils # Man Lymphocytes # (Manual) Monocytes # (Manual) POC ABG pH POC ABG pCO2 POC ABG pO2 VBG pH Sodium Potassium Chloride Carbon Dioxide BUN Creatinine Glucose POC Glucose 166 H 185 H Hemoglobin A1c Lactic Acid Calcium Phosphorus Magnesium Direct Bilirubin AST ALT C-Reactive Protein Total Protein Albumin Urine WBC (Auto) Salicylates Acetaminophen Heparin-induced Plt Ab 11/15/18 11/15/18 11/15/18 04:50 04:50 06:01 WBC RBC Hgb Hct MCV MCHC RDW Plt Count Lymph % (Auto) [place] % (Auto) Lymph # [place] # Seg Neutrophils % Seg Neuts % (Manual) Lymphocytes % (Manual) Monocytes % (Manual) Nucleated RBC % Seg Neutrophils # Seg Neutrophils # Man Lymphocytes # (Manual) Monocytes # (Manual) POC ABG pH POC ABG pCO2 POC ABG pO2 VBG pH Sodium Potassium Chloride 95.2 L Carbon Dioxide BUN 21 H Creatinine 4.8 H Glucose 126 H POC Glucose 150 H Hemoglobin A1c 10.1 H Lactic Acid Calcium Phosphorus Magnesium Direct Bilirubin AST ALT 69 H C-Reactive Protein Total Protein Albumin 2.7 L Urine WBC (Auto) Salicylates Acetaminophen Heparin-induced Plt Ab 11/15/18 11/15/18 11/16/18 13:06 18:08 00:39 WBC RBC Hgb Hct MCV MCHC RDW Plt Count Lymph % (Auto) [place] % (Auto) Lymph # [place] # Seg Neutrophils % Seg Neuts % (Manual) Lymphocytes % (Manual) Monocytes % (Manual) Nucleated RBC % Seg Neutrophils # Seg Neutrophils # Man Lymphocytes # (Manual) Monocytes # (Manual) POC ABG pH POC ABG pCO2 POC ABG pO2 VBG pH Sodium Potassium Chloride Carbon Dioxide BUN Creatinine Glucose POC Glucose 191 H 114 H 147 H Hemoglobin A1c Lactic Acid Calcium Phosphorus Magnesium Direct Bilirubin AST ALT C-Reactive Protein Total Protein Albumin Urine WBC (Auto) Salicylates Acetaminophen Heparin-induced Plt Ab 11/16/18 11/16/18 11/16/18 04:49 04:49 06:09 WBC RBC 2.60 L Hgb 8.0 L Hct 23.4 L MCV MCHC RDW Plt Count Lymph % (Auto) [place] % (Auto) 14.1 H Lymph # [place] # 1.2 H Seg Neutrophils % Seg Neuts % (Manual) Lymphocytes % (Manual) Monocytes % (Manual) Nucleated RBC % Seg Neutrophils # Seg Neutrophils # Man Lymphocytes # (Manual) Monocytes # (Manual) POC ABG pH POC ABG pCO2 POC ABG pO2 VBG pH Sodium 136 L Potassium Chloride 94.1 L Carbon Dioxide BUN 39 H Creatinine 7.4 H D Glucose 243 H POC Glucose 308 H Hemoglobin A1c Lactic Acid Calcium 8.3 L Phosphorus Magnesium Direct Bilirubin AST ALT C-Reactive Protein Total Protein Albumin 2.2 L Urine WBC (Auto) Salicylates Acetaminophen Heparin-induced Plt Ab 11/16/18 11/16/18 11/16/18 08:52 11:53 17:11 WBC RBC Hgb Hct MCV MCHC RDW Plt Count Lymph % (Auto) [place] % (Auto) Lymph # [place] # Seg Neutrophils % Seg Neuts % (Manual) Lymphocytes % (Manual) Monocytes % (Manual) Nucleated RBC % Seg Neutrophils # Seg Neutrophils # Man Lymphocytes # (Manual) Monocytes # (Manual) POC ABG pH POC ABG pCO2 POC ABG pO2 VBG pH Sodium Potassium Chloride Carbon Dioxide BUN Creatinine Glucose POC Glucose 278 H 178 H 173 H Hemoglobin A1c Lactic Acid Calcium Phosphorus Magnesium Direct Bilirubin AST ALT C-Reactive Protein Total Protein Albumin Urine WBC (Auto) Salicylates Acetaminophen Heparin-induced Plt Ab 11/16/18 11/17/18 11/17/18 21:27 00:08 04:45 WBC RBC 2.58 L Hgb 7.9 L Hct 23.5 L MCV MCHC RDW Plt Count Lymph % (Auto) [place] % (Auto) 10.3 H Lymph # [place] # 1.1 H Seg Neutrophils % 74.8 H Seg Neuts % (Manual) Lymphocytes % (Manual) Monocytes % (Manual) Nucleated RBC % Seg Neutrophils # Seg Neutrophils # Man Lymphocytes # (Manual) Monocytes # (Manual) POC ABG pH POC ABG pCO2 POC ABG pO2 VBG pH Sodium Potassium Chloride Carbon Dioxide BUN Creatinine Glucose POC Glucose 206 H 151 H Hemoglobin A1c Lactic Acid Calcium Phosphorus Magnesium Direct Bilirubin AST ALT C-Reactive Protein Total Protein Albumin Urine WBC (Auto) Salicylates Acetaminophen Heparin-induced Plt Ab 11/17/18 11/17/18 11/17/18 04:45 05:12 05:31 WBC RBC Hgb Hct MCV MCHC RDW Plt Count Lymph % (Auto) [place] % (Auto) Lymph # [place] # Seg Neutrophils % Seg Neuts % (Manual) Lymphocytes % (Manual) Monocytes % (Manual) Nucleated RBC % Seg Neutrophils # Seg Neutrophils # Man Lymphocytes # (Manual) Monocytes # (Manual) POC ABG pH 7.481 H POC ABG pCO2 POC ABG pO2 VBG pH Sodium 136 L Potassium Chloride 94.4 L Carbon Dioxide BUN 38 H Creatinine 6.8 H Glucose POC Glucose 111 H Hemoglobin A1c Lactic Acid Calcium Phosphorus Magnesium 2.40 H Direct Bilirubin AST ALT C-Reactive Protein Total Protein Albumin Urine WBC (Auto) Salicylates Acetaminophen Heparin-induced Plt Ab 11/17/18 11/17/18 11/18/18 12:10 23:23 04:24 WBC RBC 2.66 L Hgb 8.2 L Hct 24.0 L MCV MCHC RDW Plt Count 448 H Lymph % (Auto) [place] % (Auto) 12.7 H Lymph # [place] # 1.4 H Seg Neutrophils % 71.9 H Seg Neuts % (Manual) Lymphocytes % (Manual) Monocytes % (Manual) Nucleated RBC % Seg Neutrophils # Seg Neutrophils # Man Lymphocytes # (Manual) Monocytes # (Manual) POC ABG pH POC ABG pCO2 POC ABG pO2 VBG pH Sodium Potassium Chloride Carbon Dioxide BUN Creatinine Glucose POC Glucose 174 H 243 H Hemoglobin A1c Lactic Acid Calcium Phosphorus Magnesium Direct Bilirubin AST ALT C-Reactive Protein Total Protein Albumin Urine WBC (Auto) Salicylates Acetaminophen Heparin-induced Plt Ab 11/18/18 11/18/18 11/18/18 04:24 05:26 11:48 WBC RBC Hgb Hct MCV MCHC RDW Plt Count Lymph % (Auto) [place] % (Auto) Lymph # [place] # Seg Neutrophils % Seg Neuts % (Manual) Lymphocytes % (Manual) Monocytes % (Manual) Nucleated RBC % Seg Neutrophils # Seg Neutrophils # Man Lymphocytes # (Manual) Monocytes # (Manual) POC ABG pH POC ABG pCO2 POC ABG pO2 VBG pH Sodium 136 L Potassium Chloride 93.1 L Carbon Dioxide BUN 30 H Creatinine 5.9 H Glucose 211 H POC Glucose 205 H 162 H Hemoglobin A1c Lactic Acid Calcium Phosphorus Magnesium Direct Bilirubin AST ALT C-Reactive Protein Total Protein Albumin Urine WBC (Auto) Salicylates Acetaminophen Heparin-induced Plt Ab 11/18/18 11/18/18 11/18/18 12:01 19:37 23:21 WBC RBC Hgb Hct MCV MCHC RDW Plt Count Lymph % (Auto) [place] % (Auto) Lymph # [place] # Seg Neutrophils % Seg Neuts % (Manual) Lymphocytes % (Manual) Monocytes % (Manual) Nucleated RBC % Seg Neutrophils # Seg Neutrophils # Man Lymphocytes # (Manual) Monocytes # (Manual) POC ABG pH POC ABG pCO2 POC ABG pO2 VBG pH Sodium Potassium Chloride Carbon Dioxide BUN Creatinine Glucose POC Glucose 207 H 245 H Hemoglobin A1c Lactic Acid Calcium Phosphorus Magnesium Direct Bilirubin AST ALT C-Reactive Protein Total Protein Albumin Urine WBC (Auto) > 182.0 H Salicylates Acetaminophen Heparin-induced Plt Ab 11/19/18 11/19/18 11/19/18 04:24 05:21 12:01 WBC RBC Hgb Hct MCV MCHC RDW Plt Count Lymph % (Auto) [place] % (Auto) Lymph # [place] # Seg Neutrophils % Seg Neuts % (Manual) Lymphocytes % (Manual) Monocytes % (Manual) Nucleated RBC % Seg Neutrophils # Seg Neutrophils # Man Lymphocytes # (Manual) Monocytes # (Manual) POC ABG pH POC ABG pCO2 POC ABG pO2 VBG pH Sodium 134 L Potassium 5.4 H Chloride 89.8 L Carbon Dioxide BUN 54 H Creatinine 8.0 H Glucose 240 H POC Glucose 234 H 179 H Hemoglobin A1c Lactic Acid Calcium Phosphorus Magnesium Direct Bilirubin AST ALT C-Reactive Protein Total Protein Albumin Urine WBC (Auto) Salicylates Acetaminophen Heparin-induced Plt Ab 11/19/18 11/19/18 11/19/18 12:41 17:32 21:53 WBC 13.7 H RBC 2.73 L Hgb 8.3 L Hct 24.9 L MCV MCHC RDW Plt Count 479 H Lymph % (Auto) [place] % (Auto) Lymph # [place] # Seg Neutrophils % Seg Neuts % (Manual) Lymphocytes % (Manual) Monocytes % (Manual) Nucleated RBC % Seg Neutrophils # Seg Neutrophils # Man Lymphocytes # (Manual) Monocytes # (Manual) POC ABG pH POC ABG pCO2 POC ABG pO2 VBG pH Sodium Potassium Chloride Carbon Dioxide BUN Creatinine Glucose POC Glucose 317 H 421 H Hemoglobin A1c Lactic Acid Calcium Phosphorus Magnesium Direct Bilirubin AST ALT C-Reactive Protein Total Protein Albumin Urine WBC (Auto) Salicylates Acetaminophen Heparin-induced Plt Ab 11/19/18 11/20/18 11/20/18 23:16 06:03 10:25 WBC 11.9 H RBC 2.58 L Hgb 7.8 L Hct 23.1 L MCV MCHC RDW Plt Count 444 H Lymph % (Auto) [place] % (Auto) Lymph # [place] # Seg Neutrophils % Seg Neuts % (Manual) Lymphocytes % (Manual) Monocytes % (Manual) Nucleated RBC % Seg Neutrophils # Seg Neutrophils # Man Lymphocytes # (Manual) Monocytes # (Manual) POC ABG pH POC ABG pCO2 POC ABG pO2 VBG pH Sodium Potassium Chloride Carbon Dioxide BUN Creatinine Glucose POC Glucose 396 H 294 H Hemoglobin A1c Lactic Acid Calcium Phosphorus Magnesium Direct Bilirubin AST ALT C-Reactive Protein Total Protein Albumin Urine WBC (Auto) Salicylates Acetaminophen Heparin-induced Plt Ab 11/20/18 11/20/18 11/20/18 10:25 12:39 16:34 WBC RBC Hgb Hct MCV MCHC RDW Plt Count Lymph % (Auto) [place] % (Auto) Lymph # [place] # Seg Neutrophils % Seg Neuts % (Manual) Lymphocytes % (Manual) Monocytes % (Manual) Nucleated RBC % Seg Neutrophils # Seg Neutrophils # Man Lymphocytes # (Manual) Monocytes # (Manual) POC ABG pH POC ABG pCO2 POC ABG pO2 VBG pH Sodium 135 L Potassium 6.1 H* 5.1 H Chloride 89.8 L Carbon Dioxide BUN 55 H Creatinine 8.2 H Glucose 302 H POC Glucose 245 H Hemoglobin A1c Lactic Acid Calcium Phosphorus Magnesium Direct Bilirubin AST ALT C-Reactive Protein Total Protein Albumin Urine WBC (Auto) Salicylates Acetaminophen Heparin-induced Plt Ab 11/20/18 11/20/18 11/20/18 17:45 18:16 23:12 WBC RBC Hgb Hct MCV MCHC RDW Plt Count Lymph % (Auto) [place] % (Auto) Lymph # [place] # Seg Neutrophils % Seg Neuts % (Manual) Lymphocytes % (Manual) Monocytes % (Manual) Nucleated RBC % Seg Neutrophils # Seg Neutrophils # Man Lymphocytes # (Manual) Monocytes # (Manual) POC ABG pH POC ABG pCO2 POC ABG pO2 VBG pH Sodium Potassium 5.2 H Chloride 90.2 L Carbon Dioxide BUN 60 H Creatinine 8.9 H Glucose 217 H POC Glucose 211 H 320 H Hemoglobin A1c Lactic Acid Calcium Phosphorus Magnesium Direct Bilirubin AST ALT C-Reactive Protein Total Protein Albumin Urine WBC (Auto) Salicylates Acetaminophen Heparin-induced Plt Ab 11/21/18 11/21/18 11/21/18 04:44 04:44 05:32 WBC RBC 2.51 L Hgb 7.8 L Hct 22.3 L MCV MCHC 35 H RDW Plt Count Lymph % (Auto) [place] % (Auto) 9.5 H Lymph # [place] # 1.0 H Seg Neutrophils % 72.3 H Seg Neuts % (Manual) Lymphocytes % (Manual) Monocytes % (Manual) Nucleated RBC % Seg Neutrophils # Seg Neutrophils # Man Lymphocytes # (Manual) Monocytes # (Manual) POC ABG pH POC ABG pCO2 POC ABG pO2 VBG pH Sodium Potassium Chloride 92.7 L Carbon Dioxide BUN 36 H Creatinine 5.9 H Glucose 209 H POC Glucose 203 H Hemoglobin A1c Lactic Acid Calcium Phosphorus 5.50 H Magnesium Direct Bilirubin AST ALT C-Reactive Protein Total Protein Albumin Urine WBC (Auto) Salicylates Acetaminophen Heparin-induced Plt Ab 11/21/18 11/21/18 11/21/18 10:45 12:18 17:49 WBC RBC Hgb Hct MCV MCHC RDW Plt Count Lymph % (Auto) [place] % (Auto) Lymph # [place] # Seg Neutrophils % Seg Neuts % (Manual) Lymphocytes % (Manual) Monocytes % (Manual) Nucleated RBC % Seg Neutrophils # Seg Neutrophils # Man Lymphocytes # (Manual) Monocytes # (Manual) POC ABG pH 7.473 H POC ABG pCO2 POC ABG pO2 121 H VBG pH Sodium Potassium Chloride Carbon Dioxide BUN Creatinine Glucose POC Glucose 149 H 233 H Hemoglobin A1c Lactic Acid Calcium Phosphorus Magnesium Direct Bilirubin AST ALT C-Reactive Protein Total Protein Albumin Urine WBC (Auto) Salicylates Acetaminophen Heparin-induced Plt Ab 11/21/18 23:39 WBC RBC Hgb Hct MCV MCHC RDW Plt Count Lymph % (Auto) [place] % (Auto) Lymph # [place] # Seg Neutrophils % Seg Neuts % (Manual) Lymphocytes % (Manual) Monocytes % (Manual) Nucleated RBC % Seg Neutrophils # Seg Neutrophils # Man Lymphocytes # (Manual) Monocytes # (Manual) POC ABG pH POC ABG pCO2 POC ABG pO2 VBG pH Sodium Potassium Chloride Carbon Dioxide BUN Creatinine Glucose POC Glucose 235 H Hemoglobin A1c Lactic Acid Calcium Phosphorus Magnesium Direct Bilirubin AST ALT C-Reactive Protein Total Protein Albumin Urine WBC (Auto) Salicylates Acetaminophen Heparin-induced Plt Ab Allied health notes reviewed: RT (Daily weaning trials as tolerated)
[2018-11-22] MEDS: LOPRESSOR PO SCH ×4 (04:18→22:49)
[2018-11-22] MEDS: TYLENOL FEEDTUBE PRN ×2 (04:18→12:57)
[2018-11-22 05:12] LABS: Basophils # (Auto) 0.1 K/mm3 (0.0-0.1); Basophils % (Auto) 0.9 % (0.0-1.8); Eosinophils % (Auto) 0.3 % (0.0-4.3); Hematocrit 23.5 % (35.5-45.6); Hemoglobin 7.6 gm/dl (11.8-15.2); Lymphocytes # (Auto) 1.5 K/mm3 (1.2-5.4); Lymphocytes % (Auto) 9.9 % (13.4-35.0); Mean Corpuscular HGB Conc 33 % (32-34); Mean Corpuscular Volume 91 fl (84-94); Monocytes # (Auto) 1.5 K/mm3 (0.0-0.8); Monocytes % (Auto) 9.7 % (0.0-7.3); Platelet Count 472 K/mm3 (140-440); Red Blood Count 2.59 M/mm3 (3.65-5.03); Red Cell Distribution Width 14.8 % (13.2-15.2)
[2018-11-22 05:32] LABS: Calcium 9.6 mg/dL (8.4-10.2)
[2018-11-22] MEDS: APRESOLINE PO SCH ×3 (05:59→22:47)
[2018-11-22] MEDS: HumuLIN R SUB-Q SCH ×3 (06:00→17:37)
[2018-11-22] MEDS: KEPPRA PO SCH ×2 (10:20→22:47)
[2018-11-22] MEDS: PREVACID SOLUTAB FEEDTUBE SCH ×2 (10:20→22:48)
[2018-11-22] MEDS: FLOMAX PO SCH (10:21)
[2018-11-22] MEDS: ELIQUIS FEEDTUBE SCH ×2 (10:21→22:47)
[2018-11-22] MEDS: PROVIGIL PO SCH (10:22)
[2018-11-22] MEDS: SODIUM CHLORIDE FLUSH SYRINGE 10 ML IV SCH ×2 (10:22→22:49)
--- NOTE | 2018-11-22 12:53 | Progress Note ---
Assessment and Plan Severe renal failure due to GENEVIEVE on CKD, now ESRD on HD S/p High Anion Gap Metabolic Acidosis with elevated lactic acidosis with DKA: S/p Hyperkalemia: S/p Hyperphosphatemia: Hypernatremia: - S/p HD yesterday for UF and clearance, UF removed 2 liters - No acute indication for HD today - Assess dialysis needs daily - Renally dose medications - Avoid Nephrotoxic agents - Strict intake and output - Renal plan d/w Dr Bojorquez S/p Cardiopulmonary arrest. STEMI: Acute Hypoxic respiratory failure: -S/p CPR and ACLS protocol -Now off pressor support -Cardiology on board -On ventilator via Trach. S/p Diabetic Ketoacidosis: Diabetes Mellitus: - S/p insulin drip - On SQ insulin - As per primary team Acute Encephalopathy History of Seizure: -On IV Keppra -As per Neurology Subjective Date of service: 11/22/18 Principal diagnosis: Ac hypoxemic resp failure; DKA; Severe sepsis with shock; ESRD on dialysis Interval history: Pt seen in ICU, on ventilator, no acute distress. No family at bedside Objective - Vital Signs Vital signs: Vital Signs - 12hr 11/22/18 11/22/18 11/22/18 01:00 01:30 02:00 Temperature Pulse Rate 107 H 112 H 115 H Pulse Rate [ From Monitor] Respiratory 20 19 20 Rate Blood Pressure 137/70 139/74 162/80 O2 Sat by Pulse 100 100 100 Oximetry O2 Sat by Pulse Oximetry [ Assessment] 11/22/18 11/22/18 11/22/18 02:30 03:00 03:15 Temperature Pulse Rate 113 H 113 H Pulse Rate [ From Monitor] Respiratory 20 20 Rate Blood Pressure 137/71 135/72 O2 Sat by Pulse 97 99 Oximetry O2 Sat by Pulse 100 Oximetry [ Assessment] 11/22/18 11/22/18 11/22/18 03:30 04:00 04:18 Temperature 102.0 F H Pulse Rate 121 H 123 H 118 H Pulse Rate [ From Monitor] Respiratory 18 22 Rate Blood Pressure 136/71 134/75 150/78 O2 Sat by Pulse 99 100 Oximetry O2 Sat by Pulse Oximetry [ Assessment] 11/22/18 11/22/18 11/22/18 04:30 04:35 05:00 Temperature Pulse Rate 122 H 117 H 111 H Pulse Rate [ From Monitor] Respiratory 19 15 Rate Blood Pressure 174/91 139/70 141/71 O2 Sat by Pulse 100 97 100 Oximetry O2 Sat by Pulse Oximetry [ Assessment] 11/22/18 11/22/18 11/22/18 05:30 05:59 06:00 Temperature Pulse Rate 104 H 103 H 103 H Pulse Rate [ From Monitor] Respiratory 16 13 Rate Blood Pressure 105/59 113/68 118/64 O2 Sat by Pulse 100 100 Oximetry O2 Sat by Pulse Oximetry [ Assessment] 11/22/18 11/22/18 11/22/18 06:30 07:00 07:30 Temperature Pulse Rate 108 H 108 H 108 H Pulse Rate [ From Monitor] Respiratory 15 17 21 Rate Blood Pressure 126/78 145/80 144/82 O2 Sat by Pulse 98 100 100 Oximetry O2 Sat by Pulse Oximetry [ Assessment] 11/22/18 11/22/18 11/22/18 08:00 08:30 09:00 Temperature 98.0 F Pulse Rate 110 H 109 H 112 H Pulse Rate [ 109 H From Monitor] Respiratory 22 16 23 Rate Blood Pressure 142/73 128/61 128/66 O2 Sat by Pulse 100 100 99 Oximetry O2 Sat by Pulse 98 Oximetry [ Assessment] 11/22/18 11/22/18 11/22/18 09:20 09:30 10:00 Temperature Pulse Rate 101 H 109 H 110 H Pulse Rate [ From Monitor] Respiratory 33 H 17 20 Rate Blood Pressure 118/54 137/74 137/71 O2 Sat by Pulse 99 99 100 Oximetry O2 Sat by Pulse Oximetry [ Assessment] 11/22/18 11/22/18 11/22/18 10:21 10:30 11:00 Temperature Pulse Rate 113 H 111 H 99 H Pulse Rate [ From Monitor] Respiratory 17 16 Rate Blood Pressure 129/70 133/68 128/69 O2 Sat by Pulse 99 99 Oximetry O2 Sat by Pulse Oximetry [ Assessment] 11/22/18 11/22/18 11/22/18 11:30 11:47 11:54 Temperature 101.7 F H Pulse Rate 100 H Pulse Rate [ 102 H From Monitor] Respiratory 33 H 31 H Rate Blood Pressure 132/74 O2 Sat by Pulse 98 99 Oximetry O2 Sat by Pulse Oximetry [ Assessment] 11/22/18 12:00 Temperature Pulse Rate 106 H Pulse Rate [ From Monitor] Respiratory 24 Rate Blood Pressure 131/71 O2 Sat by Pulse 100 Oximetry O2 Sat by Pulse Oximetry [ Assessment] - General Appearance General appearance: other (on ventilator) EENT: ATNC Neck: no JVD Respiratory: Present: Decreased Breath Sounds (tracheostomy in place, on ventilator) Cardiology: S1S2, other (ACCESS: Left AVF + thrill and bruit noted) Gastrointestinal: normoactive bowel sounds (PEG tube intact) Integumentary: warm and dry Neurologic: other (on ventilator) Musculoskeletal: other (no edema to BLE) Psychiatric: other (unable to assess) - Lab 11/22/18 04:52 11/22/18 04:52 Most recent lab results Calcium 9.6 mg/dL (8.4-10.2) 11/22/18 04:52 Phosphorus 3.90 mg/dL (2.5-4.5) D 11/22/18 04:52 Magnesium 2.40 mg/dL (1.7-2.3) H 11/17/18 04:45 Medications & Allergies - Medications Allergies/Adverse Reactions: Allergies No Known Allergies Allergy (Verified 03/17/18 11:54) Home Medications: Home Medications Medication Instructions Recorded Confirmed Last Taken Type Esomeprazole Magnesium [NexIUM] 20 mg PO QDAY #30 suspdr.pkt 03/17/18 11/07/18 Unknown Rx HYDROcodone/APAP 5-325 [[place] 1 each PO Q6HR PRN #15 tablet 03/17/18 11/07/18 Unknown Rx 5/325] Metoclopramide [Reglan] 10 mg PO TID #21 tab 03/17/18 11/07/18 Unknown Rx Ondansetron [Zofran Odt] 4 mg PO Q4HR PRN #20 tab.rapdis 03/17/18 11/07/18 Unknown Rx Active Medications: Generic Name Dose Route Start Last Admin Trade Name Freq PRN Reason Stop Dose Admin Acetaminophen 650 mg 11/06/18 22:22 11/22/18 04:18 Tylenol FEEDTUBE 650 mg Q6H PRN Administration Fever >101 Lipase/Protease/Amylase 1 each 11/08/18 18:38 Pancreclara [place] 10,500 Unit FEEDTUBE PRN PRN For Clogged Feeding Tube Apixaban 2.5 mg 11/20/18 22:00 11/22/18 10:21 Eliquis FEEDTUBE 2.5 mg BID MARIAJOSE Administration Chlorpromazine HCl 10 mg 11/07/18 08:07 11/18/18 07:58 Thorazine PO 10 mg Q6H PRN Administration Hiccups Clonazepam 0.5 mg 11/12/18 16:49 11/13/18 23:10 Klonopin PO 0.5 mg Q12H PRN Administration myoclonic jerks Dextrose 50 ml 11/07/18 16:46 11/10/18 23:43 D50w (25gm) Syringe IV 50 ml PRN PRN Administration Hypoglycemia Epoetin Enoc 20,000 unit 11/18/18 13:46 11/20/18 21:06 Procrit IV 20,000 unit MAYR PRN Administration hemodialysis Fentanyl 50 mcg 11/06/18 08:37 Sublimaze IV Q10MIN PRN ANALGESIA Hydralazine HCl 10 mg 11/08/18 00:56 11/21/18 08:11 Apresoline IV 10 mg Q4H PRN Administration Hypertension Hydralazine HCl 50 mg 11/14/18 09:16 11/22/18 05:59 Apresoline PO 50 mg Q8HR MARIAJOSE Administration Hydrophilic Ointment 1 applic 11/06/18 08:26 11/10/18 19:52 Vaseline Lip Therapy TP 1 applic Q2HR PRN Administration Dry Lips Sodium Chloride 100 mls @ 999 mls/hr 11/14/18 11:33 Nacl 0.9% IV MARY PRN Hypotension Cefepime HCl 1 gm in 100 mls @ 200 mls/hr 11/19/18 18:00 11/21/18 19:49 Maxipime/Ns 1 Gm/100 Ml IV 200 mls/hr QPM MARIAJOSE Administration Protocol Insulin Human Isoph/Insulin Regular 36 unit 11/22/18 08:00 11/22/18 08:57 Humulin 70/30 SUB-Q 36 unit QAMDIAB MARIAJOSE Administration Insulin Human Isoph/Insulin Regular 40 unit 11/21/18 17:00 11/21/18 17:30 Humulin 70/30 SUB-Q 40 unit QPMDIAB MARIAJOSE Administration Insulin Human Regular 0 units 11/07/18 18:00 11/22/18 06:00 Humulin R SUB-Q 6 units Q6HR MARIAJOSE Administration Protocol Labetalol HCl 10 mg 11/19/18 16:09 11/20/18 15:24 Normodyne IV 10 mg Q4H PRN Administration Hypertension Lansoprazole 30 mg 11/09/18 10:00 11/22/18 10:20 Prevacid Solutab FEEDTUBE 30 mg BID MARIAJOSE Administration Levetiracetam 750 mg 11/18/18 10:00 11/22/18 10:20 Keppra PO 750 mg BID MARIAJOSE Administration Lorazepam 2 mg 11/12/18 08:31 11/15/18 14:25 Ativan IV 2 mg Q4H PRN Administration Agitation Metoprolol Tartrate 50 mg 11/14/18 10:00 11/22/18 10:21 Lopressor PO 50 mg Q6H MARIAJOSE Administration Modafinil 200 mg 11/17/18 10:00 11/22/18 10:22 Provigil PO 200 mg QAM MARIAJOSE Administration Multi-Ingred Cream/Lotion/Oil/Oint 1 applic 11/06/18 08:26 Artificial Tears Ophth Oint OU Q4HR PRN Dry Eye(s) Simple Syrup 15 ml 11/08/18 18:38 Simple Syrup FEEDTUBE PRN PRN Hypoglycemia Simple Syrup 30 ml 11/08/18 18:38 Simple Syrup FEEDTUBE PRN PRN Hypoglycemia Sodium Bicarbonate 325 mg 11/08/18 18:38 Sodium Bicarbonate FEEDTUBE PRN PRN For Clogged Feeding Tube Sodium Chloride 10 ml 11/06/18 22:00 11/22/18 10:22 Sodium Chloride Flush Syringe 10 Ml IV 10 ml BID MARIAJOSE Administration Sodium Chloride 10 ml 11/06/18 12:42 11/13/18 10:30 Sodium Chloride Flush Syringe 10 Ml IV 10 ml PRN PRN Administration LINE FLUSH Tamsulosin HCl 0.4 mg 11/10/18 13:00 11/22/18 10:21 Flomax PO 0.4 mg QDAY MARIAJOSE Administration
[2018-11-22] MEDS: THORAZINE PO PRN (12:56)
--- NOTE | 2018-11-22 14:30 | Progress Note ---
Assessment and Plan /Severe hyperkalemia, resolved - s/p Kayexalate with PEG tube, bicarbonate, calcium gluconate, insulin and D50 - Continue to monitor potassium level / Febrile illness with UTI and sepsis - spiked fever on 11/18, urine cx showing gm negative rods - Started on cefepime, consulted ID, follow final cx /S/P Cardiopulmonary Arrest- Possibly from renal failure with severe DKA and underlying CHF 2d echo showed Ef 30-35% cont ventilatory support, nebulizers, monitor ins/os /Anoxic Encephalopathy; from cardiac arrest neurology following, supportive care Poor prognosis, follow EEG /-Acute Hypoxic Respiratory failure; on ventilatory support failed to extubate s/p trach and PEG on 11/19/ /-Accelerated hypertension; improved Continue current meds with PEG tube, IV labetalol as needed / DKA-corrected; uncontrolled blood sugars, a1c 10.1 Accu-Chek sliding scale coverage and ADA diet, on 70/30 insulin, adjust the dose Dose as needed / SIRS, POA, likely from DKA and renal failure. 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 closely monitor platelets /-Seizure Disorder; seizure precautions cont Antiepileptic medications, neurology following, EEG findings noted /-Acute Kidney Injury secondary to ischemic ATN from hypotension, Hemodialysis per schedule nephrology following /-Cardiogenic Shock; improved /-Anemia of chronic disease; monitor H&H and transfuse as needed /-Severe malnutrition/nutritional supplements, nutrition consult; /-PAD; no statin for abnormal liver function /-Shock Liver; with transaminitis, trending down, cont to monitor, supportive care /CHF with EF 30-35% - monitor volume status, cardiology following --DVT prophylaxis; SCDs --Full CODE STATUS Very poor prognosis. Plan of care is reviewed with the patient's mother in detail Critical care time 34 minutes Disposition : will need placement Brief History 42 YO Male with ESRD on HD, HTN, DM, PAD, Nicotine Dependence presents to ED for evaluation. As per family, the patient was in his usual state of health around bedtime at 2200hrs. Pt was found down and unresponsive by family the next morning. EMS notified, and upon arrival the patient was found to be in distress. Pt Intubated and placed on vent support. Pt transported to [facility]. Pt seen and evaluated in ED and found to have STEMI, Acute on Chronic Renal Failure, Acidosis, Acute Respiratory Failure, Sepsis, and DKA. Pt experienced cardiac arrest in ED and was treated IAW ACLS protocol with return of perfusing cardiac rhythm. Pt found to have signs of Anoxic Brain Injury. Pt admitted to ICU and initiated on sepsis protocol and treated with IVF resuscitation therapy, IV pressor support. Pt has poor prognosis. Neurology , Cardiology ,pulm and Nephrology are following,receiving HD per nephrology, Vent dependent with poor prognosis, s/p Trach and PEG and placement 11/19. need placement Hospitalist Physical General appearance: Present: no acute distress, well-nourished, other ( on vent) - EENT Eyes: Present: PERRL - Neck Neck: Present: supple, normal ROM, trach in place - Respiratory Respiratory effort: normal Respiratory: bilateral: diminished, rhonchi, negative: rales, wheezing - Cardiovascular Rhythm: regular Heart Sounds: Present: S1 & S2 - Extremities Extremities: no ischemia, No edema - Abdominal General gastrointestinal: soft, non-tender, non-distended, normal bowel sounds, hypoactive bowel sounds - Integumentary Integumentary: Present: clear, warm - Psychiatric Psychiatric: other (on vent) - Neurologic Neurologic: other (on vent) With trach Subjective Date of service: 11/22/18 Principal diagnosis: Ac hypoxemic resp failure; DKA; Severe sepsis with shock; ESRD on dialysis Interval history: Patient seen and examined tolerating TF still having low-high grade temp Objective - Constitutional Vitals: Vital Signs - 12hr 11/22/18 11/22/18 11/22/18 03:00 03:15 03:30 Temperature Pulse Rate 113 H 121 H Pulse Rate [ From Monitor] Respiratory 20 18 Rate Blood Pressure 135/72 136/71 O2 Sat by Pulse 99 99 Oximetry O2 Sat by Pulse 100 Oximetry [ Assessment] 11/22/18 11/22/18 11/22/18 04:00 04:18 04:30 Temperature 102.0 F H Pulse Rate 123 H 118 H 122 H Pulse Rate [ From Monitor] Respiratory 22 19 Rate Blood Pressure 134/75 150/78 174/91 O2 Sat by Pulse 100 100 Oximetry O2 Sat by Pulse Oximetry [ Assessment] 11/22/18 11/22/18 11/22/18 04:35 05:00 05:30 Temperature Pulse Rate 117 H 111 H 104 H Pulse Rate [ From Monitor] Respiratory 15 16 Rate Blood Pressure 139/70 141/71 105/59 O2 Sat by Pulse 97 100 100 Oximetry O2 Sat by Pulse Oximetry [ Assessment] 11/22/18 11/22/18 11/22/18 05:59 06:00 06:30 Temperature Pulse Rate 103 H 103 H 108 H Pulse Rate [ From Monitor] Respiratory 13 15 Rate Blood Pressure 113/68 118/64 126/78 O2 Sat by Pulse 100 98 Oximetry O2 Sat by Pulse Oximetry [ Assessment] 11/22/18 11/22/18 11/22/18 07:00 07:30 08:00 Temperature 98.0 F Pulse Rate 108 H 108 H 110 H Pulse Rate [ 109 H From Monitor] Respiratory 17 21 22 Rate Blood Pressure 145/80 144/82 142/73 O2 Sat by Pulse 100 100 100 Oximetry O2 Sat by Pulse 98 Oximetry [ Assessment] 11/22/18 11/22/18 11/22/18 08:30 09:00 09:20 Temperature Pulse Rate 109 H 112 H 101 H Pulse Rate [ From Monitor] Respiratory 16 23 33 H Rate Blood Pressure 128/61 128/66 118/54 O2 Sat by Pulse 100 99 99 Oximetry O2 Sat by Pulse Oximetry [ Assessment] 11/22/18 11/22/18 11/22/18 09:30 10:00 10:21 Temperature Pulse Rate 109 H 110 H 113 H Pulse Rate [ From Monitor] Respiratory 17 20 Rate Blood Pressure 137/74 137/71 129/70 O2 Sat by Pulse 99 100 Oximetry O2 Sat by Pulse Oximetry [ Assessment] 11/22/18 11/22/18 11/22/18 10:30 11:00 11:30 Temperature Pulse Rate 111 H 99 H 100 H Pulse Rate [ From Monitor] Respiratory 17 16 33 H Rate Blood Pressure 133/68 128/69 132/74 O2 Sat by Pulse 99 99 98 Oximetry O2 Sat by Pulse Oximetry [ Assessment] 11/22/18 11/22/18 11/22/18 11:47 11:54 12:00 Temperature 101.7 F H Pulse Rate 106 H Pulse Rate [ 102 H From Monitor] Respiratory 31 H 24 Rate Blood Pressure 131/71 O2 Sat by Pulse 99 100 Oximetry O2 Sat by Pulse Oximetry [ Assessment] 11/22/18 11/22/18 12:57 13:12 Temperature Pulse Rate 105 H Pulse Rate [ From Monitor] Respiratory 24 Rate Blood Pressure 130/70 O2 Sat by Pulse Oximetry O2 Sat by Pulse Oximetry [ Assessment] - Labs CBC & Chem 7: 11/23/18 04:39 11/23/18 04:39 Labs: Abnormal lab results 11/21/18 11/21/18 11/22/18 Range/Units 17:49 23:39 04:52 WBC 15.1 H (4.5-11.0) K/mm3 RBC 2.59 L (3.65-5.03) M/mm3 Hgb 7.6 L (11.8-15.2) gm/dl Hct 23.5 L (35.5-45.6) % Plt Count 472 H (140-440) K/mm3 Lymph % (Auto) 9.9 L (13.4-35.0) % [place] % (Auto) 9.7 H (0.0-7.3) % [place] # 1.5 H (0.0-0.8) K/mm3 Seg Neutrophils % 79.2 H (40.0-70.0) % Seg Neutrophils # 11.9 H (1.8-7.7) K/mm3 Chloride (98-107) mmol/L BUN (9-20) mg/dL Creatinine (0.8-1.5) mg/dL Glucose (75-100) mg/dL POC Glucose 233 H 235 H (70-105) 11/22/18 11/22/18 11/22/18 Range/Units 04:52 05:49 11:39 WBC (4.5-11.0) K/mm3 RBC (3.65-5.03) M/mm3 Hgb (11.8-15.2) gm/dl Hct (35.5-45.6) % Plt Count (140-440) K/mm3 Lymph % (Auto) (13.4-35.0) % [place] % (Auto) (0.0-7.3) % [place] # (0.0-0.8) K/mm3 Seg Neutrophils % (40.0-70.0) % Seg Neutrophils # (1.8-7.7) K/mm3 Chloride 94.9 L (98-107) mmol/L BUN 34 H (9-20) mg/dL Creatinine 5.6 H (0.8-1.5) mg/dL Glucose 182 H (75-100) mg/dL POC Glucose 264 H 277 H (70-105)
[2018-11-22] MEDS: MERREM/NS 500 MG/50 ML 500 MG/50 ML BAG IV SCH (16:18)
[2018-11-23] MEDS: HumuLIN R SUB-Q SCH ×5 (00:31→23:54)
[2018-11-23] MEDS: LOPRESSOR PO SCH ×4 (03:32→21:24)
[2018-11-23 05:26] LABS: Basophils % (Auto) 0.3 % (0.0-1.8); Eosinophils % (Auto) 0.3 % (0.0-4.3); Hematocrit 21.2 % (35.5-45.6); Hemoglobin 7.1 gm/dl (11.8-15.2); Lymphocytes # (Auto) 1.5 K/mm3 (1.2-5.4); Lymphocytes % (Auto) 11.8 % (13.4-35.0); Mean Corpuscular HGB Conc 33 % (32-34); Mean Corpuscular Volume 90 fl (84-94); Monocytes # (Auto) 1.2 K/mm3 (0.0-0.8); Monocytes % (Auto) 9.8 % (0.0-7.3); Platelet Count 433 K/mm3 (140-440); Red Blood Count 2.36 M/mm3 (3.65-5.03); Red Cell Distribution Width 14.6 % (13.2-15.2)
[2018-11-23 05:49] LABS: Calcium 9.4 mg/dL (8.4-10.2)
[2018-11-23] MEDS: APRESOLINE PO SCH ×3 (06:33→21:24)
--- NOTE | 2018-11-23 08:40 | Progress Note ---
Assessment and Plan Severe renal failure due to GENEVIEVE on CKD, now ESRD on HD S/p High Anion Gap Metabolic Acidosis with elevated lactic acidosis with DKA: S/p Hyperkalemia: S/p Hyperphosphatemia: Hypernatremia: - No acute indication for HD today - Assess dialysis needs daily - Renally dose medications - Avoid Nephrotoxic agents - Strict intake and output S/p Cardiopulmonary arrest. STEMI: Acute Hypoxic respiratory failure: -S/p CPR and ACLS protocol -Now off pressor support -Cardiology on board -On ventilator via Trach. S/p Diabetic Ketoacidosis: Diabetes Mellitus: - S/p insulin drip - On SQ insulin - As per primary team Acute Encephalopathy History of Seizure: -On IV Keppra -As per Neurology Subjective Date of service: 11/23/18 Principal diagnosis: Ac hypoxemic resp failure; DKA; Severe sepsis with shock; ESRD on dialysis Interval history: on the vent, does not follow commands Objective - Vital Signs Vital signs: Vital Signs - 12hr 11/22/18 11/22/18 11/22/18 20:44 21:00 21:30 Temperature Pulse Rate 109 H 109 H 108 H Respiratory 15 20 20 Rate Blood Pressure 127/75 131/75 124/72 O2 Sat by Pulse 100 100 100 Oximetry O2 Sat by Pulse Oximetry [ Assessment] 11/22/18 11/22/18 11/22/18 22:00 22:30 22:47 Temperature Pulse Rate 112 H 112 H 109 H Respiratory 20 15 Rate Blood Pressure 125/75 127/74 127/74 O2 Sat by Pulse 100 100 Oximetry O2 Sat by Pulse Oximetry [ Assessment] 11/22/18 11/22/18 11/22/18 22:49 23:00 23:30 Temperature Pulse Rate 110 H 112 H 99 H Respiratory 20 20 Rate Blood Pressure 127/74 144/80 119/67 O2 Sat by Pulse 100 99 Oximetry O2 Sat by Pulse Oximetry [ Assessment] 11/23/18 11/23/18 11/23/18 00:00 00:30 00:33 Temperature 100.6 F H Pulse Rate 102 H 100 H 101 H Respiratory 20 19 Rate Blood Pressure 122/71 119/67 122/71 O2 Sat by Pulse 99 98 98 Oximetry O2 Sat by Pulse Oximetry [ Assessment] 11/23/18 11/23/18 11/23/18 01:00 01:30 02:00 Temperature Pulse Rate 105 H 104 H 101 H Respiratory 20 20 20 Rate Blood Pressure 133/76 129/69 121/66 O2 Sat by Pulse 98 99 99 Oximetry O2 Sat by Pulse Oximetry [ Assessment] 11/23/18 11/23/18 11/23/18 02:30 02:33 03:00 Temperature Pulse Rate 111 H 113 H Respiratory 18 14 Rate Blood Pressure 149/86 145/83 O2 Sat by Pulse 100 100 Oximetry O2 Sat by Pulse 100 Oximetry [ Assessment] 11/23/18 11/23/18 11/23/18 03:30 03:32 04:00 Temperature 98.7 F Pulse Rate 114 H 113 H 108 H Respiratory 21 24 Rate Blood Pressure 154/71 154/71 147/80 O2 Sat by Pulse 98 99 Oximetry O2 Sat by Pulse Oximetry [ Assessment] 11/23/18 11/23/18 11/23/18 04:30 04:42 05:00 Temperature Pulse Rate 102 H 111 H 102 H Respiratory 22 22 Rate Blood Pressure 143/77 154/71 139/75 O2 Sat by Pulse 98 98 99 Oximetry O2 Sat by Pulse Oximetry [ Assessment] 11/23/18 11/23/18 11/23/18 05:30 06:00 06:33 Temperature Pulse Rate 104 H 104 H 11 L Respiratory 21 24 Rate Blood Pressure 144/69 148/76 144/75 O2 Sat by Pulse 99 100 Oximetry O2 Sat by Pulse Oximetry [ Assessment] - General Appearance General appearance: well-developed, well-nourished EENT: ATNC, PERRL, mucous membranes dry Neck: no JVD, no carotid bruit Respiratory: Present: Clear to Ascultation Cardiology: regular, S1S2 Gastrointestinal: normoactive bowel sounds, no tenderness, no distended Integumentary: no rash, warm and dry Neurologic: other (does not follow commands) Musculoskeletal: other (trace pitting edema in BLE) Psychiatric: other (does not answer questions) - Lab 11/23/18 04:39 11/23/18 04:39 Most recent lab results Calcium 9.4 mg/dL (8.4-10.2) 11/23/18 04:39 Phosphorus 5.20 mg/dL (2.5-4.5) H D 11/23/18 04:39 Magnesium 2.40 mg/dL (1.7-2.3) H 11/17/18 04:45 Medications & Allergies - Medications Allergies/Adverse Reactions: Allergies No Known Allergies Allergy (Verified 03/17/18 11:54) Home Medications: Home Medications Medication Instructions Recorded Confirmed Last Taken Type Esomeprazole Magnesium [NexIUM] 20 mg PO QDAY #30 suspdr.pkt 03/17/18 11/07/18 Unknown Rx HYDROcodone/APAP 5-325 [[place] 1 each PO Q6HR PRN #15 tablet 03/17/18 11/07/18 Unknown Rx 5/325] Metoclopramide [Reglan] 10 mg PO TID #21 tab 03/17/18 11/07/18 Unknown Rx Ondansetron [Zofran Odt] 4 mg PO Q4HR PRN #20 tab.rapdis 03/17/18 11/07/18 Unknown Rx Active Medications: Generic Name Dose Route Start Last Admin Trade Name Freq PRN Reason Stop Dose Admin Acetaminophen 650 mg 11/06/18 22:22 11/22/18 12:57 Tylenol FEEDTUBE 650 mg Q6H PRN Administration Fever >101 Lipase/Protease/Amylase 1 each 11/08/18 18:38 Pancreaze 10,500 Unit FEEDTUBE PRN PRN For Clogged Feeding Tube Apixaban 2.5 mg 11/20/18 22:00 11/22/18 22:47 Eliquis FEEDTUBE 2.5 mg BID MARIAJOSE Administration Chlorpromazine HCl 10 mg 11/07/18 08:07 11/22/18 12:56 Thorazine PO 10 mg Q6H PRN Administration Hiccups Clonazepam 0.5 mg 11/12/18 16:49 11/13/18 23:10 Klonopin PO 0.5 mg Q12H PRN Administration myoclonic jerks Dextrose 50 ml 11/07/18 16:46 11/10/18 23:43 D50w (25gm) Syringe IV 50 ml PRN PRN Administration Hypoglycemia Epoetin Enoc 20,000 unit 11/18/18 13:46 11/20/18 21:06 Procrit IV 20,000 unit MARY PRN Administration hemodialysis Fentanyl 50 mcg 11/06/18 08:37 Sublimaze IV Q10MIN PRN ANALGESIA Hydralazine HCl 10 mg 11/08/18 00:56 11/21/18 08:11 Apresoline IV 10 mg Q4H PRN Administration Hypertension Hydralazine HCl 50 mg 11/14/18 09:16 11/23/18 06:33 Apresoline PO 50 mg Q8HR MARIAJOSE Administration Hydrophilic Ointment 1 applic 11/06/18 08:26 11/10/18 19:52 Vaseline Lip Therapy TP 1 applic Q2HR PRN Administration Dry Lips Sodium Chloride 100 mls @ 999 mls/hr 11/14/18 11:33 Nacl 0.9% IV MARY PRN Hypotension Meropenem 500 mg in 50 mls @ 50 mls/hr 11/22/18 15:00 11/22/18 16:18 Merrem/Ns 500 Mg/50 Ml IV 50 mls/hr Q24H MARIAJOSE Administration Insulin Human Isoph/Insulin Regular 36 unit 11/22/18 08:00 11/22/18 08:57 Humulin 70/30 SUB-Q 36 unit QAMDIAB MARIAJOSE Administration Insulin Human Isoph/Insulin Regular 40 unit 11/21/18 17:00 11/22/18 17:38 Humulin 70/30 SUB-Q 40 unit QPMDIAB MARIAJOSE Administration Insulin Human Regular 0 units 11/07/18 18:00 11/23/18 06:33 Humulin R SUB-Q 10 units Q6HR MARIAJOSE Administration Protocol Labetalol HCl 10 mg 11/19/18 16:09 11/20/18 15:24 Normodyne IV 10 mg Q4H PRN Administration Hypertension Lansoprazole 30 mg 11/09/18 10:00 11/22/18 22:48 Prevacid Solutab FEEDTUBE 30 mg BID MARIAJOSE Administration Levetiracetam 750 mg 11/18/18 10:00 11/22/18 22:47 Keppra PO 750 mg BID MARIAJOSE Administration Lorazepam 2 mg 11/12/18 08:31 11/15/18 14:25 Ativan IV 2 mg Q4H PRN Administration Agitation Metoprolol Tartrate 50 mg 11/14/18 10:00 11/23/18 03:32 Lopressor PO 50 mg Q6H MARIAJOSE Administration Modafinil 200 mg 11/17/18 10:00 11/22/18 10:22 Provigil PO 200 mg QAM MARIAJOSE Administration Multi-Ingred Cream/Lotion/Oil/Oint 1 applic 11/06/18 08:26 Artificial Tears Ophth Oint OU Q4HR PRN Dry Eye(s) Simple Syrup 15 ml 11/08/18 18:38 Simple Syrup FEEDTUBE PRN PRN Hypoglycemia Simple Syrup 30 ml 11/08/18 18:38 Simple Syrup FEEDTUBE PRN PRN Hypoglycemia Sodium Bicarbonate 325 mg 11/08/18 18:38 Sodium Bicarbonate FEEDTUBE PRN PRN For Clogged Feeding Tube Sodium Chloride 10 ml 11/06/18 22:00 11/22/18 22:49 Sodium Chloride Flush Syringe 10 Ml IV 10 ml BID MARIAJOSE Administration Sodium Chloride 10 ml 11/06/18 12:42 11/13/18 10:30 Sodium Chloride Flush Syringe 10 Ml IV 10 ml PRN PRN Administration LINE FLUSH Tamsulosin HCl 0.4 mg 11/10/18 13:00 11/22/18 10:21 Flomax PO 0.4 mg QDAY MARIAJOSE Administration
[2018-11-23] MEDS: KEPPRA PO SCH ×2 (09:32→21:25)
[2018-11-23] MEDS: FLOMAX PO SCH (09:33)
[2018-11-23] MEDS: ELIQUIS FEEDTUBE SCH ×2 (09:33→21:24)
[2018-11-23] MEDS: PREVACID SOLUTAB FEEDTUBE SCH ×2 (09:33→21:24)
[2018-11-23] MEDS: PROVIGIL PO SCH (09:34)
[2018-11-23] MEDS: SODIUM CHLORIDE FLUSH SYRINGE 10 ML IV SCH ×2 (09:34→21:24)
[2018-11-23] MEDS: MERREM/NS 500 MG/50 ML 500 MG/50 ML BAG IV SCH (14:42)
--- NOTE | 2018-11-23 15:00 | Progress Note ---
Assessment and Plan Acute hypoxemic respiratory failure, on mechanical ventilator support. Diabetic ketoacidosis. Severe metabolic acidosis. Severe sepsis with shock. Acute encephalopathy that appears to be toxic metabolic. End-stage renal disease, on dialysis. Hyperkalemia at presentation. Diabetes. Peripheral vascular disease. Anemia that is macrocytic. Elevated serum transaminases, likely representing shock liver. Mild hyponatremia, pseudohyponatremia actually. Lactic acidosis. (AMS remains a rate limiting factor to safe extubation and he will likely need a tracheostomy) - Attempt t-piece trial in am (PSV if fails t-piece) - Bilateral lower ext dopplers re: VTE - repeat CT brain ordered - continue daily SAT's and SBT assessment as tolerated - prn sedation target for RASS 0 to -1 - continue to wean supplemental oxygen to keep O2 sats > 90% - EEG Impression noted re: [Anoxic brain injury with interval improvement of clinical status. I have reviewed the EEG which does not show any epileptiform activity or seizure activity. The background rhythm is a little slow other than that EEG is normal] - will follow clinically for a few more days before deciding on tracheostomy vs trial of extubation - continue Provigil - continue baclofen for myoclonic activity / hiccups - follow clinically off AB's for now ) - continue bronchodilators with pulmonary hygiene per RT - Lung protective strategies - VAP bundle addressed - continue HD/UF as tolerated for toxin and volume clearance - neurology evaluation ongoing - Monitor renal indices closely - continue to avoid nephrotoxic agents, adjust all medications for CrCL - Strict intake and output monitoring - continue enteral nutrition as tolerated - continue accuchecks with glycemic control per SSI for target glucose of 140- 180 mg/dL - Maintenance of sleep -wake cycle - Mobility protocol for pressure ulcer prophylaxis - continue GI & VTE prophylaxis - Influenza and pneumonia vaccination per protocol - discharge planning ongoing concurrently .... re-evaluate in am & prn PROGNOSIS: GUARDED CONDITION: CRITICAL CODE STATUS: FULL CODE The high probability of a clinically significant, sudden or life-threatening deterioration of the [respiratory, neurology, renal] system(s) required my full and direct attention, intervention and personal management. The aggregate critical care time was [34] minutes without overlap. Time includes spent on; [x] Data Review and interpretation [x] Patient assessment and monitoring of vital signs [x] Documentation [x] Medication orders and management Subjective Date of service: 11/23/18 Principal diagnosis: Ac hypoxemic resp failure; DKA; Severe sepsis with shock; ESRD on dialysis Interval history: Patient is seen today for: Acute hypoxemic respiratory failure on MVS; DKA; Severe metabolic acidosis; Severe sepsis with shock; Acute encephalopathy that appears to be toxic metabolic; ESRD on dialysis; DM II; Peripheral vascular disease. Seen and examined at bedside; 24hour events reviewed; nursing and respiratory care staff consulted; no adverse overnight events reported to me; remains on MVS; on PSV trial; appears to be more alert; No emesis or overt aspiration; no seizures Objective Vital Signs - 12hr 11/23/18 11/23/18 11/23/18 03:00 03:30 03:32 Temperature Pulse Rate 113 H 114 H 113 H Pulse Rate [ From Monitor] Respiratory 14 21 Rate Respiratory Rate [ Generalized] Blood Pressure 145/83 154/71 154/71 O2 Sat by Pulse 100 98 Oximetry 11/23/18 11/23/18 11/23/18 04:00 04:30 04:42 Temperature 98.7 F Pulse Rate 108 H 102 H 111 H Pulse Rate [ From Monitor] Respiratory 24 22 Rate Respiratory Rate [ Generalized] Blood Pressure 147/80 143/77 154/71 O2 Sat by Pulse 99 98 98 Oximetry 11/23/18 11/23/18 11/23/18 05:00 05:30 06:00 Temperature Pulse Rate 102 H 104 H 104 H Pulse Rate [ From Monitor] Respiratory 22 21 24 Rate Respiratory Rate [ Generalized] Blood Pressure 139/75 144/69 148/76 O2 Sat by Pulse 99 99 100 Oximetry 11/23/18 11/23/18 11/23/18 06:30 06:33 07:00 Temperature Pulse Rate 108 H 11 L 102 H Pulse Rate [ From Monitor] Respiratory 18 23 Rate Respiratory Rate [ Generalized] Blood Pressure 144/75 144/75 128/65 O2 Sat by Pulse 100 99 Oximetry 11/23/18 11/23/18 11/23/18 07:30 08:00 08:30 Temperature 98.0 F Pulse Rate 106 H 110 H 102 H Pulse Rate [ 107 H From Monitor] Respiratory 23 24 20 Rate Respiratory Rate [ Generalized] Blood Pressure 139/73 126/69 118/60 O2 Sat by Pulse 99 100 100 Oximetry 11/23/18 11/23/18 11/23/18 09:00 09:30 09:33 Temperature Pulse Rate 114 H 110 H 108 H Pulse Rate [ From Monitor] Respiratory 19 22 Rate Respiratory Rate [ Generalized] Blood Pressure 157/83 137/67 137/67 O2 Sat by Pulse 100 99 Oximetry 11/23/18 11/23/18 11/23/18 10:00 10:15 10:30 Temperature Pulse Rate 98 H 111 H 102 H Pulse Rate [ From Monitor] Respiratory 19 38 H 24 Rate Respiratory 24 Rate [ Generalized] Blood Pressure 110/55 172/75 159/71 O2 Sat by Pulse 100 100 100 Oximetry 11/23/18 11/23/18 11/23/18 11:00 11:30 12:00 Temperature 99.9 F H Pulse Rate 101 H 102 H 105 H Pulse Rate [ 112 H From Monitor] Respiratory 26 H 23 32 H Rate Respiratory Rate [ Generalized] Blood Pressure 143/83 137/79 161/65 O2 Sat by Pulse 100 100 100 Oximetry 11/23/18 11/23/18 11/23/18 12:30 13:00 13:30 Temperature Pulse Rate 97 H 106 H 108 H Pulse Rate [ From Monitor] Respiratory 28 H 20 28 H Rate Respiratory Rate [ Generalized] Blood Pressure 114/65 137/75 162/80 O2 Sat by Pulse 99 100 100 Oximetry 11/23/18 11/23/18 14:00 14:36 Temperature Pulse Rate 110 H 105 H Pulse Rate [ From Monitor] Respiratory 35 H Rate Respiratory Rate [ Generalized] Blood Pressure 172/75 174/95 O2 Sat by Pulse 100 Oximetry Constitutional: appears uncomfortable, other (middle aged AAM, normocephalic and atraumatic on MVS) Eyes: non-icteric ENT: oropharynx moist, other (s/p tracheostomy) Neck: supple, no lymphadenopathy, no JVD Effort: mildly labored Ascultation: Bilateral: diminished breath sounds, rhonchi Percussion: Bilateral: not dull Cardiovascular: regular rate and rhythm Gastrointestinal: normoactive bowel sounds, soft, non-tender, non-distended Integumentary: rash Extremities: no cyanosis, pulses normal, no ischemia or petechiae, edema Neurologic: pupils equal and round (minimally reactive), unable to assess, other (incresased spontaneous eye opening) Psychiatric: other (unable to assess re: AMS) CBC and BMP: 11/24/18 05:18 11/24/18 05:18 ABG, PT/INR, D-dimer: ABG POC ABG pH 7.473 (7.35-7.45) H 11/21/18 10:45 POC ABG pCO2 45.0 (35-45) 11/21/18 10:45 POC ABG pO2 121 (80-105) H 11/21/18 10:45 POC ABG HCO3 33.0 (22-26 mml/L) 11/21/18 10:45 POC ABG Total CO2 34 (23-27mmol/L) 11/21/18 10:45 POC ABG O2 Sat 99 11/21/18 10:45 Abnormal lab findings: Abnormal Labs 11/06/18 11/06/18 11/06/18 08:22 09:02 09:02 WBC 20.1 H RBC 3.40 L Hgb 10.5 L Hct MCV 119 H MCHC 26 L RDW 15.7 H Plt Count Lymph % (Auto) [place] % (Auto) Lymph # [place] # Seg Neutrophils % 80.1 H Seg Neuts % (Manual) 76.0 H Lymphocytes % (Manual) 4.0 L Monocytes % (Manual) Nucleated RBC % 1.0 H Seg Neutrophils # 16.1 H Seg Neutrophils # Man 15.3 H Lymphocytes # (Manual) 0.8 L Monocytes # (Manual) POC ABG pH POC ABG pCO2 POC ABG pO2 VBG pH Sodium 129 L Potassium 7.7 H* Chloride 79.7 L Carbon Dioxide 4 L* BUN 93 H Creatinine 7.4 H Glucose 1469 H* POC Glucose > 500 H Hemoglobin A1c Lactic Acid Calcium Phosphorus Magnesium Direct Bilirubin AST 2679 H ALT 1175 H C-Reactive Protein Total Protein 6.1 L Albumin 2.9 L Urine WBC (Auto) Salicylates Acetaminophen Heparin-induced Plt Ab 11/06/18 11/06/18 11/06/18 09:02 09:02 09:02 WBC RBC Hgb Hct MCV MCHC RDW Plt Count Lymph % (Auto) [place] % (Auto) Lymph # [place] # Seg Neutrophils % Seg Neuts % (Manual) Lymphocytes % (Manual) Monocytes % (Manual) Nucleated RBC % Seg Neutrophils # Seg Neutrophils # Man Lymphocytes # (Manual) Monocytes # (Manual) POC ABG pH POC ABG pCO2 POC ABG pO2 VBG pH Sodium Potassium Chloride Carbon Dioxide BUN Creatinine Glucose POC Glucose Hemoglobin A1c Lactic Acid 9.40 H* Calcium Phosphorus Magnesium Direct Bilirubin AST ALT C-Reactive Protein Total Protein Albumin Urine WBC (Auto) Salicylates < 0.3 L Acetaminophen < 5.0 L Heparin-induced Plt Ab 11/06/18 11/06/18 11/06/18 09:03 10:19 10:19 WBC RBC Hgb Hct MCV MCHC RDW Plt Count Lymph % (Auto) [place] % (Auto) Lymph # [place] # Seg Neutrophils % Seg Neuts % (Manual) Lymphocytes % (Manual) Monocytes % (Manual) Nucleated RBC % Seg Neutrophils # Seg Neutrophils # Man Lymphocytes # (Manual) Monocytes # (Manual) POC ABG pH 6.841 L POC ABG pCO2 POC ABG pO2 VBG pH Sodium 131 L Potassium 8.9 H* Chloride 85.3 L Carbon Dioxide 6 L* BUN 90 H Creatinine 7.1 H Glucose 1353 H* POC Glucose Hemoglobin A1c Lactic Acid Calcium 7.8 L Phosphorus 14.50 H Magnesium 2.70 H Direct Bilirubin AST ALT C-Reactive Protein Total Protein Albumin Urine WBC (Auto) Salicylates Acetaminophen Heparin-induced Plt Ab 11/06/18 11/06/18 11/06/18 12:07 13:22 13:22 WBC RBC Hgb Hct MCV MCHC RDW Plt Count Lymph % (Auto) [place] % (Auto) Lymph # [place] # Seg Neutrophils % Seg Neuts % (Manual) Lymphocytes % (Manual) Monocytes % (Manual) Nucleated RBC % Seg Neutrophils # Seg Neutrophils # Man Lymphocytes # (Manual) Monocytes # (Manual) POC ABG pH POC ABG pCO2 POC ABG pO2 VBG pH 6.982 L* Sodium 135 L Potassium 7.0 H* D Chloride 88.4 L Carbon Dioxide 5 L* BUN 89 H Creatinine 7.2 H Glucose 1326 H* POC Glucose Hemoglobin A1c Lactic Acid 8.50 H* Calcium Phosphorus Magnesium Direct Bilirubin AST ALT C-Reactive Protein Total Protein Albumin Urine WBC (Auto) Salicylates Acetaminophen Heparin-induced Plt Ab 11/06/18 11/06/18 11/06/18 14:15 14:15 15:21 WBC RBC Hgb Hct MCV MCHC RDW Plt Count Lymph % (Auto) [place] % (Auto) Lymph # [place] # Seg Neutrophils % Seg Neuts % (Manual) Lymphocytes % (Manual) Monocytes % (Manual) Nucleated RBC % Seg Neutrophils # Seg Neutrophils # Man Lymphocytes # (Manual) Monocytes # (Manual) POC ABG pH POC ABG pCO2 POC ABG pO2 VBG pH Sodium Potassium 6.6 H* 6.0 H Chloride 95.3 L 93.3 L Carbon Dioxide 4 L* 6 L* BUN 83 H 91 H Creatinine 6.9 H 7.3 H Glucose 1205 H* 1174 H* POC Glucose Hemoglobin A1c Lactic Acid Calcium 8.2 L Phosphorus 13.00 H Magnesium 2.60 H Direct Bilirubin AST ALT C-Reactive Protein Total Protein Albumin Urine WBC (Auto) Salicylates Acetaminophen Heparin-induced Plt Ab 11/06/18 11/06/18 11/06/18 15:21 16:14 16:33 WBC RBC Hgb Hct MCV MCHC RDW Plt Count Lymph % (Auto) [place] % (Auto) Lymph # [place] # Seg Neutrophils % Seg Neuts % (Manual) Lymphocytes % (Manual) Monocytes % (Manual) Nucleated RBC % Seg Neutrophils # Seg Neutrophils # Man Lymphocytes # (Manual) Monocytes # (Manual) POC ABG pH 7.004 L POC ABG pCO2 33.0 L POC ABG pO2 178 H VBG pH Sodium Potassium Chloride Carbon Dioxide BUN Creatinine Glucose POC Glucose > 500 H Hemoglobin A1c Lactic Acid 7.60 H* Calcium Phosphorus Magnesium Direct Bilirubin AST ALT C-Reactive Protein Total Protein Albumin Urine WBC (Auto) Salicylates Acetaminophen Heparin-induced Plt Ab 11/06/18 11/06/18 11/06/18 17:34 19:30 19:30 WBC RBC Hgb Hct MCV MCHC RDW Plt Count Lymph % (Auto) [place] % (Auto) Lymph # [place] # Seg Neutrophils % Seg Neuts % (Manual) Lymphocytes % (Manual) Monocytes % (Manual) Nucleated RBC % Seg Neutrophils # Seg Neutrophils # Man Lymphocytes # (Manual) Monocytes # (Manual) POC ABG pH POC ABG pCO2 POC ABG pO2 VBG pH Sodium Potassium 5.5 H Chloride 97.4 L 97.7 L Carbon Dioxide 10 L 11 L BUN 88 H 87 H Creatinine 7.5 H 7.6 H Glucose 1054 H* 954 H* POC Glucose Hemoglobin A1c Lactic Acid Calcium 7.7 L 7.4 L Phosphorus Magnesium Direct Bilirubin AST ALT C-Reactive Protein 1.90 H Total Protein Albumin Urine WBC (Auto) Salicylates Acetaminophen Heparin-induced Plt Ab 11/06/18 11/06/18 11/06/18 20:31 20:40 20:40 WBC RBC Hgb Hct MCV MCHC RDW Plt Count Lymph % (Auto) [place] % (Auto) Lymph # [place] # Seg Neutrophils % Seg Neuts % (Manual) Lymphocytes % (Manual) Monocytes % (Manual) Nucleated RBC % Seg Neutrophils # Seg Neutrophils # Man Lymphocytes # (Manual) Monocytes # (Manual) POC ABG pH 7.245 L POC ABG pCO2 POC ABG pO2 132 H VBG pH Sodium Potassium Chloride Carbon Dioxide BUN Creatinine Glucose 907 H* POC Glucose Hemoglobin A1c Lactic Acid 4.40 H* Calcium Phosphorus Magnesium Direct Bilirubin AST ALT C-Reactive Protein Total Protein Albumin Urine WBC (Auto) Salicylates Acetaminophen Heparin-induced Plt Ab 11/06/18 11/06/18 11/06/18 22:05 22:40 23:35 WBC RBC Hgb Hct MCV MCHC RDW Plt Count Lymph % (Auto) [place] % (Auto) Lymph # [place] # Seg Neutrophils % Seg Neuts % (Manual) Lymphocytes % (Manual) Monocytes % (Manual) Nucleated RBC % Seg Neutrophils # Seg Neutrophils # Man Lymphocytes # (Manual) Monocytes # (Manual) POC ABG pH POC ABG pCO2 POC ABG pO2 VBG pH Sodium Potassium Chloride Carbon Dioxide 13 L BUN 86 H Creatinine 7.8 H Glucose 822 H* 726 H* POC Glucose Hemoglobin A1c Lactic Acid 3.40 H* Calcium 7.5 L Phosphorus Magnesium Direct Bilirubin AST ALT C-Reactive Protein Total Protein Albumin Urine WBC (Auto) Salicylates Acetaminophen Heparin-induced Plt Ab 11/07/18 11/07/18 11/07/18 01:25 01:26 03:15 WBC RBC Hgb Hct MCV MCHC RDW Plt Count Lymph % (Auto) [place] % (Auto) Lymph # [place] # Seg Neutrophils % Seg Neuts % (Manual) Lymphocytes % (Manual) Monocytes % (Manual) Nucleated RBC % Seg Neutrophils # Seg Neutrophils # Man Lymphocytes # (Manual) Monocytes # (Manual) POC ABG pH POC ABG pCO2 POC ABG pO2 VBG pH Sodium Potassium Chloride Carbon Dioxide BUN Creatinine Glucose 602 H* POC Glucose > 500 H > 500 H Hemoglobin A1c Lactic Acid Calcium Phosphorus Magnesium Direct Bilirubin AST ALT C-Reactive Protein Total Protein Albumin Urine WBC (Auto) Salicylates Acetaminophen Heparin-induced Plt Ab 11/07/18 11/07/18 11/07/18 03:20 04:32 04:47 WBC RBC Hgb Hct MCV MCHC RDW Plt Count Lymph % (Auto) [place] % (Auto) Lymph # [place] # Seg Neutrophils % Seg Neuts % (Manual) Lymphocytes % (Manual) Monocytes % (Manual) Nucleated RBC % Seg Neutrophils # Seg Neutrophils # Man Lymphocytes # (Manual) Monocytes # (Manual) POC ABG pH POC ABG pCO2 30.3 L POC ABG pO2 153 H VBG pH Sodium 149 H Potassium Chloride Carbon Dioxide 16 L BUN 86 H Creatinine 8.3 H Glucose 499.2 H POC Glucose 360 H Hemoglobin A1c Lactic Acid Calcium 7.6 L Phosphorus Magnesium Direct Bilirubin AST ALT C-Reactive Protein Total Protein Albumin Urine WBC (Auto) Salicylates Acetaminophen Heparin-induced Plt Ab 11/07/18 11/07/18 11/07/18 05:26 06:35 06:36 WBC RBC Hgb Hct MCV MCHC RDW Plt Count Lymph % (Auto) [place] % (Auto) Lymph # [place] # Seg Neutrophils % Seg Neuts % (Manual) Lymphocytes % (Manual) Monocytes % (Manual) Nucleated RBC % Seg Neutrophils # Seg Neutrophils # Man Lymphocytes # (Manual) Monocytes # (Manual) POC ABG pH POC ABG pCO2 POC ABG pO2 VBG pH Sodium 153 H Potassium 3.2 L Chloride 109.7 H Carbon Dioxide BUN 84 H Creatinine 8.6 H Glucose 249 H POC Glucose 341 H 274 H Hemoglobin A1c Lactic Acid Calcium 7.6 L Phosphorus Magnesium Direct Bilirubin AST ALT C-Reactive Protein Total Protein Albumin Urine WBC (Auto) Salicylates Acetaminophen Heparin-induced Plt Ab 11/07/18 11/07/18 11/07/18 07:33 09:00 09:52 WBC RBC Hgb Hct MCV MCHC RDW Plt Count Lymph % (Auto) [place] % (Auto) Lymph # [place] # Seg Neutrophils % Seg Neuts % (Manual) Lymphocytes % (Manual) Monocytes % (Manual) Nucleated RBC % Seg Neutrophils # Seg Neutrophils # Man Lymphocytes # (Manual) Monocytes # (Manual) POC ABG pH POC ABG pCO2 POC ABG pO2 VBG pH Sodium Potassium Chloride Carbon Dioxide BUN Creatinine Glucose POC Glucose 243 H 182 H 227 H Hemoglobin A1c Lactic Acid Calcium Phosphorus Magnesium Direct Bilirubin AST ALT C-Reactive Protein Total Protein Albumin Urine WBC (Auto) Salicylates Acetaminophen Heparin-induced Plt Ab 11/07/18 11/07/18 11/07/18 10:50 10:50 10:50 WBC 11.3 H RBC 2.85 L Hgb 8.7 L Hct 25.3 L D MCV MCHC RDW Plt Count Lymph % (Auto) 9.7 L [place] % (Auto) Lymph # 1.1 L [place] # Seg Neutrophils % 83.3 H Seg Neuts % (Manual) Lymphocytes % (Manual) Monocytes % (Manual) Nucleated RBC % Seg Neutrophils # 9.4 H Seg Neutrophils # Man Lymphocytes # (Manual) Monocytes # (Manual) POC ABG pH POC ABG pCO2 POC ABG pO2 VBG pH Sodium 154 H Potassium 3.2 L Chloride 110.2 H Carbon Dioxide BUN 82 H Creatinine 8.3 H Glucose 186 H POC Glucose 200 H Hemoglobin A1c Lactic Acid Calcium 7.3 L Phosphorus Magnesium Direct Bilirubin AST ALT C-Reactive Protein Total Protein Albumin Urine WBC (Auto) Salicylates Acetaminophen Heparin-induced Plt Ab 11/07/18 11/07/18 11/07/18 12:00 12:05 13:13 WBC RBC Hgb Hct MCV MCHC RDW Plt Count Lymph % (Auto) [place] % (Auto) Lymph # [place] # Seg Neutrophils % Seg Neuts % (Manual) Lymphocytes % (Manual) Monocytes % (Manual) Nucleated RBC % Seg Neutrophils # Seg Neutrophils # Man Lymphocytes # (Manual) Monocytes # (Manual) POC ABG pH POC ABG pCO2 POC ABG pO2 VBG pH Sodium Potassium Chloride Carbon Dioxide BUN Creatinine Glucose POC Glucose 179 H 190 H Hemoglobin A1c Lactic Acid 2.50 H* Calcium Phosphorus Magnesium Direct Bilirubin AST ALT C-Reactive Protein Total Protein Albumin Urine WBC (Auto) Salicylates Acetaminophen Heparin-induced Plt Ab 11/07/18 11/07/18 11/07/18 13:20 14:05 15:18 WBC RBC Hgb Hct MCV MCHC RDW Plt Count Lymph % (Auto) [place] % (Auto) Lymph # [place] # Seg Neutrophils % Seg Neuts % (Manual) Lymphocytes % (Manual) Monocytes % (Manual) Nucleated RBC % Seg Neutrophils # Seg Neutrophils # Man Lymphocytes # (Manual) Monocytes # (Manual) POC ABG pH POC ABG pCO2 POC ABG pO2 VBG pH Sodium Potassium 3.1 L Chloride Carbon Dioxide BUN 50 H Creatinine 5.0 H Glucose 176 H POC Glucose 189 H 215 H Hemoglobin A1c Lactic Acid Calcium 7.4 L Phosphorus Magnesium Direct Bilirubin AST ALT C-Reactive Protein Total Protein Albumin Urine WBC (Auto) Salicylates Acetaminophen Heparin-induced Plt Ab 11/07/18 11/07/18 11/07/18 16:25 17:37 23:23 WBC RBC Hgb Hct MCV MCHC RDW Plt Count Lymph % (Auto) [place] % (Auto) Lymph # [place] # Seg Neutrophils % Seg Neuts % (Manual) Lymphocytes % (Manual) Monocytes % (Manual) Nucleated RBC % Seg Neutrophils # Seg Neutrophils # Man Lymphocytes # (Manual) Monocytes # (Manual) POC ABG pH POC ABG pCO2 POC ABG pO2 VBG pH Sodium Potassium Chloride Carbon Dioxide BUN Creatinine Glucose POC Glucose 180 H 215 H 234 H Hemoglobin A1c Lactic Acid Calcium Phosphorus Magnesium Direct Bilirubin AST ALT C-Reactive Protein Total Protein Albumin Urine WBC (Auto) Salicylates Acetaminophen Heparin-induced Plt Ab 11/08/18 11/08/18 11/08/18 04:17 04:23 04:23 WBC RBC 2.98 L Hgb 9.3 L Hct 26.7 L MCV MCHC 35 H RDW Plt Count 130 L Lymph % (Auto) [place] % (Auto) Lymph # [place] # Seg Neutrophils % 80.3 H Seg Neuts % (Manual) Lymphocytes % (Manual) Monocytes % (Manual) Nucleated RBC % Seg Neutrophils # 7.8 H Seg Neutrophils # Man Lymphocytes # (Manual) Monocytes # (Manual) POC ABG pH 7.520 H POC ABG pCO2 POC ABG pO2 111 H VBG pH Sodium Potassium 3.0 L Chloride Carbon Dioxide BUN 44 H Creatinine 6.3 H Glucose 245 H POC Glucose Hemoglobin A1c Lactic Acid Calcium 7.3 L Phosphorus Magnesium Direct Bilirubin AST ALT C-Reactive Protein Total Protein Albumin Urine WBC (Auto) Salicylates Acetaminophen Heparin-induced Plt Ab 11/08/18 11/08/18 11/08/18 05:19 08:00 08:00 WBC RBC Hgb Hct MCV MCHC RDW Plt Count Lymph % (Auto) [place] % (Auto) Lymph # [place] # Seg Neutrophils % Seg Neuts % (Manual) Lymphocytes % (Manual) Monocytes % (Manual) Nucleated RBC % Seg Neutrophils # Seg Neutrophils # Man Lymphocytes # (Manual) Monocytes # (Manual) POC ABG pH POC ABG pCO2 POC ABG pO2 VBG pH Sodium Potassium Chloride Carbon Dioxide BUN Creatinine Glucose POC Glucose 253 H Hemoglobin A1c Lactic Acid 2.70 H* Calcium Phosphorus Magnesium Direct Bilirubin 0.3 H AST 932 H ALT 582 H C-Reactive Protein Total Protein 5.4 L Albumin 2.6 L Urine WBC (Auto) Salicylates Acetaminophen Heparin-induced Plt Ab 11/08/18 11/08/18 11/08/18 11:36 17:51 21:59 WBC RBC Hgb Hct MCV MCHC RDW Plt Count Lymph % (Auto) [place] % (Auto) Lymph # [place] # Seg Neutrophils % Seg Neuts % (Manual) Lymphocytes % (Manual) Monocytes % (Manual) Nucleated RBC % Seg Neutrophils # Seg Neutrophils # Man Lymphocytes # (Manual) Monocytes # (Manual) POC ABG pH 7.459 H POC ABG pCO2 POC ABG pO2 108 H VBG pH Sodium Potassium Chloride Carbon Dioxide BUN Creatinine Glucose POC Glucose 197 H Hemoglobin A1c Lactic Acid Calcium Phosphorus Magnesium Direct Bilirubin AST ALT C-Reactive Protein Total Protein Albumin Urine WBC (Auto) Salicylates Acetaminophen Heparin-induced Plt Ab Positive H 11/08/18 11/09/18 11/09/18 23:28 00:39 02:20 WBC RBC Hgb Hct MCV MCHC RDW Plt Count Lymph % (Auto) [place] % (Auto) Lymph # [place] # Seg Neutrophils % Seg Neuts % (Manual) Lymphocytes % (Manual) Monocytes % (Manual) Nucleated RBC % Seg Neutrophils # Seg Neutrophils # Man Lymphocytes # (Manual) Monocytes # (Manual) POC ABG pH POC ABG pCO2 POC ABG pO2 VBG pH Sodium Potassium Chloride Carbon Dioxide BUN Creatinine Glucose POC Glucose 418 H 471 H 254 H Hemoglobin A1c Lactic Acid Calcium Phosphorus Magnesium Direct Bilirubin AST ALT C-Reactive Protein Total Protein Albumin Urine WBC (Auto) Salicylates Acetaminophen Heparin-induced Plt Ab 11/09/18 11/09/18 11/09/18 03:48 06:02 06:02 WBC RBC 2.95 L Hgb 9.2 L Hct 26.7 L MCV MCHC RDW Plt Count 101 L Lymph % (Auto) [place] % (Auto) Lymph # [place] # Seg Neutrophils % Seg Neuts % (Manual) Lymphocytes % (Manual) Monocytes % (Manual) Nucleated RBC % Seg Neutrophils # Seg Neutrophils # Man Lymphocytes # (Manual) Monocytes # (Manual) POC ABG pH POC ABG pCO2 POC ABG pO2 108 H VBG pH Sodium 150 H Potassium Chloride 108.3 H Carbon Dioxide BUN 44 H Creatinine 7.7 H Glucose 102 H POC Glucose Hemoglobin A1c Lactic Acid Calcium 7.2 L Phosphorus Magnesium Direct Bilirubin AST 554 H ALT 461 H C-Reactive Protein Total Protein 5.1 L Albumin 2.6 L Urine WBC (Auto) Salicylates Acetaminophen Heparin-induced Plt Ab 11/09/18 11/09/18 11/09/18 17:49 18:49 23:32 WBC RBC Hgb Hct MCV MCHC RDW Plt Count Lymph % (Auto) [place] % (Auto) Lymph # [place] # Seg Neutrophils % Seg Neuts % (Manual) Lymphocytes % (Manual) Monocytes % (Manual) Nucleated RBC % Seg Neutrophils # Seg Neutrophils # Man Lymphocytes # (Manual) Monocytes # (Manual) POC ABG pH POC ABG pCO2 46.2 H POC ABG pO2 VBG pH Sodium Potassium Chloride Carbon Dioxide BUN Creatinine Glucose POC Glucose 184 H 150 H Hemoglobin A1c Lactic Acid Calcium Phosphorus Magnesium Direct Bilirubin AST ALT C-Reactive Protein Total Protein Albumin Urine WBC (Auto) Salicylates Acetaminophen Heparin-induced Plt Ab 11/10/18 11/10/18 11/10/18 02:52 05:00 05:00 WBC RBC 2.95 L Hgb 8.9 L Hct 26.6 L MCV MCHC RDW Plt Count 100 L Lymph % (Auto) [place] % (Auto) Lymph # [place] # Seg Neutrophils % Seg Neuts % (Manual) Lymphocytes % (Manual) Monocytes % (Manual) 8.0 H Nucleated RBC % Seg Neutrophils # Seg Neutrophils # Man Lymphocytes # (Manual) Monocytes # (Manual) POC ABG pH POC ABG pCO2 POC ABG pO2 VBG pH Sodium Potassium Chloride Carbon Dioxide BUN 33 H Creatinine 6.8 H Glucose 251 H POC Glucose 186 H Hemoglobin A1c Lactic Acid Calcium 7.3 L Phosphorus Magnesium Direct Bilirubin AST ALT C-Reactive Protein Total Protein Albumin Urine WBC (Auto) Salicylates Acetaminophen Heparin-induced Plt Ab 11/10/18 11/10/18 11/10/18 05:16 11:47 17:32 WBC RBC Hgb Hct MCV MCHC RDW Plt Count Lymph % (Auto) [place] % (Auto) Lymph # [place] # Seg Neutrophils % Seg Neuts % (Manual) Lymphocytes % (Manual) Monocytes % (Manual) Nucleated RBC % Seg Neutrophils # Seg Neutrophils # Man Lymphocytes # (Manual) Monocytes # (Manual) POC ABG pH POC ABG pCO2 POC ABG pO2 VBG pH Sodium Potassium Chloride Carbon Dioxide BUN Creatinine Glucose POC Glucose 242 H 261 H 194 H Hemoglobin A1c Lactic Acid Calcium Phosphorus Magnesium Direct Bilirubin AST ALT C-Reactive Protein Total Protein Albumin Urine WBC (Auto) Salicylates Acetaminophen Heparin-induced Plt Ab 11/10/18 11/11/18 11/11/18 23:39 00:26 04:24 WBC RBC 2.98 L Hgb 9.1 L Hct 27.4 L MCV MCHC RDW Plt Count 114 L Lymph % (Auto) [place] % (Auto) Lymph # [place] # Seg Neutrophils % Seg Neuts % (Manual) Lymphocytes % (Manual) Monocytes % (Manual) 10.0 H Nucleated RBC % Seg Neutrophils # Seg Neutrophils # Man Lymphocytes # (Manual) Monocytes # (Manual) 1.0 H POC ABG pH POC ABG pCO2 POC ABG pO2 VBG pH Sodium Potassium Chloride Carbon Dioxide BUN Creatinine Glucose POC Glucose 60 L 124 H Hemoglobin A1c Lactic Acid Calcium Phosphorus Magnesium Direct Bilirubin AST ALT C-Reactive Protein Total Protein Albumin Urine WBC (Auto) Salicylates Acetaminophen Heparin-induced Plt Ab 11/11/18 11/11/18 11/11/18 04:24 05:27 05:31 WBC RBC Hgb Hct MCV MCHC RDW Plt Count Lymph % (Auto) [place] % (Auto) Lymph # [place] # Seg Neutrophils % Seg Neuts % (Manual) Lymphocytes % (Manual) Monocytes % (Manual) Nucleated RBC % Seg Neutrophils # Seg Neutrophils # Man Lymphocytes # (Manual) Monocytes # (Manual) POC ABG pH POC ABG pCO2 48.8 H POC ABG pO2 109 H VBG pH Sodium Potassium Chloride Carbon Dioxide BUN 23 H Creatinine 5.5 H Glucose 147 H POC Glucose 172 H Hemoglobin A1c Lactic Acid Calcium 7.9 L Phosphorus Magnesium Direct Bilirubin AST 152 H ALT 247 H C-Reactive Protein Total Protein Albumin 2.3 L Urine WBC (Auto) Salicylates Acetaminophen Heparin-induced Plt Ab 11/11/18 11/11/18 11/11/18 12:11 17:12 23:41 WBC RBC Hgb Hct MCV MCHC RDW Plt Count Lymph % (Auto) [place] % (Auto) Lymph # [place] # Seg Neutrophils % Seg Neuts % (Manual) Lymphocytes % (Manual) Monocytes % (Manual) Nucleated RBC % Seg Neutrophils # Seg Neutrophils # Man Lymphocytes # (Manual) Monocytes # (Manual) POC ABG pH POC ABG pCO2 POC ABG pO2 VBG pH Sodium Potassium Chloride Carbon Dioxide BUN Creatinine Glucose POC Glucose 343 H 188 H 145 H Hemoglobin A1c Lactic Acid Calcium Phosphorus Magnesium Direct Bilirubin AST ALT C-Reactive Protein Total Protein Albumin Urine WBC (Auto) Salicylates Acetaminophen Heparin-induced Plt Ab 11/12/18 11/12/18 11/12/18 00:11 04:44 04:44 WBC RBC 2.91 L Hgb 9.0 L Hct 26.9 L MCV MCHC RDW Plt Count Lymph % (Auto) 12.7 L [place] % (Auto) 14.9 H Lymph # 0.8 L [place] # 1.0 H Seg Neutrophils % 71.2 H Seg Neuts % (Manual) Lymphocytes % (Manual) Monocytes % (Manual) Nucleated RBC % Seg Neutrophils # Seg Neutrophils # Man Lymphocytes # (Manual) Monocytes # (Manual) POC ABG pH POC ABG pCO2 POC ABG pO2 VBG pH Sodium Potassium Chloride Carbon Dioxide BUN 22 H Creatinine 5.0 H Glucose 288 H POC Glucose 151 H Hemoglobin A1c Lactic Acid Calcium Phosphorus Magnesium Direct Bilirubin AST 88 H ALT 187 H C-Reactive Protein Total Protein Albumin 2.9 L Urine WBC (Auto) Salicylates Acetaminophen Heparin-induced Plt Ab 11/12/18 11/12/18 11/12/18 11:48 12:28 17:13 WBC RBC Hgb Hct MCV MCHC RDW Plt Count Lymph % (Auto) [place] % (Auto) Lymph # [place] # Seg Neutrophils % Seg Neuts % (Manual) Lymphocytes % (Manual) Monocytes % (Manual) Nucleated RBC % Seg Neutrophils # Seg Neutrophils # Man Lymphocytes # (Manual) Monocytes # (Manual) POC ABG pH POC ABG pCO2 POC ABG pO2 VBG pH Sodium Potassium Chloride Carbon Dioxide BUN Creatinine Glucose POC Glucose 414 H 437 H 251 H Hemoglobin A1c Lactic Acid Calcium Phosphorus Magnesium Direct Bilirubin AST ALT C-Reactive Protein Total Protein Albumin Urine WBC (Auto) Salicylates Acetaminophen Heparin-induced Plt Ab 11/13/18 11/13/18 11/13/18 00:43 04:14 04:14 WBC RBC 2.62 L Hgb 8.0 L Hct 24.0 L MCV MCHC RDW Plt Count Lymph % (Auto) [place] % (Auto) 15.8 H Lymph # [place] # 0.9 H Seg Neutrophils % Seg Neuts % (Manual) Lymphocytes % (Manual) Monocytes % (Manual) Nucleated RBC % Seg Neutrophils # Seg Neutrophils # Man Lymphocytes # (Manual) Monocytes # (Manual) POC ABG pH POC ABG pCO2 POC ABG pO2 VBG pH Sodium Potassium Chloride Carbon Dioxide BUN 32 H Creatinine 6.9 H Glucose 190 H POC Glucose 149 H Hemoglobin A1c Lactic Acid Calcium Phosphorus Magnesium Direct Bilirubin AST ALT C-Reactive Protein Total Protein Albumin Urine WBC (Auto) Salicylates Acetaminophen Heparin-induced Plt Ab 11/13/18 11/13/18 11/13/18 05:53 10:40 12:05 WBC RBC Hgb Hct MCV MCHC RDW Plt Count Lymph % (Auto) [place] % (Auto) Lymph # [place] # Seg Neutrophils % Seg Neuts % (Manual) Lymphocytes % (Manual) Monocytes % (Manual) Nucleated RBC % Seg Neutrophils # Seg Neutrophils # Man Lymphocytes # (Manual) Monocytes # (Manual) POC ABG pH POC ABG pCO2 POC ABG pO2 VBG pH Sodium Potassium Chloride Carbon Dioxide BUN Creatinine Glucose POC Glucose 270 H 405 H 361 H Hemoglobin A1c Lactic Acid Calcium Phosphorus Magnesium Direct Bilirubin AST ALT C-Reactive Protein Total Protein Albumin Urine WBC (Auto) Salicylates Acetaminophen Heparin-induced Plt Ab 11/13/18 11/13/18 11/14/18 18:48 23:55 04:57 WBC RBC 2.75 L Hgb 8.3 L Hct 25.2 L MCV MCHC RDW Plt Count Lymph % (Auto) [place] % (Auto) 15.8 H Lymph # 0.9 L [place] # 0.9 H Seg Neutrophils % Seg Neuts % (Manual) Lymphocytes % (Manual) Monocytes % (Manual) Nucleated RBC % Seg Neutrophils # Seg Neutrophils # Man Lymphocytes # (Manual) Monocytes # (Manual) POC ABG pH POC ABG pCO2 POC ABG pO2 VBG pH Sodium Potassium Chloride Carbon Dioxide BUN Creatinine Glucose POC Glucose 202 H 254 H Hemoglobin A1c Lactic Acid Calcium Phosphorus Magnesium Direct Bilirubin AST ALT C-Reactive Protein Total Protein Albumin Urine WBC (Auto) Salicylates Acetaminophen Heparin-induced Plt Ab 11/14/18 11/14/18 11/14/18 04:57 05:33 11:37 WBC RBC Hgb Hct MCV MCHC RDW Plt Count Lymph % (Auto) [place] % (Auto) Lymph # [place] # Seg Neutrophils % Seg Neuts % (Manual) Lymphocytes % (Manual) Monocytes % (Manual) Nucleated RBC % Seg Neutrophils # Seg Neutrophils # Man Lymphocytes # (Manual) Monocytes # (Manual) POC ABG pH POC ABG pCO2 POC ABG pO2 VBG pH Sodium 136 L Potassium Chloride 96.7 L Carbon Dioxide BUN 25 H Creatinine 5.3 H Glucose 235 H POC Glucose 242 H 272 H Hemoglobin A1c Lactic Acid Calcium Phosphorus Magnesium Direct Bilirubin AST ALT C-Reactive Protein Total Protein Albumin Urine WBC (Auto) Salicylates Acetaminophen Heparin-induced Plt Ab 11/14/18 11/14/18 11/15/18 18:08 23:21 04:50 WBC RBC 2.76 L Hgb 8.5 L Hct 25.4 L MCV MCHC RDW Plt Count Lymph % (Auto) [place] % (Auto) 14.5 H Lymph # [place] # 1.1 H Seg Neutrophils % Seg Neuts % (Manual) Lymphocytes % (Manual) Monocytes % (Manual) Nucleated RBC % Seg Neutrophils # Seg Neutrophils # Man Lymphocytes # (Manual) Monocytes # (Manual) POC ABG pH POC ABG pCO2 POC ABG pO2 VBG pH Sodium Potassium Chloride Carbon Dioxide BUN Creatinine Glucose POC Glucose 166 H 185 H Hemoglobin A1c Lactic Acid Calcium Phosphorus Magnesium Direct Bilirubin AST ALT C-Reactive Protein Total Protein Albumin Urine WBC (Auto) Salicylates Acetaminophen Heparin-induced Plt Ab 11/15/18 11/15/18 11/15/18 04:50 04:50 06:01 WBC RBC Hgb Hct MCV MCHC RDW Plt Count Lymph % (Auto) [place] % (Auto) Lymph # [place] # Seg Neutrophils % Seg Neuts % (Manual) Lymphocytes % (Manual) Monocytes % (Manual) Nucleated RBC % Seg Neutrophils # Seg Neutrophils # Man Lymphocytes # (Manual) Monocytes # (Manual) POC ABG pH POC ABG pCO2 POC ABG pO2 VBG pH Sodium Potassium Chloride 95.2 L Carbon Dioxide BUN 21 H Creatinine 4.8 H Glucose 126 H POC Glucose 150 H Hemoglobin A1c 10.1 H Lactic Acid Calcium Phosphorus Magnesium Direct Bilirubin AST ALT 69 H C-Reactive Protein Total Protein Albumin 2.7 L Urine WBC (Auto) Salicylates Acetaminophen Heparin-induced Plt Ab 11/15/18 11/15/18 11/16/18 13:06 18:08 00:39 WBC RBC Hgb Hct MCV MCHC RDW Plt Count Lymph % (Auto) [place] % (Auto) Lymph # [place] # Seg Neutrophils % Seg Neuts % (Manual) Lymphocytes % (Manual) Monocytes % (Manual) Nucleated RBC % Seg Neutrophils # Seg Neutrophils # Man Lymphocytes # (Manual) Monocytes # (Manual) POC ABG pH POC ABG pCO2 POC ABG pO2 VBG pH Sodium Potassium Chloride Carbon Dioxide BUN Creatinine Glucose POC Glucose 191 H 114 H 147 H Hemoglobin A1c Lactic Acid Calcium Phosphorus Magnesium Direct Bilirubin AST ALT C-Reactive Protein Total Protein Albumin Urine WBC (Auto) Salicylates Acetaminophen Heparin-induced Plt Ab 11/16/18 11/16/18 11/16/18 04:49 04:49 06:09 WBC RBC 2.60 L Hgb 8.0 L Hct 23.4 L MCV MCHC RDW Plt Count Lymph % (Auto) [place] % (Auto) 14.1 H Lymph # [place] # 1.2 H Seg Neutrophils % Seg Neuts % (Manual) Lymphocytes % (Manual) Monocytes % (Manual) Nucleated RBC % Seg Neutrophils # Seg Neutrophils # Man Lymphocytes # (Manual) Monocytes # (Manual) POC ABG pH POC ABG pCO2 POC ABG pO2 VBG pH Sodium 136 L Potassium Chloride 94.1 L Carbon Dioxide BUN 39 H Creatinine 7.4 H D Glucose 243 H POC Glucose 308 H Hemoglobin A1c Lactic Acid Calcium 8.3 L Phosphorus Magnesium Direct Bilirubin AST ALT C-Reactive Protein Total Protein Albumin 2.2 L Urine WBC (Auto) Salicylates Acetaminophen Heparin-induced Plt Ab 11/16/18 11/16/18 11/16/18 08:52 11:53 17:11 WBC RBC Hgb Hct MCV MCHC RDW Plt Count Lymph % (Auto) [place] % (Auto) Lymph # [place] # Seg Neutrophils % Seg Neuts % (Manual) Lymphocytes % (Manual) Monocytes % (Manual) Nucleated RBC % Seg Neutrophils # Seg Neutrophils # Man Lymphocytes # (Manual) Monocytes # (Manual) POC ABG pH POC ABG pCO2 POC ABG pO2 VBG pH Sodium Potassium Chloride Carbon Dioxide BUN Creatinine Glucose POC Glucose 278 H 178 H 173 H Hemoglobin A1c Lactic Acid Calcium Phosphorus Magnesium Direct Bilirubin AST ALT C-Reactive Protein Total Protein Albumin Urine WBC (Auto) Salicylates Acetaminophen Heparin-induced Plt Ab 11/16/18 11/17/18 11/17/18 21:27 00:08 04:45 WBC RBC 2.58 L Hgb 7.9 L Hct 23.5 L MCV MCHC RDW Plt Count Lymph % (Auto) [place] % (Auto) 10.3 H Lymph # [place] # 1.1 H Seg Neutrophils % 74.8 H Seg Neuts % (Manual) Lymphocytes % (Manual) Monocytes % (Manual) Nucleated RBC % Seg Neutrophils # Seg Neutrophils # Man Lymphocytes # (Manual) Monocytes # (Manual) POC ABG pH POC ABG pCO2 POC ABG pO2 VBG pH Sodium Potassium Chloride Carbon Dioxide BUN Creatinine Glucose POC Glucose 206 H 151 H Hemoglobin A1c Lactic Acid Calcium Phosphorus Magnesium Direct Bilirubin AST ALT C-Reactive Protein Total Protein Albumin Urine WBC (Auto) Salicylates Acetaminophen Heparin-induced Plt Ab 11/17/18 11/17/18 11/17/18 04:45 05:12 05:31 WBC RBC Hgb Hct MCV MCHC RDW Plt Count Lymph % (Auto) [place] % (Auto) Lymph # [place] # Seg Neutrophils % Seg Neuts % (Manual) Lymphocytes % (Manual) Monocytes % (Manual) Nucleated RBC % Seg Neutrophils # Seg Neutrophils # Man Lymphocytes # (Manual) Monocytes # (Manual) POC ABG pH 7.481 H POC ABG pCO2 POC ABG pO2 VBG pH Sodium 136 L Potassium Chloride 94.4 L Carbon Dioxide BUN 38 H Creatinine 6.8 H Glucose POC Glucose 111 H Hemoglobin A1c Lactic Acid Calcium Phosphorus Magnesium 2.40 H Direct Bilirubin AST ALT C-Reactive Protein Total Protein Albumin Urine WBC (Auto) Salicylates Acetaminophen Heparin-induced Plt Ab 11/17/18 11/17/18 11/18/18 12:10 23:23 04:24 WBC RBC 2.66 L Hgb 8.2 L Hct 24.0 L MCV MCHC RDW Plt Count 448 H Lymph % (Auto) [place] % (Auto) 12.7 H Lymph # [place] # 1.4 H Seg Neutrophils % 71.9 H Seg Neuts % (Manual) Lymphocytes % (Manual) Monocytes % (Manual) Nucleated RBC % Seg Neutrophils # Seg Neutrophils # Man Lymphocytes # (Manual) Monocytes # (Manual) POC ABG pH POC ABG pCO2 POC ABG pO2 VBG pH Sodium Potassium Chloride Carbon Dioxide BUN Creatinine Glucose POC Glucose 174 H 243 H Hemoglobin A1c Lactic Acid Calcium Phosphorus Magnesium Direct Bilirubin AST ALT C-Reactive Protein Total Protein Albumin Urine WBC (Auto) Salicylates Acetaminophen Heparin-induced Plt Ab 11/18/18 11/18/18 11/18/18 04:24 05:26 11:48 WBC RBC Hgb Hct MCV MCHC RDW Plt Count Lymph % (Auto) [place] % (Auto) Lymph # [place] # Seg Neutrophils % Seg Neuts % (Manual) Lymphocytes % (Manual) Monocytes % (Manual) Nucleated RBC % Seg Neutrophils # Seg Neutrophils # Man Lymphocytes # (Manual) Monocytes # (Manual) POC ABG pH POC ABG pCO2 POC ABG pO2 VBG pH Sodium 136 L Potassium Chloride 93.1 L Carbon Dioxide BUN 30 H Creatinine 5.9 H Glucose 211 H POC Glucose 205 H 162 H Hemoglobin A1c Lactic Acid Calcium Phosphorus Magnesium Direct Bilirubin AST ALT C-Reactive Protein Total Protein Albumin Urine WBC (Auto) Salicylates Acetaminophen Heparin-induced Plt Ab 11/18/18 11/18/18 11/18/18 12:01 19:37 23:21 WBC RBC Hgb Hct MCV MCHC RDW Plt Count Lymph % (Auto) [place] % (Auto) Lymph # [place] # Seg Neutrophils % Seg Neuts % (Manual) Lymphocytes % (Manual) Monocytes % (Manual) Nucleated RBC % Seg Neutrophils # Seg Neutrophils # Man Lymphocytes # (Manual) Monocytes # (Manual) POC ABG pH POC ABG pCO2 POC ABG pO2 VBG pH Sodium Potassium Chloride Carbon Dioxide BUN Creatinine Glucose POC Glucose 207 H 245 H Hemoglobin A1c Lactic Acid Calcium Phosphorus Magnesium Direct Bilirubin AST ALT C-Reactive Protein Total Protein Albumin Urine WBC (Auto) > 182.0 H Salicylates Acetaminophen Heparin-induced Plt Ab 11/19/18 11/19/18 11/19/18 04:24 05:21 12:01 WBC RBC Hgb Hct MCV MCHC RDW Plt Count Lymph % (Auto) [place] % (Auto) Lymph # [place] # Seg Neutrophils % Seg Neuts % (Manual) Lymphocytes % (Manual) Monocytes % (Manual) Nucleated RBC % Seg Neutrophils # Seg Neutrophils # Man Lymphocytes # (Manual) Monocytes # (Manual) POC ABG pH POC ABG pCO2 POC ABG pO2 VBG pH Sodium 134 L Potassium 5.4 H Chloride 89.8 L Carbon Dioxide BUN 54 H Creatinine 8.0 H Glucose 240 H POC Glucose 234 H 179 H Hemoglobin A1c Lactic Acid Calcium Phosphorus Magnesium Direct Bilirubin AST ALT C-Reactive Protein Total Protein Albumin Urine WBC (Auto) Salicylates Acetaminophen Heparin-induced Plt Ab 11/19/18 11/19/18 11/19/18 12:41 17:32 21:53 WBC 13.7 H RBC 2.73 L Hgb 8.3 L Hct 24.9 L MCV MCHC RDW Plt Count 479 H Lymph % (Auto) [place] % (Auto) Lymph # [place] # Seg Neutrophils % Seg Neuts % (Manual) Lymphocytes % (Manual) Monocytes % (Manual) Nucleated RBC % Seg Neutrophils # Seg Neutrophils # Man Lymphocytes # (Manual) Monocytes # (Manual) POC ABG pH POC ABG pCO2 POC ABG pO2 VBG pH Sodium Potassium Chloride Carbon Dioxide BUN Creatinine Glucose POC Glucose 317 H 421 H Hemoglobin A1c Lactic Acid Calcium Phosphorus Magnesium Direct Bilirubin AST ALT C-Reactive Protein Total Protein Albumin Urine WBC (Auto) Salicylates Acetaminophen Heparin-induced Plt Ab 11/19/18 11/20/18 11/20/18 23:16 06:03 10:25 WBC 11.9 H RBC 2.58 L Hgb 7.8 L Hct 23.1 L MCV MCHC RDW Plt Count 444 H Lymph % (Auto) [place] % (Auto) Lymph # [place] # Seg Neutrophils % Seg Neuts % (Manual) Lymphocytes % (Manual) Monocytes % (Manual) Nucleated RBC % Seg Neutrophils # Seg Neutrophils # Man Lymphocytes # (Manual) Monocytes # (Manual) POC ABG pH POC ABG pCO2 POC ABG pO2 VBG pH Sodium Potassium Chloride Carbon Dioxide BUN Creatinine Glucose POC Glucose 396 H 294 H Hemoglobin A1c Lactic Acid Calcium Phosphorus Magnesium Direct Bilirubin AST ALT C-Reactive Protein Total Protein Albumin Urine WBC (Auto) Salicylates Acetaminophen Heparin-induced Plt Ab 11/20/18 11/20/18 11/20/18 10:25 12:39 16:34 WBC RBC Hgb Hct MCV MCHC RDW Plt Count Lymph % (Auto) [place] % (Auto) Lymph # [place] # Seg Neutrophils % Seg Neuts % (Manual) Lymphocytes % (Manual) Monocytes % (Manual) Nucleated RBC % Seg Neutrophils # Seg Neutrophils # Man Lymphocytes # (Manual) Monocytes # (Manual) POC ABG pH POC ABG pCO2 POC ABG pO2 VBG pH Sodium 135 L Potassium 6.1 H* 5.1 H Chloride 89.8 L Carbon Dioxide BUN 55 H Creatinine 8.2 H Glucose 302 H POC Glucose 245 H Hemoglobin A1c Lactic Acid Calcium Phosphorus Magnesium Direct Bilirubin AST ALT C-Reactive Protein Total Protein Albumin Urine WBC (Auto) Salicylates Acetaminophen Heparin-induced Plt Ab 11/20/18 11/20/18 11/20/18 17:45 18:16 23:12 WBC RBC Hgb Hct MCV MCHC RDW Plt Count Lymph % (Auto) [place] % (Auto) Lymph # [place] # Seg Neutrophils % Seg Neuts % (Manual) Lymphocytes % (Manual) Monocytes % (Manual) Nucleated RBC % Seg Neutrophils # Seg Neutrophils # Man Lymphocytes # (Manual) Monocytes # (Manual) POC ABG pH POC ABG pCO2 POC ABG pO2 VBG pH Sodium Potassium 5.2 H Chloride 90.2 L Carbon Dioxide BUN 60 H Creatinine 8.9 H Glucose 217 H POC Glucose 211 H 320 H Hemoglobin A1c Lactic Acid Calcium Phosphorus Magnesium Direct Bilirubin AST ALT C-Reactive Protein Total Protein Albumin Urine WBC (Auto) Salicylates Acetaminophen Heparin-induced Plt Ab 11/21/18 11/21/18 11/21/18 04:44 04:44 05:32 WBC RBC 2.51 L Hgb 7.8 L Hct 22.3 L MCV MCHC 35 H RDW Plt Count Lymph % (Auto) [place] % (Auto) 9.5 H Lymph # [place] # 1.0 H Seg Neutrophils % 72.3 H Seg Neuts % (Manual) Lymphocytes % (Manual) Monocytes % (Manual) Nucleated RBC % Seg Neutrophils # Seg Neutrophils # Man Lymphocytes # (Manual) Monocytes # (Manual) POC ABG pH POC ABG pCO2 POC ABG pO2 VBG pH Sodium Potassium Chloride 92.7 L Carbon Dioxide BUN 36 H Creatinine 5.9 H Glucose 209 H POC Glucose 203 H Hemoglobin A1c Lactic Acid Calcium Phosphorus 5.50 H Magnesium Direct Bilirubin AST ALT C-Reactive Protein Total Protein Albumin Urine WBC (Auto) Salicylates Acetaminophen Heparin-induced Plt Ab 11/21/18 11/21/18 11/21/18 10:45 12:18 17:49 WBC RBC Hgb Hct MCV MCHC RDW Plt Count Lymph % (Auto) [place] % (Auto) Lymph # [place] # Seg Neutrophils % Seg Neuts % (Manual) Lymphocytes % (Manual) Monocytes % (Manual) Nucleated RBC % Seg Neutrophils # Seg Neutrophils # Man Lymphocytes # (Manual) Monocytes # (Manual) POC ABG pH 7.473 H POC ABG pCO2 POC ABG pO2 121 H VBG pH Sodium Potassium Chloride Carbon Dioxide BUN Creatinine Glucose POC Glucose 149 H 233 H Hemoglobin A1c Lactic Acid Calcium Phosphorus Magnesium Direct Bilirubin AST ALT C-Reactive Protein Total Protein Albumin Urine WBC (Auto) Salicylates Acetaminophen Heparin-induced Plt Ab 11/21/18 11/22/18 11/22/18 23:39 04:52 04:52 WBC 15.1 H RBC 2.59 L Hgb 7.6 L Hct 23.5 L MCV MCHC RDW Plt Count 472 H Lymph % (Auto) 9.9 L [place] % (Auto) 9.7 H Lymph # [place] # 1.5 H Seg Neutrophils % 79.2 H Seg Neuts % (Manual) Lymphocytes % (Manual) Monocytes % (Manual) Nucleated RBC % Seg Neutrophils # 11.9 H Seg Neutrophils # Man Lymphocytes # (Manual) Monocytes # (Manual) POC ABG pH POC ABG pCO2 POC ABG pO2 VBG pH Sodium Potassium Chloride 94.9 L Carbon Dioxide BUN 34 H Creatinine 5.6 H Glucose 182 H POC Glucose 235 H Hemoglobin A1c Lactic Acid Calcium Phosphorus Magnesium Direct Bilirubin AST ALT C-Reactive Protein Total Protein Albumin Urine WBC (Auto) Salicylates Acetaminophen Heparin-induced Plt Ab 11/22/18 11/22/18 11/22/18 05:49 11:39 16:20 WBC RBC Hgb Hct MCV MCHC RDW Plt Count Lymph % (Auto) [place] % (Auto) Lymph # [place] # Seg Neutrophils % Seg Neuts % (Manual) Lymphocytes % (Manual) Monocytes % (Manual) Nucleated RBC % Seg Neutrophils # Seg Neutrophils # Man Lymphocytes # (Manual) Monocytes # (Manual) POC ABG pH POC ABG pCO2 POC ABG pO2 VBG pH Sodium Potassium Chloride Carbon Dioxide BUN Creatinine Glucose POC Glucose 264 H 277 H 303 H Hemoglobin A1c Lactic Acid Calcium Phosphorus Magnesium Direct Bilirubin AST ALT C-Reactive Protein Total Protein Albumin Urine WBC (Auto) Salicylates Acetaminophen Heparin-induced Plt Ab 11/22/18 11/23/18 11/23/18 23:17 04:39 04:39 WBC 12.6 H RBC 2.36 L Hgb 7.1 L Hct 21.2 L MCV MCHC RDW Plt Count Lymph % (Auto) 11.8 L [place] % (Auto) 9.8 H Lymph # [place] # 1.2 H Seg Neutrophils % 77.8 H Seg Neuts % (Manual) Lymphocytes % (Manual) Monocytes % (Manual) Nucleated RBC % Seg Neutrophils # 9.8 H Seg Neutrophils # Man Lymphocytes # (Manual) Monocytes # (Manual) POC ABG pH POC ABG pCO2 POC ABG pO2 VBG pH Sodium 135 L Potassium Chloride 90.4 L Carbon Dioxide BUN 60 H Creatinine 8.5 H D Glucose 345 H POC Glucose 232 H Hemoglobin A1c Lactic Acid Calcium Phosphorus 5.20 H D Magnesium Direct Bilirubin AST ALT C-Reactive Protein Total Protein Albumin Urine WBC (Auto) Salicylates Acetaminophen Heparin-induced Plt Ab 11/23/18 11/23/18 11/23/18 05:49 05:53 12:05 WBC RBC Hgb Hct MCV MCHC RDW Plt Count Lymph % (Auto) [place] % (Auto) Lymph # [place] # Seg Neutrophils % Seg Neuts % (Manual) Lymphocytes % (Manual) Monocytes % (Manual) Nucleated RBC % Seg Neutrophils # Seg Neutrophils # Man Lymphocytes # (Manual) Monocytes # (Manual) POC ABG pH POC ABG pCO2 POC ABG pO2 VBG pH Sodium Potassium Chloride Carbon Dioxide BUN Creatinine Glucose POC Glucose 410 H 366 H 335 H Hemoglobin A1c Lactic Acid Calcium Phosphorus Magnesium Direct Bilirubin AST ALT C-Reactive Protein Total Protein Albumin Urine WBC (Auto) Salicylates Acetaminophen Heparin-induced Plt Ab Chest x-ray: pending Allied health notes reviewed: nursing
--- NOTE | 2018-11-23 15:51 | Progress Note ---
Assessment and Plan Cultures: 11/06/2018 blood culture: No growth 11/06/2018 urine culture: No growth 11/06/2018 sputum culture: Usual respiratory diana 11/18/2018 blood culture: In process 11/18/2018 urine culture: Pseudomonas sensitive to cefepime Assessment: 42-year-old male with ESRD on hemodialysis, hypertension, diabetes mellitus, peripheral vascular disease, tobacco abuse was brought into the emergency room on 11/06/2018 after he was noted to be unresponsive and was found down by the family. EMS intubated the patient and brought him to the ED. Patient had a cardiac arrest in the emergency room requiring ACLS. Subsequently, he had ROSC. Prolonged hospital stay, concerning for anoxic brain injury, now s/p trach and PEG. 1) Sepsis: new fever 102, changed to meropenem during weekend, possibly related to UTI +/- ?central fever. UA showed pyuria with urine culture growing Pseudomonas. Chest x-ray today does not suggest any pneumonia. Blood cultures so far have been negative. Renal US shows medical renal disease and distended bladder with exagerated thickness. 2) Anoxic encephalopathy, status post cardiopulmonary arrest 3) ESRD: On dialysis. Renally dose abx. 4) DM, uncontrolled, admitted with DKA 5) Shock liver on admission, now resolved 6) Reactive thrombocytosis Recs: Stop meropenem - Pseudomonas is sensitive to cefepime Restart Cefepime 1 gm q24 hrs renally adjusted D2 bladder scan repeat head CT and CXR in light of fever will follow Joyce Blackwell MD Infectious Diseases [employer] [facility] ([facility] M [phone] O [phone] Subjective Date of service: 11/23/18 Principal diagnosis: Ac hypoxemic resp failure; DKA; Severe sepsis with shock; ESRD on dialysis Interval history: Remains non verbal noted fever 102 during the weekend, most recent fever 100.6, mother at bedside. ROS unable to obtain Objective - Exam Narrative Exam: General: unresponsive non verbal on CPAP Head, Ears, Nose: Normocephalic, atraumatic. External ears, nose normal Eyes: Conjunctivae/corneas clear. No icterus. No ptosis. Neck: trach + Oral: unable to examine Cardiovascular: S1, S2 normal. Respiratory: b/l rhonchi + GI: Soft; bowel sounds normal. No peritoneal signs. PEG + Musculoskeletal: No pedal edema, no cyanosis. LUE AVF + with thrill. Right arm midline + Skin: No rash or abscess Hem/Lymphatic: No palpable cervical or supraclavicular nodes. No lymphangitis Psych: no agitation Neurological: unresponsive - Constitutional Vitals: Vital Signs Temp Pulse Resp BP Pulse Ox 99.9 F H 105 H 35 H 174/95 100 11/23/18 12:00 11/23/18 14:36 11/23/18 14:00 11/23/18 14:36 11/23/18 14:00 Temperature -Last 24 Hours Temperature 99.9 F Temperature 98.0 F Temperature 98.7 F Temperature 100.6 F Temperature 100.0 F Temperature 99.7 F - Labs CBC & Chem 7: 11/23/18 04:39 11/23/18 04:39 Labs: Abnormal lab results 11/22/18 11/22/18 11/23/18 Range/Units 16:20 23:17 04:39 WBC 12.6 H (4.5-11.0) K/mm3 RBC 2.36 L (3.65-5.03) M/mm3 Hgb 7.1 L (11.8-15.2) gm/dl Hct 21.2 L (35.5-45.6) % Lymph % (Auto) 11.8 L (13.4-35.0) % [place] % (Auto) 9.8 H (0.0-7.3) % [place] # 1.2 H (0.0-0.8) K/mm3 Seg Neutrophils % 77.8 H (40.0-70.0) % Seg Neutrophils # 9.8 H (1.8-7.7) K/mm3 Sodium (137-145) mmol/L Chloride (98-107) mmol/L BUN (9-20) mg/dL Creatinine (0.8-1.5) mg/dL Glucose (75-100) mg/dL POC Glucose 303 H 232 H (70-105) Phosphorus (2.5-4.5) mg/dL 11/23/18 11/23/18 11/23/18 Range/Units 04:39 05:49 05:53 WBC (4.5-11.0) K/mm3 RBC (3.65-5.03) M/mm3 Hgb (11.8-15.2) gm/dl Hct (35.5-45.6) % Lymph % (Auto) (13.4-35.0) % [place] % (Auto) (0.0-7.3) % [place] # (0.0-0.8) K/mm3 Seg Neutrophils % (40.0-70.0) % Seg Neutrophils # (1.8-7.7) K/mm3 Sodium 135 L (137-145) mmol/L Chloride 90.4 L (98-107) mmol/L BUN 60 H (9-20) mg/dL Creatinine 8.5 H D (0.8-1.5) mg/dL Glucose 345 H (75-100) mg/dL POC Glucose 410 H 366 H (70-105) Phosphorus 5.20 H D (2.5-4.5) mg/dL 11/23/18 Range/Units 12:05 WBC (4.5-11.0) K/mm3 RBC (3.65-5.03) M/mm3 Hgb (11.8-15.2) gm/dl Hct (35.5-45.6) % Lymph % (Auto) (13.4-35.0) % [place] % (Auto) (0.0-7.3) % [place] # (0.0-0.8) K/mm3 Seg Neutrophils % (40.0-70.0) % Seg Neutrophils # (1.8-7.7) K/mm3 Sodium (137-145) mmol/L Chloride (98-107) mmol/L BUN (9-20) mg/dL Creatinine (0.8-1.5) mg/dL Glucose (75-100) mg/dL POC Glucose 335 H (70-105) Phosphorus (2.5-4.5) mg/dL
--- NOTE | 2018-11-23 16:05 | Progress Note ---
Assessment and Plan /Severe hyperkalemia, resolved - s/p Kayexalate with PEG tube, bicarbonate, calcium gluconate, insulin and D50 - Continue to monitor potassium level / Febrile illness with UTI and sepsis, not POA - spiked fever on 11/18, - Started on cefepime, consulted ID, - UA showed pyuria with urine culture growing Pseudomonas. Chest x-ray does not suggest any pneumonia. Blood cultures so far have been negative. /S/P Cardiopulmonary Arrest- Possibly from renal failure with severe DKA and underlying CHF 2d echo showed Ef 30-35% cont ventilatory support, nebulizers, monitor ins/os /Anoxic Encephalopathy; from cardiac arrest neurology following, supportive care Poor prognosis, EEG showed diffuse slowing and no seizure activity /-Acute Hypoxic Respiratory failure; on ventilatory support failed to extubate s/p trach and PEG on 11/19/18 /-Accelerated hypertension; improved Continue current meds with PEG tube, IV labetalol as needed / DKA-corrected; uncontrolled blood sugars, a1c 10.1 Accu-Chek sliding scale coverage q6h on long acting insulin, adjust the dose Dose as needed / SIRS, POA, likely from DKA and renal failure. 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 closely monitor platelets, /-Seizure Disorder; seizure precautions cont Antiepileptic medications, neurology following, EEG findings noted /-Acute Kidney Injury secondary to ischemic ATN from hypotension, Hemodialysis per schedule nephrology following /-Cardiogenic Shock; improved /-Anemia of chronic disease; monitor H&H and transfuse as needed, check stool for occult blood /-Severe malnutrition/nutritional supplements, nutrition consult; /-PAD; no statin for abnormal liver function /-Shock Liver; with transaminitis, trending down, cont to monitor, supportive care /CHF with EF 30-35% - monitor volume status, cardiology following --DVT prophylaxis; SCDs --Full CODE STATUS Very poor prognosis. Plan of care is reviewed with the patient's mother in detail Critical care time 34 minutes Disposition : will need placement Brief History 42 YO Male with ESRD on HD, HTN, DM, PAD, Nicotine Dependence presents to ED for evaluation. As per family, the patient was in his usual state of health around bedtime at 2200hrs. Pt was found down and unresponsive by family the next morning. EMS notified, and upon arrival the patient was found to be in distress. Pt Intubated and placed on vent support. Pt transported to [facility]. Pt seen and evaluated in ED and found to have STEMI, Acute on Chronic Renal Failure, Acidosis, Acute Respiratory Failure, Sepsis, and DKA. Pt experienced cardiac arrest in ED and was treated IAW ACLS protocol with return of perfusing cardiac rhythm. Pt found to have signs of Anoxic Brain Injury. Pt admitted to ICU and initiated on sepsis protocol and treated with IVF resuscitation therapy, IV pressor support. Pt has poor prognosis. Neurology , Cardiology ,pulm and Nephrology are following,receiving HD per nephrology, Vent dependent with poor prognosis, s/p Trach and PEG and placement 11/19. need placement Hospitalist Physical General appearance: Present: no acute distress, well-nourished, other ( on vent) - EENT Eyes: Present: PERRL - Neck Neck: Present: supple, normal ROM, trach in place - Respiratory Respiratory effort: normal Respiratory: bilateral: diminished, rhonchi, negative: rales, wheezing - Cardiovascular Rhythm: regular Heart Sounds: Present: S1 & S2 - Extremities Extremities: no ischemia, No edema - Abdominal General gastrointestinal: soft, non-tender, non-distended, normal bowel sounds, hypoactive bowel sounds - Integumentary Integumentary: Present: clear, warm - Psychiatric Psychiatric: other (on vent) - Neurologic Neurologic: other (on vent) With trach Subjective Date of service: 11/23/18 Principal diagnosis: Ac hypoxemic resp failure; DKA; Severe sepsis with shock; ESRD on dialysis Interval history: Patient seen and examined tolerating TF still having low-high grade temp discussed with mother at bedside Objective - Constitutional Vitals: Vital Signs - 12hr 11/23/18 11/23/18 11/23/18 04:30 04:42 05:00 Temperature Pulse Rate 102 H 111 H 102 H Pulse Rate [ From Monitor] Respiratory 22 22 Rate Respiratory Rate [ Generalized] Blood Pressure 143/77 154/71 139/75 O2 Sat by Pulse 98 98 99 Oximetry O2 Sat by Pulse Oximetry [ Assessment] 11/23/18 11/23/18 11/23/18 05:30 06:00 06:30 Temperature Pulse Rate 104 H 104 H 108 H Pulse Rate [ From Monitor] Respiratory 21 24 18 Rate Respiratory Rate [ Generalized] Blood Pressure 144/69 148/76 144/75 O2 Sat by Pulse 99 100 100 Oximetry O2 Sat by Pulse Oximetry [ Assessment] 11/23/18 11/23/18 11/23/18 06:33 07:00 07:30 Temperature Pulse Rate 11 L 102 H 106 H Pulse Rate [ From Monitor] Respiratory 23 23 Rate Respiratory Rate [ Generalized] Blood Pressure 144/75 128/65 139/73 O2 Sat by Pulse 99 99 Oximetry O2 Sat by Pulse Oximetry [ Assessment] 11/23/18 11/23/18 11/23/18 08:00 08:30 09:00 Temperature 98.0 F Pulse Rate 110 H 102 H 114 H Pulse Rate [ 107 H From Monitor] Respiratory 24 20 19 Rate Respiratory Rate [ Generalized] Blood Pressure 126/69 118/60 157/83 O2 Sat by Pulse 100 100 100 Oximetry O2 Sat by Pulse 100 Oximetry [ Assessment] 11/23/18 11/23/18 11/23/18 09:30 09:33 10:00 Temperature Pulse Rate 110 H 108 H 98 H Pulse Rate [ From Monitor] Respiratory 22 19 Rate Respiratory 24 Rate [ Generalized] Blood Pressure 137/67 137/67 110/55 O2 Sat by Pulse 99 100 Oximetry O2 Sat by Pulse Oximetry [ Assessment] 11/23/18 11/23/18 11/23/18 10:15 10:30 11:00 Temperature Pulse Rate 111 H 102 H 101 H Pulse Rate [ From Monitor] Respiratory 38 H 24 26 H Rate Respiratory Rate [ Generalized] Blood Pressure 172/75 159/71 143/83 O2 Sat by Pulse 100 100 100 Oximetry O2 Sat by Pulse Oximetry [ Assessment] 11/23/18 11/23/18 11/23/18 11:30 12:00 12:30 Temperature 99.9 F H Pulse Rate 102 H 105 H 97 H Pulse Rate [ 112 H From Monitor] Respiratory 23 32 H 28 H Rate Respiratory Rate [ Generalized] Blood Pressure 137/79 161/65 114/65 O2 Sat by Pulse 100 100 99 Oximetry O2 Sat by Pulse Oximetry [ Assessment] 11/23/18 11/23/18 11/23/18 13:00 13:30 13:33 Temperature Pulse Rate 106 H 108 H 99 H Pulse Rate [ From Monitor] Respiratory 20 28 H 32 H Rate Respiratory Rate [ Generalized] Blood Pressure 137/75 162/80 105/65 O2 Sat by Pulse 100 100 100 Oximetry O2 Sat by Pulse Oximetry [ Assessment] 11/23/18 11/23/18 14:00 14:36 Temperature Pulse Rate 110 H 105 H Pulse Rate [ From Monitor] Respiratory 35 H Rate Respiratory Rate [ Generalized] Blood Pressure 172/75 174/95 O2 Sat by Pulse 100 Oximetry O2 Sat by Pulse Oximetry [ Assessment] - Labs CBC & Chem 7: 11/23/18 04:39 11/23/18 04:39 Labs: Abnormal lab results 11/22/18 11/22/18 11/23/18 Range/Units 16:20 23:17 04:39 WBC 12.6 H (4.5-11.0) K/mm3 RBC 2.36 L (3.65-5.03) M/mm3 Hgb 7.1 L (11.8-15.2) gm/dl Hct 21.2 L (35.5-45.6) % Lymph % (Auto) 11.8 L (13.4-35.0) % [place] % (Auto) 9.8 H (0.0-7.3) % [place] # 1.2 H (0.0-0.8) K/mm3 Seg Neutrophils % 77.8 H (40.0-70.0) % Seg Neutrophils # 9.8 H (1.8-7.7) K/mm3 Sodium (137-145) mmol/L Chloride (98-107) mmol/L BUN (9-20) mg/dL Creatinine (0.8-1.5) mg/dL Glucose (75-100) mg/dL POC Glucose 303 H 232 H (70-105) Phosphorus (2.5-4.5) mg/dL 11/23/18 11/23/18 11/23/18 Range/Units 04:39 05:49 05:53 WBC (4.5-11.0) K/mm3 RBC (3.65-5.03) M/mm3 Hgb (11.8-15.2) gm/dl Hct (35.5-45.6) % Lymph % (Auto) (13.4-35.0) % [place] % (Auto) (0.0-7.3) % [place] # (0.0-0.8) K/mm3 Seg Neutrophils % (40.0-70.0) % Seg Neutrophils # (1.8-7.7) K/mm3 Sodium 135 L (137-145) mmol/L Chloride 90.4 L (98-107) mmol/L BUN 60 H (9-20) mg/dL Creatinine 8.5 H D (0.8-1.5) mg/dL Glucose 345 H (75-100) mg/dL POC Glucose 410 H 366 H (70-105) Phosphorus 5.20 H D (2.5-4.5) mg/dL 11/23/18 Range/Units 12:05 WBC (4.5-11.0) K/mm3 RBC (3.65-5.03) M/mm3 Hgb (11.8-15.2) gm/dl Hct (35.5-45.6) % Lymph % (Auto) (13.4-35.0) % [place] % (Auto) (0.0-7.3) % [place] # (0.0-0.8) K/mm3 Seg Neutrophils % (40.0-70.0) % Seg Neutrophils # (1.8-7.7) K/mm3 Sodium (137-145) mmol/L Chloride (98-107) mmol/L BUN (9-20) mg/dL Creatinine (0.8-1.5) mg/dL Glucose (75-100) mg/dL POC Glucose 335 H (70-105) Phosphorus (2.5-4.5) mg/dL
[2018-11-23] MEDS: MAXIPIME/NS 1 GM/100 ML 1 GM/100 ML BAG IV SCH (17:07)
[2018-11-23 18:26] LABS: Bacteria,Urine 2+ /HPF (Negative); Bilirubin,Urine NEG (Negative); Blood,Urine MOD (Negative); Color,Urine Amber (Yellow); Hyaline Casts,Urine 8 /LPF; Mucus,Urine FEW /HPF; Urobilinogen,Urine < 2.0 mg/dL (<2.0)
[2018-11-23 18:28] LABS: Protein,Urine >500 mg/dL (Negative); WBC,Urine > 182.0 /HPF (0.0-6.0)
[2018-11-23] MEDS ORDERED: LANTUS SUB-Q SCH (22:00)
[2018-11-23] MEDS: APRESOLINE IV PRN (23:58)
[2018-11-24] MEDS: LOPRESSOR PO SCH ×4 (03:21→22:25)
[2018-11-24] MEDS: ATIVAN IV PRN (03:23)
[2018-11-24 06:09] LABS: Basophils # (Auto) 0.1 K/mm3 (0.0-0.1); Basophils % (Auto) 0.6 % (0.0-1.8); Eosinophils # (Auto) 0.1 K/mm3 (0.0-0.4); Eosinophils % (Auto) 0.5 % (0.0-4.3); Hematocrit 21.9 % (35.5-45.6); Hemoglobin 7.4 gm/dl (11.8-15.2); Lymphocytes # (Auto) 1.4 K/mm3 (1.2-5.4); Lymphocytes % (Auto) 13.4 % (13.4-35.0); Mean Corpuscular HGB Conc 34 % (32-34); Mean Corpuscular Volume 90 fl (84-94); Monocytes # (Auto) 1.1 K/mm3 (0.0-0.8); Monocytes % (Auto) 10.1 % (0.0-7.3); Platelet Count 447 K/mm3 (140-440); Red Blood Count 2.44 M/mm3 (3.65-5.03)
[2018-11-24] MEDS: HumuLIN R SUB-Q SCH (06:33)
[2018-11-24] MEDS: APRESOLINE PO SCH ×3 (06:36→22:22)
[2018-11-24 06:38] LABS: Calcium 9.8 mg/dL (8.4-10.2)
[2018-11-24] MEDS ORDERED: D50W (25GM) Syringe IV PRN (09:08)
--- NOTE | 2018-11-24 09:17 | Progress Note ---
Assessment and Plan Severe renal failure due to GENEVIEVE on CKD, now ESRD on HD S/p High Anion Gap Metabolic Acidosis with elevated lactic acidosis with DKA: S/p Hyperkalemia: S/p Hyperphosphatemia: Hypernatremia: - HD today for clearance and volume removal - Assess dialysis needs daily - Renally dose medications - Avoid Nephrotoxic agents - Strict intake and output S/p Cardiopulmonary arrest. STEMI: Acute Hypoxic respiratory failure: -S/p CPR and ACLS protocol -Now off pressor support -Cardiology on board -On ventilator via Trach. S/p Diabetic Ketoacidosis: Diabetes Mellitus: - S/p insulin drip - On SQ insulin - As per primary team Acute Encephalopathy History of Seizure: -On Keppra -As per Neurology Subjective Date of service: 11/24/18 Principal diagnosis: Ac hypoxemic resp failure; DKA; Severe sepsis with shock; ESRD on dialysis Interval history: on the vent, family at bedside, all questions answered Objective - Vital Signs Vital signs: Vital Signs - 12hr 11/23/18 11/23/18 11/23/18 21:24 21:30 22:00 Temperature Pulse Rate 97 H 100 H 90 Respiratory 17 20 Rate Blood Pressure 156/76 118/67 114/62 O2 Sat by Pulse 100 100 Oximetry O2 Sat by Pulse Oximetry [ Assessment] 11/23/18 11/23/18 11/23/18 22:10 22:30 23:00 Temperature Pulse Rate 100 H 92 H 103 H Respiratory 20 13 Rate Blood Pressure 114/62 127/66 171/81 O2 Sat by Pulse 99 100 100 Oximetry O2 Sat by Pulse Oximetry [ Assessment] 11/23/18 11/23/18 11/23/18 23:30 23:31 23:50 Temperature 100.2 F H Pulse Rate 102 H 108 H Respiratory 27 H 14 Rate Blood Pressure 139/67 175/82 O2 Sat by Pulse 100 100 Oximetry O2 Sat by Pulse Oximetry [ Assessment] 11/23/18 11/24/18 11/24/18 23:58 00:00 00:30 Temperature Pulse Rate 107 H 107 H 96 H Respiratory 19 20 Rate Blood Pressure 171/87 142/65 111/56 O2 Sat by Pulse 100 100 Oximetry O2 Sat by Pulse 100 Oximetry [ Assessment] 11/24/18 11/24/18 11/24/18 01:00 01:30 02:00 Temperature Pulse Rate 95 H 99 H 99 H Respiratory 20 20 20 Rate Blood Pressure 106/56 132/69 143/70 O2 Sat by Pulse 100 100 100 Oximetry O2 Sat by Pulse Oximetry [ Assessment] 11/24/18 11/24/18 11/24/18 02:30 02:40 03:00 Temperature 100.1 F H Pulse Rate 109 H 111 H Respiratory 22 21 Rate Blood Pressure 160/74 163/77 O2 Sat by Pulse 100 100 Oximetry O2 Sat by Pulse Oximetry [ Assessment] 11/24/18 11/24/18 11/24/18 03:21 03:30 04:00 Temperature Pulse Rate 111 H 103 H 94 H Respiratory 20 17 Rate Blood Pressure 180/87 111/61 103/62 O2 Sat by Pulse 100 100 Oximetry O2 Sat by Pulse Oximetry [ Assessment] 11/24/18 11/24/18 11/24/18 04:30 05:00 05:01 Temperature Pulse Rate 91 H 99 H 97 H Respiratory 20 20 Rate Blood Pressure 100/70 149/73 149/73 O2 Sat by Pulse 100 100 100 Oximetry O2 Sat by Pulse Oximetry [ Assessment] 11/24/18 11/24/18 11/24/18 05:30 06:00 06:30 Temperature Pulse Rate 96 H 95 H 97 H Respiratory 19 20 20 Rate Blood Pressure 129/70 116/67 126/72 O2 Sat by Pulse 100 100 99 Oximetry O2 Sat by Pulse Oximetry [ Assessment] 11/24/18 11/24/18 06:36 08:48 Temperature Pulse Rate 105 H 100 H Respiratory Rate Blood Pressure 126/72 158/83 O2 Sat by Pulse 100 Oximetry O2 Sat by Pulse 100 Oximetry [ Assessment] - General Appearance General appearance: well-developed, well-nourished EENT: ATNC, PERRL, mucous membranes dry Neck: no JVD, no carotid bruit Respiratory: Present: Clear to Ascultation Cardiology: regular, S1S2 Gastrointestinal: normoactive bowel sounds, no tenderness, no distended Integumentary: no rash, warm and dry Neurologic: other (does not follow commands) Musculoskeletal: other (trace pitting edema in BLE) Psychiatric: other (does not answer questions) - Lab 11/24/18 05:18 11/24/18 05:18 Most recent lab results Calcium 9.8 mg/dL (8.4-10.2) 11/24/18 05:18 Phosphorus 6.60 mg/dL (2.5-4.5) H D 11/24/18 05:18 Magnesium 2.40 mg/dL (1.7-2.3) H 11/17/18 04:45 Medications & Allergies - Medications Allergies/Adverse Reactions: Allergies No Known Allergies Allergy (Verified 03/17/18 11:54) Home Medications: Home Medications Medication Instructions Recorded Confirmed Last Taken Type Esomeprazole Magnesium [NexIUM] 20 mg PO QDAY #30 suspdr.pkt 03/17/18 11/07/18 Unknown Rx HYDROcodone/APAP 5-325 [[place] 1 each PO Q6HR PRN #15 tablet 03/17/18 11/07/18 Unknown Rx 5/325] Metoclopramide [Reglan] 10 mg PO TID #21 tab 03/17/18 11/07/18 Unknown Rx Ondansetron [Zofran Odt] 4 mg PO Q4HR PRN #20 tab.rapdis 03/17/18 11/07/18 Unknown Rx Active Medications: Generic Name Dose Route Start Last Admin Trade Name Freq PRN Reason Stop Dose Admin Acetaminophen 650 mg 11/06/18 22:22 11/22/18 12:57 Tylenol FEEDTUBE 650 mg Q6H PRN Administration Fever >101 Lipase/Protease/Amylase 1 each 11/08/18 18:38 Pancreaze 10,500 Unit FEEDTUBE PRN PRN For Clogged Feeding Tube Apixaban 2.5 mg 11/20/18 22:00 11/23/18 21:24 Eliquis FEEDTUBE 2.5 mg BID MARIAJOSE Administration Chlorpromazine HCl 10 mg 11/07/18 08:07 11/22/18 12:56 Thorazine PO 10 mg Q6H PRN Administration Hiccups Clonazepam 0.5 mg 11/12/18 16:49 11/13/18 23:10 Klonopin PO 0.5 mg Q12H PRN Administration myoclonic jerks Dextrose 50 ml 11/07/18 16:46 11/10/18 23:43 D50w (25gm) Syringe IV 50 ml PRN PRN Administration Hypoglycemia Epoetin Enoc 20,000 unit 11/18/18 13:46 11/20/18 21:06 Procrit IV 20,000 unit MARY PRN Administration hemodialysis Fentanyl 50 mcg 11/06/18 08:37 Sublimaze IV Q10MIN PRN ANALGESIA Hydralazine HCl 10 mg 11/08/18 00:56 11/23/18 23:58 Apresoline IV 10 mg Q4H PRN Administration Hypertension Hydralazine HCl 50 mg 11/14/18 09:16 11/24/18 06:36 Apresoline PO 50 mg Q8HR MARIAJOSE Administration Hydrophilic Ointment 1 applic 11/06/18 08:26 11/10/18 19:52 Vaseline Lip Therapy TP 1 applic Q2HR PRN Administration Dry Lips Sodium Chloride 100 mls @ 999 mls/hr 11/14/18 11:33 Nacl 0.9% IV MARY PRN Hypotension Cefepime HCl 1 gm in 100 mls @ 200 mls/hr 11/23/18 17:00 11/23/18 17:07 Maxipime/Ns 1 Gm/100 Ml IV 200 mls/hr Q24HR MARIAJOSE Administration Protocol Insulin Human Regular 100 100 mls @ 1 mls/hr 11/24/18 10:00 units/ Sodium Chloride IV TITR MARIAJOSE Protocol 1 UNITS/HR Labetalol HCl 10 mg 11/19/18 16:09 11/20/18 15:24 Normodyne IV 10 mg Q4H PRN Administration Hypertension Lansoprazole 30 mg 11/09/18 10:00 11/23/18 21:24 Prevacid Solutab FEEDTUBE 30 mg BID MARIAJOSE Administration Levetiracetam 750 mg 11/18/18 10:00 11/23/18 21:25 Keppra PO 750 mg BID MARIAJOSE Administration Lorazepam 2 mg 11/12/18 08:31 11/24/18 03:23 Ativan IV 2 mg Q4H PRN Administration Agitation Metoprolol Tartrate 50 mg 11/14/18 10:00 11/24/18 03:21 Lopressor PO 50 mg Q6H MARIAJOSE Administration Modafinil 200 mg 11/17/18 10:00 11/23/18 09:34 Provigil PO 200 mg QAM MARIAJOSE Administration Multi-Ingred Cream/Lotion/Oil/Oint 1 applic 11/06/18 08:26 Artificial Tears Ophth Oint OU Q4HR PRN Dry Eye(s) Simple Syrup 15 ml 11/08/18 18:38 Simple Syrup FEEDTUBE PRN PRN Hypoglycemia Simple Syrup 30 ml 11/08/18 18:38 Simple Syrup FEEDTUBE PRN PRN Hypoglycemia Sodium Bicarbonate 325 mg 11/08/18 18:38 Sodium Bicarbonate FEEDTUBE PRN PRN For Clogged Feeding Tube Sodium Chloride 10 ml 11/06/18 22:00 11/23/18 21:24 Sodium Chloride Flush Syringe 10 Ml IV 10 ml BID MARIAJOSE Administration Sodium Chloride 10 ml 11/06/18 12:42 11/13/18 10:30 Sodium Chloride Flush Syringe 10 Ml IV 10 ml PRN PRN Administration LINE FLUSH Tamsulosin HCl 0.4 mg 11/10/18 13:00 11/23/18 09:33 Flomax PO 0.4 mg QDAY MARIAJOSE Administration
--- NOTE | 2018-11-24 09:59 | XRay Report ---
AP CHEST: HISTORY: Persistent fever Compared to 11/19/18. The tracheostomy remains in good position. AP view of the chest demonstrates a normal mediastinal and cardiac contour with clear lungs and normal bony and soft tissue structures. IMPRESSION: Unremarkable AP chest.
--- NOTE | 2018-11-24 10:14 | Progress Note ---
Assessment and Plan Assessment and plan: --Febrile illness with UTI and sepsis, not POA Intermittent fevers, low-grade fever last 24 hours MAXIMUM TEMPERATURE 100.4 on cefepime, I'll be following, follow cultures and supportive care UA showed pyuria with urine culture growing Pseudomonas. Chest x-ray negative for pneumonia. Blood cultures negative to date --Severe hyperkalemia, resolved Monitor electrolytes --S/P Cardiopulmonary Arrest- Possibly from renal failure with severe DKA and underlying CHF 2d echo showed Ef 30-35% on ventilatory support, nebulizers, monitor ins/os --Anoxic Encephalopathy; from cardiac arrest neurology following, supportive care, Poor prognosis, EEG showed diffuse slowing and no seizure activity --Acute Hypoxic Respiratory failure; vent dependent Unable to wean, status post trach and PEG 11/19/18 Continue trach and PEG care, PEG feeds per protocol --Accelerated hypertension; improved Continue current antihypertensives IV labetalol as needed --DKA-corrected; uncontrolled blood sugars, a1c 10.1 Accu-Chek sliding scale coverage q6h on long acting insulin, adjust the dose as needed --Uncontrolled blood sugars; Will start insulin drip per protocol For better control --Severe metabolic Acidosis; from DKA and renal failure, resolved --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 closely monitor platelets, --Seizure Disorder; seizure precautions cont Antiepileptic medications, neurology following, EEG findings noted --Acute Kidney Injury secondary to ischemic ATN from hypotension, Hemodialysis per schedule nephrology following --Cardiogenic Shock; improved --Anemia of chronic disease; monitor H&H and transfuse as needed, check stool for occult blood --Severe malnutrition/nutritional supplements, nutrition consult; --PAD; no statin for abnormal liver function --Shock Liver; with transaminitis, trending down, cont to monitor, supportive care --CHF with EF 30-35% - monitor volume status, cardiology following --DVT prophylaxis; SCDs --Full CODE STATUS Consults and recommendations noted and appreciated Discussed with patient's nurse and ID, Dr. Villarreal, Very poor prognosis. Plan of care is reviewed with the patient's mother in detail She has numerous questions and concerns, addressed all of them Patient remains critically ill, mother and other family members are aware Critical care time 34 minutes Disposition : will need placement when medically stable Brief History 42 YO Male with ESRD on HD, HTN, DM, PAD, Nicotine Dependence presents to ED for evaluation. As per family, the patient was in his usual state of health around bedtime at 2200hrs. Pt was found down and unresponsive by family the next morning. EMS notified, and upon arrival the patient was found to be in distress. Pt Intubated and placed on vent support. Pt transported to [facility]. Pt seen and evaluated in ED and found to have STEMI, Acute on Chronic Renal Failure, Acidosis, Acute Respiratory Failure, Sepsis, and DKA. Pt experienced cardiac arrest in ED and was treated IAW ACLS protocol with return of perfusing cardiac rhythm. Pt found to have signs of Anoxic Brain Injury. Pt admitted to ICU and initiated on sepsis protocol and treated with IVF resuscitation therapy, IV pressor support. Pt has poor prognosis. Neurology , Cardiology ,pulm and Nephrology are following,receiving HD per nephrology, Vent dependent with poor prognosis, s/p Trach and PEG and placement 11/19. need placement History Interval history: Patient seen and examined medical records reviewed Patient remains intubated on vent support Status post trach on vent and PEG Low-grade fever Vital signs reviewed Hospitalist Physical - Constitutional Vitals: Temp Pulse Resp BP Pulse Ox 100.4 F H 100 H 20 158/83 100 11/24/18 08:00 11/24/18 08:48 11/24/18 06:30 11/24/18 08:48 11/24/18 08:48 General appearance: Present: no acute distress, well-nourished, other (status post tracheostomy on vent) - EENT Eyes: Present: PERRL, EOM intact - Neck Neck: Present: supple, normal ROM - Respiratory Respiratory effort: normal Respiratory: bilateral: diminished, rhonchi, negative: rales, wheezing - Cardiovascular Rhythm: regular Heart Sounds: Present: S1 & S2 - Extremities Extremities: no ischemia - Abdominal General gastrointestinal: soft, non-tender, non-distended, normal bowel sounds, other (PEG tube in place) - Integumentary Integumentary: Present: clear, warm - Psychiatric Psychiatric: other (unresponsive and noncommunicative) - Neurologic Neurologic: other (unresponsive and noncommunicative) Results - Labs CBC & Chem 7: 11/24/18 05:18 11/24/18 05:18 Labs: Laboratory Last Values WBC 10.6 K/mm3 (4.5-11.0) 11/24/18 05:18 RBC 2.44 M/mm3 (3.65-5.03) L 11/24/18 05:18 Hgb 7.4 gm/dl (11.8-15.2) L 11/24/18 05:18 Hct 21.9 % (35.5-45.6) L 11/24/18 05:18 MCV 90 fl (84-94) 11/24/18 05:18 MCH 31 pg (28-32) 11/24/18 05:18 MCHC 34 % (32-34) 11/24/18 05:18 RDW 15.0 % (13.2-15.2) 11/24/18 05:18 Plt Count 447 K/mm3 (140-440) H 11/24/18 05:18 Lymph % (Auto) 13.4 % (13.4-35.0) 11/24/18 05:18 [place] % (Auto) 10.1 % (0.0-7.3) H 11/24/18 05:18 Eos % (Auto) 0.5 % (0.0-4.3) 11/24/18 05:18 Baso % (Auto) 0.6 % (0.0-1.8) 11/24/18 05:18 Lymph # 1.4 K/mm3 (1.2-5.4) 11/24/18 05:18 [place] # 1.1 K/mm3 (0.0-0.8) H 11/24/18 05:18 Eos # 0.1 K/mm3 (0.0-0.4) 11/24/18 05:18 Baso # 0.1 K/mm3 (0.0-0.1) 11/24/18 05:18 Add Manual Diff Complete 11/11/18 04:24 Total Counted 100 11/11/18 04:24 Seg Neutrophils % 75.4 % (40.0-70.0) H 11/24/18 05:18 Seg Neuts % (Manual) 66.0 % (40.0-70.0) 11/11/18 04:24 0 % 11/11/18 04:24 22.0 % (13.4-35.0) 11/11/18 04:24 Reactive Lymphs % (Man) 0 % 11/11/18 04:24 10.0 % (0.0-7.3) H 11/11/18 04:24 2.0 % (0.0-4.3) 11/11/18 04:24 0 % (0.0-1.8) 11/11/18 04:24 0 % 11/11/18 04:24 0 % 11/11/18 04:24 0 % 11/11/18 04:24 0 % 11/11/18 04:24 Nucleated RBC % Not Reportable 11/11/18 04:24 Seg Neutrophils # 8.0 K/mm3 (1.8-7.7) H 11/24/18 05:18 Seg Neutrophils # Man 6.9 K/mm3 (1.8-7.7) 11/11/18 04:24 Band Neutrophils # 0.0 K/mm3 11/11/18 04:24 2.3 K/mm3 (1.2-5.4) 11/11/18 04:24 Abs React Lymphs (Man) 0.0 K/mm3 11/11/18 04:24 1.0 K/mm3 (0.0-0.8) H 11/11/18 04:24 0.2 K/mm3 (0.0-0.4) 11/11/18 04:24 0.0 K/mm3 (0.0-0.1) 11/11/18 04:24 0.0 K/mm3 11/11/18 04:24 0.0 K/mm3 11/11/18 04:24 0.0 K/mm3 11/11/18 04:24 Blast Cells # 0.0 K/mm3 11/11/18 04:24 WBC Morphology Not Reportable 11/11/18 04:24 Hypersegmented Neuts Not Reportable 11/11/18 04:24 Hyposegmented Neuts Not Reportable 11/11/18 04:24 Hypogranular Neuts Not Reportable 11/11/18 04:24 Not Reportable 11/11/18 04:24 Not Reportable 11/11/18 04:24 Not Reportable 11/11/18 04:24 Not Reportable 11/11/18 04:24 Not Reportable 11/11/18 04:24 Not Reportable 11/11/18 04:24 Consistent w auto 11/11/18 04:24 Not Reportable 11/11/18 04:24 Plt Clumps, EDTA Not Reportable 11/11/18 04:24 Not Reportable 11/11/18 04:24 Not Reportable 11/11/18 04:24 Not Reportable 11/11/18 04:24 Plt Morphology Comment Not Reportable 11/11/18 04:24 RBC Morphology Not Reportable 11/11/18 04:24 Dimorphic RBCs Not Reportable 11/11/18 04:24 Not Reportable 11/11/18 04:24 Not Reportable 11/11/18 04:24 Not Reportable 11/11/18 04:24 1+ 11/11/18 04:24 Not Reportable 11/11/18 04:24 Not Reportable 11/11/18 04:24 Not Reportable 11/11/18 04:24 Not Reportable 11/11/18 04:24 Not Reportable 11/11/18 04:24 Not Reportable 11/11/18 04:24 Not Reportable 11/11/18 04:24 Not Reportable 11/11/18 04:24 Not Reportable 11/11/18 04:24 Not Reportable 11/11/18 04:24 Not Reportable 11/11/18 04:24 Not Reportable 11/11/18 04:24 Not Reportable 11/11/18 04:24 Not Reportable 11/11/18 04:24 Not Reportable 11/11/18 04:24 Acanthocytes (Spur) Not Reportable 11/11/18 04:24 Rouleaux Not Reportable 11/11/18 04:24 Not Reportable 11/11/18 04:24 Not Reportable 11/11/18 04:24 Not Reportable 11/11/18 04:24 Not Reportable 11/11/18 04:24 Hem Pathologist Commnt No 11/11/18 04:24 Heparin Anti-Xa, Unfract Negative (Negative) 11/08/18 21:59 POC ABG pH 7.473 (7.35-7.45) H 11/21/18 10:45 POC ABG pCO2 45.0 (35-45) 11/21/18 10:45 POC ABG pO2 121 (80-105) H 11/21/18 10:45 POC ABG HCO3 33.0 (22-26 mml/L) 11/21/18 10:45 POC ABG Total CO2 34 (23-27mmol/L) 11/21/18 10:45 POC ABG O2 Sat 99 11/21/18 10:45 POC ABG Base Excess 9 ((-2) - (+3)mmol/L) 11/21/18 10:45 VBG pH 6.982 (7.320-7.420) L* 11/06/18 13:22 28 % 11/21/18 10:45 Sodium 138 mmol/L (137-145) 11/24/18 05:18 Potassium 4.8 mmol/L (3.6-5.0) 11/24/18 05:18 Chloride 91.7 mmol/L (98-107) L 11/24/18 05:18 Carbon Dioxide 25 mmol/L (22-30) 11/24/18 05:18 26 mmol/L 11/24/18 05:18 BUN 88 mg/dL (9-20) H 11/24/18 05:18 11.3 mg/dL (0.8-1.5) H 11/24/18 05:18 Estimated GFR 6 ml/min 11/24/18 05:18 8 % 11/24/18 05:18 Glucose 320 mg/dL (75-100) H 11/24/18 05:18 POC Glucose 356 (70-105) H 11/24/18 05:32 10.1 % (4-6) H 11/15/18 04:50 Lactic Acid 2.70 mmol/L (0.7-2.0) H* 11/08/18 08:00 Calcium 9.8 mg/dL (8.4-10.2) 11/24/18 05:18 Phosphorus 6.60 mg/dL (2.5-4.5) H D 11/24/18 05:18 Magnesium 2.40 mg/dL (1.7-2.3) H 11/17/18 04:45 < 0.20 mg/dL (0.1-1.2) 11/16/18 04:49 < 0.2 mg/dL (0-0.2) 11/16/18 04:49 0.0 mg/dL 11/16/18 04:49 AST 30 units/L (5-40) 11/16/18 04:49 ALT 48 units/L (7-56) 11/16/18 04:49 94 units/L (35-129) 11/16/18 04:49 58 units/L (55-170) 11/06/18 09:02 0.027 ng/mL (0.00-0.029) 11/06/18 09:02 1.90 mg/dL (0.00-1.30) H 11/06/18 19:30 6.5 g/dL (6.3-8.2) 11/16/18 04:49 2.2 g/dL (3.9-5) L 11/16/18 04:49 0.5 % 11/16/18 04:49 See scanned result 11/08/18 21:59 Su (Yellow) 11/23/18 18:00 Turbid (Clear) 11/23/18 18:00 5.0 (5.0-7.0) 11/23/18 18:00 Ur Specific [place] 1.025 (1.003-1.030) 11/23/18 18:00 >500 mg/dL (Negative) 11/23/18 18:00 50 mg/dL (Negative) 11/23/18 18:00 Tr mg/dL (Negative) 11/23/18 18:00 Mod (Negative) 11/23/18 18:00 Neg (Negative) 11/23/18 18:00 Neg (Negative) 11/23/18 18:00 < 2.0 mg/dL (<2.0) 11/23/18 18:00 Ur Leukocyte Esterase Mod (Negative) 11/23/18 18:00 > 182.0 /HPF (0.0-6.0) H 11/23/18 18:00 128.0 /HPF (0.0-6.0) 11/23/18 18:00 U Epithel Cells (Auto) 1.0 /HPF (0-13.0) 11/23/18 18:00 2+ /HPF (Negative) 11/23/18 18:00 3+ /HPF 11/23/18 18:00 Hyaline Casts 8 /LPF 11/23/18 18:00 Few /HPF 11/23/18 18:00 3+ /HPF 11/23/18 18:00 Random Vancomycin 13.2 ug/mL (0-40.0) 11/08/18 04:23 Salicylates < 0.3 mg/dL (2.8-20.0) L 11/06/18 09:02 Presumptive negative 11/06/18 10:38 Presumptive negative 11/06/18 10:38 Acetaminophen < 5.0 ug/mL (10.0-30.0) L 11/06/18 09:02 Ur Barbiturates Screen Presumptive negative 11/06/18 10:38 Ur Phencyclidine Scrn Presumptive negative 11/06/18 10:38 Ur Amphetamines Screen Presumptive negative 11/06/18 10:38 U Benzodiazepines Scrn Presumptive negative 11/06/18 10:38 Presumptive negative 11/06/18 10:38 U Marijuana (THC) Screen Presumptive positive 11/06/18 10:38 Disclamer 11/06/18 10:38 Plasma/Serum Alcohol < 0.01 % (0-0.07) 11/06/18 09:02 Heparin-induced Plt Ab Positive (Negative) H 11/08/18 21:59 UF Heparin High Dose 0 % Release 11/08/18 21:59 DEBORA UFH Low Dose 0.1 0 % Release 11/08/18 21:59 DEBORA UFH Low Dose 0.5 0 % Release 11/08/18 21:59 Hepatitis A IgM Ab Non-reactive (NonReactive) 11/07/18 13:20 Hep Bs Antigen Non-reactive (Negative) 11/07/18 13:20 Hep B Core IgM Ab Non-reactive (NonReactive) 11/07/18 13:20 Non-reactive (NonReactive) 11/07/18 13:20 Blood Type A POSITIVE 11/06/18 14:15 Antibody Screen Not Reportable 11/06/18 14:15 JANIS Antibody Screen Negative 11/06/18 14:15 Active Medications - Current Medications Current Medications: Generic Name Dose Route Start Last Admin Trade Name Freq PRN Reason Stop Dose Admin Acetaminophen 650 mg 11/06/18 22:22 11/22/18 12:57 Tylenol FEEDTUBE 650 mg Q6H PRN Administration Fever >101 Lipase/Protease/Amylase 1 each 11/08/18 18:[address] 10,500 Unit FEEDTUBE PRN PRN For Clogged Feeding Tube Apixaban 2.5 mg 11/20/18 22:00 11/23/18 21:24 Eliquis FEEDTUBE 2.5 mg BID MARIAJOSE Administration Chlorpromazine HCl 10 mg 11/07/18 08:07 11/22/18 12:56 Thorazine PO 10 mg Q6H PRN Administration Hiccups Clonazepam 0.5 mg 11/12/18 16:49 11/13/18 23:10 Klonopin PO 0.5 mg Q12H PRN Administration myoclonic jerks Dextrose 50 ml 11/07/18 16:46 11/10/18 23:43 D50w (25gm) Syringe IV 50 ml PRN PRN Administration Hypoglycemia Epoetin Enoc 20,000 unit 11/18/18 13:46 11/20/18 21:06 Procrit IV 20,000 unit MARY PRN Administration hemodialysis Fentanyl 50 mcg 11/06/18 08:37 Sublimaze IV Q10MIN PRN ANALGESIA Hydralazine HCl 10 mg 11/08/18 00:56 11/23/18 23:58 Apresoline IV 10 mg Q4H PRN Administration Hypertension Hydralazine HCl 50 mg 11/14/18 09:16 11/24/18 06:36 Apresoline PO 50 mg Q8HR MARIAJOSE Administration Hydrophilic Ointment 1 applic 11/06/18 08:26 11/10/18 19:52 Vaseline Lip Therapy TP 1 applic Q2HR PRN Administration Dry Lips Sodium Chloride 100 mls @ 999 mls/hr 11/14/18 11:33 Nacl 0.9% IV MARY PRN Hypotension Cefepime HCl 1 gm in 100 mls @ 200 mls/hr 11/23/18 17:00 11/23/18 17:07 Maxipime/Ns 1 Gm/100 Ml IV 200 mls/hr Q24HR MARIAJOSE Administration Protocol Insulin Human Regular 100 100 mls @ 1 mls/hr 11/24/18 10:00 units/ Sodium Chloride IV TITR MARIAJOSE Protocol 1 UNITS/HR Labetalol HCl 10 mg 11/19/18 16:09 11/20/18 15:24 Normodyne IV 10 mg Q4H PRN Administration Hypertension Lansoprazole 30 mg 11/09/18 10:00 11/23/18 21:24 Prevacid Solutab FEEDTUBE 30 mg BID MARIAJOSE Administration Levetiracetam 750 mg 11/18/18 10:00 11/23/18 21:25 Keppra PO 750 mg BID MARIAJOSE Administration Lorazepam 2 mg 11/12/18 08:31 11/24/18 03:23 Ativan IV 2 mg Q4H PRN Administration Agitation Metoprolol Tartrate 50 mg 11/14/18 10:00 11/24/18 03:21 Lopressor PO 50 mg Q6H MARIAJOSE Administration Modafinil 200 mg 11/17/18 10:00 11/23/18 09:34 Provigil PO 200 mg QAM MARIAJOSE Administration Multi-Ingred Cream/Lotion/Oil/Oint 1 applic 11/06/18 08:26 Artificial Tears Ophth Oint OU Q4HR PRN Dry Eye(s) Simple Syrup 15 ml 11/08/18 18:38 Simple Syrup FEEDTUBE PRN PRN Hypoglycemia Simple Syrup 30 ml 11/08/18 18:38 Simple Syrup FEEDTUBE PRN PRN Hypoglycemia Sodium Bicarbonate 325 mg 11/08/18 18:38 Sodium Bicarbonate FEEDTUBE PRN PRN For Clogged Feeding Tube Sodium Chloride 10 ml 11/06/18 22:00 11/23/18 21:24 Sodium Chloride Flush Syringe 10 Ml IV 10 ml BID MARIAJOSE Administration Sodium Chloride 10 ml 11/06/18 12:42 11/13/18 10:30 Sodium Chloride Flush Syringe 10 Ml IV 10 ml PRN PRN Administration LINE FLUSH Tamsulosin HCl 0.4 mg 11/10/18 13:00 11/23/18 09:33 Flomax PO 0.4 mg QDAY MARIAJOSE Administration Nutrition/Malnutrition Assess - Dietary Evaluation Nutrition/Malnutrition Findings: Nutrition Notes Start: 11/07/18 14:40 Freq: Status: Active Protocol: Document 11/23/18 16:39 RM (Rec: 11/23/18 16:41 RM [id number]) Nutrition Notes Initial or Follow up Reassessment Current Diagnosis CKD (stage V CKD),Diabetes Other Pertinent Diagnosis on HD, PAD, Anoxic brain injury, Cardiopulmonary arrest , AMS Current Diet Nepro at 50 ml/hr Labs/Tests K 4.5 Pertinent Medications Reviewed Height 6 ft 2 in Weight 101.9 kg [place] Body Weight (kg) 86.36 BMI 28.8 Subjective/Other Information Observed Nepro infusing at goal rate. Per nurse pt is tolerating TF. Percent of energy/protein needs met: 100%/94% Burn Absent Trauma Absent #1 Nutrition Diagnosis Inadequate oral intake Diagnosis Progress(for reassessment Continues documentation) Is patient on ventilator? Yes Is Patient Ambulatory and/or Out of Bed No REE-([facility]-confined to bed) 2395.212 Kcal/Kg value to use for calculation 20 Approximate Energy Requirements Using 2038 kcal/Kg Calculation Used for Recommendations Kcal/kg Additional Notes Protein Needs: 103-172g (1.2- 2g/kg) Fluid Needs: 1 ml/kcal Nutrition Intervention Nutrition Support: Nepro 1.2 at 50 ml/hr. Water flush of 200 mls q 4 hrs . Kcal 2,160 Protein (gm) 97 Fluid (mL) 872 Goal #1 Continue to meet at least 80% of calorie and protein needs via TF Anticipated Discharge Needs: Unable to determine at this time Follow-Up By: 11/30/18 Additional Comments Follow for TF tolerance
[2018-11-24] MEDS: KEPPRA PO SCH ×2 (10:45→22:22)
[2018-11-24] MEDS: PROVIGIL PO SCH (10:45)
[2018-11-24] MEDS: FLOMAX PO SCH (10:46)
[2018-11-24] MEDS: PREVACID SOLUTAB FEEDTUBE SCH ×2 (10:46→22:22)
[2018-11-24] MEDS: SODIUM CHLORIDE FLUSH SYRINGE 10 ML IV SCH ×2 (10:46→22:23)
[2018-11-24] MEDS: ELIQUIS FEEDTUBE SCH ×2 (10:46→22:22)
[2018-11-24] MEDS: HumuLIN R 100 UNITS in NACL 0.9% 99 ML IV SCH (11:00)
[2018-11-24] MEDS: MAXIPIME/NS 1 GM/100 ML 1 GM/100 ML BAG IV SCH (11:17)
--- NOTE | 2018-11-24 11:25 | Progress Note ---
Assessment and Plan Cultures: 11/06/2018 blood culture: No growth 11/06/2018 urine culture: No growth 11/06/2018 sputum culture: Usual respiratory diana 11/18/2018 blood culture: In process 11/18/2018 urine culture: Pseudomonas sensitive to cefepime Assessment: 42-year-old male with ESRD on hemodialysis, hypertension, diabetes mellitus, peripheral vascular disease, tobacco abuse was brought into the emergency room on 11/06/2018 after he was noted to be unresponsive and was found down by the family. EMS intubated the patient and brought him to the ED. Patient had a cardiac arrest in the emergency room requiring ACLS. Subsequently, he had ROSC. Prolonged hospital stay, concerning for anoxic brain injury, now s/p trach and PEG. 1) Sepsis: still fever,possibly related to UTI +/- ?central fever. UA showed pyuria with urine culture growing Pseudomonas. Chest x-ray today does not suggest any pneumonia. Blood cultures so far have been negative. Repeat CXR negative. 2) Anoxic encephalopathy, status post cardiopulmonary arrest 3) ESRD: On dialysis. Renally dose abx. 4) DM, uncontrolled, admitted with DKA 5) Shock liver on admission, now resolved 6) Reactive thrombocytosis 7) UTI due to Pseudomonas: ? suspect bladder retention, bladder scan +350cc s/p straight cath +230cc. Renal US shows medical renal disease and distended bladder with exaggerated thickness. Recs: continue Cefepime 1 gm q24 hrs renally adjusted D3 repeat bladder scan and if still high then place a ramirez cath f/u repeat head CT will follow Joyce Blackwell MD Infectious Diseases College Ad[employer] [facility] M [phone] O [phone] Subjective Date of service: 11/24/18 Principal diagnosis: Ac hypoxemic resp failure; DKA; Severe sepsis with shock; ESRD on dialysis Interval history: Remains non verbal noted fever 100.2, mother at bedside. ROS unable to obtain Objective - Exam Narrative Exam: General: unresponsive non verbal on CPAP Head, Ears, Nose: Normocephalic, atraumatic. External ears, nose normal Eyes: Conjunctivae/corneas clear. No icterus. No ptosis. Neck: trach + Oral: unable to examine Cardiovascular: S1, S2 normal. Respiratory: b/l rhonchi + GI: Soft; bowel sounds normal. No peritoneal signs. PEG + Musculoskeletal: +herminio pedal edema, no cyanosis. LUE AVF + with thrill. Right arm midline + Skin: right foot intact bulla Hem/Lymphatic: No palpable cervical or supraclavicular nodes. No lymphangitis Psych: no agitation Neurological: unresponsive - Constitutional Vitals: Vital Signs Temp Pulse Resp BP Pulse Ox 100.4 F H 106 H 20 158/83 100 11/24/18 08:00 11/24/18 10:41 11/24/18 06:30 11/24/18 08:48 11/24/18 10:41 Temperature -Last 24 Hours Temperature 100.4 F Temperature 100.1 F Temperature 100.2 F Temperature 99.6 F Temperature 100.4 F Temperature 99.9 F Temperature 99.9 F - Labs CBC & Chem 7: 11/24/18 05:18 11/24/18 05:18 Labs: Abnormal lab results 11/23/18 11/23/18 11/23/18 Range/Units 12:05 18:00 18:16 RBC (3.65-5.03) M/mm3 Hgb (11.8-15.2) gm/dl Hct (35.5-45.6) % Plt Count (140-440) K/mm3 [place] % (Auto) (0.0-7.3) % Howard # (0.0-0.8) K/mm3 Seg Neutrophils % (40.0-70.0) % Seg Neutrophils # (1.8-7.7) K/mm3 Chloride (98-107) mmol/L BUN (9-20) mg/dL Creatinine (0.8-1.5) mg/dL Glucose (75-100) mg/dL POC Glucose 335 H 401 H (70-105) Phosphorus (2.5-4.5) mg/dL Urine WBC (Auto) > 182.0 H (0.0-6.0) /HPF 11/23/18 11/23/18 11/24/18 Range/Units 21:28 23:02 05:18 RBC 2.44 L (3.65-5.03) M/mm3 Hgb 7.4 L (11.8-15.2) gm/dl Hct 21.9 L (35.5-45.6) % Plt Count 447 H (140-440) K/mm3 Howard % (Auto) 10.1 H (0.0-7.3) % Howard # 1.1 H (0.0-0.8) K/mm3 Seg Neutrophils % 75.4 H (40.0-70.0) % Seg Neutrophils # 8.0 H (1.8-7.7) K/mm3 Chloride (98-107) mmol/L BUN (9-20) mg/dL Creatinine (0.8-1.5) mg/dL Glucose (75-100) mg/dL POC Glucose 326 H 305 H (70-105) Phosphorus (2.5-4.5) mg/dL Urine WBC (Auto) (0.0-6.0) /HPF 11/24/18 11/24/18 Range/Units 05:18 05:32 RBC (3.65-5.03) M/mm3 Hgb (11.8-15.2) gm/dl Hct (35.5-45.6) % Plt Count (140-440) K/mm3 [place] % (Auto) (0.0-7.3) % Howard # (0.0-0.8) K/mm3 Seg Neutrophils % (40.0-70.0) % Seg Neutrophils # (1.8-7.7) K/mm3 Chloride 91.7 L (98-107) mmol/L BUN 88 H (9-20) mg/dL Creatinine 11.3 H (0.8-1.5) mg/dL Glucose 320 H (75-100) mg/dL POC Glucose 356 H (70-105) Phosphorus 6.60 H D (2.5-4.5) mg/dL Urine WBC (Auto) (0.0-6.0) /HPF
--- NOTE | 2018-11-24 11:36 | Cat Scan Report ---
PROCEDURE: CT HEAD/BRAIN WO CON TECHNIQUE: Computerized tomography of the head was performed without contrast material. CT DOSE LENGTH PRODUCT: 1460.7 mGy-cm. HISTORY: persistent fever ? central fever COMPARISONS: None currently available. FINDINGS: Decreased attenuation regions in the periventricular and subcortical white matter are nonspecific and may represent small vessel ischemic disease, encephalopathy, infection edema, or a demyelinating pro cess. Vascular calcifications. There is no evidence for acute ischemia. There is no hemorrhage. There is no midline shift. There is no hydrocephalus. There is no mass. Age appropriate gill-white matter attenuation is noted. There is no calvarial fracture. The temporal bones demonstrate aerated mastoid air cells. The middle ears appear unremarkable. Paranasal sinuses are unremarkable. Globes are intact. IMPRESSION: * Nonspecific decreased attenuation in the white matter. Further evaluation with MRI may be helpful if clinically indicated. * Otherwise, no acute intracranial findings. This document is electronically signed by Robel Groves MD., November 24 2018 11:34:03 AM ET
--- NOTE | 2018-11-24 11:39 | Cat Scan Report ---
PROCEDURE: CT SINUSES WO CON TECHNIQUE: Computerized axial tomography of the paranasal sinuses was performed. Automated exposure control, adjustment of mA and/or kV according to patient size, or iterative reconstruction dose optim ization techniques were utilized. HISTORY: persistent fever ? sinusitis COMPARISONS: None currently available. FINDINGS: Paranasal sinuses are developed. Bilateral johanny bullosa. Minimal mucosal thickening in the right ethmoid sinuses. No opacification. No air-fluid levels. No na margaret cavity lesions identified. There is no fracture. Nasal septum is deviated to the right with spur. Globes appear intact. Retrobulbar space is negative. Images of the middle ear and mastoid air cells are negative. Images of the temporal mandibular joint are unremarkable. The infratemporal fossa is unremarkable. Facial soft tissues are grossly noted. IMPRESSION: * Minimal to mild right ethmoid sinus disease. * Bilateral johanny bullosa. * Deviated nasal septum. This document is electronically signed by Robel Groves MD., November 24 2018 11:37:20 AM ET
--- NOTE | 2018-11-24 14:12 | Progress Note ---
Assessment and Plan Acute hypoxemic respiratory failure, on mechanical ventilator support. Diabetic ketoacidosis. Severe metabolic acidosis. Severe sepsis with shock. Acute encephalopathy that appears to be toxic metabolic. End-stage renal disease, on dialysis. Hyperkalemia at presentation. Diabetes. Peripheral vascular disease. Anemia that is macrocytic. Elevated serum transaminases, likely representing shock liver. Mild hyponatremia, pseudohyponatremia actually. Lactic acidosis. (AMS remains a rate limiting factor to safe extubation and he will likely need a tracheostomy) - continue daytime t-piece trials as tolerated - neurology re-evaluation requested - MRI brain likely thereafter - continue daily SAT's and SBT assessment as tolerated - prn sedation target for RASS 0 to -1 - continue to wean supplemental oxygen to keep O2 sats > 90% - EEG Impression noted re: [Anoxic brain injury with interval improvement of clinical status. I have reviewed the EEG which does not show any epileptiform activity or seizure activity. The background rhythm is a little slow other than that EEG is normal] - continue Provigil - continue baclofen for myoclonic activity / hiccups - follow clinically off AB's for now ) - continue bronchodilators with pulmonary hygiene per RT - Lung protective strategies - VAP bundle addressed - continue HD/UF as tolerated for toxin and volume clearance - neurology evaluation ongoing - Monitor renal indices closely - continue to avoid nephrotoxic agents, adjust all medications for CrCL - Strict intake and output monitoring - continue enteral nutrition as tolerated - continue accuchecks with glycemic control per SSI for target glucose of 140- 180 mg/dL - Maintenance of sleep -wake cycle - Mobility protocol for pressure ulcer prophylaxis - continue GI & VTE prophylaxis - Influenza and pneumonia vaccination per protocol - discharge planning ongoing concurrently ... care plan discussed at length with mother and sister .... re-evaluate in am & prn PROGNOSIS: GUARDED CONDITION: CRITICAL CODE STATUS: FULL CODE The high probability of a clinically significant, sudden or life-threatening deterioration of the [respiratory, neurology, renal] system(s) required my full and direct attention, intervention and personal management. The aggregate cr itical care time was [36] minutes without overlap. Time includes spent on; [x] Data Review and interpretation [x] Patient assessment and monitoring of vital signs [x] Documentation [x] Medication orders and management Subjective Date of service: 11/24/18 Principal diagnosis: Ac hypoxemic resp failure; DKA; Severe sepsis with shock; ESRD on dialysis Interval history: Patient is seen today for: Acute hypoxemic respiratory failure on MVS; DKA; Severe metabolic acidosis; Severe sepsis with shock; Acute encephalopathy that appears to be toxic metabolic; ESRD on dialysis; DM II; Peripheral vascular disease. Seen and examined at bedside; 24hour events reviewed; nursing and respiratory care staff consulted; no adverse overnight events reported to me; remained on MVS overnight; on T-piece trial now and tolerating well; CT brain suggests some decreased white matter attenuation that may be prognostic; no new issues otherwise Objective Vital Signs - 12hr 11/24/18 11/24/18 11/24/18 02:30 02:40 03:00 Temperature 100.1 F H Pulse Rate 109 H 111 H Respiratory 22 21 Rate Blood Pressure 160/74 163/77 O2 Sat by Pulse 100 100 Oximetry O2 Sat by Pulse Oximetry [ Assessment] 11/24/18 11/24/18 11/24/18 03:21 03:30 04:00 Temperature Pulse Rate 111 H 103 H 94 H Respiratory 20 17 Rate Blood Pressure 180/87 111/61 103/62 O2 Sat by Pulse 100 100 Oximetry O2 Sat by Pulse Oximetry [ Assessment] 11/24/18 11/24/18 11/24/18 04:30 05:00 05:01 Temperature Pulse Rate 91 H 99 H 97 H Respiratory 20 20 Rate Blood Pressure 100/70 149/73 149/73 O2 Sat by Pulse 100 100 100 Oximetry O2 Sat by Pulse Oximetry [ Assessment] 11/24/18 11/24/18 11/24/18 05:30 06:00 06:30 Temperature Pulse Rate 96 H 95 H 97 H Respiratory 19 20 20 Rate Blood Pressure 129/70 116/67 126/72 O2 Sat by Pulse 100 100 99 Oximetry O2 Sat by Pulse Oximetry [ Assessment] 11/24/18 11/24/18 11/24/18 06:36 07:00 07:30 Temperature Pulse Rate 105 H 109 H 105 H Respiratory 13 16 Rate Blood Pressure 126/72 165/73 157/78 O2 Sat by Pulse 100 100 Oximetry O2 Sat by Pulse Oximetry [ Assessment] 11/24/18 11/24/18 11/24/18 08:00 08:30 08:48 Temperature 100.4 F H Pulse Rate 104 H 110 H 100 H Respiratory 21 10 L Rate Blood Pressure 101/68 158/83 158/83 O2 Sat by Pulse 100 100 100 Oximetry O2 Sat by Pulse 100 Oximetry [ Assessment] 11/24/18 11/24/18 11/24/18 09:00 09:30 10:00 Temperature Pulse Rate 108 H 111 H 108 H Respiratory 28 H 24 20 Rate Blood Pressure 184/82 175/72 151/77 O2 Sat by Pulse 100 100 100 Oximetry O2 Sat by Pulse Oximetry [ Assessment] 11/24/18 11/24/18 11/24/18 10:40 10:41 11:00 Temperature Pulse Rate 103 H 106 H 108 H Respiratory 18 24 Rate Blood Pressure 166/77 O2 Sat by Pulse 100 100 100 Oximetry O2 Sat by Pulse Oximetry [ Assessment] 11/24/18 11/24/18 11/24/18 11:30 12:00 12:11 Temperature 99.0 F Pulse Rate 114 H 108 H 97 H Respiratory 27 H Rate Blood Pressure 169/69 131/65 121/57 O2 Sat by Pulse 100 100 Oximetry O2 Sat by Pulse Oximetry [ Assessment] 11/24/18 14:00 Temperature Pulse Rate 116 H Respiratory Rate Blood Pressure 200/80 O2 Sat by Pulse Oximetry O2 Sat by Pulse Oximetry [ Assessment] Constitutional: appears uncomfortable, other (middle aged AAM, normocephalic and atraumatic on MVS) Eyes: non-icteric ENT: oropharynx moist, other (s/p tracheostomy) Neck: supple, no lymphadenopathy, no JVD Effort: mildly labored Ascultation: Bilateral: rhonchi Percussion: Bilateral: not dull Cardiovascular: regular rate and rhythm Gastrointestinal: normoactive bowel sounds, soft, non-tender, non-distended Integumentary: rash Extremities: no cyanosis, pulses normal, no ischemia or petechiae, edema Neurologic: pupils equal and round (minimally reactive), unable to assess, other (incresased spontaneous eye opening) Psychiatric: other (unable to assess re: AMS) CBC and BMP: 11/25/18 04:14 11/25/18 04:14 ABG, PT/INR, D-dimer: ABG POC ABG pH 7.473 (7.35-7.45) H 11/21/18 10:45 POC ABG pCO2 45.0 (35-45) 11/21/18 10:45 POC ABG pO2 121 (80-105) H 11/21/18 10:45 POC ABG HCO3 33.0 (22-26 mml/L) 11/21/18 10:45 POC ABG Total CO2 34 (23-27mmol/L) 11/21/18 10:45 POC ABG O2 Sat 99 11/21/18 10:45 Abnormal lab findings: Abnormal Labs 11/06/18 11/06/18 11/06/18 08:22 09:02 09:02 WBC 20.1 H RBC 3.40 L Hgb 10.5 L Hct MCV 119 H MCHC 26 L RDW 15.7 H Plt Count Lymph % (Auto) [place] % (Auto) Lymph # [place] # Seg Neutrophils % 80.1 H Seg Neuts % (Manual) 76.0 H Lymphocytes % (Manual) 4.0 L Monocytes % (Manual) Nucleated RBC % 1.0 H Seg Neutrophils # 16.1 H Seg Neutrophils # Man 15.3 H Lymphocytes # (Manual) 0.8 L Monocytes # (Manual) POC ABG pH POC ABG pCO2 POC ABG pO2 VBG pH Sodium 129 L Potassium 7.7 H* Chloride 79.7 L Carbon Dioxide 4 L* BUN 93 H Creatinine 7.4 H Glucose 1469 H* POC Glucose > 500 H Hemoglobin A1c Lactic Acid Calcium Phosphorus Magnesium Direct Bilirubin AST 2679 H ALT 1175 H C-Reactive Protein Total Protein 6.1 L Albumin 2.9 L Urine WBC (Auto) Salicylates Acetaminophen Heparin-induced Plt Ab 11/06/18 11/06/18 11/06/18 09:02 09:02 09:02 WBC RBC Hgb Hct MCV MCHC RDW Plt Count Lymph % (Auto) [place] % (Auto) Lymph # [place] # Seg Neutrophils % Seg Neuts % (Manual) Lymphocytes % (Manual) Monocytes % (Manual) Nucleated RBC % Seg Neutrophils # Seg Neutrophils # Man Lymphocytes # (Manual) Monocytes # (Manual) POC ABG pH POC ABG pCO2 POC ABG pO2 VBG pH Sodium Potassium Chloride Carbon Dioxide BUN Creatinine Glucose POC Glucose Hemoglobin A1c Lactic Acid 9.40 H* Calcium Phosphorus Magnesium Direct Bilirubin AST ALT C-Reactive Protein Total Protein Albumin Urine WBC (Auto) Salicylates < 0.3 L Acetaminophen < 5.0 L Heparin-induced Plt Ab 11/06/18 11/06/18 11/06/18 09:03 10:19 10:19 WBC RBC Hgb Hct MCV MCHC RDW Plt Count Lymph % (Auto) [place] % (Auto) Lymph # [place] # Seg Neutrophils % Seg Neuts % (Manual) Lymphocytes % (Manual) Monocytes % (Manual) Nucleated RBC % Seg Neutrophils # Seg Neutrophils # Man Lymphocytes # (Manual) Monocytes # (Manual) POC ABG pH 6.841 L POC ABG pCO2 POC ABG pO2 VBG pH Sodium 131 L Potassium 8.9 H* Chloride 85.3 L Carbon Dioxide 6 L* BUN 90 H Creatinine 7.1 H Glucose 1353 H* POC Glucose Hemoglobin A1c Lactic Acid Calcium 7.8 L Phosphorus 14.50 H Magnesium 2.70 H Direct Bilirubin AST ALT C-Reactive Protein Total Protein Albumin Urine WBC (Auto) Salicylates Acetaminophen Heparin-induced Plt Ab 11/06/18 11/06/18 11/06/18 12:07 13:22 13:22 WBC RBC Hgb Hct MCV MCHC RDW Plt Count Lymph % (Auto) [place] % (Auto) Lymph # [place] # Seg Neutrophils % Seg Neuts % (Manual) Lymphocytes % (Manual) Monocytes % (Manual) Nucleated RBC % Seg Neutrophils # Seg Neutrophils # Man Lymphocytes # (Manual) Monocytes # (Manual) POC ABG pH POC ABG pCO2 POC ABG pO2 VBG pH 6.982 L* Sodium 135 L Potassium 7.0 H* D Chloride 88.4 L Carbon Dioxide 5 L* BUN 89 H Creatinine 7.2 H Glucose 1326 H* POC Glucose Hemoglobin A1c Lactic Acid 8.50 H* Calcium Phosphorus Magnesium Direct Bilirubin AST ALT C-Reactive Protein Total Protein Albumin Urine WBC (Auto) Salicylates Acetaminophen Heparin-induced Plt Ab 11/06/18 11/06/18 11/06/18 14:15 14:15 15:21 WBC RBC Hgb Hct MCV MCHC RDW Plt Count Lymph % (Auto) [place] % (Auto) Lymph # [place] # Seg Neutrophils % Seg Neuts % (Manual) Lymphocytes % (Manual) Monocytes % (Manual) Nucleated RBC % Seg Neutrophils # Seg Neutrophils # Man Lymphocytes # (Manual) Monocytes # (Manual) POC ABG pH POC ABG pCO2 POC ABG pO2 VBG pH Sodium Potassium 6.6 H* 6.0 H Chloride 95.3 L 93.3 L Carbon Dioxide 4 L* 6 L* BUN 83 H 91 H Creatinine 6.9 H 7.3 H Glucose 1205 H* 1174 H* POC Glucose Hemoglobin A1c Lactic Acid Calcium 8.2 L Phosphorus 13.00 H Magnesium 2.60 H Direct Bilirubin AST ALT C-Reactive Protein Total Protein Albumin Urine WBC (Auto) Salicylates Acetaminophen Heparin-induced Plt Ab 11/06/18 11/06/18 11/06/18 15:21 16:14 16:33 WBC RBC Hgb Hct MCV MCHC RDW Plt Count Lymph % (Auto) [place] % (Auto) Lymph # [place] # Seg Neutrophils % Seg Neuts % (Manual) Lymphocytes % (Manual) Monocytes % (Manual) Nucleated RBC % Seg Neutrophils # Seg Neutrophils # Man Lymphocytes # (Manual) Monocytes # (Manual) POC ABG pH 7.004 L POC ABG pCO2 33.0 L POC ABG pO2 178 H VBG pH Sodium Potassium Chloride Carbon Dioxide BUN Creatinine Glucose POC Glucose > 500 H Hemoglobin A1c Lactic Acid 7.60 H* Calcium Phosphorus Magnesium Direct Bilirubin AST ALT C-Reactive Protein Total Protein Albumin Urine WBC (Auto) Salicylates Acetaminophen Heparin-induced Plt Ab 11/06/18 11/06/18 11/06/18 17:34 19:30 19:30 WBC RBC Hgb Hct MCV MCHC RDW Plt Count Lymph % (Auto) [place] % (Auto) Lymph # [place] # Seg Neutrophils % Seg Neuts % (Manual) Lymphocytes % (Manual) Monocytes % (Manual) Nucleated RBC % Seg Neutrophils # Seg Neutrophils # Man Lymphocytes # (Manual) Monocytes # (Manual) POC ABG pH POC ABG pCO2 POC ABG pO2 VBG pH Sodium Potassium 5.5 H Chloride 97.4 L 97.7 L Carbon Dioxide 10 L 11 L BUN 88 H 87 H Creatinine 7.5 H 7.6 H Glucose 1054 H* 954 H* POC Glucose Hemoglobin A1c Lactic Acid Calcium 7.7 L 7.4 L Phosphorus Magnesium Direct Bilirubin AST ALT C-Reactive Protein 1.90 H Total Protein Albumin Urine WBC (Auto) Salicylates Acetaminophen Heparin-induced Plt Ab 11/06/18 11/06/18 11/06/18 20:31 20:40 20:40 WBC RBC Hgb Hct MCV MCHC RDW Plt Count Lymph % (Auto) [place] % (Auto) Lymph # [place] # Seg Neutrophils % Seg Neuts % (Manual) Lymphocytes % (Manual) Monocytes % (Manual) Nucleated RBC % Seg Neutrophils # Seg Neutrophils # Man Lymphocytes # (Manual) Monocytes # (Manual) POC ABG pH 7.245 L POC ABG pCO2 POC ABG pO2 132 H VBG pH Sodium Potassium Chloride Carbon Dioxide BUN Creatinine Glucose 907 H* POC Glucose Hemoglobin A1c Lactic Acid 4.40 H* Calcium Phosphorus Magnesium Direct Bilirubin AST ALT C-Reactive Protein Total Protein Albumin Urine WBC (Auto) Salicylates Acetaminophen Heparin-induced Plt Ab 11/06/18 11/06/18 11/06/18 22:05 22:40 23:35 WBC RBC Hgb Hct MCV MCHC RDW Plt Count Lymph % (Auto) [place] % (Auto) Lymph # [place] # Seg Neutrophils % Seg Neuts % (Manual) Lymphocytes % (Manual) Monocytes % (Manual) Nucleated RBC % Seg Neutrophils # Seg Neutrophils # Man Lymphocytes # (Manual) Monocytes # (Manual) POC ABG pH POC ABG pCO2 POC ABG pO2 VBG pH Sodium Potassium Chloride Carbon Dioxide 13 L BUN 86 H Creatinine 7.8 H Glucose 822 H* 726 H* POC Glucose Hemoglobin A1c Lactic Acid 3.40 H* Calcium 7.5 L Phosphorus Magnesium Direct Bilirubin AST ALT C-Reactive Protein Total Protein Albumin Urine WBC (Auto) Salicylates Acetaminophen Heparin-induced Plt Ab 11/07/18 11/07/18 11/07/18 01:25 01:26 03:15 WBC RBC Hgb Hct MCV MCHC RDW Plt Count Lymph % (Auto) [place] % (Auto) Lymph # [place] # Seg Neutrophils % Seg Neuts % (Manual) Lymphocytes % (Manual) Monocytes % (Manual) Nucleated RBC % Seg Neutrophils # Seg Neutrophils # Man Lymphocytes # (Manual) Monocytes # (Manual) POC ABG pH POC ABG pCO2 POC ABG pO2 VBG pH Sodium Potassium Chloride Carbon Dioxide BUN Creatinine Glucose 602 H* POC Glucose > 500 H > 500 H Hemoglobin A1c Lactic Acid Calcium Phosphorus Magnesium Direct Bilirubin AST ALT C-Reactive Protein Total Protein Albumin Urine WBC (Auto) Salicylates Acetaminophen Heparin-induced Plt Ab 11/07/18 11/07/18 11/07/18 03:20 04:32 04:47 WBC RBC Hgb Hct MCV MCHC RDW Plt Count Lymph % (Auto) [place] % (Auto) Lymph # [place] # Seg Neutrophils % Seg Neuts % (Manual) Lymphocytes % (Manual) Monocytes % (Manual) Nucleated RBC % Seg Neutrophils # Seg Neutrophils # Man Lymphocytes # (Manual) Monocytes # (Manual) POC ABG pH POC ABG pCO2 30.3 L POC ABG pO2 153 H VBG pH Sodium 149 H Potassium Chloride Carbon Dioxide 16 L BUN 86 H Creatinine 8.3 H Glucose 499.2 H POC Glucose 360 H Hemoglobin A1c Lactic Acid Calcium 7.6 L Phosphorus Magnesium Direct Bilirubin AST ALT C-Reactive Protein Total Protein Albumin Urine WBC (Auto) Salicylates Acetaminophen Heparin-induced Plt Ab 11/07/18 11/07/18 11/07/18 05:26 06:35 06:36 WBC RBC Hgb Hct MCV MCHC RDW Plt Count Lymph % (Auto) [place] % (Auto) Lymph # [place] # Seg Neutrophils % Seg Neuts % (Manual) Lymphocytes % (Manual) Monocytes % (Manual) Nucleated RBC % Seg Neutrophils # Seg Neutrophils # Man Lymphocytes # (Manual) Monocytes # (Manual) POC ABG pH POC ABG pCO2 POC ABG pO2 VBG pH Sodium 153 H Potassium 3.2 L Chloride 109.7 H Carbon Dioxide BUN 84 H Creatinine 8.6 H Glucose 249 H POC Glucose 341 H 274 H Hemoglobin A1c Lactic Acid Calcium 7.6 L Phosphorus Magnesium Direct Bilirubin AST ALT C-Reactive Protein Total Protein Albumin Urine WBC (Auto) Salicylates Acetaminophen Heparin-induced Plt Ab 11/07/18 11/07/18 11/07/18 07:33 09:00 09:52 WBC RBC Hgb Hct MCV MCHC RDW Plt Count Lymph % (Auto) [place] % (Auto) Lymph # [place] # Seg Neutrophils % Seg Neuts % (Manual) Lymphocytes % (Manual) Monocytes % (Manual) Nucleated RBC % Seg Neutrophils # Seg Neutrophils # Man Lymphocytes # (Manual) Monocytes # (Manual) POC ABG pH POC ABG pCO2 POC ABG pO2 VBG pH Sodium Potassium Chloride Carbon Dioxide BUN Creatinine Glucose POC Glucose 243 H 182 H 227 H Hemoglobin A1c Lactic Acid Calcium Phosphorus Magnesium Direct Bilirubin AST ALT C-Reactive Protein Total Protein Albumin Urine WBC (Auto) Salicylates Acetaminophen Heparin-induced Plt Ab 11/07/18 11/07/18 11/07/18 10:50 10:50 10:50 WBC 11.3 H RBC 2.85 L Hgb 8.7 L Hct 25.3 L D MCV MCHC RDW Plt Count Lymph % (Auto) 9.7 L [place] % (Auto) Lymph # 1.1 L [place] # Seg Neutrophils % 83.3 H Seg Neuts % (Manual) Lymphocytes % (Manual) Monocytes % (Manual) Nucleated RBC % Seg Neutrophils # 9.4 H Seg Neutrophils # Man Lymphocytes # (Manual) Monocytes # (Manual) POC ABG pH POC ABG pCO2 POC ABG pO2 VBG pH Sodium 154 H Potassium 3.2 L Chloride 110.2 H Carbon Dioxide BUN 82 H Creatinine 8.3 H Glucose 186 H POC Glucose 200 H Hemoglobin A1c Lactic Acid Calcium 7.3 L Phosphorus Magnesium Direct Bilirubin AST ALT C-Reactive Protein Total Protein Albumin Urine WBC (Auto) Salicylates Acetaminophen Heparin-induced Plt Ab 11/07/18 11/07/18 11/07/18 12:00 12:05 13:13 WBC RBC Hgb Hct MCV MCHC RDW Plt Count Lymph % (Auto) [place] % (Auto) Lymph # [place] # Seg Neutrophils % Seg Neuts % (Manual) Lymphocytes % (Manual) Monocytes % (Manual) Nucleated RBC % Seg Neutrophils # Seg Neutrophils # Man Lymphocytes # (Manual) Monocytes # (Manual) POC ABG pH POC ABG pCO2 POC ABG pO2 VBG pH Sodium Potassium Chloride Carbon Dioxide BUN Creatinine Glucose POC Glucose 179 H 190 H Hemoglobin A1c Lactic Acid 2.50 H* Calcium Phosphorus Magnesium Direct Bilirubin AST ALT C-Reactive Protein Total Protein Albumin Urine WBC (Auto) Salicylates Acetaminophen Heparin-induced Plt Ab 11/07/18 11/07/18 11/07/18 13:20 14:05 15:18 WBC RBC Hgb Hct MCV MCHC RDW Plt Count Lymph % (Auto) [place] % (Auto) Lymph # [place] # Seg Neutrophils % Seg Neuts % (Manual) Lymphocytes % (Manual) Monocytes % (Manual) Nucleated RBC % Seg Neutrophils # Seg Neutrophils # Man Lymphocytes # (Manual) Monocytes # (Manual) POC ABG pH POC ABG pCO2 POC ABG pO2 VBG pH Sodium Potassium 3.1 L Chloride Carbon Dioxide BUN 50 H Creatinine 5.0 H Glucose 176 H POC Glucose 189 H 215 H Hemoglobin A1c Lactic Acid Calcium 7.4 L Phosphorus Magnesium Direct Bilirubin AST ALT C-Reactive Protein Total Protein Albumin Urine WBC (Auto) Salicylates Acetaminophen Heparin-induced Plt Ab 11/07/18 11/07/18 11/07/18 16:25 17:37 23:23 WBC RBC Hgb Hct MCV MCHC RDW Plt Count Lymph % (Auto) [place] % (Auto) Lymph # [place] # Seg Neutrophils % Seg Neuts % (Manual) Lymphocytes % (Manual) Monocytes % (Manual) Nucleated RBC % Seg Neutrophils # Seg Neutrophils # Man Lymphocytes # (Manual) Monocytes # (Manual) POC ABG pH POC ABG pCO2 POC ABG pO2 VBG pH Sodium Potassium Chloride Carbon Dioxide BUN Creatinine Glucose POC Glucose 180 H 215 H 234 H Hemoglobin A1c Lactic Acid Calcium Phosphorus Magnesium Direct Bilirubin AST ALT C-Reactive Protein Total Protein Albumin Urine WBC (Auto) Salicylates Acetaminophen Heparin-induced Plt Ab 11/08/18 11/08/18 11/08/18 04:17 04:23 04:23 WBC RBC 2.98 L Hgb 9.3 L Hct 26.7 L MCV MCHC 35 H RDW Plt Count 130 L Lymph % (Auto) [place] % (Auto) Lymph # [place] # Seg Neutrophils % 80.3 H Seg Neuts % (Manual) Lymphocytes % (Manual) Monocytes % (Manual) Nucleated RBC % Seg Neutrophils # 7.8 H Seg Neutrophils # Man Lymphocytes # (Manual) Monocytes # (Manual) POC ABG pH 7.520 H POC ABG pCO2 POC ABG pO2 111 H VBG pH Sodium Potassium 3.0 L Chloride Carbon Dioxide BUN 44 H Creatinine 6.3 H Glucose 245 H POC Glucose Hemoglobin A1c Lactic Acid Calcium 7.3 L Phosphorus Magnesium Direct Bilirubin AST ALT C-Reactive Protein Total Protein Albumin Urine WBC (Auto) Salicylates Acetaminophen Heparin-induced Plt Ab 11/08/18 11/08/18 11/08/18 05:19 08:00 08:00 WBC RBC Hgb Hct MCV MCHC RDW Plt Count Lymph % (Auto) [place] % (Auto) Lymph # [place] # Seg Neutrophils % Seg Neuts % (Manual) Lymphocytes % (Manual) Monocytes % (Manual) Nucleated RBC % Seg Neutrophils # Seg Neutrophils # Man Lymphocytes # (Manual) Monocytes # (Manual) POC ABG pH POC ABG pCO2 POC ABG pO2 VBG pH Sodium Potassium Chloride Carbon Dioxide BUN Creatinine Glucose POC Glucose 253 H Hemoglobin A1c Lactic Acid 2.70 H* Calcium Phosphorus Magnesium Direct Bilirubin 0.3 H AST 932 H ALT 582 H C-Reactive Protein Total Protein 5.4 L Albumin 2.6 L Urine WBC (Auto) Salicylates Acetaminophen Heparin-induced Plt Ab 11/08/18 11/08/18 11/08/18 11:36 17:51 21:59 WBC RBC Hgb Hct MCV MCHC RDW Plt Count Lymph % (Auto) [place] % (Auto) Lymph # [place] # Seg Neutrophils % Seg Neuts % (Manual) Lymphocytes % (Manual) Monocytes % (Manual) Nucleated RBC % Seg Neutrophils # Seg Neutrophils # Man Lymphocytes # (Manual) Monocytes # (Manual) POC ABG pH 7.459 H POC ABG pCO2 POC ABG pO2 108 H VBG pH Sodium Potassium Chloride Carbon Dioxide BUN Creatinine Glucose POC Glucose 197 H Hemoglobin A1c Lactic Acid Calcium Phosphorus Magnesium Direct Bilirubin AST ALT C-Reactive Protein Total Protein Albumin Urine WBC (Auto) Salicylates Acetaminophen Heparin-induced Plt Ab Positive H 11/08/18 11/09/18 11/09/18 23:28 00:39 02:20 WBC RBC Hgb Hct MCV MCHC RDW Plt Count Lymph % (Auto) [place] % (Auto) Lymph # [place] # Seg Neutrophils % Seg Neuts % (Manual) Lymphocytes % (Manual) Monocytes % (Manual) Nucleated RBC % Seg Neutrophils # Seg Neutrophils # Man Lymphocytes # (Manual) Monocytes # (Manual) POC ABG pH POC ABG pCO2 POC ABG pO2 VBG pH Sodium Potassium Chloride Carbon Dioxide BUN Creatinine Glucose POC Glucose 418 H 471 H 254 H Hemoglobin A1c Lactic Acid Calcium Phosphorus Magnesium Direct Bilirubin AST ALT C-Reactive Protein Total Protein Albumin Urine WBC (Auto) Salicylates Acetaminophen Heparin-induced Plt Ab 11/09/18 11/09/18 11/09/18 03:48 06:02 06:02 WBC RBC 2.95 L Hgb 9.2 L Hct 26.7 L MCV MCHC RDW Plt Count 101 L Lymph % (Auto) [place] % (Auto) Lymph # [place] # Seg Neutrophils % Seg Neuts % (Manual) Lymphocytes % (Manual) Monocytes % (Manual) Nucleated RBC % Seg Neutrophils # Seg Neutrophils # Man Lymphocytes # (Manual) Monocytes # (Manual) POC ABG pH POC ABG pCO2 POC ABG pO2 108 H VBG pH Sodium 150 H Potassium Chloride 108.3 H Carbon Dioxide BUN 44 H Creatinine 7.7 H Glucose 102 H POC Glucose Hemoglobin A1c Lactic Acid Calcium 7.2 L Phosphorus Magnesium Direct Bilirubin AST 554 H ALT 461 H C-Reactive Protein Total Protein 5.1 L Albumin 2.6 L Urine WBC (Auto) Salicylates Acetaminophen Heparin-induced Plt Ab 11/09/18 11/09/18 11/09/18 17:49 18:49 23:32 WBC RBC Hgb Hct MCV MCHC RDW Plt Count Lymph % (Auto) [place] % (Auto) Lymph # [place] # Seg Neutrophils % Seg Neuts % (Manual) Lymphocytes % (Manual) Monocytes % (Manual) Nucleated RBC % Seg Neutrophils # Seg Neutrophils # Man Lymphocytes # (Manual) Monocytes # (Manual) POC ABG pH POC ABG pCO2 46.2 H POC ABG pO2 VBG pH Sodium Potassium Chloride Carbon Dioxide BUN Creatinine Glucose POC Glucose 184 H 150 H Hemoglobin A1c Lactic Acid Calcium Phosphorus Magnesium Direct Bilirubin AST ALT C-Reactive Protein Total Protein Albumin Urine WBC (Auto) Salicylates Acetaminophen Heparin-induced Plt Ab 11/10/18 11/10/18 11/10/18 02:52 05:00 05:00 WBC RBC 2.95 L Hgb 8.9 L Hct 26.6 L MCV MCHC RDW Plt Count 100 L Lymph % (Auto) [place] % (Auto) Lymph # [place] # Seg Neutrophils % Seg Neuts % (Manual) Lymphocytes % (Manual) Monocytes % (Manual) 8.0 H Nucleated RBC % Seg Neutrophils # Seg Neutrophils # Man Lymphocytes # (Manual) Monocytes # (Manual) POC ABG pH POC ABG pCO2 POC ABG pO2 VBG pH Sodium Potassium Chloride Carbon Dioxide BUN 33 H Creatinine 6.8 H Glucose 251 H POC Glucose 186 H Hemoglobin A1c Lactic Acid Calcium 7.3 L Phosphorus Magnesium Direct Bilirubin AST ALT C-Reactive Protein Total Protein Albumin Urine WBC (Auto) Salicylates Acetaminophen Heparin-induced Plt Ab 11/10/18 11/10/18 11/10/18 05:16 11:47 17:32 WBC RBC Hgb Hct MCV MCHC RDW Plt Count Lymph % (Auto) [place] % (Auto) Lymph # [place] # Seg Neutrophils % Seg Neuts % (Manual) Lymphocytes % (Manual) Monocytes % (Manual) Nucleated RBC % Seg Neutrophils # Seg Neutrophils # Man Lymphocytes # (Manual) Monocytes # (Manual) POC ABG pH POC ABG pCO2 POC ABG pO2 VBG pH Sodium Potassium Chloride Carbon Dioxide BUN Creatinine Glucose POC Glucose 242 H 261 H 194 H Hemoglobin A1c Lactic Acid Calcium Phosphorus Magnesium Direct Bilirubin AST ALT C-Reactive Protein Total Protein Albumin Urine WBC (Auto) Salicylates Acetaminophen Heparin-induced Plt Ab 11/10/18 11/11/18 11/11/18 23:39 00:26 04:24 WBC RBC 2.98 L Hgb 9.1 L Hct 27.4 L MCV MCHC RDW Plt Count 114 L Lymph % (Auto) [place] % (Auto) Lymph # [place] # Seg Neutrophils % Seg Neuts % (Manual) Lymphocytes % (Manual) Monocytes % (Manual) 10.0 H Nucleated RBC % Seg Neutrophils # Seg Neutrophils # Man Lymphocytes # (Manual) Monocytes # (Manual) 1.0 H POC ABG pH POC ABG pCO2 POC ABG pO2 VBG pH Sodium Potassium Chloride Carbon Dioxide BUN Creatinine Glucose POC Glucose 60 L 124 H Hemoglobin A1c Lactic Acid Calcium Phosphorus Magnesium Direct Bilirubin AST ALT C-Reactive Protein Total Protein Albumin Urine WBC (Auto) Salicylates Acetaminophen Heparin-induced Plt Ab 11/11/18 11/11/18 11/11/18 04:24 05:27 05:31 WBC RBC Hgb Hct MCV MCHC RDW Plt Count Lymph % (Auto) [place] % (Auto) Lymph # [place] # Seg Neutrophils % Seg Neuts % (Manual) Lymphocytes % (Manual) Monocytes % (Manual) Nucleated RBC % Seg Neutrophils # Seg Neutrophils # Man Lymphocytes # (Manual) Monocytes # (Manual) POC ABG pH POC ABG pCO2 48.8 H POC ABG pO2 109 H VBG pH Sodium Potassium Chloride Carbon Dioxide BUN 23 H Creatinine 5.5 H Glucose 147 H POC Glucose 172 H Hemoglobin A1c Lactic Acid Calcium 7.9 L Phosphorus Magnesium Direct Bilirubin AST 152 H ALT 247 H C-Reactive Protein Total Protein Albumin 2.3 L Urine WBC (Auto) Salicylates Acetaminophen Heparin-induced Plt Ab 11/11/18 11/11/18 11/11/18 12:11 17:12 23:41 WBC RBC Hgb Hct MCV MCHC RDW Plt Count Lymph % (Auto) [place] % (Auto) Lymph # [place] # Seg Neutrophils % Seg Neuts % (Manual) Lymphocytes % (Manual) Monocytes % (Manual) Nucleated RBC % Seg Neutrophils # Seg Neutrophils # Man Lymphocytes # (Manual) Monocytes # (Manual) POC ABG pH POC ABG pCO2 POC ABG pO2 VBG pH Sodium Potassium Chloride Carbon Dioxide BUN Creatinine Glucose POC Glucose 343 H 188 H 145 H Hemoglobin A1c Lactic Acid Calcium Phosphorus Magnesium Direct Bilirubin AST ALT C-Reactive Protein Total Protein Albumin Urine WBC (Auto) Salicylates Acetaminophen Heparin-induced Plt Ab 11/12/18 11/12/18 11/12/18 00:11 04:44 04:44 WBC RBC 2.91 L Hgb 9.0 L Hct 26.9 L MCV MCHC RDW Plt Count Lymph % (Auto) 12.7 L [place] % (Auto) 14.9 H Lymph # 0.8 L [place] # 1.0 H Seg Neutrophils % 71.2 H Seg Neuts % (Manual) Lymphocytes % (Manual) Monocytes % (Manual) Nucleated RBC % Seg Neutrophils # Seg Neutrophils # Man Lymphocytes # (Manual) Monocytes # (Manual) POC ABG pH POC ABG pCO2 POC ABG pO2 VBG pH Sodium Potassium Chloride Carbon Dioxide BUN 22 H Creatinine 5.0 H Glucose 288 H POC Glucose 151 H Hemoglobin A1c Lactic Acid Calcium Phosphorus Magnesium Direct Bilirubin AST 88 H ALT 187 H C-Reactive Protein Total Protein Albumin 2.9 L Urine WBC (Auto) Salicylates Acetaminophen Heparin-induced Plt Ab 11/12/18 11/12/18 11/12/18 11:48 12:28 17:13 WBC RBC Hgb Hct MCV MCHC RDW Plt Count Lymph % (Auto) [place] % (Auto) Lymph # [place] # Seg Neutrophils % Seg Neuts % (Manual) Lymphocytes % (Manual) Monocytes % (Manual) Nucleated RBC % Seg Neutrophils # Seg Neutrophils # Man Lymphocytes # (Manual) Monocytes # (Manual) POC ABG pH POC ABG pCO2 POC ABG pO2 VBG pH Sodium Potassium Chloride Carbon Dioxide BUN Creatinine Glucose POC Glucose 414 H 437 H 251 H Hemoglobin A1c Lactic Acid Calcium Phosphorus Magnesium Direct Bilirubin AST ALT C-Reactive Protein Total Protein Albumin Urine WBC (Auto) Salicylates Acetaminophen Heparin-induced Plt Ab 11/13/18 11/13/18 11/13/18 00:43 04:14 04:14 WBC RBC 2.62 L Hgb 8.0 L Hct 24.0 L MCV MCHC RDW Plt Count Lymph % (Auto) [place] % (Auto) 15.8 H Lymph # [place] # 0.9 H Seg Neutrophils % Seg Neuts % (Manual) Lymphocytes % (Manual) Monocytes % (Manual) Nucleated RBC % Seg Neutrophils # Seg Neutrophils # Man Lymphocytes # (Manual) Monocytes # (Manual) POC ABG pH POC ABG pCO2 POC ABG pO2 VBG pH Sodium Potassium Chloride Carbon Dioxide BUN 32 H Creatinine 6.9 H Glucose 190 H POC Glucose 149 H Hemoglobin A1c Lactic Acid Calcium Phosphorus Magnesium Direct Bilirubin AST ALT C-Reactive Protein Total Protein Albumin Urine WBC (Auto) Salicylates Acetaminophen Heparin-induced Plt Ab 11/13/18 11/13/18 11/13/18 05:53 10:40 12:05 WBC RBC Hgb Hct MCV MCHC RDW Plt Count Lymph % (Auto) [place] % (Auto) Lymph # [place] # Seg Neutrophils % Seg Neuts % (Manual) Lymphocytes % (Manual) Monocytes % (Manual) Nucleated RBC % Seg Neutrophils # Seg Neutrophils # Man Lymphocytes # (Manual) Monocytes # (Manual) POC ABG pH POC ABG pCO2 POC ABG pO2 VBG pH Sodium Potassium Chloride Carbon Dioxide BUN Creatinine Glucose POC Glucose 270 H 405 H 361 H Hemoglobin A1c Lactic Acid Calcium Phosphorus Magnesium Direct Bilirubin AST ALT C-Reactive Protein Total Protein Albumin Urine WBC (Auto) Salicylates Acetaminophen Heparin-induced Plt Ab 11/13/18 11/13/18 11/14/18 18:48 23:55 04:57 WBC RBC 2.75 L Hgb 8.3 L Hct 25.2 L MCV MCHC RDW Plt Count Lymph % (Auto) [place] % (Auto) 15.8 H Lymph # 0.9 L [place] # 0.9 H Seg Neutrophils % Seg Neuts % (Manual) Lymphocytes % (Manual) Monocytes % (Manual) Nucleated RBC % Seg Neutrophils # Seg Neutrophils # Man Lymphocytes # (Manual) Monocytes # (Manual) POC ABG pH POC ABG pCO2 POC ABG pO2 VBG pH Sodium Potassium Chloride Carbon Dioxide BUN Creatinine Glucose POC Glucose 202 H 254 H Hemoglobin A1c Lactic Acid Calcium Phosphorus Magnesium Direct Bilirubin AST ALT C-Reactive Protein Total Protein Albumin Urine WBC (Auto) Salicylates Acetaminophen Heparin-induced Plt Ab 11/14/18 11/14/18 11/14/18 04:57 05:33 11:37 WBC RBC Hgb Hct MCV MCHC RDW Plt Count Lymph % (Auto) [place] % (Auto) Lymph # [place] # Seg Neutrophils % Seg Neuts % (Manual) Lymphocytes % (Manual) Monocytes % (Manual) Nucleated RBC % Seg Neutrophils # Seg Neutrophils # Man Lymphocytes # (Manual) Monocytes # (Manual) POC ABG pH POC ABG pCO2 POC ABG pO2 VBG pH Sodium 136 L Potassium Chloride 96.7 L Carbon Dioxide BUN 25 H Creatinine 5.3 H Glucose 235 H POC Glucose 242 H 272 H Hemoglobin A1c Lactic Acid Calcium Phosphorus Magnesium Direct Bilirubin AST ALT C-Reactive Protein Total Protein Albumin Urine WBC (Auto) Salicylates Acetaminophen Heparin-induced Plt Ab 11/14/18 11/14/18 11/15/18 18:08 23:21 04:50 WBC RBC 2.76 L Hgb 8.5 L Hct 25.4 L MCV MCHC RDW Plt Count Lymph % (Auto) [place] % (Auto) 14.5 H Lymph # [place] # 1.1 H Seg Neutrophils % Seg Neuts % (Manual) Lymphocytes % (Manual) Monocytes % (Manual) Nucleated RBC % Seg Neutrophils # Seg Neutrophils # Man Lymphocytes # (Manual) Monocytes # (Manual) POC ABG pH POC ABG pCO2 POC ABG pO2 VBG pH Sodium Potassium Chloride Carbon Dioxide BUN Creatinine Glucose POC Glucose 166 H 185 H Hemoglobin A1c Lactic Acid Calcium Phosphorus Magnesium Direct Bilirubin AST ALT C-Reactive Protein Total Protein Albumin Urine WBC (Auto) Salicylates Acetaminophen Heparin-induced Plt Ab 11/15/18 11/15/18 11/15/18 04:50 04:50 06:01 WBC RBC Hgb Hct MCV MCHC RDW Plt Count Lymph % (Auto) [place] % (Auto) Lymph # [place] # Seg Neutrophils % Seg Neuts % (Manual) Lymphocytes % (Manual) Monocytes % (Manual) Nucleated RBC % Seg Neutrophils # Seg Neutrophils # Man Lymphocytes # (Manual) Monocytes # (Manual) POC ABG pH POC ABG pCO2 POC ABG pO2 VBG pH Sodium Potassium Chloride 95.2 L Carbon Dioxide BUN 21 H Creatinine 4.8 H Glucose 126 H POC Glucose 150 H Hemoglobin A1c 10.1 H Lactic Acid Calcium Phosphorus Magnesium Direct Bilirubin AST ALT 69 H C-Reactive Protein Total Protein Albumin 2.7 L Urine WBC (Auto) Salicylates Acetaminophen Heparin-induced Plt Ab 11/15/18 11/15/18 11/16/18 13:06 18:08 00:39 WBC RBC Hgb Hct MCV MCHC RDW Plt Count Lymph % (Auto) [place] % (Auto) Lymph # [place] # Seg Neutrophils % Seg Neuts % (Manual) Lymphocytes % (Manual) Monocytes % (Manual) Nucleated RBC % Seg Neutrophils # Seg Neutrophils # Man Lymphocytes # (Manual) Monocytes # (Manual) POC ABG pH POC ABG pCO2 POC ABG pO2 VBG pH Sodium Potassium Chloride Carbon Dioxide BUN Creatinine Glucose POC Glucose 191 H 114 H 147 H Hemoglobin A1c Lactic Acid Calcium Phosphorus Magnesium Direct Bilirubin AST ALT C-Reactive Protein Total Protein Albumin Urine WBC (Auto) Salicylates Acetaminophen Heparin-induced Plt Ab 11/16/18 11/16/18 11/16/18 04:49 04:49 06:09 WBC RBC 2.60 L Hgb 8.0 L Hct 23.4 L MCV MCHC RDW Plt Count Lymph % (Auto) [place] % (Auto) 14.1 H Lymph # [place] # 1.2 H Seg Neutrophils % Seg Neuts % (Manual) Lymphocytes % (Manual) Monocytes % (Manual) Nucleated RBC % Seg Neutrophils # Seg Neutrophils # Man Lymphocytes # (Manual) Monocytes # (Manual) POC ABG pH POC ABG pCO2 POC ABG pO2 VBG pH Sodium 136 L Potassium Chloride 94.1 L Carbon Dioxide BUN 39 H Creatinine 7.4 H D Glucose 243 H POC Glucose 308 H Hemoglobin A1c Lactic Acid Calcium 8.3 L Phosphorus Magnesium Direct Bilirubin AST ALT C-Reactive Protein Total Protein Albumin 2.2 L Urine WBC (Auto) Salicylates Acetaminophen Heparin-induced Plt Ab 11/16/18 11/16/18 11/16/18 08:52 11:53 17:11 WBC RBC Hgb Hct MCV MCHC RDW Plt Count Lymph % (Auto) [place] % (Auto) Lymph # [place] # Seg Neutrophils % Seg Neuts % (Manual) Lymphocytes % (Manual) Monocytes % (Manual) Nucleated RBC % Seg Neutrophils # Seg Neutrophils # Man Lymphocytes # (Manual) Monocytes # (Manual) POC ABG pH POC ABG pCO2 POC ABG pO2 VBG pH Sodium Potassium Chloride Carbon Dioxide BUN Creatinine Glucose POC Glucose 278 H 178 H 173 H Hemoglobin A1c Lactic Acid Calcium Phosphorus Magnesium Direct Bilirubin AST ALT C-Reactive Protein Total Protein Albumin Urine WBC (Auto) Salicylates Acetaminophen Heparin-induced Plt Ab 11/16/18 11/17/18 11/17/18 21:27 00:08 04:45 WBC RBC 2.58 L Hgb 7.9 L Hct 23.5 L MCV MCHC RDW Plt Count Lymph % (Auto) [place] % (Auto) 10.3 H Lymph # [place] # 1.1 H Seg Neutrophils % 74.8 H Seg Neuts % (Manual) Lymphocytes % (Manual) Monocytes % (Manual) Nucleated RBC % Seg Neutrophils # Seg Neutrophils # Man Lymphocytes # (Manual) Monocytes # (Manual) POC ABG pH POC ABG pCO2 POC ABG pO2 VBG pH Sodium Potassium Chloride Carbon Dioxide BUN Creatinine Glucose POC Glucose 206 H 151 H Hemoglobin A1c Lactic Acid Calcium Phosphorus Magnesium Direct Bilirubin AST ALT C-Reactive Protein Total Protein Albumin Urine WBC (Auto) Salicylates Acetaminophen Heparin-induced Plt Ab 11/17/18 11/17/18 11/17/18 04:45 05:12 05:31 WBC RBC Hgb Hct MCV MCHC RDW Plt Count Lymph % (Auto) [place] % (Auto) Lymph # [place] # Seg Neutrophils % Seg Neuts % (Manual) Lymphocytes % (Manual) Monocytes % (Manual) Nucleated RBC % Seg Neutrophils # Seg Neutrophils # Man Lymphocytes # (Manual) Monocytes # (Manual) POC ABG pH 7.481 H POC ABG pCO2 POC ABG pO2 VBG pH Sodium 136 L Potassium Chloride 94.4 L Carbon Dioxide BUN 38 H Creatinine 6.8 H Glucose POC Glucose 111 H Hemoglobin A1c Lactic Acid Calcium Phosphorus Magnesium 2.40 H Direct Bilirubin AST ALT C-Reactive Protein Total Protein Albumin Urine WBC (Auto) Salicylates Acetaminophen Heparin-induced Plt Ab 11/17/18 11/17/18 11/18/18 12:10 23:23 04:24 WBC RBC 2.66 L Hgb 8.2 L Hct 24.0 L MCV MCHC RDW Plt Count 448 H Lymph % (Auto) [place] % (Auto) 12.7 H Lymph # [place] # 1.4 H Seg Neutrophils % 71.9 H Seg Neuts % (Manual) Lymphocytes % (Manual) Monocytes % (Manual) Nucleated RBC % Seg Neutrophils # Seg Neutrophils # Man Lymphocytes # (Manual) Monocytes # (Manual) POC ABG pH POC ABG pCO2 POC ABG pO2 VBG pH Sodium Potassium Chloride Carbon Dioxide BUN Creatinine Glucose POC Glucose 174 H 243 H Hemoglobin A1c Lactic Acid Calcium Phosphorus Magnesium Direct Bilirubin AST ALT C-Reactive Protein Total Protein Albumin Urine WBC (Auto) Salicylates Acetaminophen Heparin-induced Plt Ab 11/18/18 11/18/18 11/18/18 04:24 05:26 11:48 WBC RBC Hgb Hct MCV MCHC RDW Plt Count Lymph % (Auto) [place] % (Auto) Lymph # [place] # Seg Neutrophils % Seg Neuts % (Manual) Lymphocytes % (Manual) Monocytes % (Manual) Nucleated RBC % Seg Neutrophils # Seg Neutrophils # Man Lymphocytes # (Manual) Monocytes # (Manual) POC ABG pH POC ABG pCO2 POC ABG pO2 VBG pH Sodium 136 L Potassium Chloride 93.1 L Carbon Dioxide BUN 30 H Creatinine 5.9 H Glucose 211 H POC Glucose 205 H 162 H Hemoglobin A1c Lactic Acid Calcium Phosphorus Magnesium Direct Bilirubin AST ALT C-Reactive Protein Total Protein Albumin Urine WBC (Auto) Salicylates Acetaminophen Heparin-induced Plt Ab 11/18/18 11/18/18 11/18/18 12:01 19:37 23:21 WBC RBC Hgb Hct MCV MCHC RDW Plt Count Lymph % (Auto) [place] % (Auto) Lymph # [place] # Seg Neutrophils % Seg Neuts % (Manual) Lymphocytes % (Manual) Monocytes % (Manual) Nucleated RBC % Seg Neutrophils # Seg Neutrophils # Man Lymphocytes # (Manual) Monocytes # (Manual) POC ABG pH POC ABG pCO2 POC ABG pO2 VBG pH Sodium Potassium Chloride Carbon Dioxide BUN Creatinine Glucose POC Glucose 207 H 245 H Hemoglobin A1c Lactic Acid Calcium Phosphorus Magnesium Direct Bilirubin AST ALT C-Reactive Protein Total Protein Albumin Urine WBC (Auto) > 182.0 H Salicylates Acetaminophen Heparin-induced Plt Ab 11/19/18 11/19/18 11/19/18 04:24 05:21 12:01 WBC RBC Hgb Hct MCV MCHC RDW Plt Count Lymph % (Auto) [place] % (Auto) Lymph # [place] # Seg Neutrophils % Seg Neuts % (Manual) Lymphocytes % (Manual) Monocytes % (Manual) Nucleated RBC % Seg Neutrophils # Seg Neutrophils # Man Lymphocytes # (Manual) Monocytes # (Manual) POC ABG pH POC ABG pCO2 POC ABG pO2 VBG pH Sodium 134 L Potassium 5.4 H Chloride 89.8 L Carbon Dioxide BUN 54 H Creatinine 8.0 H Glucose 240 H POC Glucose 234 H 179 H Hemoglobin A1c Lactic Acid Calcium Phosphorus Magnesium Direct Bilirubin AST ALT C-Reactive Protein Total Protein Albumin Urine WBC (Auto) Salicylates Acetaminophen Heparin-induced Plt Ab 11/19/18 11/19/18 11/19/18 12:41 17:32 21:53 WBC 13.7 H RBC 2.73 L Hgb 8.3 L Hct 24.9 L MCV MCHC RDW Plt Count 479 H Lymph % (Auto) [place] % (Auto) Lymph # [place] # Seg Neutrophils % Seg Neuts % (Manual) Lymphocytes % (Manual) Monocytes % (Manual) Nucleated RBC % Seg Neutrophils # Seg Neutrophils # Man Lymphocytes # (Manual) Monocytes # (Manual) POC ABG pH POC ABG pCO2 POC ABG pO2 VBG pH Sodium Potassium Chloride Carbon Dioxide BUN Creatinine Glucose POC Glucose 317 H 421 H Hemoglobin A1c Lactic Acid Calcium Phosphorus Magnesium Direct Bilirubin AST ALT C-Reactive Protein Total Protein Albumin Urine WBC (Auto) Salicylates Acetaminophen Heparin-induced Plt Ab 11/19/18 11/20/18 11/20/18 23:16 06:03 10:25 WBC 11.9 H RBC 2.58 L Hgb 7.8 L Hct 23.1 L MCV MCHC RDW Plt Count 444 H Lymph % (Auto) [place] % (Auto) Lymph # [place] # Seg Neutrophils % Seg Neuts % (Manual) Lymphocytes % (Manual) Monocytes % (Manual) Nucleated RBC % Seg Neutrophils # Seg Neutrophils # Man Lymphocytes # (Manual) Monocytes # (Manual) POC ABG pH POC ABG pCO2 POC ABG pO2 VBG pH Sodium Potassium Chloride Carbon Dioxide BUN Creatinine Glucose POC Glucose 396 H 294 H Hemoglobin A1c Lactic Acid Calcium Phosphorus Magnesium Direct Bilirubin AST ALT C-Reactive Protein Total Protein Albumin Urine WBC (Auto) Salicylates Acetaminophen Heparin-induced Plt Ab 11/20/18 11/20/18 11/20/18 10:25 12:39 16:34 WBC RBC Hgb Hct MCV MCHC RDW Plt Count Lymph % (Auto) [place] % (Auto) Lymph # [place] # Seg Neutrophils % Seg Neuts % (Manual) Lymphocytes % (Manual) Monocytes % (Manual) Nucleated RBC % Seg Neutrophils # Seg Neutrophils # Man Lymphocytes # (Manual) Monocytes # (Manual) POC ABG pH POC ABG pCO2 POC ABG pO2 VBG pH Sodium 135 L Potassium 6.1 H* 5.1 H Chloride 89.8 L Carbon Dioxide BUN 55 H Creatinine 8.2 H Glucose 302 H POC Glucose 245 H Hemoglobin A1c Lactic Acid Calcium Phosphorus Magnesium Direct Bilirubin AST ALT C-Reactive Protein Total Protein Albumin Urine WBC (Auto) Salicylates Acetaminophen Heparin-induced Plt Ab 11/20/18 11/20/18 11/20/18 17:45 18:16 23:12 WBC RBC Hgb Hct MCV MCHC RDW Plt Count Lymph % (Auto) [place] % (Auto) Lymph # [place] # Seg Neutrophils % Seg Neuts % (Manual) Lymphocytes % (Manual) Monocytes % (Manual) Nucleated RBC % Seg Neutrophils # Seg Neutrophils # Man Lymphocytes # (Manual) Monocytes # (Manual) POC ABG pH POC ABG pCO2 POC ABG pO2 VBG pH Sodium Potassium 5.2 H Chloride 90.2 L Carbon Dioxide BUN 60 H Creatinine 8.9 H Glucose 217 H POC Glucose 211 H 320 H Hemoglobin A1c Lactic Acid Calcium Phosphorus Magnesium Direct Bilirubin AST ALT C-Reactive Protein Total Protein Albumin Urine WBC (Auto) Salicylates Acetaminophen Heparin-induced Plt Ab 11/21/18 11/21/1811/21/19 04:44 04:44 05:32 WBC RBC 2.51 L Hgb 7.8 L Hct 22.3 L MCV MCHC 35 H RDW Plt Count Lymph % (Auto) [place] % (Auto) 9.5 H Lymph # [place] # 1.0 H Seg Neutrophils % 72.3 H Seg Neuts % (Manual) Lymphocytes % (Manual) Monocytes % (Manual) Nucleated RBC % Seg Neutrophils # Seg Neutrophils # Man Lymphocytes # (Manual) Monocytes # (Manual) POC ABG pH POC ABG pCO2 POC ABG pO2 VBG pH Sodium Potassium Chloride 92.7 L Carbon Dioxide BUN 36 H Creatinine 5.9 H Glucose 209 H POC Glucose 203 H Hemoglobin A1c Lactic Acid Calcium Phosphorus 5.50 H Magnesium Direct Bilirubin AST ALT C-Reactive Protein Total Protein Albumin Urine WBC (Auto) Salicylates Acetaminophen Heparin-induced Plt Ab 11/21/18 11/21/18 11/21/18 10:45 12:18 17:49 WBC RBC Hgb Hct MCV MCHC RDW Plt Count Lymph % (Auto) [place] % (Auto) Lymph # [place] # Seg Neutrophils % Seg Neuts % (Manual) Lymphocytes % (Manual) Monocytes % (Manual) Nucleated RBC % Seg Neutrophils # Seg Neutrophils # Man Lymphocytes # (Manual) Monocytes # (Manual) POC ABG pH 7.473 H POC ABG pCO2 POC ABG pO2 121 H VBG pH Sodium Potassium Chloride Carbon Dioxide BUN Creatinine Glucose POC Glucose 149 H 233 H Hemoglobin A1c Lactic Acid Calcium Phosphorus Magnesium Direct Bilirubin AST ALT C-Reactive Protein Total Protein Albumin Urine WBC (Auto) Salicylates Acetaminophen Heparin-induced Plt Ab 11/21/18 11/22/18 11/22/18 23:39 04:52 04:52 WBC 15.1 H RBC 2.59 L Hgb 7.6 L Hct 23.5 L MCV MCHC RDW Plt Count 472 H Lymph % (Auto) 9.9 L [place] % (Auto) 9.7 H Lymph # [place] # 1.5 H Seg Neutrophils % 79.2 H Seg Neuts % (Manual) Lymphocytes % (Manual) Monocytes % (Manual) Nucleated RBC % Seg Neutrophils # 11.9 H Seg Neutrophils # Man Lymphocytes # (Manual) Monocytes # (Manual) POC ABG pH POC ABG pCO2 POC ABG pO2 VBG pH Sodium Potassium Chloride 94.9 L Carbon Dioxide BUN 34 H Creatinine 5.6 H Glucose 182 H POC Glucose 235 H Hemoglobin A1c Lactic Acid Calcium Phosphorus Magnesium Direct Bilirubin AST ALT C-Reactive Protein Total Protein Albumin Urine WBC (Auto) Salicylates Acetaminophen Heparin-induced Plt Ab 11/22/18 11/22/18 11/22/18 05:49 11:39 16:20 WBC RBC Hgb Hct MCV MCHC RDW Plt Count Lymph % (Auto) [place] % (Auto) Lymph # [place] # Seg Neutrophils % Seg Neuts % (Manual) Lymphocytes % (Manual) Monocytes % (Manual) Nucleated RBC % Seg Neutrophils # Seg Neutrophils # Man Lymphocytes # (Manual) Monocytes # (Manual) POC ABG pH POC ABG pCO2 POC ABG pO2 VBG pH Sodium Potassium Chloride Carbon Dioxide BUN Creatinine Glucose POC Glucose 264 H 277 H 303 H Hemoglobin A1c Lactic Acid Calcium Phosphorus Magnesium Direct Bilirubin AST ALT C-Reactive Protein Total Protein Albumin Urine WBC (Auto) Salicylates Acetaminophen Heparin-induced Plt Ab 11/22/18 11/23/18 11/23/18 23:17 04:39 04:39 WBC 12.6 H RBC 2.36 L Hgb 7.1 L Hct 21.2 L MCV MCHC RDW Plt Count Lymph % (Auto) 11.8 L [place] % (Auto) 9.8 H Lymph # [place] # 1.2 H Seg Neutrophils % 77.8 H Seg Neuts % (Manual) Lymphocytes % (Manual) Monocytes % (Manual) Nucleated RBC % Seg Neutrophils # 9.8 H Seg Neutrophils # Man Lymphocytes # (Manual) Monocytes # (Manual) POC ABG pH POC ABG pCO2 POC ABG pO2 VBG pH Sodium 135 L Potassium Chloride 90.4 L Carbon Dioxide BUN 60 H Creatinine 8.5 H D Glucose 345 H POC Glucose 232 H Hemoglobin A1c Lactic Acid Calcium Phosphorus 5.20 H D Magnesium Direct Bilirubin AST ALT C-Reactive Protein Total Protein Albumin Urine WBC (Auto) Salicylates Acetaminophen Heparin-induced Plt Ab 11/23/18 11/23/18 11/23/18 05:49 05:53 12:05 WBC RBC Hgb Hct MCV MCHC RDW Plt Count Lymph % (Auto) [place] % (Auto) Lymph # [place] # Seg Neutrophils % Seg Neuts % (Manual) Lymphocytes % (Manual) Monocytes % (Manual) Nucleated RBC % Seg Neutrophils # Seg Neutrophils # Man Lymphocytes # (Manual) Monocytes # (Manual) POC ABG pH POC ABG pCO2 POC ABG pO2 VBG pH Sodium Potassium Chloride Carbon Dioxide BUN Creatinine Glucose POC Glucose 410 H 366 H 335 H Hemoglobin A1c Lactic Acid Calcium Phosphorus Magnesium Direct Bilirubin AST ALT C-Reactive Protein Total Protein Albumin Urine WBC (Auto) Salicylates Acetaminophen Heparin-induced Plt Ab 11/23/18 11/23/18 11/23/18 18:00 18:16 21:28 WBC RBC Hgb Hct MCV MCHC RDW Plt Count Lymph % (Auto) [place] % (Auto) Lymph # [place] # Seg Neutrophils % Seg Neuts % (Manual) Lymphocytes % (Manual) Monocytes % (Manual) Nucleated RBC % Seg Neutrophils # Seg Neutrophils # Man Lymphocytes # (Manual) Monocytes # (Manual) POC ABG pH POC ABG pCO2 POC ABG pO2 VBG pH Sodium Potassium Chloride Carbon Dioxide BUN Creatinine Glucose POC Glucose 401 H 326 H Hemoglobin A1c Lactic Acid Calcium Phosphorus Magnesium Direct Bilirubin AST ALT C-Reactive Protein Total Protein Albumin Urine WBC (Auto) > 182.0 H Salicylates Acetaminophen Heparin-induced Plt Ab 11/23/18 11/24/18 11/24/18 23:02 05:18 05:18 WBC RBC 2.44 L Hgb 7.4 L Hct 21.9 L MCV MCHC RDW Plt Count 447 H Lymph % (Auto) [place] % (Auto) 10.1 H Lymph # [place] # 1.1 H Seg Neutrophils % 75.4 H Seg Neuts % (Manual) Lymphocytes % (Manual) Monocytes % (Manual) Nucleated RBC % Seg Neutrophils # 8.0 H Seg Neutrophils # Man Lymphocytes # (Manual) Monocytes # (Manual) POC ABG pH POC ABG pCO2 POC ABG pO2 VBG pH Sodium Potassium Chloride 91.7 L Carbon Dioxide BUN 88 H Creatinine 11.3 H Glucose 320 H POC Glucose 305 H Hemoglobin A1c Lactic Acid Calcium Phosphorus 6.60 H D Magnesium Direct Bilirubin AST ALT C-Reactive Protein Total Protein Albumin Urine WBC (Auto) Salicylates Acetaminophen Heparin-induced Plt Ab 11/24/18 11/24/18 11/24/18 05:32 11:07 12:13 WBC RBC Hgb Hct MCV MCHC RDW Plt Count Lymph % (Auto) [place] % (Auto) Lymph # [place] # Seg Neutrophils % Seg Neuts % (Manual) Lymphocytes % (Manual) Monocytes % (Manual) Nucleated RBC % Seg Neutrophils # Seg Neutrophils # Man Lymphocytes # (Manual) Monocytes # (Manual) POC ABG pH POC ABG pCO2 POC ABG pO2 VBG pH Sodium Potassium Chloride Carbon Dioxide BUN Creatinine Glucose POC Glucose 356 H 352 H 355 H Hemoglobin A1c Lactic Acid Calcium Phosphorus Magnesium Direct Bilirubin AST ALT C-Reactive Protein Total Protein Albumin Urine WBC (Auto) Salicylates Acetaminophen Heparin-induced Plt Ab 11/24/18 13:27 WBC RBC Hgb Hct MCV MCHC RDW Plt Count Lymph % (Auto) [place] % (Auto) Lymph # [place] # Seg Neutrophils % Seg Neuts % (Manual) Lymphocytes % (Manual) Monocytes % (Manual) Nucleated RBC % Seg Neutrophils # Seg Neutrophils # Man Lymphocytes # (Manual) Monocytes # (Manual) POC ABG pH POC ABG pCO2 POC ABG pO2 VBG pH Sodium Potassium Chloride Carbon Dioxide BUN Creatinine Glucose POC Glucose 267 H Hemoglobin A1c Lactic Acid Calcium Phosphorus Magnesium Direct Bilirubin AST ALT C-Reactive Protein Total Protein Albumin Urine WBC (Auto) Salicylates Acetaminophen Heparin-induced Plt Ab Chest x-ray: pending Allied health notes reviewed: nursing
[2018-11-24] MEDS: PROCRIT IV PRN (16:37)
--- NOTE | 2018-11-24 18:15 | Progress Note ---
Assessment and Plan Anoxic Encephalopathy Seizure Disorder Recommend: Changes noted on CT scan are more likely related to pt's history of DM, HTN and ESRD but can not be sure. MRI would be helpful in confirmation as well as looking for signs of anoxia which might be helpful with prognosis. EEG noted, frequency of background rhythm not specifically mentioned Continue medical care as you are doing, will follow up on MRI result and make additional recommendations if needed Called pt's [facility] [phone]- Subjective Date of service: 11/24/18 Principal diagnosis: Ac hypoxemic resp failure; DKA; Severe sepsis with shock; ESRD on dialysis Interval history: Pt has been followed by Dr. Joseph previously. EEG on 11/[address] head more recent reviewed. No family at bedside, pt is barely responding, will move eyes a little to voice but is not opening his eyes nor tracking. Objective - Vital Sign Vital Signs - 12hr 11/24/18 11/24/18 11/24/18 06:30 06:36 07:00 Temperature Pulse Rate 97 H 105 H 109 H Pulse Rate [ From Monitor] Respiratory 20 13 Rate Blood Pressure 126/72 126/72 165/73 O2 Sat by Pulse 99 100 Oximetry O2 Sat by Pulse Oximetry [ Anterior Bilateral Throughout] O2 Sat by Pulse Oximetry [ Assessment] 11/24/18 11/24/18 11/24/18 07:30 08:00 08:30 Temperature 100.4 F H Pulse Rate 105 H 104 H 110 H Pulse Rate [ 105 H From Monitor] Respiratory 16 21 10 L Rate Blood Pressure 157/78 101/68 158/83 O2 Sat by Pulse 100 100 100 Oximetry O2 Sat by Pulse Oximetry [ Anterior Bilateral Throughout] O2 Sat by Pulse Oximetry [ Assessment] 11/24/18 11/24/18 11/24/18 08:48 09:00 09:30 Temperature Pulse Rate 100 H 108 H 111 H Pulse Rate [ From Monitor] Respiratory 28 H 24 Rate Blood Pressure 158/83 184/82 175/72 O2 Sat by Pulse 100 100 100 Oximetry O2 Sat by Pulse Oximetry [ Anterior Bilateral Throughout] O2 Sat by Pulse 100 Oximetry [ Assessment] 11/24/18 11/24/18 11/24/18 10:00 10:40 10:41 Temperature Pulse Rate 108 H 103 H 106 H Pulse Rate [ From Monitor] Respiratory 20 18 Rate Blood Pressure 151/77 O2 Sat by Pulse 100 100 100 Oximetry O2 Sat by Pulse Oximetry [ Anterior Bilateral Throughout] O2 Sat by Pulse Oximetry [ Assessment] 11/24/18 11/24/18 11/24/18 11:00 11:30 12:00 Temperature 99.0 F Pulse Rate 108 H 114 H 108 H Pulse Rate [ 97 H From Monitor] Respiratory 24 27 H Rate Blood Pressure 166/77 169/69 131/65 O2 Sat by Pulse 100 100 100 Oximetry O2 Sat by Pulse Oximetry [ Anterior Bilateral Throughout] O2 Sat by Pulse Oximetry [ Assessment] 11/24/18 11/24/18 11/24/18 12:11 13:40 13:45 Temperature 98.9 F Pulse Rate 97 H 116 H 116 H Pulse Rate [ From Monitor] Respiratory 21 Rate Blood Pressure 121/57 201/88 200/80 O2 Sat by Pulse Oximetry O2 Sat by Pulse 100 Oximetry [ Anterior Bilateral Throughout] O2 Sat by Pulse Oximetry [ Assessment] 11/24/18 11/24/18 11/24/18 14:00 14:15 14:30 Temperature Pulse Rate 115 H 114 H 108 H Pulse Rate [ From Monitor] Respiratory Rate Blood Pressure 177/81 136/76 120/64 O2 Sat by Pulse Oximetry O2 Sat by Pulse Oximetry [ Anterior Bilateral Throughout] O2 Sat by Pulse Oximetry [ Assessment] 11/24/18 11/24/18 11/24/18 14:45 15:00 15:15 Temperature Pulse Rate 106 H 106 H 102 H Pulse Rate [ From Monitor] Respiratory Rate Blood Pressure 122/71 116/56 107/64 O2 Sat by Pulse Oximetry O2 Sat by Pulse Oximetry [ Anterior Bilateral Throughout] O2 Sat by Pulse Oximetry [ Assessment] 11/24/18 11/24/18 11/24/18 15:30 15:45 16:00 Temperature 99.0 F Pulse Rate 96 H 95 H 95 H Pulse Rate [ 98 H From Monitor] Respiratory Rate Blood Pressure 95/45 91/48 101/54 O2 Sat by Pulse 100 Oximetry O2 Sat by Pulse Oximetry [ Anterior Bilateral Throughout] O2 Sat by Pulse Oximetry [ Assessment] 11/24/18 11/24/18 11/24/18 16:15 16:30 16:40 Temperature Pulse Rate 93 H 97 H 96 H Pulse Rate [ From Monitor] Respiratory Rate Blood Pressure 99/54 100/54 108/65 O2 Sat by Pulse Oximetry O2 Sat by Pulse Oximetry [ Anterior Bilateral Throughout] O2 Sat by Pulse Oximetry [ Assessment] 11/24/18 11/24/18 11/24/18 16:50 17:02 17:43 Temperature 98.8 F Pulse Rate 96 H 91 H 97 H Pulse Rate [ From Monitor] Respiratory 21 Rate Blood Pressure 113/67 106/57 124/64 O2 Sat by Pulse 100 Oximetry O2 Sat by Pulse 100 Oximetry [ Anterior Bilateral Throughout] O2 Sat by Pulse 100 Oximetry [ Assessment] - General Apperance Constitutional: comfortable - EENT EENT: PERRL, mucous membranes moist - Respiratory Respiratory: lungs clear - Cardiovascular Cardiovascular: regular rate Extremities: no peripheral edema bilat - Integumentary Integumentary: normal - Neurologic Cranial nerve examination: PERRL, EOMI, intact corneal reflex Detailed motor examination: other (no spontanoud movement, increased tone noted throughout but worse on the left) Reflexes: 0: ankle, bicep, knee, tricep (withdraws with plantar stim on the left) - Laboratory Findings CBC and BMP: 11/24/18 05:18 11/24/18 05:18 Abnormal Lab Findings: Abnormal Labs 11/06/18 11/06/18 11/06/18 08:22 09:02 09:02 WBC 20.1 H RBC 3.40 L Hgb 10.5 L Hct MCV 119 H MCHC 26 L RDW 15.7 H Plt Count Lymph % (Auto) Owen % (Auto) Lymph # Owen # Seg Neutrophils % 80.1 H Seg Neuts % (Manual) 76.0 H Lymphocytes % (Manual) 4.0 L Monocytes % (Manual) Nucleated RBC % 1.0 H Seg Neutrophils # 16.1 H Seg Neutrophils # Man 15.3 H Lymphocytes # (Manual) 0.8 L Monocytes # (Manual) POC ABG pH POC ABG pCO2 POC ABG pO2 VBG pH Sodium 129 L Potassium 7.7 H* Chloride 79.7 L Carbon Dioxide 4 L* BUN 93 H Creatinine 7.4 H Glucose 1469 H* POC Glucose > 500 H Hemoglobin A1c Lactic Acid Calcium Phosphorus Magnesium Direct Bilirubin AST 2679 H ALT 1175 H C-Reactive Protein Total Protein 6.1 L Albumin 2.9 L Urine WBC (Auto) Salicylates Acetaminophen Heparin-induced Plt Ab 11/06/18 11/06/18 11/06/18 09:02 09:02 09:02 WBC RBC Hgb Hct MCV MCHC RDW Plt Count Lymph % (Auto) Owen % (Auto) Lymph # Owen # Seg Neutrophils % Seg Neuts % (Manual) Lymphocytes % (Manual) Monocytes % (Manual) Nucleated RBC % Seg Neutrophils # Seg Neutrophils # Man Lymphocytes # (Manual) Monocytes # (Manual) POC ABG pH POC ABG pCO2 POC ABG pO2 VBG pH Sodium Potassium Chloride Carbon Dioxide BUN Creatinine Glucose POC Glucose Hemoglobin A1c Lactic Acid 9.40 H* Calcium Phosphorus Magnesium Direct Bilirubin AST ALT C-Reactive Protein Total Protein Albumin Urine WBC (Auto) Salicylates < 0.3 L Acetaminophen < 5.0 L Heparin-induced Plt Ab 11/06/18 11/06/18 11/06/18 09:03 10:19 10:19 WBC RBC Hgb Hct MCV MCHC RDW Plt Count Lymph % (Auto) Owen % (Auto) Lymph # Owen # Seg Neutrophils % Seg Neuts % (Manual) Lymphocytes % (Manual) Monocytes % (Manual) Nucleated RBC % Seg Neutrophils # Seg Neutrophils # Man Lymphocytes # (Manual) Monocytes # (Manual) POC ABG pH 6.841 L POC ABG pCO2 POC ABG pO2 VBG pH Sodium 131 L Potassium 8.9 H* Chloride 85.3 L Carbon Dioxide 6 L* BUN 90 H Creatinine 7.1 H Glucose 1353 H* POC Glucose Hemoglobin A1c Lactic Acid Calcium 7.8 L Phosphorus 14.50 H Magnesium 2.70 H Direct Bilirubin AST ALT C-Reactive Protein Total Protein Albumin Urine WBC (Auto) Salicylates Acetaminophen Heparin-induced Plt Ab 11/06/18 11/06/18 11/06/18 12:07 13:22 13:22 WBC RBC Hgb Hct MCV MCHC RDW Plt Count Lymph % (Auto) Owen % (Auto) Lymph # Owen # Seg Neutrophils % Seg Neuts % (Manual) Lymphocytes % (Manual) Monocytes % (Manual) Nucleated RBC % Seg Neutrophils # Seg Neutrophils # Man Lymphocytes # (Manual) Monocytes # (Manual) POC ABG pH POC ABG pCO2 POC ABG pO2 VBG pH 6.982 L* Sodium 135 L Potassium 7.0 H* D Chloride 88.4 L Carbon Dioxide 5 L* BUN 89 H Creatinine 7.2 H Glucose 1326 H* POC Glucose Hemoglobin A1c Lactic Acid 8.50 H* Calcium Phosphorus Magnesium Direct Bilirubin AST ALT C-Reactive Protein Total Protein Albumin Urine WBC (Auto) Salicylates Acetaminophen Heparin-induced Plt Ab 11/06/18 11/06/18 11/06/18 14:15 14:15 15:21 WBC RBC Hgb Hct MCV MCHC RDW Plt Count Lymph % (Auto) Owen % (Auto) Lymph # Owen # Seg Neutrophils % Seg Neuts % (Manual) Lymphocytes % (Manual) Monocytes % (Manual) Nucleated RBC % Seg Neutrophils # Seg Neutrophils # Man Lymphocytes # (Manual) Monocytes # (Manual) POC ABG pH POC ABG pCO2 POC ABG pO2 VBG pH Sodium Potassium 6.6 H* 6.0 H Chloride 95.3 L 93.3 L Carbon Dioxide 4 L* 6 L* BUN 83 H 91 H Creatinine 6.9 H 7.3 H Glucose 1205 H* 1174 H* POC Glucose Hemoglobin A1c Lactic Acid Calcium 8.2 L Phosphorus 13.00 H Magnesium 2.60 H Direct Bilirubin AST ALT C-Reactive Protein Total Protein Albumin Urine WBC (Auto) Salicylates Acetaminophen Heparin-induced Plt Ab 11/06/18 11/06/18 11/06/18 15:21 16:14 16:33 WBC RBC Hgb Hct MCV MCHC RDW Plt Count Lymph % (Auto) Owen % (Auto) Lymph # Owen # Seg Neutrophils % Seg Neuts % (Manual) Lymphocytes % (Manual) Monocytes % (Manual) Nucleated RBC % Seg Neutrophils # Seg Neutrophils # Man Lymphocytes # (Manual) Monocytes # (Manual) POC ABG pH 7.004 L POC ABG pCO2 33.0 L POC ABG pO2 178 H VBG pH Sodium Potassium Chloride Carbon Dioxide BUN Creatinine Glucose POC Glucose > 500 H Hemoglobin A1c Lactic Acid 7.60 H* Calcium Phosphorus Magnesium Direct Bilirubin AST ALT C-Reactive Protein Total Protein Albumin Urine WBC (Auto) Salicylates Acetaminophen Heparin-induced Plt Ab 11/06/18 11/06/18 11/06/18 17:34 19:30 19:30 WBC RBC Hgb Hct MCV MCHC RDW Plt Count Lymph % (Auto) Owen % (Auto) Lymph # Owen # Seg Neutrophils % Seg Neuts % (Manual) Lymphocytes % (Manual) Monocytes % (Manual) Nucleated RBC % Seg Neutrophils # Seg Neutrophils # Man Lymphocytes # (Manual) Monocytes # (Manual) POC ABG pH POC ABG pCO2 POC ABG pO2 VBG pH Sodium Potassium 5.5 H Chloride 97.4 L 97.7 L Carbon Dioxide 10 L 11 L BUN 88 H 87 H Creatinine 7.5 H 7.6 H Glucose 1054 H* 954 H* POC Glucose Hemoglobin A1c Lactic Acid Calcium 7.7 L 7.4 L Phosphorus Magnesium Direct Bilirubin AST ALT C-Reactive Protein 1.90 H Total Protein Albumin Urine WBC (Auto) Salicylates Acetaminophen Heparin-induced Plt Ab 11/06/18 11/06/18 11/06/18 20:31 20:40 20:40 WBC RBC Hgb Hct MCV MCHC RDW Plt Count Lymph % (Auto) Owen % (Auto) Lymph # Owen # Seg Neutrophils % Seg Neuts % (Manual) Lymphocytes % (Manual) Monocytes % (Manual) Nucleated RBC % Seg Neutrophils # Seg Neutrophils # Man Lymphocytes # (Manual) Monocytes # (Manual) POC ABG pH 7.245 L POC ABG pCO2 POC ABG pO2 132 H VBG pH Sodium Potassium Chloride Carbon Dioxide BUN Creatinine Glucose 907 H* POC Glucose Hemoglobin A1c Lactic Acid 4.40 H* Calcium Phosphorus Magnesium Direct Bilirubin AST ALT C-Reactive Protein Total Protein Albumin Urine WBC (Auto) Salicylates Acetaminophen Heparin-induced Plt Ab 11/06/18 11/06/18 11/06/18 22:05 22:40 23:35 WBC RBC Hgb Hct MCV MCHC RDW Plt Count Lymph % (Auto) Owen % (Auto) Lymph # Owen # Seg Neutrophils % Seg Neuts % (Manual) Lymphocytes % (Manual) Monocytes % (Manual) Nucleated RBC % Seg Neutrophils # Seg Neutrophils # Man Lymphocytes # (Manual) Monocytes # (Manual) POC ABG pH POC ABG pCO2 POC ABG pO2 VBG pH Sodium Potassium Chloride Carbon Dioxide 13 L BUN 86 H Creatinine 7.8 H Glucose 822 H* 726 H* POC Glucose Hemoglobin A1c Lactic Acid 3.40 H* Calcium 7.5 L Phosphorus Magnesium Direct Bilirubin AST ALT C-Reactive Protein Total Protein Albumin Urine WBC (Auto) Salicylates Acetaminophen Heparin-induced Plt Ab 11/07/18 11/07/18 11/07/18 01:25 01:26 03:15 WBC RBC Hgb Hct MCV MCHC RDW Plt Count Lymph % (Auto) Owen % (Auto) Lymph # Owen # Seg Neutrophils % Seg Neuts % (Manual) Lymphocytes % (Manual) Monocytes % (Manual) Nucleated RBC % Seg Neutrophils # Seg Neutrophils # Man Lymphocytes # (Manual) Monocytes # (Manual) POC ABG pH POC ABG pCO2 POC ABG pO2 VBG pH Sodium Potassium Chloride Carbon Dioxide BUN Creatinine Glucose 602 H* POC Glucose > 500 H > 500 H Hemoglobin A1c Lactic Acid Calcium Phosphorus Magnesium Direct Bilirubin AST ALT C-Reactive Protein Total Protein Albumin Urine WBC (Auto) Salicylates Acetaminophen Heparin-induced Plt Ab 11/07/18 11/07/18 11/07/18 03:20 04:32 04:47 WBC RBC Hgb Hct MCV MCHC RDW Plt Count Lymph % (Auto) Owen % (Auto) Lymph # Owen # Seg Neutrophils % Seg Neuts % (Manual) Lymphocytes % (Manual) Monocytes % (Manual) Nucleated RBC % Seg Neutrophils # Seg Neutrophils # Man Lymphocytes # (Manual) Monocytes # (Manual) POC ABG pH POC ABG pCO2 30.3 L POC ABG pO2 153 H VBG pH Sodium 149 H Potassium Chloride Carbon Dioxide 16 L BUN 86 H Creatinine 8.3 H Glucose 499.2 H POC Glucose 360 H Hemoglobin A1c Lactic Acid Calcium 7.6 L Phosphorus Magnesium Direct Bilirubin AST ALT C-Reactive Protein Total Protein Albumin Urine WBC (Auto) Salicylates Acetaminophen Heparin-induced Plt Ab 11/07/18 11/07/18 11/07/18 05:26 06:35 06:36 WBC RBC Hgb Hct MCV MCHC RDW Plt Count Lymph % (Auto) Owen % (Auto) Lymph # Owen # Seg Neutrophils % Seg Neuts % (Manual) Lymphocytes % (Manual) Monocytes % (Manual) Nucleated RBC % Seg Neutrophils # Seg Neutrophils # Man Lymphocytes # (Manual) Monocytes # (Manual) POC ABG pH POC ABG pCO2 POC ABG pO2 VBG pH Sodium 153 H Potassium 3.2 L Chloride 109.7 H Carbon Dioxide BUN 84 H Creatinine 8.6 H Glucose 249 H POC Glucose 341 H 274 H Hemoglobin A1c Lactic Acid Calcium 7.6 L Phosphorus Magnesium Direct Bilirubin AST ALT C-Reactive Protein Total Protein Albumin Urine WBC (Auto) Salicylates Acetaminophen Heparin-induced Plt Ab 11/07/18 11/07/18 11/07/18 07:33 09:00 09:52 WBC RBC Hgb Hct MCV MCHC RDW Plt Count Lymph % (Auto) Owen % (Auto) Lymph # Owen # Seg Neutrophils % Seg Neuts % (Manual) Lymphocytes % (Manual) Monocytes % (Manual) Nucleated RBC % Seg Neutrophils # Seg Neutrophils # Man Lymphocytes # (Manual) Monocytes # (Manual) POC ABG pH POC ABG pCO2 POC ABG pO2 VBG pH Sodium Potassium Chloride Carbon Dioxide BUN Creatinine Glucose POC Glucose 243 H 182 H 227 H Hemoglobin A1c Lactic Acid Calcium Phosphorus Magnesium Direct Bilirubin AST ALT C-Reactive Protein Total Protein Albumin Urine WBC (Auto) Salicylates Acetaminophen Heparin-induced Plt Ab 11/07/18 11/07/18 11/07/18 10:50 10:50 10:50 WBC 11.3 H RBC 2.85 L Hgb 8.7 L Hct 25.3 L D MCV MCHC RDW Plt Count Lymph % (Auto) 9.7 L Owen % (Auto) Lymph # 1.1 L Owen # Seg Neutrophils % 83.3 H Seg Neuts % (Manual) Lymphocytes % (Manual) Monocytes % (Manual) Nucleated RBC % Seg Neutrophils # 9.4 H Seg Neutrophils # Man Lymphocytes # (Manual) Monocytes # (Manual) POC ABG pH POC ABG pCO2 POC ABG pO2 VBG pH Sodium 154 H Potassium 3.2 L Chloride 110.2 H Carbon Dioxide BUN 82 H Creatinine 8.3 H Glucose 186 H POC Glucose 200 H Hemoglobin A1c Lactic Acid Calcium 7.3 L Phosphorus Magnesium Direct Bilirubin AST ALT C-Reactive Protein Total Protein Albumin Urine WBC (Auto) Salicylates Acetaminophen Heparin-induced Plt Ab 11/07/18 11/07/18 11/07/18 12:00 12:05 13:13 WBC RBC Hgb Hct MCV MCHC RDW Plt Count Lymph % (Auto) Owen % (Auto) Lymph # Owen # Seg Neutrophils % Seg Neuts % (Manual) Lymphocytes % (Manual) Monocytes % (Manual) Nucleated RBC % Seg Neutrophils # Seg Neutrophils # Man Lymphocytes # (Manual) Monocytes # (Manual) POC ABG pH POC ABG pCO2 POC ABG pO2 VBG pH Sodium Potassium Chloride Carbon Dioxide BUN Creatinine Glucose POC Glucose 179 H 190 H Hemoglobin A1c Lactic Acid 2.50 H* Calcium Phosphorus Magnesium Direct Bilirubin AST ALT C-Reactive Protein Total Protein Albumin Urine WBC (Auto) Salicylates Acetaminophen Heparin-induced Plt Ab 11/07/18 11/07/18 11/07/18 13:20 14:05 15:18 WBC RBC Hgb Hct MCV MCHC RDW Plt Count Lymph % (Auto) Owen % (Auto) Lymph # Owen # Seg Neutrophils % Seg Neuts % (Manual) Lymphocytes % (Manual) Monocytes % (Manual) Nucleated RBC % Seg Neutrophils # Seg Neutrophils # Man Lymphocytes # (Manual) Monocytes # (Manual) POC ABG pH POC ABG pCO2 POC ABG pO2 VBG pH Sodium Potassium 3.1 L Chloride Carbon Dioxide BUN 50 H Creatinine 5.0 H Glucose 176 H POC Glucose 189 H 215 H Hemoglobin A1c Lactic Acid Calcium 7.4 L Phosphorus Magnesium Direct Bilirubin AST ALT C-Reactive Protein Total Protein Albumin Urine WBC (Auto) Salicylates Acetaminophen Heparin-induced Plt Ab 11/07/18 11/07/18 11/07/18 16:25 17:37 23:23 WBC RBC Hgb Hct MCV MCHC RDW Plt Count Lymph % (Auto) Owen % (Auto) Lymph # Owen # Seg Neutrophils % Seg Neuts % (Manual) Lymphocytes % (Manual) Monocytes % (Manual) Nucleated RBC % Seg Neutrophils # Seg Neutrophils # Man Lymphocytes # (Manual) Monocytes # (Manual) POC ABG pH POC ABG pCO2 POC ABG pO2 VBG pH Sodium Potassium Chloride Carbon Dioxide BUN Creatinine Glucose POC Glucose 180 H 215 H 234 H Hemoglobin A1c Lactic Acid Calcium Phosphorus Magnesium Direct Bilirubin AST ALT C-Reactive Protein Total Protein Albumin Urine WBC (Auto) Salicylates Acetaminophen Heparin-induced Plt Ab 11/08/18 11/08/18 11/08/18 04:17 04:23 04:23 WBC RBC 2.98 L Hgb 9.3 L Hct 26.7 L MCV MCHC 35 H RDW Plt Count 130 L Lymph % (Auto) Owen % (Auto) Lymph # Owen # Seg Neutrophils % 80.3 H Seg Neuts % (Manual) Lymphocytes % (Manual) Monocytes % (Manual) Nucleated RBC % Seg Neutrophils # 7.8 H Seg Neutrophils # Man Lymphocytes # (Manual) Monocytes # (Manual) POC ABG pH 7.520 H POC ABG pCO2 POC ABG pO2 111 H VBG pH Sodium Potassium 3.0 L Chloride Carbon Dioxide BUN 44 H Creatinine 6.3 H Glucose 245 H POC Glucose Hemoglobin A1c Lactic Acid Calcium 7.3 L Phosphorus Magnesium Direct Bilirubin AST ALT C-Reactive Protein Total Protein Albumin Urine WBC (Auto) Salicylates Acetaminophen Heparin-induced Plt Ab 11/08/18 11/08/18 11/08/18 05:19 08:00 08:00 WBC RBC Hgb Hct MCV MCHC RDW Plt Count Lymph % (Auto) Owen % (Auto) Lymph # Owen # Seg Neutrophils % Seg Neuts % (Manual) Lymphocytes % (Manual) Monocytes % (Manual) Nucleated RBC % Seg Neutrophils # Seg Neutrophils # Man Lymphocytes # (Manual) Monocytes # (Manual) POC ABG pH POC ABG pCO2 POC ABG pO2 VBG pH Sodium Potassium Chloride Carbon Dioxide BUN Creatinine Glucose POC Glucose 253 H Hemoglobin A1c Lactic Acid 2.70 H* Calcium Phosphorus Magnesium Direct Bilirubin 0.3 H AST 932 H ALT 582 H C-Reactive Protein Total Protein 5.4 L Albumin 2.6 L Urine WBC (Auto) Salicylates Acetaminophen Heparin-induced Plt Ab 11/08/18 11/08/18 11/08/18 11:36 17:51 21:59 WBC RBC Hgb Hct MCV MCHC RDW Plt Count Lymph % (Auto) Owen % (Auto) Lymph # Owen # Seg Neutrophils % Seg Neuts % (Manual) Lymphocytes % (Manual) Monocytes % (Manual) Nucleated RBC % Seg Neutrophils # Seg Neutrophils # Man Lymphocytes # (Manual) Monocytes # (Manual) POC ABG pH 7.459 H POC ABG pCO2 POC ABG pO2 108 H VBG pH Sodium Potassium Chloride Carbon Dioxide BUN Creatinine Glucose POC Glucose 197 H Hemoglobin A1c Lactic Acid Calcium Phosphorus Magnesium Direct Bilirubin AST ALT C-Reactive Protein Total Protein Albumin Urine WBC (Auto) Salicylates Acetaminophen Heparin-induced Plt Ab Positive H 11/08/18 11/09/18 11/09/18 23:28 00:39 02:20 WBC RBC Hgb Hct MCV MCHC RDW Plt Count Lymph % (Auto) Owen % (Auto) Lymph # Owen # Seg Neutrophils % Seg Neuts % (Manual) Lymphocytes % (Manual) Monocytes % (Manual) Nucleated RBC % Seg Neutrophils # Seg Neutrophils # Man Lymphocytes # (Manual) Monocytes # (Manual) POC ABG pH POC ABG pCO2 POC ABG pO2 VBG pH Sodium Potassium Chloride Carbon Dioxide BUN Creatinine Glucose POC Glucose 418 H 471 H 254 H Hemoglobin A1c Lactic Acid Calcium Phosphorus Magnesium Direct Bilirubin AST ALT C-Reactive Protein Total Protein Albumin Urine WBC (Auto) Salicylates Acetaminophen Heparin-induced Plt Ab 11/09/18 11/09/18 11/09/18 03:48 06:02 06:02 WBC RBC 2.95 L Hgb 9.2 L Hct 26.7 L MCV MCHC RDW Plt Count 101 L Lymph % (Auto) Owen % (Auto) Lymph # Owen # Seg Neutrophils % Seg Neuts % (Manual) Lymphocytes % (Manual) Monocytes % (Manual) Nucleated RBC % Seg Neutrophils # Seg Neutrophils # Man Lymphocytes # (Manual) Monocytes # (Manual) POC ABG pH POC ABG pCO2 POC ABG pO2 108 H VBG pH Sodium 150 H Potassium Chloride 108.3 H Carbon Dioxide BUN 44 H Creatinine 7.7 H Glucose 102 H POC Glucose Hemoglobin A1c Lactic Acid Calcium 7.2 L Phosphorus Magnesium Direct Bilirubin AST 554 H ALT 461 H C-Reactive Protein Total Protein 5.1 L Albumin 2.6 L Urine WBC (Auto) Salicylates Acetaminophen Heparin-induced Plt Ab 11/09/18 11/09/18 11/09/18 17:49 18:49 23:32 WBC RBC Hgb Hct MCV MCHC RDW Plt Count Lymph % (Auto) Owen % (Auto) Lymph # Owen # Seg Neutrophils % Seg Neuts % (Manual) Lymphocytes % (Manual) Monocytes % (Manual) Nucleated RBC % Seg Neutrophils # Seg Neutrophils # Man Lymphocytes # (Manual) Monocytes # (Manual) POC ABG pH POC ABG pCO2 46.2 H POC ABG pO2 VBG pH Sodium Potassium Chloride Carbon Dioxide BUN Creatinine Glucose POC Glucose 184 H 150 H Hemoglobin A1c Lactic Acid Calcium Phosphorus Magnesium Direct Bilirubin AST ALT C-Reactive Protein Total Protein Albumin Urine WBC (Auto) Salicylates Acetaminophen Heparin-induced Plt Ab 11/10/18 11/10/18 11/10/18 02:52 05:00 05:00 WBC RBC 2.95 L Hgb 8.9 L Hct 26.6 L MCV MCHC RDW Plt Count 100 L Lymph % (Auto) Owen % (Auto) Lymph # Owen # Seg Neutrophils % Seg Neuts % (Manual) Lymphocytes % (Manual) Monocytes % (Manual) 8.0 H Nucleated RBC % Seg Neutrophils # Seg Neutrophils # Man Lymphocytes # (Manual) Monocytes # (Manual) POC ABG pH POC ABG pCO2 POC ABG pO2 VBG pH Sodium Potassium Chloride Carbon Dioxide BUN 33 H Creatinine 6.8 H Glucose 251 H POC Glucose 186 H Hemoglobin A1c Lactic Acid Calcium 7.3 L Phosphorus Magnesium Direct Bilirubin AST ALT C-Reactive Protein Total Protein Albumin Urine WBC (Auto) Salicylates Acetaminophen Heparin-induced Plt Ab 11/10/18 11/10/18 11/10/18 05:16 11:47 17:32 WBC RBC Hgb Hct MCV MCHC RDW Plt Count Lymph % (Auto) Owen % (Auto) Lymph # Owen # Seg Neutrophils % Seg Neuts % (Manual) Lymphocytes % (Manual) Monocytes % (Manual) Nucleated RBC % Seg Neutrophils # Seg Neutrophils # Man Lymphocytes # (Manual) Monocytes # (Manual) POC ABG pH POC ABG pCO2 POC ABG pO2 VBG pH Sodium Potassium Chloride Carbon Dioxide BUN Creatinine Glucose POC Glucose 242 H 261 H 194 H Hemoglobin A1c Lactic Acid Calcium Phosphorus Magnesium Direct Bilirubin AST ALT C-Reactive Protein Total Protein Albumin Urine WBC (Auto) Salicylates Acetaminophen Heparin-induced Plt Ab 11/10/18 11/11/18 11/11/18 23:39 00:26 04:24 WBC RBC 2.98 L Hgb 9.1 L Hct 27.4 L MCV MCHC RDW Plt Count 114 L Lymph % (Auto) Owen % (Auto) Lymph # Owen # Seg Neutrophils % Seg Neuts % (Manual) Lymphocytes % (Manual) Monocytes % (Manual) 10.0 H Nucleated RBC % Seg Neutrophils # Seg Neutrophils # Man Lymphocytes # (Manual) Monocytes # (Manual) 1.0 H POC ABG pH POC ABG pCO2 POC ABG pO2 VBG pH Sodium Potassium Chloride Carbon Dioxide BUN Creatinine Glucose POC Glucose 60 L 124 H Hemoglobin A1c Lactic Acid Calcium Phosphorus Magnesium Direct Bilirubin AST ALT C-Reactive Protein Total Protein Albumin Urine WBC (Auto) Salicylates Acetaminophen Heparin-induced Plt Ab 11/11/18 11/11/18 11/11/18 04:24 05:27 05:31 WBC RBC Hgb Hct MCV MCHC RDW Plt Count Lymph % (Auto) Owen % (Auto) Lymph # Owen # Seg Neutrophils % Seg Neuts % (Manual) Lymphocytes % (Manual) Monocytes % (Manual) Nucleated RBC % Seg Neutrophils # Seg Neutrophils # Man Lymphocytes # (Manual) Monocytes # (Manual) POC ABG pH POC ABG pCO2 48.8 H POC ABG pO2 109 H VBG pH Sodium Potassium Chloride Carbon Dioxide BUN 23 H Creatinine 5.5 H Glucose 147 H POC Glucose 172 H Hemoglobin A1c Lactic Acid Calcium 7.9 L Phosphorus Magnesium Direct Bilirubin AST 152 H ALT 247 H C-Reactive Protein Total Protein Albumin 2.3 L Urine WBC (Auto) Salicylates Acetaminophen Heparin-induced Plt Ab 11/11/18 11/11/18 11/11/18 12:11 17:12 23:41 WBC RBC Hgb Hct MCV MCHC RDW Plt Count Lymph % (Auto) Owen % (Auto) Lymph # Owen # Seg Neutrophils % Seg Neuts % (Manual) Lymphocytes % (Manual) Monocytes % (Manual) Nucleated RBC % Seg Neutrophils # Seg Neutrophils # Man Lymphocytes # (Manual) Monocytes # (Manual) POC ABG pH POC ABG pCO2 POC ABG pO2 VBG pH Sodium Potassium Chloride Carbon Dioxide BUN Creatinine Glucose POC Glucose 343 H 188 H 145 H Hemoglobin A1c Lactic Acid Calcium Phosphorus Magnesium Direct Bilirubin AST ALT C-Reactive Protein Total Protein Albumin Urine WBC (Auto) Salicylates Acetaminophen Heparin-induced Plt Ab 11/12/18 11/12/18 11/12/18 00:11 04:44 04:44 WBC RBC 2.91 L Hgb 9.0 L Hct 26.9 L MCV MCHC RDW Plt Count Lymph % (Auto) 12.7 L Owen % (Auto) 14.9 H Lymph # 0.8 L Owen # 1.0 H Seg Neutrophils % 71.2 H Seg Neuts % (Manual) Lymphocytes % (Manual) Monocytes % (Manual) Nucleated RBC % Seg Neutrophils # Seg Neutrophils # Man Lymphocytes # (Manual) Monocytes # (Manual) POC ABG pH POC ABG pCO2 POC ABG pO2 VBG pH Sodium Potassium Chloride Carbon Dioxide BUN 22 H Creatinine 5.0 H Glucose 288 H POC Glucose 151 H Hemoglobin A1c Lactic Acid Calcium Phosphorus Magnesium Direct Bilirubin AST 88 H ALT 187 H C-Reactive Protein Total Protein Albumin 2.9 L Urine WBC (Auto) Salicylates Acetaminophen Heparin-induced Plt Ab 11/12/18 11/12/18 11/12/18 11:48 12:28 17:13 WBC RBC Hgb Hct MCV MCHC RDW Plt Count Lymph % (Auto) Owen % (Auto) Lymph # Owen # Seg Neutrophils % Seg Neuts % (Manual) Lymphocytes % (Manual) Monocytes % (Manual) Nucleated RBC % Seg Neutrophils # Seg Neutrophils # Man Lymphocytes # (Manual) Monocytes # (Manual) POC ABG pH POC ABG pCO2 POC ABG pO2 VBG pH Sodium Potassium Chloride Carbon Dioxide BUN Creatinine Glucose POC Glucose 414 H 437 H 251 H Hemoglobin A1c Lactic Acid Calcium Phosphorus Magnesium Direct Bilirubin AST ALT C-Reactive Protein Total Protein Albumin Urine WBC (Auto) Salicylates Acetaminophen Heparin-induced Plt Ab 11/13/18 11/13/18 11/13/18 00:43 04:14 04:14 WBC RBC 2.62 L Hgb 8.0 L Hct 24.0 L MCV MCHC RDW Plt Count Lymph % (Auto) Owen % (Auto) 15.8 H Lymph # Owen # 0.9 H Seg Neutrophils % Seg Neuts % (Manual) Lymphocytes % (Manual) Monocytes % (Manual) Nucleated RBC % Seg Neutrophils # Seg Neutrophils # Man Lymphocytes # (Manual) Monocytes # (Manual) POC ABG pH POC ABG pCO2 POC ABG pO2 VBG pH Sodium Potassium Chloride Carbon Dioxide BUN 32 H Creatinine 6.9 H Glucose 190 H POC Glucose 149 H Hemoglobin A1c Lactic Acid Calcium Phosphorus Magnesium Direct Bilirubin AST ALT C-Reactive Protein Total Protein Albumin Urine WBC (Auto) Salicylates Acetaminophen Heparin-induced Plt Ab 11/13/18 11/13/18 11/13/18 05:53 10:40 12:05 WBC RBC Hgb Hct MCV MCHC RDW Plt Count Lymph % (Auto) Owen % (Auto) Lymph # Owen # Seg Neutrophils % Seg Neuts % (Manual) Lymphocytes % (Manual) Monocytes % (Manual) Nucleated RBC % Seg Neutrophils # Seg Neutrophils # Man Lymphocytes # (Manual) Monocytes # (Manual) POC ABG pH POC ABG pCO2 POC ABG pO2 VBG pH Sodium Potassium Chloride Carbon Dioxide BUN Creatinine Glucose POC Glucose 270 H 405 H 361 H Hemoglobin A1c Lactic Acid Calcium Phosphorus Magnesium Direct Bilirubin AST ALT C-Reactive Protein Total Protein Albumin Urine WBC (Auto) Salicylates Acetaminophen Heparin-induced Plt Ab 11/13/18 11/13/18 11/14/18 18:48 23:55 04:57 WBC RBC 2.75 L Hgb 8.3 L Hct 25.2 L MCV MCHC RDW Plt Count Lymph % (Auto) Owen % (Auto) 15.8 H Lymph # 0.9 L Owen # 0.9 H Seg Neutrophils % Seg Neuts % (Manual) Lymphocytes % (Manual) Monocytes % (Manual) Nucleated RBC % Seg Neutrophils # Seg Neutrophils # Man Lymphocytes # (Manual) Monocytes # (Manual) POC ABG pH POC ABG pCO2 POC ABG pO2 VBG pH Sodium Potassium Chloride Carbon Dioxide BUN Creatinine Glucose POC Glucose 202 H 254 H Hemoglobin A1c Lactic Acid Calcium Phosphorus Magnesium Direct Bilirubin AST ALT C-Reactive Protein Total Protein Albumin Urine WBC (Auto) Salicylates Acetaminophen Heparin-induced Plt Ab 11/14/18 11/14/18 11/14/18 04:57 05:33 11:37 WBC RBC Hgb Hct MCV MCHC RDW Plt Count Lymph % (Auto) Owen % (Auto) Lymph # Owen # Seg Neutrophils % Seg Neuts % (Manual) Lymphocytes % (Manual) Monocytes % (Manual) Nucleated RBC % Seg Neutrophils # Seg Neutrophils # Man Lymphocytes # (Manual) Monocytes # (Manual) POC ABG pH POC ABG pCO2 POC ABG pO2 VBG pH Sodium 136 L Potassium Chloride 96.7 L Carbon Dioxide BUN 25 H Creatinine 5.3 H Glucose 235 H POC Glucose 242 H 272 H Hemoglobin A1c Lactic Acid Calcium Phosphorus Magnesium Direct Bilirubin AST ALT C-Reactive Protein Total Protein Albumin Urine WBC (Auto) Salicylates Acetaminophen Heparin-induced Plt Ab 11/14/18 11/14/18 11/15/18 18:08 23:21 04:50 WBC RBC 2.76 L Hgb 8.5 L Hct 25.4 L MCV MCHC RDW Plt Count Lymph % (Auto) Owen % (Auto) 14.5 H Lymph # Owen # 1.1 H Seg Neutrophils % Seg Neuts % (Manual) Lymphocytes % (Manual) Monocytes % (Manual) Nucleated RBC % Seg Neutrophils # Seg Neutrophils # Man Lymphocytes # (Manual) Monocytes # (Manual) POC ABG pH POC ABG pCO2 POC ABG pO2 VBG pH Sodium Potassium Chloride Carbon Dioxide BUN Creatinine Glucose POC Glucose 166 H 185 H Hemoglobin A1c Lactic Acid Calcium Phosphorus Magnesium Direct Bilirubin AST ALT C-Reactive Protein Total Protein Albumin Urine WBC (Auto) Salicylates Acetaminophen Heparin-induced Plt Ab 11/15/18 11/15/18 11/15/18 04:50 04:50 06:01 WBC RBC Hgb Hct MCV MCHC RDW Plt Count Lymph % (Auto) Owen % (Auto) Lymph # Owen # Seg Neutrophils % Seg Neuts % (Manual) Lymphocytes % (Manual) Monocytes % (Manual) Nucleated RBC % Seg Neutrophils # Seg Neutrophils # Man Lymphocytes # (Manual) Monocytes # (Manual) POC ABG pH POC ABG pCO2 POC ABG pO2 VBG pH Sodium Potassium Chloride 95.2 L Carbon Dioxide BUN 21 H Creatinine 4.8 H Glucose 126 H POC Glucose 150 H Hemoglobin A1c 10.1 H Lactic Acid Calcium Phosphorus Magnesium Direct Bilirubin AST ALT 69 H C-Reactive Protein Total Protein Albumin 2.7 L Urine WBC (Auto) Salicylates Acetaminophen Heparin-induced Plt Ab 11/15/18 11/15/18 11/16/18 13:06 18:08 00:39 WBC RBC Hgb Hct MCV MCHC RDW Plt Count Lymph % (Auto) Owen % (Auto) Lymph # Owen # Seg Neutrophils % Seg Neuts % (Manual) Lymphocytes % (Manual) Monocytes % (Manual) Nucleated RBC % Seg Neutrophils # Seg Neutrophils # Man Lymphocytes # (Manual) Monocytes # (Manual) POC ABG pH POC ABG pCO2 POC ABG pO2 VBG pH Sodium Potassium Chloride Carbon Dioxide BUN Creatinine Glucose POC Glucose 191 H 114 H 147 H Hemoglobin A1c Lactic Acid Calcium Phosphorus Magnesium Direct Bilirubin AST ALT C-Reactive Protein Total Protein Albumin Urine WBC (Auto) Salicylates Acetaminophen Heparin-induced Plt Ab 11/16/18 11/16/18 11/16/18 04:49 04:49 06:09 WBC RBC 2.60 L Hgb 8.0 L Hct 23.4 L MCV MCHC RDW Plt Count Lymph % (Auto) Owen % (Auto) 14.1 H Lymph # Owen # 1.2 H Seg Neutrophils % Seg Neuts % (Manual) Lymphocytes % (Manual) Monocytes % (Manual) Nucleated RBC % Seg Neutrophils # Seg Neutrophils # Man Lymphocytes # (Manual) Monocytes # (Manual) POC ABG pH POC ABG pCO2 POC ABG pO2 VBG pH Sodium 136 L Potassium Chloride 94.1 L Carbon Dioxide BUN 39 H Creatinine 7.4 H D Glucose 243 H POC Glucose 308 H Hemoglobin A1c Lactic Acid Calcium 8.3 L Phosphorus Magnesium Direct Bilirubin AST ALT C-Reactive Protein Total Protein Albumin 2.2 L Urine WBC (Auto) Salicylates Acetaminophen Heparin-induced Plt Ab 11/16/18 11/16/18 11/16/18 08:52 11:53 17:11 WBC RBC Hgb Hct MCV MCHC RDW Plt Count Lymph % (Auto) Owen % (Auto) Lymph # Owen # Seg Neutrophils % Seg Neuts % (Manual) Lymphocytes % (Manual) Monocytes % (Manual) Nucleated RBC % Seg Neutrophils # Seg Neutrophils # Man Lymphocytes # (Manual) Monocytes # (Manual) POC ABG pH POC ABG pCO2 POC ABG pO2 VBG pH Sodium Potassium Chloride Carbon Dioxide BUN Creatinine Glucose POC Glucose 278 H 178 H 173 H Hemoglobin A1c Lactic Acid Calcium Phosphorus Magnesium Direct Bilirubin AST ALT C-Reactive Protein Total Protein Albumin Urine WBC (Auto) Salicylates Acetaminophen Heparin-induced Plt Ab 11/16/18 11/17/18 11/17/18 21:27 00:08 04:45 WBC RBC 2.58 L Hgb 7.9 L Hct 23.5 L MCV MCHC RDW Plt Count Lymph % (Auto) Owen % (Auto) 10.3 H Lymph # Owen # 1.1 H Seg Neutrophils % 74.8 H Seg Neuts % (Manual) Lymphocytes % (Manual) Monocytes % (Manual) Nucleated RBC % Seg Neutrophils # Seg Neutrophils # Man Lymphocytes # (Manual) Monocytes # (Manual) POC ABG pH POC ABG pCO2 POC ABG pO2 VBG pH Sodium Potassium Chloride Carbon Dioxide BUN Creatinine Glucose POC Glucose 206 H 151 H Hemoglobin A1c Lactic Acid Calcium Phosphorus Magnesium Direct Bilirubin AST ALT C-Reactive Protein Total Protein Albumin Urine WBC (Auto) Salicylates Acetaminophen Heparin-induced Plt Ab 11/17/18 11/17/18 11/17/18 04:45 05:12 05:31 WBC RBC Hgb Hct MCV MCHC RDW Plt Count Lymph % (Auto) Owen % (Auto) Lymph # Owen # Seg Neutrophils % Seg Neuts % (Manual) Lymphocytes % (Manual) Monocytes % (Manual) Nucleated RBC % Seg Neutrophils # Seg Neutrophils # Man Lymphocytes # (Manual) Monocytes # (Manual) POC ABG pH 7.481 H POC ABG pCO2 POC ABG pO2 VBG pH Sodium 136 L Potassium Chloride 94.4 L Carbon Dioxide BUN 38 H Creatinine 6.8 H Glucose POC Glucose 111 H Hemoglobin A1c Lactic Acid Calcium Phosphorus Magnesium 2.40 H Direct Bilirubin AST ALT C-Reactive Protein Total Protein Albumin Urine WBC (Auto) Salicylates Acetaminophen Heparin-induced Plt Ab 11/17/18 11/17/18 11/18/18 12:10 23:23 04:24 WBC RBC 2.66 L Hgb 8.2 L Hct 24.0 L MCV MCHC RDW Plt Count 448 H Lymph % (Auto) Owen % (Auto) 12.7 H Lymph # Owen # 1.4 H Seg Neutrophils % 71.9 H Seg Neuts % (Manual) Lymphocytes % (Manual) Monocytes % (Manual) Nucleated RBC % Seg Neutrophils # Seg Neutrophils # Man Lymphocytes # (Manual) Monocytes # (Manual) POC ABG pH POC ABG pCO2 POC ABG pO2 VBG pH Sodium Potassium Chloride Carbon Dioxide BUN Creatinine Glucose POC Glucose 174 H 243 H Hemoglobin A1c Lactic Acid Calcium Phosphorus Magnesium Direct Bilirubin AST ALT C-Reactive Protein Total Protein Albumin Urine WBC (Auto) Salicylates Acetaminophen Heparin-induced Plt Ab 11/18/18 11/18/18 11/18/18 04:24 05:26 11:48 WBC RBC Hgb Hct MCV MCHC RDW Plt Count Lymph % (Auto) Owen % (Auto) Lymph # Owen # Seg Neutrophils % Seg Neuts % (Manual) Lymphocytes % (Manual) Monocytes % (Manual) Nucleated RBC % Seg Neutrophils # Seg Neutrophils # Man Lymphocytes # (Manual) Monocytes # (Manual) POC ABG pH POC ABG pCO2 POC ABG pO2 VBG pH Sodium 136 L Potassium Chloride 93.1 L Carbon Dioxide BUN 30 H Creatinine 5.9 H Glucose 211 H POC Glucose 205 H 162 H Hemoglobin A1c Lactic Acid Calcium Phosphorus Magnesium Direct Bilirubin AST ALT C-Reactive Protein Total Protein Albumin Urine WBC (Auto) Salicylates Acetaminophen Heparin-induced Plt Ab 11/18/18 11/18/18 11/18/18 12:01 19:37 23:21 WBC RBC Hgb Hct MCV MCHC RDW Plt Count Lymph % (Auto) Owen % (Auto) Lymph # Owen # Seg Neutrophils % Seg Neuts % (Manual) Lymphocytes % (Manual) Monocytes % (Manual) Nucleated RBC % Seg Neutrophils # Seg Neutrophils # Man Lymphocytes # (Manual) Monocytes # (Manual) POC ABG pH POC ABG pCO2 POC ABG pO2 VBG pH Sodium Potassium Chloride Carbon Dioxide BUN Creatinine Glucose POC Glucose 207 H 245 H Hemoglobin A1c Lactic Acid Calcium Phosphorus Magnesium Direct Bilirubin AST ALT C-Reactive Protein Total Protein Albumin Urine WBC (Auto) > 182.0 H Salicylates Acetaminophen Heparin-induced Plt Ab 11/19/18 11/19/18 11/19/18 04:24 05:21 12:01 WBC RBC Hgb Hct MCV MCHC RDW Plt Count Lymph % (Auto) Owen % (Auto) Lymph # Owen # Seg Neutrophils % Seg Neuts % (Manual) Lymphocytes % (Manual) Monocytes % (Manual) Nucleated RBC % Seg Neutrophils # Seg Neutrophils # Man Lymphocytes # (Manual) Monocytes # (Manual) POC ABG pH POC ABG pCO2 POC ABG pO2 VBG pH Sodium 134 L Potassium 5.4 H Chloride 89.8 L Carbon Dioxide BUN 54 H Creatinine 8.0 H Glucose 240 H POC Glucose 234 H 179 H Hemoglobin A1c Lactic Acid Calcium Phosphorus Magnesium Direct Bilirubin AST ALT C-Reactive Protein Total Protein Albumin Urine WBC (Auto) Salicylates Acetaminophen Heparin-induced Plt Ab 11/19/18 11/19/18 11/19/18 12:41 17:32 21:53 WBC 13.7 H RBC 2.73 L Hgb 8.3 L Hct 24.9 L MCV MCHC RDW Plt Count 479 H Lymph % (Auto) Owen % (Auto) Lymph # Owen # Seg Neutrophils % Seg Neuts % (Manual) Lymphocytes % (Manual) Monocytes % (Manual) Nucleated RBC % Seg Neutrophils # Seg Neutrophils # Man Lymphocytes # (Manual) Monocytes # (Manual) POC ABG pH POC ABG pCO2 POC ABG pO2 VBG pH Sodium Potassium Chloride Carbon Dioxide BUN Creatinine Glucose POC Glucose 317 H 421 H Hemoglobin A1c Lactic Acid Calcium Phosphorus Magnesium Direct Bilirubin AST ALT C-Reactive Protein Total Protein Albumin Urine WBC (Auto) Salicylates Acetaminophen Heparin-induced Plt Ab 11/19/18 11/20/18 11/20/18 23:16 06:03 10:25 WBC 11.9 H RBC 2.58 L Hgb 7.8 L Hct 23.1 L MCV MCHC RDW Plt Count 444 H Lymph % (Auto) Owen % (Auto) Lymph # Owen # Seg Neutrophils % Seg Neuts % (Manual) Lymphocytes % (Manual) Monocytes % (Manual) Nucleated RBC % Seg Neutrophils # Seg Neutrophils # Man Lymphocytes # (Manual) Monocytes # (Manual) POC ABG pH POC ABG pCO2 POC ABG pO2 VBG pH Sodium Potassium Chloride Carbon Dioxide BUN Creatinine Glucose POC Glucose 396 H 294 H Hemoglobin A1c Lactic Acid Calcium Phosphorus Magnesium Direct Bilirubin AST ALT C-Reactive Protein Total Protein Albumin Urine WBC (Auto) Salicylates Acetaminophen Heparin-induced Plt Ab 11/20/18 11/20/18 11/20/18 10:25 12:39 16:34 WBC RBC Hgb Hct MCV MCHC RDW Plt Count Lymph % (Auto) Owen % (Auto) Lymph # Owen # Seg Neutrophils % Seg Neuts % (Manual) Lymphocytes % (Manual) Monocytes % (Manual) Nucleated RBC % Seg Neutrophils # Seg Neutrophils # Man Lymphocytes # (Manual) Monocytes # (Manual) POC ABG pH POC ABG pCO2 POC ABG pO2 VBG pH Sodium 135 L Potassium 6.1 H* 5.1 H Chloride 89.8 L Carbon Dioxide BUN 55 H Creatinine 8.2 H Glucose 302 H POC Glucose 245 H Hemoglobin A1c Lactic Acid Calcium Phosphorus Magnesium Direct Bilirubin AST ALT C-Reactive Protein Total Protein Albumin Urine WBC (Auto) Salicylates Acetaminophen Heparin-induced Plt Ab 11/20/18 11/20/18 11/20/18 17:45 18:16 23:12 WBC RBC Hgb Hct MCV MCHC RDW Plt Count Lymph % (Auto) Owen % (Auto) Lymph # Owen # Seg Neutrophils % Seg Neuts % (Manual) Lymphocytes % (Manual) Monocytes % (Manual) Nucleated RBC % Seg Neutrophils # Seg Neutrophils # Man Lymphocytes # (Manual) Monocytes # (Manual) POC ABG pH POC ABG pCO2 POC ABG pO2 VBG pH Sodium Potassium 5.2 H Chloride 90.2 L Carbon Dioxide BUN 60 H Creatinine 8.9 H Glucose 217 H POC Glucose 211 H 320 H Hemoglobin A1c Lactic Acid Calcium Phosphorus Magnesium Direct Bilirubin AST ALT C-Reactive Protein Total Protein Albumin Urine WBC (Auto) Salicylates Acetaminophen Heparin-induced Plt Ab 11/21/18 11/21/18 11/21/18 04:44 04:44 05:32 WBC RBC 2.51 L Hgb 7.8 L Hct 22.3 L MCV MCHC 35 H RDW Plt Count Lymph % (Auto) Owen % (Auto) 9.5 H Lymph # Owen # 1.0 H Seg Neutrophils % 72.3 H Seg Neuts % (Manual) Lymphocytes % (Manual) Monocytes % (Manual) Nucleated RBC % Seg Neutrophils # Seg Neutrophils # Man Lymphocytes # (Manual) Monocytes # (Manual) POC ABG pH POC ABG pCO2 POC ABG pO2 VBG pH Sodium Potassium Chloride 92.7 L Carbon Dioxide BUN 36 H Creatinine 5.9 H Glucose 209 H POC Glucose 203 H Hemoglobin A1c Lactic Acid Calcium Phosphorus 5.50 H Magnesium Direct Bilirubin AST ALT C-Reactive Protein Total Protein Albumin Urine WBC (Auto) Salicylates Acetaminophen Heparin-induced Plt Ab 11/21/18 11/21/18 11/21/18 10:45 12:18 17:49 WBC RBC Hgb Hct MCV MCHC RDW Plt Count Lymph % (Auto) Owen % (Auto) Lymph # Owen # Seg Neutrophils % Seg Neuts % (Manual) Lymphocytes % (Manual) Monocytes % (Manual) Nucleated RBC % Seg Neutrophils # Seg Neutrophils # Man Lymphocytes # (Manual) Monocytes # (Manual) POC ABG pH 7.473 H POC ABG pCO2 POC ABG pO2 121 H VBG pH Sodium Potassium Chloride Carbon Dioxide BUN Creatinine Glucose POC Glucose 149 H 233 H Hemoglobin A1c Lactic Acid Calcium Phosphorus Magnesium Direct Bilirubin AST ALT C-Reactive Protein Total Protein Albumin Urine WBC (Auto) Salicylates Acetaminophen Heparin-induced Plt Ab 11/21/18 11/22/18 11/22/18 23:39 04:52 04:52 WBC 15.1 H RBC 2.59 L Hgb 7.6 L Hct 23.5 L MCV MCHC RDW Plt Count 472 H Lymph % (Auto) 9.9 L Owen % (Auto) 9.7 H Lymph # Owen # 1.5 H Seg Neutrophils % 79.2 H Seg Neuts % (Manual) Lymphocytes % (Manual) Monocytes % (Manual) Nucleated RBC % Seg Neutrophils # 11.9 H Seg Neutrophils # Man Lymphocytes # (Manual) Monocytes # (Manual) POC ABG pH POC ABG pCO2 POC ABG pO2 VBG pH Sodium Potassium Chloride 94.9 L Carbon Dioxide BUN 34 H Creatinine 5.6 H Glucose 182 H POC Glucose 235 H Hemoglobin A1c Lactic Acid Calcium Phosphorus Magnesium Direct Bilirubin AST ALT C-Reactive Protein Total Protein Albumin Urine WBC (Auto) Salicylates Acetaminophen Heparin-induced Plt Ab 11/22/18 11/22/18 11/22/18 05:49 11:39 16:20 WBC RBC Hgb Hct MCV MCHC RDW Plt Count Lymph % (Auto) Owen % (Auto) Lymph # Owen # Seg Neutrophils % Seg Neuts % (Manual) Lymphocytes % (Manual) Monocytes % (Manual) Nucleated RBC % Seg Neutrophils # Seg Neutrophils # Man Lymphocytes # (Manual) Monocytes # (Manual) POC ABG pH POC ABG pCO2 POC ABG pO2 VBG pH Sodium Potassium Chloride Carbon Dioxide BUN Creatinine Glucose POC Glucose 264 H 277 H 303 H Hemoglobin A1c Lactic Acid Calcium Phosphorus Magnesium Direct Bilirubin AST ALT C-Reactive Protein Total Protein Albumin Urine WBC (Auto) Salicylates Acetaminophen Heparin-induced Plt Ab 11/22/18 11/23/18 11/23/18 23:17 04:39 04:39 WBC 12.6 H RBC 2.36 L Hgb 7.1 L Hct 21.2 L MCV MCHC RDW Plt Count Lymph % (Auto) 11.8 L Owen % (Auto) 9.8 H Lymph # Owen # 1.2 H Seg Neutrophils % 77.8 H Seg Neuts % (Manual) Lymphocytes % (Manual) Monocytes % (Manual) Nucleated RBC % Seg Neutrophils # 9.8 H Seg Neutrophils # Man Lymphocytes # (Manual) Monocytes # (Manual) POC ABG pH POC ABG pCO2 POC ABG pO2 VBG pH Sodium 135 L Potassium Chloride 90.4 L Carbon Dioxide BUN 60 H Creatinine 8.5 H D Glucose 345 H POC Glucose 232 H Hemoglobin A1c Lactic Acid Calcium Phosphorus 5.20 H D Magnesium Direct Bilirubin AST ALT C-Reactive Protein Total Protein Albumin Urine WBC (Auto) Salicylates Acetaminophen Heparin-induced Plt Ab 11/23/18 11/23/18 11/23/18 05:49 05:53 12:05 WBC RBC Hgb Hct MCV MCHC RDW Plt Count Lymph % (Auto) Owen % (Auto) Lymph # Owen # Seg Neutrophils % Seg Neuts % (Manual) Lymphocytes % (Manual) Monocytes % (Manual) Nucleated RBC % Seg Neutrophils # Seg Neutrophils # Man Lymphocytes # (Manual) Monocytes # (Manual) POC ABG pH POC ABG pCO2 POC ABG pO2 VBG pH Sodium Potassium Chloride Carbon Dioxide BUN Creatinine Glucose POC Glucose 410 H 366 H 335 H Hemoglobin A1c Lactic Acid Calcium Phosphorus Magnesium Direct Bilirubin AST ALT C-Reactive Protein Total Protein Albumin Urine WBC (Auto) Salicylates Acetaminophen Heparin-induced Plt Ab 11/23/18 11/23/18 11/23/18 18:00 18:16 21:28 WBC RBC Hgb Hct MCV MCHC RDW Plt Count Lymph % (Auto) Owen % (Auto) Lymph # Owen # Seg Neutrophils % Seg Neuts % (Manual) Lymphocytes % (Manual) Monocytes % (Manual) Nucleated RBC % Seg Neutrophils # Seg Neutrophils # Man Lymphocytes # (Manual) Monocytes # (Manual) POC ABG pH POC ABG pCO2 POC ABG pO2 VBG pH Sodium Potassium Chloride Carbon Dioxide BUN Creatinine Glucose POC Glucose 401 H 326 H Hemoglobin A1c Lactic Acid Calcium Phosphorus Magnesium Direct Bilirubin AST ALT C-Reactive Protein Total Protein Albumin Urine WBC (Auto) > 182.0 H Salicylates Acetaminophen Heparin-induced Plt Ab 11/23/18 11/24/18 11/24/18 23:02 05:18 05:18 WBC RBC 2.44 L Hgb 7.4 L Hct 21.9 L MCV MCHC RDW Plt Count 447 H Lymph % (Auto) Owen % (Auto) 10.1 H Lymph # Owen # 1.1 H Seg Neutrophils % 75.4 H Seg Neuts % (Manual) Lymphocytes % (Manual) Monocytes % (Manual) Nucleated RBC % Seg Neutrophils # 8.0 H Seg Neutrophils # Man Lymphocytes # (Manual) Monocytes # (Manual) POC ABG pH POC ABG pCO2 POC ABG pO2 VBG pH Sodium Potassium Chloride 91.7 L Carbon Dioxide BUN 88 H Creatinine 11.3 H Glucose 320 H POC Glucose 305 H Hemoglobin A1c Lactic Acid Calcium Phosphorus 6.60 H D Magnesium Direct Bilirubin AST ALT C-Reactive Protein Total Protein Albumin Urine WBC (Auto) Salicylates Acetaminophen Heparin-induced Plt Ab 11/24/18 11/24/18 11/24/18 05:32 11:07 12:13 WBC RBC Hgb Hct MCV MCHC RDW Plt Count Lymph % (Auto) Owen % (Auto) Lymph # Owen # Seg Neutrophils % Seg Neuts % (Manual) Lymphocytes % (Manual) Monocytes % (Manual) Nucleated RBC % Seg Neutrophils # Seg Neutrophils # Man Lymphocytes # (Manual) Monocytes # (Manual) POC ABG pH POC ABG pCO2 POC ABG pO2 VBG pH Sodium Potassium Chloride Carbon Dioxide BUN Creatinine Glucose POC Glucose 356 H 352 H 355 H Hemoglobin A1c Lactic Acid Calcium Phosphorus Magnesium Direct Bilirubin AST ALT C-Reactive Protein Total Protein Albumin Urine WBC (Auto) Salicylates Acetaminophen Heparin-induced Plt Ab 11/24/18 11/24/18 11/24/18 13:27 14:34 15:03 WBC RBC Hgb Hct MCV MCHC RDW Plt Count Lymph % (Auto) Owen % (Auto) Lymph # Owen # Seg Neutrophils % Seg Neuts % (Manual) Lymphocytes % (Manual) Monocytes % (Manual) Nucleated RBC % Seg Neutrophils # Seg Neutrophils # Man Lymphocytes # (Manual) Monocytes # (Manual) POC ABG pH 7.503 H POC ABG pCO2 POC ABG pO2 146 H VBG pH Sodium Potassium Chloride Carbon Dioxide BUN Creatinine Glucose POC Glucose 267 H 193 H Hemoglobin A1c Lactic Acid Calcium Phosphorus Magnesium Direct Bilirubin AST ALT C-Reactive Protein Total Protein Albumin Urine WBC (Auto) Salicylates Acetaminophen Heparin-induced Plt Ab 11/24/18 11/24/18 11/24/18 15:32 16:24 17:30 WBC RBC Hgb Hct MCV MCHC RDW Plt Count Lymph % (Auto) Owen % (Auto) Lymph # Owen # Seg Neutrophils % Seg Neuts % (Manual) Lymphocytes % (Manual) Monocytes % (Manual) Nucleated RBC % Seg Neutrophils # Seg Neutrophils # Man Lymphocytes # (Manual) Monocytes # (Manual) POC ABG pH POC ABG pCO2 POC ABG pO2 VBG pH Sodium Potassium Chloride Carbon Dioxide BUN Creatinine Glucose POC Glucose 182 H 216 H 207 H Hemoglobin A1c Lactic Acid Calcium Phosphorus Magnesium Direct Bilirubin AST ALT C-Reactive Protein Total Protein Albumin Urine WBC (Auto) Salicylates Acetaminophen Heparin-induced Plt Ab - Diagnostic Findings Additional findings: CT head with non specific white matter changes
[2018-11-25] MEDS: LOPRESSOR PO SCH ×4 (04:30→22:04)
[2018-11-25] MEDS: APRESOLINE PO SCH ×3 (05:32→22:03)
[2018-11-25 05:57] LABS: Hematocrit 23.8 % (35.5-45.6); Hemoglobin 7.8 gm/dl (11.8-15.2); Mean Corpuscular HGB Conc 33 % (32-34); Mean Corpuscular Volume 94 fl (84-94); Platelet Count 413 K/mm3 (140-440); Red Blood Count 2.53 M/mm3 (3.65-5.03); Red Cell Distribution Width 15.2 % (13.2-15.2)
[2018-11-25] MEDS: HumuLIN R 100 UNITS in NACL 0.9% 99 ML IV SCH (06:30)
[2018-11-25] MEDS: KEPPRA PO SCH ×2 (09:17→22:04)
[2018-11-25] MEDS: ELIQUIS FEEDTUBE SCH ×2 (09:17→22:04)
[2018-11-25] MEDS: PROVIGIL PO SCH (09:17)
[2018-11-25] MEDS: FLOMAX PO SCH (09:17)
[2018-11-25] MEDS: SODIUM CHLORIDE FLUSH SYRINGE 10 ML IV SCH ×2 (09:18→22:04)
[2018-11-25] MEDS: PREVACID SOLUTAB FEEDTUBE SCH ×2 (09:18→22:03)
[2018-11-25] MEDS: MAXIPIME/NS 1 GM/100 ML 1 GM/100 ML BAG IV SCH (09:19)
--- NOTE | 2018-11-25 13:42 | Discharge Summary ---
Providers - Providers Date of Admission: 11/06/18 12:42 Date of discharge: 11/26/18 Attending physician: JACKLYN KRUEGER 11/06/18 08:27 Consult to Dietitian/Nutrition [CONS] Routine Physician Instructions: Reason For Exam: Reason for Consult: Evaluate nutritional intake 11/06/18 13:40 Consult to Physician [CONS] Routine Comment: Consulting Provider: KENNETH HUNG Physician Instructions: Reason For Exam: Respiratory Failure 11/06/18 15:22 Consult to Physician [CONS] Routine Comment: Consulting Provider: ANANDA HURTADO Physician Instructions: Reason For Exam: Anoxic Brain Injury 11/06/18 15:27 Consult to Physician [CONS] Routine Comment: Consulting Provider: KHANG BARAJAS Physician Instructions: Reason For Exam: ESRD 11/08/18 04:06 Consult to Wound/ET Nurse [CONS] Stat Reason For Exam: Patient has a swollen/bruised lip getting worse 11/08/18 18:34 Consult to Dietitian/Nutrition [CONS] Routine Physician Instructions: Reason For Exam: Reason for Consult: Write/Manage Tube Feeding 11/12/18 12:32 Midline [Consult to PICC Line RN] [CONS] Urgent Reason For Exam: for IV access Type Line:: Midline 11/12/18 18:48 Consult to Wound/ET Nurse [CONS] Routine Reason For Exam: wound eval 11/16/18 12:32 Consult to Physician [CONS] Routine Comment: Consulting Provider: JETT BURRELL Physician Instructions: Reason For Exam: Assist with Trach and PEG placement 11/19/18 11:39 Consult to Physician [CONS] Routine Comment: Consulting Provider: JUAN M MARTINEZ Physician Instructions: Reason For Exam: UTI 11/21/18 18:44 Physical Therapy Evaluation and Treat [CONS] Routine Comment: Reason For Exam: for mobility Referring MD: DONTAE HAYNES 11/23/18 12:28 Consult to Wound/ET Nurse [CONS] Routine Reason For Exam: wound eval Left foot bottom Primary care physician: IMPLEMENTATION DIRECTOR Hospitalization Reason for admission: cardiac arrest/respiratory failure Condition: Critical Hospital course: 42 YO Male with ESRD on HD, HTN, DM, PAD, Nicotine Dependence presents to ED for evaluation. As per family, the patient was in his usual state of health around bedtime at 2200hrs. Pt was found down and unresponsive by family the next morning. EMS notified, and upon arrival the patient was found to be in distress. Pt Intubated and placed on vent support. Pt transported to [facility]. Pt seen and evaluated in ED and found to have STEMI, Acute on Chronic Renal Failure, Acidosis, Acute Respiratory Failure, Sepsis, and DKA. Pt experienced cardiac a rrest in ED and CPR was done per ACLS protocol with return of perfusing cardiac rhythm. Pt found to have signs of Anoxic Brain Injury. Pt admitted to ICU and initiated on sepsis protocol and treated with IVF resuscitation therapy, IV pressor support. Pt has poor prognosis. Neurology , Cardiology ,pulm and Nephrology are following,receiving HD per nephrology, Vent dependent with poor prognosis, s/p Trach and PEG and placement 11/19. LTACH placement today Final diagnosis; and management --S/P Cardiopulmonary Arrest- Possibly from renal failure with severe DKA and underlying CHF 2d echo showed Ef 30-35% on ventilatory support, nebulizers, supportive care --Anoxic Encephalopathy; from cardiac arrest supportive care, Poor prognosis, EEG showed diffuse slowing and no seizure activity MRI brain; bilateral acute basal ganglia infarcts Bilateral acute frontal lobe white matter infarcts Bilateral acute parietal white matter infarcts Neurology following --Acute Hypoxic Respiratory failure; vent dependent Unable to wean, status post trach and PEG 11/19/18 Continue trach and PEG care, PEG feeds per protocol --Febrile illness with UTI and sepsis, not POA Intermittent fevers, low-grade fever last 24 hours MAXIMUM TEMPERATURE 100.4 on cefepime, I'll be following, follow cultures and supportive care UA showed pyuria with urine culture growing Pseudomonas. Chest x-ray negative for pneumonia. 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 closely monitor platelets, --Seizure Disorder; seizure precautions cont Antiepileptic medications, neurology following, EEG findings noted --Acute Kidney Injury secondary to ischemic ATN from hypotension, Hemodialysis per schedule nephrology following --Cardiogenic Shock; improved --Anemia of chronic disease; monitor H&H and transfuse as needed, check stool for occult blood --Severe malnutrition/nutritional supplements, nutrition consult; --PAD; no statin for abnormal liver function --Shock Liver; with transaminitis, trending down, cont to monitor, supportive care --CHF with EF 30-35% - monitor volume status, cardiology following --DVT prophylaxis; SCDs --Full CODE STATUS Very poor prognosis. Plan of care is reviewed with the patient's mother in detail She has numerous questions and concerns, addressed all of them Patient remains critically ill, mother and other family members are aware Possible LTAC placement today when arrangements are made Plan of care is reviewed for the patient'sand case management Critical care time 33 minutes Disposition: [id number] MEDICARE CERT [facility] Time spent for discharge: 35 min Core Measure Documentation - Palliative Care Palliative Care/ Comfort Measures: Not Applicable - Core Measures Any of the following diagnoses?: none Exam - Constitutional Vitals: Temp Pulse Resp BP Pulse Ox 99.5 F 93 H 32 H 121/64 100 11/25/18 12:00 11/25/18 13:00 11/25/18 13:00 11/25/18 13:00 11/25/18 13:00 Plan Additional Instructions: The patient is being transferred to [facility] LTAC facility today. HD per schedule. Cont Vent support,Trach care, PEG feeds Follow up with: PRIMARY CARE, [Primary Care Provider] - 3-5 Days Prescriptions: hydrALAZINE [Apresoline TAB] 50 mg PO Q8HR 30 Days tab Apixaban [Eliquis] 2.5 mg PO BID 30 Days tablet Tamsulosin [Flomax] 0.4 mg PO QDAY 30 Days cap Lispro Insulin [HumaLOG] See Protocol SQ ACHS 30 Days vial levETIRAcetam [Keppra] 750 mg PO BID 30 Days udc Insulin Glargine [Lantus] 35 unit SUB-Q BID 30 Days ml Metoprolol [Lopressor TAB] 50 mg PO Q6H 30 Days tablet PANTOPRAZOLE SODIUM (nf) [Protonix GRANULES] 40 mg FEEDTUBE DAILY 30 Days Modafinil [Provigil] 200 mg PO QAM 30 Days tablet
--- NOTE | 2018-11-25 14:13 | Progress Note ---
Assessment and Plan Cultures: 11/06/2018 blood culture: No growth 11/06/2018 urine culture: No growth 11/06/2018 sputum culture: Usual respiratory diana 11/18/2018 blood culture: In process 11/18/2018 urine culture: Pseudomonas sensitive to cefepime Assessment: 42-year-old male with ESRD on hemodialysis, hypertension, diabetes mellitus, peripheral vascular disease, tobacco abuse was brought into the emergency room on 11/06/2018 after he was noted to be unresponsive and was found down by the family. EMS intubated the patient and brought him to the ED. Patient had a cardiac arrest in the emergency room requiring ACLS. Subsequently, he had ROSC. Prolonged hospital stay, concerning for anoxic brain injury, now s/p trach and PEG. 1) Sepsis: still fever, possibly related to UTI +/- ?central fever. UA showed pyuria with urine culture growing Pseudomonas. Chest x-ray today does not suggest any pneumonia. Blood cultures so far have been negative. Repeat CXR negative. 2) Anoxic encephalopathy, status post cardiopulmonary arrest. Repeat CT unspecific 3) ESRD: On dialysis. Renally dose abx. 4) DM, uncontrolled, admitted with DKA 5) Shock liver on admission, now resolved 6) Reactive thrombocytosis 7) UTI due to Pseudomonas: ? suspect bladder retention, bladder scan +350cc s/p straight cath +230cc. Renal US shows medical renal disease and distended bladder with exaggerated thickness. Recs: continue Cefepime 1 gm q24 hrs renally adjusted D4 of 7 repeat bladder scan and if still high then place a ramirez cath - pending agree with brain MRI to eval anoxic encephalopathy monitor fever will follow Joyce Blcakwell MD Infectious Diseases [facility] M [phone] O [phone] Subjective Date of service: 11/25/18 Principal diagnosis: Ac hypoxemic resp failure; DKA; Severe sepsis with shock; ESRD on dialysis Interval history: Remains non verbal noted fever 100.6 ROS unable to obtain Objective - Exam Narrative Exam: General: unresponsive non verbal on CPAP Head, Ears, Nose: Normocephalic, atraumatic. External ears, nose normal Eyes: Conjunctivae/corneas clear. No icterus. No ptosis. Neck: trach + Oral: unable to examine Cardiovascular: S1, S2 normal. Respiratory: b/l rhonchi + GI: Soft; bowel sounds normal. No peritoneal signs. PEG + Musculoskeletal: +herminio pedal edema, no cyanosis. LUE AVF + with thrill. Right arm midline + Skin: right foot intact bulla Hem/Lymphatic: No palpable cervical or supraclavicular nodes. No lymphangitis Psych: no agitation Neurological: unresponsive - Constitutional Vitals: Vital Signs Temp Pulse Resp BP Pulse Ox 99.5 F 93 H 32 H 121/64 100 11/25/18 12:00 11/25/18 13:00 11/25/18 13:00 11/25/18 13:00 11/25/18 13:00 Temperature -Last 24 Hours Temperature 99.5 F Temperature 98.6 F Temperature 98.6 F Temperature 100.4 F Temperature 100.6 F Temperature 99.9 F Temperature 98.8 F Temperature 99.0 F - Labs CBC & Chem 7: 11/25/18 04:14 11/25/18 04:14 Labs: Abnormal lab results 11/24/18 11/24/18 11/24/18 Range/Units 14:34 15:03 15:32 WBC (4.5-11.0) K/mm3 RBC (3.65-5.03) M/mm3 Hgb (11.8-15.2) gm/dl Hct (35.5-45.6) % POC ABG pH 7.503 H (7.35-7.45) POC ABG pO2 146 H (80-105) Chloride (98-107) mmol/L BUN (9-20) mg/dL Creatinine (0.8-1.5) mg/dL Glucose (75-100) mg/dL POC Glucose 193 H 182 H (70-105) Phosphorus (2.5-4.5) mg/dL 11/24/18 11/24/18 11/24/18 Range/Units 16:24 17:30 18:46 WBC (4.5-11.0) K/mm3 RBC (3.65-5.03) M/mm3 Hgb (11.8-15.2) gm/dl Hct (35.5-45.6) % POC ABG pH (7.35-7.45) POC ABG pO2 (80-105) Chloride (98-107) mmol/L BUN (9-20) mg/dL Creatinine (0.8-1.5) mg/dL Glucose (75-100) mg/dL POC Glucose 216 H 207 H 206 H (70-105) Phosphorus (2.5-4.5) mg/dL 11/24/18 11/24/18 11/24/18 Range/Units 20:02 20:59 22:12 WBC (4.5-11.0) K/mm3 RBC (3.65-5.03) M/mm3 Hgb (11.8-15.2) gm/dl Hct (35.5-45.6) % POC ABG pH (7.35-7.45) POC ABG pO2 (80-105) Chloride (98-107) mmol/L BUN (9-20) mg/dL Creatinine (0.8-1.5) mg/dL Glucose (75-100) mg/dL POC Glucose 217 H 243 H 221 H (70-105) Phosphorus (2.5-4.5) mg/dL 11/24/18 11/25/18 11/25/18 Range/Units 23:02 00:02 01:03 WBC (4.5-11.0) K/mm3 RBC (3.65-5.03) M/mm3 Hgb (11.8-15.2) gm/dl Hct (35.5-45.6) % POC ABG pH (7.35-7.45) POC ABG pO2 (80-105) Chloride (98-107) mmol/L BUN (9-20) mg/dL Creatinine (0.8-1.5) mg/dL Glucose (75-100) mg/dL POC Glucose 180 H 133 H 120 H (70-105) Phosphorus (2.5-4.5) mg/dL 11/25/18 11/25/18 11/25/18 Range/Units 02:13 03:12 04:11 WBC (4.5-11.0) K/mm3 RBC (3.65-5.03) M/mm3 Hgb (11.8-15.2) gm/dl Hct (35.5-45.6) % POC ABG pH (7.35-7.45) POC ABG pO2 (80-105) Chloride (98-107) mmol/L BUN (9-20) mg/dL Creatinine (0.8-1.5) mg/dL Glucose (75-100) mg/dL POC Glucose 133 H 160 H 161 H (70-105) Phosphorus (2.5-4.5) mg/dL 11/25/18 11/25/18 11/25/18 Range/Units 04:14 04:14 05:17 WBC 12.1 H (4.5-11.0) K/mm3 RBC 2.53 L (3.65-5.03) M/mm3 Hgb 7.8 L (11.8-15.2) gm/dl Hct 23.8 L (35.5-45.6) % POC ABG pH (7.35-7.45) POC ABG pO2 (80-105) Chloride 93.6 L (98-107) mmol/L BUN 53 H (9-20) mg/dL Creatinine 7.3 H (0.8-1.5) mg/dL Glucose 135 H (75-100) mg/dL POC Glucose 178 H (70-105) Phosphorus 5.30 H (2.5-4.5) mg/dL 11/25/18 11/25/18 11/25/18 Range/Units 06:02 07:08 08:11 WBC (4.5-11.0) K/mm3 RBC (3.65-5.03) M/mm3 Hgb (11.8-15.2) gm/dl Hct (35.5-45.6) % POC ABG pH (7.35-7.45) POC ABG pO2 (80-105) Chloride (98-107) mmol/L BUN (9-20) mg/dL Creatinine (0.8-1.5) mg/dL Glucose (75-100) mg/dL POC Glucose 146 H 159 H 150 H (70-105) Phosphorus (2.5-4.5) mg/dL 11/25/18 11/25/18 11/25/18 Range/Units 09:14 10:10 11:13 WBC (4.5-11.0) K/mm3 RBC (3.65-5.03) M/mm3 Hgb (11.8-15.2) gm/dl Hct (35.5-45.6) % POC ABG pH (7.35-7.45) POC ABG pO2 (80-105) Chloride (98-107) mmol/L BUN (9-20) mg/dL Creatinine (0.8-1.5) mg/dL Glucose (75-100) mg/dL POC Glucose 162 H 168 H 152 H (70-105) Phosphorus (2.5-4.5) mg/dL 11/25/18 11/25/18 11/25/18 Range/Units 12:24 13:06 14:16 WBC (4.5-11.0) K/mm3 RBC (3.65-5.03) M/mm3 Hgb (11.8-15.2) gm/dl Hct (35.5-45.6) % POC ABG pH (7.35-7.45) POC ABG pO2 (80-105) Chloride (98-107) mmol/L BUN (9-20) mg/dL Creatinine (0.8-1.5) mg/dL Glucose (75-100) mg/dL POC Glucose 142 H 141 H 147 H (70-105) Phosphorus (2.5-4.5) mg/dL
--- NOTE | 2018-11-25 14:15 | Progress Note ---
Assessment and Plan Acute hypoxemic respiratory failure, on mechanical ventilator support. Diabetic ketoacidosis. Severe metabolic acidosis. Severe sepsis with shock. Acute encephalopathy that appears to be toxic metabolic. End-stage renal disease, on dialysis. Hyperkalemia at presentation. Diabetes. Peripheral vascular disease. Anemia that is macrocytic. Elevated serum transaminases, likely representing shock liver. Mild hyponatremia, pseudohyponatremia actually. Lactic acidosis. (AMS remains a rate limiting factor to safe extubation and he will likely need a tracheostomy) - continue daytime t-piece trials as tolerated - neurology re-evaluation noted - MRI brain pending - continue daily SAT's and SBT assessment as tolerated - prn sedation target for RASS 0 to -1 - continue to wean supplemental oxygen to keep O2 sats > 90% - EEG Impression noted re: [Anoxic brain injury with interval improvement of clinical status. I have reviewed the EEG which does not show any epileptiform activity or seizure activity. The background rhythm is a little slow other than that EEG is normal] - continue Provigil - continue baclofen for myoclonic activity / hiccups - follow clinically off AB's for now ) - continue bronchodilators with pulmonary hygiene per RT - Lung protective strategies - VAP bundle addressed - continue HD/UF as tolerated for toxin and volume clearance - neurology evaluation ongoing - Monitor renal indices closely - continue to avoid nephrotoxic agents, adjust all medications for CrCL - Strict intake and output monitoring - continue enteral nutrition as tolerated - continue accuchecks with glycemic control per SSI for target glucose of 140- 180 mg/dL - Maintenance of sleep -wake cycle - Mobility protocol for pressure ulcer prophylaxis - continue GI & VTE prophylaxis - Influenza and pneumonia vaccination per protocol - discharge planning ongoing concurrently ... tentatively to transfer to LTAC today ... care plan discussed at length with mother .... re-evaluate in am & prn PROGNOSIS: GUARDED CONDITION: CRITICAL CODE STATUS: FULL CODE The high probability of a clinically significant, sudden or life-threatening deterioration of the [respiratory, neurology, renal] system(s) required my full and direct attention, intervention and personal management. The aggregate critical care time was [32] minutes without overlap. Time includes spent on; [x] Data Review and interpretation [x] Patient assessment and monitoring of vital signs [x] Documentation [x] Medication orders and management Subjective Date of service: 11/25/18 Principal diagnosis: Ac hypoxemic resp failure; DKA; Severe sepsis with shock; ESRD on dialysis Interval history: Patient is seen today for: Acute hypoxemic respiratory failure on MVS; DKA; Severe metabolic acidosis; Severe sepsis with shock; Acute encephalopathy that appears to be toxic metabolic; ESRD on dialysis; DM II; Peripheral vascular disease. Seen and examined at bedside; 24hour events reviewed; nursing and respiratory care staff consulted; no adverse overnight events reported to me; remained on MVS overnight; on T-piece trial now and tolerating well; seen by neurology and MRI brain ordered; No N/V/F/C but AMS is persistent Objective Vital Signs - 12hr 11/25/18 11/25/18 11/25/18 02:30 03:00 03:30 Temperature Pulse Rate 102 H 102 H 98 H Pulse Rate [ From Monitor] Respiratory 20 18 20 Rate Blood Pressure 131/74 119/70 111/62 O2 Sat by Pulse 100 100 100 Oximetry O2 Sat by Pulse Oximetry [ Assessment] 11/25/18 11/25/18 11/25/18 03:43 03:45 03:46 Temperature Pulse Rate 102 H Pulse Rate [ From Monitor] Respiratory Rate Blood Pressure 115/66 O2 Sat by Pulse 100 100 Oximetry O2 Sat by Pulse 100 Oximetry [ Assessment] 11/25/18 11/25/18 11/25/18 04:00 04:30 05:00 Temperature 100.4 F H Pulse Rate 101 H 100 H 99 H Pulse Rate [ From Monitor] Respiratory 20 20 20 Rate Blood Pressure 120/65 112/70 114/67 O2 Sat by Pulse 100 99 100 Oximetry O2 Sat by Pulse Oximetry [ Assessment] 11/25/18 11/25/18 11/25/18 05:30 05:32 06:00 Temperature Pulse Rate 100 H 102 H 105 H Pulse Rate [ From Monitor] Respiratory 20 19 Rate Blood Pressure 107/67 107/67 164/80 O2 Sat by Pulse 100 100 Oximetry O2 Sat by Pulse Oximetry [ Assessment] 11/25/18 11/25/18 11/25/18 06:30 07:00 07:30 Temperature Pulse Rate 101 H 100 H 107 H Pulse Rate [ From Monitor] Respiratory 20 20 11 L Rate Blood Pressure 122/64 96/46 128/74 O2 Sat by Pulse 100 100 100 Oximetry O2 Sat by Pulse Oximetry [ Assessment] 11/25/18 11/25/18 11/25/18 08:00 08:30 08:43 Temperature 98.6 F Pulse Rate 102 H 109 H 100 H Pulse Rate [ 106 H From Monitor] Respiratory 20 21 Rate Blood Pressure 109/59 134/73 134/73 O2 Sat by Pulse 100 100 100 Oximetry O2 Sat by Pulse 100 Oximetry [ Assessment] 11/25/18 11/25/18 11/25/18 09:00 09:30 10:00 Temperature Pulse Rate 104 H 105 H 103 H Pulse Rate [ From Monitor] Respiratory 35 H 37 H 37 H Rate Blood Pressure 130/69 137/73 127/66 O2 Sat by Pulse 100 100 100 Oximetry O2 Sat by Pulse Oximetry [ Assessment] 11/25/18 11/25/18 11/25/18 10:16 10:30 11:00 Temperature Pulse Rate 96 H 91 H Pulse Rate [ From Monitor] Respiratory 35 H Rate Blood Pressure 130/71 138/86 121/64 O2 Sat by Pulse 100 100 Oximetry O2 Sat by Pulse Oximetry [ Assessment] 11/25/18 11/25/18 11/25/18 11:30 12:00 12:30 Temperature 99.5 F Pulse Rate 91 H 101 H 94 H Pulse Rate [ 101 H From Monitor] Respiratory 31 H 32 H 34 H Rate Blood Pressure 125/64 146/84 125/65 O2 Sat by Pulse 100 100 100 Oximetry O2 Sat by Pulse Oximetry [ Assessment] 11/25/18 11/25/18 12:48 13:00 Temperature Pulse Rate 93 H Pulse Rate [ From Monitor] Respiratory 32 H Rate Blood Pressure 121/64 O2 Sat by Pulse 100 100 Oximetry O2 Sat by Pulse Oximetry [ Assessment] Constitutional: appears uncomfortable, other (middle aged AAM, normocephalic and atraumatic on MVS) Eyes: non-icteric ENT: oropharynx moist, other (s/p tracheostomy) Neck: supple, no lymphadenopathy, no JVD Effort: mildly labored Ascultation: Bilateral: clear, diminished breath sounds, rhonchi Percussion: Bilateral: not dull Cardiovascular: regular rate and rhythm Gastrointestinal: normoactive bowel sounds, soft, non-tender, non-distended Integumentary: rash Extremities: no cyanosis, pulses normal, no ischemia or petechiae, edema Neurologic: pupils equal and round (minimally reactive), unable to assess, other (incresased spontaneous eye opening) Psychiatric: other (unable to assess re: AMS) CBC and BMP: 11/25/18 04:14 11/25/18 04:14 ABG, PT/INR, D-dimer: ABG POC ABG pH 7.503 (7.35-7.45) H 11/24/18 15:03 POC ABG pCO2 40.6 (35-45) 11/24/18 15:03 POC ABG pO2 146 (80-105) H 11/24/18 15:03 POC ABG HCO3 31.9 (22-26 mml/L) 11/24/18 15:03 POC ABG Total CO2 33 (23-27mmol/L) 11/24/18 15:03 POC ABG O2 Sat 99 11/24/18 15:03 Abnormal lab findings: Abnormal Labs 11/06/18 11/06/18 11/06/18 08:22 09:02 09:02 WBC 20.1 H RBC 3.40 L Hgb 10.5 L Hct MCV 119 H MCHC 26 L RDW 15.7 H Plt Count Lymph % (Auto) [place] % (Auto) Lymph # [place] # Seg Neutrophils % 80.1 H Seg Neuts % (Manual) 76.0 H Lymphocytes % (Manual) 4.0 L Monocytes % (Manual) Nucleated RBC % 1.0 H Seg Neutrophils # 16.1 H Seg Neutrophils # Man 15.3 H Lymphocytes # (Manual) 0.8 L Monocytes # (Manual) POC ABG pH POC ABG pCO2 POC ABG pO2 VBG pH Sodium 129 L Potassium 7.7 H* Chloride 79.7 L Carbon Dioxide 4 L* BUN 93 H Creatinine 7.4 H Glucose 1469 H* POC Glucose > 500 H Hemoglobin A1c Lactic Acid Calcium Phosphorus Magnesium Direct Bilirubin AST 2679 H ALT 1175 H C-Reactive Protein Total Protein 6.1 L Albumin 2.9 L Urine WBC (Auto) Salicylates Acetaminophen Heparin-induced Plt Ab 11/06/18 11/06/18 11/06/18 09:02 09:02 09:02 WBC RBC Hgb Hct MCV MCHC RDW Plt Count Lymph % (Auto) [place] % (Auto) Lymph # [place] # Seg Neutrophils % Seg Neuts % (Manual) Lymphocytes % (Manual) Monocytes % (Manual) Nucleated RBC % Seg Neutrophils # Seg Neutrophils # Man Lymphocytes # (Manual) Monocytes # (Manual) POC ABG pH POC ABG pCO2 POC ABG pO2 VBG pH Sodium Potassium Chloride Carbon Dioxide BUN Creatinine Glucose POC Glucose Hemoglobin A1c Lactic Acid 9.40 H* Calcium Phosphorus Magnesium Direct Bilirubin AST ALT C-Reactive Protein Total Protein Albumin Urine WBC (Auto) Salicylates < 0.3 L Acetaminophen < 5.0 L Heparin-induced Plt Ab 11/06/18 11/06/18 11/06/18 09:03 10:19 10:19 WBC RBC Hgb Hct MCV MCHC RDW Plt Count Lymph % (Auto) [place] % (Auto) Lymph # [place] # Seg Neutrophils % Seg Neuts % (Manual) Lymphocytes % (Manual) Monocytes % (Manual) Nucleated RBC % Seg Neutrophils # Seg Neutrophils # Man Lymphocytes # (Manual) Monocytes # (Manual) POC ABG pH 6.841 L POC ABG pCO2 POC ABG pO2 VBG pH Sodium 131 L Potassium 8.9 H* Chloride 85.3 L Carbon Dioxide 6 L* BUN 90 H Creatinine 7.1 H Glucose 1353 H* POC Glucose Hemoglobin A1c Lactic Acid Calcium 7.8 L Phosphorus 14.50 H Magnesium 2.70 H Direct Bilirubin AST ALT C-Reactive Protein Total Protein Albumin Urine WBC (Auto) Salicylates Acetaminophen Heparin-induced Plt Ab 11/06/18 11/06/18 11/06/18 12:07 13:22 13:22 WBC RBC Hgb Hct MCV MCHC RDW Plt Count Lymph % (Auto) [place] % (Auto) Lymph # [place] # Seg Neutrophils % Seg Neuts % (Manual) Lymphocytes % (Manual) Monocytes % (Manual) Nucleated RBC % Seg Neutrophils # Seg Neutrophils # Man Lymphocytes # (Manual) Monocytes # (Manual) POC ABG pH POC ABG pCO2 POC ABG pO2 VBG pH 6.982 L* Sodium 135 L Potassium 7.0 H* D Chloride 88.4 L Carbon Dioxide 5 L* BUN 89 H Creatinine 7.2 H Glucose 1326 H* POC Glucose Hemoglobin A1c Lactic Acid 8.50 H* Calcium Phosphorus Magnesium Direct Bilirubin AST ALT C-Reactive Protein Total Protein Albumin Urine WBC (Auto) Salicylates Acetaminophen Heparin-induced Plt Ab 11/06/18 11/06/18 11/06/18 14:15 14:15 15:21 WBC RBC Hgb Hct MCV MCHC RDW Plt Count Lymph % (Auto) [place] % (Auto) Lymph # [place] # Seg Neutrophils % Seg Neuts % (Manual) Lymphocytes % (Manual) Monocytes % (Manual) Nucleated RBC % Seg Neutrophils # Seg Neutrophils # Man Lymphocytes # (Manual) Monocytes # (Manual) POC ABG pH POC ABG pCO2 POC ABG pO2 VBG pH Sodium Potassium 6.6 H* 6.0 H Chloride 95.3 L 93.3 L Carbon Dioxide 4 L* 6 L* BUN 83 H 91 H Creatinine 6.9 H 7.3 H Glucose 1205 H* 1174 H* POC Glucose Hemoglobin A1c Lactic Acid Calcium 8.2 L Phosphorus 13.00 H Magnesium 2.60 H Direct Bilirubin AST ALT C-Reactive Protein Total Protein Albumin Urine WBC (Auto) Salicylates Acetaminophen Heparin-induced Plt Ab 11/06/18 11/06/18 11/06/18 15:21 16:14 16:33 WBC RBC Hgb Hct MCV MCHC RDW Plt Count Lymph % (Auto) [place] % (Auto) Lymph # [place] # Seg Neutrophils % Seg Neuts % (Manual) Lymphocytes % (Manual) Monocytes % (Manual) Nucleated RBC % Seg Neutrophils # Seg Neutrophils # Man Lymphocytes # (Manual) Monocytes # (Manual) POC ABG pH 7.004 L POC ABG pCO2 33.0 L POC ABG pO2 178 H VBG pH Sodium Potassium Chloride Carbon Dioxide BUN Creatinine Glucose POC Glucose > 500 H Hemoglobin A1c Lactic Acid 7.60 H* Calcium Phosphorus Magnesium Direct Bilirubin AST ALT C-Reactive Protein Total Protein Albumin Urine WBC (Auto) Salicylates Acetaminophen Heparin-induced Plt Ab 11/06/18 11/06/18 11/06/18 17:34 19:30 19:30 WBC RBC Hgb Hct MCV MCHC RDW Plt Count Lymph % (Auto) [place] % (Auto) Lymph # [place] # Seg Neutrophils % Seg Neuts % (Manual) Lymphocytes % (Manual) Monocytes % (Manual) Nucleated RBC % Seg Neutrophils # Seg Neutrophils # Man Lymphocytes # (Manual) Monocytes # (Manual) POC ABG pH POC ABG pCO2 POC ABG pO2 VBG pH Sodium Potassium 5.5 H Chloride 97.4 L 97.7 L Carbon Dioxide 10 L 11 L BUN 88 H 87 H Creatinine 7.5 H 7.6 H Glucose 1054 H* 954 H* POC Glucose Hemoglobin A1c Lactic Acid Calcium 7.7 L 7.4 L Phosphorus Magnesium Direct Bilirubin AST ALT C-Reactive Protein 1.90 H Total Protein Albumin Urine WBC (Auto) Salicylates Acetaminophen Heparin-induced Plt Ab 11/06/18 11/06/18 11/06/18 20:31 20:40 20:40 WBC RBC Hgb Hct MCV MCHC RDW Plt Count Lymph % (Auto) [place] % (Auto) Lymph # [place] # Seg Neutrophils % Seg Neuts % (Manual) Lymphocytes % (Manual) Monocytes % (Manual) Nucleated RBC % Seg Neutrophils # Seg Neutrophils # Man Lymphocytes # (Manual) Monocytes # (Manual) POC ABG pH 7.245 L POC ABG pCO2 POC ABG pO2 132 H VBG pH Sodium Potassium Chloride Carbon Dioxide BUN Creatinine Glucose 907 H* POC Glucose Hemoglobin A1c Lactic Acid 4.40 H* Calcium Phosphorus Magnesium Direct Bilirubin AST ALT C-Reactive Protein Total Protein Albumin Urine WBC (Auto) Salicylates Acetaminophen Heparin-induced Plt Ab 11/06/18 11/06/18 11/06/18 22:05 22:40 23:35 WBC RBC Hgb Hct MCV MCHC RDW Plt Count Lymph % (Auto) [place] % (Auto) Lymph # [place] # Seg Neutrophils % Seg Neuts % (Manual) Lymphocytes % (Manual) Monocytes % (Manual) Nucleated RBC % Seg Neutrophils # Seg Neutrophils # Man Lymphocytes # (Manual) Monocytes # (Manual) POC ABG pH POC ABG pCO2 POC ABG pO2 VBG pH Sodium Potassium Chloride Carbon Dioxide 13 L BUN 86 H Creatinine 7.8 H Glucose 822 H* 726 H* POC Glucose Hemoglobin A1c Lactic Acid 3.40 H* Calcium 7.5 L Phosphorus Magnesium Direct Bilirubin AST ALT C-Reactive Protein Total Protein Albumin Urine WBC (Auto) Salicylates Acetaminophen Heparin-induced Plt Ab 11/07/18 11/07/18 11/07/18 01:25 01:26 03:15 WBC RBC Hgb Hct MCV MCHC RDW Plt Count Lymph % (Auto) [place] % (Auto) Lymph # [place] # Seg Neutrophils % Seg Neuts % (Manual) Lymphocytes % (Manual) Monocytes % (Manual) Nucleated RBC % Seg Neutrophils # Seg Neutrophils # Man Lymphocytes # (Manual) Monocytes # (Manual) POC ABG pH POC ABG pCO2 POC ABG pO2 VBG pH Sodium Potassium Chloride Carbon Dioxide BUN Creatinine Glucose 602 H* POC Glucose > 500 H > 500 H Hemoglobin A1c Lactic Acid Calcium Phosphorus Magnesium Direct Bilirubin AST ALT C-Reactive Protein Total Protein Albumin Urine WBC (Auto) Salicylates Acetaminophen Heparin-induced Plt Ab 11/07/18 11/07/18 11/07/18 03:20 04:32 04:47 WBC RBC Hgb Hct MCV MCHC RDW Plt Count Lymph % (Auto) [place] % (Auto) Lymph # [place] # Seg Neutrophils % Seg Neuts % (Manual) Lymphocytes % (Manual) Monocytes % (Manual) Nucleated RBC % Seg Neutrophils # Seg Neutrophils # Man Lymphocytes # (Manual) Monocytes # (Manual) POC ABG pH POC ABG pCO2 30.3 L POC ABG pO2 153 H VBG pH Sodium 149 H Potassium Chloride Carbon Dioxide 16 L BUN 86 H Creatinine 8.3 H Glucose 499.2 H POC Glucose 360 H Hemoglobin A1c Lactic Acid Calcium 7.6 L Phosphorus Magnesium Direct Bilirubin AST ALT C-Reactive Protein Total Protein Albumin Urine WBC (Auto) Salicylates Acetaminophen Heparin-induced Plt Ab 11/07/18 11/07/18 11/07/18 05:26 06:35 06:36 WBC RBC Hgb Hct MCV MCHC RDW Plt Count Lymph % (Auto) [place] % (Auto) Lymph # [place] # Seg Neutrophils % Seg Neuts % (Manual) Lymphocytes % (Manual) Monocytes % (Manual) Nucleated RBC % Seg Neutrophils # Seg Neutrophils # Man Lymphocytes # (Manual) Monocytes # (Manual) POC ABG pH POC ABG pCO2 POC ABG pO2 VBG pH Sodium 153 H Potassium 3.2 L Chloride 109.7 H Carbon Dioxide BUN 84 H Creatinine 8.6 H Glucose 249 H POC Glucose 341 H 274 H Hemoglobin A1c Lactic Acid Calcium 7.6 L Phosphorus Magnesium Direct Bilirubin AST ALT C-Reactive Protein Total Protein Albumin Urine WBC (Auto) Salicylates Acetaminophen Heparin-induced Plt Ab 11/07/18 11/07/18 11/07/18 07:33 09:00 09:52 WBC RBC Hgb Hct MCV MCHC RDW Plt Count Lymph % (Auto) [place] % (Auto) Lymph # [place] # Seg Neutrophils % Seg Neuts % (Manual) Lymphocytes % (Manual) Monocytes % (Manual) Nucleated RBC % Seg Neutrophils # Seg Neutrophils # Man Lymphocytes # (Manual) Monocytes # (Manual) POC ABG pH POC ABG pCO2 POC ABG pO2 VBG pH Sodium Potassium Chloride Carbon Dioxide BUN Creatinine Glucose POC Glucose 243 H 182 H 227 H Hemoglobin A1c Lactic Acid Calcium Phosphorus Magnesium Direct Bilirubin AST ALT C-Reactive Protein Total Protein Albumin Urine WBC (Auto) Salicylates Acetaminophen Heparin-induced Plt Ab 11/07/18 11/07/18 11/07/18 10:50 10:50 10:50 WBC 11.3 H RBC 2.85 L Hgb 8.7 L Hct 25.3 L D MCV MCHC RDW Plt Count Lymph % (Auto) 9.7 L [place] % (Auto) Lymph # 1.1 L [place] # Seg Neutrophils % 83.3 H Seg Neuts % (Manual) Lymphocytes % (Manual) Monocytes % (Manual) Nucleated RBC % Seg Neutrophils # 9.4 H Seg Neutrophils # Man Lymphocytes # (Manual) Monocytes # (Manual) POC ABG pH POC ABG pCO2 POC ABG pO2 VBG pH Sodium 154 H Potassium 3.2 L Chloride 110.2 H Carbon Dioxide BUN 82 H Creatinine 8.3 H Glucose 186 H POC Glucose 200 H Hemoglobin A1c Lactic Acid Calcium 7.3 L Phosphorus Magnesium Direct Bilirubin AST ALT C-Reactive Protein Total Protein Albumin Urine WBC (Auto) Salicylates Acetaminophen Heparin-induced Plt Ab 11/07/18 11/07/18 11/07/18 12:00 12:05 13:13 WBC RBC Hgb Hct MCV MCHC RDW Plt Count Lymph % (Auto) [place] % (Auto) Lymph # [place] # Seg Neutrophils % Seg Neuts % (Manual) Lymphocytes % (Manual) Monocytes % (Manual) Nucleated RBC % Seg Neutrophils # Seg Neutrophils # Man Lymphocytes # (Manual) Monocytes # (Manual) POC ABG pH POC ABG pCO2 POC ABG pO2 VBG pH Sodium Potassium Chloride Carbon Dioxide BUN Creatinine Glucose POC Glucose 179 H 190 H Hemoglobin A1c Lactic Acid 2.50 H* Calcium Phosphorus Magnesium Direct Bilirubin AST ALT C-Reactive Protein Total Protein Albumin Urine WBC (Auto) Salicylates Acetaminophen Heparin-induced Plt Ab 11/07/18 11/07/18 11/07/18 13:20 14:05 15:18 WBC RBC Hgb Hct MCV MCHC RDW Plt Count Lymph % (Auto) [place] % (Auto) Lymph # [place] # Seg Neutrophils % Seg Neuts % (Manual) Lymphocytes % (Manual) Monocytes % (Manual) Nucleated RBC % Seg Neutrophils # Seg Neutrophils # Man Lymphocytes # (Manual) Monocytes # (Manual) POC ABG pH POC ABG pCO2 POC ABG pO2 VBG pH Sodium Potassium 3.1 L Chloride Carbon Dioxide BUN 50 H Creatinine 5.0 H Glucose 176 H POC Glucose 189 H 215 H Hemoglobin A1c Lactic Acid Calcium 7.4 L Phosphorus Magnesium Direct Bilirubin AST ALT C-Reactive Protein Total Protein Albumin Urine WBC (Auto) Salicylates Acetaminophen Heparin-induced Plt Ab 11/07/18 11/07/18 11/07/18 16:25 17:37 23:23 WBC RBC Hgb Hct MCV MCHC RDW Plt Count Lymph % (Auto) [place] % (Auto) Lymph # [place] # Seg Neutrophils % Seg Neuts % (Manual) Lymphocytes % (Manual) Monocytes % (Manual) Nucleated RBC % Seg Neutrophils # Seg Neutrophils # Man Lymphocytes # (Manual) Monocytes # (Manual) POC ABG pH POC ABG pCO2 POC ABG pO2 VBG pH Sodium Potassium Chloride Carbon Dioxide BUN Creatinine Glucose POC Glucose 180 H 215 H 234 H Hemoglobin A1c Lactic Acid Calcium Phosphorus Magnesium Direct Bilirubin AST ALT C-Reactive Protein Total Protein Albumin Urine WBC (Auto) Salicylates Acetaminophen Heparin-induced Plt Ab 11/08/18 11/08/18 11/08/18 04:17 04:23 04:23 WBC RBC 2.98 L Hgb 9.3 L Hct 26.7 L MCV MCHC 35 H RDW Plt Count 130 L Lymph % (Auto) [place] % (Auto) Lymph # [place] # Seg Neutrophils % 80.3 H Seg Neuts % (Manual) Lymphocytes % (Manual) Monocytes % (Manual) Nucleated RBC % Seg Neutrophils # 7.8 H Seg Neutrophils # Man Lymphocytes # (Manual) Monocytes # (Manual) POC ABG pH 7.520 H POC ABG pCO2 POC ABG pO2 111 H VBG pH Sodium Potassium 3.0 L Chloride Carbon Dioxide BUN 44 H Creatinine 6.3 H Glucose 245 H POC Glucose Hemoglobin A1c Lactic Acid Calcium 7.3 L Phosphorus Magnesium Direct Bilirubin AST ALT C-Reactive Protein Total Protein Albumin Urine WBC (Auto) Salicylates Acetaminophen Heparin-induced Plt Ab 11/08/18 11/08/18 11/08/18 05:19 08:00 08:00 WBC RBC Hgb Hct MCV MCHC RDW Plt Count Lymph % (Auto) [place] % (Auto) Lymph # [place] # Seg Neutrophils % Seg Neuts % (Manual) Lymphocytes % (Manual) Monocytes % (Manual) Nucleated RBC % Seg Neutrophils # Seg Neutrophils # Man Lymphocytes # (Manual) Monocytes # (Manual) POC ABG pH POC ABG pCO2 POC ABG pO2 VBG pH Sodium Potassium Chloride Carbon Dioxide BUN Creatinine Glucose POC Glucose 253 H Hemoglobin A1c Lactic Acid 2.70 H* Calcium Phosphorus Magnesium Direct Bilirubin 0.3 H AST 932 H ALT 582 H C-Reactive Protein Total Protein 5.4 L Albumin 2.6 L Urine WBC (Auto) Salicylates Acetaminophen Heparin-induced Plt Ab 11/08/18 11/08/18 11/08/18 11:36 17:51 21:59 WBC RBC Hgb Hct MCV MCHC RDW Plt Count Lymph % (Auto) [place] % (Auto) Lymph # [place] # Seg Neutrophils % Seg Neuts % (Manual) Lymphocytes % (Manual) Monocytes % (Manual) Nucleated RBC % Seg Neutrophils # Seg Neutrophils # Man Lymphocytes # (Manual) Monocytes # (Manual) POC ABG pH 7.459 H POC ABG pCO2 POC ABG pO2 108 H VBG pH Sodium Potassium Chloride Carbon Dioxide BUN Creatinine Glucose POC Glucose 197 H Hemoglobin A1c Lactic Acid Calcium Phosphorus Magnesium Direct Bilirubin AST ALT C-Reactive Protein Total Protein Albumin Urine WBC (Auto) Salicylates Acetaminophen Heparin-induced Plt Ab Positive H 11/08/18 11/09/18 11/09/18 23:28 00:39 02:20 WBC RBC Hgb Hct MCV MCHC RDW Plt Count Lymph % (Auto) [place] % (Auto) Lymph # [place] # Seg Neutrophils % Seg Neuts % (Manual) Lymphocytes % (Manual) Monocytes % (Manual) Nucleated RBC % Seg Neutrophils # Seg Neutrophils # Man Lymphocytes # (Manual) Monocytes # (Manual) POC ABG pH POC ABG pCO2 POC ABG pO2 VBG pH Sodium Potassium Chloride Carbon Dioxide BUN Creatinine Glucose POC Glucose 418 H 471 H 254 H Hemoglobin A1c Lactic Acid Calcium Phosphorus Magnesium Direct Bilirubin AST ALT C-Reactive Protein Total Protein Albumin Urine WBC (Auto) Salicylates Acetaminophen Heparin-induced Plt Ab 11/09/18 11/09/18 11/09/18 03:48 06:02 06:02 WBC RBC 2.95 L Hgb 9.2 L Hct 26.7 L MCV MCHC RDW Plt Count 101 L Lymph % (Auto) [place] % (Auto) Lymph # [place] # Seg Neutrophils % Seg Neuts % (Manual) Lymphocytes % (Manual) Monocytes % (Manual) Nucleated RBC % Seg Neutrophils # Seg Neutrophils # Man Lymphocytes # (Manual) Monocytes # (Manual) POC ABG pH POC ABG pCO2 POC ABG pO2 108 H VBG pH Sodium 150 H Potassium Chloride 108.3 H Carbon Dioxide BUN 44 H Creatinine 7.7 H Glucose 102 H POC Glucose Hemoglobin A1c Lactic Acid Calcium 7.2 L Phosphorus Magnesium Direct Bilirubin AST 554 H ALT 461 H C-Reactive Protein Total Protein 5.1 L Albumin 2.6 L Urine WBC (Auto) Salicylates Acetaminophen Heparin-induced Plt Ab 11/09/18 11/09/18 11/09/18 17:49 18:49 23:32 WBC RBC Hgb Hct MCV MCHC RDW Plt Count Lymph % (Auto) [place] % (Auto) Lymph # [place] # Seg Neutrophils % Seg Neuts % (Manual) Lymphocytes % (Manual) Monocytes % (Manual) Nucleated RBC % Seg Neutrophils # Seg Neutrophils # Man Lymphocytes # (Manual) Monocytes # (Manual) POC ABG pH POC ABG pCO2 46.2 H POC ABG pO2 VBG pH Sodium Potassium Chloride Carbon Dioxide BUN Creatinine Glucose POC Glucose 184 H 150 H Hemoglobin A1c Lactic Acid Calcium Phosphorus Magnesium Direct Bilirubin AST ALT C-Reactive Protein Total Protein Albumin Urine WBC (Auto) Salicylates Acetaminophen Heparin-induced Plt Ab 11/10/18 11/10/18 11/10/18 02:52 05:00 05:00 WBC RBC 2.95 L Hgb 8.9 L Hct 26.6 L MCV MCHC RDW Plt Count 100 L Lymph % (Auto) [place] % (Auto) Lymph # [place] # Seg Neutrophils % Seg Neuts % (Manual) Lymphocytes % (Manual) Monocytes % (Manual) 8.0 H Nucleated RBC % Seg Neutrophils # Seg Neutrophils # Man Lymphocytes # (Manual) Monocytes # (Manual) POC ABG pH POC ABG pCO2 POC ABG pO2 VBG pH Sodium Potassium Chloride Carbon Dioxide BUN 33 H Creatinine 6.8 H Glucose 251 H POC Glucose 186 H Hemoglobin A1c Lactic Acid Calcium 7.3 L Phosphorus Magnesium Direct Bilirubin AST ALT C-Reactive Protein Total Protein Albumin Urine WBC (Auto) Salicylates Acetaminophen Heparin-induced Plt Ab 11/10/18 11/10/18 11/10/18 05:16 11:47 17:32 WBC RBC Hgb Hct MCV MCHC RDW Plt Count Lymph % (Auto) [place] % (Auto) Lymph # [place] # Seg Neutrophils % Seg Neuts % (Manual) Lymphocytes % (Manual) Monocytes % (Manual) Nucleated RBC % Seg Neutrophils # Seg Neutrophils # Man Lymphocytes # (Manual) Monocytes # (Manual) POC ABG pH POC ABG pCO2 POC ABG pO2 VBG pH Sodium Potassium Chloride Carbon Dioxide BUN Creatinine Glucose POC Glucose 242 H 261 H 194 H Hemoglobin A1c Lactic Acid Calcium Phosphorus Magnesium Direct Bilirubin AST ALT C-Reactive Protein Total Protein Albumin Urine WBC (Auto) Salicylates Acetaminophen Heparin-induced Plt Ab 11/10/18 11/11/18 11/11/18 23:39 00:26 04:24 WBC RBC 2.98 L Hgb 9.1 L Hct 27.4 L MCV MCHC RDW Plt Count 114 L Lymph % (Auto) [place] % (Auto) Lymph # [place] # Seg Neutrophils % Seg Neuts % (Manual) Lymphocytes % (Manual) Monocytes % (Manual) 10.0 H Nucleated RBC % Seg Neutrophils # Seg Neutrophils # Man Lymphocytes # (Manual) Monocytes # (Manual) 1.0 H POC ABG pH POC ABG pCO2 POC ABG pO2 VBG pH Sodium Potassium Chloride Carbon Dioxide BUN Creatinine Glucose POC Glucose 60 L 124 H Hemoglobin A1c Lactic Acid Calcium Phosphorus Magnesium Direct Bilirubin AST ALT C-Reactive Protein Total Protein Albumin Urine WBC (Auto) Salicylates Acetaminophen Heparin-induced Plt Ab 11/11/18 11/11/18 11/11/18 04:24 05:27 05:31 WBC RBC Hgb Hct MCV MCHC RDW Plt Count Lymph % (Auto) [place] % (Auto) Lymph # [place] # Seg Neutrophils % Seg Neuts % (Manual) Lymphocytes % (Manual) Monocytes % (Manual) Nucleated RBC % Seg Neutrophils # Seg Neutrophils # Man Lymphocytes # (Manual) Monocytes # (Manual) POC ABG pH POC ABG pCO2 48.8 H POC ABG pO2 109 H VBG pH Sodium Potassium Chloride Carbon Dioxide BUN 23 H Creatinine 5.5 H Glucose 147 H POC Glucose 172 H Hemoglobin A1c Lactic Acid Calcium 7.9 L Phosphorus Magnesium Direct Bilirubin AST 152 H ALT 247 H C-Reactive Protein Total Protein Albumin 2.3 L Urine WBC (Auto) Salicylates Acetaminophen Heparin-induced Plt Ab 11/11/18 11/11/18 11/11/18 12:11 17:12 23:41 WBC RBC Hgb Hct MCV MCHC RDW Plt Count Lymph % (Auto) [place] % (Auto) Lymph # [place] # Seg Neutrophils % Seg Neuts % (Manual) Lymphocytes % (Manual) Monocytes % (Manual) Nucleated RBC % Seg Neutrophils # Seg Neutrophils # Man Lymphocytes # (Manual) Monocytes # (Manual) POC ABG pH POC ABG pCO2 POC ABG pO2 VBG pH Sodium Potassium Chloride Carbon Dioxide BUN Creatinine Glucose POC Glucose 343 H 188 H 145 H Hemoglobin A1c Lactic Acid Calcium Phosphorus Magnesium Direct Bilirubin AST ALT C-Reactive Protein Total Protein Albumin Urine WBC (Auto) Salicylates Acetaminophen Heparin-induced Plt Ab 11/12/18 11/12/18 11/12/18 00:11 04:44 04:44 WBC RBC 2.91 L Hgb 9.0 L Hct 26.9 L MCV MCHC RDW Plt Count Lymph % (Auto) 12.7 L [place] % (Auto) 14.9 H Lymph # 0.8 L [place] # 1.0 H Seg Neutrophils % 71.2 H Seg Neuts % (Manual) Lymphocytes % (Manual) Monocytes % (Manual) Nucleated RBC % Seg Neutrophils # Seg Neutrophils # Man Lymphocytes # (Manual) Monocytes # (Manual) POC ABG pH POC ABG pCO2 POC ABG pO2 VBG pH Sodium Potassium Chloride Carbon Dioxide BUN 22 H Creatinine 5.0 H Glucose 288 H POC Glucose 151 H Hemoglobin A1c Lactic Acid Calcium Phosphorus Magnesium Direct Bilirubin AST 88 H ALT 187 H C-Reactive Protein Total Protein Albumin 2.9 L Urine WBC (Auto) Salicylates Acetaminophen Heparin-induced Plt Ab 11/12/18 11/12/18 11/12/18 11:48 12:28 17:13 WBC RBC Hgb Hct MCV MCHC RDW Plt Count Lymph % (Auto) [place] % (Auto) Lymph # [place] # Seg Neutrophils % Seg Neuts % (Manual) Lymphocytes % (Manual) Monocytes % (Manual) Nucleated RBC % Seg Neutrophils # Seg Neutrophils # Man Lymphocytes # (Manual) Monocytes # (Manual) POC ABG pH POC ABG pCO2 POC ABG pO2 VBG pH Sodium Potassium Chloride Carbon Dioxide BUN Creatinine Glucose POC Glucose 414 H 437 H 251 H Hemoglobin A1c Lactic Acid Calcium Phosphorus Magnesium Direct Bilirubin AST ALT C-Reactive Protein Total Protein Albumin Urine WBC (Auto) Salicylates Acetaminophen Heparin-induced Plt Ab 11/13/18 11/13/18 11/13/18 00:43 04:14 04:14 WBC RBC 2.62 L Hgb 8.0 L Hct 24.0 L MCV MCHC RDW Plt Count Lymph % (Auto) [place] % (Auto) 15.8 H Lymph # [place] # 0.9 H Seg Neutrophils % Seg Neuts % (Manual) Lymphocytes % (Manual) Monocytes % (Manual) Nucleated RBC % Seg Neutrophils # Seg Neutrophils # Man Lymphocytes # (Manual) Monocytes # (Manual) POC ABG pH POC ABG pCO2 POC ABG pO2 VBG pH Sodium Potassium Chloride Carbon Dioxide BUN 32 H Creatinine 6.9 H Glucose 190 H POC Glucose 149 H Hemoglobin A1c Lactic Acid Calcium Phosphorus Magnesium Direct Bilirubin AST ALT C-Reactive Protein Total Protein Albumin Urine WBC (Auto) Salicylates Acetaminophen Heparin-induced Plt Ab 11/13/18 11/13/18 11/13/18 05:53 10:40 12:05 WBC RBC Hgb Hct MCV MCHC RDW Plt Count Lymph % (Auto) [place] % (Auto) Lymph # [place] # Seg Neutrophils % Seg Neuts % (Manual) Lymphocytes % (Manual) Monocytes % (Manual) Nucleated RBC % Seg Neutrophils # Seg Neutrophils # Man Lymphocytes # (Manual) Monocytes # (Manual) POC ABG pH POC ABG pCO2 POC ABG pO2 VBG pH Sodium Potassium Chloride Carbon Dioxide BUN Creatinine Glucose POC Glucose 270 H 405 H 361 H Hemoglobin A1c Lactic Acid Calcium Phosphorus Magnesium Direct Bilirubin AST ALT C-Reactive Protein Total Protein Albumin Urine WBC (Auto) Salicylates Acetaminophen Heparin-induced Plt Ab 11/13/18 11/13/18 11/14/18 18:48 23:55 04:57 WBC RBC 2.75 L Hgb 8.3 L Hct 25.2 L MCV MCHC RDW Plt Count Lymph % (Auto) [place] % (Auto) 15.8 H Lymph # 0.9 L [place] # 0.9 H Seg Neutrophils % Seg Neuts % (Manual) Lymphocytes % (Manual) Monocytes % (Manual) Nucleated RBC % Seg Neutrophils # Seg Neutrophils # Man Lymphocytes # (Manual) Monocytes # (Manual) POC ABG pH POC ABG pCO2 POC ABG pO2 VBG pH Sodium Potassium Chloride Carbon Dioxide BUN Creatinine Glucose POC Glucose 202 H 254 H Hemoglobin A1c Lactic Acid Calcium Phosphorus Magnesium Direct Bilirubin AST ALT C-Reactive Protein Total Protein Albumin Urine WBC (Auto) Salicylates Acetaminophen Heparin-induced Plt Ab 11/14/18 11/14/18 11/14/18 04:57 05:33 11:37 WBC RBC Hgb Hct MCV MCHC RDW Plt Count Lymph % (Auto) [place] % (Auto) Lymph # [place] # Seg Neutrophils % Seg Neuts % (Manual) Lymphocytes % (Manual) Monocytes % (Manual) Nucleated RBC % Seg Neutrophils # Seg Neutrophils # Man Lymphocytes # (Manual) Monocytes # (Manual) POC ABG pH POC ABG pCO2 POC ABG pO2 VBG pH Sodium 136 L Potassium Chloride 96.7 L Carbon Dioxide BUN 25 H Creatinine 5.3 H Glucose 235 H POC Glucose 242 H 272 H Hemoglobin A1c Lactic Acid Calcium Phosphorus Magnesium Direct Bilirubin AST ALT C-Reactive Protein Total Protein Albumin Urine WBC (Auto) Salicylates Acetaminophen Heparin-induced Plt Ab 11/14/18 11/14/18 11/15/18 18:08 23:21 04:50 WBC RBC 2.76 L Hgb 8.5 L Hct 25.4 L MCV MCHC RDW Plt Count Lymph % (Auto) [place] % (Auto) 14.5 H Lymph # [place] # 1.1 H Seg Neutrophils % Seg Neuts % (Manual) Lymphocytes % (Manual) Monocytes % (Manual) Nucleated RBC % Seg Neutrophils # Seg Neutrophils # Man Lymphocytes # (Manual) Monocytes # (Manual) POC ABG pH POC ABG pCO2 POC ABG pO2 VBG pH Sodium Potassium Chloride Carbon Dioxide BUN Creatinine Glucose POC Glucose 166 H 185 H Hemoglobin A1c Lactic Acid Calcium Phosphorus Magnesium Direct Bilirubin AST ALT C-Reactive Protein Total Protein Albumin Urine WBC (Auto) Salicylates Acetaminophen Heparin-induced Plt Ab 11/15/18 11/15/18 11/15/18 04:50 04:50 06:01 WBC RBC Hgb Hct MCV MCHC RDW Plt Count Lymph % (Auto) [place] % (Auto) Lymph # [place] # Seg Neutrophils % Seg Neuts % (Manual) Lymphocytes % (Manual) Monocytes % (Manual) Nucleated RBC % Seg Neutrophils # Seg Neutrophils # Man Lymphocytes # (Manual) Monocytes # (Manual) POC ABG pH POC ABG pCO2 POC ABG pO2 VBG pH Sodium Potassium Chloride 95.2 L Carbon Dioxide BUN 21 H Creatinine 4.8 H Glucose 126 H POC Glucose 150 H Hemoglobin A1c 10.1 H Lactic Acid Calcium Phosphorus Magnesium Direct Bilirubin AST ALT 69 H C-Reactive Protein Total Protein Albumin 2.7 L Urine WBC (Auto) Salicylates Acetaminophen Heparin-induced Plt Ab 11/15/18 11/15/18 11/16/18 13:06 18:08 00:39 WBC RBC Hgb Hct MCV MCHC RDW Plt Count Lymph % (Auto) [place] % (Auto) Lymph # [place] # Seg Neutrophils % Seg Neuts % (Manual) Lymphocytes % (Manual) Monocytes % (Manual) Nucleated RBC % Seg Neutrophils # Seg Neutrophils # Man Lymphocytes # (Manual) Monocytes # (Manual) POC ABG pH POC ABG pCO2 POC ABG pO2 VBG pH Sodium Potassium Chloride Carbon Dioxide BUN Creatinine Glucose POC Glucose 191 H 114 H 147 H Hemoglobin A1c Lactic Acid Calcium Phosphorus Magnesium Direct Bilirubin AST ALT C-Reactive Protein Total Protein Albumin Urine WBC (Auto) Salicylates Acetaminophen Heparin-induced Plt Ab 11/16/18 11/16/18 11/16/18 04:49 04:49 06:09 WBC RBC 2.60 L Hgb 8.0 L Hct 23.4 L MCV MCHC RDW Plt Count Lymph % (Auto) [place] % (Auto) 14.1 H Lymph # [place] # 1.2 H Seg Neutrophils % Seg Neuts % (Manual) Lymphocytes % (Manual) Monocytes % (Manual) Nucleated RBC % Seg Neutrophils # Seg Neutrophils # Man Lymphocytes # (Manual) Monocytes # (Manual) POC ABG pH POC ABG pCO2 POC ABG pO2 VBG pH Sodium 136 L Potassium Chloride 94.1 L Carbon Dioxide BUN 39 H Creatinine 7.4 H D Glucose 243 H POC Glucose 308 H Hemoglobin A1c Lactic Acid Calcium 8.3 L Phosphorus Magnesium Direct Bilirubin AST ALT C-Reactive Protein Total Protein Albumin 2.2 L Urine WBC (Auto) Salicylates Acetaminophen Heparin-induced Plt Ab 11/16/18 11/16/18 11/16/18 08:52 11:53 17:11 WBC RBC Hgb Hct MCV MCHC RDW Plt Count Lymph % (Auto) [place] % (Auto) Lymph # [place] # Seg Neutrophils % Seg Neuts % (Manual) Lymphocytes % (Manual) Monocytes % (Manual) Nucleated RBC % Seg Neutrophils # Seg Neutrophils # Man Lymphocytes # (Manual) Monocytes # (Manual) POC ABG pH POC ABG pCO2 POC ABG pO2 VBG pH Sodium Potassium Chloride Carbon Dioxide BUN Creatinine Glucose POC Glucose 278 H 178 H 173 H Hemoglobin A1c Lactic Acid Calcium Phosphorus Magnesium Direct Bilirubin AST ALT C-Reactive Protein Total Protein Albumin Urine WBC (Auto) Salicylates Acetaminophen Heparin-induced Plt Ab 11/16/18 11/17/18 11/17/18 21:27 00:08 04:45 WBC RBC 2.58 L Hgb 7.9 L Hct 23.5 L MCV MCHC RDW Plt Count Lymph % (Auto) [place] % (Auto) 10.3 H Lymph # [place] # 1.1 H Seg Neutrophils % 74.8 H Seg Neuts % (Manual) Lymphocytes % (Manual) Monocytes % (Manual) Nucleated RBC % Seg Neutrophils # Seg Neutrophils # Man Lymphocytes # (Manual) Monocytes # (Manual) POC ABG pH POC ABG pCO2 POC ABG pO2 VBG pH Sodium Potassium Chloride Carbon Dioxide BUN Creatinine Glucose POC Glucose 206 H 151 H Hemoglobin A1c Lactic Acid Calcium Phosphorus Magnesium Direct Bilirubin AST ALT C-Reactive Protein Total Protein Albumin Urine WBC (Auto) Salicylates Acetaminophen Heparin-induced Plt Ab 11/17/18 11/17/18 11/17/18 04:45 05:12 05:31 WBC RBC Hgb Hct MCV MCHC RDW Plt Count Lymph % (Auto) [place] % (Auto) Lymph # [place] # Seg Neutrophils % Seg Neuts % (Manual) Lymphocytes % (Manual) Monocytes % (Manual) Nucleated RBC % Seg Neutrophils # Seg Neutrophils # Man Lymphocytes # (Manual) Monocytes # (Manual) POC ABG pH 7.481 H POC ABG pCO2 POC ABG pO2 VBG pH Sodium 136 L Potassium Chloride 94.4 L Carbon Dioxide BUN 38 H Creatinine 6.8 H Glucose POC Glucose 111 H Hemoglobin A1c Lactic Acid Calcium Phosphorus Magnesium 2.40 H Direct Bilirubin AST ALT C-Reactive Protein Total Protein Albumin Urine WBC (Auto) Salicylates Acetaminophen Heparin-induced Plt Ab 11/17/18 11/17/18 11/18/18 12:10 23:23 04:24 WBC RBC 2.66 L Hgb 8.2 L Hct 24.0 L MCV MCHC RDW Plt Count 448 H Lymph % (Auto) [place] % (Auto) 12.7 H Lymph # [place] # 1.4 H Seg Neutrophils % 71.9 H Seg Neuts % (Manual) Lymphocytes % (Manual) Monocytes % (Manual) Nucleated RBC % Seg Neutrophils # Seg Neutrophils # Man Lymphocytes # (Manual) Monocytes # (Manual) POC ABG pH POC ABG pCO2 POC ABG pO2 VBG pH Sodium Potassium Chloride Carbon Dioxide BUN Creatinine Glucose POC Glucose 174 H 243 H Hemoglobin A1c Lactic Acid Calcium Phosphorus Magnesium Direct Bilirubin AST ALT C-Reactive Protein Total Protein Albumin Urine WBC (Auto) Salicylates Acetaminophen Heparin-induced Plt Ab 11/18/18 11/18/18 11/18/18 04:24 05:26 11:48 WBC RBC Hgb Hct MCV MCHC RDW Plt Count Lymph % (Auto) [place] % (Auto) Lymph # [place] # Seg Neutrophils % Seg Neuts % (Manual) Lymphocytes % (Manual) Monocytes % (Manual) Nucleated RBC % Seg Neutrophils # Seg Neutrophils # Man Lymphocytes # (Manual) Monocytes # (Manual) POC ABG pH POC ABG pCO2 POC ABG pO2 VBG pH Sodium 136 L Potassium Chloride 93.1 L Carbon Dioxide BUN 30 H Creatinine 5.9 H Glucose 211 H POC Glucose 205 H 162 H Hemoglobin A1c Lactic Acid Calcium Phosphorus Magnesium Direct Bilirubin AST ALT C-Reactive Protein Total Protein Albumin Urine WBC (Auto) Salicylates Acetaminophen Heparin-induced Plt Ab 11/18/18 11/18/18 11/18/18 12:01 19:37 23:21 WBC RBC Hgb Hct MCV MCHC RDW Plt Count Lymph % (Auto) [place] % (Auto) Lymph # [place] # Seg Neutrophils % Seg Neuts % (Manual) Lymphocytes % (Manual) Monocytes % (Manual) Nucleated RBC % Seg Neutrophils # Seg Neutrophils # Man Lymphocytes # (Manual) Monocytes # (Manual) POC ABG pH POC ABG pCO2 POC ABG pO2 VBG pH Sodium Potassium Chloride Carbon Dioxide BUN Creatinine Glucose POC Glucose 207 H 245 H Hemoglobin A1c Lactic Acid Calcium Phosphorus Magnesium Direct Bilirubin AST ALT C-Reactive Protein Total Protein Albumin Urine WBC (Auto) > 182.0 H Salicylates Acetaminophen Heparin-induced Plt Ab 11/19/18 11/19/18 11/19/18 04:24 05:21 12:01 WBC RBC Hgb Hct MCV MCHC RDW Plt Count Lymph % (Auto) [place] % (Auto) Lymph # [place] # Seg Neutrophils % Seg Neuts % (Manual) Lymphocytes % (Manual) Monocytes % (Manual) Nucleated RBC % Seg Neutrophils # Seg Neutrophils # Man Lymphocytes # (Manual) Monocytes # (Manual) POC ABG pH POC ABG pCO2 POC ABG pO2 VBG pH Sodium 134 L Potassium 5.4 H Chloride 89.8 L Carbon Dioxide BUN 54 H Creatinine 8.0 H Glucose 240 H POC Glucose 234 H 179 H Hemoglobin A1c Lactic Acid Calcium Phosphorus Magnesium Direct Bilirubin AST ALT C-Reactive Protein Total Protein Albumin Urine WBC (Auto) Salicylates Acetaminophen Heparin-induced Plt Ab 11/19/18 11/19/18 11/19/18 12:41 17:32 21:53 WBC 13.7 H RBC 2.73 L Hgb 8.3 L Hct 24.9 L MCV MCHC RDW Plt Count 479 H Lymph % (Auto) [place] % (Auto) Lymph # [place] # Seg Neutrophils % Seg Neuts % (Manual) Lymphocytes % (Manual) Monocytes % (Manual) Nucleated RBC % Seg Neutrophils # Seg Neutrophils # Man Lymphocytes # (Manual) Monocytes # (Manual) POC ABG pH POC ABG pCO2 POC ABG pO2 VBG pH Sodium Potassium Chloride Carbon Dioxide BUN Creatinine Glucose POC Glucose 317 H 421 H Hemoglobin A1c Lactic Acid Calcium Phosphorus Magnesium Direct Bilirubin AST ALT C-Reactive Protein Total Protein Albumin Urine WBC (Auto) Salicylates Acetaminophen Heparin-induced Plt Ab 11/19/18 11/20/18 11/20/18 23:16 06:03 10:25 WBC 11.9 H RBC 2.58 L Hgb 7.8 L Hct 23.1 L MCV MCHC RDW Plt Count 444 H Lymph % (Auto) [place] % (Auto) Lymph # [place] # Seg Neutrophils % Seg Neuts % (Manual) Lymphocytes % (Manual) Monocytes % (Manual) Nucleated RBC % Seg Neutrophils # Seg Neutrophils # Man Lymphocytes # (Manual) Monocytes # (Manual) POC ABG pH POC ABG pCO2 POC ABG pO2 VBG pH Sodium Potassium Chloride Carbon Dioxide BUN Creatinine Glucose POC Glucose 396 H 294 H Hemoglobin A1c Lactic Acid Calcium Phosphorus Magnesium Direct Bilirubin AST ALT C-Reactive Protein Total Protein Albumin Urine WBC (Auto) Salicylates Acetaminophen Heparin-induced Plt Ab 11/20/18 11/20/18 11/20/18 10:25 12:39 16:34 WBC RBC Hgb Hct MCV MCHC RDW Plt Count Lymph % (Auto) [place] % (Auto) Lymph # [place] # Seg Neutrophils % Seg Neuts % (Manual) Lymphocytes % (Manual) Monocytes % (Manual) Nucleated RBC % Seg Neutrophils # Seg Neutrophils # Man Lymphocytes # (Manual) Monocytes # (Manual) POC ABG pH POC ABG pCO2 POC ABG pO2 VBG pH Sodium 135 L Potassium 6.1 H* 5.1 H Chloride 89.8 L Carbon Dioxide BUN 55 H Creatinine 8.2 H Glucose 302 H POC Glucose 245 H Hemoglobin A1c Lactic Acid Calcium Phosphorus Magnesium Direct Bilirubin AST ALT C-Reactive Protein Total Protein Albumin Urine WBC (Auto) Salicylates Acetaminophen Heparin-induced Plt Ab 11/20/18 11/20/18 11/20/18 17:45 18:16 23:12 WBC RBC Hgb Hct MCV MCHC RDW Plt Count Lymph % (Auto) [place] % (Auto) Lymph # [place] # Seg Neutrophils % Seg Neuts % (Manual) Lymphocytes % (Manual) Monocytes % (Manual) Nucleated RBC % Seg Neutrophils # Seg Neutrophils # Man Lymphocytes # (Manual) Monocytes # (Manual) POC ABG pH POC ABG pCO2 POC ABG pO2 VBG pH Sodium Potassium 5.2 H Chloride 90.2 L Carbon Dioxide BUN 60 H Creatinine 8.9 H Glucose 217 H POC Glucose 211 H 320 H Hemoglobin A1c Lactic Acid Calcium Phosphorus Magnesium Direct Bilirubin AST ALT C-Reactive Protein Total Protein Albumin Urine WBC (Auto) Salicylates Acetaminophen Heparin-induced Plt Ab 11/21/18 11/21/18 11/21/18 04:44 04:44 05:32 WBC RBC 2.51 L Hgb 7.8 L Hct 22.3 L MCV MCHC 35 H RDW Plt Count Lymph % (Auto) [place] % (Auto) 9.5 H Lymph # [place] # 1.0 H Seg Neutrophils % 72.3 H Seg Neuts % (Manual) Lymphocytes % (Manual) Monocytes % (Manual) Nucleated RBC % Seg Neutrophils # Seg Neutrophils # Man Lymphocytes # (Manual) Monocytes # (Manual) POC ABG pH POC ABG pCO2 POC ABG pO2 VBG pH Sodium Potassium Chloride 92.7 L Carbon Dioxide BUN 36 H Creatinine 5.9 H Glucose 209 H POC Glucose 203 H Hemoglobin A1c Lactic Acid Calcium Phosphorus 5.50 H Magnesium Direct Bilirubin AST ALT C-Reactive Protein Total Protein Albumin Urine WBC (Auto) Salicylates Acetaminophen Heparin-induced Plt Ab 11/21/18 11/21/18 11/21/18 10:45 12:18 17:49 WBC RBC Hgb Hct MCV MCHC RDW Plt Count Lymph % (Auto) [place] % (Auto) Lymph # [place] # Seg Neutrophils % Seg Neuts % (Manual) Lymphocytes % (Manual) Monocytes % (Manual) Nucleated RBC % Seg Neutrophils # Seg Neutrophils # Man Lymphocytes # (Manual) Monocytes # (Manual) POC ABG pH 7.473 H POC ABG pCO2 POC ABG pO2 121 H VBG pH Sodium Potassium Chloride Carbon Dioxide BUN Creatinine Glucose POC Glucose 149 H 233 H Hemoglobin A1c Lactic Acid Calcium Phosphorus Magnesium Direct Bilirubin AST ALT C-Reactive Protein Total Protein Albumin Urine WBC (Auto) Salicylates Acetaminophen Heparin-induced Plt Ab 11/21/18 11/22/18 11/22/18 23:39 04:52 04:52 WBC 15.1 H RBC 2.59 L Hgb 7.6 L Hct 23.5 L MCV MCHC RDW Plt Count 472 H Lymph % (Auto) 9.9 L [place] % (Auto) 9.7 H Lymph # [place] # 1.5 H Seg Neutrophils % 79.2 H Seg Neuts % (Manual) Lymphocytes % (Manual) Monocytes % (Manual) Nucleated RBC % Seg Neutrophils # 11.9 H Seg Neutrophils # Man Lymphocytes # (Manual) Monocytes # (Manual) POC ABG pH POC ABG pCO2 POC ABG pO2 VBG pH Sodium Potassium Chloride 94.9 L Carbon Dioxide BUN 34 H Creatinine 5.6 H Glucose 182 H POC Glucose 235 H Hemoglobin A1c Lactic Acid Calcium Phosphorus Magnesium Direct Bilirubin AST ALT C-Reactive Protein Total Protein Albumin Urine WBC (Auto) Salicylates Acetaminophen Heparin-induced Plt Ab 11/22/18 11/22/18 11/22/18 05:49 11:39 16:20 WBC RBC Hgb Hct MCV MCHC RDW Plt Count Lymph % (Auto) [place] % (Auto) Lymph # [place] # Seg Neutrophils % Seg Neuts % (Manual) Lymphocytes % (Manual) Monocytes % (Manual) Nucleated RBC % Seg Neutrophils # Seg Neutrophils # Man Lymphocytes # (Manual) Monocytes # (Manual) POC ABG pH POC ABG pCO2 POC ABG pO2 VBG pH Sodium Potassium Chloride Carbon Dioxide BUN Creatinine Glucose POC Glucose 264 H 277 H 303 H Hemoglobin A1c Lactic Acid Calcium Phosphorus Magnesium Direct Bilirubin AST ALT C-Reactive Protein Total Protein Albumin Urine WBC (Auto) Salicylates Acetaminophen Heparin-induced Plt Ab 11/22/18 11/23/18 11/23/18 23:17 04:39 04:39 WBC 12.6 H RBC 2.36 L Hgb 7.1 L Hct 21.2 L MCV MCHC RDW Plt Count Lymph % (Auto) 11.8 L [place] % (Auto) 9.8 H Lymph # [place] # 1.2 H Seg Neutrophils % 77.8 H Seg Neuts % (Manual) Lymphocytes % (Manual) Monocytes % (Manual) Nucleated RBC % Seg Neutrophils # 9.8 H Seg Neutrophils # Man Lymphocytes # (Manual) Monocytes # (Manual) POC ABG pH POC ABG pCO2 POC ABG pO2 VBG pH Sodium 135 L Potassium Chloride 90.4 L Carbon Dioxide BUN 60 H Creatinine 8.5 H D Glucose 345 H POC Glucose 232 H Hemoglobin A1c Lactic Acid Calcium Phosphorus 5.20 H D Magnesium Direct Bilirubin AST ALT C-Reactive Protein Total Protein Albumin Urine WBC (Auto) Salicylates Acetaminophen Heparin-induced Plt Ab 11/23/18 11/23/18 11/23/18 05:49 05:53 12:05 WBC RBC Hgb Hct MCV MCHC RDW Plt Count Lymph % (Auto) [place] % (Auto) Lymph # [place] # Seg Neutrophils % Seg Neuts % (Manual) Lymphocytes % (Manual) Monocytes % (Manual) Nucleated RBC % Seg Neutrophils # Seg Neutrophils # Man Lymphocytes # (Manual) Monocytes # (Manual) POC ABG pH POC ABG pCO2 POC ABG pO2 VBG pH Sodium Potassium Chloride Carbon Dioxide BUN Creatinine Glucose POC Glucose 410 H 366 H 335 H Hemoglobin A1c Lactic Acid Calcium Phosphorus Magnesium Direct Bilirubin AST ALT C-Reactive Protein Total Protein Albumin Urine WBC (Auto) Salicylates Acetaminophen Heparin-induced Plt Ab 11/23/18 11/23/18 11/23/18 18:00 18:16 21:28 WBC RBC Hgb Hct MCV MCHC RDW Plt Count Lymph % (Auto) [place] % (Auto) Lymph # [place] # Seg Neutrophils % Seg Neuts % (Manual) Lymphocytes % (Manual) Monocytes % (Manual) Nucleated RBC % Seg Neutrophils # Seg Neutrophils # Man Lymphocytes # (Manual) Monocytes # (Manual) POC ABG pH POC ABG pCO2 POC ABG pO2 VBG pH Sodium Potassium Chloride Carbon Dioxide BUN Creatinine Glucose POC Glucose 401 H 326 H Hemoglobin A1c Lactic Acid Calcium Phosphorus Magnesium Direct Bilirubin AST ALT C-Reactive Protein Total Protein Albumin Urine WBC (Auto) > 182.0 H Salicylates Acetaminophen Heparin-induced Plt Ab 11/23/18 11/24/18 11/24/18 23:02 05:18 05:18 WBC RBC 2.44 L Hgb 7.4 L Hct 21.9 L MCV MCHC RDW Plt Count 447 H Lymph % (Auto) [place] % (Auto) 10.1 H Lymph # [place] # 1.1 H Seg Neutrophils % 75.4 H Seg Neuts % (Manual) Lymphocytes % (Manual) Monocytes % (Manual) Nucleated RBC % Seg Neutrophils # 8.0 H Seg Neutrophils # Man Lymphocytes # (Manual) Monocytes # (Manual) POC ABG pH POC ABG pCO2 POC ABG pO2 VBG pH Sodium Potassium Chloride 91.7 L Carbon Dioxide BUN 88 H Creatinine 11.3 H Glucose 320 H POC Glucose 305 H Hemoglobin A1c Lactic Acid Calcium Phosphorus 6.60 H D Magnesium Direct Bilirubin AST ALT C-Reactive Protein Total Protein Albumin Urine WBC (Auto) Salicylates Acetaminophen Heparin-induced Plt Ab 11/24/18 11/24/18 11/24/18 05:32 11:07 12:13 WBC RBC Hgb Hct MCV MCHC RDW Plt Count Lymph % (Auto) [place] % (Auto) Lymph # [place] # Seg Neutrophils % Seg Neuts % (Manual) Lymphocytes % (Manual) Monocytes % (Manual) Nucleated RBC % Seg Neutrophils # Seg Neutrophils # Man Lymphocytes # (Manual) Monocytes # (Manual) POC ABG pH POC ABG pCO2 POC ABG pO2 VBG pH Sodium Potassium Chloride Carbon Dioxide BUN Creatinine Glucose POC Glucose 356 H 352 H 355 H Hemoglobin A1c Lactic Acid Calcium Phosphorus Magnesium Direct Bilirubin AST ALT C-Reactive Protein Total Protein Albumin Urine WBC (Auto) Salicylates Acetaminophen Heparin-induced Plt Ab 11/24/18 11/24/18 11/24/18 13:27 14:34 15:03 WBC RBC Hgb Hct MCV MCHC RDW Plt Count Lymph % (Auto) [place] % (Auto) Lymph # [place] # Seg Neutrophils % Seg Neuts % (Manual) Lymphocytes % (Manual) Monocytes % (Manual) Nucleated RBC % Seg Neutrophils # Seg Neutrophils # Man Lymphocytes # (Manual) Monocytes # (Manual) POC ABG pH 7.503 H POC ABG pCO2 POC ABG pO2 146 H VBG pH Sodium Potassium Chloride Carbon Dioxide BUN Creatinine Glucose POC Glucose 267 H 193 H Hemoglobin A1c Lactic Acid Calcium Phosphorus Magnesium Direct Bilirubin AST ALT C-Reactive Protein Total Protein Albumin Urine WBC (Auto) Salicylates Acetaminophen Heparin-induced Plt Ab 11/24/18 11/24/18 11/24/18 15:32 16:24 17:30 WBC RBC Hgb Hct MCV MCHC RDW Plt Count Lymph % (Auto) [place] % (Auto) Lymph # [place] # Seg Neutrophils % Seg Neuts % (Manual) Lymphocytes % (Manual) Monocytes % (Manual) Nucleated RBC % Seg Neutrophils # Seg Neutrophils # Man Lymphocytes # (Manual) Monocytes # (Manual) POC ABG pH POC ABG pCO2 POC ABG pO2 VBG pH Sodium Potassium Chloride Carbon Dioxide BUN Creatinine Glucose POC Glucose 182 H 216 H 207 H Hemoglobin A1c Lactic Acid Calcium Phosphorus Magnesium Direct Bilirubin AST ALT C-Reactive Protein Total Protein Albumin Urine WBC (Auto) Salicylates Acetaminophen Heparin-induced Plt Ab 11/24/18 11/24/18 11/24/18 18:46 20:02 20:59 WBC RBC Hgb Hct MCV MCHC RDW Plt Count Lymph % (Auto) [place] % (Auto) Lymph # [place] # Seg Neutrophils % Seg Neuts % (Manual) Lymphocytes % (Manual) Monocytes % (Manual) Nucleated RBC % Seg Neutrophils # Seg Neutrophils # Man Lymphocytes # (Manual) Monocytes # (Manual) POC ABG pH POC ABG pCO2 POC ABG pO2 VBG pH Sodium Potassium Chloride Carbon Dioxide BUN Creatinine Glucose POC Glucose 206 H 217 H 243 H Hemoglobin A1c Lactic Acid Calcium Phosphorus Magnesium Direct Bilirubin AST ALT C-Reactive Protein Total Protein Albumin Urine WBC (Auto) Salicylates Acetaminophen Heparin-induced Plt Ab 11/24/18 11/24/18 11/25/18 22:12 23:02 00:02 WBC RBC Hgb Hct MCV MCHC RDW Plt Count Lymph % (Auto) [place] % (Auto) Lymph # [place] # Seg Neutrophils % Seg Neuts % (Manual) Lymphocytes % (Manual) Monocytes % (Manual) Nucleated RBC % Seg Neutrophils # Seg Neutrophils # Man Lymphocytes # (Manual) Monocytes # (Manual) POC ABG pH POC ABG pCO2 POC ABG pO2 VBG pH Sodium Potassium Chloride Carbon Dioxide BUN Creatinine Glucose POC Glucose 221 H 180 H 133 H Hemoglobin A1c Lactic Acid Calcium Phosphorus Magnesium Direct Bilirubin AST ALT C-Reactive Protein Total Protein Albumin Urine WBC (Auto) Salicylates Acetaminophen Heparin-induced Plt Ab 11/25/18 11/25/18 11/25/18 01:03 02:13 03:12 WBC RBC Hgb Hct MCV MCHC RDW Plt Count Lymph % (Auto) [place] % (Auto) Lymph # [place] # Seg Neutrophils % Seg Neuts % (Manual) Lymphocytes % (Manual) Monocytes % (Manual) Nucleated RBC % Seg Neutrophils # Seg Neutrophils # Man Lymphocytes # (Manual) Monocytes # (Manual) POC ABG pH POC ABG pCO2 POC ABG pO2 VBG pH Sodium Potassium Chloride Carbon Dioxide BUN Creatinine Glucose POC Glucose 120 H 133 H 160 H Hemoglobin A1c Lactic Acid Calcium Phosphorus Magnesium Direct Bilirubin AST ALT C-Reactive Protein Total Protein Albumin Urine WBC (Auto) Salicylates Acetaminophen Heparin-induced Plt Ab 11/25/18 11/25/18 11/25/18 04:11 04:14 04:14 WBC 12.1 H RBC 2.53 L Hgb 7.8 L Hct 23.8 L MCV MCHC RDW Plt Count Lymph % (Auto) [place] % (Auto) Lymph # [place] # Seg Neutrophils % Seg Neuts % (Manual) Lymphocytes % (Manual) Monocytes % (Manual) Nucleated RBC % Seg Neutrophils # Seg Neutrophils # Man Lymphocytes # (Manual) Monocytes # (Manual) POC ABG pH POC ABG pCO2 POC ABG pO2 VBG pH Sodium Potassium Chloride 93.6 L Carbon Dioxide BUN 53 H Creatinine 7.3 H Glucose 135 H POC Glucose 161 H Hemoglobin A1c Lactic Acid Calcium Phosphorus 5.30 H Magnesium Direct Bilirubin AST ALT C-Reactive Protein Total Protein Albumin Urine WBC (Auto) Salicylates Acetaminophen Heparin-induced Plt Ab 11/25/18 11/25/18 11/25/18 05:17 06:02 07:08 WBC RBC Hgb Hct MCV MCHC RDW Plt Count Lymph % (Auto) [place] % (Auto) Lymph # [place] # Seg Neutrophils % Seg Neuts % (Manual) Lymphocytes % (Manual) Monocytes % (Manual) Nucleated RBC % Seg Neutrophils # Seg Neutrophils # Man Lymphocytes # (Manual) Monocytes # (Manual) POC ABG pH POC ABG pCO2 POC ABG pO2 VBG pH Sodium Potassium Chloride Carbon Dioxide BUN Creatinine Glucose POC Glucose 178 H 146 H 159 H Hemoglobin A1c Lactic Acid Calcium Phosphorus Magnesium Direct Bilirubin AST ALT C-Reactive Protein Total Protein Albumin Urine WBC (Auto) Salicylates Acetaminophen Heparin-induced Plt Ab 11/25/18 11/25/18 11/25/18 08:11 09:14 10:10 WBC RBC Hgb Hct MCV MCHC RDW Plt Count Lymph % (Auto) [place] % (Auto) Lymph # [place] # Seg Neutrophils % Seg Neuts % (Manual) Lymphocytes % (Manual) Monocytes % (Manual) Nucleated RBC % Seg Neutrophils # Seg Neutrophils # Man Lymphocytes # (Manual) Monocytes # (Manual) POC ABG pH POC ABG pCO2 POC ABG pO2 VBG pH Sodium Potassium Chloride Carbon Dioxide BUN Creatinine Glucose POC Glucose 150 H 162 H 168 H Hemoglobin A1c Lactic Acid Calcium Phosphorus Magnesium Direct Bilirubin AST ALT C-Reactive Protein Total Protein Albumin Urine WBC (Auto) Salicylates Acetaminophen Heparin-induced Plt Ab 11/25/18 11/25/18 11/25/18 11:13 12:24 13:06 WBC RBC Hgb Hct MCV MCHC RDW Plt Count Lymph % (Auto) [place] % (Auto) Lymph # [place] # Seg Neutrophils % Seg Neuts % (Manual) Lymphocytes % (Manual) Monocytes % (Manual) Nucleated RBC % Seg Neutrophils # Seg Neutrophils # Man Lymphocytes # (Manual) Monocytes # (Manual) POC ABG pH POC ABG pCO2 POC ABG pO2 VBG pH Sodium Potassium Chloride Carbon Dioxide BUN Creatinine Glucose POC Glucose 152 H 142 H 141 H Hemoglobin A1c Lactic Acid Calcium Phosphorus Magnesium Direct Bilirubin AST ALT C-Reactive Protein Total Protein Albumin Urine WBC (Auto) Salicylates Acetaminophen Heparin-induced Plt Ab 11/25/18 14:16 WBC RBC Hgb Hct MCV MCHC RDW Plt Count Lymph % (Auto) [place] % (Auto) Lymph # [place] # Seg Neutrophils % Seg Neuts % (Manual) Lymphocytes % (Manual) Monocytes % (Manual) Nucleated RBC % Seg Neutrophils # Seg Neutrophils # Man Lymphocytes # (Manual) Monocytes # (Manual) POC ABG pH POC ABG pCO2 POC ABG pO2 VBG pH Sodium Potassium Chloride Carbon Dioxide BUN Creatinine Glucose POC Glucose 147 H Hemoglobin A1c Lactic Acid Calcium Phosphorus Magnesium Direct Bilirubin AST ALT C-Reactive Protein Total Protein Albumin Urine WBC (Auto) Salicylates Acetaminophen Heparin-induced Plt Ab Allied health notes reviewed: nursing
--- NOTE | 2018-11-25 14:23 | Progress Note ---
Assessment and Plan Severe renal failure due to GENEVIEVE on CKD, now ESRD on HD S/p High Anion Gap Metabolic Acidosis with elevated lactic acidosis with DKA: S/p Hyperkalemia: S/p Hyperphosphatemia: Hypernatremia: - S/p HD yesterday for UF and clearance, UF removed 2 liters - No acute indication for HD today - Planning on transferring to [facility] today - Assess dialysis needs daily - Renally dose medications - Avoid Nephrotoxic agents - Strict intake and output - ID on board, possible need for ramirez catheter placement depending on repeat bladder scan per ID note - Renal plan d/w Dr Bojorquez S/p Cardiopulmonary arrest. STEMI: Acute Hypoxic respiratory failure: -S/p CPR and ACLS protocol -Now off pressor support -On ventilator via Trach. S/p Diabetic Ketoacidosis: Diabetes Mellitus: - S/p insulin drip - On SQ insulin - As per primary team Acute Encephalopathy History of Seizure: -On IV Keppra -MRI Brain pending -As per Neurology Subjective Date of service: 11/25/18 Principal diagnosis: Ac hypoxemic resp failure; DKA; Severe sepsis with shock; ESRD on dialysis Interval history: Pt seen in ICU, on ventilator, no acute distress. Mother at bedside Objective - Vital Signs Vital signs: Vital Signs - 12hr 11/25/18 11/25/18 11/25/18 02:30 03:00 03:30 Temperature Pulse Rate 102 H 102 H 98 H Pulse Rate [ From Monitor] Respiratory 20 18 20 Rate Blood Pressure 131/74 119/70 111/62 O2 Sat by Pulse 100 100 100 Oximetry O2 Sat by Pulse Oximetry [ Assessment] 11/25/18 11/25/18 11/25/18 03:43 03:45 03:46 Temperature Pulse Rate 102 H Pulse Rate [ From Monitor] Respiratory Rate Blood Pressure 115/66 O2 Sat by Pulse 100 100 Oximetry O2 Sat by Pulse 100 Oximetry [ Assessment] 11/25/18 11/25/18 11/25/18 04:00 04:30 05:00 Temperature 100.4 F H Pulse Rate 101 H 100 H 99 H Pulse Rate [ From Monitor] Respiratory 20 20 20 Rate Blood Pressure 120/65 112/70 114/67 O2 Sat by Pulse 100 99 100 Oximetry O2 Sat by Pulse Oximetry [ Assessment] 11/25/18 11/25/18 11/25/18 05:30 05:32 06:00 Temperature Pulse Rate 100 H 102 H 105 H Pulse Rate [ From Monitor] Respiratory 20 19 Rate Blood Pressure 107/67 107/67 164/80 O2 Sat by Pulse 100 100 Oximetry O2 Sat by Pulse Oximetry [ Assessment] 11/25/18 11/25/18 11/25/18 06:30 07:00 07:30 Temperature Pulse Rate 101 H 100 H 107 H Pulse Rate [ From Monitor] Respiratory 20 20 11 L Rate Blood Pressure 122/64 96/46 128/74 O2 Sat by Pulse 100 100 100 Oximetry O2 Sat by Pulse Oximetry [ Assessment] 11/25/18 11/25/18 11/25/18 08:00 08:30 08:43 Temperature 98.6 F Pulse Rate 102 H 109 H 100 H Pulse Rate [ 106 H From Monitor] Respiratory 20 21 Rate Blood Pressure 109/59 134/73 134/73 O2 Sat by Pulse 100 100 100 Oximetry O2 Sat by Pulse 100 Oximetry [ Assessment] 11/25/18 11/25/18 11/25/18 09:00 09:30 10:00 Temperature Pulse Rate 104 H 105 H 103 H Pulse Rate [ From Monitor] Respiratory 35 H 37 H 37 H Rate Blood Pressure 130/69 137/73 127/66 O2 Sat by Pulse 100 100 100 Oximetry O2 Sat by Pulse Oximetry [ Assessment] 11/25/18 11/25/18 11/25/18 10:16 10:30 11:00 Temperature Pulse Rate 96 H 91 H Pulse Rate [ From Monitor] Respiratory 35 H Rate Blood Pressure 130/71 138/86 121/64 O2 Sat by Pulse 100 100 Oximetry O2 Sat by Pulse Oximetry [ Assessment] 11/25/18 11/25/18 11/25/18 11:30 12:00 12:30 Temperature 99.5 F Pulse Rate 91 H 101 H 94 H Pulse Rate [ 101 H From Monitor] Respiratory 31 H 32 H 34 H Rate Blood Pressure 125/64 146/84 125/65 O2 Sat by Pulse 100 100 100 Oximetry O2 Sat by Pulse Oximetry [ Assessment] 11/25/18 11/25/18 12:48 13:00 Temperature Pulse Rate 93 H Pulse Rate [ From Monitor] Respiratory 32 H Rate Blood Pressure 121/64 O2 Sat by Pulse 100 100 Oximetry O2 Sat by Pulse Oximetry [ Assessment] - General Appearance General appearance: other (on ventilator) EENT: ATNC Neck: no JVD Respiratory: Present: Decreased Breath Sounds (Trach in place on vent) Cardiology: regular, S1S2, other (ACCESS: Left AVF + thrill and bruit ) Gastrointestinal: normoactive bowel sounds (PEG tube intact) Integumentary: warm and dry Neurologic: other (on ventilator, T piece) Psychiatric: other (unable to assess) - Lab 11/25/18 04:14 11/25/18 04:14 Most recent lab results Calcium 10.0 mg/dL (8.4-10.2) 11/25/18 04:14 Phosphorus 5.30 mg/dL (2.5-4.5) H 11/25/18 04:14 Magnesium 2.40 mg/dL (1.7-2.3) H 11/17/18 04:45 Medications & Allergies - Medications Allergies/Adverse Reactions: Allergies No Known Allergies Allergy (Verified 03/17/18 11:54) Home Medications: Home Medications Medication Instructions Recorded Confirmed Last Taken Type Esomeprazole Magnesium [NexIUM] 20 mg PO QDAY #30 suspdr.pkt 03/17/18 11/07/18 Unknown Rx HYDROcodone/APAP 5-325 [[place] 1 each PO Q6HR PRN #15 tablet 03/17/18 11/07/18 Unknown Rx 5/325] Metoclopramide [Reglan] 10 mg PO TID #21 tab 03/17/18 11/07/18 Unknown Rx Ondansetron [Zofran Odt] 4 mg PO Q4HR PRN #20 tab.rapdis 03/17/18 11/07/18 Unknown Rx Active Medications: Generic Name Dose Route Start Last Admin Trade Name Freq PRN Reason Stop Dose Admin Acetaminophen 650 mg 11/06/18 22:22 11/22/18 12:57 Tylenol FEEDTUBE 650 mg Q6H PRN Administration Fever >/=100.5 Lipase/Protease/Amylase 1 each 11/08/18 18:38 Pancreclara [place] 10,500 Unit FEEDTUBE PRN PRN For Clogged Feeding Tube Apixaban 2.5 mg 11/20/18 22:00 11/25/18 09:17 Eliquis FEEDTUBE 2.5 mg BID MARIAJOSE Administration Chlorpromazine HCl 10 mg 11/07/18 08:07 11/22/18 12:56 Thorazine PO 10 mg Q6H PRN Administration Hiccups Clonazepam 0.5 mg 11/12/18 16:49 11/13/18 23:10 Klonopin PO 0.5 mg Q12H PRN Administration myoclonic jerks Dextrose 50 ml 11/07/18 16:46 11/10/18 23:43 D50w (25gm) Syringe IV 50 ml PRN PRN Administration Hypoglycemia Epoetin Enoc 20,000 unit 11/18/18 13:46 11/24/18 16:37 Procrit IV 20,000 unit MARY PRN Administration hemodialysis Fentanyl 50 mcg 11/06/18 08:37 Sublimaze IV Q10MIN PRN ANALGESIA Hydralazine HCl 10 mg 11/08/18 00:56 11/23/18 23:58 Apresoline IV 10 mg Q4H PRN Administration Hypertension Hydralazine HCl 50 mg 11/14/18 09:16 11/25/18 05:32 Apresoline PO Not Given Q8HR MARIAJOSE Hydrophilic Ointment 1 applic 11/06/18 08:26 11/10/18 19:52 Vaseline Lip Therapy TP 1 applic Q2HR PRN Administration Dry Lips Sodium Chloride 100 mls @ 999 mls/hr 11/14/18 11:33 Nacl 0.9% IV MARY PRN Hypotension Cefepime HCl 1 gm in 100 mls @ 200 mls/hr 11/23/18 17:00 11/25/18 09:19 Maxipime/Ns 1 Gm/100 Ml IV 200 mls/hr Q24HR MARIAJOSE Administration Protocol Insulin Human Regular 100 100 mls @ 1 mls/hr 11/24/18 10:00 11/25/18 13:04 units/ Sodium Chloride IV 3 units/hr TITR MARIAJOSE 3 mls/hr Titration Protocol 1 UNITS/HR Labetalol HCl 10 mg 11/19/18 16:09 11/20/18 15:24 Normodyne IV 10 mg Q4H PRN Administration Hypertension Lansoprazole 30 mg 11/09/18 10:00 11/25/18 09:18 Prevacid Solutab FEEDTUBE 30 mg BID MARIAJOSE Administration Levetiracetam 750 mg 11/18/18 10:00 11/25/18 09:17 Keppra PO 750 mg BID MARIAJOSE Administration Lorazepam 2 mg 11/12/18 08:31 11/24/18 03:23 Ativan IV 2 mg Q4H PRN Administration Agitation Metoprolol Tartrate 50 mg 11/14/18 10:00 11/25/18 10:16 Lopressor PO 50 mg Q6H MARIAJOSE Administration Modafinil 200 mg 11/17/18 10:00 11/25/18 09:17 Provigil PO 200 mg QAM MARIAJOSE Administration Multi-Ingred Cream/Lotion/Oil/Oint 1 applic 11/06/18 08:26 Artificial Tears Ophth Oint OU Q4HR PRN Dry Eye(s) Simple Syrup 15 ml 11/08/18 18:38 Simple Syrup FEEDTUBE PRN PRN Hypoglycemia Simple Syrup 30 ml 11/08/18 18:38 Simple Syrup FEEDTUBE PRN PRN Hypoglycemia Sodium Bicarbonate 325 mg 11/08/18 18:38 Sodium Bicarbonate FEEDTUBE PRN PRN For Clogged Feeding Tube Sodium Chloride 10 ml 11/06/18 22:00 11/25/18 09:18 Sodium Chloride Flush Syringe 10 Ml IV 10 ml BID MARIAJOSE Administration Sodium Chloride 10 ml 11/06/18 12:42 11/13/18 10:30 Sodium Chloride Flush Syringe 10 Ml IV 10 ml PRN PRN Administration LINE FLUSH Tamsulosin HCl 0.4 mg 11/10/18 13:00 11/25/18 09:17 Flomax PO 0.4 mg QDAY MARIAJOSE Administration
[2018-11-25] MEDS: HumaLOG SUB-Q SCH (17:56)
--- NOTE | 2018-11-25 18:41 | Magnetic Resonance Report ---
PROCEDURE: MR BRAIN WO CON HISTORY: anoxic encephalopathy FINDINGS: MRI of the brain was performed using sagittal T1, axial diffusion, axial T2, axial FLAIR, a xial T1 and coronal FLAIR images. Comparison is made to head CT of November 25. Acute right thalamic infarct, diffusion image 19 measures 1.2 x 0.6 cm. Acute left basal ganglia infarct, image 17 measures 0.3 cm. Acute right parietal periventricular white matter infarct, diffusion-weighted image 21 measures appro ximately 1.4 x 1.0 cm. Right frontal white matter infarct, image 23 measures 0.7 x 0.5 cm. There are several right parietal white matter infarcts depicted on diffusion-weighted image 25, measu ring 1.5 x 0.9 cm, 1.0 x 1.0 cm and 0.9 x 0.8 cm. Left frontal white matter infarct, diffusion-weighted image 21 measures 0.6 cm Largest left parietal white matter infarct, diffusion-weighted image 24 measures 1.4 x 0.2 cm. No definite transcortical infarct is seen. No midline shift or mass effect is seen. There are normal flow voids in the basilar artery and both internal carotid arteries The mastoid air cells and middle ears appear clear. There is no evidence of acute sinusitis. IMPRESSION: Bilateral acute basal ganglia infarcts Bilateral acute frontal lobe white matter infarcts Bilateral acute parietal white matter infarcts This document is electronically signed by Paul Lackey MD., November 25 2018 06:39:54 PM ET
--- NOTE | 2018-11-25 19:25 | Progress Note ---
Assessment and Plan Assessment and plan: --S/P Cardiopulmonary Arrest- Possibly from renal failure with severe DKA and underlying CHF 2d echo showed Ef 30-35% on ventilatory support, nebulizers, supportive care --Anoxic Encephalopathy; from cardiac arrest neurology following, supportive care, Poor prognosis, EEG showed diffuse slowing and no seizure activity Neuro recommended MRI, scheduled for today --Acute Hypoxic Respiratory failure; vent dependent Unable to wean, status post trach and PEG 11/19/18 Continue trach and PEG care, PEG feeds per protocol --Febrile illness with UTI and sepsis, not POA Intermittent fevers, low-grade fever last 24 hours MAXIMUM TEMPERATURE 100.4 on cefepime, I'll be following, follow cultures and supportive care UA showed pyuria with urine culture growing Pseudomonas. Chest x-ray negative for pneumonia. 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 closely monitor platelets, --Seizure Disorder; seizure precautions cont Antiepileptic medications, neurology following, EEG findings noted --Acute Kidney Injury secondary to ischemic ATN from hypotension, Hemodialysis per schedule nephrology following --Cardiogenic Shock; improved --Anemia of chronic disease; monitor H&H and transfuse as needed, check stool for occult blood --Severe malnutrition/nutritional supplements, nutrition consult; --PAD; no statin for abnormal liver function --Shock Liver; with transaminitis, trending down, cont to monitor, supportive care --CHF with EF 30-35% - monitor volume status, cardiology following --DVT prophylaxis; SCDs --Full CODE STATUS Very poor prognosis. Plan of care is reviewed with the patient's mother in detail Patient remains critically ill, mother and other family members are aware Plan of care is reviewed with the patient's nurse and case management Disposition; initially planned discharge to LTAC today However MRI recommended by neurology is pending Critical care time 35 minutes History Interval history: Patient seen and examined medical records reviewed Patient is critically change in clinical status Status post tracheostomy on ventilator to support unable to wean Anoxic and coagulopathy Vital signs noted Hospitalist Physical - Constitutional Vitals: Temp Pulse Resp BP Pulse Ox 97.6 F 100 H 24 139/67 100 11/25/18 16:00 11/25/18 17:49 11/25/18 17:49 11/25/18 17:42 11/25/18 17:42 General appearance: Present: no acute distress, well-nourished, other (status post tracheostomy on vent) - EENT Eyes: Present: PERRL - Neck Neck: Present: supple, normal ROM, other (tracheostomy) - Respiratory Respiratory effort: normal Respiratory: bilateral: diminished, rhonchi, negative: rales, wheezing - Cardiovascular Rhythm: regular Heart Sounds: Present: S1 & S2 - Extremities Extremities: no ischemia, No edema - Abdominal General gastrointestinal: soft, non-tender, non-distended, normal bowel sounds, other (PEG in place) - Integumentary Integumentary: Present: clear, warm - Psychiatric Psychiatric: other (noncommunicative on vent) - Neurologic Neurologic: other (noncommunicative, anoxic encephalopathy) Results - Labs CBC & Chem 7: 11/26/18 04:34 11/26/18 08:30 Labs: Laboratory Last Values WBC 12.1 K/mm3 (4.5-11.0) H 11/25/18 04:14 RBC 2.53 M/mm3 (3.65-5.03) L 11/25/18 04:14 Hgb 7.8 gm/dl (11.8-15.2) L 11/25/18 04:14 Hct 23.8 % (35.5-45.6) L 11/25/18 04:14 MCV 94 fl (84-94) 11/25/18 04:14 MCH 31 pg (28-32) 11/25/18 04:14 MCHC 33 % (32-34) 11/25/18 04:14 RDW 15.2 % (13.2-15.2) 11/25/18 04:14 Plt Count 413 K/mm3 (140-440) 11/25/18 04:14 Lymph % (Auto) [employer] 11/25/18 04:14 Cherry % (Auto) [employer] 11/25/18 04:14 Eos % (Auto) [employer] 11/25/18 04:14 Baso % (Auto) [employer] 11/25/18 04:14 Lymph # [employer] 11/25/18 04:14 Cherry # [employer] 11/25/18 04:14 Eos # [employer] 11/25/18 04:14 Baso # [employer] 11/25/18 04:14 Add Manual Diff Complete 11/11/18 04:24 Total Counted 100 11/11/18 04:24 Seg Neutrophils % [employer] 11/25/18 04:14 Seg Neuts % (Manual) 66.0 % (40.0-70.0) 11/11/18 04:24 0 % 11/11/18 04:24 22.0 % (13.4-35.0) 11/11/18 04:24 Reactive Lymphs % (Man) 0 % 11/11/18 04:24 10.0 % (0.0-7.3) H 11/11/18 04:24 2.0 % (0.0-4.3) 11/11/18 04:24 0 % (0.0-1.8) 11/11/18 04:24 0 % 11/11/18 04:24 0 % 11/11/18 04:24 0 % 11/11/18 04:24 0 % 11/11/18 04:24 Nucleated RBC % Not Reportable 11/11/18 04:24 Seg Neutrophils # [employer] 11/25/18 04:14 Seg Neutrophils # Man 6.9 K/mm3 (1.8-7.7) 11/11/18 04:24 Band Neutrophils # 0.0 K/mm3 11/11/18 04:24 2.3 K/mm3 (1.2-5.4) 11/11/18 04:24 Abs React Lymphs (Man) 0.0 K/mm3 11/11/18 04:24 1.0 K/mm3 (0.0-0.8) H 11/11/18 04:24 0.2 K/mm3 (0.0-0.4) 11/11/18 04:24 0.0 K/mm3 (0.0-0.1) 11/11/18 04:24 0.0 K/mm3 11/11/18 04:24 0.0 K/mm3 11/11/18 04:24 0.0 K/mm3 11/11/18 04:24 Blast Cells # 0.0 K/mm3 11/11/18 04:24 WBC Morphology Not Reportable 11/11/18 04:24 Hypersegmented Neuts Not Reportable 11/11/18 04:24 Hyposegmented Neuts Not Reportable 11/11/18 04:24 Hypogranular Neuts Not Reportable 11/11/18 04:24 Not Reportable 11/11/18 04:24 Not Reportable 11/11/18 04:24 Not Reportable 11/11/18 04:24 Not Reportable 11/11/18 04:24 Not Reportable 11/11/18 04:24 Not Reportable 11/11/18 04:24 Consistent w auto 11/11/18 04:24 Not Reportable 11/11/18 04:24 Plt Clumps, EDTA Not Reportable 11/11/18 04:24 Not Reportable 11/11/18 04:24 Not Reportable 11/11/18 04:24 Not Reportable 11/11/18 04:24 Plt Morphology Comment Not Reportable 11/11/18 04:24 RBC Morphology Not Reportable 11/11/18 04:24 Dimorphic RBCs Not Reportable 11/11/18 04:24 Not Reportable 11/11/18 04:24 Not Reportable 11/11/18 04:24 Not Reportable 11/11/18 04:24 1+ 11/11/18 04:24 Not Reportable 11/11/18 04:24 Not Reportable 11/11/18 04:24 Not Reportable 11/11/18 04:24 Not Reportable 11/11/18 04:24 Not Reportable 11/11/18 04:24 Not Reportable 11/11/18 04:24 Not Reportable 11/11/18 04:24 Not Reportable 11/11/18 04:24 Not Reportable 11/11/18 04:24 Not Reportable 11/11/18 04:24 Not Reportable 11/11/18 04:24 Not Reportable 11/11/18 04:24 Not Reportable 11/11/18 04:24 Not Reportable 11/11/18 04:24 Not Reportable 11/11/18 04:24 Acanthocytes (Spur) Not Reportable 11/11/18 04:24 Rouleaux Not Reportable 11/11/18 04:24 Not Reportable 11/11/18 04:24 Not Reportable 11/11/18 04:24 Not Reportable 11/11/18 04:24 Not Reportable 11/11/18 04:24 Hem Pathologist Commnt No 11/11/18 04:24 Heparin Anti-Xa, Unfract Negative (Negative) 11/08/18 21:59 POC ABG pH 7.503 (7.35-7.45) H 11/24/18 15:03 POC ABG pCO2 40.6 (35-45) 11/24/18 15:03 POC ABG pO2 146 (80-105) H 11/24/18 15:03 POC ABG HCO3 31.9 (22-26 mml/L) 11/24/18 15:03 POC ABG Total CO2 33 (23-27mmol/L) 11/24/18 15:03 POC ABG O2 Sat 99 11/24/18 15:03 POC ABG Base Excess 9 ((-2) - (+3)mmol/L) 11/24/18 15:03 VBG pH 6.982 (7.320-7.420) L* 11/06/18 13:22 28 % 11/24/18 15:03 Sodium 137 mmol/L (137-145) 11/25/18 04:14 Potassium 4.8 mmol/L (3.6-5.0) 11/25/18 04:14 Chloride 93.6 mmol/L (98-107) L 11/25/18 04:14 Carbon Dioxide 24 mmol/L (22-30) 11/25/18 04:14 24 mmol/L 11/25/18 04:14 BUN 53 mg/dL (9-20) H 11/25/18 04:14 7.3 mg/dL (0.8-1.5) H 11/25/18 04:14 Estimated GFR 10 ml/min 11/25/18 04:14 7 % 11/25/18 04:14 Glucose 135 mg/dL (75-100) H 11/25/18 04:14 POC Glucose 344 (70-105) H 11/25/18 17:43 10.1 % (4-6) H 11/15/18 04:50 Lactic Acid 2.70 mmol/L (0.7-2.0) H* 11/08/18 08:00 Calcium 10.0 mg/dL (8.4-10.2) 11/25/18 04:14 Phosphorus 5.30 mg/dL (2.5-4.5) H 11/25/18 04:14 Magnesium 2.40 mg/dL (1.7-2.3) H 11/17/18 04:45 < 0.20 mg/dL (0.1-1.2) 11/16/18 04:49 < 0.2 mg/dL (0-0.2) 11/16/18 04:49 0.0 mg/dL 11/16/18 04:49 AST 30 units/L (5-40) 11/16/18 04:49 ALT 48 units/L (7-56) 11/16/18 04:49 94 units/L (35-129) 11/16/18 04:49 58 units/L (55-170) 11/06/18 09:02 0.027 ng/mL (0.00-0.029) 11/06/18 09:02 1.90 mg/dL (0.00-1.30) H 11/06/18 19:30 6.5 g/dL (6.3-8.2) 11/16/18 04:49 2.2 g/dL (3.9-5) L 11/16/18 04:49 0.5 % 11/16/18 04:49 See scanned result 11/08/18 21:59 Su (Yellow) 11/23/18 18:00 Turbid (Clear) 11/23/18 18:00 5.0 (5.0-7.0) 11/23/18 18:00 Ur Specific [place] 1.025 (1.003-1.030) 11/23/18 18:00 >500 mg/dL (Negative) 11/23/18 18:00 50 mg/dL (Negative) 11/23/18 18:00 Tr mg/dL (Negative) 11/23/18 18:00 Mod (Negative) 11/23/18 18:00 Neg (Negative) 11/23/18 18:00 Neg (Negative) 11/23/18 18:00 < 2.0 mg/dL (<2.0) 11/23/18 18:00 Ur Leukocyte Esterase Mod (Negative) 11/23/18 18:00 > 182.0 /HPF (0.0-6.0) H 11/23/18 18:00 128.0 /HPF (0.0-6.0) 11/23/18 18:00 U Epithel Cells (Auto) 1.0 /HPF (0-13.0) 11/23/18 18:00 2+ /HPF (Negative) 11/23/18 18:00 3+ /HPF 11/23/18 18:00 Hyaline Casts 8 /LPF 11/23/18 18:00 Few /HPF 11/23/18 18:00 3+ /HPF 11/23/18 18:00 Random Vancomycin 13.2 ug/mL (0-40.0) 11/08/18 04:23 Salicylates < 0.3 mg/dL (2.8-20.0) L 11/06/18 09:02 Presumptive negative 11/06/18 10:38 Presumptive negative 11/06/18 10:38 Acetaminophen < 5.0 ug/mL (10.0-30.0) L 11/06/18 09:02 Ur Barbiturates Screen Presumptive negative 11/06/18 10:38 Ur Phencyclidine Scrn Presumptive negative 11/06/18 10:38 Ur Amphetamines Screen Presumptive negative 11/06/18 10:38 U Benzodiazepines Scrn Presumptive negative 11/06/18 10:38 Presumptive negative 11/06/18 10:38 U Marijuana (THC) Screen Presumptive positive 11/06/18 10:38 Disclamer 11/06/18 10:38 Plasma/Serum Alcohol < 0.01 % (0-0.07) 11/06/18 09:02 Heparin-induced Plt Ab Positive (Negative) H 11/08/18 21:59 UF Heparin High Dose 0 % Release 11/08/18 21:59 DEBORA UFH Low Dose 0.1 0 % Release 11/08/18 21:59 DEBORA UFH Low Dose 0.5 0 % Release 11/08/18 21:59 Hepatitis A IgM Ab Non-reactive (NonReactive) 11/07/18 13:20 Hep Bs Antigen Non-reactive (Negative) 11/07/18 13:20 Hep B Core IgM Ab Non-reactive (NonReactive) 11/07/18 13:20 Non-reactive (NonReactive) 11/07/18 13:20 Blood Type A POSITIVE 11/06/18 14:15 Antibody Screen Not Reportable 11/06/18 14:15 JANIS Antibody Screen Negative 11/06/18 14:15 Active Medications - Current Medications Current Medications: Generic Name Dose Route Start Last Admin Trade Name Elieq PRN Reason Stop Dose Admin Acetaminophen 650 mg 11/06/18 22:22 11/22/18 12:57 Tylenol FEEDTUBE 650 mg Q6H PRN Administration Fever >/=100.5 Lipase/Protease/Amylase 1 each 11/08/18 18:38 Pancreaze 10,500 Unit FEEDTUBE PRN PRN For Clogged Feeding Tube Apixaban 2.5 mg 11/20/18 22:00 11/25/18 09:17 Eliquis FEEDTUBE 2.5 mg BID MARIAJOSE Administration Chlorpromazine HCl 10 mg 11/07/18 08:07 11/22/18 12:56 Thorazine PO 10 mg Q6H PRN Administration Hiccups Clonazepam 0.5 mg 11/12/18 16:49 11/13/18 23:10 Klonopin PO 0.5 mg Q12H PRN Administration myoclonic jerks Dextrose 50 ml 11/07/18 16:46 11/10/18 23:43 D50w (25gm) Syringe IV 50 ml PRN PRN Administration Hypoglycemia Epoetin Enoc 20,000 unit 11/18/18 13:46 11/24/18 16:37 Procrit IV 20,000 unit MARY PRN Administration hemodialysis Fentanyl 50 mcg 11/06/18 08:37 Sublimaze IV Q10MIN PRN ANALGESIA Hydralazine HCl 10 mg 11/08/18 00:56 11/23/18 23:58 Apresoline IV 10 mg Q4H PRN Administration Hypertension Hydralazine HCl 50 mg 11/14/18 09:16 11/25/18 14:21 Apresoline PO 50 mg Q8HR MARIAJOSE Administration Hydrophilic Ointment 1 applic 11/06/18 08:26 11/10/18 19:52 Vaseline Lip Therapy TP 1 applic Q2HR PRN Administration Dry Lips Sodium Chloride 100 mls @ 999 mls/hr 11/14/18 11:33 Nacl 0.9% IV MARY PRN Hypotension Cefepime HCl 1 gm in 100 mls @ 200 mls/hr 11/23/18 17:00 11/25/18 09:19 Maxipime/Ns 1 Gm/100 Ml IV 200 mls/hr Q24HR MARIAJOSE Administration Protocol Insulin Glargine 20 units 11/25/18 22:00 Lantus SUB-Q QHS MARIAJOSE Insulin Human Lispro 0 unit 11/25/18 18:00 11/25/18 17:56 Humalog SUB-Q 8 unit Q6HR MARIAJOSE Administration Protocol Labetalol HCl 10 mg 11/19/18 16:09 11/20/18 15:24 Normodyne IV 10 mg Q4H PRN Administration Hypertension Lansoprazole 30 mg 11/09/18 10:00 11/25/18 09:18 Prevacid Solutab FEEDTUBE 30 mg BID MARIAJOSE Administration Levetiracetam 750 mg 11/18/18 10:00 11/25/18 09:17 Keppra PO 750 mg BID MARIAJOSE Administration Lorazepam 2 mg 11/12/18 08:31 11/24/18 03:23 Ativan IV 2 mg Q4H PRN Administration Agitation Metoprolol Tartrate 50 mg 11/14/18 10:00 11/25/18 16:30 Lopressor PO 50 mg Q6H MARIAJOSE Administration Modafinil 200 mg 11/17/18 10:00 11/25/18 09:17 Provigil PO 200 mg QAM MARIAJOSE Administration Multi-Ingred Cream/Lotion/Oil/Oint 1 applic 11/06/18 08:26 Artificial Tears Ophth Oint OU Q4HR PRN Dry Eye(s) Simple Syrup 15 ml 11/08/18 18:38 Simple Syrup FEEDTUBE PRN PRN Hypoglycemia Simple Syrup 30 ml 11/08/18 18:38 Simple Syrup FEEDTUBE PRN PRN Hypoglycemia Sodium Bicarbonate 325 mg 11/08/18 18:38 Sodium Bicarbonate FEEDTUBE PRN PRN For Clogged Feeding Tube Sodium Chloride 10 ml 11/06/18 22:00 11/25/18 09:18 Sodium Chloride Flush Syringe 10 Ml IV 10 ml BID MARIAJOSE Administration Sodium Chloride 10 ml 11/06/18 12:42 11/13/18 10:30 Sodium Chloride Flush Syringe 10 Ml IV 10 ml PRN PRN Administration LINE FLUSH Tamsulosin HCl 0.4 mg 11/10/18 13:00 11/25/18 09:17 Flomax PO 0.4 mg QDAY MARIAJOSE Administration Nutrition/Malnutrition Assess - Dietary Evaluation Nutrition/Malnutrition Findings: Nutrition Notes Start: 11/07/18 14:40 Freq: Status: Active Protocol: Document 11/23/18 16:39 RM (Rec: 11/23/18 16:41 RM [email or web address]) Nutrition Notes Initial or Follow up Reassessment Current Diagnosis CKD (stage V CKD),Diabetes Other Pertinent Diagnosis on HD, PAD, Anoxic brain injury, Cardiopulmonary arrest , AMS Current Diet Nepro at 50 ml/hr Labs/Tests K 4.5 Pertinent Medications Reviewed Height 6 ft 2 in Weight 101.9 kg [place] Body Weight (kg) 86.36 BMI 28.8 Subjective/Other Information Observed Nepro infusing at goal rate. Per nurse pt is tolerating TF. Percent of energy/protein needs met: 100%/94% Burn Absent Trauma Absent #1 Nutrition Diagnosis Inadequate oral intake Diagnosis Progress(for reassessment Continues documentation) Is patient on ventilator? Yes Is Patient Ambulatory and/or Out of Bed No REE-([place]-confined to bed) 2395.212 Kcal/Kg value to use for calculation 20 Approximate Energy Requirements Using 2038 kcal/Kg Calculation Used for Recommendations Kcal/kg Additional Notes Protein Needs: 103-172g (1.2- 2g/kg) Fluid Needs: 1 ml/kcal Nutrition Intervention Nutrition Support: Nepro 1.2 at 50 ml/hr. Water flush of 200 mls q 4 hrs . Kcal 2,160 Protein (gm) 97 Fluid (mL) 872 Goal #1 Continue to meet at least 80% of calorie and protein needs via TF Anticipated Discharge Needs: Unable to determine at this time Follow-Up By: 11/30/18 Additional Comments Follow for TF tolerance
--- NOTE | 2018-11-25 20:43 | Vascular Lab Report ---
PROCEDURE: US BILATERAL LOWER EXTREMITY VENOUS DUPLEX DOPPLER TECHNIQUE: Duplex Doppler ultrasound of the BILATERAL common and superficial femoral, popliteal, pos terior tibial and proximal deep femoral and greater saphenous veins was attempted. Huang scale imaging with and without compression, spectral waveform analysis with and without augmentation, and color fl ow Doppler were employed. CPT 31855 HISTORY: COMPARISONS: None . FINDINGS: RIGHT LOWER EXTREMITY: Deep Venous Thrombus: None . Soft tissue abnormality: None . Other: None . LEFT LOWER EXTREMITY: Deep Venous Thrombus: None . Soft tissue abnormality: None . Other: None . IMPRESSION: No evidence of deep venous thrombosis . This document is electronically signed by Omero White MD., November 25 2018 08:41:27 PM ET
[2018-11-25] MEDS ORDERED: LANTUS SUB-Q SCH (22:00)
[2018-11-26] MEDS: HumaLOG SUB-Q SCH ×4 (00:20→17:41)
[2018-11-26] MEDS: LOPRESSOR PO SCH ×3 (04:16→15:36)
[2018-11-26 05:33] LABS: Basophils # (Auto) 0.1 K/mm3 (0.0-0.1); Basophils % (Auto) 0.8 % (0.0-1.8); Eosinophils % (Auto) 0.5 % (0.0-4.3); Hematocrit 23.8 % (35.5-45.6); Hemoglobin 7.9 gm/dl (11.8-15.2); Lymphocytes # (Auto) 1.3 K/mm3 (1.2-5.4); Lymphocytes % (Auto) 13.1 % (13.4-35.0); Mean Corpuscular HGB Conc 33 % (32-34); Mean Corpuscular Volume 91 fl (84-94); Monocytes # (Auto) 0.9 K/mm3 (0.0-0.8); Monocytes % (Auto) 9.6 % (0.0-7.3); Platelet Count 523 K/mm3 (140-440); Red Blood Count 2.63 M/mm3 (3.65-5.03); Red Cell Distribution Width 14.3 % (13.2-15.2)
[2018-11-26 05:39] LABS: Calcium 9.6 mg/dL (8.4-10.2)
[2018-11-26] MEDS ORDERED: HumuLIN R SUB-Q ONE (05:54)
[2018-11-26] MEDS: APRESOLINE PO SCH ×2 (05:55→14:30)
[2018-11-26] MEDS ORDERED: LANTUS SUB-Q SCH ×3 (08:00→22:00)
[2018-11-26 09:03] LABS: Calcium 9.4 mg/dL (8.4-10.2)
--- NOTE | 2018-11-26 09:05 | Progress Note ---
Assessment and Plan Acute hypoxemic respiratory failure, on mechanical ventilator support. s/p Tracheosotmy Oropharyngeal dysphagia, s/p PEG Diabetic ketoacidosis. Severe metabolic acidosis. Severe sepsis with shock. Acute encephalopathy that appears to be toxic metabolic. End-stage renal disease, on dialysis. Hyperkalemia at presentation. Anemia that is macrocytic. Elevated serum transaminases Hypernatremia, improved Lactic acidosis. - trach care, airway clearance, secretion mangment -Weaning per protocol, PSV trials -Start ATP trials as tolerated and per protocol -Discontinue fentanyl infusion and start prn intermittent analgesia -Adjust insulin therapy for better glycemic control -goal blood glucose of 140-180 mg/dL - continue to wean supplemental oxygen to keep O2 sats > 90% - continue bronchodilators with pulmonary hygiene per RT - Lung protective strategies - VAP bundle addressed - continue HD/UF as tolerated for toxin and volume clearance - continue to avoid nephrotoxic agents, adjust all medications for CrCL -Aspiration precautions, keep HOB >40 - Maintenance of sleep -wake cycle - Mobility protocol for pressure ulcer prevention - continue stress ulcer prophylaxis - Influenza and pneumonia vaccination per protocol PROGNOSIS: GUARDED CONDITION: CRITICAL CODE STATUS: FULL CODE Subjective Date of service: 11/26/18 Principal diagnosis: Ac hypoxemic resp failure; DKA; Severe sepsis with shock; ESRD on dialysis Interval history: Patient is seen today for: Acute hypoxemic respiratory failure on MVS; DKA; Severe metabolic acidosis; Severe sepsis with shock; Acute encephalopathy that appears to be toxic metabolic; ESRD on dialysis; DM II; Peripheral vascular disease. Seen and examined at bedside; 24hour events reviewed; nursing and respiratory care staff consulted; no adverse overnight events reported to me; remains on MVS; AMS is persistent, but opens eyes on verbal and tactile stimulation, s/p trach and PEG , mother at the bedside, tolerating PSV trials Objective Vital Signs - 12hr 11/25/18 11/25/18 11/25/18 21:17 21:30 22:00 Temperature Pulse Rate 107 H 107 H 106 H Respiratory 23 14 18 Rate Blood Pressure 173/86 157/76 157/75 O2 Sat by Pulse 100 100 100 Oximetry O2 Sat by Pulse Oximetry [ Assessment] 11/25/18 11/25/18 11/25/18 22:03 22:04 22:30 Temperature Pulse Rate 104 H 103 H 101 H Respiratory 33 H Rate Blood Pressure 157/75 157/75 119/63 O2 Sat by Pulse 100 Oximetry O2 Sat by Pulse Oximetry [ Assessment] 11/25/18 11/25/18 11/25/18 23:01 23:30 23:51 Temperature Pulse Rate 99 H 102 H 101 H Respiratory 20 37 H Rate Blood Pressure 154/74 159/81 170/92 O2 Sat by Pulse 100 100 100 Oximetry O2 Sat by Pulse Oximetry [ Assessment] 11/26/18 11/26/18 11/26/18 00:00 00:30 01:00 Temperature 99.0 F Pulse Rate 103 H 100 H 98 H Respiratory 18 15 29 H Rate Blood Pressure 170/92 164/85 139/59 O2 Sat by Pulse 100 100 100 Oximetry O2 Sat by Pulse Oximetry [ Assessment] 11/26/18 11/26/18 11/26/18 01:30 02:00 02:30 Temperature Pulse Rate 99 H 99 H 98 H Respiratory 21 20 20 Rate Blood Pressure 137/72 128/69 130/68 O2 Sat by Pulse 100 100 100 Oximetry O2 Sat by Pulse Oximetry [ Assessment] 11/26/18 11/26/18 11/26/18 03:00 03:30 03:34 Temperature 99.8 F H Pulse Rate 100 H 99 H Respiratory 20 20 Rate Blood Pressure 143/82 127/72 O2 Sat by Pulse 99 100 Oximetry O2 Sat by Pulse Oximetry [ Assessment] 11/26/18 11/26/18 11/26/18 04:00 04:16 04:21 Temperature Pulse Rate 98 H 99 H 101 H Respiratory 20 Rate Blood Pressure 122/71 132/72 132/72 O2 Sat by Pulse 100 100 Oximetry O2 Sat by Pulse Oximetry [ Assessment] 11/26/18 11/26/18 11/26/18 04:24 04:30 05:00 Temperature Pulse Rate 100 H 95 H Respiratory 21 24 Rate Blood Pressure 145/79 129/68 O2 Sat by Pulse 100 100 Oximetry O2 Sat by Pulse 100 Oximetry [ Assessment] 11/26/18 11/26/18 11/26/18 05:30 05:55 06:01 Temperature Pulse Rate 94 H 97 H 101 H Respiratory 20 15 Rate Blood Pressure 132/64 148/76 151/82 O2 Sat by Pulse 99 100 Oximetry O2 Sat by Pulse Oximetry [ Assessment] 11/26/18 11/26/18 11/26/18 06:30 07:00 07:08 Temperature Pulse Rate 101 H 104 H Respiratory 25 H 17 Rate Blood Pressure 139/73 144/81 O2 Sat by Pulse 99 99 100 Oximetry O2 Sat by Pulse Oximetry [ Assessment] 11/26/18 11/26/18 11/26/18 07:31 08:00 08:01 Temperature 100.5 F H Pulse Rate 105 H 103 H 106 H Respiratory 12 9 L Rate Blood Pressure 182/94 172/92 O2 Sat by Pulse 100 100 Oximetry O2 Sat by Pulse Oximetry [ Assessment] 11/26/18 08:30 Temperature Pulse Rate 102 H Respiratory 18 Rate Blood Pressure 160/85 O2 Sat by Pulse 100 Oximetry O2 Sat by Pulse Oximetry [ Assessment] Constitutional: no acute distress, other (middle aged AAM, normocephalic and atraumatic on MVS s/p tracheostomy) Eyes: non-icteric ENT: oropharynx moist, other (s/p tracheostomy) Neck: supple, no lymphadenopathy, no JVD Effort: normal Ascultation: Bilateral: clear, diminished breath sounds, rhonchi Percussion: Bilateral: not dull Cardiovascular: regular rate and rhythm, other (S1,S2, no murmurs, gallops or rubs) Gastrointestinal: normoactive bowel sounds, soft, non-tender, non-distended Integumentary: rash Extremities: no cyanosis, pulses normal, no ischemia or petechiae, edema Neurologic: pupils equal and round (minimally reactive), unable to assess, other Psychiatric: other (unable to assess re: AMS) CBC and BMP: 11/26/18 04:34 11/26/18 08:30 ABG, PT/INR, D-dimer: ABG POC ABG pH 7.503 (7.35-7.45) H 11/24/18 15:03 POC ABG pCO2 40.6 (35-45) 11/24/18 15:03 POC ABG pO2 146 (80-105) H 11/24/18 15:03 POC ABG HCO3 31.9 (22-26 mml/L) 11/24/18 15:03 POC ABG Total CO2 33 (23-27mmol/L) 11/24/18 15:03 POC ABG O2 Sat 99 11/24/18 15:03 Abnormal lab findings: Abnormal Labs 11/06/18 11/06/18 11/06/18 08:22 09:02 09:02 WBC 20.1 H RBC 3.40 L Hgb 10.5 L Hct MCV 119 H MCHC 26 L RDW 15.7 H Plt Count Lymph % (Auto) [place] % (Auto) Lymph # [place] # Seg Neutrophils % 80.1 H Seg Neuts % (Manual) 76.0 H Lymphocytes % (Manual) 4.0 L Monocytes % (Manual) Nucleated RBC % 1.0 H Seg Neutrophils # 16.1 H Seg Neutrophils # Man 15.3 H Lymphocytes # (Manual) 0.8 L Monocytes # (Manual) POC ABG pH POC ABG pCO2 POC ABG pO2 VBG pH Sodium 129 L Potassium 7.7 H* Chloride 79.7 L Carbon Dioxide 4 L* BUN 93 H Creatinine 7.4 H Glucose 1469 H* POC Glucose > 500 H Hemoglobin A1c Lactic Acid Calcium Phosphorus Magnesium Direct Bilirubin AST 2679 H ALT 1175 H C-Reactive Protein Total Protein 6.1 L Albumin 2.9 L Urine WBC (Auto) Salicylates Acetaminophen Heparin-induced Plt Ab 11/06/18 11/06/18 11/06/18 09:02 09:02 09:02 WBC RBC Hgb Hct MCV MCHC RDW Plt Count Lymph % (Auto) [place] % (Auto) Lymph # [place] # Seg Neutrophils % Seg Neuts % (Manual) Lymphocytes % (Manual) Monocytes % (Manual) Nucleated RBC % Seg Neutrophils # Seg Neutrophils # Man Lymphocytes # (Manual) Monocytes # (Manual) POC ABG pH POC ABG pCO2 POC ABG pO2 VBG pH Sodium Potassium Chloride Carbon Dioxide BUN Creatinine Glucose POC Glucose Hemoglobin A1c Lactic Acid 9.40 H* Calcium Phosphorus Magnesium Direct Bilirubin AST ALT C-Reactive Protein Total Protein Albumin Urine WBC (Auto) Salicylates < 0.3 L Acetaminophen < 5.0 L Heparin-induced Plt Ab 11/06/18 11/06/18 11/06/18 09:03 10:19 10:19 WBC RBC Hgb Hct MCV MCHC RDW Plt Count Lymph % (Auto) [place] % (Auto) Lymph # [place] # Seg Neutrophils % Seg Neuts % (Manual) Lymphocytes % (Manual) Monocytes % (Manual) Nucleated RBC % Seg Neutrophils # Seg Neutrophils # Man Lymphocytes # (Manual) Monocytes # (Manual) POC ABG pH 6.841 L POC ABG pCO2 POC ABG pO2 VBG pH Sodium 131 L Potassium 8.9 H* Chloride 85.3 L Carbon Dioxide 6 L* BUN 90 H Creatinine 7.1 H Glucose 1353 H* POC Glucose Hemoglobin A1c Lactic Acid Calcium 7.8 L Phosphorus 14.50 H Magnesium 2.70 H Direct Bilirubin AST ALT C-Reactive Protein Total Protein Albumin Urine WBC (Auto) Salicylates Acetaminophen Heparin-induced Plt Ab 11/06/18 11/06/18 11/06/18 12:07 13:22 13:22 WBC RBC Hgb Hct MCV MCHC RDW Plt Count Lymph % (Auto) [place] % (Auto) Lymph # [place] # Seg Neutrophils % Seg Neuts % (Manual) Lymphocytes % (Manual) Monocytes % (Manual) Nucleated RBC % Seg Neutrophils # Seg Neutrophils # Man Lymphocytes # (Manual) Monocytes # (Manual) POC ABG pH POC ABG pCO2 POC ABG pO2 VBG pH 6.982 L* Sodium 135 L Potassium 7.0 H* D Chloride 88.4 L Carbon Dioxide 5 L* BUN 89 H Creatinine 7.2 H Glucose 1326 H* POC Glucose Hemoglobin A1c Lactic Acid 8.50 H* Calcium Phosphorus Magnesium Direct Bilirubin AST ALT C-Reactive Protein Total Protein Albumin Urine WBC (Auto) Salicylates Acetaminophen Heparin-induced Plt Ab 11/06/18 11/06/18 11/06/18 14:15 14:15 15:21 WBC RBC Hgb Hct MCV MCHC RDW Plt Count Lymph % (Auto) [place] % (Auto) Lymph # [place] # Seg Neutrophils % Seg Neuts % (Manual) Lymphocytes % (Manual) Monocytes % (Manual) Nucleated RBC % Seg Neutrophils # Seg Neutrophils # Man Lymphocytes # (Manual) Monocytes # (Manual) POC ABG pH POC ABG pCO2 POC ABG pO2 VBG pH Sodium Potassium 6.6 H* 6.0 H Chloride 95.3 L 93.3 L Carbon Dioxide 4 L* 6 L* BUN 83 H 91 H Creatinine 6.9 H 7.3 H Glucose 1205 H* 1174 H* POC Glucose Hemoglobin A1c Lactic Acid Calcium 8.2 L Phosphorus 13.00 H Magnesium 2.60 H Direct Bilirubin AST ALT C-Reactive Protein Total Protein Albumin Urine WBC (Auto) Salicylates Acetaminophen Heparin-induced Plt Ab 11/06/18 11/06/18 11/06/18 15:21 16:14 16:33 WBC RBC Hgb Hct MCV MCHC RDW Plt Count Lymph % (Auto) [place] % (Auto) Lymph # [place] # Seg Neutrophils % Seg Neuts % (Manual) Lymphocytes % (Manual) Monocytes % (Manual) Nucleated RBC % Seg Neutrophils # Seg Neutrophils # Man Lymphocytes # (Manual) Monocytes # (Manual) POC ABG pH 7.004 L POC ABG pCO2 33.0 L POC ABG pO2 178 H VBG pH Sodium Potassium Chloride Carbon Dioxide BUN Creatinine Glucose POC Glucose > 500 H Hemoglobin A1c Lactic Acid 7.60 H* Calcium Phosphorus Magnesium Direct Bilirubin AST ALT C-Reactive Protein Total Protein Albumin Urine WBC (Auto) Salicylates Acetaminophen Heparin-induced Plt Ab 11/06/18 11/06/18 11/06/18 17:34 19:30 19:30 WBC RBC Hgb Hct MCV MCHC RDW Plt Count Lymph % (Auto) [place] % (Auto) Lymph # [place] # Seg Neutrophils % Seg Neuts % (Manual) Lymphocytes % (Manual) Monocytes % (Manual) Nucleated RBC % Seg Neutrophils # Seg Neutrophils # Man Lymphocytes # (Manual) Monocytes # (Manual) POC ABG pH POC ABG pCO2 POC ABG pO2 VBG pH Sodium Potassium 5.5 H Chloride 97.4 L 97.7 L Carbon Dioxide 10 L 11 L BUN 88 H 87 H Creatinine 7.5 H 7.6 H Glucose 1054 H* 954 H* POC Glucose Hemoglobin A1c Lactic Acid Calcium 7.7 L 7.4 L Phosphorus Magnesium Direct Bilirubin AST ALT C-Reactive Protein 1.90 H Total Protein Albumin Urine WBC (Auto) Salicylates Acetaminophen Heparin-induced Plt Ab 11/06/18 11/06/18 11/06/18 20:31 20:40 20:40 WBC RBC Hgb Hct MCV MCHC RDW Plt Count Lymph % (Auto) [place] % (Auto) Lymph # [place] # Seg Neutrophils % Seg Neuts % (Manual) Lymphocytes % (Manual) Monocytes % (Manual) Nucleated RBC % Seg Neutrophils # Seg Neutrophils # Man Lymphocytes # (Manual) Monocytes # (Manual) POC ABG pH 7.245 L POC ABG pCO2 POC ABG pO2 132 H VBG pH Sodium Potassium Chloride Carbon Dioxide BUN Creatinine Glucose 907 H* POC Glucose Hemoglobin A1c Lactic Acid 4.40 H* Calcium Phosphorus Magnesium Direct Bilirubin AST ALT C-Reactive Protein Total Protein Albumin Urine WBC (Auto) Salicylates Acetaminophen Heparin-induced Plt Ab 11/06/18 11/06/18 11/06/18 22:05 22:40 23:35 WBC RBC Hgb Hct MCV MCHC RDW Plt Count Lymph % (Auto) [place] % (Auto) Lymph # [place] # Seg Neutrophils % Seg Neuts % (Manual) Lymphocytes % (Manual) Monocytes % (Manual) Nucleated RBC % Seg Neutrophils # Seg Neutrophils # Man Lymphocytes # (Manual) Monocytes # (Manual) POC ABG pH POC ABG pCO2 POC ABG pO2 VBG pH Sodium Potassium Chloride Carbon Dioxide 13 L BUN 86 H Creatinine 7.8 H Glucose 822 H* 726 H* POC Glucose Hemoglobin A1c Lactic Acid 3.40 H* Calcium 7.5 L Phosphorus Magnesium Direct Bilirubin AST ALT C-Reactive Protein Total Protein Albumin Urine WBC (Auto) Salicylates Acetaminophen Heparin-induced Plt Ab 11/07/18 11/07/18 11/07/18 01:25 01:26 03:15 WBC RBC Hgb Hct MCV MCHC RDW Plt Count Lymph % (Auto) [place] % (Auto) Lymph # [place] # Seg Neutrophils % Seg Neuts % (Manual) Lymphocytes % (Manual) Monocytes % (Manual) Nucleated RBC % Seg Neutrophils # Seg Neutrophils # Man Lymphocytes # (Manual) Monocytes # (Manual) POC ABG pH POC ABG pCO2 POC ABG pO2 VBG pH Sodium Potassium Chloride Carbon Dioxide BUN Creatinine Glucose 602 H* POC Glucose > 500 H > 500 H Hemoglobin A1c Lactic Acid Calcium Phosphorus Magnesium Direct Bilirubin AST ALT C-Reactive Protein Total Protein Albumin Urine WBC (Auto) Salicylates Acetaminophen Heparin-induced Plt Ab 11/07/18 11/07/18 11/07/18 03:20 04:32 04:47 WBC RBC Hgb Hct MCV MCHC RDW Plt Count Lymph % (Auto) [place] % (Auto) Lymph # [place] # Seg Neutrophils % Seg Neuts % (Manual) Lymphocytes % (Manual) Monocytes % (Manual) Nucleated RBC % Seg Neutrophils # Seg Neutrophils # Man Lymphocytes # (Manual) Monocytes # (Manual) POC ABG pH POC ABG pCO2 30.3 L POC ABG pO2 153 H VBG pH Sodium 149 H Potassium Chloride Carbon Dioxide 16 L BUN 86 H Creatinine 8.3 H Glucose 499.2 H POC Glucose 360 H Hemoglobin A1c Lactic Acid Calcium 7.6 L Phosphorus Magnesium Direct Bilirubin AST ALT C-Reactive Protein Total Protein Albumin Urine WBC (Auto) Salicylates Acetaminophen Heparin-induced Plt Ab 11/07/18 11/07/18 11/07/18 05:26 06:35 06:36 WBC RBC Hgb Hct MCV MCHC RDW Plt Count Lymph % (Auto) [place] % (Auto) Lymph # [place] # Seg Neutrophils % Seg Neuts % (Manual) Lymphocytes % (Manual) Monocytes % (Manual) Nucleated RBC % Seg Neutrophils # Seg Neutrophils # Man Lymphocytes # (Manual) Monocytes # (Manual) POC ABG pH POC ABG pCO2 POC ABG pO2 VBG pH Sodium 153 H Potassium 3.2 L Chloride 109.7 H Carbon Dioxide BUN 84 H Creatinine 8.6 H Glucose 249 H POC Glucose 341 H 274 H Hemoglobin A1c Lactic Acid Calcium 7.6 L Phosphorus Magnesium Direct Bilirubin AST ALT C-Reactive Protein Total Protein Albumin Urine WBC (Auto) Salicylates Acetaminophen Heparin-induced Plt Ab 11/07/18 11/07/18 11/07/18 07:33 09:00 09:52 WBC RBC Hgb Hct MCV MCHC RDW Plt Count Lymph % (Auto) [place] % (Auto) Lymph # [place] # Seg Neutrophils % Seg Neuts % (Manual) Lymphocytes % (Manual) Monocytes % (Manual) Nucleated RBC % Seg Neutrophils # Seg Neutrophils # Man Lymphocytes # (Manual) Monocytes # (Manual) POC ABG pH POC ABG pCO2 POC ABG pO2 VBG pH Sodium Potassium Chloride Carbon Dioxide BUN Creatinine Glucose POC Glucose 243 H 182 H 227 H Hemoglobin A1c Lactic Acid Calcium Phosphorus Magnesium Direct Bilirubin AST ALT C-Reactive Protein Total Protein Albumin Urine WBC (Auto) Salicylates Acetaminophen Heparin-induced Plt Ab 11/07/18 11/07/18 11/07/18 10:50 10:50 10:50 WBC 11.3 H RBC 2.85 L Hgb 8.7 L Hct 25.3 L D MCV MCHC RDW Plt Count Lymph % (Auto) 9.7 L [place] % (Auto) Lymph # 1.1 L [place] # Seg Neutrophils % 83.3 H Seg Neuts % (Manual) Lymphocytes % (Manual) Monocytes % (Manual) Nucleated RBC % Seg Neutrophils # 9.4 H Seg Neutrophils # Man Lymphocytes # (Manual) Monocytes # (Manual) POC ABG pH POC ABG pCO2 POC ABG pO2 VBG pH Sodium 154 H Potassium 3.2 L Chloride 110.2 H Carbon Dioxide BUN 82 H Creatinine 8.3 H Glucose 186 H POC Glucose 200 H Hemoglobin A1c Lactic Acid Calcium 7.3 L Phosphorus Magnesium Direct Bilirubin AST ALT C-Reactive Protein Total Protein Albumin Urine WBC (Auto) Salicylates Acetaminophen Heparin-induced Plt Ab 11/07/18 11/07/18 11/07/18 12:00 12:05 13:13 WBC RBC Hgb Hct MCV MCHC RDW Plt Count Lymph % (Auto) [place] % (Auto) Lymph # [place] # Seg Neutrophils % Seg Neuts % (Manual) Lymphocytes % (Manual) Monocytes % (Manual) Nucleated RBC % Seg Neutrophils # Seg Neutrophils # Man Lymphocytes # (Manual) Monocytes # (Manual) POC ABG pH POC ABG pCO2 POC ABG pO2 VBG pH Sodium Potassium Chloride Carbon Dioxide BUN Creatinine Glucose POC Glucose 179 H 190 H Hemoglobin A1c Lactic Acid 2.50 H* Calcium Phosphorus Magnesium Direct Bilirubin AST ALT C-Reactive Protein Total Protein Albumin Urine WBC (Auto) Salicylates Acetaminophen Heparin-induced Plt Ab 11/07/18 11/07/18 11/07/18 13:20 14:05 15:18 WBC RBC Hgb Hct MCV MCHC RDW Plt Count Lymph % (Auto) [place] % (Auto) Lymph # [place] # Seg Neutrophils % Seg Neuts % (Manual) Lymphocytes % (Manual) Monocytes % (Manual) Nucleated RBC % Seg Neutrophils # Seg Neutrophils # Man Lymphocytes # (Manual) Monocytes # (Manual) POC ABG pH POC ABG pCO2 POC ABG pO2 VBG pH Sodium Potassium 3.1 L Chloride Carbon Dioxide BUN 50 H Creatinine 5.0 H Glucose 176 H POC Glucose 189 H 215 H Hemoglobin A1c Lactic Acid Calcium 7.4 L Phosphorus Magnesium Direct Bilirubin AST ALT C-Reactive Protein Total Protein Albumin Urine WBC (Auto) Salicylates Acetaminophen Heparin-induced Plt Ab 11/07/18 11/07/18 11/07/18 16:25 17:37 23:23 WBC RBC Hgb Hct MCV MCHC RDW Plt Count Lymph % (Auto) [place] % (Auto) Lymph # [place] # Seg Neutrophils % Seg Neuts % (Manual) Lymphocytes % (Manual) Monocytes % (Manual) Nucleated RBC % Seg Neutrophils # Seg Neutrophils # Man Lymphocytes # (Manual) Monocytes # (Manual) POC ABG pH POC ABG pCO2 POC ABG pO2 VBG pH Sodium Potassium Chloride Carbon Dioxide BUN Creatinine Glucose POC Glucose 180 H 215 H 234 H Hemoglobin A1c Lactic Acid Calcium Phosphorus Magnesium Direct Bilirubin AST ALT C-Reactive Protein Total Protein Albumin Urine WBC (Auto) Salicylates Acetaminophen Heparin-induced Plt Ab 11/08/18 11/08/18 11/08/18 04:17 04:23 04:23 WBC RBC 2.98 L Hgb 9.3 L Hct 26.7 L MCV MCHC 35 H RDW Plt Count 130 L Lymph % (Auto) [place] % (Auto) Lymph # [place] # Seg Neutrophils % 80.3 H Seg Neuts % (Manual) Lymphocytes % (Manual) Monocytes % (Manual) Nucleated RBC % Seg Neutrophils # 7.8 H Seg Neutrophils # Man Lymphocytes # (Manual) Monocytes # (Manual) POC ABG pH 7.520 H POC ABG pCO2 POC ABG pO2 111 H VBG pH Sodium Potassium 3.0 L Chloride Carbon Dioxide BUN 44 H Creatinine 6.3 H Glucose 245 H POC Glucose Hemoglobin A1c Lactic Acid Calcium 7.3 L Phosphorus Magnesium Direct Bilirubin AST ALT C-Reactive Protein Total Protein Albumin Urine WBC (Auto) Salicylates Acetaminophen Heparin-induced Plt Ab 11/08/18 11/08/18 11/08/18 05:19 08:00 08:00 WBC RBC Hgb Hct MCV MCHC RDW Plt Count Lymph % (Auto) [place] % (Auto) Lymph # [place] # Seg Neutrophils % Seg Neuts % (Manual) Lymphocytes % (Manual) Monocytes % (Manual) Nucleated RBC % Seg Neutrophils # Seg Neutrophils # Man Lymphocytes # (Manual) Monocytes # (Manual) POC ABG pH POC ABG pCO2 POC ABG pO2 VBG pH Sodium Potassium Chloride Carbon Dioxide BUN Creatinine Glucose POC Glucose 253 H Hemoglobin A1c Lactic Acid 2.70 H* Calcium Phosphorus Magnesium Direct Bilirubin 0.3 H AST 932 H ALT 582 H C-Reactive Protein Total Protein 5.4 L Albumin 2.6 L Urine WBC (Auto) Salicylates Acetaminophen Heparin-induced Plt Ab 11/08/18 11/08/18 11/08/18 11:36 17:51 21:59 WBC RBC Hgb Hct MCV MCHC RDW Plt Count Lymph % (Auto) [place] % (Auto) Lymph # [place] # Seg Neutrophils % Seg Neuts % (Manual) Lymphocytes % (Manual) Monocytes % (Manual) Nucleated RBC % Seg Neutrophils # Seg Neutrophils # Man Lymphocytes # (Manual) Monocytes # (Manual) POC ABG pH 7.459 H POC ABG pCO2 POC ABG pO2 108 H VBG pH Sodium Potassium Chloride Carbon Dioxide BUN Creatinine Glucose POC Glucose 197 H Hemoglobin A1c Lactic Acid Calcium Phosphorus Magnesium Direct Bilirubin AST ALT C-Reactive Protein Total Protein Albumin Urine WBC (Auto) Salicylates Acetaminophen Heparin-induced Plt Ab Positive H 11/08/18 11/09/18 11/09/18 23:28 00:39 02:20 WBC RBC Hgb Hct MCV MCHC RDW Plt Count Lymph % (Auto) [place] % (Auto) Lymph # [place] # Seg Neutrophils % Seg Neuts % (Manual) Lymphocytes % (Manual) Monocytes % (Manual) Nucleated RBC % Seg Neutrophils # Seg Neutrophils # Man Lymphocytes # (Manual) Monocytes # (Manual) POC ABG pH POC ABG pCO2 POC ABG pO2 VBG pH Sodium Potassium Chloride Carbon Dioxide BUN Creatinine Glucose POC Glucose 418 H 471 H 254 H Hemoglobin A1c Lactic Acid Calcium Phosphorus Magnesium Direct Bilirubin AST ALT C-Reactive Protein Total Protein Albumin Urine WBC (Auto) Salicylates Acetaminophen Heparin-induced Plt Ab 11/09/18 11/09/18 11/09/18 03:48 06:02 06:02 WBC RBC 2.95 L Hgb 9.2 L Hct 26.7 L MCV MCHC RDW Plt Count 101 L Lymph % (Auto) [place] % (Auto) Lymph # [place] # Seg Neutrophils % Seg Neuts % (Manual) Lymphocytes % (Manual) Monocytes % (Manual) Nucleated RBC % Seg Neutrophils # Seg Neutrophils # Man Lymphocytes # (Manual) Monocytes # (Manual) POC ABG pH POC ABG pCO2 POC ABG pO2 108 H VBG pH Sodium 150 H Potassium Chloride 108.3 H Carbon Dioxide BUN 44 H Creatinine 7.7 H Glucose 102 H POC Glucose Hemoglobin A1c Lactic Acid Calcium 7.2 L Phosphorus Magnesium Direct Bilirubin AST 554 H ALT 461 H C-Reactive Protein Total Protein 5.1 L Albumin 2.6 L Urine WBC (Auto) Salicylates Acetaminophen Heparin-induced Plt Ab 11/09/18 11/09/18 11/09/18 17:49 18:49 23:32 WBC RBC Hgb Hct MCV MCHC RDW Plt Count Lymph % (Auto) [place] % (Auto) Lymph # [place] # Seg Neutrophils % Seg Neuts % (Manual) Lymphocytes % (Manual) Monocytes % (Manual) Nucleated RBC % Seg Neutrophils # Seg Neutrophils # Man Lymphocytes # (Manual) Monocytes # (Manual) POC ABG pH POC ABG pCO2 46.2 H POC ABG pO2 VBG pH Sodium Potassium Chloride Carbon Dioxide BUN Creatinine Glucose POC Glucose 184 H 150 H Hemoglobin A1c Lactic Acid Calcium Phosphorus Magnesium Direct Bilirubin AST ALT C-Reactive Protein Total Protein Albumin Urine WBC (Auto) Salicylates Acetaminophen Heparin-induced Plt Ab 11/10/18 11/10/18 11/10/18 02:52 05:00 05:00 WBC RBC 2.95 L Hgb 8.9 L Hct 26.6 L MCV MCHC RDW Plt Count 100 L Lymph % (Auto) [place] % (Auto) Lymph # [place] # Seg Neutrophils % Seg Neuts % (Manual) Lymphocytes % (Manual) Monocytes % (Manual) 8.0 H Nucleated RBC % Seg Neutrophils # Seg Neutrophils # Man Lymphocytes # (Manual) Monocytes # (Manual) POC ABG pH POC ABG pCO2 POC ABG pO2 VBG pH Sodium Potassium Chloride Carbon Dioxide BUN 33 H Creatinine 6.8 H Glucose 251 H POC Glucose 186 H Hemoglobin A1c Lactic Acid Calcium 7.3 L Phosphorus Magnesium Direct Bilirubin AST ALT C-Reactive Protein Total Protein Albumin Urine WBC (Auto) Salicylates Acetaminophen Heparin-induced Plt Ab 11/10/18 11/10/18 11/10/18 05:16 11:47 17:32 WBC RBC Hgb Hct MCV MCHC RDW Plt Count Lymph % (Auto) [place] % (Auto) Lymph # [place] # Seg Neutrophils % Seg Neuts % (Manual) Lymphocytes % (Manual) Monocytes % (Manual) Nucleated RBC % Seg Neutrophils # Seg Neutrophils # Man Lymphocytes # (Manual) Monocytes # (Manual) POC ABG pH POC ABG pCO2 POC ABG pO2 VBG pH Sodium Potassium Chloride Carbon Dioxide BUN Creatinine Glucose POC Glucose 242 H 261 H 194 H Hemoglobin A1c Lactic Acid Calcium Phosphorus Magnesium Direct Bilirubin AST ALT C-Reactive Protein Total Protein Albumin Urine WBC (Auto) Salicylates Acetaminophen Heparin-induced Plt Ab 11/10/18 11/11/18 11/11/18 23:39 00:26 04:24 WBC RBC 2.98 L Hgb 9.1 L Hct 27.4 L MCV MCHC RDW Plt Count 114 L Lymph % (Auto) [place] % (Auto) Lymph # [place] # Seg Neutrophils % Seg Neuts % (Manual) Lymphocytes % (Manual) Monocytes % (Manual) 10.0 H Nucleated RBC % Seg Neutrophils # Seg Neutrophils # Man Lymphocytes # (Manual) Monocytes # (Manual) 1.0 H POC ABG pH POC ABG pCO2 POC ABG pO2 VBG pH Sodium Potassium Chloride Carbon Dioxide BUN Creatinine Glucose POC Glucose 60 L 124 H Hemoglobin A1c Lactic Acid Calcium Phosphorus Magnesium Direct Bilirubin AST ALT C-Reactive Protein Total Protein Albumin Urine WBC (Auto) Salicylates Acetaminophen Heparin-induced Plt Ab 11/11/18 11/11/18 11/11/18 04:24 05:27 05:31 WBC RBC Hgb Hct MCV MCHC RDW Plt Count Lymph % (Auto) [place] % (Auto) Lymph # [place] # Seg Neutrophils % Seg Neuts % (Manual) Lymphocytes % (Manual) Monocytes % (Manual) Nucleated RBC % Seg Neutrophils # Seg Neutrophils # Man Lymphocytes # (Manual) Monocytes # (Manual) POC ABG pH POC ABG pCO2 48.8 H POC ABG pO2 109 H VBG pH Sodium Potassium Chloride Carbon Dioxide BUN 23 H Creatinine 5.5 H Glucose 147 H POC Glucose 172 H Hemoglobin A1c Lactic Acid Calcium 7.9 L Phosphorus Magnesium Direct Bilirubin AST 152 H ALT 247 H C-Reactive Protein Total Protein Albumin 2.3 L Urine WBC (Auto) Salicylates Acetaminophen Heparin-induced Plt Ab 11/11/18 11/11/18 11/11/18 12:11 17:12 23:41 WBC RBC Hgb Hct MCV MCHC RDW Plt Count Lymph % (Auto) [place] % (Auto) Lymph # [place] # Seg Neutrophils % Seg Neuts % (Manual) Lymphocytes % (Manual) Monocytes % (Manual) Nucleated RBC % Seg Neutrophils # Seg Neutrophils # Man Lymphocytes # (Manual) Monocytes # (Manual) POC ABG pH POC ABG pCO2 POC ABG pO2 VBG pH Sodium Potassium Chloride Carbon Dioxide BUN Creatinine Glucose POC Glucose 343 H 188 H 145 H Hemoglobin A1c Lactic Acid Calcium Phosphorus Magnesium Direct Bilirubin AST ALT C-Reactive Protein Total Protein Albumin Urine WBC (Auto) Salicylates Acetaminophen Heparin-induced Plt Ab 11/12/18 11/12/18 11/12/18 00:11 04:44 04:44 WBC RBC 2.91 L Hgb 9.0 L Hct 26.9 L MCV MCHC RDW Plt Count Lymph % (Auto) 12.7 L [place] % (Auto) 14.9 H Lymph # 0.8 L [place] # 1.0 H Seg Neutrophils % 71.2 H Seg Neuts % (Manual) Lymphocytes % (Manual) Monocytes % (Manual) Nucleated RBC % Seg Neutrophils # Seg Neutrophils # Man Lymphocytes # (Manual) Monocytes # (Manual) POC ABG pH POC ABG pCO2 POC ABG pO2 VBG pH Sodium Potassium Chloride Carbon Dioxide BUN 22 H Creatinine 5.0 H Glucose 288 H POC Glucose 151 H Hemoglobin A1c Lactic Acid Calcium Phosphorus Magnesium Direct Bilirubin AST 88 H ALT 187 H C-Reactive Protein Total Protein Albumin 2.9 L Urine WBC (Auto) Salicylates Acetaminophen Heparin-induced Plt Ab 11/12/18 11/12/18 11/12/18 11:48 12:28 17:13 WBC RBC Hgb Hct MCV MCHC RDW Plt Count Lymph % (Auto) [place] % (Auto) Lymph # [place] # Seg Neutrophils % Seg Neuts % (Manual) Lymphocytes % (Manual) Monocytes % (Manual) Nucleated RBC % Seg Neutrophils # Seg Neutrophils # Man Lymphocytes # (Manual) Monocytes # (Manual) POC ABG pH POC ABG pCO2 POC ABG pO2 VBG pH Sodium Potassium Chloride Carbon Dioxide BUN Creatinine Glucose POC Glucose 414 H 437 H 251 H Hemoglobin A1c Lactic Acid Calcium Phosphorus Magnesium Direct Bilirubin AST ALT C-Reactive Protein Total Protein Albumin Urine WBC (Auto) Salicylates Acetaminophen Heparin-induced Plt Ab 11/13/18 11/13/18 11/13/18 00:43 04:14 04:14 WBC RBC 2.62 L Hgb 8.0 L Hct 24.0 L MCV MCHC RDW Plt Count Lymph % (Auto) [place] % (Auto) 15.8 H Lymph # [place] # 0.9 H Seg Neutrophils % Seg Neuts % (Manual) Lymphocytes % (Manual) Monocytes % (Manual) Nucleated RBC % Seg Neutrophils # Seg Neutrophils # Man Lymphocytes # (Manual) Monocytes # (Manual) POC ABG pH POC ABG pCO2 POC ABG pO2 VBG pH Sodium Potassium Chloride Carbon Dioxide BUN 32 H Creatinine 6.9 H Glucose 190 H POC Glucose 149 H Hemoglobin A1c Lactic Acid Calcium Phosphorus Magnesium Direct Bilirubin AST ALT C-Reactive Protein Total Protein Albumin Urine WBC (Auto) Salicylates Acetaminophen Heparin-induced Plt Ab 11/13/18 11/13/18 11/13/18 05:53 10:40 12:05 WBC RBC Hgb Hct MCV MCHC RDW Plt Count Lymph % (Auto) [place] % (Auto) Lymph # [place] # Seg Neutrophils % Seg Neuts % (Manual) Lymphocytes % (Manual) Monocytes % (Manual) Nucleated RBC % Seg Neutrophils # Seg Neutrophils # Man Lymphocytes # (Manual) Monocytes # (Manual) POC ABG pH POC ABG pCO2 POC ABG pO2 VBG pH Sodium Potassium Chloride Carbon Dioxide BUN Creatinine Glucose POC Glucose 270 H 405 H 361 H Hemoglobin A1c Lactic Acid Calcium Phosphorus Magnesium Direct Bilirubin AST ALT C-Reactive Protein Total Protein Albumin Urine WBC (Auto) Salicylates Acetaminophen Heparin-induced Plt Ab 11/13/18 11/13/18 11/14/18 18:48 23:55 04:57 WBC RBC 2.75 L Hgb 8.3 L Hct 25.2 L MCV MCHC RDW Plt Count Lymph % (Auto) [place] % (Auto) 15.8 H Lymph # 0.9 L [place] # 0.9 H Seg Neutrophils % Seg Neuts % (Manual) Lymphocytes % (Manual) Monocytes % (Manual) Nucleated RBC % Seg Neutrophils # Seg Neutrophils # Man Lymphocytes # (Manual) Monocytes # (Manual) POC ABG pH POC ABG pCO2 POC ABG pO2 VBG pH Sodium Potassium Chloride Carbon Dioxide BUN Creatinine Glucose POC Glucose 202 H 254 H Hemoglobin A1c Lactic Acid Calcium Phosphorus Magnesium Direct Bilirubin AST ALT C-Reactive Protein Total Protein Albumin Urine WBC (Auto) Salicylates Acetaminophen Heparin-induced Plt Ab 11/14/18 11/14/18 11/14/18 04:57 05:33 11:37 WBC RBC Hgb Hct MCV MCHC RDW Plt Count Lymph % (Auto) [place] % (Auto) Lymph # [place] # Seg Neutrophils % Seg Neuts % (Manual) Lymphocytes % (Manual) Monocytes % (Manual) Nucleated RBC % Seg Neutrophils # Seg Neutrophils # Man Lymphocytes # (Manual) Monocytes # (Manual) POC ABG pH POC ABG pCO2 POC ABG pO2 VBG pH Sodium 136 L Potassium Chloride 96.7 L Carbon Dioxide BUN 25 H Creatinine 5.3 H Glucose 235 H POC Glucose 242 H 272 H Hemoglobin A1c Lactic Acid Calcium Phosphorus Magnesium Direct Bilirubin AST ALT C-Reactive Protein Total Protein Albumin Urine WBC (Auto) Salicylates Acetaminophen Heparin-induced Plt Ab 11/14/18 11/14/18 11/15/18 18:08 23:21 04:50 WBC RBC 2.76 L Hgb 8.5 L Hct 25.4 L MCV MCHC RDW Plt Count Lymph % (Auto) [place] % (Auto) 14.5 H Lymph # [place] # 1.1 H Seg Neutrophils % Seg Neuts % (Manual) Lymphocytes % (Manual) Monocytes % (Manual) Nucleated RBC % Seg Neutrophils # Seg Neutrophils # Man Lymphocytes # (Manual) Monocytes # (Manual) POC ABG pH POC ABG pCO2 POC ABG pO2 VBG pH Sodium Potassium Chloride Carbon Dioxide BUN Creatinine Glucose POC Glucose 166 H 185 H Hemoglobin A1c Lactic Acid Calcium Phosphorus Magnesium Direct Bilirubin AST ALT C-Reactive Protein Total Protein Albumin Urine WBC (Auto) Salicylates Acetaminophen Heparin-induced Plt Ab 11/15/18 11/15/18 11/15/18 04:50 04:50 06:01 WBC RBC Hgb Hct MCV MCHC RDW Plt Count Lymph % (Auto) [place] % (Auto) Lymph # [place] # Seg Neutrophils % Seg Neuts % (Manual) Lymphocytes % (Manual) Monocytes % (Manual) Nucleated RBC % Seg Neutrophils # Seg Neutrophils # Man Lymphocytes # (Manual) Monocytes # (Manual) POC ABG pH POC ABG pCO2 POC ABG pO2 VBG pH Sodium Potassium Chloride 95.2 L Carbon Dioxide BUN 21 H Creatinine 4.8 H Glucose 126 H POC Glucose 150 H Hemoglobin A1c 10.1 H Lactic Acid Calcium Phosphorus Magnesium Direct Bilirubin AST ALT 69 H C-Reactive Protein Total Protein Albumin 2.7 L Urine WBC (Auto) Salicylates Acetaminophen Heparin-induced Plt Ab 11/15/18 11/15/18 11/16/18 13:06 18:08 00:39 WBC RBC Hgb Hct MCV MCHC RDW Plt Count Lymph % (Auto) [place] % (Auto) Lymph # [place] # Seg Neutrophils % Seg Neuts % (Manual) Lymphocytes % (Manual) Monocytes % (Manual) Nucleated RBC % Seg Neutrophils # Seg Neutrophils # Man Lymphocytes # (Manual) Monocytes # (Manual) POC ABG pH POC ABG pCO2 POC ABG pO2 VBG pH Sodium Potassium Chloride Carbon Dioxide BUN Creatinine Glucose POC Glucose 191 H 114 H 147 H Hemoglobin A1c Lactic Acid Calcium Phosphorus Magnesium Direct Bilirubin AST ALT C-Reactive Protein Total Protein Albumin Urine WBC (Auto) Salicylates Acetaminophen Heparin-induced Plt Ab 11/16/18 11/16/18 11/16/18 04:49 04:49 06:09 WBC RBC 2.60 L Hgb 8.0 L Hct 23.4 L MCV MCHC RDW Plt Count Lymph % (Auto) [place] % (Auto) 14.1 H Lymph # [place] # 1.2 H Seg Neutrophils % Seg Neuts % (Manual) Lymphocytes % (Manual) Monocytes % (Manual) Nucleated RBC % Seg Neutrophils # Seg Neutrophils # Man Lymphocytes # (Manual) Monocytes # (Manual) POC ABG pH POC ABG pCO2 POC ABG pO2 VBG pH Sodium 136 L Potassium Chloride 94.1 L Carbon Dioxide BUN 39 H Creatinine 7.4 H D Glucose 243 H POC Glucose 308 H Hemoglobin A1c Lactic Acid Calcium 8.3 L Phosphorus Magnesium Direct Bilirubin AST ALT C-Reactive Protein Total Protein Albumin 2.2 L Urine WBC (Auto) Salicylates Acetaminophen Heparin-induced Plt Ab 11/16/18 11/16/18 11/16/18 08:52 11:53 17:11 WBC RBC Hgb Hct MCV MCHC RDW Plt Count Lymph % (Auto) [place] % (Auto) Lymph # [place] # Seg Neutrophils % Seg Neuts % (Manual) Lymphocytes % (Manual) Monocytes % (Manual) Nucleated RBC % Seg Neutrophils # Seg Neutrophils # Man Lymphocytes # (Manual) Monocytes # (Manual) POC ABG pH POC ABG pCO2 POC ABG pO2 VBG pH Sodium Potassium Chloride Carbon Dioxide BUN Creatinine Glucose POC Glucose 278 H 178 H 173 H Hemoglobin A1c Lactic Acid Calcium Phosphorus Magnesium Direct Bilirubin AST ALT C-Reactive Protein Total Protein Albumin Urine WBC (Auto) Salicylates Acetaminophen Heparin-induced Plt Ab 11/16/18 11/17/18 11/17/18 21:27 00:08 04:45 WBC RBC 2.58 L Hgb 7.9 L Hct 23.5 L MCV MCHC RDW Plt Count Lymph % (Auto) [place] % (Auto) 10.3 H Lymph # [place] # 1.1 H Seg Neutrophils % 74.8 H Seg Neuts % (Manual) Lymphocytes % (Manual) Monocytes % (Manual) Nucleated RBC % Seg Neutrophils # Seg Neutrophils # Man Lymphocytes # (Manual) Monocytes # (Manual) POC ABG pH POC ABG pCO2 POC ABG pO2 VBG pH Sodium Potassium Chloride Carbon Dioxide BUN Creatinine Glucose POC Glucose 206 H 151 H Hemoglobin A1c Lactic Acid Calcium Phosphorus Magnesium Direct Bilirubin AST ALT C-Reactive Protein Total Protein Albumin Urine WBC (Auto) Salicylates Acetaminophen Heparin-induced Plt Ab 11/17/18 11/17/18 11/17/18 04:45 05:12 05:31 WBC RBC Hgb Hct MCV MCHC RDW Plt Count Lymph % (Auto) [place] % (Auto) Lymph # [place] # Seg Neutrophils % Seg Neuts % (Manual) Lymphocytes % (Manual) Monocytes % (Manual) Nucleated RBC % Seg Neutrophils # Seg Neutrophils # Man Lymphocytes # (Manual) Monocytes # (Manual) POC ABG pH 7.481 H POC ABG pCO2 POC ABG pO2 VBG pH Sodium 136 L Potassium Chloride 94.4 L Carbon Dioxide BUN 38 H Creatinine 6.8 H Glucose POC Glucose 111 H Hemoglobin A1c Lactic Acid Calcium Phosphorus Magnesium 2.40 H Direct Bilirubin AST ALT C-Reactive Protein Total Protein Albumin Urine WBC (Auto) Salicylates Acetaminophen Heparin-induced Plt Ab 11/17/18 11/17/18 11/18/18 12:10 23:23 04:24 WBC RBC 2.66 L Hgb 8.2 L Hct 24.0 L MCV MCHC RDW Plt Count 448 H Lymph % (Auto) [place] % (Auto) 12.7 H Lymph # [place] # 1.4 H Seg Neutrophils % 71.9 H Seg Neuts % (Manual) Lymphocytes % (Manual) Monocytes % (Manual) Nucleated RBC % Seg Neutrophils # Seg Neutrophils # Man Lymphocytes # (Manual) Monocytes # (Manual) POC ABG pH POC ABG pCO2 POC ABG pO2 VBG pH Sodium Potassium Chloride Carbon Dioxide BUN Creatinine Glucose POC Glucose 174 H 243 H Hemoglobin A1c Lactic Acid Calcium Phosphorus Magnesium Direct Bilirubin AST ALT C-Reactive Protein Total Protein Albumin Urine WBC (Auto) Salicylates Acetaminophen Heparin-induced Plt Ab 11/18/18 11/18/18 11/18/18 04:24 05:26 11:48 WBC RBC Hgb Hct MCV MCHC RDW Plt Count Lymph % (Auto) [place] % (Auto) Lymph # [place] # Seg Neutrophils % Seg Neuts % (Manual) Lymphocytes % (Manual) Monocytes % (Manual) Nucleated RBC % Seg Neutrophils # Seg Neutrophils # Man Lymphocytes # (Manual) Monocytes # (Manual) POC ABG pH POC ABG pCO2 POC ABG pO2 VBG pH Sodium 136 L Potassium Chloride 93.1 L Carbon Dioxide BUN 30 H Creatinine 5.9 H Glucose 211 H POC Glucose 205 H 162 H Hemoglobin A1c Lactic Acid Calcium Phosphorus Magnesium Direct Bilirubin AST ALT C-Reactive Protein Total Protein Albumin Urine WBC (Auto) Salicylates Acetaminophen Heparin-induced Plt Ab 11/18/18 11/18/18 11/18/18 12:01 19:37 23:21 WBC RBC Hgb Hct MCV MCHC RDW Plt Count Lymph % (Auto) [place] % (Auto) Lymph # [place] # Seg Neutrophils % Seg Neuts % (Manual) Lymphocytes % (Manual) Monocytes % (Manual) Nucleated RBC % Seg Neutrophils # Seg Neutrophils # Man Lymphocytes # (Manual) Monocytes # (Manual) POC ABG pH POC ABG pCO2 POC ABG pO2 VBG pH Sodium Potassium Chloride Carbon Dioxide BUN Creatinine Glucose POC Glucose 207 H 245 H Hemoglobin A1c Lactic Acid Calcium Phosphorus Magnesium Direct Bilirubin AST ALT C-Reactive Protein Total Protein Albumin Urine WBC (Auto) > 182.0 H Salicylates Acetaminophen Heparin-induced Plt Ab 11/19/18 11/19/18 11/19/18 04:24 05:21 12:01 WBC RBC Hgb Hct MCV MCHC RDW Plt Count Lymph % (Auto) [place] % (Auto) Lymph # [place] # Seg Neutrophils % Seg Neuts % (Manual) Lymphocytes % (Manual) Monocytes % (Manual) Nucleated RBC % Seg Neutrophils # Seg Neutrophils # Man Lymphocytes # (Manual) Monocytes # (Manual) POC ABG pH POC ABG pCO2 POC ABG pO2 VBG pH Sodium 134 L Potassium 5.4 H Chloride 89.8 L Carbon Dioxide BUN 54 H Creatinine 8.0 H Glucose 240 H POC Glucose 234 H 179 H Hemoglobin A1c Lactic Acid Calcium Phosphorus Magnesium Direct Bilirubin AST ALT C-Reactive Protein Total Protein Albumin Urine WBC (Auto) Salicylates Acetaminophen Heparin-induced Plt Ab 11/19/18 11/19/18 11/19/18 12:41 17:32 21:53 WBC 13.7 H RBC 2.73 L Hgb 8.3 L Hct 24.9 L MCV MCHC RDW Plt Count 479 H Lymph % (Auto) [place] % (Auto) Lymph # [place] # Seg Neutrophils % Seg Neuts % (Manual) Lymphocytes % (Manual) Monocytes % (Manual) Nucleated RBC % Seg Neutrophils # Seg Neutrophils # Man Lymphocytes # (Manual) Monocytes # (Manual) POC ABG pH POC ABG pCO2 POC ABG pO2 VBG pH Sodium Potassium Chloride Carbon Dioxide BUN Creatinine Glucose POC Glucose 317 H 421 H Hemoglobin A1c Lactic Acid Calcium Phosphorus Magnesium Direct Bilirubin AST ALT C-Reactive Protein Total Protein Albumin Urine WBC (Auto) Salicylates Acetaminophen Heparin-induced Plt Ab 11/19/18 11/20/18 11/20/18 23:16 06:03 10:25 WBC 11.9 H RBC 2.58 L Hgb 7.8 L Hct 23.1 L MCV MCHC RDW Plt Count 444 H Lymph % (Auto) [place] % (Auto) Lymph # [place] # Seg Neutrophils % Seg Neuts % (Manual) Lymphocytes % (Manual) Monocytes % (Manual) Nucleated RBC % Seg Neutrophils # Seg Neutrophils # Man Lymphocytes # (Manual) Monocytes # (Manual) POC ABG pH POC ABG pCO2 POC ABG pO2 VBG pH Sodium Potassium Chloride Carbon Dioxide BUN Creatinine Glucose POC Glucose 396 H 294 H Hemoglobin A1c Lactic Acid Calcium Phosphorus Magnesium Direct Bilirubin AST ALT C-Reactive Protein Total Protein Albumin Urine WBC (Auto) Salicylates Acetaminophen Heparin-induced Plt Ab 11/20/18 11/20/18 11/20/18 10:25 12:39 16:34 WBC RBC Hgb Hct MCV MCHC RDW Plt Count Lymph % (Auto) [place] % (Auto) Lymph # [place] # Seg Neutrophils % Seg Neuts % (Manual) Lymphocytes % (Manual) Monocytes % (Manual) Nucleated RBC % Seg Neutrophils # Seg Neutrophils # Man Lymphocytes # (Manual) Monocytes # (Manual) POC ABG pH POC ABG pCO2 POC ABG pO2 VBG pH Sodium 135 L Potassium 6.1 H* 5.1 H Chloride 89.8 L Carbon Dioxide BUN 55 H Creatinine 8.2 H Glucose 302 H POC Glucose 245 H Hemoglobin A1c Lactic Acid Calcium Phosphorus Magnesium Direct Bilirubin AST ALT C-Reactive Protein Total Protein Albumin Urine WBC (Auto) Salicylates Acetaminophen Heparin-induced Plt Ab 11/20/18 11/20/18 11/20/18 17:45 18:16 23:12 WBC RBC Hgb Hct MCV MCHC RDW Plt Count Lymph % (Auto) [place] % (Auto) Lymph # [place] # Seg Neutrophils % Seg Neuts % (Manual) Lymphocytes % (Manual) Monocytes % (Manual) Nucleated RBC % Seg Neutrophils # Seg Neutrophils # Man Lymphocytes # (Manual) Monocytes # (Manual) POC ABG pH POC ABG pCO2 POC ABG pO2 VBG pH Sodium Potassium 5.2 H Chloride 90.2 L Carbon Dioxide BUN 60 H Creatinine 8.9 H Glucose 217 H POC Glucose 211 H 320 H Hemoglobin A1c Lactic Acid Calcium Phosphorus Magnesium Direct Bilirubin AST ALT C-Reactive Protein Total Protein Albumin Urine WBC (Auto) Salicylates Acetaminophen Heparin-induced Plt Ab 11/21/18 11/21/18 11/21/18 04:44 04:44 05:32 WBC RBC 2.51 L Hgb 7.8 L Hct 22.3 L MCV MCHC 35 H RDW Plt Count Lymph % (Auto) [place] % (Auto) 9.5 H Lymph # [place] # 1.0 H Seg Neutrophils % 72.3 H Seg Neuts % (Manual) Lymphocytes % (Manual) Monocytes % (Manual) Nucleated RBC % Seg Neutrophils # Seg Neutrophils # Man Lymphocytes # (Manual) Monocytes # (Manual) POC ABG pH POC ABG pCO2 POC ABG pO2 VBG pH Sodium Potassium Chloride 92.7 L Carbon Dioxide BUN 36 H Creatinine 5.9 H Glucose 209 H POC Glucose 203 H Hemoglobin A1c Lactic Acid Calcium Phosphorus 5.50 H Magnesium Direct Bilirubin AST ALT C-Reactive Protein Total Protein Albumin Urine WBC (Auto) Salicylates Acetaminophen Heparin-induced Plt Ab 11/21/18 11/21/18 11/21/18 10:45 12:18 17:49 WBC RBC Hgb Hct MCV MCHC RDW Plt Count Lymph % (Auto) [place] % (Auto) Lymph # [place] # Seg Neutrophils % Seg Neuts % (Manual) Lymphocytes % (Manual) Monocytes % (Manual) Nucleated RBC % Seg Neutrophils # Seg Neutrophils # Man Lymphocytes # (Manual) Monocytes # (Manual) POC ABG pH 7.473 H POC ABG pCO2 POC ABG pO2 121 H VBG pH Sodium Potassium Chloride Carbon Dioxide BUN Creatinine Glucose POC Glucose 149 H 233 H Hemoglobin A1c Lactic Acid Calcium Phosphorus Magnesium Direct Bilirubin AST ALT C-Reactive Protein Total Protein Albumin Urine WBC (Auto) Salicylates Acetaminophen Heparin-induced Plt Ab 11/21/18 11/22/18 11/22/18 23:39 04:52 04:52 WBC 15.1 H RBC 2.59 L Hgb 7.6 L Hct 23.5 L MCV MCHC RDW Plt Count 472 H Lymph % (Auto) 9.9 L [place] % (Auto) 9.7 H Lymph # [place] # 1.5 H Seg Neutrophils % 79.2 H Seg Neuts % (Manual) Lymphocytes % (Manual) Monocytes % (Manual) Nucleated RBC % Seg Neutrophils # 11.9 H Seg Neutrophils # Man Lymphocytes # (Manual) Monocytes # (Manual) POC ABG pH POC ABG pCO2 POC ABG pO2 VBG pH Sodium Potassium Chloride 94.9 L Carbon Dioxide BUN 34 H Creatinine 5.6 H Glucose 182 H POC Glucose 235 H Hemoglobin A1c Lactic Acid Calcium Phosphorus Magnesium Direct Bilirubin AST ALT C-Reactive Protein Total Protein Albumin Urine WBC (Auto) Salicylates Acetaminophen Heparin-induced Plt Ab 11/22/18 11/22/18 11/22/18 05:49 11:39 16:20 WBC RBC Hgb Hct MCV MCHC RDW Plt Count Lymph % (Auto) [place] % (Auto) Lymph # [place] # Seg Neutrophils % Seg Neuts % (Manual) Lymphocytes % (Manual) Monocytes % (Manual) Nucleated RBC % Seg Neutrophils # Seg Neutrophils # Man Lymphocytes # (Manual) Monocytes # (Manual) POC ABG pH POC ABG pCO2 POC ABG pO2 VBG pH Sodium Potassium Chloride Carbon Dioxide BUN Creatinine Glucose POC Glucose 264 H 277 H 303 H Hemoglobin A1c Lactic Acid Calcium Phosphorus Magnesium Direct Bilirubin AST ALT C-Reactive Protein Total Protein Albumin Urine WBC (Auto) Salicylates Acetaminophen Heparin-induced Plt Ab 11/22/18 11/23/18 11/23/18 23:17 04:39 04:39 WBC 12.6 H RBC 2.36 L Hgb 7.1 L Hct 21.2 L MCV MCHC RDW Plt Count Lymph % (Auto) 11.8 L [place] % (Auto) 9.8 H Lymph # [place] # 1.2 H Seg Neutrophils % 77.8 H Seg Neuts % (Manual) Lymphocytes % (Manual) Monocytes % (Manual) Nucleated RBC % Seg Neutrophils # 9.8 H Seg Neutrophils # Man Lymphocytes # (Manual) Monocytes # (Manual) POC ABG pH POC ABG pCO2 POC ABG pO2 VBG pH Sodium 135 L Potassium Chloride 90.4 L Carbon Dioxide BUN 60 H Creatinine 8.5 H D Glucose 345 H POC Glucose 232 H Hemoglobin A1c Lactic Acid Calcium Phosphorus 5.20 H D Magnesium Direct Bilirubin AST ALT C-Reactive Protein Total Protein Albumin Urine WBC (Auto) Salicylates Acetaminophen Heparin-induced Plt Ab 11/23/18 11/23/18 11/23/18 05:49 05:53 12:05 WBC RBC Hgb Hct MCV MCHC RDW Plt Count Lymph % (Auto) [place] % (Auto) Lymph # [place] # Seg Neutrophils % Seg Neuts % (Manual) Lymphocytes % (Manual) Monocytes % (Manual) Nucleated RBC % Seg Neutrophils # Seg Neutrophils # Man Lymphocytes # (Manual) Monocytes # (Manual) POC ABG pH POC ABG pCO2 POC ABG pO2 VBG pH Sodium Potassium Chloride Carbon Dioxide BUN Creatinine Glucose POC Glucose 410 H 366 H 335 H Hemoglobin A1c Lactic Acid Calcium Phosphorus Magnesium Direct Bilirubin AST ALT C-Reactive Protein Total Protein Albumin Urine WBC (Auto) Salicylates Acetaminophen Heparin-induced Plt Ab 11/23/18 11/23/18 11/23/18 18:00 18:16 21:28 WBC RBC Hgb Hct MCV MCHC RDW Plt Count Lymph % (Auto) [place] % (Auto) Lymph # [place] # Seg Neutrophils % Seg Neuts % (Manual) Lymphocytes % (Manual) Monocytes % (Manual) Nucleated RBC % Seg Neutrophils # Seg Neutrophils # Man Lymphocytes # (Manual) Monocytes # (Manual) POC ABG pH POC ABG pCO2 POC ABG pO2 VBG pH Sodium Potassium Chloride Carbon Dioxide BUN Creatinine Glucose POC Glucose 401 H 326 H Hemoglobin A1c Lactic Acid Calcium Phosphorus Magnesium Direct Bilirubin AST ALT C-Reactive Protein Total Protein Albumin Urine WBC (Auto) > 182.0 H Salicylates Acetaminophen Heparin-induced Plt Ab 11/23/18 11/24/18 11/24/18 23:02 05:18 05:18 WBC RBC 2.44 L Hgb 7.4 L Hct 21.9 L MCV MCHC RDW Plt Count 447 H Lymph % (Auto) [place] % (Auto) 10.1 H Lymph # [place] # 1.1 H Seg Neutrophils % 75.4 H Seg Neuts % (Manual) Lymphocytes % (Manual) Monocytes % (Manual) Nucleated RBC % Seg Neutrophils # 8.0 H Seg Neutrophils # Man Lymphocytes # (Manual) Monocytes # (Manual) POC ABG pH POC ABG pCO2 POC ABG pO2 VBG pH Sodium Potassium Chloride 91.7 L Carbon Dioxide BUN 88 H Creatinine 11.3 H Glucose 320 H POC Glucose 305 H Hemoglobin A1c Lactic Acid Calcium Phosphorus 6.60 H D Magnesium Direct Bilirubin AST ALT C-Reactive Protein Total Protein Albumin Urine WBC (Auto) Salicylates Acetaminophen Heparin-induced Plt Ab 11/24/18 11/24/18 11/24/18 05:32 11:07 12:13 WBC RBC Hgb Hct MCV MCHC RDW Plt Count Lymph % (Auto) [place] % (Auto) Lymph # [place] # Seg Neutrophils % Seg Neuts % (Manual) Lymphocytes % (Manual) Monocytes % (Manual) Nucleated RBC % Seg Neutrophils # Seg Neutrophils # Man Lymphocytes # (Manual) Monocytes # (Manual) POC ABG pH POC ABG pCO2 POC ABG pO2 VBG pH Sodium Potassium Chloride Carbon Dioxide BUN Creatinine Glucose POC Glucose 356 H 352 H 355 H Hemoglobin A1c Lactic Acid Calcium Phosphorus Magnesium Direct Bilirubin AST ALT C-Reactive Protein Total Protein Albumin Urine WBC (Auto) Salicylates Acetaminophen Heparin-induced Plt Ab 11/24/18 11/24/18 11/24/18 13:27 14:34 15:03 WBC RBC Hgb Hct MCV MCHC RDW Plt Count Lymph % (Auto) [place] % (Auto) Lymph # [place] # Seg Neutrophils % Seg Neuts % (Manual) Lymphocytes % (Manual) Monocytes % (Manual) Nucleated RBC % Seg Neutrophils # Seg Neutrophils # Man Lymphocytes # (Manual) Monocytes # (Manual) POC ABG pH 7.503 H POC ABG pCO2 POC ABG pO2 146 H VBG pH Sodium Potassium Chloride Carbon Dioxide BUN Creatinine Glucose POC Glucose 267 H 193 H Hemoglobin A1c Lactic Acid Calcium Phosphorus Magnesium Direct Bilirubin AST ALT C-Reactive Protein Total Protein Albumin Urine WBC (Auto) Salicylates Acetaminophen Heparin-induced Plt Ab 11/24/18 11/24/18 11/24/18 15:32 16:24 17:30 WBC RBC Hgb Hct MCV MCHC RDW Plt Count Lymph % (Auto) [place] % (Auto) Lymph # [place] # Seg Neutrophils % Seg Neuts % (Manual) Lymphocytes % (Manual) Monocytes % (Manual) Nucleated RBC % Seg Neutrophils # Seg Neutrophils # Man Lymphocytes # (Manual) Monocytes # (Manual) POC ABG pH POC ABG pCO2 POC ABG pO2 VBG pH Sodium Potassium Chloride Carbon Dioxide BUN Creatinine Glucose POC Glucose 182 H 216 H 207 H Hemoglobin A1c Lactic Acid Calcium Phosphorus Magnesium Direct Bilirubin AST ALT C-Reactive Protein Total Protein Albumin Urine WBC (Auto) Salicylates Acetaminophen Heparin-induced Plt Ab 11/24/18 11/24/18 11/24/18 18:46 20:02 20:59 WBC RBC Hgb Hct MCV MCHC RDW Plt Count Lymph % (Auto) [place] % (Auto) Lymph # [place] # Seg Neutrophils % Seg Neuts % (Manual) Lymphocytes % (Manual) Monocytes % (Manual) Nucleated RBC % Seg Neutrophils # Seg Neutrophils # Man Lymphocytes # (Manual) Monocytes # (Manual) POC ABG pH POC ABG pCO2 POC ABG pO2 VBG pH Sodium Potassium Chloride Carbon Dioxide BUN Creatinine Glucose POC Glucose 206 H 217 H 243 H Hemoglobin A1c Lactic Acid Calcium Phosphorus Magnesium Direct Bilirubin AST ALT C-Reactive Protein Total Protein Albumin Urine WBC (Auto) Salicylates Acetaminophen Heparin-induced Plt Ab 11/24/18 11/24/18 11/25/18 22:12 23:02 00:02 WBC RBC Hgb Hct MCV MCHC RDW Plt Count Lymph % (Auto) [place] % (Auto) Lymph # [place] # Seg Neutrophils % Seg Neuts % (Manual) Lymphocytes % (Manual) Monocytes % (Manual) Nucleated RBC % Seg Neutrophils # Seg Neutrophils # Man Lymphocytes # (Manual) Monocytes # (Manual) POC ABG pH POC ABG pCO2 POC ABG pO2 VBG pH Sodium Potassium Chloride Carbon Dioxide BUN Creatinine Glucose POC Glucose 221 H 180 H 133 H Hemoglobin A1c Lactic Acid Calcium Phosphorus Magnesium Direct Bilirubin AST ALT C-Reactive Protein Total Protein Albumin Urine WBC (Auto) Salicylates Acetaminophen Heparin-induced Plt Ab 11/25/18 11/25/18 11/25/18 01:03 02:13 03:12 WBC RBC Hgb Hct MCV MCHC RDW Plt Count Lymph % (Auto) [place] % (Auto) Lymph # [place] # Seg Neutrophils % Seg Neuts % (Manual) Lymphocytes % (Manual) Monocytes % (Manual) Nucleated RBC % Seg Neutrophils # Seg Neutrophils # Man Lymphocytes # (Manual) Monocytes # (Manual) POC ABG pH POC ABG pCO2 POC ABG pO2 VBG pH Sodium Potassium Chloride Carbon Dioxide BUN Creatinine Glucose POC Glucose 120 H 133 H 160 H Hemoglobin A1c Lactic Acid Calcium Phosphorus Magnesium Direct Bilirubin AST ALT C-Reactive Protein Total Protein Albumin Urine WBC (Auto) Salicylates Acetaminophen Heparin-induced Plt Ab 11/25/18 11/25/18 11/25/18 04:11 04:14 04:14 WBC 12.1 H RBC 2.53 L Hgb 7.8 L Hct 23.8 L MCV MCHC RDW Plt Count Lymph % (Auto) [place] % (Auto) Lymph # [place] # Seg Neutrophils % Seg Neuts % (Manual) Lymphocytes % (Manual) Monocytes % (Manual) Nucleated RBC % Seg Neutrophils # Seg Neutrophils # Man Lymphocytes # (Manual) Monocytes # (Manual) POC ABG pH POC ABG pCO2 POC ABG pO2 VBG pH Sodium Potassium Chloride 93.6 L Carbon Dioxide BUN 53 H Creatinine 7.3 H Glucose 135 H POC Glucose 161 H Hemoglobin A1c Lactic Acid Calcium Phosphorus 5.30 H Magnesium Direct Bilirubin AST ALT C-Reactive Protein Total Protein Albumin Urine WBC (Auto) Salicylates Acetaminophen Heparin-induced Plt Ab 11/25/18 11/25/18 11/25/18 05:17 06:02 07:08 WBC RBC Hgb Hct MCV MCHC RDW Plt Count Lymph % (Auto) [place] % (Auto) Lymph # [place] # Seg Neutrophils % Seg Neuts % (Manual) Lymphocytes % (Manual) Monocytes % (Manual) Nucleated RBC % Seg Neutrophils # Seg Neutrophils # Man Lymphocytes # (Manual) Monocytes # (Manual) POC ABG pH POC ABG pCO2 POC ABG pO2 VBG pH Sodium Potassium Chloride Carbon Dioxide BUN Creatinine Glucose POC Glucose 178 H 146 H 159 H Hemoglobin A1c Lactic Acid Calcium Phosphorus Magnesium Direct Bilirubin AST ALT C-Reactive Protein Total Protein Albumin Urine WBC (Auto) Salicylates Acetaminophen Heparin-induced Plt Ab 11/25/18 11/25/18 11/25/18 08:11 09:14 10:10 WBC RBC Hgb Hct MCV MCHC RDW Plt Count Lymph % (Auto) [place] % (Auto) Lymph # [place] # Seg Neutrophils % Seg Neuts % (Manual) Lymphocytes % (Manual) Monocytes % (Manual) Nucleated RBC % Seg Neutrophils # Seg Neutrophils # Man Lymphocytes # (Manual) Monocytes # (Manual) POC ABG pH POC ABG pCO2 POC ABG pO2 VBG pH Sodium Potassium Chloride Carbon Dioxide BUN Creatinine Glucose POC Glucose 150 H 162 H 168 H Hemoglobin A1c Lactic Acid Calcium Phosphorus Magnesium Direct Bilirubin AST ALT C-Reactive Protein Total Protein Albumin Urine WBC (Auto) Salicylates Acetaminophen Heparin-induced Plt Ab 11/25/18 11/25/18 11/25/18 11:13 12:24 13:06 WBC RBC Hgb Hct MCV MCHC RDW Plt Count Lymph % (Auto) [place] % (Auto) Lymph # [place] # Seg Neutrophils % Seg Neuts % (Manual) Lymphocytes % (Manual) Monocytes % (Manual) Nucleated RBC % Seg Neutrophils # Seg Neutrophils # Man Lymphocytes # (Manual) Monocytes # (Manual) POC ABG pH POC ABG pCO2 POC ABG pO2 VBG pH Sodium Potassium Chloride Carbon Dioxide BUN Creatinine Glucose POC Glucose 152 H 142 H 141 H Hemoglobin A1c Lactic Acid Calcium Phosphorus Magnesium Direct Bilirubin AST ALT C-Reactive Protein Total Protein Albumin Urine WBC (Auto) Salicylates Acetaminophen Heparin-induced Plt Ab 11/25/18 11/25/18 11/25/18 14:16 17:43 23:58 WBC RBC Hgb Hct MCV MCHC RDW Plt Count Lymph % (Auto) [place] % (Auto) Lymph # [place] # Seg Neutrophils % Seg Neuts % (Manual) Lymphocytes % (Manual) Monocytes % (Manual) Nucleated RBC % Seg Neutrophils # Seg Neutrophils # Man Lymphocytes # (Manual) Monocytes # (Manual) POC ABG pH POC ABG pCO2 POC ABG pO2 VBG pH Sodium Potassium Chloride Carbon Dioxide BUN Creatinine Glucose POC Glucose 147 H 344 H 450 H Hemoglobin A1c Lactic Acid Calcium Phosphorus Magnesium Direct Bilirubin AST ALT C-Reactive Protein Total Protein Albumin Urine WBC (Auto) Salicylates Acetaminophen Heparin-induced Plt Ab 11/26/18 11/26/18 11/26/18 04:34 04:34 05:44 WBC RBC 2.63 L Hgb 7.9 L Hct 23.8 L MCV MCHC RDW Plt Count 523 H Lymph % (Auto) 13.1 L [place] % (Auto) 9.6 H Lymph # [place] # 0.9 H Seg Neutrophils % 76.0 H Seg Neuts % (Manual) Lymphocytes % (Manual) Monocytes % (Manual) Nucleated RBC % Seg Neutrophils # Seg Neutrophils # Man Lymphocytes # (Manual) Monocytes # (Manual) POC ABG pH POC ABG pCO2 POC ABG pO2 VBG pH Sodium 135 L Potassium 5.6 H Chloride 89.1 L Carbon Dioxide BUN 82 H Creatinine 9.6 H Glucose 511 H* POC Glucose 470 H Hemoglobin A1c Lactic Acid Calcium Phosphorus 6.40 H D Magnesium Direct Bilirubin AST ALT C-Reactive Protein Total Protein Albumin Urine WBC (Auto) Salicylates Acetaminophen Heparin-induced Plt Ab 11/26/18 11/26/18 08:26 08:30 WBC RBC Hgb Hct MCV MCHC RDW Plt Count Lymph % (Auto) [place] % (Auto) Lymph # [place] # Seg Neutrophils % Seg Neuts % (Manual) Lymphocytes % (Manual) Monocytes % (Manual) Nucleated RBC % Seg Neutrophils # Seg Neutrophils # Man Lymphocytes # (Manual) Monocytes # (Manual) POC ABG pH POC ABG pCO2 POC ABG pO2 VBG pH Sodium 132 L Potassium 5.3 H Chloride 86.6 L Carbon Dioxide BUN 89 H Creatinine 10.6 H Glucose POC Glucose > 500 H Hemoglobin A1c Lactic Acid Calcium Phosphorus Magnesium Direct Bilirubin AST ALT C-Reactive Protein Total Protein Albumin Urine WBC (Auto) Salicylates Acetaminophen Heparin-induced Plt Ab Allied health notes reviewed: RT (Daily weaning trials as tolerated)
--- NOTE | 2018-11-26 09:36 | Progress Note ---
Assessment and Plan Assessment and plan: -S/P Cardiopulmonary Arrest- Possibly from renal failure with severe DKA and underlying CHF 2d echo showed Ef 30-35% on ventilatory support, nebulizers, supportive care --Anoxic Encephalopathy; from cardiac arrest neurology following, supportive care, Poor prognosis, EEG showed diffuse slowing and no seizure activity MRI brain; bilateral acute basal ganglia infarcts Bilateral acute frontal lobe white matter infarcts Bilateral acute parietal white matter infarcts --Acute Hypoxic Respiratory failure; vent dependent Unable to wean, status post trach and PEG 11/19/18 Continue trach and PEG care, PEG feeds per protocol --Febrile illness with UTI and sepsis, not POA Intermittent fevers, low-grade fever last 24 hours MAXIMUM TEMPERATURE 100.4 on cefepime, I'll be following, follow cultures and supportive care UA showed pyuria with urine culture growing Pseudomonas. Chest x-ray negative for pneumonia. 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 closely monitor platelets, --Seizure Disorder; seizure precautions cont Antiepileptic medications, neurology following, EEG findings noted --Acute Kidney Injury secondary to ischemic ATN from hypotension, Hemodialysis per schedule nephrology following --Cardiogenic Shock; improved --Anemia of chronic disease; monitor H&H and transfuse as needed, check stool f or occult blood --Severe malnutrition/nutritional supplements, nutrition consult; --PAD; no statin for abnormal liver function --Shock Liver; with transaminitis, trending down, cont to monitor, supportive care --CHF with EF 30-35% - monitor volume status, cardiology following --DVT prophylaxis; SCDs --Full CODE STATUS Very poor prognosis. Plan of care is reviewed with the patient's mother in detail at the bedside She has numerous questions and concerns, addressed all of them Patient remains critically ill, mother and other family members are aware Discharge planning; possible transfer to LTAC as soon as arrangements are made Plan of care discussed with patient's nurse, case management Critical care time 35 min History Interval history: Patient is examined in ICU this morning medical records reviewed Patient remains critically on ventilatory support Unresponsive, status post trach and PEG on vent Vital signs noted Hospitalist Physical - Constitutional Vitals: Temp Pulse Resp BP Pulse Ox 100.5 F H 103 H 36 H 142/77 100 11/26/18 08:00 11/26/18 09:00 11/26/18 09:00 11/26/18 09:00 11/26/18 09:00 General appearance: Present: no acute distress, well-nourished, other (status post tracheostomy on vent) - EENT Eyes: Absent: scleral icterus ENT: other (tracheostomy on vent) - Neck Neck: Present: supple, normal ROM, other (tracheostomy on vent) - Respiratory Respiratory effort: normal Respiratory: bilateral: diminished, rhonchi, negative: rales, wheezing - Cardiovascular Rhythm: regular Heart Sounds: Present: S1 & S2 - Extremities Extremities: no ischemia, No edema - Abdominal General gastrointestinal: soft, non-tender, non-distended, normal bowel sounds, other (PEG tube in place) - Integumentary Integumentary: Present: clear, warm - Psychiatric Psychiatric: other (on vent) - Neurologic Neurologic: other (noncommunicative tracheostomy on vent) Results - Labs CBC & Chem 7: 11/26/18 04:34 11/26/18 08:30 Labs: Laboratory Last Values WBC 9.9 K/mm3 (4.5-11.0) 11/26/18 04:34 RBC 2.63 M/mm3 (3.65-5.03) L 11/26/18 04:34 Hgb 7.9 gm/dl (11.8-15.2) L 11/26/18 04:34 Hct 23.8 % (35.5-45.6) L 11/26/18 04:34 MCV 91 fl (84-94) 11/26/18 04:34 MCH 30 pg (28-32) 11/26/18 04:34 MCHC 33 % (32-34) 11/26/18 04:34 RDW 14.3 % (13.2-15.2) 11/26/18 04:34 Plt Count 523 K/mm3 (140-440) H 11/26/18 04:34 Lymph % (Auto) 13.1 % (13.4-35.0) L 11/26/18 04:34 [place] % (Auto) 9.6 % (0.0-7.3) H 11/26/18 04:34 Eos % (Auto) 0.5 % (0.0-4.3) 11/26/18 04:34 Baso % (Auto) 0.8 % (0.0-1.8) 11/26/18 04:34 Lymph # 1.3 K/mm3 (1.2-5.4) 11/26/18 04:34 [place] # 0.9 K/mm3 (0.0-0.8) H 11/26/18 04:34 Eos # 0.0 K/mm3 (0.0-0.4) 11/26/18 04:34 Baso # 0.1 K/mm3 (0.0-0.1) 11/26/18 04:34 Add Manual Diff Complete 11/11/18 04:24 Total Counted 100 11/11/18 04:24 Seg Neutrophils % 76.0 % (40.0-70.0) H 11/26/18 04:34 Seg Neuts % (Manual) 66.0 % (40.0-70.0) 11/11/18 04:24 0 % 11/11/18 04:24 22.0 % (13.4-35.0) 11/11/18 04:24 Reactive Lymphs % (Man) 0 % 11/11/18 04:24 10.0 % (0.0-7.3) H 11/11/18 04:24 2.0 % (0.0-4.3) 11/11/18 04:24 0 % (0.0-1.8) 11/11/18 04:24 0 % 11/11/18 04:24 0 % 11/11/18 04:24 0 % 11/11/18 04:24 0 % 11/11/18 04:24 Nucleated RBC % Not Reportable 11/11/18 04:24 Seg Neutrophils # 7.5 K/mm3 (1.8-7.7) 11/26/18 04:34 Seg Neutrophils # Man 6.9 K/mm3 (1.8-7.7) 11/11/18 04:24 Band Neutrophils # 0.0 K/mm3 11/11/18 04:24 2.3 K/mm3 (1.2-5.4) 11/11/18 04:24 Abs React Lymphs (Man) 0.0 K/mm3 11/11/18 04:24 1.0 K/mm3 (0.0-0.8) H 11/11/18 04:24 0.2 K/mm3 (0.0-0.4) 11/11/18 04:24 0.0 K/mm3 (0.0-0.1) 11/11/18 04:24 0.0 K/mm3 11/11/18 04:24 0.0 K/mm3 11/11/18 04:24 0.0 K/mm3 11/11/18 04:24 Blast Cells # 0.0 K/mm3 11/11/18 04:24 WBC Morphology Not Reportable 11/11/18 04:24 Hypersegmented Neuts Not Reportable 11/11/18 04:24 Hyposegmented Neuts Not Reportable 11/11/18 04:24 Hypogranular Neuts Not Reportable 11/11/18 04:24 Not Reportable 11/11/18 04:24 Not Reportable 11/11/18 04:24 Not Reportable 11/11/18 04:24 Not Reportable 11/11/18 04:24 Not Reportable 11/11/18 04:24 Not Reportable 11/11/18 04:24 Consistent w auto 11/11/18 04:24 Not Reportable 11/11/18 04:24 Plt Clumps, EDTA Not Reportable 11/11/18 04:24 Not Reportable 11/11/18 04:24 Not Reportable 11/11/18 04:24 Not Reportable 11/11/18 04:24 Plt Morphology Comment Not Reportable 11/11/18 04:24 RBC Morphology Not Reportable 11/11/18 04:24 Dimorphic RBCs Not Reportable 11/11/18 04:24 Not Reportable 11/11/18 04:24 Not Reportable 11/11/18 04:24 Not Reportable 11/11/18 04:24 1+ 11/11/18 04:24 Not Reportable 11/11/18 04:24 Not Reportable 11/11/18 04:24 Not Reportable 11/11/18 04:24 Not Reportable 11/11/18 04:24 Not Reportable 11/11/18 04:24 Not Reportable 11/11/18 04:24 Not Reportable 11/11/18 04:24 Not Reportable 11/11/18 04:24 Not Reportable 11/11/18 04:24 Not Reportable 11/11/18 04:24 Not Reportable 11/11/18 04:24 Not Reportable 11/11/18 04:24 Not Reportable 11/11/18 04:24 Not Reportable 11/11/18 04:24 Not Reportable 11/11/18 04:24 Acanthocytes (Spur) Not Reportable 11/11/18 04:24 Rouleaux Not Reportable 11/11/18 04:24 Not Reportable 11/11/18 04:24 Not Reportable 11/11/18 04:24 Not Reportable 11/11/18 04:24 Not Reportable 11/11/18 04:24 Hem Pathologist Commnt No 11/11/18 04:24 Heparin Anti-Xa, Unfract Negative (Negative) 11/08/18 21:59 POC ABG pH 7.503 (7.35-7.45) H 11/24/18 15:03 POC ABG pCO2 40.6 (35-45) 11/24/18 15:03 POC ABG pO2 146 (80-105) H 11/24/18 15:03 POC ABG HCO3 31.9 (22-26 mml/L) 11/24/18 15:03 POC ABG Total CO2 33 (23-27mmol/L) 11/24/18 15:03 POC ABG O2 Sat 99 11/24/18 15:03 POC ABG Base Excess 9 ((-2) - (+3)mmol/L) 11/24/18 15:03 VBG pH 6.982 (7.320-7.420) L* 11/06/18 13:22 28 % 11/24/18 15:03 Sodium 132 mmol/L (137-145) L 11/26/18 08:30 Potassium 5.3 mmol/L (3.6-5.0) H 11/26/18 08:30 Chloride 86.6 mmol/L (98-107) L 11/26/18 08:30 Carbon Dioxide 24 mmol/L (22-30) 11/26/18 08:30 27 mmol/L 11/26/18 08:30 BUN 89 mg/dL (9-20) H 11/26/18 08:30 10.6 mg/dL (0.8-1.5) H 11/26/18 08:30 Estimated GFR 7 ml/min 11/26/18 08:30 8 % 11/26/18 08:30 Glucose 531 mg/dL (75-100) H* 11/26/18 08:30 POC Glucose > 500 (70-105) H 11/26/18 08:26 10.1 % (4-6) H 11/15/18 04:50 Lactic Acid 2.70 mmol/L (0.7-2.0) H* 11/08/18 08:00 Calcium 9.4 mg/dL (8.4-10.2) 11/26/18 08:30 Phosphorus 6.40 mg/dL (2.5-4.5) H D 11/26/18 04:34 Magnesium 2.40 mg/dL (1.7-2.3) H 11/17/18 04:45 < 0.20 mg/dL (0.1-1.2) 11/16/18 04:49 < 0.2 mg/dL (0-0.2) 11/16/18 04:49 0.0 mg/dL 11/16/18 04:49 AST 30 units/L (5-40) 11/16/18 04:49 ALT 48 units/L (7-56) 11/16/18 04:49 94 units/L (35-129) 11/16/18 04:49 58 units/L (55-170) 11/06/18 09:02 0.027 ng/mL (0.00-0.029) 11/06/18 09:02 1.90 mg/dL (0.00-1.30) H 11/06/18 19:30 6.5 g/dL (6.3-8.2) 11/16/18 04:49 2.2 g/dL (3.9-5) L 11/16/18 04:49 0.5 % 11/16/18 04:49 See scanned result 11/08/18 21:59 Su (Yellow) 11/23/18 18:00 Turbid (Clear) 11/23/18 18:00 5.0 (5.0-7.0) 11/23/18 18:00 Ur Specific [place] 1.025 (1.003-1.030) 11/23/18 18:00 >500 mg/dL (Negative) 11/23/18 18:00 50 mg/dL (Negative) 11/23/18 18:00 Tr mg/dL (Negative) 11/23/18 18:00 Mod (Negative) 11/23/18 18:00 Neg (Negative) 11/23/18 18:00 Neg (Negative) 11/23/18 18:00 < 2.0 mg/dL (<2.0) 11/23/18 18:00 Ur Leukocyte Esterase Mod (Negative) 11/23/18 18:00 > 182.0 /HPF (0.0-6.0) H 11/23/18 18:00 128.0 /HPF (0.0-6.0) 11/23/18 18:00 U Epithel Cells (Auto) 1.0 /HPF (0-13.0) 11/23/18 18:00 2+ /HPF (Negative) 11/23/18 18:00 3+ /HPF 11/23/18 18:00 Hyaline Casts 8 /LPF 11/23/18 18:00 Few /HPF 11/23/18 18:00 3+ /HPF 11/23/18 18:00 Random Vancomycin 13.2 ug/mL (0-40.0) 11/08/18 04:23 Salicylates < 0.3 mg/dL (2.8-20.0) L 11/06/18 09:02 Presumptive negative 11/06/18 10:38 Presumptive negative 11/06/18 10:38 Acetaminophen < 5.0 ug/mL (10.0-30.0) L 11/06/18 09:02 Ur Barbiturates Screen Presumptive negative 11/06/18 10:38 Ur Phencyclidine Scrn Presumptive negative 11/06/18 10:38 Ur Amphetamines Screen Presumptive negative 11/06/18 10:38 U Benzodiazepines Scrn Presumptive negative 11/06/18 10:38 Presumptive negative 11/06/18 10:38 U Marijuana (THC) Screen Presumptive positive 11/06/18 10:38 Disclamer 11/06/18 10:38 Plasma/Serum Alcohol < 0.01 % (0-0.07) 11/06/18 09:02 Heparin-induced Plt Ab Positive (Negative) H 11/08/18 21:59 UF Heparin High Dose 0 % Release 11/08/18 21:59 DEBORA UFH Low Dose 0.1 0 % Release 11/08/18 21:59 [place]A UFH Low Dose 0.5 0 % Release 11/08/18 21:59 Hepatitis A IgM Ab Non-reactive (NonReactive) 11/07/18 13:20 Hep Bs Antigen Non-reactive (Negative) 11/07/18 13:20 Hep B Core IgM Ab Non-reactive (NonReactive) 11/07/18 13:20 Non-reactive (NonReactive) 11/07/18 13:20 Blood Type A POSITIVE 11/06/18 14:15 Antibody Screen Not Reportable 11/06/18 14:15 JANIS Antibody Screen Negative 11/06/18 14:15 Active Medications - Current Medications Current Medications: Generic Name Dose Route Start Last Admin Trade Name Freq PRN Reason Stop Dose Admin Acetaminophen 650 mg 11/06/18 22:22 11/22/18 12:57 Tylenol FEEDTUBE 650 mg Q6H PRN Administration Fever >/=100.5 Lipase/Protease/Amylase 1 each 11/08/18 18:38 Pancreaze 10,500 Unit FEEDTUBE PRN PRN For Clogged Feeding Tube Apixaban 2.5 mg 11/20/18 22:00 11/25/18 22:04 Eliquis FEEDTUBE 2.5 mg BID MARIAJOSE Administration Chlorpromazine HCl 10 mg 11/07/18 08:07 11/22/18 12:56 Thorazine PO 10 mg Q6H PRN Administration Hiccups Clonazepam 0.5 mg 11/12/18 16:49 11/13/18 23:10 Klonopin PO 0.5 mg Q12H PRN Administration myoclonic jerks Dextrose 50 ml 11/07/18 16:46 11/10/18 23:43 D50w (25gm) Syringe IV 50 ml PRN PRN Administration Hypoglycemia Epoetin Enoc 20,000 unit 11/18/18 13:46 11/24/18 16:37 Procrit IV 20,000 unit MARY PRN Administration hemodialysis Fentanyl 50 mcg 11/06/18 08:37 Sublimaze IV Q10MIN PRN ANALGESIA Hydralazine HCl 10 mg 11/08/18 00:56 11/23/18 23:58 Apresoline IV 10 mg Q4H PRN Administration Hypertension Hydralazine HCl 50 mg 11/14/18 09:16 11/26/18 05:55 Apresoline PO 50 mg Q8HR MARIAJOSE Administration Hydrophilic Ointment 1 applic 11/06/18 08:26 11/10/18 19:52 Vaseline Lip Therapy TP 1 applic Q2HR PRN Administration Dry Lips Sodium Chloride 100 mls @ 999 mls/hr 11/14/18 11:33 Nacl 0.9% IV MARY PRN Hypotension Insulin Glargine 35 units 11/26/18 10:00 Lantus SUB-Q BID MARIAJOSE Insulin Human Lispro 0 unit 11/26/18 12:00 Humalog SUB-Q Q6HR [facility] Protocol Insulin Human Regular 10 units 11/26/18 10:00 Humulin R SUB-Q TID MARIAJOSE Labetalol HCl 10 mg 11/19/18 16:09 11/20/18 15:24 Normodyne IV 10 mg Q4H PRN Administration Hypertension Lansoprazole 30 mg 11/09/18 10:00 11/25/18 22:03 Prevacid Solutab FEEDTUBE 30 mg BID MARIAJOSE Administration Levetiracetam 750 mg 11/18/18 10:00 11/25/18 22:04 Keppra PO 750 mg BID MARIAJOSE Administration Lorazepam 2 mg 11/12/18 08:31 11/24/18 03:23 Ativan IV 2 mg Q4H PRN Administration Agitation Metoprolol Tartrate 50 mg 11/14/18 10:00 11/26/18 04:16 Lopressor PO 50 mg Q6H MARIAJOSE Administration Modafinil 200 mg 11/17/18 10:00 11/25/18 09:17 Provigil PO 200 mg QAM MARIAJOSE Administration Multi-Ingred Cream/Lotion/Oil/Oint 1 applic 11/06/18 08:26 Artificial Tears Ophth Oint OU Q4HR PRN Dry Eye(s) Simple Syrup 15 ml 11/08/18 18:38 Simple Syrup FEEDTUBE PRN PRN Hypoglycemia Simple Syrup 30 ml 11/08/18 18:38 Simple Syrup FEEDTUBE PRN PRN Hypoglycemia Sodium Bicarbonate 325 mg 11/08/18 18:38 Sodium Bicarbonate FEEDTUBE PRN PRN For Clogged Feeding Tube Sodium Chloride 10 ml 11/06/18 22:00 11/25/18 22:04 Sodium Chloride Flush Syringe 10 Ml IV 10 ml BID MARIAJOSE Administration Sodium Chloride 10 ml 11/06/18 12:42 11/13/18 10:30 Sodium Chloride Flush Syringe 10 Ml IV 10 ml PRN PRN Administration LINE FLUSH Tamsulosin HCl 0.4 mg 11/10/18 13:00 11/25/18 09:17 Flomax PO 0.4 mg QDAY MARIAJOSE Administration Nutrition/Malnutrition Assess - Dietary Evaluation Nutrition/Malnutrition Findings: Nutrition Notes Start: 11/07/18 14:40 Freq: Status: Active Protocol: Document 11/23/18 16:39 RM (Rec: 11/23/18 16:41 RM [id number]) Nutrition Notes Initial or Follow up Reassessment Current Diagnosis CKD (stage V CKD),Diabetes Other Pertinent Diagnosis on HD, PAD, Anoxic brain injury, Cardiopulmonary arrest , AMS Current Diet Nepro at 50 ml/hr Labs/Tests K 4.5 Pertinent Medications Reviewed Height 6 ft 2 in Weight 101.9 kg [place] Body Weight (kg) 86.36 BMI 28.8 Subjective/Other Information Observed Nepro infusing at goal rate. Per nurse pt is tolerating TF. Percent of energy/protein needs met: 100%/94% Burn Absent Trauma Absent #1 Nutrition Diagnosis Inadequate oral intake Diagnosis Progress(for reassessment Continues documentation) Is patient on ventilator? Yes Is Patient Ambulatory and/or Out of Bed No REE-([facility]-confined to bed) 2395.212 Kcal/Kg value to use for calculation 20 Approximate Energy Requirements Using 2038 kcal/Kg Calculation Used for Recommendations Kcal/kg Additional Notes Protein Needs: 103-172g (1.2- 2g/kg) Fluid Needs: 1 ml/kcal Nutrition Intervention Nutrition Support: Nepro 1.2 at 50 ml/hr. Water flush of 200 mls q 4 hrs . Kcal 2,160 Protein (gm) 97 Fluid (mL) 872 Goal #1 Continue to meet at least 80% of calorie and protein needs via TF Anticipated Discharge Needs: Unable to determine at this time Follow-Up By: 11/30/18 Additional Comments Follow for TF tolerance
--- NOTE | 2018-11-26 09:41 | Progress Note ---
Assessment and Plan Severe renal failure due to GENEVIEVE on CKD, now ESRD on HD: Mild Hyperkalemia: - Hemodialysis today for UF and clearance - Anemia-on Epogen 20,000 unit with HD - Strict monitoring of I/O's - Renally dose medications - Avoid Nephrotoxic agents - Obtain daily weights - Assess dialysis needs daily S/p Cardiopulmonary arrest. STEMI: Acute Hypoxic respiratory failure: -S/p CPR and ACLS protocol -Now off pressor support -On ventilator via Trach. 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 Mother at bedside Objective - Vital Signs Vital signs: Vital Signs - 12hr 11/25/18 11/25/18 11/25/18 22:00 22:03 22:04 Temperature Pulse Rate 106 H 104 H 103 H Pulse Rate [ From Monitor] Respiratory 18 Rate Blood Pressure 157/75 157/75 157/75 O2 Sat by Pulse 100 Oximetry O2 Sat by Pulse Oximetry [ Assessment] 11/25/18 11/25/18 11/25/18 22:30 23:01 23:30 Temperature Pulse Rate 101 H 99 H 102 H Pulse Rate [ From Monitor] Respiratory 33 H 20 37 H Rate Blood Pressure 119/63 154/74 159/81 O2 Sat by Pulse 100 100 100 Oximetry O2 Sat by Pulse Oximetry [ Assessment] 11/25/18 11/26/18 11/26/18 23:51 00:00 00:30 Temperature 99.0 F Pulse Rate 101 H 103 H 100 H Pulse Rate [ From Monitor] Respiratory 18 15 Rate Blood Pressure 170/92 170/92 164/85 O2 Sat by Pulse 100 100 100 Oximetry O2 Sat by Pulse Oximetry [ Assessment] 11/26/18 11/26/18 11/26/18 01:00 01:30 02:00 Temperature Pulse Rate 98 H 99 H 99 H Pulse Rate [ From Monitor] Respiratory 29 H 21 20 Rate Blood Pressure 139/59 137/72 128/69 O2 Sat by Pulse 100 100 100 Oximetry O2 Sat by Pulse Oximetry [ Assessment] 11/26/18 11/26/18 11/26/18 02:30 03:00 03:30 Temperature Pulse Rate 98 H 100 H 99 H Pulse Rate [ From Monitor] Respiratory 20 20 20 Rate Blood Pressure 130/68 143/82 127/72 O2 Sat by Pulse 100 99 100 Oximetry O2 Sat by Pulse Oximetry [ Assessment] 11/26/18 11/26/18 11/26/18 03:34 04:00 04:16 Temperature 99.8 F H Pulse Rate 98 H 99 H Pulse Rate [ From Monitor] Respiratory 20 Rate Blood Pressure 122/71 132/72 O2 Sat by Pulse 100 Oximetry O2 Sat by Pulse Oximetry [ Assessment] 11/26/18 11/26/18 11/26/18 04:21 04:24 04:30 Temperature Pulse Rate 101 H 100 H Pulse Rate [ From Monitor] Respiratory 21 Rate Blood Pressure 132/72 145/79 O2 Sat by Pulse 100 100 Oximetry O2 Sat by Pulse 100 Oximetry [ Assessment] 11/26/18 11/26/18 11/26/18 05:00 05:30 05:55 Temperature Pulse Rate 95 H 94 H 97 H Pulse Rate [ From Monitor] Respiratory 24 20 Rate Blood Pressure 129/68 132/64 148/76 O2 Sat by Pulse 100 99 Oximetry O2 Sat by Pulse Oximetry [ Assessment] 11/26/18 11/26/18 11/26/18 06:01 06:30 07:00 Temperature Pulse Rate 101 H 101 H 104 H Pulse Rate [ From Monitor] Respiratory 15 25 H 17 Rate Blood Pressure 151/82 139/73 144/81 O2 Sat by Pulse 100 99 99 Oximetry O2 Sat by Pulse Oximetry [ Assessment] 11/26/18 11/26/18 11/26/18 07:08 07:31 08:00 Temperature 100.5 F H Pulse Rate 105 H 103 H Pulse Rate [ 101 H From Monitor] Respiratory 12 Rate Blood Pressure 182/94 O2 Sat by Pulse 100 100 99 Oximetry O2 Sat by Pulse Oximetry [ Assessment] 11/26/18 11/26/18 11/26/18 08:01 08:30 09:00 Temperature Pulse Rate 106 H 102 H 103 H Pulse Rate [ From Monitor] Respiratory 9 L 18 36 H Rate Blood Pressure 172/92 160/85 142/77 O2 Sat by Pulse 100 100 100 Oximetry O2 Sat by Pulse Oximetry [ Assessment] - General Appearance General appearance: sedated on ventilator, intubated EENT: ATNC Neck: no JVD, supple Respiratory: Present: Decreased Breath Sounds, Other (Intubated) Cardiology: regular, S1S2 Gastrointestinal: normoactive bowel sounds Integumentary: warm and dry Neurologic: other (Sedated and intubated) Musculoskeletal: joint swelling - Lab 11/26/18 04:34 11/26/18 08:30 Most recent lab results Calcium 9.4 mg/dL (8.4-10.2) 11/26/18 08:30 Phosphorus 6.40 mg/dL (2.5-4.5) H D 11/26/18 04:34 Magnesium 2.40 mg/dL (1.7-2.3) H 11/17/18 04:45 Medications & Allergies - Medications Allergies/Adverse Reactions: Allergies No Known Allergies Allergy (Verified 03/17/18 11:54) Home Medications: Home Medications Medication Instructions Recorded Confirmed Last Taken Type Esomeprazole Magnesium [NexIUM] 20 mg PO QDAY #30 suspdr.pkt 03/17/18 11/07/18 Unknown Rx HYDROcodone/APAP 5-325 [[place] 1 each PO Q6HR PRN #15 tablet 03/17/18 11/07/18 Unknown Rx 5/325] Metoclopramide [Reglan] 10 mg PO TID #21 tab 03/17/18 11/07/18 Unknown Rx Ondansetron [Zofran Odt] 4 mg PO Q4HR PRN #20 tab.rapdis 03/17/18 11/07/18 Unknown Rx Active Medications: Generic Name Dose Route Start Last Admin Trade Name Freq PRN Reason Stop Dose Admin Acetaminophen 650 mg 11/06/18 22:22 11/22/18 12:57 Tylenol FEEDTUBE 650 mg Q6H PRN Administration Fever >/=100.5 Lipase/Protease/Amylase 1 each 11/08/18 18:38 Pancreclara [place] 10,500 Unit FEEDTUBE PRN PRN For Clogged Feeding Tube Apixaban 2.5 mg 11/20/18 22:00 11/25/18 22:04 Eliquis FEEDTUBE 2.5 mg BID MARIAJOSE Administration Chlorpromazine HCl 10 mg 11/07/18 08:07 11/22/18 12:56 Thorazine PO 10 mg Q6H PRN Administration Hiccups Clonazepam 0.5 mg 11/12/18 16:49 11/13/18 23:10 Klonopin PO 0.5 mg Q12H PRN Administration myoclonic jerks Dextrose 50 ml 11/07/18 16:46 11/10/18 23:43 D50w (25gm) Syringe IV 50 ml PRN PRN Administration Hypoglycemia Epoetin Enoc 20,000 unit 11/18/18 13:46 11/24/18 16:37 Procrit IV 20,000 unit MARY PRN Administration hemodialysis Fentanyl 50 mcg 11/06/18 08:37 Sublimaze IV Q10MIN PRN ANALGESIA Hydralazine HCl 10 mg 11/08/18 00:56 11/23/18 23:58 Apresoline IV 10 mg Q4H PRN Administration Hypertension Hydralazine HCl 50 mg 11/14/18 09:16 11/26/18 05:55 Apresoline PO 50 mg Q8HR MARIAJOSE Administration Hydrophilic Ointment 1 applic 11/06/18 08:26 11/10/18 19:52 Vaseline Lip Therapy TP 1 applic Q2HR PRN Administration Dry Lips Sodium Chloride 100 mls @ 999 mls/hr 11/14/18 11:33 Nacl 0.9% IV MARY PRN Hypotension Insulin Glargine 35 units 11/26/18 10:00 Lantus SUB-Q BID PENDING SALE TO [facility] Insulin Human Lispro 0 unit 11/26/18 12:00 Humalog SUB-Q Q6HR PENDING SALE TO [facility] Protocol Insulin Human Regular 10 units 11/26/18 10:00 Humulin R SUB-Q TID MARIAJOSE Labetalol HCl 10 mg 11/19/18 16:09 11/20/18 15:24 Normodyne IV 10 mg Q4H PRN Administration Hypertension Lansoprazole 30 mg 11/09/18 10:00 11/25/18 22:03 Prevacid Solutab FEEDTUBE 30 mg BID MARIAJOSE Administration Levetiracetam 750 mg 11/18/18 10:00 11/25/18 22:04 Keppra PO 750 mg BID MARIAJOSE Administration Lorazepam 2 mg 11/12/18 08:31 11/24/18 03:23 Ativan IV 2 mg Q4H PRN Administration Agitation Metoprolol Tartrate 50 mg 11/14/18 10:00 11/26/18 04:16 Lopressor PO 50 mg Q6H MARIAJOSE Administration Modafinil 200 mg 11/17/18 10:00 11/25/18 09:17 Provigil PO 200 mg QAM MARIAJOSE Administration Multi-Ingred Cream/Lotion/Oil/Oint 1 applic 11/06/18 08:26 Artificial Tears Ophth Oint OU Q4HR PRN Dry Eye(s) Simple Syrup 15 ml 11/08/18 18:38 Simple Syrup FEEDTUBE PRN PRN Hypoglycemia Simple Syrup 30 ml 11/08/18 18:38 Simple Syrup FEEDTUBE PRN PRN Hypoglycemia Sodium Bicarbonate 325 mg 11/08/18 18:38 Sodium Bicarbonate FEEDTUBE PRN PRN For Clogged Feeding Tube Sodium Chloride 10 ml 11/06/18 22:00 11/25/18 22:04 Sodium Chloride Flush Syringe 10 Ml IV 10 ml BID MARIAJOSE Administration Sodium Chloride 10 ml 11/06/18 12:42 11/13/18 10:30 Sodium Chloride Flush Syringe 10 Ml IV 10 ml PRN PRN Administration LINE FLUSH Tamsulosin HCl 0.4 mg 11/10/18 13:00 11/25/18 09:17 Flomax PO 0.4 mg QDAY MARIAJOSE Administration
[2018-11-26] MEDS: SODIUM CHLORIDE FLUSH SYRINGE 10 ML IV SCH (10:00)
[2018-11-26] MEDS: HumuLIN R SUB-Q SCH ×2 (10:23→14:24)
[2018-11-26] MEDS: FLOMAX PO SCH (10:44)
[2018-11-26] MEDS: ELIQUIS FEEDTUBE SCH (10:44)
[2018-11-26] MEDS: PROVIGIL PO SCH (10:44)
[2018-11-26] MEDS: KEPPRA PO SCH (10:48)
[2018-11-26] MEDS: PREVACID SOLUTAB FEEDTUBE SCH (10:48)
[2018-11-26] MEDS ORDERED: LANTUS SUB-Q ONE (11:00)
[2018-11-26] MEDS: PROCRIT IV PRN (11:34)
--- NOTE | 2018-11-26 15:06 | Progress Note ---
Assessment and Plan Cultures: 11/06/2018 blood culture: No growth 11/06/2018 urine culture: No growth 11/06/2018 sputum culture: Usual respiratory diana 11/18/2018 blood culture: In process 11/18/2018 urine culture: Pseudomonas sensitive to cefepime Assessment: 42-year-old male with ESRD on hemodialysis, hypertension, diabetes mellitus, peripheral vascular disease, tobacco abuse was brought into the emergency room on 11/06/2018 after he was noted to be unresponsive and was found down by the family. EMS intubated the patient and brought him to the ED. Patient had a cardiac arrest in the emergency room requiring ACLS. Subsequently, he had ROSC. Prolonged hospital stay, concerning for anoxic brain injury, now s/p trach and PEG. 1) Sepsis: still fever, possibly related to UTI +/- ?central fever. UA showed pyuria with urine culture growing Pseudomonas. Chest x-ray today does not suggest any pneumonia. Blood cultures so far have been negative. Repeat CXR negative. 2) Anoxic encephalopathy, status post cardiopulmonary arrest. Repeat CT unspecific 3) ESRD: On dialysis. Renally dose abx. 4) DM, uncontrolled, admitted with DKA 5) Shock liver on admission, now resolved 6) Reactive thrombocytosis 7) UTI due to Pseudomonas: ? suspect bladder retention, bladder scan +350cc s/p straight cath +230cc. Renal US shows medical renal disease and distended bladder with exaggerated thickness. Recs: stop Cefepime 1 gm q24 hrs renally adjusted D8 of 8 monitor fever will follow Joyce Blackwell MD Infectious Diseases [facility] M [phone] O [phone] Subjective Date of service: 11/26/18 Principal diagnosis: Ac hypoxemic resp failure; DKA; Severe sepsis with shock; ESRD on dialysis Interval history: Remains non verbal noted fever 100.5 ROS unable to obtain Objective - Exam Narrative Exam: General: unresponsive non verbal on CPAP Head, Ears, Nose: Normocephalic, atraumatic. External ears, nose normal Eyes: Conjunctivae/corneas clear. No icterus. No ptosis. Neck: trach + Oral: unable to examine Cardiovascular: S1, S2 normal. Respiratory: b/l rhonchi + GI: Soft; bowel sounds normal. No peritoneal signs. PEG + Musculoskeletal: +herminio pedal edema, no cyanosis. LUE AVF + with thrill. Right arm midline + Skin: right foot intact bulla Hem/Lymphatic: No palpable cervical or supraclavicular nodes. No lymphangitis Psych: no agitation Neurological: unresponsive - Constitutional Vitals: Vital Signs Temp Pulse Resp BP Pulse Ox 100.5 F H 100 H 15 118/68 100 11/26/18 13:46 11/26/18 14:30 11/26/18 14:30 11/26/18 14:30 11/26/18 14:30 Temperature -Last 24 Hours Temperature 100.5 F Temperature 100 F Temperature 100.5 F Temperature 100.5 F Temperature 99.8 F Temperature 99.0 F Temperature 98.9 F Temperature 97.6 F - Labs CBC & Chem 7: 11/26/18 04:34 11/26/18 08:30 Labs: Abnormal lab results 11/25/18 11/25/18 11/26/18 Range/Units 17:43 23:58 04:34 RBC 2.63 L (3.65-5.03) M/mm3 Hgb 7.9 L (11.8-15.2) gm/dl Hct 23.8 L (35.5-45.6) % Plt Count 523 H (140-440) K/mm3 Lymph % (Auto) 13.1 L (13.4-35.0) % [place] % (Auto) 9.6 H (0.0-7.3) % [place] # 0.9 H (0.0-0.8) K/mm3 Seg Neutrophils % 76.0 H (40.0-70.0) % Sodium (137-145) mmol/L Potassium (3.6-5.0) mmol/L Chloride (98-107) mmol/L BUN (9-20) mg/dL Creatinine (0.8-1.5) mg/dL Glucose (75-100) mg/dL POC Glucose 344 H 450 H (70-105) Phosphorus (2.5-4.5) mg/dL 11/26/18 11/26/18 11/26/18 Range/Units 04:34 05:44 08:26 RBC (3.65-5.03) M/mm3 Hgb (11.8-15.2) gm/dl Hct (35.5-45.6) % Plt Count (140-440) K/mm3 Lymph % (Auto) (13.4-35.0) % [place] % (Auto) (0.0-7.3) % [place] # (0.0-0.8) K/mm3 Seg Neutrophils % (40.0-70.0) % Sodium 135 L (137-145) mmol/L Potassium 5.6 H (3.6-5.0) mmol/L Chloride 89.1 L (98-107) mmol/L BUN 82 H (9-20) mg/dL Creatinine 9.6 H (0.8-1.5) mg/dL Glucose 511 H* (75-100) mg/dL POC Glucose 470 H > 500 H (70-105) Phosphorus 6.40 H D (2.5-4.5) mg/dL 11/26/18 11/26/18 11/26/18 Range/Units 08:30 10:46 11:49 RBC (3.65-5.03) M/mm3 Hgb (11.8-15.2) gm/dl Hct (35.5-45.6) % Plt Count (140-440) K/mm3 Lymph % (Auto) (13.4-35.0) % [place] % (Auto) (0.0-7.3) % [place] # (0.0-0.8) K/mm3 Seg Neutrophils % (40.0-70.0) % Sodium 132 L (137-145) mmol/L Potassium 5.3 H (3.6-5.0) mmol/L Chloride 86.6 L (98-107) mmol/L BUN 89 H (9-20) mg/dL Creatinine 10.6 H (0.8-1.5) mg/dL Glucose 531 H* (75-100) mg/dL POC Glucose 414 H 356 H (70-105) Phosphorus (2.5-4.5) mg/dL 11/26/18 Range/Units 14:24 RBC (3.65-5.03) M/mm3 Hgb (11.8-15.2) gm/dl Hct (35.5-45.6) % Plt Count (140-440) K/mm3 Lymph % (Auto) (13.4-35.0) % [place] % (Auto) (0.0-7.3) % [place] # (0.0-0.8) K/mm3 Seg Neutrophils % (40.0-70.0) % Sodium (137-145) mmol/L Potassium (3.6-5.0) mmol/L Chloride (98-107) mmol/L BUN (9-20) mg/dL Creatinine (0.8-1.5) mg/dL Glucose (75-100) mg/dL POC Glucose 267 H (70-105) Phosphorus (2.5-4.5) mg/dL
[2018-11-26 17:20] VITALS: BP 128/68
--- NOTE | 2018-11-26 17:56 | Progress Note ---
Assessment and Plan This is a 42 YO M with anoxic brain injury and strokes, bilaterally post cardiac arrest. Recommend: REviewed MRI Brain, results discussed with pt's mother by the primary team No further recommendations Overall prognosis is poor Fine for LTAC transfer from a neuro standpoint. Subjective Date of service: 11/26/18 Principal diagnosis: Ac hypoxemic resp failure; DKA; Severe sepsis with shock; ESRD on dialysis Interval history: No change. MRI resulted. Objective - Vital Sign Vital Signs - 12hr 11/26/18 11/26/18 11/26/18 05:55 06:01 06:30 Temperature Pulse Rate 97 H 101 H 101 H Pulse Rate [ From Monitor] Respiratory 15 25 H Rate Blood Pressure 148/76 151/82 139/73 O2 Sat by Pulse 100 99 Oximetry O2 Sat by Pulse Oximetry [ Anterior Bilateral Throughout] 11/26/18 11/26/18 11/26/18 07:00 07:08 07:31 Temperature Pulse Rate 104 H 105 H Pulse Rate [ From Monitor] Respiratory 17 12 Rate Blood Pressure 144/81 182/94 O2 Sat by Pulse 99 100 100 Oximetry O2 Sat by Pulse Oximetry [ Anterior Bilateral Throughout] 11/26/18 11/26/18 11/26/18 08:00 08:01 08:30 Temperature 100.5 F H Pulse Rate 103 H 106 H 102 H Pulse Rate [ 101 H From Monitor] Respiratory 9 L 18 Rate Blood Pressure 172/92 160/85 O2 Sat by Pulse 99 100 100 Oximetry O2 Sat by Pulse Oximetry [ Anterior Bilateral Throughout] 11/26/18 11/26/18 11/26/18 09:00 09:30 09:45 Temperature 100.5 F H Pulse Rate 103 H 102 H 100 H Pulse Rate [ From Monitor] Respiratory 36 H 37 H 36 H Rate Blood Pressure 142/77 163/88 163/85 O2 Sat by Pulse 100 100 Oximetry O2 Sat by Pulse 100 Oximetry [ Anterior Bilateral Throughout] 11/26/18 11/26/18 11/26/18 10:00 10:15 10:30 Temperature Pulse Rate 105 H 100 H 101 H Pulse Rate [ From Monitor] Respiratory 14 Rate Blood Pressure 163/85 150/80 131/59 O2 Sat by Pulse 100 Oximetry O2 Sat by Pulse Oximetry [ Anterior Bilateral Throughout] 11/26/18 11/26/18 11/26/18 10:31 10:45 10:48 Temperature Pulse Rate 98 H 99 H 103 H Pulse Rate [ From Monitor] Respiratory 21 Rate Blood Pressure 131/69 126/73 126/73 O2 Sat by Pulse 100 Oximetry O2 Sat by Pulse Oximetry [ Anterior Bilateral Throughout] 11/26/18 11/26/18 11/26/18 11:00 11:01 11:15 Temperature Pulse Rate 100 H 108 H 90 Pulse Rate [ From Monitor] Respiratory 38 H Rate Blood Pressure 110/59 110/59 108/55 O2 Sat by Pulse 100 Oximetry O2 Sat by Pulse Oximetry [ Anterior Bilateral Throughout] 11/26/18 11/26/18 11/26/18 11:30 11:45 12:00 Temperature 100 F H Pulse Rate 96 H 93 H 93 H Pulse Rate [ 105 H From Monitor] Respiratory 22 12 Rate Blood Pressure 101/55 96/60 96/60 O2 Sat by Pulse 100 100 Oximetry O2 Sat by Pulse Oximetry [ Anterior Bilateral Throughout] 11/26/18 11/26/18 11/26/18 12:15 12:30 12:45 Temperature Pulse Rate 91 H 88 94 H Pulse Rate [ From Monitor] Respiratory 28 H Rate Blood Pressure 129/68 121/64 113/60 O2 Sat by Pulse 100 Oximetry O2 Sat by Pulse Oximetry [ Anterior Bilateral Throughout] 11/26/18 11/26/18 11/26/18 13:00 13:30 13:46 Temperature 100.5 F H Pulse Rate 92 H 100 H 99 H Pulse Rate [ From Monitor] Respiratory 29 H 36 H 32 H Rate Blood Pressure 112/63 116/59 122/66 O2 Sat by Pulse 100 100 Oximetry O2 Sat by Pulse 100 Oximetry [ Anterior Bilateral Throughout] 11/26/18 11/26/18 11/26/18 14:00 14:30 15:00 Temperature Pulse Rate 97 H 101 H 102 H Pulse Rate [ From Monitor] Respiratory 29 H 15 36 H Rate Blood Pressure 119/67 124/59 123/67 O2 Sat by Pulse 100 100 100 Oximetry O2 Sat by Pulse Oximetry [ Anterior Bilateral Throughout] 11/26/18 11/26/18 11/26/18 15:30 15:36 16:00 Temperature Pulse Rate 104 H 101 H 105 H Pulse Rate [ 92 H From Monitor] Respiratory 19 18 Rate Blood Pressure 124/59 124/59 116/68 O2 Sat by Pulse 100 100 Oximetry O2 Sat by Pulse Oximetry [ Anterior Bilateral Throughout] 11/26/18 11/26/18 16:30 17:01 Temperature Pulse Rate 102 H 96 H Pulse Rate [ From Monitor] Respiratory 40 H 28 H Rate Blood Pressure 128/76 128/68 O2 Sat by Pulse 100 100 Oximetry O2 Sat by Pulse Oximetry [ Anterior Bilateral Throughout] - General Apperance Constitutional: comfortable - EENT EENT: PERRL - Respiratory Respiratory: lungs clear - Laboratory Findings CBC and BMP: 11/26/18 04:34 11/26/18 08:30 Abnormal Lab Findings: Abnormal Labs 11/06/18 11/06/18 11/06/18 08:22 09:02 09:02 WBC 20.1 H RBC 3.40 L Hgb 10.5 L Hct MCV 119 H MCHC 26 L RDW 15.7 H Plt Count Lymph % (Auto) [place] % (Auto) Lymph # [place] # Seg Neutrophils % 80.1 H Seg Neuts % (Manual) 76.0 H Lymphocytes % (Manual) 4.0 L Monocytes % (Manual) Nucleated RBC % 1.0 H Seg Neutrophils # 16.1 H Seg Neutrophils # Man 15.3 H Lymphocytes # (Manual) 0.8 L Monocytes # (Manual) POC ABG pH POC ABG pCO2 POC ABG pO2 VBG pH Sodium 129 L Potassium 7.7 H* Chloride 79.7 L Carbon Dioxide 4 L* BUN 93 H Creatinine 7.4 H Glucose 1469 H* POC Glucose > 500 H Hemoglobin A1c Lactic Acid Calcium Phosphorus Magnesium Direct Bilirubin AST 2679 H ALT 1175 H C-Reactive Protein Total Protein 6.1 L Albumin 2.9 L Urine WBC (Auto) Salicylates Acetaminophen Heparin-induced Plt Ab 11/06/18 11/06/18 11/06/18 09:02 09:02 09:02 WBC RBC Hgb Hct MCV MCHC RDW Plt Count Lymph % (Auto) [place] % (Auto) Lymph # [place] # Seg Neutrophils % Seg Neuts % (Manual) Lymphocytes % (Manual) Monocytes % (Manual) Nucleated RBC % Seg Neutrophils # Seg Neutrophils # Man Lymphocytes # (Manual) Monocytes # (Manual) POC ABG pH POC ABG pCO2 POC ABG pO2 VBG pH Sodium Potassium Chloride Carbon Dioxide BUN Creatinine Glucose POC Glucose Hemoglobin A1c Lactic Acid 9.40 H* Calcium Phosphorus Magnesium Direct Bilirubin AST ALT C-Reactive Protein Total Protein Albumin Urine WBC (Auto) Salicylates < 0.3 L Acetaminophen < 5.0 L Heparin-induced Plt Ab 11/06/18 11/06/18 11/06/18 09:03 10:19 10:19 WBC RBC Hgb Hct MCV MCHC RDW Plt Count Lymph % (Auto) [place] % (Auto) Lymph # [place] # Seg Neutrophils % Seg Neuts % (Manual) Lymphocytes % (Manual) Monocytes % (Manual) Nucleated RBC % Seg Neutrophils # Seg Neutrophils # Man Lymphocytes # (Manual) Monocytes # (Manual) POC ABG pH 6.841 L POC ABG pCO2 POC ABG pO2 VBG pH Sodium 131 L Potassium 8.9 H* Chloride 85.3 L Carbon Dioxide 6 L* BUN 90 H Creatinine 7.1 H Glucose 1353 H* POC Glucose Hemoglobin A1c Lactic Acid Calcium 7.8 L Phosphorus 14.50 H Magnesium 2.70 H Direct Bilirubin AST ALT C-Reactive Protein Total Protein Albumin Urine WBC (Auto) Salicylates Acetaminophen Heparin-induced Plt Ab 11/06/18 11/06/18 11/06/18 12:07 13:22 13:22 WBC RBC Hgb Hct MCV MCHC RDW Plt Count Lymph % (Auto) [place] % (Auto) Lymph # [place] # Seg Neutrophils % Seg Neuts % (Manual) Lymphocytes % (Manual) Monocytes % (Manual) Nucleated RBC % Seg Neutrophils # Seg Neutrophils # Man Lymphocytes # (Manual) Monocytes # (Manual) POC ABG pH POC ABG pCO2 POC ABG pO2 VBG pH 6.982 L* Sodium 135 L Potassium 7.0 H* D Chloride 88.4 L Carbon Dioxide 5 L* BUN 89 H Creatinine 7.2 H Glucose 1326 H* POC Glucose Hemoglobin A1c Lactic Acid 8.50 H* Calcium Phosphorus Magnesium Direct Bilirubin AST ALT C-Reactive Protein Total Protein Albumin Urine WBC (Auto) Salicylates Acetaminophen Heparin-induced Plt Ab 11/06/18 11/06/18 11/06/18 14:15 14:15 15:21 WBC RBC Hgb Hct MCV MCHC RDW Plt Count Lymph % (Auto) [place] % (Auto) Lymph # [place] # Seg Neutrophils % Seg Neuts % (Manual) Lymphocytes % (Manual) Monocytes % (Manual) Nucleated RBC % Seg Neutrophils # Seg Neutrophils # Man Lymphocytes # (Manual) Monocytes # (Manual) POC ABG pH POC ABG pCO2 POC ABG pO2 VBG pH Sodium Potassium 6.6 H* 6.0 H Chloride 95.3 L 93.3 L Carbon Dioxide 4 L* 6 L* BUN 83 H 91 H Creatinine 6.9 H 7.3 H Glucose 1205 H* 1174 H* POC Glucose Hemoglobin A1c Lactic Acid Calcium 8.2 L Phosphorus 13.00 H Magnesium 2.60 H Direct Bilirubin AST ALT C-Reactive Protein Total Protein Albumin Urine WBC (Auto) Salicylates Acetaminophen Heparin-induced Plt Ab 11/06/18 11/06/18 11/06/18 15:21 16:14 16:33 WBC RBC Hgb Hct MCV MCHC RDW Plt Count Lymph % (Auto) [place] % (Auto) Lymph # [place] # Seg Neutrophils % Seg Neuts % (Manual) Lymphocytes % (Manual) Monocytes % (Manual) Nucleated RBC % Seg Neutrophils # Seg Neutrophils # Man Lymphocytes # (Manual) Monocytes # (Manual) POC ABG pH 7.004 L POC ABG pCO2 33.0 L POC ABG pO2 178 H VBG pH Sodium Potassium Chloride Carbon Dioxide BUN Creatinine Glucose POC Glucose > 500 H Hemoglobin A1c Lactic Acid 7.60 H* Calcium Phosphorus Magnesium Direct Bilirubin AST ALT C-Reactive Protein Total Protein Albumin Urine WBC (Auto) Salicylates Acetaminophen Heparin-induced Plt Ab 11/06/18 11/06/18 11/06/18 17:34 19:30 19:30 WBC RBC Hgb Hct MCV MCHC RDW Plt Count Lymph % (Auto) [place] % (Auto) Lymph # [place] # Seg Neutrophils % Seg Neuts % (Manual) Lymphocytes % (Manual) Monocytes % (Manual) Nucleated RBC % Seg Neutrophils # Seg Neutrophils # Man Lymphocytes # (Manual) Monocytes # (Manual) POC ABG pH POC ABG pCO2 POC ABG pO2 VBG pH Sodium Potassium 5.5 H Chloride 97.4 L 97.7 L Carbon Dioxide 10 L 11 L BUN 88 H 87 H Creatinine 7.5 H 7.6 H Glucose 1054 H* 954 H* POC Glucose Hemoglobin A1c Lactic Acid Calcium 7.7 L 7.4 L Phosphorus Magnesium Direct Bilirubin AST ALT C-Reactive Protein 1.90 H Total Protein Albumin Urine WBC (Auto) Salicylates Acetaminophen Heparin-induced Plt Ab 11/06/18 11/06/18 11/06/18 20:31 20:40 20:40 WBC RBC Hgb Hct MCV MCHC RDW Plt Count Lymph % (Auto) [place] % (Auto) Lymph # [place] # Seg Neutrophils % Seg Neuts % (Manual) Lymphocytes % (Manual) Monocytes % (Manual) Nucleated RBC % Seg Neutrophils # Seg Neutrophils # Man Lymphocytes # (Manual) Monocytes # (Manual) POC ABG pH 7.245 L POC ABG pCO2 POC ABG pO2 132 H VBG pH Sodium Potassium Chloride Carbon Dioxide BUN Creatinine Glucose 907 H* POC Glucose Hemoglobin A1c Lactic Acid 4.40 H* Calcium Phosphorus Magnesium Direct Bilirubin AST ALT C-Reactive Protein Total Protein Albumin Urine WBC (Auto) Salicylates Acetaminophen Heparin-induced Plt Ab 11/06/18 11/06/18 11/06/18 22:05 22:40 23:35 WBC RBC Hgb Hct MCV MCHC RDW Plt Count Lymph % (Auto) [place] % (Auto) Lymph # [place] # Seg Neutrophils % Seg Neuts % (Manual) Lymphocytes % (Manual) Monocytes % (Manual) Nucleated RBC % Seg Neutrophils # Seg Neutrophils # Man Lymphocytes # (Manual) Monocytes # (Manual) POC ABG pH POC ABG pCO2 POC ABG pO2 VBG pH Sodium Potassium Chloride Carbon Dioxide 13 L BUN 86 H Creatinine 7.8 H Glucose 822 H* 726 H* POC Glucose Hemoglobin A1c Lactic Acid 3.40 H* Calcium 7.5 L Phosphorus Magnesium Direct Bilirubin AST ALT C-Reactive Protein Total Protein Albumin Urine WBC (Auto) Salicylates Acetaminophen Heparin-induced Plt Ab 11/07/18 11/07/18 11/07/18 01:25 01:26 03:15 WBC RBC Hgb Hct MCV MCHC RDW Plt Count Lymph % (Auto) [place] % (Auto) Lymph # [place] # Seg Neutrophils % Seg Neuts % (Manual) Lymphocytes % (Manual) Monocytes % (Manual) Nucleated RBC % Seg Neutrophils # Seg Neutrophils # Man Lymphocytes # (Manual) Monocytes # (Manual) POC ABG pH POC ABG pCO2 POC ABG pO2 VBG pH Sodium Potassium Chloride Carbon Dioxide BUN Creatinine Glucose 602 H* POC Glucose > 500 H > 500 H Hemoglobin A1c Lactic Acid Calcium Phosphorus Magnesium Direct Bilirubin AST ALT C-Reactive Protein Total Protein Albumin Urine WBC (Auto) Salicylates Acetaminophen Heparin-induced Plt Ab 11/07/18 11/07/18 11/07/18 03:20 04:32 04:47 WBC RBC Hgb Hct MCV MCHC RDW Plt Count Lymph % (Auto) [place] % (Auto) Lymph # [place] # Seg Neutrophils % Seg Neuts % (Manual) Lymphocytes % (Manual) Monocytes % (Manual) Nucleated RBC % Seg Neutrophils # Seg Neutrophils # Man Lymphocytes # (Manual) Monocytes # (Manual) POC ABG pH POC ABG pCO2 30.3 L POC ABG pO2 153 H VBG pH Sodium 149 H Potassium Chloride Carbon Dioxide 16 L BUN 86 H Creatinine 8.3 H Glucose 499.2 H POC Glucose 360 H Hemoglobin A1c Lactic Acid Calcium 7.6 L Phosphorus Magnesium Direct Bilirubin AST ALT C-Reactive Protein Total Protein Albumin Urine WBC (Auto) Salicylates Acetaminophen Heparin-induced Plt Ab 11/07/18 11/07/18 11/07/18 05:26 06:35 06:36 WBC RBC Hgb Hct MCV MCHC RDW Plt Count Lymph % (Auto) [place] % (Auto) Lymph # [place] # Seg Neutrophils % Seg Neuts % (Manual) Lymphocytes % (Manual) Monocytes % (Manual) Nucleated RBC % Seg Neutrophils # Seg Neutrophils # Man Lymphocytes # (Manual) Monocytes # (Manual) POC ABG pH POC ABG pCO2 POC ABG pO2 VBG pH Sodium 153 H Potassium 3.2 L Chloride 109.7 H Carbon Dioxide BUN 84 H Creatinine 8.6 H Glucose 249 H POC Glucose 341 H 274 H Hemoglobin A1c Lactic Acid Calcium 7.6 L Phosphorus Magnesium Direct Bilirubin AST ALT C-Reactive Protein Total Protein Albumin Urine WBC (Auto) Salicylates Acetaminophen Heparin-induced Plt Ab 11/07/18 11/07/18 11/07/18 07:33 09:00 09:52 WBC RBC Hgb Hct MCV MCHC RDW Plt Count Lymph % (Auto) [place] % (Auto) Lymph # [place] # Seg Neutrophils % Seg Neuts % (Manual) Lymphocytes % (Manual) Monocytes % (Manual) Nucleated RBC % Seg Neutrophils # Seg Neutrophils # Man Lymphocytes # (Manual) Monocytes # (Manual) POC ABG pH POC ABG pCO2 POC ABG pO2 VBG pH Sodium Potassium Chloride Carbon Dioxide BUN Creatinine Glucose POC Glucose 243 H 182 H 227 H Hemoglobin A1c Lactic Acid Calcium Phosphorus Magnesium Direct Bilirubin AST ALT C-Reactive Protein Total Protein Albumin Urine WBC (Auto) Salicylates Acetaminophen Heparin-induced Plt Ab 11/07/18 11/07/18 11/07/18 10:50 10:50 10:50 WBC 11.3 H RBC 2.85 L Hgb 8.7 L Hct 25.3 L D MCV MCHC RDW Plt Count Lymph % (Auto) 9.7 L [place] % (Auto) Lymph # 1.1 L [place] # Seg Neutrophils % 83.3 H Seg Neuts % (Manual) Lymphocytes % (Manual) Monocytes % (Manual) Nucleated RBC % Seg Neutrophils # 9.4 H Seg Neutrophils # Man Lymphocytes # (Manual) Monocytes # (Manual) POC ABG pH POC ABG pCO2 POC ABG pO2 VBG pH Sodium 154 H Potassium 3.2 L Chloride 110.2 H Carbon Dioxide BUN 82 H Creatinine 8.3 H Glucose 186 H POC Glucose 200 H Hemoglobin A1c Lactic Acid Calcium 7.3 L Phosphorus Magnesium Direct Bilirubin AST ALT C-Reactive Protein Total Protein Albumin Urine WBC (Auto) Salicylates Acetaminophen Heparin-induced Plt Ab 11/07/18 11/07/18 11/07/18 12:00 12:05 13:13 WBC RBC Hgb Hct MCV MCHC RDW Plt Count Lymph % (Auto) [place] % (Auto) Lymph # [place] # Seg Neutrophils % Seg Neuts % (Manual) Lymphocytes % (Manual) Monocytes % (Manual) Nucleated RBC % Seg Neutrophils # Seg Neutrophils # Man Lymphocytes # (Manual) Monocytes # (Manual) POC ABG pH POC ABG pCO2 POC ABG pO2 VBG pH Sodium Potassium Chloride Carbon Dioxide BUN Creatinine Glucose POC Glucose 179 H 190 H Hemoglobin A1c Lactic Acid 2.50 H* Calcium Phosphorus Magnesium Direct Bilirubin AST ALT C-Reactive Protein Total Protein Albumin Urine WBC (Auto) Salicylates Acetaminophen Heparin-induced Plt Ab 11/07/18 11/07/18 11/07/18 13:20 14:05 15:18 WBC RBC Hgb Hct MCV MCHC RDW Plt Count Lymph % (Auto) [place] % (Auto) Lymph # [place] # Seg Neutrophils % Seg Neuts % (Manual) Lymphocytes % (Manual) Monocytes % (Manual) Nucleated RBC % Seg Neutrophils # Seg Neutrophils # Man Lymphocytes # (Manual) Monocytes # (Manual) POC ABG pH POC ABG pCO2 POC ABG pO2 VBG pH Sodium Potassium 3.1 L Chloride Carbon Dioxide BUN 50 H Creatinine 5.0 H Glucose 176 H POC Glucose 189 H 215 H Hemoglobin A1c Lactic Acid Calcium 7.4 L Phosphorus Magnesium Direct Bilirubin AST ALT C-Reactive Protein Total Protein Albumin Urine WBC (Auto) Salicylates Acetaminophen Heparin-induced Plt Ab 11/07/18 11/07/18 11/07/18 16:25 17:37 23:23 WBC RBC Hgb Hct MCV MCHC RDW Plt Count Lymph % (Auto) [place] % (Auto) Lymph # [place] # Seg Neutrophils % Seg Neuts % (Manual) Lymphocytes % (Manual) Monocytes % (Manual) Nucleated RBC % Seg Neutrophils # Seg Neutrophils # Man Lymphocytes # (Manual) Monocytes # (Manual) POC ABG pH POC ABG pCO2 POC ABG pO2 VBG pH Sodium Potassium Chloride Carbon Dioxide BUN Creatinine Glucose POC Glucose 180 H 215 H 234 H Hemoglobin A1c Lactic Acid Calcium Phosphorus Magnesium Direct Bilirubin AST ALT C-Reactive Protein Total Protein Albumin Urine WBC (Auto) Salicylates Acetaminophen Heparin-induced Plt Ab 11/08/18 11/08/18 11/08/18 04:17 04:23 04:23 WBC RBC 2.98 L Hgb 9.3 L Hct 26.7 L MCV MCHC 35 H RDW Plt Count 130 L Lymph % (Auto) [place] % (Auto) Lymph # [place] # Seg Neutrophils % 80.3 H Seg Neuts % (Manual) Lymphocytes % (Manual) Monocytes % (Manual) Nucleated RBC % Seg Neutrophils # 7.8 H Seg Neutrophils # Man Lymphocytes # (Manual) Monocytes # (Manual) POC ABG pH 7.520 H POC ABG pCO2 POC ABG pO2 111 H VBG pH Sodium Potassium 3.0 L Chloride Carbon Dioxide BUN 44 H Creatinine 6.3 H Glucose 245 H POC Glucose Hemoglobin A1c Lactic Acid Calcium 7.3 L Phosphorus Magnesium Direct Bilirubin AST ALT C-Reactive Protein Total Protein Albumin Urine WBC (Auto) Salicylates Acetaminophen Heparin-induced Plt Ab 11/08/18 11/08/18 11/08/18 05:19 08:00 08:00 WBC RBC Hgb Hct MCV MCHC RDW Plt Count Lymph % (Auto) [place] % (Auto) Lymph # [place] # Seg Neutrophils % Seg Neuts % (Manual) Lymphocytes % (Manual) Monocytes % (Manual) Nucleated RBC % Seg Neutrophils # Seg Neutrophils # Man Lymphocytes # (Manual) Monocytes # (Manual) POC ABG pH POC ABG pCO2 POC ABG pO2 VBG pH Sodium Potassium Chloride Carbon Dioxide BUN Creatinine Glucose POC Glucose 253 H Hemoglobin A1c Lactic Acid 2.70 H* Calcium Phosphorus Magnesium Direct Bilirubin 0.3 H AST 932 H ALT 582 H C-Reactive Protein Total Protein 5.4 L Albumin 2.6 L Urine WBC (Auto) Salicylates Acetaminophen Heparin-induced Plt Ab 11/08/18 11/08/18 11/08/18 11:36 17:51 21:59 WBC RBC Hgb Hct MCV MCHC RDW Plt Count Lymph % (Auto) [place] % (Auto) Lymph # [place] # Seg Neutrophils % Seg Neuts % (Manual) Lymphocytes % (Manual) Monocytes % (Manual) Nucleated RBC % Seg Neutrophils # Seg Neutrophils # Man Lymphocytes # (Manual) Monocytes # (Manual) POC ABG pH 7.459 H POC ABG pCO2 POC ABG pO2 108 H VBG pH Sodium Potassium Chloride Carbon Dioxide BUN Creatinine Glucose POC Glucose 197 H Hemoglobin A1c Lactic Acid Calcium Phosphorus Magnesium Direct Bilirubin AST ALT C-Reactive Protein Total Protein Albumin Urine WBC (Auto) Salicylates Acetaminophen Heparin-induced Plt Ab Positive H 11/08/18 11/09/18 11/09/18 23:28 00:39 02:20 WBC RBC Hgb Hct MCV MCHC RDW Plt Count Lymph % (Auto) [place] % (Auto) Lymph # [place] # Seg Neutrophils % Seg Neuts % (Manual) Lymphocytes % (Manual) Monocytes % (Manual) Nucleated RBC % Seg Neutrophils # Seg Neutrophils # Man Lymphocytes # (Manual) Monocytes # (Manual) POC ABG pH POC ABG pCO2 POC ABG pO2 VBG pH Sodium Potassium Chloride Carbon Dioxide BUN Creatinine Glucose POC Glucose 418 H 471 H 254 H Hemoglobin A1c Lactic Acid Calcium Phosphorus Magnesium Direct Bilirubin AST ALT C-Reactive Protein Total Protein Albumin Urine WBC (Auto) Salicylates Acetaminophen Heparin-induced Plt Ab 11/09/18 11/09/18 11/09/18 03:48 06:02 06:02 WBC RBC 2.95 L Hgb 9.2 L Hct 26.7 L MCV MCHC RDW Plt Count 101 L Lymph % (Auto) [place] % (Auto) Lymph # [place] # Seg Neutrophils % Seg Neuts % (Manual) Lymphocytes % (Manual) Monocytes % (Manual) Nucleated RBC % Seg Neutrophils # Seg Neutrophils # Man Lymphocytes # (Manual) Monocytes # (Manual) POC ABG pH POC ABG pCO2 POC ABG pO2 108 H VBG pH Sodium 150 H Potassium Chloride 108.3 H Carbon Dioxide BUN 44 H Creatinine 7.7 H Glucose 102 H POC Glucose Hemoglobin A1c Lactic Acid Calcium 7.2 L Phosphorus Magnesium Direct Bilirubin AST 554 H ALT 461 H C-Reactive Protein Total Protein 5.1 L Albumin 2.6 L Urine WBC (Auto) Salicylates Acetaminophen Heparin-induced Plt Ab 11/09/18 11/09/18 11/09/18 17:49 18:49 23:32 WBC RBC Hgb Hct MCV MCHC RDW Plt Count Lymph % (Auto) [place] % (Auto) Lymph # [place] # Seg Neutrophils % Seg Neuts % (Manual) Lymphocytes % (Manual) Monocytes % (Manual) Nucleated RBC % Seg Neutrophils # Seg Neutrophils # Man Lymphocytes # (Manual) Monocytes # (Manual) POC ABG pH POC ABG pCO2 46.2 H POC ABG pO2 VBG pH Sodium Potassium Chloride Carbon Dioxide BUN Creatinine Glucose POC Glucose 184 H 150 H Hemoglobin A1c Lactic Acid Calcium Phosphorus Magnesium Direct Bilirubin AST ALT C-Reactive Protein Total Protein Albumin Urine WBC (Auto) Salicylates Acetaminophen Heparin-induced Plt Ab 11/10/18 11/10/18 11/10/18 02:52 05:00 05:00 WBC RBC 2.95 L Hgb 8.9 L Hct 26.6 L MCV MCHC RDW Plt Count 100 L Lymph % (Auto) [place] % (Auto) Lymph # [place] # Seg Neutrophils % Seg Neuts % (Manual) Lymphocytes % (Manual) Monocytes % (Manual) 8.0 H Nucleated RBC % Seg Neutrophils # Seg Neutrophils # Man Lymphocytes # (Manual) Monocytes # (Manual) POC ABG pH POC ABG pCO2 POC ABG pO2 VBG pH Sodium Potassium Chloride Carbon Dioxide BUN 33 H Creatinine 6.8 H Glucose 251 H POC Glucose 186 H Hemoglobin A1c Lactic Acid Calcium 7.3 L Phosphorus Magnesium Direct Bilirubin AST ALT C-Reactive Protein Total Protein Albumin Urine WBC (Auto) Salicylates Acetaminophen Heparin-induced Plt Ab 11/10/18 11/10/18 11/10/18 05:16 11:47 17:32 WBC RBC Hgb Hct MCV MCHC RDW Plt Count Lymph % (Auto) [place] % (Auto) Lymph # [place] # Seg Neutrophils % Seg Neuts % (Manual) Lymphocytes % (Manual) Monocytes % (Manual) Nucleated RBC % Seg Neutrophils # Seg Neutrophils # Man Lymphocytes # (Manual) Monocytes # (Manual) POC ABG pH POC ABG pCO2 POC ABG pO2 VBG pH Sodium Potassium Chloride Carbon Dioxide BUN Creatinine Glucose POC Glucose 242 H 261 H 194 H Hemoglobin A1c Lactic Acid Calcium Phosphorus Magnesium Direct Bilirubin AST ALT C-Reactive Protein Total Protein Albumin Urine WBC (Auto) Salicylates Acetaminophen Heparin-induced Plt Ab 11/10/18 11/11/18 11/11/18 23:39 00:26 04:24 WBC RBC 2.98 L Hgb 9.1 L Hct 27.4 L MCV MCHC RDW Plt Count 114 L Lymph % (Auto) [place] % (Auto) Lymph # [place] # Seg Neutrophils % Seg Neuts % (Manual) Lymphocytes % (Manual) Monocytes % (Manual) 10.0 H Nucleated RBC % Seg Neutrophils # Seg Neutrophils # Man Lymphocytes # (Manual) Monocytes # (Manual) 1.0 H POC ABG pH POC ABG pCO2 POC ABG pO2 VBG pH Sodium Potassium Chloride Carbon Dioxide BUN Creatinine Glucose POC Glucose 60 L 124 H Hemoglobin A1c Lactic Acid Calcium Phosphorus Magnesium Direct Bilirubin AST ALT C-Reactive Protein Total Protein Albumin Urine WBC (Auto) Salicylates Acetaminophen Heparin-induced Plt Ab 11/11/18 11/11/18 11/11/18 04:24 05:27 05:31 WBC RBC Hgb Hct MCV MCHC RDW Plt Count Lymph % (Auto) [place] % (Auto) Lymph # [place] # Seg Neutrophils % Seg Neuts % (Manual) Lymphocytes % (Manual) Monocytes % (Manual) Nucleated RBC % Seg Neutrophils # Seg Neutrophils # Man Lymphocytes # (Manual) Monocytes # (Manual) POC ABG pH POC ABG pCO2 48.8 H POC ABG pO2 109 H VBG pH Sodium Potassium Chloride Carbon Dioxide BUN 23 H Creatinine 5.5 H Glucose 147 H POC Glucose 172 H Hemoglobin A1c Lactic Acid Calcium 7.9 L Phosphorus Magnesium Direct Bilirubin AST 152 H ALT 247 H C-Reactive Protein Total Protein Albumin 2.3 L Urine WBC (Auto) Salicylates Acetaminophen Heparin-induced Plt Ab 11/11/18 11/11/18 11/11/18 12:11 17:12 23:41 WBC RBC Hgb Hct MCV MCHC RDW Plt Count Lymph % (Auto) [place] % (Auto) Lymph # [place] # Seg Neutrophils % Seg Neuts % (Manual) Lymphocytes % (Manual) Monocytes % (Manual) Nucleated RBC % Seg Neutrophils # Seg Neutrophils # Man Lymphocytes # (Manual) Monocytes # (Manual) POC ABG pH POC ABG pCO2 POC ABG pO2 VBG pH Sodium Potassium Chloride Carbon Dioxide BUN Creatinine Glucose POC Glucose 343 H 188 H 145 H Hemoglobin A1c Lactic Acid Calcium Phosphorus Magnesium Direct Bilirubin AST ALT C-Reactive Protein Total Protein Albumin Urine WBC (Auto) Salicylates Acetaminophen Heparin-induced Plt Ab 11/12/18 11/12/18 11/12/18 00:11 04:44 04:44 WBC RBC 2.91 L Hgb 9.0 L Hct 26.9 L MCV MCHC RDW Plt Count Lymph % (Auto) 12.7 L [place] % (Auto) 14.9 H Lymph # 0.8 L [place] # 1.0 H Seg Neutrophils % 71.2 H Seg Neuts % (Manual) Lymphocytes % (Manual) Monocytes % (Manual) Nucleated RBC % Seg Neutrophils # Seg Neutrophils # Man Lymphocytes # (Manual) Monocytes # (Manual) POC ABG pH POC ABG pCO2 POC ABG pO2 VBG pH Sodium Potassium Chloride Carbon Dioxide BUN 22 H Creatinine 5.0 H Glucose 288 H POC Glucose 151 H Hemoglobin A1c Lactic Acid Calcium Phosphorus Magnesium Direct Bilirubin AST 88 H ALT 187 H C-Reactive Protein Total Protein Albumin 2.9 L Urine WBC (Auto) Salicylates Acetaminophen Heparin-induced Plt Ab 11/12/18 11/12/18 11/12/18 11:48 12:28 17:13 WBC RBC Hgb Hct MCV MCHC RDW Plt Count Lymph % (Auto) [place] % (Auto) Lymph # [place] # Seg Neutrophils % Seg Neuts % (Manual) Lymphocytes % (Manual) Monocytes % (Manual) Nucleated RBC % Seg Neutrophils # Seg Neutrophils # Man Lymphocytes # (Manual) Monocytes # (Manual) POC ABG pH POC ABG pCO2 POC ABG pO2 VBG pH Sodium Potassium Chloride Carbon Dioxide BUN Creatinine Glucose POC Glucose 414 H 437 H 251 H Hemoglobin A1c Lactic Acid Calcium Phosphorus Magnesium Direct Bilirubin AST ALT C-Reactive Protein Total Protein Albumin Urine WBC (Auto) Salicylates Acetaminophen Heparin-induced Plt Ab 11/13/18 11/13/18 11/13/18 00:43 04:14 04:14 WBC RBC 2.62 L Hgb 8.0 L Hct 24.0 L MCV MCHC RDW Plt Count Lymph % (Auto) [place] % (Auto) 15.8 H Lymph # [place] # 0.9 H Seg Neutrophils % Seg Neuts % (Manual) Lymphocytes % (Manual) Monocytes % (Manual) Nucleated RBC % Seg Neutrophils # Seg Neutrophils # Man Lymphocytes # (Manual) Monocytes # (Manual) POC ABG pH POC ABG pCO2 POC ABG pO2 VBG pH Sodium Potassium Chloride Carbon Dioxide BUN 32 H Creatinine 6.9 H Glucose 190 H POC Glucose 149 H Hemoglobin A1c Lactic Acid Calcium Phosphorus Magnesium Direct Bilirubin AST ALT C-Reactive Protein Total Protein Albumin Urine WBC (Auto) Salicylates Acetaminophen Heparin-induced Plt Ab 11/13/18 11/13/18 11/13/18 05:53 10:40 12:05 WBC RBC Hgb Hct MCV MCHC RDW Plt Count Lymph % (Auto) [place] % (Auto) Lymph # [place] # Seg Neutrophils % Seg Neuts % (Manual) Lymphocytes % (Manual) Monocytes % (Manual) Nucleated RBC % Seg Neutrophils # Seg Neutrophils # Man Lymphocytes # (Manual) Monocytes # (Manual) POC ABG pH POC ABG pCO2 POC ABG pO2 VBG pH Sodium Potassium Chloride Carbon Dioxide BUN Creatinine Glucose POC Glucose 270 H 405 H 361 H Hemoglobin A1c Lactic Acid Calcium Phosphorus Magnesium Direct Bilirubin AST ALT C-Reactive Protein Total Protein Albumin Urine WBC (Auto) Salicylates Acetaminophen Heparin-induced Plt Ab 11/13/18 11/13/18 11/14/18 18:48 23:55 04:57 WBC RBC 2.75 L Hgb 8.3 L Hct 25.2 L MCV MCHC RDW Plt Count Lymph % (Auto) [place] % (Auto) 15.8 H Lymph # 0.9 L [place] # 0.9 H Seg Neutrophils % Seg Neuts % (Manual) Lymphocytes % (Manual) Monocytes % (Manual) Nucleated RBC % Seg Neutrophils # Seg Neutrophils # Man Lymphocytes # (Manual) Monocytes # (Manual) POC ABG pH POC ABG pCO2 POC ABG pO2 VBG pH Sodium Potassium Chloride Carbon Dioxide BUN Creatinine Glucose POC Glucose 202 H 254 H Hemoglobin A1c Lactic Acid Calcium Phosphorus Magnesium Direct Bilirubin AST ALT C-Reactive Protein Total Protein Albumin Urine WBC (Auto) Salicylates Acetaminophen Heparin-induced Plt Ab 11/14/18 11/14/18 11/14/18 04:57 05:33 11:37 WBC RBC Hgb Hct MCV MCHC RDW Plt Count Lymph % (Auto) [place] % (Auto) Lymph # [place] # Seg Neutrophils % Seg Neuts % (Manual) Lymphocytes % (Manual) Monocytes % (Manual) Nucleated RBC % Seg Neutrophils # Seg Neutrophils # Man Lymphocytes # (Manual) Monocytes # (Manual) POC ABG pH POC ABG pCO2 POC ABG pO2 VBG pH Sodium 136 L Potassium Chloride 96.7 L Carbon Dioxide BUN 25 H Creatinine 5.3 H Glucose 235 H POC Glucose 242 H 272 H Hemoglobin A1c Lactic Acid Calcium Phosphorus Magnesium Direct Bilirubin AST ALT C-Reactive Protein Total Protein Albumin Urine WBC (Auto) Salicylates Acetaminophen Heparin-induced Plt Ab 11/14/18 11/14/18 11/15/18 18:08 23:21 04:50 WBC RBC 2.76 L Hgb 8.5 L Hct 25.4 L MCV MCHC RDW Plt Count Lymph % (Auto) [place] % (Auto) 14.5 H Lymph # [place] # 1.1 H Seg Neutrophils % Seg Neuts % (Manual) Lymphocytes % (Manual) Monocytes % (Manual) Nucleated RBC % Seg Neutrophils # Seg Neutrophils # Man Lymphocytes # (Manual) Monocytes # (Manual) POC ABG pH POC ABG pCO2 POC ABG pO2 VBG pH Sodium Potassium Chloride Carbon Dioxide BUN Creatinine Glucose POC Glucose 166 H 185 H Hemoglobin A1c Lactic Acid Calcium Phosphorus Magnesium Direct Bilirubin AST ALT C-Reactive Protein Total Protein Albumin Urine WBC (Auto) Salicylates Acetaminophen Heparin-induced Plt Ab 11/15/18 11/15/18 11/15/18 04:50 04:50 06:01 WBC RBC Hgb Hct MCV MCHC RDW Plt Count Lymph % (Auto) [place] % (Auto) Lymph # [place] # Seg Neutrophils % Seg Neuts % (Manual) Lymphocytes % (Manual) Monocytes % (Manual) Nucleated RBC % Seg Neutrophils # Seg Neutrophils # Man Lymphocytes # (Manual) Monocytes # (Manual) POC ABG pH POC ABG pCO2 POC ABG pO2 VBG pH Sodium Potassium Chloride 95.2 L Carbon Dioxide BUN 21 H Creatinine 4.8 H Glucose 126 H POC Glucose 150 H Hemoglobin A1c 10.1 H Lactic Acid Calcium Phosphorus Magnesium Direct Bilirubin AST ALT 69 H C-Reactive Protein Total Protein Albumin 2.7 L Urine WBC (Auto) Salicylates Acetaminophen Heparin-induced Plt Ab 11/15/18 11/15/18 11/16/18 13:06 18:08 00:39 WBC RBC Hgb Hct MCV MCHC RDW Plt Count Lymph % (Auto) [place] % (Auto) Lymph # [place] # Seg Neutrophils % Seg Neuts % (Manual) Lymphocytes % (Manual) Monocytes % (Manual) Nucleated RBC % Seg Neutrophils # Seg Neutrophils # Man Lymphocytes # (Manual) Monocytes # (Manual) POC ABG pH POC ABG pCO2 POC ABG pO2 VBG pH Sodium Potassium Chloride Carbon Dioxide BUN Creatinine Glucose POC Glucose 191 H 114 H 147 H Hemoglobin A1c Lactic Acid Calcium Phosphorus Magnesium Direct Bilirubin AST ALT C-Reactive Protein Total Protein Albumin Urine WBC (Auto) Salicylates Acetaminophen Heparin-induced Plt Ab 06/03/2711/16/18 11/16/18 04:49 04:49 06:09 WBC RBC 2.60 L Hgb 8.0 L Hct 23.4 L MCV MCHC RDW Plt Count Lymph % (Auto) [place] % (Auto) 14.1 H Lymph # [place] # 1.2 H Seg Neutrophils % Seg Neuts % (Manual) Lymphocytes % (Manual) Monocytes % (Manual) Nucleated RBC % Seg Neutrophils # Seg Neutrophils # Man Lymphocytes # (Manual) Monocytes # (Manual) POC ABG pH POC ABG pCO2 POC ABG pO2 VBG pH Sodium 136 L Potassium Chloride 94.1 L Carbon Dioxide BUN 39 H Creatinine 7.4 H D Glucose 243 H POC Glucose 308 H Hemoglobin A1c Lactic Acid Calcium 8.3 L Phosphorus Magnesium Direct Bilirubin AST ALT C-Reactive Protein Total Protein Albumin 2.2 L Urine WBC (Auto) Salicylates Acetaminophen Heparin-induced Plt Ab 11/16/18 11/16/18 11/16/18 08:52 11:53 17:11 WBC RBC Hgb Hct MCV MCHC RDW Plt Count Lymph % (Auto) [place] % (Auto) Lymph # [place] # Seg Neutrophils % Seg Neuts % (Manual) Lymphocytes % (Manual) Monocytes % (Manual) Nucleated RBC % Seg Neutrophils # Seg Neutrophils # Man Lymphocytes # (Manual) Monocytes # (Manual) POC ABG pH POC ABG pCO2 POC ABG pO2 VBG pH Sodium Potassium Chloride Carbon Dioxide BUN Creatinine Glucose POC Glucose 278 H 178 H 173 H Hemoglobin A1c Lactic Acid Calcium Phosphorus Magnesium Direct Bilirubin AST ALT C-Reactive Protein Total Protein Albumin Urine WBC (Auto) Salicylates Acetaminophen Heparin-induced Plt Ab 11/16/18 11/17/18 11/17/18 21:27 00:08 04:45 WBC RBC 2.58 L Hgb 7.9 L Hct 23.5 L MCV MCHC RDW Plt Count Lymph % (Auto) [place] % (Auto) 10.3 H Lymph # [place] # 1.1 H Seg Neutrophils % 74.8 H Seg Neuts % (Manual) Lymphocytes % (Manual) Monocytes % (Manual) Nucleated RBC % Seg Neutrophils # Seg Neutrophils # Man Lymphocytes # (Manual) Monocytes # (Manual) POC ABG pH POC ABG pCO2 POC ABG pO2 VBG pH Sodium Potassium Chloride Carbon Dioxide BUN Creatinine Glucose POC Glucose 206 H 151 H Hemoglobin A1c Lactic Acid Calcium Phosphorus Magnesium Direct Bilirubin AST ALT C-Reactive Protein Total Protein Albumin Urine WBC (Auto) Salicylates Acetaminophen Heparin-induced Plt Ab 11/17/18 11/17/18 11/17/18 04:45 05:12 05:31 WBC RBC Hgb Hct MCV MCHC RDW Plt Count Lymph % (Auto) [place] % (Auto) Lymph # [place] # Seg Neutrophils % Seg Neuts % (Manual) Lymphocytes % (Manual) Monocytes % (Manual) Nucleated RBC % Seg Neutrophils # Seg Neutrophils # Man Lymphocytes # (Manual) Monocytes # (Manual) POC ABG pH 7.481 H POC ABG pCO2 POC ABG pO2 VBG pH Sodium 136 L Potassium Chloride 94.4 L Carbon Dioxide BUN 38 H Creatinine 6.8 H Glucose POC Glucose 111 H Hemoglobin A1c Lactic Acid Calcium Phosphorus Magnesium 2.40 H Direct Bilirubin AST ALT C-Reactive Protein Total Protein Albumin Urine WBC (Auto) Salicylates Acetaminophen Heparin-induced Plt Ab 11/17/18 11/17/18 11/18/18 12:10 23:23 04:24 WBC RBC 2.66 L Hgb 8.2 L Hct 24.0 L MCV MCHC RDW Plt Count 448 H Lymph % (Auto) [place] % (Auto) 12.7 H Lymph # [place] # 1.4 H Seg Neutrophils % 71.9 H Seg Neuts % (Manual) Lymphocytes % (Manual) Monocytes % (Manual) Nucleated RBC % Seg Neutrophils # Seg Neutrophils # Man Lymphocytes # (Manual) Monocytes # (Manual) POC ABG pH POC ABG pCO2 POC ABG pO2 VBG pH Sodium Potassium Chloride Carbon Dioxide BUN Creatinine Glucose POC Glucose 174 H 243 H Hemoglobin A1c Lactic Acid Calcium Phosphorus Magnesium Direct Bilirubin AST ALT C-Reactive Protein Total Protein Albumin Urine WBC (Auto) Salicylates Acetaminophen Heparin-induced Plt Ab 11/18/18 11/18/18 11/18/18 04:24 05:26 11:48 WBC RBC Hgb Hct MCV MCHC RDW Plt Count Lymph % (Auto) [place] % (Auto) Lymph # [place] # Seg Neutrophils % Seg Neuts % (Manual) Lymphocytes % (Manual) Monocytes % (Manual) Nucleated RBC % Seg Neutrophils # Seg Neutrophils # Man Lymphocytes # (Manual) Monocytes # (Manual) POC ABG pH POC ABG pCO2 POC ABG pO2 VBG pH Sodium 136 L Potassium Chloride 93.1 L Carbon Dioxide BUN 30 H Creatinine 5.9 H Glucose 211 H POC Glucose 205 H 162 H Hemoglobin A1c Lactic Acid Calcium Phosphorus Magnesium Direct Bilirubin AST ALT C-Reactive Protein Total Protein Albumin Urine WBC (Auto) Salicylates Acetaminophen Heparin-induced Plt Ab 11/18/18 11/18/18 11/18/18 12:01 19:37 23:21 WBC RBC Hgb Hct MCV MCHC RDW Plt Count Lymph % (Auto) [place] % (Auto) Lymph # [place] # Seg Neutrophils % Seg Neuts % (Manual) Lymphocytes % (Manual) Monocytes % (Manual) Nucleated RBC % Seg Neutrophils # Seg Neutrophils # Man Lymphocytes # (Manual) Monocytes # (Manual) POC ABG pH POC ABG pCO2 POC ABG pO2 VBG pH Sodium Potassium Chloride Carbon Dioxide BUN Creatinine Glucose POC Glucose 207 H 245 H Hemoglobin A1c Lactic Acid Calcium Phosphorus Magnesium Direct Bilirubin AST ALT C-Reactive Protein Total Protein Albumin Urine WBC (Auto) > 182.0 H Salicylates Acetaminophen Heparin-induced Plt Ab 11/19/18 11/19/18 11/19/18 04:24 05:21 12:01 WBC RBC Hgb Hct MCV MCHC RDW Plt Count Lymph % (Auto) [place] % (Auto) Lymph # [place] # Seg Neutrophils % Seg Neuts % (Manual) Lymphocytes % (Manual) Monocytes % (Manual) Nucleated RBC % Seg Neutrophils # Seg Neutrophils # Man Lymphocytes # (Manual) Monocytes # (Manual) POC ABG pH POC ABG pCO2 POC ABG pO2 VBG pH Sodium 134 L Potassium 5.4 H Chloride 89.8 L Carbon Dioxide BUN 54 H Creatinine 8.0 H Glucose 240 H POC Glucose 234 H 179 H Hemoglobin A1c Lactic Acid Calcium Phosphorus Magnesium Direct Bilirubin AST ALT C-Reactive Protein Total Protein Albumin Urine WBC (Auto) Salicylates Acetaminophen Heparin-induced Plt Ab 11/19/18 11/19/18 11/19/18 12:41 17:32 21:53 WBC 13.7 H RBC 2.73 L Hgb 8.3 L Hct 24.9 L MCV MCHC RDW Plt Count 479 H Lymph % (Auto) [place] % (Auto) Lymph # [place] # Seg Neutrophils % Seg Neuts % (Manual) Lymphocytes % (Manual) Monocytes % (Manual) Nucleated RBC % Seg Neutrophils # Seg Neutrophils # Man Lymphocytes # (Manual) Monocytes # (Manual) POC ABG pH POC ABG pCO2 POC ABG pO2 VBG pH Sodium Potassium Chloride Carbon Dioxide BUN Creatinine Glucose POC Glucose 317 H 421 H Hemoglobin A1c Lactic Acid Calcium Phosphorus Magnesium Direct Bilirubin AST ALT C-Reactive Protein Total Protein Albumin Urine WBC (Auto) Salicylates Acetaminophen Heparin-induced Plt Ab 11/19/18 11/20/18 11/20/18 23:16 06:03 10:25 WBC 11.9 H RBC 2.58 L Hgb 7.8 L Hct 23.1 L MCV MCHC RDW Plt Count 444 H Lymph % (Auto) [place] % (Auto) Lymph # [place] # Seg Neutrophils % Seg Neuts % (Manual) Lymphocytes % (Manual) Monocytes % (Manual) Nucleated RBC % Seg Neutrophils # Seg Neutrophils # Man Lymphocytes # (Manual) Monocytes # (Manual) POC ABG pH POC ABG pCO2 POC ABG pO2 VBG pH Sodium Potassium Chloride Carbon Dioxide BUN Creatinine Glucose POC Glucose 396 H 294 H Hemoglobin A1c Lactic Acid Calcium Phosphorus Magnesium Direct Bilirubin AST ALT C-Reactive Protein Total Protein Albumin Urine WBC (Auto) Salicylates Acetaminophen Heparin-induced Plt Ab 11/20/18 11/20/18 11/20/18 10:25 12:39 16:34 WBC RBC Hgb Hct MCV MCHC RDW Plt Count Lymph % (Auto) [place] % (Auto) Lymph # [place] # Seg Neutrophils % Seg Neuts % (Manual) Lymphocytes % (Manual) Monocytes % (Manual) Nucleated RBC % Seg Neutrophils # Seg Neutrophils # Man Lymphocytes # (Manual) Monocytes # (Manual) POC ABG pH POC ABG pCO2 POC ABG pO2 VBG pH Sodium 135 L Potassium 6.1 H* 5.1 H Chloride 89.8 L Carbon Dioxide BUN 55 H Creatinine 8.2 H Glucose 302 H POC Glucose 245 H Hemoglobin A1c Lactic Acid Calcium Phosphorus Magnesium Direct Bilirubin AST ALT C-Reactive Protein Total Protein Albumin Urine WBC (Auto) Salicylates Acetaminophen Heparin-induced Plt Ab 11/20/18 11/20/18 11/20/18 17:45 18:16 23:12 WBC RBC Hgb Hct MCV MCHC RDW Plt Count Lymph % (Auto) [place] % (Auto) Lymph # [place] # Seg Neutrophils % Seg Neuts % (Manual) Lymphocytes % (Manual) Monocytes % (Manual) Nucleated RBC % Seg Neutrophils # Seg Neutrophils # Man Lymphocytes # (Manual) Monocytes # (Manual) POC ABG pH POC ABG pCO2 POC ABG pO2 VBG pH Sodium Potassium 5.2 H Chloride 90.2 L Carbon Dioxide BUN 60 H Creatinine 8.9 H Glucose 217 H POC Glucose 211 H 320 H Hemoglobin A1c Lactic Acid Calcium Phosphorus Magnesium Direct Bilirubin AST ALT C-Reactive Protein Total Protein Albumin Urine WBC (Auto) Salicylates Acetaminophen Heparin-induced Plt Ab 11/21/18 11/21/18 11/21/18 04:44 04:44 05:32 WBC RBC 2.51 L Hgb 7.8 L Hct 22.3 L MCV MCHC 35 H RDW Plt Count Lymph % (Auto) [place] % (Auto) 9.5 H Lymph # [place] # 1.0 H Seg Neutrophils % 72.3 H Seg Neuts % (Manual) Lymphocytes % (Manual) Monocytes % (Manual) Nucleated RBC % Seg Neutrophils # Seg Neutrophils # Man Lymphocytes # (Manual) Monocytes # (Manual) POC ABG pH POC ABG pCO2 POC ABG pO2 VBG pH Sodium Potassium Chloride 92.7 L Carbon Dioxide BUN 36 H Creatinine 5.9 H Glucose 209 H POC Glucose 203 H Hemoglobin A1c Lactic Acid Calcium Phosphorus 5.50 H Magnesium Direct Bilirubin AST ALT C-Reactive Protein Total Protein Albumin Urine WBC (Auto) Salicylates Acetaminophen Heparin-induced Plt Ab 11/21/18 11/21/18 11/21/18 10:45 12:18 17:49 WBC RBC Hgb Hct MCV MCHC RDW Plt Count Lymph % (Auto) [place] % (Auto) Lymph # [place] # Seg Neutrophils % Seg Neuts % (Manual) Lymphocytes % (Manual) Monocytes % (Manual) Nucleated RBC % Seg Neutrophils # Seg Neutrophils # Man Lymphocytes # (Manual) Monocytes # (Manual) POC ABG pH 7.473 H POC ABG pCO2 POC ABG pO2 121 H VBG pH Sodium Potassium Chloride Carbon Dioxide BUN Creatinine Glucose POC Glucose 149 H 233 H Hemoglobin A1c Lactic Acid Calcium Phosphorus Magnesium Direct Bilirubin AST ALT C-Reactive Protein Total Protein Albumin Urine WBC (Auto) Salicylates Acetaminophen Heparin-induced Plt Ab 11/21/18 11/22/18 11/22/18 23:39 04:52 04:52 WBC 15.1 H RBC 2.59 L Hgb 7.6 L Hct 23.5 L MCV MCHC RDW Plt Count 472 H Lymph % (Auto) 9.9 L [place] % (Auto) 9.7 H Lymph # [place] # 1.5 H Seg Neutrophils % 79.2 H Seg Neuts % (Manual) Lymphocytes % (Manual) Monocytes % (Manual) Nucleated RBC % Seg Neutrophils # 11.9 H Seg Neutrophils # Man Lymphocytes # (Manual) Monocytes # (Manual) POC ABG pH POC ABG pCO2 POC ABG pO2 VBG pH Sodium Potassium Chloride 94.9 L Carbon Dioxide BUN 34 H Creatinine 5.6 H Glucose 182 H POC Glucose 235 H Hemoglobin A1c Lactic Acid Calcium Phosphorus Magnesium Direct Bilirubin AST ALT C-Reactive Protein Total Protein Albumin Urine WBC (Auto) Salicylates Acetaminophen Heparin-induced Plt Ab 11/22/18 11/22/18 11/22/18 05:49 11:39 16:20 WBC RBC Hgb Hct MCV MCHC RDW Plt Count Lymph % (Auto) [place] % (Auto) Lymph # [place] # Seg Neutrophils % Seg Neuts % (Manual) Lymphocytes % (Manual) Monocytes % (Manual) Nucleated RBC % Seg Neutrophils # Seg Neutrophils # Man Lymphocytes # (Manual) Monocytes # (Manual) POC ABG pH POC ABG pCO2 POC ABG pO2 VBG pH Sodium Potassium Chloride Carbon Dioxide BUN Creatinine Glucose POC Glucose 264 H 277 H 303 H Hemoglobin A1c Lactic Acid Calcium Phosphorus Magnesium Direct Bilirubin AST ALT C-Reactive Protein Total Protein Albumin Urine WBC (Auto) Salicylates Acetaminophen Heparin-induced Plt Ab 11/22/18 11/23/18 11/23/18 23:17 04:39 04:39 WBC 12.6 H RBC 2.36 L Hgb 7.1 L Hct 21.2 L MCV MCHC RDW Plt Count Lymph % (Auto) 11.8 L [place] % (Auto) 9.8 H Lymph # [place] # 1.2 H Seg Neutrophils % 77.8 H Seg Neuts % (Manual) Lymphocytes % (Manual) Monocytes % (Manual) Nucleated RBC % Seg Neutrophils # 9.8 H Seg Neutrophils # Man Lymphocytes # (Manual) Monocytes # (Manual) POC ABG pH POC ABG pCO2 POC ABG pO2 VBG pH Sodium 135 L Potassium Chloride 90.4 L Carbon Dioxide BUN 60 H Creatinine 8.5 H D Glucose 345 H POC Glucose 232 H Hemoglobin A1c Lactic Acid Calcium Phosphorus 5.20 H D Magnesium Direct Bilirubin AST ALT C-Reactive Protein Total Protein Albumin Urine WBC (Auto) Salicylates Acetaminophen Heparin-induced Plt Ab 11/23/18 11/23/18 11/23/18 05:49 05:53 12:05 WBC RBC Hgb Hct MCV MCHC RDW Plt Count Lymph % (Auto) [place] % (Auto) Lymph # [place] # Seg Neutrophils % Seg Neuts % (Manual) Lymphocytes % (Manual) Monocytes % (Manual) Nucleated RBC % Seg Neutrophils # Seg Neutrophils # Man Lymphocytes # (Manual) Monocytes # (Manual) POC ABG pH POC ABG pCO2 POC ABG pO2 VBG pH Sodium Potassium Chloride Carbon Dioxide BUN Creatinine Glucose POC Glucose 410 H 366 H 335 H Hemoglobin A1c Lactic Acid Calcium Phosphorus Magnesium Direct Bilirubin AST ALT C-Reactive Protein Total Protein Albumin Urine WBC (Auto) Salicylates Acetaminophen Heparin-induced Plt Ab 11/23/18 11/23/18 11/23/18 18:00 18:16 21:28 WBC RBC Hgb Hct MCV MCHC RDW Plt Count Lymph % (Auto) [place] % (Auto) Lymph # [place] # Seg Neutrophils % Seg Neuts % (Manual) Lymphocytes % (Manual) Monocytes % (Manual) Nucleated RBC % Seg Neutrophils # Seg Neutrophils # Man Lymphocytes # (Manual) Monocytes # (Manual) POC ABG pH POC ABG pCO2 POC ABG pO2 VBG pH Sodium Potassium Chloride Carbon Dioxide BUN Creatinine Glucose POC Glucose 401 H 326 H Hemoglobin A1c Lactic Acid Calcium Phosphorus Magnesium Direct Bilirubin AST ALT C-Reactive Protein Total Protein Albumin Urine WBC (Auto) > 182.0 H Salicylates Acetaminophen Heparin-induced Plt Ab 11/23/18 11/24/18 11/24/18 23:02 05:18 05:18 WBC RBC 2.44 L Hgb 7.4 L Hct 21.9 L MCV MCHC RDW Plt Count 447 H Lymph % (Auto) [place] % (Auto) 10.1 H Lymph # [place] # 1.1 H Seg Neutrophils % 75.4 H Seg Neuts % (Manual) Lymphocytes % (Manual) Monocytes % (Manual) Nucleated RBC % Seg Neutrophils # 8.0 H Seg Neutrophils # Man Lymphocytes # (Manual) Monocytes # (Manual) POC ABG pH POC ABG pCO2 POC ABG pO2 VBG pH Sodium Potassium Chloride 91.7 L Carbon Dioxide BUN 88 H Creatinine 11.3 H Glucose 320 H POC Glucose 305 H Hemoglobin A1c Lactic Acid Calcium Phosphorus 6.60 H D Magnesium Direct Bilirubin AST ALT C-Reactive Protein Total Protein Albumin Urine WBC (Auto) Salicylates Acetaminophen Heparin-induced Plt Ab 11/24/18 11/24/18 11/24/18 05:32 11:07 12:13 WBC RBC Hgb Hct MCV MCHC RDW Plt Count Lymph % (Auto) [place] % (Auto) Lymph # [place] # Seg Neutrophils % Seg Neuts % (Manual) Lymphocytes % (Manual) Monocytes % (Manual) Nucleated RBC % Seg Neutrophils # Seg Neutrophils # Man Lymphocytes # (Manual) Monocytes # (Manual) POC ABG pH POC ABG pCO2 POC ABG pO2 VBG pH Sodium Potassium Chloride Carbon Dioxide BUN Creatinine Glucose POC Glucose 356 H 352 H 355 H Hemoglobin A1c Lactic Acid Calcium Phosphorus Magnesium Direct Bilirubin AST ALT C-Reactive Protein Total Protein Albumin Urine WBC (Auto) Salicylates Acetaminophen Heparin-induced Plt Ab 11/24/18 11/24/18 11/24/18 13:27 14:34 15:03 WBC RBC Hgb Hct MCV MCHC RDW Plt Count Lymph % (Auto) [place] % (Auto) Lymph # [place] # Seg Neutrophils % Seg Neuts % (Manual) Lymphocytes % (Manual) Monocytes % (Manual) Nucleated RBC % Seg Neutrophils # Seg Neutrophils # Man Lymphocytes # (Manual) Monocytes # (Manual) POC ABG pH 7.503 H POC ABG pCO2 POC ABG pO2 146 H VBG pH Sodium Potassium Chloride Carbon Dioxide BUN Creatinine Glucose POC Glucose 267 H 193 H Hemoglobin A1c Lactic Acid Calcium Phosphorus Magnesium Direct Bilirubin AST ALT C-Reactive Protein Total Protein Albumin Urine WBC (Auto) Salicylates Acetaminophen Heparin-induced Plt Ab 11/24/18 11/24/18 11/24/18 15:32 16:24 17:30 WBC RBC Hgb Hct MCV MCHC RDW Plt Count Lymph % (Auto) [place] % (Auto) Lymph # [place] # Seg Neutrophils % Seg Neuts % (Manual) Lymphocytes % (Manual) Monocytes % (Manual) Nucleated RBC % Seg Neutrophils # Seg Neutrophils # Man Lymphocytes # (Manual) Monocytes # (Manual) POC ABG pH POC ABG pCO2 POC ABG pO2 VBG pH Sodium Potassium Chloride Carbon Dioxide BUN Creatinine Glucose POC Glucose 182 H 216 H 207 H Hemoglobin A1c Lactic Acid Calcium Phosphorus Magnesium Direct Bilirubin AST ALT C-Reactive Protein Total Protein Albumin Urine WBC (Auto) Salicylates Acetaminophen Heparin-induced Plt Ab 11/24/18 11/24/18 11/24/18 18:46 20:02 20:59 WBC RBC Hgb Hct MCV MCHC RDW Plt Count Lymph % (Auto) [place] % (Auto) Lymph # [place] # Seg Neutrophils % Seg Neuts % (Manual) Lymphocytes % (Manual) Monocytes % (Manual) Nucleated RBC % Seg Neutrophils # Seg Neutrophils # Man Lymphocytes # (Manual) Monocytes # (Manual) POC ABG pH POC ABG pCO2 POC ABG pO2 VBG pH Sodium Potassium Chloride Carbon Dioxide BUN Creatinine Glucose POC Glucose 206 H 217 H 243 H Hemoglobin A1c Lactic Acid Calcium Phosphorus Magnesium Direct Bilirubin AST ALT C-Reactive Protein Total Protein Albumin Urine WBC (Auto) Salicylates Acetaminophen Heparin-induced Plt Ab 11/24/18 11/24/18 11/25/18 22:12 23:02 00:02 WBC RBC Hgb Hct MCV MCHC RDW Plt Count Lymph % (Auto) [place] % (Auto) Lymph # [place] # Seg Neutrophils % Seg Neuts % (Manual) Lymphocytes % (Manual) Monocytes % (Manual) Nucleated RBC % Seg Neutrophils # Seg Neutrophils # Man Lymphocytes # (Manual) Monocytes # (Manual) POC ABG pH POC ABG pCO2 POC ABG pO2 VBG pH Sodium Potassium Chloride Carbon Dioxide BUN Creatinine Glucose POC Glucose 221 H 180 H 133 H Hemoglobin A1c Lactic Acid Calcium Phosphorus Magnesium Direct Bilirubin AST ALT C-Reactive Protein Total Protein Albumin Urine WBC (Auto) Salicylates Acetaminophen Heparin-induced Plt Ab 11/25/18 11/25/18 11/25/18 01:03 02:13 03:12 WBC RBC Hgb Hct MCV MCHC RDW Plt Count Lymph % (Auto) [place] % (Auto) Lymph # [place] # Seg Neutrophils % Seg Neuts % (Manual) Lymphocytes % (Manual) Monocytes % (Manual) Nucleated RBC % Seg Neutrophils # Seg Neutrophils # Man Lymphocytes # (Manual) Monocytes # (Manual) POC ABG pH POC ABG pCO2 POC ABG pO2 VBG pH Sodium Potassium Chloride Carbon Dioxide BUN Creatinine Glucose POC Glucose 120 H 133 H 160 H Hemoglobin A1c Lactic Acid Calcium Phosphorus Magnesium Direct Bilirubin AST ALT C-Reactive Protein Total Protein Albumin Urine WBC (Auto) Salicylates Acetaminophen Heparin-induced Plt Ab 11/25/18 11/25/18 11/25/18 04:11 04:14 04:14 WBC 12.1 H RBC 2.53 L Hgb 7.8 L Hct 23.8 L MCV MCHC RDW Plt Count Lymph % (Auto) [place] % (Auto) Lymph # [place] # Seg Neutrophils % Seg Neuts % (Manual) Lymphocytes % (Manual) Monocytes % (Manual) Nucleated RBC % Seg Neutrophils # Seg Neutrophils # Man Lymphocytes # (Manual) Monocytes # (Manual) POC ABG pH POC ABG pCO2 POC ABG pO2 VBG pH Sodium Potassium Chloride 93.6 L Carbon Dioxide BUN 53 H Creatinine 7.3 H Glucose 135 H POC Glucose 161 H Hemoglobin A1c Lactic Acid Calcium Phosphorus 5.30 H Magnesium Direct Bilirubin AST ALT C-Reactive Protein Total Protein Albumin Urine WBC (Auto) Salicylates Acetaminophen Heparin-induced Plt Ab 11/25/18 11/25/18 11/25/18 05:17 06:02 07:08 WBC RBC Hgb Hct MCV MCHC RDW Plt Count Lymph % (Auto) [place] % (Auto) Lymph # [place] # Seg Neutrophils % Seg Neuts % (Manual) Lymphocytes % (Manual) Monocytes % (Manual) Nucleated RBC % Seg Neutrophils # Seg Neutrophils # Man Lymphocytes # (Manual) Monocytes # (Manual) POC ABG pH POC ABG pCO2 POC ABG pO2 VBG pH Sodium Potassium Chloride Carbon Dioxide BUN Creatinine Glucose POC Glucose 178 H 146 H 159 H Hemoglobin A1c Lactic Acid Calcium Phosphorus Magnesium Direct Bilirubin AST ALT C-Reactive Protein Total Protein Albumin Urine WBC (Auto) Salicylates Acetaminophen Heparin-induced Plt Ab 11/25/18 11/25/18 11/25/18 08:11 09:14 10:10 WBC RBC Hgb Hct MCV MCHC RDW Plt Count Lymph % (Auto) [place] % (Auto) Lymph # [place] # Seg Neutrophils % Seg Neuts % (Manual) Lymphocytes % (Manual) Monocytes % (Manual) Nucleated RBC % Seg Neutrophils # Seg Neutrophils # Man Lymphocytes # (Manual) Monocytes # (Manual) POC ABG pH POC ABG pCO2 POC ABG pO2 VBG pH Sodium Potassium Chloride Carbon Dioxide BUN Creatinine Glucose POC Glucose 150 H 162 H 168 H Hemoglobin A1c Lactic Acid Calcium Phosphorus Magnesium Direct Bilirubin AST ALT C-Reactive Protein Total Protein Albumin Urine WBC (Auto) Salicylates Acetaminophen Heparin-induced Plt Ab 11/25/18 11/25/18 11/25/18 11:13 12:24 13:06 WBC RBC Hgb Hct MCV MCHC RDW Plt Count Lymph % (Auto) [place] % (Auto) Lymph # [place] # Seg Neutrophils % Seg Neuts % (Manual) Lymphocytes % (Manual) Monocytes % (Manual) Nucleated RBC % Seg Neutrophils # Seg Neutrophils # Man Lymphocytes # (Manual) Monocytes # (Manual) POC ABG pH POC ABG pCO2 POC ABG pO2 VBG pH Sodium Potassium Chloride Carbon Dioxide BUN Creatinine Glucose POC Glucose 152 H 142 H 141 H Hemoglobin A1c Lactic Acid Calcium Phosphorus Magnesium Direct Bilirubin AST ALT C-Reactive Protein Total Protein Albumin Urine WBC (Auto) Salicylates Acetaminophen Heparin-induced Plt Ab 11/25/18 11/25/18 11/25/18 14:16 17:43 23:58 WBC RBC Hgb Hct MCV MCHC RDW Plt Count Lymph % (Auto) [place] % (Auto) Lymph # [place] # Seg Neutrophils % Seg Neuts % (Manual) Lymphocytes % (Manual) Monocytes % (Manual) Nucleated RBC % Seg Neutrophils # Seg Neutrophils # Man Lymphocytes # (Manual) Monocytes # (Manual) POC ABG pH POC ABG pCO2 POC ABG pO2 VBG pH Sodium Potassium Chloride Carbon Dioxide BUN Creatinine Glucose POC Glucose 147 H 344 H 450 H Hemoglobin A1c Lactic Acid Calcium Phosphorus Magnesium Direct Bilirubin AST ALT C-Reactive Protein Total Protein Albumin Urine WBC (Auto) Salicylates Acetaminophen Heparin-induced Plt Ab 11/26/18 11/26/18 11/26/18 04:34 04:34 05:44 WBC RBC 2.63 L Hgb 7.9 L Hct 23.8 L MCV MCHC RDW Plt Count 523 H Lymph % (Auto) 13.1 L [place] % (Auto) 9.6 H Lymph # [place] # 0.9 H Seg Neutrophils % 76.0 H Seg Neuts % (Manual) Lymphocytes % (Manual) Monocytes % (Manual) Nucleated RBC % Seg Neutrophils # Seg Neutrophils # Man Lymphocytes # (Manual) Monocytes # (Manual) POC ABG pH POC ABG pCO2 POC ABG pO2 VBG pH Sodium 135 L Potassium 5.6 H Chloride 89.1 L Carbon Dioxide BUN 82 H Creatinine 9.6 H Glucose 511 H* POC Glucose 470 H Hemoglobin A1c Lactic Acid Calcium Phosphorus 6.40 H D Magnesium Direct Bilirubin AST ALT C-Reactive Protein Total Protein Albumin Urine WBC (Auto) Salicylates Acetaminophen Heparin-induced Plt Ab 11/26/18 11/26/18 11/26/18 08:26 08:30 10:46 WBC RBC Hgb Hct MCV MCHC RDW Plt Count Lymph % (Auto) [place] % (Auto) Lymph # [place] # Seg Neutrophils % Seg Neuts % (Manual) Lymphocytes % (Manual) Monocytes % (Manual) Nucleated RBC % Seg Neutrophils # Seg Neutrophils # Man Lymphocytes # (Manual) Monocytes # (Manual) POC ABG pH POC ABG pCO2 POC ABG pO2 VBG pH Sodium 132 L Potassium 5.3 H Chloride 86.6 L Carbon Dioxide BUN 89 H Creatinine 10.6 H Glucose 531 H* POC Glucose > 500 H 414 H Hemoglobin A1c Lactic Acid Calcium Phosphorus Magnesium Direct Bilirubin AST ALT C-Reactive Protein Total Protein Albumin Urine WBC (Auto) Salicylates Acetaminophen Heparin-induced Plt Ab 11/26/18 11/26/18 11/26/18 11:49 14:24 17:37 WBC RBC Hgb Hct MCV MCHC RDW Plt Count Lymph % (Auto) [place] % (Auto) Lymph # [place] # Seg Neutrophils % Seg Neuts % (Manual) Lymphocytes % (Manual) Monocytes % (Manual) Nucleated RBC % Seg Neutrophils # Seg Neutrophils # Man Lymphocytes # (Manual) Monocytes # (Manual) POC ABG pH POC ABG pCO2 POC ABG pO2 VBG pH Sodium Potassium Chloride Carbon Dioxide BUN Creatinine Glucose POC Glucose 356 H 267 H 243 H Hemoglobin A1c Lactic Acid Calcium Phosphorus Magnesium Direct Bilirubin AST ALT C-Reactive Protein Total Protein Albumin Urine WBC (Auto) Salicylates Acetaminophen Heparin-induced Plt Ab
== END 2018-11-26 20:26 | DRG 4 ==
LOC: ED 08:08 → CC1 12:42
PROVIDERS: ADMIT Internal Medicine; ATTEND Internal Medicine
PROC: 5A1955Z Respiratory Ventilation, Greater than 96 Consecutive Hours (ICD-10-PCS; principal; 2018-11-06)
PROC: 0BH17EZ Insertion of Endotracheal Airway into Trachea, Via Natural or Artificial Opening (ICD-10-PCS; 2018-11-06)
PROC: 5A12012 Performance of Cardiac Output, Single, Manual (ICD-10-PCS; 2018-11-06)
PROC: 4A033R1 Measurement of Arterial Saturation, Peripheral, Percutaneous Approach (ICD-10-PCS; 2018-11-06)
PROC: 02HV33Z Insertion of Infusion Device into Superior Vena Cava, Percutaneous Approach (ICD-10-PCS; 2018-11-06)
PROC: B548ZZA Ultrasonography of Superior Vena Cava, Guidance (ICD-10-PCS; 2018-11-06)
PROC: 5A1D70Z Performance of Urinary Filtration, Intermittent, Less than 6 Hours Per Day (ICD-10-PCS; 2018-11-07)
PROC: 5A1D70Z Performance of Urinary Filtration, Intermittent, Less than 6 Hours Per Day (ICD-10-PCS; 2018-11-09)
PROC: 5A1D70Z Performance of Urinary Filtration, Intermittent, Less than 6 Hours Per Day (ICD-10-PCS; 2018-11-10)
PROC: 5A1D70Z Performance of Urinary Filtration, Intermittent, Less than 6 Hours Per Day (ICD-10-PCS; 2018-11-11)
PROC: 05HY33Z Insertion of Infusion Device into Upper Vein, Percutaneous Approach (ICD-10-PCS; 2018-11-12)
PROC: 5A1D70Z Performance of Urinary Filtration, Intermittent, Less than 6 Hours Per Day (ICD-10-PCS; 2018-11-13)
PROC: 5A1D70Z Performance of Urinary Filtration, Intermittent, Less than 6 Hours Per Day (ICD-10-PCS; 2018-11-14)
PROC: 5A1D70Z Performance of Urinary Filtration, Intermittent, Less than 6 Hours Per Day (ICD-10-PCS; 2018-11-16)
PROC: 5A1D70Z Performance of Urinary Filtration, Intermittent, Less than 6 Hours Per Day (ICD-10-PCS; 2018-11-17)
PROC: 0B113F4 Bypass Trachea to Cutaneous with Tracheostomy Device, Percutaneous Approach (ICD-10-PCS; 2018-11-19)
PROC: 5A1D70Z Performance of Urinary Filtration, Intermittent, Less than 6 Hours Per Day (ICD-10-PCS; 2018-11-19)
PROC: 0BJ08ZZ Inspection of Tracheobronchial Tree, Via Natural or Artificial Opening Endoscopic (ICD-10-PCS; 2018-11-19)
PROC: 0DH63UZ Insertion of Feeding Device into Stomach, Percutaneous Approach (ICD-10-PCS; 2018-11-19)
PROC: 5A1D70Z Performance of Urinary Filtration, Intermittent, Less than 6 Hours Per Day (ICD-10-PCS; 2018-11-20)
PROC: 5A1D70Z Performance of Urinary Filtration, Intermittent, Less than 6 Hours Per Day (ICD-10-PCS; 2018-11-21)
PROC: 5A1D70Z Performance of Urinary Filtration, Intermittent, Less than 6 Hours Per Day (ICD-10-PCS; 2018-11-24)
PROC: 5A1D70Z Performance of Urinary Filtration, Intermittent, Less than 6 Hours Per Day (ICD-10-PCS; 2018-11-26)
DX: A41.9 Sepsis, unspecified organism (principal); J96.01 Acute respiratory failure with hypoxia; J96.90 Respiratory failure, unspecified, unspecified whether with hypoxia or hypercapnia; N17.0 Acute kidney failure with tubular necrosis; E43 Unspecified severe protein-calorie malnutrition; G93.1 Anoxic brain damage, not elsewhere classified; N18.6 End stage renal disease; R65.21 Severe sepsis with septic shock; N39.0 Urinary tract infection, site not specified; E11.22 Type 2 diabetes mellitus with diabetic chronic kidney disease; E11.11 Type 2 diabetes mellitus with ketoacidosis with coma; E87.5 Hyperkalemia; E83.39 Other disorders of phosphorus metabolism; E87.1 Hypo-osmolality and hyponatremia; D50.9 Iron deficiency anemia, unspecified; K72.00 Acute and subacute hepatic failure without coma; E11.51 Type 2 diabetes mellitus with diabetic peripheral angiopathy without gangrene; G40.909 Epilepsy, unspecified, not intractable, without status epilepticus; R57.0 Cardiogenic shock; D69.6 Thrombocytopenia, unspecified; D63.8 Anemia in other chronic diseases classified elsewhere; E87.0 Hyperosmolality and hypernatremia; I50.9 Heart failure, unspecified; G93.49 Other encephalopathy; I13.2 Hypertensive heart and chronic kidney disease with heart failure and with stage 5 chronic kidney disease, or end stage renal disease; B96.5 Pseudomonas (aeruginosa) (mallei) (pseudomallei) as the cause of diseases classified elsewhere; F17.210 Nicotine dependence, cigarettes, uncomplicated; Z95.828 Presence of other vascular implants and grafts; Z68.28 Body mass index [BMI] 28.0-28.9, adult; Z83.3 Family history of diabetes mellitus; Z82.49 Family history of ischemic heart disease and other diseases of the circulatory system; Z89.431 Acquired absence of right foot; Z79.84 Long term (current) use of oral hypoglycemic drugs; Z99.2 Dependence on renal dialysis; Z99.11 Dependence on respirator [ventilator] status
CPT/HCPCS: 31500; 36415; 36600; 36620; 70450; 70486; 70551; 71045; 74018; 76770; 80048; 80053; 80074; 80076; 80202; 80307; 80320; 81001; 82140; 82270; 82550; 82803; 82805; 82947; 82962; 83036; 83735; 84100; 84132; 84484; 85007; 85025; 85027; 86022; 86140; 86850; 86900; 86901; 87040; 87070; 87076; 87086; 87186; 87205; 93005; 93010; 93306; 93970; 94002; 94003; 94760; 95819; 96365; 96375; 99292; G0378; C9113; G0480; J0171; J0360; J0610; J0692; J0696; J0885; J1815; J1953; J2060; J2185; J2250; J2543; J2704; J3010; J3370; J3480; J7030; J7040; J7050; J7070; Q0161